=== PATIENT | female | born 1940 | race Hispanic/Latino ===

== ENCOUNTER 2016-11-05 20:42 | Inpatient (IN) | payer MEDICARE ==
[2016-11-05 20:42] VITALS: BMI 32.1
[2016-11-05] MEDS ORDERED: Sodium Chloride 0.9% 1,000 ML IV STA (21:06)
--- NOTE | 2016-11-05 21:14 | ED PDOC ---
Upper Extremity Pain/Injury Time Seen by Provider: 11/05/16 20:51 Chief Complaint (Nursing): Finger,Hand,&Wrist Chief Complaint (Provider): fall-injury History Per: Patient History/Exam Limitations: no limitations Additional Complaint(s): 76yo F in ED for eval of left wrist injury sustained today after a trip and fall down one step going home-pt states she cane in one hand and bag of ice c ream in the other. pt admits to head injury-denies: LOC, dizziness, change in mentation speech, gait, weakness ,numbness vision changes. pt states she injured her left wrist-unable to range wrist due to pain no numbness/tingling to wrist. right hand dominant. pt with hx of DM-admits to eating sweets and soda prior to ED arrival. Past Medical History Reviewed: Historical Data, Nursing Documentation, Vital Signs Vital Signs: Last Vital Signs Temp 99 F 11/05/16 20:46 Pulse 97 H 11/05/16 20:46 Resp 20 11/05/16 20:46 BP 134/69 11/05/16 20:46 Pulse Ox 98 11/05/16 20:46 - Medical History PMH: Anxiety, Arthritis, COPD, Depression, Diabetes (type II), HTN, Hypercholesterolemia, Chronic Kidney Disease Denies: HIV - Surgical History Surgical History: Tonsillectomy - Family History Family History: States: Unknown Family Hx - Home Medications Home Medications: Ambulatory Orders Medication Instructions Recorded Aspirin [Ecotrin] 81 mg PO DAILY #0 tabec 11/15/15 Atorvastatin [Lipitor] 40 mg PO DAILY #0 tab 11/15/15 Cyanocobalamin [Vitamin B12 1000 1 tab PO DAILY #0 tab 11/15/15 mcg Tab] Metoprolol Tartrate [Lopressor] 12.5 mg PO Q12 #0 tab 11/15/15 Multimineral/Multivitamin 1 tab PO DAILY #0 tab 11/15/15 [Therapeutic-M Tab] Multivit-Min/FA/Lycopen/Lutein 1 tab PO DAILY #0 tablet 11/15/15 [Centrum Silver Tablet] Repaglinide [Prandin] 2 mg PO TIDWM #0 tab 11/15/15 Valsartan [Diovan] 80 mg PO DAILY #0 tab 11/15/15 Sevelamer Carbonate [Renvela] 800 mg PO TID 01/04/16 Acetaminophen [Tylenol 325mg tab] 650 mg PO Q6H PRN #0 tab 01/08/16 PARoxetine [Paxil] 20 mg PO DAILY #0 tab 01/08/16 Cyanocobalamin [Vitamin B12 100 100 mcg PO DAILY 08/31/16 mcg Tab] Multivit-Min/Iron/Folic/Lutein 1 tab PO DAILY 08/31/16 [Centrum Silver Women Tablet] Potassium Chloride [K-Dur 20 mEq 20 meq PO DAILY 08/31/16 ER Tab] Sodium Bicarbonate Tab [Sodium 650 mg PO DAILY 08/31/16 Bicarbonate Tab] Ferrous Sulfate [Feosol] 325 mg PO BID #60 tab 09/03/16 GlipiZIDE SR [Glucotrol XL] 10 mg PO ACBD@0730,1630 #60 tab 09/03/16 Insulin Detemir [Levemir] 24 units SC HS #1 vial 09/03/16 Insulin Lispro [Humalog Kwikpen 12 unit SQ AC #1 insuln.pen 09/03/16 U-100] Nitrofurantoin Macrocrystals 100 mg PO BID 7 Days 09/03/16 [Macrobid] Pen Needle, Diabetic [Insulin Pen 1 each MC ACHS #90 dis.needle 09/03/16 Needle] - Allergies Allergies/Adverse Reactions: Allergies Allergy/AdvReac Type Severity Reaction Status Date / Time No Known Allergies Allergy Verified 01/04/16 20:19 Review of Systems ROS Statement: Except As Marked, All Systems Reviewed And Found Negative Constitutional: Negative for: Fever, Chills, Weakness, Malaise Eyes: Negative for: Vision Change Cardiovascular: Negative for: Chest Pain, Palpitations, Orthopnea Respiratory: Negative for: Cough, Shortness of Breath, Hemoptysis Gastrointestinal: Negative for: Nausea, Vomiting Neurological: Negative for: Weakness, Numbness, Incoordination, Change in Speech , Confusion, Seizures, Altered Mental Status, Headache, Dizziness Physical Exam - Reviewed Nursing Documentation Reviewed: Yes Vital Signs Reviewed: Yes - Physical Exam Appears: Positive for: Non-toxic, No Acute Distress, Uncomfortable Head Exam: Positive for: NORMAL INSPECTION, NORMOCEPHALIC. Negative for: ATRAUMATIC (hemtoma noted to occiptal area with abrasion nontender. ) Skin: Positive for: Normal Color, Warm, DRY Eye Exam: Positive for: EOMI, Normal appearance, PERRL Neck: Positive for: Normal, Painless ROM Cardiovascular/Chest: Positive for: Regular Rate, Rhythm Respiratory: Positive for: CNT, Normal Breath Sounds Back: Positive for: Normal Inspection Extremity: Positive for: Other (left UE: wrist-tenderness dec ROM at wirst, and pain with ROM of fingers. 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 Negative for: Motor/Sensory Deficits - Laboratory Results Result Diagrams: 11/05/16 22:09 11/05/16 22:09 - ECG O2 Sat by Pulse Oximetry: 98 - Radiology X-Ray: Interpreted by Me X-Ray Interpretation: Fracture (to radius -code ortho) - Progress ED Course And Treament: EKG, FS, and xray FS>500- however did eat ice cream and soda prior to ED arrival. will given 1 Liter of NS and get CBC/CMP/VBG Pt with distal radial fracture-will contact ESTELITA Ceron MD - however unable to reach. pt will be admitted under family medicine due to uncontrolled blood sugar , pt was given 6 units of insulin FS improved to <400. reduction attempted to wrist however not fully reduced/aligned. pt will be admitted for orthopedic eval due to poor healing potential since she is a diabetics. pt also with abnormal BUN/Creatine and abnormal VBG-no evidence of DKA at this time. Medical Decision Making Medical Decision Making: pt will be admitted to family medicine due to high blood sugar(uncontrolled DM) and distal radial fx. Disposition - Clinical Impression Clinical Impression: Uncontrolled diabetes mellitus, Distal radial fracture - Patient ED Disposition Is Patient to be Admitted: Yes - Disposition Disposition Time: 00:39 Condition: FAIR - Pt Status Changed To: Hospital Disposition Of: Inpatient - Admit Certification Admit to Inpatient:: After my assessment, the patient will require hospitalization for at least two midnights. This is because of the severity of symptoms shown, intensity of services needed, and/or the medical risk in this patient being treated as an outpatient. - POA Present On Arrival: Poor Glycemic Control
[2016-11-05 22:15] LABS: VENOUS BLOOD GAS BASE EXCESS -8.6 mmol/L (0.0-2.0); VENOUS BLOOD GAS PCO2 37 mmHg (40-60); VENOUS BLOOD PH 7.28 (7.32-7.43)
[2016-11-05 22:16] LABS: BASO # 0.1 K/uL (0.0-0.2); BASO % 0.5 % (0.0-2.0); EOS # 0.1 K/uL (0.0-0.7); EOS % 1.3 % (0.0-4.0); HEMATOCRIT 35.2 % (34.0-47.0); LYMPH # 1.5 K/uL (1.0-4.3); LYMPH % 14.2 % (20.0-40.0); MEAN CELL VOLUME 83.2 fl (81.0-99.0); MEAN CORPUSCULAR HEMOGLOBIN 26.5 pg (27.0-31.0); MEAN CORPUSCULAR HGB CONC 31.8 g/dL (33.0-37.0); MEAN PLATELET VOLUME 8.1 fl (7.2-11.7); MONO # 1.2 K/uL (0.0-0.8); MONO % 11.5 % (0.0-10.0); NEUT # 7.7 K/uL (1.8-7.0); NEUT % 72.5 % (50.0-75.0); NRBC % 0.1 % (0.0-0.0); RED CELL DISTRIBUTION WIDTH 14.1 % (11.5-14.5); WHITE BLOOD COUNT 10.6 K/uL (4.8-10.8)
[2016-11-05 22:24] LABS: ALB/GLOB RATIO 0.9 (1.0-2.1); BILIRUBIN,TOTAL 0.3 mg/dl (0.2-1.3); CALCIUM 9.4 mg/dL (8.4-10.2); POTASSIUM 5.2 MMOL/L (3.6-5.0); TOTAL PROTEIN 7.3 G/DL (6.3-8.2)
[2016-11-05] MEDS ORDERED: Insulin Regular 100 units/ml IV STA (22:41)
[2016-11-05] MEDS ORDERED: Insulin Regular 100 units/ml ONE (22:45)
[2016-11-06] MEDS ORDERED: Glucagon Recombinant 1 mg Inj IM PRN (01:37)
[2016-11-06] MEDS ORDERED: Dextrose 50% SYRINGE Inj (50 ml) IV PRN (01:37)
[2016-11-06] MEDS ORDERED: Sodium Chloride 0.9% 1,000 ML IV SCH (01:45)
--- NOTE | 2016-11-06 01:55 | CP.PCM.HP ---
History of Present Illness - History of Present Illness History of Present Illness: 75 yo F with PMHx HLD, COPD, Anxiety/Depression, CKD, HTN, DM II presented to ED after fall onto left wrist after a trip and fall down one step going home. Patient states she had cane in one hand and bag of ice cream in the other. Patient admits to head injury though denies LOC, dizziness, change in mentation speech, gait, weakness, numbness, vision changes. Left wrist with pain limiting motion though no numbness/tingling (patient is right hand dominant). Patient was also found to have hyperglycemia and hyperkalemia. Patient admits to eating sweets and soda prior to ED arrival. Patient has NOT been using insulin at home due to "don't know how to use the insulin". Denies chest pain, abdominal pain, nausea, vomiting, dyspnea. PMD: Dr. Ceron Meds: as per chart Allergies: NKDA Surgeries: none Family hx: non-contributory Social: denies smoking, EtOH, drugs. 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 Alternate using cane or walker to ambulate. ED Course: Vitals stable EKG, FS, and xray ordered FS>500 1 Liter of NS and CBC/CMP/VBG ordered Xray notable for distal radial fracture of left upper extremity. Pt was given 10 units of insulin FS improved to 314. VBG not indicative of DKA. Reduction attempted to wrist however not fully reduced/aligned. Dr. Carrizales was contacted by ED, recommended CT Scan and will evaluate patient tomorrow. Abnormal BUN/Creatinine 35/2.7, worsened than previous readings, asymptomatic Present on Admission - Present on Admission Any Indicators Present on Admission: Yes History of Uncontrolled Diabetes: Yes Review of Systems - Review of Systems All systems: reviewed and no additional remarkable complaints except (as mentioned per HPI) Past Patient History - Infectious Disease Hx of Infectious Diseases: None - Past Medical History & Family History Past Medical History?: Yes - Past Social History Smoking Status: Never Smoked - CARDIAC Hx Cardiac Disorders: Yes - PULMONARY Hx Chronic Obstructive Pulmonary Disease (COPD): Yes - NEUROLOGICAL Hx Neurological Disorder: No - HEENT Hx HEENT Problems: No - RENAL Hx Chronic Kidney Disease: Yes - ENDOCRINE/METABOLIC Hx Endocrine Disorders: Yes - HEMATOLOGICAL/ONCOLOGICAL Hx Human Immunodeficiency Virus (HIV): No - INTEGUMENTARY Hx Dermatological Problems: No - MUSCULOSKELETAL/RHEUMATOLOGICAL Hx Arthritis: Yes - GASTROINTESTINAL Hx Gastrointestinal Disorders: No - GENITOURINARY/GYNECOLOGICAL Hx Genitourinary Disorders: No - PSYCHIATRIC Hx Anxiety: Yes Hx Depression: Yes - SURGICAL HISTORY Hx Tonsillectomy: Yes - ANESTHESIA Hx Anesthesia: No Hx Anesthesia Reactions: No Hx Malignant Hyperthermia: No Meds Allergies/Adverse Reactions: Allergies Allergy/AdvReac Type Severity Reaction Status Date / Time No Known Allergies Allergy Verified 01/04/16 20:19 Physical Exam - Constitutional Appears: Well, Non-toxic, No Acute Distress - Head Exam Head Exam: NORMAL INSPECTION, NORMOCEPHALIC Additional comments: hematoma noted to left occiptal area with abrasion nontender. - Eye Exam Eye Exam: EOMI, Normal appearance, PERRL - ENT Exam ENT Exam: Mucous Membranes Moist - Neck Exam Neck exam: Positive for: Normal Inspection - Respiratory Exam Respiratory Exam: Clear to Auscultation Bilateral, NORMAL BREATHING PATTERN. absent: Decreased Breath Sounds, Rales, Rhonchi, Wheezes - Cardiovascular Exam Cardiovascular Exam: RRR, +S1, +S2 - GI/Abdominal Exam GI & Abdominal Exam: Normal Bowel Sounds, Soft. absent: Tenderness - Extremities Exam Extremities exam: Positive for: normal inspection. Negative for: calf tenderness, pedal edema - Expanded Upper Extremities Exam Left Forearm Wrist exam: absent: full ROM (left forearm splinted, able to move fingers, cap refill normal, sensation intact) - Back Exam Back exam: NORMAL INSPECTION - Neurological Exam Neurological exam: Alert, Oriented x3 - Psychiatric Exam Psychiatric exam: Normal Affect, Normal Mood - Skin Skin Exam: Dry, Intact, Normal Color, Warm Results - Vital Signs Recent Vital Signs: Last Vital Signs Temp 98.1 F 11/06/16 01:16 Pulse 73 11/06/16 01:16 Resp 15 11/06/16 01:16 BP 103/57 L 11/06/16 01:16 Pulse Ox 96 11/06/16 00:45 - Labs Result Diagrams: 11/05/16 22:09 11/05/16 22:09 Assessment & Plan - Assessment and Plan (Free Text) Assessment: 75 yo F with PMHx HLD, COPD, Anxiety/Depression, CKD (Stage 4), HTN, DM II admitted for hyperglycemia and hyperkalemia with left distal radial fracture. Plan: DM II/hyperglycemia -Asymptomatic, non-compliant with insulin therapy, most recent POC 314 -No evidence of DKA -accuchecks/ACHS -SSI -Most recent HgbA1c: 13.6 -NPO until surgeon evaluates and if permissible, diabetic consistent diet -clinical unit educator and endocrinology consult to be considered -Will restart home meds at this time Hyperkalemia - Mild - Insulin to decrease potassium - If continues to be elevated consider other modalities of treatment Left distal radial fracture - Neurovascular intact, failed attempt at reduction at bedside. - Tylenol/Morphine PRN pain - f/u official reads of xrays - Ortho consulted, Dr. Carrizales, appreciate recommendations - PT eval/treat CKD (Stage 4) -Acute on Chronic presentation with increase in BUN/Cr and hyperkalemia on admission -Hydrate via NS HTN -Controlled stable at this time -c/w home meds HLD -c/w statin Anxiety/Depression -Controlled, stable -c/w home meds DVT ppx -SCDs for now until evaluation of surgeon - Date & Time Date: 11/06/16 Time: 02:06
--- NOTE | 2016-11-06 02:12 | CT ---
EXAM: CT Left Upper Extremity Without Intravenous Contrast, Wrist CLINICAL HISTORY: 76 years old, female; Injury or trauma; Fall; Initial encounter; Blunt trauma (contusions or hematomas and fracture, traumatic injury; Closed fracture; Wrist; Left; Bone fracture not specified; Additional info: Wrist fracture TECHNIQUE: Axial computed tomography images of the left wrist without intravenous contrast. This CT exam was performed using one or more of the following dose reduction techniques: automated exposure control, adjustment of the mA and/or kV according to patient size, and/or use of iterative reconstruction technique. Coronal and sagittal reformatted images were created and reviewed. COMPARISON: No relevant prior studies available. FINDINGS: Bones/joints: Comminuted extraarticular fracture distal radial metaphysis. Posterior and lateral displacement of principle fracture fragment. Mild impaction of fracture site. Displaced avulsion fractures of ulnar styloid. Tiny avulsion fracture or calcification along triquetrum. Small ossicle dorsal to scaphoid. Moderate to severe degenerative changes of first carpometacarpal joint. Small cysts within scaphoid. No dislocation. Soft tissues: Soft tissue swelling/stranding about wrist. IMPRESSION: 1. Distal radial and ulnar fractures. 2. Incidental/non-acute findings are described above.
[2016-11-06 06:43] LABS: RBC URINE 203 /hpf (0-3); URINE BACTERIA MOD (<OCC); URINE BILIRUBIN NEGATIVE (NEGATIVE); URINE BLOOD MODERATE (NEGATIVE); URINE GLUCOSE (UA) >=500 mg/dL (Normal); URINE KETONE NEGATIVE (NEGATIVE); URINE LEUKOCYTE ESTERASE MOD Leu/uL (Negative); URINE PROTEIN 100 mg/dL (NEGATIVE); URINE UROBILINOGEN 0.2-1.0 mg/dL (0.2-1.0); WBC CLUMPS MANY /hpf; WBC URINE 13963 /hpf (0-5)
[2016-11-06 06:44] LABS: URINE COLOR YELLOW (YELLOW)
[2016-11-06] MEDS: Insulin Regular 100 units/ml SC SCH ×5 (07:53→21:34)
[2016-11-06 08:20] LABS: BASO # 0.1 K/uL (0.0-0.2); BASO % 0.6 % (0.0-2.0); EOS # 0.2 K/uL (0.0-0.7); EOS % 1.6 % (0.0-4.0); LYMPH # 2.7 K/uL (1.0-4.3); LYMPH % 23.8 % (20.0-40.0); MEAN CELL VOLUME 82.8 fl (81.0-99.0); MEAN CORPUSCULAR HEMOGLOBIN 26.3 pg (27.0-31.0); MEAN CORPUSCULAR HGB CONC 31.8 g/dL (33.0-37.0); MEAN PLATELET VOLUME 8.3 fl (7.2-11.7); MONO # 1.2 K/uL (0.0-0.8); MONO % 10.7 % (0.0-10.0); NEUT # 7.1 K/uL (1.8-7.0); NEUT % 63.3 % (50.0-75.0); RED CELL DISTRIBUTION WIDTH 13.9 % (11.5-14.5); WHITE BLOOD COUNT 11.3 K/uL (4.8-10.8)
[2016-11-06 08:39] LABS: ALB/GLOB RATIO 0.9 (1.0-2.1); BILIRUBIN,TOTAL 0.3 mg/dl (0.2-1.3); CALCIUM 9.4 mg/dL (8.4-10.2); TOTAL PROTEIN 7.3 G/DL (6.3-8.2)
--- NOTE | 2016-11-06 08:40 | RAD ---
PROCEDURE: Right Wrist Radiographs. HISTORY: wrist pain COMPARISON: None. FINDINGS: BONES: Impaction fracture of the distal radius with dorsal angulation. JOINTS: Normal. No dislocation. SOFT TISSUES: Normal. OTHER FINDINGS: None. IMPRESSION: Impaction fracture of the distal radius with dorsal angulation.
--- NOTE | 2016-11-06 09:36 | RAD ---
PROCEDURE: Right Wrist Radiographs. HISTORY: post reduction COMPARISON: None. FINDINGS: BONES: POst casting of dislaced distal radius fractre. JOINTS: Normal. No dislocation. SOFT TISSUES: Normal. OTHER FINDINGS: None. IMPRESSION: POst casting of dislaced distal radius fractre.
--- NOTE | 2016-11-06 09:45 | CP.PCM.CON ---
History of Present Illness - History of Present Illness History of Present Illness: ID: 76 yo female CC: L wrist pain HPI 9 yo female wioth hx of diabetes sustained A FOOSH injury last PM. No LOC, no neurologic concomitants. Pt presents with p[aim amd restircted ROM L wrist. and deformity. Xrays reveal displaced/angulated distal radius fx Pt also with signs of decreasedd sensation 1st 3 fingers L hand. Pt splionted at time of encouinter. Past Patient History - Infectious Disease Hx of Infectious Diseases: None - Past Medical History & Family History Past Medical History?: Yes - Past Social History Smoking Status: Former Smoker - CARDIAC Hx Cardiac Disorders: Yes Hx Hypercholesterolemia: Yes Hx Hypertension: Yes - PULMONARY Hx Respiratory Disorders: Yes Hx Chronic Obstructive Pulmonary Disease (COPD): Yes Hx Pneumonia: Yes - NEUROLOGICAL Hx Neurological Disorder: No - HEENT Hx HEENT Problems: Yes Other/Comment: uses eye glasses - RENAL Hx Chronic Kidney Disease: Yes Other/Comment: Chronic kidney disease - ENDOCRINE/METABOLIC Hx Endocrine Disorders: Yes Hx Diabetes Mellitus Type 2: Yes - HEMATOLOGICAL/ONCOLOGICAL Hx Blood Disorders: No Hx Human Immunodeficiency Virus (HIV): No - INTEGUMENTARY Hx Dermatological Problems: No - MUSCULOSKELETAL/RHEUMATOLOGICAL Hx Musculoskeletal Disorders: Yes Hx Falls: Yes - GASTROINTESTINAL Hx Gastrointestinal Disorders: No - GENITOURINARY/GYNECOLOGICAL Hx Genitourinary Disorders: No - PSYCHIATRIC Hx Psychophysiologic Disorder: No Hx Substance Use: No - SURGICAL HISTORY Hx Surgeries: Yes Hx Tonsillectomy: Yes - ANESTHESIA Hx Anesthesia: No Hx Anesthesia Reactions: No Hx Malignant Hyperthermia: No Meds Allergies/Adverse Reactions: Allergies Allergy/AdvReac Type Severity Reaction Status Date / Time No Known Allergies Allergy Verified 01/04/16 20:19 - Medications Medications: Current Medications Acetaminophen (Tylenol 325mg Tab) 650 mg PO Q6 PRN PRN Reason: Pain, Mild (1-3) Atorvastatin Calcium (Lipitor) 40 mg PO DAILY [place] Last Admin: 11/06/16 08:49 Dose: Not Given Dextrose (Dextrose 50% Inj) 0 ml IV STAT PRN; Protocol PRN Reason: Hyglycemia Protocol Dextrose (Glutose 15) 0 gm PO ONCE PRN; Protocol PRN Reason: Hypoglycemia Protocol Glucagon (Glucagen Diagnostic Kit) 0 mg IM STAT PRN; Protocol PRN Reason: Hypoglycemia Protocol Sodium Chloride (Sodium Chloride 0.9%) 1,000 mls @ 125 mls/hr IV .Q8H [facility] Last Admin: 11/06/16 03:34 Dose: 125 mls/hr Insulin Human Regular (Humulin R) 0 units SC ACHS [place] PRN Reason: Protocol Last Admin: 11/06/16 07:53 Dose: 4 unit Morphine Sulfate (Morphine) 2 mg IVP Q4 PRN PRN Reason: Pain, moderate (4-7) Last Admin: 11/06/16 09:10 Dose: 2 mg Morphine Sulfate (Morphine) 4 mg IVP Q6 PRN PRN Reason: Pain, severe (8-10) Last Admin: 11/06/16 01:03 Dose: 4 mg Paroxetine HCl (Paxil) 20 mg PO DAILY [facility] Last Admin: 11/06/16 08:48 Dose: Not Given Valsartan (Diovan) 80 mg PO DAILY [facility] Last Admin: 11/06/16 09:04 Dose: Not Given Physical Exam - Expanded Skin Exam Expanded Description of Rash: Fluctuant, Purpura - Additional Findings Additional findings: Musculoskeltal Exam stance/gait- deferred encounter accomplished at bedside N/V intact L forearm/wrist splinted in volar splint pot with hypesthesia first threee fingers L habd Imp Coimminuted/dispaced L distal radius fx carpal tunnel syndrome L wrist ( post traumatic) Results - Vital Signs Recent Vital Signs: Last Vital Signs Temp 97.8 F 11/06/16 07:29 Pulse 75 11/06/16 07:29 Resp 18 11/06/16 07:29 BP 123/66 11/06/16 07:29 Pulse Ox 99 11/06/16 07:29 - Labs Result Diagrams: 11/06/16 06:30 11/06/16 06:00 Labs: Laboratory Results - last 24 hr 11/06/16 11/06/16 11/06/16 06:00 06:20 06:30 WBC 11.3 H RBC 4.23 Hgb 11.1 L Hct 35.0 MCV 82.8 MCH 26.3 L MCHC 31.8 L RDW 13.9 Plt Count 355 MPV 8.3 Neut % (Auto) 63.3 Lymph % (Auto) 23.8 [place] % (Auto) 10.7 H Eos % (Auto) 1.6 Baso % (Auto) 0.6 Neut # 7.1 H Lymph # 2.7 [place] # 1.2 H Eos # 0.2 Baso # 0.1 PT INR APTT Sodium 136 Potassium 5.0 Chloride 108 H Carbon Dioxide 17 L Anion Gap 16 BUN 33 H Creatinine 2.6 H Est GFR ( Amer) 22 Est GFR (Non-Af Amer) 18 POC Glucose (mg/dL) Random Glucose 247 H Calcium 9.4 Total Bilirubin 0.3 AST 16 ALT 19 Alkaline Phosphatase 119 Total Protein 7.3 Albumin 3.5 Globulin 3.8 Albumin/Globulin Ratio 0.9 L Urine Color Yellow Urine Clarity Turbid Urine pH 6.0 Ur Specific [place] 1.007 Urine Protein 100 Urine Glucose (UA) >=500 Urine Ketones Negative Urine Blood Moderate Urine Nitrate Negative Urine Bilirubin Negative Urine Urobilinogen 0.2-1.0 Ur Leukocyte Esterase Mod Urine RBC (Auto) 203 H Urine WBC Clumps (Auto) Many H Urine Microscopic WBC 35446 H Urine Bacteria Mod H Urine Yeast (Budding) Many H 11/06/16 11/06/16 06:30 06:38 WBC RBC Hgb Hct MCV MCH MCHC RDW Plt Count MPV Neut % (Auto) Lymph % (Auto) [place] % (Auto) Eos % (Auto) Baso % (Auto) Neut # Lymph # [place] # Eos # Baso # PT 10.0 INR 0.96 APTT 31.0 Sodium Potassium Chloride Carbon Dioxide Anion Gap BUN Creatinine Est GFR ( Amer) Est GFR (Non-Af Amer) POC Glucose (mg/dL) 260 H Random Glucose Calcium Total Bilirubin AST ALT Alkaline Phosphatase Total Protein Albumin Globulin Albumin/Globulin Ratio Urine Color Urine Clarity Urine pH Ur Specific [place] Urine Protein Urine Glucose (UA) Urine Ketones Urine Blood Urine Nitrate Urine Bilirubin Urine Urobilinogen Ur Leukocyte Esterase Urine RBC (Auto) Urine WBC Clumps (Auto) Urine Microscopic WBC Urine Bacteria Urine Yeast (Budding) - Impressions Impression: Imaging: CT scan- reveals displaced/comminutyed distal radius fx Assessment & Plan - Assessment and Plan (Free Text) Assessment: A-0 displaced/comminuted distal radius fx P- to OR for ORIF displaced/comminuted distal radius fx To OR when cleared by DR Woody/Romo pros cons risk and befiots of ORIF displaced distal radius fx discussed at [facility] with pt informed consdent obtained Various treartmentsd discussed advantages of ORIF dsisplaced distal radfius fx and carpal tunnel release discussed at legnth To OR when cleared medically
[2016-11-06] MEDS ORDERED: Docusate-Senna 50 mg-8.6 mg Tab PO PRN (10:17)
--- NOTE | 2016-11-06 10:22 | CARD ---
APPROVED REPORT EKG Measurement Heart [id number] DC 166P-3 [id number] <Conclusion> Normal sinus rhythm Inferior infarct, age undetermined Possible Anterior infarct, age undetermined Abnormal ECG
--- NOTE | 2016-11-06 11:11 | RAD ---
PROCEDURE: CHEST RADIOGRAPH, 1 VIEW HISTORY: clearance for surgery COMPARISON: None available. FINDINGS: LUNGS: Clear. PLEURA: No pneumothorax or pleural fluid seen. CARDIOVASCULAR: Normal. OSSEOUS STRUCTURES: No significant abnormalities. VISUALIZED UPPER ABDOMEN: Normal. OTHER FINDINGS: None. IMPRESSION: No active disease.
--- NOTE | 2016-11-06 11:25 | CP.PCM.PN ---
Subjective - Date & Time of Evaluation Date of Evaluation: 11/06/16 Time of Evaluation: 07:40 - Subjective Subjective: The patient is a 75 y/o woman w/ PMHx of HLD, COPD, Anxiety/Depression, CKD, HTN , DM II presented to ED after fall onto left wrist after a trip and fall down one step going home. The patient was seen this morning. There are no acute events overnight. The patient is not in acute distress. The patient complains only pain of her left hand where the fracture is located. The patient has a small bump on the left side on the back of her head but denies any pain. The patient has no other complaints. The patient denies headaches, dizziness, chest pain, dyspnea, abdominal pain, nausea, vomiting, diarrhea, dysuria, and fever. Objective - Vital Signs/Intake and Output Vital Signs (last 24 hours): Temp Pulse Resp BP Pulse Ox 97.8 F 75 18 123/66 99 11/06/16 07:29 11/06/16 07:29 11/06/16 07:29 11/06/16 07:29 11/06/16 07:29 - Medications Medications: Current Medications Acetaminophen (Tylenol 325mg Tab) 650 mg PO Q6 PRN PRN Reason: Pain, Mild (1-3) Atorvastatin Calcium (Lipitor) 40 mg PO DAILY [facility] Last Admin: 11/06/16 08:49 Dose: Not Given Dextrose (Dextrose 50% Inj) 0 ml IV STAT PRN; Protocol PRN Reason: Hyglycemia Protocol Dextrose (Glutose 15) 0 gm PO ONCE PRN; Protocol PRN Reason: Hypoglycemia Protocol Glucagon (Glucagen Diagnostic Kit) 0 mg IM STAT PRN; Protocol PRN Reason: Hypoglycemia Protocol Sodium Chloride (Sodium Chloride 0.9%) 1,000 mls @ 125 mls/hr IV .Q8H [facility] Last Admin: 11/06/16 03:34 Dose: 125 mls/hr Ceftriaxone Sodium 1 gm/ (Sodium Chloride) 100 mls @ 100 mls/hr IVPB DAILY [facility] Insulin Human Regular (Humulin R) 0 units SC ACHS [facility] PRN Reason: Protocol Last Admin: 11/06/16 07:53 Dose: 4 unit Morphine Sulfate (Morphine) 2 mg IVP Q4 PRN PRN Reason: Pain, moderate (4-7) Last Admin: 11/06/16 09:10 Dose: 2 mg Morphine Sulfate (Morphine) 4 mg IVP Q6 PRN PRN Reason: Pain, severe (8-10) Last Admin: 11/06/16 01:03 Dose: 4 mg Paroxetine HCl (Paxil) 20 mg PO DAILY [facility] Last Admin: 11/06/16 08:48 Dose: Not Given Senna/Docusate Sodium (Senokot S 50 Mg-8.6 Mg) 2 tab PO HS PRN PRN Reason: Constipation Valsartan (Diovan) 80 mg PO DAILY [facility] Last Admin: 11/06/16 09:04 Dose: Not Given - Labs Labs: 11/06/16 06:30 11/06/16 06:00 PT 10.0 SECONDS (9.6-11.2) 11/06/16 06:30 INR 0.96 (0.92-1.08) 11/06/16 06:30 APTT 31.0 SECONDS (23.3-32.5) 11/06/16 06:30 - Constitutional Appears: No Acute Distress - Head Exam Head Exam: NORMOCEPHALIC Additional comments: small bump on left occipital area, no laceration, no contusion - ENT Exam ENT Exam: Mucous Membranes Moist - Respiratory Exam Respiratory Exam: Clear to Ausculation Bilateral. absent: Accessory Muscle Use , Chest Wall Tenderness, Decreased Breath Sounds, Prolonged Expiratory Phase, Rales, Rhonchi, Wheezes, Respiratory Distress, Stridor - Cardiovascular Exam Cardiovascular Exam: REGULAR RHYTHM, RRR. absent: Tachycardia - GI/Abdominal Exam GI & Abdominal Exam: Soft, Normal Bowel Sounds. absent: Distended, Tenderness - Extremities Exam Extremities Exam: absent: Calf Tenderness, Tenderness - Neurological Exam Neurological Exam: Alert, Awake, Oriented x3 - Skin Skin Exam: Dry, Intact, Normal Color, Warm Assessment and Plan - Assessment and Plan (Free Text) Assessment: The patient is a 75 y/o woman w/ PMHx of HLD, COPD, Anxiety/Depression, CKD, HTN , DM II presented to ED after fall onto left wrist after a trip and fall down one step going home Plan: 1. Left distal radial fracture - Neurovascular intact, failed attempt at reduction at bedside. - Tylenol 650 mg PO Q6h prn for pain - Morphine 2 mg IV Q4h and 4 mg IV Q6 prn for pain - Percocet 2 tab PO Q4 prn - Wrist X-ray: displaced distal radius fracture - Ortho consulted, Dr. Carrizales, recommendations appreciated - PT eval/treat ordered - NPO after midnight for OR tomorrow - Cardiology consulted, Dr. Griffiths; recommendations appreciated, cleared for surgery - CXR: no active disease - Medically optimized, cleared by cardiology, receiving antibiotics, lovenox held, CXR, coags, and EKG WNL for surgery tomorrow 2. DM II/hyperglycemia - Asymptomatic, non-compliant with insulin therapy - fingerstick 232 - No evidence of DKA - accuchecks/ACHS - Medium dose SSI - HgbA1c 08/31/2016: 13.6 - heart healthy, moderate consistent carbohydrate diet 3. Hyperkalemia - resolved - Mild - Insulin to decrease potassium - K+: 5.0 4. Asymptomatic Bacturia - UA: neg nitrates, moderate leukocyte esterase, moderate bacteria - denies dysuria - ceftriaxone 1 gm IV daily 5. CKD (Stage 4) - Acute on Chronic - BUN/Cr: 33/2.6 - IVF NS @ 125mL/hr 6. HTN - Controlled, stable - continue with home meds: Valsartan 80 mg PO daily 7. HLD - continue with atorvastatin 40 mg PO daily 8. Anxiety/Depression - controlled, stable - continue with home meds: Paroxetine 20 mg PO daily 9. DVT ppx - SCDs - hold lovenox until after OR
[2016-11-06] MEDS ORDERED: Oxycodone/Acetaminophen 5/325 mg Tab PO PRN (11:41)
--- NOTE | 2016-11-06 12:19 | CP.PCM.CON ---
History of Present Illness - History of Present Illness History of Present Illness: THE PATIENT IS A 76 YEAR OLD FEMALE WHO TRIPPED ON THE STAIRS YESTERDAY AND FRACTURED HER LEFT WRIST. SHE ALSO HAS A HISTORY OF HYPERTENSION, HYPERLIPIDEMIA, DIABETES MELLITUS, CKD, ANEMIA AND COPD. SHE WAS ADMITTED TO [facility] LAST YEAR AND I WAS ASKED TO SEE HER FOR AN EKG THAT WAS READ AN OLD IWMI BUT SHE DENIED ANY CAD HISTORY. A NUCLEAR STRESS TEST AND AN ECHOCARDIOGRAM WERE DONE IN DECEMBER 2015 THAT WERE BOTH NEGATIVE. CARDIOLOGY IS ASKED TO SEE HER FOR PRE-OP CARDIAC CLEARANCE. SHE DENIES CHEST PAIN, PALPITATIONS, SOB OR LOC. Past Patient History - Infectious Disease Hx of Infectious Diseases: None - Past Medical History & Family History Past Medical History?: Yes - Past Social History Smoking Status: Former Smoker - CARDIAC Hx Cardiac Disorders: Yes Hx Hypercholesterolemia: Yes Hx Hypertension: Yes - PULMONARY Hx Respiratory Disorders: Yes Hx Chronic Obstructive Pulmonary Disease (COPD): Yes Hx Pneumonia: Yes - NEUROLOGICAL Hx Neurological Disorder: No - HEENT Hx HEENT Problems: Yes Other/Comment: uses eye glasses - RENAL Hx Chronic Kidney Disease: Yes Other/Comment: Chronic kidney disease - ENDOCRINE/METABOLIC Hx Endocrine Disorders: Yes Hx Diabetes Mellitus Type 2: Yes - HEMATOLOGICAL/ONCOLOGICAL Hx Blood Disorders: No Hx Human Immunodeficiency Virus (HIV): No - INTEGUMENTARY Hx Dermatological Problems: No - MUSCULOSKELETAL/RHEUMATOLOGICAL Hx Musculoskeletal Disorders: Yes Hx Falls: Yes - GASTROINTESTINAL Hx Gastrointestinal Disorders: No - GENITOURINARY/GYNECOLOGICAL Hx Genitourinary Disorders: No - PSYCHIATRIC Hx Psychophysiologic Disorder: No Hx Substance Use: No - SURGICAL HISTORY Hx Surgeries: Yes Hx Tonsillectomy: Yes - ANESTHESIA Hx Anesthesia: No Hx Anesthesia Reactions: No Hx Malignant Hyperthermia: No Meds Allergies/Adverse Reactions: Allergies Allergy/AdvReac Type Severity Reaction Status Date / Time No Known Allergies Allergy Verified 01/04/16 20:19 - Medications Medications: Current Medications Acetaminophen (Tylenol 325mg Tab) 650 mg PO Q6 PRN PRN Reason: Pain, Mild (1-3) Atorvastatin Calcium (Lipitor) 40 mg PO DAILY [facility] Last Admin: 11/06/16 11:55 Dose: 40 mg Dextrose (Dextrose 50% Inj) 0 ml IV STAT PRN; Protocol PRN Reason: Hyglycemia Protocol Dextrose (Glutose 15) 0 gm PO ONCE PRN; Protocol PRN Reason: Hypoglycemia Protocol Glucagon (Glucagen Diagnostic Kit) 0 mg IM STAT PRN; Protocol PRN Reason: Hypoglycemia Protocol Sodium Chloride (Sodium Chloride 0.9%) 1,000 mls @ 125 mls/hr IV .Q8H [facility] Last Admin: 11/06/16 03:34 Dose: 125 mls/hr Ceftriaxone Sodium 1 gm/ (Sodium Chloride) 100 mls @ 100 mls/hr IVPB DAILY [facility] Last Admin: 11/06/16 11:50 Dose: 100 mls/hr Insulin Human Regular (Humulin R) 0 units SC ACHS [facility] PRN Reason: Protocol Last Admin: 11/06/16 07:53 Dose: 4 unit Morphine Sulfate (Morphine) 2 mg IVP Q4 PRN PRN Reason: Pain, severe (8-10) Ondansetron HCl (Zofran Inj) 4 mg IVP Q4 PRN PRN Reason: Nausea/Vomiting Last Admin: 11/06/16 11:49 Dose: 4 mg Oxycodone/Acetaminophen (Percocet 5/325 Mg Tab) 2 tab PO Q4 PRN PRN Reason: Pain, moderate (4-7) Stop: 11/09/16 11:42 Paroxetine HCl (Paxil) 20 mg PO DAILY [facility] Last Admin: 11/06/16 11:55 Dose: 20 mg Senna/Docusate Sodium (Senokot S 50 Mg-8.6 Mg) 2 tab PO HS PRN PRN Reason: Constipation Valsartan (Diovan) 80 mg PO DAILY [facility] Last Admin: 11/06/16 11:54 Dose: 80 mg Physical Exam - Respiratory Exam Respiratory Exam: Clear to Auscultation Bilateral - Cardiovascular Exam Cardiovascular Exam: REGULAR RHYTHM, +S1, +S2 - Additional Findings Additional findings: EKG NSR(NO CHANGE FRON OLD EKGS READ POSSIBLE OLD IWMI BUT WORK-UP WAS NORMAL ) CXR NAD ECHO 12/23 LVEF OF 70% NUCLEAR STRESS TEST 12/23 NORMAL Results - Vital Signs Recent Vital Signs: Last Vital Signs Temp 97.8 F 11/06/16 07:29 Pulse 75 11/06/16 07:29 Resp 18 11/06/16 07:29 BP 123/66 11/06/16 07:29 Pulse Ox 99 11/06/16 07:29 - Labs Result Diagrams: 11/06/16 06:30 11/06/16 06:00 Labs: Laboratory Results - last 24 hr 11/06/16 11/06/16 11/06/16 06:00 06:20 06:30 WBC 11.3 H RBC 4.23 Hgb 11.1 L Hct 35.0 MCV 82.8 MCH 26.3 L MCHC 31.8 L RDW 13.9 Plt Count 355 MPV 8.3 Neut % (Auto) 63.3 Lymph % (Auto) 23.8 [place] % (Auto) 10.7 H Eos % (Auto) 1.6 Baso % (Auto) 0.6 Neut # 7.1 H Lymph # 2.7 [place] # 1.2 H Eos # 0.2 Baso # 0.1 PT INR APTT Sodium 136 Potassium 5.0 Chloride 108 H Carbon Dioxide 17 L Anion Gap 16 BUN 33 H Creatinine 2.6 H Est GFR ( Amer) 22 Est GFR (Non-Af Amer) 18 POC Glucose (mg/dL) Random Glucose 247 H Calcium 9.4 Total Bilirubin 0.3 AST 16 ALT 19 Alkaline Phosphatase 119 Total Protein 7.3 Albumin 3.5 Globulin 3.8 Albumin/Globulin Ratio 0.9 L Urine Color Yellow Urine Clarity Turbid Urine pH 6.0 Ur Specific [place] 1.007 Urine Protein 100 Urine Glucose (UA) >=500 Urine Ketones Negative Urine Blood Moderate Urine Nitrate Negative Urine Bilirubin Negative Urine Urobilinogen 0.2-1.0 Ur Leukocyte Esterase Mod Urine RBC (Auto) 203 H Urine WBC Clumps (Auto) Many H Urine Microscopic WBC 96284 H Urine Bacteria Mod H Urine Yeast (Budding) Many H 11/06/16 11/06/16 11/06/16 06:30 06:38 10:27 WBC RBC Hgb Hct MCV MCH MCHC RDW Plt Count MPV Neut % (Auto) Lymph % (Auto) [place] % (Auto) Eos % (Auto) Baso % (Auto) Neut # Lymph # [place] # Eos # Baso # PT 10.0 INR 0.96 APTT 31.0 Sodium Potassium Chloride Carbon Dioxide Anion Gap BUN Creatinine Est GFR ( Amer) Est GFR (Non-Af Amer) POC Glucose (mg/dL) 260 H 232 H Random Glucose Calcium Total Bilirubin AST ALT Alkaline Phosphatase Total Protein Albumin Globulin Albumin/Globulin Ratio Urine Color Urine Clarity Urine pH Ur Specific [place] Urine Protein Urine Glucose (UA) Urine Ketones Urine Blood Urine Nitrate Urine Bilirubin Urine Urobilinogen Ur Leukocyte Esterase Urine RBC (Auto) Urine WBC Clumps (Auto) Urine Microscopic WBC Urine Bacteria Urine Yeast (Budding) Assessment & Plan - Assessment and Plan (Free Text) Assessment: FALL WITH LEFT WRIST FRACTURE HYPERTENSION HYPERLIPIDEMIA DM CKD STABLE CARDIAC STATUS Plan: CONTINUE DIOVAN AND ATORVASTATIN THE PATIENT IS CLEARED FROM THE CARDIAC STANDPOINT FOR ORTHOPEDIC SURGERY
[2016-11-07] MEDS: Sodium Chloride 0.9% 1,000 ML IV SCH ×3 (00:33→23:25)
[2016-11-07] MEDS: Insulin Regular 100 units/ml SC SCH ×4 (06:42→22:00)
[2016-11-07 07:18] LABS: BASO % 0.4 % (0.0-2.0); EOS % 0.2 % (0.0-4.0); LYMPH # 1.4 K/uL (1.0-4.3); LYMPH % 13.9 % (20.0-40.0); MEAN CELL VOLUME 82.7 fl (81.0-99.0); MEAN CORPUSCULAR HEMOGLOBIN 26.4 pg (27.0-31.0); MEAN CORPUSCULAR HGB CONC 31.9 g/dL (33.0-37.0); MEAN PLATELET VOLUME 8.1 fl (7.2-11.7); MONO % 9.7 % (0.0-10.0); NEUT # 7.8 K/uL (1.8-7.0); NEUT % 75.8 % (50.0-75.0); WHITE BLOOD COUNT 10.3 K/uL (4.8-10.8)
[2016-11-07 08:06] LABS: CALCIUM 8.7 mg/dL (8.4-10.2); POTASSIUM 4.6 MMOL/L (3.6-5.0)
--- NOTE | 2016-11-07 08:52 | CP.PCM.PN ---
Subjective - Date & Time of Evaluation Date of Evaluation: 11/07/16 Time of Evaluation: 08:15 - Subjective Subjective: NO CHEST PAIN OR SOB Objective - Vital Signs/Intake and Output Vital Signs (last 24 hours): Temp Pulse Resp BP Pulse Ox 98.4 F 82 18 147/83 95 11/07/16 07:35 11/07/16 07:35 11/07/16 07:35 11/07/16 07:35 11/07/16 07:35 - Medications Medications: Current Medications Acetaminophen (Tylenol 325mg Tab) 650 mg PO Q6 PRN PRN Reason: Pain, Mild (1-3) Atorvastatin Calcium (Lipitor) 40 mg PO DAILY [facility] Last Admin: 11/06/16 11:55 Dose: 40 mg Dextrose (Dextrose 50% Inj) 0 ml IV STAT PRN; Protocol PRN Reason: Hyglycemia Protocol Dextrose (Glutose 15) 0 gm PO ONCE PRN; Protocol PRN Reason: Hypoglycemia Protocol Glucagon (Glucagen Diagnostic Kit) 0 mg IM STAT PRN; Protocol PRN Reason: Hypoglycemia Protocol Ceftriaxone Sodium 1 gm/ (Sodium Chloride) 100 mls @ 100 mls/hr IVPB DAILY [facility] Last Admin: 11/07/16 08:30 Dose: 100 mls/hr Sodium Chloride (Sodium Chloride 0.9%) 1,000 mls @ 80 mls/hr IV .[id number] [facility] Stop: 11/08/16 14:55 Last Admin: 11/07/16 00:33 Dose: 80 mls/hr Insulin Human Regular (Humulin R) 0 units SC ACHS [facility] PRN Reason: Protocol Last Admin: 11/07/16 06:42 Dose: Not Given Morphine Sulfate (Morphine) 2 mg IVP Q4 PRN PRN Reason: Pain, severe (8-10) Last Admin: 11/07/16 07:21 Dose: 2 mg Ondansetron HCl (Zofran Inj) 4 mg IVP Q4 PRN PRN Reason: Nausea/Vomiting Last Admin: 11/06/16 11:49 Dose: 4 mg Oxycodone/Acetaminophen (Percocet 5/325 Mg Tab) 2 tab PO Q4 PRN PRN Reason: Pain, moderate (4-7) Stop: 11/09/16 11:42 Paroxetine HCl (Paxil) 20 mg PO DAILY [facility] Last Admin: 11/06/16 11:55 Dose: 20 mg Senna/Docusate Sodium (Senokot S 50 Mg-8.6 Mg) 2 tab PO HS PRN PRN Reason: Constipation Valsartan (Diovan) 80 mg PO DAILY [facility] Last Admin: 11/06/16 11:54 Dose: 80 mg - Labs Labs: 11/07/16 05:40 11/07/16 05:40 PT 10.0 SECONDS (9.6-11.2) 11/06/16 06:30 INR 0.96 (0.92-1.08) 11/06/16 06:30 APTT 31.0 SECONDS (23.3-32.5) 11/06/16 06:30 - Respiratory Exam Respiratory Exam: Clear to Ausculation Bilateral - Cardiovascular Exam Cardiovascular Exam: REGULAR RHYTHM, +S1, +S2 Assessment and Plan - Assessment and Plan (Free Text) Assessment: FALL WITH LEFT WRIST FRACTURE HYPERTENSION HYPERLIPIDEMIA Plan: CONTINUE DIOVAN AND ATORVASTATIN FOR SURGERY TODAY
[2016-11-07] MEDS ORDERED: Propofol 10 mg/ml Inj (20 ML) ONE (09:52)
[2016-11-07] MEDS ORDERED: Midazolam 2 MG/2 ML VIAL ONE (09:52)
[2016-11-07] MEDS ORDERED: Rocuronium 10 mg/ml (5 ml) ONE (09:53)
[2016-11-07] MEDS ORDERED: Phenylephrine 10 mg/ml Inj ONE (09:53)
[2016-11-07] MEDS ORDERED: Succinylcholine 200 mg/10 ml Inj IV ONE (09:53)
[2016-11-07] MEDS ORDERED: ePHEDrine 50 mg/ml Inj ONE (09:53)
[2016-11-07] MEDS ORDERED: Vecuronium 10 mg Inj ONE (09:53)
--- NOTE | 2016-11-07 09:57 | CP.PCM.PN ---
<Aquiles Kern - Last Filed: 11/07/16 14:00> Subjective - Date & Time of Evaluation Date of Evaluation: 11/07/16 Time of Evaluation: 07:05 - Subjective Subjective: 76 y/o F seen at bedside this morning. There were no acute events overnight. The patient is not in acute distress. The patient complains only pain of her left hand where the fracture is located. L/arm covered with cast and dressing. The patient has no other complaints. The patient denies headaches, dizziness, chest pain, dyspnea, abdominal pain, nausea, vomiting, diarrhea, dysuria, and fever. She is scheduled for Sx to repair Fx today. Consent for blood transfusion (in case it is needed during Sx) obtained from patient after explaining and discussing it with patient. Objective - Vital Signs/Intake and Output Vital Signs (last 24 hours): Temp Pulse Resp BP Pulse Ox 98.4 F 82 18 147/83 95 11/07/16 07:35 11/07/16 07:35 11/07/16 07:35 11/07/16 07:35 11/07/16 07:35 - Medications Medications: Current Medications Acetaminophen (Tylenol 325mg Tab) 650 mg PO Q6 PRN PRN Reason: Pain, Mild (1-3) Atorvastatin Calcium (Lipitor) 40 mg PO DAILY [facility] Last Admin: 11/06/16 11:55 Dose: 40 mg Dextrose (Dextrose 50% Inj) 0 ml IV STAT PRN; Protocol PRN Reason: Hyglycemia Protocol Dextrose (Glutose 15) 0 gm PO ONCE PRN; Protocol PRN Reason: Hypoglycemia Protocol Glucagon (Glucagen Diagnostic Kit) 0 mg IM STAT PRN; Protocol PRN Reason: Hypoglycemia Protocol Ceftriaxone Sodium 1 gm/ (Sodium Chloride) 100 mls @ 100 mls/hr IVPB DAILY [facility] Last Admin: 11/07/16 08:30 Dose: 100 mls/hr Sodium Chloride (Sodium Chloride 0.9%) 1,000 mls @ 80 mls/hr IV .[id number] [facility] Stop: 11/08/16 14:55 Last Admin: 11/07/16 00:33 Dose: 80 mls/hr Insulin Human Regular (Humulin R) 0 units SC ACHS [facility] PRN Reason: Protocol Last Admin: 11/07/16 06:42 Dose: Not Given Morphine Sulfate (Morphine) 2 mg IVP Q4 PRN PRN Reason: Pain, severe (8-10) Last Admin: 11/07/16 07:21 Dose: 2 mg Ondansetron HCl (Zofran Inj) 4 mg IVP Q4 PRN PRN Reason: Nausea/Vomiting Last Admin: 11/06/16 11:49 Dose: 4 mg Oxycodone/Acetaminophen (Percocet 5/325 Mg Tab) 2 tab PO Q4 PRN PRN Reason: Pain, moderate (4-7) Stop: 11/09/16 11:42 Paroxetine HCl (Paxil) 20 mg PO DAILY [facility] Last Admin: 11/06/16 11:55 Dose: 20 mg Senna/Docusate Sodium (Senokot S 50 Mg-8.6 Mg) 2 tab PO HS PRN PRN Reason: Constipation Valsartan (Diovan) 80 mg PO DAILY [facility] Last Admin: 11/07/16 09:02 Dose: 80 mg - Labs Labs: 11/07/16 05:40 11/07/16 05:40 PT 10.0 SECONDS (9.6-11.2) 11/06/16 06:30 INR 0.96 (0.92-1.08) 11/06/16 06:30 APTT 31.0 SECONDS (23.3-32.5) 11/06/16 06:30 - Constitutional Appears: No Acute Distress - Eye Exam Eye Exam: PERRL - ENT Exam ENT Exam: Mucous Membranes Moist - Neck Exam Neck Exam: Full ROM. absent: Tenderness - Respiratory Exam Respiratory Exam: Clear to Ausculation Bilateral, NORMAL BREATHING PATTERN - Cardiovascular Exam Cardiovascular Exam: REGULAR RHYTHM, +S1, +S2. absent: Gallop - GI/Abdominal Exam GI & Abdominal Exam: Soft, Normal Bowel Sounds. absent: Distended, Tenderness - Extremities Exam Extremities Exam: Normal Capillary Refill, Tenderness (L/hand. Patient able to move fingers. Sensation intact. ). absent: Calf Tenderness - Neurological Exam Neurological Exam: Alert, Awake, Oriented x3. absent: Motor Sensory Deficit - Psychiatric Exam Psychiatric exam: Normal Affect, Normal Mood - Skin Skin Exam: Normal Color Assessment and Plan - Assessment and Plan (Free Text) Assessment: The patient is a 75 y/o woman w/ PMHx of HLD, COPD, Anxiety/Depression, CKD, HTN , DM II presented to ED after fall onto left wrist after a trip and fall down one step going home Plan: 1. Left distal radial fracture - Neurovascular intact, failed attempt at reduction at bedside. - Tylenol 650 mg PO Q6h prn for pain - Morphine 2 mg IV Q4h and 4 mg IV Q6 prn for pain - Percocet 2 tab PO Q4 prn - Wrist X-ray: displaced distal radius fracture - PT eval/treat ordered - NPO after midnight for OR tomorrow - CXR: no active disease - Cleared by Cardiology for Sx - Scheduled for Sx to repair Fx today November 07, 2016 - Medically optimized, cleared by cardiology, receiving antibiotics, lovenox held, CXR, coags, and EKG WNL for surgery today 2. DM II/hyperglycemia - Asymptomatic, non-compliant with insulin therapy - accuchecks/ACHS - Medium dose SSI - HgbA1c 08/31/2016: 13.6 - heart healthy, moderate consistent carbohydrate diet - clinical staff educator consult - Patient will need Home health nursing services for DM teaching management after DC from hosp. 3. Asymptomatic Bacturia - UA: neg nitrates, moderate leukocyte esterase, moderate bacteria - denies dysuria - ceftriaxone 1 gm IV daily 4. CKD (Stage 4) - stable - BUN/Cr: 33/2.6 - IVF NS @ 125mL/hr 5. HTN - Controlled, stable - continue with home meds: Valsartan 80 mg PO daily 6. HLD - continue with atorvastatin 40 mg PO daily 7. Anxiety/Depression - controlled, stable - continue with home meds: Paroxetine 20 mg PO daily 8. DVT ppx - SCDs - hold lovenox until after OR <Jose Juan Boswell - Last Filed: 11/08/16 06:54> Objective - Vital Signs/Intake and Output Vital Signs (last 24 hours): Temp Pulse Resp BP Pulse Ox 98.2 F 78 20 153/77 H 97 11/08/16 06:00 11/08/16 06:00 11/08/16 06:00 11/08/16 06:00 11/08/16 06:00 Intake and Output: 11/07/16 11/08/16 18:59 06:59 Intake Total 1000 Balance 1000 - Medications Medications: Current Medications Acetaminophen (Tylenol 325mg Tab) 650 mg PO Q6 PRN PRN Reason: Pain, Mild (1-3) Atorvastatin Calcium (Lipitor) 40 mg PO DAILY [facility] Last Admin: 11/07/16 17:21 Dose: Not Given Dextrose (Dextrose 50% Inj) 0 ml IV STAT PRN; Protocol PRN Reason: Hyglycemia Protocol Dextrose (Glutose 15) 0 gm PO ONCE PRN; Protocol PRN Reason: Hypoglycemia Protocol Glucagon (Glucagen Diagnostic Kit) 0 mg IM STAT PRN; Protocol PRN Reason: Hypoglycemia Protocol Ceftriaxone Sodium 1 gm/ (Sodium Chloride) 100 mls @ 100 mls/hr IVPB DAILY [facility] Last Admin: 11/07/16 08:30 Dose: 100 mls/hr Sodium Chloride (Sodium Chloride 0.9%) 1,000 mls @ 80 mls/hr IV .[id number] [facility] Stop: 11/08/16 14:55 Last Admin: 11/08/16 01:00 Dose: Not Given Sodium Chloride (Sodium Chloride 0.9%) 1,000 mls @ 100 mls/hr IV .Q10H [facility] Last Admin: 11/07/16 23:25 Dose: Not Given Insulin Human Regular (Humulin R) 0 units SC ACHS [facility] PRN Reason: Protocol Last Admin: 11/08/16 06:51 Dose: 4 unit Morphine Sulfate (Morphine) 2 mg IVP Q4 PRN PRN Reason: Pain, severe (8-10) Last Admin: 11/07/16 07:21 Dose: 2 mg Ondansetron HCl (Zofran Inj) 4 mg IVP Q4 PRN PRN Reason: Nausea/Vomiting Last Admin: 11/06/16 11:49 Dose: 4 mg Oxycodone/Acetaminophen (Percocet 5/325 Mg Tab) 2 tab PO Q4 PRN PRN Reason: Pain, moderate (4-7) Stop: 11/09/16 11:42 Paroxetine HCl (Paxil) 20 mg PO DAILY [facility] Last Admin: 11/07/16 17:22 Dose: Not Given Saccharomyces Boulardii (Florastor) 250 mg PO BID [facility] Last Admin: 11/07/16 17:22 Dose: 250 mg Senna/Docusate Sodium (Senokot S 50 Mg-8.6 Mg) 2 tab PO HS PRN PRN Reason: Constipation Valsartan (Diovan) 80 mg PO DAILY [facility] Last Admin: 11/07/16 09:02 Dose: 80 mg - Labs Labs: 11/07/16 05:40 11/07/16 05:40 PT 10.0 SECONDS (9.6-11.2) 11/06/16 06:30 INR 0.96 (0.92-1.08) 11/06/16 06:30 APTT 31.0 SECONDS (23.3-32.5) 11/06/16 06:30 Attending/Attestation - Attestation I have personally seen and examined this patient.: Yes I have fully participated in the care of the patient.: Yes I have reviewed all pertinent clinical information, including history, physical exam and plan: Yes
[2016-11-07] MEDS ORDERED: Bupivacaine HCl 0.5% PF (30 ml) Inj ONE (10:12)
[2016-11-07] MEDS ORDERED: Bupivacaine HCl 0.25% PF (30 ml) Inj ONE (10:12)
[2016-11-07] MEDS ORDERED: Lactated Ringer's 1,000 ML IV ONE (10:28)
[2016-11-07] MEDS ORDERED: Albuterol HFA 90 mcg/actuation (8 g) ONE (10:45)
[2016-11-07] MEDS ORDERED: Neostigmine Methylsulfate 2 MG/2 ML ML IV ONE (12:13)
[2016-11-07] MEDS ORDERED: Neostigmine Methylsulfate 3mg/3ml Syringe IV ONE (12:13)
[2016-11-07] MEDS ORDERED: Sodium Chloride 0.9% 500 ML IV ONE (13:07)
[2016-11-07] MEDS ORDERED: HYDROmorphone 0.5 mg/0.5 ml ISec IVP PRN (13:14)
[2016-11-07] MEDS ORDERED: Dexamethasone 4 mg/1 ml IVP PRN (13:14)
--- NOTE | 2016-11-07 13:25 | PCM.ANESB1 ---
Interscalene Block - Brachial Plexus Date of Procedure: 11/07/16 Anesthesiologist: Rhys Ndiaye Pre-Procedure Diagnosis: Left Distal Radius Fracture Procedure Performed: Interscalene Block of Brachial Plexus Left - Procedure Interscalene Block of Brachial Plexus: This procedure was explained to the patient that it is for post-operative pain management. Consent was obtained after a thorough discussion with the patient regarding the benefits and possible complications of local anesthetic block of the Brachial Plexus at the Supraclavicular area. The patient was brought to the Operating Room and standard monitors were applied. Time out was held with the circulating nurse to confirm the correct surgery and appropriate block. After applying Oxygen by nasal cannula and administering IV Sedation, the patient's head was gently rotated away from the _left operative shoulder and the anterior scalene groove was carefully palpated. The ultrasound transducer was then applied to the skin in the transverse plane and the brachial plexus was visualized lateral to the subclavian and above the first rib. After identification,the anterior lateral portion of the neck was prepped with Betadine solution three times and Lidocaine 1% was injected subcutaneously for topical analgesia. At this point, a # 22 gauge Stimuplex 2 inches insulated needle was inserted into the interscalene groove and directed in a caudal and midline direction. The needle was inserted lateral to the ultrasound transducer in-plane towards the brachial plexus in a [id number] direction. Needle advancement was performed carefully under direct ultrasound visualization. Nerve stimulator was used and twitched of the affected extremity including the hand brachialis muscles, biceps and the deltoid was obtained at a current of _0.4 MA. After repeated negative aspiration,__10 cc of__0.5,__bupivacaine_were injected and this was followed with _10cc of 0.25% __bupivacaine. Under ultrasound guidance the local anesthetics were observed surrounding the roots of the brachial plexus. The needle was removed intact and sterile dressing was applied. The patient had stable vital signs, was conscious and in no apparent distress. The patient tolerated the supraclavicular block of the bracheal plexus well with stable vital signs and was prepared for subsequent surgery.
[2016-11-07] MEDS ORDERED: Insulin Regular 100 units/ml SC ONE (13:30)
--- NOTE | 2016-11-07 16:43 | RAD ---
PROCEDURE: Left Wrist Radiographs. HISTORY: s/p orif left distal radius COMPARISON: Comparison is made to the previous study dated 11/05/2016 FINDINGS: BONES: Status post internal fixation at the distal left radius. Postsurgical changes are seen. JOINTS: No evidence of dislocation. SOFT TISSUES: Postsurgical changes. OTHER FINDINGS: None. IMPRESSION: Status post internal fixation at the distal left radius.
--- NOTE | 2016-11-07 17:05 | PCM.SURG1 ---
Surgeon's Initial Post Op Note - Surgeon's Notes Surgeon: All Cow Buyer: WANDER Villagomez/ 2nd assist Jonathan Iniguez Type of Anesthesia: General Endo Anesthesia Administered By: DR Rhys Ndiaye Pre-Operative Diagnosis: Displaced/comminuted distal radius fx. carpal tunnel syndrome ( post traumatic) Operative Findings: as above Post-Operative Diagnosis: as above Operation Performed: ORIF L distal radius fx. releasae L trasnverse carpal ligament. partial median neurolysis. partial flexor tenosynovectomy Specimen/Specimens Removed: tenosynovium/epineurium Estimated Blood Loss: EBL {In ML}: 15 Blood Products Given: N/A Drains Used: No Drains Post-Op Condition: Good Date of Surgery/Procedure: 11/07/16 Time of Surgery/Procedure: 13:50 (time in room/anaesthesia induction time- 12:25 )
[2016-11-07] MEDS: Saccharomyces Boulardi 250 mg Cap PO SCH (17:22)
[2016-11-08] MEDS: Sodium Chloride 0.9% 1,000 ML IV SCH (01:00)
[2016-11-08] MEDS: Insulin Regular 100 units/ml SC SCH ×4 (06:51→22:00)
--- NOTE | 2016-11-08 07:15 | CP.PCM.PN ---
Subjective - Date & Time of Evaluation Date of Evaluation: 11/08/16 Time of Evaluation: 07:00 - Subjective Subjective: 76 y/o F seen at bedside on POD #1 s/p ORIF L distal radius fx. No acute events overnight. Patient denies pain at this time. She has been tolerating PO liquid diet since last night. Denies vomiting or nausea. No changes in urination or stools. Denies paresthesias or weakness in L/UE. Denies CP, calf pain, palpitations or SOB. Discussed with patient that she is going to be evaluated by PT services and would wait for recs. Patient states that in case PT is recommended, she prefers a rehab unit instead of home services due to renovations in his appt. She will also be evaluated today by DM educator. Objective - Vital Signs/Intake and Output Vital Signs (last 24 hours): Temp Pulse Resp BP Pulse Ox 98.2 F 78 20 153/77 H 97 11/08/16 06:00 11/08/16 06:00 11/08/16 06:00 11/08/16 06:00 11/08/16 06:00 - Medications Medications: Current Medications Acetaminophen (Tylenol 325mg Tab) 650 mg PO Q6 PRN PRN Reason: Pain, Mild (1-3) Atorvastatin Calcium (Lipitor) 40 mg PO DAILY [facility] Last Admin: 11/07/16 17:21 Dose: Not Given Dextrose (Dextrose 50% Inj) 0 ml IV STAT PRN; Protocol PRN Reason: Hyglycemia Protocol Dextrose (Glutose 15) 0 gm PO ONCE PRN; Protocol PRN Reason: Hypoglycemia Protocol Glucagon (Glucagen Diagnostic Kit) 0 mg IM STAT PRN; Protocol PRN Reason: Hypoglycemia Protocol Ceftriaxone Sodium 1 gm/ (Sodium Chloride) 100 mls @ 100 mls/hr IVPB DAILY [facility] Last Admin: 11/07/16 08:30 Dose: 100 mls/hr Sodium Chloride (Sodium Chloride 0.9%) 1,000 mls @ 80 mls/hr IV .[id number] [facility] Stop: 11/08/16 14:55 Last Admin: 11/08/16 01:00 Dose: Not Given Sodium Chloride (Sodium Chloride 0.9%) 1,000 mls @ 100 mls/hr IV .Q10H [facility] Last Admin: 11/07/16 23:25 Dose: Not Given Insulin Human Regular (Humulin R) 0 units SC ACHS [facility] PRN Reason: Protocol Last Admin: 11/08/16 06:51 Dose: 4 unit Morphine Sulfate (Morphine) 2 mg IVP Q4 PRN PRN Reason: Pain, severe (8-10) Last Admin: 11/07/16 07:21 Dose: 2 mg Ondansetron HCl (Zofran Inj) 4 mg IVP Q4 PRN PRN Reason: Nausea/Vomiting Last Admin: 11/06/16 11:49 Dose: 4 mg Oxycodone/Acetaminophen (Percocet 5/325 Mg Tab) 2 tab PO Q4 PRN PRN Reason: Pain, moderate (4-7) Stop: 11/09/16 11:42 Paroxetine HCl (Paxil) 20 mg PO DAILY [facility] Last Admin: 11/07/16 17:22 Dose: Not Given Saccharomyces Boulardii (Florastor) 250 mg PO BID [facility] Last Admin: 11/07/16 17:22 Dose: 250 mg Senna/Docusate Sodium (Senokot S 50 Mg-8.6 Mg) 2 tab PO HS PRN PRN Reason: Constipation Valsartan (Diovan) 80 mg PO DAILY [facility] Last Admin: 11/07/16 09:02 Dose: 80 mg - Labs Labs: 11/07/16 05:40 11/07/16 05:40 PT 10.0 SECONDS (9.6-11.2) 11/06/16 06:30 INR 0.96 (0.92-1.08) 11/06/16 06:30 APTT 31.0 SECONDS (23.3-32.5) 11/06/16 06:30 - Constitutional Appears: Non-toxic, No Acute Distress - Eye Exam Eye Exam: PERRL - ENT Exam ENT Exam: Mucous Membranes Moist - Neck Exam Neck Exam: Full ROM - Respiratory Exam Respiratory Exam: Clear to Ausculation Bilateral, NORMAL BREATHING PATTERN - Cardiovascular Exam Cardiovascular Exam: REGULAR RHYTHM, +S1, +S2. absent: Gallop - GI/Abdominal Exam GI & Abdominal Exam: Soft, Normal Bowel Sounds. absent: Tenderness - Extremities Exam Extremities Exam: Normal Capillary Refill, Tenderness (L/arm covered with post- op dressing. Patient able to move fingers. No discolorations). absent: Calf Tenderness - Neurological Exam Neurological Exam: Alert, Awake, Oriented x3 - Psychiatric Exam Psychiatric exam: Normal Affect, Normal Mood - Skin Skin Exam: Normal Color Assessment and Plan - Assessment and Plan (Free Text) Assessment: The patient is a 75 y/o woman w/ PMHx of HLD, COPD, Anxiety/Depression, CKD, HTN , DM II presented to ED after fall onto left wrist after a trip and fall down one step going home Plan: 1. Left distal radial fracture - S/P ORIF L/distal radius POD #1 - Morphine 2 mg IV Q4h and 4 mg IV Q6 prn for pain - Percocet 2 tab PO Q4 prn - Wrist X-ray: displaced distal radius fracture - PT eval/treat ordered - Tolerating PO liquids: Advance diet - F/U with Dr Carrizales in 10 days after Sx 2. DM II/hyperglycemia - Asymptomatic, non-compliant with insulin therapy - accuchecks/ACHS - Medium dose SSI - HgbA1c 08/31/2016: 13.6 - heart healthy, moderate consistent carbohydrate diet - visual educator consult - custodial worker consult: Patient will need Home health nursing services for DM teaching management after DC from hosp. 3. Asymptomatic Bacturia - UA: neg nitrates, moderate leukocyte esterase, moderate bacteria - UCx: Gram neg rods - denies dysuria - ceftriaxone 1 gm IV daily 4. CKD (Stage 4) - stable - BUN/Cr: 33/2.6 - IVF NS @ 125mL/hr 5. HTN - Controlled, stable - continue with home meds: Valsartan 80 mg PO daily 6. HLD - continue with atorvastatin 40 mg PO daily 7. Anxiety/Depression - controlled, stable - continue with home meds: Paroxetine 20 mg PO daily 8. DVT ppx - SCDs - Restart Lovenox 40mg daily
[2016-11-08 07:19] LABS: BASO % 0.1 % (0.0-2.0); LYMPH # 1.6 K/uL (1.0-4.3); MEAN CELL VOLUME 82.7 fl (81.0-99.0); MEAN CORPUSCULAR HEMOGLOBIN 26.5 pg (27.0-31.0); MONO # 1.1 K/uL (0.0-0.8); MONO % 11.5 % (0.0-10.0); NEUT # 7.2 K/uL (1.8-7.0); NEUT % 72.4 % (50.0-75.0); RED CELL DISTRIBUTION WIDTH 13.9 % (11.5-14.5)
[2016-11-08 07:59] LABS: POTASSIUM 5.1 MMOL/L (3.6-5.0)
[2016-11-08] MEDS: Saccharomyces Boulardi 250 mg Cap PO SCH ×2 (08:32→16:25)
--- NOTE | 2016-11-08 09:09 | OP ---
PROCEDURE DATE: 11/07/2016 PREOPERATIVE DIAGNOSES: 1. Displaced comminuted distal radius fracture. 2. Preoperative posttraumatic carpal tunnel syndrome. POSTOPERATIVE DIAGNOSES: 1. Displaced comminuted distal radius fracture. 2. Florid tenosynovitis. 3. Compression, median nerve. SURGERY: 1. Open reduction and internal fixation, left distal radius fracture. 2. Release transverse carpal ligament. 3. Partial median neurolysis. 4. Partial flexor tenosynovectomy. SPECIMENS REMOVED: Tenosynovium, epineurium. BLOOD LOSS: 15 mL. BLOOD PRODUCTS: None given. DRAINS: None. POSTOPERATIVE CONDITION: Stable. OPERATIVE INDICATION: The patient is a 76-year-old woman who sustained a FOOSH injury to the outstre tched left wrist. The patient presented to the Emergency Room at [facility]. Closed reduction was attempted and failed. Pros, cons, risks and benefits of surgical approach were discussed with the patient. The alternative procedures were discussed. The possibility of toll mechanic al failure, infection, thromboembolic disease, secondary or tertiary surgery are discussed. OPERATIVE PROCEDURE: After having obtained informed consent in the above fashion, after having ident ified side, site, and procedure, and a critical pause/timeout, after the satisfactory induction of th e anesthetic, the patient correctly identified, left upper extremity is prepped and free draped in th e usual fashion for upper extremity surgery. The tourniquet had been applied, but is not yet inflate d. The operation is performed under 2.5 magnification eyeglass. After exsanguinating the limb using a 4-inch Esmarch bandage, the tourniquet which had been applied is inflated to 250 mmHg. An incisio n as described in the median palmar crease deviating radially at the distal crease, deviating back pr oximally and the distal aspect of forearm. The skin incision is carried down through the skin and prabhakar bcutaneous tissue. The flap is elevated. The underlying palmar aponeurosis was identified and relea sed. The interval between the flexor carpi radialis tendon and the palmaris longus is developed. Th ere is found to be compression of the median nerve with marked tenosynovitis. Release of the transve rse carpal ligament is accomplished. An entire release is accomplished with partial excision of the transverse carpal ligament. A partial flexor tenosynovectomy is accomplished as well as a partial me brandy neurolysis. The epineurium was sent for specimen. There is found to be compression of the medi an nerve and, again, a florid tenosynovitis of the flexor tendons. A careful partial flexor tenosyno vectomy is accomplished. At this point in time, the interval between the flexor carpi radialis and t he palmaris longus is developed using a #15 blade. The fracture site is identified and the wrist cap candice was carefully elevated. At this point in time, the fracture was reduced, the K-wire is placed r adially to hold the fracture reduced, and at this point in time the locking [employer] volar plate is applied. Each sequential drill hole is drilled, sounded with the depth gauge and the appropriate size screws were placed. This having been accomplished, the distal screws are locking and are accom plished with drilling, sounding with the depth gauge, and the appropriate size screws were placed. T he plates were accomplished further proximally. The screws were introduced. Verification of positio n is offered on AP and lateral image intensification views. The position is found to be acceptable. There is no encroachment of the wrist joint. The wound is thoroughly irrigated. Closure is in layer s with interrupted Vicryl, nylon and javi. Chris Martinez compression dressing and volar splint are applied. HOCKEY INSTRUCTOR: Mackenzie Snyder. SECOND COIL CONNECTOR REPAIRER: Jonathan Iniguez. It should be noted that the assistantship of the certified nursing assistant financial accountant is essential to th e completion of the operative goals. OPERATIVE PROCEDURES: 1. Open reduction and internal fixation, left distal radius fracture without intraarticular componen t. 2. Release left transverse carpal ligament. 3. Partial median neurolysis. 4. Partial flexor tenosynovectomy. 5. Application of volar splint. SURGEON: Ryan Carrizales MD Ryan Carrizales MD cc: [id number] TT: 11/08/2016 09:08:38 az
--- NOTE | 2016-11-08 10:26 | CP.PCM.PN ---
Subjective - Date & Time of Evaluation Date of Evaluation: 11/08/16 Time of Evaluation: 09:45 - Subjective Subjective: NO CHEST PAIN OR SOB Objective - Vital Signs/Intake and Output Vital Signs (last 24 hours): Temp Pulse Resp BP Pulse Ox 98.2 F 78 20 160/93 H 98 11/08/16 08:14 11/08/16 08:14 11/08/16 08:14 11/08/16 08:14 11/08/16 08:14 - Medications Medications: Current Medications Acetaminophen (Tylenol 325mg Tab) 650 mg PO Q6 PRN PRN Reason: Pain, Mild (1-3) Atorvastatin Calcium (Lipitor) 40 mg PO DAILY [facility] Last Admin: 11/08/16 08:33 Dose: 40 mg Dextrose (Dextrose 50% Inj) 0 ml IV STAT PRN; Protocol PRN Reason: Hyglycemia Protocol Dextrose (Glutose 15) 0 gm PO ONCE PRN; Protocol PRN Reason: Hypoglycemia Protocol Enoxaparin Sodium (Lovenox) 30 mg SC DAILY [facility] PRN Reason: Protocol Glucagon (Glucagen Diagnostic Kit) 0 mg IM STAT PRN; Protocol PRN Reason: Hypoglycemia Protocol Ceftriaxone Sodium 1 gm/ (Sodium Chloride) 100 mls @ 100 mls/hr IVPB DAILY [facility] Last Admin: 11/08/16 08:33 Dose: 100 mls/hr Insulin Human Regular (Humulin R) 0 units SC ACHS [facility] PRN Reason: Protocol Last Admin: 11/08/16 06:51 Dose: 4 unit Morphine Sulfate (Morphine) 2 mg IVP Q4 PRN PRN Reason: Pain, severe (8-10) Last Admin: 11/07/16 07:21 Dose: 2 mg Ondansetron HCl (Zofran Inj) 4 mg IVP Q4 PRN PRN Reason: Nausea/Vomiting Last Admin: 11/06/16 11:49 Dose: 4 mg Oxycodone/Acetaminophen (Percocet 5/325 Mg Tab) 2 tab PO Q4 PRN PRN Reason: Pain, moderate (4-7) Stop: 11/09/16 11:42 Paroxetine HCl (Paxil) 20 mg PO DAILY [facility] Last Admin: 11/08/16 08:33 Dose: 20 mg Saccharomyces Boulardii (Florastor) 250 mg PO BID [facility] Last Admin: 11/08/16 08:32 Dose: 250 mg Senna/Docusate Sodium (Senokot S 50 Mg-8.6 Mg) 2 tab PO HS PRN PRN Reason: Constipation Valsartan (Diovan) 80 mg PO DAILY [facility] Last Admin: 11/08/16 08:32 Dose: 80 mg - Labs Labs: 11/08/16 05:30 11/08/16 05:30 PT 10.0 SECONDS (9.6-11.2) 11/06/16 06:30 INR 0.96 (0.92-1.08) 11/06/16 06:30 APTT 31.0 SECONDS (23.3-32.5) 11/06/16 06:30 - Respiratory Exam Respiratory Exam: Clear to Ausculation Bilateral - Cardiovascular Exam Cardiovascular Exam: REGULAR RHYTHM, +S1, +S2 Assessment and Plan - Assessment and Plan (Free Text) Assessment: S/P ORIF LEFT DISTAL RADIUS FX HYPERTENSION HYPERLIPIDEMIA Plan: CONTINUE DIOVAN, ATORVASTATIN AND LOVENOX FOR POSSIBLE KATHY
[2016-11-08] MEDS: Enoxaparin 30 mg Syringe SC SCH (11:56)
--- NOTE | 2016-11-08 15:35 | RAD ---
PROCEDURE: Intraoperative Fluoroscopy. HISTORY: WRIST LEFT FINDINGS: Fluoroscopic assistance was provided for ORIF left wrist. Approximately 2.5 seconds fluoroscopy time utilized. Please refer to operative report for additional details.
[2016-11-09 00:26] VITALS: RESP 20
[2016-11-09] MEDS: Insulin Regular 100 units/ml SC SCH ×2 (06:55→12:00)
[2016-11-09 07:41] VITALS: PULSE 74; TEMP 98.3
--- NOTE | 2016-11-09 08:21 | CP.PCM.PN ---
Subjective - Date & Time of Evaluation Date of Evaluation: 11/09/16 Time of Evaluation: 07:15 - Subjective Subjective: NO CHEST PAIN OR SOB Objective - Vital Signs/Intake and Output Vital Signs (last 24 hours): Temp Pulse Resp BP Pulse Ox 98.3 F 74 20 144/84 96 11/09/16 07:40 11/09/16 07:40 11/09/16 07:40 11/09/16 07:40 11/09/16 07:40 - Medications Medications: Current Medications Acetaminophen (Tylenol 325mg Tab) 650 mg PO Q6 PRN PRN Reason: Pain, Mild (1-3) Atorvastatin Calcium (Lipitor) 40 mg PO DAILY [facility] Last Admin: 11/08/16 08:33 Dose: 40 mg Dextrose (Dextrose 50% Inj) 0 ml IV STAT PRN; Protocol PRN Reason: Hyglycemia Protocol Dextrose (Glutose 15) 0 gm PO ONCE PRN; Protocol PRN Reason: Hypoglycemia Protocol Enoxaparin Sodium (Lovenox) 30 mg SC DAILY [facility] PRN Reason: Protocol Last Admin: 11/08/16 11:56 Dose: 30 mg Glucagon (Glucagen Diagnostic Kit) 0 mg IM STAT PRN; Protocol PRN Reason: Hypoglycemia Protocol Ceftriaxone Sodium 1 gm/ (Sodium Chloride) 100 mls @ 100 mls/hr IVPB DAILY [facility] Last Admin: 11/08/16 08:33 Dose: 100 mls/hr Insulin Human Regular (Humulin R) 0 units SC ACHS [facility] PRN Reason: Protocol Last Admin: 11/09/16 06:55 Dose: 3 unit Morphine Sulfate (Morphine) 2 mg IVP Q4 PRN PRN Reason: Pain, severe (8-10) Last Admin: 11/07/16 07:21 Dose: 2 mg Ondansetron HCl (Zofran Inj) 4 mg IVP Q4 PRN PRN Reason: Nausea/Vomiting Last Admin: 11/06/16 11:49 Dose: 4 mg Oxycodone/Acetaminophen (Percocet 5/325 Mg Tab) 2 tab PO Q4 PRN PRN Reason: Pain, moderate (4-7) Stop: 11/09/16 11:42 Paroxetine HCl (Paxil) 20 mg PO DAILY [facility] Last Admin: 11/08/16 08:33 Dose: 20 mg Saccharomyces Boulardii (Florastor) 250 mg PO BID [facility] Last Admin: 11/08/16 16:25 Dose: 250 mg Senna/Docusate Sodium (Senokot S 50 Mg-8.6 Mg) 2 tab PO HS PRN PRN Reason: Constipation Valsartan (Diovan) 80 mg PO DAILY [facility] Last Admin: 11/08/16 08:32 Dose: 80 mg - Labs Labs: 11/08/16 05:30 11/08/16 05:30 PT 10.0 SECONDS (9.6-11.2) 11/06/16 06:30 INR 0.96 (0.92-1.08) 11/06/16 06:30 APTT 31.0 SECONDS (23.3-32.5) 11/06/16 06:30 - Respiratory Exam Respiratory Exam: Clear to Ausculation Bilateral - Cardiovascular Exam Cardiovascular Exam: REGULAR RHYTHM, +S1, +S2 Assessment and Plan - Assessment and Plan (Free Text) Assessment: S/P ORIF LEFT DISTAL RADIUS FRACTURE HYPERTENSION HYPERLIPIDEMIA DM Plan: CONTINUE VALSARTAN, ATORVASTATIN AND LOVENOX FOR POSSIBLE REHAB
[2016-11-09] MEDS: Saccharomyces Boulardi 250 mg Cap PO SCH (08:33)
[2016-11-09] MEDS: Enoxaparin 30 mg Syringe SC SCH (08:34)
[2016-11-09] MEDS ORDERED: Phenol 1.4% Throat Spray MT PRN (08:40)
[2016-11-09 10:53] VITALS: BP 145/80; O2SAT 98
--- NOTE | 2016-11-09 13:28 | CP.PCM.DIS ---
Addendum entered and electronically signed by Aquiles Kern MD 11/10/16 15: 27: Correction made to diagnosis #2 should indicate DMtype2. Patient was treated with Regular insulin as per SS while admitted because patient was NPO until last day of admission due to Sx. Oral Hypoglicemic meds were placed on hold. BS level remained slightly elevated and Endocrinology consult with Dr Rai was called on 11/09/16 before DC. Original Note: <Aquiles Kern - Last Filed: 11/09/16 17:24> Provider - Provider Date of Admission: 11/06/16 00:31 Attending physician: Jose Juan Boswell MD Primary care physician: Dr Boswell Consults: Dr Rai(Endocrinology) Dr Harley(Nephrology) Physical Therapy Time Spent in preparation of Discharge (in minutes): 40 Diagnosis - Discharge Diagnosis (1) Asymptomatic bacteriuria Status: Acute Comment: UCx: Klebsiella sensitive to Ceftriaxone. Cont IV Abx to complete 7 days (2) DKA, type 2 Status: Chronic Comment: Uncontrolled/Noncompliant. On ISS. Will restart home PO meds. F/U Endocrinology consult recs (3) Depression Status: Chronic Comment: Stable. Cont home meds (4) Distal radial fracture Status: Acute Comment: S/P ORIF. To receive PT services at TCU (5) Acute on chronic renal failure Status: Chronic Comment: Stable. F/U Nephro recs. Hospital Course - Lab Results Lab Results: Micro Results 11/06/16 08:00 Urine Urine Culture - Final Klebsiella Pneumoniae Ssp Pneu Most Recent Lab Values WBC 10.0 K/uL (4.8-10.8) 11/08/16 05:30 RBC 4.35 Mil/uL (3.80-5.20) 11/08/16 05:30 Hgb 11.5 g/dL (12.0-16.0) L 11/08/16 05:30 Hct 36.0 % (34.0-47.0) 11/08/16 05:30 MCV 82.7 fl (81.0-99.0) 11/08/16 05:30 MCH 26.5 pg (27.0-31.0) L 11/08/16 05:30 MCHC 32.0 g/dL (33.0-37.0) L 11/08/16 05:30 RDW 13.9 % (11.5-14.5) 11/08/16 05:30 Plt Count 331 K/uL (130-400) 11/08/16 05:30 MPV 8.0 fl (7.2-11.7) 11/08/16 05:30 Neut % (Auto) 72.4 % (50.0-75.0) 11/08/16 05:30 Lymph % (Auto) 16.0 % (20.0-40.0) L 11/08/16 05:30 [place] % (Auto) 11.5 % (0.0-10.0) H 11/08/16 05:30 Eos % (Auto) 0.0 % (0.0-4.0) 11/08/16 05:30 Baso % (Auto) 0.1 % (0.0-2.0) 11/08/16 05:30 Neut # 7.2 K/uL (1.8-7.0) H 11/08/16 05:30 Lymph # 1.6 K/uL (1.0-4.3) 11/08/16 05:30 Rincon # 1.1 K/uL (0.0-0.8) H 11/08/16 05:30 Eos # 0.0 K/uL (0.0-0.7) 11/08/16 05:30 Baso # 0.0 K/uL (0.0-0.2) 11/08/16 05:30 PT 10.0 SECONDS (9.6-11.2) 11/06/16 06:30 INR 0.96 (0.92-1.08) 11/06/16 06:30 APTT 31.0 SECONDS (23.3-32.5) 11/06/16 06:30 pO2 31 mm/Hg (30-55) 11/05/16 22:11 VBG pH 7.28 (7.32-7.43) L 11/05/16 22:11 VBG pCO2 37 mmHg (40-60) L 11/05/16 22:11 VBG HCO3 16.9 mmol/L 11/05/16 22:11 VBG O2 Sat (Calc) 68.4 % (40-65) H 11/05/16 22:11 VBG Base Excess -8.6 mmol/L (0.0-2.0) L 11/05/16 22:11 Sodium 133 mmol/l (132-148) 11/08/16 05:30 Potassium 5.1 MMOL/L (3.6-5.0) H 11/08/16 05:30 Chloride 109 mmol/L (98-107) H 11/08/16 05:30 Carbon Dioxide 15 mmol/L (22-30) L 11/08/16 05:30 Anion Gap 14 (10-20) 11/08/16 05:30 BUN 30 mg/dl (7-17) H 11/08/16 05:30 Creatinine 2.4 mg/dL (0.7-1.2) H 11/08/16 05:30 Est GFR ( Amer) 24 11/08/16 05:30 Est GFR (Non-Af Amer) 20 11/08/16 05:30 POC Glucose (mg/dL) 243 mg/dL (65-110) H 11/09/16 05:59 Random Glucose 234 mg/dL (65-105) H 11/08/16 05:30 Calcium 9.0 mg/dL (8.4-10.2) 11/08/16 05:30 Total Bilirubin 0.3 mg/dl (0.2-1.3) 11/06/16 06:00 AST 16 U/L (14-36) 11/06/16 06:00 ALT 19 U/L (9-52) 11/06/16 06:00 Alkaline Phosphatase 119 U/L (38-126) 11/06/16 06:00 Total Protein 7.3 G/DL (6.3-8.2) 11/06/16 06:00 Albumin 3.5 g/dL (3.5-5.0) 11/06/16 06:00 Globulin 3.8 gm/dL (2.2-3.9) 11/06/16 06:00 Albumin/Globulin Ratio 0.9 (1.0-2.1) L 11/06/16 06:00 Urine Color Yellow (YELLOW) 11/06/16 06:20 Urine Clarity Turbid (Clear) 11/06/16 06:20 Urine pH 6.0 (5.0-8.0) 11/06/16 06:20 Ur Specific [place] 1.007 (1.003-1.030) 11/06/16 06:20 Urine Protein 100 mg/dL (NEGATIVE) 11/06/16 06:20 Urine Glucose (UA) >=500 mg/dL (Normal) 11/06/16 06:20 Urine Ketones Negative mg/dL (NEGATIVE) 11/06/16 06:20 Urine Blood Moderate (NEGATIVE) 11/06/16 06:20 Urine Nitrate Negative (NEGATIVE) 11/06/16 06:20 Urine Bilirubin Negative (NEGATIVE) 11/06/16 06:20 Urine Urobilinogen 0.2-1.0 mg/dL (0.2-1.0) 11/06/16 06:20 Ur Leukocyte Esterase Mod Emilio/uL (Negative) 11/06/16 06:20 Urine RBC (Auto) 203 /hpf (0-3) H 11/06/16 06:20 Urine WBC Clumps (Auto) Many /hpf (NONE) H 11/06/16 06:20 Urine Microscopic WBC 78699 /hpf (0-5) H 11/06/16 06:20 Urine Bacteria Mod (<OCC) H 11/06/16 06:20 Urine Yeast (Budding) Many /hpf (NEGATIVE) H 11/06/16 06:20 Blood Type A POSITIVE 11/06/16 19:56 Blood Type Confirm A POSITIVE 11/06/16 20:05 Antibody Screen Negative 11/06/16 19:56 BBK History Checked No verified bt 11/06/16 19:56 - Hospital Course Hospital Course: 75 yo F with PMHx HLD, COPD, Anxiety/Depression, CKD, HTN, DM II presented to ED after fall onto left wrist after a trip and fall down one step going home. Wrist XRay and UE CT were performed and the diagnosis of L/distal radius Fx was made. Patient successfully underwent ORIF of L/distal radius by Dr Carrizales( Orthopedic Surgeon). BS levels elevated, patient on ISS, previously non compliant with home treatment. GFR 20. Patient has CKD stable and will be evaluated by Nephrology Dr Harley and Endocrinology Dr Rai. Today patient is stable, pain under control with pain meds. She will be discharge from med-sx after cleared by Ortho and will be admitted to TCU to receive PT/OT treatment as suggested by PT evshen. Discharge Exam - Head Exam Head Exam: NORMAL INSPECTION, NORMOCEPHALIC - Eye Exam Eye Exam: PERRL - ENT Exam ENT Exam: Mucous Membranes Moist - Respiratory Exam Respiratory Exam: Clear to PA & Lateral, NORMAL BREATHING PATTERN - Cardiovascular Exam Cardiovascular Exam: REGULAR RHYTHM, +S1, +S2. absent: Gallop - GI/Abdominal Exam GI & Abdominal Exam: Normal Bowel Sounds. absent: Distended, Tenderness - Extremities Exam Extremities exam: normal capillary refill, tenderness (L/arm covered with post op dressing. Patient able to move fingers and sensation is intact.) - Neurological Exam Neurological exam: Alert, Normal Gait, Oriented x3 - Psychiatric Exam Psychiatric exam: Normal Affect, Normal Mood - Skin Skin Exam: Normal Color, Warm Discharge Plan - Follow Up Plan Condition: FAIR Disposition: TRANSF TO SNF Instructions: Wrist Fracture in Adults (DC), ORIF of a Wrist Fracture (DC) <Jose Juan Boswell - Last Filed: 11/11/16 13:22> Provider - Provider Date of Admission: 11/06/16 00:31 Attending physician: Jose Juan Boswell MD Hospital Course - Lab Results Lab Results: Micro Results 11/06/16 08:00 Urine Urine Culture - Final Klebsiella Pneumoniae Ssp Pneu Most Recent Lab Values WBC 10.0 K/uL (4.8-10.8) 11/08/16 05:30 RBC 4.35 Mil/uL (3.80-5.20) 11/08/16 05:30 Hgb 11.5 g/dL (12.0-16.0) L 11/08/16 05:30 Hct 36.0 % (34.0-47.0) 11/08/16 05:30 MCV 82.7 fl (81.0-99.0) 11/08/16 05:30 MCH 26.5 pg (27.0-31.0) L 11/08/16 05:30 MCHC 32.0 g/dL (33.0-37.0) L 11/08/16 05:30 RDW 13.9 % (11.5-14.5) 11/08/16 05:30 Plt Count 331 K/uL (130-400) 11/08/16 05:30 MPV 8.0 fl (7.2-11.7) 11/08/16 05:30 Neut % (Auto) 72.4 % (50.0-75.0) 11/08/16 05:30 Lymph % (Auto) 16.0 % (20.0-40.0) L 11/08/16 05:30 R[place] % (Auto) 11.5 % (0.0-10.0) H 11/08/16 05:30 Eos % (Auto) 0.0 % (0.0-4.0) 11/08/16 05:30 Baso % (Auto) 0.1 % (0.0-2.0) 11/08/16 05:30 Neut # 7.2 K/uL (1.8-7.0) H 11/08/16 05:30 Lymph # 1.6 K/uL (1.0-4.3) 11/08/16 05:30 [place] # 1.1 K/uL (0.0-0.8) H 11/08/16 05:30 Eos # 0.0 K/uL (0.0-0.7) 11/08/16 05:30 Baso # 0.0 K/uL (0.0-0.2) 11/08/16 05:30 PT 10.0 SECONDS (9.6-11.2) 11/06/16 06:30 INR 0.96 (0.92-1.08) 11/06/16 06:30 APTT 31.0 SECONDS (23.3-32.5) 11/06/16 06:30 pO2 31 mm/Hg (30-55) 11/05/16 22:11 VBG pH 7.28 (7.32-7.43) L 11/05/16 22:11 VBG pCO2 37 mmHg (40-60) L 11/05/16 22:11 VBG HCO3 16.9 mmol/L 11/05/16 22:11 VBG O2 Sat (Calc) 68.4 % (40-65) H 11/05/16 22:11 VBG Base Excess -8.6 mmol/L (0.0-2.0) L 11/05/16 22:11 Sodium 133 mmol/l (132-148) 11/08/16 05:30 Potassium 5.1 MMOL/L (3.6-5.0) H 11/08/16 05:30 Chloride 109 mmol/L (98-107) H 11/08/16 05:30 Carbon Dioxide 15 mmol/L (22-30) L 11/08/16 05:30 Anion Gap 14 (10-20) 11/08/16 05:30 BUN 30 mg/dl (7-17) H 11/08/16 05:30 Creatinine 2.4 mg/dL (0.7-1.2) H 11/08/16 05:30 Est GFR ( Amer) 24 11/08/16 05:30 Est GFR (Non-Af Amer) 11/08/16 05:30 POC Glucose (mg/dL) 303 mg/dL (65-110) H 11/09/16 15:21 Random Glucose 234 mg/dL (65-105) H 11/08/16 05:30 Calcium 9.0 mg/dL (8.4-10.2) 11/08/16 05:30 Total Bilirubin 0.3 mg/dl (0.2-1.3) 11/06/16 06:00 AST 16 U/L (14-36) 11/06/16 06:00 ALT 19 U/L (9-52) 11/06/16 06:00 Alkaline Phosphatase 119 U/L (38-126) 11/06/16 06:00 Total Protein 7.3 G/DL (6.3-8.2) 11/06/16 06:00 Albumin 3.5 g/dL (3.5-5.0) 11/06/16 06:00 Globulin 3.8 gm/dL (2.2-3.9) 11/06/16 06:00 Albumin/Globulin Ratio 0.9 (1.0-2.1) L 11/06/16 06:00 Urine Color Yellow (YELLOW) 11/06/16 06:20 Urine Clarity Turbid (Clear) 11/06/16 06:20 Urine pH 6.0 (5.0-8.0) 11/06/16 06:20 Ur Specific [place] 1.007 (1.003-1.030) 11/06/16 06:20 Urine Protein 100 mg/dL (NEGATIVE) 11/06/16 06:20 Urine Glucose (UA) >=500 mg/dL (Normal) 11/06/16 06:20 Urine Ketones Negative mg/dL (NEGATIVE) 11/06/16 06:20 Urine Blood Moderate (NEGATIVE) 11/06/16 06:20 Urine Nitrate Negative (NEGATIVE) 11/06/16 06:20 Urine Bilirubin Negative (NEGATIVE) 11/06/16 06:20 Urine Urobilinogen 0.2-1.0 mg/dL (0.2-1.0) 11/06/16 06:20 Ur Leukocyte Esterase Mod Emilio/uL (Negative) 11/06/16 06:20 Urine RBC (Auto) 203 /hpf (0-3) H 11/06/16 06:20 Urine WBC Clumps (Auto) Many /hpf (NONE) H 11/06/16 06:20 Urine Microscopic WBC 40637 /hpf (0-5) H 11/06/16 06:20 Urine Bacteria Mod (<OCC) H 11/06/16 06:20 Urine Yeast (Budding) Many /hpf (NEGATIVE) H 11/06/16 06:20 Blood Type A POSITIVE 11/06/16 19:56 Blood Type Confirm A POSITIVE 11/06/16 20:05 Antibody Screen Negative 11/06/16 19:56 BBK History Checked No verified bt 11/06/16 19:56 Attending/Attestation - Attestation I have personally seen and examined this patient.: Yes I have fully participated in the care of the patient.: Yes I have reviewed all pertinent clinical information, including history, physical exam and plan: Yes
[2016-11-09] MEDS ORDERED: Insulin Lispro (humaLOG) 100 Units/ml Inj SC SCH (16:30)
--- NOTE | 2016-11-09 20:20 | CON ---
DATE: 11/09/2016 ROOM: 651 This is a 76-year-old female with known history of type 2 insulin-requiring diabetes, presenting here with an accidental fall and sustained a left wrist fracture, and is now being referred for diabetic evaluation and management. PAST MEDICAL HISTORY: History of type 2 insulin-requiring diabetes on a combination of both oral hyp oglycemic therapy and apparent insulin therapy, which she actually did not use at home as noted. She was on Prandin given as 2 mg t.i.d. with meals and glipizide given as 10 mg b.i.d. before meals as o rdered. She was also given Levemir 24 units subQ at bedtime daily as ordered, but apparently did not use the insulin at home due to some technical issues with not being able to self-administer her own insulin. History of hypertensive cardiovascular disease and dyslipidemia, history of diabetic retino sp, polyneuropathy, and nephropathy with progressive renal insufficiency and underlying chronic ki dney disease, history of generalized anxiety and depression on psychotropic medications and antianxie ty medications, history of chronic obstructive lung disease with previous admissions for acute exacer bations of the same, history of generalized osteoarthritis and osteoporosis and uses a cane for ambul ation. FAMILY HISTORY: Positive for hypertension and heart disease. SOCIAL HISTORY: The patient has a supportive family. No known substance use. REVIEW OF SYSTEMS: As mentioned above, admits to generalized body weakness with easy fatigability an d tiredness and suboptimal energy level. Also, admits to episodic bouts of dizziness and lightheaded ness. No recent chest pains or palpitations or PNDs. Also, admits to occasional shortness of breath , especially on exertion. Her oral intake is variable with nausea, dyspepsia, and vague upper abdomi nal pains. Also, admits to habitual constipation with persistent nocturia. Moreover, also admits to lower extremity painful paresthesias as noted. PHYSICAL EXAMINATION: GENERAL: This is an average built female, in no apparent distress. VITAL SIGNS: Blood pressure of 150/90, pulse of 100 beats per minute, regular, temperature 98, respi rations 20. Height is 5 feet 4 inches, weight is 190 pounds. HEENT: Head normocephalic. Eyes anicteric with pink conjunctivae. Fundoscopy not possible at this time. Ears, nose and throat otherwise normal. NECK: Supple. Thyroid gland is normal size. No carotid bruits. No cervical adenopathy. CARDIOPULMONARY: Some adynamic precordium. S1, S2 is rapid and regular. LUNGS: Clear to auscultation. ABDOMEN: Flat, soft with positive bowel sounds. EXTREMITIES: No peripheral edema. Pulses are +2 bilaterally. The initial chemistry showed a BUN of 35, sodium 130, potassium 5.2, chloride 103, CO2 17, glucose is 546 and creatinine is 2.7. ASSESSMENT: This is a 76-year-old female with uncontrolled and decompensated type 2 insulin-requirin g diabetes with marked hyperglycemic accelerations and mild ketosis presenting here with a left wrist fracture and is now being referred for diabetic evaluation and management. She also has diabetic mi crovascular complications of retinopathy, polyneuropathy, and nephropathy with chronic kidney disease and progressive renal insufficiency as noted. She also has diabetic macrovascular complications of coronary artery disease and peripheral arterial disease and vasculopathy. PLAN OF MANAGEMENT: As discussed with the patient and the staff, we will start her right away on a b swapnil insulin with Levemir to be given as 12 units subQ at bedtime daily to start tonight. We will al so modify the coverage scale to obviate hypoglycemia and detailed orders have been given. In order n ot to complicate her insulin regimen and also to promote adherence to the aforementioned, we will sta rt her on basal insulin with Levemir at 12 units at bedtime to start tonight as ordered and if really hyperglycemic levels persist postprandially, then we will have no choice but to start her on a short -acting low-dose Humalog given with each meal as indicated. For now, we will give her a combination of dual oral hypoglycemic therapy to cover her prandial requirements and start her on glipizide given as 10 mg b.i.d. before meals to start at dinnertime today as ordered. We will also add Prandin give n as 2 mg p.o. t.i.d. with meals to start today as ordered. We will titrate incrementally as indicat ed to optimize metabolic control. We will also modify the coverage scale to obviate hypoglycemia and detailed orders have been given. A hemoglobin A1c will be done to confirm her prior glycemic contro l and baseline thyroid function studies will be ordered. We will follow and advise accordingly. Annelise Rai MD cc: [id number] TT: 11/09/2016 20:18:46 Confirmation # [id number] Dictation # [id number] en
[2016-11-09] MEDS ORDERED: Docusate-Senna 50 mg-8.6 mg Tab PO SCH (22:00)
[2016-11-09] MEDS ORDERED: Insulin Detemir 100 Units/ml Inj SC SCH (22:00)
--- NOTE | 2016-11-10 11:17 | PQF DM ---
Dr. Burhnam History and Physical documents "no evidence of DKA." Discharge summary documents "DKA type 2." Was pt admitted and treated for a diagnosis of DKA? This form is a permanent part of the medical record Clarification of your documentation is requested to better reflect the severity of illness and intensity of treatment of your patient. Indicators present: [X] Documented diagnosis of Diabetes [] Documented condition [] A1C results [X] Diabetic medications [X] Elevated blood glucose [] Nutritional consults [] ADA diet [] Other: [] Location in the medical record that reflects the above clinical findings:[] Treatment Provided: PHYSICIAN'S RESPONSE Based on your medical judgment of the clinical indicators outlined above, are you treating this patient for a known or suspected: [] Diabetes Mellitus, Type I [] Controlled [] Uncontrolled [] Diabetes Mellitus, Type II [] Controlled [] Uncontrolled [] Diabetes, Steroid induced [] Controlled [] Uncontrolled [] Diabetic conditions/complications [] Other, please indicate [] [] If Unable to Determine, please check the box, sign and date. Present On Admission (POA) Indicator: [] Present at the time of admission [] Not present at the time of admission [] Clinically Undetermined In responding to this query, please exercise your independent professional judgment. The fact that a question is asked does not imply that any particular answer is desired or expected. Thank you for your clarification on this documentation. If you have any questions please call:[ ] * Thank you, [ ]Fiorella Rivera utility repairer OREN
== END 2016-11-09 16:08 | DRG 501 ==
LOC: H.ER 20:42 → H.ERHOLD 11-06 00:31 → H.MEDSURG1 11-06 02:55
PROVIDERS: ADMIT Family Medicine; ATTEND Family Medicine
PROC: 01N50ZZ Release Median Nerve, Open Approach (ICD-10-PCS; 2016-11-07)
PROC: 3E0T3BZ Introduction of Anesthetic Agent into Peripheral Nerves and Plexi, Percutaneous Approach (ICD-10-PCS; 2016-11-07)
PROC: 0PSJ04Z Reposition Left Radius with Internal Fixation Device, Open Approach (ICD-10-PCS; principal; 2016-11-07 10:45)
PROC: 0LB60ZZ Excision of Left Lower Arm and Wrist Tendon, Open Approach (ICD-10-PCS; 2016-11-07 10:45)
DX: S52.502A Unspecified fracture of the lower end of left radius, initial encounter for closed fracture (principal); N17.9 Acute kidney failure, unspecified; E11.21 Type 2 diabetes mellitus with diabetic nephropathy; N18.4 Chronic kidney disease, stage 4 (severe); E11.42 Type 2 diabetes mellitus with diabetic polyneuropathy; I13.10 Hypertensive heart and chronic kidney disease without heart failure, with stage 1 through stage 4 chronic kidney disease, or unspecified chronic kidney disease; W10.9XXA Fall (on) (from) unspecified stairs and steps, initial encounter; E11.22 Type 2 diabetes mellitus with diabetic chronic kidney disease; Y93.9 Activity, unspecified; Y92.9 Unspecified place or not applicable; Z79.4 Long term (current) use of insulin; Z79.84 Long term (current) use of oral hypoglycemic drugs; E78.00 Pure hypercholesterolemia, unspecified; E78.5 Hyperlipidemia, unspecified; E87.5 Hyperkalemia; F32.9 Major depressive disorder, single episode, unspecified; F41.1 Generalized anxiety disorder; J44.9 Chronic obstructive pulmonary disease, unspecified; M65.9 Synovitis and tenosynovitis, unspecified; E11.319 Type 2 diabetes mellitus with unspecified diabetic retinopathy without macular edema; E11.51 Type 2 diabetes mellitus with diabetic peripheral angiopathy without gangrene; R82.71 Bacteriuria; B96.1 Klebsiella pneumoniae [K. pneumoniae] as the cause of diseases classified elsewhere; G56.02 Carpal tunnel syndrome, left upper limb; Z91.14 Patient's other noncompliance with medication regimen; M15.9 Polyosteoarthritis, unspecified; E11.65 Type 2 diabetes mellitus with hyperglycemia

== ENCOUNTER 2016-11-09 11:05 | Inpatient (IN) | payer OTHER, MEDICARE ==
[2016-11-09 16:07] VITALS: BMI 32.5
[2016-11-09] MEDS ORDERED: Dextrose 50% SYRINGE Inj (50 ml) IV PRN (16:17)
[2016-11-09] MEDS ORDERED: Glucagon Recombinant 1 mg Inj IM PRN (16:17)
[2016-11-09] MEDS ORDERED: Oxycodone/Acetaminophen 5/325 mg Tab PO PRN (16:20)
[2016-11-09] MEDS ORDERED: Phenol 1.4% Throat Spray MT PRN (16:22)
[2016-11-09] MEDS: Saccharomyces Boulardi 250 mg Cap PO SCH (17:26)
[2016-11-09] MEDS: Insulin Regular 100 units/ml SC SCH ×2 (17:28→22:03)
[2016-11-09] MEDS ORDERED: Docusate-Senna 50 mg-8.6 mg Tab PO SCH (22:00)
[2016-11-09 23:35] LABS: RBC URINE 24 /hpf (0-3); URINE BILIRUBIN NEGATIVE (NEGATIVE); URINE BLOOD MODERATE (NEGATIVE); URINE COLOR YELLOW (YELLOW); URINE GLUCOSE (UA) 50 mg/dL (Normal); URINE KETONE NEGATIVE (NEGATIVE); URINE LEUKOCYTE ESTERASE LARGE Leu/uL (Negative); URINE PROTEIN 30 mg/dL (NEGATIVE); URINE UROBILINOGEN 0.2-1.0 mg/dL (0.2-1.0); WBC CLUMPS MANY /hpf; WBC URINE 1339 /hpf (0-5)
[2016-11-10] MEDS: Insulin Regular 100 units/ml SC SCH ×4 (07:37→21:35)
[2016-11-10] MEDS: Saccharomyces Boulardi 250 mg Cap PO SCH ×2 (08:18→17:26)
--- NOTE | 2016-11-10 10:00 | CP.PCM.HP ---
<ErlinAquiles - Last Filed: 11/10/16 15:24> History of Present Illness - History of Present Illness History of Present Illness: 75 yo F with PMHx HLD, COPD, Anxiety/Depression, CKD, HTN, DM II was recently admitted to [facility] after she presented to ED because of a fall. Wrist XRay and UE CT were performed and the diagnosis of L/distal radius Fx was made. Patient successfully underwent ORIF of L/distal radius by Dr Carrizales(Orthopedic Surgeon ) after admitted. Patient had been non compliant with home meds, BS levels were elevated and kidney function was impaired, GFR 20. She had been evaluated by Nephrology in the past. Patient was treated with insulin, pain meds, home meds for HTN, DM, Depression and evaluated by Ortho, Cardiology, Nephrology. She is now in TCU for PT/OT services. Patient seen today at bedside, states she feels better, pain controlled with pain meds, denies CP, SOB, Palpitations, Headache, Abd pain, diarrhea or difficulty urinating. Patient was also found to have asymptomatic bacteriuria while in the hosp sensitive to Ceftriaxone and she is on abx treatment. Present on Admission - Present on Admission Any Indicators Present on Admission: Yes History of Uncontrolled Diabetes: Yes Urinary Catheter: No Decubitus Ulcer Present: No History Surgical Site Infection Following: Orthopedic Procedures (S/P ORIF distal radius) Review of Systems - Constitutional Constitutional: absent: Anorexia, Fatigue, Frequent Falls, Weight Loss, Weakness - EENT Eyes: absent: Change in Vision - Cardiovascular Cardiovascular: Leg Edema. 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 absent: Abdominal Pain - Genitourinary Genitourinary: absent: Difficulty Urinating, Dysuria, Flank Pain, Hematuria - Musculoskeletal Musculoskeletal: Other (L/arm covered with post op dressing. Pain controlled with pain meds. ) - Neurological Neurological: absent: Headaches, Paresthesias - Psychiatric Psychiatric: As Per HPI Past Patient History - Infectious Disease Hx of Infectious Diseases: None - Past Medical History & Family History Past Medical History?: Yes - Past Social History Smoking Status: Never Smoked - CARDIAC Hx Cardiac Disorders: Yes Hx Hypercholesterolemia: Yes Hx Hypertension: Yes - PULMONARY Hx Respiratory Disorders: Yes Hx Chronic Obstructive Pulmonary Disease (COPD): Yes Hx Pneumonia: Yes - NEUROLOGICAL Hx Neurological Disorder: No - HEENT Hx HEENT Problems: Yes Other/Comment: uses eye glasses - RENAL Hx Chronic Kidney Disease: Yes Other/Comment: Chronic kidney disease - ENDOCRINE/METABOLIC Hx Endocrine Disorders: Yes Hx Diabetes Mellitus Type 2: Yes - HEMATOLOGICAL/ONCOLOGICAL Hx Blood Disorders: No Hx Human Immunodeficiency Virus (HIV): No - INTEGUMENTARY Hx Dermatological Problems: No - MUSCULOSKELETAL/RHEUMATOLOGICAL Hx Musculoskeletal Disorders: Yes Hx Falls: Yes - GASTROINTESTINAL Hx Gastrointestinal Disorders: No - GENITOURINARY/GYNECOLOGICAL Hx Genitourinary Disorders: No - PSYCHIATRIC Hx Psychophysiologic Disorder: No Hx Substance Use: No - SURGICAL HISTORY Hx Surgeries: Yes Hx Tonsillectomy: Yes - ANESTHESIA Hx Anesthesia: No Hx Anesthesia Reactions: No Hx Malignant Hyperthermia: No Has any member of the family had a problem w/ anesthesia?: No Meds Allergies/Adverse Reactions: Allergies Allergy/AdvReac Type Severity Reaction Status Date / Time No Known Allergies Allergy Verified 01/04/16 20:19 Physical Exam - Constitutional Appears: Non-toxic, No Acute Distress - Eye Exam Pupil Exam: PERRL - ENT Exam ENT Exam: Mucous Membranes Moist - Respiratory Exam Respiratory Exam: Clear to Auscultation Bilateral, NORMAL BREATHING PATTERN. absent: Rales, Wheezes - Cardiovascular Exam Cardiovascular Exam: REGULAR RHYTHM, +S1, +S2 - GI/Abdominal Exam GI & Abdominal Exam: Normal Bowel Sounds, Soft. absent: Tenderness - Extremities Exam Extremities exam: Positive for: pedal edema (B/L), tenderness (L/arm covered with dressing and cast. no neuro or vasc compromise noticed). Negative for: calf tenderness - Back Exam Back exam: NORMAL INSPECTION. absent: CVA tenderness (L), CVA tenderness (R) - Neurological Exam Neurological exam: Alert, Oriented x3, Reflexes Normal - Psychiatric Exam Psychiatric exam: Normal Affect, Normal Mood - Skin Skin Exam: Normal Color, Warm Results - Vital Signs Recent Vital Signs: Last Vital Signs Temp 97.7 F 11/10/16 08:12 Pulse 81 11/10/16 08:12 Resp 20 11/10/16 08:12 BP 135/80 11/10/16 08:12 Pulse Ox 100 11/10/16 08:12 - Labs Labs: Laboratory Results - last 24 hr 11/09/16 11/09/16 11/09/16 16:40 20:30 23:13 POC Glucose (mg/dL) 229 H 166 H Urine Color Yellow Urine Clarity Cloudy Urine pH 6.0 Ur Specific [place] 1.009 Urine Protein 30 Urine Glucose (UA) 50 Urine Ketones Negative Urine Blood Moderate Urine Nitrate Negative Urine Bilirubin Negative Urine Urobilinogen 0.2-1.0 Ur Leukocyte Esterase Large Urine RBC (Auto) 24 H Urine WBC Clumps (Auto) Many H Urine Microscopic WBC 1339 H Ur Squamous Epith Cells 2 Urine Yeast (Budding) Occ H 11/10/16 05:16 POC Glucose (mg/dL) 228 H Urine Color Urine Clarity Urine pH Ur Specific [place] Urine Protein Urine Glucose (UA) Urine Ketones Urine Blood Urine Nitrate Urine Bilirubin Urine Urobilinogen Ur Leukocyte Esterase Urine RBC (Auto) Urine WBC Clumps (Auto) Urine Microscopic WBC Ur Squamous Epith Cells Urine Yeast (Budding) Assessment & Plan - Assessment and Plan (Free Text) Assessment: The patient is a 75 y/o woman w/ PMHx of HLD, COPD, Anxiety/Depression, CKD, HTN , DM II admitted to TCU for PT/OT treatment s/p L/distal radius ORIF Plan: 1. Left distal radial fracture(stable) - S/P ORIF L/distal radius POD 2 - Morphine 2 mg IV Q4h and 4 mg IV Q6 prn for pain - Percocet 2 tab PO Q4 prn - PT eval/treat 2. DM II uncontrolled - Asymptomatic, non-compliant with insulin therapy - accuchecks/ACHS - Medium dose SSI - Cont Prandin and Glucotrol - HgbA1c 08/31/2016: 13.6 - heart healthy, moderate consistent carbohydrate diet - childbirth educator consult - F/U Endocrinology Dr Fredi hunter - Patient will need Home health nursing services for DM teaching management after DC from hosp. 3. Asymptomatic Bacteriuria - UCx: Klebsiella Pneu sensitive to Ceftriaxone - denies dysuria - ceftriaxone 1 gm IV daily to complete 7 days( Day 4) 4. CKD (Stage 4) - stable - GFR 20 - Nephro consulted: Spoke with Suzanne Rivera on 11/09/16 Recommens: Renagel, Vit D, Valsartan, Renal US for morphology and Bladder US(Postvoid) 5. HTN - Controlled, stable - continue with home meds: Valsartan 80 mg PO daily - Cardiology(Dr Griffiths) evaluated patient. Will continue F/U recs 6. HLD - continue with atorvastatin 40 mg PO daily 7. Anxiety/Depression - stable - continue with home meds: Paroxetine 20 mg PO daily - Monitor 8. DVT ppx - SCDs - Lovenox 40mg daily <Min Woody - Last Filed: 11/11/16 06:42> Results - Vital Signs Recent Vital Signs: Last Vital Signs Temp 97.9 F 11/10/16 20:31 Pulse 82 11/10/16 20:31 Resp 20 11/10/16 20:31 BP 138/72 11/10/16 20:31 Pulse Ox 97 11/10/16 20:31 - Labs Labs: Laboratory Results - last 24 hr 11/10/16 11/10/16 11/10/16 11:04 17:20 20:51 POC Glucose (mg/dL) 216 H 193 H 223 H 11/11/16 05:33 POC Glucose (mg/dL) 135 H Attending/Attestation - Attestation I have personally seen and examined this patient.: Yes I have fully participated in the care of the patient.: Yes I have reviewed all pertinent clinical information: Yes
--- NOTE | 2016-11-10 11:38 | CP.PCM.CON ---
History of Present Illness - History of Present Illness History of Present Illness: THE PATIENT IS A 76 YEAR OLD FEMALE WHO TRIPPED ON THE STAIRS ONE WEEK AGO AND SUSTAINED A LEFT WRIST FRACTURE AND HAD ORIF OF THE LEFT DISTAL RADIUS. SHE IS NOW ADMITTED TO TCU FOR SUBACUTE REHAB. SHE ALSO HAS A HISTORY OF HYPERTENSION , CKD, HYPERLIPIDEMIA AND TYPE 2 DM. SHE DOESN'T HAVE ANY HISTORY OF CAD AND HAD A NEGATIVE STRESS TEST AN AN ECHOCARDIOGRAM WITH A LVEF OF 70% IN DECEMBER OF 2015. DR ARREGUIN ASKED ME TO FOLLOW THE PATIENT IN TCU. SHE DENIES ANY CHEST PAIN OR SOB. Past Patient History - Infectious Disease Hx of Infectious Diseases: None - Past Medical History & Family History Past Medical History?: Yes - Past Social History Smoking Status: Never Smoked - CARDIAC Hx Cardiac Disorders: Yes Hx Hypercholesterolemia: Yes Hx Hypertension: Yes - PULMONARY Hx Respiratory Disorders: Yes Hx Chronic Obstructive Pulmonary Disease (COPD): Yes Hx Pneumonia: Yes - NEUROLOGICAL Hx Neurological Disorder: No - HEENT Hx HEENT Problems: Yes Other/Comment: uses eye glasses - RENAL Hx Chronic Kidney Disease: Yes Other/Comment: Chronic kidney disease - ENDOCRINE/METABOLIC Hx Endocrine Disorders: Yes Hx Diabetes Mellitus Type 2: Yes - HEMATOLOGICAL/ONCOLOGICAL Hx Blood Disorders: No Hx Human Immunodeficiency Virus (HIV): No - INTEGUMENTARY Hx Dermatological Problems: No - MUSCULOSKELETAL/RHEUMATOLOGICAL Hx Musculoskeletal Disorders: Yes Hx Falls: Yes - GASTROINTESTINAL Hx Gastrointestinal Disorders: No - GENITOURINARY/GYNECOLOGICAL Hx Genitourinary Disorders: No - PSYCHIATRIC Hx Psychophysiologic Disorder: No Hx Substance Use: No - SURGICAL HISTORY Hx Surgeries: Yes Hx Tonsillectomy: Yes - ANESTHESIA Hx Anesthesia: No Hx Anesthesia Reactions: No Hx Malignant Hyperthermia: No Has any member of the family had a problem w/ anesthesia?: No Meds Allergies/Adverse Reactions: Allergies Allergy/AdvReac Type Severity Reaction Status Date / Time No Known Allergies Allergy Verified 01/04/16 20:19 - Medications Medications: Current Medications Atorvastatin Calcium (Lipitor) 40 mg PO HS [facility] Cholecalciferol (Vitamin D) 1,000 iu PO DAILY [facility] Last Admin: 11/10/16 08:18 Dose: 1,000 iu Dextrose (Dextrose 50% Inj) 0 ml IV STAT PRN; Protocol PRN Reason: Hyglycemia Protocol Dextrose (Glutose 15) 0 gm PO ONCE PRN; Protocol PRN Reason: Hypoglycemia Protocol Glipizide (Glucotrol) 10 mg PO BIDAC [facility] Last Admin: 11/10/16 08:18 Dose: 10 mg Glucagon (Glucagen Diagnostic Kit) 0 mg IM STAT PRN; Protocol PRN Reason: Hypoglycemia Protocol Heparin Sodium (Porcine) (Heparin) 5,000 units SC Q12 [facility] PRN Reason: Protocol Last Admin: 11/10/16 08:19 Dose: 5,000 units Ceftriaxone Sodium 1 gm/ (Sodium Chloride) 100 mls @ 100 mls/hr IVPB DAILY@ 1700 [facility] Last Admin: 11/10/16 09:30 Dose: Not Given Insulin Human Regular (Humulin R) 0 units SC ACCU-CHECK [facility] PRN Reason: Protocol Last Admin: 11/10/16 07:37 Dose: 3 unit Morphine Sulfate (Morphine) 4 mg IVP Q4 PRN PRN Reason: Pain, severe (8-10) Ondansetron HCl (Zofran Inj) 4 mg IVP Q4 PRN PRN Reason: Nausea/Vomiting Oxycodone/Acetaminophen (Percocet 5/325 Mg Tab) 2 tab PO Q4 PRN PRN Reason: Pain, moderate (4-7) Stop: 11/12/16 16:21 Paroxetine HCl (Paxil) 20 mg PO DAILY [facility] Last Admin: 11/10/16 08:18 Dose: 20 mg Phenol/Menthol (Phenaseptic 1.4% Throat [place]) 1 spry MT Q2 PRN PRN Reason: Sore Throat Repaglinide (Prandin) 2 mg PO TIDWM [facility] Last Admin: 11/10/16 08:18 Dose: 2 mg Saccharomyces Boulardii (Florastor) 250 mg PO BID [facility] Last Admin: 11/10/16 08:18 Dose: 250 mg Senna/Docusate Sodium (Senokot S 50 Mg-8.6 Mg) 2 tab PO HS [facility] Last Admin: 11/09/16 22:02 Dose: 2 tab Sevelamer HCl (Renagel) 800 mg PO TID [facility] Last Admin: 11/10/16 08:18 Dose: 800 mg Valsartan (Diovan) 80 mg PO DAILY [facility] Last Admin: 11/10/16 08:18 Dose: 80 mg Physical Exam - Respiratory Exam Respiratory Exam: Clear to Auscultation Bilateral - Cardiovascular Exam Cardiovascular Exam: REGULAR RHYTHM, +S1, +S2 Results - Vital Signs Recent Vital Signs: Last Vital Signs Temp 97.7 F 11/10/16 08:12 Pulse 81 11/10/16 08:12 Resp 20 11/10/16 08:12 BP 135/80 11/10/16 08:12 Pulse Ox 100 11/10/16 08:12 - Labs Result Diagrams: 11/11/16 06:28 Labs: Laboratory Results - last 24 hr 11/09/16 11/09/16 11/09/16 16:40 20:30 23:13 POC Glucose (mg/dL) 229 H 166 H Urine Color Yellow Urine Clarity Cloudy Urine pH 6.0 Ur Specific [place] 1.009 Urine Protein 30 Urine Glucose (UA) 50 Urine Ketones Negative Urine Blood Moderate Urine Nitrate Negative Urine Bilirubin Negative Urine Urobilinogen 0.2-1.0 Ur Leukocyte Esterase Large Urine RBC (Auto) 24 H Urine WBC Clumps (Auto) Many H Urine Microscopic WBC 1339 H Ur Squamous Epith Cells 2 Urine Yeast (Budding) Occ H 11/10/16 11/10/16 05:16 11:04 POC Glucose (mg/dL) 228 H 216 H Urine Color Urine Clarity Urine pH Ur Specific [place] Urine Protein Urine Glucose (UA) Urine Ketones Urine Blood Urine Nitrate Urine Bilirubin Urine Urobilinogen Ur Leukocyte Esterase Urine RBC (Auto) Urine WBC Clumps (Auto) Urine Microscopic WBC Ur Squamous Epith Cells Urine Yeast (Budding) Assessment & Plan - Assessment and Plan (Free Text) Assessment: S/P ORIF OF FLET DISTAL RADIUS FRACTURE HYPERTENSION HYPERLIPIDEMIA TYPE 2 DM Plan: CONTINUE VALSARTAN, ATORVASTATIN AND GLUCOTROL CONTINUE SUBACUTE REHAB
--- NOTE | 2016-11-10 15:15 | PN ---
DATE: 11/10/2016 ROOM: 3 [facility]. This is a 76-year-old female with recent uncontrolled type 2 insulin-requiring diabetes, presenting h ere with an accidental fall and sustained a fracture in the left wrist area and underwent a left open reduction and internal fixation procedure yesterday as noted thereof. She is being followed closely now for metabolic management because of persistent hyperglycemic accelerations as noted thereof. He r glucose levels today have ranged from 216-228 and 229 mg/dL. Her latest chemistries include a BUN of 30, sodium 133, potassium 5.1, chloride 109, CO2 of 15, glucose 216 and creatinine 2.4. Her hemog lobin A1c is 13.6%, which is quite elevated and indicative of suboptimal metabolic control of her senait betic condition. However, this is not the recent A1c. This was done in August of this year and we are awaiting the repeat levels as ordered. So, at this time, we will modify her current regimen and add basal insulin with Levemir at 12 units s ubQ at bedtime daily to start tonight. We will also continue the dual oral hypoglycemic drug therapy with glipizide given as 10 mg b.i.d. before meals and Prandin given as 2 mg p.o. t.i.d. with meals a s ordered. We will modify the coverage scale to obviate hypoglycemia and detailed orders have been wicho meza. We will follow. Annelise Rai MD cc: [id number] TT: 11/10/2016 15:15:04 Confirmation # [id number] Dictation # [id number] sn
--- NOTE | 2016-11-10 20:02 | CP.PCM.CON ---
History of Present Illness - History of Present Illness History of Present Illness: REASONS FOR CONSULT : CKD STAGE 4 MILD HYPONATREMIA MILD HYPERKALEMIA ANEMIA OF CKD .. H/H ACCEPTABLE ALL EMR REVIEWDED .. CHARTS FROM DR MORRELL REVIEWED .. PT WAS SEEN AT TCU . PT IS WELL KNOWN TO DR MORRELL WHOM I AM COVERING 75 yo F with PMHx HLD, COPD, Anxiety/Depression, CKD, HTN, DM II was recently admitted to [facility] after she presented to ED because of a fall. Wrist XRay and UE CT were performed and the diagnosis of L/distal radius Fx was made. Patient successfully underwent ORIF of L/distal radius by Dr Carrizales(Orthopedic Surgeon ) after admitted. Patient had been non compliant with home meds, BS levels were elevated and kidney function was impaired, GFR 20. She had been evaluated by Nephrology in the past. Patient was treated with insulin, pain meds, home meds for HTN, DM, Depression and evaluated by Ortho, Cardiology, Nephrology. She is now in TCU for PT/OT services. Patient seen today at bedside, states she feels better, pain controlled with pain meds, denies CP, SOB, Palpitations, Headache, Abd pain, diarrhea or difficulty urinating. Patient was also found to have asymptomatic bacteriuria while in the hosp sensitive to Ceftriaxone and she is on abx treatment. Present on Admission Past Patient History - Infectious Disease Hx of Infectious Diseases: None - Past Medical History & Family History Past Medical History?: Yes - Past Social History Smoking Status: Never Smoked - CARDIAC Hx Cardiac Disorders: Yes Hx Hypercholesterolemia: Yes Hx Hypertension: Yes - PULMONARY Hx Respiratory Disorders: Yes Hx Chronic Obstructive Pulmonary Disease (COPD): Yes Hx Pneumonia: Yes - NEUROLOGICAL Hx Neurological Disorder: No - HEENT Hx HEENT Problems: Yes Other/Comment: uses eye glasses - RENAL Hx Chronic Kidney Disease: Yes Other/Comment: Chronic kidney disease - ENDOCRINE/METABOLIC Hx Endocrine Disorders: Yes Hx Diabetes Mellitus Type 2: Yes - HEMATOLOGICAL/ONCOLOGICAL Hx Blood Disorders: No Hx Human Immunodeficiency Virus (HIV): No - INTEGUMENTARY Hx Dermatological Problems: No - MUSCULOSKELETAL/RHEUMATOLOGICAL Hx Musculoskeletal Disorders: Yes Hx Falls: Yes - GASTROINTESTINAL Hx Gastrointestinal Disorders: No - GENITOURINARY/GYNECOLOGICAL Hx Genitourinary Disorders: No - PSYCHIATRIC Hx Psychophysiologic Disorder: No Hx Substance Use: No - SURGICAL HISTORY Hx Surgeries: Yes Hx Tonsillectomy: Yes - ANESTHESIA Hx Anesthesia: No Hx Anesthesia Reactions: No Hx Malignant Hyperthermia: No Has any member of the family had a problem w/ anesthesia?: No Meds Allergies/Adverse Reactions: Allergies Allergy/AdvReac Type Severity Reaction Status Date / Time No Known Allergies Allergy Verified 01/04/16 20:19 - Medications Medications: Current Medications Atorvastatin Calcium (Lipitor) 40 mg PO HS [facility] Cholecalciferol (Vitamin D) 1,000 iu PO DAILY [facility] Last Admin: 11/10/16 08:18 Dose: 1,000 iu Dextrose (Dextrose 50% Inj) 0 ml IV STAT PRN; Protocol PRN Reason: Hyglycemia Protocol Dextrose (Glutose 15) 0 gm PO ONCE PRN; Protocol PRN Reason: Hypoglycemia Protocol Glipizide (Glucotrol) 10 mg PO BIDAC [facility] Last Admin: 11/10/16 17:26 Dose: 10 mg Glucagon (Glucagen Diagnostic Kit) 0 mg IM STAT PRN; Protocol PRN Reason: Hypoglycemia Protocol Heparin Sodium (Porcine) (Heparin) 5,000 units SC Q12 [facility] PRN Reason: Protocol Last Admin: 11/10/16 08:19 Dose: 5,000 units Ceftriaxone Sodium 1 gm/ (Sodium Chloride) 100 mls @ 100 mls/hr IVPB DAILY@ 1700 [facility] Last Admin: 11/10/16 17:25 Dose: 100 mls/hr Insulin Detemir (Levemir) 12 units SC HS [facility] Insulin Human Regular (Humulin R) 0 units SC ACHS [facility] PRN Reason: Protocol Last Admin: 11/10/16 17:27 Dose: Not Given Morphine Sulfate (Morphine) 4 mg IVP Q4 PRN PRN Reason: Pain, severe (8-10) Ondansetron HCl (Zofran Inj) 4 mg IVP Q4 PRN PRN Reason: Nausea/Vomiting Oxycodone/Acetaminophen (Percocet 5/325 Mg Tab) 2 tab PO Q4 PRN PRN Reason: Pain, moderate (4-7) Stop: 11/12/16 16:21 Paroxetine HCl (Paxil) 20 mg PO DAILY [facility] Last Admin: 11/10/16 08:18 Dose: 20 mg Phenol/Menthol (Phenaseptic 1.4% Throat [place]) 1 spry MT Q2 PRN PRN Reason: Sore Throat Repaglinide (Prandin) 2 mg PO TIDWM [facility] Last Admin: 11/10/16 17:26 Dose: 2 mg Saccharomyces Boulardii (Florastor) 250 mg PO BID [facility] Last Admin: 11/10/16 17:26 Dose: 250 mg Sevelamer HCl (Renagel) 800 mg PO TID [facility] Last Admin: 11/10/16 17:26 Dose: 800 mg Valsartan (Diovan) 80 mg PO DAILY [facility] Last Admin: 11/10/16 08:18 Dose: 80 mg Results - Vital Signs Recent Vital Signs: Last Vital Signs Temp 97.7 F 11/10/16 16:40 Pulse 90 11/10/16 16:40 Resp 20 11/10/16 16:40 BP 122/77 11/10/16 16:40 Pulse Ox 97 11/10/16 16:40 - Labs Labs: Laboratory Results - last 24 hr 11/09/16 11/09/16 11/10/16 20:30 23:13 05:16 POC Glucose (mg/dL) 166 H 228 H Urine Color Yellow Urine Clarity Cloudy Urine pH 6.0 Ur Specific [place] 1.009 Urine Protein 30 Urine Glucose (UA) 50 Urine Ketones Negative Urine Blood Moderate Urine Nitrate Negative Urine Bilirubin Negative Urine Urobilinogen 0.2-1.0 Ur Leukocyte Esterase Large Urine RBC (Auto) 24 H Urine WBC Clumps (Auto) Many H Urine Microscopic WBC 1339 H Ur Squamous Epith Cells 2 Urine Yeast (Budding) Occ H 11/10/16 11/10/16 11:04 17:20 POC Glucose (mg/dL) 216 H 193 H Urine Color Urine Clarity Urine pH Ur Specific [place] Urine Protein Urine Glucose (UA) Urine Ketones Urine Blood Urine Nitrate Urine Bilirubin Urine Urobilinogen Ur Leukocyte Esterase Urine RBC (Auto) Urine WBC Clumps (Auto) Urine Microscopic WBC Ur Squamous Epith Cells Urine Yeast (Budding) Assessment & Plan - Assessment and Plan (Free Text) Assessment: CKD STAGE 4 .. STABLE RENAL FUNCTION REVIEING DR MORRELL I FOUND RENAL SONOGRAM FROM 3 YEARS AGO THAT SHOWED ADELAIDA HYDRONEPHROSIS WILL DO RENAL SONO FOR F/U P : C/O CURRENT MEDS RENAL AND DIABETIC DIET WILL F/U - Date & Time Date: 11/10/16 Time: 14:00
[2016-11-10] MEDS: Insulin Detemir 100 Units/ml Inj SC SCH (21:32)
[2016-11-11] MEDS: Insulin Regular 100 units/ml SC SCH ×4 (06:32→21:08)
[2016-11-11 06:55] LABS: ALB/GLOB RATIO 0.8 (1.0-2.1); BILIRUBIN,TOTAL 0.4 mg/dl (0.2-1.3); CALCIUM 9.3 mg/dL (8.4-10.2); POTASSIUM 3.9 MMOL/L (3.6-5.0); TOTAL PROTEIN 6.9 G/DL (6.3-8.2)
--- NOTE | 2016-11-11 06:57 | CP.PCM.PN ---
Subjective - Date & Time of Evaluation Date of Evaluation: 11/11/16 Time of Evaluation: 06:45 - Subjective Subjective: no complaints no adverse events overnight Objective - Vital Signs/Intake and Output Vital Signs (last 24 hours): Temp Pulse Resp BP Pulse Ox 97.9 F 82 20 138/72 97 11/10/16 20:31 11/10/16 20:31 11/10/16 20:31 11/10/16 20:31 11/10/16 20:31 - Medications Medications: Current Medications Atorvastatin Calcium (Lipitor) 40 mg PO [facility] Last Admin: 11/10/16 21:28 Dose: 40 mg Cholecalciferol (Vitamin D) 1,000 iu PO DAILY [facility] Last Admin: 11/10/16 08:18 Dose: 1,000 iu Dextrose (Dextrose 50% Inj) 0 ml IV STAT PRN; Protocol PRN Reason: Hyglycemia Protocol Dextrose (Glutose 15) 0 gm PO ONCE PRN; Protocol PRN Reason: Hypoglycemia Protocol Glipizide (Glucotrol) 10 mg PO BIDAC [facility] Last Admin: 11/10/16 17:26 Dose: 10 mg Glucagon (Glucagen Diagnostic Kit) 0 mg IM STAT PRN; Protocol PRN Reason: Hypoglycemia Protocol Heparin Sodium (Porcine) (Heparin) 5,000 units SC Q12 [facility] PRN Reason: Protocol Last Admin: 11/10/16 21:28 Dose: 5,000 units Ceftriaxone Sodium 1 gm/ (Sodium Chloride) 100 mls @ 100 mls/hr IVPB DAILY@ 1700 [facility] Last Admin: 11/10/16 17:25 Dose: 100 mls/hr Insulin Detemir (Levemir) 12 units SC [facility] Last Admin: 11/10/16 21:32 Dose: 12 units Insulin Human Regular (Humulin R) 0 units SC [facility] PRN Reason: Protocol Last Admin: 11/11/16 06:32 Dose: Not Given Morphine Sulfate (Morphine) 4 mg IVP Q4 PRN PRN Reason: Pain, severe (8-10) Ondansetron HCl (Zofran Inj) 4 mg IVP Q4 PRN PRN Reason: Nausea/Vomiting Oxycodone/Acetaminophen (Percocet 5/325 Mg Tab) 2 tab PO Q4 PRN PRN Reason: Pain, moderate (4-7) Stop: 05/06/17 16:21 Paroxetine HCl (Paxil) 20 mg PO DAILY [facility] Last Admin: 11/10/16 08:18 Dose: 20 mg Phenol/Menthol (Phenaseptic 1.4% Throat [place]) 1 spry MT Q2 PRN PRN Reason: Sore Throat Repaglinide (Prandin) 2 mg PO TIDWM [facility] Last Admin: 11/10/16 17:26 Dose: 2 mg Saccharomyces Boulardii (Florastor) 250 mg PO BID [facility] Last Admin: 11/10/16 17:26 Dose: 250 mg Sevelamer HCl (Renagel) 800 mg PO TID [facility] Last Admin: 11/10/16 17:26 Dose: 800 mg Valsartan (Diovan) 80 mg PO DAILY [facility] Last Admin: 11/10/16 08:18 Dose: 80 mg - Constitutional Appears: No Acute Distress - Head Exam Head Exam: NORMAL INSPECTION - Eye Exam Eye Exam: Normal appearance - ENT Exam ENT Exam: Mucous Membranes Moist - Neck Exam Neck Exam: Full ROM, Normal Inspection. absent: Thyromegaly - Respiratory Exam Respiratory Exam: Decreased Breath Sounds, NORMAL BREATHING PATTERN - Cardiovascular Exam Cardiovascular Exam: REGULAR RHYTHM - GI/Abdominal Exam GI & Abdominal Exam: Soft, Normal Bowel Sounds - Extremities Exam Extremities Exam: absent: Calf Tenderness, Pedal Edema Additional comments: left arm in a cast no edema of the fingers freely moves left fingers - Neurological Exam Neurological Exam: Alert, Awake, Oriented x3 - Psychiatric Exam Psychiatric exam: Normal Affect, Normal Mood - Skin Skin Exam: Intact, Normal Color, Warm Assessment and Plan (1) Chronic kidney disease (CKD), stage IV (severe) Status: Chronic (2) Asymptomatic bacteriuria Status: Acute (3) Distal radial fracture Status: Acute (4) Uncontrolled diabetes mellitus Status: Acute (5) Depression Status: Chronic (6) Hypertension Status: Chronic (7) Hyperlipidemia Status: Chronic (8) Hydronephrosis Status: Chronic - Assessment and Plan (Free Text) Assessment: continue current care plan all notes reviewed await renal ultrasound re-educated patient that she needs to stick to the plan outlined by all of her doctors compliance is paramount fall precautions
[2016-11-11 07:22] LABS: THYROID STIMULATING HORMONE 1.31 mIU/ML (0.46-4.68)
[2016-11-11] MEDS: Saccharomyces Boulardi 250 mg Cap PO SCH ×2 (08:40→17:32)
--- NOTE | 2016-11-11 09:28 | CP.PCM.PN ---
Subjective - Date & Time of Evaluation Date of Evaluation: 11/11/16 Time of Evaluation: 09:30 - Subjective Subjective: NO CHEST PAIN OR SOB Objective - Vital Signs/Intake and Output Vital Signs (last 24 hours): Temp Pulse Resp BP Pulse Ox 99.1 F 86 20 145/78 99 11/11/16 08:21 11/11/16 08:21 11/11/16 08:21 11/11/16 08:21 11/11/16 08:21 - Medications Medications: Current Medications Atorvastatin Calcium (Lipitor) 40 mg PO [facility] Last Admin: 11/10/16 21:28 Dose: 40 mg Cholecalciferol (Vitamin D) 1,000 iu PO DAILY [facility] Last Admin: 11/11/16 08:41 Dose: 1,000 iu Dextrose (Dextrose 50% Inj) 0 ml IV STAT PRN; Protocol PRN Reason: Hyglycemia Protocol Dextrose (Glutose 15) 0 gm PO ONCE PRN; Protocol PRN Reason: Hypoglycemia Protocol Glipizide (Glucotrol) 10 mg PO BIDAC [facility] Last Admin: 11/11/16 06:54 Dose: 10 mg Glucagon (Glucagen Diagnostic Kit) 0 mg IM STAT PRN; Protocol PRN Reason: Hypoglycemia Protocol Heparin Sodium (Porcine) (Heparin) 5,000 units SC Q12 [facility] PRN Reason: Protocol Last Admin: 11/11/16 08:40 Dose: 5,000 units Ceftriaxone Sodium 1 gm/ (Sodium Chloride) 100 mls @ 100 mls/hr IVPB DAILY@ 1700 [facility] Last Admin: 11/10/16 17:25 Dose: 100 mls/hr Insulin Detemir (Levemir) 12 units SC [facility] Last Admin: 11/10/16 21:32 Dose: 12 units Insulin Human Regular (Humulin R) 0 units SC [facility] PRN Reason: Protocol Last Admin: 11/11/16 06:32 Dose: Not Given Morphine Sulfate (Morphine) 4 mg IVP Q4 PRN PRN Reason: Pain, severe (8-10) Ondansetron HCl (Zofran Inj) 4 mg IVP Q4 PRN PRN Reason: Nausea/Vomiting Oxycodone/Acetaminophen (Percocet 5/325 Mg Tab) 2 tab PO Q4 PRN PRN Reason: Pain, moderate (4-7) Stop: 11/12/16 16:21 Paroxetine HCl (Paxil) 20 mg PO DAILY [facility] Last Admin: 11/11/16 08:40 Dose: 20 mg Phenol/Menthol (Phenaseptic 1.4% Throat [place]) 1 spry MT Q2 PRN PRN Reason: Sore Throat Repaglinide (Prandin) 2 mg PO TIDWM [facility] Last Admin: 11/11/16 08:40 Dose: 2 mg Saccharomyces Boulardii (Florastor) 250 mg PO BID [facility] Last Admin: 11/11/16 08:40 Dose: 250 mg Sevelamer HCl (Renagel) 800 mg PO TID [facility] Last Admin: 11/11/16 08:41 Dose: 800 mg Valsartan (Diovan) 80 mg PO DAILY [facility] Last Admin: 11/11/16 08:40 Dose: 80 mg - Labs Labs: 11/11/16 06:28 - Respiratory Exam Respiratory Exam: Clear to Ausculation Bilateral - Cardiovascular Exam Cardiovascular Exam: REGULAR RHYTHM, +S1, +S2 Assessment and Plan - Assessment and Plan (Free Text) Assessment: HYPERTENSION HYPERLIPIDEMIA TYPE 2 DM LEFT RADIUS FRACTURE Plan: CONTINUE VALSARTAN AND ATORVASTATIN CONTINUE SUBACUTE REHAB
[2016-11-11] MEDS: Sodium Chloride 0.9% 500 ML IV SCH ×3 (10:40→20:23)
--- NOTE | 2016-11-11 11:46 | PN ---
DATE: 11/11/2016 ROOM: 713. This is a 76-year-old female with recent uncontrolled type 2 insulin-requiring diabetes, now being fo llowed closely for metabolic management. She also underwent a left open reduction and internal fixat ion of a left wrist fracture. Glycemic levels are fluctuating, but much improved at this time and th e latest glucose levels have ranged from 135-193 and 223 mg/dL. Her latest chemistries include a BUN of 40, sodium 139, potassium 3.9, chloride 110, CO2 17 and glucose 134, creatinine 2.2. So at this time, we will continue the same basal insulin given as Levemir at 12 units subQ at bedtime daily as o rdered. We will continue also the dual oral hypoglycemic therapy as Prandin given as 2 mg t.i.d. wit h meals as given. b.i.d. before meals. We will follow and advise accordingly. Annelise Rai MD cc: [id number] TT: 11/11/2016 11:45:29 Confirmation # [id number] Dictation # [id number] tsering
--- NOTE | 2016-11-11 14:44 | CP.PCM.PCO ---
Physician Communication Note - Physician Communication Note Physician Communication Note: fm resident has cancelled consult. pt was "tired" this am.
[2016-11-11] MEDS: Insulin Detemir 100 Units/ml Inj SC SCH (21:04)
--- NOTE | 2016-11-11 21:47 | CP.PCM.PN ---
Subjective - Date & Time of Evaluation Date of Evaluation: 11/11/16 Time of Evaluation: 15:00 - Subjective Subjective: SEEN ON RENAL F/U C/O DIARRHIA .. C DIFF +VE C/O TIREDNESS TODAY ALSO SEVERE LOWER URINARY SYMPTOMS RENAL FUNCTION STABLE Objective - Vital Signs/Intake and Output Vital Signs (last 24 hours): Temp Pulse Resp BP Pulse Ox 99.0 F 84 20 135/68 97 11/11/16 19:47 11/11/16 19:47 11/11/16 19:47 11/11/16 19:47 11/11/16 19:47 - Medications Medications: Current Medications Atorvastatin Calcium (Lipitor) 40 mg PO HS [facility] Last Admin: 11/11/16 21:04 Dose: 40 mg Cholecalciferol (Vitamin D) 1,000 iu PO DAILY [facility] Last Admin: 11/11/16 08:41 Dose: 1,000 iu Dextrose (Dextrose 50% Inj) 0 ml IV STAT PRN; Protocol PRN Reason: Hyglycemia Protocol Dextrose (Glutose 15) 0 gm PO ONCE PRN; Protocol PRN Reason: Hypoglycemia Protocol Glipizide (Glucotrol) 10 mg PO BIDAC [facility] Last Admin: 11/11/16 17:32 Dose: 10 mg Glucagon (Glucagen Diagnostic Kit) 0 mg IM STAT PRN; Protocol PRN Reason: Hypoglycemia Protocol Heparin Sodium (Porcine) (Heparin) 5,000 units SC Q12 [facility] PRN Reason: Protocol Last Admin: 11/11/16 20:24 Dose: 5,000 units Sodium Chloride (Sodium Chloride 0.9%) 500 mls @ 100 mls/hr IV .Q5H [facility] Last Admin: 11/11/16 20:23 Dose: 100 mls/hr Insulin Detemir (Levemir) 12 units SC HS [facility] Last Admin: 11/11/16 21:04 Dose: 12 units Insulin Human Regular (Humulin R) 0 units SC ACHS [facility] PRN Reason: Protocol Last Admin: 11/11/16 21:08 Dose: Not Given Metronidazole (Flagyl) 500 mg PO Q8 [facility] Last Admin: 11/11/16 17:32 Dose: 500 mg Morphine Sulfate (Morphine) 4 mg IVP Q4 PRN PRN Reason: Pain, severe (8-10) Ondansetron HCl (Zofran Inj) 4 mg IVP Q4 PRN PRN Reason: Nausea/Vomiting Oxycodone/Acetaminophen (Percocet 5/325 Mg Tab) 2 tab PO Q4 PRN PRN Reason: Pain, moderate (4-7) Stop: 11/12/16 16:21 Paroxetine HCl (Paxil) 20 mg PO DAILY [facility] Last Admin: 11/11/16 08:40 Dose: 20 mg Phenol/Menthol (Phenaseptic 1.4% Throat [place]) 1 spry MT Q2 PRN PRN Reason: Sore Throat Repaglinide (Prandin) 2 mg PO TIDWM [facility] Last Admin: 11/11/16 08:40 Dose: 2 mg Saccharomyces Boulardii (Florastor) 250 mg PO BID [facility] Last Admin: 11/11/16 17:32 Dose: 250 mg Sevelamer HCl (Renagel) 800 mg PO TID [facility] Last Admin: 11/11/16 17:32 Dose: 800 mg Valsartan (Diovan) 80 mg PO DAILY [facility] Last Admin: 11/11/16 08:40 Dose: 80 mg - Labs Labs: 11/11/16 06:28 Assessment and Plan - Assessment and Plan (Free Text) Assessment: CKD STAGE 4 STABLE ELECTROLYTES OK HAS CHRONIC HYDRONEPHROSIS .. NEEDS F/U SONO H/O BLADDER PROLAPSE AND BLADDER DIVERTICULUM AROUND 50 CC MET ACIDOSIS .. ADD NA BICARB MULTIPLE CO MORBIDITIES P : RENAL SONO C/O CURRENT CARE ADD NA BICARB 650 PO BID
[2016-11-12] MEDS: Sodium Chloride 0.9% 500 ML IV SCH ×3 (00:45→14:05)
[2016-11-12] MEDS: Insulin Regular 100 units/ml SC SCH ×4 (07:06→21:49)
[2016-11-12 07:57] LABS: BASO # 0.1 K/uL (0.0-0.2); BASO % 0.3 % (0.0-2.0); EOS # 0.4 K/uL (0.0-0.7); EOS % 1.1 % (0.0-4.0); HEMATOCRIT 34.3 % (34.0-47.0); LYMPH # 2.8 K/uL (1.0-4.3); LYMPH % 7.4 % (20.0-40.0); MEAN CELL VOLUME 82.1 fl (81.0-99.0); MEAN CORPUSCULAR HEMOGLOBIN 25.3 pg (27.0-31.0); MEAN CORPUSCULAR HGB CONC 30.8 g/dL (33.0-37.0); MEAN PLATELET VOLUME 7.3 fl (7.2-11.7); MONO # 1.8 K/uL (0.0-0.8); MONO % 4.8 % (0.0-10.0); NEUT # 32.5 K/uL (1.8-7.0); NEUT % 86.4 % (50.0-75.0); PLATELET COUNT 416 K/uL (130-400); RED CELL DISTRIBUTION WIDTH 14.6 % (11.5-14.5)
[2016-11-12 08:01] LABS: ALB/GLOB RATIO 0.8 (1.0-2.1); BILIRUBIN,TOTAL 0.4 mg/dl (0.2-1.3); CALCIUM 8.6 mg/dL (8.4-10.2); POTASSIUM 3.5 MMOL/L (3.6-5.0); TOTAL PROTEIN 6.2 G/DL (6.3-8.2)
--- NOTE | 2016-11-12 08:10 | CP.PCM.PN ---
Subjective - Date & Time of Evaluation Date of Evaluation: 11/12/16 Time of Evaluation: 07:30 - Subjective Subjective: Pt is being follow up for post op check of left distal radius orif and +cdiff. Pt states she feels tired and believes to be due lack of sleep last night. Pt aslo c/o of 4 nonbloody loose bowel yesterday and one this morning. Pt reports mild left side abdominal pain and decrease in appetite. Pt reports left arm pain improved. Otherwise denies fever, nausea, vomiting. Denies sob, palpitation, chest pain. Denies hematuria, flank pain, calf tenderness. Objective - Vital Signs/Intake and Output Vital Signs (last 24 hours): Temp Pulse Resp BP Pulse Ox 99.0 F 84 20 135/68 97 11/11/16 19:47 11/11/16 19:47 11/11/16 19:47 11/11/16 19:47 11/11/16 19:47 - Medications Medications: Current Medications Atorvastatin Calcium (Lipitor) 40 mg PO HS [facility] Last Admin: 11/11/16 21:04 Dose: 40 mg Cholecalciferol (Vitamin D) 1,000 iu PO DAILY [facility] Last Admin: 11/11/16 08:41 Dose: 1,000 iu Dextrose (Dextrose 50% Inj) 0 ml IV STAT PRN; Protocol PRN Reason: Hyglycemia Protocol Dextrose (Glutose 15) 0 gm PO ONCE PRN; Protocol PRN Reason: Hypoglycemia Protocol Glipizide (Glucotrol) 10 mg PO BIDAC [facility] Last Admin: 11/12/16 07:01 Dose: 10 mg Glucagon (Glucagen Diagnostic Kit) 0 mg IM STAT PRN; Protocol PRN Reason: Hypoglycemia Protocol Heparin Sodium (Porcine) (Heparin) 5,000 units SC Q12 [facility] PRN Reason: Protocol Last Admin: 11/11/16 20:24 Dose: 5,000 units Sodium Chloride (Sodium Chloride 0.9%) 500 mls @ 100 mls/hr IV .Q5H [facility] Last Admin: 11/12/16 06:01 Dose: 100 mls/hr Insulin Detemir (Levemir) 12 units SC HS [facility] Last Admin: 11/11/16 21:04 Dose: 12 units Insulin Human Regular (Humulin R) 0 units SC ACHS [facility] PRN Reason: Protocol Last Admin: 11/12/16 07:06 Dose: Not Given Metronidazole (Flagyl) 500 mg PO Q8 [facility] Last Admin: 11/12/16 00:41 Dose: 500 mg Morphine Sulfate (Morphine) 4 mg IVP Q4 PRN PRN Reason: Pain, severe (8-10) Ondansetron HCl (Zofran Inj) 4 mg IVP Q4 PRN PRN Reason: Nausea/Vomiting Oxycodone/Acetaminophen (Percocet 5/325 Mg Tab) 2 tab PO Q4 PRN PRN Reason: Pain, moderate (4-7) Stop: 11/12/16 16:21 Paroxetine HCl (Paxil) 20 mg PO DAILY [facility] Last Admin: 11/11/16 08:40 Dose: 20 mg Phenol/Menthol (Phenaseptic 1.4% Throat [place]) 1 spry MT Q2 PRN PRN Reason: Sore Throat Repaglinide (Prandin) 2 mg PO TIDWM [facility] Last Admin: 11/11/16 08:40 Dose: 2 mg Saccharomyces Boulardii (Florastor) 250 mg PO BID [facility] Last Admin: 11/11/16 17:32 Dose: 250 mg Sevelamer HCl (Renagel) 800 mg PO TID [facility] Last Admin: 11/11/16 17:32 Dose: 800 mg Valsartan (Diovan) 80 mg PO DAILY [facility] Last Admin: 11/11/16 08:40 Dose: 80 mg - Labs Labs: 11/11/16 06:28 - Constitutional Appears: Non-toxic, In Acute Distress - Head Exam Head Exam: ATRAUMATIC - Eye Exam Eye Exam: EOMI, Normal appearance - ENT Exam ENT Exam: Mucous Membranes Moist - Neck Exam Neck Exam: Full ROM - Respiratory Exam Respiratory Exam: Clear to Ausculation Bilateral. absent: Rales, Wheezes - Cardiovascular Exam Cardiovascular Exam: Tachycardia, Diastolic murmur, REGULAR RHYTHM, +S1, +S2. absent: Murmur - GI/Abdominal Exam GI & Abdominal Exam: Soft, Tenderness, Normal Bowel Sounds. absent: Distended, Guarding, Rigid, Rebound Additional comments: mild tenderness of the left abdomen. - Extremities Exam Extremities Exam: Normal Capillary Refill Additional comments: left arm cast: dry, clean , intact. +sensation and movement with capillary refill<20sec of the left fingers. + brachial pulse - Back Exam Back Exam: tenderness - Neurological Exam Neurological Exam: Alert, Awake, CN II-XII Intact (grossly intact cranial nerve) , Oriented x3 - Psychiatric Exam Psychiatric exam: Normal Affect, Normal Mood - Skin Skin Exam: Warm Assessment and Plan - Assessment and Plan (Free Text) Assessment: 75 y/o woman w/ PMHx of HLD, COPD, Anxiety/Depression, CKD, HTN, DM II admitted to TCU for PT/OT treatment s/p L/distal radius ORIF c/o diarrhea and found to have cdiff positive. Plan: Elevate Leukocytosis -ID consult appreciated, Suzanne Singer. -moderate acute increase in wbc 37 today from previous of 10 -lactic acid 0.5 -temperature of 100.1 -most likely from cdiff infection -will start on Vancomycin 500mg q12 and Meropenem q12 IV -f/u cbc, cmp, procalcitonin, blood and urine culture Abdominal pain -most likely from c diff infection -c/w flagyl 11/11 day #2 -f/u ultrasound of abdomen will consider ct abdomen to r/o possible toxic megacolon Left distal radial fracture(stable) - S/P ORIF L/distal radius on 11/07 pod 5 - Morphine 2 mg IV Q4h and 4 mg IV Q6 prn for pain - Percocet 2 tab PO Q4 prn - PT eval/treat DM II uncontrolled - Asymptomatic, non-compliant with insulin therapy - accuchecks/ACHS - Medium dose SSI - Cont Prandin and Glucotrol - HgbA1c 08/31/2016: 13.6 - heart healthy, moderate consistent carbohydrate diet - unit educator consult - F/U Endocrinology Dr Fredi hunter - Patient will need Home health nursing services for DM teaching management after DC from hosp. Asymptomatic Bacteriuria - UCx: Klebsiella Pneu sensitive to Ceftriaxone - denies dysuria - ceftriaxone 1 gm IV daily to complete 7 days( Day 4) CKD (Stage 4) - stable - GFR 20 - Nephro consulted: Spoke with Suzanne Rivera on 11/09/16 Recommens: Renagel, Vit D, Valsartan, Renal US for morphology and Bladder US(Postvoid) HTN - Controlled, stable - continue with home meds: Valsartan 80 mg PO daily - Cardiology(Dr Kyreakakis) evaluated patient. Will continue F/U recs HLD - continue with atorvastatin 40 mg PO daily Anxiety/Depression - stable - continue with home meds: Paroxetine 20 mg PO daily - Monitor DVT ppx - SCDs - heparin 5,000 sc q12
[2016-11-12 08:29] LABS: WHITE BLOOD COUNT 37.6 K/uL (4.8-10.8)
[2016-11-12] MEDS: Saccharomyces Boulardi 250 mg Cap PO SCH ×2 (09:00→17:42)
[2016-11-12] MEDS ORDERED: Potassium Chloride 20 mEq ER Tab PO ONE (09:45)
[2016-11-12 09:54] LABS: EOSINOPHIL 3 % (0-7); NEUTROPHIL 80 % (42-75); TOTAL CELLS COUNTED 100
[2016-11-12 09:56] LABS: LARGE PLATELETS PRESENT
[2016-11-12 11:01] LABS: BASO # 0.2 K/uL (0.0-0.2); BASO % 0.4 % (0.0-2.0); EOS # 0.3 K/uL (0.0-0.7); EOS % 0.9 % (0.0-4.0); LYMPH # 2.4 K/uL (1.0-4.3); LYMPH % 6.5 % (20.0-40.0); MEAN CELL VOLUME 81.6 fl (81.0-99.0); MEAN CORPUSCULAR HEMOGLOBIN 26.2 pg (27.0-31.0); MEAN CORPUSCULAR HGB CONC 32.1 g/dL (33.0-37.0); MEAN PLATELET VOLUME 7.1 fl (7.2-11.7); MONO # 1.9 K/uL (0.0-0.8); MONO % 5.1 % (0.0-10.0); NEUT # 32.6 K/uL (1.8-7.0); NEUT % 87.1 % (50.0-75.0); RED CELL DISTRIBUTION WIDTH 14.4 % (11.5-14.5)
[2016-11-12 11:21] LABS: WHITE BLOOD COUNT 37.4 K/uL (4.8-10.8)
[2016-11-12] MEDS: Sodium Chloride 0.9% 1,000 ML IV SCH ×2 (13:45→17:51)
[2016-11-12 16:53] LABS: RBC URINE 33 /hpf (0-3); URINE BILIRUBIN NEGATIVE (NEGATIVE); URINE BLOOD MODERATE (NEGATIVE); URINE COLOR YELLOW (YELLOW); URINE GLUCOSE (UA) NEG (Normal); URINE KETONE NEGATIVE (NEGATIVE); URINE LEUKOCYTE ESTERASE LARGE Leu/uL (Negative); URINE PROTEIN 30 mg/dL (NEGATIVE); URINE UROBILINOGEN 0.2-1.0 mg/dL (0.2-1.0); WBC CLUMPS MANY /hpf; WBC URINE 1965 /hpf (0-5)
--- NOTE | 2016-11-12 17:42 | CP.PCM.PN ---
Subjective - Date & Time of Evaluation Date of Evaluation: 11/12/16 Time of Evaluation: 17:25 - Subjective Subjective: ID NOTE PATIENT HAS POSITIVE C.DIFF WBC:37C LEFT SHIFT HAS POSITIVE URINE KLEBSIEILLA ON ADMISSION TREATED C CEFTRIAXONE,BUT STILL HAS MALODOROUS URINE ALL CULTURES REPEATED DISCUSSED C FP RESIDENTS FOR PRESIDENT RX C VANCO/MEROPENEM ALONG C PO FLAGYL Objective - Vital Signs/Intake and Output Vital Signs (last 24 hours): Temp Pulse Resp BP Pulse Ox 98.6 F 82 20 159/69 H 100 11/12/16 16:33 11/12/16 16:33 11/12/16 16:33 11/12/16 16:33 11/12/16 16:33 - Medications Medications: Current Medications Atorvastatin Calcium (Lipitor) 40 mg PO HS [facility] Last Admin: 11/11/16 21:04 Dose: 40 mg Cholecalciferol (Vitamin D) 1,000 iu PO DAILY [facility] Last Admin: 11/12/16 09:01 Dose: 1,000 iu Dextrose (Dextrose 50% Inj) 0 ml IV STAT PRN; Protocol PRN Reason: Hyglycemia Protocol Dextrose (Glutose 15) 0 gm PO ONCE PRN; Protocol PRN Reason: Hypoglycemia Protocol Glipizide (Glucotrol) 10 mg PO BIDAC [facility] Last Admin: 11/12/16 07:01 Dose: 10 mg Glucagon (Glucagen Diagnostic Kit) 0 mg IM STAT PRN; Protocol PRN Reason: Hypoglycemia Protocol Heparin Sodium (Porcine) (Heparin) 5,000 units SC Q12 [facility] PRN Reason: Protocol Last Admin: 11/12/16 09:02 Dose: 5,000 units Sodium Chloride (Sodium Chloride 0.9%) 500 mls @ 100 mls/hr IV .Q5H [facility] Last Admin: 11/12/16 14:05 Dose: Not Given Sodium Chloride (Sodium Chloride 0.9%) 1,000 mls @ 250 mls/hr IV .Q4H [facility] Stop: 11/13/16 13:42 Meropenem 500 mg/ Sodium (Chloride) 100 mls @ 100 mls/hr IVPB Q12 [facility] Vancomycin HCl 500 mg/ Sodium (Chloride) 100 mls @ 100 mls/hr IVPB Q12 [facility] Insulin Detemir (Levemir) 12 units SC [facility] Last Admin: 11/11/16 21:04 Dose: 12 units Insulin Human Regular (Humulin R) 0 units SC ACHS [facility] PRN Reason: Protocol Last Admin: 11/12/16 11:40 Dose: Not Given Metronidazole (Flagyl) 500 mg PO Q8 [facility] Last Admin: 11/12/16 09:01 Dose: 500 mg Morphine Sulfate (Morphine) 4 mg IVP Q4 PRN PRN Reason: Pain, severe (8-10) Ondansetron HCl (Zofran Inj) 4 mg IVP Q4 PRN PRN Reason: Nausea/Vomiting Paroxetine HCl (Paxil) 20 mg PO DAILY [facility] Last Admin: 11/12/16 09:01 Dose: 20 mg Phenol/Menthol (Phenaseptic 1.4% Throat [place]) 1 spry MT Q2 PRN PRN Reason: Sore Throat Repaglinide (Prandin) 2 mg PO TIDWM [facility] Last Admin: 11/11/16 08:40 Dose: 2 mg Saccharomyces Boulardii (Florastor) 250 mg PO BID [facility] Last Admin: 11/12/16 09:00 Dose: 250 mg Sevelamer HCl (Renagel) 800 mg PO TID [facility] Last Admin: 11/12/16 14:07 Dose: 800 mg Sodium Bicarbonate (Sodium Bicarbonate Tab) 650 mg PO Q12 [facility] Last Admin: 11/12/16 11:35 Dose: 650 mg Valsartan (Diovan) 80 mg PO DAILY [facility] Last Admin: 11/12/16 09:01 Dose: 80 mg - Labs Labs: 11/12/16 10:45 11/12/16 07:00
[2016-11-12] MEDS: Meropenem 500 MG in Sodium Chloride 0.9% 100 ML IVPB SCH ×2 (20:16→21:03)
--- NOTE | 2016-11-12 20:34 | CP.PCM.PN ---
Subjective - Date & Time of Evaluation Date of Evaluation: 11/12/16 Time of Evaluation: 19:25 - Subjective Subjective: Notified at R.N. because Pt. has a temperature of 102 BP- 157/73 HR-83 RR-20 O2- 93% on RA . Patient seen at bedside. Pt. at this time reports chills but no fever and denies any chest pain, shortness of breath, cough, difficulty breathing, or pain in any limbs. Repeat Temp is 100.8 and RR of 14. 1- Discuss patient progress with with Dr. Arthur and Dr. Bayron Maldonado 2- Tylenol PO 650mg stat 3- Vancomycin and Meropenem (ordered by I.D. Dr. Horowitz) scheduled to be given at 9:00 pm to be given now 4- Consider CXR portable because pt. is post op 5- Repeat U/A & BCx pending Objective - Vital Signs/Intake and Output Vital Signs (last 24 hours): Temp Pulse Resp BP Pulse Ox 102.0 F H 83 20 157/73 H 97 11/12/16 19:30 11/12/16 19:30 11/12/16 19:30 11/12/16 19:30 11/12/16 19:30 - Medications Medications: Current Medications Atorvastatin Calcium (Lipitor) 40 mg PO HS [facility] Last Admin: 11/11/16 21:04 Dose: 40 mg Cholecalciferol (Vitamin D) 1,000 iu PO DAILY [facility] Last Admin: 11/12/16 09:01 Dose: 1,000 iu Dextrose (Dextrose 50% Inj) 0 ml IV STAT PRN; Protocol PRN Reason: Hyglycemia Protocol Dextrose (Glutose 15) 0 gm PO ONCE PRN; Protocol PRN Reason: Hypoglycemia Protocol Glipizide (Glucotrol) 10 mg PO BIDAC [facility] Last Admin: 11/12/16 17:42 Dose: 10 mg Glucagon (Glucagen Diagnostic Kit) 0 mg IM STAT PRN; Protocol PRN Reason: Hypoglycemia Protocol Heparin Sodium (Porcine) (Heparin) 5,000 units SC Q12 [facility] PRN Reason: Protocol Last Admin: 11/12/16 09:02 Dose: 5,000 units Sodium Chloride (Sodium Chloride 0.9%) 500 mls @ 100 mls/hr IV .Q5H [facility] Last Admin: 11/12/16 14:05 Dose: Not Given Meropenem 500 mg/ Sodium (Chloride) 100 mls @ 100 mls/hr IVPB Q12 [facility] Last Admin: 11/12/16 20:16 Dose: 100 mls/hr Vancomycin HCl 500 mg/ Sodium (Chloride) 100 mls @ 100 mls/hr IVPB Q12 [facility] Last Admin: 11/12/16 19:52 Dose: 100 mls/hr Insulin Detemir (Levemir) 12 units SC HS [facility] Last Admin: 11/11/16 21:04 Dose: 12 units Insulin Human Regular (Humulin R) 0 units SC ACHS [facility] PRN Reason: Protocol Last Admin: 11/12/16 16:30 Dose: Not Given Metronidazole (Flagyl) 500 mg PO Q8 [facility] Last Admin: 11/12/16 17:41 Dose: 500 mg Morphine Sulfate (Morphine) 4 mg IVP Q4 PRN PRN Reason: Pain, severe (8-10) Ondansetron HCl (Zofran Inj) 4 mg IVP Q4 PRN PRN Reason: Nausea/Vomiting Paroxetine HCl (Paxil) 20 mg PO DAILY [facility] Last Admin: 11/12/16 09:01 Dose: 20 mg Phenol/Menthol (Phenaseptic 1.4% Throat [place]) 1 spry MT Q2 PRN PRN Reason: Sore Throat Repaglinide (Prandin) 2 mg PO TIDWM [facility] Last Admin: 11/12/16 17:40 Dose: 2 mg Saccharomyces Boulardii (Florastor) 250 mg PO BID [facility] Last Admin: 11/12/16 17:42 Dose: 250 mg Sevelamer HCl (Renagel) 800 mg PO TID [facility] Last Admin: 11/12/16 17:41 Dose: 800 mg Sodium Bicarbonate (Sodium Bicarbonate Tab) 650 mg PO Q12 [facility] Last Admin: 11/12/16 11:35 Dose: 650 mg Valsartan (Diovan) 80 mg PO DAILY [facility] Last Admin: 11/12/16 09:01 Dose: 80 mg - Labs Labs: 11/12/16 10:45 11/12/16 07:00
[2016-11-12] MEDS ORDERED: Meropenem 500 MG in Sodium Chloride 0.9% 100 ML IVPB SCH (21:00)
[2016-11-12] MEDS: Insulin Detemir 100 Units/ml Inj SC SCH (21:51)
[2016-11-12] MEDS ORDERED: Sodium Chloride 0.9% 1,000 ML IV SCH (22:16)
[2016-11-13] MEDS: Sodium Chloride 0.9% 1,000 ML IV SCH ×4 (00:05→21:47)
[2016-11-13] MEDS: Meropenem 500 MG in Sodium Chloride 0.9% 100 ML IVPB SCH ×2 (06:45→17:24)
[2016-11-13] MEDS: Insulin Regular 100 units/ml SC SCH ×3 (06:47→16:27)
--- NOTE | 2016-11-13 07:36 | CP.PCM.PN ---
Subjective - Date & Time of Evaluation Date of Evaluation: 11/12/16 Time of Evaluation: 16:00 - Subjective Subjective: SEEN ON RENAL F/U FEVER AND UTI Objective - Vital Signs/Intake and Output Vital Signs (last 24 hours): Temp Pulse Resp BP Pulse Ox 99.7 F H 79 20 131/65 97 11/12/16 20:45 11/12/16 20:45 11/12/16 20:45 11/12/16 20:45 11/12/16 19:30 - Medications Medications: Current Medications Acetaminophen (Tylenol 325mg Tab) 650 mg PO Q6 PRN PRN Reason: Fever >100.4 F Atorvastatin Calcium (Lipitor) 40 mg PO HS [facility] Last Admin: 11/12/16 21:00 Dose: 40 mg Cholecalciferol (Vitamin D) 1,000 iu PO DAILY [facility] Last Admin: 11/12/16 09:01 Dose: 1,000 iu Dextrose (Dextrose 50% Inj) 0 ml IV STAT PRN; Protocol PRN Reason: Hyglycemia Protocol Dextrose (Glutose 15) 0 gm PO ONCE PRN; Protocol PRN Reason: Hypoglycemia Protocol Glipizide (Glucotrol) 10 mg PO BIDAC [facility] Last Admin: 11/12/16 17:42 Dose: 10 mg Glucagon (Glucagen Diagnostic Kit) 0 mg IM STAT PRN; Protocol PRN Reason: Hypoglycemia Protocol Heparin Sodium (Porcine) (Heparin) 5,000 units SC Q12 [facility] PRN Reason: Protocol Last Admin: 11/12/16 21:09 Dose: 5,000 units Vancomycin HCl 500 mg/ Sodium (Chloride) 100 mls @ 100 mls/hr IVPB Q12 [facility] Last Admin: 11/12/16 21:08 Dose: 100 mls/hr Sodium Chloride (Sodium Chloride 0.9%) 1,000 mls @ 100 mls/hr IV .Q10H [facility] Stop: 11/13/16 22:17 Last Admin: 11/13/16 00:05 Dose: 100 mls/hr Meropenem 500 mg/ Sodium (Chloride) 100 mls @ 100 mls/hr IVPB Q12@0500,1700 [facility] Last Admin: 11/13/16 06:45 Dose: 100 mls/hr Insulin Detemir (Levemir) 12 units SC [facility] Last Admin: 11/12/16 21:51 Dose: Not Given Insulin Human Regular (Humulin R) 0 units SC ACHS [facility] PRN Reason: Protocol Last Admin: 11/13/16 06:47 Dose: Not Given Metronidazole (Flagyl) 500 mg PO Q8 [facility] Last Admin: 11/13/16 00:14 Dose: 500 mg Morphine Sulfate (Morphine) 4 mg IVP Q4 PRN PRN Reason: Pain, severe (8-10) Ondansetron HCl (Zofran Inj) 4 mg IVP Q4 PRN PRN Reason: Nausea/Vomiting Paroxetine HCl (Paxil) 20 mg PO DAILY [facility] Last Admin: 11/12/16 09:01 Dose: 20 mg Phenol/Menthol (Phenaseptic 1.4% Throat [place]) 1 spry MT Q2 PRN PRN Reason: Sore Throat Repaglinide (Prandin) 2 mg PO TIDWM [facility] Last Admin: 11/12/16 17:40 Dose: 2 mg Saccharomyces Boulardii (Florastor) 250 mg PO BID [facility] Last Admin: 11/12/16 17:42 Dose: 250 mg Sevelamer HCl (Renagel) 800 mg PO TID [facility] Last Admin: 11/12/16 17:41 Dose: 800 mg Sodium Bicarbonate (Sodium Bicarbonate Tab) 650 mg PO Q12 [facility] Last Admin: 11/12/16 22:02 Dose: 650 mg Valsartan (Diovan) 80 mg PO DAILY [facility] Last Admin: 11/12/16 09:01 Dose: 80 mg - Labs Labs: 11/12/16 10:45 11/12/16 07:00 Assessment and Plan - Assessment and Plan (Free Text) Assessment: CKD .. STABLE RECURRENT UTI PT HAS H/O ADELAIDA HYDRO ON PREVIOUS SONO AND BLADDER DIVERTICULUM 50 CC I M UNABLE TO ORDER RENAL AND BLADDER SONOGRAM PT IS AT TCU C/O CURRENT MANAGEMENT IVAB PER ID SERVICE
[2016-11-13 07:50] LABS: BASO # 0.1 K/uL (0.0-0.2); BASO % 0.4 % (0.0-2.0); EOS # 0.4 K/uL (0.0-0.7); HEMATOCRIT 34.2 % (34.0-47.0); LYMPH # 1.9 K/uL (1.0-4.3); LYMPH % 5.2 % (20.0-40.0); MEAN CORPUSCULAR HEMOGLOBIN 26.1 pg (27.0-31.0); MEAN CORPUSCULAR HGB CONC 31.9 g/dL (33.0-37.0); MEAN PLATELET VOLUME 7.6 fl (7.2-11.7); MONO # 1.6 K/uL (0.0-0.8); MONO % 4.4 % (0.0-10.0); NEUT # 32.9 K/uL (1.8-7.0); PLATELET COUNT 426 K/uL (130-400); RED CELL DISTRIBUTION WIDTH 14.3 % (11.5-14.5)
[2016-11-13 08:30] LABS: ALB/GLOB RATIO 0.7 (1.0-2.1); BILIRUBIN,TOTAL 0.3 mg/dl (0.2-1.3); CALCIUM 8.6 mg/dL (8.4-10.2); POTASSIUM 3.5 MMOL/L (3.6-5.0); TOTAL PROTEIN 6.2 G/DL (6.3-8.2)
[2016-11-13 09:13] LABS: EOSINOPHIL 1 % (0-7); MYELOCYTE 1 % (0-0); NEUTROPHIL 80 % (42-75); TOTAL CELLS COUNTED 100
[2016-11-13 09:16] LABS: LARGE PLATELETS PRESENT
[2016-11-13] MEDS ORDERED: Potassium Chloride 20 mEq ER Tab PO ONE ×2 (09:40→12:40)
[2016-11-13] MEDS: Saccharomyces Boulardi 250 mg Cap PO SCH ×2 (10:26→17:25)
--- NOTE | 2016-11-13 10:39 | RAD ---
HISTORY: Fever, Post op day #5 COMPARISON: 11/06/2016 FINDINGS: LUNGS: No focal alveolar infiltrate is seen. Mild interstitial change is noted. Minor atelectasis and/or volume loss is seen at the lung bases. PLEURA: No significant pleural effusion identified, no pneumothorax apparent. CARDIOVASCULAR: Normal. OSSEOUS STRUCTURES: No significant abnormalities. VISUALIZED UPPER ABDOMEN: Normal. OTHER FINDINGS: None. IMPRESSION: No focal alveolar infiltrate. Minor volume loss at the lung bases. This may be minimally improved.
--- NOTE | 2016-11-13 11:49 | CP.PCM.PN ---
Subjective - Date & Time of Evaluation Date of Evaluation: 11/13/16 Time of Evaluation: 11:30 - Subjective Subjective: NO CHEST PAIN OR SOB Objective - Vital Signs/Intake and Output Vital Signs (last 24 hours): Temp Pulse Resp BP Pulse Ox 98.1 F 82 20 163/57 H 99 11/13/16 08:41 11/13/16 08:41 11/13/16 08:41 11/13/16 08:41 11/13/16 08:41 - Medications Medications: Current Medications Acetaminophen (Tylenol 325mg Tab) 650 mg PO Q6 PRN PRN Reason: Fever >100.4 F Atorvastatin Calcium (Lipitor) 40 mg PO HS [facility] Last Admin: 11/12/16 21:00 Dose: 40 mg Cholecalciferol (Vitamin D) 1,000 iu PO DAILY [facility] Last Admin: 11/13/16 10:26 Dose: 1,000 iu Dextrose (Dextrose 50% Inj) 0 ml IV STAT PRN; Protocol PRN Reason: Hyglycemia Protocol Dextrose (Glutose 15) 0 gm PO ONCE PRN; Protocol PRN Reason: Hypoglycemia Protocol Glipizide (Glucotrol) 10 mg PO BIDAC [facility] Last Admin: 11/13/16 08:15 Dose: Not Given Glucagon (Glucagen Diagnostic Kit) 0 mg IM STAT PRN; Protocol PRN Reason: Hypoglycemia Protocol Heparin Sodium (Porcine) (Heparin) 5,000 units SC Q12 [facility] PRN Reason: Protocol Last Admin: 11/13/16 10:26 Dose: 5,000 units Vancomycin HCl 500 mg/ Sodium (Chloride) 100 mls @ 100 mls/hr IVPB Q12 [facility] Last Admin: 11/13/16 10:27 Dose: 100 mls/hr Sodium Chloride (Sodium Chloride 0.9%) 1,000 mls @ 100 mls/hr IV .Q10H [facility] Stop: 11/13/16 22:17 Last Admin: 11/13/16 08:32 Dose: 100 mls/hr Meropenem 500 mg/ Sodium (Chloride) 100 mls @ 100 mls/hr IVPB Q12@0500,1700 [facility] Last Admin: 11/13/16 06:45 Dose: 100 mls/hr Insulin Detemir (Levemir) 12 units SC [facility] Last Admin: 11/12/16 21:51 Dose: Not Given Insulin Human Regular (Humulin R) 0 units SC ACHS [facility] PRN Reason: Protocol Last Admin: 11/13/16 11:39 Dose: Not Given Metronidazole (Flagyl) 500 mg PO Q8 [facility] Last Admin: 11/13/16 10:26 Dose: 500 mg Morphine Sulfate (Morphine) 4 mg IVP Q4 PRN PRN Reason: Pain, severe (8-10) Ondansetron HCl (Zofran Inj) 4 mg IVP Q4 PRN PRN Reason: Nausea/Vomiting Paroxetine HCl (Paxil) 20 mg PO DAILY [facility] Last Admin: 11/13/16 10:25 Dose: 20 mg Phenol/Menthol (Phenaseptic 1.4% Throat [place]) 1 spry MT Q2 PRN PRN Reason: Sore Throat Repaglinide (Prandin) 2 mg PO TIDWM [facility] Last Admin: 11/13/16 08:32 Dose: Not Given Saccharomyces Boulardii (Florastor) 250 mg PO BID [facility] Last Admin: 11/13/16 10:26 Dose: 250 mg Sevelamer HCl (Renagel) 800 mg PO TID [facility] Last Admin: 11/13/16 10:25 Dose: 800 mg Sodium Bicarbonate (Sodium Bicarbonate Tab) 650 mg PO Q12 [facility] Last Admin: 11/13/16 10:25 Dose: 650 mg Valsartan (Diovan) 80 mg PO DAILY [facility] Last Admin: 11/13/16 10:26 Dose: 80 mg - Labs Labs: 11/13/16 07:15 11/13/16 07:15 - Respiratory Exam Respiratory Exam: Clear to Ausculation Bilateral - Cardiovascular Exam Cardiovascular Exam: REGULAR RHYTHM, +S1, +S2 - Additional Findings Additional findings: ID NOTE SEEN WITH C DIFFICILE AND UTI WITH KLEBSIELLA Assessment and Plan - Assessment and Plan (Free Text) Assessment: HYPERTENSION HYPERLIPIDEMIA S/P ORIF LEFT RADIUS C DIFFICILE UTI Plan: CONTINUE VALSARTAN, ATORVASTATIN, METRONIDAZOLE AND MEROPENUM
--- NOTE | 2016-11-13 12:21 | PN ---
DATE: 11/13/2016 This is a 76-year-old female with recent uncontrolled type 2 insulin-requiring diabetes, now being fo llowed closely for metabolic management. She underwent a left open reduction and internal fixation p rocedure for a fracture in the left wrist area and is undergoing . Her glycemic levels are f luctuating, but improved, and the latest glucose levels have . Her latest chemistries showed a BUN of 22, sodium 140, potassium 3.5, chloride 115, CO2 was 14, glucose 108, and creatinine is 2.0. So at this time, we will continue the same basal insulin given as Levemir 12 units subQ at bedtime da viviana as ordered. We will also continue the glipizide given as 4 mg b.i.d. before meals as ordered. W e will titrate incrementally as indicated to optimize metabolic control. We will follow and advise a ccordingly. Annelise Rai MD cc: [id number] TT: 11/13/2016 12:21:02 Confirmation # [id number] Dictation # [id number] isha
--- NOTE | 2016-11-13 12:31 | RAD ---
PROCEDURE: Radiographs of the chest and abdomen (obstructive series) HISTORY: abdominal pain r/o dialated intestine COMPARISON: No prior. TECHNIQUE: AP radiograph of the chest, with upright and supine radiographs of the abdomen. FINDINGS: CHEST: Lungs: Clear. Cardiovascular: Normal size heart. No pulmonary vascular congestion. Pleura: No pleural fluid. No pneumothorax. Other findings: None. ABDOMEN AND PELVIS: Bowel: There is a nonspecific bowel gas pattern identified. There may be some minimally irregular bowel loops seen in the right side of the abdomen which may suggest very mild ileus. A few minimal scattered air-fluid levels are noted. Free air: None. Bones: Unremarkable. Other findings: None. IMPRESSION: Nonspecific bowel gas pattern without gross evidence of bowel obstruction. No focal alveolar infiltrate or CHF.
--- NOTE | 2016-11-13 12:32 | CP.PCM.PN ---
Subjective - Date & Time of Evaluation Date of Evaluation: 11/13/16 Time of Evaluation: 08:30 - Subjective Subjective: Pt is being follow up +cdiff with leukocytosis of 37. Currently afebrile. Pt states generalize weakness has improve but continue to have nonbloody loose stool (2 times today). She reports mild left side abdominal pain and remain to have decrease appetite. Pt states have frequenty voiding but denies hematuria and flank pain. Pt reports left arm pain improved. Otherwise denies fever, nausea, vomiting. Denies sob, palpitation, chest pain, and calf tenderness. Objective - Vital Signs/Intake and Output Vital Signs (last 24 hours): Temp Pulse Resp BP Pulse Ox 98.1 F 82 20 163/57 H 99 11/13/16 08:41 11/13/16 08:41 11/13/16 08:41 11/13/16 08:41 11/13/16 08:41 - Medications Medications: Current Medications Acetaminophen (Tylenol 325mg Tab) 650 mg PO Q6 PRN PRN Reason: Fever >100.4 F Atorvastatin Calcium (Lipitor) 40 mg PO HS [facility] Last Admin: 11/12/16 21:00 Dose: 40 mg Cholecalciferol (Vitamin D) 1,000 iu PO DAILY [facility] Last Admin: 11/13/16 10:26 Dose: 1,000 iu Dextrose (Dextrose 50% Inj) 0 ml IV STAT PRN; Protocol PRN Reason: Hyglycemia Protocol Dextrose (Glutose 15) 0 gm PO ONCE PRN; Protocol PRN Reason: Hypoglycemia Protocol Glipizide (Glucotrol) 10 mg PO BIDAC [facility] Last Admin: 11/13/16 08:15 Dose: Not Given Glucagon (Glucagen Diagnostic Kit) 0 mg IM STAT PRN; Protocol PRN Reason: Hypoglycemia Protocol Heparin Sodium (Porcine) (Heparin) 5,000 units SC Q12 [facility] PRN Reason: Protocol Last Admin: 11/13/16 10:26 Dose: 5,000 units Vancomycin HCl 500 mg/ Sodium (Chloride) 100 mls @ 100 mls/hr IVPB Q12 [facility] Last Admin: 11/13/16 10:27 Dose: 100 mls/hr Meropenem 500 mg/ Sodium (Chloride) 100 mls @ 100 mls/hr IVPB Q12@0500,1700 [facility] Last Admin: 11/13/16 06:45 Dose: 100 mls/hr Sodium Chloride (Sodium Chloride 0.9%) 1,000 mls @ 125 mls/hr IV .Q8H [facility] Stop: 11/13/16 22:17 Last Admin: 11/13/16 12:23 Dose: 125 mls/hr Insulin Detemir (Levemir) 12 units SC HS [facility] Last Admin: 11/12/16 21:51 Dose: Not Given Insulin Human Regular (Humulin R) 0 units SC ACHS [facility] PRN Reason: Protocol Last Admin: 11/13/16 11:39 Dose: Not Given Metronidazole (Flagyl) 500 mg PO Q8 [facility] Last Admin: 11/13/16 10:26 Dose: 500 mg Morphine Sulfate (Morphine) 4 mg IVP Q4 PRN PRN Reason: Pain, severe (8-10) Ondansetron HCl (Zofran Inj) 4 mg IVP Q4 PRN PRN Reason: Nausea/Vomiting Paroxetine HCl (Paxil) 20 mg PO DAILY [facility] Last Admin: 11/13/16 10:25 Dose: 20 mg Phenol/Menthol (Phenaseptic 1.4% Throat Warren) 1 spry MT Q2 PRN PRN Reason: Sore Throat Potassium Chloride (K-Dur 20 Meq Er Tab) 40 meq PO ONCE ONE Stop: 11/13/16 12:41 Repaglinide (Prandin) 2 mg PO TIDWM [facility] Last Admin: 11/13/16 12:23 Dose: Not Given Saccharomyces Boulardii (Florastor) 250 mg PO BID [facility] Last Admin: 11/13/16 10:26 Dose: 250 mg Sevelamer HCl (Renagel) 800 mg PO TID [facility] Last Admin: 11/13/16 10:25 Dose: 800 mg Sodium Bicarbonate (Sodium Bicarbonate Tab) 650 mg PO Q12 [facility] Last Admin: 11/13/16 10:25 Dose: 650 mg Valsartan (Diovan) 80 mg PO DAILY [facility] Last Admin: 11/13/16 10:26 Dose: 80 mg - Labs Labs: 11/13/16 07:15 11/13/16 07:15 - Additional Findings Additional findings: - Constitutional Appears: Non-toxic, In Acute Distress, - Head Exam Head Exam: ATRAUMATIC - Eye Exam Eye Exam: EOMI, Normal appearance - ENT Exam ENT Exam: Mucous Membranes Moist - Neck Exam Neck Exam: Full ROM - Respiratory Exam Respiratory Exam: Clear to Ausculation Bilateral. absent: Rales, Wheezes - Cardiovascular Exam Cardiovascular Exam: REGULAR RHYTHM, +S1, +S2. absent: Murmur - GI/Abdominal Exam GI & Abdominal Exam: Soft, mild Tenderness of left abdomen, Normal Bowel Sounds. absent: Distended, Guarding, Rigid, Rebound Additional comments: - Extremities Exam Extremities Exam: Normal Capillary Refill Additional comments: left arm cast: dry, clean , intact. +sensation and movement with capillary refill<20sec of the left fingers. + brachial pulse - Back Exam Back Exam: no cva tenderness - Neurological Exam Neurological Exam: Alert, Awake, CN II-XII Intact (grossly intact cranial nerve) , Oriented x3 - Psychiatric Exam Psychiatric exam: Normal Affect, Normal Mood - Skin Skin Exam: Warm Assessment and Plan - Assessment and Plan (Free Text) Assessment: 75 y/o woman w/ PMHx of HLD, COPD, Anxiety/Depression, CKD, HTN, DM II admitted to TCU for PT/OT treatment s/p L/distal radius ORIF c/o diarrhea and found to have cdiff positive. Plan: Elevate Leukocytosis -ID consult appreciated, Dr. Lugo S. -most likely from cdiff + colitis vs UTI -afeberile, stable leukocytosis: wbc 37 with bandemia of 5 -lactic acid 0.5 -c/w Vancomycin 500mg q12 and Meropenem q12 IV day #1 (11/12) -f/u cbc, cmp, procalcitonin, blood and urine culture Colitis -GI consult appreciated, Dr. Mejía -abdominal pain improve -c diff positive -c/w flagyl 11/11 day #3 -ultrasound of abdomen: gallbladder sludge w/o evidence of acute cholecystiti, severe b/l hydronephrosis -abdomen xray series: non specific gas pattern w/o gross evidence of bowel obstruction, minimal irregular bowel loops seen in the right side suggest mild ilieus - will consider ct abdomen concerning of possible toxic megacolon if leukocytosis or symptoms does not improve UTI Bacteriuria wth hydronephrosis - UCx: Klebsiella Pneu sensitive to Ceftriaxone - ceftriaxone 1 gm IV daily to complete 7 days( Day 4) -repeat u/a: turbid, large leukocyte esterase with [id number] and moderate blood -u/s bladder: severe b/l hydronephrosis, pre void 131.3 post void 95.9. bladder wall appears irregular posteriorly contains evidence of debris. dilated distal right ureter. incidental note gallbladder sludge -f/u repeat urine cx -will consider urologist CKD (Stage 4) - Nephro consult appreciated: Dr Harley, - GFR 20, bun/cr stable -u/s renal: severe b/l hydronephrosis, post void 95.9. bladder wall appears irregular posteriorly contains evidence of debris. dilated distal right ureter. incidental note gallbladder sludge -c/w current management Left distal radial fracture(stable) - S/P ORIF L/distal radius on 11/07 pod 5 - Morphine 2 mg IV Q4h and 4 mg IV Q6 prn for pain - Percocet 2 tab PO Q4 prn - PT eval/treat DM II uncontrolled - Asymptomatic, non-compliant with insulin therapy - accuchecks/ACHS - Medium dose SSI - Cont Prandin and Glucotrol - HgbA1c 08/31/2016: 13.6 - heart healthy, moderate consistent carbohydrate diet - childbirth educator consult - F/U Endocrinology Dr Fredi hunter - Patient will need Home health nursing services for DM teaching management after DC from hosp. HTN -Cardiology consult appreciated, Dr Griffiths - Controlled, stable - continue with home meds: Valsartan 80 mg PO daily HLD - continue with atorvastatin 40 mg PO daily Incidential right adnexa cystic structure -will consider transvaginal u/s for fourther evaluation once wbc improve Anxiety/Depression - stable - continue with home meds: Paroxetine 20 mg PO daily - Monitor DVT ppx - SCDs - heparin 5,000 sc q12
[2016-11-13] MEDS: Insulin Detemir 100 Units/ml Inj SC SCH (21:52)
[2016-11-14] MEDS: Insulin Regular 100 units/ml SC SCH ×5 (03:09→22:01)
[2016-11-14] MEDS: Meropenem 500 MG in Sodium Chloride 0.9% 100 ML IVPB SCH ×2 (05:00→17:12)
[2016-11-14 06:27] LABS: BASO # 0.1 K/uL (0.0-0.2); BASO % 0.2 % (0.0-2.0); EOS % 3.2 % (0.0-4.0); HEMATOCRIT 33.4 % (34.0-47.0); LYMPH # 2.4 K/uL (1.0-4.3); LYMPH % 7.8 % (20.0-40.0); MEAN CELL VOLUME 81.6 fl (81.0-99.0); MEAN CORPUSCULAR HGB CONC 31.9 g/dL (33.0-37.0); MEAN PLATELET VOLUME 7.2 fl (7.2-11.7); MONO # 1.2 K/uL (0.0-0.8); MONO % 3.8 % (0.0-10.0); NEUT # 26.1 K/uL (1.8-7.0); RED CELL DISTRIBUTION WIDTH 14.6 % (11.5-14.5); WHITE BLOOD COUNT 30.7 K/uL (4.8-10.8)
[2016-11-14 06:43] LABS: ALB/GLOB RATIO 0.7 (1.0-2.1); BILIRUBIN,TOTAL 0.2 mg/dl (0.2-1.3); POTASSIUM 3.8 MMOL/L (3.6-5.0); TOTAL PROTEIN 6.2 G/DL (6.3-8.2)
[2016-11-14] MEDS: Saccharomyces Boulardi 250 mg Cap PO SCH ×2 (08:30→17:11)
--- NOTE | 2016-11-14 09:11 | PN ---
DATE: 11/12/2016 Room ____. This is a 76-year-old female with ____ insulin-requiring diabetes, now being followed closely for met abolic management. She developed ____ as noted. ____ leukocytosis ____ . Her latest chemistries in clude a BUN of 26 ____ potassium 3.5, chloride 111, CO2 of 14, and glucose 105 with creatinine ____. Her glucose levels have ranged from 118-170 and ____ mg/dL. So at this time, will continue the same basal insulin given as Levemir 12 units subQ at bedtime daily as ordered. We will continue the glip izide ____ . We will titrate incrementally as indicated to optimize metabolic control. We will foll ow ____. Annelise Rai MD cc: [id number] TT: 11/12/2016 13:04:11 Confirmation # [id number] Dictation # [id number] tsering
--- NOTE | 2016-11-14 10:14 | CP.PCM.PN ---
<Aquiles Kern - Last Filed: 11/14/16 10:16> Subjective - Date & Time of Evaluation Date of Evaluation: 11/14/16 Time of Evaluation: 07:00 - Subjective Subjective: 76 y/o F admitted due to S/P ORIF L/distal radius, C.Diff infection and UCx + for Klebsiella is seen at bedside lying in bed in not acute distress. Patient still having 4-5 diarrhea episodes daily NBNM. Denies vomiting, nausea, CP, palpitations or SOB. Afebrile last 24 hours. She is tolerating PO diet. Continues denying dysuria. She is in good mood and has no complains beside diarrhea. Spoke with Dr Houston(Nephro) who recommended Urology consult after US results. Called Dr Valentine(Urology) and he will come and evaluate patient. Case discussed and evaluated with Dr Woody Objective - Vital Signs/Intake and Output Vital Signs (last 24 hours): Temp Pulse Resp BP Pulse Ox 98.2 F 68 20 141/75 100 11/14/16 08:03 11/14/16 08:03 11/14/16 08:03 11/14/16 08:03 11/14/16 08:03 - Medications Medications: Current Medications Acetaminophen (Tylenol 325mg Tab) 650 mg PO Q6 PRN PRN Reason: Fever >100.4 F Atorvastatin Calcium (Lipitor) 40 mg PO HS [facility] Last Admin: 11/13/16 21:50 Dose: 40 mg Cholecalciferol (Vitamin D) 1,000 iu PO DAILY [facility] Last Admin: 11/14/16 08:30 Dose: 1,000 iu Dextrose (Dextrose 50% Inj) 0 ml IV STAT PRN; Protocol PRN Reason: Hyglycemia Protocol Dextrose (Glutose 15) 0 gm PO ONCE PRN; Protocol PRN Reason: Hypoglycemia Protocol Glipizide (Glucotrol) 10 mg PO BIDAC [facility] Last Admin: 11/14/16 07:34 Dose: 10 mg Glucagon (Glucagen Diagnostic Kit) 0 mg IM STAT PRN; Protocol PRN Reason: Hypoglycemia Protocol Heparin Sodium (Porcine) (Heparin) 5,000 units SC Q12 [place] PRN Reason: Protocol Last Admin: 11/14/16 08:29 Dose: 5,000 units Vancomycin HCl 500 mg/ Sodium (Chloride) 100 mls @ 100 mls/hr IVPB Q12 [facility] Last Admin: 11/14/16 08:31 Dose: 100 mls/hr Meropenem 500 mg/ Sodium (Chloride) 100 mls @ 100 mls/hr IVPB Q12@0500,1700 [facility] Last Admin: 11/14/16 05:00 Dose: 100 mls/hr Insulin Detemir (Levemir) 12 units SC HS [facility] Last Admin: 11/13/16 21:52 Dose: 12 units Insulin Human Regular (Humulin R) 0 units SC ACHS [facility] PRN Reason: Protocol Last Admin: 11/14/16 07:04 Dose: Not Given Metronidazole (Flagyl) 500 mg PO Q8 [facility] Last Admin: 11/14/16 08:30 Dose: 500 mg Morphine Sulfate (Morphine) 4 mg IVP Q4 PRN PRN Reason: Pain, severe (8-10) Ondansetron HCl (Zofran Inj) 4 mg IVP Q4 PRN PRN Reason: Nausea/Vomiting Paroxetine HCl (Paxil) 20 mg PO DAILY [facility] Last Admin: 11/14/16 08:30 Dose: 20 mg Phenol/Menthol (Phenaseptic 1.4% Throat Say[place]) 1 spry MT Q2 PRN PRN Reason: Sore Throat Repaglinide (Prandin) 2 mg PO TIDWM [facility] Last Admin: 11/14/16 08:30 Dose: 2 mg Saccharomyces Boulardii (Florastor) 250 mg PO BID [facility] Last Admin: 11/14/16 08:30 Dose: 250 mg Sevelamer HCl (Renagel) 800 mg PO TID [facility] Last Admin: 11/14/16 08:29 Dose: 800 mg Sodium Bicarbonate (Sodium Bicarbonate Tab) 650 mg PO Q12 [facility] Last Admin: 11/14/16 08:30 Dose: 650 mg Valsartan (Diovan) 80 mg PO DAILY [facility] Last Admin: 11/14/16 08:31 Dose: 80 mg - Labs Labs: 11/14/16 06:00 11/14/16 06:00 - Constitutional Appears: Non-toxic, No Acute Distress - Eye Exam Eye Exam: PERRL - ENT Exam ENT Exam: Mucous Membranes Moist - Neck Exam Neck Exam: Normal Inspection - Respiratory Exam Respiratory Exam: Clear to Ausculation Bilateral. absent: Rales, Wheezes - Cardiovascular Exam Cardiovascular Exam: REGULAR RHYTHM, +S1, +S2. absent: Gallop - GI/Abdominal Exam GI & Abdominal Exam: Soft, Normal Bowel Sounds. absent: Distended, Rebound - Extremities Exam Extremities Exam: Normal Capillary Refill. absent: Calf Tenderness Additional comments: L/arm covered with dressing/cast. No discolorations. No motor impairment present. Normal temperature. - Back Exam Back Exam: absent: CVA tenderness (L), CVA tenderness (R) - Neurological Exam Neurological Exam: Alert, Awake, Oriented x3 - Psychiatric Exam Psychiatric exam: Normal Affect, Normal Mood - Skin Skin Exam: Normal Color, Warm Assessment and Plan - Assessment and Plan (Free Text) Assessment: 75 y/o woman w/ PMHx of HLD, COPD, Anxiety/Depression, CKD, HTN, DM II admitted to TCU for PT/OT treatment s/p L/distal radius ORIF c/o diarrhea and found to have cdiff positive. Plan: Elevate Leukocytosis -ID consult appreciated, Krystin Singer -most likely from cdiff + colitis vs UTI -afebrile last 24h, stable leukocytosis: improved to 30 today -lactic acid 0.5 -c/w Vancomycin 500mg q12 and Meropenem q12 IV day #2 (11/12) -BCx no growth C.Diff Colitis -Cont having diarrhea -GI consult appreciated, Dr. Barriga(as per nurse no new recs given) -abdominal pain improved -c diff positive -c/w flagyl 11/11 day #4 -ultrasound of abdomen: gallbladder sludge w/o evidence of acute cholecystiti, severe b/l hydronephrosis -abdomen xray series: non specific gas pattern w/o gross evidence of bowel obstruction, minimal irregular bowel loops seen in the right side suggest mild ilieus - will consider ct abdomen concerning of possible toxic megacolon if leukocytosis or symptoms does not improve Bacteriuria with B/L hydronephrosis -UCx: Klebsiella Pneu -On Meropenen and Vanco day 2 -repeat u/a: turbid, large leukocyte esterase with [id number] and moderate blood -u/s bladder: severe b/l hydronephrosis, pre void 131.3 post void 95.9. bladder wall appears irregular posteriorly contains evidence of debris. dilated distal right ureter. incidental note gallbladder sludge -f/u repeat urine cx -Urology consult Dr Valentine. Will f/u recs CKD (Stage 4) - Nephro consult appreciated: Dr Houston, - GFR 20, bun/cr stable -u/s renal: severe b/l hydronephrosis, post void 95.9. bladder wall appears irregular posteriorly contains evidence of debris. dilated distal right ureter. -c/w current management Left distal radial fracture(stable) - S/P ORIF L/distal radius on 11/07 pod 5 - Morphine 2 mg IV Q4h and 4 mg IV Q6 prn for pain - Percocet 2 tab PO Q4 prn - PT eval/treat DM II uncontrolled - Asymptomatic, non-compliant with insulin therapy - accuchecks/ACHS - On SSI as per Dr Rai - Cont Prandin and Glucotrol - HgbA1c 08/31/2016: 13.6 - heart healthy, moderate consistent carbohydrate diet - special educator consult - F/U Endocrinology Dr Fredi hunter - Patient will need Home health nursing services for DM teaching management after DC from hosp. HTN -Cardiology consult appreciated, Dr Griffiths - Controlled, stable - continue with home meds: Valsartan 80 mg PO daily HLD - continue with atorvastatin 40 mg PO daily Incidential right adnexa cystic structure -will consider transvaginal u/s for further evaluation once wbc improve Anxiety/Depression - stable - continue with home meds: Paroxetine 20 mg PO daily - Monitor DVT ppx - SCDs - heparin 5,000 sc q12 <Min Woody - Last Filed: 11/15/16 06:35> Objective - Vital Signs/Intake and Output Vital Signs (last 24 hours): Temp Pulse Resp BP Pulse Ox 97.3 F L 65 20 106/54 L 99 11/14/16 20:20 11/14/16 20:20 11/14/16 20:20 11/14/16 20:20 11/14/16 20:20 - Medications Medications: Current Medications Acetaminophen (Tylenol 325mg Tab) 650 mg PO Q6 PRN PRN Reason: Fever >100.4 F Atorvastatin Calcium (Lipitor) 40 mg PO HS [facility] Last Admin: 11/14/16 22:04 Dose: 40 mg Cholecalciferol (Vitamin D) 1,000 iu PO DAILY [facility] Last Admin: 11/14/16 08:30 Dose: 1,000 iu Dextrose (Dextrose 50% Inj) 0 ml IV STAT PRN; Protocol PRN Reason: Hyglycemia Protocol Dextrose (Glutose 15) 0 gm PO ONCE PRN; Protocol PRN Reason: Hypoglycemia Protocol Glipizide (Glucotrol) 10 mg PO BIDAC [facility] Last Admin: 11/14/16 17:11 Dose: 10 mg Glucagon (Glucagen Diagnostic Kit) 0 mg IM STAT PRN; Protocol PRN Reason: Hypoglycemia Protocol Heparin Sodium (Porcine) (Heparin) 5,000 units SC Q12 [facility] PRN Reason: Protocol Last Admin: 11/14/16 22:00 Dose: 5,000 units Meropenem 500 mg/ Sodium (Chloride) 100 mls @ 100 mls/hr IVPB Q12@0500,1700 [facility] Last Admin: 11/15/16 05:00 Dose: 100 mls/hr Fluconazole (Diflucan Iv 100 Mg/50 Ml Ns) 50 mls @ 50 mls/hr IVPB DAILY@1700 [facility] Insulin Detemir (Levemir) 12 units SC HS [facility] Last Admin: 11/14/16 22:01 Dose: 12 units Insulin Human Regular (Humulin R) 0 units SC ACHS [facility] PRN Reason: Protocol Last Admin: 11/15/16 06:33 Dose: Not Given Metronidazole (Flagyl) 500 mg PO Q8 [facility] Last Admin: 11/15/16 01:25 Dose: 500 mg Morphine Sulfate (Morphine) 4 mg IVP Q4 PRN PRN Reason: Pain, severe (8-10) Ondansetron HCl (Zofran Inj) 4 mg IVP Q4 PRN PRN Reason: Nausea/Vomiting Oxycodone/Acetaminophen (Percocet 5/325 Mg Tab) 2 tab PO Q6 PRN PRN Reason: Pain, moderate (4-7) Stop: 11/17/16 14:20 Last Admin: 11/14/16 14:37 Dose: 2 tab Paroxetine HCl (Paxil) 20 mg PO DAILY [facility] Last Admin: 11/14/16 08:30 Dose: 20 mg Phenol/Menthol (Phenaseptic 1.4% Throat Sayre) 1 spry MT Q2 PRN PRN Reason: Sore Throat Repaglinide (Prandin) 2 mg PO TIDWM [facility] Last Admin: 11/14/16 17:11 Dose: 2 mg Saccharomyces Boulardii (Florastor) 250 mg PO BID [facility] Last Admin: 11/14/16 17:11 Dose: 250 mg Sevelamer HCl (Renagel) 800 mg PO TID [facility] Last Admin: 11/14/16 17:11 Dose: 800 mg Sodium Bicarbonate (Sodium Bicarbonate Tab) 650 mg PO Q12 [facility] Last Admin: 11/14/16 22:04 Dose: 650 mg Valsartan (Diovan) 80 mg PO DAILY [facility] Last Admin: 11/14/16 08:31 Dose: 80 mg Vancomycin HCl (Vancocin (Oral/Rectal Use)) 125 mg PO QID [facility] Last Admin: 11/14/16 22:05 Dose: 125 mg - Labs Labs: 11/14/16 06:00 11/14/16 06:00 Assessment and Plan (1) Chronic kidney disease (CKD), stage IV (severe) Status: Chronic (2) Asymptomatic bacteriuria Status: Acute (3) Distal radial fracture Status: Acute (4) Uncontrolled diabetes mellitus Status: Acute (5) Depression Status: Chronic (6) Hypertension Status: Chronic (7) Hyperlipidemia Status: Chronic (8) Hydronephrosis Status: Chronic Attending/Attestation - Attestation I have personally seen and examined this patient.: Yes I have fully participated in the care of the patient.: Yes I have reviewed all pertinent clinical information, including history, physical exam and plan: Yes
--- NOTE | 2016-11-14 12:38 | CP.PCM.PN ---
Subjective - Date & Time of Evaluation Date of Evaluation: 11/14/16 Time of Evaluation: 09:00 - Subjective Subjective: NO CHEST PAIN OR SOB DIARRHEA CONTINUES Objective - Vital Signs/Intake and Output Vital Signs (last 24 hours): Temp Pulse Resp BP Pulse Ox 98.2 F 68 20 141/75 100 11/14/16 08:03 11/14/16 08:03 11/14/16 08:03 11/14/16 08:03 11/14/16 08:03 - Medications Medications: Current Medications Acetaminophen (Tylenol 325mg Tab) 650 mg PO Q6 PRN PRN Reason: Fever >100.4 F Atorvastatin Calcium (Lipitor) 40 mg PO HS [facility] Last Admin: 11/13/16 21:50 Dose: 40 mg Cholecalciferol (Vitamin D) 1,000 iu PO DAILY [facility] Last Admin: 11/14/16 08:30 Dose: 1,000 iu Dextrose (Dextrose 50% Inj) 0 ml IV STAT PRN; Protocol PRN Reason: Hyglycemia Protocol Dextrose (Glutose 15) 0 gm PO ONCE PRN; Protocol PRN Reason: Hypoglycemia Protocol Glipizide (Glucotrol) 10 mg PO BIDAC [facility] Last Admin: 11/14/16 07:34 Dose: 10 mg Glucagon (Glucagen Diagnostic Kit) 0 mg IM STAT PRN; Protocol PRN Reason: Hypoglycemia Protocol Heparin Sodium (Porcine) (Heparin) 5,000 units SC Q12 [facility] PRN Reason: Protocol Last Admin: 11/14/16 08:29 Dose: 5,000 units Vancomycin HCl 500 mg/ Sodium (Chloride) 100 mls @ 100 mls/hr IVPB Q12 [facility] Last Admin: 11/14/16 08:31 Dose: 100 mls/hr Meropenem 500 mg/ Sodium (Chloride) 100 mls @ 100 mls/hr IVPB Q12@0500,1700 [facility] Last Admin: 11/14/16 05:00 Dose: 100 mls/hr Insulin Detemir (Levemir) 12 units SC HS [facility] Last Admin: 11/13/16 21:52 Dose: 12 units Insulin Human Regular (Humulin R) 0 units SC ACHS [facility] PRN Reason: Protocol Last Admin: 11/14/16 11:13 Dose: Not Given Metronidazole (Flagyl) 500 mg PO Q8 [facility] Last Admin: 11/14/16 08:30 Dose: 500 mg Morphine Sulfate (Morphine) 4 mg IVP Q4 PRN PRN Reason: Pain, severe (8-10) Ondansetron HCl (Zofran Inj) 4 mg IVP Q4 PRN PRN Reason: Nausea/Vomiting Paroxetine HCl (Paxil) 20 mg PO DAILY [facility] Last Admin: 11/14/16 08:30 Dose: 20 mg Phenol/Menthol (Phenaseptic 1.4% Throat [place]) 1 spry MT Q2 PRN PRN Reason: Sore Throat Repaglinide (Prandin) 2 mg PO TIDWM [facility] Last Admin: 11/14/16 12:33 Dose: 2 mg Saccharomyces Boulardii (Florastor) 250 mg PO BID [facility] Last Admin: 11/14/16 08:30 Dose: 250 mg Sevelamer HCl (Renagel) 800 mg PO TID [facility] Last Admin: 11/14/16 12:33 Dose: 800 mg Sodium Bicarbonate (Sodium Bicarbonate Tab) 650 mg PO Q12 [facility] Last Admin: 11/14/16 08:30 Dose: 650 mg Valsartan (Diovan) 80 mg PO DAILY [facility] Last Admin: 11/14/16 08:31 Dose: 80 mg - Labs Labs: 11/14/16 06:00 11/14/16 06:00 - Respiratory Exam Respiratory Exam: Clear to Ausculation Bilateral - Cardiovascular Exam Cardiovascular Exam: REGULAR RHYTHM, +S1, +S2 Assessment and Plan - Assessment and Plan (Free Text) Assessment: HYPERTENSION HYPERLIPIDEMIA TYPE 2 DM C DIFFICILE UTI Plan: CONTINUE VALSARTAN, ATORVASTATIN, METRONIDAZOLE, VANCOMYCIN AND MEROPENEM
--- NOTE | 2016-11-14 12:48 | CP.PCM.PN ---
Subjective - Date & Time of Evaluation Date of Evaluation: 11/14/16 Time of Evaluation: 09:00 - Subjective Subjective: NO CHEST PAIN OR SOB STILL WITH DIARRHEA Objective - Vital Signs/Intake and Output Vital Signs (last 24 hours): Temp Pulse Resp BP Pulse Ox 98.2 F 68 20 141/75 100 11/14/16 08:03 11/14/16 08:03 11/14/16 08:03 11/14/16 08:03 11/14/16 08:03 - Medications Medications: Current Medications Acetaminophen (Tylenol 325mg Tab) 650 mg PO Q6 PRN PRN Reason: Fever >100.4 F Atorvastatin Calcium (Lipitor) 40 mg PO HS [facility] Last Admin: 11/13/16 21:50 Dose: 40 mg Cholecalciferol (Vitamin D) 1,000 iu PO DAILY [facility] Last Admin: 11/14/16 08:30 Dose: 1,000 iu Dextrose (Dextrose 50% Inj) 0 ml IV STAT PRN; Protocol PRN Reason: Hyglycemia Protocol Dextrose (Glutose 15) 0 gm PO ONCE PRN; Protocol PRN Reason: Hypoglycemia Protocol Glipizide (Glucotrol) 10 mg PO BIDAC [facility] Last Admin: 11/14/16 07:34 Dose: 10 mg Glucagon (Glucagen Diagnostic Kit) 0 mg IM STAT PRN; Protocol PRN Reason: Hypoglycemia Protocol Heparin Sodium (Porcine) (Heparin) 5,000 units SC Q12 [facility] PRN Reason: Protocol Last Admin: 11/14/16 08:29 Dose: 5,000 units Vancomycin HCl 500 mg/ Sodium (Chloride) 100 mls @ 100 mls/hr IVPB Q12 [facility] Last Admin: 11/14/16 08:31 Dose: 100 mls/hr Meropenem 500 mg/ Sodium (Chloride) 100 mls @ 100 mls/hr IVPB Q12@0500,1700 [facility] Last Admin: 11/14/16 05:00 Dose: 100 mls/hr Insulin Detemir (Levemir) 12 units SC HS [facility] Last Admin: 11/13/16 21:52 Dose: 12 units Insulin Human Regular (Humulin R) 0 units SC ACHS [facility] PRN Reason: Protocol Last Admin: 11/14/16 11:13 Dose: Not Given Metronidazole (Flagyl) 500 mg PO Q8 [facility] Last Admin: 11/14/16 08:30 Dose: 500 mg Morphine Sulfate (Morphine) 4 mg IVP Q4 PRN PRN Reason: Pain, severe (8-10) Ondansetron HCl (Zofran Inj) 4 mg IVP Q4 PRN PRN Reason: Nausea/Vomiting Paroxetine HCl (Paxil) 20 mg PO DAILY [facility] Last Admin: 11/14/16 08:30 Dose: 20 mg Phenol/Menthol (Phenaseptic 1.4% Throat [place]) 1 spry MT Q2 PRN PRN Reason: Sore Throat Repaglinide (Prandin) 2 mg PO TIDWM [facility] Last Admin: 11/14/16 12:33 Dose: 2 mg Saccharomyces Boulardii (Florastor) 250 mg PO BID [facility] Last Admin: 11/14/16 08:30 Dose: 250 mg Sevelamer HCl (Renagel) 800 mg PO TID [facility] Last Admin: 11/14/16 12:33 Dose: 800 mg Sodium Bicarbonate (Sodium Bicarbonate Tab) 650 mg PO Q12 [facility] Last Admin: 11/14/16 08:30 Dose: 650 mg Valsartan (Diovan) 80 mg PO DAILY [facility] Last Admin: 11/14/16 08:31 Dose: 80 mg - Labs Labs: 11/14/16 06:00 11/14/16 06:00 - Respiratory Exam Respiratory Exam: Clear to Ausculation Bilateral - Cardiovascular Exam Cardiovascular Exam: REGULAR RHYTHM, +S1, +S2 Assessment and Plan - Assessment and Plan (Free Text) Assessment: HYPERTENSION HYPERLIPIDEMIA C DIFFICILE UTI Plan: CONTINUE VALSARTAN, ATORVASTATIN, VANCOMYCIN, METRONIDAZOLE AND MEROPENEM
[2016-11-14] MEDS ORDERED: Oxycodone/Acetaminophen 5/325 mg Tab PO PRN (14:19)
[2016-11-14] MEDS ORDERED: Sodium Chloride 0.9% 1,000 ML IV SCH (14:45)
[2016-11-14] MEDS: Vancomycin 500 mg (Oral/Rectal USE) PO SCH ×2 (17:12→22:05)
--- NOTE | 2016-11-14 18:17 | CP.PCM.PN ---
Subjective - Date & Time of Evaluation Date of Evaluation: 11/14/16 Time of Evaluation: 18:11 - Subjective Subjective: ID NOTE STILL SIGNIFICANt DIARRHEA WBC IMPROVED BUT STILL 30 HAVE CHANGED VANCOMYCIN TO PO FOR C.DIFF COVERAGE ALONG C FLAGYL ADD DIFLUCAN IV Objective - Vital Signs/Intake and Output Vital Signs (last 24 hours): Temp Pulse Resp BP Pulse Ox 97.9 F 69 18 126/69 98 11/14/16 15:53 11/14/16 15:53 11/14/16 15:53 11/14/16 15:53 11/14/16 15:53 - Medications Medications: Current Medications Acetaminophen (Tylenol 325mg Tab) 650 mg PO Q6 PRN PRN Reason: Fever >100.4 F Atorvastatin Calcium (Lipitor) 40 mg PO HS [facility] Last Admin: 11/13/16 21:50 Dose: 40 mg Cholecalciferol (Vitamin D) 1,000 iu PO DAILY [facility] Last Admin: 11/14/16 08:30 Dose: 1,000 iu Dextrose (Dextrose 50% Inj) 0 ml IV STAT PRN; Protocol PRN Reason: Hyglycemia Protocol Dextrose (Glutose 15) 0 gm PO ONCE PRN; Protocol PRN Reason: Hypoglycemia Protocol Glipizide (Glucotrol) 10 mg PO BIDAC [facility] Last Admin: 11/14/16 17:11 Dose: 10 mg Glucagon (Glucagen Diagnostic Kit) 0 mg IM STAT PRN; Protocol PRN Reason: Hypoglycemia Protocol Heparin Sodium (Porcine) (Heparin) 5,000 units SC Q12 [facility] PRN Reason: Protocol Last Admin: 11/14/16 08:29 Dose: 5,000 units Meropenem 500 mg/ Sodium (Chloride) 100 mls @ 100 mls/hr IVPB Q12@0500,1700 [facility] Last Admin: 11/14/16 17:12 Dose: 100 mls/hr Sodium Chloride (Sodium Chloride 0.9%) 1,000 mls @ 125 mls/hr IV .Q8H [facility] Stop: 11/14/16 22:44 Last Admin: 11/14/16 15:27 Dose: 125 mls/hr Insulin Detemir (Levemir) 12 units SC HS [facility] Last Admin: 11/13/16 21:52 Dose: 12 units Insulin Human Regular (Humulin R) 0 units SC ACHS [facility] PRN Reason: Protocol Last Admin: 11/14/16 17:09 Dose: Not Given Metronidazole (Flagyl) 500 mg PO Q8 [facility] Last Admin: 11/14/16 17:11 Dose: 500 mg Morphine Sulfate (Morphine) 4 mg IVP Q4 PRN PRN Reason: Pain, severe (8-10) Ondansetron HCl (Zofran Inj) 4 mg IVP Q4 PRN PRN Reason: Nausea/Vomiting Oxycodone/Acetaminophen (Percocet 5/325 Mg Tab) 2 tab PO Q6 PRN PRN Reason: Pain, moderate (4-7) Stop: 11/17/16 14:20 Last Admin: 11/14/16 14:37 Dose: 2 tab Paroxetine HCl (Paxil) 20 mg PO DAILY [facility] Last Admin: 11/14/16 08:30 Dose: 20 mg Phenol/Menthol (Phenaseptic 1.4% Throat [place]) 1 spry MT Q2 PRN PRN Reason: Sore Throat Repaglinide (Prandin) 2 mg PO TIDWM [facility] Last Admin: 11/14/16 17:11 Dose: 2 mg Saccharomyces Boulardii (Florastor) 250 mg PO BID [facility] Last Admin: 11/14/16 17:11 Dose: 250 mg Sevelamer HCl (Renagel) 800 mg PO TID [facility] Last Admin: 11/14/16 17:11 Dose: 800 mg Sodium Bicarbonate (Sodium Bicarbonate Tab) 650 mg PO Q12 [facility] Last Admin: 11/14/16 08:30 Dose: 650 mg Valsartan (Diovan) 80 mg PO DAILY [facility] Last Admin: 11/14/16 08:31 Dose: 80 mg Vancomycin HCl (Vancocin (Oral/Rectal Use)) 125 mg PO QID [facility] Last Admin: 11/14/16 17:12 Dose: 125 mg - Labs Labs: 11/14/16 06:00 11/14/16 06:00
--- NOTE | 2016-11-14 19:31 | CP.PCM.PN ---
Subjective - Date & Time of Evaluation Date of Evaluation: 11/14/16 Time of Evaluation: 14:00 - Subjective Subjective: SEEN ON RENAL F/U DIARRHIA .. SEVERE LOWER URINARY SYMPTOMS RENAL FUNCTION STABLE RENAL SONO .. SEVERE ADELAIDA HYDRONEPHROSIS BLADDER SONO .. LARGE POST VOID RESIDUAT 95 ML .. BLADDER DIVERTICULUM (59 ML ) ON HER LAST SONOGRAM ( [address] GUIDO FOR CONSULT C/O CURRENT CARE Objective - Vital Signs/Intake and Output Vital Signs (last 24 hours): Temp Pulse Resp BP Pulse Ox 97.9 F 69 18 126/69 98 11/14/16 15:53 11/14/16 15:53 11/14/16 15:53 11/14/16 15:53 11/14/16 15:53 - Medications Medications: Current Medications Acetaminophen (Tylenol 325mg Tab) 650 mg PO Q6 PRN PRN Reason: Fever >100.4 F Atorvastatin Calcium (Lipitor) 40 mg PO HS [facility] Last Admin: 11/13/16 21:50 Dose: 40 mg Cholecalciferol (Vitamin D) 1,000 iu PO DAILY [facility] Last Admin: 11/14/16 08:30 Dose: 1,000 iu Dextrose (Dextrose 50% Inj) 0 ml IV STAT PRN; Protocol PRN Reason: Hyglycemia Protocol Dextrose (Glutose 15) 0 gm PO ONCE PRN; Protocol PRN Reason: Hypoglycemia Protocol Glipizide (Glucotrol) 10 mg PO BIDAC [facility] Last Admin: 11/14/16 17:11 Dose: 10 mg Glucagon (Glucagen Diagnostic Kit) 0 mg IM STAT PRN; Protocol PRN Reason: Hypoglycemia Protocol Heparin Sodium (Porcine) (Heparin) 5,000 units SC Q12 [facility] PRN Reason: Protocol Last Admin: 11/14/16 08:29 Dose: 5,000 units Meropenem 500 mg/ Sodium (Chloride) 100 mls @ 100 mls/hr IVPB Q12@0500,1700 [facility] Last Admin: 11/14/16 17:12 Dose: 100 mls/hr Sodium Chloride (Sodium Chloride 0.9%) 1,000 mls @ 125 mls/hr IV .Q8H [facility] Stop: 11/14/16 22:44 Last Admin: 11/14/16 15:27 Dose: 125 mls/hr Fluconazole (Diflucan Iv 100 Mg/50 Ml Ns) 50 mls @ 50 mls/hr IVPB DAILY@1700 [facility] Insulin Detemir (Levemir) 12 units SC HS [facility] Last Admin: 11/13/16 21:52 Dose: 12 units Insulin Human Regular (Humulin R) 0 units SC ACHS [facility] PRN Reason: Protocol Last Admin: 11/14/16 17:09 Dose: Not Given Metronidazole (Flagyl) 500 mg PO Q8 [facility] Last Admin: 11/14/16 17:11 Dose: 500 mg Morphine Sulfate (Morphine) 4 mg IVP Q4 PRN PRN Reason: Pain, severe (8-10) Ondansetron HCl (Zofran Inj) 4 mg IVP Q4 PRN PRN Reason: Nausea/Vomiting Oxycodone/Acetaminophen (Percocet 5/325 Mg Tab) 2 tab PO Q6 PRN PRN Reason: Pain, moderate (4-7) Stop: 11/17/16 14:20 Last Admin: 11/14/16 14:37 Dose: 2 tab Paroxetine HCl (Paxil) 20 mg PO DAILY [facility] Last Admin: 11/14/16 08:30 Dose: 20 mg Phenol/Menthol (Phenaseptic 1.4% Throat [place]) 1 spry MT Q2 PRN PRN Reason: Sore Throat Repaglinide (Prandin) 2 mg PO TIDWM [facility] Last Admin: 11/14/16 17:11 Dose: 2 mg Saccharomyces Boulardii (Florastor) 250 mg PO BID [facility] Last Admin: 11/14/16 17:11 Dose: 250 mg Sevelamer HCl (Renagel) 800 mg PO TID [facility] Last Admin: 11/14/16 17:11 Dose: 800 mg Sodium Bicarbonate (Sodium Bicarbonate Tab) 650 mg PO Q12 [facility] Last Admin: 11/14/16 08:30 Dose: 650 mg Valsartan (Diovan) 80 mg PO DAILY [facility] Last Admin: 11/14/16 08:31 Dose: 80 mg Vancomycin HCl (Vancocin (Oral/Rectal Use)) 125 mg PO QID [facility] Last Admin: 11/14/16 17:12 Dose: 125 mg - Labs Labs: 11/14/16 06:00 11/14/16 06:00 Assessment and Plan - Assessment and Plan (Free Text) 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
[2016-11-14 20:25] VITALS: RESP 20
--- NOTE | 2016-11-14 21:41 | CP.PCM.PN ---
Subjective - Date & Time of Evaluation Date of Evaluation: 11/14/16 Time of Evaluation: 21:25 - Subjective Subjective: urology called to see patient for eval. I asked her if she had any specific urologic complaints. She complained of urinary urgency with urge incontinence. She feels she can ambulate but the urge is overpowering. She denies dysuria, difficulty voiding. She has a long history of renal failure treated by nephrology. I reviewed the clinical info. there are years worth of ct documentation of bilateral hydronephrosis, a recent urine c/s shows yeast colonies. she also has culture positive c diff.She relates a urologic history of bladder suspension surgery many years ago. At this time she has no new urologic findings with the exception of yeast uti. I would recommend diflucan usual regimen. I think this will help her initial problem with urinary urgency. Objective - Vital Signs/Intake and Output Vital Signs (last 24 hours): Temp Pulse Resp BP Pulse Ox 97.3 F L 65 20 106/54 L 99 11/14/16 20:20 11/14/16 20:20 11/14/16 20:20 11/14/16 20:20 11/14/16 20:20 - Medications Medications: Current Medications Acetaminophen (Tylenol 325mg Tab) 650 mg PO Q6 PRN PRN Reason: Fever >100.4 F Atorvastatin Calcium (Lipitor) 40 mg PO HS [facility] Last Admin: 11/13/16 21:50 Dose: 40 mg Cholecalciferol (Vitamin D) 1,000 iu PO DAILY [facility] Last Admin: 11/14/16 08:30 Dose: 1,000 iu Dextrose (Dextrose 50% Inj) 0 ml IV STAT PRN; Protocol PRN Reason: Hyglycemia Protocol Dextrose (Glutose 15) 0 gm PO ONCE PRN; Protocol PRN Reason: Hypoglycemia Protocol Glipizide (Glucotrol) 10 mg PO BIDAC [facility] Last Admin: 11/14/16 17:11 Dose: 10 mg Glucagon (Glucagen Diagnostic Kit) 0 mg IM STAT PRN; Protocol PRN Reason: Hypoglycemia Protocol Heparin Sodium (Porcine) (Heparin) 5,000 units SC Q12 [facility] PRN Reason: Protocol Last Admin: 11/14/16 08:29 Dose: 5,000 units Meropenem 500 mg/ Sodium (Chloride) 100 mls @ 100 mls/hr IVPB Q12@0500,1700 [facility] Last Admin: 11/14/16 17:12 Dose: 100 mls/hr Sodium Chloride (Sodium Chloride 0.9%) 1,000 mls @ 125 mls/hr IV .Q8H [facility] Stop: 11/14/16 22:44 Last Admin: 11/14/16 15:27 Dose: 125 mls/hr Fluconazole (Diflucan Iv 100 Mg/50 Ml Ns) 50 mls @ 50 mls/hr IVPB DAILY@1700 [facility] Insulin Detemir (Levemir) 12 units SC HS [facility] Last Admin: 11/13/16 21:52 Dose: 12 units Insulin Human Regular (Humulin R) 0 units SC ACHS [facility] PRN Reason: Protocol Last Admin: 11/14/16 17:09 Dose: Not Given Metronidazole (Flagyl) 500 mg PO Q8 [facility] Last Admin: 11/14/16 17:11 Dose: 500 mg Morphine Sulfate (Morphine) 4 mg IVP Q4 PRN PRN Reason: Pain, severe (8-10) Ondansetron HCl (Zofran Inj) 4 mg IVP Q4 PRN PRN Reason: Nausea/Vomiting Oxycodone/Acetaminophen (Percocet 5/325 Mg Tab) 2 tab PO Q6 PRN PRN Reason: Pain, moderate (4-7) Stop: 11/17/16 14:20 Last Admin: 11/14/16 14:37 Dose: 2 tab Paroxetine HCl (Paxil) 20 mg PO DAILY [facility] Last Admin: 11/14/16 08:30 Dose: 20 mg Phenol/Menthol (Phenaseptic 1.4% Throat [place]) 1 spry MT Q2 PRN PRN Reason: Sore Throat Repaglinide (Prandin) 2 mg PO TIDWM [facility] Last Admin: 11/14/16 17:11 Dose: 2 mg Saccharomyces Boulardii (Florastor) 250 mg PO BID [facility] Last Admin: 11/14/16 17:11 Dose: 250 mg Sevelamer HCl (Renagel) 800 mg PO TID [facility] Last Admin: 11/14/16 17:11 Dose: 800 mg Sodium Bicarbonate (Sodium Bicarbonate Tab) 650 mg PO Q12 [facility] Last Admin: 11/14/16 08:30 Dose: 650 mg Valsartan (Diovan) 80 mg PO DAILY [facility] Last Admin: 11/14/16 08:31 Dose: 80 mg Vancomycin HCl (Vancocin (Oral/Rectal Use)) 125 mg PO QID [facility] Last Admin: 11/14/16 17:12 Dose: 125 mg - Labs Labs: 11/14/16 06:00 11/14/16 06:00
[2016-11-14] MEDS: Insulin Detemir 100 Units/ml Inj SC SCH (22:01)
[2016-11-15] MEDS: Meropenem 500 MG in Sodium Chloride 0.9% 100 ML IVPB SCH ×2 (05:00→16:42)
[2016-11-15] MEDS: Insulin Regular 100 units/ml SC SCH ×4 (06:33→21:20)
[2016-11-15 06:41] LABS: BASO # 0.1 K/uL (0.0-0.2); BASO % 0.4 % (0.0-2.0); EOS # 0.7 K/uL (0.0-0.7); EOS % 4.1 % (0.0-4.0); LYMPH # 2.4 K/uL (1.0-4.3); LYMPH % 14.1 % (20.0-40.0); MEAN CELL VOLUME 84.7 fl (81.0-99.0); MEAN CORPUSCULAR HEMOGLOBIN 25.6 pg (27.0-31.0); MEAN CORPUSCULAR HGB CONC 30.2 g/dL (33.0-37.0); MEAN PLATELET VOLUME 7.2 fl (7.2-11.7); MONO # 0.9 K/uL (0.0-0.8); MONO % 5.4 % (0.0-10.0); NEUT # 13.2 K/uL (1.8-7.0); RED CELL DISTRIBUTION WIDTH 15.3 % (11.5-14.5); WHITE BLOOD COUNT 17.3 K/uL (4.8-10.8)
[2016-11-15 06:43] LABS: CALCIUM 8.4 mg/dL (8.4-10.2); POTASSIUM 3.9 MMOL/L (3.6-5.0)
--- NOTE | 2016-11-15 06:59 | CP.PCM.PN ---
Subjective - Date & Time of Evaluation Date of Evaluation: 11/15/16 Time of Evaluation: 06:40 - Subjective Subjective: feels better with bowels less pain less frequency of BMs yesterday pt did speak to DR Valentine yesterday Objective - Vital Signs/Intake and Output Vital Signs (last 24 hours): Temp Pulse Resp BP Pulse Ox 97.3 F L 65 20 106/54 L 99 11/14/16 20:20 11/14/16 20:20 11/14/16 20:20 11/14/16 20:20 11/14/16 20:20 - Medications Medications: Current Medications Acetaminophen (Tylenol 325mg Tab) 650 mg PO Q6 PRN PRN Reason: Fever >100.4 F Atorvastatin Calcium (Lipitor) 40 mg PO HS [facility] Last Admin: 11/14/16 22:04 Dose: 40 mg Cholecalciferol (Vitamin D) 1,000 iu PO DAILY [facility] Last Admin: 11/14/16 08:30 Dose: 1,000 iu Dextrose (Dextrose 50% Inj) 0 ml IV STAT PRN; Protocol PRN Reason: Hyglycemia Protocol Dextrose (Glutose 15) 0 gm PO ONCE PRN; Protocol PRN Reason: Hypoglycemia Protocol Glipizide (Glucotrol) 10 mg PO BIDAC [facility] Last Admin: 11/15/16 06:53 Dose: 10 mg Glucagon (Glucagen Diagnostic Kit) 0 mg IM STAT PRN; Protocol PRN Reason: Hypoglycemia Protocol Heparin Sodium (Porcine) (Heparin) 5,000 units SC Q12 [facility] PRN Reason: Protocol Last Admin: 11/14/16 22:00 Dose: 5,000 units Meropenem 500 mg/ Sodium (Chloride) 100 mls @ 100 mls/hr IVPB Q12@0500,1700 [facility] Last Admin: 11/15/16 05:00 Dose: 100 mls/hr Fluconazole (Diflucan Iv 100 Mg/50 Ml Ns) 50 mls @ 50 mls/hr IVPB DAILY@1700 [facility] Insulin Detemir (Levemir) 12 units SC HS [facility] Last Admin: 11/14/16 22:01 Dose: 12 units Insulin Human Regular (Humulin R) 0 units SC ACHS [facility] PRN Reason: Protocol Last Admin: 11/15/16 06:33 Dose: Not Given Metronidazole (Flagyl) 500 mg PO Q8 [facility] Last Admin: 11/15/16 01:25 Dose: 500 mg Morphine Sulfate (Morphine) 4 mg IVP Q4 PRN PRN Reason: Pain, severe (8-10) Ondansetron HCl (Zofran Inj) 4 mg IVP Q4 PRN PRN Reason: Nausea/Vomiting Oxycodone/Acetaminophen (Percocet 5/325 Mg Tab) 2 tab PO Q6 PRN PRN Reason: Pain, moderate (4-7) Stop: 11/17/16 14:20 Last Admin: 11/14/16 14:37 Dose: 2 tab Paroxetine HCl (Paxil) 20 mg PO DAILY [facility] Last Admin: 11/14/16 08:30 Dose: 20 mg Phenol/Menthol (Phenaseptic 1.4% Throat [place]) 1 spry MT Q2 PRN PRN Reason: Sore Throat Repaglinide (Prandin) 2 mg PO TIDWM [facility] Last Admin: 11/14/16 17:11 Dose: 2 mg Saccharomyces Boulardii (Florastor) 250 mg PO BID [facility] Last Admin: 11/14/16 17:11 Dose: 250 mg Sevelamer HCl (Renagel) 800 mg PO TID [facility] Last Admin: 11/14/16 17:11 Dose: 800 mg Sodium Bicarbonate (Sodium Bicarbonate Tab) 650 mg PO Q12 [facility] Last Admin: 11/14/16 22:04 Dose: 650 mg Valsartan (Diovan) 80 mg PO DAILY [facility] Last Admin: 11/14/16 08:31 Dose: 80 mg Vancomycin HCl (Vancocin (Oral/Rectal Use)) 125 mg PO QID [facility] Last Admin: 11/14/16 22:05 Dose: 125 mg - Labs Labs: 11/15/16 06:00 11/15/16 06:00 - Constitutional Appears: No Acute Distress - Head Exam Head Exam: NORMAL INSPECTION - Eye Exam Eye Exam: Normal appearance - ENT Exam ENT Exam: Mucous Membranes Moist - Neck Exam Neck Exam: Normal Inspection - Respiratory Exam Respiratory Exam: Decreased Breath Sounds, NORMAL BREATHING PATTERN - Cardiovascular Exam Cardiovascular Exam: REGULAR RHYTHM - GI/Abdominal Exam GI & Abdominal Exam: Soft, Normal Bowel Sounds. absent: Rigid, Tenderness, Rebound - Extremities Exam Extremities Exam: Normal Capillary Refill, Normal Inspection. absent: Pedal Edema Additional comments: moves fingers freely no issues with left wrist and hand - Neurological Exam Neurological Exam: Alert, Awake, Oriented x3 - Psychiatric Exam Psychiatric exam: Normal Affect, Normal Mood - Skin Skin Exam: Dry, Normal Color, Warm Assessment and Plan (1) Chronic kidney disease (CKD), stage IV (severe) Status: Chronic (2) Asymptomatic bacteriuria Status: Acute (3) Distal radial fracture Status: Acute (4) Uncontrolled diabetes mellitus Status: Acute (5) Depression Status: Chronic (6) Hypertension Status: Chronic (7) Hyperlipidemia Status: Chronic (8) Hydronephrosis Status: Chronic (9) Yeast UTI Status: Acute - Assessment and Plan (Free Text) Assessment: as per urology will consider diflucan therapy will also get a cbc today will discuss case with FP[ resident and makle appropriate order and adjustments in care plan
--- NOTE | 2016-11-15 07:57 | PN ---
DATE: 11/14/2016 ROOM: 713 This is a 76-year-old ____ physical therapy following a ____ and underwent an open reduction and inte rnal fixation procedure as noted. Her glycemic levels are much improved at this time with less glyce don fluctuations as noted. Her glucose levels have ranged from 130-141 mg/dL. The latest chemistry showed a BUN of 20, sodium 144, potassium 3.8, chloride ____ glucose 145 and creatinine 2.0. So at this time, we will continue the same basal insulin given as Levemir at 12 units subQ at bedtime daily as given. We will also continue the glipizide given as 10 mg t.i.d. before meals as ordered. We will titrate incrementally as indicated to optimize metabolic control. We will follow. Annelise Rai MD cc: [id number] TT: 11/14/2016 12:47:24 Confirmation # [id number] Dictation # [id number] en 11/15/2016 06:57:05
[2016-11-15] MEDS: Saccharomyces Boulardi 250 mg Cap PO SCH ×2 (08:49→16:45)
[2016-11-15] MEDS: Vancomycin 500 mg (Oral/Rectal USE) PO SCH ×4 (08:50→21:15)
--- NOTE | 2016-11-15 11:46 | CP.PCM.PN ---
Subjective - Date & Time of Evaluation Date of Evaluation: 11/15/16 Time of Evaluation: 11:45 - Subjective Subjective: doing well Objective - Vital Signs/Intake and Output Vital Signs (last 24 hours): Temp Pulse Resp BP Pulse Ox 97.9 F 61 20 146/79 100 11/15/16 08:34 11/15/16 08:34 11/15/16 08:34 11/15/16 08:34 11/15/16 08:34 - Medications Medications: Current Medications Acetaminophen (Tylenol 325mg Tab) 650 mg PO Q6 PRN PRN Reason: Fever >100.4 F Atorvastatin Calcium (Lipitor) 40 mg PO HS [facility] Last Admin: 11/14/16 22:04 Dose: 40 mg Cholecalciferol (Vitamin D) 1,000 iu PO DAILY [facility] Last Admin: 11/14/16 08:30 Dose: 1,000 iu Dextrose (Dextrose 50% Inj) 0 ml IV STAT PRN; Protocol PRN Reason: Hyglycemia Protocol Dextrose (Glutose 15) 0 gm PO ONCE PRN; Protocol PRN Reason: Hypoglycemia Protocol Glipizide (Glucotrol) 10 mg PO BIDAC [facility] Last Admin: 11/15/16 06:53 Dose: 10 mg Glucagon (Glucagen Diagnostic Kit) 0 mg IM STAT PRN; Protocol PRN Reason: Hypoglycemia Protocol Heparin Sodium (Porcine) (Heparin) 5,000 units SC Q12 [facility] PRN Reason: Protocol Last Admin: 11/15/16 08:53 Dose: 5,000 units Meropenem 500 mg/ Sodium (Chloride) 100 mls @ 100 mls/hr IVPB Q12@0500,1700 [facility] Last Admin: 11/15/16 05:00 Dose: 100 mls/hr Fluconazole (Diflucan Iv 100 Mg/50 Ml Ns) 50 mls @ 50 mls/hr IVPB DAILY@1700 [facility] Insulin Detemir (Levemir) 12 units SC HS [facility] Last Admin: 11/14/16 22:01 Dose: 12 units Insulin Human Regular (Humulin R) 0 units SC ACHS [facility] PRN Reason: Protocol Last Admin: 11/15/16 06:33 Dose: Not Given Metronidazole (Flagyl) 500 mg PO Q8 [facility] Last Admin: 11/15/16 08:49 Dose: 500 mg Morphine Sulfate (Morphine) 4 mg IVP Q4 PRN PRN Reason: Pain, severe (8-10) Ondansetron HCl (Zofran Inj) 4 mg IVP Q4 PRN PRN Reason: Nausea/Vomiting Oxycodone/Acetaminophen (Percocet 5/325 Mg Tab) 2 tab PO Q6 PRN PRN Reason: Pain, moderate (4-7) Stop: 11/17/16 14:20 Last Admin: 11/14/16 14:37 Dose: 2 tab Paroxetine HCl (Paxil) 20 mg PO DAILY [facility] Last Admin: 11/15/16 08:50 Dose: 20 mg Phenol/Menthol (Phenaseptic 1.4% Throat [place]) 1 spry MT Q2 PRN PRN Reason: Sore Throat Repaglinide (Prandin) 2 mg PO TIDWM [facility] Last Admin: 11/15/16 08:49 Dose: 2 mg Saccharomyces Boulardii (Florastor) 250 mg PO BID [facility] Last Admin: 11/15/16 08:49 Dose: 250 mg Sevelamer HCl (Renagel) 800 mg PO TID [facility] Last Admin: 11/15/16 08:50 Dose: 800 mg Sodium Bicarbonate (Sodium Bicarbonate Tab) 650 mg PO Q12 [facility] Last Admin: 11/15/16 08:50 Dose: 650 mg Valsartan (Diovan) 80 mg PO DAILY [facility] Last Admin: 11/15/16 08:52 Dose: 80 mg Vancomycin HCl (Vancocin (Oral/Rectal Use)) 125 mg PO QID [facility] Last Admin: 11/15/16 08:50 Dose: 125 mg - Labs Labs: 11/15/16 06:00 11/15/16 06:00 - GI/Abdominal Exam GI & Abdominal Exam: Soft, Normal Bowel Sounds Assessment and Plan - Assessment and Plan (Free Text) Assessment: 76 yo female with CDAD diarrhea improving dc planning
--- NOTE | 2016-11-15 12:21 | CON ---
DATE: 11/11/2016 REFERRING PHYSICIAN: Dr. Boswell REASON FOR CONSULTATION: Clostridium difficile, diarrhea. This is a 76-year-old female with a history of COPD, anxiety, depression, CKD, hypertension, diabetes , who is admitted for a fall and had ORIF of the left distal radius and developed C. diff, for which she is being treated. The patient's diarrhea is improving. There is no pain in the abdomen, doing w ell on a diet. No nausea, no vomiting, no fever, no chills. Currently lying in bed comfortable, no apparent distress. PAST MEDICAL HISTORY: As above. PAST SURGICAL HISTORY: As above. MEDICATIONS: Have been reviewed. All other systems have been reviewed and negative apart from the HPI. PHYSICAL EXAMINATION: VITAL SIGNS: Here in the hospital, grossly unremarkable. GENERAL: A pleasant, elderly-appearing female, lying in bed, comfortable, in no apparent distress. HEAD: Normocephalic, atraumatic. EYES: Pupils equally reactive to light bilaterally. No conjunctival pallor or icterus. NECK: Supple, normal range of motion. No lymphadenopathy appreciated. LUNGS: Coarse breath sounds bilaterally. HEART: S1, S2, regular rate and rhythm, no murmurs appreciated. ABDOMEN: Soft, nontender, bowel sounds present. No rebound, no guarding. RECTAL: Deferred. EXTREMITIES: Pulses present bilaterally. SKIN: Warm, dry and intact. NEUROLOGIC: Alert and oriented x 3. LABORATORIES: Have been reviewed leukocytosis. C. diff is positive. ASSESSMENT AND PLAN: This is a 76-year-old female with Clostridium difficile. Plan for p.o. vancomy velia for now. ID input appreciated. Thank you for the consult. Ede Barriga MD, PhD cc:Jose Juan Boswell MD [id number] TT: 11/15/2016 12:20:31 Confirmation # [id number] Dictation # [id number] en
--- NOTE | 2016-11-15 15:48 | PN ---
DATE: 11/15/2016 ROOM: 713 This is a 76-year-old female with recent uncontrolled type 2 insulin-requiring diabetes, now being fo llowed closely for metabolic management. Her glycemic levels are fluctuating, but improved, and the latest chemistry showed a BUN of 18, sodiu m 141, potassium 3.9, chloride 118, CO2 is 15 and creatinine is 1.9. Her glucose levels have ranged from 149-226 mg/dL. So at this time, we will continue the same basal insulin given as Levemir at 12 units subQ at bedtime daily as given. We will continue the Prandin given as 2 mg t.i.d. with meals with glipizide given a s 10 mg b.i.d. before meals as ordered. We will titrate incrementally as indicated to optimize metab olic control. We will follow. Annelise Rai MD cc: [id number] TT: 11/15/2016 15:47:44 Confirmation # [id number] Dictation # [id number] en
--- NOTE | 2016-11-15 16:25 | CP.PCM.PN ---
Subjective - Date & Time of Evaluation Date of Evaluation: 11/15/16 Time of Evaluation: 08:30 - Subjective Subjective: NO CHEST PAIN OR SOB LESS DIARRHEA TODAY Objective - Vital Signs/Intake and Output Vital Signs (last 24 hours): Temp Pulse Resp BP Pulse Ox 97.9 F 61 20 146/79 100 11/15/16 08:34 11/15/16 08:34 11/15/16 08:34 11/15/16 08:34 11/15/16 08:34 - Medications Medications: Current Medications Acetaminophen (Tylenol 325mg Tab) 650 mg PO Q6 PRN PRN Reason: Fever >100.4 F Atorvastatin Calcium (Lipitor) 40 mg PO HS [facility] Last Admin: 11/14/16 22:04 Dose: 40 mg Cholecalciferol (Vitamin D) 1,000 iu PO DAILY [facility] Last Admin: 11/15/16 08:40 Dose: 1,000 iu Dextrose (Dextrose 50% Inj) 0 ml IV STAT PRN; Protocol PRN Reason: Hyglycemia Protocol Dextrose (Glutose 15) 0 gm PO ONCE PRN; Protocol PRN Reason: Hypoglycemia Protocol Glipizide (Glucotrol) 10 mg PO BIDAC [facility] Last Admin: 11/15/16 06:53 Dose: 10 mg Glucagon (Glucagen Diagnostic Kit) 0 mg IM STAT PRN; Protocol PRN Reason: Hypoglycemia Protocol Heparin Sodium (Porcine) (Heparin) 5,000 units SC Q12 [facility] PRN Reason: Protocol Last Admin: 11/15/16 08:53 Dose: 5,000 units Meropenem 500 mg/ Sodium (Chloride) 100 mls @ 100 mls/hr IVPB Q12@0500,1700 [facility] Last Admin: 11/15/16 05:00 Dose: 100 mls/hr Fluconazole (Diflucan Iv 100 Mg/50 Ml Ns) 50 mls @ 50 mls/hr IVPB DAILY@1700 [facility] Insulin Detemir (Levemir) 12 units SC HS [facility] Last Admin: 11/14/16 22:01 Dose: 12 units Insulin Human Regular (Humulin R) 0 units SC ACHS [facility] PRN Reason: Protocol Last Admin: 11/15/16 12:20 Dose: Not Given Metronidazole (Flagyl) 500 mg PO Q8 [facility] Last Admin: 11/15/16 08:49 Dose: 500 mg Morphine Sulfate (Morphine) 4 mg IVP Q4 PRN PRN Reason: Pain, severe (8-10) Nystatin (Nystop Topical Powder) 1 applic TOP TID [facility] Ondansetron HCl (Zofran Inj) 4 mg IVP Q4 PRN PRN Reason: Nausea/Vomiting Oxycodone/Acetaminophen (Percocet 5/325 Mg Tab) 2 tab PO Q6 PRN PRN Reason: Pain, moderate (4-7) Stop: 11/17/16 14:20 Last Admin: 11/14/16 14:37 Dose: 2 tab Paroxetine HCl (Paxil) 20 mg PO DAILY [facility] Last Admin: 11/15/16 08:50 Dose: 20 mg Phenol/Menthol (Phenaseptic 1.4% Throat [place]) 1 spry MT Q2 PRN PRN Reason: Sore Throat Repaglinide (Prandin) 2 mg PO TIDWM [facility] Last Admin: 11/15/16 12:37 Dose: 2 mg Saccharomyces Boulardii (Florastor) 250 mg PO BID [facility] Last Admin: 11/15/16 08:49 Dose: 250 mg Sevelamer HCl (Renagel) 800 mg PO TID [facility] Last Admin: 11/15/16 12:36 Dose: 800 mg Sodium Bicarbonate (Sodium Bicarbonate Tab) 650 mg PO Q12 [facility] Last Admin: 11/15/16 08:50 Dose: 650 mg Valsartan (Diovan) 80 mg PO DAILY [facility] Last Admin: 11/15/16 08:52 Dose: 80 mg Vancomycin HCl (Vancocin (Oral/Rectal Use)) 125 mg PO QID [facility] Last Admin: 11/15/16 12:36 Dose: 125 mg - Labs Labs: 11/15/16 06:00 11/15/16 06:00 - Respiratory Exam Respiratory Exam: Clear to Ausculation Bilateral - Cardiovascular Exam Cardiovascular Exam: REGULAR RHYTHM, +S1, +S2 Assessment and Plan - Assessment and Plan (Free Text) Assessment: HYPERTENSION HYPERLIPIDEMIA C DIFFICILE COLITIS UTI Plan: CONTINUE VALSARTAN, ATORVASTATIN, MEROPENEM, VANCOMYCIN AND METRONIDAZOLE
[2016-11-15] MEDS: Fluconazole IV 100mg/50 ml NS 50 ML IVPB SCH (16:42)
--- NOTE | 2016-11-15 17:26 | CP.PCM.PN ---
Subjective - Date & Time of Evaluation Date of Evaluation: 11/15/16 Time of Evaluation: 12:00 - Subjective Subjective: SEEN ON RENAL F/U DIARRHIA ABATED STILL WITH TERRIBLE URINARY FREQUENCY SEEN BY Objective - Vital Signs/Intake and Output Vital Signs (last 24 hours): Temp Pulse Resp BP Pulse Ox 98.6 F 65 20 144/69 99 11/15/16 16:46 11/15/16 16:46 11/15/16 16:46 11/15/16 16:46 11/15/16 16:46 - Medications Medications: Current Medications Acetaminophen (Tylenol 325mg Tab) 650 mg PO Q6 PRN PRN Reason: Fever >100.4 F Atorvastatin Calcium (Lipitor) 40 mg PO HS [facility] Last Admin: 11/14/16 22:04 Dose: 40 mg Cholecalciferol (Vitamin D) 1,000 iu PO DAILY [facility] Last Admin: 11/15/16 08:40 Dose: 1,000 iu Dextrose (Dextrose 50% Inj) 0 ml IV STAT PRN; Protocol PRN Reason: Hyglycemia Protocol Dextrose (Glutose 15) 0 gm PO ONCE PRN; Protocol PRN Reason: Hypoglycemia Protocol Glipizide (Glucotrol) 10 mg PO BIDAC [facility] Last Admin: 11/15/16 16:44 Dose: 10 mg Glucagon (Glucagen Diagnostic Kit) 0 mg IM STAT PRN; Protocol PRN Reason: Hypoglycemia Protocol Heparin Sodium (Porcine) (Heparin) 5,000 units SC Q12 [facility] PRN Reason: Protocol Last Admin: 11/15/16 08:53 Dose: 5,000 units Meropenem 500 mg/ Sodium (Chloride) 100 mls @ 100 mls/hr IVPB Q12@0500,1700 [facility] Last Admin: 11/15/16 16:42 Dose: 100 mls/hr Fluconazole (Diflucan Iv 100 Mg/50 Ml Ns) 50 mls @ 50 mls/hr IVPB DAILY@1700 [facility] Last Admin: 11/15/16 16:42 Dose: 50 mls/hr Insulin Detemir (Levemir) 12 units SC HS [facility] Last Admin: 11/14/16 22:01 Dose: 12 units Insulin Human Regular (Humulin R) 0 units SC ACHS [facility] PRN Reason: Protocol Last Admin: 11/15/16 16:57 Dose: Not Given Metronidazole (Flagyl) 500 mg PO Q8 [facility] Last Admin: 11/15/16 16:44 Dose: 500 mg Morphine Sulfate (Morphine) 4 mg IVP Q4 PRN PRN Reason: Pain, severe (8-10) Nystatin (Nystop Topical Powder) 1 applic TOP TID [facility] Last Admin: 11/15/16 16:59 Dose: 1 applic Ondansetron HCl (Zofran Inj) 4 mg IVP Q4 PRN PRN Reason: Nausea/Vomiting Oxycodone/Acetaminophen (Percocet 5/325 Mg Tab) 2 tab PO Q6 PRN PRN Reason: Pain, moderate (4-7) Stop: 11/17/16 14:20 Last Admin: 11/14/16 14:37 Dose: 2 tab Paroxetine HCl (Paxil) 20 mg PO DAILY [facility] Last Admin: 11/15/16 08:50 Dose: 20 mg Phenol/Menthol (Phenaseptic 1.4% Throat [place]) 1 spry MT Q2 PRN PRN Reason: Sore Throat Repaglinide (Prandin) 2 mg PO TIDWM [facility] Last Admin: 11/15/16 16:44 Dose: 2 mg Saccharomyces Boulardii (Florastor) 250 mg PO BID [facility] Last Admin: 11/15/16 16:45 Dose: 250 mg Sevelamer HCl (Renagel) 800 mg PO TID [facility] Last Admin: 11/15/16 16:44 Dose: 800 mg Sodium Bicarbonate (Sodium Bicarbonate Tab) 650 mg PO Q12 [facility] Last Admin: 11/15/16 08:50 Dose: 650 mg Valsartan (Diovan) 80 mg PO DAILY [facility] Last Admin: 11/15/16 08:52 Dose: 80 mg Vancomycin HCl (Vancocin (Oral/Rectal Use)) 125 mg PO QID [facility] Last Admin: 11/15/16 17:00 Dose: 125 mg - Labs Labs: 11/15/16 06:00 11/15/16 06:00 Assessment and Plan - Assessment and Plan (Free Text) Assessment: CKD .. RENAL FUNCTION STABLE SEVERE ADELAIDA HYDRONEPHROSIS ..CHRONIC BLADDER RESIDUES PER SONOGRAM .. ALSO DIVERTICULUM REPORTED ON SONO FROM 2012 YTI MULTIPLE CO MORBIDITIES C/O CURRENT CARE
--- NOTE | 2016-11-15 19:24 | CP.PCM.PN ---
Subjective - Date & Time of Evaluation Date of Evaluation: 11/15/16 Time of Evaluation: 19:25 - Subjective Subjective: I D NOTE DIARRHEA DECREASING WBC IS DOWN TO 17 CONTINUE SAME RX Objective - Vital Signs/Intake and Output Vital Signs (last 24 hours): Temp Pulse Resp BP Pulse Ox 98.6 F 65 20 144/69 99 11/15/16 16:46 11/15/16 16:46 11/15/16 16:46 11/15/16 16:46 11/15/16 16:46 - Medications Medications: Current Medications Acetaminophen (Tylenol 325mg Tab) 650 mg PO Q6 PRN PRN Reason: Fever >100.4 F Atorvastatin Calcium (Lipitor) 40 mg PO HS [facility] Last Admin: 11/14/16 22:04 Dose: 40 mg Cholecalciferol (Vitamin D) 1,000 iu PO DAILY [facility] Last Admin: 11/15/16 08:40 Dose: 1,000 iu Dextrose (Dextrose 50% Inj) 0 ml IV STAT PRN; Protocol PRN Reason: Hyglycemia Protocol Dextrose (Glutose 15) 0 gm PO ONCE PRN; Protocol PRN Reason: Hypoglycemia Protocol Glipizide (Glucotrol) 10 mg PO BIDAC [facility] Last Admin: 11/15/16 16:44 Dose: 10 mg Glucagon (Glucagen Diagnostic Kit) 0 mg IM STAT PRN; Protocol PRN Reason: Hypoglycemia Protocol Heparin Sodium (Porcine) (Heparin) 5,000 units SC Q12 [facility] PRN Reason: Protocol Last Admin: 11/15/16 08:53 Dose: 5,000 units Meropenem 500 mg/ Sodium (Chloride) 100 mls @ 100 mls/hr IVPB Q12@0500,1700 [facility] Last Admin: 11/15/16 16:42 Dose: 100 mls/hr Fluconazole (Diflucan Iv 100 Mg/50 Ml Ns) 50 mls @ 50 mls/hr IVPB DAILY@1700 [facility] Last Admin: 11/15/16 16:42 Dose: 50 mls/hr Insulin Detemir (Levemir) 12 units SC HS [facility] Last Admin: 11/14/16 22:01 Dose: 12 units Insulin Human Regular (Humulin R) 0 units SC ACHS [facility] PRN Reason: Protocol Last Admin: 11/15/16 16:57 Dose: Not Given Metronidazole (Flagyl) 500 mg PO Q8 [facility] Last Admin: 11/15/16 16:44 Dose: 500 mg Morphine Sulfate (Morphine) 4 mg IVP Q4 PRN PRN Reason: Pain, severe (8-10) Nystatin (Nystop Topical Powder) 1 applic TOP TID [facility] Last Admin: 11/15/16 16:59 Dose: 1 applic Ondansetron HCl (Zofran Inj) 4 mg IVP Q4 PRN PRN Reason: Nausea/Vomiting Oxycodone/Acetaminophen (Percocet 5/325 Mg Tab) 2 tab PO Q6 PRN PRN Reason: Pain, moderate (4-7) Stop: 11/17/16 14:20 Last Admin: 11/14/16 14:37 Dose: 2 tab Paroxetine HCl (Paxil) 20 mg PO DAILY [facility] Last Admin: 11/15/16 08:50 Dose: 20 mg Phenol/Menthol (Phenaseptic 1.4% Throat [place]) 1 spry MT Q2 PRN PRN Reason: Sore Throat Repaglinide (Prandin) 2 mg PO TIDWM [facility] Last Admin: 11/15/16 16:44 Dose: 2 mg Saccharomyces Boulardii (Florastor) 250 mg PO BID [facility] Last Admin: 11/15/16 16:45 Dose: 250 mg Sevelamer HCl (Renagel) 800 mg PO TID [facility] Last Admin: 11/15/16 16:44 Dose: 800 mg Sodium Bicarbonate (Sodium Bicarbonate Tab) 650 mg PO Q12 [facility] Last Admin: 11/15/16 08:50 Dose: 650 mg Valsartan (Diovan) 80 mg PO DAILY [facility] Last Admin: 11/15/16 08:52 Dose: 80 mg Vancomycin HCl (Vancocin (Oral/Rectal Use)) 125 mg PO QID [facility] Last Admin: 11/15/16 17:00 Dose: 125 mg - Labs Labs: 11/15/16 06:00 11/15/16 06:00
[2016-11-15] MEDS: Insulin Detemir 100 Units/ml Inj SC SCH (21:18)
[2016-11-16] MEDS: Meropenem 500 MG in Sodium Chloride 0.9% 100 ML IVPB SCH ×2 (04:28→17:21)
[2016-11-16] MEDS: Insulin Regular 100 units/ml SC SCH ×4 (06:55→21:26)
[2016-11-16 07:20] LABS: BASO # 0.1 K/uL (0.0-0.2); BASO % 0.6 % (0.0-2.0); EOS # 0.6 K/uL (0.0-0.7); EOS % 3.6 % (0.0-4.0); HEMATOCRIT 33.9 % (34.0-47.0); LYMPH # 2.6 K/uL (1.0-4.3); LYMPH % 16.2 % (20.0-40.0); MEAN CELL VOLUME 83.1 fl (81.0-99.0); MEAN CORPUSCULAR HEMOGLOBIN 25.3 pg (27.0-31.0); MEAN CORPUSCULAR HGB CONC 30.5 g/dL (33.0-37.0); MEAN PLATELET VOLUME 7.2 fl (7.2-11.7); MONO # 1.1 K/uL (0.0-0.8); MONO % 6.8 % (0.0-10.0); NEUT # 11.8 K/uL (1.8-7.0); NEUT % 72.8 % (50.0-75.0); RED CELL DISTRIBUTION WIDTH 14.7 % (11.5-14.5); WHITE BLOOD COUNT 16.2 K/uL (4.8-10.8)
[2016-11-16 07:34] LABS: CALCIUM 8.5 mg/dL (8.4-10.2); POTASSIUM 3.8 MMOL/L (3.6-5.0)
[2016-11-16] MEDS: Saccharomyces Boulardi 250 mg Cap PO SCH ×2 (08:27→17:21)
[2016-11-16] MEDS: Vancomycin 500 mg (Oral/Rectal USE) PO SCH ×4 (08:28→21:19)
--- NOTE | 2016-11-16 10:57 | CP.PCM.PN ---
Subjective - Date & Time of Evaluation Date of Evaluation: 11/16/16 Time of Evaluation: 10:40 - Subjective Subjective: 76 y/o F admitted due to S/P ORIF L/distal radius, C.Diff infection and UCx + for Klebsiella is seen at bedside lying in bed in not acute distress. Patient diarrhea resolved at this time. Denies vomiting, nausea, CP, palpitations or SOB. Afebrile. She is tolerating PO diet. Denies dysuria. She is in good mood and has no complains today. Objective - Vital Signs/Intake and Output Vital Signs (last 24 hours): Temp Pulse Resp BP Pulse Ox 98.1 F 71 20 143/75 100 11/16/16 08:21 11/16/16 08:21 11/16/16 08:21 11/16/16 08:21 11/16/16 08:21 - Medications Medications: Current Medications Acetaminophen (Tylenol 325mg Tab) 650 mg PO Q6 PRN PRN Reason: Fever >100.4 F Atorvastatin Calcium (Lipitor) 40 mg PO HS [facility] Last Admin: 11/15/16 21:14 Dose: 40 mg Cholecalciferol (Vitamin D) 1,000 iu PO DAILY [facility] Last Admin: 11/16/16 08:27 Dose: 1,000 iu Dextrose (Dextrose 50% Inj) 0 ml IV STAT PRN; Protocol PRN Reason: Hyglycemia Protocol Dextrose (Glutose 15) 0 gm PO ONCE PRN; Protocol PRN Reason: Hypoglycemia Protocol Glipizide (Glucotrol) 10 mg PO BIDAC [facility] Last Admin: 11/16/16 06:52 Dose: 10 mg Glucagon (Glucagen Diagnostic Kit) 0 mg IM STAT PRN; Protocol PRN Reason: Hypoglycemia Protocol Heparin Sodium (Porcine) (Heparin) 5,000 units SC Q12 [facility] PRN Reason: Protocol Last Admin: 11/16/16 08:26 Dose: 5,000 units Meropenem 500 mg/ Sodium (Chloride) 100 mls @ 100 mls/hr IVPB Q12@0500,1700 [facility] Last Admin: 11/16/16 04:28 Dose: 100 mls/hr Fluconazole (Diflucan Iv 100 Mg/50 Ml Ns) 50 mls @ 50 mls/hr IVPB DAILY@1700 [facility] Last Admin: 11/15/16 16:42 Dose: 50 mls/hr Insulin Detemir (Levemir) 12 units SC [facility] Last Admin: 11/15/16 21:18 Dose: 12 units Insulin Human Regular (Humulin R) 0 units SC [facility] PRN Reason: Protocol Last Admin: 11/16/16 06:55 Dose: Not Given Metronidazole (Flagyl) 500 mg PO Q8 [facility] Last Admin: 11/16/16 08:27 Dose: 500 mg Morphine Sulfate (Morphine) 4 mg IVP Q4 PRN PRN Reason: Pain, severe (8-10) Nystatin (Nystop Topical Powder) 1 applic TOP TID [facility] Last Admin: 11/16/16 08:27 Dose: 1 applic Ondansetron HCl (Zofran Inj) 4 mg IVP Q4 PRN PRN Reason: Nausea/Vomiting Oxycodone/Acetaminophen (Percocet 5/325 Mg Tab) 2 tab PO Q6 PRN PRN Reason: Pain, moderate (4-7) Stop: 11/17/16 14:20 Last Admin: 11/14/16 14:37 Dose: 2 tab Paroxetine HCl (Paxil) 20 mg PO DAILY [facility] Last Admin: 11/16/16 08:27 Dose: 20 mg Phenol/Menthol (Phenaseptic 1.4% Throat [place]) 1 spry MT Q2 PRN PRN Reason: Sore Throat Repaglinide (Prandin) 2 mg PO TIDWM [facility] Last Admin: 11/16/16 08:27 Dose: 2 mg Saccharomyces Boulardii (Florastor) 250 mg PO BID [facility] Last Admin: 11/16/16 08:27 Dose: 250 mg Sevelamer HCl (Renagel) 800 mg PO TID [facility] Last Admin: 11/16/16 08:27 Dose: 800 mg Sodium Bicarbonate (Sodium Bicarbonate Tab) 650 mg PO Q12 [facility] Last Admin: 11/16/16 08:27 Dose: 650 mg Valsartan (Diovan) 80 mg PO DAILY [facility] Last Admin: 11/16/16 08:27 Dose: 80 mg Vancomycin HCl (Vancocin (Oral/Rectal Use)) 125 mg PO QID [facility] Last Admin: 11/16/16 08:28 Dose: 125 mg - Labs Labs: 11/16/16 06:30 11/16/16 06:30 - Constitutional Appears: Non-toxic, No Acute Distress - Eye Exam Pupil Exam: PERRL - ENT Exam ENT Exam: Mucous Membranes Moist - Neck Exam Neck Exam: Normal Inspection - Respiratory Exam Respiratory Exam: Clear to Ausculation Bilateral, NORMAL BREATHING PATTERN - Cardiovascular Exam Cardiovascular Exam: REGULAR RHYTHM, +S1, +S2 - GI/Abdominal Exam GI & Abdominal Exam: Soft, Normal Bowel Sounds. absent: Distended, Rebound - Extremities Exam Extremities Exam: Normal Capillary Refill. absent: Tenderness Additional comments: post-op cast and bandage in place. ROM and sensation of L/hand and fingers intact. - Neurological Exam Neurological Exam: Alert, Awake, Oriented x3 - Psychiatric Exam Psychiatric exam: Normal Affect, Normal Mood - Skin Skin Exam: Normal Color, Warm Assessment and Plan - Assessment and Plan (Free Text) Assessment: 75 y/o woman w/ PMHx of HLD, COPD, Anxiety/Depression, CKD, HTN, DM II admitted to TCU for PT/OT treatment s/p L/distal radius ORIF, cdiff positive. Elevate Leukocytosis -ID consult appreciated, Krystin Singer -most likely from cdiff -Cont trending down -afebrile -lactic acid 0.5 -Meropenem q12 IV day #4 (11/12) -BCx no growth C.Diff Colitis -diarrhea resolved -GI consult appreciated, Dr. Barriga -c diff positive(toxin and antigen) -c/w flagyl and PO Vanco Bacteriuria with B/L hydronephrosis -UCx: Klebsiella Pneu -On Meropenen -repeat u/a: turbid, large leukocyte esterase with [id number] and moderate blood -u/s bladder: severe b/l hydronephrosis, pre void 131.3 post void 95.9. bladder wall appears irregular posteriorly contains evidence of debris. dilated distal right ureter. incidental note gallbladder sludge -Repeat UCx: Yeast infection -Patient on Fluconazole IV -Urology consult Dr Valentine: No interventions at this time due to current infection. CKD (Stage 4) - Nephro consult appreciated: Dr Houston, - GFR 20, bun/cr stable -u/s renal: severe b/l hydronephrosis, post void 95.9. bladder wall appears irregular posteriorly contains evidence of debris. dilated distal right ureter. -c/w current management -Will contact Nephro and Urology about possible future plan for patient since patient has chronic b/l hydronephrosis with ureteral dilation and irregular post wall bladder Left distal radial fracture(stable) - S/P ORIF L/distal radius on 11/07 pod 5 - Morphine 2 mg IV Q4h and 4 mg IV Q6 prn for pain - Percocet 2 tab PO Q4 prn - Patient receiving PT services DM II uncontrolled - Asymptomatic, non-compliant with home insulin therapy - accuchecks/ACHS - On SSI as per Dr Rai - Cont Prandin and Glucotrol - HgbA1c 08/31/2016: 13.6 - heart healthy, moderate consistent carbohydrate diet - F/U Endocrinology Dr Rai recs - Patient will need Home health nursing services for DM teaching management after DC from hosp if DC on insulin therapy HTN - Cardiology consult appreciated, Dr Griffiths - Controlled, stable - continue with home meds: Valsartan 80 mg PO daily HLD - continue with atorvastatin 40 mg PO daily Incidential right adnexa cystic structure -will consider transvaginal u/s for further evaluation as outpatient -Asymptomatic Anxiety/Depression - stable - continue with home meds: Paroxetine 20 mg PO daily - Monitor DVT ppx - SCDs - heparin 5,000 sc q12
--- NOTE | 2016-11-16 11:06 | CP.PCM.PN ---
Subjective - Date & Time of Evaluation Date of Evaluation: 11/16/16 Time of Evaluation: 09:00 - Subjective Subjective: NO NEW COMPLAINTS FEELING BETTER Objective - Vital Signs/Intake and Output Vital Signs (last 24 hours): Temp Pulse Resp BP Pulse Ox 98.1 F 71 20 143/75 100 11/16/16 08:21 11/16/16 08:21 11/16/16 08:21 11/16/16 08:21 11/16/16 08:21 - Medications Medications: Current Medications Acetaminophen (Tylenol 325mg Tab) 650 mg PO Q6 PRN PRN Reason: Fever >100.4 F Atorvastatin Calcium (Lipitor) 40 mg PO HS [facility] Last Admin: 11/15/16 21:14 Dose: 40 mg Cholecalciferol (Vitamin D) 1,000 iu PO DAILY [facility] Last Admin: 11/16/16 08:27 Dose: 1,000 iu Dextrose (Dextrose 50% Inj) 0 ml IV STAT PRN; Protocol PRN Reason: Hyglycemia Protocol Dextrose (Glutose 15) 0 gm PO ONCE PRN; Protocol PRN Reason: Hypoglycemia Protocol Glipizide (Glucotrol) 10 mg PO BIDAC [facility] Last Admin: 11/16/16 06:52 Dose: 10 mg Glucagon (Glucagen Diagnostic Kit) 0 mg IM STAT PRN; Protocol PRN Reason: Hypoglycemia Protocol Heparin Sodium (Porcine) (Heparin) 5,000 units SC Q12 [facility] PRN Reason: Protocol Last Admin: 11/16/16 08:26 Dose: 5,000 units Meropenem 500 mg/ Sodium (Chloride) 100 mls @ 100 mls/hr IVPB Q12@0500,1700 [facility] Last Admin: 11/16/16 04:28 Dose: 100 mls/hr Fluconazole (Diflucan Iv 100 Mg/50 Ml Ns) 50 mls @ 50 mls/hr IVPB DAILY@1700 [facility] Last Admin: 11/15/16 16:42 Dose: 50 mls/hr Insulin Detemir (Levemir) 12 units SC HS [facility] Last Admin: 11/15/16 21:18 Dose: 12 units Insulin Human Regular (Humulin R) 0 units SC ACHS [facility] PRN Reason: Protocol Last Admin: 11/16/16 06:55 Dose: Not Given Metronidazole (Flagyl) 500 mg PO Q8 [facility] Last Admin: 11/16/16 08:27 Dose: 500 mg Morphine Sulfate (Morphine) 4 mg IVP Q4 PRN PRN Reason: Pain, severe (8-10) Nystatin (Nystop Topical Powder) 1 applic TOP TID [facility] Last Admin: 11/16/16 08:27 Dose: 1 applic Ondansetron HCl (Zofran Inj) 4 mg IVP Q4 PRN PRN Reason: Nausea/Vomiting Oxycodone/Acetaminophen (Percocet 5/325 Mg Tab) 2 tab PO Q6 PRN PRN Reason: Pain, moderate (4-7) Stop: 11/17/16 14:20 Last Admin: 11/14/16 14:37 Dose: 2 tab Paroxetine HCl (Paxil) 20 mg PO DAILY [facility] Last Admin: 11/16/16 08:27 Dose: 20 mg Phenol/Menthol (Phenaseptic 1.4% Throat [place]) 1 spry MT Q2 PRN PRN Reason: Sore Throat Repaglinide (Prandin) 2 mg PO TIDWM [facility] Last Admin: 11/16/16 08:27 Dose: 2 mg Saccharomyces Boulardii (Florastor) 250 mg PO BID [facility] Last Admin: 11/16/16 08:27 Dose: 250 mg Sevelamer HCl (Renagel) 800 mg PO TID [facility] Last Admin: 11/16/16 08:27 Dose: 800 mg Sodium Bicarbonate (Sodium Bicarbonate Tab) 650 mg PO Q12 [facility] Last Admin: 11/16/16 08:27 Dose: 650 mg Valsartan (Diovan) 80 mg PO DAILY [facility] Last Admin: 11/16/16 08:27 Dose: 80 mg Vancomycin HCl (Vancocin (Oral/Rectal Use)) 125 mg PO QID [facility] Last Admin: 11/16/16 08:28 Dose: 125 mg - Labs Labs: 11/16/16 06:30 11/16/16 06:30 - Respiratory Exam Respiratory Exam: Clear to Ausculation Bilateral - Cardiovascular Exam Cardiovascular Exam: REGULAR RHYTHM, +S1, +S2 Assessment and Plan - Assessment and Plan (Free Text) Assessment: HYPERTENSION HYPERLIPIDEMIA C DIFFICILE UTI S/P LEFT DISTAL RADIUS FRACTURE Plan: CONTINUE VALSARTAN, ATORVASTATIN, METRONIDAZOLE, VANCOMYCIN AND MEROPENUM
--- NOTE | 2016-11-16 16:54 | PN ---
DATE: 11/16/2016 ROOM: 713 This is a 76-year-old female with recent uncontrolled type 2 insulin-requiring diabetes, now being fo llowed closely for metabolic management. Her glycemic levels are fluctuating, but much improved at t his time and the latest chemistries showed a BUN of 18, sodium 143, potassium 3.8, chloride 116, CO2 remains low at 16, glucose 93 and creatinine 2.0. However, her prandial glucose values have remained elevated at 216-270 mg/dL. She is currently now on a dual oral hypoglycemic drug combination with g lipizide given as 10 mg b.i.d. and Prandin given as 2 mg t.i.d. with meals. She is also on Levemir t aken as 12 units subQ at bedtime daily as given. We will consider the addition of Januvia as the pat ient really cannot give extra insulin during the day because of her recent fracture in the left wrist as noted. We will observe her glycemic profile overnight tomorrow and determine the need for additi on of another oral hypoglycemic drug therapy as indicated. We will follow. Annelise Rai MD cc: [id number] TT: 11/16/2016 16:53:23 Confirmation # [id number] Dictation # [id number]
[2016-11-16] MEDS: Fluconazole IV 100mg/50 ml NS 50 ML IVPB SCH (17:20)
--- NOTE | 2016-11-16 20:13 | CP.PCM.PN ---
Subjective - Date & Time of Evaluation Date of Evaluation: 11/16/16 Time of Evaluation: 15:00 - Subjective Subjective: diarrhea improving Objective - Vital Signs/Intake and Output Vital Signs (last 24 hours): Temp Pulse Resp BP Pulse Ox 98.2 F 64 20 146/81 99 11/16/16 15:59 11/16/16 15:59 11/16/16 15:59 11/16/16 15:59 11/16/16 15:59 - Medications Medications: Current Medications Acetaminophen (Tylenol 325mg Tab) 650 mg PO Q6 PRN PRN Reason: Fever >100.4 F Atorvastatin Calcium (Lipitor) 40 mg PO HS [facility] Last Admin: 11/15/16 21:14 Dose: 40 mg Cholecalciferol (Vitamin D) 1,000 iu PO DAILY [facility] Last Admin: 11/16/16 08:27 Dose: 1,000 iu Dextrose (Dextrose 50% Inj) 0 ml IV STAT PRN; Protocol PRN Reason: Hyglycemia Protocol Dextrose (Glutose 15) 0 gm PO ONCE PRN; Protocol PRN Reason: Hypoglycemia Protocol Glipizide (Glucotrol) 10 mg PO BIDAC [facility] Last Admin: 11/16/16 17:21 Dose: 10 mg Glucagon (Glucagen Diagnostic Kit) 0 mg IM STAT PRN; Protocol PRN Reason: Hypoglycemia Protocol Heparin Sodium (Porcine) (Heparin) 5,000 units SC Q12 [facility] PRN Reason: Protocol Last Admin: 11/16/16 08:26 Dose: 5,000 units Meropenem 500 mg/ Sodium (Chloride) 100 mls @ 100 mls/hr IVPB Q12@0500,1700 [facility] Last Admin: 11/16/16 17:21 Dose: 100 mls/hr Fluconazole (Diflucan Iv 100 Mg/50 Ml Ns) 50 mls @ 50 mls/hr IVPB DAILY@1700 [facility] Last Admin: 11/16/16 17:20 Dose: 50 mls/hr Insulin Detemir (Levemir) 12 units SC HS [facility] Last Admin: 11/15/16 21:18 Dose: 12 units Insulin Human Regular (Humulin R) 0 units SC ACHS [facility] PRN Reason: Protocol Last Admin: 11/16/16 17:06 Dose: Not Given Metronidazole (Flagyl) 500 mg PO Q8 [facility] Last Admin: 11/16/16 17:21 Dose: 500 mg Morphine Sulfate (Morphine) 4 mg IVP Q4 PRN PRN Reason: Pain, severe (8-10) Nystatin (Nystop Topical Powder) 1 applic TOP TID [facility] Last Admin: 11/16/16 17:21 Dose: 1 applic Ondansetron HCl (Zofran Inj) 4 mg IVP Q4 PRN PRN Reason: Nausea/Vomiting Oxycodone/Acetaminophen (Percocet 5/325 Mg Tab) 2 tab PO Q6 PRN PRN Reason: Pain, moderate (4-7) Stop: 11/17/16 14:20 Last Admin: 11/14/16 14:37 Dose: 2 tab Paroxetine HCl (Paxil) 20 mg PO DAILY [facility] Last Admin: 11/16/16 08:27 Dose: 20 mg Phenol/Menthol (Phenaseptic 1.4% Throat [place]) 1 spry MT Q2 PRN PRN Reason: Sore Throat Repaglinide (Prandin) 2 mg PO TIDWM [facility] Last Admin: 11/16/16 17:21 Dose: 2 mg Saccharomyces Boulardii (Florastor) 250 mg PO BID [facility] Last Admin: 11/16/16 17:21 Dose: 250 mg Sevelamer HCl (Renagel) 800 mg PO TID [facility] Last Admin: 11/16/16 17:22 Dose: 800 mg Sodium Bicarbonate (Sodium Bicarbonate Tab) 650 mg PO Q12 [facility] Last Admin: 11/16/16 08:27 Dose: 650 mg Valsartan (Diovan) 80 mg PO DAILY [facility] Last Admin: 11/16/16 08:27 Dose: 80 mg Vancomycin HCl (Vancocin (Oral/Rectal Use)) 125 mg PO QID [facility] Last Admin: 11/16/16 17:21 Dose: 125 mg - Labs Labs: 11/16/16 06:30 11/16/16 06:30 - GI/Abdominal Exam GI & Abdominal Exam: Soft, Normal Bowel Sounds Assessment and Plan - Assessment and Plan (Free Text) Plan: 76 yo female with CDAD wbc improving diarrhea better
[2016-11-16] MEDS: Insulin Detemir 100 Units/ml Inj SC SCH (21:22)
--- NOTE | 2016-11-17 03:43 | CP.PCM.PN ---
Subjective - Date & Time of Evaluation Date of Evaluation: 11/16/16 Time of Evaluation: 13:00 - Subjective Subjective: SEEN ON RENAL F/U POLYURIA AND URGENCY RENAL FUNCTION REMAINS STABLE ALL PREVIOUS EMR RWVIEWED Objective - Vital Signs/Intake and Output Vital Signs (last 24 hours): Temp Pulse Resp BP Pulse Ox 97.9 F 65 20 145/70 98 11/16/16 20:48 11/16/16 20:48 11/16/16 20:48 11/16/16 20:48 11/16/16 20:48 - Medications Medications: Current Medications Acetaminophen (Tylenol 325mg Tab) 650 mg PO Q6 PRN PRN Reason: Fever >100.4 F Atorvastatin Calcium (Lipitor) 40 mg PO HS [facility] Last Admin: 11/16/16 21:19 Dose: 40 mg Cholecalciferol (Vitamin D) 1,000 iu PO DAILY [facility] Last Admin: 11/16/16 08:27 Dose: 1,000 iu Dextrose (Dextrose 50% Inj) 0 ml IV STAT PRN; Protocol PRN Reason: Hyglycemia Protocol Dextrose (Glutose 15) 0 gm PO ONCE PRN; Protocol PRN Reason: Hypoglycemia Protocol Glipizide (Glucotrol) 10 mg PO BIDAC [facility] Last Admin: 11/16/16 17:21 Dose: 10 mg Glucagon (Glucagen Diagnostic Kit) 0 mg IM STAT PRN; Protocol PRN Reason: Hypoglycemia Protocol Heparin Sodium (Porcine) (Heparin) 5,000 units SC Q12 [facility] PRN Reason: Protocol Last Admin: 11/16/16 20:41 Dose: 5,000 units Meropenem 500 mg/ Sodium (Chloride) 100 mls @ 100 mls/hr IVPB Q12@0500,1700 [facility] Last Admin: 11/16/16 17:21 Dose: 100 mls/hr Fluconazole (Diflucan Iv 100 Mg/50 Ml Ns) 50 mls @ 50 mls/hr IVPB DAILY@1700 [facility] Last Admin: 11/16/16 17:20 Dose: 50 mls/hr Insulin Detemir (Levemir) 12 units SC HS [facility] Last Admin: 11/16/16 21:22 Dose: 12 units Insulin Human Regular (Humulin R) 0 units SC ACHS [facility] PRN Reason: Protocol Last Admin: 11/16/16 21:26 Dose: Not Given Metronidazole (Flagyl) 500 mg PO Q8 [facility] Last Admin: 11/17/16 00:12 Dose: 500 mg Morphine Sulfate (Morphine) 4 mg IVP Q4 PRN PRN Reason: Pain, severe (8-10) Nystatin (Nystop Topical Powder) 1 applic TOP TID [facility] Last Admin: 11/16/16 17:21 Dose: 1 applic Ondansetron HCl (Zofran Inj) 4 mg IVP Q4 PRN PRN Reason: Nausea/Vomiting Oxycodone/Acetaminophen (Percocet 5/325 Mg Tab) 2 tab PO Q6 PRN PRN Reason: Pain, moderate (4-7) Stop: 11/17/16 14:20 Last Admin: 11/14/16 14:37 Dose: 2 tab Paroxetine HCl (Paxil) 20 mg PO DAILY [facility] Last Admin: 11/16/16 08:27 Dose: 20 mg Phenol/Menthol (Phenaseptic 1.4% Throat [place]) 1 spry MT Q2 PRN PRN Reason: Sore Throat Repaglinide (Prandin) 2 mg PO TIDWM [facility] Last Admin: 11/16/16 17:21 Dose: 2 mg Saccharomyces Boulardii (Florastor) 250 mg PO BID [facility] Last Admin: 11/16/16 17:21 Dose: 250 mg Sevelamer HCl (Renagel) 800 mg PO TID [facility] Last Admin: 11/16/16 17:22 Dose: 800 mg Sodium Bicarbonate (Sodium Bicarbonate Tab) 650 mg PO Q12 [facility] Last Admin: 11/16/16 20:41 Dose: 650 mg Valsartan (Diovan) 80 mg PO DAILY [facility] Last Admin: 11/16/16 08:27 Dose: 80 mg Vancomycin HCl (Vancocin (Oral/Rectal Use)) 125 mg PO QID [facility] Last Admin: 11/16/16 21:19 Dose: 125 mg - Labs Labs: 11/16/16 06:30 11/16/16 06:30 Assessment and Plan - Assessment and Plan (Free Text) Assessment: CKD STAGE 3-4 STABLE ANEMIA OF CKD .. STABLE FUNGUS UTI .. ON DIFLUCAN ADELAIDA HYRO .. CHRONIC .. SEEN BY DR GUIDO C/O CURRENT CARE
[2016-11-17] MEDS: Meropenem 500 MG in Sodium Chloride 0.9% 100 ML IVPB SCH ×2 (04:24→17:32)
[2016-11-17] MEDS: Insulin Regular 100 units/ml SC SCH ×4 (07:02→21:55)
[2016-11-17 07:16] LABS: BASO # 0.1 K/uL (0.0-0.2); BASO % 0.5 % (0.0-2.0); EOS # 0.3 K/uL (0.0-0.7); EOS % 2.1 % (0.0-4.0); HEMATOCRIT 33.3 % (34.0-47.0); LYMPH % 19.6 % (20.0-40.0); MEAN CORPUSCULAR HEMOGLOBIN 26.1 pg (27.0-31.0); MEAN CORPUSCULAR HGB CONC 32.3 g/dL (33.0-37.0); MEAN PLATELET VOLUME 7.5 fl (7.2-11.7); MONO # 1.2 K/uL (0.0-0.8); MONO % 8.2 % (0.0-10.0); NEUT # 10.5 K/uL (1.8-7.0); NEUT % 69.6 % (50.0-75.0); RED CELL DISTRIBUTION WIDTH 14.4 % (11.5-14.5); WHITE BLOOD COUNT 15.1 K/uL (4.8-10.8)
[2016-11-17 07:30] LABS: CALCIUM 8.9 mg/dL (8.4-10.2); POTASSIUM 4.6 MMOL/L (3.6-5.0)
[2016-11-17] MEDS: Saccharomyces Boulardi 250 mg Cap PO SCH ×2 (09:06→17:31)
[2016-11-17] MEDS: Vancomycin 500 mg (Oral/Rectal USE) PO SCH ×3 (09:10→17:35)
--- NOTE | 2016-11-17 09:41 | CP.PCM.PN ---
Subjective - Date & Time of Evaluation Date of Evaluation: 11/17/16 Time of Evaluation: 09:00 - Subjective Subjective: HAD DIARRHEA YESTERDAY Objective - Vital Signs/Intake and Output Vital Signs (last 24 hours): Temp Pulse Resp BP Pulse Ox 98.4 F 63 20 154/70 H 100 11/17/16 08:19 11/17/16 08:19 11/17/16 08:19 11/17/16 08:19 11/17/16 08:19 - Medications Medications: Current Medications Acetaminophen (Tylenol 325mg Tab) 650 mg PO Q6 PRN PRN Reason: Fever >100.4 F Atorvastatin Calcium (Lipitor) 40 mg PO HS [facility] Last Admin: 11/16/16 21:19 Dose: 40 mg Cholecalciferol (Vitamin D) 1,000 iu PO DAILY [facility] Last Admin: 11/17/16 09:09 Dose: 1,000 iu Dextrose (Dextrose 50% Inj) 0 ml IV STAT PRN; Protocol PRN Reason: Hyglycemia Protocol Dextrose (Glutose 15) 0 gm PO ONCE PRN; Protocol PRN Reason: Hypoglycemia Protocol Glipizide (Glucotrol) 10 mg PO BIDAC [facility] Last Admin: 11/17/16 06:53 Dose: 10 mg Glucagon (Glucagen Diagnostic Kit) 0 mg IM STAT PRN; Protocol PRN Reason: Hypoglycemia Protocol Heparin Sodium (Porcine) (Heparin) 5,000 units SC Q12 [facility] PRN Reason: Protocol Last Admin: 11/17/16 09:11 Dose: 5,000 units Meropenem 500 mg/ Sodium (Chloride) 100 mls @ 100 mls/hr IVPB Q12@0500,1700 [facility] Last Admin: 11/17/16 04:24 Dose: 100 mls/hr Fluconazole (Diflucan Iv 100 Mg/50 Ml Ns) 50 mls @ 50 mls/hr IVPB DAILY@1700 [facility] Last Admin: 11/16/16 17:20 Dose: 50 mls/hr Insulin Detemir (Levemir) 12 units SC HS [facility] Last Admin: 11/16/16 21:22 Dose: 12 units Insulin Human Regular (Humulin R) 0 units SC ACHS [facility] PRN Reason: Protocol Last Admin: 11/17/16 07:02 Dose: Not Given Metronidazole (Flagyl) 500 mg PO Q8 [facility] Last Admin: 11/17/16 09:08 Dose: 500 mg Morphine Sulfate (Morphine) 4 mg IVP Q4 PRN PRN Reason: Pain, severe (8-10) Nystatin (Nystop Topical Powder) 1 applic TOP TID [facility] Last Admin: 11/17/16 09:10 Dose: 1 applic Ondansetron HCl (Zofran Inj) 4 mg IVP Q4 PRN PRN Reason: Nausea/Vomiting Oxycodone/Acetaminophen (Percocet 5/325 Mg Tab) 2 tab PO Q6 PRN PRN Reason: Pain, moderate (4-7) Stop: 11/17/16 14:20 Last Admin: 11/14/16 14:37 Dose: 2 tab Paroxetine HCl (Paxil) 20 mg PO DAILY [facility] Last Admin: 11/17/16 09:07 Dose: 20 mg Phenol/Menthol (Phenaseptic 1.4% Throat [place]) 1 spry MT Q2 PRN PRN Reason: Sore Throat Repaglinide (Prandin) 2 mg PO TIDWM [facility] Last Admin: 11/17/16 09:07 Dose: 2 mg Saccharomyces Boulardii (Florastor) 250 mg PO BID [facility] Last Admin: 11/17/16 09:06 Dose: 250 mg Sevelamer HCl (Renagel) 800 mg PO TID [facility] Last Admin: 11/17/16 09:08 Dose: 800 mg Sodium Bicarbonate (Sodium Bicarbonate Tab) 650 mg PO Q12 [facility] Last Admin: 11/17/16 09:06 Dose: 650 mg Valsartan (Diovan) 80 mg PO DAILY [facility] Last Admin: 11/17/16 09:09 Dose: 80 mg Vancomycin HCl (Vancocin (Oral/Rectal Use)) 125 mg PO QID [facility] Last Admin: 11/17/16 09:10 Dose: 125 mg - Labs Labs: 11/17/16 05:45 11/17/16 05:45 - Respiratory Exam Respiratory Exam: Clear to Ausculation Bilateral - Cardiovascular Exam Cardiovascular Exam: REGULAR RHYTHM, +S1, +S2 Assessment and Plan - Assessment and Plan (Free Text) Assessment: FALL WITH LEFT DISTAL RADIUS FRACTURE HYPERTENSION HYPERLIPIDEMIA C DIFFICILE UTI Plan: CONTINUE VALSARTAN, ATORVASTATIN, ANTIBIOTICS
--- NOTE | 2016-11-17 10:10 | CP.PCM.PN ---
<Aquiles Kern - Last Filed: 11/17/16 10:18> Subjective - Date & Time of Evaluation Date of Evaluation: 11/17/16 Time of Evaluation: 07:30 - Subjective Subjective: 76 y/o F S/P ORIF left distal radius, c.diff diarrhea, and UTI, seen at bedside in not acute distress. Patient continues feeling better. Denies any pain. Patient denies having diarrhea yesterday. C/O polyuria, denies dysuria. Denies CP, palpitations, SOB. Tolerating PO. Patient general status markedly improved. Objective - Vital Signs/Intake and Output Vital Signs (last 24 hours): Temp Pulse Resp BP Pulse Ox 98.4 F 63 20 154/70 H 100 11/17/16 08:19 11/17/16 08:19 11/17/16 08:19 11/17/16 08:19 11/17/16 08:19 - Medications Medications: Current Medications Acetaminophen (Tylenol 325mg Tab) 650 mg PO Q6 PRN PRN Reason: Fever >100.4 F Atorvastatin Calcium (Lipitor) 40 mg PO HS [facility] Last Admin: 11/16/16 21:19 Dose: 40 mg Cholecalciferol (Vitamin D) 1,000 iu PO DAILY [facility] Last Admin: 11/17/16 09:09 Dose: 1,000 iu Dextrose (Dextrose 50% Inj) 0 ml IV STAT PRN; Protocol PRN Reason: Hyglycemia Protocol Dextrose (Glutose 15) 0 gm PO ONCE PRN; Protocol PRN Reason: Hypoglycemia Protocol Glipizide (Glucotrol) 10 mg PO BIDAC [facility] Last Admin: 11/17/16 06:53 Dose: 10 mg Glucagon (Glucagen Diagnostic Kit) 0 mg IM STAT PRN; Protocol PRN Reason: Hypoglycemia Protocol Heparin Sodium (Porcine) (Heparin) 5,000 units SC Q12 [facility] PRN Reason: Protocol Last Admin: 11/17/16 09:11 Dose: 5,000 units Meropenem 500 mg/ Sodium (Chloride) 100 mls @ 100 mls/hr IVPB Q12@0500,1700 [facility] Last Admin: 11/17/16 04:24 Dose: 100 mls/hr Fluconazole (Diflucan Iv 100 Mg/50 Ml Ns) 50 mls @ 50 mls/hr IVPB DAILY@1700 [facility] Last Admin: 11/16/16 17:20 Dose: 50 mls/hr Insulin Detemir (Levemir) 12 units SC HS [facility] Last Admin: 11/16/16 21:22 Dose: 12 units Insulin Human Regular (Humulin R) 0 units SC [facility] PRN Reason: Protocol Last Admin: 11/17/16 07:02 Dose: Not Given Metronidazole (Flagyl) 500 mg PO Q8 [facility] Last Admin: 11/17/16 09:08 Dose: 500 mg Morphine Sulfate (Morphine) 4 mg IVP Q4 PRN PRN Reason: Pain, severe (8-10) Nystatin (Nystop Topical Powder) 1 applic TOP TID [facility] Last Admin: 11/17/16 09:10 Dose: 1 applic Ondansetron HCl (Zofran Inj) 4 mg IVP Q4 PRN PRN Reason: Nausea/Vomiting Oxycodone/Acetaminophen (Percocet 5/325 Mg Tab) 2 tab PO Q6 PRN PRN Reason: Pain, moderate (4-7) Stop: 11/17/16 14:20 Last Admin: 11/14/16 14:37 Dose: 2 tab Paroxetine HCl (Paxil) 20 mg PO DAILY [facility] Last Admin: 11/17/16 09:07 Dose: 20 mg Phenol/Menthol (Phenaseptic 1.4% Throat [place]) 1 spry MT Q2 PRN PRN Reason: Sore Throat Repaglinide (Prandin) 2 mg PO TIDWM [facility] Last Admin: 11/17/16 09:07 Dose: 2 mg Saccharomyces Boulardii (Florastor) 250 mg PO BID [facility] Last Admin: 11/17/16 09:06 Dose: 250 mg Sevelamer HCl (Renagel) 800 mg PO TID [facility] Last Admin: 11/17/16 09:08 Dose: 800 mg Sodium Bicarbonate (Sodium Bicarbonate Tab) 650 mg PO Q12 [facility] Last Admin: 11/17/16 09:06 Dose: 650 mg Valsartan (Diovan) 80 mg PO DAILY [facility] Last Admin: 11/17/16 09:09 Dose: 80 mg Vancomycin HCl (Vancocin (Oral/Rectal Use)) 125 mg PO QID [facility] Last Admin: 11/17/16 09:10 Dose: 125 mg - Labs Labs: 11/17/16 05:45 11/17/16 05:45 - Constitutional Appears: Non-toxic, No Acute Distress - Head Exam Head Exam: NORMAL INSPECTION - Eye Exam Eye Exam: PERRL - ENT Exam ENT Exam: Mucous Membranes Moist - Respiratory Exam Respiratory Exam: Clear to Ausculation Bilateral, NORMAL BREATHING PATTERN. absent: Rales - Cardiovascular Exam Cardiovascular Exam: REGULAR RHYTHM, +S1, +S2. absent: Gallop - GI/Abdominal Exam GI & Abdominal Exam: Soft, Normal Bowel Sounds. absent: Distended, Tenderness - Extremities Exam Extremities Exam: Normal Capillary Refill. absent: Calf Tenderness Additional comments: L/ forearm covered with cast. Patient able to move finger and there are no changes in temp or sensation - Back Exam Back Exam: absent: CVA tenderness (L), CVA tenderness (R) - Neurological Exam Neurological Exam: Alert, Awake, Oriented x3 - Psychiatric Exam Psychiatric exam: Normal Affect, Normal Mood - Skin Skin Exam: Warm Assessment and Plan - Assessment and Plan (Free Text) Assessment: Assessment: 75 y/o woman w/ PMHx of HLD, COPD, Anxiety/Depression, CKD, HTN, DM II admitted to TCU for PT/OT treatment s/p L/distal radius ORIF, cdiff positive. Elevate Leukocytosis -ID consult appreciated, Dr. Lugo SVani -most likely from cdiff -WBC 15.1 cont trending down -afebrile -lactic acid 0.5 -Meropenem q12 IV day #5 (11/12) -BCx no growth C.Diff Colitis -diarrhea resolved -GI consult appreciated, Dr. Barriga -c diff positive(toxin and antigen) -c/w flagyl and PO Vanco Bacteriuria with B/L hydronephrosis -UCx: Klebsiella Pneu -On Meropenen -u/s bladder: severe b/l hydronephrosis, pre void 131.3 post void 95.9. bladder wall appears irregular posteriorly contains evidence of debris. dilated distal right ureter. incidental note gallbladder sludge -Repeat UCx: Yeast infection -Patient on Fluconazole IV -Urology consult Dr Valentine: No interventions at this time due to current infection. Patient is gonna need F/U as outpatient CKD (Stage 4) - Nephro consult appreciated: Dr Houston, - GFR 20, bun/cr stable -u/s renal: severe b/l hydronephrosis, post void 95.9. bladder wall appears irregular posteriorly contains evidence of debris. dilated distal right ureter. -c/w current management -Dr Houston revaluated patient yesterday. Patient will need f/u as outpatient with Nephrology Left distal radial fracture(stable) - S/P ORIF L/distal radius on 11/07 pod 5 - Morphine 2 mg IV Q4h and 4 mg IV Q6 prn for pain - Percocet 2 tab PO Q4 prn - Patient receiving PT services DM II uncontrolled - Asymptomatic, non-compliant with home insulin therapy - accuchecks/ACHS - Managed by data processing systems project planner(Dr Rai) - Cont Prandin and Glucotrol - HgbA1c 08/31/2016: 13.6 - heart healthy, moderate consistent carbohydrate diet - F/U Endocrinology Dr Rai recs - Patient will need Home health nursing services for DM teaching management after DC from hosp if DC on insulin therapy HTN - Cardiology consult appreciated, Dr Griffiths - Controlled, stable - continue with home meds: Valsartan 80 mg PO daily HLD - continue with atorvastatin 40 mg PO daily Incidential right adnexa cystic structure -will consider transvaginal u/s for further evaluation as outpatient -Asymptomatic Anxiety/Depression - stable - continue with home meds: Paroxetine 20 mg PO daily - Monitor DVT ppx - SCDs - heparin 5,000 sc q12 <Min Woody - Last Filed: 11/17/16 15:26> Objective - Vital Signs/Intake and Output Vital Signs (last 24 hours): Temp Pulse Resp BP Pulse Ox 98.4 F 63 20 154/70 H 100 11/17/16 08:19 11/17/16 08:19 11/17/16 08:19 11/17/16 08:19 11/17/16 08:19 - Medications Medications: Current Medications Acetaminophen (Tylenol 325mg Tab) 650 mg PO Q6 PRN PRN Reason: Fever >100.4 F Atorvastatin Calcium (Lipitor) 40 mg PO HS [facility] Last Admin: 11/16/16 21:19 Dose: 40 mg Cholecalciferol (Vitamin D) 1,000 iu PO DAILY [facility] Last Admin: 11/17/16 09:09 Dose: 1,000 iu Dextrose (Dextrose 50% Inj) 0 ml IV STAT PRN; Protocol PRN Reason: Hyglycemia Protocol Dextrose (Glutose 15) 0 gm PO ONCE PRN; Protocol PRN Reason: Hypoglycemia Protocol Glipizide (Glucotrol) 10 mg PO BIDAC [facility] Last Admin: 11/17/16 06:53 Dose: 10 mg Glucagon (Glucagen Diagnostic Kit) 0 mg IM STAT PRN; Protocol PRN Reason: Hypoglycemia Protocol Heparin Sodium (Porcine) (Heparin) 5,000 units SC Q12 [facility] PRN Reason: Protocol Last Admin: 11/17/16 09:11 Dose: 5,000 units Meropenem 500 mg/ Sodium (Chloride) 100 mls @ 100 mls/hr IVPB Q12@0500,1700 [facility] Last Admin: 11/17/16 04:24 Dose: 100 mls/hr Fluconazole (Diflucan Iv 100 Mg/50 Ml Ns) 50 mls @ 50 mls/hr IVPB DAILY@1700 [facility] Last Admin: 11/16/16 17:20 Dose: 50 mls/hr Insulin Detemir (Levemir) 12 units SC HS [facility] Last Admin: 11/16/16 21:22 Dose: 12 units Insulin Human Regular (Humulin R) 0 units SC ACHS [facility] PRN Reason: Protocol Last Admin: 11/17/16 11:30 Dose: Not Given Metronidazole (Flagyl) 500 mg PO Q8 [facility] Last Admin: 11/17/16 09:08 Dose: 500 mg Morphine Sulfate (Morphine) 4 mg IVP Q4 PRN PRN Reason: Pain, severe (8-10) Nystatin (Nystop Topical Powder) 1 applic TOP TID [facility] Last Admin: 11/17/16 13:19 Dose: 1 applic Ondansetron HCl (Zofran Inj) 4 mg IVP Q4 PRN PRN Reason: Nausea/Vomiting Paroxetine HCl (Paxil) 20 mg PO DAILY [facility] Last Admin: 11/17/16 09:07 Dose: 20 mg Phenol/Menthol (Phenaseptic 1.4% Throat [place]) 1 spry MT Q2 PRN PRN Reason: Sore Throat Repaglinide (Prandin) 2 mg PO TIDWM [facility] Last Admin: 11/17/16 12:00 Dose: 2 mg Saccharomyces Boulardii (Florastor) 250 mg PO BID [facility] Last Admin: 11/17/16 09:06 Dose: 250 mg Sevelamer HCl (Renagel) 800 mg PO TID [facility] Last Admin: 11/17/16 13:20 Dose: 800 mg Sodium Bicarbonate (Sodium Bicarbonate Tab) 650 mg PO Q12 [facility] Last Admin: 11/17/16 09:06 Dose: 650 mg Valsartan (Diovan) 80 mg PO DAILY [facility] Last Admin: 11/17/16 09:09 Dose: 80 mg Vancomycin HCl (Vancocin (Oral/Rectal Use)) 125 mg PO QID [facility] Last Admin: 11/17/16 13:20 Dose: 125 mg - Labs Labs: 11/17/16 05:45 11/17/16 05:45 Assessment and Plan (1) Chronic kidney disease (CKD), stage IV (severe) Status: Chronic (2) Asymptomatic bacteriuria Status: Acute (3) Distal radial fracture Status: Acute (4) Uncontrolled diabetes mellitus Status: Acute (5) Depression Status: Chronic (6) Hypertension Status: Chronic (7) Hyperlipidemia Status: Chronic (8) Hydronephrosis Status: Chronic (9) Yeast UTI Status: Acute Attending/Attestation - Attestation I have personally seen and examined this patient.: Yes I have fully participated in the care of the patient.: Yes I have reviewed all pertinent clinical information, including history, physical exam and plan: Yes
--- NOTE | 2016-11-17 16:00 | PN ---
DATE: 11/17/2016 ROOM: [address] [place] [address]. SUBJECTIVE: This is a 76-year-old female with recent uncontrolled type 2 insulin-requiring diabetes and is now being followed closely for metabolic management. LABORATORY DATA: Her glycemic levels are still fluctuating and have ranged from 123 to 247 and 287 m g/dL. Her latest chemistry showed a BUN of 19, sodium 142, potassium 4.6, chloride 113, CO2 of 18, g lucose 106, and creatinine 1.9. PLAN: So, at this time will continue the same basal insulin given as Levemir at 12 units subcutaneou s at bedtime daily as ordered. Will continue the dual oral hypoglycemic drug therapy with Prandin gi chhaya as 2 mg p.o. t.i.d. and glipizide given as 10 mg b.i.d. before meals as ordered. We will titrate incrementally as indicated to optimize metabolic control. Will follow and advise accordingly. Annelise Rai MD cc: [id number] TT: 11/17/2016 15:59:30 Confirmation # [id number] Dictation # [id number]
[2016-11-17] MEDS: Fluconazole IV 100mg/50 ml NS 50 ML IVPB SCH (18:58)
--- NOTE | 2016-11-17 21:35 | CP.PCM.PN ---
Subjective - Date & Time of Evaluation Date of Evaluation: 11/17/16 Time of Evaluation: 11:00 - Subjective Subjective: no new complaints Objective - Vital Signs/Intake and Output Vital Signs (last 24 hours): Temp Pulse Resp BP Pulse Ox 98.4 F 66 20 153/81 H 97 11/17/16 19:51 11/17/16 19:51 11/17/16 19:51 11/17/16 19:51 11/17/16 19:51 - Medications Medications: Current Medications Acetaminophen (Tylenol 325mg Tab) 650 mg PO Q6 PRN PRN Reason: Fever >100.4 F Atorvastatin Calcium (Lipitor) 40 mg PO HS [facility] Last Admin: 11/16/16 21:19 Dose: 40 mg Cholecalciferol (Vitamin D) 1,000 iu PO DAILY [facility] Last Admin: 11/17/16 09:09 Dose: 1,000 iu Dextrose (Dextrose 50% Inj) 0 ml IV STAT PRN; Protocol PRN Reason: Hyglycemia Protocol Dextrose (Glutose 15) 0 gm PO ONCE PRN; Protocol PRN Reason: Hypoglycemia Protocol Glipizide (Glucotrol) 10 mg PO BIDAC [facility] Last Admin: 11/17/16 16:30 Dose: 10 mg Glucagon (Glucagen Diagnostic Kit) 0 mg IM STAT PRN; Protocol PRN Reason: Hypoglycemia Protocol Heparin Sodium (Porcine) (Heparin) 5,000 units SC Q12 [facility] PRN Reason: Protocol Last Admin: 11/17/16 09:11 Dose: 5,000 units Meropenem 500 mg/ Sodium (Chloride) 100 mls @ 100 mls/hr IVPB Q12@0500,1700 [facility] Last Admin: 11/17/16 17:32 Dose: 100 mls/hr Fluconazole (Diflucan Iv 100 Mg/50 Ml Ns) 50 mls @ 50 mls/hr IVPB DAILY@1700 [facility] Last Admin: 11/17/16 18:58 Dose: 50 mls/hr Insulin Detemir (Levemir) 12 units SC HS [facility] Last Admin: 11/16/16 21:22 Dose: 12 units Insulin Human Regular (Humulin R) 0 units SC ACHS [facility] PRN Reason: Protocol Last Admin: 11/17/16 16:45 Dose: 4 units Metronidazole (Flagyl) 500 mg PO Q8 [facility] Last Admin: 11/17/16 17:31 Dose: 500 mg Morphine Sulfate (Morphine) 4 mg IVP Q4 PRN PRN Reason: Pain, severe (8-10) Nystatin (Nystop Topical Powder) 1 applic TOP TID [facility] Last Admin: 11/17/16 17:33 Dose: 1 applic Ondansetron HCl (Zofran Inj) 4 mg IVP Q4 PRN PRN Reason: Nausea/Vomiting Paroxetine HCl (Paxil) 20 mg PO DAILY [facility] Last Admin: 11/17/16 09:07 Dose: 20 mg Phenol/Menthol (Phenaseptic 1.4% Throat [place]) 1 spry MT Q2 PRN PRN Reason: Sore Throat Repaglinide (Prandin) 2 mg PO TIDWM [facility] Last Admin: 11/17/16 17:34 Dose: 2 mg Saccharomyces Boulardii (Florastor) 250 mg PO BID [facility] Last Admin: 11/17/16 17:31 Dose: 250 mg Sevelamer HCl (Renagel) 800 mg PO TID [facility] Last Admin: 11/17/16 17:33 Dose: 800 mg Sodium Bicarbonate (Sodium Bicarbonate Tab) 650 mg PO Q12 [facility] Last Admin: 11/17/16 09:06 Dose: 650 mg Valsartan (Diovan) 80 mg PO DAILY [facility] Last Admin: 11/17/16 09:09 Dose: 80 mg Vancomycin HCl (Vancocin (Oral/Rectal Use)) 125 mg PO QID [facility] Last Admin: 11/17/16 17:35 Dose: 125 mg - Labs Labs: 11/17/16 05:45 11/17/16 05:45 - GI/Abdominal Exam GI & Abdominal Exam: Soft, Normal Bowel Sounds Assessment and Plan - Assessment and Plan (Free Text) Assessment: 76 yo female with CDAD doing well wbc improved dc planning from GI standpoint
[2016-11-17] MEDS: Insulin Detemir 100 Units/ml Inj SC SCH (21:57)
[2016-11-18] MEDS: Vancomycin 500 mg (Oral/Rectal USE) PO SCH ×5 (00:24→21:18)
[2016-11-18] MEDS: Meropenem 500 MG in Sodium Chloride 0.9% 100 ML IVPB SCH (05:30)
[2016-11-18] MEDS: Insulin Regular 100 units/ml SC SCH ×2 (06:48→11:00)
[2016-11-18] MEDS: Saccharomyces Boulardi 250 mg Cap PO SCH ×2 (08:36→17:25)
--- NOTE | 2016-11-18 11:52 | CP.PCM.PN ---
Subjective - Date & Time of Evaluation Date of Evaluation: 11/18/16 Time of Evaluation: 09:30 - Subjective Subjective: NO CHEST PAIN SOFT BM TODAY Objective - Vital Signs/Intake and Output Vital Signs (last 24 hours): Temp Pulse Resp BP Pulse Ox 97.9 F 65 20 162/84 H 98 11/18/16 07:55 11/18/16 07:55 11/18/16 07:55 11/18/16 07:55 11/18/16 07:55 - Medications Medications: Current Medications Acetaminophen (Tylenol 325mg Tab) 650 mg PO Q6 PRN PRN Reason: Fever >100.4 F Atorvastatin Calcium (Lipitor) 40 mg PO HS [facility] Last Admin: 11/17/16 23:12 Dose: 40 mg Cholecalciferol (Vitamin D) 1,000 iu PO DAILY [facility] Last Admin: 11/18/16 08:36 Dose: 1,000 iu Dextrose (Dextrose 50% Inj) 0 ml IV STAT PRN; Protocol PRN Reason: Hyglycemia Protocol Dextrose (Glutose 15) 0 gm PO ONCE PRN; Protocol PRN Reason: Hypoglycemia Protocol Fluconazole (Diflucan) 100 mg PO DAILY [facility] Glipizide (Glucotrol) 10 mg PO BIDAC [facility] Last Admin: 11/18/16 08:35 Dose: 10 mg Glucagon (Glucagen Diagnostic Kit) 0 mg IM STAT PRN; Protocol PRN Reason: Hypoglycemia Protocol Heparin Sodium (Porcine) (Heparin) 5,000 units SC Q12 [facility] PRN Reason: Protocol Last Admin: 11/18/16 08:36 Dose: 5,000 units Insulin Detemir (Levemir) 12 units SC HS [facility] Last Admin: 11/17/16 21:57 Dose: 12 units Insulin Human Regular (Humulin R) 0 units SC ACHS [facility] PRN Reason: Protocol Last Admin: 11/18/16 11:00 Dose: 4 units Metronidazole (Flagyl) 500 mg PO Q8 [facility] Last Admin: 11/18/16 08:36 Dose: 500 mg Morphine Sulfate (Morphine) 4 mg IVP Q4 PRN PRN Reason: Pain, severe (8-10) Nystatin (Nystop Topical Powder) 1 applic TOP TID [facility] Last Admin: 11/18/16 08:35 Dose: 1 applic Ondansetron HCl (Zofran Inj) 4 mg IVP Q4 PRN PRN Reason: Nausea/Vomiting Paroxetine HCl (Paxil) 20 mg PO DAILY [facility] Last Admin: 11/18/16 08:36 Dose: 20 mg Phenol/Menthol (Phenaseptic 1.4% Throat [place]) 1 spry MT Q2 PRN PRN Reason: Sore Throat Repaglinide (Prandin) 2 mg PO TIDWM [facility] Last Admin: 11/18/16 08:36 Dose: 2 mg Saccharomyces Boulardii (Florastor) 250 mg PO BID [facility] Last Admin: 11/18/16 08:36 Dose: 250 mg Sevelamer HCl (Renagel) 800 mg PO TID [facility] Last Admin: 11/18/16 08:35 Dose: 800 mg Sodium Bicarbonate (Sodium Bicarbonate Tab) 650 mg PO Q12 [facility] Last Admin: 11/18/16 08:36 Dose: 650 mg Valsartan (Diovan) 80 mg PO DAILY [facility] Last Admin: 11/18/16 08:35 Dose: 80 mg Vancomycin HCl (Vancocin (Oral/Rectal Use)) 125 mg PO QID [facility] Last Admin: 11/18/16 08:36 Dose: 125 mg - Labs Labs: 11/17/16 05:45 11/17/16 05:45 - Respiratory Exam Respiratory Exam: Clear to Ausculation Bilateral - Cardiovascular Exam Cardiovascular Exam: REGULAR RHYTHM, +S1, +S2 Assessment and Plan - Assessment and Plan (Free Text) Assessment: HYPERTENSION HYPERLIPIDEMIA C. DIFFICILE COLITIS UTI Plan: CONTINUE VALSARTAN, ATORVASTATIN AND ANTIBIOTICS
--- NOTE | 2016-11-18 13:20 | PN ---
DATE: 11/18/2016 ROOM: 3, [facility]. This is a 76-year-old female with recent uncontrolled type 2 insulin-requiring diabetes, now being fo llowed closely for metabolic management. Her glycemic levels have really fluctuated with recent hype rglycemic accelerations as noted thereof. Her glucose levels today have ranged from 222 to 277 and 3 43 mg/dL. It was 287 to 312 last night as noted. The latest chemistries include a BUN of 19, sodium 142, potassium 4.6, chloride 113, CO2 18, glucose 106 and creatinine 1.9. So, at this time, we will continue the Levemir given as 12 units subQ at bedtime daily as ordered wit h a dual oral hypoglycemic therapy with Prandin given as 2 mg p.o. t.i.d. with meals and glipizide gi chhaya as 10 mg b.i.d. before meals as ordered. We will add Humalog given as 4 units subQ t.i.d. before meals as ordered to start today. We will titrate incrementally as indicated to optimize metabolic c ontrol. We will follow. Annelise Rai MD cc: [id number] TT: 11/18/2016 13:19:46 Confirmation # [id number] Dictation # [id number] [email or web address]
--- NOTE | 2016-11-18 14:08 | CP.PCM.PN ---
<Aquiles Kern - Last Filed: 11/18/16 14:14> Subjective - Date & Time of Evaluation Date of Evaluation: 11/18/16 Time of Evaluation: 13:30 - Subjective Subjective: 76 y/o F s/p ORIF L/distal radius, c.diff and UTI evaluated at bedside in not acute distress. Patient states she feels tired today. Denies CP, SOB, palpitations, abd pain. Had a soft BM yesterday. Patient tolerating PO well. Patient is medically cleared to be discharge to subacute rehab. Patient doesn't want to go to subacute rehab and will like to go home after DC from hosp. Spoke with PT and they recommend patient to receive PT in TCU until next Monday because she lives alone and is not functionally ready to go home since she refused to go [facility]. Patient aware and agrees. Objective - Vital Signs/Intake and Output Vital Signs (last 24 hours): Temp Pulse Resp BP Pulse Ox 97.9 F 65 20 162/84 H 98 11/18/16 07:55 11/18/16 07:55 11/18/16 07:55 11/18/16 07:55 11/18/16 07:55 - Medications Medications: Current Medications Acetaminophen (Tylenol 325mg Tab) 650 mg PO Q6 PRN PRN Reason: Fever >100.4 F Atorvastatin Calcium (Lipitor) 40 mg PO HS [facility] Last Admin: 11/17/16 23:12 Dose: 40 mg Cholecalciferol (Vitamin D) 1,000 iu PO DAILY [facility] Last Admin: 11/18/16 08:36 Dose: 1,000 iu Dextrose (Dextrose 50% Inj) 0 ml IV STAT PRN; Protocol PRN Reason: Hyglycemia Protocol Dextrose (Glutose 15) 0 gm PO ONCE PRN; Protocol PRN Reason: Hypoglycemia Protocol Fluconazole (Diflucan) 100 mg PO DAILY [facility] Glipizide (Glucotrol) 10 mg PO BIDAC [facility] Last Admin: 11/18/16 08:35 Dose: 10 mg Glucagon (Glucagen Diagnostic Kit) 0 mg IM STAT PRN; Protocol PRN Reason: Hypoglycemia Protocol Heparin Sodium (Porcine) (Heparin) 5,000 units SC Q12 [place] PRN Reason: Protocol Last Admin: 11/18/16 08:36 Dose: 5,000 units Insulin Detemir (Levemir) 12 units SC HS [facility] Last Admin: 11/17/16 21:57 Dose: 12 units Insulin Human Lispro (Humalog) 4 units SC AC [facility] Insulin Human Lispro (Humalog) 0 units SC ACHS [facility] PRN Reason: Protocol Metronidazole (Flagyl) 500 mg PO Q8 [facility] Last Admin: 11/18/16 08:36 Dose: 500 mg Morphine Sulfate (Morphine) 4 mg IVP Q4 PRN PRN Reason: Pain, severe (8-10) Nystatin (Nystop Topical Powder) 1 applic TOP TID [facility] Last Admin: 11/18/16 12:03 Dose: 1 applic Ondansetron HCl (Zofran Inj) 4 mg IVP Q4 PRN PRN Reason: Nausea/Vomiting Paroxetine HCl (Paxil) 20 mg PO DAILY [facility] Last Admin: 11/18/16 08:36 Dose: 20 mg Phenol/Menthol (Phenaseptic 1.4% Throat [place]) 1 spry MT Q2 PRN PRN Reason: Sore Throat Repaglinide (Prandin) 2 mg PO TIDWM [facility] Last Admin: 11/18/16 12:01 Dose: 2 mg Saccharomyces Boulardii (Florastor) 250 mg PO BID [facility] Last Admin: 11/18/16 08:36 Dose: 250 mg Sevelamer HCl (Renagel) 800 mg PO TID [facility] Last Admin: 11/18/16 12:00 Dose: 800 mg Sodium Bicarbonate (Sodium Bicarbonate Tab) 650 mg PO Q12 [facility] Last Admin: 11/18/16 08:36 Dose: 650 mg Valsartan (Diovan) 80 mg PO DAILY [facility] Last Admin: 11/18/16 08:35 Dose: 80 mg Vancomycin HCl (Vancocin (Oral/Rectal Use)) 125 mg PO QID [facility] Last Admin: 11/18/16 12:01 Dose: 125 mg - Labs Labs: 11/17/16 05:45 11/17/16 05:45 - Constitutional Appears: Non-toxic, No Acute Distress - Eye Exam Eye Exam: PERRL - Respiratory Exam Respiratory Exam: Clear to Ausculation Bilateral, NORMAL BREATHING PATTERN - Cardiovascular Exam Cardiovascular Exam: REGULAR RHYTHM, +S1, +S2. absent: Gallop - GI/Abdominal Exam GI & Abdominal Exam: Soft, Normal Bowel Sounds. absent: Distended, Rebound - Extremities Exam Extremities Exam: Normal Capillary Refill. absent: Calf Tenderness Additional comments: L/Wrist and forearm covered with cast. NO signs of vascular or neurologic compromise. - Back Exam Back Exam: absent: CVA tenderness (L), CVA tenderness (R) - Neurological Exam Neurological Exam: Alert, Awake, Oriented x3 - Psychiatric Exam Psychiatric exam: Normal Affect, Normal Mood - Skin Skin Exam: Normal Color Assessment and Plan - Assessment and Plan (Free Text) Assessment: 75 y/o woman w/ PMHx of HLD, COPD, Anxiety/Depression, CKD, HTN, DM II admitted to TCU for PT/OT treatment s/p L/distal radius ORIF, cdiff positive. Elevate Leukocytosis -ID consult appreciated, Krystin Singer -most likely from cdiff -WBC cont trending down -afebrile -lactic acid 0.5 -Meropenen DC as per ID recs -BCx no growth C.Diff Colitis -diarrhea resolved -GI consult appreciated, Dr. Barriga -c diff positive(toxin and antigen) -c/w flagyl and PO Vanco(to complete 10 days) Bacteriuria with B/L hydronephrosis -Initial UCx: Klebsiella Pneu: Patient completed IV Meropenen course -u/s bladder: severe b/l hydronephrosis, pre void 131.3 post void 95.9. bladder wall appears irregular posteriorly contains evidence of debris. dilated distal right ureter. incidental note gallbladder sludge -Repeat UCx: Yeast infection -Switch to PO Fluconazole 100mg daily(to complete 10 days) -Urology consult Dr Valentine: No interventions at this time due to current infection. Patient is gonna need F/U as outpatient CKD (Stage 4) - Nephro consult appreciated: Dr Houston, - GFR 20, bun/cr stable -u/s renal: severe b/l hydronephrosis, post void 95.9. bladder wall appears irregular posteriorly contains evidence of debris. dilated distal right ureter. -c/w current management Left distal radial fracture(stable) - S/P ORIF L/distal radius on 11/07 pod 5 - Morphine 2 mg IV Q4h and 4 mg IV Q6 prn for pain - Percocet 2 tab PO Q4 prn - Patient receiving PT services until MondayNovember 22 as per PT recommendation - PT recommends [facility] after TCU but patient declines and wants to go home after living hosp DM II uncontrolled - non-compliant with home insulin therapy - accuchecks/ACHS - Managed by rail grinder(Dr Rai) - Cont Prandin and Glucotrol - HgbA1c 08/31/2016: 13.6 - heart healthy, moderate consistent carbohydrate diet - F/U Endocrinology Dr Rai recs - Patient will need Home health nursing services for DM teaching management after DC from hosp if DC on insulin therapy HTN - Cardiology consult appreciated, Dr Griffiths - Controlled, stable - continue with home meds: Valsartan 80 mg PO daily HLD - continue with atorvastatin 40 mg PO daily Anxiety/Depression - stable - continue with home meds: Paroxetine 20 mg PO daily - Monitor DVT ppx - SCDs - heparin 5,000 sc q12 <Min Woody - Last Filed: 11/21/16 06:43> Objective - Vital Signs/Intake and Output Vital Signs (last 24 hours): Temp Pulse Resp BP Pulse Ox 97.9 F 66 20 118/68 96 11/20/16 21:51 11/20/16 21:51 11/20/16 21:51 11/20/16 21:51 11/20/16 21:51 - Medications Medications: Current Medications Acetaminophen (Tylenol 325mg Tab) 650 mg PO Q6 PRN PRN Reason: Fever >100.4 F Atorvastatin Calcium (Lipitor) 40 mg PO HS [facility] Last Admin: 11/20/16 21:17 Dose: 40 mg Cholecalciferol (Vitamin D) 1,000 iu PO DAILY [facility] Last Admin: 11/20/16 09:37 Dose: 1,000 iu Dextrose (Dextrose 50% Inj) 0 ml IV STAT PRN; Protocol PRN Reason: Hyglycemia Protocol Dextrose (Glutose 15) 0 gm PO ONCE PRN; Protocol PRN Reason: Hypoglycemia Protocol Fluconazole (Diflucan) 100 mg PO DAILY [facility] Last Admin: 11/20/16 09:38 Dose: 100 mg Glipizide (Glucotrol) 10 mg PO BIDAC [facility] Last Admin: 11/20/16 16:40 Dose: 10 mg Glucagon (Glucagen Diagnostic Kit) 0 mg IM STAT PRN; Protocol PRN Reason: Hypoglycemia Protocol Heparin Sodium (Porcine) (Heparin) 5,000 units SC Q12 [place] PRN Reason: Protocol Last Admin: 11/20/16 21:17 Dose: 5,000 units Insulin Detemir (Levemir) 20 units SC HS [facility] Last Admin: 11/20/16 21:25 Dose: 20 units Insulin Human Lispro (Humalog) 0 units SC ACHS [facility] PRN Reason: Protocol Last Admin: 11/20/16 21:28 Dose: Not Given Insulin Human Lispro (Humalog) 10 units SC AC [facility] Last Admin: 11/20/16 16:51 Dose: 10 unit Metronidazole (Flagyl) 500 mg PO Q8 [facility] Last Admin: 11/21/16 00:42 Dose: 500 mg Nystatin (Nystop Topical Powder) 1 applic TOP TID [facility] Last Admin: 11/20/16 16:44 Dose: 1 applic Ondansetron HCl (Zofran Inj) 4 mg IVP Q4 PRN PRN Reason: Nausea/Vomiting Paroxetine HCl (Paxil) 20 mg PO DAILY [facility] Last Admin: 11/20/16 09:38 Dose: 20 mg Phenol/Menthol (Phenaseptic 1.4% Throat [place]) 1 spry MT Q2 PRN PRN Reason: Sore Throat Repaglinide (Prandin) 2 mg PO TIDWM [facility] Last Admin: 11/20/16 16:45 Dose: 2 mg Saccharomyces Boulardii (Florastor) 250 mg PO BID [facility] Last Admin: 11/20/16 16:40 Dose: 250 mg Sevelamer HCl (Renagel) 800 mg PO TID [facility] Last Admin: 11/20/16 16:46 Dose: 800 mg Sodium Bicarbonate (Sodium Bicarbonate Tab) 650 mg PO Q12 [facility] Last Admin: 11/20/16 21:17 Dose: 650 mg Valsartan (Diovan) 80 mg PO DAILY [facility] Last Admin: 11/20/16 09:30 Dose: 80 mg Vancomycin HCl (Vancocin (Oral/Rectal Use)) 125 mg PO QID [facility] Last Admin: 11/20/16 21:19 Dose: 125 mg - Labs Labs: 11/20/16 09:00 11/20/16 09:00 Assessment and Plan (1) Chronic kidney disease (CKD), stage IV (severe) Status: Chronic (2) Asymptomatic bacteriuria Status: Acute (3) Distal radial fracture Status: Acute (4) Uncontrolled diabetes mellitus Status: Acute (5) Depression Status: Chronic (6) Hypertension Status: Chronic (7) Hyperlipidemia Status: Chronic (8) Hydronephrosis Status: Chronic (9) Yeast UTI Status: Acute Attending/Attestation - Attestation I have personally seen and examined this patient.: Yes I have fully participated in the care of the patient.: Yes I have reviewed all pertinent clinical information, including history, physical exam and plan: Yes
[2016-11-18] MEDS: Insulin Lispro (humaLOG) 100 Units/ml Inj SC SCH ×3 (17:22→21:26)
[2016-11-18] MEDS: Insulin Detemir 100 Units/ml Inj SC SCH (21:22)
[2016-11-19] MEDS: Insulin Lispro (humaLOG) 100 Units/ml Inj SC SCH ×7 (06:46→21:31)
[2016-11-19 08:20] LABS: BASO # 0.1 K/uL (0.0-0.2); BASO % 0.6 % (0.0-2.0); EOS # 0.5 K/uL (0.0-0.7); HEMATOCRIT 36.3 % (34.0-47.0); LYMPH % 18.6 % (20.0-40.0); MEAN CELL VOLUME 80.5 fl (81.0-99.0); MEAN CORPUSCULAR HEMOGLOBIN 25.8 pg (27.0-31.0); MEAN PLATELET VOLUME 7.5 fl (7.2-11.7); MONO # 1.4 K/uL (0.0-0.8); MONO % 8.7 % (0.0-10.0); NEUT # 11.2 K/uL (1.8-7.0); NEUT % 69.1 % (50.0-75.0); RED CELL DISTRIBUTION WIDTH 14.8 % (11.5-14.5); WHITE BLOOD COUNT 16.2 K/uL (4.8-10.8)
--- NOTE | 2016-11-19 09:41 | CP.PCM.PN ---
Subjective - Date & Time of Evaluation Date of Evaluation: 11/19/16 Time of Evaluation: 09:30 - Subjective Subjective: 76 y/o F seen at bedside in not acute distress, pleasant. Denies CP, SOB, palpitations, calf pain. Patient denies L/wrist pain at this time and is mild when it comes. Patient staying in TCU to complete rehabilitation therapy. Afebrile Objective - Vital Signs/Intake and Output Vital Signs (last 24 hours): Temp Pulse Resp BP Pulse Ox 98.1 F 66 20 134/74 98 11/19/16 08:21 11/19/16 08:21 11/19/16 08:21 11/19/16 08:21 11/19/16 08:21 - Medications Medications: Current Medications Acetaminophen (Tylenol 325mg Tab) 650 mg PO Q6 PRN PRN Reason: Fever >100.4 F Atorvastatin Calcium (Lipitor) 40 mg PO HS [facility] Last Admin: 11/18/16 21:14 Dose: 40 mg Cholecalciferol (Vitamin D) 1,000 iu PO DAILY [facility] Last Admin: 11/18/16 08:36 Dose: 1,000 iu Dextrose (Dextrose 50% Inj) 0 ml IV STAT PRN; Protocol PRN Reason: Hyglycemia Protocol Dextrose (Glutose 15) 0 gm PO ONCE PRN; Protocol PRN Reason: Hypoglycemia Protocol Fluconazole (Diflucan) 100 mg PO DAILY [facility] Last Admin: 11/18/16 17:25 Dose: 100 mg Glipizide (Glucotrol) 10 mg PO BIDAC [facility] Last Admin: 11/18/16 17:25 Dose: 10 mg Glucagon (Glucagen Diagnostic Kit) 0 mg IM STAT PRN; Protocol PRN Reason: Hypoglycemia Protocol Heparin Sodium (Porcine) (Heparin) 5,000 units SC Q12 [facility] PRN Reason: Protocol Last Admin: 11/18/16 21:19 Dose: 5,000 units Insulin Detemir (Levemir) 12 units SC HS [facility] Last Admin: 11/18/16 21:22 Dose: 12 units Insulin Human Lispro (Humalog) 4 units SC AC [facility] Last Admin: 11/18/16 17:24 Dose: 4 unit Insulin Human Lispro (Humalog) 0 units SC ACHS [facility] PRN Reason: Protocol Last Admin: 11/19/16 06:46 Dose: Not Given Metronidazole (Flagyl) 500 mg PO Q8 [facility] Last Admin: 11/19/16 00:31 Dose: 500 mg Nystatin (Nystop Topical Powder) 1 applic TOP TID [facility] Last Admin: 11/18/16 18:51 Dose: 1 applic Ondansetron HCl (Zofran Inj) 4 mg IVP Q4 PRN PRN Reason: Nausea/Vomiting Paroxetine HCl (Paxil) 20 mg PO DAILY [facility] Last Admin: 11/18/16 08:36 Dose: 20 mg Phenol/Menthol (Phenaseptic 1.4% Throat [place]) 1 spry MT Q2 PRN PRN Reason: Sore Throat Repaglinide (Prandin) 2 mg PO TIDWM [facility] Last Admin: 11/18/16 17:25 Dose: 2 mg Saccharomyces Boulardii (Florastor) 250 mg PO BID [facility] Last Admin: 11/18/16 17:25 Dose: 250 mg Sevelamer HCl (Renagel) 800 mg PO TID [facility] Last Admin: 11/18/16 17:25 Dose: 800 mg Sodium Bicarbonate (Sodium Bicarbonate Tab) 650 mg PO Q12 [facility] Last Admin: 11/18/16 21:14 Dose: 650 mg Valsartan (Diovan) 80 mg PO DAILY [facility] Last Admin: 11/18/16 08:35 Dose: 80 mg Vancomycin HCl (Vancocin (Oral/Rectal Use)) 125 mg PO QID [facility] Last Admin: 11/18/16 21:18 Dose: 125 mg - Labs Labs: 11/19/16 06:00 11/17/16 05:45 - Constitutional Appears: Non-toxic, No Acute Distress - Head Exam Head Exam: NORMAL INSPECTION - Eye Exam Eye Exam: PERRL - Respiratory Exam Respiratory Exam: Clear to Ausculation Bilateral, NORMAL BREATHING PATTERN - Cardiovascular Exam Cardiovascular Exam: REGULAR RHYTHM, +S1, +S2. absent: Gallop - GI/Abdominal Exam GI & Abdominal Exam: Soft, Normal Bowel Sounds. absent: Distended, Tenderness, Rebound - Neurological Exam Neurological Exam: Alert, Awake, Oriented x3 - Psychiatric Exam Psychiatric exam: Normal Affect, Normal Mood Assessment and Plan - Assessment and Plan (Free Text) Assessment: 75 y/o woman w/ PMHx of HLD, COPD, Anxiety/Depression, CKD, HTN, DM II admitted to TCU for PT/OT treatment s/p L/distal radius ORIF, cdiff positive. Left distal radial fracture(stable) - S/P ORIF L/distal radius on 11/07 - Percocet 2 tab PO Q4 prn - Patient receiving PT services until MondayNovember 22 as per PT recommendation - PT recommends [facility] after TCU but patient declines and wants to go home after living hosp Elevate Leukocytosis improved -ID consult appreciated, Krystin Singer -most likely from cdiff -afebrile -lactic acid 0.5 -BCx no growth C.Diff Colitis -diarrhea resolved -GI consulted -ID Consulted -c diff positive(toxin and antigen) -c/w flagyl and PO Vanco(to complete 10 days as per ID recs) Bacteriuria with B/L hydronephrosis -Initial UCx: Klebsiella Pneu: Patient completed IV Meropenen course -u/s bladder: severe b/l hydronephrosis, pre void 131.3 post void 95.9. bladder wall appears irregular posteriorly contains evidence of debris. dilated distal right ureter. incidental note gallbladder sludge -Repeat UCx: Yeast infection -Switch to PO Fluconazole 100mg daily(to complete 10 days per ID recs) -Urology consult Dr Valentine: No interventions at this time due to current infection. Patient is gonna need F/U as outpatient CKD (Stage 4) - Nephro consult appreciated: Dr Houston, - GFR 20, bun/cr stable -u/s renal: severe b/l hydronephrosis, post void 95.9. bladder wall appears irregular posteriorly contains evidence of debris. dilated distal right ureter. -c/w current management DM II uncontrolled - non-compliant with home insulin therapy - accuchecks/ACHS - Managed by damage cutter(Dr Rai) - Cont Prandin and Glucotrol - HgbA1c 08/31/2016: 13.6 - heart healthy, moderate consistent carbohydrate diet - Patient will need Home health nursing services for DM teaching management after DC from hosp if DC on insulin therapy HTN - Cardiology consult appreciated, Dr Griffiths - Controlled, stable - continue with home meds: Valsartan 80 mg PO daily HLD - continue with atorvastatin 40 mg PO daily Anxiety/Depression - stable - continue with home meds: Paroxetine 20 mg PO daily - Monitor DVT ppx - SCDs - heparin 5,000 sc q12
[2016-11-19] MEDS: Saccharomyces Boulardi 250 mg Cap PO SCH ×2 (09:52→16:50)
[2016-11-19] MEDS: Vancomycin 500 mg (Oral/Rectal USE) PO SCH ×4 (09:56→21:39)
--- NOTE | 2016-11-19 12:37 | CP.PCM.PN ---
Subjective - Date & Time of Evaluation Date of Evaluation: 11/19/16 Time of Evaluation: 12:00 - Subjective Subjective: NO CHEST PAIN OR SOB Objective - Vital Signs/Intake and Output Vital Signs (last 24 hours): Temp Pulse Resp BP Pulse Ox 98.1 F 66 20 134/74 98 11/19/16 08:21 11/19/16 08:21 11/19/16 08:21 11/19/16 08:21 11/19/16 08:21 - Medications Medications: Current Medications Acetaminophen (Tylenol 325mg Tab) 650 mg PO Q6 PRN PRN Reason: Fever >100.4 F Atorvastatin Calcium (Lipitor) 40 mg PO HS [facility] Last Admin: 11/18/16 21:14 Dose: 40 mg Cholecalciferol (Vitamin D) 1,000 iu PO DAILY [facility] Last Admin: 11/19/16 09:56 Dose: 1,000 iu Dextrose (Dextrose 50% Inj) 0 ml IV STAT PRN; Protocol PRN Reason: Hyglycemia Protocol Dextrose (Glutose 15) 0 gm PO ONCE PRN; Protocol PRN Reason: Hypoglycemia Protocol Fluconazole (Diflucan) 100 mg PO DAILY [facility] Last Admin: 11/19/16 09:52 Dose: 100 mg Glipizide (Glucotrol) 10 mg PO BIDAC [facility] Last Admin: 11/19/16 09:51 Dose: 10 mg Glucagon (Glucagen Diagnostic Kit) 0 mg IM STAT PRN; Protocol PRN Reason: Hypoglycemia Protocol Heparin Sodium (Porcine) (Heparin) 5,000 units SC Q12 [facility] PRN Reason: Protocol Last Admin: 11/19/16 09:54 Dose: 5,000 units Insulin Detemir (Levemir) 12 units SC HS [facility] Last Admin: 11/18/16 21:22 Dose: 12 units Insulin Human Lispro (Humalog) 4 units SC AC [facility] Last Admin: 11/19/16 11:30 Dose: 4 unit Insulin Human Lispro (Humalog) 0 units SC ACHS [facility] PRN Reason: Protocol Last Admin: 11/19/16 12:32 Dose: 3 unit Metronidazole (Flagyl) 500 mg PO Q8 [facility] Last Admin: 11/19/16 09:51 Dose: 500 mg Nystatin (Nystop Topical Powder) 1 applic TOP TID [facility] Last Admin: 11/19/16 12:29 Dose: 1 applic Ondansetron HCl (Zofran Inj) 4 mg IVP Q4 PRN PRN Reason: Nausea/Vomiting Paroxetine HCl (Paxil) 20 mg PO DAILY [facility] Last Admin: 11/19/16 09:51 Dose: 20 mg Phenol/Menthol (Phenaseptic 1.4% Throat [place]) 1 spry MT Q2 PRN PRN Reason: Sore Throat Repaglinide (Prandin) 2 mg PO TIDWM [facility] Last Admin: 11/19/16 12:00 Dose: 2 mg Saccharomyces Boulardii (Florastor) 250 mg PO BID [facility] Last Admin: 11/19/16 09:52 Dose: 250 mg Sevelamer HCl (Renagel) 800 mg PO TID [facility] Last Admin: 11/19/16 12:31 Dose: 800 mg Sodium Bicarbonate (Sodium Bicarbonate Tab) 650 mg PO Q12 [facility] Last Admin: 11/19/16 09:55 Dose: 650 mg Valsartan (Diovan) 80 mg PO DAILY [facility] Last Admin: 11/19/16 09:52 Dose: 80 mg Vancomycin HCl (Vancocin (Oral/Rectal Use)) 125 mg PO QID [facility] Last Admin: 11/19/16 12:33 Dose: 125 mg - Labs Labs: 11/19/16 06:00 11/17/16 05:45 - Respiratory Exam Respiratory Exam: Clear to Ausculation Bilateral - Cardiovascular Exam Cardiovascular Exam: REGULAR RHYTHM, +S1, +S2 Assessment and Plan - Assessment and Plan (Free Text) Assessment: HYPERTENSION HYPERLIPIDEMIA ORIF LEFT RADIUS C DIFFICILE COLITIS UTI Plan: CONTINUE ATORVASTATIN, VALSARTAN, ANTIBIOTICS CONTINUE SUBACUTE REHAB
--- NOTE | 2016-11-19 18:27 | CP.PCM.PN ---
Subjective - Date & Time of Evaluation Date of Evaluation: 11/19/16 Time of Evaluation: 18:25 - Subjective Subjective: creat 1.9 egfr 31 SEEN ON RENAL F/U POLYURIA AND URGENCY RENAL FUNCTION REMAINS STABLE ALL PREVIOUS EMR ReVIEWEd Objective - Vital Signs/Intake and Output Vital Signs (last 24 hours): Temp Pulse Resp BP Pulse Ox 97.7 F 72 20 120/73 98 11/19/16 16:24 11/19/16 16:24 11/19/16 16:24 11/19/16 16:24 11/19/16 16:24 - Medications Medications: Current Medications Acetaminophen (Tylenol 325mg Tab) 650 mg PO Q6 PRN PRN Reason: Fever >100.4 F Atorvastatin Calcium (Lipitor) 40 mg PO HS [facility] Last Admin: 11/18/16 21:14 Dose: 40 mg Cholecalciferol (Vitamin D) 1,000 iu PO DAILY [facility] Last Admin: 11/19/16 09:56 Dose: 1,000 iu Dextrose (Dextrose 50% Inj) 0 ml IV STAT PRN; Protocol PRN Reason: Hyglycemia Protocol Dextrose (Glutose 15) 0 gm PO ONCE PRN; Protocol PRN Reason: Hypoglycemia Protocol Fluconazole (Diflucan) 100 mg PO DAILY [facility] Last Admin: 11/19/16 09:52 Dose: 100 mg Glipizide (Glucotrol) 10 mg PO BIDAC [facility] Last Admin: 11/19/16 16:51 Dose: 10 mg Glucagon (Glucagen Diagnostic Kit) 0 mg IM STAT PRN; Protocol PRN Reason: Hypoglycemia Protocol Heparin Sodium (Porcine) (Heparin) 5,000 units SC Q12 [facility] PRN Reason: Protocol Last Admin: 11/19/16 09:54 Dose: 5,000 units Insulin Detemir (Levemir) 14 units SC HS [facility] Insulin Human Lispro (Humalog) 0 units SC ACHS [facility] PRN Reason: Protocol Last Admin: 11/19/16 16:53 Dose: Not Given Insulin Human Lispro (Humalog) 6 units SC AC [facility] Last Admin: 11/19/16 16:52 Dose: 6 units Metronidazole (Flagyl) 500 mg PO Q8 [facility] Last Admin: 11/19/16 16:50 Dose: 500 mg Nystatin (Nystop Topical Powder) 1 applic TOP TID [facility] Last Admin: 11/19/16 16:51 Dose: 1 applic Ondansetron HCl (Zofran Inj) 4 mg IVP Q4 PRN PRN Reason: Nausea/Vomiting Paroxetine HCl (Paxil) 20 mg PO DAILY [facility] Last Admin: 11/19/16 09:51 Dose: 20 mg Phenol/Menthol (Phenaseptic 1.4% Throat [place]) 1 spry MT Q2 PRN PRN Reason: Sore Throat Repaglinide (Prandin) 2 mg PO TIDWM [facility] Last Admin: 11/19/16 16:50 Dose: 2 mg Saccharomyces Boulardii (Florastor) 250 mg PO BID [facility] Last Admin: 11/19/16 16:50 Dose: 250 mg Sevelamer HCl (Renagel) 800 mg PO TID [facility] Last Admin: 11/19/16 16:51 Dose: 800 mg Sodium Bicarbonate (Sodium Bicarbonate Tab) 650 mg PO Q12 [facility] Last Admin: 11/19/16 09:55 Dose: 650 mg Valsartan (Diovan) 80 mg PO DAILY [facility] Last Admin: 11/19/16 09:52 Dose: 80 mg Vancomycin HCl (Vancocin (Oral/Rectal Use)) 125 mg PO QID [facility] Last Admin: 11/19/16 16:56 Dose: 125 mg - Labs Labs: 11/19/16 06:00 11/17/16 05:45 - Constitutional Appears: Non-toxic - Head Exam Head Exam: NORMAL INSPECTION - Eye Exam Eye Exam: Normal appearance - ENT Exam ENT Exam: Mucous Membranes Moist - Respiratory Exam Respiratory Exam: NORMAL BREATHING PATTERN - Cardiovascular Exam Cardiovascular Exam: REGULAR RHYTHM - Neurological Exam Neurological Exam: Alert, Awake - Psychiatric Exam Psychiatric exam: Normal Affect, Normal Mood - Skin Skin Exam: Dry, Warm
--- NOTE | 2016-11-19 19:11 | PN ---
DATE: 11/19/2016 ROOM: 713, [facility]. This is a 76-year-old female with recent uncontrolled type 2 insulin-requiring diabetes, now being fo llowed closely for metabolic management. Her glycemic fluctuations have persisted with episodic glyc emic values over 300 as noted thereof. The latest glucose values today have ranged from 202-63 and 3 96 mg/dL. It was 146-287 last night as noted. The latest chemistries showed a BUN of 19, sodium 142 , potassium 4.6, chloride 113, CO2 is 18, glucose is 106 and creatinine is 1.9. So at this time, xenia l modify once again her basal and bolus insulin regimen and increase the Levemir to 14 units subQ at bedtime daily to start tonight. Will also increase the Humalog to 6 units subQ t.i.d. before meals t o start at dinnertime today as ordered. Will continue the low-dose correction scale using Humalog in sulin as ordered. Will obtain serial chemistries and supplement accordingly as needed. Will follow. Annelise Rai MD cc: [id number] TT: 11/19/2016 19:11:04 Confirmation # [id number] Dictation # [id number]
[2016-11-19] MEDS ORDERED: Insulin Detemir 100 Units/ml Inj SC SCH (22:00)
[2016-11-20] MEDS: Insulin Lispro (humaLOG) 100 Units/ml Inj SC SCH ×7 (07:02→21:28)
[2016-11-20 09:12] LABS: BASO # 0.1 K/uL (0.0-0.2); BASO % 0.8 % (0.0-2.0); EOS # 0.5 K/uL (0.0-0.7); EOS % 3.7 % (0.0-4.0); HEMATOCRIT 37.9 % (34.0-47.0); LYMPH # 3.1 K/uL (1.0-4.3); LYMPH % 22.7 % (20.0-40.0); MEAN CELL VOLUME 81.7 fl (81.0-99.0); MEAN CORPUSCULAR HEMOGLOBIN 25.7 pg (27.0-31.0); MEAN CORPUSCULAR HGB CONC 31.5 g/dL (33.0-37.0); MEAN PLATELET VOLUME 7.7 fl (7.2-11.7); MONO # 1.2 K/uL (0.0-0.8); MONO % 8.8 % (0.0-10.0); NEUT # 8.8 K/uL (1.8-7.0); WHITE BLOOD COUNT 13.7 K/uL (4.8-10.8)
[2016-11-20 09:21] LABS: ALB/GLOB RATIO 0.9 (1.0-2.1); BILIRUBIN,TOTAL 0.2 mg/dl (0.2-1.3); CALCIUM 9.2 mg/dL (8.4-10.2); POTASSIUM 4.9 MMOL/L (3.6-5.0); TOTAL PROTEIN 7.3 G/DL (6.3-8.2)
[2016-11-20] MEDS: Vancomycin 500 mg (Oral/Rectal USE) PO SCH ×4 (09:41→21:19)
--- NOTE | 2016-11-20 10:05 | CP.PCM.PN ---
Subjective - Date & Time of Evaluation Date of Evaluation: 11/20/16 Time of Evaluation: 10:00 - Subjective Subjective: Follow up for C. diff and physical therapy. Overnight event: afebrile Pt sitting up in bed, NAD, smiling. Pt reports doing well. Tolerating po diet and phyiscial therapy well. Patient reports lef wrist pain at this time is mild and improving. Denies difficulty voiding or bm. Denies CP, SOB, palpitations, calf pain. Objective - Vital Signs/Intake and Output Vital Signs (last 24 hours): Temp Pulse Resp BP Pulse Ox 97.7 F 66 20 121/70 99 11/20/16 08:18 11/20/16 08:18 11/20/16 08:18 11/20/16 08:18 11/20/16 08:18 - Medications Medications: Current Medications Acetaminophen (Tylenol 325mg Tab) 650 mg PO Q6 PRN PRN Reason: Fever >100.4 F Atorvastatin Calcium (Lipitor) 40 mg PO HS [facility] Last Admin: 11/19/16 21:26 Dose: 40 mg Cholecalciferol (Vitamin D) 1,000 iu PO DAILY [facility] Last Admin: 11/20/16 09:37 Dose: 1,000 iu Dextrose (Dextrose 50% Inj) 0 ml IV STAT PRN; Protocol PRN Reason: Hyglycemia Protocol Dextrose (Glutose 15) 0 gm PO ONCE PRN; Protocol PRN Reason: Hypoglycemia Protocol Fluconazole (Diflucan) 100 mg PO DAILY [facility] Last Admin: 11/20/16 09:38 Dose: 100 mg Glipizide (Glucotrol) 10 mg PO BIDAC [facility] Last Admin: 11/20/16 09:38 Dose: 10 mg Glucagon (Glucagen Diagnostic Kit) 0 mg IM STAT PRN; Protocol PRN Reason: Hypoglycemia Protocol Heparin Sodium (Porcine) (Heparin) 5,000 units SC Q12 [facility] PRN Reason: Protocol Last Admin: 11/19/16 21:26 Dose: 5,000 units Insulin Detemir (Levemir) 14 units SC HS [facility] Last Admin: 11/19/16 21:41 Dose: 14 units Insulin Human Lispro (Humalog) 0 units SC ACHS [facility] PRN Reason: Protocol Last Admin: 11/20/16 07:02 Dose: Not Given Insulin Human Lispro (Humalog) 6 units SC AC [facility] Last Admin: 11/20/16 09:46 Dose: 6 units Metronidazole (Flagyl) 500 mg PO Q8 [facility] Last Admin: 11/20/16 00:21 Dose: 500 mg Nystatin (Nystop Topical Powder) 1 applic TOP TID [facility] Last Admin: 11/20/16 09:45 Dose: 1 applic Ondansetron HCl (Zofran Inj) 4 mg IVP Q4 PRN PRN Reason: Nausea/Vomiting Paroxetine HCl (Paxil) 20 mg PO DAILY [facility] Last Admin: 11/20/16 09:38 Dose: 20 mg Phenol/Menthol (Phenaseptic 1.4% Throat [place]) 1 spry MT Q2 PRN PRN Reason: Sore Throat Repaglinide (Prandin) 2 mg PO TIDWM [facility] Last Admin: 11/20/16 08:00 Dose: 2 mg Saccharomyces Boulardii (Florastor) 250 mg PO BID [facility] Last Admin: 11/19/16 16:50 Dose: 250 mg Sevelamer HCl (Renagel) 800 mg PO TID [facility] Last Admin: 11/20/16 09:37 Dose: 800 mg Sodium Bicarbonate (Sodium Bicarbonate Tab) 650 mg PO Q12 [facility] Last Admin: 11/20/16 09:37 Dose: 650 mg Valsartan (Diovan) 80 mg PO DAILY [facility] Last Admin: 11/19/16 09:52 Dose: 80 mg Vancomycin HCl (Vancocin (Oral/Rectal Use)) 125 mg PO QID [facility] Last Admin: 11/20/16 09:41 Dose: 125 mg - Labs Labs: 11/20/16 09:00 11/20/16 09:00 - Additional Findings Additional findings: -Constitutional Appears: Non-toxic, No Acute Distress - Head Exam Head Exam: NORMAL INSPECTION - Eye Exam Eye Exam: PERRL - Respiratory Exam Respiratory Exam: Clear to Ausculation Bilateral, NORMAL BREATHING PATTERN - Cardiovascular Exam Cardiovascular Exam: REGULAR RHYTHM, +S1, +S2. absent: Gallop - GI/Abdominal Exam GI & Abdominal Exam: Soft, Normal Bowel Sounds. absent: Distended, Tenderness, Rebound - Extremity: left arm dressing : dry clean intact. +capillary refill <20sec of left hand, warm to touch, intact movement and sensation. -Neurological Exam Neurological Exam: Alert, Awake, Oriented x3 - Psychiatric Exam Psychiatric exam: Normal Affect, Normal Mood Assessment and Plan - Assessment and Plan (Free Text) Assessment: 75 y/o woman w/ PMHx of HLD, COPD, Anxiety/Depression, CKD, HTN, DM II admitted to TCU for PT/OT treatment s/p L/distal radius ORIF, cdiff positive. Left distal radial fracture(stable) - S/P ORIF L/distal radius on 11/07 - Percocet 2 tab PO Q4 prn - Patient receiving PT services until MondayNovember 22 as per PT recommendation - PT recommends [facility] after TCU but patient declines and wants to go home after living hosp Elevate Leukocytosis improved -ID consult appreciated, Krystin Singer -most likely from cdiff -afebrile -lactic acid 0.5 -BCx no growth C.Diff Colitis -diarrhea resolved -GI consulted -ID Consulted -c diff positive(toxin and antigen) -c/w flagyl and PO Vanco(to complete 10 days as per ID recs) Bacteriuria with B/L hydronephrosis -Initial UCx: Klebsiella Pneu: Patient completed IV Meropenen course -u/s bladder: severe b/l hydronephrosis, pre void 131.3 post void 95.9. bladder wall appears irregular posteriorly contains evidence of debris. dilated distal right ureter. incidental note gallbladder sludge -Repeat UCx: Yeast infection -Switch to PO Fluconazole 100mg daily(to complete 10 days per ID recs) -Urology consult Dr Valentine: No interventions at this time due to current infection. Patient is gonna need F/U as outpatient CKD (Stage 4) - Nephro consult appreciated: Dr Houston, - GFR 20, bun/cr stable -u/s renal: severe b/l hydronephrosis, post void 95.9. bladder wall appears irregular posteriorly contains evidence of debris. dilated distal right ureter. -c/w current management DM II uncontrolled - non-compliant with home insulin therapy - accuchecks/ACHS - Managed by hot dip plater(Dr Rai) - Cont Prandin and Glucotrol - HgbA1c 08/31/2016: 13.6 - heart healthy, moderate consistent carbohydrate diet - Patient will need Home health nursing services for DM teaching management after DC from hosp if DC on insulin therapy HTN - Cardiology consult appreciated, Dr Griffiths - Controlled, stable - continue with home meds: Valsartan 80 mg PO daily HLD - continue with atorvastatin 40 mg PO daily Anxiety/Depression - stable - continue with home meds: Paroxetine 20 mg PO daily - Monitor DVT ppx - SCDs - heparin 5,000 sc q12
[2016-11-20] MEDS: Saccharomyces Boulardi 250 mg Cap PO SCH ×2 (12:09→16:40)
--- NOTE | 2016-11-20 12:48 | PN ---
DATE: 11/20/2016 ROOM: [facility]. This is a 76-year-old female with recent uncontrolled type 2 insulin-requiring diabetes, now being fo llowed closely for metabolic management. She continues to marked hyperglycemic accelerations with glucose levels ranging from 215-371 mg/dL. It was 202-263 last night as noted. The latest chemistries include a BUN of 34, sodium 138, potassiu m 4.9, chloride 106, CO2 is 19, glucose is 316 and creatinine 2.3. So at this time, we will modify once again her basal and bolus insulin regimen to a much higher dose increment with Humalog to be given as 10 units subQ t.i.d. before meals as ordered. We will titrate incrementally as indicated to optimize metabolic control. We will also increase the basal insulin wi th Levemir to be given as 20 units subQ at bedtime daily to start tonight. We will continue the low- dose correction scale using Humalog insulin as given. We will obtain serial chemistries and suppleme nt accordingly as needed. We will follow. Annelise Rai MD cc: [id number] TT: 11/20/2016 12:48:00 Confirmation # [id number] Dictation # [id number] en
[2016-11-20] MEDS: Insulin Detemir 100 Units/ml Inj SC SCH (21:25)
[2016-11-21] MEDS: Insulin Lispro (humaLOG) 100 Units/ml Inj SC SCH ×7 (07:01→21:22)
[2016-11-21] MEDS: Saccharomyces Boulardi 250 mg Cap PO SCH ×2 (09:59→17:08)
[2016-11-21] MEDS: Vancomycin 500 mg (Oral/Rectal USE) PO SCH ×4 (10:08→21:28)
--- NOTE | 2016-11-21 10:33 | CP.PCM.PN ---
<Aquiles Kern - Last Filed: 11/21/16 10:43> Subjective - Date & Time of Evaluation Date of Evaluation: 11/21/16 Time of Evaluation: 07:00 - Subjective Subjective: 76 y/o F admitted for L/wrist Fx S/P ORIF on 11/07/16, seen at bedside in not acute distress. PAtient denies SOB, CP, calf pain or diarrhea. She is not needing pain meds for L/wrist pain and is in good mood today. States polyuria has improved and continue denying dysuria. Patient anticipated DC tomorrow. Spoke today with Dr Carrizales(Orthopedic Surgeon) and he will come to reevaluate patient today. Objective - Vital Signs/Intake and Output Vital Signs (last 24 hours): Temp Pulse Resp BP Pulse Ox 97.7 F 72 20 118/68 98 11/21/16 08:04 11/21/16 08:04 11/21/16 08:04 11/21/16 08:04 11/21/16 08:04 - Medications Medications: Current Medications Acetaminophen (Tylenol 325mg Tab) 650 mg PO Q6 PRN PRN Reason: Fever >100.4 F Atorvastatin Calcium (Lipitor) 40 mg PO HS [facility] Last Admin: 11/20/16 21:17 Dose: 40 mg Cholecalciferol (Vitamin D) 1,000 iu PO DAILY [facility] Last Admin: 11/21/16 10:11 Dose: 1,000 iu Dextrose (Dextrose 50% Inj) 0 ml IV STAT PRN; Protocol PRN Reason: Hyglycemia Protocol Dextrose (Glutose 15) 0 gm PO ONCE PRN; Protocol PRN Reason: Hypoglycemia Protocol Fluconazole (Diflucan) 100 mg PO DAILY [facility] Last Admin: 11/21/16 09:56 Dose: 100 mg Glipizide (Glucotrol) 10 mg PO BIDAC [facility] Last Admin: 11/21/16 07:01 Dose: 10 mg Glucagon (Glucagen Diagnostic Kit) 0 mg IM STAT PRN; Protocol PRN Reason: Hypoglycemia Protocol Heparin Sodium (Porcine) (Heparin) 5,000 units SC Q12 [facility] PRN Reason: Protocol Last Admin: 11/21/16 09:59 Dose: 5,000 units Insulin Detemir (Levemir) 20 units SC HS [facility] Last Admin: 11/20/16 21:25 Dose: 20 units Insulin Human Lispro (Humalog) 0 units SC ACHS [facility] PRN Reason: Protocol Last Admin: 11/21/16 07:01 Dose: Not Given Insulin Human Lispro (Humalog) 10 units SC AC [facility] Last Admin: 11/21/16 08:14 Dose: 10 unit Metronidazole (Flagyl) 500 mg PO Q8 [facility] Last Admin: 11/21/16 09:58 Dose: 500 mg Nystatin (Nystop Topical Powder) 1 applic TOP TID [facility] Last Admin: 11/21/16 10:03 Dose: 1 applic Ondansetron HCl (Zofran Inj) 4 mg IVP Q4 PRN PRN Reason: Nausea/Vomiting Paroxetine HCl (Paxil) 20 mg PO DAILY [facility] Last Admin: 11/21/16 10:03 Dose: 20 mg Phenol/Menthol (Phenaseptic 1.4% Throat [place]) 1 spry MT Q2 PRN PRN Reason: Sore Throat Repaglinide (Prandin) 2 mg PO TIDWM [facility] Last Admin: 11/21/16 10:04 Dose: 2 mg Saccharomyces Boulardii (Florastor) 250 mg PO BID [facility] Last Admin: 11/21/16 09:59 Dose: 250 mg Sevelamer HCl (Renagel) 800 mg PO TID [facility] Last Admin: 11/21/16 10:04 Dose: 800 mg Sodium Bicarbonate (Sodium Bicarbonate Tab) 650 mg PO Q12 [facility] Last Admin: 11/21/16 10:05 Dose: 650 mg Valsartan (Diovan) 80 mg PO DAILY [facility] Last Admin: 11/21/16 09:58 Dose: 80 mg Vancomycin HCl (Vancocin (Oral/Rectal Use)) 125 mg PO QID [facility] Last Admin: 11/21/16 10:08 Dose: 125 mg - Labs Labs: 11/20/16 09:00 11/20/16 09:00 - Head Exam Head Exam: NORMAL INSPECTION - Eye Exam Eye Exam: PERRL - ENT Exam ENT Exam: Mucous Membranes Moist - Cardiovascular Exam Cardiovascular Exam: REGULAR RHYTHM, +S1, +S2 - GI/Abdominal Exam GI & Abdominal Exam: Soft, Normal Bowel Sounds. absent: Distended, Tenderness - Extremities Exam Extremities Exam: absent: Normal Inspection Additional comments: L/wirst covered with cast and dressing. No signs of neurovascular compromise in the L/UE - Neurological Exam Neurological Exam: Alert, Awake, Oriented x3 - Psychiatric Exam Psychiatric exam: Normal Affect, Normal Mood - Skin Skin Exam: Normal Color, Warm Assessment and Plan - Assessment and Plan (Free Text) Assessment: 75 y/o woman w/ PMHx of HLD, COPD, Anxiety/Depression, CKD, HTN, DM II admitted to TCU for PT/OT treatment s/p L/distal radius ORIF, cdiff positive. Left distal radial fracture(stable) - S/P ORIF L/distal radius on 11/07 - Percocet 2 tab PO Q4 prn - Patient receiving PT services until MondayNovember 22 as per PT recommendation - PT recommends [facility] after TCU but patient declines and wants to go home after living hosp - Spoke with Dr Carrizales(Ortho Sx) and he will evaluated patient before DC [facility] Leukocytosis improved -ID consult appreciated, Krystin Singer -most likely from cdiff -afebrile -lactic acid 0.5 -BCx no growth C.Diff Colitis -diarrhea resolved -GI consulted -ID Consulted -c diff positive(toxin and antigen) -c/w flagyl(day 10) and PO Vanco(day 8)(to complete 10 days as per ID recs) Bacteriuria with B/L hydronephrosis -Initial UCx: Klebsiella Pneu: Patient completed IV Meropenen course -u/s bladder: severe b/l hydronephrosis, pre void 131.3 post void 95.9. bladder wall appears irregular posteriorly contains evidence of debris. dilated distal right ureter. incidental note gallbladder sludge -Repeat UCx: Yeast infection -Cont PO Fluconazole 100mg daily(to complete 10 days per ID recs) day 6 -Urology consult Dr Valentine: No interventions at this time due to current infection. Patient is gonna need F/U as outpatient CKD (Stage 4) - Nephro consult appreciated: Dr Houston, - GFR 20, bun/cr stable -u/s renal: severe b/l hydronephrosis, post void 95.9. bladder wall appears irregular posteriorly contains evidence of debris. dilated distal right ureter. -c/w current management DM II uncontrolled - non-compliant with home insulin therapy - accuchecks/ACHS - Managed by desktop publisher(Dr Rai) - Cont Prandin and Glucotrol - HgbA1c 08/31/2016: 13.6 - heart healthy, moderate consistent carbohydrate diet - Patient will need Home health nursing services for DM teaching management after DC from hosp if DC on insulin therapy HTN - Cardiology consult appreciated, Dr Griffiths - Controlled, stable - continue with home meds: Valsartan 80 mg PO daily HLD - continue with atorvastatin 40 mg PO daily Anxiety/Depression - stable - continue with home meds: Paroxetine 20 mg PO daily - Monitor DVT ppx - SCDs - heparin 5,000 sc q12 <Min Woody - Last Filed: 11/22/16 06:44> Objective - Vital Signs/Intake and Output Vital Signs (last 24 hours): Temp Pulse Resp BP Pulse Ox 98.1 F 70 20 115/68 96 11/21/16 20:29 11/21/16 20:29 11/21/16 20:29 11/21/16 20:29 11/21/16 20:29 - Medications Medications: Current Medications Acetaminophen (Tylenol 325mg Tab) 650 mg PO Q6 PRN PRN Reason: Fever >100.4 F Atorvastatin Calcium (Lipitor) 40 mg PO HS [facility] Last Admin: 11/21/16 21:27 Dose: 40 mg Cholecalciferol (Vitamin D) 1,000 iu PO DAILY [facility] Last Admin: 11/21/16 10:11 Dose: 1,000 iu Dextrose (Dextrose 50% Inj) 0 ml IV STAT PRN; Protocol PRN Reason: Hyglycemia Protocol Dextrose (Glutose 15) 0 gm PO ONCE PRN; Protocol PRN Reason: Hypoglycemia Protocol Fluconazole (Diflucan) 100 mg PO DAILY [facility] Last Admin: 11/21/16 09:56 Dose: 100 mg Glipizide (Glucotrol) 10 mg PO BIDAC [facility] Last Admin: 11/21/16 17:08 Dose: 10 mg Glucagon (Glucagen Diagnostic Kit) 0 mg IM STAT PRN; Protocol PRN Reason: Hypoglycemia Protocol Heparin Sodium (Porcine) (Heparin) 5,000 units SC Q12 [facility] PRN Reason: Protocol Last Admin: 11/21/16 21:25 Dose: 5,000 units Insulin Detemir (Levemir) 20 units SC HS [facility] Last Admin: 11/21/16 21:26 Dose: 20 units Insulin Human Lispro (Humalog) 0 units SC ACHS [facility] PRN Reason: Protocol Last Admin: 11/21/16 21:22 Dose: Not Given Insulin Human Lispro (Humalog) 10 units SC AC [facility] Last Admin: 11/21/16 17:11 Dose: 10 unit Metronidazole (Flagyl) 500 mg PO Q8 [facility] Last Admin: 11/22/16 01:34 Dose: 500 mg Nystatin (Nystop Topical Powder) 1 applic TOP TID [facility] Last Admin: 11/21/16 17:13 Dose: 1 applic Ondansetron HCl (Zofran Inj) 4 mg IVP Q4 PRN PRN Reason: Nausea/Vomiting Paroxetine HCl (Paxil) 20 mg PO DAILY [facility] Last Admin: 11/21/16 10:03 Dose: 20 mg Phenol/Menthol (Phenaseptic 1.4% Throat [place]) 1 spry MT Q2 PRN PRN Reason: Sore Throat Repaglinide (Prandin) 2 mg PO TIDWM [facility] Last Admin: 11/21/16 17:13 Dose: 2 mg Saccharomyces Boulardii (Florastor) 250 mg PO BID [facility] Last Admin: 11/21/16 17:08 Dose: 250 mg Sevelamer HCl (Renagel) 800 mg PO TID [facility] Last Admin: 11/21/16 17:13 Dose: 800 mg Sodium Bicarbonate (Sodium Bicarbonate Tab) 650 mg PO Q12 [facility] Last Admin: 11/21/16 21:28 Dose: 650 mg Valsartan (Diovan) 80 mg PO DAILY [facility] Last Admin: 11/21/16 09:58 Dose: 80 mg Vancomycin HCl (Vancocin (Oral/Rectal Use)) 125 mg PO QID [facility] Last Admin: 11/21/16 21:28 Dose: 125 mg - Labs Labs: 11/20/16 09:00 11/20/16 09:00 Assessment and Plan (1) Chronic kidney disease (CKD), stage IV (severe) Status: Chronic (2) Asymptomatic bacteriuria Status: Acute (3) Distal radial fracture Status: Acute (4) Uncontrolled diabetes mellitus Status: Acute (5) Depression Status: Chronic (6) Hypertension Status: Chronic (7) Hyperlipidemia Status: Chronic (8) Hydronephrosis Status: Chronic (9) Yeast UTI Status: Acute Attending/Attestation - Attestation I have personally seen and examined this patient.: Yes I have fully participated in the care of the patient.: Yes I have reviewed all pertinent clinical information, including history, physical exam and plan: Yes
--- NOTE | 2016-11-21 14:45 | CP.PCM.PN ---
Subjective - Date & Time of Evaluation Date of Evaluation: 11/21/16 Time of Evaluation: 11:45 - Subjective Subjective: NO NEW COMPLAINTS Objective - Vital Signs/Intake and Output Vital Signs (last 24 hours): Temp Pulse Resp BP Pulse Ox 97.7 F 72 20 118/68 98 11/21/16 08:04 11/21/16 08:04 11/21/16 08:04 11/21/16 08:04 11/21/16 08:04 - Medications Medications: Current Medications Acetaminophen (Tylenol 325mg Tab) 650 mg PO Q6 PRN PRN Reason: Fever >100.4 F Atorvastatin Calcium (Lipitor) 40 mg PO HS [facility] Last Admin: 11/20/16 21:17 Dose: 40 mg Cholecalciferol (Vitamin D) 1,000 iu PO DAILY [facility] Last Admin: 11/21/16 10:11 Dose: 1,000 iu Dextrose (Dextrose 50% Inj) 0 ml IV STAT PRN; Protocol PRN Reason: Hyglycemia Protocol Dextrose (Glutose 15) 0 gm PO ONCE PRN; Protocol PRN Reason: Hypoglycemia Protocol Fluconazole (Diflucan) 100 mg PO DAILY [facility] Last Admin: 11/21/16 09:56 Dose: 100 mg Glipizide (Glucotrol) 10 mg PO BIDAC [facility] Last Admin: 11/21/16 07:01 Dose: 10 mg Glucagon (Glucagen Diagnostic Kit) 0 mg IM STAT PRN; Protocol PRN Reason: Hypoglycemia Protocol Heparin Sodium (Porcine) (Heparin) 5,000 units SC Q12 [facility] PRN Reason: Protocol Last Admin: 11/21/16 09:59 Dose: 5,000 units Insulin Detemir (Levemir) 20 units SC HS [facility] Last Admin: 11/20/16 21:25 Dose: 20 units Insulin Human Lispro (Humalog) 0 units SC ACHS [facility] PRN Reason: Protocol Last Admin: 11/21/16 11:46 Dose: 2 unit Insulin Human Lispro (Humalog) 10 units SC AC [facility] Last Admin: 11/21/16 11:51 Dose: 10 unit Metronidazole (Flagyl) 500 mg PO Q8 [facility] Last Admin: 11/21/16 09:58 Dose: 500 mg Nystatin (Nystop Topical Powder) 1 applic TOP TID [facility] Last Admin: 11/21/16 12:38 Dose: 1 applic Ondansetron HCl (Zofran Inj) 4 mg IVP Q4 PRN PRN Reason: Nausea/Vomiting Paroxetine HCl (Paxil) 20 mg PO DAILY [facility] Last Admin: 11/21/16 10:03 Dose: 20 mg Phenol/Menthol (Phenaseptic 1.4% Throat [place]) 1 spry MT Q2 PRN PRN Reason: Sore Throat Repaglinide (Prandin) 2 mg PO TIDWM [facility] Last Admin: 11/21/16 12:39 Dose: 2 mg Saccharomyces Boulardii (Florastor) 250 mg PO BID [facility] Last Admin: 11/21/16 09:59 Dose: 250 mg Sevelamer HCl (Renagel) 800 mg PO TID [facility] Last Admin: 11/21/16 12:40 Dose: 800 mg Sodium Bicarbonate (Sodium Bicarbonate Tab) 650 mg PO Q12 [facility] Last Admin: 11/21/16 10:05 Dose: 650 mg Valsartan (Diovan) 80 mg PO DAILY [facility] Last Admin: 11/21/16 09:58 Dose: 80 mg Vancomycin HCl (Vancocin (Oral/Rectal Use)) 125 mg PO QID [facility] Last Admin: 11/21/16 12:44 Dose: 125 mg - Labs Labs: 11/20/16 09:00 11/20/16 09:00 - Respiratory Exam Respiratory Exam: Clear to Ausculation Bilateral - Cardiovascular Exam Cardiovascular Exam: REGULAR RHYTHM, +S1, +S2 Assessment and Plan - Assessment and Plan (Free Text) Assessment: S/P ORIF LEFT DISTAL RADIUS FRACTURE HYPERTENSION HYPERLIPIDEMIA C. DIFFICILE UTI Plan: CONTINUE VALSARTAN, ATORVASTATIN, ANTIBIOTICS FOR PROBABLE DISCHARGE IN AM
--- NOTE | 2016-11-21 15:16 | PN ---
DATE: 11/21/2016 ROOM: [facility]. This is a 76-year-old female with recent uncontrolled type 2 insulin-requiring diabetes, currently un dergoing physical therapy for a recent left wrist fracture and underwent an open reduction and investigator internal affairs al fixation procedure as noted thereof. Her glycemic levels are still fluctuating and have ranged from 106-163 and 300 mg/dL. Her latest anum mistries include a BUN of 34, sodium 138, potassium 4.9, chloride 106, CO2 19, glucose 316 and creati nine 2.3. So at this time, we will modify once again her basal and bolus insulin regimen and increase the Humal og to 10 units subQ t.i.d. before meals to start today as ordered. We will also increase the Levemir to 20 units subQ at bedtime daily to start tonight. We will titrate incrementally as indicated to o ptimize metabolic control. We will follow. Annelise Rai MD cc: [id number] TT: 11/21/2016 15:15:07 Confirmation # [id number] Dictation # [id number] en
[2016-11-21] MEDS: Insulin Detemir 100 Units/ml Inj SC SCH (21:26)
--- NOTE | 2016-11-22 00:23 | CP.PCM.PN ---
Subjective - Date & Time of Evaluation Date of Evaluation: 11/21/16 Time of Evaluation: 15:00 - Subjective Subjective: SEEN ON RENAL F/U FEELS MUCH BETTER FROM LOWER URINARY SYMPTOMS AFTER SHE WAS TREATED WITH ANTY FUNGAL FEELS IMPROVED Objective - Vital Signs/Intake and Output Vital Signs (last 24 hours): Temp Pulse Resp BP Pulse Ox 98.1 F 70 20 115/68 96 11/21/16 20:29 11/21/16 20:29 11/21/16 20:29 11/21/16 20:29 11/21/16 20:29 - Medications Medications: Current Medications Acetaminophen (Tylenol 325mg Tab) 650 mg PO Q6 PRN PRN Reason: Fever >100.4 F Atorvastatin Calcium (Lipitor) 40 mg PO HS [facility] Last Admin: 11/21/16 21:27 Dose: 40 mg Cholecalciferol (Vitamin D) 1,000 iu PO DAILY [facility] Last Admin: 11/21/16 10:11 Dose: 1,000 iu Dextrose (Dextrose 50% Inj) 0 ml IV STAT PRN; Protocol PRN Reason: Hyglycemia Protocol Dextrose (Glutose 15) 0 gm PO ONCE PRN; Protocol PRN Reason: Hypoglycemia Protocol Fluconazole (Diflucan) 100 mg PO DAILY [facility] Last Admin: 11/21/16 09:56 Dose: 100 mg Glipizide (Glucotrol) 10 mg PO BIDAC [facility] Last Admin: 11/21/16 17:08 Dose: 10 mg Glucagon (Glucagen Diagnostic Kit) 0 mg IM STAT PRN; Protocol PRN Reason: Hypoglycemia Protocol Heparin Sodium (Porcine) (Heparin) 5,000 units SC Q12 [facility] PRN Reason: Protocol Last Admin: 11/21/16 21:25 Dose: 5,000 units Insulin Detemir (Levemir) 20 units SC HS [facility] Last Admin: 11/21/16 21:26 Dose: 20 units Insulin Human Lispro (Humalog) 0 units SC ACHS [facility] PRN Reason: Protocol Last Admin: 11/21/16 21:22 Dose: Not Given Insulin Human Lispro (Humalog) 10 units SC AC [facility] Last Admin: 11/21/16 17:11 Dose: 10 unit Metronidazole (Flagyl) 500 mg PO Q8 [facility] Last Admin: 11/21/16 17:08 Dose: 500 mg Nystatin (Nystop Topical Powder) 1 applic TOP TID [facility] Last Admin: 11/21/16 17:13 Dose: 1 applic Ondansetron HCl (Zofran Inj) 4 mg IVP Q4 PRN PRN Reason: Nausea/Vomiting Paroxetine HCl (Paxil) 20 mg PO DAILY [facility] Last Admin: 11/21/16 10:03 Dose: 20 mg Phenol/Menthol (Phenaseptic 1.4% Throat [place]) 1 spry MT Q2 PRN PRN Reason: Sore Throat Repaglinide (Prandin) 2 mg PO TIDWM [facility] Last Admin: 11/21/16 17:13 Dose: 2 mg Saccharomyces Boulardii (Florastor) 250 mg PO BID [facility] Last Admin: 11/21/16 17:08 Dose: 250 mg Sevelamer HCl (Renagel) 800 mg PO TID [facility] Last Admin: 11/21/16 17:13 Dose: 800 mg Sodium Bicarbonate (Sodium Bicarbonate Tab) 650 mg PO Q12 [facility] Last Admin: 11/21/16 21:28 Dose: 650 mg Valsartan (Diovan) 80 mg PO DAILY [facility] Last Admin: 11/21/16 09:58 Dose: 80 mg Vancomycin HCl (Vancocin (Oral/Rectal Use)) 125 mg PO QID [facility] Last Admin: 11/21/16 21:28 Dose: 125 mg - Labs Labs: 11/20/16 09:00 11/20/16 09:00 Assessment and Plan - Assessment and Plan (Free Text) Assessment: CKD .. RENAL FUNCTION STABLE UTI WITH FUNGUS .. ON ANTI FUNGAL .. DIFLUCAN C/O CURRENT CARE
[2016-11-22] MEDS: Insulin Lispro (humaLOG) 100 Units/ml Inj SC SCH ×7 (07:36→21:23)
--- NOTE | 2016-11-22 09:01 | CP.PCM.PN ---
Subjective - Date & Time of Evaluation Date of Evaluation: 11/22/16 Time of Evaluation: 07:35 - Subjective Subjective: 76 y/o F S/P ORIF L/distal radius seen at bedside in not acute distress. Patient states she was informed by PT yesterday that she should stay in the hosp until (patient was scheduled for DC today) and patient agreed. I confirmed with nurse and she is aware and was informed too that patient is staying untill by PT recommendations. She is afebrile, diarrhea resolved, tolerating PO, denies CP, SOB or palpitations. Objective - Vital Signs/Intake and Output Vital Signs (last 24 hours): Temp Pulse Resp BP Pulse Ox 97.9 F 68 20 136/69 97 11/22/16 08:10 11/22/16 08:10 11/22/16 08:10 11/22/16 08:10 11/22/16 08:10 - Medications Medications: Current Medications Acetaminophen (Tylenol 325mg Tab) 650 mg PO Q6 PRN PRN Reason: Fever >100.4 F Atorvastatin Calcium (Lipitor) 40 mg PO HS [facility] Last Admin: 11/21/16 21:27 Dose: 40 mg Cholecalciferol (Vitamin D) 1,000 iu PO DAILY [facility] Last Admin: 11/21/16 10:11 Dose: 1,000 iu Dextrose (Dextrose 50% Inj) 0 ml IV STAT PRN; Protocol PRN Reason: Hyglycemia Protocol Dextrose (Glutose 15) 0 gm PO ONCE PRN; Protocol PRN Reason: Hypoglycemia Protocol Fluconazole (Diflucan) 100 mg PO DAILY [facility] Last Admin: 11/21/16 09:56 Dose: 100 mg Glipizide (Glucotrol) 10 mg PO BIDAC [facility] Last Admin: 11/22/16 07:35 Dose: 10 mg Glucagon (Glucagen Diagnostic Kit) 0 mg IM STAT PRN; Protocol PRN Reason: Hypoglycemia Protocol Heparin Sodium (Porcine) (Heparin) 5,000 units SC Q12 [facility] PRN Reason: Protocol Last Admin: 11/21/16 21:25 Dose: 5,000 units Insulin Detemir (Levemir) 20 units SC HS [facility] Last Admin: 11/21/16 21:26 Dose: 20 units Insulin Human Lispro (Humalog) 0 units SC ACHS [facility] PRN Reason: Protocol Last Admin: 11/22/16 07:36 Dose: Not Given Insulin Human Lispro (Humalog) 10 units SC AC [facility] Last Admin: 11/22/16 07:36 Dose: 10 unit Metronidazole (Flagyl) 500 mg PO Q8 [facility] Last Admin: 11/22/16 01:34 Dose: 500 mg Nystatin (Nystop Topical Powder) 1 applic TOP TID [facility] Last Admin: 11/21/16 17:13 Dose: 1 applic Ondansetron HCl (Zofran Inj) 4 mg IVP Q4 PRN PRN Reason: Nausea/Vomiting Paroxetine HCl (Paxil) 20 mg PO DAILY [facility] Last Admin: 11/21/16 10:03 Dose: 20 mg Phenol/Menthol (Phenaseptic 1.4% Throat [place]) 1 spry MT Q2 PRN PRN Reason: Sore Throat Repaglinide (Prandin) 2 mg PO TIDWM [facility] Last Admin: 11/21/16 17:13 Dose: 2 mg Saccharomyces Boulardii (Florastor) 250 mg PO BID [facility] Last Admin: 11/21/16 17:08 Dose: 250 mg Sevelamer HCl (Renagel) 800 mg PO TID [facility] Last Admin: 11/21/16 17:13 Dose: 800 mg Sodium Bicarbonate (Sodium Bicarbonate Tab) 650 mg PO Q12 [facility] Last Admin: 11/21/16 21:28 Dose: 650 mg Valsartan (Diovan) 80 mg PO DAILY [facility] Last Admin: 11/21/16 09:58 Dose: 80 mg Vancomycin HCl (Vancocin (Oral/Rectal Use)) 125 mg PO QID [facility] Last Admin: 11/21/16 21:28 Dose: 125 mg - Labs Labs: 11/20/16 09:00 11/20/16 09:00 - Constitutional Appears: Non-toxic, No Acute Distress - Head Exam Head Exam: NORMAL INSPECTION - Eye Exam Eye Exam: PERRL - ENT Exam ENT Exam: Mucous Membranes Moist - Respiratory Exam Respiratory Exam: Clear to Ausculation Bilateral, NORMAL BREATHING PATTERN. absent: Rales, Wheezes - Cardiovascular Exam Cardiovascular Exam: REGULAR RHYTHM, RRR, +S1, +S2. absent: Murmur - GI/Abdominal Exam GI & Abdominal Exam: Soft, Normal Bowel Sounds. absent: Tenderness - Extremities Exam Extremities Exam: Normal Capillary Refill. absent: Calf Tenderness Additional comments: R/wrist covered with post-op cast and dressing. No signs of neurovascular compromise - Neurological Exam Neurological Exam: Alert, Awake, Oriented x3 - Psychiatric Exam Psychiatric exam: Normal Affect, Normal Mood - Skin Skin Exam: Normal Color, Warm Assessment and Plan - Assessment and Plan (Free Text) Assessment: 75 y/o woman w/ PMHx of HLD, COPD, Anxiety/Depression, CKD, HTN, DM II admitted to TCU for PT/OT treatment s/p L/distal radius ORIF, cdiff positive. Left distal radial fracture(stable) - S/P ORIF L/distal radius on 11/07 - Percocet 2 tab PO Q4 prn - Patient receiving PT services. New DC date 11/24/16 as per PT - PT recommends [facility] after TCU but patient declines and wants to go home after living hosp - Spoke with Dr Carrizales(Ortho Sx) aware that patient is being DC from hosp Elevate Leukocytosis improved -ID consult appreciated, Krystin Singer -most likely from cdiff -afebrile -lactic acid 0.5 -BCx no growth C.Diff Colitis -diarrhea resolved -GI consulted -ID Consulted -c diff positive(toxin and antigen) -Will stop flagyl today(10 days) -Cont PO Vanco(day 9)(to complete 10 days as per ID recs) Bacteriuria with B/L hydronephrosis -Initial UCx: Klebsiella Pneu: Patient completed IV Meropenen course -Repeat UCx: Yeast infection -Cont PO Fluconazole 100mg daily(to complete 10 days per ID recs) day 7 -Urology consult Dr Valentine: No interventions at this time due to current infection. Patient is gonna need F/U as outpatient CKD (Stage 4) - Nephro consult appreciated: Dr Houston, - GFR 20, bun/cr stable -u/s renal: severe b/l hydronephrosis, post void 95.9. bladder wall appears irregular posteriorly contains evidence of debris. dilated distal right ureter. -c/w current management DM II uncontrolled - non-compliant with home insulin therapy - accuchecks/ACHS - Managed by air director(Dr Rai) - Cont Prandin and Glucotrol - Cont Levemir HS - HgbA1c 08/31/2016: 13.6 - heart healthy, moderate consistent carbohydrate diet - Patient will need Home health nursing services for DM teaching management after DC from hosp if DC on insulin therapy HTN - Cardiology consult appreciated, Dr Griffiths - Controlled, stable - continue with home meds: Valsartan 80 mg PO daily [facility] - continue with atorvastatin 40 mg PO daily Anxiety/Depression - stable - continue with home meds: Paroxetine 20 mg PO daily - Monitor DVT ppx - SCDs - heparin 5,000 sc q12
[2016-11-22] MEDS: Saccharomyces Boulardi 250 mg Cap PO SCH ×2 (09:19→16:58)
[2016-11-22] MEDS: Vancomycin 500 mg (Oral/Rectal USE) PO SCH ×4 (09:23→21:15)
--- NOTE | 2016-11-22 10:04 | CP.PCM.PN ---
Subjective - Date & Time of Evaluation Date of Evaluation: 11/22/16 Time of Evaluation: 08:15 - Subjective Subjective: NO CHEST PAIN OR SOB DIARRHEA HAS STOPPED Objective - Vital Signs/Intake and Output Vital Signs (last 24 hours): Temp Pulse Resp BP Pulse Ox 97.9 F 68 20 136/69 97 11/22/16 08:10 11/22/16 08:10 11/22/16 08:10 11/22/16 08:10 11/22/16 08:10 - Medications Medications: Current Medications Acetaminophen (Tylenol 325mg Tab) 650 mg PO Q6 PRN PRN Reason: Fever >100.4 F Atorvastatin Calcium (Lipitor) 40 mg PO HS [facility] Last Admin: 11/21/16 21:27 Dose: 40 mg Cholecalciferol (Vitamin D) 1,000 iu PO DAILY [facility] Last Admin: 11/22/16 09:19 Dose: 1,000 iu Dextrose (Dextrose 50% Inj) 0 ml IV STAT PRN; Protocol PRN Reason: Hyglycemia Protocol Dextrose (Glutose 15) 0 gm PO ONCE PRN; Protocol PRN Reason: Hypoglycemia Protocol Fluconazole (Diflucan) 100 mg PO DAILY [facility] Last Admin: 11/22/16 09:19 Dose: 100 mg Glipizide (Glucotrol) 10 mg PO BIDAC [facility] Last Admin: 11/22/16 07:35 Dose: 10 mg Glucagon (Glucagen Diagnostic Kit) 0 mg IM STAT PRN; Protocol PRN Reason: Hypoglycemia Protocol Heparin Sodium (Porcine) (Heparin) 5,000 units SC Q12 [facility] PRN Reason: Protocol Last Admin: 11/22/16 09:20 Dose: 5,000 units Insulin Detemir (Levemir) 20 units SC HS [facility] Last Admin: 11/21/16 21:26 Dose: 20 units Insulin Human Lispro (Humalog) 0 units SC ACHS [facility] PRN Reason: Protocol Last Admin: 11/22/16 07:36 Dose: Not Given Insulin Human Lispro (Humalog) 10 units SC AC [facility] Last Admin: 11/22/16 07:36 Dose: 10 unit Nystatin (Nystop Topical Powder) 1 applic TOP TID [facility] Last Admin: 11/22/16 09:21 Dose: 1 applic Ondansetron HCl (Zofran Inj) 4 mg IVP Q4 PRN PRN Reason: Nausea/Vomiting Paroxetine HCl (Paxil) 20 mg PO DAILY [facility] Last Admin: 11/22/16 09:23 Dose: 20 mg Phenol/Menthol (Phenaseptic 1.4% Throat [place]) 1 spry MT Q2 PRN PRN Reason: Sore Throat Repaglinide (Prandin) 2 mg PO TIDWM [facility] Last Admin: 11/22/16 08:00 Dose: 2 mg Saccharomyces Boulardii (Florastor) 250 mg PO BID [facility] Last Admin: 11/22/16 09:19 Dose: 250 mg Sevelamer HCl (Renagel) 800 mg PO TID [facility] Last Admin: 11/22/16 09:19 Dose: 800 mg Sodium Bicarbonate (Sodium Bicarbonate Tab) 650 mg PO Q12 [facility] Last Admin: 11/22/16 09:23 Dose: 650 mg Valsartan (Diovan) 80 mg PO DAILY [facility] Last Admin: 11/22/16 09:20 Dose: 80 mg Vancomycin HCl (Vancocin (Oral/Rectal Use)) 125 mg PO QID [facility] Last Admin: 11/22/16 09:23 Dose: 125 mg - Labs Labs: 11/20/16 09:00 11/20/16 09:00 - Respiratory Exam Respiratory Exam: Clear to Ausculation Bilateral - Cardiovascular Exam Cardiovascular Exam: REGULAR RHYTHM, +S1, +S2 Assessment and Plan - Assessment and Plan (Free Text) Assessment: HYPERTENSION HYPERLIPIDEMIA LEFT RADIUS FRACTURE SURGICAL REPAIR C DIFFICILE COLITIS UTI DM Plan: CONTINUE VALSARTAN, ATORVASTATIN, ANTIBIOTICS, INSULIN, GLIPIZIDE REHAB EXTENDED TWO MOR DAYS UNTIL 11/24/16
--- NOTE | 2016-11-22 15:05 | PN ---
DATE: 11/22/2016 ROOM: 713, [facility]. This is a 76-year-old female with recent uncontrolled type 2 insulin-requiring diabetes, now being fo llowed closely for metabolic management. Her glycemic levels are fluctuating but much improved at this time, and the latest glucose levels hav e ranged from 97-180 and 287 mg/dL. So at this time, will continue the same modified basal and bolus insulin regimen to allow for dose eq uilibration and keep her on the Levemir given as 20 units subQ at bedtime daily as ordered. Will con tinue also the Humalog given as 10 units subQ t.i.d. before meals as given. Will titrate incremental ly as indicated to optimize metabolic control. Will follow. Annelise Rai MD cc: [id number] TT: 11/22/2016 15:05:31 Confirmation # [id number] Dictation # [id number]
[2016-11-22] MEDS: Insulin Detemir 100 Units/ml Inj SC SCH (21:19)
[2016-11-23] MEDS: Insulin Lispro (humaLOG) 100 Units/ml Inj SC SCH ×7 (06:48→21:17)
[2016-11-23 06:51] LABS: HEMATOCRIT 39.1 % (34.0-47.0); MEAN CORPUSCULAR HEMOGLOBIN 25.3 pg (27.0-31.0); MEAN CORPUSCULAR HGB CONC 30.9 g/dL (33.0-37.0); RED CELL DISTRIBUTION WIDTH 15.2 % (11.5-14.5); WHITE BLOOD COUNT 12.9 K/uL (4.8-10.8)
[2016-11-23 06:58] LABS: POTASSIUM 5.5 MMOL/L (3.6-5.0)
[2016-11-23] MEDS: Saccharomyces Boulardi 250 mg Cap PO SCH ×2 (08:28→16:30)
[2016-11-23] MEDS: Vancomycin 500 mg (Oral/Rectal USE) PO SCH ×4 (08:35→21:16)
[2016-11-23] MEDS ORDERED: Sod Polystyrene Sulf 15 gm/60 ml Oral Susp PO ONE (09:09)
[2016-11-23] MEDS ORDERED: Sodium Chloride 0.9% 500 ML IV ONE (09:14)
--- NOTE | 2016-11-23 09:16 | CP.PCM.PN ---
Subjective - Date & Time of Evaluation Date of Evaluation: 11/23/16 Time of Evaluation: 07:00 - Subjective Subjective: 76 y/o F s/p ORIF L/distal radius and C.diff infection seen at bedside in not acute distress. Patient is scheduled for discharge from hosp tomorrow after finishing PT treatment. Patient continues declining home services or subacute rehab after dc. Today she denies CP, SOB, palpitations, abd pain or diarrhea. Tolerating PO. BS levels improved since yesterday. Altered BMP noticed. Objective - Vital Signs/Intake and Output Vital Signs (last 24 hours): Temp Pulse Resp BP Pulse Ox 97.6 F 88 20 130/76 96 11/23/16 08:19 11/23/16 08:19 11/23/16 08:19 11/23/16 08:19 11/23/16 08:19 - Medications Medications: Current Medications Acetaminophen (Tylenol 325mg Tab) 650 mg PO Q6 PRN PRN Reason: Fever >100.4 F Atorvastatin Calcium (Lipitor) 40 mg PO HS [facility] Last Admin: 11/22/16 21:15 Dose: 40 mg Cholecalciferol (Vitamin D) 1,000 iu PO DAILY [facility] Last Admin: 11/23/16 08:35 Dose: 1,000 iu Dextrose (Dextrose 50% Inj) 0 ml IV STAT PRN; Protocol PRN Reason: Hyglycemia Protocol Dextrose (Glutose 15) 0 gm PO ONCE PRN; Protocol PRN Reason: Hypoglycemia Protocol Fluconazole (Diflucan) 100 mg PO DAILY [facility] Last Admin: 11/23/16 08:27 Dose: 100 mg Glipizide (Glucotrol) 10 mg PO BIDAC [facility] Last Admin: 11/23/16 06:50 Dose: 10 mg Glucagon (Glucagen Diagnostic Kit) 0 mg IM STAT PRN; Protocol PRN Reason: Hypoglycemia Protocol Heparin Sodium (Porcine) (Heparin) 5,000 units SC Q12 [facility] PRN Reason: Protocol Last Admin: 11/23/16 08:29 Dose: 5,000 units Insulin Detemir (Levemir) 20 units SC HS [facility] Last Admin: 11/22/16 21:19 Dose: 20 units Insulin Human Lispro (Humalog) 0 units SC ACHS [facility] PRN Reason: Protocol Last Admin: 11/23/16 06:48 Dose: Not Given Insulin Human Lispro (Humalog) 10 units SC AC [facility] Last Admin: 11/23/16 07:42 Dose: 10 unit Nystatin (Nystop Topical Powder) 1 applic TOP TID [facility] Last Admin: 11/22/16 16:59 Dose: 1 applic Paroxetine HCl (Paxil) 20 mg PO DAILY [facility] Last Admin: 11/23/16 08:31 Dose: 20 mg Phenol/Menthol (Phenaseptic 1.4% Throat [place]) 1 spry MT Q2 PRN PRN Reason: Sore Throat Repaglinide (Prandin) 2 mg PO TIDWM [facility] Last Admin: 11/23/16 08:32 Dose: 2 mg Saccharomyces Boulardii (Florastor) 250 mg PO BID [facility] Last Admin: 11/23/16 08:28 Dose: 250 mg Sevelamer HCl (Renagel) 800 mg PO TID [facility] Last Admin: 11/23/16 08:32 Dose: 800 mg Sodium Bicarbonate (Sodium Bicarbonate Tab) 650 mg PO Q12 [facility] Last Admin: 11/23/16 08:32 Dose: 650 mg Valsartan (Diovan) 80 mg PO DAILY [facility] Last Admin: 11/23/16 08:28 Dose: 80 mg Vancomycin HCl (Vancocin (Oral/Rectal Use)) 125 mg PO QID [facility] Last Admin: 11/23/16 08:35 Dose: 125 mg - Labs Labs: 11/23/16 06:33 11/23/16 06:33 - Head Exam Head Exam: NORMAL INSPECTION - Eye Exam Eye Exam: PERRL - ENT Exam ENT Exam: Mucous Membranes Moist - Respiratory Exam Respiratory Exam: Clear to Ausculation Bilateral, NORMAL BREATHING PATTERN - Cardiovascular Exam Cardiovascular Exam: REGULAR RHYTHM, RRR, +S1, +S2 - GI/Abdominal Exam GI & Abdominal Exam: Soft, Normal Bowel Sounds. absent: Distended - Extremities Exam Extremities Exam: Normal Capillary Refill. absent: Calf Tenderness - Neurological Exam Neurological Exam: Alert, Awake, Oriented x3 - Psychiatric Exam Psychiatric exam: Normal Affect, Normal Mood - Skin Skin Exam: Normal Color, Warm Assessment and Plan - Assessment and Plan (Free Text) Assessment: 75 y/o woman w/ PMHx of HLD, COPD, Anxiety/Depression, CKD, HTN, DM II admitted to TCU for PT/OT treatment s/p L/distal radius ORIF, cdiff positive. Left distal radial fracture(stable) - S/P ORIF L/distal radius on 11/07 - Percocet 2 tab PO Q4 prn - Patient receiving PT services. New DC date 11/24/16 as per PT - PT recommends [facility] after TCU but patient declines and wants to go home after living hosp - Spoke with Dr Carrizales(Ortho Sx) aware that patient is being DC from hosp [facility] Leukocytosis improved -ID consult appreciated, Krystin Singer -most likely from cdiff -afebrile -lactic acid 0.5 -BCx no growth C.Diff Colitis -diarrhea resolved -GI consulted -ID Consulted -c diff positive(toxin and antigen) -Cont PO Vanco(day 10)(to complete 10 days as per ID recs) Bacteriuria with B/L hydronephrosis -Initial UCx: Klebsiella Pneu: Patient completed IV Meropenen course -Repeat UCx: Yeast infection -Cont PO Fluconazole 100mg daily(to complete 10 days per ID recs) day 8 -Urology consult Dr Valentine: No interventions at this time due to current infection. Patient is gonna need F/U as outpatient CKD (Stage 4) - Nephro consult appreciated: Dr Houston, - GFR 20, bun/cr stable -u/s renal: severe b/l hydronephrosis, post void 95.9. bladder wall appears irregular posteriorly contains evidence of debris. dilated distal right ureter. -BUM/creat elevated above usual levels: 500ml bolus NS IV -Potassium 5.5 Kayexalate 1 dose stat F/U Repeat BMP DM II uncontrolled - non-compliant with home insulin therapy - accuchecks/ACHS - Managed by engine maintenance mechanic(Dr Rai) - Cont Prandin and Glucotrol - Cont Levemir HS - HgbA1c 08/31/2016: 13.6 - heart healthy, moderate consistent carbohydrate diet - Patient will need Home health nursing services for DM teaching management after DC from hosp if DC on insulin therapy HTN - Cardiology consult appreciated, Dr Griffiths - Controlled, stable - continue with home meds: Valsartan 80 mg PO daily HLD - continue with atorvastatin 40 mg PO daily Anxiety/Depression - stable - continue with home meds: Paroxetine 20 mg PO daily - Monitor DVT ppx - SCDs - heparin 5,000 sc q12
--- NOTE | 2016-11-23 10:18 | CP.PCM.PN ---
Subjective - Date & Time of Evaluation Date of Evaluation: 11/23/16 Time of Evaluation: 09:45 - Subjective Subjective: NO CHEST PAIN OR SOB NO DIARRHEA Objective - Vital Signs/Intake and Output Vital Signs (last 24 hours): Temp Pulse Resp BP Pulse Ox 97.6 F 88 20 130/76 96 11/23/16 08:19 11/23/16 08:19 11/23/16 08:19 11/23/16 08:19 11/23/16 08:19 - Medications Medications: Current Medications Acetaminophen (Tylenol 325mg Tab) 650 mg PO Q6 PRN PRN Reason: Fever >100.4 F Atorvastatin Calcium (Lipitor) 40 mg PO HS [facility] Last Admin: 11/22/16 21:15 Dose: 40 mg Cholecalciferol (Vitamin D) 1,000 iu PO DAILY [facility] Last Admin: 11/23/16 08:35 Dose: 1,000 iu Dextrose (Dextrose 50% Inj) 0 ml IV STAT PRN; Protocol PRN Reason: Hyglycemia Protocol Dextrose (Glutose 15) 0 gm PO ONCE PRN; Protocol PRN Reason: Hypoglycemia Protocol Fluconazole (Diflucan) 100 mg PO DAILY [facility] Last Admin: 11/23/16 08:27 Dose: 100 mg Glipizide (Glucotrol) 10 mg PO BIDAC [facility] Last Admin: 11/23/16 06:50 Dose: 10 mg Glucagon (Glucagen Diagnostic Kit) 0 mg IM STAT PRN; Protocol PRN Reason: Hypoglycemia Protocol Heparin Sodium (Porcine) (Heparin) 5,000 units SC Q12 [facility] PRN Reason: Protocol Last Admin: 11/23/16 08:29 Dose: 5,000 units Insulin Detemir (Levemir) 20 units SC HS [facility] Last Admin: 11/22/16 21:19 Dose: 20 units Insulin Human Lispro (Humalog) 0 units SC ACHS [facility] PRN Reason: Protocol Last Admin: 11/23/16 06:48 Dose: Not Given Insulin Human Lispro (Humalog) 10 units SC AC [facility] Last Admin: 11/23/16 07:42 Dose: 10 unit Nystatin (Nystop Topical Powder) 1 applic TOP TID [facility] Last Admin: 11/22/16 16:59 Dose: 1 applic Paroxetine HCl (Paxil) 20 mg PO DAILY [facility] Last Admin: 11/23/16 08:31 Dose: 20 mg Phenol/Menthol (Phenaseptic 1.4% Throat [place]) 1 spry MT Q2 PRN PRN Reason: Sore Throat Repaglinide (Prandin) 2 mg PO TIDWM [facility] 234 [facility]S [facility] Last Admin: 11/23/16 08:32 Dose: 2 mg Saccharomyces Boulardii (Florastor) 250 mg PO BID [facility] Last Admin: 11/23/16 08:28 Dose: 250 mg Sevelamer HCl (Renagel) 800 mg PO TID [facility] Last Admin: 11/23/16 08:32 Dose: 800 mg Sodium Bicarbonate (Sodium Bicarbonate Tab) 650 mg PO Q12 [facility] Last Admin: 11/23/16 08:32 Dose: 650 mg Valsartan (Diovan) 80 mg PO DAILY [facility] Last Admin: 11/23/16 08:28 Dose: 80 mg Vancomycin HCl (Vancocin (Oral/Rectal Use)) 125 mg PO QID [facility] Last Admin: 11/23/16 08:35 Dose: 125 mg - Labs Labs: 11/23/16 06:33 11/23/16 06:33 - Respiratory Exam Respiratory Exam: Clear to Ausculation Bilateral - Cardiovascular Exam Cardiovascular Exam: REGULAR RHYTHM, +S1, +S2 Assessment and Plan - Assessment and Plan (Free Text) Assessment: FALL WITH LEFT RADIUS FRACTURE AND SURGICAL REPAIR HYPERTENSION HYPERLIPIDEMIA C. DIFFICLE COLITIS UTI Plan: CONDTINUE VALSARTAN, AMLODIPINE AND ANTIBIOTICS FOR DISCHARGE IN AM
--- NOTE | 2016-11-23 16:49 | PN ---
DATE: 11/23/2016 ROOM: 713 This is a 76-year-old female with recent uncontrolled type 2 insulin-requiring diabetes, now being fo llowed closely for metabolic management. She underwent a recent left wrist open reduction and pr intern al fixation procedure and is currently undergoing physical therapy as noted thereof. Her glycemic le vels are still fluctuating as noted and have ranged from 137-358 mg/dL. Her glucose values overnight showed levels ranging from 178- mg/dL. Her latest chemistry showed a BUN of 52, sodium 138, potassium 5.5, chloride 106, CO2 of 22, glucose 137, and creatinine 2.6. So, at this time, we will continue the same basal and bolus insulin regimen to allow for dose equilibration and keep her on the Levemir given as 20 units subQ at bedtime daily as given. We will continue the Humalog given as 10 units subQ t.i.d. before meals as ordered. The b iggest concern at this time is the patient's inability to actually self-administer her own insulin re gimen because of the recent fracture in the left wrist as noted. She may need subacute facility [facility] care for the aforementioned glucose monitoring and intensive insulin therapy as ordered. We will follow. Annelise Rai MD cc: [id number] TT: 11/23/2016 16:48:13 Confirmation # [id number] Dictation # [id number]
[2016-11-23 19:26] LABS: CALCIUM 8.7 mg/dL (8.4-10.2); POTASSIUM 4.3 MMOL/L (3.6-5.0)
[2016-11-23 20:36] VITALS: O2SAT 96
[2016-11-23 20:39] VITALS: BP 127/58; PULSE 85; TEMP 98.2
[2016-11-23] MEDS: Insulin Detemir 100 Units/ml Inj SC SCH (21:10)
--- NOTE | 2016-11-23 23:49 | CP.PCM.PN ---
Subjective - Date & Time of Evaluation Date of Evaluation: 11/23/16 Time of Evaluation: 13:00 - Subjective Subjective: SEEN ON RENAL F/U FEELS IMPROVED ALL PREVIOUS EMR REVIEWED RENAL FUNCTION MORE OR LESS STABLE Objective - Vital Signs/Intake and Output Vital Signs (last 24 hours): Temp Pulse Resp BP Pulse Ox 98.2 F 85 20 127/58 L 96 11/23/16 20:35 11/23/16 20:35 11/23/16 20:35 11/23/16 20:35 11/23/16 20:35 - Medications Medications: Current Medications Acetaminophen (Tylenol 325mg Tab) 650 mg PO Q6 PRN PRN Reason: Fever >100.4 F Atorvastatin Calcium (Lipitor) 40 mg PO HS [facility] Last Admin: 11/23/16 21:06 Dose: 40 mg Cholecalciferol (Vitamin D) 1,000 iu PO DAILY [facility] Last Admin: 11/23/16 08:35 Dose: 1,000 iu Dextrose (Dextrose 50% Inj) 0 ml IV STAT PRN; Protocol PRN Reason: Hyglycemia Protocol Dextrose (Glutose 15) 0 gm PO ONCE PRN; Protocol PRN Reason: Hypoglycemia Protocol Fluconazole (Diflucan) 100 mg PO DAILY [facility] Last Admin: 11/23/16 08:27 Dose: 100 mg Glipizide (Glucotrol) 10 mg PO BIDAC [facility] Last Admin: 11/23/16 16:31 Dose: 10 mg Glucagon (Glucagen Diagnostic Kit) 0 mg IM STAT PRN; Protocol PRN Reason: Hypoglycemia Protocol Heparin Sodium (Porcine) (Heparin) 5,000 units SC Q12 [facility] PRN Reason: Protocol Last Admin: 11/23/16 21:06 Dose: 5,000 units Insulin Detemir (Levemir) 20 units SC HS [facility] Last Admin: 11/23/16 21:10 Dose: 20 units Insulin Human Lispro (Humalog) 0 units SC ACHS [facility] PRN Reason: Protocol Last Admin: 11/23/16 21:17 Dose: Not Given Insulin Human Lispro (Humalog) 10 units SC AC [facility] Last Admin: 11/23/16 16:34 Dose: 10 unit Nystatin (Nystop Topical Powder) 1 applic TOP TID [facility] Last Admin: 11/23/16 16:35 Dose: 1 applic Paroxetine HCl (Paxil) 20 mg PO DAILY [facility] Last Admin: 11/23/16 08:31 Dose: 20 mg Phenol/Menthol (Phenaseptic 1.4% Throat [place]) 1 spry MT Q2 PRN PRN Reason: Sore Throat Repaglinide (Prandin) 2 mg PO TIDWM [facility] Last Admin: 11/23/16 16:36 Dose: 2 mg Saccharomyces Boulardii (Florastor) 250 mg PO BID [facility] Last Admin: 11/23/16 16:30 Dose: 250 mg Sevelamer HCl (Renagel) 800 mg PO TID [facility] Last Admin: 11/23/16 16:36 Dose: 800 mg Sodium Bicarbonate (Sodium Bicarbonate Tab) 650 mg PO Q12 [facility] Last Admin: 11/23/16 21:06 Dose: 650 mg Valsartan (Diovan) 80 mg PO DAILY [facility] Last Admin: 11/23/16 08:28 Dose: 80 mg Vancomycin HCl (Vancocin (Oral/Rectal Use)) 125 mg PO QID [facility] Last Admin: 11/23/16 21:16 Dose: 125 mg - Labs Labs: 11/23/16 06:33 11/23/16 19:00 Assessment and Plan - Assessment and Plan (Free Text) Assessment: CKD .. RENAL FUNCTION STABLE ADELAIDA HYDRO THAT SEVERE AND CHRONIC .. DR GUIDO OPINION APPRECIATED URINARY BLADDER POST VOID RESIDUAL ID LARGE .. DR GUIDO OPINION ALSO APPRECIATED FUNGAL CYSTITIS .. ON DIFLUCAN .. MUCH IMPROVED P : C/O CURRENT CARE REPEATE U/A AND C/S
--- NOTE | 2016-11-24 22:03 | CP.PCM.DIS ---
Provider - Provider Date of Admission: 11/09/16 16:07 Attending physician: Jose Juan Boswell MD Time Spent in preparation of Discharge (in minutes): 40 Diagnosis - Discharge Diagnosis (1) DKA, type 2, not at goal Status: Chronic (2) Distal radial fracture Status: Acute (3) Yeast UTI Status: Acute (4) Chronic kidney disease (CKD), stage IV (severe) Status: Chronic (5) Depression Status: Chronic (6) Hydronephrosis Status: Chronic (7) Clostridium difficile diarrhea Status: Resolved Hospital Course - Lab Results Lab Results: Micro Results 11/12/16 16:00 Blood Blood Culture - Final NO GROWTH AFTER 5 DAYS 11/12/16 16:00 Blood Gram Stain - Final TEST NOT PERFORMED 11/12/16 15:30 Blood Blood Culture - Final NO GROWTH AFTER 5 DAYS 11/12/16 15:30 Blood Gram Stain - Final TEST NOT PERFORMED 11/12/16 16:28 Urine,Catheterized Urine Culture - Final Yeast Species Most Recent Lab Values WBC 12.9 K/uL (4.8-10.8) H 11/23/16 06:33 RBC 4.77 Mil/uL (3.80-5.20) 11/23/16 06:33 Hgb 12.1 g/dL (12.0-16.0) 11/23/16 06:33 Hct 39.1 % (34.0-47.0) 11/23/16 06:33 MCV 82.0 fl (81.0-99.0) 11/23/16 06:33 MCH 25.3 pg (27.0-31.0) L 11/23/16 06:33 MCHC 30.9 g/dL (33.0-37.0) L 11/23/16 06:33 RDW 15.2 % (11.5-14.5) H 11/23/16 06:33 Plt Count 475 K/uL (130-400) H 11/23/16 06:33 MPV 7.7 fl (7.2-11.7) 11/20/16 09:00 Neut % (Auto) 64.0 % (50.0-75.0) 11/20/16 09:00 Lymph % (Auto) 22.7 % (20.0-40.0) 11/20/16 09:00 Keith % (Auto) 8.8 % (0.0-10.0) 11/20/16 09:00 Eos % (Auto) 3.7 % (0.0-4.0) 11/20/16 09:00 Baso % (Auto) 0.8 % (0.0-2.0) 11/20/16 09:00 Neut # 8.8 K/uL (1.8-7.0) H 11/20/16 09:00 Lymph # 3.1 K/uL (1.0-4.3) 11/20/16 09:00 Keith # 1.2 K/uL (0.0-0.8) H 11/20/16 09:00 Eos # 0.5 K/uL (0.0-0.7) 11/20/16 09:00 Baso # 0.1 K/uL (0.0-0.2) 11/20/16 09:00 Neutrophils % (Manual) 80 % (42-75) H 11/13/16 07:15 Band Neutrophils % 5 % (0-2) H 11/13/16 07:15 Lymphocytes % (Manual) 4 % (20-50) L 11/13/16 07:15 Monocytes % (Manual) 9 % (0-10) 11/13/16 07:15 Eosinophils % (Manual) 1 % (0-7) 11/13/16 07:15 Myelocytes % 1 % (0-0) H 11/13/16 07:15 Platelet Estimate Normal (NORMAL) 11/13/16 07:15 Large Platelets Present 11/13/16 07:15 Poikilocytosis (manual Slight 11/13/16 07:15 Anisocytosis (manual) Slight 11/13/16 07:15 Matthews Cells Slight 11/13/16 07:15 Sodium 137 mmol/l (132-148) 11/23/16 19:00 Potassium 4.3 MMOL/L (3.6-5.0) 11/23/16 19:00 Chloride 105 mmol/L (98-107) 11/23/16 19:00 Carbon Dioxide 20 mmol/L (22-30) L 11/23/16 19:00 Anion Gap 16 (10-20) 11/23/16 19:00 BUN 49 mg/dl (7-17) H 11/23/16 19:00 Creatinine 2.4 mg/dL (0.7-1.2) H 11/23/16 19:00 Est GFR ( Amer) 24 11/23/16 19:00 Est GFR (Non-Af Amer) 20 11/23/16 19:00 POC Glucose (mg/dL) 208 mg/dL (65-110) H 11/24/16 20:31 Random Glucose 115 mg/dL (65-105) H 11/23/16 19:00 Hemoglobin A1c 10.8 % (4.2-6.5) H D 11/11/16 06:28 Lactic Acid < 0.5 MMOL/L (0.7-2.1) L 11/14/16 06:00 Calcium 8.7 mg/dL (8.4-10.2) 11/23/16 19:00 Magnesium 1.7 MG/DL (1.6-2.3) 11/12/16 15:30 Total Bilirubin 0.2 mg/dl (0.2-1.3) 11/20/16 09:00 AST 28 U/L (14-36) 11/20/16 09:00 ALT 34 U/L (9-52) 11/20/16 09:00 Alkaline Phosphatase 154 U/L (38-126) H D 11/20/16 09:00 Total Protein 7.3 G/DL (6.3-8.2) 11/20/16 09:00 Albumin 3.4 g/dL (3.5-5.0) L D 11/20/16 09:00 Globulin 3.9 gm/dL (2.2-3.9) 11/20/16 09:00 Albumin/Globulin Ratio 0.9 (1.0-2.1) L 11/20/16 09:00 Procalcitonin 0.60 NG/ML (0.19-0.49) H 11/13/16 07:15 TSH 3rd Generation 1.31 mIU/ML (0.46-4.68) 11/11/16 06:28 Urine Color Yellow (YELLOW) 11/12/16 16:28 Urine Clarity Turbid (Clear) 11/12/16 16:28 Urine pH 6.0 (5.0-8.0) 11/12/16 16:28 Ur Specific [place] 1.008 (1.003-1.030) 11/12/16 16:28 Urine Protein 30 mg/dL (NEGATIVE) 11/12/16 16:28 Urine Glucose (UA) Neg mg/dL (Normal) 11/12/16 16:28 Urine Ketones Negative mg/dL (NEGATIVE) 11/12/16 16:28 Urine Blood Moderate (NEGATIVE) 11/12/16 16:28 Urine Nitrate Negative (NEGATIVE) 11/12/16 16:28 Urine Bilirubin Negative (NEGATIVE) 11/12/16 16:28 Urine Urobilinogen 0.2-1.0 mg/dL (0.2-1.0) 11/12/16 16:28 Ur Leukocyte Esterase Large Emilio/uL (Negative) 11/12/16 16:28 Urine RBC (Auto) 33 /hpf (0-3) H 11/12/16 16:28 Urine WBC Clumps (Auto) Many /hpf (NONE) H 11/12/16 16:28 Urine Microscopic WBC 1965 /hpf (0-5) H 11/12/16 16:28 Ur Squamous Epith Cells 1 /hpf (0-5) 11/12/16 16:28 Urine Yeast (Budding) Occ /hpf (NEGATIVE) H 11/09/16 23:13 Vancomycin Trough 7.2 ug/mL (5.0-10.0) 11/13/16 06:20 Random Vancomycin 12.9 ug/mL 11/16/16 06:30 C. difficile Ag & Toxin Positive antigen (NEGATIVE) 11/16/16 Unknown - Hospital Course Hospital Course: 76 y/ oF with PMHx of uncontrolled DM, HTN, CKD, depression, and Hydronephrosis was admitted to hosp for L/wrist fx and underwent ORIF of L/distal radius by Ortho Sx Dr Carrizales. She was transferred to TCU for PT, while in there she was complicated with severe diarrhea, mild dehydration, C.Diff infection, Leukocytosis, yeast UTI, DM uncontrolled. She was evaluated by Endo(Dr Rai), Nephrology(Dr Houston), Urology(Dr Valentine), ID(Dr Lugo), GI (Dr Barriga). Patient responded well to IV abx, PO abx , antifungals, IV fluids and pain control. During inpatient stay BS remains fluctuating and insulin dose was closely managed by Dr Rai without optimus control. The safest dispo for patient after improvement was to cont PT and DM management at subacute rehab or home services but patient refused. She is aware of possible complications and states she will f/u as outpatient for closer monitoring. Patient completed IV abx course as well as PO vanco and flagyl for C.Diff. Diarrhea resolved. 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 Discharge meds Aspirin [Ecotrin] 81 mg PO DAILY Atorvastatin [Lipitor] 40 mg PO DAILY Glipizide [Glipizide ER] 5 mg PO Insulin Detemir [Levemir] 20 units SC HS Metoprolol Tartrate [Lopressor] 12.5 mg PO Q12 Multimineral/Multivitamin 1 tab PO DAILY PAroxetine [Paxil] 20 mg PO DAILY Repaglinide [Prandin] 2 mg PO TIDWM Sodium Bicarbonate 650 mg PO DAILY Valsartan [Diovan] 80 mg PO DAILY Humalog 10 units before meals REnagel 800mg TID Diflucan 100mg daily for 4 days Discharge Exam - Head Exam Head Exam: NORMAL INSPECTION - Eye Exam Eye Exam: PERRL - ENT Exam ENT Exam: Mucous Membranes Moist - Respiratory Exam Respiratory Exam: Clear to PA & Lateral, NORMAL BREATHING PATTERN, UNREMARKABLE - Cardiovascular Exam Cardiovascular Exam: REGULAR RHYTHM, +S1, +S2. absent: Gallop, Systolic Murmur - GI/Abdominal Exam GI & Abdominal Exam: Normal Bowel Sounds, Unremarkable. absent: Guarding, Tenderness - Extremities Exam Additional comments: L/wrist covered with dressing and cast. No signs of neurovascular compromise - Neurological Exam Neurological exam: Alert, Oriented x3, Reflexes Normal - Psychiatric Exam Psychiatric exam: Normal Affect, Normal Mood - Skin Skin Exam: Normal Color, Warm Discharge Plan - Follow Up Plan Condition: IMPROVED Disposition: HOME/ ROUTINE Additional Instructions: Instructions given in paper due to system downtime the day of DC. Patient declined subacute rehab or home services
--- NOTE | 2016-11-24 23:23 | PN ---
DATE: 11/24/2016 This is a 76-year-old female with recent uncontrolled type 2 insulin-requiring diabetes, now being fo llowed closely for metabolic management. Her glycemic levels are fluctuating, but much improved at t his time and the latest chemistries showed a BUN of 49, sodium 137, potassium 4.3, chloride 105, CO2 20, glucose 115, and creatinine 2.4. Her glucose levels today have ranged from 164 to 208 mg/dL. So at this time, would recommend the same basal and bolus insulin regimen as given with Levemir given a s 24 units subQ at bedtime daily and Humalog given as 12 units subQ t.i.d. before meals as ordered. We will titrate incrementally as indicated to optimize metabolic control. We will also continue the dual oral hypoglycemic drug therapy as given with glipizide given as 10 mg b.i.d. and Prandin given a s 2 mg p.o. t.i.d. with meals as ordered. The patient has refused subacute care and has opted to go home with no physical therapy. The biggest concern at this time is the patient's difficulty with ins ulin self-administration as noted. We will follow and advise accordingly. Annelise Rai MD cc: [id number] TT: 11/24/2016 23:22:37 Confirmation # [id number] Dictation # [id number]
== END 2016-11-24 20:50 | disposition home or self-care (01) | DRG 560 ==
LOC: H.TCU 16:07
PROVIDERS: ADMIT Family Medicine; ATTEND Family Medicine
PROC: F07L0FZ Range of Motion and Joint Mobility Treatment of Musculoskeletal System - Lower Back / Lower Extremity using Assistive, Adaptive, Supportive or Protective Equipment (ICD-10-PCS; principal; 2016-11-09)
PROC: F07K0FZ Range of Motion and Joint Mobility Treatment of Musculoskeletal System - Upper Back / Upper Extremity using Assistive, Adaptive, Supportive or Protective Equipment (ICD-10-PCS; 2016-11-09)
PROC: F07Z9FZ Gait Training/Functional Ambulation Treatment using Assistive, Adaptive, Supportive or Protective Equipment (ICD-10-PCS; 2016-11-09)
PROC: F07L6FZ Therapeutic Exercise Treatment of Musculoskeletal System - Lower Back / Lower Extremity using Assistive, Adaptive, Supportive or Protective Equipment (ICD-10-PCS; 2016-11-09)
PROC: F08Z4FZ Home Management Treatment using Assistive, Adaptive, Supportive or Protective Equipment (ICD-10-PCS; 2016-11-09)
DX: S52.502D Unspecified fracture of the lower end of left radius, subsequent encounter for closed fracture with routine healing (principal); A04.7 Enterocolitis due to Clostridium difficile; N18.4 Chronic kidney disease, stage 4 (severe); E87.2 Acidosis; E11.22 Type 2 diabetes mellitus with diabetic chronic kidney disease; N13.6 Pyonephrosis; E87.1 Hypo-osmolality and hyponatremia; B37.49 Other urogenital candidiasis; W19.XXXD Unspecified fall, subsequent encounter; N30.90 Cystitis, unspecified without hematuria; E11.65 Type 2 diabetes mellitus with hyperglycemia; D63.1 Anemia in chronic kidney disease; I12.9 Hypertensive chronic kidney disease with stage 1 through stage 4 chronic kidney disease, or unspecified chronic kidney disease; E78.5 Hyperlipidemia, unspecified; J44.9 Chronic obstructive pulmonary disease, unspecified; F41.9 Anxiety disorder, unspecified; F32.9 Major depressive disorder, single episode, unspecified; Z91.14 Patient's other noncompliance with medication regimen; E87.5 Hyperkalemia; B96.1 Klebsiella pneumoniae [K. pneumoniae] as the cause of diseases classified elsewhere; N32.3 Diverticulum of bladder; N39.41 Urge incontinence; N83.201 Unspecified ovarian cyst, right side

== ENCOUNTER 2017-01-13 21:10 | Inpatient (IN) | payer MEDICARE ==
[2017-01-13 21:10] VITALS: BMI 32.5
[2017-01-13 22:24] LABS: ALBUMIN 4.1 g/dL (3.5-5.0); ALT/SGPT 21 U/L (9-52); AST/SGOT 23 U/L (14-36); BLOOD UREA NITROGEN 37 mg/dl (7-17); CALCIUM 9.8 mg/dL (8.4-10.2); GFR AFRICAN-AMERICAN 23; GFR NON-AFRICAN AMERICAN 19; MAGNESIUM 2.1 MG/DL (1.6-2.3)
[2017-01-13] MEDS ORDERED: Sodium Chloride 0.9% 1,000 ML IV STA (22:28)
[2017-01-13 22:34] LABS: B-TYPE NATRIURETIC PEPTIDE 515 pg/ml (0-900)
[2017-01-13 22:47] LABS: BASO # 0.1 K/uL (0.0-0.2); BASO % 0.6 % (0.0-2.0); EOS # 0.1 K/uL (0.0-0.7); EOS % 0.6 % (0.0-4.0); HEMOGLOBIN 12.9 g/dL (12.0-16.0); LYMPH # 2.4 K/uL (1.0-4.3); MEAN CORPUSCULAR HEMOGLOBIN 24.8 pg (27.0-31.0); MEAN CORPUSCULAR HGB CONC 31.4 g/dL (33.0-37.0); MEAN PLATELET VOLUME 7.6 fl (7.2-11.7); MONO % 7.1 % (0.0-10.0); NEUT # 11.2 K/uL (1.8-7.0); NEUT % 75.7 % (50.0-75.0); NRBC % 0.1 % (0.0-0.0); RBC 5.21 Mil/uL (3.80-5.20); RED CELL DISTRIBUTION WIDTH 15.7 % (11.5-14.5); WHITE BLOOD COUNT 14.8 K/uL (4.8-10.8)
--- NOTE | 2017-01-13 23:16 | ED PDOC ---
HPI: General Adult Time Seen by Provider: 01/13/17 21:19 Chief Complaint (Nursing): Weakness/Neurological Deficit Chief Complaint (Provider): weakness History Per: Patient, Family Onset/Duration Of Symptoms: Days (3), Sudden Onset, Persistent Additional Complaint(s): Pt reports that she slid off her bed at home 2 nights ago and was not able to get up because she was just too weak. Denies loss of consciousness or head injury Denies focal weakness Family reports that she initially refused to have ambulance called which is why they didn't come earlier. However they also report that they didn't call earlier because they didn't know she was on the ground despite living in the same home. Has not eaten or drunk anything for the last 24 hours either. Past Medical History Reviewed: Historical Data, Nursing Documentation, Vital Signs Vital Signs: Last Vital Signs Temp 98.7 F 01/13/17 21:14 Pulse 98 H 01/13/17 21:14 Resp 18 01/13/17 21:14 BP 140/78 01/13/17 21:14 Pulse Ox 98 01/13/17 23:30 - Medical History PMH: Anxiety, Arthritis, COPD, Depression, Diabetes (type II), HTN, Hypercholesterolemia, Pneumonia, Chronic Kidney Disease Denies: HIV - Surgical History Surgical History: Tonsillectomy - Family History Family History: States: Unknown Family Hx - Social History Current smoker - smoking cessation education provided: No - Home Medications Home Medications: Ambulatory Orders Medication Instructions Recorded Aspirin [Ecotrin] 81 mg PO DAILY #0 tabec 11/15/15 Atorvastatin [Lipitor] 40 mg PO DAILY #0 tab 11/15/15 Cyanocobalamin [Vitamin B12 1000 1 tab PO DAILY #0 tab 11/15/15 mcg Tab] Metoprolol Tartrate [Lopressor] 12.5 mg PO Q12 #0 tab 11/15/15 Multimineral/Multivitamin 1 tab PO DAILY #0 tab 11/15/15 [Therapeutic-M Tab] Multivit-Min/FA/Lycopen/Lutein 1 tab PO DAILY #0 tablet 11/15/15 [Centrum Silver Tablet] Repaglinide [Prandin] 2 mg PO TIDWM #0 tab 11/15/15 Valsartan [Diovan] 80 mg PO DAILY #0 tab 11/15/15 Sevelamer Carbonate [Renvela] 800 mg PO TID 01/04/16 Acetaminophen [Tylenol 325mg tab] 650 mg PO Q6H PRN #0 tab 01/08/16 PARoxetine [Paxil] 20 mg PO DAILY #0 tab 01/08/16 Cyanocobalamin [Vitamin B12 100 100 mcg PO DAILY 08/31/16 mcg Tab] Multivit-Min/Iron/Folic/Lutein 1 tab PO DAILY 08/31/16 [Centrum Silver Women Tablet] Potassium Chloride [K-Dur 20 mEq 20 meq PO DAILY 08/31/16 ER Tab] Sodium Bicarbonate Tab 650 mg PO DAILY 08/31/16 Ferrous Sulfate [Feosol] 325 mg PO BID #60 tab 09/03/16 GlipiZIDE SR [Glucotrol XL] 10 mg PO ACBD@0730,1630 #60 tab 09/03/16 Insulin Detemir [Levemir] 24 units SC HS #1 vial 09/03/16 Insulin Lispro [Humalog Kwikpen 12 unit SQ AC #1 insuln.pen 09/03/16 U-100] Nitrofurantoin Macrocrystals 100 mg PO BID 7 Days 09/03/16 [Macrobid] Pen Needle, Diabetic [Insulin Pen 1 each ACHS #90 dis.needle 09/03/16 Needle] Acetaminophen [Tylenol 325mg tab] 650 mg PO Q6 PRN tab 11/09/16 Dextrose 50% [Dextrose 50% Inj] 0 ml IV STAT PRN syr 11/09/16 Dextrose Oral [Glutose 15] 0 gm PO ONCE PRN 11/09/16 Docusate Sodium/Sennosides A 2 tab PO HS tab 11/09/16 [Senokot S 50 MG-8.6 MG] Glucagon [Glucagen Diagnostic Kit] 0 mg IM STAT PRN vial 11/09/16 Heparin 5,000 units SC Q12 vial 11/09/16 Morphine 2 mg IVP Q4 PRN 11/09/16 Ondansetron [Zofran Inj] 4 mg IVP Q4 PRN vial 11/09/16 PARoxetine [Paxil] 20 mg PO DAILY tab 11/09/16 Phenol 1.4% Topical [Phenaseptic 1 spry MT Q2 PRN bottle 11/09/16 1.4% Throat [place]] Repaglinide [Prandin] 2 mg PO TIDWM tab 11/09/16 Saccharomyces Boulardi [Florastor] 250 mg PO BID cap 11/09/16 - Allergies Allergies/Adverse Reactions: Allergies Allergy/AdvReac Type Severity Reaction Status Date / Time No Known Allergies Allergy Verified 01/04/16 20:19 Review of Systems ROS Statement: Except As Marked, All Systems Reviewed And Found Negative Constitutional: Positive for: Weakness Cardiovascular: Negative for: Chest Pain Skin: Negative for: Rash, Lesions Physical Exam - Reviewed Nursing Documentation Reviewed: Yes Vital Signs Reviewed: Yes - Physical Exam Appears: Positive for: No Acute Distress (unkempt malodorous) Head Exam: Positive for: ATRAUMATIC, NORMOCEPHALIC Skin: Positive for: Warm, Dry, Pallor Eye Exam: Positive for: EOMI, PERRL ENT: Positive for: Other (dry mucus membranes) Neck: Positive for: Painless ROM, Supple Cardiovascular/Chest: Positive for: Regular Rate, Rhythm, Chest Non Tender. Negative for: Murmur Respiratory: Positive for: Normal Breath Sounds. Negative for: Wheezing Gastrointestinal/Abdominal: Positive for: Bowel Sounds, Soft. Negative for: Tenderness Extremity: Positive for: Normal ROM, Pedal Edema, Other (LUE in old cast, LEFT hand contracture? limited ROM of fingers) Lymphatic: Negative for: Adenopathy Neurologic/Psych: Positive for: Alert. Negative for: Motor/Sensory Deficits - Laboratory Results Result Diagrams: 01/13/17 21:37 01/13/17 21:58 - ECG ECG Rhythm: Positive for: Normal QRS, Sinus Rhythm, Nonspecific Changes ( similar to previous ekg in october) O2 Sat by Pulse Oximetry: 98 Pulse Ox Interpretation: Normal - Radiology X-Ray: Interpreted by Me X-Ray Interpretation: No Acute Disease - Progress ED Course And Treament: 76yo s/p fall and prolonged length of time on ground, with worsening renal insufficiency, dehydration, inability to ambulate. Disposition - Clinical Impression Clinical Impression: Dehydration, Acute on chronic renal failure Discussed With : Fernando Orlando Doctor Will See Patient In The: ED Counseled Patient/Family Regarding: Studies Performed, Diagnosis - Disposition Disposition Time: 23:00 Condition: FAIR - Pt Status Changed To: Hospital Disposition Of: Inpatient - Admit Certification Admit to Inpatient:: After my assessment, the patient will require hospitalization for at least two midnights. This is because of the severity of symptoms shown, intensity of services needed, and/or the medical risk in this patient being treated as an outpatient. - POA Present On Arrival: Falls Or Trauma, Poor Glycemic Control
[2017-01-14] MEDS ORDERED: Docusate-Senna 50 mg-8.6 mg Tab PO PRN
--- NOTE | 2017-01-14 00:28 | CP.PCM.HP ---
<Fernando Orlando - Last Filed: 01/14/17 06:29> History of Present Illness - History of Present Illness History of Present Illness: 76 yo F w PMHx of uncontrolled DM, HTN, CKD, depression, Hydronephrosis, and L wrist fx s/p ORIF (Oct) is admitted due to dehydration and inexplicable fall in an elderly patient with CKD. She states being on the floor for the previous 2 days because she slid off of her bed and did not want to work to get back up. She did not eat or drink anything during this time, and she states that all of her voids were absorbed by her adult diaper. Her family denies knowing that she had fallen, despite living in the same home. They stressed that they live on the other side of the house and will sometimes not see the pt for extended periods. She denies any LOC, dizziness, lightheadedness, fevers/ chills, nausea, vomiting, or diarrhea. Her left wrist is wrapped, as the patient states Dr Carrizales saw her in [facility] in October, but that she did not follow up with him afterwards. She has some transportation issues and was not able to follow up in his office, such as a lapsed car inspection for 3 months. Otherwise , she denies any chest pain, SOB, dyspnea, cough, abdominal pain, hematuria, dysuria, hematochezia, melena, or other myalgias. PMD: Dr Boswell PMHx: uncontrolled DM, HTN, CKD Stage 4, depression, Hydronephrosis, and c difficile (Oct) PSHx: L/wrist fx s/p ORIF (Oct) NKDA SHx: lives w family Home Meds: -Aspirin [Ecotrin] 81 mg PO DAILY -Atorvastatin [Lipitor] 40 mg PO DAILY -Glipizide [Glipizide ER] 5 mg PO -Detemir [Levemir] 20 units SC HS -Metoprolol 12.5 mg PO Q12 -Multivitamin 1 tab PO DAILY -Paroxetine [Paxil] 20 mg PO DAILY -Repaglinide [Prandin] 2 mg PO TIDWM -Valsartan [Diovan] 80 mg PO DAILY -Lispro 10u before meals -Renagel 800mg TID Present on Admission - Present on Admission Any Indicators Present on Admission: Yes History of DVT/PE: No History of Uncontrolled Diabetes: Yes Urinary Catheter: No Decubitus Ulcer Present: No Review of Systems - Review of Systems All systems: reviewed and no additional remarkable complaints except (see HPI) Past Patient History - Infectious Disease Hx of Infectious Diseases: None - Past Medical History & Family History Past Medical History?: Yes - Past Social History Smoking Status: Never Smoked - CARDIAC Hx Hypercholesterolemia: Yes Hx Hypertension: Yes - PULMONARY Hx Chronic Obstructive Pulmonary Disease (COPD): Yes Hx Pneumonia: Yes - NEUROLOGICAL Hx Neurological Disorder: No - HEENT Hx HEENT Problems: Yes Other/Comment: uses eye glasses - RENAL Hx Chronic Kidney Disease: Yes - ENDOCRINE/METABOLIC Hx Endocrine Disorders: Yes Hx Diabetes Mellitus Type 2: Yes - HEMATOLOGICAL/ONCOLOGICAL Hx Human Immunodeficiency Virus (HIV): No - INTEGUMENTARY Hx Dermatological Problems: No - MUSCULOSKELETAL/RHEUMATOLOGICAL Hx Arthritis: Yes - GASTROINTESTINAL Hx Gastrointestinal Disorders: No - GENITOURINARY/GYNECOLOGICAL Hx Genitourinary Disorders: No - PSYCHIATRIC Hx Anxiety: Yes Hx Depression: Yes - SURGICAL HISTORY Hx Tonsillectomy: Yes - ANESTHESIA Hx Anesthesia: No Hx Anesthesia Reactions: No Hx Malignant Hyperthermia: No Meds Allergies/Adverse Reactions: Allergies Allergy/AdvReac Type Severity Reaction Status Date / Time No Known Allergies Allergy Verified 01/04/16 20:19 Physical Exam - Constitutional Appears: Non-toxic, No Acute Distress, Unkempt - Head Exam Head Exam: ATRAUMATIC, NORMOCEPHALIC - Eye Exam Eye Exam: EOMI Pupil Exam: PERRL - ENT Exam ENT Exam: Mucous Membranes Dry - Neck Exam Neck exam: Positive for: Full Rom - Respiratory Exam Respiratory Exam: Clear to Auscultation Bilateral, NORMAL BREATHING PATTERN. absent: Wheezes, Stridor - Cardiovascular Exam Cardiovascular Exam: REGULAR RHYTHM, +S1, +S2. absent: Bradycardia - GI/Abdominal Exam GI & Abdominal Exam: Normal Bowel Sounds, Soft. absent: Distended, Tenderness - Extremities Exam Extremities exam: Negative for: calf tenderness, pedal edema - Neurological Exam Neurological exam: Alert, CN II-XII Intact, Oriented x3 - Psychiatric Exam Psychiatric exam: Normal Affect, Normal Mood - Skin Skin Exam: Dry, Intact, Warm Results - Vital Signs Recent Vital Signs: Last Vital Signs Temp 98.7 F 01/13/17 21:14 Pulse 98 H 01/13/17 21:14 Resp 18 01/13/17 21:14 BP 140/78 01/13/17 21:14 Pulse Ox 98 01/13/17 23:31 - Labs Result Diagrams: 01/13/17 21:37 01/13/17 21:58 Assessment & Plan - Assessment and Plan (Free Text) Plan: 76 yo F w PMHx of uncontrolled DM, HTN, CKD, depression, Hydronephrosis, and L wrist fx s/p Oct ORIF is admitted due to dehydration in the setting of an elderly patient with worsened kidney disease 1) Dehydration s/p fall -Within setting of CKD Stage 4 and other comorbidities -FS upon ER presentation: 189 -BP 140s/70s -WBC: 14.8 -Afebrile -BNP: 515 -Renagel 800mg PO TID -Sodium Bicarb 650mg PO Daily -f/u Lactic Acid -f/u CBC in AM -f/u CMP in AM -f/u CXR -f/u CT Head -f/u PT/INR/PTT -f/u CPK -f/u BCx -f/u UCx 2) Previous Left Wrist Fx s/p October ORIF -Still Casted -States she did not follow up w Ortho in office -Occasional 'twinges' of pain -Tylenol 650mg PO PRN mild -Morphine 2mg IVP Q6H PRN moderate -f/u Ortho Consult 3) DM2 -Uncontrolled -ASA 81mg PO Daily -Atorvastatin 40mg PO Daily -Glipizide SR 5mg PO Daily -Prandin 20mg PO TIDWM -Levemir 20mg SC HS -Lispro 10mg SC BID -Lispro Sliding Scale -f/u FS ACHS 4) HTN -Metoprolol 12.5mg PO BID -Valsartan 80mg PO Daily 5) Depression -Paxil 20mg PO Daily 6) DVT Prophylaxis -SCDs for now <Jose Juan Boswell - Last Filed: 01/16/17 06:44> Results - Vital Signs Recent Vital Signs: Last Vital Signs Temp 98.6 F 01/16/17 00:00 Pulse 62 01/16/17 00:00 Resp 18 01/16/17 00:00 BP 105/64 01/16/17 00:00 Pulse Ox 95 01/16/17 00:00 - Labs Result Diagrams: 01/14/17 06:30 01/14/17 06:30 Labs: Laboratory Results - last 24 hr 01/15/17 01/15/17 01/15/17 06:00 06:00 10:54 POC Glucose (mg/dL) 172 H Vitamin B12 > 1000 H 25-OH Vitamin D Total 29.1 L Folate 8.2 01/15/17 01/15/17 16:37 21:53 POC Glucose (mg/dL) 267 H 80 Vitamin B12 25-OH Vitamin D Total Folate Attending/Attestation - Attestation I have personally seen and examined this patient.: Yes I have fully participated in the care of the patient.: Yes I have reviewed all pertinent clinical information: Yes
--- NOTE | 2017-01-14 03:25 | CT ---
EXAM: CT Head Without Intravenous Contrast CLINICAL HISTORY: 76 years old, female; Injury or trauma; Fall; Initial encounter; Concussion / head injury; Without loss of consciousness; Additional info: Inexplicable fall TECHNIQUE: Axial computed tomography images of the head/brain without intravenous contrast. This CT exam was performed using one or more of the following dose reduction techniques: automated exposure control, adjustment of the mA and/or kV according to patient size, and/or use of iterative reconstruction technique. Coronal and sagittal reformatted images were created and reviewed. COMPARISON: No relevant prior studies available. FINDINGS: Brain: [id number] atrophy. No intracranial hemorrhage. No mass. Few scattered foci of decreased attenuation within periventricular/subcortical white matter. No edema. Ventricles: No hydrocephalus. Bones/joints: No acute fracture. Soft tissues: Unremarkable. Vasculature: Mild atherosclerotic disease of intracranial arteries. Sinuses: Mild focal mucosal thickening and/or fluid of LEFT sphenoid sinus. Scattered minimal mucosal thickening of ethmoid sinuses. Mastoid air cells: Partial opacification of RIGHT mastoid. Orbits: Unremarkable as visualized. IMPRESSION: 1. No intracranial hemorrhage. 2. Nonspecific white matter changes. 3. Sinus disease. 4. Mastoid disease. 5. Incidental/non-acute findings are described above.
[2017-01-14 08:18] LABS: HEMOGLOBIN 11.9 g/dL (12.0-16.0); MEAN CELL VOLUME 79.3 fl (81.0-99.0); MEAN CORPUSCULAR HGB CONC 31.5 g/dL (33.0-37.0); RBC 4.78 Mil/uL (3.80-5.20); RED CELL DISTRIBUTION WIDTH 15.6 % (11.5-14.5); WHITE BLOOD COUNT 11.5 K/uL (4.8-10.8)
[2017-01-14 08:23] LABS: ALB/GLOB RATIO 0.9 (1.0-2.1); ALBUMIN 3.6 g/dL (3.5-5.0); CALCIUM 9.3 mg/dL (8.4-10.2)
[2017-01-14 08:31] LABS: TROPONIN I 0.016 ng/mL (0.00-0.120)
[2017-01-14] MEDS: Multivitamin With Minerals Tab PO SCH (09:23)
[2017-01-14] MEDS: GlipiZIDE 5 mg SR Tab PO SCH (09:23)
[2017-01-14] MEDS: Insulin Lispro (humaLOG) 100 Units/ml Inj SC SCH ×6 (09:25→22:00)
--- NOTE | 2017-01-14 09:44 | CARD ---
APPROVED REPORT EKG Measurement Heart [id number] ID [id number] <Conclusion> Normal sinus rhythm Inferior infarct, age undetermined Cannot rule out Anterior infarct, age undetermined Abnormal ECG
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
--- NOTE | 2017-01-14 10:46 | RAD ---
HISTORY: weakness COMPARISON: Comparison chest 11/12/2016 FINDINGS: LUNGS: Poor inspiration with low lung volumes, mild crowded bronchovascular markings and mild bibasilar atelectasis PLEURA: No significant pleural effusion identified, no pneumothorax apparent. CARDIOVASCULAR: Normal. OSSEOUS STRUCTURES: No significant abnormalities. VISUALIZED UPPER ABDOMEN: Normal. OTHER FINDINGS: None. IMPRESSION: Poor inspiration with low lung volumes, mild crowded bronchovascular markings and mild bibasilar atelectasis
[2017-01-14 13:05] LABS: INR 1.1 (0.9-1.2); PARTIAL THROMBOPLASTIN TIME 29.7 Seconds (25.6-37.1)
--- NOTE | 2017-01-14 13:56 | CP.PCM.PCO ---
Assessment/Plan - Assessment and Plan (Free Text) Assessment: I saw and evaluated the patient. I discussed the case with the resident and agree with the findings and plan as documented in the resident's note. Pt says it was the anniversary of her 's . She went to bed for 2 weeks because she was overwhelmed by all the memories. pt never followed up with ortho very disheveled. await PT, ortho and SW evaluation
--- NOTE | 2017-01-14 15:01 | CP.PCM.CON ---
History of Present Illness - History of Present Illness History of Present Illness: id 76 YO FEMALE cc- S/P orif l DISTAL RADIUS FX hpi- 76 YO FEMALE WELL KNOWN TO MY OPRACTICE, PRESENTS AFTER SUCCESSFUL orif DISTAL RADIUS FX Past Patient History - Infectious Disease Hx of Infectious Diseases: None - Past Medical History & Family History Past Medical History?: Yes - Past Social History Smoking Status: Never Smoked - CARDIAC Hx Hypercholesterolemia: Yes Hx Hypertension: Yes - PULMONARY Hx Chronic Obstructive Pulmonary Disease (COPD): Yes Hx Pneumonia: Yes - NEUROLOGICAL Hx Neurological Disorder: No - HEENT Hx HEENT Problems: Yes Other/Comment: uses eye glasses - RENAL Hx Chronic Kidney Disease: Yes - ENDOCRINE/METABOLIC Hx Endocrine Disorders: Yes Hx Diabetes Mellitus Type 2: Yes - HEMATOLOGICAL/ONCOLOGICAL Hx Human Immunodeficiency Virus (HIV): No - INTEGUMENTARY Hx Dermatological Problems: No - MUSCULOSKELETAL/RHEUMATOLOGICAL Hx Arthritis: Yes - GASTROINTESTINAL Hx Gastrointestinal Disorders: No - GENITOURINARY/GYNECOLOGICAL Hx Genitourinary Disorders: No - PSYCHIATRIC Hx Anxiety: Yes Hx Depression: Yes - SURGICAL HISTORY Hx Tonsillectomy: Yes - ANESTHESIA Hx Anesthesia: No Hx Anesthesia Reactions: No Hx Malignant Hyperthermia: No Meds Allergies/Adverse Reactions: Allergies Allergy/AdvReac Type Severity Reaction Status Date / Time No Known Allergies Allergy Verified 01/04/16 20:19 - Medications Medications: Current Medications Acetaminophen (Tylenol 325mg Tab) 650 mg PO Q6 PRN PRN Reason: Pain, Mild (1-3) Aspirin (Ecotrin) 81 mg PO DAILY [facility] Last Admin: 01/14/17 09:25 Dose: 81 mg Atorvastatin Calcium (Lipitor) 40 mg PO DAILY [facility] Last Admin: 01/14/17 09:23 Dose: 40 mg Glipizide (Glucotrol Xl) 5 mg PO DAILY [facility] Last Admin: 01/14/17 09:23 Dose: 5 mg Heparin Sodium (Porcine) (Heparin) 5,000 units SC Q12 [facility] PRN Reason: Protocol Insulin Detemir (Levemir) 20 units SC HS [facility] Insulin Human Lispro (Humalog) 10 units SC BID [facility] Last Admin: 01/14/17 09:26 Dose: 10 units Insulin Human Lispro (Humalog) 0 units SC ACHS [facility] PRN Reason: Protocol Last Admin: 01/14/17 12:52 Dose: 4 units Metoprolol Tartrate (Lopressor) 12.5 mg PO Q12 [facility] Last Admin: 01/14/17 09:23 Dose: 12.5 mg Morphine Sulfate (Morphine) 2 mg IVP Q6 PRN PRN Reason: Pain, moderate (4-7) Multivitamins/Minerals (Therapeutic-M Tab) 1 tab PO DAILY [facility] Last Admin: 01/14/17 09:23 Dose: 1 tab Paroxetine HCl (Paxil) 20 mg PO DAILY [facility] Last Admin: 01/14/17 09:24 Dose: 20 mg Repaglinide (Prandin) 2 mg PO TIDWM [facility] Last Admin: 01/14/17 12:51 Dose: 2 mg Senna/Docusate Sodium (Senokot S 50 Mg-8.6 Mg) 2 tab PO HS PRN PRN Reason: Constipation Sevelamer HCl (Renagel) 800 mg PO TID [facility] Last Admin: 01/14/17 12:51 Dose: 800 mg Sodium Bicarbonate (Sodium Bicarbonate Tab) 650 mg PO DAILY [facility] Last Admin: 01/14/17 09:24 Dose: 650 mg Valsartan (Diovan) 80 mg PO DAILY [facility] Last Admin: 01/14/17 09:25 Dose: 80 mg Physical Exam - Skin Additional comments: oBJECTIVE mUSCULOSKEKLTAL SPLINT REMOVED n/v INTACT PT WITH NO DISCOMOPFRT NWHATSOEVER rom - RSTERICTED EXPECTED ORTHOPEDICALLY STABLE Results - Vital Signs Recent Vital Signs: Last Vital Signs Temp 98.4 F 01/14/17 07:38 Pulse 68 01/14/17 07:38 Resp 20 01/14/17 07:38 BP 101/63 01/14/17 07:38 Pulse Ox 97 01/14/17 07:38 - Labs Result Diagrams: 01/14/17 06:30 01/14/17 06:30 Labs: Laboratory Results - last 24 hr 01/14/17 01/14/17 01/14/17 02:44 05:39 06:00 WBC RBC Hgb Hct MCV MCH MCHC RDW Plt Count Sodium Potassium Chloride Carbon Dioxide Anion Gap BUN Creatinine Est GFR ( Amer) Est GFR (Non-Af Amer) POC Glucose (mg/dL) 181 H 179 H Random Glucose Calcium Total Bilirubin AST ALT Alkaline Phosphatase Total Creatine Kinase 69 Troponin I Total Protein Albumin Globulin Albumin/Globulin Ratio 01/14/17 01/14/17 06:30 06:30 WBC 11.5 H RBC 4.78 Hgb 11.9 L Hct 37.9 MCV 79.3 L MCH 25.0 L MCHC 31.5 L RDW 15.6 H Plt Count 440 H Sodium 137 Potassium 4.6 Chloride 107 Carbon Dioxide 17 L Anion Gap 18 BUN 36 H Creatinine 2.5 H Est GFR ( Amer) 23 Est GFR (Non-Af Amer) 19 POC Glucose (mg/dL) Random Glucose 176 H Calcium 9.3 Total Bilirubin 0.3 AST 17 ALT 21 Alkaline Phosphatase 123 Total Creatine Kinase Troponin I 0.0160 Total Protein 7.5 Albumin 3.6 Globulin 3.8 Albumin/Globulin Ratio 0.9 L - Impressions Impression: xRAY- HEALED DISTAL RADIUS FX WITH HARDWARE IN NACCEPTABLE POSIITON Assessment & Plan - Assessment and Plan (Free Text) Assessment: S/P orif l DISTAL RADIUS FX (HEALED) p- PHYSION
--- NOTE | 2017-01-14 16:49 | RAD ---
PROCEDURE: Left Wrist Radiographs. HISTORY: H/O FRACTURE COMPARISON: Comparison made with prior study 11/07/2016. FINDINGS: BONES: Re- demonstrated are ORIF changes on distal left radius. Fixation plate attached to the palm are/ventral surface of the distal left radius reducing a distal left radial fracture again noted. . Hardware appears intact without evidence of loosening or infection satisfactory alignment. Metallic skin closure javi along the ventral/ palmar surface unchanged. Questionable old unfused fracture deformity of the ulna styloid. Mild diffuse demineralization JOINTS: Multi articular degenerative osteoarthritis again noted. SOFT TISSUES: Normal. OTHER FINDINGS: None. IMPRESSION: Stable ORIF changes distal left radius. Satisfactory alignment. . No evidence of hardware failure. Multi articular DJD. Diffuse demineralization
[2017-01-14 18:48] LABS: SQUAMOUS EPITHIAL 1 /hpf (0-5); URINE BACTERIA RARE (<OCC); URINE BILIRUBIN NEGATIVE (NEGATIVE); URINE BLOOD MODERATE (NEGATIVE); URINE CLARITY CLOUDY (Clear); URINE COLOR YELLOW (YELLOW); URINE GLUCOSE (UA) NEG (Normal); URINE HYALINE CAST 0-2 /hpf (0-2); URINE LEUKOCYTE ESTERASE LARGE Leu/uL (Negative); URINE NITRATE POSITIVE (NEGATIVE); URINE PROTEIN 100 mg/dL (NEGATIVE); URINE UROBILINOGEN 0.2-1.0 mg/dL (0.2-1.0); WBC CLUMPS MANY /hpf
[2017-01-14] MEDS ORDERED: INSULIN DETEMIR 20 UNIT SC SCH (22:00)
[2017-01-14] MEDS: Insulin Detemir 100 Units/ml Inj SC SCH (22:44)
[2017-01-15] MEDS: Multivitamin With Minerals Tab PO SCH (08:55)
[2017-01-15] MEDS: GlipiZIDE 5 mg SR Tab PO SCH (08:55)
[2017-01-15] MEDS: Insulin Lispro (humaLOG) 100 Units/ml Inj SC SCH ×6 (08:56→22:30)
--- NOTE | 2017-01-15 11:24 | CP.PCM.CON ---
History of Present Illness - History of Present Illness History of Present Illness: psychiatry consult ordered by family medicine reason: depression/self neglect? on paxil cc: i don't need a psychiatrist hpi: 76 yo female with history of depression and taking paxil. she is admitted for dehydration after a fall. pt states she couldn't get up and sat on the floor for 2 days prior to having her son call the police. she stated "i'm ok, i wear depends and i have my tv on." pt reports that she also did not f/u with her orthopedic appointment and had cast on since November. she states "i couldn't drive there with an inspection." pt does not seem any problems with this level of self neglect and becomes irritated when attempting to discuss it as a symptom of depression. 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 in aug she was depressed because of anniversary of her mother's . pt states "it's hard when the people in your life are dying and you are left" pt refuses to consider therapy or to see a psychiatry. it is not clear how pt can care for self and if her information about her social interactions are accurate. she states she lives with her son, but he is not feeling well and she thinks he may also need to be in the hospital. pt wants to go home now. past psych: on paxil, reports distant history of treatment. medical as per family med substance use/trauma denies mse: alert, oriented x 3. mood is depressed. affect constricted. pt is evasive and irritable. she is denying any suicidal or homicidal thoughts. she denies any a/v hallucinations. memory is grossly intact. she is unkempt. poor i/j. assessment: mdd, recurrent severe without psychosis recommendation: continue paxil would recommend team contacting son and possibly APS regarding safety of pt in the home she could benefit from inpt hospitalization, but is refusing treatment. however , pt is not caring for self and appears to be medically compromised secondary to self neglect. pt has had similar presentation in the past and the self- neglect seems to be worsening. there for i would contact [facility] for screening i have tried to convince pt to sign into hospital as a voluntary pt, but she is upset and refusing. Past Patient History - Infectious Disease Hx of Infectious Diseases: None - Past Medical History & Family History Past Medical History?: Yes - Past Social History Smoking Status: Never Smoked - CARDIAC Hx Hypercholesterolemia: Yes Hx Hypertension: Yes - PULMONARY Hx Chronic Obstructive Pulmonary Disease (COPD): Yes Hx Pneumonia: Yes - NEUROLOGICAL Hx Neurological Disorder: No - HEENT Hx HEENT Problems: Yes Other/Comment: uses eye glasses - RENAL Hx Chronic Kidney Disease: Yes - ENDOCRINE/METABOLIC Hx Endocrine Disorders: Yes Hx Diabetes Mellitus Type 2: Yes - HEMATOLOGICAL/ONCOLOGICAL Hx Human Immunodeficiency Virus (HIV): No - INTEGUMENTARY Hx Dermatological Problems: No - MUSCULOSKELETAL/RHEUMATOLOGICAL Hx Arthritis: Yes - GASTROINTESTINAL Hx Gastrointestinal Disorders: No - GENITOURINARY/GYNECOLOGICAL Hx Genitourinary Disorders: No - PSYCHIATRIC Hx Anxiety: Yes Hx Depression: Yes - SURGICAL HISTORY Hx Tonsillectomy: Yes - ANESTHESIA Hx Anesthesia: No Hx Anesthesia Reactions: No Hx Malignant Hyperthermia: No Meds Allergies/Adverse Reactions: Allergies Allergy/AdvReac Type Severity Reaction Status Date / Time No Known Allergies Allergy Verified 01/04/16 20:19 - Medications Medications: Current Medications Acetaminophen (Tylenol 325mg Tab) 650 mg PO Q6 PRN PRN Reason: Pain, Mild (1-3) Aspirin (Ecotrin) 81 mg PO DAILY [facility] Last Admin: 01/15/17 08:56 Dose: 81 mg Atorvastatin Calcium (Lipitor) 40 mg PO DAILY [facility] Last Admin: 01/14/17 09:23 Dose: 40 mg Glipizide (Glucotrol Xl) 5 mg PO DAILY [facility] Last Admin: 01/15/17 08:55 Dose: 5 mg Heparin Sodium (Porcine) (Heparin) 5,000 units SC Q12 [facility] PRN Reason: Protocol Insulin Detemir (Levemir) 20 units SC HS [facility] Last Admin: 01/14/17 22:44 Dose: 20 units Insulin Human Lispro (Humalog) 10 units SC BID [facility] Last Admin: 01/15/17 08:56 Dose: 10 units Insulin Human Lispro (Humalog) 0 units SC ACHS [facility] PRN Reason: Protocol Last Admin: 01/15/17 08:57 Dose: 2 units Metoprolol Tartrate (Lopressor) 12.5 mg PO Q12 [facility] Last Admin: 01/15/17 08:54 Dose: 12.5 mg Morphine Sulfate (Morphine) 2 mg IVP Q6 PRN PRN Reason: Pain, moderate (4-7) Multivitamins/Minerals (Therapeutic-M Tab) 1 tab PO DAILY [facility] Last Admin: 01/15/17 08:55 Dose: 1 tab Paroxetine HCl (Paxil) 20 mg PO DAILY [facility] Last Admin: 01/15/17 08:55 Dose: 20 mg Repaglinide (Prandin) 2 mg PO TIDWM [facility] Last Admin: 01/15/17 08:55 Dose: 2 mg Senna/Docusate Sodium (Senokot S 50 Mg-8.6 Mg) 2 tab PO HS PRN PRN Reason: Constipation Sevelamer HCl (Renagel) 800 mg PO TID [facility] Last Admin: 01/15/17 08:55 Dose: 800 mg Sodium Bicarbonate (Sodium Bicarbonate Tab) 650 mg PO DAILY [facility] Last Admin: 01/15/17 08:54 Dose: 650 mg Valsartan (Diovan) 80 mg PO DAILY [facility] Last Admin: 01/15/17 08:56 Dose: 80 mg Results - Vital Signs Recent Vital Signs: Last Vital Signs Temp 98.2 F 01/15/17 07:51 Pulse 61 01/15/17 07:51 Resp 18 01/15/17 07:51 BP 105/60 01/15/17 07:51 Pulse Ox 98 01/15/17 07:51 - Labs Result Diagrams: 01/14/17 06:30 01/14/17 06:30 Labs: Laboratory Results - last 24 hr 01/14/17 01/14/17 01/14/17 10:25 16:06 21:20 POC Glucose (mg/dL) 290 H 133 H 150 H Vitamin B12 01/15/17 01/15/17 01/15/17 05:15 06:00 10:54 POC Glucose (mg/dL) 165 H 172 H Vitamin B12 > 1000 H
--- NOTE | 2017-01-15 12:01 | CP.PCM.PN ---
Subjective - Date & Time of Evaluation Date of Evaluation: 01/15/17 Time of Evaluation: 11:55 - Subjective Subjective: S-pt comfortable no cvomplaints re L wrist Objective - Vital Signs/Intake and Output Vital Signs (last 24 hours): Temp Pulse Resp BP Pulse Ox 98.2 F 61 18 105/60 98 01/15/17 07:51 01/15/17 07:51 01/15/17 07:51 01/15/17 07:51 01/15/17 07:51 - Medications Medications: Current Medications Acetaminophen (Tylenol 325mg Tab) 650 mg PO Q6 PRN PRN Reason: Pain, Mild (1-3) Aspirin (Ecotrin) 81 mg PO DAILY [facility] Last Admin: 01/15/17 08:56 Dose: 81 mg Atorvastatin Calcium (Lipitor) 40 mg PO DAILY [facility] Last Admin: 01/14/17 09:23 Dose: 40 mg Glipizide (Glucotrol Xl) 5 mg PO DAILY [facility] Last Admin: 01/15/17 08:55 Dose: 5 mg Heparin Sodium (Porcine) (Heparin) 5,000 units SC Q12 [facility] PRN Reason: Protocol Insulin Detemir (Levemir) 20 units SC HS [facility] Last Admin: 01/14/17 22:44 Dose: 20 units Insulin Human Lispro (Humalog) 10 units SC BID [facility] Last Admin: 01/15/17 08:56 Dose: 10 units Insulin Human Lispro (Humalog) 0 units SC ACHS [facility] PRN Reason: Protocol Last Admin: 01/15/17 08:57 Dose: 2 units Metoprolol Tartrate (Lopressor) 12.5 mg PO Q12 [facility] Last Admin: 01/15/17 08:54 Dose: 12.5 mg Morphine Sulfate (Morphine) 2 mg IVP Q6 PRN PRN Reason: Pain, moderate (4-7) Multivitamins/Minerals (Therapeutic-M Tab) 1 tab PO DAILY [facility] Last Admin: 01/15/17 08:55 Dose: 1 tab Paroxetine HCl (Paxil) 20 mg PO DAILY [facility] Last Admin: 01/15/17 08:55 Dose: 20 mg Repaglinide (Prandin) 2 mg PO TIDWM [facility] Last Admin: 01/15/17 08:55 Dose: 2 mg Senna/Docusate Sodium (Senokot S 50 Mg-8.6 Mg) 2 tab PO HS PRN PRN Reason: Constipation Sevelamer HCl (Renagel) 800 mg PO TID [facility] Last Admin: 01/15/17 08:55 Dose: 800 mg Sodium Bicarbonate (Sodium Bicarbonate Tab) 650 mg PO DAILY [facility] Last Admin: 01/15/17 08:54 Dose: 650 mg Valsartan (Diovan) 80 mg PO DAILY [facility] Last Admin: 01/15/17 08:56 Dose: 80 mg - Labs Labs: 01/14/17 06:30 01/14/17 06:30 PT 12.0 Seconds (9.8-13.1) 01/13/17 12:00 INR 1.1 (0.9-1.2) 01/13/17 12:00 APTT 29.7 Seconds (25.6-37.1) 01/13/17 12:00 - Skin Skin Exam: Warm - Additional Findings Additional findings: Objective stance/gaiot- defrred L wrist rom restricted, but not painful pt comfiortable N/V intact Xray- healed distal radial fx in acceptable position Assessment and Plan - Assessment and Plan (Free Text) Assessment: A-S/P orif l DISTAL RADIUS FX ORTHOPEDICALLY STABLE P- physio orthopedic ally stable for d/c
--- NOTE | 2017-01-15 14:46 | CP.PCM.PN ---
Subjective - Date & Time of Evaluation Date of Evaluation: 01/15/17 Time of Evaluation: 09:45 - Subjective Subjective: Patient seen and examined at bedside. She is laying upright in bed and appears disheveled, but in no acute distress. Her left wrist cast was removed by ortho yesterday and patient reports mild stiffness of the left wrist. She has not been out of bed but denies depressed mood or auditory/visual hallucinations. She further denies fevers, chills, chest pain, SOB, palpitations, abdominal pain , nausea or vomiting. Objective - Vital Signs/Intake and Output Vital Signs (last 24 hours): Temp Pulse Resp BP Pulse Ox 98.2 F 61 18 105/60 98 01/15/17 07:51 01/15/17 07:51 01/15/17 07:51 01/15/17 07:51 01/15/17 07:51 - Medications Medications: Current Medications Acetaminophen (Tylenol 325mg Tab) 650 mg PO Q6 PRN PRN Reason: Pain, Mild (1-3) Aspirin (Ecotrin) 81 mg PO DAILY [facility] Last Admin: 01/15/17 08:56 Dose: 81 mg Atorvastatin Calcium (Lipitor) 40 mg PO DAILY [facility] Last Admin: 01/15/17 12:31 Dose: 40 mg Glipizide (Glucotrol Xl) 5 mg PO DAILY [facility] Last Admin: 01/15/17 08:55 Dose: 5 mg Heparin Sodium (Porcine) (Heparin) 5,000 units SC Q12 [facility] PRN Reason: Protocol Insulin Detemir (Levemir) 20 units SC HS [facility] Last Admin: 01/14/17 22:44 Dose: 20 units Insulin Human Lispro (Humalog) 10 units SC BID [facility] Last Admin: 01/15/17 08:56 Dose: 10 units Insulin Human Lispro (Humalog) 0 units SC ACHS [facility] PRN Reason: Protocol Last Admin: 01/15/17 12:29 Dose: 2 units Metoprolol Tartrate (Lopressor) 12.5 mg PO Q12 [facility] Last Admin: 01/15/17 08:54 Dose: 12.5 mg Morphine Sulfate (Morphine) 2 mg IVP Q6 PRN PRN Reason: Pain, moderate (4-7) Multivitamins/Minerals (Therapeutic-M Tab) 1 tab PO DAILY [facility] Last Admin: 01/15/17 08:55 Dose: 1 tab Paroxetine HCl (Paxil) 20 mg PO DAILY [facility] Last Admin: 01/15/17 08:55 Dose: 20 mg Repaglinide (Prandin) 2 mg PO TIDWM [facility] Last Admin: 01/15/17 12:30 Dose: 2 mg Senna/Docusate Sodium (Senokot S 50 Mg-8.6 Mg) 2 tab PO HS PRN PRN Reason: Constipation Sevelamer HCl (Renagel) 800 mg PO TID [facility] Last Admin: 01/15/17 12:30 Dose: 800 mg Sodium Bicarbonate (Sodium Bicarbonate Tab) 650 mg PO DAILY [facility] Last Admin: 01/15/17 08:54 Dose: 650 mg Valsartan (Diovan) 80 mg PO DAILY [facility] Last Admin: 01/15/17 08:56 Dose: 80 mg - Labs Labs: 01/14/17 06:30 01/14/17 06:30 PT 12.0 Seconds (9.8-13.1) 01/13/17 12:00 INR 1.1 (0.9-1.2) 01/13/17 12:00 APTT 29.7 Seconds (25.6-37.1) 01/13/17 12:00 - Constitutional Appears: No Acute Distress, Unkempt - Head Exam Head Exam: ATRAUMATIC, NORMAL INSPECTION, NORMOCEPHALIC - Eye Exam Eye Exam: EOMI, PERRL - ENT Exam ENT Exam: Mucous Membranes Moist - Respiratory Exam Respiratory Exam: Clear to Ausculation Bilateral, NORMAL BREATHING PATTERN. absent: Rhonchi, Wheezes, Respiratory Distress - Cardiovascular Exam Cardiovascular Exam: REGULAR RHYTHM, RRR, +S1, +S2 - GI/Abdominal Exam GI & Abdominal Exam: Soft. absent: Tenderness - Extremities Exam Extremities Exam: absent: Calf Tenderness, Pedal Edema - Neurological Exam Neurological Exam: Alert, Awake, CN II-XII Intact, Oriented x3 - Psychiatric Exam Psychiatric exam: Normal Affect, Normal Mood. absent: Homicidal Ideation, Suicidal Ideation - Skin Skin Exam: Dry, Warm Additional comments: Seborrheic keratoses present over chest, abdomen, back, and arms. Assessment and Plan - Assessment and Plan (Free Text) Assessment: 76 y/o F with PMH including IDDM2, HTN, CKD, Depression, Left wrist fracture s/ p ORIF in 10/2016 admitted for dehydration and mechanical fall at home. Patient reported lying on floor at bedside for 2 days before requesting medical attention. During admission, patient has denied depression however psychiatry has been called to evaluate patient due to concern over possible self neglect. Plan: Weakness s/p mechanical fall -Likely partially due to dehydration, which has improved with IV fluids -Psychiatry consultation requested to evaluate for depression -Social service consult appreciated -PT/OT consult requested -Patient remains afebrile, leukocytosis improving ,11.5 today, chronic thrombocytosis improved compared to last admission -CMP wnl, CKD stage 4, CK wnl -EKG: NSR, inferior infarct of undetermined age -CXR: Poor inspiration with low lung volumes, mild crowded bronchovascular markings and mild bibasilar atelectasis -CT Head: No ICH, nonspecific white matter changes (see full report) -f/u Lactic Acid, PT/INR/PTT, BCx, UCx, Vit B12, Folate, Vit D History of Distal Left Radius Fracture s/p ORIF in October 2016 -Patient had failed to f/u after discharge from hospital on last admission -Ortho Consult appreciated by Dr. Carrizales, cast removed yesterday -Tylenol 650mg PO Q6H PRN mild pain, Morphine 2mg IVP Q6H PRN moderate pain Depression/Anxiety -Patient has previous history of depression and has been prescrived Paxil daily , although compliance is unclear -Patient currently denies any depressive mood, suicidal ideation or auditory/ visual hallucinations -Psychiatry consultation by Dr Cruz appreciated. Patient refused voluntary inpatient psychiatric admission -Continue Paxil 20mg PO Daily -Will attempt to contact patient's son and explore for disposition CKD Stage 4 (GFR 15-29) -stable, chronic -patient is at baseline with BUN/Cr 36/2.5 -avoid nephrotoxic drugs -f/u SPEP, UPEP IDDM2, with hyperglycemia -Uncontrolled, HbA1c 10.8 on 11/11/16 -Continue home meds (Glipizide SR 5mg PO Daily, Prandin 20mg PO TIDWM, Levemir 20mg SC HS, Lispro 10mg SC BID, ASA 81mg PO Daily) -Lispro Sliding Scale (medium dose scale -monitor POC glucose ACHS Hypertension -Controlled -Continue home meds (Metoprolol 12.5mg PO BID, Valsartan 80mg PO Daily) -Monitor BP Hyperlipidemia -Stable. Lipid panel 08/31/16: (Triglycerides 213, Cholesterol 108, LDL 36, HDL 25) -continue home med (Atorvastatin 40mg PO Daily) DVT Prophylaxis -Heparin 5,000 units SC Q12 -SCDs for now
[2017-01-15] MEDS: Insulin Detemir 100 Units/ml Inj SC SCH (22:31)
[2017-01-15 22:40] LABS: FOLATE 8.2 ng/mL
[2017-01-16 07:08] LABS: BASO # 0.1 K/uL (0.0-0.2); BASO % 0.5 % (0.0-2.0); EOS # 0.3 K/uL (0.0-0.7); EOS % 2.4 % (0.0-4.0); LYMPH # 3.1 K/uL (1.0-4.3); LYMPH % 25.3 % (20.0-40.0); MEAN CELL VOLUME 79.5 fl (81.0-99.0); MEAN CORPUSCULAR HEMOGLOBIN 25.1 pg (27.0-31.0); MEAN CORPUSCULAR HGB CONC 31.6 g/dL (33.0-37.0); MEAN PLATELET VOLUME 7.6 fl (7.2-11.7); MONO % 8.4 % (0.0-10.0); NEUT # 7.8 K/uL (1.8-7.0); NEUT % 63.4 % (50.0-75.0); RBC 4.38 Mil/uL (3.80-5.20); RED CELL DISTRIBUTION WIDTH 15.5 % (11.5-14.5); WHITE BLOOD COUNT 12.4 K/uL (4.8-10.8)
[2017-01-16 08:03] LABS: CALCIUM 9.2 mg/dL (8.4-10.2)
[2017-01-16] MEDS: Insulin Lispro (humaLOG) 100 Units/ml Inj SC SCH ×6 (08:50→23:23)
[2017-01-16] MEDS: GlipiZIDE 5 mg SR Tab PO SCH (08:58)
[2017-01-16] MEDS: Multivitamin With Minerals Tab PO SCH (08:58)
--- NOTE | 2017-01-16 09:00 | PQF GENQUE ---
Dr. Boswell, In agreement with ER MD dx. of Acute on Chronic CKD? OR: Disagree OR:Other explanation of clinical finding ER slid off her bed at home 2 nights ago and was not able to get up because she was just too weak;not eaten or drunk anything for the last 24 hrs. ;unkept, dry mucus membranes Imp.: Dehydration, Acute on chronic renal failure -Present On Arrival: Falls Or Trauma, Poor Glycemic Control H and P: PMHx of uncontrolled DM, HTN, CKD, depression, Hydronephrosis, and L wrist fx s/p ORIF ( Oct) is admitted due to dehydration and inexplicable fall in an elderly patient with CKD ------- admitted due to dehydration in the setting of an elderly patient with worsened kidney disease 1) Dehydration s/p fall -Within setting of CKD Stage 4 and other comorbidities 2) Previous Left Wrist Fx s/p October ORIF -Still Casted -States she did not follow up w Ortho in office 3) DM2 -Uncontrolled 4) HTN -Metoprolol 12.5mg PO BID -Valsartan 80mg PO Daily 5) Depression -Paxil 20mg PO Daily Psych consult :Assessment : mdd, recurrent severe without psychosis Resident working with attending: progness note; Weakness s/p mechanical fall - Likely partially due to dehydration, which has improved with IV fluids ; thrombocytosis improved CKD stage 4, CK wnl creatinine:11/17/16:1.9-> 11/20/16:2.3-> 11/23/16:2.4 --->01/13/17: 2.5->2.5->2.5 see EMR for other previous lab results IVF 1,000 ccs received in the ER This form is a permanent part of the medical record Clarification of your documentation is requested to better reflect the severity of illness and intensity of treatment of your patient. Indicators present [] Specify: [] [] Specify: [] [] Specify: [] [] Specify: [] Location in the medical record that reflects the above clinical findings: [] Treatment Provided: [] PHYSICIAN'S RESPONSE Based on your medical judgment of the clinical indicators outlined above please clarify the following: [] Practitioner response [] If unable to determine, please check the box, sign and date. Present On Admission (POA) Indicator: [] Present at the time of admission [] Not present at the time of admission [] Clinically Undetermined In responding to this query, please exercise your independent professional judgment. The fact that a question is asked does not imply that any particular answer is desired or expected. Thank you for your clarification on this documentation. If you have any questions please call. * Thank you, Yumiko Sabillon RN BSN ext. #[phone] (ext. [phone] temporarily out of service) [facility]EN
[2017-01-16] MEDS ORDERED: Morphine 4 MG/ML VIAL IVP PRN (11:00)
--- NOTE | 2017-01-16 11:05 | CP.PCM.PN ---
Objective - Vital Signs/Intake and Output Vital Signs (last 24 hours): Temp Pulse Resp BP Pulse Ox 98.1 F 57 L 20 104/60 98 01/16/17 08:55 01/16/17 09:00 01/16/17 08:55 01/16/17 09:00 01/16/17 08:55 - Medications Medications: Current Medications Acetaminophen (Tylenol 325mg Tab) 650 mg PO Q6 PRN PRN Reason: Pain, Mild (1-3) Aspirin (Ecotrin) 81 mg PO DAILY [facility] Last Admin: 01/16/17 08:58 Dose: 81 mg Atorvastatin Calcium (Lipitor) 40 mg PO DAILY [facility] Last Admin: 01/16/17 08:59 Dose: 40 mg Glipizide (Glucotrol Xl) 5 mg PO DAILY [facility] Last Admin: 01/16/17 08:58 Dose: 5 mg Heparin Sodium (Porcine) (Heparin) 5,000 units SC Q12 [facility] PRN Reason: Protocol Last Admin: 01/16/17 09:01 Dose: 5,000 units Insulin Detemir (Levemir) 20 units SC HS [facility] Last Admin: 01/15/17 22:31 Dose: 20 units Insulin Human Lispro (Humalog) 10 units SC BID [facility] Last Admin: 01/16/17 09:03 Dose: 10 units Insulin Human Lispro (Humalog) 0 units SC ACHS [facility] PRN Reason: Protocol Last Admin: 01/16/17 08:50 Dose: 3 units Metoprolol Tartrate (Lopressor) 12.5 mg PO Q12 [facility] Last Admin: 01/16/17 09:00 Dose: Not Given Morphine Sulfate (Morphine) 2 mg IVP Q6 PRN PRN Reason: Pain, moderate (4-7) Multivitamins/Minerals (Therapeutic-M Tab) 1 tab PO DAILY [facility] Last Admin: 01/16/17 08:58 Dose: 1 tab Paroxetine HCl (Paxil) 20 mg PO DAILY [facility] Last Admin: 01/16/17 08:58 Dose: 20 mg Repaglinide (Prandin) 2 mg PO TIDWM [facility] Last Admin: 01/16/17 08:57 Dose: 2 mg Senna/Docusate Sodium (Senokot S 50 Mg-8.6 Mg) 2 tab PO HS PRN PRN Reason: Constipation Sevelamer HCl (Renagel) 800 mg PO TID [facility] Last Admin: 01/16/17 08:58 Dose: 800 mg Sodium Bicarbonate (Sodium Bicarbonate Tab) 650 mg PO DAILY [facility] Last Admin: 01/16/17 08:58 Dose: 650 mg Valsartan (Diovan) 80 mg PO DAILY [facility] Last Admin: 01/16/17 08:57 Dose: 80 mg - Labs Labs: 01/16/17 06:35 01/16/17 06:35 PT 12.0 Seconds (9.8-13.1) 01/13/17 12:00 INR 1.1 (0.9-1.2) 01/13/17 12:00 APTT 29.7 Seconds (25.6-37.1) 01/13/17 12:00
--- NOTE | 2017-01-16 18:30 | CP.PCM.PN ---
<Lissa Lagunas - Last Filed: 01/16/17 18:19> Subjective - Date & Time of Evaluation Date of Evaluation: 01/16/17 Time of Evaluation: 07:15 - Subjective Subjective: Patient seen and examined at bedside, no acute events overnight. Patient voided large amount in bed, shows poor insight into current health and social situation. Denies chest pain, SOB, dizziness. States "I'm going home, I don't want to go anywhere after here". She reports being cooperative with PT. Objective - Vital Signs/Intake and Output Vital Signs (last 24 hours): Temp Pulse Resp BP Pulse Ox 97.5 F L 65 17 110/71 97 01/16/17 16:49 01/16/17 16:49 01/16/17 16:49 01/16/17 16:49 01/16/17 16:49 - Medications Medications: Current Medications Acetaminophen (Tylenol 325mg Tab) 650 mg PO Q6 PRN PRN Reason: Pain, Mild (1-3) Aspirin (Ecotrin) 81 mg PO DAILY [facility] Last Admin: 01/16/17 08:58 Dose: 81 mg Atorvastatin Calcium (Lipitor) 40 mg PO DAILY [facility] Last Admin: 01/16/17 08:59 Dose: 40 mg Glipizide (Glucotrol Xl) 5 mg PO DAILY [facility] Last Admin: 01/16/17 08:58 Dose: 5 mg Heparin Sodium (Porcine) (Heparin) 5,000 units SC Q12 [facility] PRN Reason: Protocol Last Admin: 01/16/17 09:01 Dose: 5,000 units Insulin Detemir (Levemir) 20 units SC HS [facility] Last Admin: 01/15/17 22:31 Dose: 20 units Insulin Human Lispro (Humalog) 10 units SC BID [facility] Last Admin: 01/16/17 17:37 Dose: 10 units Insulin Human Lispro (Humalog) 0 units SC ACHS [facility] PRN Reason: Protocol Last Admin: 01/16/17 17:38 Dose: 4 units Metoprolol Tartrate (Lopressor) 12.5 mg PO Q12 [facility] Last Admin: 01/16/17 09:00 Dose: Not Given Morphine Sulfate (Morphine) 2 mg IVP Q6 PRN PRN Reason: Pain, moderate (4-7) Multivitamins/Minerals (Therapeutic-M Tab) 1 tab PO DAILY [facility] Last Admin: 01/16/17 08:58 Dose: 1 tab Paroxetine HCl (Paxil) 20 mg PO DAILY [facility] Last Admin: 01/16/17 08:58 Dose: 20 mg Repaglinide (Prandin) 2 mg PO TIDWM [facility] Last Admin: 01/16/17 17:36 Dose: 2 mg Senna/Docusate Sodium (Senokot S 50 Mg-8.6 Mg) 2 tab PO HS PRN PRN Reason: Constipation Sevelamer HCl (Renagel) 800 mg PO TID [facility] Last Admin: 01/16/17 17:36 Dose: 800 mg Sodium Bicarbonate (Sodium Bicarbonate Tab) 650 mg PO DAILY [facility] Last Admin: 01/16/17 08:58 Dose: 650 mg Valsartan (Diovan) 80 mg PO DAILY [facility] Last Admin: 01/16/17 08:57 Dose: 80 mg - Labs Labs: 01/16/17 06:35 01/16/17 06:35 PT 12.0 Seconds (9.8-13.1) 01/13/17 12:00 INR 1.1 (0.9-1.2) 01/13/17 12:00 APTT 29.7 Seconds (25.6-37.1) 01/13/17 12:00 - Constitutional Appears: No Acute Distress, Unkempt, Older Than Stated Age - Head Exam Head Exam: ATRAUMATIC, NORMOCEPHALIC - Eye Exam Eye Exam: EOMI, PERRL - ENT Exam ENT Exam: Mucous Membranes Moist - Neck Exam Neck Exam: Full ROM. absent: Lymphadenopathy - Respiratory Exam Respiratory Exam: Clear to Ausculation Bilateral, NORMAL BREATHING PATTERN - Cardiovascular Exam Cardiovascular Exam: REGULAR RHYTHM, +S1, +S2 - GI/Abdominal Exam GI & Abdominal Exam: Soft (obese). absent: Distended, Tenderness - Extremities Exam Extremities Exam: Full ROM (left wrist cast removed by ortho, javi in place/ clean/dry/intact). absent: Calf Tenderness, Pedal Edema - Back Exam Back Exam: absent: CVA tenderness (L), CVA tenderness (R) - Neurological Exam Neurological Exam: Alert, Awake, CN II-XII Intact, Oriented x3 - Psychiatric Exam Psychiatric exam: Normal Affect, Normal Mood - Skin Skin Exam: Dry, Intact, Normal Color, Warm Assessment and Plan - Assessment and Plan (Free Text) Assessment: 76 yr old F admitted for dehydration and mechanical fall at home , found to have acute weakness with PMHx of uncontrolled IDDM, HTN, CKD , depression, Hydronephrosis, and L wrist fx s/p ORIF in October 2016. Patient's weakness persist, otherwise is stable. PT/OT recommend TCU. Psych eval appreciated, recommend [facility] screening and adult protective services (APS) . Social work arranging [facility] screening, APS may be arranged upon discharge. 1) Weakness s/p mechanical fall -afebrile, leukocytosis 12.4, chronic thrombocytosis improved compared to last admission -dehydration resolved, CMP wnl, CKD stage 4, CK wnl -EKG: NSR, inferior infarct of undetermined age -CXR: Poor inspiration with low lung volumes, mild crowded bronchovascular markings and mild bibasilar atelectasis -CT Head: No ICH, nonspecific white matter changes (see full report) -f/u Lactic Acid, PT/INR/PTT, BCx, UCx, -Vit B12 high at >1,000pg/mL , Folate wnl, Vit D low at 29.1 -social service consult appreciated -PT/OT consult appreciated: recommend TCU 2) Previous Left Wrist Fx s/p ORIF in October 2016 -stable, cast removed, patient failed to f/u after discharge from hospital on last admission -Tylenol 650mg PO Q6H PRN mild pain, Morphine 2mg IVP Q6H PRN moderate pain -Ortho Consult appreciated: Dr. Carrizales -left wrist xray: stable ORIF, satifactory alignment, no evidence of hardware failure, multi-articular DJD (see full report) -continue PT/OT 3) CKD Stage 4 (GFR 15-29) -stable, chronic -patient is at baseline with BUN/Cr 47/2.5 w/ GFR 19 -avoid nephrotoxic drugs -f/u SPEP, UPEP 4) IDDM -Uncontrolled, HbA1c 10.8 on 11/11/16 -Continue home meds (Glipizide SR 5mg PO Daily, Prandin 20mg PO TIDWM, Levemir 20mg SC HS, Lispro 10mg SC BID, ASA 81mg PO Daily) -Lispro Sliding Scale (medium dose scale) -monitor POC glucose ACHS 5) HLD -stable -lipid panel 2/22/17: (Triglycerides 213, Cholesterol 108, LDL 36, HDL 25) -continue home med (Atorvastatin 40mg PO Daily) 6) HTN -controlled -continue home meds (Metoprolol 12.5mg PO BID, Valsartan 80mg PO Daily) -monitor BP 7) Depression/Anxiety -chronic -Paxil 20mg PO Daily -psych consult appreciated-Dr. Dove: will follow recommendations: [facility] screening and APS 8) DVT Prophylaxis -Heparin 5,000 units SC Q12 -SCDs for now <Min Woody - Last Filed: 01/19/17 06:45> Objective - Vital Signs/Intake and Output Vital Signs (last 24 hours): Temp Pulse Resp BP Pulse Ox 100 F H 70 20 114/65 96 01/19/17 01:48 01/19/17 00:30 01/19/17 00:30 01/19/17 00:30 01/19/17 00:30 - Medications Medications: Current Medications Acetaminophen (Tylenol 325mg Tab) 650 mg PO Q6 PRN PRN Reason: Pain, Mild (1-3) Acetaminophen (Tylenol 325mg Tab) 650 mg PO Q6 PRN PRN Reason: Fever >100.4 F Last Admin: 01/19/17 00:48 Dose: 650 mg Aspirin (Ecotrin) 81 mg PO DAILY [facility] Last Admin: 01/18/17 09:45 Dose: 81 mg Atorvastatin Calcium (Lipitor) 40 mg PO DAILY [facility] Last Admin: 01/18/17 09:47 Dose: 40 mg Ergocalciferol (Drisdol 50,000 Intl Units Cap) 1 cap PO Q7D [facility] Last Admin: 01/18/17 17:00 Dose: 1 cap Glipizide (Glucotrol Xl) 5 mg PO DAILY [facility] Last Admin: 01/18/17 09:45 Dose: 5 mg Heparin Sodium (Porcine) (Heparin) 5,000 units SC Q12 [facility] PRN Reason: Protocol Last Admin: 01/18/17 22:04 Dose: 5,000 units Ceftriaxone Sodium 1 gm/ (Sodium Chloride) 100 mls @ 100 mls/hr IVPB DAILY [facility] Insulin Detemir (Levemir) 20 units SC HS [facility] Last Admin: 01/18/17 22:11 Dose: 20 units Insulin Human Lispro (Humalog) 0 units SC ACHS [facility] PRN Reason: Protocol Last Admin: 01/18/17 22:05 Dose: Not Given Insulin Human Lispro (Humalog) 12 units SC BID [facility] Metoprolol Tartrate (Lopressor) 12.5 mg PO Q12 [facility] Last Admin: 01/18/17 22:07 Dose: 12.5 mg Morphine Sulfate (Morphine) 2 mg IVP Q6 PRN PRN Reason: Pain, moderate (4-7) Last Admin: 01/17/17 13:47 Dose: 2 mg Multivitamins/Minerals (Therapeutic-M Tab) 1 tab PO DAILY [facility] Last Admin: 01/18/17 09:44 Dose: 1 tab Paroxetine HCl (Paxil) 20 mg PO DAILY [facility] Last Admin: 01/18/17 09:47 Dose: 20 mg Repaglinide (Prandin) 2 mg PO TIDWM [facility] Last Admin: 01/18/17 17:01 Dose: 2 mg Senna/Docusate Sodium (Senokot S 50 Mg-8.6 Mg) 2 tab PO HS PRN PRN Reason: Constipation Sevelamer HCl (Renagel) 800 mg PO TID [facility] Last Admin: 01/18/17 17:00 Dose: 800 mg Sodium Bicarbonate (Sodium Bicarbonate Tab) 650 mg PO DAILY [facility] Last Admin: 01/18/17 09:47 Dose: 650 mg Valsartan (Diovan) 80 mg PO DAILY [facility] Last Admin: 01/18/17 09:45 Dose: 80 mg - Labs Labs: 01/18/17 06:05 01/16/17 06:35 PT 12.0 Seconds (9.8-13.1) 01/13/17 12:00 INR 1.1 (0.9-1.2) 01/13/17 12:00 APTT 29.7 Seconds (25.6-37.1) 01/13/17 12:00 Attending/Attestation - Attestation I have personally seen and examined this patient.: Yes I have fully participated in the care of the patient.: Yes I have reviewed all pertinent clinical information, including history, physical exam and plan: Yes
[2017-01-16] MEDS: Insulin Detemir 100 Units/ml Inj SC SCH (23:24)
--- NOTE | 2017-01-17 06:42 | CP.PCM.PN ---
Addendum entered and electronically signed by Lissa Lagunas MD 01/17/17 14 :53: Patient is medically cleared for discharge to TCU. Original Note: <Lissa Lagunas - Last Filed: 01/17/17 14:02> Subjective - Date & Time of Evaluation Date of Evaluation: 01/17/17 Time of Evaluation: 08:00 - Subjective Subjective: Patient seen and examined at bedside. No acute events overnight. Continues to void large amounts in bed, discussed with patient use of nursing call madrigal to void into bedpan instead. Denies SOB, dizziness, chest pain or dizziness. States " I would like to go home by monday, I have gambling plans". Discussed with patient her safety and the need for better support at home, patient states " I spoke to my son, he is out of the hospital, he will do better". Objective - Vital Signs/Intake and Output Vital Signs (last 24 hours): Temp Pulse Resp BP Pulse Ox 98.2 F 64 20 123/70 98 01/17/17 01:28 01/17/17 01:28 01/17/17 01:28 01/17/17 01:28 01/17/17 01:28 - Medications Medications: Current Medications Acetaminophen (Tylenol 325mg Tab) 650 mg PO Q6 PRN PRN Reason: Pain, Mild (1-3) Aspirin (Ecotrin) 81 mg PO DAILY [facility] Last Admin: 01/16/17 08:58 Dose: 81 mg Atorvastatin Calcium (Lipitor) 40 mg PO DAILY [facility] Last Admin: 01/16/17 08:59 Dose: 40 mg Glipizide (Glucotrol Xl) 5 mg PO DAILY [facility] Last Admin: 01/16/17 08:58 Dose: 5 mg Heparin Sodium (Porcine) (Heparin) 5,000 units SC Q12 [place] PRN Reason: Protocol Last Admin: 01/16/17 21:31 Dose: 5,000 units Insulin Detemir (Levemir) 20 units SC HS [facility] Last Admin: 01/16/17 23:24 Dose: 20 units Insulin Human Lispro (Humalog) 10 units SC BID [facility] Last Admin: 01/16/17 17:37 Dose: 10 units Insulin Human Lispro (Humalog) 0 units SC ACHS [facility] PRN Reason: Protocol Last Admin: 01/16/17 23:23 Dose: Not Given Metoprolol Tartrate (Lopressor) 12.5 mg PO Q12 [facility] Last Admin: 01/16/17 21:27 Dose: Not Given Morphine Sulfate (Morphine) 2 mg IVP Q6 PRN PRN Reason: Pain, moderate (4-7) Multivitamins/Minerals (Therapeutic-M Tab) 1 tab PO DAILY [facility] Last Admin: 01/16/17 08:58 Dose: 1 tab Paroxetine HCl (Paxil) 20 mg PO DAILY [facility] Last Admin: 01/16/17 08:58 Dose: 20 mg Repaglinide (Prandin) 2 mg PO TIDWM [facility] Last Admin: 01/16/17 17:36 Dose: 2 mg Senna/Docusate Sodium (Senokot S 50 Mg-8.6 Mg) 2 tab PO HS PRN PRN Reason: Constipation Sevelamer HCl (Renagel) 800 mg PO TID [facility] Last Admin: 01/16/17 17:36 Dose: 800 mg Sodium Bicarbonate (Sodium Bicarbonate Tab) 650 mg PO DAILY [facility] Last Admin: 01/16/17 08:58 Dose: 650 mg Valsartan (Diovan) 80 mg PO DAILY [facility] Last Admin: 01/16/17 08:57 Dose: 80 mg - Labs Labs: 01/16/17 06:35 01/16/17 06:35 PT 12.0 Seconds (9.8-13.1) 01/13/17 12:00 INR 1.1 (0.9-1.2) 01/13/17 12:00 APTT 29.7 Seconds (25.6-37.1) 01/13/17 12:00 - Constitutional Appears: Non-toxic, No Acute Distress, Unkempt - Head Exam Head Exam: ATRAUMATIC, NORMOCEPHALIC - Eye Exam Eye Exam: EOMI, PERRL - ENT Exam ENT Exam: Mucous Membranes Moist - Neck Exam Neck Exam: Full ROM. absent: Lymphadenopathy - Respiratory Exam Respiratory Exam: Clear to Ausculation Bilateral, NORMAL BREATHING PATTERN - Cardiovascular Exam Cardiovascular Exam: REGULAR RHYTHM, +S1, +S2 - GI/Abdominal Exam GI & Abdominal Exam: Soft (obese). absent: Distended, Tenderness - Extremities Exam Extremities Exam: Full ROM. absent: Calf Tenderness, Pedal Edema - Back Exam Back Exam: absent: CVA tenderness (L), CVA tenderness (R) - Neurological Exam Neurological Exam: Alert, Awake, CN II-XII Intact - Psychiatric Exam Psychiatric exam: Flat Affect, Normal Mood - Skin Skin Exam: Dry, Intact, Warm Assessment and Plan - Assessment and Plan (Free Text) Assessment: 76 yr old F admitted for dehydration and mechanical fall at home , found to have acute weakness with PMHx of uncontrolled IDDM, HTN, CKD , depression, Hydronephrosis, and L wrist fx s/p ORIF in October 2016. Patient's weakness persist, otherwise is stable. PT/OT recommend TCU. Psych eval appreciated, [place] [facility] [place] . APS may be arranged upon discharge. [facility] [place]. Patient is agreeable to TCU , but when approached by social media analyst states she "just want to go home". 1) Asymptomatic bacteuria -chronic, recurrent, pt denies dysuria, is afebrile, chronic leukocytosis improved -f/u repeat urinalysis -f/u urine culture -will consider ID consult pending UCx results -f/u CBC 2) Weakness s/p mechanical fall -afebrile, leukocytosis 12.4, chronic thrombocytosis improved compared to last admission -dehydration resolved, CMP wnl, CKD stage 4, CK wnl -EKG: NSR, inferior infarct of undetermined age -CXR: Poor inspiration with low lung volumes, mild crowded bronchovascular markings and mild bibasilar atelectasis -CT Head: No ICH, nonspecific white matter changes (see full report) -f/u Lactic Acid, PT/INR/PTT, BCx, UCx, -Vit B12 high at >1,000pg/mL , Folate wnl, Vit D low at 29.1 -social service consult appreciated -PT/OT consult appreciated: recommend TCU 3) Previous Left Wrist Fx s/p ORIF in October 2016 -stable, cast removed, patient failed to f/u after discharge from hospital on last admission -Tylenol 650mg PO Q6H PRN mild pain, Morphine 2mg IVP Q6H PRN moderate pain -Ortho Consult appreciated: Dr. Carrizales -left wrist xray: stable ORIF, satifactory alignment, no evidence of hardware failure, multi-articular DJD (see full report) -continue PT/OT 4) CKD Stage 4 (GFR 15-29) -stable, chronic -patient is at baseline with BUN/Cr 47/2.5 w/ GFR 19 -avoid nephrotoxic drugs -UPEP wnl, f/u SPEP 5) IDDM -Uncontrolled, HbA1c 10.8 on 11/11/16 -Continue home meds (Glipizide SR 5mg PO Daily, Prandin 20mg PO TIDWM, Levemir 20mg SC HS, Lispro 10mg SC BID, ASA 81mg PO Daily) -Lispro Sliding Scale (medium dose scale) -monitor POC glucose ACHS 6) HLD -stable -lipid panel 08/31/16: (Triglycerides 213, Cholesterol 108, LDL 36, HDL 25) -continue home med (Atorvastatin 40mg PO Daily) 7) HTN -controlled -continue home meds (Metoprolol 12.5mg PO BID, Valsartan 80mg PO Daily) -monitor BP 8) Depression/Anxiety -chronic -Paxil 20mg PO Daily -psych consult appreciated-Dr. Dove: will follow recommendations[place] [facility] [place] 9) DVT Prophylaxis -Heparin 5,000 units SC Q12 -SCDs for now <Min Woody - Last Filed: 01/19/17 06:46> Objective - Vital Signs/Intake and Output Vital Signs (last 24 hours): Temp Pulse Resp BP Pulse Ox 100 F H 70 20 114/65 96 01/19/17 01:48 01/19/17 00:30 01/19/17 00:30 01/19/17 00:30 01/19/17 00:30 - Medications Medications: Current Medications Acetaminophen (Tylenol 325mg Tab) 650 mg PO Q6 PRN PRN Reason: Pain, Mild (1-3) Acetaminophen (Tylenol 325mg Tab) 650 mg PO Q6 PRN PRN Reason: Fever >100.4 F Last Admin: 01/19/17 00:48 Dose: 650 mg Aspirin (Ecotrin) 81 mg PO DAILY [facility] Last Admin: 01/18/17 09:45 Dose: 81 mg Atorvastatin Calcium (Lipitor) 40 mg PO DAILY [facility] Last Admin: 01/18/17 09:47 Dose: 40 mg Ergocalciferol (Drisdol 50,000 Intl Units Cap) 1 cap PO Q7D [facility] Last Admin: 01/18/17 17:00 Dose: 1 cap Glipizide (Glucotrol Xl) 5 mg PO DAILY [facility] Last Admin: 01/18/17 09:45 Dose: 5 mg Heparin Sodium (Porcine) (Heparin) 5,000 units SC Q12 [facility] PRN Reason: Protocol Last Admin: 01/18/17 22:04 Dose: 5,000 units Ceftriaxone Sodium 1 gm/ (Sodium Chloride) 100 mls @ 100 mls/hr IVPB DAILY [facility] Insulin Detemir (Levemir) 20 units SC HS [facility] Last Admin: 01/18/17 22:11 Dose: 20 units Insulin Human Lispro (Humalog) 0 units SC ACHS [facility] PRN Reason: Protocol Last Admin: 01/18/17 22:05 Dose: Not Given Insulin Human Lispro (Humalog) 12 units SC BID [facility] Metoprolol Tartrate (Lopressor) 12.5 mg PO Q12 [facility] Last Admin: 01/18/17 22:07 Dose: 12.5 mg Morphine Sulfate (Morphine) 2 mg IVP Q6 PRN PRN Reason: Pain, moderate (4-7) Last Admin: 01/17/17 13:47 Dose: 2 mg Multivitamins/Minerals (Therapeutic-M Tab) 1 tab PO DAILY [facility] Last Admin: 01/18/17 09:44 Dose: 1 tab Paroxetine HCl (Paxil) 20 mg PO DAILY [facility] Last Admin: 01/18/17 09:47 Dose: 20 mg Repaglinide (Prandin) 2 mg PO TIDWM [facility] Last Admin: 01/18/17 17:01 Dose: 2 mg Senna/Docusate Sodium (Senokot S 50 Mg-8.6 Mg) 2 tab PO HS PRN PRN Reason: Constipation Sevelamer HCl (Renagel) 800 mg PO TID [facility] Last Admin: 01/18/17 17:00 Dose: 800 mg Sodium Bicarbonate (Sodium Bicarbonate Tab) 650 mg PO DAILY [facility] Last Admin: 01/18/17 09:47 Dose: 650 mg Valsartan (Diovan) 80 mg PO DAILY [facility] Last Admin: 01/18/17 09:45 Dose: 80 mg - Labs Labs: 01/18/17 06:05 01/16/17 06:35 PT 12.0 Seconds (9.8-13.1) 01/13/17 12:00 INR 1.1 (0.9-1.2) 01/13/17 12:00 APTT 29.7 Seconds (25.6-37.1) 01/13/17 12:00 Attending/Attestation - Attestation I have personally seen and examined this patient.: Yes I have fully participated in the care of the patient.: Yes I have reviewed all pertinent clinical information, including history, physical exam and plan: Yes
[2017-01-17] MEDS: Insulin Lispro (humaLOG) 100 Units/ml Inj SC SCH ×6 (08:55→21:57)
[2017-01-17] MEDS: Multivitamin With Minerals Tab PO SCH (11:32)
[2017-01-17] MEDS: GlipiZIDE 5 mg SR Tab PO SCH (11:34)
[2017-01-17 20:28] LABS: ALBUMIN (PEP) 3.1 g/dL (3.8-4.8); ALPHA-1-GLOBULIN (PEP) 0.5 g/dL (0.2-0.3)
[2017-01-17] MEDS: Insulin Detemir 100 Units/ml Inj SC SCH (21:58)
[2017-01-18 08:16] LABS: HEMOGLOBIN 11.4 g/dL (12.0-16.0); MEAN CORPUSCULAR HEMOGLOBIN 25.3 pg (27.0-31.0); MEAN CORPUSCULAR HGB CONC 30.6 g/dL (33.0-37.0); RBC 4.48 Mil/uL (3.80-5.20); RED CELL DISTRIBUTION WIDTH 16.4 % (11.5-14.5); WHITE BLOOD COUNT 13.2 K/uL (4.8-10.8)
[2017-01-18 08:19] LABS: MEAN CELL VOLUME 82.8 fl (81.0-99.0)
[2017-01-18] MEDS: Multivitamin With Minerals Tab PO SCH (09:44)
[2017-01-18] MEDS: GlipiZIDE 5 mg SR Tab PO SCH (09:45)
[2017-01-18] MEDS: Insulin Lispro (humaLOG) 100 Units/ml Inj SC SCH ×6 (09:45→22:05)
[2017-01-18 10:22] LABS: URINE BACTERIA OCC (<OCC); URINE BILIRUBIN NEGATIVE (NEGATIVE); URINE BLOOD MODERATE (NEGATIVE); URINE CLARITY TURBID (Clear); URINE COLOR AMBER (YELLOW); URINE GLUCOSE (UA) NEG (Normal); URINE LEUKOCYTE ESTERASE LARGE Leu/uL (Negative); URINE NITRATE POSITIVE (NEGATIVE); URINE PROTEIN 100 mg/dL (NEGATIVE); URINE UROBILINOGEN 0.2-1.0 mg/dL (0.2-1.0); WBC CLUMPS FEW /hpf
--- NOTE | 2017-01-18 10:45 | CP.PCM.PN ---
Subjective - Date & Time of Evaluation Date of Evaluation: 01/17/17 Time of Evaluation: 13:00 - Subjective Subjective: pt without c/o,minimal pain to left wrist post surgery 11/08/16,pt was unable to follow up post op with Ortho to remove sutures and javi due to social issues, denies paresthesias Objective - Vital Signs/Intake and Output Vital Signs (last 24 hours): Temp Pulse Resp BP Pulse Ox 98.7 F 60 18 115/75 98 01/18/17 09:00 01/18/17 09:44 01/18/17 09:00 01/18/17 09:44 01/18/17 09:00 - Medications Medications: Current Medications Acetaminophen (Tylenol 325mg Tab) 650 mg PO Q6 PRN PRN Reason: Pain, Mild (1-3) Aspirin (Ecotrin) 81 mg PO DAILY [facility] Last Admin: 01/18/17 09:45 Dose: 81 mg Atorvastatin Calcium (Lipitor) 40 mg PO DAILY [facility] Last Admin: 01/18/17 09:47 Dose: 40 mg Glipizide (Glucotrol Xl) 5 mg PO DAILY [facility] Last Admin: 01/18/17 09:45 Dose: 5 mg Heparin Sodium (Porcine) (Heparin) 5,000 units SC Q12 [place] PRN Reason: Protocol Last Admin: 01/18/17 09:45 Dose: 5,000 units Insulin Detemir (Levemir) 20 units SC HS [facility] Last Admin: 01/17/17 21:58 Dose: 20 units Insulin Human Lispro (Humalog) 10 units SC BID [facility] Last Admin: 01/18/17 09:45 Dose: 10 units Insulin Human Lispro (Humalog) 0 units SC ACHS [facility] PRN Reason: Protocol Last Admin: 01/18/17 09:46 Dose: 2 units Metoprolol Tartrate (Lopressor) 12.5 mg PO Q12 [facility] Last Admin: 01/18/17 09:44 Dose: 12.5 mg Morphine Sulfate (Morphine) 2 mg IVP Q6 PRN PRN Reason: Pain, moderate (4-7) Last Admin: 01/17/17 13:47 Dose: 2 mg Multivitamins/Minerals (Therapeutic-M Tab) 1 tab PO DAILY [facility] Last Admin: 01/18/17 09:44 Dose: 1 tab Paroxetine HCl (Paxil) 20 mg PO DAILY [facility] Last Admin: 01/18/17 09:47 Dose: 20 mg Repaglinide (Prandin) 2 mg PO TIDWM [facility] Last Admin: 01/18/17 09:44 Dose: 2 mg Senna/Docusate Sodium (Senokot S 50 Mg-8.6 Mg) 2 tab PO HS PRN PRN Reason: Constipation Sevelamer HCl (Renagel) 800 mg PO TID [facility] Last Admin: 01/18/17 09:44 Dose: 800 mg Sodium Bicarbonate (Sodium Bicarbonate Tab) 650 mg PO DAILY [facility] Last Admin: 01/18/17 09:47 Dose: 650 mg Valsartan (Diovan) 80 mg PO DAILY [facility] Last Admin: 01/18/17 09:45 Dose: 80 mg - Labs Labs: 01/18/17 06:05 01/16/17 06:35 PT 12.0 Seconds (9.8-13.1) 01/13/17 12:00 INR 1.1 (0.9-1.2) 01/13/17 12:00 APTT 29.7 Seconds (25.6-37.1) 01/13/17 12:00 - Constitutional Appears: Well - Head Exam Head Exam: NORMAL INSPECTION - Eye Exam Eye Exam: Normal appearance - ENT Exam ENT Exam: Mucous Membranes Moist - Extremities Exam Additional comments: left volar wound intact,javi and sutures patent,+2 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 refill,+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 Manzanares,repeat imaging per attd,expressed understanding,primary management per admitting team.
--- NOTE | 2017-01-18 13:31 | CP.PCM.CON ---
History of Present Illness - History of Present Illness History of Present Illness: REASONS FOR CONSULT : CKD STAGE 4 WITH eGFR AROUND 23 RENAL BONE DISEASE WITH ELEVATED PHOSPHORUS AND LOW VIT D CHRONIC HUDRONEPHROSIS AND CHRONIC UTI PT IS WELL KNOWN TO OUR RENAL SERVICE .. ALL EMR REVIEWED .. PT WAS SEEN AND EXAMINED 76 yo F w PMHx of uncontrolled DM, HTN, CKD, depression, Hydronephrosis, and L wrist fx s/p ORIF (Oct) is admitted due to dehydration and inexplicable fall in an elderly patient with CKD. She states being on the floor for the previous 2 days because she slid off of her bed and did not want to work to get back up. She did not eat or drink anything during this time, and she states that all of her voids were absorbed by her adult diaper. Her family denies knowing that she had fallen, despite living in the same home. They stressed that they live on the other side of the house and will sometimes not see the pt for extended periods. She denies any LOC, dizziness, lightheadedness, fevers/ chills, nausea, vomiting, or diarrhea. Her left wrist is wrapped, as the patient states Dr Carrizales saw her in [facility] in October, but that she did not follow up with him afterwards. She has some transportation issues and was not able to follow up in his office, such as a lapsed car inspection for 3 months. Otherwise , she denies any chest pain, SOB, dyspnea, cough, abdominal pain, hematuria, dysuria, hematochezia, melena, or other myalgias. PMD: Dr Boswell PMHx: uncontrolled DM, HTN, CKD Stage 4, depression, Hydronephrosis, and c difficile (Oct) PSHx: L/wrist fx s/p ORIF (Oct) NKDA SHx: lives w family Past Patient History - Infectious Disease Hx of Infectious Diseases: None - Past Medical History & Family History Past Medical History?: Yes - Past Social History Smoking Status: Never Smoked - CARDIAC Hx Hypercholesterolemia: Yes Hx Hypertension: Yes - PULMONARY Hx Chronic Obstructive Pulmonary Disease (COPD): Yes Hx Pneumonia: Yes - NEUROLOGICAL Hx Neurological Disorder: No - HEENT Hx HEENT Problems: Yes Other/Comment: uses eye glasses - RENAL Hx Chronic Kidney Disease: Yes - ENDOCRINE/METABOLIC Hx Endocrine Disorders: Yes Hx Diabetes Mellitus Type 2: Yes - HEMATOLOGICAL/ONCOLOGICAL Hx Human Immunodeficiency Virus (HIV): No - INTEGUMENTARY Hx Dermatological Problems: No - MUSCULOSKELETAL/RHEUMATOLOGICAL Hx Arthritis: Yes - GASTROINTESTINAL Hx Gastrointestinal Disorders: No - GENITOURINARY/GYNECOLOGICAL Hx Genitourinary Disorders: No - PSYCHIATRIC Hx Anxiety: Yes Hx Depression: Yes - SURGICAL HISTORY Hx Tonsillectomy: Yes - ANESTHESIA Hx Anesthesia: No Hx Anesthesia Reactions: No Hx Malignant Hyperthermia: No Meds Allergies/Adverse Reactions: Allergies Allergy/AdvReac Type Severity Reaction Status Date / Time No Known Allergies Allergy Verified 01/04/16 20:19 - Medications Medications: Current Medications Acetaminophen (Tylenol 325mg Tab) 650 mg PO Q6 PRN PRN Reason: Pain, Mild (1-3) Aspirin (Ecotrin) 81 mg PO DAILY [facility] Last Admin: 01/18/17 09:45 Dose: 81 mg Atorvastatin Calcium (Lipitor) 40 mg PO DAILY [facility] Last Admin: 01/18/17 09:47 Dose: 40 mg Glipizide (Glucotrol Xl) 5 mg PO DAILY [facility] Last Admin: 01/18/17 09:45 Dose: 5 mg Heparin Sodium (Porcine) (Heparin) 5,000 units SC Q12 [facility] PRN Reason: Protocol Last Admin: 01/18/17 09:45 Dose: 5,000 units Insulin Detemir (Levemir) 20 units SC HS [facility] Last Admin: 01/17/17 21:58 Dose: 20 units Insulin Human Lispro (Humalog) 10 units SC BID [facility] Last Admin: 01/18/17 09:45 Dose: 10 units Insulin Human Lispro (Humalog) 0 units SC ACHS [facility] PRN Reason: Protocol Last Admin: 01/18/17 12:09 Dose: 6 units Metoprolol Tartrate (Lopressor) 12.5 mg PO Q12 [facility] Last Admin: 01/18/17 09:44 Dose: 12.5 mg Morphine Sulfate (Morphine) 2 mg IVP Q6 PRN PRN Reason: Pain, moderate (4-7) Last Admin: 01/17/17 13:47 Dose: 2 mg Multivitamins/Minerals (Therapeutic-M Tab) 1 tab PO DAILY [facility] Last Admin: 01/18/17 09:44 Dose: 1 tab Paroxetine HCl (Paxil) 20 mg PO DAILY [facility] Last Admin: 01/18/17 09:47 Dose: 20 mg Repaglinide (Prandin) 2 mg PO TIDWM [facility] Last Admin: 01/18/17 12:10 Dose: 2 mg Senna/Docusate Sodium (Senokot S 50 Mg-8.6 Mg) 2 tab PO HS PRN PRN Reason: Constipation Sevelamer HCl (Renagel) 800 mg PO TID [facility] Last Admin: 01/18/17 09:44 Dose: 800 mg Sodium Bicarbonate (Sodium Bicarbonate Tab) 650 mg PO DAILY [facility] Last Admin: 01/18/17 09:47 Dose: 650 mg Valsartan (Diovan) 80 mg PO DAILY [facility] Last Admin: 01/18/17 09:45 Dose: 80 mg Results - Vital Signs Recent Vital Signs: Last Vital Signs Temp 98.7 F 01/18/17 09:00 Pulse 60 01/18/17 09:44 Resp 18 01/18/17 09:00 BP 115/75 01/18/17 09:44 Pulse Ox 98 01/18/17 09:00 - Labs Result Diagrams: 01/18/17 06:05 01/16/17 06:35 Labs: Laboratory Results - last 24 hr 01/15/17 01/17/17 01/17/17 06:00 15:32 20:59 WBC RBC Hgb Hct MCV MCH MCHC RDW Plt Count POC Glucose (mg/dL) 240 H 97 Albumin (PEP) 3.1 L Tecfc-1-Tctrhidaa 0.5 H Anczf-4-Pmqbgfbtw 1.0 H Vmgf-1-Emcsdieu 0.4 Kgai-6-Qlscodmu 0.5 Gamma Globulins 1.5 Abnorm Protein Band 1 TEST NOT PERFORMED Abnorm Protein Band 2 TEST NOT PERFORMED Abnorm Protein Band 3 TEST NOT PERFORMED Urine Color Urine Clarity Urine pH Ur Specific [place] Urine Protein Urine Glucose (UA) Urine Ketones Urine Blood Urine Nitrate Urine Bilirubin Urine Urobilinogen Ur Leukocyte Esterase Urine RBC (Auto) Urine WBC Clumps (Auto) Urine Microscopic WBC Urine Bacteria PETAR & SPEP Interp See note 01/18/17 01/18/17 01/18/17 06:05 06:16 10:03 WBC 13.2 H RBC 4.48 Hgb 11.4 L Hct 37.1 MCV 82.8 D MCH 25.3 L MCHC 30.6 L RDW 16.4 H Plt Count 424 H POC Glucose (mg/dL) 191 H Albumin (PEP) Qrqie-2-Neelvxqgr Ukdea-1-Usslyqjrq Yflm-2-Mxnkjhsj Ivio-9-Jgmgizno Gamma Globulins Abnorm Protein Band 1 Abnorm Protein Band 2 Abnorm Protein Band 3 Urine Color Maya Urine Clarity Turbid Urine pH 6.0 Ur Specific [place] 1.010 Urine Protein 100 Urine Glucose (UA) Neg Urine Ketones Negative Urine Blood Moderate Urine Nitrate Positive H Urine Bilirubin Negative Urine Urobilinogen 0.2-1.0 Ur Leukocyte Esterase Large Urine RBC (Auto) 42 H Urine WBC Clumps (Auto) Few H Urine Microscopic WBC 3132 H Urine Bacteria Occ H PETAR & SPEP Interp 01/18/17 10:54 WBC RBC Hgb Hct MCV MCH MCHC RDW Plt Count POC Glucose (mg/dL) 322 H Albumin (PEP) Exgzp-5-Dgykvlftc Tgktn-7-Iowmrqxje Dxvd-3-Tbcsuywp Ljeu-4-Juxmwhlr Gamma Globulins Abnorm Protein Band 1 Abnorm Protein Band 2 Abnorm Protein Band 3 Urine Color Urine Clarity Urine pH Ur Specific [place] Urine Protein Urine Glucose (UA) Urine Ketones Urine Blood Urine Nitrate Urine Bilirubin Urine Urobilinogen Ur Leukocyte Esterase Urine RBC (Auto) Urine WBC Clumps (Auto) Urine Microscopic WBC Urine Bacteria PETAR & SPEP Interp Assessment & Plan - Assessment and Plan (Free Text) Assessment: CKD STAGE 4 .. GFR STABLE HYPERPHOSPHATEMIA .. C/O RENV[place] HYPOVITAMINOSIS D .. SUPPLY VIT D MULTIPLE CO MORBIDITIES P : REPEAT U/A AND C/S ADD VIT D RENAL AND DIABETIC DIET - Date & Time Date: 01/18/17 Time: 13:00
[2017-01-18] MEDS: Ergocalciferol 50,000 Intl Units Cap PO SCH (17:00)
--- NOTE | 2017-01-18 17:22 | CP.PCM.PN ---
<Lissa Lagunas - Last Filed: 01/18/17 17:59> Subjective - Date & Time of Evaluation Date of Evaluation: 01/18/17 Time of Evaluation: 07:30 - Subjective Subjective: Patient seen and examined at bedside with Dr. Boswell. No acute events overnight. Denies chest pain, SOB, weakness or dizziness. Has normal urine output and denies dysuria. Medical team had extensive discussion with patient about her current health situation and her social support at home, patient was informed that for her safety once she is medically stable, she will be evaluated by [facility] for involuntary admission and APS will also be contacted to evaluate her living conditions and support at home. Patient was upset and stated " I just want to go home, I can take care of myself" though she again reports she was on the floor at home for 2 days because her "son tried to help but couldn't and didn't call anyone". Patient is otherwise tolerating PO diet. She refuses to go to rehab as recommended by PT. Objective - Vital Signs/Intake and Output Vital Signs (last 24 hours): Temp Pulse Resp BP Pulse Ox 98.4 F 61 18 115/82 97 01/18/17 15:54 01/18/17 15:54 01/18/17 15:54 01/18/17 15:54 01/18/17 15:54 - Medications Medications: Current Medications Acetaminophen (Tylenol 325mg Tab) 650 mg PO Q6 PRN PRN Reason: Pain, Mild (1-3) Aspirin (Ecotrin) 81 mg PO DAILY [facility] Last Admin: 01/18/17 09:45 Dose: 81 mg Atorvastatin Calcium (Lipitor) 40 mg PO DAILY [facility] Last Admin: 01/18/17 09:47 Dose: 40 mg Ergocalciferol (Drisdol 50,000 Intl Units Cap) 1 cap PO Q7D [facility] Last Admin: 01/18/17 17:00 Dose: 1 cap Glipizide (Glucotrol Xl) 5 mg PO DAILY [facility] Last Admin: 01/18/17 09:45 Dose: 5 mg Heparin Sodium (Porcine) (Heparin) 5,000 units SC Q12 [facility] PRN Reason: Protocol Last Admin: 01/18/17 09:45 Dose: 5,000 units Insulin Detemir (Levemir) 20 units SC HS [facility] Last Admin: 01/17/17 21:58 Dose: 20 units Insulin Human Lispro (Humalog) 10 units SC BID [facility] Last Admin: 01/18/17 16:59 Dose: 10 units Insulin Human Lispro (Humalog) 0 units SC ACHS [facility] PRN Reason: Protocol Last Admin: 01/18/17 17:00 Dose: 13 units Metoprolol Tartrate (Lopressor) 12.5 mg PO Q12 [facility] Last Admin: 01/18/17 09:44 Dose: 12.5 mg Morphine Sulfate (Morphine) 2 mg IVP Q6 PRN PRN Reason: Pain, moderate (4-7) Last Admin: 01/17/17 13:47 Dose: 2 mg Multivitamins/Minerals (Therapeutic-M Tab) 1 tab PO DAILY [facility] Last Admin: 01/18/17 09:44 Dose: 1 tab Paroxetine HCl (Paxil) 20 mg PO DAILY [facility] Last Admin: 01/18/17 09:47 Dose: 20 mg Repaglinide (Prandin) 2 mg PO TIDWM [facility] Last Admin: 01/18/17 17:01 Dose: 2 mg Senna/Docusate Sodium (Senokot S 50 Mg-8.6 Mg) 2 tab PO HS PRN PRN Reason: Constipation Sevelamer HCl (Renagel) 800 mg PO TID [facility] Last Admin: 01/18/17 17:00 Dose: 800 mg Sodium Bicarbonate (Sodium Bicarbonate Tab) 650 mg PO DAILY [facility] Last Admin: 01/18/17 09:47 Dose: 650 mg Valsartan (Diovan) 80 mg PO DAILY [facility] Last Admin: 01/18/17 09:45 Dose: 80 mg - Labs Labs: 01/18/17 06:05 01/16/17 06:35 PT 12.0 Seconds (9.8-13.1) 01/13/17 12:00 INR 1.1 (0.9-1.2) 01/13/17 12:00 APTT 29.7 Seconds (25.6-37.1) 01/13/17 12:00 - Constitutional Appears: Non-toxic, No Acute Distress - Head Exam Head Exam: ATRAUMATIC, NORMOCEPHALIC - Eye Exam Eye Exam: EOMI, PERRL - ENT Exam ENT Exam: Mucous Membranes Moist - Neck Exam Neck Exam: Full ROM. absent: Lymphadenopathy - Respiratory Exam Respiratory Exam: Clear to Ausculation Bilateral, NORMAL BREATHING PATTERN - Cardiovascular Exam Cardiovascular Exam: REGULAR RHYTHM, +S1, +S2 - GI/Abdominal Exam GI & Abdominal Exam: Soft (obese), Normal Bowel Sounds. absent: Distended, Tenderness - Extremities Exam Extremities Exam: Full ROM (per ortho: left volar wound intact, sutures and javi removed, no drainage,erythema or warmth). absent: Calf Tenderness, Pedal Edema - Back Exam Back Exam: absent: CVA tenderness (L), CVA tenderness (R) - Neurological Exam Neurological Exam: Alert, Awake, CN II-XII Intact - Psychiatric Exam Psychiatric exam: Normal Affect - Skin Skin Exam: Dry, Intact, Warm Assessment and Plan - Assessment and Plan (Free Text) Assessment: 76 yr old F admitted for dehydration and mechanical fall at home , found to have acute weakness with PMHx of uncontrolled IDDM, HTN, CKD , depression, Hydronephrosis, and L wrist fx s/p ORIF in October 2016. Patient's weakness persist, otherwise is stable. PT/OT recommend TCU, but pt was not accepted and refuses rehab. Psych recommended [facility] screening and adult protective services ( APS) . APS may be arranged upon discharge. [facility] refuses to screen until UA is negative for infection. Infectious disease is onboard and we will follow recommendations as to whether Asymptomatic bacteuria should be treated. 1) Asymptomatic bacteuria -chronic, recurrent, pt denies dysuria, is afebrile, chronic leukocytosis improved -ID consult appreciated-Dr. Lugo : will follow recommendations -repeat urinalysis: positive for nitrites, large leukocyte esterase, high microscopic bacteria -f/u urine culture 2) Weakness s/p mechanical fall -afebrile, leukocytosis 13.2, chronic thrombocytosis improved compared to last admission -dehydration resolved, CMP wnl, CKD stage 4, CK wnl -EKG: NSR, inferior infarct of undetermined age -CXR: Poor inspiration with low lung volumes, mild crowded bronchovascular markings and mild bibasilar atelectasis -CT Head: No ICH, nonspecific white matter changes (see full report) -Lactic Acid elevated at 2.4, PT/INR/PTT wnl, BCx negative x 4days -Vit B12 high at >1,000pg/mL , Folate wnl, Vit D low at 29.1 -social service consult appreciated -PT/OT consult appreciated: recommend TCU 3) Previous Left Wrist Fx s/p ORIF in October 2016 -stable, cast removed, patient failed to f/u after discharge from hospital on last admission -Tylenol 650mg PO Q6H PRN mild pain, Morphine 2mg IVP Q6H PRN moderate pain -Ortho Consult appreciated: Dr. Carrizales -left wrist xray: stable ORIF, satifactory alignment, no evidence of hardware failure, multi-articular DJD (see full report) -continue PT/OT: recommend TCU, but pt was not accepted and refuses rehab 4) CKD Stage 4 (GFR 15-29) -stable, chronic -patient is at baseline with BUN/Cr 36/2.5 w/ GFR 19 -Nephrology consult appreciated-Dr. Harley: will follow recommendations ( continue Sevelamer, start Vit D, renal and diabetic diet) -UPEP wnl, SPEP consistent with acute inflammatory pattern 5) IDDM -Uncontrolled, HbA1c 10.8 on 11/11/16 -Continue home meds (Glipizide SR 5mg PO Daily, Prandin 20mg PO TIDWM, Levemir 20mg SC HS, adjusted to Lispro 12mg SC BID, ASA 81mg PO Daily) -Lispro Sliding Scale (medium dose scale) -monitor POC glucose ACHS 6) HLD -stable -lipid panel 08/31/16: (Triglycerides 213, Cholesterol 108, LDL 36, HDL 25) -continue home med (Atorvastatin 40mg PO Daily) 7) HTN -controlled -continue home meds (Metoprolol 12.5mg PO BID, Valsartan 80mg PO Daily) -monitor BP 8) Depression/Anxiety -chronic -Paxil 20mg PO Daily -psych consult appreciated-Dr. Dove: will follow recommendations: [facility] screening and APS 9) DVT Prophylaxis -Heparin 5,000 units SC Q12 -SCDs for now <Jose Juan Boswell - Last Filed: 01/20/17 06:50> Objective - Vital Signs/Intake and Output Vital Signs (last 24 hours): Temp Pulse Resp BP Pulse Ox 98.7 F 65 17 113/67 97 01/19/17 15:41 01/19/17 21:48 01/19/17 15:41 01/19/17 21:48 01/19/17 15:41 - Medications Medications: Current Medications Acetaminophen (Tylenol 325mg Tab) 650 mg PO Q6 PRN PRN Reason: Pain, Mild (1-3) Acetaminophen (Tylenol 325mg Tab) 650 mg PO Q6 PRN PRN Reason: Fever >100.4 F Last Admin: 01/19/17 00:48 Dose: 650 mg Aspirin (Ecotrin) 81 mg PO DAILY [facility] Last Admin: 01/19/17 10:21 Dose: 81 mg Atorvastatin Calcium (Lipitor) 40 mg PO DAILY [facility] Last Admin: 01/19/17 10:23 Dose: 40 mg Ergocalciferol (Drisdol 50,000 Intl Units Cap) 1 cap PO Q7D [facility] Last Admin: 01/18/17 17:00 Dose: 1 cap Glipizide (Glucotrol Xl) 5 mg PO DAILY [facility] Last Admin: 01/19/17 10:21 Dose: 5 mg Heparin Sodium (Porcine) (Heparin) 5,000 units SC Q12 [facility] PRN Reason: Protocol Last Admin: 01/19/17 21:44 Dose: 5,000 units Ceftriaxone Sodium 1 gm/ (Sodium Chloride) 100 mls @ 100 mls/hr IVPB DAILY [facility] Last Admin: 01/19/17 10:19 Dose: 100 mls/hr Insulin Detemir (Levemir) 20 units SC HS [facility] Last Admin: 01/19/17 21:47 Dose: 20 units Insulin Human Lispro (Humalog) 0 units SC ACHS [facility] PRN Reason: Protocol Last Admin: 01/19/17 17:52 Dose: 2 units Insulin Human Lispro (Humalog) 12 units SC BID [facility] Last Admin: 01/19/17 17:49 Dose: 12 unit Metoprolol Tartrate (Lopressor) 12.5 mg PO Q12 [facility] Last Admin: 01/19/17 21:48 Dose: 12.5 mg Morphine Sulfate (Morphine) 2 mg IVP Q6 PRN PRN Reason: Pain, moderate (4-7) Last Admin: 01/17/17 13:47 Dose: 2 mg Multivitamins/Minerals (Therapeutic-M Tab) 1 tab PO DAILY [facility] Last Admin: 01/19/17 10:23 Dose: 1 tab Paroxetine HCl (Paxil) 20 mg PO DAILY [facility] Last Admin: 01/19/17 10:20 Dose: 20 mg Repaglinide (Prandin) 2 mg PO TIDWM [facility] Last Admin: 01/19/17 17:48 Dose: 2 mg Saccharomyces Boulardii (Florastor) 250 mg PO BID [facility] Last Admin: 01/19/17 17:48 Dose: 250 mg Senna/Docusate Sodium (Senokot S 50 Mg-8.6 Mg) 2 tab PO HS PRN PRN Reason: Constipation Sevelamer HCl (Renagel) 800 mg PO TID [facility] Last Admin: 01/19/17 17:48 Dose: 800 mg Sodium Bicarbonate (Sodium Bicarbonate Tab) 650 mg PO DAILY [facility] Last Admin: 01/19/17 10:20 Dose: 650 mg Valsartan (Diovan) 80 mg PO DAILY [facility] Last Admin: 01/19/17 10:20 Dose: 80 mg - Labs Labs: 01/18/17 06:05 01/16/17 06:35 PT 12.0 Seconds (9.8-13.1) 01/13/17 12:00 INR 1.1 (0.9-1.2) 01/13/17 12:00 APTT 29.7 Seconds (25.6-37.1) 01/13/17 12:00 Attending/Attestation - Attestation I have personally seen and examined this patient.: Yes I have fully participated in the care of the patient.: Yes I have reviewed all pertinent clinical information, including history, physical exam and plan: Yes
--- NOTE | 2017-01-18 17:50 | CP.PCM.CON ---
History of Present Illness - History of Present Illness History of Present Illness: INITIAL I D NOTE HAVE REVIEWED RECORDS INCLUDING MICROBIOLOGY CONSIDERING PERSISTAQNCE OF KLEBSIELLA,CKD WOULD RX START CEFTRIAXONE 1 GM IVPB Q24H Past Patient History - Infectious Disease Hx of Infectious Diseases: None - Past Medical History & Family History Past Medical History?: Yes - Past Social History Smoking Status: Never Smoked - CARDIAC Hx Hypercholesterolemia: Yes Hx Hypertension: Yes - PULMONARY Hx Chronic Obstructive Pulmonary Disease (COPD): Yes Hx Pneumonia: Yes - NEUROLOGICAL Hx Neurological Disorder: No - HEENT Hx HEENT Problems: Yes Other/Comment: uses eye glasses - RENAL Hx Chronic Kidney Disease: Yes - ENDOCRINE/METABOLIC Hx Endocrine Disorders: Yes Hx Diabetes Mellitus Type 2: Yes - HEMATOLOGICAL/ONCOLOGICAL Hx Human Immunodeficiency Virus (HIV): No - INTEGUMENTARY Hx Dermatological Problems: No - MUSCULOSKELETAL/RHEUMATOLOGICAL Hx Arthritis: Yes - GASTROINTESTINAL Hx Gastrointestinal Disorders: No - GENITOURINARY/GYNECOLOGICAL Hx Genitourinary Disorders: No - PSYCHIATRIC Hx Anxiety: Yes Hx Depression: Yes - SURGICAL HISTORY Hx Tonsillectomy: Yes - ANESTHESIA Hx Anesthesia: No Hx Anesthesia Reactions: No Hx Malignant Hyperthermia: No Meds Allergies/Adverse Reactions: Allergies Allergy/AdvReac Type Severity Reaction Status Date / Time No Known Allergies Allergy Verified 01/04/16 20:19 - Medications Medications: Current Medications Acetaminophen (Tylenol 325mg Tab) 650 mg PO Q6 PRN PRN Reason: Pain, Mild (1-3) Aspirin (Ecotrin) 81 mg PO DAILY [facility] Last Admin: 01/18/17 09:45 Dose: 81 mg Atorvastatin Calcium (Lipitor) 40 mg PO DAILY [facility] Last Admin: 01/18/17 09:47 Dose: 40 mg Ergocalciferol (Drisdol 50,000 Intl Units Cap) 1 cap PO Q7D [facility] Last Admin: 01/18/17 17:00 Dose: 1 cap Glipizide (Glucotrol Xl) 5 mg PO DAILY [facility] Last Admin: 01/18/17 09:45 Dose: 5 mg Heparin Sodium (Porcine) (Heparin) 5,000 units SC Q12 [facility] PRN Reason: Protocol Last Admin: 01/18/17 09:45 Dose: 5,000 units Ceftriaxone Sodium 1 gm/ (Sodium Chloride) 100 mls @ 100 mls/hr IVPB DAILY [facility] Insulin Detemir (Levemir) 20 units SC HS [facility] Last Admin: 01/17/17 21:58 Dose: 20 units Insulin Human Lispro (Humalog) 10 units SC BID [facility] Last Admin: 01/18/17 16:59 Dose: 10 units Insulin Human Lispro (Humalog) 0 units SC ACHS [facility] PRN Reason: Protocol Last Admin: 01/18/17 17:00 Dose: 13 units Metoprolol Tartrate (Lopressor) 12.5 mg PO Q12 [facility] Last Admin: 01/18/17 09:44 Dose: 12.5 mg Morphine Sulfate (Morphine) 2 mg IVP Q6 PRN PRN Reason: Pain, moderate (4-7) Last Admin: 01/17/17 13:47 Dose: 2 mg Multivitamins/Minerals (Therapeutic-M Tab) 1 tab PO DAILY [facility] Last Admin: 01/18/17 09:44 Dose: 1 tab Paroxetine HCl (Paxil) 20 mg PO DAILY [facility] Last Admin: 01/18/17 09:47 Dose: 20 mg Repaglinide (Prandin) 2 mg PO TIDWM [facility] Last Admin: 01/18/17 17:01 Dose: 2 mg Senna/Docusate Sodium (Senokot S 50 Mg-8.6 Mg) 2 tab PO HS PRN PRN Reason: Constipation Sevelamer HCl (Renagel) 800 mg PO TID [facility] Last Admin: 01/18/17 17:00 Dose: 800 mg Sodium Bicarbonate (Sodium Bicarbonate Tab) 650 mg PO DAILY [facility] Last Admin: 01/18/17 09:47 Dose: 650 mg Valsartan (Diovan) 80 mg PO DAILY [facility] Last Admin: 01/18/17 09:45 Dose: 80 mg Results - Vital Signs Recent Vital Signs: Last Vital Signs Temp 98.4 F 01/18/17 15:54 Pulse 61 01/18/17 15:54 Resp 18 01/18/17 15:54 BP 115/82 01/18/17 15:54 Pulse Ox 97 01/18/17 15:54 - Labs Result Diagrams: 01/18/17 06:05 01/16/17 06:35 Labs: Laboratory Results - last 24 hr 01/15/17 01/17/17 01/18/17 06:00 20:59 06:05 WBC 13.2 H RBC 4.48 Hgb 11.4 L Hct 37.1 MCV 82.8 D MCH 25.3 L MCHC 30.6 L RDW 16.4 H Plt Count 424 H POC Glucose (mg/dL) 97 Albumin (PEP) 3.1 L Bdnfw-5-Woxhltivx 0.5 H Aknwz-8-Fvwcpjttt 1.0 H Qkfi-4-Ewtqwuia 0.4 Zzbt-4-Qqknrwxm 0.5 Gamma Globulins 1.5 Abnorm Protein Band 1 TEST NOT PERFORMED Abnorm Protein Band 2 TEST NOT PERFORMED Abnorm Protein Band 3 TEST NOT PERFORMED Urine Color Urine Clarity Urine pH Ur Specific Slaughters Urine Protein Urine Glucose (UA) Urine Ketones Urine Blood Urine Nitrate Urine Bilirubin Urine Urobilinogen Ur Leukocyte Esterase Urine RBC (Auto) Urine WBC Clumps (Auto) Urine Microscopic WBC Urine Bacteria PETAR & SPEP Interp See note 01/18/17 01/18/17 01/18/17 06:16 10:03 10:54 WBC RBC Hgb Hct MCV MCH MCHC RDW Plt Count POC Glucose (mg/dL) 191 H 322 H Albumin (PEP) Sgbrf-1-Vriabjnku Dhnhf-5-Qsfozgblg Piei-9-Yzfecnlj Hldc-3-Lyuisguf Gamma Globulins Abnorm Protein Band 1 Abnorm Protein Band 2 Abnorm Protein Band 3 Urine Color Maya Urine Clarity Turbid Urine pH 6.0 Ur Specific Slaughters 1.010 Urine Protein 100 Urine Glucose (UA) Neg Urine Ketones Negative Urine Blood Moderate Urine Nitrate Positive H Urine Bilirubin Negative Urine Urobilinogen 0.2-1.0 Ur Leukocyte Esterase Large Urine RBC (Auto) 42 H Urine WBC Clumps (Auto) Few H Urine Microscopic WBC 3132 H Urine Bacteria Occ H PETAR & SPEP Interp 01/18/17 15:49 WBC RBC Hgb Hct MCV MCH MCHC RDW Plt Count POC Glucose (mg/dL) 209 H Albumin (PEP) Dtdiw-3-Rntrjceju Fjfww-6-Pcjukuvxj Urhb-9-Ougsswrd Uujq-1-Zajgeulz Gamma Globulins Abnorm Protein Band 1 Abnorm Protein Band 2 Abnorm Protein Band 3 Urine Color Urine Clarity Urine pH Ur Specific Slaughters Urine Protein Urine Glucose (UA) Urine Ketones Urine Blood Urine Nitrate Urine Bilirubin Urine Urobilinogen Ur Leukocyte Esterase Urine RBC (Auto) Urine WBC Clumps (Auto) Urine Microscopic WBC Urine Bacteria PETAR & SPEP Interp
[2017-01-18] MEDS: Insulin Detemir 100 Units/ml Inj SC SCH (22:11)
--- NOTE | 2017-01-19 06:50 | CP.PCM.PN ---
<Lissa Lagunas - Last Filed: 01/19/17 13:22> Subjective - Date & Time of Evaluation Date of Evaluation: 01/19/17 Time of Evaluation: 07:20 - Subjective Subjective: Patient seen and examined at bedside with Dr. Woody. Patient had febrile episode overnight with Tmax 101.7 F at 1am. Denies dysuria, nausea, vomiting or weakness. Patient reports she feels well and would like to go home. Patient was informed that as per ID we will treat her bacteuria with IV antibiotics and it has resolved she will be evaluated by [facility] for involuntary psych. Patient is aware and refuses to go to sub-acute rehab as recommended by PT. Reiterated to patient to use call madrigal to ask for bed tee as she has repeatedly voided in bed , nursing staff offer her bed tee frequently to aid patient in not voiding in bed. Objective - Vital Signs/Intake and Output Vital Signs (last 24 hours): Temp Pulse Resp BP Pulse Ox 100 F H 70 20 114/65 96 01/19/17 01:48 01/19/17 00:30 01/19/17 00:30 01/19/17 00:30 01/19/17 00:30 - Medications Medications: Current Medications Acetaminophen (Tylenol 325mg Tab) 650 mg PO Q6 PRN PRN Reason: Pain, Mild (1-3) Acetaminophen (Tylenol 325mg Tab) 650 mg PO Q6 PRN PRN Reason: Fever >100.4 F Last Admin: 01/19/17 00:48 Dose: 650 mg Aspirin (Ecotrin) 81 mg PO DAILY [facility] Last Admin: 01/18/17 09:45 Dose: 81 mg Atorvastatin Calcium (Lipitor) 40 mg PO DAILY [facility] Last Admin: 01/18/17 09:47 Dose: 40 mg Ergocalciferol (Drisdol 50,000 Intl Units Cap) 1 cap PO Q7D [facility] Last Admin: 01/18/17 17:00 Dose: 1 cap Glipizide (Glucotrol Xl) 5 mg PO DAILY [facility] Last Admin: 01/18/17 09:45 Dose: 5 mg Heparin Sodium (Porcine) (Heparin) 5,000 units SC Q12 [facility] PRN Reason: Protocol Last Admin: 01/18/17 22:04 Dose: 5,000 units Ceftriaxone Sodium 1 gm/ (Sodium Chloride) 100 mls @ 100 mls/hr IVPB DAILY [facility] Insulin Detemir (Levemir) 20 units SC HS [facility] Last Admin: 01/18/17 22:11 Dose: 20 units Insulin Human Lispro (Humalog) 0 units SC ACHS [facility] PRN Reason: Protocol Last Admin: 01/18/17 22:05 Dose: Not Given Insulin Human Lispro (Humalog) 12 units SC BID [facility] Metoprolol Tartrate (Lopressor) 12.5 mg PO Q12 [facility] Last Admin: 01/18/17 22:07 Dose: 12.5 mg Morphine Sulfate (Morphine) 2 mg IVP Q6 PRN PRN Reason: Pain, moderate (4-7) Last Admin: 01/17/17 13:47 Dose: 2 mg Multivitamins/Minerals (Therapeutic-M Tab) 1 tab PO DAILY [facility] Last Admin: 01/18/17 09:44 Dose: 1 tab Paroxetine HCl (Paxil) 20 mg PO DAILY [facility] Last Admin: 01/18/17 09:47 Dose: 20 mg Repaglinide (Prandin) 2 mg PO TIDWM [facility] Last Admin: 01/18/17 17:01 Dose: 2 mg Senna/Docusate Sodium (Senokot S 50 Mg-8.6 Mg) 2 tab PO HS PRN PRN Reason: Constipation Sevelamer HCl (Renagel) 800 mg PO TID [facility] Last Admin: 01/18/17 17:00 Dose: 800 mg Sodium Bicarbonate (Sodium Bicarbonate Tab) 650 mg PO DAILY [facility] Last Admin: 01/18/17 09:47 Dose: 650 mg Valsartan (Diovan) 80 mg PO DAILY [facility] Last Admin: 01/18/17 09:45 Dose: 80 mg - Labs Labs: 01/18/17 06:05 01/16/17 06:35 PT 12.0 Seconds (9.8-13.1) 01/13/17 12:00 INR 1.1 (0.9-1.2) 01/13/17 12:00 APTT 29.7 Seconds (25.6-37.1) 01/13/17 12:00 - Constitutional Appears: Non-toxic, No Acute Distress - Head Exam Head Exam: ATRAUMATIC, NORMOCEPHALIC - Eye Exam Eye Exam: EOMI, PERRL - ENT Exam ENT Exam: Mucous Membranes Moist - Neck Exam Neck Exam: Full ROM. absent: Lymphadenopathy - Respiratory Exam Respiratory Exam: Clear to Ausculation Bilateral, NORMAL BREATHING PATTERN - Cardiovascular Exam Cardiovascular Exam: REGULAR RHYTHM, +S1, +S2 - GI/Abdominal Exam GI & Abdominal Exam: Soft (obese), Normal Bowel Sounds. absent: Distended, Tenderness - Extremities Exam Extremities Exam: Full ROM (left volar wound intact, no drainage,erythema or warmth). absent: Pedal Edema, Tenderness - Back Exam Back Exam: absent: CVA tenderness (L), CVA tenderness (R) - Neurological Exam Neurological Exam: Alert, Awake, CN II-XII Intact, Oriented x3 - Psychiatric Exam Psychiatric exam: Flat Affect, Normal Mood - Skin Skin Exam: Dry, Intact, Normal Color, Warm Assessment and Plan - Assessment and Plan (Free Text) Assessment: 76 yr old F admitted for dehydration and mechanical fall at home , found to have acute weakness with PMHx of uncontrolled IDDM, HTN, CKD , depression, Hydronephrosis, and L wrist fx s/p ORIF in October 2016. Patient's weakness persist, otherwise is stable. PT/OT recommend TCU, but pt was not accepted and refuses sub-acute rehab. Psych recommended [facility] screening and adult protective services (APS) . APS may be arranged upon discharge. [facility] refuses to screen until UA is negative for infection. Patient had fever T max 101.7 F this AM, infectious disease is onboard and appreciated, started on Ceftriaxone 1gm IV Q24H. 1) Asymptomatic bacteuria -chronic, recurrent, pt denies dysuria,chronic leukocytosis improved -ID consult appreciated-Dr. Lugo : will follow recommendations -repeat urinalysis: positive for nitrites, large leukocyte esterase, high microscopic bacteria -fever T max 101.7 F this AM, Day 1 of Ceftriaxone 1gm IV Q24H -f/u urine culture 2) Weakness s/p mechanical fall -afebrile, leukocytosis 13.2 yesterday , chronic thrombocytosis improved compared to last admission -dehydration resolved, CMP wnl, CKD stage 4, CK wnl -EKG: NSR, inferior infarct of undetermined age -CXR: Poor inspiration with low lung volumes, mild crowded bronchovascular markings and mild bibasilar atelectasis -CT Head: No ICH, nonspecific white matter changes (see full report) -Lactic Acid elevated at 2.4, PT/INR/PTT wnl, BCx negative x 4days -Vit B12 high at >1,000pg/mL , Folate wnl, Vit D low at 29.1 -social service consult appreciated -PT/OT consult appreciated: recommend TCU 3) Previous Left Wrist Fx s/p ORIF in October 2016 -stable, cast and javi removed, patient failed to f/u after discharge from hospital on last admission -Tylenol 650mg PO Q6H PRN mild pain, Morphine 2mg IVP Q6H PRN moderate pain -Ortho Consult appreciated: Dr. Carrizales -left wrist xray: stable ORIF, satifactory alignment, no evidence of hardware failure, multi-articular DJD (see full report) -continue PT/OT: recommend TCU, but pt was not accepted and refuses rehab 4) CKD Stage 4 (GFR 15-29) -stable, chronic -patient is at baseline with BUN/Cr 36/2.5 w/ GFR 19 -Nephrology consult appreciated-Dr. Harley: will follow recommendations ( continue Sevelamer, start Vit D, renal and diabetic diet) -UPEP wnl, SPEP consistent with acute inflammatory pattern 5) IDDM -Uncontrolled, HbA1c 10.8 on 11/11/16 -Continue home meds (Glipizide SR 5mg PO Daily, Prandin 20mg PO TIDWM, Levemir 20mg SC HS, adjusted to Lispro 12mg SC BID, ASA 81mg PO Daily) -Lispro Sliding Scale (medium dose scale) -monitor POC glucose ACHS 6) HLD -stable -lipid panel 08/31/16: (Triglycerides 213, Cholesterol 108, LDL 36, HDL 25) -continue home med (Atorvastatin 40mg PO Daily) 7) HTN -controlled -continue home meds (Metoprolol 12.5mg PO BID, Valsartan 80mg PO Daily) -monitor BP 8) Depression/Anxiety -chronic -Paxil 20mg PO Daily -psych consult appreciated-Dr. Dove: will follow recommendations: [facility] screening and APS 9) DVT and GI Prophylaxis -Heparin 5,000 units SC Q12 -SCDs for now -Florastor 250mg PO BID <Min Woody - Last Filed: 01/23/17 06:46> Objective - Vital Signs/Intake and Output Vital Signs (last 24 hours): Temp Pulse Resp BP Pulse Ox 98.3 F 57 L 17 107/69 96 01/23/17 01:00 01/22/17 21:00 01/23/17 01:00 01/22/17 21:00 01/23/17 01:00 - Medications Medications: Current Medications Acetaminophen (Tylenol 325mg Tab) 650 mg PO Q6 PRN PRN Reason: Pain, Mild (1-3) Acetaminophen (Tylenol 325mg Tab) 650 mg PO Q6 PRN PRN Reason: Fever >100.4 F Last Admin: 01/19/17 00:48 Dose: 650 mg Aspirin (Ecotrin) 81 mg PO DAILY [facility] Last Admin: 01/22/17 08:58 Dose: 81 mg Atorvastatin Calcium (Lipitor) 40 mg PO DAILY [facility] Last Admin: 01/22/17 08:59 Dose: 40 mg Ergocalciferol (Drisdol 50,000 Intl Units Cap) 1 cap PO Q7D [facility] Last Admin: 01/18/17 17:00 Dose: 1 cap Glipizide (Glucotrol Xl) 5 mg PO DAILY [facility] Last Admin: 01/22/17 08:58 Dose: 5 mg Heparin Sodium (Porcine) (Heparin) 5,000 units SC Q12 [facility] PRN Reason: Protocol Last Admin: 01/22/17 21:56 Dose: 5,000 units Ceftriaxone Sodium 1 gm/ (Sodium Chloride) 100 mls @ 100 mls/hr IVPB DAILY [facility] Last Admin: 01/22/17 09:13 Dose: 100 mls/hr Insulin Detemir (Levemir) 20 units SC HS [facility] Last Admin: 01/22/17 22:18 Dose: 20 units Insulin Human Lispro (Humalog) 0 units SC ACHS [facility] PRN Reason: Protocol Last Admin: 01/22/17 22:19 Dose: Not Given Insulin Human Lispro (Humalog) 12 units SC BID [facility] Last Admin: 01/22/17 17:20 Dose: 12 unit Metoprolol Tartrate (Lopressor) 12.5 mg PO Q12 [facility] Last Admin: 01/22/17 21:00 Dose: Not Given Morphine Sulfate (Morphine) 2 mg IVP Q6 PRN PRN Reason: Pain, moderate (4-7) Last Admin: 01/17/17 13:47 Dose: 2 mg Multivitamins/Minerals (Therapeutic-M Tab) 1 tab PO DAILY [facility] Last Admin: 01/22/17 09:01 Dose: 1 tab Paroxetine HCl (Paxil) 20 mg PO DAILY [facility] Last Admin: 01/22/17 09:00 Dose: 20 mg Repaglinide (Prandin) 2 mg PO TIDWM [facility] Last Admin: 01/22/17 17:21 Dose: 2 mg Saccharomyces Boulardii (Florastor) 250 mg PO BID [facility] Last Admin: 01/22/17 17:17 Dose: 250 mg Senna/Docusate Sodium (Senokot S 50 Mg-8.6 Mg) 2 tab PO HS PRN PRN Reason: Constipation Sevelamer HCl (Renagel) 800 mg PO TID [facility] Last Admin: 01/22/17 17:21 Dose: 800 mg Sodium Bicarbonate (Sodium Bicarbonate Tab) 650 mg PO DAILY [facility] Last Admin: 01/22/17 09:01 Dose: 650 mg Valsartan (Diovan) 80 mg PO DAILY [facility] Last Admin: 01/22/17 08:58 Dose: 80 mg - Labs Labs: 01/21/17 05:30 01/22/17 16:00 PT 12.0 Seconds (9.8-13.1) 01/13/17 12:00 INR 1.1 (0.9-1.2) 01/13/17 12:00 APTT 29.7 Seconds (25.6-37.1) 01/13/17 12:00 Attending/Attestation - Attestation I have personally seen and examined this patient.: Yes I have fully participated in the care of the patient.: Yes I have reviewed all pertinent clinical information, including history, physical exam and plan: Yes
[2017-01-19] MEDS: Insulin Lispro (humaLOG) 100 Units/ml Inj SC SCH ×6 (08:22→22:00)
[2017-01-19] MEDS: GlipiZIDE 5 mg SR Tab PO SCH (10:21)
[2017-01-19] MEDS: Multivitamin With Minerals Tab PO SCH (10:23)
--- NOTE | 2017-01-19 11:03 | RAD ---
HISTORY: fever COMPARISON: 01/13/2017. FINDINGS: LUNGS: There is mild pulmonary hyperinflation and peribronchial thickening with chronic changes in both lungs. No focal consolidation. PLEURA: No significant pleural effusion identified, no pneumothorax apparent. CARDIOVASCULAR: Normal. OSSEOUS STRUCTURES: No significant abnormalities. VISUALIZED UPPER ABDOMEN: Normal. OTHER FINDINGS: None. IMPRESSION: No active pulmonary disease. COPD.
[2017-01-19] MEDS: Saccharomyces Boulardi 250 mg Cap PO SCH ×2 (12:54→17:48)
--- NOTE | 2017-01-19 20:22 | CP.PCM.PN ---
Subjective - Date & Time of Evaluation Date of Evaluation: 01/19/17 Time of Evaluation: 14:00 - Subjective Subjective: SEEN ON RENAL F/U FEELS IMPROVED ON IVAB .. ROCEPHIN .. FOR UTI Objective - Vital Signs/Intake and Output Vital Signs (last 24 hours): Temp Pulse Resp BP Pulse Ox 98.7 F 58 L 17 119/75 97 01/19/17 15:41 01/19/17 15:41 01/19/17 15:41 01/19/17 15:41 01/19/17 15:41 - Medications Medications: Current Medications Acetaminophen (Tylenol 325mg Tab) 650 mg PO Q6 PRN PRN Reason: Pain, Mild (1-3) Acetaminophen (Tylenol 325mg Tab) 650 mg PO Q6 PRN PRN Reason: Fever >100.4 F Last Admin: 01/19/17 00:48 Dose: 650 mg Aspirin (Ecotrin) 81 mg PO DAILY [facility] Last Admin: 01/19/17 10:21 Dose: 81 mg Atorvastatin Calcium (Lipitor) 40 mg PO DAILY [facility] Last Admin: 01/19/17 10:23 Dose: 40 mg Ergocalciferol (Drisdol 50,000 Intl Units Cap) 1 cap PO Q7D [facility] Last Admin: 01/18/17 17:00 Dose: 1 cap Glipizide (Glucotrol Xl) 5 mg PO DAILY [facility] Last Admin: 01/19/17 10:21 Dose: 5 mg Heparin Sodium (Porcine) (Heparin) 5,000 units SC Q12 [facility] PRN Reason: Protocol Last Admin: 01/19/17 10:21 Dose: 5,000 units Ceftriaxone Sodium 1 gm/ (Sodium Chloride) 100 mls @ 100 mls/hr IVPB DAILY [facility] Last Admin: 01/19/17 10:19 Dose: 100 mls/hr Insulin Detemir (Levemir) 20 units SC HS [facility] Last Admin: 01/18/17 22:11 Dose: 20 units Insulin Human Lispro (Humalog) 0 units SC ACHS [facility] PRN Reason: Protocol Last Admin: 01/19/17 17:52 Dose: 2 units Insulin Human Lispro (Humalog) 12 units SC BID [facility] Last Admin: 01/19/17 17:49 Dose: 12 unit Metoprolol Tartrate (Lopressor) 12.5 mg PO Q12 [facility] Last Admin: 01/19/17 10:19 Dose: 12.5 mg Morphine Sulfate (Morphine) 2 mg IVP Q6 PRN PRN Reason: Pain, moderate (4-7) Last Admin: 01/17/17 13:47 Dose: 2 mg Multivitamins/Minerals (Therapeutic-M Tab) 1 tab PO DAILY [facility] Last Admin: 01/19/17 10:23 Dose: 1 tab Paroxetine HCl (Paxil) 20 mg PO DAILY [facility] Last Admin: 01/19/17 10:20 Dose: 20 mg Repaglinide (Prandin) 2 mg PO TIDWM [facility] Last Admin: 01/19/17 17:48 Dose: 2 mg Saccharomyces Boulardii (Florastor) 250 mg PO BID [facility] Last Admin: 01/19/17 17:48 Dose: 250 mg Senna/Docusate Sodium (Senokot S 50 Mg-8.6 Mg) 2 tab PO HS PRN PRN Reason: Constipation Sevelamer HCl (Renagel) 800 mg PO TID [facility] Last Admin: 01/19/17 17:48 Dose: 800 mg Sodium Bicarbonate (Sodium Bicarbonate Tab) 650 mg PO DAILY [facility] Last Admin: 01/19/17 10:20 Dose: 650 mg Valsartan (Diovan) 80 mg PO DAILY [facility] Last Admin: 01/19/17 10:20 Dose: 80 mg - Labs Labs: 01/18/17 06:05 01/16/17 06:35 PT 12.0 Seconds (9.8-13.1) 01/13/17 12:00 INR 1.1 (0.9-1.2) 01/13/17 12:00 APTT 29.7 Seconds (25.6-37.1) 01/13/17 12:00 Assessment and Plan - Assessment and Plan (Free Text) Assessment: CKD STAGE 4 e EGFR 23 .. STABLE ANEMIA OF CKD .. H/H STABLE UTI ON ROCEPHIN
[2017-01-19] MEDS: Insulin Detemir 100 Units/ml Inj SC SCH (21:47)
--- NOTE | 2017-01-20 06:53 | CP.PCM.PN ---
<Lissa Lagunas - Last Filed: 01/20/17 17:02> Subjective - Date & Time of Evaluation Date of Evaluation: 01/20/17 Time of Evaluation: 07:10 - Subjective Subjective: Patient seen and examined at bedside with Dr. Boswell. No acute events overnight. Has remained afebrile. Is tolerating PO diet, PT/OT and has normal urine and stool output. Patient is aware she is receiving IV antibiotics for UTI treatment and [place] [facility] [place]. Objective - Vital Signs/Intake and Output Vital Signs (last 24 hours): Temp Pulse Resp BP Pulse Ox 98.7 F 65 17 113/67 97 01/19/17 15:41 01/19/17 21:48 01/19/17 15:41 01/19/17 21:48 01/19/17 15:41 - Medications Medications: Current Medications Acetaminophen (Tylenol 325mg Tab) 650 mg PO Q6 PRN PRN Reason: Pain, Mild (1-3) Acetaminophen (Tylenol 325mg Tab) 650 mg PO Q6 PRN PRN Reason: Fever >100.4 F Last Admin: 01/19/17 00:48 Dose: 650 mg Aspirin (Ecotrin) 81 mg PO DAILY [facility] Last Admin: 01/19/17 10:21 Dose: 81 mg Atorvastatin Calcium (Lipitor) 40 mg PO DAILY [facility] Last Admin: 01/19/17 10:23 Dose: 40 mg Ergocalciferol (Drisdol 50,000 Intl Units Cap) 1 cap PO Q7D [facility] Last Admin: 01/18/17 17:00 Dose: 1 cap Glipizide (Glucotrol Xl) 5 mg PO DAILY [facility] Last Admin: 01/19/17 10:21 Dose: 5 mg Heparin Sodium (Porcine) (Heparin) 5,000 units SC Q12 [facility] PRN Reason: Protocol Last Admin: 01/19/17 21:44 Dose: 5,000 units Ceftriaxone Sodium 1 gm/ (Sodium Chloride) 100 mls @ 100 mls/hr IVPB DAILY [facility] Last Admin: 01/19/17 10:19 Dose: 100 mls/hr Insulin Detemir (Levemir) 20 units SC HS [facility] Last Admin: 01/19/17 21:47 Dose: 20 units Insulin Human Lispro (Humalog) 0 units SC ACHS [facility] PRN Reason: Protocol Last Admin: 01/19/17 17:52 Dose: 2 units Insulin Human Lispro (Humalog) 12 units SC BID [facility] Last Admin: 01/19/17 17:49 Dose: 12 unit Metoprolol Tartrate (Lopressor) 12.5 mg PO Q12 [facility] Last Admin: 01/19/17 21:48 Dose: 12.5 mg Morphine Sulfate (Morphine) 2 mg IVP Q6 PRN PRN Reason: Pain, moderate (4-7) Last Admin: 01/17/17 13:47 Dose: 2 mg Multivitamins/Minerals (Therapeutic-M Tab) 1 tab PO DAILY [facility] Last Admin: 01/19/17 10:23 Dose: 1 tab Paroxetine HCl (Paxil) 20 mg PO DAILY [facility] Last Admin: 01/19/17 10:20 Dose: 20 mg Repaglinide (Prandin) 2 mg PO TIDWM [facility] Last Admin: 01/19/17 17:48 Dose: 2 mg Saccharomyces Boulardii (Florastor) 250 mg PO BID [facility] Last Admin: 01/19/17 17:48 Dose: 250 mg Senna/Docusate Sodium (Senokot S 50 Mg-8.6 Mg) 2 tab PO HS PRN PRN Reason: Constipation Sevelamer HCl (Renagel) 800 mg PO TID [facility] Last Admin: 01/19/17 17:48 Dose: 800 mg Sodium Bicarbonate (Sodium Bicarbonate Tab) 650 mg PO DAILY [facility] Last Admin: 01/19/17 10:20 Dose: 650 mg Valsartan (Diovan) 80 mg PO DAILY [facility] Last Admin: 01/19/17 10:20 Dose: 80 mg - Labs Labs: 01/18/17 06:05 01/16/17 06:35 PT 12.0 Seconds (9.8-13.1) 01/13/17 12:00 INR 1.1 (0.9-1.2) 01/13/17 12:00 APTT 29.7 Seconds (25.6-37.1) 01/13/17 12:00 - Constitutional Appears: Non-toxic, No Acute Distress, Unkempt - Head Exam Head Exam: ATRAUMATIC, NORMOCEPHALIC - Eye Exam Eye Exam: EOMI, PERRL - ENT Exam ENT Exam: Mucous Membranes Moist - Neck Exam Neck Exam: Full ROM. absent: Lymphadenopathy - Respiratory Exam Respiratory Exam: Clear to Ausculation Bilateral, NORMAL BREATHING PATTERN - Cardiovascular Exam Cardiovascular Exam: REGULAR RHYTHM, +S1, +S2 - GI/Abdominal Exam GI & Abdominal Exam: Soft (obese), Normal Bowel Sounds. absent: Distended, Tenderness - Extremities Exam Extremities Exam: Full ROM. absent: Calf Tenderness, Pedal Edema - Back Exam Back Exam: absent: CVA tenderness (L), CVA tenderness (R) - Neurological Exam Neurological Exam: Alert, Awake, CN II-XII Intact, Oriented x3 - Psychiatric Exam Psychiatric exam: Normal Affect, Normal Mood - Skin Skin Exam: Dry, Intact, Warm (extensive seborrheic keratosis) Assessment and Plan - Assessment and Plan (Free Text) Assessment: 76 yr old F admitted for dehydration and mechanical fall at home , found to have acute weakness with PMHx of uncontrolled IDDM, HTN, CKD , depression, Hydronephrosis, and L wrist fx s/p ORIF in October 2016. Patient's weakness persist, otherwise is stable. PT/OT recommend TCU, but pt was not accepted and refuses sub-acute rehab. Psych [place] [facility] [place]) . APS may be arranged upon discharge. [facility] [place] UA is negative for infection. Patient has been afebrile > 24hrs, infectious disease is onboard and appreciated, on Ceftriaxone 1gm IV Q24H. UCx positive for Klebsiella pnuemoniae ssp. 1) Asymptomatic bacteuria -chronic, recurrent, pt denies dysuria,chronic leukocytosis improved -ID consult appreciated-Dr. Lugo : will follow recommendations -urinalysis: positive for nitrites, large leukocyte esterase, high microscopic bacteria -Day 2 of Ceftriaxone 1gm IV Q24H -urine culture positive for Klebsiella pnuemoniae ssp. -repeat UA tomorrow 2) Weakness s/p mechanical fall -afebrile, leukocytosis 13.2 01/18/17 , chronic thrombocytosis improved compared to last admission -dehydration resolved, CMP wnl, CKD stage 4, CK wnl -EKG: NSR, inferior infarct of undetermined age -CXR: Poor inspiration with low lung volumes, mild crowded bronchovascular markings and mild bibasilar atelectasis -CT Head: No ICH, nonspecific white matter changes (see full report) -Lactic Acid elevated at 2.4, PT/INR/PTT wnl, BCx negative x 4days -Vit B12 high at >1,000pg/mL , Folate wnl, Vit D low at 29.1 -social service consult appreciated -PT/OT consult appreciated: recommend TCU/[facility] 3) Previous Left Wrist Fx s/p ORIF in October 2016 -stable, cast and javi removed, patient failed to f/u after discharge from hospital on last admission -Tylenol 650mg PO Q6H PRN mild pain, Morphine 2mg IVP Q6H PRN moderate pain -Ortho Consult appreciated: Dr. Carrizales -left wrist xray: stable ORIF, satifactory alignment, no evidence of hardware failure, multi-articular DJD (see full report) -continue PT/OT: recommend TCU, but pt was not accepted and refuses rehab 4) CKD Stage 4 (GFR 15-29) -stable, chronic -patient is at baseline with BUN/Cr 36/2.5 w/ GFR 19 -Nephrology consult appreciated-Dr. Harley: will follow recommendations ( continue Sevelamer, start Vit D, renal and diabetic diet) -UPEP wnl, SPEP consistent with acute inflammatory pattern 5) IDDM -Uncontrolled, HbA1c 10.8 on 11/11/16 -Continue home meds (Glipizide SR 5mg PO Daily, Prandin 2mg PO TIDWM, Levemir 20mg SC HS, adjusted to Lispro 12mg SC BID) -Lispro Sliding Scale (medium dose scale) -monitor POC glucose ACHS -renal diet with moderate consistent carbohydrate 6) HLD -stable -lipid panel 08/31/16: (Triglycerides 213, Cholesterol 108, LDL 36, HDL 25) -continue home med (Atorvastatin 40mg PO Daily) 7) HTN -controlled -continue home meds (Metoprolol 12.5mg PO BID, Valsartan 80mg PO Daily, ASA 81mg PO Daily) -monitor BP 8) Depression/Anxiety -chronic -Paxil 20mg PO Daily -psych consult appreciated-Dr. Dove: will follow recommendations: [facility] [place] 9) DVT and GI Prophylaxis -Heparin 5,000 units SC Q12 -SCDs for now -Florastor 250mg PO BID <Jose Juan Boswell - Last Filed: 01/23/17 06:42> Objective - Vital Signs/Intake and Output Vital Signs (last 24 hours): Temp Pulse Resp BP Pulse Ox 98.3 F 57 L 17 107/69 96 01/23/17 01:00 01/22/17 21:00 01/23/17 01:00 01/22/17 21:00 01/23/17 01:00 - Medications Medications: Current Medications Acetaminophen (Tylenol 325mg Tab) 650 mg PO Q6 PRN PRN Reason: Pain, Mild (1-3) Acetaminophen (Tylenol 325mg Tab) 650 mg PO Q6 PRN PRN Reason: Fever >100.4 F Last Admin: 01/19/17 00:48 Dose: 650 mg Aspirin (Ecotrin) 81 mg PO DAILY [facility] Last Admin: 01/22/17 08:58 Dose: 81 mg Atorvastatin Calcium (Lipitor) 40 mg PO DAILY [facility] Last Admin: 01/22/17 08:59 Dose: 40 mg Ergocalciferol (Drisdol 50,000 Intl Units Cap) 1 cap PO Q7D [facility] Last Admin: 01/18/17 17:00 Dose: 1 cap Glipizide (Glucotrol Xl) 5 mg PO DAILY [facility] Last Admin: 01/22/17 08:58 Dose: 5 mg Heparin Sodium (Porcine) (Heparin) 5,000 units SC Q12 [facility] PRN Reason: Protocol Last Admin: 01/22/17 21:56 Dose: 5,000 units Ceftriaxone Sodium 1 gm/ (Sodium Chloride) 100 mls @ 100 mls/hr IVPB DAILY [facility] Last Admin: 01/22/17 09:13 Dose: 100 mls/hr Insulin Detemir (Levemir) 20 units SC HS [facility] Last Admin: 01/22/17 22:18 Dose: 20 units Insulin Human Lispro (Humalog) 0 units SC ACHS [facility] PRN Reason: Protocol Last Admin: 01/22/17 22:19 Dose: Not Given Insulin Human Lispro (Humalog) 12 units SC BID [facility] Last Admin: 01/22/17 17:20 Dose: 12 unit Metoprolol Tartrate (Lopressor) 12.5 mg PO Q12 [facility] Last Admin: 01/22/17 21:00 Dose: Not Given Morphine Sulfate (Morphine) 2 mg IVP Q6 PRN PRN Reason: Pain, moderate (4-7) Last Admin: 01/17/17 13:47 Dose: 2 mg Multivitamins/Minerals (Therapeutic-M Tab) 1 tab PO DAILY [facility] Last Admin: 01/22/17 09:01 Dose: 1 tab Paroxetine HCl (Paxil) 20 mg PO DAILY [facility] Last Admin: 01/22/17 09:00 Dose: 20 mg Repaglinide (Prandin) 2 mg PO TIDWM [facility] Last Admin: 01/22/17 17:21 Dose: 2 mg Saccharomyces Boulardii (Florastor) 250 mg PO BID [facility] Last Admin: 01/22/17 17:17 Dose: 250 mg Senna/Docusate Sodium (Senokot S 50 Mg-8.6 Mg) 2 tab PO HS PRN PRN Reason: Constipation Sevelamer HCl (Renagel) 800 mg PO TID [facility] Last Admin: 01/22/17 17:21 Dose: 800 mg Sodium Bicarbonate (Sodium Bicarbonate Tab) 650 mg PO DAILY [facility] Last Admin: 01/22/17 09:01 Dose: 650 mg Valsartan (Diovan) 80 mg PO DAILY [facility] Last Admin: 01/22/17 08:58 Dose: 80 mg - Labs Labs: 01/21/17 05:30 01/22/17 16:00 PT 12.0 Seconds (9.8-13.1) 01/13/17 12:00 INR 1.1 (0.9-1.2) 01/13/17 12:00 APTT 29.7 Seconds (25.6-37.1) 01/13/17 12:00 Attending/Attestation - Attestation I have personally seen and examined this patient.: Yes I have fully participated in the care of the patient.: Yes I have reviewed all pertinent clinical information, including history, physical exam and plan: Yes
[2017-01-20] MEDS: Insulin Lispro (humaLOG) 100 Units/ml Inj SC SCH ×6 (07:30→22:27)
--- NOTE | 2017-01-20 08:33 | CP.PCM.PN ---
Subjective - Date & Time of Evaluation Date of Evaluation: 01/20/17 Time of Evaluation: 08:30 - Subjective Subjective: S- no discomfort L wrist whatsoever Objective - Vital Signs/Intake and Output Vital Signs (last 24 hours): Temp Pulse Resp BP Pulse Ox 98.3 F 59 L 18 103/57 L 97 01/20/17 07:44 01/20/17 07:44 01/20/17 07:44 01/20/17 07:44 01/20/17 07:44 - Medications Medications: Current Medications Acetaminophen (Tylenol 325mg Tab) 650 mg PO Q6 PRN PRN Reason: Pain, Mild (1-3) Acetaminophen (Tylenol 325mg Tab) 650 mg PO Q6 PRN PRN Reason: Fever >100.4 F Last Admin: 01/19/17 00:48 Dose: 650 mg Aspirin (Ecotrin) 81 mg PO DAILY [facility] Last Admin: 01/19/17 10:21 Dose: 81 mg Atorvastatin Calcium (Lipitor) 40 mg PO DAILY [facility] Last Admin: 01/19/17 10:23 Dose: 40 mg Ergocalciferol (Drisdol 50,000 Intl Units Cap) 1 cap PO Q7D [facility] Last Admin: 01/18/17 17:00 Dose: 1 cap Glipizide (Glucotrol Xl) 5 mg PO DAILY [facility] Last Admin: 01/19/17 10:21 Dose: 5 mg Heparin Sodium (Porcine) (Heparin) 5,000 units SC Q12 [facility] PRN Reason: Protocol Last Admin: 01/19/17 21:44 Dose: 5,000 units Ceftriaxone Sodium 1 gm/ (Sodium Chloride) 100 mls @ 100 mls/hr IVPB DAILY [facility] Last Admin: 01/19/17 10:19 Dose: 100 mls/hr Insulin Detemir (Levemir) 20 units SC HS [facility] Last Admin: 01/19/17 21:47 Dose: 20 units Insulin Human Lispro (Humalog) 0 units SC ACHS [facility] [place] PRN Reason: Protocol Last Admin: 01/20/17 07:30 Dose: Not Given Insulin Human Lispro (Humalog) 12 units SC BID [facility] Last Admin: 01/19/17 17:49 Dose: 12 unit Metoprolol Tartrate (Lopressor) 12.5 mg PO Q12 [facility] Last Admin: 01/19/17 21:48 Dose: 12.5 mg Morphine Sulfate (Morphine) 2 mg IVP Q6 PRN PRN Reason: Pain, moderate (4-7) Last Admin: 01/17/17 13:47 Dose: 2 mg Multivitamins/Minerals (Therapeutic-M Tab) 1 tab PO DAILY [facility] Last Admin: 01/19/17 10:23 Dose: 1 tab Paroxetine HCl (Paxil) 20 mg PO DAILY [facility] Last Admin: 01/19/17 10:20 Dose: 20 mg Repaglinide (Prandin) 2 mg PO TIDWM [facility] Last Admin: 01/19/17 17:48 Dose: 2 mg Saccharomyces Boulardii (Florastor) 250 mg PO BID [facility] Last Admin: 01/19/17 17:48 Dose: 250 mg Senna/Docusate Sodium (Senokot S 50 Mg-8.6 Mg) 2 tab PO HS PRN PRN Reason: Constipation Sevelamer HCl (Renagel) 800 mg PO TID [facility] Last Admin: 01/19/17 17:48 Dose: 800 mg Sodium Bicarbonate (Sodium Bicarbonate Tab) 650 mg PO DAILY [facility] Last Admin: 01/19/17 10:20 Dose: 650 mg Valsartan (Diovan) 80 mg PO DAILY [facility] Last Admin: 01/19/17 10:20 Dose: 80 mg - Labs Labs: 01/18/17 06:05 01/16/17 06:35 PT 12.0 Seconds (9.8-13.1) 01/13/17 12:00 INR 1.1 (0.9-1.2) 01/13/17 12:00 APTT 29.7 Seconds (25.6-37.1) 01/13/17 12:00 - Skin Additional comments: Objective systemic- as per DR Boswell Musculoskekltal stance/gait- deferred ROM L wrist painless wound benignXray- healed disatl radius fx javi removed Assessment and Plan - Assessment and Plan (Free Text) Assessment: A- [id number] distal radius fx P- orthopedically stable ROM< exercises
[2017-01-20] MEDS: Saccharomyces Boulardi 250 mg Cap PO SCH ×2 (08:54→17:54)
[2017-01-20] MEDS: GlipiZIDE 5 mg SR Tab PO SCH (08:56)
[2017-01-20] MEDS: Multivitamin With Minerals Tab PO SCH (08:56)
--- NOTE | 2017-01-20 19:09 | CP.PCM.PN ---
Subjective - Date & Time of Evaluation Date of Evaluation: 01/20/17 Time of Evaluation: 19:05 - Subjective Subjective: I D NOTECONTINUE ROCEPHEN TILL MONDAY WHICH IS TOTAL OF 5 DAYS CONTINUE C 5 MORE DAYS OF CEFTIN 250MG PO QD URINE CULTURE ORDERED FOR TOMORROWORALS C Objective - Vital Signs/Intake and Output Vital Signs (last 24 hours): Temp Pulse Resp BP Pulse Ox 97.8 F 149 H 18 100/71 79 L 01/20/17 16:24 01/20/17 16:24 01/20/17 16:24 01/20/17 16:24 01/20/17 16:24 - Medications Medications: Current Medications Acetaminophen (Tylenol 325mg Tab) 650 mg PO Q6 PRN PRN Reason: Pain, Mild (1-3) Acetaminophen (Tylenol 325mg Tab) 650 mg PO Q6 PRN PRN Reason: Fever >100.4 F Last Admin: 01/19/17 00:48 Dose: 650 mg Aspirin (Ecotrin) 81 mg PO DAILY [facility] Last Admin: 01/20/17 08:56 Dose: 81 mg Atorvastatin Calcium (Lipitor) 40 mg PO DAILY [facility] Last Admin: 01/20/17 08:55 Dose: 40 mg Ergocalciferol (Drisdol 50,000 Intl Units Cap) 1 cap PO Q7D [facility] Last Admin: 01/18/17 17:00 Dose: 1 cap Glipizide (Glucotrol Xl) 5 mg PO DAILY [facility] Last Admin: 01/20/17 08:56 Dose: 5 mg Heparin Sodium (Porcine) (Heparin) 5,000 units SC Q12 [facility] PRN Reason: Protocol Last Admin: 01/20/17 08:57 Dose: 5,000 units Ceftriaxone Sodium 1 gm/ (Sodium Chloride) 100 mls @ 100 mls/hr IVPB DAILY [facility] Last Admin: 01/20/17 10:13 Dose: 100 mls/hr Insulin Detemir (Levemir) 20 units SC HS [facility] Last Admin: 01/19/17 21:47 Dose: 20 units Insulin Human Lispro (Humalog) 0 units SC ACHS [facility] PRN Reason: Protocol Last Admin: 01/20/17 17:55 Dose: 2 units Insulin Human Lispro (Humalog) 12 units SC BID [facility] Last Admin: 01/20/17 17:55 Dose: 12 unit Metoprolol Tartrate (Lopressor) 12.5 mg PO Q12 [facility] Last Admin: 01/20/17 08:54 Dose: 12.5 mg Morphine Sulfate (Morphine) 2 mg IVP Q6 PRN PRN Reason: Pain, moderate (4-7) Last Admin: 01/17/17 13:47 Dose: 2 mg Multivitamins/Minerals (Therapeutic-M Tab) 1 tab PO DAILY [facility] Last Admin: 01/20/17 08:56 Dose: 1 tab Paroxetine HCl (Paxil) 20 mg PO DAILY [facility] Last Admin: 01/20/17 08:54 Dose: 20 mg Repaglinide (Prandin) 2 mg PO TIDWM [facility] Last Admin: 01/20/17 17:54 Dose: 2 mg Saccharomyces Boulardii (Florastor) 250 mg PO BID [facility] Last Admin: 01/20/17 17:54 Dose: 250 mg Senna/Docusate Sodium (Senokot S 50 Mg-8.6 Mg) 2 tab PO HS PRN PRN Reason: Constipation Sevelamer HCl (Renagel) 800 mg PO TID [facility] Last Admin: 01/20/17 17:54 Dose: 800 mg Sodium Bicarbonate (Sodium Bicarbonate Tab) 650 mg PO DAILY [facility] Last Admin: 01/20/17 08:56 Dose: 650 mg Valsartan (Diovan) 80 mg PO DAILY [facility] Last Admin: 01/20/17 08:56 Dose: 80 mg - Labs Labs: 01/18/17 06:05 01/16/17 06:35 PT 12.0 Seconds (9.8-13.1) 01/13/17 12:00 INR 1.1 (0.9-1.2) 01/13/17 12:00 APTT 29.7 Seconds (25.6-37.1) 01/13/17 12:00
--- NOTE | 2017-01-20 19:19 | CP.PCM.PN ---
Subjective - Date & Time of Evaluation Date of Evaluation: 01/20/17 Time of Evaluation: 14:00 - Subjective Subjective: CKD .. STAGE 4 .. eGFR 23 ML/M ANEMIA OF CKD .. H/H STABLE ELECTROLYTES R OK P : LABS FOR TOMORROW C/O CURRENT CARE Objective - Vital Signs/Intake and Output Vital Signs (last 24 hours): Temp Pulse Resp BP Pulse Ox 97.8 F 149 H 18 100/71 79 L 01/20/17 16:24 01/20/17 16:24 01/20/17 16:24 01/20/17 16:24 01/20/17 16:24 - Medications Medications: Current Medications Acetaminophen (Tylenol 325mg Tab) 650 mg PO Q6 PRN PRN Reason: Pain, Mild (1-3) Acetaminophen (Tylenol 325mg Tab) 650 mg PO Q6 PRN PRN Reason: Fever >100.4 F Last Admin: 01/19/17 00:48 Dose: 650 mg Aspirin (Ecotrin) 81 mg PO DAILY [facility] Last Admin: 01/20/17 08:56 Dose: 81 mg Atorvastatin Calcium (Lipitor) 40 mg PO DAILY [facility] Last Admin: 01/20/17 08:55 Dose: 40 mg Ergocalciferol (Drisdol 50,000 Intl Units Cap) 1 cap PO Q7D [facility] Last Admin: 01/18/17 17:00 Dose: 1 cap Glipizide (Glucotrol Xl) 5 mg PO DAILY [facility] Last Admin: 01/20/17 08:56 Dose: 5 mg Heparin Sodium (Porcine) (Heparin) 5,000 units SC Q12 [facility] PRN Reason: Protocol Last Admin: 01/20/17 08:57 Dose: 5,000 units Ceftriaxone Sodium 1 gm/ (Sodium Chloride) 100 mls @ 100 mls/hr IVPB DAILY [facility] Last Admin: 01/20/17 10:13 Dose: 100 mls/hr Insulin Detemir (Levemir) 20 units SC HS [facility] Last Admin: 01/19/17 21:47 Dose: 20 units Insulin Human Lispro (Humalog) 0 units SC ACHS [facility] PRN Reason: Protocol Last Admin: 01/20/17 17:55 Dose: 2 units Insulin Human Lispro (Humalog) 12 units SC BID [facility] Last Admin: 01/20/17 17:55 Dose: 12 unit Metoprolol Tartrate (Lopressor) 12.5 mg PO Q12 [facility] Last Admin: 01/20/17 08:54 Dose: 12.5 mg Morphine Sulfate (Morphine) 2 mg IVP Q6 PRN PRN Reason: Pain, moderate (4-7) Last Admin: 01/17/17 13:47 Dose: 2 mg Multivitamins/Minerals (Therapeutic-M Tab) 1 tab PO DAILY [facility] Last Admin: 01/20/17 08:56 Dose: 1 tab Paroxetine HCl (Paxil) 20 mg PO DAILY [facility] Last Admin: 01/20/17 08:54 Dose: 20 mg Repaglinide (Prandin) 2 mg PO TIDWM [facility] Last Admin: 01/20/17 17:54 Dose: 2 mg Saccharomyces Boulardii (Florastor) 250 mg PO BID [facility] Last Admin: 01/20/17 17:54 Dose: 250 mg Senna/Docusate Sodium (Senokot S 50 Mg-8.6 Mg) 2 tab PO HS PRN PRN Reason: Constipation Sevelamer HCl (Renagel) 800 mg PO TID [facility] Last Admin: 01/20/17 17:54 Dose: 800 mg Sodium Bicarbonate (Sodium Bicarbonate Tab) 650 mg PO DAILY [facility] Last Admin: 01/20/17 08:56 Dose: 650 mg Valsartan (Diovan) 80 mg PO DAILY [facility] Last Admin: 01/20/17 08:56 Dose: 80 mg - Labs Labs: 01/18/17 06:05 01/16/17 06:35 PT 12.0 Seconds (9.8-13.1) 01/13/17 12:00 INR 1.1 (0.9-1.2) 01/13/17 12:00 APTT 29.7 Seconds (25.6-37.1) 01/13/17 12:00
[2017-01-20] MEDS: Insulin Detemir 100 Units/ml Inj SC SCH (22:24)
[2017-01-21] MEDS: Insulin Lispro (humaLOG) 100 Units/ml Inj SC SCH ×6 (07:30→21:26)
[2017-01-21 07:55] LABS: CALCIUM 9.3 mg/dL (8.4-10.2); MAGNESIUM 2.3 MG/DL (1.6-2.3)
[2017-01-21 07:59] LABS: HEMOGLOBIN 10.7 g/dL (12.0-16.0); MEAN CELL VOLUME 79.8 fl (81.0-99.0); MEAN CORPUSCULAR HEMOGLOBIN 25.4 pg (27.0-31.0); MEAN CORPUSCULAR HGB CONC 31.9 g/dL (33.0-37.0); RBC 4.2 Mil/uL (3.80-5.20); RED CELL DISTRIBUTION WIDTH 16.4 % (11.5-14.5)
[2017-01-21] MEDS: Saccharomyces Boulardi 250 mg Cap PO SCH ×2 (09:09→17:25)
[2017-01-21] MEDS: GlipiZIDE 5 mg SR Tab PO SCH (09:11)
[2017-01-21] MEDS: Multivitamin With Minerals Tab PO SCH (09:18)
[2017-01-21] MEDS ORDERED: Sod Polystyrene Sulf 15 gm/60 ml Oral Susp PO ONE (09:52)
[2017-01-21 10:21] LABS: SQUAMOUS EPITHIAL 2 /hpf (0-5); URINE BILIRUBIN NEGATIVE (NEGATIVE); URINE BLOOD SMALL (NEGATIVE); URINE CLARITY CLOUDY (Clear); URINE COLOR YELLOW (YELLOW); URINE GLUCOSE (UA) NEG (Normal); URINE LEUKOCYTE ESTERASE LARGE Leu/uL (Negative); URINE NITRATE NEGATIVE (NEGATIVE); URINE PROTEIN NEGATIVE (NEGATIVE); URINE UROBILINOGEN 0.2-1.0 mg/dL (0.2-1.0)
--- NOTE | 2017-01-21 12:28 | CP.PCM.PN ---
Subjective - Date & Time of Evaluation Date of Evaluation: 01/21/17 Time of Evaluation: 08:10 - Subjective Subjective: Patient seen and examined at bedside, no acute events overnight. Has remained afebrile, denies dysuria. Tolerating PT, PO diet, with normal urine output. Denies chest pain, weakness, dizziness or headaches. Objective - Vital Signs/Intake and Output Vital Signs (last 24 hours): Temp Pulse Resp BP Pulse Ox 97.6 F 60 20 130/71 98 01/21/17 08:00 01/21/17 09:05 01/21/17 08:00 01/21/17 09:05 01/21/17 08:00 - Medications Medications: Current Medications Acetaminophen (Tylenol 325mg Tab) 650 mg PO Q6 PRN PRN Reason: Pain, Mild (1-3) Acetaminophen (Tylenol 325mg Tab) 650 mg PO Q6 PRN PRN Reason: Fever >100.4 F Last Admin: 01/19/17 00:48 Dose: 650 mg Aspirin (Ecotrin) 81 mg PO DAILY [facility] Last Admin: 01/21/17 09:09 Dose: 81 mg Atorvastatin Calcium (Lipitor) 40 mg PO DAILY [facility] Last Admin: 01/21/17 09:11 Dose: 40 mg Ergocalciferol (Drisdol 50,000 Intl Units Cap) 1 cap PO Q7D [facility] Last Admin: 01/18/17 17:00 Dose: 1 cap Glipizide (Glucotrol Xl) 5 mg PO DAILY [facility] Last Admin: 01/21/17 09:11 Dose: 5 mg Heparin Sodium (Porcine) (Heparin) 5,000 units SC Q12 [facility] PRN Reason: Protocol Last Admin: 01/21/17 09:10 Dose: 5,000 units Ceftriaxone Sodium 1 gm/ (Sodium Chloride) 100 mls @ 100 mls/hr IVPB DAILY [facility] Last Admin: 01/21/17 09:12 Dose: 100 mls/hr Insulin Detemir (Levemir) 20 units SC HS [facility] Last Admin: 01/20/17 22:24 Dose: 20 units Insulin Human Lispro (Humalog) 0 units SC ACHS [facility] PRN Reason: Protocol Last Admin: 01/21/17 07:30 Dose: Not Given Insulin Human Lispro (Humalog) 12 units SC BID [facility] Last Admin: 01/21/17 09:18 Dose: 12 unit Metoprolol Tartrate (Lopressor) 12.5 mg PO Q12 [facility] Last Admin: 01/21/17 09:11 Dose: 12.5 mg Morphine Sulfate (Morphine) 2 mg IVP Q6 PRN PRN Reason: Pain, moderate (4-7) Last Admin: 01/17/17 13:47 Dose: 2 mg Multivitamins/Minerals (Therapeutic-M Tab) 1 tab PO DAILY [facility] Last Admin: 01/21/17 09:18 Dose: 1 tab Paroxetine HCl (Paxil) 20 mg PO DAILY [facility] Last Admin: 01/21/17 09:12 Dose: 20 mg Repaglinide (Prandin) 2 mg PO TIDWM [facility] Last Admin: 01/21/17 09:17 Dose: 2 mg Saccharomyces Boulardii (Florastor) 250 mg PO BID [facility] Last Admin: 01/21/17 09:09 Dose: 250 mg Senna/Docusate Sodium (Senokot S 50 Mg-8.6 Mg) 2 tab PO HS PRN PRN Reason: Constipation Sevelamer HCl (Renagel) 800 mg PO TID [facility] Last Admin: 01/21/17 09:12 Dose: 800 mg Sodium Bicarbonate (Sodium Bicarbonate Tab) 650 mg PO DAILY [facility] Last Admin: 01/21/17 09:18 Dose: 650 mg Valsartan (Diovan) 80 mg PO DAILY [facility] Last Admin: 01/21/17 09:08 Dose: 80 mg - Labs Labs: 01/21/17 05:30 01/21/17 05:30 PT 12.0 Seconds (9.8-13.1) 01/13/17 12:00 INR 1.1 (0.9-1.2) 01/13/17 12:00 APTT 29.7 Seconds (25.6-37.1) 01/13/17 12:00 - Constitutional Appears: Non-toxic, No Acute Distress - Head Exam Head Exam: ATRAUMATIC, NORMOCEPHALIC - Eye Exam Eye Exam: EOMI, PERRL - ENT Exam ENT Exam: Mucous Membranes Moist - Neck Exam Neck Exam: Full ROM. absent: Lymphadenopathy - Respiratory Exam Respiratory Exam: Clear to Ausculation Bilateral, NORMAL BREATHING PATTERN - Cardiovascular Exam Cardiovascular Exam: REGULAR RHYTHM, +S1, +S2 - GI/Abdominal Exam GI & Abdominal Exam: Soft (obese), Normal Bowel Sounds. absent: Distended, Tenderness - Extremities Exam Extremities Exam: Full ROM (left volar wound intact, no drainage,erythema or warmth). absent: Calf Tenderness, Pedal Edema, Tenderness - Back Exam Back Exam: absent: CVA tenderness (L), CVA tenderness (R) - Neurological Exam Neurological Exam: Alert, Awake, CN II-XII Intact, Oriented x3 - Psychiatric Exam Psychiatric exam: Flat Affect, Normal Mood - Skin Skin Exam: Dry, Intact, Warm Assessment and Plan - Assessment and Plan (Free Text) Assessment: 76 yr old F admitted for dehydration and mechanical fall at home , found to have acute weakness with PMHx of uncontrolled IDDM, HTN, CKD , depression, Hydronephrosis, and L wrist fx s/p ORIF in October 2016. Patient is tolerating PT , refuses sub-acute rehab. Psych recommended [facility] [place] [place] screening and adult protective services (APS) . APS may be arranged upon discharge. [facility] [place] refuses to screen until UA is negative for infection. Patient has remained afebrile, infectious disease is onboard and appreciated, will continue Ceftriaxone 1gm IV Q24H until 01/23/17 and then switch to PO antibiotics for 5 more days. Asymptomatic bacteuria -chronic, recurrent, pt denies dysuria,chronic leukocytosis improved -ID consult appreciated-Dr. Lugo : will follow recommendations -repeat urinalysis: Negative for nitrites, positive for large leukocyte esterase , improved but high microscopic bacteria -Day 3 of Ceftriaxone 1gm IV Q24H, will continue until monday (01/23/17) then switch to Ceftin 250mg PO x 5days -f/u urine culture Hyperkalemia -K+ 5.4 this AM -1 dose Kayexalate 30gm once -f/u BMP Weakness s/p mechanical fall -resolved, likely secondary to deconditioning/self neglect -Vit B12 high at >1,000pg/mL , Folate wnl, Vit D low at 29.1 -social service consult appreciated -continue PT/OT consult appreciated: subacute rehab Previous Left Wrist Fx s/p ORIF in October 2016 -stable -continue PT/OT: recommend KATHY CKD Stage 4 (GFR 15-29) -stable, chronic -patient is at baseline with BUN/Cr 49/2.2 w/ GFR 22 -Nephrology consult appreciated-Dr. Harley: will follow recommendations ( continue Sevelamer, Vit D, renal and diabetic diet) -UPEP wnl, SPEP consistent with acute inflammatory pattern IDDM -Uncontrolled, HbA1c 10.8 on 11/11/16 -Continue home meds (Glipizide SR 5mg PO Daily, Prandin 20mg PO TIDWM, Levemir 20mg SC HS, adjusted to Lispro 12mg SC BID, ASA 81mg PO Daily) -Lispro Sliding Scale (medium dose scale) -monitor POC glucose ACHS HLD -stable -lipid panel 08/31/16: (Triglycerides 213, Cholesterol 108, LDL 36, HDL 25) -continue home med (Atorvastatin 40mg PO Daily) HTN -controlled -continue home meds (Metoprolol 12.5mg PO BID, Valsartan 80mg PO Daily) -monitor BP Depression/Anxiety -chronic, Major Depressive Disorder, 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 Dove: will follow recommendations: [facility] [place] screening and APS DVT and GI Prophylaxis -Heparin 5,000 units SC Q12 -SCDs for now -Florastor 250mg PO BID
[2017-01-21] MEDS ORDERED: POLYETHYLENE GLYCOL 3350 17 GM/Dose PACKET PO ONE (14:15)
--- NOTE | 2017-01-21 15:39 | CP.PCM.PN ---
Subjective - Date & Time of Evaluation Date of Evaluation: 01/21/17 Time of Evaluation: 14:00 - Subjective Subjective: SEEN ON RENAL F/U RENAL FUNCTION STABLE K 5.4 FEELS BETTER ALL EMR REVIEWED ON ROCEPHIN FOR UTI Objective - Vital Signs/Intake and Output Vital Signs (last 24 hours): Temp Pulse Resp BP Pulse Ox 97.6 F 60 20 130/71 98 01/21/17 08:00 01/21/17 09:05 01/21/17 08:00 01/21/17 09:05 01/21/17 08:00 - Medications Medications: Current Medications Acetaminophen (Tylenol 325mg Tab) 650 mg PO Q6 PRN PRN Reason: Pain, Mild (1-3) Acetaminophen (Tylenol 325mg Tab) 650 mg PO Q6 PRN PRN Reason: Fever >100.4 F Last Admin: 01/19/17 00:48 Dose: 650 mg Aspirin (Ecotrin) 81 mg PO DAILY [facility] Last Admin: 01/21/17 09:09 Dose: 81 mg Atorvastatin Calcium (Lipitor) 40 mg PO DAILY [facility] Last Admin: 01/21/17 09:11 Dose: 40 mg Ergocalciferol (Drisdol 50,000 Intl Units Cap) 1 cap PO Q7D [facility] Last Admin: 01/18/17 17:00 Dose: 1 cap Glipizide (Glucotrol Xl) 5 mg PO DAILY [facility] Last Admin: 01/21/17 09:11 Dose: 5 mg Heparin Sodium (Porcine) (Heparin) 5,000 units SC Q12 [facility] PRN Reason: Protocol Last Admin: 01/21/17 09:10 Dose: 5,000 units Ceftriaxone Sodium 1 gm/ (Sodium Chloride) 100 mls @ 100 mls/hr IVPB DAILY [facility] Last Admin: 01/21/17 09:12 Dose: 100 mls/hr Insulin Detemir (Levemir) 20 units SC HS [facility] Last Admin: 01/20/17 22:24 Dose: 20 units Insulin Human Lispro (Humalog) 0 units SC ACHS [facility] PRN Reason: Protocol Last Admin: 01/21/17 12:31 Dose: 3 units Insulin Human Lispro (Humalog) 12 units SC BID [facility] Last Admin: 01/21/17 09:18 Dose: 12 unit Metoprolol Tartrate (Lopressor) 12.5 mg PO Q12 [facility] Last Admin: 01/21/17 09:11 Dose: 12.5 mg Morphine Sulfate (Morphine) 2 mg IVP Q6 PRN PRN Reason: Pain, moderate (4-7) Last Admin: 01/17/17 13:47 Dose: 2 mg Multivitamins/Minerals (Therapeutic-M Tab) 1 tab PO DAILY [facility] Last Admin: 01/21/17 09:18 Dose: 1 tab Paroxetine HCl (Paxil) 20 mg PO DAILY [facility] Last Admin: 01/21/17 09:12 Dose: 20 mg Repaglinide (Prandin) 2 mg PO TIDWM [facility] Last Admin: 01/21/17 12:32 Dose: 2 mg Saccharomyces Boulardii (Florastor) 250 mg PO BID [facility] Last Admin: 01/21/17 09:09 Dose: 250 mg Senna/Docusate Sodium (Senokot S 50 Mg-8.6 Mg) 2 tab PO HS PRN PRN Reason: Constipation Sevelamer HCl (Renagel) 800 mg PO TID [facility] Last Admin: 01/21/17 12:32 Dose: 800 mg Sodium Bicarbonate (Sodium Bicarbonate Tab) 650 mg PO DAILY [facility] Last Admin: 01/21/17 09:18 Dose: 650 mg Valsartan (Diovan) 80 mg PO DAILY [facility] Last Admin: 01/21/17 09:08 Dose: 80 mg - Labs Labs: 01/21/17 05:30 01/21/17 05:30 PT 12.0 Seconds (9.8-13.1) 01/13/17 12:00 INR 1.1 (0.9-1.2) 01/13/17 12:00 APTT 29.7 Seconds (25.6-37.1) 01/13/17 12:00 Assessment and Plan - Assessment and Plan (Free Text) Assessment: CKD STAGE 4 .. eGFR 26 ML / M .. STABLE RENAL FUNCTION ANEMIA OF CKD .. H/H STABLE .. NO NEED FOR EPO HYPERKALEMIA .. K 5.4 .. WAS GIVE KAYXALATE .. ADVANCE RENAL DIET INCLUDING 2 GM K UTI .. CHRONIC .. ON ROCEPHINE PER DR MENDOZA H/O CHRONIC ADELAIDA HYDRONEPHROSIS P : C/O CURRENT CARE C/O PRESENT MANAGEMENT
[2017-01-21] MEDS: Insulin Detemir 100 Units/ml Inj SC SCH (21:22)
[2017-01-22] MEDS: Insulin Lispro (humaLOG) 100 Units/ml Inj SC SCH ×6 (06:32→22:19)
[2017-01-22] MEDS: Saccharomyces Boulardi 250 mg Cap PO SCH ×2 (08:58→17:17)
[2017-01-22] MEDS: GlipiZIDE 5 mg SR Tab PO SCH (08:58)
[2017-01-22] MEDS: Multivitamin With Minerals Tab PO SCH (09:01)
--- NOTE | 2017-01-22 15:43 | CP.PCM.PN ---
Subjective - Date & Time of Evaluation Date of Evaluation: 01/22/17 Time of Evaluation: 10:00 - Subjective Subjective: Pt seen and examined at bedside this morning, reports having diarrhea yesterday (6 episodes) after she was given "some medication to help with her K+", no diarrhea today, feels fine, no complaints. Objective - Vital Signs/Intake and Output Vital Signs (last 24 hours): Temp Pulse Resp BP Pulse Ox 97.6 F 62 20 104/62 99 01/22/17 09:00 01/22/17 09:00 01/22/17 09:00 01/22/17 09:00 01/22/17 09:00 - Medications Medications: Current Medications Acetaminophen (Tylenol 325mg Tab) 650 mg PO Q6 PRN PRN Reason: Pain, Mild (1-3) Acetaminophen (Tylenol 325mg Tab) 650 mg PO Q6 PRN PRN Reason: Fever >100.4 F Last Admin: 01/19/17 00:48 Dose: 650 mg Aspirin (Ecotrin) 81 mg PO DAILY [facility] Last Admin: 01/22/17 08:58 Dose: 81 mg Atorvastatin Calcium (Lipitor) 40 mg PO DAILY [facility] Last Admin: 01/22/17 08:59 Dose: 40 mg Ergocalciferol (Drisdol 50,000 Intl Units Cap) 1 cap PO Q7D [facility] Last Admin: 01/18/17 17:00 Dose: 1 cap Glipizide (Glucotrol Xl) 5 mg PO DAILY [facility] Last Admin: 01/22/17 08:58 Dose: 5 mg Heparin Sodium (Porcine) (Heparin) 5,000 units SC Q12 [facility] PRN Reason: Protocol Last Admin: 01/22/17 08:58 Dose: 5,000 units Ceftriaxone Sodium 1 gm/ (Sodium Chloride) 100 mls @ 100 mls/hr IVPB DAILY [facility] Last Admin: 01/22/17 09:13 Dose: 100 mls/hr Insulin Detemir (Levemir) 20 units SC HS [facility] Last Admin: 01/21/17 21:22 Dose: 20 units Insulin Human Lispro (Humalog) 0 units SC ACHS [facility] PRN Reason: Protocol Last Admin: 01/22/17 12:34 Dose: 3 units Insulin Human Lispro (Humalog) 12 units SC BID [facility] Last Admin: 01/22/17 08:59 Dose: 12 unit Metoprolol Tartrate (Lopressor) 12.5 mg PO Q12 [facility] Last Admin: 01/22/17 08:59 Dose: 12.5 mg Morphine Sulfate (Morphine) 2 mg IVP Q6 PRN PRN Reason: Pain, moderate (4-7) Last Admin: 01/17/17 13:47 Dose: 2 mg Multivitamins/Minerals (Therapeutic-M Tab) 1 tab PO DAILY [facility] Last Admin: 01/22/17 09:01 Dose: 1 tab Paroxetine HCl (Paxil) 20 mg PO DAILY [facility] Last Admin: 01/22/17 09:00 Dose: 20 mg Repaglinide (Prandin) 2 mg PO TIDWM [facility] Last Admin: 01/22/17 12:34 Dose: 2 mg Saccharomyces Boulardii (Florastor) 250 mg PO BID [facility] Last Admin: 01/22/17 08:58 Dose: 250 mg Senna/Docusate Sodium (Senokot S 50 Mg-8.6 Mg) 2 tab PO HS PRN PRN Reason: Constipation Sevelamer HCl (Renagel) 800 mg PO TID [facility] Last Admin: 01/22/17 12:35 Dose: 800 mg Sodium Bicarbonate (Sodium Bicarbonate Tab) 650 mg PO DAILY [facility] Last Admin: 01/22/17 09:01 Dose: 650 mg Valsartan (Diovan) 80 mg PO DAILY [facility] Last Admin: 01/22/17 08:58 Dose: 80 mg - Labs Labs: 01/21/17 05:30 01/21/17 05:30 PT 12.0 Seconds (9.8-13.1) 01/13/17 12:00 INR 1.1 (0.9-1.2) 01/13/17 12:00 APTT 29.7 Seconds (25.6-37.1) 01/13/17 12:00 - Constitutional Appears: Non-toxic, No Acute Distress - Head Exam Head Exam: NORMOCEPHALIC - Eye Exam Eye Exam: Normal appearance Pupil Exam: NORMAL ACCOMODATION - ENT Exam ENT Exam: Mucous Membranes Moist - Respiratory Exam Respiratory Exam: Clear to Ausculation Bilateral, NORMAL BREATHING PATTERN. absent: Rhonchi, Wheezes - Cardiovascular Exam Cardiovascular Exam: REGULAR RHYTHM, +S1, +S2 - GI/Abdominal Exam GI & Abdominal Exam: Soft, Normal Bowel Sounds. absent: Tenderness - Extremities Exam Extremities Exam: absent: Calf Tenderness, Pedal Edema - Neurological Exam Neurological Exam: Alert, Awake, Oriented x3 Assessment and Plan - Assessment and Plan (Free Text) Assessment: 76 yr old F admitted for dehydration and mechanical fall at home . Patient is tolerating PT, refuses sub-acute rehab. Psych recommended [facility] screening and adult protective services (APS) . APS may be arranged upon discharge. [facility] refuses to screen until UA is negative for infection. Patient has remained afebrile, infectious disease is onboard and appreciated, will continue Ceftriaxone 1gm IV Q24H until 01/23/17 and then switch to PO antibiotics for 5 more days. Asymptomatic bacteuria -chronic, recurrent, pt denies dysuria,chronic leukocytosis improved -ID consult appreciated-Dr. Lugo : will follow recommendations -repeat urinalysis: Negative for nitrites, positive for large leukocyte esterase , improved but high microscopic bacteria -Day 4 of Ceftriaxone 1gm IV Q24H, will continue until monday (01/23/17) then switch to Ceftin 250mg PO x 5days -f/u urine culture Hyperkalemia -K+ 5.4 on 01/21/17 -1 dose Kayexalate 30gm once -f/u BMP ordered this afternoon, results pending Weakness s/p mechanical fall -resolved, likely secondary to deconditioning/self neglect -Vit B12 high at >1,000pg/mL , Folate wnl, Vit D low at 29.1 -social service consult appreciated -continue PT Previous Left Wrist Fx s/p ORIF in October 2016 -stable -continue PT/OT: recommend KATHY CKD Stage 4 (GFR 15-29) -stable, chronic -patient is at baseline with BUN/Cr 49/2.2 w/ GFR 22 -Nephrology consult appreciated-Dr. Harley: will follow recommendations ( continue Sevelamer, Vit D, renal and diabetic diet) -UPEP wnl, SPEP consistent with acute inflammatory pattern IDDM -Uncontrolled, HbA1c 10.8 on 11/11/16 -Continue home meds (Glipizide SR 5mg PO Daily, Prandin 20mg PO TIDWM, Levemir 20mg SC HS, adjusted to Lispro 12mg SC BID, ASA 81mg PO Daily) -Lispro Sliding Scale (medium dose scale) -monitor POC glucose ACHS HLD -stable -lipid panel 08/31/16: (Triglycerides 213, Cholesterol 108, LDL 36, HDL 25) -continue home med (Atorvastatin 40mg PO Daily) HTN -controlled -continue home meds (Metoprolol 12.5mg PO BID, Valsartan 80mg PO Daily) -monitor BP Depression/Anxiety -chronic, Major Depressive Disorder, 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 Dove: will follow recommendations: [facility] screening and APS -consider [address] program, if [facility] is not possible DVT and GI Prophylaxis -Heparin 5,000 units SC Q12 -SCDs for now -Florastor 250mg PO BID
[2017-01-22 17:04] LABS: CALCIUM 8.7 mg/dL (8.4-10.2)
[2017-01-22] MEDS: Insulin Detemir 100 Units/ml Inj SC SCH (22:18)
[2017-01-23] MEDS: Insulin Lispro (humaLOG) 100 Units/ml Inj SC SCH ×6 (07:01→22:36)
[2017-01-23] MEDS: Saccharomyces Boulardi 250 mg Cap PO SCH ×3 (09:51→17:34)
[2017-01-23] MEDS: GlipiZIDE 5 mg SR Tab PO SCH (09:51)
[2017-01-23] MEDS: Multivitamin With Minerals Tab PO SCH (09:51)
--- NOTE | 2017-01-23 12:53 | CP.PCM.PN ---
<Lissa Lagunas - Last Filed: 01/23/17 19:56> Subjective - Date & Time of Evaluation Date of Evaluation: 01/23/17 Time of Evaluation: 07:15 - Subjective Subjective: Patient seen and examined at bedside, in no acute distress. Denies SOB, weakness , dizziness or chest pain. Cooperative with exam. Informed patient we will be discontinuing IV antibiotics and switching to PO tomorrow. Also awaiting [facility] screen pending UA negative for UTI. Objective - Vital Signs/Intake and Output Vital Signs (last 24 hours): Temp Pulse Resp BP Pulse Ox 97.9 F 62 20 127/73 98 01/23/17 08:48 01/23/17 09:54 01/23/17 08:48 01/23/17 09:54 01/23/17 08:48 - Medications Medications: Current Medications Acetaminophen (Tylenol 325mg Tab) 650 mg PO Q6 PRN PRN Reason: Pain, Mild (1-3) Acetaminophen (Tylenol 325mg Tab) 650 mg PO Q6 PRN PRN Reason: Fever >100.4 F Last Admin: 01/19/17 00:48 Dose: 650 mg Aspirin (Ecotrin) 81 mg PO DAILY [facility] Last Admin: 01/23/17 09:51 Dose: 81 mg Atorvastatin Calcium (Lipitor) 40 mg PO DAILY [facility] Last Admin: 01/23/17 09:54 Dose: 40 mg Ergocalciferol (Drisdol 50,000 Intl Units Cap) 1 cap PO Q7D [facility] Last Admin: 01/18/17 17:00 Dose: 1 cap Glipizide (Glucotrol Xl) 5 mg PO DAILY [facility] Last Admin: 01/23/17 09:51 Dose: 5 mg Heparin Sodium (Porcine) (Heparin) 5,000 units SC Q12 [facility] PRN Reason: Protocol Last Admin: 01/23/17 09:51 Dose: 5,000 units Ceftriaxone Sodium 1 gm/ (Sodium Chloride) 100 mls @ 100 mls/hr IVPB DAILY [facility] Last Admin: 01/23/17 09:55 Dose: 100 mls/hr Insulin Detemir (Levemir) 20 units SC HS [facility] Last Admin: 01/22/17 22:18 Dose: 20 units Insulin Human Lispro (Humalog) 0 units SC ACHS [facility] PRN Reason: Protocol Last Admin: 01/23/17 07:01 Dose: Not Given Insulin Human Lispro (Humalog) 12 units SC BID [facility] Last Admin: 01/23/17 09:54 Dose: 12 unit Metoprolol Tartrate (Lopressor) 12.5 mg PO Q12 [facility] Last Admin: 01/23/17 09:54 Dose: 12.5 mg Morphine Sulfate (Morphine) 2 mg IVP Q6 PRN PRN Reason: Pain, moderate (4-7) Last Admin: 01/17/17 13:47 Dose: 2 mg Multivitamins/Minerals (Therapeutic-M Tab) 1 tab PO DAILY [facility] Last Admin: 01/23/17 09:51 Dose: 1 tab Paroxetine HCl (Paxil) 20 mg PO DAILY [facility] Last Admin: 01/23/17 09:55 Dose: 20 mg Repaglinide (Prandin) 2 mg PO TIDWM [facility] Last Admin: 01/23/17 09:51 Dose: 2 mg Saccharomyces Boulardii (Florastor) 250 mg PO BID [facility] Last Admin: 01/23/17 09:51 Dose: 250 mg Senna/Docusate Sodium (Senokot S 50 Mg-8.6 Mg) 2 tab PO HS PRN PRN Reason: Constipation Sevelamer HCl (Renagel) 800 mg PO TID [facility] Last Admin: 01/23/17 09:50 Dose: 800 mg Sodium Bicarbonate (Sodium Bicarbonate Tab) 650 mg PO DAILY [facility] Last Admin: 01/23/17 09:56 Dose: 650 mg Valsartan (Diovan) 80 mg PO DAILY [facility] Last Admin: 01/23/17 09:50 Dose: 80 mg - Labs Labs: 01/21/17 05:30 01/22/17 16:00 PT 12.0 Seconds (9.8-13.1) 01/13/17 12:00 INR 1.1 (0.9-1.2) 01/13/17 12:00 APTT 29.7 Seconds (25.6-37.1) 01/13/17 12:00 - Constitutional Appears: Non-toxic, No Acute Distress, Unkempt - Head Exam Head Exam: ATRAUMATIC, NORMOCEPHALIC - Eye Exam Eye Exam: EOMI, PERRL - ENT Exam ENT Exam: Mucous Membranes Moist - Neck Exam Neck Exam: Full ROM. absent: Lymphadenopathy - Respiratory Exam Respiratory Exam: Clear to Ausculation Bilateral, NORMAL BREATHING PATTERN - Cardiovascular Exam Cardiovascular Exam: REGULAR RHYTHM, +S1, +S2 - Extremities Exam Extremities Exam: Full ROM. absent: Calf Tenderness, Pedal Edema - Back Exam Back Exam: absent: CVA tenderness (L), CVA tenderness (R) (seborrheic keratosis) - Neurological Exam Neurological Exam: Alert, Awake, CN II-XII Intact, Oriented x3 - Psychiatric Exam Psychiatric exam: Flat Affect, Normal Mood - Skin Skin Exam: Dry, Intact, Warm Assessment and Plan - Assessment and Plan (Free Text) Assessment: 76 yr old F admitted for dehydration and mechanical fall at home . Patient is tolerating PT, refuses sub-acute rehab. Psych recommended [facility] screening and adult protective services (APS) . APS may be arranged upon discharge. [facility] refuses to screen until UA is negative for infection. Patient has remained afebrile, infectious disease is onboard and appreciated, pt received 5 days of Ceftriaxone, tomorrow will switch to PO antibiotics for 5 more days. Asymptomatic bacteuria -chronic, recurrent, pt denies dysuria,chronic leukocytosis improved -ID consult appreciated-Dr. Lugo : will follow recommendations -repeat urinalysis: Negative for nitrites, positive for large leukocyte esterase , microscopic bacteria and budding urine yeast -Day 5 of Ceftriaxone 1gm IV Q24H, tomorrow will switch to Ceftin 250mg PO x 5days -started Fluconazole 200mg PO QD-day 1 -f/u repeat UA and urine culture CKD Stage 4 (GFR 15-29) -stable, chronic -patient is at baseline with BUN/Cr 49/2.2 w/ GFR 22 -Nephrology consult appreciated-Dr. Harley: will follow recommendations ( continue Sevelamer, Vit D, renal and diabetic diet) -UPEP wnl, SPEP consistent with acute inflammatory pattern IDDM -Uncontrolled, HbA1c 10.8 on 11/11/16 -Continue home meds (Glipizide SR 5mg PO Daily, Prandin 20mg PO TIDWM, Levemir 20mg SC HS, adjusted to Lispro 12mg SC BID, ASA 81mg PO Daily) -Lispro Sliding Scale (medium dose scale) -monitor POC glucose ACHS HLD -stable -lipid panel 08/31/16: (Triglycerides 213, Cholesterol 108, LDL 36, HDL 25) -continue home med (Atorvastatin 40mg PO Daily) HTN -controlled -continue home meds (Metoprolol 12.5mg PO BID, Valsartan 80mg PO Daily) -monitor BP Depression/Anxiety -chronic, Major Depressive Disorder, 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 Dove: will follow recommendations: [facility] screening and APS -consider [address] program, if [facility] is not possible Weakness s/p mechanical fall -resolved, likely secondary to deconditioning/self neglect -Vit B12 high at >1,000pg/mL , Folate wnl, Vit D low at 29.1 -social service consult appreciated -continue PT Hyperkalemia -resolved DVT and GI Prophylaxis -Heparin 5,000 units SC Q12 -SCDs for now -Florastor 250mg PO BID <Min Woody - Last Filed: 01/24/17 06:45> Objective - Vital Signs/Intake and Output Vital Signs (last 24 hours): Temp Pulse Resp BP Pulse Ox 97.8 F 60 18 116/63 96 01/24/17 00:33 01/24/17 00:33 01/24/17 00:33 01/24/17 00:33 01/24/17 00:33 - Medications Medications: Current Medications Acetaminophen (Tylenol 325mg Tab) 650 mg PO Q6 PRN PRN Reason: Pain, Mild (1-3) Acetaminophen (Tylenol 325mg Tab) 650 mg PO Q6 PRN PRN Reason: Fever >100.4 F Last Admin: 01/19/17 00:48 Dose: 650 mg Aspirin (Ecotrin) 81 mg PO DAILY [facility] Last Admin: 01/23/17 09:51 Dose: 81 mg Atorvastatin Calcium (Lipitor) 40 mg PO DAILY [facility] Last Admin: 01/23/17 09:54 Dose: 40 mg Cefdinir (Omnicef) 300 mg PO BID [facility] Ergocalciferol (Drisdol 50,000 Intl Units Cap) 1 cap PO Q7D [facility] Last Admin: 01/18/17 17:00 Dose: 1 cap Fluconazole (Diflucan) 200 mg PO DAILY [facility] Glipizide (Glucotrol Xl) 5 mg PO DAILY [facility] Last Admin: 01/23/17 09:51 Dose: 5 mg Heparin Sodium (Porcine) (Heparin) 5,000 units SC Q12 [facility] PRN Reason: Protocol Last Admin: 01/23/17 20:57 Dose: 5,000 units Insulin Detemir (Levemir) 20 units SC HS [facility] Last Admin: 01/23/17 22:37 Dose: 20 units Insulin Human Lispro (Humalog) 0 units SC ACHS [facility] PRN Reason: Protocol Last Admin: 01/23/17 22:36 Dose: Not Given Insulin Human Lispro (Humalog) 12 units SC BID [facility] Last Admin: 01/23/17 17:27 Dose: Not Given Metoprolol Tartrate (Lopressor) 12.5 mg PO Q12 [facility] Last Admin: 01/23/17 21:00 Dose: 12.5 mg Morphine Sulfate (Morphine) 2 mg IVP Q6 PRN PRN Reason: Pain, moderate (4-7) Last Admin: 01/17/17 13:47 Dose: 2 mg Multivitamins/Minerals (Therapeutic-M Tab) 1 tab PO DAILY [facility] Last Admin: 01/23/17 09:51 Dose: 1 tab Paroxetine HCl (Paxil) 20 mg PO DAILY [facility] Last Admin: 01/23/17 09:55 Dose: 20 mg Repaglinide (Prandin) 2 mg PO TIDWM [facility] Last Admin: 01/23/17 17:35 Dose: 2 mg Saccharomyces Boulardii (Florastor) 250 mg PO BID [facility] Last Admin: 01/23/17 17:34 Dose: 250 mg Senna/Docusate Sodium (Senokot S 50 Mg-8.6 Mg) 2 tab PO HS PRN PRN Reason: Constipation Sevelamer HCl (Renagel) 800 mg PO TID [facility] Last Admin: 01/23/17 17:35 Dose: 800 mg Sodium Bicarbonate (Sodium Bicarbonate Tab) 650 mg PO DAILY [facility] Last Admin: 01/23/17 09:56 Dose: 650 mg Valsartan (Diovan) 80 mg PO DAILY [facility] Last Admin: 01/23/17 09:50 Dose: 80 mg - Labs Labs: 01/21/17 05:30 01/22/17 16:00 PT 12.0 Seconds (9.8-13.1) 01/13/17 12:00 INR 1.1 (0.9-1.2) 01/13/17 12:00 APTT 29.7 Seconds (25.6-37.1) 01/13/17 12:00 Attending/Attestation - Attestation I have personally seen and examined this patient.: Yes I have fully participated in the care of the patient.: Yes I have reviewed all pertinent clinical information, including history, physical exam and plan: Yes
[2017-01-23 16:14] LABS: SQUAMOUS EPITHIAL 1 /hpf (0-5); URINE BILIRUBIN NEGATIVE (NEGATIVE); URINE BLOOD MODERATE (NEGATIVE); URINE CLARITY TURBID (Clear); URINE COLOR YELLOW (YELLOW); URINE GLUCOSE (UA) NEG (Normal); URINE LEUKOCYTE ESTERASE LARGE Leu/uL (Negative); URINE NITRATE NEGATIVE (NEGATIVE); URINE PROTEIN NEGATIVE (NEGATIVE); URINE UROBILINOGEN 0.2-1.0 mg/dL (0.2-1.0); WBC CLUMPS MANY /hpf
[2017-01-23] MEDS: Insulin Detemir 100 Units/ml Inj SC SCH (22:37)
--- NOTE | 2017-01-23 23:55 | CP.PCM.PN ---
Subjective - Date & Time of Evaluation Date of Evaluation: 01/23/17 Time of Evaluation: 15:00 - Subjective Subjective: SEEN ON RENAL F/U ALL ABOVE EMR REVIEWED FEELS IMPROVED URIN HAS KLEIBSELLA AND FUNGUS Objective - Vital Signs/Intake and Output Vital Signs (last 24 hours): Temp Pulse Resp BP Pulse Ox 97.3 F L 60 18 118/70 97 01/23/17 16:17 01/23/17 21:00 01/23/17 16:17 01/23/17 21:00 01/23/17 16:17 - Medications Medications: Current Medications Acetaminophen (Tylenol 325mg Tab) 650 mg PO Q6 PRN PRN Reason: Pain, Mild (1-3) Acetaminophen (Tylenol 325mg Tab) 650 mg PO Q6 PRN PRN Reason: Fever >100.4 F Last Admin: 01/19/17 00:48 Dose: 650 mg Aspirin (Ecotrin) 81 mg PO DAILY [facility] Last Admin: 01/23/17 09:51 Dose: 81 mg Atorvastatin Calcium (Lipitor) 40 mg PO DAILY [facility] Last Admin: 01/23/17 09:54 Dose: 40 mg Ergocalciferol (Drisdol 50,000 Intl Units Cap) 1 cap PO Q7D [facility] Last Admin: 01/18/17 17:00 Dose: 1 cap Fluconazole (Diflucan) 200 mg PO DAILY [facility] Glipizide (Glucotrol Xl) 5 mg PO DAILY [facility] Last Admin: 01/23/17 09:51 Dose: 5 mg Heparin Sodium (Porcine) (Heparin) 5,000 units SC Q12 [facility] PRN Reason: Protocol Last Admin: 01/23/17 20:57 Dose: 5,000 units Insulin Detemir (Levemir) 20 units SC HS [facility] Last Admin: 01/23/17 22:37 Dose: 20 units Insulin Human Lispro (Humalog) 0 units SC ACHS [facility] PRN Reason: Protocol Last Admin: 01/23/17 22:36 Dose: Not Given Insulin Human Lispro (Humalog) 12 units SC BID [facility] Last Admin: 01/23/17 17:27 Dose: Not Given Metoprolol Tartrate (Lopressor) 12.5 mg PO Q12 [facility] Last Admin: 01/23/17 21:00 Dose: 12.5 mg Morphine Sulfate (Morphine) 2 mg IVP Q6 PRN PRN Reason: Pain, moderate (4-7) Last Admin: 01/17/17 13:47 Dose: 2 mg Multivitamins/Minerals (Therapeutic-M Tab) 1 tab PO DAILY [facility] Last Admin: 01/23/17 09:51 Dose: 1 tab Paroxetine HCl (Paxil) 20 mg PO DAILY [facility] Last Admin: 01/23/17 09:55 Dose: 20 mg Repaglinide (Prandin) 2 mg PO TIDWM [facility] Last Admin: 01/23/17 17:35 Dose: 2 mg Saccharomyces Boulardii (Florastor) 250 mg PO BID [facility] Last Admin: 01/23/17 17:34 Dose: 250 mg Senna/Docusate Sodium (Senokot S 50 Mg-8.6 Mg) 2 tab PO HS PRN PRN Reason: Constipation Sevelamer HCl (Renagel) 800 mg PO TID [facility] Last Admin: 01/23/17 17:35 Dose: 800 mg Sodium Bicarbonate (Sodium Bicarbonate Tab) 650 mg PO DAILY [facility] Last Admin: 01/23/17 09:56 Dose: 650 mg Valsartan (Diovan) 80 mg PO DAILY [facility] Last Admin: 01/23/17 09:50 Dose: 80 mg - Labs Labs: 01/21/17 05:30 01/22/17 16:00 PT 12.0 Seconds (9.8-13.1) 01/13/17 12:00 INR 1.1 (0.9-1.2) 01/13/17 12:00 APTT 29.7 Seconds (25.6-37.1) 01/13/17 12:00 Assessment and Plan - Assessment and Plan (Free Text) Assessment: CKD 4 .. eGFR [facility]IANS 23 ML / M ANEMIA OF CKD .. HGB 10.1 .. STABLE UTI ON IVAB PER ID SERVICE C/O CURRENT CARE
[2017-01-24] MEDS: Insulin Lispro (humaLOG) 100 Units/ml Inj SC SCH ×6 (06:58→21:32)
[2017-01-24 07:05] LABS: BASO # 0.1 K/uL (0.0-0.2); BASO % 0.9 % (0.0-2.0); EOS # 0.5 K/uL (0.0-0.7); EOS % 4.8 % (0.0-4.0); HEMOGLOBIN 10.3 g/dL (12.0-16.0); LYMPH # 3.2 K/uL (1.0-4.3); LYMPH % 30.4 % (20.0-40.0); MEAN CELL VOLUME 80.3 fl (81.0-99.0); MEAN CORPUSCULAR HEMOGLOBIN 24.7 pg (27.0-31.0); MEAN CORPUSCULAR HGB CONC 30.7 g/dL (33.0-37.0); MEAN PLATELET VOLUME 7.9 fl (7.2-11.7); MONO # 0.7 K/uL (0.0-0.8); MONO % 7.1 % (0.0-10.0); NEUT # 5.9 K/uL (1.8-7.0); NEUT % 56.8 % (50.0-75.0); RBC 4.18 Mil/uL (3.80-5.20); RED CELL DISTRIBUTION WIDTH 16.5 % (11.5-14.5); WHITE BLOOD COUNT 10.5 K/uL (4.8-10.8)
[2017-01-24] MEDS: Cefdinir 300 MG CAP PO SCH ×2 (08:53→17:08)
[2017-01-24] MEDS: Multivitamin With Minerals Tab PO SCH (08:55)
[2017-01-24] MEDS: Saccharomyces Boulardi 250 mg Cap PO SCH ×2 (08:55→17:08)
[2017-01-24] MEDS: GlipiZIDE 5 mg SR Tab PO SCH (08:55)
--- NOTE | 2017-01-24 09:45 | CP.PCM.PN ---
<Lissa Lagunas - Last Filed: 01/24/17 15:44> Subjective - Date & Time of Evaluation Date of Evaluation: 01/24/17 Time of Evaluation: 07:25 - Subjective Subjective: Patient seen and examined at bedside, no acute events overnight. Reports she is tolerating PO diet, PT, has normal urine and stool output. Objective - Vital Signs/Intake and Output Vital Signs (last 24 hours): Temp Pulse Resp BP Pulse Ox 97.6 F 57 L 20 101/53 L 98 01/24/17 07:44 01/24/17 09:09 01/24/17 07:44 01/24/17 09:09 01/24/17 07:44 - Medications Medications: Current Medications Acetaminophen (Tylenol 325mg Tab) 650 mg PO Q6 PRN PRN Reason: Pain, Mild (1-3) Acetaminophen (Tylenol 325mg Tab) 650 mg PO Q6 PRN PRN Reason: Fever >100.4 F Last Admin: 01/19/17 00:48 Dose: 650 mg Aspirin (Ecotrin) 81 mg PO DAILY [facility] Last Admin: 01/24/17 08:55 Dose: 81 mg Atorvastatin Calcium (Lipitor) 40 mg PO DAILY [facility] Last Admin: 01/24/17 08:53 Dose: 40 mg Cefdinir (Omnicef) 300 mg PO BID [facility] Last Admin: 01/24/17 08:53 Dose: 300 mg Ergocalciferol (Drisdol 50,000 Intl Units Cap) 1 cap PO Q7D [facility] Last Admin: 01/18/17 17:00 Dose: 1 cap Fluconazole (Diflucan) 200 mg PO DAILY [facility] Glipizide (Glucotrol Xl) 5 mg PO DAILY [facility] Last Admin: 01/24/17 08:55 Dose: 5 mg Heparin Sodium (Porcine) (Heparin) 5,000 units SC Q12 [facility] PRN Reason: Protocol Last Admin: 01/24/17 08:56 Dose: 5,000 units Insulin Detemir (Levemir) 20 units SC HS [facility] Last Admin: 01/23/17 22:37 Dose: 20 units Insulin Human Lispro (Humalog) 0 units SC ACHS [facility] PRN Reason: Protocol Last Admin: 01/24/17 06:58 Dose: Not Given Insulin Human Lispro (Humalog) 12 units SC BID [facility] Last Admin: 01/24/17 08:59 Dose: Not Given Metoprolol Tartrate (Lopressor) 12.5 mg PO Q12 [facility] Last Admin: 01/24/17 09:09 Dose: Not Given Morphine Sulfate (Morphine) 2 mg IVP Q6 PRN PRN Reason: Pain, moderate (4-7) Last Admin: 01/17/17 13:47 Dose: 2 mg Multivitamins/Minerals (Therapeutic-M Tab) 1 tab PO DAILY [facility] Last Admin: 01/24/17 08:55 Dose: 1 tab Paroxetine HCl (Paxil) 20 mg PO DAILY [facility] Last Admin: 01/24/17 08:55 Dose: 20 mg Repaglinide (Prandin) 2 mg PO TIDWM [facility] Last Admin: 01/24/17 08:42 Dose: 2 mg Saccharomyces Boulardii (Florastor) 250 mg PO BID [facility] Last Admin: 01/24/17 08:55 Dose: 250 mg Senna/Docusate Sodium (Senokot S 50 Mg-8.6 Mg) 2 tab PO HS PRN PRN Reason: Constipation Sevelamer HCl (Renagel) 800 mg PO TID [facility] Last Admin: 01/24/17 08:53 Dose: 800 mg Sodium Bicarbonate (Sodium Bicarbonate Tab) 650 mg PO DAILY [facility] Last Admin: 01/24/17 08:55 Dose: 650 mg Valsartan (Diovan) 80 mg PO DAILY [facility] Last Admin: 01/24/17 08:55 Dose: 80 mg - Labs Labs: 01/24/17 06:05 01/22/17 16:00 PT 12.0 Seconds (9.8-13.1) 01/13/17 12:00 INR 1.1 (0.9-1.2) 01/13/17 12:00 APTT 29.7 Seconds (25.6-37.1) 01/13/17 12:00 - Constitutional Appears: Non-toxic, No Acute Distress - Head Exam Head Exam: ATRAUMATIC, NORMOCEPHALIC - Eye Exam Eye Exam: EOMI, PERRL - ENT Exam ENT Exam: Mucous Membranes Moist - Neck Exam Neck Exam: Full ROM - Respiratory Exam Respiratory Exam: Clear to Ausculation Bilateral, NORMAL BREATHING PATTERN - Cardiovascular Exam Cardiovascular Exam: REGULAR RHYTHM, +S1, +S2 - GI/Abdominal Exam GI & Abdominal Exam: Soft (obese), Normal Bowel Sounds. absent: Tenderness - Extremities Exam Extremities Exam: Full ROM. absent: Calf Tenderness, Pedal Edema - Back Exam Back Exam: absent: CVA tenderness (L), CVA tenderness (R) - Neurological Exam Neurological Exam: Alert, Awake, CN II-XII Intact - Psychiatric Exam Psychiatric exam: Flat Affect, Normal Mood - Skin Skin Exam: Dry, Intact, Normal Color, Warm Assessment and Plan - Assessment and Plan (Free Text) Assessment: 76 yr old F admitted for dehydration and mechanical fall at home . Patient is tolerating PT, refuses sub-acute rehab. Psych recommended [facility] screening and adult protective services (APS) . APS may be arranged upon discharge. [facility] refuses to screen until UA is negative for infection. Patient has remained afebrile, infectious disease is onboard and appreciated, pt received 5 days of Ceftriaxone, today is Day 1/5 Cefdinir 300mg PO BID. Asymptomatic bacteuria -chronic, recurrent, pt denies dysuria,chronic leukocytosis improved -ID consult appreciated-Dr. Lugo : will follow recommendations -repeat urinalysis: Negative for nitrites, positive for large leukocyte esterase , microscopic bacteria and budding urine yeast -Day 5 of Ceftriaxone 1gm IV Q24H, today is Day 1/5 of Cefdinir 300mg PO. -Fluconazole 200mg PO QD-day 2 -f/u repeat UA and urine culture CKD Stage 4 (GFR 15-29) -stable, chronic, patient is at baseline -Nephrology consult appreciated-Dr. Harley: will follow recommendations ( continue Sevelamer, Vit D, renal and diabetic diet) IDDM -Uncontrolled, HbA1c 10.8 on 11/11/16 -Continue home meds (Glipizide SR 5mg PO Daily, Prandin 20mg PO TIDWM, Levemir 20mg SC HS, adjusted to Lispro 12mg SC BID, ASA 81mg PO Daily) -Lispro Coverage Scale (medium dose scale) -monitor POC glucose ACHS HLD -stable, chronic -lipid panel 08/31/16: (Triglycerides 213, Cholesterol 108, LDL 36, HDL 25) -continue home med (Atorvastatin 40mg PO Daily) HTN -controlled -continue home meds (Metoprolol 12.5mg PO BID, Valsartan 80mg PO Daily) -monitor BP Depression/Anxiety -chronic, Major Depressive Disorder, 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 Dove: will follow recommendations: [facility] screening and APS -consider [address] program, if [facility] is not possible DVT and GI Prophylaxis -Heparin 5,000 units SC Q12 -SCDs for now -Florastor 250mg PO BID <Min Woody - Last Filed: 01/26/17 06:47> Objective - Vital Signs/Intake and Output Vital Signs (last 24 hours): Temp Pulse Resp BP Pulse Ox 98.0 F 95 H 17 98/59 L 97 01/25/17 15:44 01/25/17 15:44 01/25/17 15:44 01/25/17 15:44 01/25/17 15:44 - Labs Labs: 01/24/17 06:05 01/22/17 16:00 PT 12.0 Seconds (9.8-13.1) 01/13/17 12:00 INR 1.1 (0.9-1.2) 01/13/17 12:00 APTT 29.7 Seconds (25.6-37.1) 01/13/17 12:00 Attending/Attestation - Attestation I have personally seen and examined this patient.: Yes I have fully participated in the care of the patient.: Yes I have reviewed all pertinent clinical information, including history, physical exam and plan: Yes
[2017-01-24] MEDS: Insulin Detemir 100 Units/ml Inj SC SCH (21:33)
[2017-01-24 22:07] LABS: SQUAMOUS EPITHIAL < 1 /hpf (0-5); URINE BACTERIA OCC (<OCC); URINE BILIRUBIN NEGATIVE (NEGATIVE); URINE BLOOD MODERATE (NEGATIVE); URINE CLARITY CLOUDY (Clear); URINE COLOR YELLOW (YELLOW); URINE GLUCOSE (UA) NEG (Normal); URINE LEUKOCYTE ESTERASE LARGE Leu/uL (Negative); URINE NITRATE NEGATIVE (NEGATIVE); URINE PROTEIN NEGATIVE (NEGATIVE); URINE UROBILINOGEN 0.2-1.0 mg/dL (0.2-1.0); WBC CLUMPS MANY /hpf
[2017-01-25 00:22] VITALS: O2SAT 97
[2017-01-25] MEDS: Insulin Lispro (humaLOG) 100 Units/ml Inj SC SCH ×5 (08:37→16:46)
[2017-01-25] MEDS: Cefdinir 300 MG CAP PO SCH ×2 (09:39→16:44)
[2017-01-25] MEDS: Multivitamin With Minerals Tab PO SCH (09:39)
[2017-01-25] MEDS: GlipiZIDE 5 mg SR Tab PO SCH (09:43)
[2017-01-25] MEDS: Saccharomyces Boulardi 250 mg Cap PO SCH ×2 (09:43→16:44)
--- NOTE | 2017-01-25 14:49 | CP.PCM.DIS ---
<Lissa Lagunas - Last Filed: 01/25/17 22:05> Provider - Provider Date of Admission: 01/13/17 22:59 Attending physician: Jose Juan Boswell MD Primary care physician: Dr. Boswell Consults: Dr. Horowitz-ID; Dr. Houston-nephrology; Dr. Carrizales-orthopedic; -psych Time Spent in preparation of Discharge (in minutes): 30 Diagnosis - Discharge Diagnosis (1) UTI due to Klebsiella species Status: Acute Priority: Medium (2) CKD (chronic kidney disease) stage 3, GFR 30-59 ml/min Status: Chronic Priority: Medium (3) Fracture of left wrist with routine healing Status: Chronic Priority: Low Hospital Course - Lab Results Lab Results: Micro Results 01/19/17 00:30 Blood Blood Culture - Final NO GROWTH AFTER 5 DAYS 01/19/17 00:30 Blood Gram Stain - Final TEST NOT PERFORMED 01/22/17 10:00 Urine,Clean Catch Urine Culture - Final 10-50,000 CFU/ML. MULTIPLE SPECIES. PROBABLE CONTAMINATION. 01/18/17 10:03 Urine Urine Culture - Final Klebsiella Pneumoniae Ssp Pneu Most Recent Lab Values WBC 10.5 K/uL (4.8-10.8) 01/24/17 06:05 RBC 4.18 Mil/uL (3.80-5.20) 01/24/17 06:05 Hgb 10.3 g/dL (12.0-16.0) L 01/24/17 06:05 Hct 33.5 % (34.0-47.0) L 01/24/17 06:05 MCV 80.3 fl (81.0-99.0) L 01/24/17 06:05 MCH 24.7 pg (27.0-31.0) L 01/24/17 06:05 MCHC 30.7 g/dL (33.0-37.0) L 01/24/17 06:05 RDW 16.5 % (11.5-14.5) H 01/24/17 06:05 Plt Count 370 K/uL (130-400) 01/24/17 06:05 MPV 7.9 fl (7.2-11.7) 01/24/17 06:05 Neut % (Auto) 56.8 % (50.0-75.0) 01/24/17 06:05 Lymph % (Auto) 30.4 % (20.0-40.0) 01/24/17 06:05 Wheeler % (Auto) 7.1 % (0.0-10.0) 01/24/17 06:05 Eos % (Auto) 4.8 % (0.0-4.0) H 01/24/17 06:05 Baso % (Auto) 0.9 % (0.0-2.0) 01/24/17 06:05 Neut # 5.9 K/uL (1.8-7.0) 01/24/17 06:05 Lymph # 3.2 K/uL (1.0-4.3) 01/24/17 06:05 Wheeler # 0.7 K/uL (0.0-0.8) 01/24/17 06:05 Eos # 0.5 K/uL (0.0-0.7) 01/24/17 06:05 Baso # 0.1 K/uL (0.0-0.2) 01/24/17 06:05 PT 12.0 Seconds (9.8-13.1) 01/13/17 12:00 INR 1.1 (0.9-1.2) 01/13/17 12:00 APTT 29.7 Seconds (25.6-37.1) 01/13/17 12:00 Sodium 139 mmol/l (132-148) 01/22/17 16:00 Potassium 4.2 MMOL/L (3.6-5.0) 01/22/17 16:00 Chloride 108 mmol/L (98-107) H 01/22/17 16:00 Carbon Dioxide 20 mmol/L (22-30) L 01/22/17 16:00 Anion Gap 15 (10-20) 01/22/17 16:00 BUN 46 mg/dl (7-17) H 01/22/17 16:00 Creatinine 2.1 mg/dL (0.7-1.2) H 01/22/17 16:00 Est GFR ( Amer) 28 01/22/17 16:00 Est GFR (Non-Af Amer) 23 01/22/17 16:00 POC Glucose (mg/dL) 89 mg/dL (65-110) 01/25/17 06:02 Random Glucose 134 mg/dL (65-105) H 01/22/17 16:00 Lactic Acid 2.4 MMOL/L (0.7-2.1) H 01/13/17 12:00 Calcium 8.7 mg/dL (8.4-10.2) 01/22/17 16:00 Phosphorus 4.7 mg/dl (2.5-4.5) H 01/21/17 05:30 Magnesium 2.3 MG/DL (1.6-2.3) 01/21/17 05:30 Total Bilirubin 0.3 mg/dl (0.2-1.3) 01/14/17 06:30 AST 17 U/L (14-36) 01/14/17 06:30 ALT 21 U/L (9-52) 01/14/17 06:30 Alkaline Phosphatase 123 U/L (38-126) 01/14/17 06:30 Total Creatine Kinase 69 U/L (30-135) 01/14/17 06:00 Troponin I 0.0160 ng/mL (0.00-0.120) 01/14/17 06:30 NT-Pro-B Natriuret Pep 223 pg/ml (0-900) 01/21/17 05:30 Total Protein 7.5 G/DL (6.3-8.2) 01/14/17 06:30 Total Protein (PEP) 6.9 g/dL (6.1-8.1) 01/15/17 06:00 Albumin 3.6 g/dL (3.5-5.0) 01/14/17 06:30 Albumin (PEP) 3.1 g/dL (3.8-4.8) L 01/15/17 06:00 Globulin 3.8 gm/dL (2.2-3.9) 01/14/17 06:30 Albumin/Globulin Ratio 0.9 (1.0-2.1) L 01/14/17 06:30 Swbuw-0-Npaftvgwc 0.5 g/dL (0.2-0.3) H 01/15/17 06:00 Jrhbt-5-Kyjmxkkrf 1.0 g/dL (0.5-0.9) H 01/15/17 06:00 Uvfk-2-Bcalzpmg 0.4 g/dL (0.4-0.6) 01/15/17 06:00 Wukk-3-Gvzfwqnv 0.5 g/dL (0.2-0.5) 01/15/17 06:00 Gamma Globulins 1.5 g/dL (0.8-1.7) 01/15/17 06:00 Abnorm Protein Band 1 TEST NOT PERFORMED 01/15/17 06:00 Abnorm Protein Band 2 TEST NOT PERFORMED 01/15/17 06:00 Abnorm Protein Band 3 TEST NOT PERFORMED 01/15/17 06:00 Vitamin B12 > 1000 pg/mL (239-931) H 01/15/17 06:00 25-OH Vitamin D Total 18.0 NG/ML (30.0-100.0) L 01/21/17 05:30 Folate 8.2 ng/mL 01/15/17 06:00 TSH 3rd Generation 2.14 mIU/ML (0.46-4.68) 01/16/17 06:35 PTH Intact Whole Molec 10 pg/mL (14-64) L 01/21/17 05:30 Urine Color Yellow (YELLOW) 01/24/17 21:46 Urine Clarity Cloudy (Clear) 01/24/17 21:46 Urine pH 6.0 (5.0-8.0) 01/24/17 21:46 Ur Specific [place] 1.010 (1.003-1.030) 01/24/17 21:46 Urine Protein Negative mg/dL (NEGATIVE) 01/24/17 21:46 Urine Glucose (UA) Neg mg/dL (Normal) 01/24/17 21:46 Urine Ketones Negative mg/dL (NEGATIVE) 01/24/17 21:46 Urine Blood Moderate (NEGATIVE) 01/24/17 21:46 Urine Nitrate Negative (NEGATIVE) 01/24/17 21:46 Urine Bilirubin Negative (NEGATIVE) 01/24/17 21:46 Urine Urobilinogen 0.2-1.0 mg/dL (0.2-1.0) 01/24/17 21:46 Ur Leukocyte Esterase Large Emilio/uL (Negative) 01/24/17 21:46 Urine RBC (Auto) 76 /hpf (0-3) H 01/24/17 21:46 Urine WBC Clumps (Auto) Many /hpf (NONE) H 01/24/17 21:46 Urine Microscopic WBC 626 /hpf (0-5) H 01/24/17 21:46 Ur Squamous Epith Cells < 1 /hpf (0-5) 01/24/17 21:46 Urine Bacteria Occ (<OCC) H 01/24/17 21:46 Hyaline Casts 0-2 /hpf (0-2) 01/13/17 18:00 Urine Yeast (Budding) Many /hpf (NEGATIVE) H 01/23/17 15:55 PETAR & SPEP Interp See note 01/15/17 06:00 - Hospital Course Hospital Course: 76 yr old F admitted for dehydration and mechanical fall at home . Patient was found to have resistant Klebsiella pneumoniae UTI, ID was on board and treated with IV and PO antibiotics. Patient also had left wrist in a cast due to failed outpatient followup after ORIF in 10/2016, ortho was on board and removed cast and javi. Patient has exhibited severe self neglect, Psych was consulted and recommended [facility] screening and adult protective services (APS) . [facility] screened patient and refused her for involuntary admission. APS has been arranged and will visit patient at home after discharge today. Patient has remained afebrile, tolerating PO diet, tolerating PT. She refuses PT's recommendations for subacute rehab and refuses home services. Extensive discussion today with son (Ede Reza [phone]) reveals that at home patient refuses to take medication or get out of bed for many days to weeks at a time. Son reports he lives with patient but is not there everyday as he works different jobs and also has medical conditions which require him to be hospitalized at times. Son reports his siblings and he attempted to move patient into a fdc facility but she refused as well. He confirms she is pretty independent and drives herself to places but her self neglect is worsening. He is also concerned and attempted to contact APS prior to patients admission to hospital. Patient was discharged stable, with instructions to take Cefdinir 300mg PO BID x 3 days, resume home medications as prescribed, follow up with Dr. Boswell within 1 week, expect visit from Adult Protective Services, follow up with international trade manager. - Date & Time of H&P Date of H&P: 01/14/17 Time of H&P: 01:02 Discharge Exam - Head Exam Head Exam: ATRAUMATIC, NORMOCEPHALIC - Eye Exam Eye Exam: EOMI, PERRL - ENT Exam ENT Exam: Mucous Membranes Moist - Neck Exam Neck exam: Full Rom - Respiratory Exam Respiratory Exam: NORMAL BREATHING PATTERN. absent: Respiratory Distress - Cardiovascular Exam Cardiovascular Exam: REGULAR RHYTHM, +S1, +S2 - GI/Abdominal Exam GI & Abdominal Exam: Normal Bowel Sounds, Soft. absent: Tenderness - Extremities Exam Extremities exam: full ROM - Back Exam Back exam: absent: CVA tenderness (L), CVA tenderness (R) - Neurological Exam Neurological exam: Alert, CN II-XII Intact, Oriented x3 - Psychiatric Exam Psychiatric exam: Normal Affect, Normal Mood - Skin Skin Exam: Dry, Intact, Warm Discharge Plan - Discharge Medications Prescriptions: Cefdinir [Omnicef] 300 mg PO BID #6 cap Saccharomyces Boulardi [Florastor] 250 mg PO BID #30 cap - Follow Up Plan Condition: FAIR Disposition: DISCHARGED TO HOME CARE Instructions: Dehydration (DC), Urinary Tract Infection in Women (DC), Diabetes Mellitus Type 2 in Adults (DC), Fall Prevention (DC) Additional Instructions: [facility] [address] [place] [id number] -Weight bearing as tolerated -Take medications as prescribed -Follow up with your PMD Dr. Boswell within 1 week -Adult Protective Services referral placed, please expect their visit -Follow up with your international trade manager Referrals: Jos eJuan Boswell MD [Family Provider] - <Jose Juan Boswell - Last Filed: 01/30/17 07:07> Provider - Provider Date of Admission: 01/13/17 22:59 Attending physician: Jose Juan Boswell MD Hospital Course - Lab Results Lab Results: Micro Results 01/24/17 21:46 Urine,Catheterized Urine Culture - Final No Growth (<1,000 CFU/ML) 01/19/17 00:30 Blood Blood Culture - Final NO GROWTH AFTER 5 DAYS 01/19/17 00:30 Blood Gram Stain - Final TEST NOT PERFORMED 01/22/17 10:00 Urine,Clean Catch Urine Culture - Final 10-50,000 CFU/ML. MULTIPLE SPECIES. PROBABLE CONTAMINATION. 01/18/17 10:03 Urine Urine Culture - Final Klebsiella Pneumoniae Ssp Pneu Most Recent Lab Values WBC 10.5 K/uL (4.8-10.8) 01/24/17 06:05 RBC 4.18 Mil/uL (3.80-5.20) 01/24/17 06:05 Hgb 10.3 g/dL (12.0-16.0) L 01/24/17 06:05 Hct 33.5 % (34.0-47.0) L 01/24/17 06:05 MCV 80.3 fl (81.0-99.0) L 01/24/17 06:05 MCH 24.7 pg (27.0-31.0) L 01/24/17 06:05 MCHC 30.7 g/dL (33.0-37.0) L 01/24/17 06:05 RDW 16.5 % (11.5-14.5) H 01/24/17 06:05 Plt Count 370 K/uL (130-400) 01/24/17 06:05 MPV 7.9 fl (7.2-11.7) 01/24/17 06:05 Neut % (Auto) 56.8 % (50.0-75.0) 01/24/17 06:05 Lymph % (Auto) 30.4 % (20.0-40.0) 01/24/17 06:05 Wheeler % (Auto) 7.1 % (0.0-10.0) 01/24/17 06:05 Eos % (Auto) 4.8 % (0.0-4.0) H 01/24/17 06:05 Baso % (Auto) 0.9 % (0.0-2.0) 01/24/17 06:05 Neut # 5.9 K/uL (1.8-7.0) 01/24/17 06:05 Lymph # 3.2 K/uL (1.0-4.3) 01/24/17 06:05 Wheeler # 0.7 K/uL (0.0-0.8) 01/24/17 06:05 Eos # 0.5 K/uL (0.0-0.7) 01/24/17 06:05 Baso # 0.1 K/uL (0.0-0.2) 01/24/17 06:05 PT 12.0 Seconds (9.8-13.1) 01/13/17 12:00 INR 1.1 (0.9-1.2) 01/13/17 12:00 APTT 29.7 Seconds (25.6-37.1) 01/13/17 12:00 Sodium 139 mmol/l (132-148) 01/22/17 16:00 Potassium 4.2 MMOL/L (3.6-5.0) 01/22/17 16:00 Chloride 108 mmol/L (98-107) H 01/22/17 16:00 Carbon Dioxide 20 mmol/L (22-30) L 01/22/17 16:00 Anion Gap 15 (10-20) 01/22/17 16:00 BUN 46 mg/dl (7-17) H 01/22/17 16:00 Creatinine 2.1 mg/dL (0.7-1.2) H 01/22/17 16:00 Est GFR ( Amer) 28 01/22/17 16:00 Est GFR (Non-Af Amer) 23 01/22/17 16:00 POC Glucose (mg/dL) 225 mg/dL (65-110) H 01/25/17 15:54 Random Glucose 134 mg/dL (65-105) H 01/22/17 16:00 Lactic Acid 2.4 MMOL/L (0.7-2.1) H 01/13/17 12:00 Calcium 8.7 mg/dL (8.4-10.2) 01/22/17 16:00 Phosphorus 4.7 mg/dl (2.5-4.5) H 01/21/17 05:30 Magnesium 2.3 MG/DL (1.6-2.3) 01/21/17 05:30 Total Bilirubin 0.3 mg/dl (0.2-1.3) 01/14/17 06:30 AST 17 U/L (14-36) 01/14/17 06:30 ALT 21 U/L (9-52) 01/14/17 06:30 Alkaline Phosphatase 123 U/L (38-126) 01/14/17 06:30 Total Creatine Kinase 69 U/L (30-135) 01/14/17 06:00 Troponin I 0.0160 ng/mL (0.00-0.120) 01/14/17 06:30 NT-Pro-B Natriuret Pep 223 pg/ml (0-900) 01/21/17 05:30 Total Protein 7.5 G/DL (6.3-8.2) 01/14/17 06:30 Total Protein (PEP) 6.9 g/dL (6.1-8.1) 01/15/17 06:00 Albumin 3.6 g/dL (3.5-5.0) 01/14/17 06:30 Albumin (PEP) 3.1 g/dL (3.8-4.8) L 01/15/17 06:00 Globulin 3.8 gm/dL (2.2-3.9) 01/14/17 06:30 Albumin/Globulin Ratio 0.9 (1.0-2.1) L 01/14/17 06:30 Vwvsk-4-Adgshqhlz 0.5 g/dL (0.2-0.3) H 01/15/17 06:00 Tnobv-3-Eqpvzywfp 1.0 g/dL (0.5-0.9) H 01/15/17 06:00 Tohk-7-Emjrtbnq 0.4 g/dL (0.4-0.6) 01/15/17 06:00 Dryb-9-Ipeuonfj 0.5 g/dL (0.2-0.5) 01/15/17 06:00 Gamma Globulins 1.5 g/dL (0.8-1.7) 01/15/17 06:00 Abnorm Protein Band 1 TEST NOT PERFORMED 01/15/17 06:00 Abnorm Protein Band 2 TEST NOT PERFORMED 01/15/17 06:00 Abnorm Protein Band 3 TEST NOT PERFORMED 01/15/17 06:00 Vitamin B12 > 1000 pg/mL (239-931) H 01/15/17 06:00 25-OH Vitamin D Total 18.0 NG/ML (30.0-100.0) L 01/21/17 05:30 Folate 8.2 ng/mL 01/15/17 06:00 TSH 3rd Generation 2.14 mIU/ML (0.46-4.68) 01/16/17 06:35 PTH Intact Whole Molec 10 pg/mL (14-64) L 01/21/17 05:30 Urine Color Yellow (YELLOW) 01/24/17 21:46 Urine Clarity Cloudy (Clear) 01/24/17 21:46 Urine pH 6.0 (5.0-8.0) 01/24/17 21:46 Ur Specific [place] 1.010 (1.003-1.030) 01/24/17 21:46 Urine Protein Negative mg/dL (NEGATIVE) 01/24/17 21:46 Urine Glucose (UA) Neg mg/dL (Normal) 01/24/17 21:46 Urine Ketones Negative mg/dL (NEGATIVE) 01/24/17 21:46 Urine Blood Moderate (NEGATIVE) 01/24/17 21:46 Urine Nitrate Negative (NEGATIVE) 01/24/17 21:46 Urine Bilirubin Negative (NEGATIVE) 01/24/17 21:46 Urine Urobilinogen 0.2-1.0 mg/dL (0.2-1.0) 01/24/17 21:46 Ur Leukocyte Esterase Large Emilio/uL (Negative) 01/24/17 21:46 Urine RBC (Auto) 76 /hpf (0-3) H 01/24/17 21:46 Urine WBC Clumps (Auto) Many /hpf (NONE) H 01/24/17 21:46 Urine Microscopic WBC 626 /hpf (0-5) H 01/24/17 21:46 Ur Squamous Epith Cells < 1 /hpf (0-5) 01/24/17 21:46 Urine Bacteria Occ (<OCC) H 01/24/17 21:46 Hyaline Casts 0-2 /hpf (0-2) 01/13/17 18:00 Urine Yeast (Budding) Many /hpf (NEGATIVE) H 01/23/17 15:55 PETAR & SPEP Interp See note 01/15/17 06:00 Attending/Attestation - Attestation I have personally seen and examined this patient.: Yes I have fully participated in the care of the patient.: Yes I have reviewed all pertinent clinical information, including history, physical exam and plan: Yes
[2017-01-25] MEDS: Ergocalciferol 50,000 Intl Units Cap PO SCH (14:58)
[2017-01-25 15:45] VITALS: BP 98/59; PULSE 95; RESP 17; TEMP 98
== END 2017-01-25 20:00 | disposition home health service (06) | DRG 641 ==
LOC: H.ER 21:10 → H.ERHOLD 22:59 → H.MEDSURG1 01-14 02:55
PROVIDERS: ADMIT Family Medicine; ATTEND Family Medicine
DX: E86.0 Dehydration (principal); N17.9 Acute kidney failure, unspecified; F33.2 Major depressive disorder, recurrent severe without psychotic features; E11.22 Type 2 diabetes mellitus with diabetic chronic kidney disease; E11.65 Type 2 diabetes mellitus with hyperglycemia; N13.6 Pyonephrosis; D63.1 Anemia in chronic kidney disease; E83.39 Other disorders of phosphorus metabolism; E87.5 Hyperkalemia; J44.9 Chronic obstructive pulmonary disease, unspecified; N18.3 Chronic kidney disease, stage 3 (moderate); I12.9 Hypertensive chronic kidney disease with stage 1 through stage 4 chronic kidney disease, or unspecified chronic kidney disease; F41.9 Anxiety disorder, unspecified; Z91.14 Patient's other noncompliance with medication regimen; B96.1 Klebsiella pneumoniae [K. pneumoniae] as the cause of diseases classified elsewhere; D47.3 Essential (hemorrhagic) thrombocythemia; Z79.4 Long term (current) use of insulin; E78.00 Pure hypercholesterolemia, unspecified; E55.9 Vitamin D deficiency, unspecified; E78.5 Hyperlipidemia, unspecified; S52.502D Unspecified fracture of the lower end of left radius, subsequent encounter for closed fracture with routine healing; X58.XXXD Exposure to other specified factors, subsequent encounter

== ENCOUNTER 2017-03-25 19:21 | Emergency (ER) | payer MEDICARE ==
[2017-03-25 19:21] VITALS: BMI 32.5
[2017-03-25 19:29] VITALS: TEMP 98.6; O2SAT 96
--- NOTE | 2017-03-25 20:01 | ED PDOC ---
Lower Extremity Pain/Injury Additional History Per: Patient Additional Complaint(s): 76F BIBA p/w c/o of lower extremity weakness that she has had before. She reports she was sitting in her truck for 3hrs enjoying the A/C because her apartment is not air conditioned and when she went to get out of the truck her legs felt weak. She denies falling, instability, dizziness, headache, SOB, chest pain, palpitations, N/V, abdominal pain, diarrhea, polyuria, dysuria. She is incontinent at baseline and uses a cane at baseline. She now reports she feels well. PMH: DM, HTN, HLD PSH: Tonsillectomy Lives with her son <Queta Mims - Last Filed: 03/25/17 22:27> <Brody Hopper - Last Filed: 03/25/17 22:48> Time Seen by Provider: 03/25/17 19:38 Chief Complaint (Nursing): Lower Extremity Problem/Injury Supervising Attending Note - Attestation: I have personally seen and examined this patient.: Yes I have fully participated in the care of the patient.: Yes I have reviewed all pertinent clinical information, including history, physical exam and plan: Yes <Brody Hopper - Last Filed: 03/25/17 22:48> Past Medical History Vital Signs: Last Vital Signs Temp 37.0 C 03/25/17 19:25 Pulse 96 H 03/25/17 19:25 Resp 18 03/25/17 19:25 BP 164/74 H 03/25/17 19:25 Pulse Ox 96 03/25/17 19:25 - Medical History PMH: Anxiety, Arthritis, COPD, Depression, Diabetes (type II), HTN, Hypercholesterolemia, Pneumonia, Chronic Kidney Disease Denies: HIV - Surgical History Surgical History: Tonsillectomy - Family History Family History: States: Unknown Family Hx <Queta Mims - Last Filed: 03/25/17 22:27> Vital Signs: Last Vital Signs Temp 98.6 F 03/25/17 19:25 Pulse 94 H 03/25/17 20:05 Resp 20 03/25/17 20:05 BP 154/88 H 03/25/17 20:05 Pulse Ox 96 03/25/17 22:30 <Brody Hopper - Last Filed: 03/25/17 22:48> - Home Medications Home Medications: Ambulatory Orders Medication Instructions Recorded Aspirin [Ecotrin] 81 mg PO DAILY #0 tabec 11/15/15 Atorvastatin [Lipitor] 40 mg PO DAILY #0 tab 11/15/15 Cyanocobalamin [Vitamin B12 1000 1 tab PO DAILY #0 tab 11/15/15 mcg Tab] Metoprolol Tartrate [Lopressor] 12.5 mg PO Q12 #0 tab 11/15/15 Repaglinide [Prandin] 2 mg PO TIDWM #0 tab 11/15/15 Valsartan [Diovan] 80 mg PO DAILY #0 tab 11/15/15 Acetaminophen [Tylenol 325mg tab] 650 mg PO Q6H PRN #0 tab 01/08/16 PARoxetine [Paxil] 20 mg PO DAILY #0 tab 01/08/16 Multivit-Min/Iron/Folic/Lutein 1 tab PO DAILY 08/31/16 [Centrum Silver Women Tablet] Sodium Bicarbonate Tab 650 mg PO DAILY 08/31/16 Ferrous Sulfate [Feosol] 325 mg PO BID #60 tab 09/03/16 GlipiZIDE SR [Glucotrol XL] 10 mg PO ACBD@0730,1630 #60 tab 09/03/16 Insulin Lispro [Humalog Kwikpen 12 unit SQ AC #1 insuln.pen 09/03/16 U-100] Pen Needle, Diabetic [Insulin Pen 1 each [facility] #90 dis.needle 09/03/16 Needle] Docusate Sodium/Sennosides A 2 tab PO HS tab 11/09/16 [Senokot S 50 MG-8.6 MG] Cefdinir [Omnicef] 300 mg PO BID #6 cap 01/25/17 Ergocalciferol [Drisdol 50,000 1 cap PO Q7D cap 01/25/17 Intl Units Cap] Saccharomyces Boulardi [Florastor] 250 mg PO BID #30 cap 01/25/17 Sevelamer [Renagel] 800 mg PO TID tab 01/25/17 Ciprofloxacin [Cipro] 500 mg PO BID 10 Days 03/25/17 - Allergies Allergies/Adverse Reactions: Allergies Allergy/AdvReac Type Severity Reaction Status Date / Time No Known Allergies Allergy Verified 01/04/16 20:19 Review of Systems ROS Statement: Except As Marked, All Systems Reviewed And Found Negative Neurological: Positive for: Weakness (b/l lower extremity, has happened before) <FelicitaQueta - Last Filed: 03/25/17 22:27> Physical Exam - Reviewed Vital Signs Reviewed: Yes - Physical Exam Appears: Positive for: Non-toxic, No Acute Distress Head Exam: Positive for: ATRAUMATIC, NORMAL INSPECTION Skin: Positive for: Warm Eye Exam: Positive for: EOMI, PERRL Neck: Positive for: Normal, Supple Cardiovascular/Chest: Positive for: Regular Rate, Rhythm, Murmur (diastolic). Negative for: JVD Respiratory: Positive for: Normal Breath Sounds, Wheezing (minimal expiratory b/ l). Negative for: Crackles, Rales, Rhonchi Pulses-Dorsalis Pedis (L): 2+ Pulses-Dorsalis Pedis (R): 2+ Pulses-Radial (L): 2+ Pulses-Radial (R): 2+ Gastrointestinal/Abdominal: Positive for: Bowel Sounds, Soft. Negative for: Tenderness Back: Negative for: L CVA Tenderness, R CVA Tenderness Extremity: Positive for: Capillary Refill (<3s), Other (Strength 5/5 b/l and equal). Negative for: Tenderness, Pedal Edema, Swelling Neurologic/Psych: Positive for: Alert, Oriented, Gait (at baseline with cane). Negative for: Motor/Sensory Deficits, Facial Droop <Queta Mims - Last Filed: 03/25/17 22:27> - Laboratory Results Result Diagrams: 03/25/17 20:20 03/25/17 20:20 - ECG O2 Sat by Pulse Oximetry: 96 <Queta Mims - Last Filed: 03/25/17 22:27> - Laboratory Results Result Diagrams: 03/25/17 20:20 03/25/17 20:20 <Brody Hopper - Last Filed: 03/25/17 22:48> Medical Decision Making Medical Decision MakinF with recurrent lower extremity feeling of weakness w/o neuro deficits. Will evaluate for infection, electrolyte imbalance, cardiac arrhythmia. - Urine Dip, urinalysis - EKG - VBG, CBC, CMP Re-Eval EKG: no acute changes when compared to prior CBC: mild leukocytosis with shift CMP: BUN/Cr within range for patient, mild hyponatremia likely secondary to elevated glucose Urinalysis: Leuks- Lg, Blood-Pos, WBCs- positive VBG: Lactate- 0.9, pH-7.37 Discussed with patient and family. She would like to go home with antibiotics. <Queta Mims - Last Filed: 03/25/17 22:27> Disposition - Patient ED Disposition Is Patient to be Admitted: No Counseled Patient/Family Regarding: Studies Performed, Need For Followup, Rx Given - Disposition Disposition Time: 22:29 <Queta Mims - Last Filed: 03/25/17 22:27> <Brody Hopper - Last Filed: 03/25/17 22:48> - Clinical Impression Clinical Impression: UTI (urinary tract infection), uncomplicated - Disposition Referrals: Jose Juan Boswell MD [Staff Provider] - Condition: IMPROVED Additional Instructions: Return to the emergency room if you develop fever or chills. Prescriptions: Ciprofloxacin [Cipro] 500 mg PO BID 10 Days Forms: [employer] (Turkish)
[2017-03-25 20:05] VITALS: BP 154/88; PULSE 94; RESP 20
[2017-03-25 20:32] LABS: BASO % 0.3 % (0.0-2.0); EOS % 0.2 % (0.0-4.0); HEMATOCRIT 33.1 % (34.0-47.0); LYMPH # 0.8 K/uL (1.0-4.3); LYMPH % 6.6 % (20.0-40.0); MEAN CELL VOLUME 80.7 fl (81.0-99.0); MEAN CORPUSCULAR HEMOGLOBIN 25.7 pg (27.0-31.0); MEAN CORPUSCULAR HGB CONC 31.8 g/dL (33.0-37.0); MEAN PLATELET VOLUME 7.7 fl (7.2-11.7); MONO % 8.4 % (0.0-10.0); NEUT # 10.1 K/uL (1.8-7.0); NEUT % 84.5 % (50.0-75.0); PLATELET COUNT 328 K/uL (130-400); RED CELL DISTRIBUTION WIDTH 15.8 % (11.5-14.5)
[2017-03-25 20:45] LABS: VENOUS BLOOD GAS BASE EXCESS -4.8 mmol/L (0.0-2.0); VENOUS BLOOD GAS PCO2 34 mmHg (40-60); VENOUS BLOOD PH 7.37 (7.32-7.43)
[2017-03-25 20:49] LABS: ALB/GLOB RATIO 1.1 (1.0-2.1); BILIRUBIN,TOTAL 0.7 mg/dl (0.2-1.3); CALCIUM 9.2 mg/dL (8.4-10.2); POTASSIUM 4.8 MMOL/L (3.6-5.0); TOTAL PROTEIN 7.4 G/DL (6.3-8.2)
[2017-03-25 21:07] LABS: EOSINOPHIL 1 % (0-7); NEUTROPHIL 86 % (42-75); TOTAL CELLS COUNTED 100
[2017-03-25 21:36] LABS: RBC URINE 26 /hpf (0-3); URINE BACTERIA RARE (<OCC); URINE BILIRUBIN NEGATIVE (NEGATIVE); URINE BLOOD MODERATE (NEGATIVE); URINE COLOR YELLOW (YELLOW); URINE GLUCOSE (UA) >=500 mg/dL (Normal); URINE KETONE NEGATIVE (NEGATIVE); URINE LEUKOCYTE ESTERASE LARGE Leu/uL (Negative); URINE PROTEIN 100 mg/dL (NEGATIVE); URINE UROBILINOGEN 0.2-1.0 mg/dL (0.2-1.0); WBC CLUMPS MANY /hpf; WBC URINE 2085 /hpf (0-5)
--- NOTE | 2017-03-26 09:25 | CARD ---
APPROVED REPORT EKG Measurement Heart [id number] <Conclusion> Normal sinus rhythm Left axis deviation Inferior infarct, age undetermined Possible Anterior infarct, age undetermined Abnormal ECG
== END 2017-03-25 23:22 | disposition home or self-care (01) ==
LOC: H.ER 19:21
DX: N39.0 Urinary tract infection, site not specified (principal); E11.22 Type 2 diabetes mellitus with diabetic chronic kidney disease; E78.00 Pure hypercholesterolemia, unspecified; F32.9 Major depressive disorder, single episode, unspecified; F41.9 Anxiety disorder, unspecified; I12.9 Hypertensive chronic kidney disease with stage 1 through stage 4 chronic kidney disease, or unspecified chronic kidney disease; Z79.4 Long term (current) use of insulin; Z79.82 Long term (current) use of aspirin

== ENCOUNTER 2017-05-08 21:14 | Inpatient (IN) | payer MEDICARE ==
[2017-05-08 21:14] VITALS: BMI 32.5
[2017-05-08] MEDS ORDERED: Sodium Chloride 0.9% 1,000 ML IV STA (21:42)
[2017-05-08 22:51] LABS: VENOUS BLOOD GAS BASE EXCESS -20.3 mmol/L (0.0-2.0); VENOUS BLOOD GAS PCO2 24 mmHg (40-60); VENOUS BLOOD PH 7.11 (7.32-7.43)
[2017-05-08 23:22] LABS: BASO % 0.2 % (0.0-2.0); HEMATOCRIT 41.3 % (34.0-47.0); LYMPH # 1.5 K/uL (1.0-4.3); LYMPH % 7.9 % (20.0-40.0); MEAN CELL VOLUME 79.5 fl (81.0-99.0); MEAN CORPUSCULAR HEMOGLOBIN 25.6 pg (27.0-31.0); MEAN CORPUSCULAR HGB CONC 32.3 g/dL (33.0-37.0); MEAN PLATELET VOLUME 8.2 fl (7.2-11.7); MONO # 0.7 K/uL (0.0-0.8); MONO % 3.9 % (0.0-10.0); NEUT # 16.5 K/uL (1.8-7.0); PLATELET COUNT 432 K/uL (130-400); RED CELL DISTRIBUTION WIDTH 14.8 % (11.5-14.5); WHITE BLOOD COUNT 18.7 K/uL (4.8-10.8)
[2017-05-08 23:27] LABS: ALKALINE PHOSPHATASE 177 U/L (38-126); AST/SGOT 45 U/L (14-36); BILIRUBIN,TOTAL 0.9 mg/dl (0.2-1.3); CALCIUM 9.7 mg/dL (8.4-10.2); CHLORIDE 96 mmol/L (98-107); GFR AFRICAN-AMERICAN 7; GLUCOSE,RANDOM 310 mg/dL (65-105); SODIUM 122 mmol/l (132-148)
[2017-05-08 23:38] LABS: BLOOD UREA NITROGEN 149 mg/dl (7-17)
[2017-05-08 23:40] LABS: POTASSIUM 7.4 MMOL/L (3.6-5.0)
[2017-05-08 23:41] LABS: CARBON DIOXIDE 6 mmol/L (22-30)
[2017-05-08 23:42] LABS: ALT/SGPT < 6 U/L (9-52)
[2017-05-08 23:44] LABS: PARTIAL THROMBOPLASTIN TIME 32.4 Seconds (25.6-37.1)
[2017-05-08] MEDS ORDERED: Insulin Regular 100 units/ml IV STA (23:47)
[2017-05-08] MEDS ORDERED: Piperacillin/Tazobact 3.375 GM in Sodium Chloride 0.9% 100 ML IVPB STA (23:47)
[2017-05-08] MEDS ORDERED: Insulin Regular 100 units/ml ONE (23:56)
[2017-05-09] MEDS ORDERED: Piperacillin/Tazobact 3.375 gm Inj IVPB ONE (00:01)
--- NOTE | 2017-05-09 00:17 | ED PDOC ---
HPI: Abdomen Time Seen by Provider: 05/08/17 21:49 Chief Complaint (Nursing): Altered Mental Status Chief Complaint (Provider): AMS History Per: Patient History/Exam Limitations: no limitations Additional Complaint(s): 76yo F in ED bought to ER by EMS-her son called EMS-according to son-pt has been bedbound for 2 weeks unwilling to move out of bed stating she is depressed and doesn't' want to eat, mentioned to her son to let her stay in bed and . her son states pt has not been taking any medications for her renal insufficiency, DM, HTN. Pt has defecated/urinated and vomiting. PT states she does not feel well, has body aches and fever/chills. according to EMS-pt had coffee ground emesis x 1 en route to ER Past Medical History Reviewed: Historical Data, Nursing Documentation, Vital Signs Vital Signs: Last Vital Signs Temp 98.1 F 05/09/17 02:26 Pulse 95 H 05/09/17 02:26 Resp 16 05/09/17 02:26 BP 112/66 05/09/17 02:26 Pulse Ox 99 05/09/17 02:26 - Medical History PMH: Anxiety, Arthritis, COPD, Depression, Diabetes (type II), HTN, Hypercholesterolemia, Pneumonia, Chronic Kidney Disease Denies: HIV - Surgical History Surgical History: Tonsillectomy - Family History Family History: States: Unknown Family Hx - Home Medications Home Medications: Ambulatory Orders Medication Instructions Recorded Aspirin [Ecotrin] 81 mg PO DAILY #0 tabec 11/15/15 Atorvastatin [Lipitor] 40 mg PO DAILY #0 tab 11/15/15 Cyanocobalamin [Vitamin B12 1000 1 tab PO DAILY #0 tab 11/15/15 mcg Tab] Metoprolol Tartrate [Lopressor] 12.5 mg PO Q12 #0 tab 11/15/15 Repaglinide [Prandin] 2 mg PO TIDWM #0 tab 11/15/15 Valsartan [Diovan] 80 mg PO DAILY #0 tab 11/15/15 Acetaminophen [Tylenol 325mg tab] 650 mg PO Q6H PRN #0 tab 01/08/16 PARoxetine [Paxil] 20 mg PO DAILY #0 tab 01/08/16 Multivit-Min/Iron/Folic/Lutein 1 tab PO DAILY 08/31/16 [Centrum Silver Women Tablet] Sodium Bicarbonate Tab 650 mg PO DAILY 08/31/16 Ferrous Sulfate [Feosol] 325 mg PO BID #60 tab 09/03/16 GlipiZIDE SR [Glucotrol XL] 10 mg PO ACBD@0730,1630 #60 tab 09/03/16 Insulin Lispro [Humalog Kwikpen 12 unit SQ AC #1 insuln.pen 09/03/16 U-100] Pen Needle, Diabetic [Insulin Pen 1 each ACHS #90 dis.needle 09/03/16 Needle] Docusate Sodium/Sennosides A 2 tab PO HS tab 11/09/16 [Senokot S 50 MG-8.6 MG] Ergocalciferol [Drisdol 50,000 1 cap PO Q7D cap 01/25/17 Intl Units Cap] Saccharomyces Boulardi [Florastor] 250 mg PO BID #30 cap 01/25/17 Sevelamer [Renagel] 800 mg PO TID tab 01/25/17 - Allergies Allergies/Adverse Reactions: Allergies Allergy/AdvReac Type Severity Reaction Status Date / Time No Known Allergies Allergy Verified 05/08/17 21:15 Review of Systems ROS Statement: Except As Marked, All Systems Reviewed And Found Negative Constitutional: Positive for: Weakness, Malaise Gastrointestinal: Positive for: Vomiting Neurological: Positive for: Weakness Physical Exam - Reviewed Nursing Documentation Reviewed: Yes Vital Signs Reviewed: Yes - Physical Exam Appears: Positive for: No Acute Distress, Uncomfortable. Negative for: Non- toxic (looks unwell. soiled/dried adult diapers, pale. ) Skin: Positive for: Normal Color, Warm, DRY Eye Exam: Positive for: EOMI, Normal appearance, PERRL Cardiovascular/Chest: Positive for: Regular Rate, Rhythm Respiratory: Positive for: CNT, Normal Breath Sounds Gastrointestinal/Abdominal: Positive for: Bowel Sounds, Soft, Tenderness ( diffuse tenderenss). Negative for: Distended Back: Positive for: Other (ertyhema noted to buttock area-no evdience at this time of decubitus ulcers) Extremity: Negative for: Pedal Edema, Calf Tenderness Neurologic/Psych: Positive for: Alert, Oriented - Laboratory Results Result Diagrams: 05/08/17 23:16 05/09/17 01:17 - ECG ECG Rhythm: Positive for: Sinus Rhythm, ST/T Changes, Nonspecific Changes O2 Sat by Pulse Oximetry: 97 - Radiology X-Ray: Interpreted by Me X-Ray Interpretation: COPD - Progress ED Course And Treament: r/o sepsis. crisis evaluation Orders Category Date Time Status VENOUS BLOOD GAS SHOCK PANEL Stat BG 05/08/17 21:44 Completed ABD & PELVIS W/O PO OR IV CONT [CT] Stat CT 05/08/17 23:41 Taken ELECTROCARDIOGRAM Stat Cardiology 05/08/17 21:41 Ordered ELECTROCARDIOGRAM Stat Cardiology 05/08/17 21:44 Ordered CMP [COMP METABOLIC PANEL] Stat Chem 05/08/17 23:43 Uncollected COMP METABOLIC PANEL Stat Chem 05/08/17 23:16 Completed TROPONIN I Stat Chem 05/08/17 23:16 Completed Crisis Evaluation As Ordered Cons 05/09/17 00:20 Ordered EKG-ED [EDNURTX] STAT ED Care 05/08/17 21:42 Active EKG-ED [EDNURTX] STAT ED Care 05/08/17 21:44 Active CHEST PORTABLE [RAD] Stat Exams 05/08/17 21:41 Taken CBC (WITH DIFFERENTIAL) Stat OMAR 05/08/17 23:16 Results PARTIAL THROMBOPLASTIN TIME [COAG] Stat OMAR 05/08/17 23:16 Completed PROTHROMBIN TIME [COAG] Stat OMAR 05/08/17 23:16 Completed Famotidine [Pepcid] Med 05/08/17 23:56 Discontinued 40 mg .ROUTE .STK-MED ONE Insulin Human Regular [HumuLIN R] Med 05/08/17 23:56 Discontinued 300 units .ROUTE .STK-MED ONE Insulin Human Regular [HumuLIN R] Med 05/08/17 23:47 Discontinued 8.6183 units IV STAT STA Pantoprazole [Protonix Inj] Med 05/09/17 00:01 Discontinued 40 mg .ROUTE .STK-MED ONE Pantoprazole [Protonix Inj] Med 05/08/17 22:07 Discontinued 40 mg IVP STAT STA Piperacillin/Tazobact [Zosyn] Med 05/09/17 00:01 Discontinued 3.375 gm IVPB .STK-MED ONE Piperacillin/Tazobact [Zosyn] 3.375 gm Med 05/08/17 23:47 Active Sodium Chloride 0.9% 100 ml IVPB STAT Sodium Chloride 0.9% 1,000 ml Med 05/08/17 21:42 Discontinued IV 1,000 mls/hr BLOOD CULTURE Stat Micro 05/08/17 21:44 Ordered BLOOD CULTURE Stat Micro 05/08/17 21:45 Ordered URINE CULTURE Stat Micro 05/08/17 21:41 Uncollected [place] CONT NURSING 05/08/17 21:41 Active IV Insertion (Saline Lock) ONCE NURSING 05/08/17 21:40 Active Vital Signs Q15M Pt Care 05/08/17 21:41 Active OCCULT BLOOD, STOOL Stat URINALYSIS 05/08/17 21:44 Uncollected URINALYSIS Stat URINALYSIS 05/08/17 21:41 Uncollected Medical Decision Making Medical Decision Making: pt labs indicate renal insufficiency, elevated K+, acidosis and markedly low CO2. Pt will require close observation in ICU. pt will get Kayexlate 15mg, Sodium [id number], pt BS improved with insulin IV and NS IV Pt received Zosyn for elevated WBC . pt will get pynelia consult as an inpt for depression. pt pmd is MD Osmany service provided by [facility] and ICU under MD Frank. CT results: MPRESSION: Persistent bilateral hydroureteronephrosis, prominence of renal pelvic and ureteral mucosa raises the possibility of infection; empty bladder with bladder diverticula; hysterectomy; cystic adnexal masses right greater than left, similar finding seen on the prior study ; diverticulosis without CT findings of diverticulitis Additional findings as described above. Thank you for allowing us to participate in the care of your patient. Dictated and Authenticated by: Briseida Lane MD 05/09/2017 1:20 AM Eastern Time ([place] & [place]) Disposition - Clinical Impression Clinical Impression: Acute on chronic renal failure, Hyperkalemia, UTI (urinary tract infection) - Patient ED Disposition Is Patient to be Admitted: Yes - Disposition Disposition Time: 02:45 Condition: FAIR Forms: [facility] (Lithuanian) - Pt Status Changed To: Hospital Disposition Of: Inpatient - Admit Certification Admit to Inpatient:: After my assessment, the patient will require hospitalization for at least two midnights. This is because of the severity of symptoms shown, intensity of services needed, and/or the medical risk in this patient being treated as an outpatient.
[2017-05-09 00:44] LABS: ACANTHOCYTES SLIGHT; NEUTROPHIL 86 % (42-75); TOTAL CELLS COUNTED 100
[2017-05-09 00:45] LABS: STOMATOCYTES SLIGHT
[2017-05-09 00:47] LABS: LARGE PLATELETS PRESENT
--- NOTE | 2017-05-09 01:21 | CT ---
EXAM: CT Abdomen and Pelvis Without Intravenous Contrast EXAM DATE/TIME: 05/08/2017 11:41 PM CLINICAL HISTORY: 76 years old, female; Pain; Abdominal pain; Generalized; Additional info: Abominal pain TECHNIQUE: Axial computed tomography images of the abdomen and pelvis without intravenous contrast. All CT scans at this facility use one or more dose reduction techniques, viz.: automated exposure control; ma/kV adjustment per patient size (including targeted exams where dose is matched to indication; i.e. head); or iterative reconstruction technique. Coronal and sagittal reformatted images were created and reviewed. COMPARISON: CT ABD AND PELVIS 2013-12-05 21:04. Clip no correlation FINDINGS: Artifacts: Motion artifact degrades image quality. Lower thorax: Heart size is normal. There are coronary artery calcifications. There is a hiatal hernia. Gallbladder is distended. Common duct is unremarkable. ABDOMEN: Liver: unremarkable Gallbladder and bile ducts: unremarkable Pancreas: Pancreas is atrophic. Spleen: unremarkable Adrenals: There is bilateral adrenal thickening. Kidneys and ureters: There continues to be bilateral hydroureteronephrosis. There is mild bilateral parenchymal loss. Dilated ureters can be traced to the bladder. There is mild mucosal thickening greatest in the right renal pelvis and right ureter. There is proximal right periureteric stranding. Stomach and bowel: Stomach is partially distended. Rotation is normal. There is no small bowel obstruction. Ileocecal region is unremarkable. Appendix and terminal ileum are unremarkable. Colon is incompletely distended which limits evaluation. Motion and streak limited evaluation of the transverse colon. There is diverticulosis. Appendix: See stomach and bowel PELVIS: Bladder: Bladder is almost empty. There are bladder diverticula. Reproductive: Uterus is absent. There is 5.4 x 3.7 cm right adnexal cyst. There is prominence of the left adnexa with small cyst. ABDOMEN and PELVIS: Intraperitoneal space: There is no free air or free fluid. Bones/joints: Bony structures are osteopenic.There are degenerative changes in the osseus structures. Soft tissues: unremarkable Vasculature: There are vascular calcifications. Lymph nodes: There is no pathologic adenopathy. IMPRESSION: Persistent bilateral hydroureteronephrosis, prominence of renal pelvic and ureteral mucosa raises the possibility of infection; empty bladder with bladder diverticula; hysterectomy; cystic adnexal masses right greater than left, similar finding seen on the prior study; diverticulosis without CT findings of diverticulitis Additional findings as described above.
[2017-05-09 01:44] LABS: ALB/GLOB RATIO 1.1 (1.0-2.1); BILIRUBIN,TOTAL 0.4 mg/dl (0.2-1.3); CALCIUM 9.4 mg/dL (8.4-10.2); TOTAL PROTEIN 7.9 G/DL (6.3-8.2)
[2017-05-09 01:57] LABS: POTASSIUM 5.8 MMOL/L (3.6-5.0)
[2017-05-09] MEDS ORDERED: Sod Polystyrene Sulf 15 gm/60 ml Susp PO ONE (02:11)
[2017-05-09] MEDS ORDERED: Sodium Bicarbonate 7.5% (0.9 MEQ/ML) 50ML INJ IV ONE (02:11)
[2017-05-09] MEDS ORDERED: Sod Polystyrene Sulf 15 gm/60 ml Susp ONE (02:22)
[2017-05-09] MEDS ORDERED: Sodium Chloride 0.9% 1,000 ML IV SCH (02:30)
[2017-05-09] MEDS ORDERED: Insulin Lispro (humaLOG) 100 Units/ml Inj SC SCH ×2 (02:45→07:30)
--- NOTE | 2017-05-09 02:49 | CP.PCM.CON ---
History of Present Illness - History of Present Illness History of Present Illness: CC: n/v, generalized malaise, decreased PO; reason for ICU -- severe acidosis, hyperkalemia HPI: This is a 76 y/o female with DM2, CKD4, persistent hydronephrosis, and depression who comes in after 2 weeks of depressive symptoms, decreased PO, and worsening weakness. She has been bedbound for 2 weeks and has been having n/v and been defecating/urinating in bed. Patient c/o generalized malaise, ( unmeasured) fever/chills. Denies CP/SOB. Patient was noted to have ?coffee ground appearing emesis en route to hospital. Patient states nothing makes her symptoms better. Of note, patient has not been taking her medications for DM2 or CKD for several weeks. ROS: 14 systems reviewed, negative other than HPI MHx: DM2, CKD4, persistent hydronephrosis, depression SHx: wrist surgery, ORIF (2017), hysterectomy in past Allergies: NKDA Medications: currently not taking Family Hx: Reviewed, no relevant findings Social Hx: Lives with son, no EtOH or Tobacco Surrogate: Son, info on chart Past Patient History - Infectious Disease Hx of Infectious Diseases: None - Past Medical History & Family History Past Medical History?: Yes - Past Social History Smoking Status: Never Smoked - CARDIAC Hx Hypercholesterolemia: Yes Hx Hypertension: Yes - PULMONARY Hx Chronic Obstructive Pulmonary Disease (COPD): Yes Hx Pneumonia: Yes - NEUROLOGICAL Hx Neurological Disorder: No - HEENT Hx HEENT Problems: Yes Other/Comment: uses eye glasses - RENAL Hx Chronic Kidney Disease: Yes - ENDOCRINE/METABOLIC Hx Endocrine Disorders: Yes Hx Diabetes Mellitus Type 2: Yes - HEMATOLOGICAL/ONCOLOGICAL Hx Human Immunodeficiency Virus (HIV): No - INTEGUMENTARY Hx Dermatological Problems: No - MUSCULOSKELETAL/RHEUMATOLOGICAL Hx Arthritis: Yes - GASTROINTESTINAL Hx Gastrointestinal Disorders: No - GENITOURINARY/GYNECOLOGICAL Hx Genitourinary Disorders: No - PSYCHIATRIC Hx Anxiety: Yes Hx Depression: Yes - SURGICAL HISTORY Hx Tonsillectomy: Yes - ANESTHESIA Hx Anesthesia: No Hx Anesthesia Reactions: No Hx Malignant Hyperthermia: No Meds Allergies/Adverse Reactions: Allergies Allergy/AdvReac Type Severity Reaction Status Date / Time No Known Allergies Allergy Verified 05/08/17 21:15 - Medications Medications: Current Medications Sodium Bicarbonate 150 meq/ (Dextrose) 1,150 mls @ 50 mls/hr IV .Q23H [facility] Stop: 05/10/17 02:24 Ceftriaxone Sodium 1 gm/ (Sodium Chloride) 100 mls @ 100 mls/hr IVPB DAILY [facility] PRN Reason: Protocol Sodium Chloride (Sodium Chloride 0.9%) 1,000 mls @ 50 mls/hr IV .Q20H [facility] Stop: 05/09/17 22:29 Insulin Human Lispro (Humalog) 0 units SC Q6H [place] PRN Reason: Protocol Metoprolol Tartrate (Lopressor) 12.5 mg PO Q12 [place] Ondansetron HCl (Zofran Inj) 4 mg IVP Q6H PRN PRN Reason: Nausea/Vomiting Pantoprazole Sodium (Protonix Inj) 40 mg IVP DAILY [place] Paroxetine HCl (Paxil) 20 mg PO DAILY [place] Sevelamer HCl (Renagel) 800 mg PO TID [facility] Physical Exam - Constitutional Appears: Unkempt, Chronically Ill - Head Exam Head Exam: ATRAUMATIC, NORMOCEPHALIC - Eye Exam Eye Exam: EOMI, PERRL - ENT Exam ENT Exam: Mucous Membranes Dry - Neck Exam Neck exam: Positive for: Full Rom - Respiratory Exam Respiratory Exam: Clear to Auscultation Bilateral, NORMAL BREATHING PATTERN - Cardiovascular Exam Cardiovascular Exam: REGULAR RHYTHM, +S1, +S2 - GI/Abdominal Exam GI & Abdominal Exam: Normal Bowel Sounds, Soft - Extremities Exam Extremities exam: Positive for: full ROM - Neurological Exam Neurological exam: Alert, CN II-XII Intact, Oriented x3 - Psychiatric Exam Psychiatric exam: Normal Affect, Normal Mood - Skin Skin Exam: Dry, Warm Results - Vital Signs Recent Vital Signs: Last Vital Signs Temp 98.1 F 05/09/17 02:26 Pulse 95 H 05/09/17 02:26 Resp 16 05/09/17 02:26 BP 112/66 05/09/17 02:26 Pulse Ox 97 05/09/17 02:43 - Labs Result Diagrams: 05/08/17 23:16 05/09/17 01:17 Labs: Laboratory Results - last 24 hr 05/08/17 05/08/17 05/08/17 21:44 23:16 23:16 WBC 18.7 H D RBC 5.20 Hgb 13.3 D Hct 41.3 MCV 79.5 L MCH 25.6 L MCHC 32.3 L RDW 14.8 H Plt Count 432 H D MPV 8.2 Neut % (Auto) 88.0 H Lymph % (Auto) 7.9 L [place] % (Auto) 3.9 Eos % (Auto) 0.0 Baso % (Auto) 0.2 Neut # 16.5 H Lymph # 1.5 [place] # 0.7 Eos # 0.0 Baso # 0.0 Neutrophils % (Manual) 86 H Lymphocytes % (Manual) 8 L Monocytes % (Manual) 6 Platelet Estimate Slightly increased H Large Platelets Present Anisocytosis (manual) Slight Ovalocytes Slight Stomatocytes Slight Acanthocytes (Spur) Slight PT INR APTT pO2 35 VBG pH 7.11 L* VBG pCO2 24 L VBG HCO3 8.3 VBG Total CO2 8.3 L VBG O2 Sat (Calc) 72.8 H VBG Base Excess -20.3 L VBG Potassium 7.0 H* Sodium 120.0 L* 122 L Chloride 91.0 L 96 L Glucose 350 H Lactate 1.8 FiO2 21.0 Crit Value Called To Iwona cuellar Crit Value Called By Ashok Crit Value Read Back Y Blood Gas Notified Time 2251 Potassium 7.4 H* D Carbon Dioxide 6 L* D Anion Gap 27 H BUN 149 H* D Creatinine 6.7 H Est GFR ( Amer) 7 Est GFR (Non-Af Amer) 6 Random Glucose 310 H Calcium 9.7 Total Bilirubin 0.9 AST 45 H D ALT < 6 L D Alkaline Phosphatase 177 H Troponin I 0.1030 Total Protein 9.0 H Albumin 4.6 Globulin 4.4 H Albumin/Globulin Ratio 1.0 Venous Blood Potassium 7.0 H* 05/08/17 05/09/17 23:16 01:17 WBC RBC Hgb Hct MCV MCH MCHC RDW Plt Count MPV Neut % (Auto) Lymph % (Auto) [place] % (Auto) Eos % (Auto) Baso % (Auto) Neut # Lymph # [place] # Eos # Baso # Neutrophils % (Manual) Lymphocytes % (Manual) Monocytes % (Manual) Platelet Estimate Large Platelets Anisocytosis (manual) Ovalocytes Stomatocytes Acanthocytes (Spur) PT 11.7 INR 1.0 APTT 32.4 pO2 VBG pH VBG pCO2 VBG HCO3 VBG Total CO2 VBG O2 Sat (Calc) VBG Base Excess VBG Potassium Sodium 127 L Chloride 102 Glucose Lactate FiO2 Crit Value Called To Crit Value Called By Crit Value Read Back Blood Gas Notified Time Potassium 5.8 H Carbon Dioxide 7 L* Anion Gap 24 H BUN 145 H* Creatinine 6.2 H Est GFR ( Amer) 8 Est GFR (Non-Af Amer) 7 Random Glucose 214 H Calcium 9.4 Total Bilirubin 0.4 AST 22 ALT 20 Alkaline Phosphatase 153 H Troponin I Total Protein 7.9 Albumin 4.1 Globulin 3.9 Albumin/Globulin Ratio 1.1 Venous Blood Potassium - EKG Data EKG Interpreted by: Myself EKG shows normal: Sinus rhythm Rate: Normal - EKG Data EKG comments: no peaked T waves noted, nonspec ST changes - Imaging and Cardiology Chest x-ray Status: Image reviewed by me (unremarkable) CT scan - abdomen Status: Image reviewed by me (b/l hydro, diverticulosis, cystic adnexal mass), Report reviewed by me Assessment & Plan (1) Dehydration Assessment and Plan: 76 y/o female with multiple medical conditions comes in with severe acidosis in setting of AoCRI due to n/v/d, UTI, and also with severe depression. 1) AoC Kidney injury, hydro, acidosis, volume depletion -Will put on 50 cc/hr IV bicarb in D5, and 50 cc/hr IV NS to start -Insert Adams -Renal consult in AM 2) UTI -- will start on ceftriaxone IV daily; received a dose of zosyn in ER 3) DM2 -- SSI, accucheck q6h while NPO 4) ?Coffee ground emesis -- cont IV protonix for now, keep NPO till morning and reassess 5) Depression -- Psych consult entered 6) DVT PPx -- SCDs Status: Acute (2) UTI (urinary tract infection) Status: Acute (3) Uncontrolled diabetes mellitus Status: Acute (4) Chronic kidney disease (CKD), stage IV (severe) Status: Chronic (5) Depression Status: Chronic
[2017-05-09] MEDS: Sodium Bicarbonate 8.4% 150 MEQ in Dextrose 5% In Water 1,000 ML IV SCH (03:55)
--- NOTE | 2017-05-09 05:56 | CP.PCM.HP ---
<Lary Denis - Last Filed: 05/09/17 06:06> History of Present Illness - History of Present Illness History of Present Illness: 76yo F with PMHx uncontrolled IDDM, HTN, CKD4, depression admitted admitted for acidosis. Has had multiple admissions in the past. Not compliant with medications. Stopped taking medications 1 week after last hospitalization/ED visit 03/25/17. Last admission 01/14/17 in which pt refused group home or other rehab services. Pt states she last took insulin 3 months ago. Denies any chest pain, SOB, dyspnea, cough, abdominal pain, hematuria, dysuria, hematochezia, melena, myalgias, SI/HI. Pt continent of urine and BM, but states diapers used as pt does not feel like using toilet. Social hx significant for spouse passing away this year and adult protective services being involved in pt case. Accompanied by son today. per EMS, coffee ground emesis PMHx: uncontrolled DM, HTN, CKD Stage 4, depression, Hydronephrosis, resistant Klebsiella pneumoniae UTI, and c diff PSHx: L wrist ORIF Allergies: NKDA SHx: lives w family Home Meds: -Aspirin [Ecotrin] 81 mg PO DAILY -Atorvastatin [Lipitor] 40 mg PO DAILY -Glipizide [Glipizide ER] 5 mg PO -Detemir [Levemir] 20 units SC HS -Metoprolol 12.5 mg PO Q12 -Multivitamin 1 tab PO DAILY -Paroxetine [Paxil] 20 mg PO DAILY -Repaglinide [Prandin] 2 mg PO TIDWM -Valsartan [Diovan] 80 mg PO DAILY -Lispro 10u before meals -Renagel 800mg TID PMD: Dr Boswell ED course: CBC, BMP, ABG, PT/PTT Kayexlate 15mg Sodium Bicarb 1amp reg insulin 8.6u IV NS IV 1L protonix 40 IV Zosyn pt will get pysch consult as an inpt for depression. CT abd/pelvis CXR EKG psych c/s blood/urine cx FOBT UA Present on Admission - Present on Admission Any Indicators Present on Admission: Yes History of Uncontrolled Diabetes: Yes Review of Systems - Review of Systems All systems: reviewed and no additional remarkable complaints except - Constitutional Constitutional: Fatigue Past Patient History - Infectious Disease Hx of Infectious Diseases: None - Past Medical History & Family History Past Medical History?: Yes - Past Social History Smoking Status: Never Smoked - CARDIAC Hx Cardiac Disorders: Yes - PULMONARY Hx Chronic Obstructive Pulmonary Disease (COPD): Yes Hx Pneumonia: Yes - NEUROLOGICAL Hx Neurological Disorder: No - HEENT Hx HEENT Problems: Yes - RENAL Hx Chronic Kidney Disease: Yes - ENDOCRINE/METABOLIC Hx Endocrine Disorders: Yes - HEMATOLOGICAL/ONCOLOGICAL Hx Human Immunodeficiency Virus (HIV): No - INTEGUMENTARY Hx Dermatological Problems: No - MUSCULOSKELETAL/RHEUMATOLOGICAL Hx Arthritis: Yes - GASTROINTESTINAL Hx Gastrointestinal Disorders: No - GENITOURINARY/GYNECOLOGICAL Hx Genitourinary Disorders: No - PSYCHIATRIC Hx Anxiety: Yes Hx Depression: Yes - SURGICAL HISTORY Hx Tonsillectomy: Yes - ANESTHESIA Hx Anesthesia: No Hx Anesthesia Reactions: No Hx Malignant Hyperthermia: No Meds Allergies/Adverse Reactions: Allergies Allergy/AdvReac Type Severity Reaction Status Date / Time No Known Allergies Allergy Verified 05/08/17 21:15 Physical Exam - Constitutional Appears: Non-toxic, No Acute Distress - Head Exam Head Exam: ATRAUMATIC, NORMOCEPHALIC - Eye Exam Eye Exam: Normal appearance - ENT Exam ENT Exam: Mucous Membranes Moist - Neck Exam Neck exam: Positive for: Full Rom, Normal Inspection - Respiratory Exam Respiratory Exam: Clear to Auscultation Bilateral, NORMAL BREATHING PATTERN - Cardiovascular Exam Cardiovascular Exam: REGULAR RHYTHM, Systolic Murmur - GI/Abdominal Exam GI & Abdominal Exam: Normal Bowel Sounds, Soft - Extremities Exam Extremities exam: Positive for: normal inspection. Negative for: calf tenderness - Neurological Exam Neurological exam: Alert, Oriented x3 - Psychiatric Exam Additional comments: denies SI/HI - Skin Skin Exam: Dry, Warm Additional comments: sacrum erythema Results - Vital Signs Recent Vital Signs: Last Vital Signs Temp 98.1 F 05/09/17 02:26 Pulse 95 H 05/09/17 02:26 Resp 16 05/09/17 02:26 BP 112/66 05/09/17 02:26 Pulse Ox 97 05/09/17 02:46 - Labs Result Diagrams: 05/08/17 23:16 05/09/17 01:17 Labs: Laboratory Results - last 24 hr 05/08/17 05/08/17 05/08/17 21:44 23:16 23:16 WBC 18.7 H D RBC 5.20 Hgb 13.3 D Hct 41.3 MCV 79.5 L MCH 25.6 L MCHC 32.3 L RDW 14.8 H Plt Count 432 H D MPV 8.2 Neut % (Auto) 88.0 H Lymph % (Auto) 7.9 L [place] % (Auto) 3.9 Eos % (Auto) 0.0 Baso % (Auto) 0.2 Neut # 16.5 H Lymph # 1.5 [place] # 0.7 Eos # 0.0 Baso # 0.0 Neutrophils % (Manual) 86 H Lymphocytes % (Manual) 8 L Monocytes % (Manual) 6 Platelet Estimate Slightly increased H Large Platelets Present Anisocytosis (manual) Slight Ovalocytes Slight Stomatocytes Slight Acanthocytes (Spur) Slight PT INR APTT pO2 35 VBG pH 7.11 L* VBG pCO2 24 L VBG HCO3 8.3 VBG Total CO2 8.3 L VBG O2 Sat (Calc) 72.8 H VBG Base Excess -20.3 L VBG Potassium 7.0 H* Sodium 120.0 L* 122 L Chloride 91.0 L 96 L Glucose 350 H Lactate 1.8 FiO2 21.0 Crit Value Called To Iwona cuellar Crit Value Called By Ashok Crit Value Read Back Y Blood Gas Notified Time 2251 Potassium 7.4 H* D Carbon Dioxide 6 L* D Anion Gap 27 H BUN 149 H* D Creatinine 6.7 H Est GFR ( Amer) 7 Est GFR (Non-Af Amer) 6 Random Glucose 310 H Calcium 9.7 Total Bilirubin 0.9 AST 45 H D ALT < 6 L D Alkaline Phosphatase 177 H Troponin I 0.1030 Total Protein 9.0 H Albumin 4.6 Globulin 4.4 H Albumin/Globulin Ratio 1.0 Venous Blood Potassium 7.0 H* 05/08/17 05/09/17 23:16 01:17 WBC RBC Hgb Hct MCV MCH MCHC RDW Plt Count MPV Neut % (Auto) Lymph % (Auto) [place] % (Auto) Eos % (Auto) Baso % (Auto) Neut # Lymph # [place] # Eos # Baso # Neutrophils % (Manual) Lymphocytes % (Manual) Monocytes % (Manual) Platelet Estimate Large Platelets Anisocytosis (manual) Ovalocytes Stomatocytes Acanthocytes (Spur) PT 11.7 INR 1.0 APTT 32.4 pO2 VBG pH VBG pCO2 VBG HCO3 VBG Total CO2 VBG O2 Sat (Calc) VBG Base Excess VBG Potassium Sodium 127 L Chloride 102 Glucose Lactate FiO2 Crit Value Called To Crit Value Called By Crit Value Read Back Blood Gas Notified Time Potassium 5.8 H Carbon Dioxide 7 L* Anion Gap 24 H BUN 145 H* Creatinine 6.2 H Est GFR ( Amer) 8 Est GFR (Non-Af Amer) 7 Random Glucose 214 H Calcium 9.4 Total Bilirubin 0.4 AST 22 ALT 20 Alkaline Phosphatase 153 H Troponin I Total Protein 7.9 Albumin 4.1 Globulin 3.9 Albumin/Globulin Ratio 1.1 Venous Blood Potassium Assessment & Plan - Assessment and Plan (Free Text) Assessment: 76yo F with PMHx uncontrolled IDDM, HTN, CKD4, depression admitted admitted for acidosis. acute on CKD -VBG pCO2/pO2/pH 24/35/7.11 -AG 24 -BUN/Cr 145/6.2 -monitor labs -c/w renegal -nephro c/s DM -Uncontrolled -held Glipizide SR 5mg PO Daily -held Prandin 20mg PO TIDWM -held Levemir 20mg SC HS -held Lispro 10mg SC BID -Lispro Sliding Scale q6hr -accucheck q6 UTI -leukocytosis, lactate WNL -CT abd/pelvis: renal pelvic and ureter prominence -Zosyn -FU cx hyperkalemia -improved -insulin, IVF hyponatremia -MIVF -NPO for now given coffe ground emesis, encourage PO intake once on DM diet coffee ground emesis -monitor CBC, FOBT HTN -Metoprolol 12.5mg PO BID -Valsartan 80mg PO Daily Depression -Paxil 20mg PO Daily -psych c/s sacrum erythema -wound care systolic murmur -ECHO 12/21/15 LVEF 70%, trivial AR,MR -consider repeat ECHO DVT Prophylaxis -SCDs for now given coffee ground emesis Decision To Admit - Pt Status Changed To: Hospital Disposition Of: Inpatient - Admit Certification Admit to Inpatient:: After my assessment, the patient will require hospitalization for at least two midnights. This is because of the severity of symptoms shown, intensity of services needed, and/or the medical risk in this patient being treated as an outpatient. - . Bed Request Type: Intensive Care Admitting Physician: Jose Juan Boswell <Jose Juan Boswell - Last Filed: 05/10/17 07:06> Results - Vital Signs Recent Vital Signs: Last Vital Signs Temp 98.9 F 05/10/17 04:20 Pulse 84 05/10/17 05:34 Resp 17 05/10/17 05:34 BP 102/68 05/10/17 04:20 Pulse Ox 97 05/10/17 05:34 - Labs Result Diagrams: 05/10/17 04:45 05/10/17 04:45 Labs: Laboratory Results - last 24 hr 05/08/17 05/09/17 05/09/17 21:57 03:02 04:20 WBC RBC Hgb Hct MCV MCH MCHC RDW Plt Count MPV Neut % (Auto) Lymph % (Auto) [place] % (Auto) Eos % (Auto) Baso % (Auto) Neut # Lymph # [place] # Eos # Baso # Sodium 128 L Potassium 5.6 H Chloride 104 Carbon Dioxide < 5 L* D Anion Gap 25 H BUN 143 H* Creatinine 5.8 H Est GFR ( Amer) 9 Est GFR (Non-Af Amer) 7 POC Glucose (mg/dL) 301 H 205 H Random Glucose 220 H Calcium 9.2 Phosphorus 7.8 H Magnesium 2.8 H Total Bilirubin AST ALT Alkaline Phosphatase Total Protein Albumin Globulin Albumin/Globulin Ratio Blood Type Antibody Screen BBK History Checked 05/09/17 05/09/17 05/09/17 06:00 08:00 09:02 WBC 19.6 H RBC 4.90 Hgb 12.6 Hct 38.6 MCV 78.8 L MCH 25.7 L MCHC 32.6 L RDW 14.9 H Plt Count 384 MPV Neut % (Auto) Lymph % (Auto) [place] % (Auto) Eos % (Auto) Baso % (Auto) Neut # Lymph # [place] # Eos # Baso # Sodium Potassium Chloride Carbon Dioxide Anion Gap BUN Creatinine Est GFR ( Amer) Est GFR (Non-Af Amer) POC Glucose (mg/dL) 280 H Random Glucose Calcium Phosphorus Magnesium Total Bilirubin AST ALT Alkaline Phosphatase Total Protein Albumin Globulin Albumin/Globulin Ratio Blood Type A POSITIVE Antibody Screen Negative BBK History Checked Patient has bt 05/09/17 05/09/17 05/09/17 11:30 16:00 16:00 WBC 16.3 H RBC 4.68 Hgb 12.0 Hct 37.5 MCV 80.1 L MCH 25.6 L MCHC 32.0 L RDW 15.1 H Plt Count 311 MPV 7.5 Neut % (Auto) 79.2 H Lymph % (Auto) 13.0 L [place] % (Auto) 7.3 Eos % (Auto) 0.3 Baso % (Auto) 0.2 Neut # 12.9 H Lymph # 2.1 [place] # 1.2 H Eos # 0.0 Baso # 0.0 Sodium 129 L Potassium 5.0 Chloride 101 Carbon Dioxide 9 L* D Anion Gap 24 H BUN 136 H* Creatinine 5.3 H Est GFR ( Amer) 10 Est GFR (Non-Af Amer) 8 POC Glucose (mg/dL) 285 H Random Glucose 282 H Calcium 8.6 Phosphorus 7.0 H Magnesium 2.6 H Total Bilirubin 0.3 AST 23 ALT 22 Alkaline Phosphatase 130 H Total Protein 6.8 Albumin 3.5 Globulin 3.3 Albumin/Globulin Ratio 1.1 Blood Type Antibody Screen BBK History Checked 05/09/17 05/09/17 05/10/17 16:39 21:18 02:54 WBC RBC Hgb Hct MCV MCH MCHC RDW Plt Count MPV Neut % (Auto) Lymph % (Auto) [place] % (Auto) Eos % (Auto) Baso % (Auto) Neut # Lymph # [place] # Eos # Baso # Sodium Potassium Chloride Carbon Dioxide Anion Gap BUN Creatinine Est GFR ( Amer) Est GFR (Non-Af Amer) POC Glucose (mg/dL) 318 H 309 H 149 H Random Glucose Calcium Phosphorus Magnesium Total Bilirubin AST ALT Alkaline Phosphatase Total Protein Albumin Globulin Albumin/Globulin Ratio Blood Type Antibody Screen BBK History Checked 05/10/17 05/10/17 05/10/17 04:45 04:45 05:44 WBC 13.3 H RBC 4.33 Hgb 11.0 L Hct 33.9 L MCV 78.3 L MCH 25.5 L MCHC 32.5 L RDW 14.8 H Plt Count 303 MPV Neut % (Auto) Lymph % (Auto) [place] % (Auto) Eos % (Auto) Baso % (Auto) Neut # Lymph # [place] # Eos # Baso # Sodium 128 L Potassium 4.5 Chloride 99 Carbon Dioxide 16 L Anion Gap 18 BUN 122 H* Creatinine 4.9 H Est GFR ( Amer) 10 Est GFR (Non-Af Amer) 9 POC Glucose (mg/dL) 218 H Random Glucose 186 H Calcium 8.5 Phosphorus Magnesium Total Bilirubin 0.3 AST 20 ALT 28 Alkaline Phosphatase 126 Total Protein 6.6 Albumin 3.3 L Globulin 3.3 Albumin/Globulin Ratio 1.0 Blood Type Antibody Screen BBK History Checked Attending/Attestation - Attestation I have personally seen and examined this patient.: Yes I have fully participated in the care of the patient.: Yes I have reviewed all pertinent clinical information: Yes
--- NOTE | 2017-05-09 07:01 | RAD ---
HISTORY: Sepsis Patient COMPARISON: 01/19/2017 FINDINGS: LUNGS: No active pulmonary disease. PLEURA: No significant pleural effusion identified, no pneumothorax apparent. CARDIOVASCULAR: Normal. OSSEOUS STRUCTURES: No significant abnormalities. VISUALIZED UPPER ABDOMEN: Normal. OTHER FINDINGS: None. IMPRESSION: No active disease. No significant interval change compared to the prior examination(s). Please note: No preliminary interpretation of this examination rendered by emergency department personnel (Physician and/or PA declined to provide preliminary report of their findings/ observations).
[2017-05-09 07:18] LABS: HEMATOCRIT 38.6 % (34.0-47.0); MEAN CELL VOLUME 78.8 fl (81.0-99.0); MEAN CORPUSCULAR HEMOGLOBIN 25.7 pg (27.0-31.0); MEAN CORPUSCULAR HGB CONC 32.6 g/dL (33.0-37.0); RED CELL DISTRIBUTION WIDTH 14.9 % (11.5-14.5); WHITE BLOOD COUNT 19.6 K/uL (4.8-10.8)
[2017-05-09 07:27] LABS: CALCIUM 9.2 mg/dL (8.4-10.2); CHLORIDE 104 mmol/L (98-107); GFR AFRICAN-AMERICAN 9; GLUCOSE,RANDOM 220 mg/dL (65-105); MAGNESIUM 2.8 MG/DL (1.6-2.3); PHOSPHOROUS 7.8 mg/dl (2.5-4.5); SODIUM 128 mmol/l (132-148)
[2017-05-09 07:37] LABS: BLOOD UREA NITROGEN 143 mg/dl (7-17); CARBON DIOXIDE < 5 mmol/L (22-30); POTASSIUM 5.6 MMOL/L (3.6-5.0)
[2017-05-09] MEDS: cefTRIAXone IV 1 gm in Dextros 50 ML IVPB SCH (08:43)
[2017-05-09] MEDS ORDERED: Influenza Vaccine 18yr & older 0.5 ML/45 MCG SYR IM ONE (09:00)
[2017-05-09] MEDS ORDERED: Pneumococcal 23-Valent Vaccine IM ONE (09:00)
--- NOTE | 2017-05-09 10:18 | CP.PCM.PCO ---
<Osei Fierro - Last Filed: 05/09/17 10:43> Subjective - Physician Review All systems were reviewed & negative as marked: Yes Subjective (Free Text): Pt seen and examined at bedside this morning with attending. Discussed labs and findings with attending. Pt still confused. Assessment: 76yo F with PMHx uncontrolled IDDM, HTN, CKD4, depression, history of medicine noncompliance, admitted admitted for acidosis, acute on chronic kidney injury with UTI. Plan: 1) Acute on Chronic Kidney Injury: -VBG pCO2/pO2/pH: 24/35/7.11 -Anion Gap: 25 -GFR: 7 -BUN/Cr 05/09 am: 143/5.8 -monitor labs -nephrology consult, awaiting recommendations 2) IDDM -Uncontrolled -held Glipizide SR 5mg PO Daily -held Prandin 20mg PO TIDWM -held Levemir 20mg SC HS -held Lispro 10mg SC BID -Lispro Sliding Scale q6hr -accucheck q6 3) UTI -leukocytosis, lactate WNL -CT abd/pelvis: renal pelvic and ureter prominence -Zosyn given in ED -IV Ceftriaxone QD -follow cultures 4) Hydronephrosis: Urology consult requested, will f/u recommendations 5) Hyperkalemia -improving -5.6 this morning down from 7.4 -insulin coverage scale -IVF 6) Hyponatremia -122 on presentation -128 this morning -likley secondary to advanced renal disease -MIVF -repeat labs in the am -Urine lytes ordered 7) Coffee ground emesis -monitor CBC -FOBT ordered 8) HTN -Metoprolol 12.5mg PO BID -Valsartan 80mg PO Daily 9) Depression -Paxil 20mg PO Daily -[place] Psych consult pending 10) Sacral erythema -wound care consult 11) systolic murmur -ECHO 12/21/15 LVEF 70%, trivial AR,MR -consider repeat ECHO 12) DVT Prophylaxis -SCDs for now given coffee ground emesis - Review of Systems Systems not reviewed;Unavailable: Altered Mental Status <Min Woody - Last Filed: 05/11/17 06:39> Attending/Attestation - Attestation I have personally seen and examined this patient.: Yes I have fully participated in the care of the patient.: Yes I have reviewed all pertinent clinical information: Yes
--- NOTE | 2017-05-09 10:51 | CARD ---
APPROVED REPORT EKG Measurement Heart [id number] <Conclusion> Normal sinus rhythm Left anterior fascicular block ST & T wave abnormality, consider lateral ischemia Abnormal ECG
--- NOTE | 2017-05-09 12:30 | CP.PCM.CON ---
History of Present Illness - History of Present Illness History of Present Illness: 76yo F with PMHx uncontrolled IDDM, HTN, CKD4, depression admitted admitted for acidosis. Has had multiple admissions in the past. Not compliant with medications. Stopped taking medications 1 week after last hospitalization/ED visit 03/25/17. Last admission 01/14/17 in which pt refused long term or other rehab services. Pt continent of urine and BM, but states diapers used as pt does not feel like using toilet. hx significant for spouse passing away this year and adult protective services being involved in pt case. PT currently lives with her son son patient does not seem any problems with this level of self neglect and becomes irritated when attempting to discuss it as a symptom of depression. stated she is not interested in any psychiatric help reported she spends her day at the [employer] and volunteer and have many friends " pt refuses to consider therapy or to see a psychiatry. it is not clear how pt can care for self and if her information about her social interactions are accurate. patient denied any changes in sleep or appetite deneid psychotic symptoms denied S/H I patient on evaluation is oriented to person partially to place and to time stating we are in april but the year is 1974 Past Patient History - Infectious Disease Hx of Infectious Diseases: None - Past Medical History & Family History Past Medical History?: Yes - Past Social History Smoking Status: Never Smoked - CARDIAC Hx Cardiac Disorders: Yes - PULMONARY Hx Chronic Obstructive Pulmonary Disease (COPD): Yes Hx Pneumonia: Yes - NEUROLOGICAL Hx Neurological Disorder: No - HEENT Hx HEENT Problems: Yes - RENAL Hx Chronic Kidney Disease: Yes - ENDOCRINE/METABOLIC Hx Endocrine Disorders: Yes - HEMATOLOGICAL/ONCOLOGICAL Hx Human Immunodeficiency Virus (HIV): No - INTEGUMENTARY Hx Dermatological Problems: No - MUSCULOSKELETAL/RHEUMATOLOGICAL Hx Arthritis: Yes - GASTROINTESTINAL Hx Gastrointestinal Disorders: No - GENITOURINARY/GYNECOLOGICAL Hx Genitourinary Disorders: No - PSYCHIATRIC Hx Anxiety: Yes Hx Depression: Yes - SURGICAL HISTORY Hx Tonsillectomy: Yes - ANESTHESIA Hx Anesthesia: No Hx Anesthesia Reactions: No Hx Malignant Hyperthermia: No Meds Allergies/Adverse Reactions: Allergies Allergy/AdvReac Type Severity Reaction Status Date / Time No Known Allergies Allergy Verified 05/08/17 21:15 - Medications Medications: Current Medications Sodium Bicarbonate 150 meq/ (Dextrose) 1,150 mls @ 50 mls/hr IV .Q23H [facility] Stop: 05/10/17 02:24 Last Admin: 05/09/17 03:55 Dose: 50 mls/hr Ceftriaxone Sodium (Rocephin Iv 1 Gm Duplex) 50 mls @ 50 mls/hr IVPB DAILY [facility] PRN Reason: Protocol Last Admin: 05/09/17 08:43 Dose: 50 mls/hr Sodium Chloride (Sodium Chloride 0.9%) 1,000 mls @ 50 mls/hr IV .Q20H [facility] Stop: 05/09/17 22:29 Last Admin: 05/09/17 03:00 Dose: 50 mls/hr Insulin Human Lispro (Humalog) 0 units SC Q6H [facility] PRN Reason: Protocol Last Admin: 05/09/17 09:33 Dose: 4 u Metoprolol Tartrate (Lopressor) 12.5 mg PO Q12 [facility] Last Admin: 05/09/17 08:41 Dose: 12.5 mg Ondansetron HCl (Zofran Inj) 4 mg IVP Q6H [facility] PRN Reason: Nausea/Vomiting Pantoprazole Sodium (Protonix Inj) 40 mg IVP DAILY [facility] Last Admin: 05/09/17 08:43 Dose: 40 mg Paroxetine HCl (Paxil) 20 mg PO DAILY [facility] Last Admin: 05/09/17 08:43 Dose: 20 mg Sevelamer HCl (Renagel) 800 mg PO TID [facility] Last Admin: 05/09/17 08:43 Dose: 800 mg Physical Exam - Psychiatric Exam Additional comments: patient on evaluation in bed partially cooperative stating she does not need any psychiatric help, appears unkempt, speech soft and slow, no abnormal movements, mood reported fine affect constricted and sad when talking about her late , thought form circumstantial denied perceptual disturbances, non elicited denied suicidal or haomicidal ideations, alert awake oriented to person, partially to place knowing she is in hospital did not mention the name oriented to month and time of year but not to day or year Results - Vital Signs Recent Vital Signs: Last Vital Signs Temp 96.8 F L 05/09/17 04:30 Pulse 95 H 05/09/17 09:00 Resp 18 05/09/17 09:00 BP 134/74 05/09/17 09:00 Pulse Ox 99 05/09/17 09:00 - Labs Result Diagrams: 05/09/17 06:00 05/09/17 04:20 Labs: Laboratory Results - last 24 hr 05/08/17 05/08/17 05/08/17 21:44 21:57 23:16 WBC 18.7 H D RBC 5.20 Hgb 13.3 D Hct 41.3 MCV 79.5 L MCH 25.6 L MCHC 32.3 L RDW 14.8 H Plt Count 432 H D MPV 8.2 Neut % (Auto) 88.0 H Lymph % (Auto) 7.9 L [place] % (Auto) 3.9 Eos % (Auto) 0.0 Baso % (Auto) 0.2 Neut # 16.5 H Lymph # 1.5 [place] # 0.7 Eos # 0.0 Baso # 0.0 Neutrophils % (Manual) 86 H Lymphocytes % (Manual) 8 L Monocytes % (Manual) 6 Platelet Estimate Slightly increased H Large Platelets Present Anisocytosis (manual) Slight Ovalocytes Slight Stomatocytes Slight Acanthocytes (Spur) Slight PT INR APTT pO2 35 VBG pH 7.11 L* VBG pCO2 24 L VBG HCO3 8.3 VBG Total CO2 8.3 L VBG O2 Sat (Calc) 72.8 H VBG Base Excess -20.3 L VBG Potassium 7.0 H* Sodium 120.0 L* Chloride 91.0 L Glucose 350 H Lactate 1.8 FiO2 21.0 Crit Value Called To Iwona cuellar Crit Value Called By Ashok Crit Value Read Back Y Blood Gas Notified Time 2251 Potassium Carbon Dioxide Anion Gap BUN Creatinine Est GFR ( Amer) Est GFR (Non-Af Amer) POC Glucose (mg/dL) 301 H Random Glucose Calcium Phosphorus Magnesium Total Bilirubin AST ALT Alkaline Phosphatase Troponin I Total Protein Albumin Globulin Albumin/Globulin Ratio Venous Blood Potassium 7.0 H* Blood Type Antibody Screen BBK History Checked 05/08/17 05/08/17 05/09/17 23:16 23:16 01:17 WBC RBC Hgb Hct MCV MCH MCHC RDW Plt Count MPV Neut % (Auto) Lymph % (Auto) [place] % (Auto) Eos % (Auto) Baso % (Auto) Neut # Lymph # [place] # Eos # Baso # Neutrophils % (Manual) Lymphocytes % (Manual) Monocytes % (Manual) Platelet Estimate Large Platelets Anisocytosis (manual) Ovalocytes Stomatocytes Acanthocytes (Spur) PT 11.7 INR 1.0 APTT 32.4 pO2 VBG pH VBG pCO2 VBG HCO3 VBG Total CO2 VBG O2 Sat (Calc) VBG Base Excess VBG Potassium Sodium 122 L 127 L Chloride 96 L 102 Glucose Lactate FiO2 Crit Value Called To Crit Value Called By Crit Value Read Back Blood Gas Notified Time Potassium 7.4 H* D 5.8 H Carbon Dioxide 6 L* D 7 L* Anion Gap 27 H 24 H BUN 149 H* D 145 H* Creatinine 6.7 H 6.2 H Est GFR ( Amer) 7 8 Est GFR (Non-Af Amer) 6 7 POC Glucose (mg/dL) Random Glucose 310 H 214 H Calcium 9.7 9.4 Phosphorus Magnesium Total Bilirubin 0.9 0.4 AST 45 H D 22 ALT < 6 L D 20 Alkaline Phosphatase 177 H 153 H Troponin I 0.1030 Total Protein 9.0 H 7.9 Albumin 4.6 4.1 Globulin 4.4 H 3.9 Albumin/Globulin Ratio 1.0 1.1 Venous Blood Potassium Blood Type Antibody Screen BBK History Checked 05/09/17 05/09/17 05/09/17 03:02 04:20 06:00 WBC 19.6 H RBC 4.90 Hgb 12.6 Hct 38.6 MCV 78.8 L MCH 25.7 L MCHC 32.6 L RDW 14.9 H Plt Count 384 MPV Neut % (Auto) Lymph % (Auto) [place] % (Auto) Eos % (Auto) Baso % (Auto) Neut # Lymph # [place] # Eos # Baso # Neutrophils % (Manual) Lymphocytes % (Manual) Monocytes % (Manual) Platelet Estimate Large Platelets Anisocytosis (manual) Ovalocytes Stomatocytes Acanthocytes (Spur) PT INR APTT pO2 VBG pH VBG pCO2 VBG HCO3 VBG Total CO2 VBG O2 Sat (Calc) VBG Base Excess VBG Potassium Sodium 128 L Chloride 104 Glucose Lactate FiO2 Crit Value Called To Crit Value Called By Crit Value Read Back Blood Gas Notified Time Potassium 5.6 H Carbon Dioxide < 5 L* D Anion Gap 25 H BUN 143 H* Creatinine 5.8 H Est GFR ( Amer) 9 Est GFR (Non-Af Amer) 7 POC Glucose (mg/dL) 205 H Random Glucose 220 H Calcium 9.2 Phosphorus 7.8 H Magnesium 2.8 H Total Bilirubin AST ALT Alkaline Phosphatase Troponin I Total Protein Albumin Globulin Albumin/Globulin Ratio Venous Blood Potassium Blood Type Antibody Screen BBK History Checked 05/09/17 05/09/17 05/09/17 08:00 09:02 11:30 WBC RBC Hgb Hct MCV MCH MCHC RDW Plt Count MPV Neut % (Auto) Lymph % (Auto) [place] % (Auto) Eos % (Auto) Baso % (Auto) Neut # Lymph # [place] # Eos # Baso # Neutrophils % (Manual) Lymphocytes % (Manual) Monocytes % (Manual) Platelet Estimate Large Platelets Anisocytosis (manual) Ovalocytes Stomatocytes Acanthocytes (Spur) PT INR APTT pO2 VBG pH VBG pCO2 VBG HCO3 VBG Total CO2 VBG O2 Sat (Calc) VBG Base Excess VBG Potassium Sodium Chloride Glucose Lactate FiO2 Crit Value Called To Crit Value Called By Crit Value Read Back Blood Gas Notified Time Potassium Carbon Dioxide Anion Gap BUN Creatinine Est GFR ( Amer) Est GFR (Non-Af Amer) POC Glucose (mg/dL) 280 H 285 H Random Glucose Calcium Phosphorus Magnesium Total Bilirubin AST ALT Alkaline Phosphatase Troponin I Total Protein Albumin Globulin Albumin/Globulin Ratio Venous Blood Potassium Blood Type A POSITIVE Antibody Screen Negative BBK History Checked Patient has bt Assessment & Plan - Assessment and Plan (Free Text) Assessment: depression 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
[2017-05-09 16:04] LABS: BASO % 0.2 % (0.0-2.0); EOS % 0.3 % (0.0-4.0); HEMATOCRIT 37.5 % (34.0-47.0); LYMPH # 2.1 K/uL (1.0-4.3); MEAN CELL VOLUME 80.1 fl (81.0-99.0); MEAN CORPUSCULAR HEMOGLOBIN 25.6 pg (27.0-31.0); MEAN PLATELET VOLUME 7.5 fl (7.2-11.7); MONO # 1.2 K/uL (0.0-0.8); MONO % 7.3 % (0.0-10.0); NEUT # 12.9 K/uL (1.8-7.0); NEUT % 79.2 % (50.0-75.0); RED CELL DISTRIBUTION WIDTH 15.1 % (11.5-14.5); WHITE BLOOD COUNT 16.3 K/uL (4.8-10.8)
[2017-05-09 16:32] LABS: ALB/GLOB RATIO 1.1 (1.0-2.1); BILIRUBIN,TOTAL 0.3 mg/dl (0.2-1.3); CALCIUM 8.6 mg/dL (8.4-10.2); MAGNESIUM 2.6 MG/DL (1.6-2.3); TOTAL PROTEIN 6.8 G/DL (6.3-8.2)
[2017-05-09] MEDS: Insulin Lispro (humaLOG) 100 Units/ml Inj SC SCH ×2 (17:09→21:30)
--- NOTE | 2017-05-09 22:36 | CON ---
DATE: 05/09/2017 HISTORY OF PRESENT ILLNESS: This is a 76-year-old female patient, who I was called to evaluate because of CT findings of bilateral hydroureteronephrosis. The patient currently is suffering of some level of renal failure. She has an elevated BUN and creatinine; the creatinine recently was 5.8, BUN was also elevated. The patient is being seen currently by a classroom aide. At this time, in the evaluation of the CAT scan, it appears that the ureters are dilated up to the point of the area of the ureterovesical junction on both sides, but does not to appear to be any mass effect in the bladder. It could be from J hooking, but that we cannot clearly determine on the x-rays. The patient has no acute pain at this time; however, she does have this condition of the chronic, perhaps, obstruction. PLAN: I discussed with her the possibility to attempt to do a cystoscopy, identify the ureteral orifices and see if there is any visual reason for the obstruction and perhaps the installation of bilateral ureteral stents, to be able to decompress the kidneys and see if that will improve her renal function overall. That being said, then I will try to schedule this patient as soon as possible in the operating room for this procedure. Irlanda Valentine MD
[2017-05-10] MEDS: Sodium Bicarbonate 8.4% 150 MEQ in Dextrose 5% In Water 1,000 ML IV SCH (01:30)
[2017-05-10 05:23] LABS: BILIRUBIN,TOTAL 0.3 mg/dl (0.2-1.3); CALCIUM 8.5 mg/dL (8.4-10.2); POTASSIUM 4.5 MMOL/L (3.6-5.0); TOTAL PROTEIN 6.6 G/DL (6.3-8.2)
[2017-05-10 05:29] LABS: HEMATOCRIT 33.9 % (34.0-47.0); MEAN CELL VOLUME 78.3 fl (81.0-99.0); MEAN CORPUSCULAR HEMOGLOBIN 25.5 pg (27.0-31.0); MEAN CORPUSCULAR HGB CONC 32.5 g/dL (33.0-37.0); RED CELL DISTRIBUTION WIDTH 14.8 % (11.5-14.5); WHITE BLOOD COUNT 13.3 K/uL (4.8-10.8)
[2017-05-10] MEDS: Insulin Lispro (humaLOG) 100 Units/ml Inj SC SCH ×2 (07:27→11:44)
--- NOTE | 2017-05-10 08:23 | PQF GENQUE ---
Dr. Boswell, Please specify location of pressure ulcer: if in agreement with the Nursing Assessment listed below: versus disagree: No pressure ulcer Body site(s) involved Laterality (bilateral, left, right) Other (please specify) Clinically unable to determine Unknown 2. Please specify POA status of each pressure ulcer: Not present on admission Present on admission Other (please specify) Clinically unable to determine Unknown 3. Please specify stage of each pressure ulcer (National Pressure Ulcer Advisory Panel definitions): Stage I: Intact skin with non-blanchable redness of a localized area Stage II: Partial thickness skin loss involving dermis with a shallow open ulcer or an open serum-filled blister Stage III: Full thickness skin loss involving damage or necrosis of subcutaneous tissue Stage IV: Full thickness skin loss with exposed bone, tendon or muscle Unstageable: Full thickness tissue loss in which the base of the of ulcer is covered by slough and/or eschar in the wound bed Deep tissue Injury (DTI):Purple or maroon localized area of intact skin due to damage of underlying soft tissue from pressure and/or shear Other (please specify) Clinically unable to determine Unknown 4. If ulcer is not due to pressure, please specify other cause of ulcer (e.g., diabetes, PVD, varicose veins) ER: Positive for: Other (ertyhema noted to buttock area-no evdience at this time of decubitus ulcers) H and P: sacrum erythema -wound care 05/09@09:00:Nurse Pressure Ulcer Assessment: sacrum ; excoriation: partial thickness loss of dermis presenting as a shallow ulcer 05/09 @12:00; Wound RN:: to hosp with IAD, Incontinence associated dermatitis, to b/l buttocks, sacral and Perineal This form is a permanent part of the medical record Clarification of your documentation is requested to better reflect the severity of illness and intensity of treatment of your patient. Indicators present [] Specify: [] [] Specify: [] [] Specify: [] [] Specify: [] Location in the medical record that reflects the above clinical findings: [] Treatment Provided: [] PHYSICIAN'S RESPONSE Based on your medical judgment of the clinical indicators outlined above please clarify the following: [] Practitioner response [] If unable to determine, please check the box, sign and date. Present On Admission (POA) Indicator: [] Present at the time of admission [] Not present at the time of admission [] Clinically Undetermined In responding to this query, please exercise your independent professional judgment. The fact that a question is asked does not imply that any particular answer is desired or expected. Thank you for your clarification on this documentation. If you have any questions please call. * Thank you, Yumiko Sabillon RN ext. #[phone]: Marilin Combs RN MTDD
[2017-05-10] MEDS ORDERED: Sodium Chloride 0.9% 1,000 ML IV SCH ×2 (08:30→09:30)
[2017-05-10] MEDS: cefTRIAXone IV 1 gm in Dextros 50 ML IVPB SCH (08:34)
--- NOTE | 2017-05-10 08:36 | CP.PCM.PN ---
<Aquiles Kern - Last Filed: 05/10/17 16:06> Subjective - Date & Time of Evaluation Date of Evaluation: 05/10/17 Time of Evaluation: 07:10 - Subjective Subjective: 76 y/o F with PMHx of DM, CKD, Depression, admitted for confusion, acidosis and acute on CKD, seen at bedside. Patient talkative, partially oriented, confused at times. She states that she feels better and wants to "get better". Patient refused Clay, as per nurse she has had good diuresis since yesterday. NO new episodes of upper or lower GI bleeding reported. Patient denies any pain at this time. She states that she stopped taking all her meds at home because "she didnt feel like taking pills", but denies being depressed. Urology evaluated patient and she will undergo Cystoscopy in the afternoon for acute on CKD and chronic B/L hydronephrosis work up. Objective - Vital Signs/Intake and Output Vital Signs (last 24 hours): Temp Pulse Resp BP Pulse Ox 97.9 F 99 H 18 105/61 100 05/10/17 07:41 05/10/17 08:28 05/10/17 07:41 05/10/17 08:28 05/10/17 07:41 Intake and Output: 05/10/17 05/10/17 06:59 18:59 Intake Total 980 120 Balance 980 120 - Medications Medications: Current Medications Ceftriaxone Sodium (Rocephin Iv 1 Gm Duplex) 50 mls @ 50 mls/hr IVPB DAILY [facility] PRN Reason: Protocol Last Admin: 05/10/17 08:34 Dose: 50 mls/hr Sodium Chloride (Sodium Chloride 0.9%) 1,000 mls @ 80 mls/hr IV .[id number] [facility] Stop: 05/11/17 08:30 Last Admin: 05/10/17 08:35 Dose: 80 mls/hr Insulin Human Lispro (Humalog) 0 units SC ACHS [facility] PRN Reason: Protocol Last Admin: 05/10/17 07:27 Dose: 3 unit Metoprolol Tartrate (Lopressor) 12.5 mg PO Q12 [facility] Last Admin: 05/10/17 08:28 Dose: 12.5 mg Ondansetron HCl (Zofran Inj) 4 mg IVP Q6H PRN PRN Reason: Nausea/Vomiting Pantoprazole Sodium (Protonix Inj) 40 mg IVP DAILY [facility] Last Admin: 05/10/17 08:27 Dose: 40 mg Paroxetine HCl (Paxil) 20 mg PO DAILY [facility] Last Admin: 05/10/17 08:28 Dose: 20 mg Sevelamer HCl (Renagel) 800 mg PO TID [facility] Last Admin: 05/10/17 08:34 Dose: 800 mg - Labs Labs: 05/10/17 04:45 05/10/17 04:45 PT 11.7 Seconds (9.8-13.1) 05/08/17 23:16 INR 1.0 (0.9-1.2) 05/08/17 23:16 APTT 32.4 Seconds (25.6-37.1) 05/08/17 23:16 - Constitutional Appears: Non-toxic, Other (weak) - Head Exam Head Exam: NORMAL INSPECTION - Eye Exam Eye Exam: EOMI, PERRL - ENT Exam ENT Exam: Mucous Membranes Dry - Respiratory Exam Respiratory Exam: Clear to Ausculation Bilateral, NORMAL BREATHING PATTERN - Cardiovascular Exam Cardiovascular Exam: REGULAR RHYTHM, +S1, +S2 - GI/Abdominal Exam GI & Abdominal Exam: Soft, Normal Bowel Sounds. absent: Tenderness - Extremities Exam Extremities Exam: absent: Calf Tenderness - Neurological Exam Neurological Exam: Alert, Awake. absent: Oriented x3 (Oriented to place and person.) - Psychiatric Exam Psychiatric exam: Normal Mood - Skin Skin Exam: Dry, Warm Assessment and Plan - Assessment and Plan (Free Text) Assessment: Assessment: 76yo F with PMHx uncontrolled IDDM, HTN, CKD4, depression, history of noncompliance with medications, admitted for acidosis, acute on chronic kidney injury with UTI. Plan: 1) Acute on Chronic Kidney Injury with acidosis -Likely due to DKA vs Prerenal azotemia -VBG pCO2/pO2/pH: 24/35/7.11 on admission -Anion Gap: 25 -GFR: 9, BUN/Cr 122/4.9 Today -F/U CMP 05/11 -Increased fluids to 150cc/hr -C/W Bicarb as per CCU management. Will f/u CCU recs -nephrology consulted: C/w current management 2) IDDM with complications -Uncontrolled -C/W Lispro Sliding Scale q6hr -accucheck q6 3) Hyponatremia, acute -Poss hypovolemic hyponatremia -122 on presentation -128 today morning -C/W IV NS at 150cc/hr -F/U CMP on 05/11 -Urine lytes ordered pending because patient declined clay. Will try to convince patient of the importance of the clay, pending Cystoscopy outcome. 4) Hydronephrosis, chronic -Poss due to chronic obstructive uropathy. -F/U Cystoscopy/Urology recs. 5) Hyperkalemia likely secondary to acute on CKD -4.5: Resolved 6) UTI (questionable) -Patient has hx of multiple UTI/Asymptomatic bacteriuria -CT abd/pelvis: renal pelvic and ureter prominence -lactate WNL -C/W Abx -follow cultures(Uncollected due to patient incontinent and refusing Clay) 7) Coffee ground emesis -Poss Upper GI bleeding -Hgb 11 -FOBT ordered/pending 8) HTN controlled -Stop Metoprolol 12.5mg PO BID for now -Valsartan 80mg PO Daily 9) Depression, chronic -Paxil reduced to 10mg PO Daily -[facility] consult recs: C/W 10mg Paxil and Consider Namenda 5 mg 10) Sacral erythema without pressure ulcer -C/W protective ointment PRN and frequent position changes 11) Prophylaxis -SCDs for now given coffee ground emesis -Florastor <Jose Juan Boswell - Last Filed: 05/12/17 06:56> Objective - Vital Signs/Intake and Output Vital Signs (last 24 hours): Temp Pulse Resp BP Pulse Ox 99.0 F 70 16 110/60 100 05/12/17 05:00 05/12/17 05:00 05/12/17 05:00 05/12/17 05:00 05/12/17 05:00 Intake and Output: 05/11/17 05/12/17 18:59 06:59 Intake Total 2050 2100 Output Total 1200 1675 Balance 850 425 - Medications Medications: Current Medications Acetaminophen (Tylenol 325mg Tab) 650 mg PO Q6 PRN PRN Reason: Other Last Admin: 05/11/17 12:10 Dose: 650 mg Heparin Sodium (Porcine) (Heparin) 5,000 units SC Q12 [facility] PRN Reason: Protocol Last Admin: 05/11/17 21:14 Dose: 5,000 units Ceftriaxone Sodium (Rocephin Iv 1 Gm Duplex) 50 mls @ 50 mls/hr IVPB DAILY [facility] PRN Reason: Protocol Last Admin: 05/11/17 08:30 Dose: 50 mls/hr Sodium Chloride (Sodium Chloride 0.9%) 500 mls @ 175 mls/hr IV .Q2H52M [facility] Last Admin: 05/12/17 04:30 Dose: 175 mls/hr Insulin Human Regular (Humulin R) 0 units SC ACCU-CHECK [facility] PRN Reason: Protocol Last Admin: 05/12/17 06:05 Dose: Not Given Memantine (Namenda) 5 mg PO DAILY [facility] Last Admin: 05/11/17 08:30 Dose: 5 mg Ondansetron HCl (Zofran Inj) 4 mg IVP Q6H PRN PRN Reason: Nausea/Vomiting Pantoprazole Sodium (Protonix Inj) 40 mg IVP DAILY [facility] Last Admin: 05/11/17 08:30 Dose: 40 mg Paroxetine HCl (Paxil) 10 mg PO DAILY [facility] Last Admin: 05/11/17 08:30 Dose: 10 mg Saccharomyces Boulardii (Florastor) 250 mg PO BID [facility] Last Admin: 05/11/17 17:13 Dose: 250 mg Sevelamer HCl (Renagel) 800 mg PO TID [facility] Last Admin: 05/11/17 17:12 Dose: 800 mg - Labs Labs: 05/12/17 04:30 05/12/17 04:30 PT 11.7 Seconds (9.8-13.1) 05/08/17 23:16 INR 1.0 (0.9-1.2) 05/08/17 23:16 APTT 32.4 Seconds (25.6-37.1) 05/08/17 23:16 Attending/Attestation - Attestation I have personally seen and examined this patient.: Yes I have fully participated in the care of the patient.: Yes I have reviewed all pertinent clinical information, including history, physical exam and plan: Yes
--- NOTE | 2017-05-10 13:15 | CP.PCM.CON ---
History of Present Illness - History of Present Illness History of Present Illness: REASONS OF CONSULT : A ON CKD .. WITH WIRSENING OF RENAL FUNCTION CHRONIC ADELAIDA HYDRONEPHROSIS PT IS WELL KNOWN TO OUR RENAL SERVICE .. MULTIPLE MEDICAL PROBLEMS AND FREQEUNT ADMISSIONS ALL PREVIOUS EMR REVIEWED .. PT WAS SEEN AND EXAMINED CASE D/W PROCUREMENT SERVICES MANAGER DR EASTMAN AND THE MED RESIDENTS Past Patient History - Infectious Disease Hx of Infectious Diseases: None - Past Medical History & Family History Past Medical History?: Yes - Past Social History Smoking Status: Never Smoked - CARDIAC Hx Cardiac Disorders: Yes - PULMONARY Hx Chronic Obstructive Pulmonary Disease (COPD): Yes Hx Pneumonia: Yes - NEUROLOGICAL Hx Neurological Disorder: No - HEENT Hx HEENT Problems: Yes - RENAL Hx Chronic Kidney Disease: Yes - ENDOCRINE/METABOLIC Hx Endocrine Disorders: Yes - HEMATOLOGICAL/ONCOLOGICAL Hx Human Immunodeficiency Virus (HIV): No - INTEGUMENTARY Hx Dermatological Problems: No - MUSCULOSKELETAL/RHEUMATOLOGICAL Hx Arthritis: Yes - GASTROINTESTINAL Hx Gastrointestinal Disorders: No - GENITOURINARY/GYNECOLOGICAL Hx Genitourinary Disorders: No - PSYCHIATRIC Hx Anxiety: Yes Hx Depression: Yes - SURGICAL HISTORY Hx Tonsillectomy: Yes - ANESTHESIA Hx Anesthesia: No Hx Anesthesia Reactions: No Hx Malignant Hyperthermia: No Meds Allergies/Adverse Reactions: Allergies Allergy/AdvReac Type Severity Reaction Status Date / Time No Known Allergies Allergy Verified 05/08/17 21:15 - Medications Medications: Current Medications Ceftriaxone Sodium (Rocephin Iv 1 Gm Duplex) 50 mls @ 50 mls/hr IVPB DAILY [facility] PRN Reason: Protocol Last Admin: 05/10/17 08:34 Dose: 50 mls/hr Sodium Chloride (Sodium Chloride 0.9%) 1,000 mls @ 150 mls/hr IV .Q6H40M [facility] Stop: 05/11/17 13:02 Insulin Human Lispro (Humalog) 0 units SC ACHS [facility] PRN Reason: Protocol Last Admin: 05/10/17 11:44 Dose: 3 unit Memantine (Namenda) 5 mg PO DAILY [facility] Last Admin: 05/10/17 11:49 Dose: 5 mg Ondansetron HCl (Zofran Inj) 4 mg IVP Q6H [facility] PRN Reason: Nausea/Vomiting Pantoprazole Sodium (Protonix Inj) 40 mg IVP DAILY [facility] Last Admin: 05/10/17 08:27 Dose: 40 mg Paroxetine HCl (Paxil) 10 mg PO DAILY [facility] Sevelamer HCl (Renagel) 800 mg PO TID [facility] Last Admin: 05/10/17 08:34 Dose: 800 mg Results - Vital Signs Recent Vital Signs: Last Vital Signs Temp 98.4 F 05/10/17 12:00 Pulse 86 05/10/17 12:00 Resp 19 05/10/17 12:00 BP 92/44 L 05/10/17 12:00 Pulse Ox 100 05/10/17 12:00 - Labs Result Diagrams: 05/10/17 04:45 05/10/17 04:45 Labs: Laboratory Results - last 24 hr 05/09/17 05/09/17 05/09/17 16:00 16:00 16:39 WBC 16.3 H RBC 4.68 Hgb 12.0 Hct 37.5 MCV 80.1 L MCH 25.6 L MCHC 32.0 L RDW 15.1 H Plt Count 311 MPV 7.5 Neut % (Auto) 79.2 H Lymph % (Auto) 13.0 L Emmons % (Auto) 7.3 Eos % (Auto) 0.3 Baso % (Auto) 0.2 Neut # 12.9 H Lymph # 2.1 Emmons # 1.2 H Eos # 0.0 Baso # 0.0 Sodium 129 L Potassium 5.0 Chloride 101 Carbon Dioxide 9 L* D Anion Gap 24 H BUN 136 H* Creatinine 5.3 H Est GFR ( Amer) 10 Est GFR (Non-Af Amer) 8 POC Glucose (mg/dL) 318 H Random Glucose 282 H Calcium 8.6 Phosphorus 7.0 H Magnesium 2.6 H Total Bilirubin 0.3 AST 23 ALT 22 Alkaline Phosphatase 130 H Total Protein 6.8 Albumin 3.5 Globulin 3.3 Albumin/Globulin Ratio 1.1 05/09/17 05/10/17 05/10/17 21:18 02:54 04:45 WBC 13.3 H RBC 4.33 Hgb 11.0 L Hct 33.9 L MCV 78.3 L MCH 25.5 L MCHC 32.5 L RDW 14.8 H Plt Count 303 MPV Neut % (Auto) Lymph % (Auto) Emmons % (Auto) Eos % (Auto) Baso % (Auto) Neut # Lymph # Emmons # Eos # Baso # Sodium Potassium Chloride Carbon Dioxide Anion Gap BUN Creatinine Est GFR ( Amer) Est GFR (Non-Af Amer) POC Glucose (mg/dL) 309 H 149 H Random Glucose Calcium Phosphorus Magnesium Total Bilirubin AST ALT Alkaline Phosphatase Total Protein Albumin Globulin Albumin/Globulin Ratio 05/10/17 05/10/17 05/10/17 04:45 05:44 11:04 WBC RBC Hgb Hct MCV MCH MCHC RDW Plt Count MPV Neut % (Auto) Lymph % (Auto) Emmons % (Auto) Eos % (Auto) Baso % (Auto) Neut # Lymph # Emmons # Eos # Baso # Sodium 128 L Potassium 4.5 Chloride 99 Carbon Dioxide 16 L Anion Gap 18 BUN 122 H* Creatinine 4.9 H Est GFR ( Amer) 10 Est GFR (Non-Af Amer) 9 POC Glucose (mg/dL) 218 H 235 H Random Glucose 186 H Calcium 8.5 Phosphorus Magnesium Total Bilirubin 0.3 AST 20 ALT 28 Alkaline Phosphatase 126 Total Protein 6.6 Albumin 3.3 L Globulin 3.3 Albumin/Globulin Ratio 1.0 Assessment & Plan - Assessment and Plan (Free Text) Assessment: A ON CKD .. ON IVF .. RENAL FUNCTION LITTLE BETTER ANEMIA OF CKD .. H/H STABLE P : C/O CURRENT CARE - Date & Time Date: 05/10/17 Time: 13:00
--- NOTE | 2017-05-10 13:29 | CP.CCUPN ---
CCU Subjective - Physician Review Subjective (Free Text): Awake and responsive this AM, no overall distress. No fever spikes. c/o increased thirst. No recurrent vomiting or c/o nausea. Multiple self- urination episodes, brown BM noted. Other vitals and I/O's reviewed. Borderline BP with systolics 95, HR 82, on Metoprolol Q12H. ROS: No other pertinent negs or positives on 10+ system review. PMSFH: All Nursing and physician documentation reviewed to date; no new pertinent info noted relevant to current medical problems. CXR: clear lung diaz bilaterally ( my interp). MAJOR PROBLEMS: 1. Gapped Metabolic Acidosis with normal Lactates on Admission. No Severe sepsis noted an admission: 2 CKD with uremic BUN level, also DKA is a possibility. 2. 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 3. Chronic disease Anemia 4. UGI Bleed 5. Hypovolemic Hyponatremia 6. Psych Disorder with Major Depression PLAN: 1. Supplemental bicarb given with artifactual increase in serum bicarb levels. No need for any further alkalinized fluids. Continue hydration with NSS , and monitor serial lytes. Patient refused any Adams and straight cath for urine specimens, so no UA, Urine C&S, urine osmo studies done on admission. CTAP results reviewed suggesting possible tract infection, but not definite. Empiric abx coverage started with gram neg coverage. 2. Reduce Paxil. 3. Stop Metoprolol. 4. Increase IVFs with NSS or D5NS. Insulin coverage for now. 5. No need for acute [employer]/HD. CCU Objective - Vital Signs / Intake & Output Vital Signs (Last 4 hours): Vital Signs Temp Pulse Resp BP Pulse Ox 05/10/17 12:00 98.4 F 86 19 92/44 L 100 Intake and Output (Last 8hrs): Intake & Output 05/09/17 05/10/17 05/10/17 22:59 06:59 14:59 Intake Total 1050 580 120 Balance 1050 580 120 Intake: IV 800 100 0 Oral 250 480 120 Other: # Bowel Movements 1 - Physical Exam Head: Positive for: Normocephalic Pupils: Positive for: PERRL Extroacular Muscles: Positive for: EOMI Conjunctiva: Positive for: Normal. Negative for: Icteric Mouth: Positive for: Dry Neck: Negative for: Meningeal Signs, JVD Respiratory/Chest: Positive for: Clear to Auscultation. Negative for: Accessory Muscle Use, Wheezes Cardiovascular: Positive for: Regular Rate and Rhythm, Normal S1, S2. Negative for: Murmurs, Rub Abdomen: Positive for: Normal Bowel Sounds. Negative for: Tenderness, Distention, Mass/Organomegaly Lower Extremity: Positive for: NORMAL PULSES. Negative for: Edema, CALF TENDERNESS, Cyanosis Neurological: Positive for: GCS=15, Speech Normal, Motor Func Grossly Intact, Normal Sensory Function, Norm Deep Tendon Reflexes Skin: Positive for: Warm, Dry. Negative for: Rashes Psychiatric: Positive for: Alert, Oriented x 3, Depressed Mood - Medications Active Medications: Active Medications Generic Name Dose Route Start Last Admin Trade Name Freq PRN Reason Stop Dose Admin Ceftriaxone Sodium 50 mls @ 50 mls/hr 05/09/17 09:00 05/10/17 08:34 Rocephin Iv 1 Gm Duplex IVPB 50 mls/hr DAILY [facility] Administration Protocol Sodium Chloride 1,000 mls @ 150 mls/hr 05/10/17 09:30 Sodium Chloride 0.9% IV 05/11/17 13:02 .Q6H40M [facility] Insulin Human Lispro 0 units 05/09/17 16:30 05/10/17 11:44 Humalog SC 3 unit ACHS [facility] Administration Protocol Insulin Human Regular 0 units 05/10/17 17:00 Humulin R SC ACCU-CHECK [facility] Protocol Memantine 5 mg 05/10/17 09:00 05/10/17 11:49 Namenda PO 5 mg DAILY [facility] Administration Ondansetron HCl 4 mg 05/09/17 02:33 Zofran Inj IVP Q6H PRN Nausea/Vomiting Pantoprazole Sodium 40 mg 05/09/17 09:00 05/10/17 08:27 Protonix Inj IVP 40 mg DAILY [facility] Administration Paroxetine HCl 10 mg 05/11/17 09:00 Paxil PO DAILY [facility] Sevelamer HCl 800 mg 05/09/17 09:00 05/10/17 08:34 Renagel PO 800 mg TID [facility] Administration - Patient Studies Lab Studies: Lab Studies 05/10/17 05/10/17 05/10/17 Range/Units 11:04 05:44 04:45 WBC (4.8-10.8) K/uL RBC (3.80-5.20) Mil/uL Hgb (12.0-16.0) g/dL Hct (34.0-47.0) % MCV (81.0-99.0) fl MCH (27.0-31.0) pg MCHC (33.0-37.0) g/dL RDW (11.5-14.5) % Plt Count (130-400) K/uL MPV (7.2-11.7) fl Neut % (Auto) (50.0-75.0) % Lymph % (Auto) (20.0-40.0) % [place] % (Auto) (0.0-10.0) % Eos % (Auto) (0.0-4.0) % Baso % (Auto) (0.0-2.0) % Neut # (1.8-7.0) K/uL Lymph # (1.0-4.3) K/uL [place] # (0.0-0.8) K/uL Eos # (0.0-0.7) K/uL Baso # (0.0-0.2) K/uL Sodium 128 L (132-148) mmol/l Potassium 4.5 (3.6-5.0) MMOL/L Chloride 99 (98-107) mmol/L Carbon Dioxide 16 L (22-30) mmol/L Anion Gap 18 (10-20) BUN 122 H* (7-17) mg/dl Creatinine 4.9 H (0.7-1.2) mg/dL Est GFR ( Amer) 10 Est GFR (Non-Af Amer) 9 POC Glucose (mg/dL) 235 H 218 H (65-110) mg/dL Random Glucose 186 H (65-105) mg/dL Calcium 8.5 (8.4-10.2) mg/dL Phosphorus (2.5-4.5) mg/dl Magnesium (1.6-2.3) MG/DL Total Bilirubin 0.3 (0.2-1.3) mg/dl AST 20 (14-36) U/L ALT 28 (9-52) U/L Alkaline Phosphatase 126 (38-126) U/L Total Protein 6.6 (6.3-8.2) G/DL Albumin 3.3 L (3.5-5.0) g/dL Globulin 3.3 (2.2-3.9) gm/dL Albumin/Globulin Ratio 1.0 (1.0-2.1) 05/10/17 05/10/17 05/09/17 Range/Units 04:45 02:54 21:18 WBC 13.3 H (4.8-10.8) K/uL RBC 4.33 (3.80-5.20) Mil/uL Hgb 11.0 L (12.0-16.0) g/dL Hct 33.9 L (34.0-47.0) % MCV 78.3 L (81.0-99.0) fl MCH 25.5 L (27.0-31.0) pg MCHC 32.5 L (33.0-37.0) g/dL RDW 14.8 H (11.5-14.5) % Plt Count 303 (130-400) K/uL MPV (7.2-11.7) fl Neut % (Auto) (50.0-75.0) % Lymph % (Auto) (20.0-40.0) % [place] % (Auto) (0.0-10.0) % Eos % (Auto) (0.0-4.0) % Baso % (Auto) (0.0-2.0) % Neut # (1.8-7.0) K/uL Lymph # (1.0-4.3) K/uL [place] # (0.0-0.8) K/uL Eos # (0.0-0.7) K/uL Baso # (0.0-0.2) K/uL Sodium (132-148) mmol/l Potassium (3.6-5.0) MMOL/L Chloride (98-107) mmol/L Carbon Dioxide (22-30) mmol/L Anion Gap (10-20) BUN (7-17) mg/dl Creatinine (0.7-1.2) mg/dL Est GFR ( Amer) Est GFR (Non-Af Amer) POC Glucose (mg/dL) 149 H 309 H (65-110) mg/dL Random Glucose (65-105) mg/dL Calcium (8.4-10.2) mg/dL Phosphorus (2.5-4.5) mg/dl Magnesium (1.6-2.3) MG/DL Total Bilirubin (0.2-1.3) mg/dl AST (14-36) U/L ALT (9-52) U/L Alkaline Phosphatase (38-126) U/L Total Protein (6.3-8.2) G/DL Albumin (3.5-5.0) g/dL Globulin (2.2-3.9) gm/dL Albumin/Globulin Ratio (1.0-2.1) 05/09/17 05/09/17 05/09/17 Range/Units 16:39 16:00 16:00 WBC 16.3 H (4.8-10.8) K/uL RBC 4.68 (3.80-5.20) Mil/uL Hgb 12.0 (12.0-16.0) g/dL Hct 37.5 (34.0-47.0) % MCV 80.1 L (81.0-99.0) fl MCH 25.6 L (27.0-31.0) pg MCHC 32.0 L (33.0-37.0) g/dL RDW 15.1 H (11.5-14.5) % Plt Count 311 (130-400) K/uL MPV 7.5 (7.2-11.7) fl Neut % (Auto) 79.2 H (50.0-75.0) % Lymph % (Auto) 13.0 L (20.0-40.0) % [place] % (Auto) 7.3 (0.0-10.0) % Eos % (Auto) 0.3 (0.0-4.0) % Baso % (Auto) 0.2 (0.0-2.0) % Neut # 12.9 H (1.8-7.0) K/uL Lymph # 2.1 (1.0-4.3) K/uL [place] # 1.2 H (0.0-0.8) K/uL Eos # 0.0 (0.0-0.7) K/uL Baso # 0.0 (0.0-0.2) K/uL Sodium 129 L (132-148) mmol/l Potassium 5.0 (3.6-5.0) MMOL/L Chloride 101 (98-107) mmol/L Carbon Dioxide 9 L* D (22-30) mmol/L Anion Gap 24 H (10-20) BUN 136 H* (7-17) mg/dl Creatinine 5.3 H (0.7-1.2) mg/dL Est GFR ( Amer) 10 Est GFR (Non-Af Amer) 8 POC Glucose (mg/dL) 318 H (65-110) mg/dL Random Glucose 282 H (65-105) mg/dL Calcium 8.6 (8.4-10.2) mg/dL Phosphorus 7.0 H (2.5-4.5) mg/dl Magnesium 2.6 H (1.6-2.3) MG/DL Total Bilirubin 0.3 (0.2-1.3) mg/dl AST 23 (14-36) U/L ALT 22 (9-52) U/L Alkaline Phosphatase 130 H (38-126) U/L Total Protein 6.8 (6.3-8.2) G/DL Albumin 3.5 (3.5-5.0) g/dL Globulin 3.3 (2.2-3.9) gm/dL Albumin/Globulin Ratio 1.1 (1.0-2.1) Laboratory Results - last 24 hr 05/09/17 05/09/17 05/09/17 16:00 16:00 16:39 WBC 16.3 H RBC 4.68 Hgb 12.0 Hct 37.5 MCV 80.1 L MCH 25.6 L MCHC 32.0 L RDW 15.1 H Plt Count 311 MPV 7.5 Neut % (Auto) 79.2 H Lymph % (Auto) 13.0 L [place] % (Auto) 7.3 Eos % (Auto) 0.3 Baso % (Auto) 0.2 Neut # 12.9 H Lymph # 2.1 [place] # 1.2 H Eos # 0.0 Baso # 0.0 Sodium 129 L Potassium 5.0 Chloride 101 Carbon Dioxide 9 L* D Anion Gap 24 H BUN 136 H* Creatinine 5.3 H Est GFR ( Amer) 10 Est GFR (Non-Af Amer) 8 POC Glucose (mg/dL) 318 H Random Glucose 282 H Calcium 8.6 Phosphorus 7.0 H Magnesium 2.6 H Total Bilirubin 0.3 AST 23 ALT 22 Alkaline Phosphatase 130 H Total Protein 6.8 Albumin 3.5 Globulin 3.3 Albumin/Globulin Ratio 1.1 05/09/17 05/10/17 05/10/17 21:18 02:54 04:45 WBC 13.3 H RBC 4.33 Hgb 11.0 L Hct 33.9 L MCV 78.3 L MCH 25.5 L MCHC 32.5 L RDW 14.8 H Plt Count 303 MPV Neut % (Auto) Lymph % (Auto) [place] % (Auto) Eos % (Auto) Baso % (Auto) Neut # Lymph # [place] # Eos # Baso # Sodium Potassium Chloride Carbon Dioxide Anion Gap BUN Creatinine Est GFR ( Amer) Est GFR (Non-Af Amer) POC Glucose (mg/dL) 309 H 149 H Random Glucose Calcium Phosphorus Magnesium Total Bilirubin AST ALT Alkaline Phosphatase Total Protein Albumin Globulin Albumin/Globulin Ratio 05/10/17 05/10/17 05/10/17 04:45 05:44 11:04 WBC RBC Hgb Hct MCV MCH MCHC RDW Plt Count MPV Neut % (Auto) Lymph % (Auto) [place] % (Auto) Eos % (Auto) Baso % (Auto) Neut # Lymph # [place] # Eos # Baso # Sodium 128 L Potassium 4.5 Chloride 99 Carbon Dioxide 16 L Anion Gap 18 BUN 122 H* Creatinine 4.9 H Est GFR ( Amer) 10 Est GFR (Non-Af Amer) 9 POC Glucose (mg/dL) 218 H 235 H Random Glucose 186 H Calcium 8.5 Phosphorus Magnesium Total Bilirubin 0.3 AST 20 ALT 28 Alkaline Phosphatase 126 Total Protein 6.6 Albumin 3.3 L Globulin 3.3 Albumin/Globulin Ratio 1.0 Radiology Interpretations (Free Text): CXR: clear lung diaz bilaterally ( my interp). Fingerstick Blood Sugar Results: 235 Critical Care Progress Note - Nutrition Nutrition: Nutrition Category Date Time Status Liquid Diet [DIET] Diets 05/09/17 Breakfast Active
[2017-05-10 14:27] LABS: THYROID STIMULATING HORMONE 1.46 mIU/ML (0.46-4.68)
[2017-05-10] MEDS ORDERED: Etomidate 20 mg/10ml Inj IV ONE (16:33)
[2017-05-10] MEDS ORDERED: cefTRIAXone (Rocephin) 1 gm Inj ONE (16:55)
[2017-05-10] MEDS ORDERED: Iohexol 300 100 ML IJ ONE (16:55)
[2017-05-10] MEDS ORDERED: Insulin Regular 100 units/ml SC SCH (17:00)
[2017-05-10] MEDS: Saccharomyces Boulardi 250 mg Cap PO SCH (17:00)
[2017-05-10] MEDS: Insulin Regular 100 units/ml SC SCH ×2 (17:00→23:55)
[2017-05-10] MEDS ORDERED: Sodium Chloride 0.9% 500 ML IV ONE (17:11)
[2017-05-10] MEDS ORDERED: Lactated Ringer's 1,000 ML IV ONE (17:11)
[2017-05-10] MEDS ORDERED: Propofol 10 mg/ml Inj (20 ML) ONE (17:20)
[2017-05-10] MEDS ORDERED: Phenylephrine 10 mg/ml Inj ONE (17:27)
[2017-05-10] MEDS ORDERED: Vancomycin 1 gm/NS 200 ml 1 GM/200 ML BAG IVPB ONE (18:53)
[2017-05-10 19:47] LABS: RBC URINE 186 /hpf (0-3); URINE BACTERIA MANY (<OCC); URINE BILIRUBIN NEGATIVE (NEGATIVE); URINE BLOOD LARGE (NEGATIVE); URINE COLOR YELLOW (YELLOW); URINE GLUCOSE (UA) 50 mg/dL (Normal); URINE KETONE NEGATIVE (NEGATIVE); URINE LEUKOCYTE ESTERASE MOD Leu/uL (Negative); URINE PROTEIN 100 mg/dL (NEGATIVE); URINE UROBILINOGEN 0.2-1.0 mg/dL (0.2-1.0); WBC CLUMPS MOD /hpf
[2017-05-10 19:48] LABS: WBC URINE 2093 /hpf (0-5)
[2017-05-10 20:32] LABS: CALCIUM 8.2 mg/dL (8.4-10.2); POTASSIUM 4.3 MMOL/L (3.6-5.0)
--- NOTE | 2017-05-10 21:38 | CP.PCM.PN ---
Subjective - Date & Time of Evaluation Date of Evaluation: 05/10/17 Time of Evaluation: 21:36 - Subjective Subjective: UROLOGY Pt taken to OR tonight and i was able to insert bilateral renal JJ Stents.There was noted bilateral hydronephrosis. Hopefully this will help improve renal function Objective - Vital Signs/Intake and Output Vital Signs (last 24 hours): Temp Pulse Resp BP Pulse Ox 96.8 F L 72 13 103/70 100 05/10/17 20:49 05/10/17 20:49 05/10/17 20:49 05/10/17 20:49 05/10/17 20:49 Intake and Output: 05/10/17 05/11/17 18:59 06:59 Intake Total 1270 270 Output Total 200 Balance 1270 70 - Medications Medications: Current Medications Acetaminophen (Tylenol 325mg Tab) 650 mg PO Q6 PRN PRN Reason: Other Ceftriaxone Sodium (Rocephin Iv 1 Gm Duplex) 50 mls @ 50 mls/hr IVPB DAILY [facility] PRN Reason: Protocol Last Admin: 05/10/17 08:34 Dose: 50 mls/hr Dextrose/Sodium Chloride (Dextrose 5%-0.9% Ns 500 Ml) 500 mls @ 150 mls/hr IV .Q3H20M [facility] Stop: 05/11/17 16:08 Last Admin: 05/10/17 20:28 Dose: 150 mls/hr Insulin Human Regular (Humulin R) 0 units SC ACCU-CHECK [facility] PRN Reason: Protocol Last Admin: 05/10/17 17:00 Dose: Not Given Memantine (Namenda) 5 mg PO DAILY [facility] Last Admin: 05/10/17 11:49 Dose: 5 mg Ondansetron HCl (Zofran Inj) 4 mg IVP Q6H PRN PRN Reason: Nausea/Vomiting Pantoprazole Sodium (Protonix Inj) 40 mg IVP DAILY [facility] Last Admin: 05/10/17 08:27 Dose: 40 mg Paroxetine HCl (Paxil) 10 mg PO DAILY [facility] Saccharomyces Boulardii (Florastor) 250 mg PO BID [facility] Last Admin: 05/10/17 17:00 Dose: Not Given Sevelamer HCl (Renagel) 800 mg PO TID [facility] Last Admin: 05/10/17 17:00 Dose: Not Given - Labs Labs: 05/10/17 04:45 11/01/17 20:16 PT 11.7 Seconds (9.8-13.1) 05/08/17 23:16 INR 1.0 (0.9-1.2) 05/08/17 23:16 APTT 32.4 Seconds (25.6-37.1) 05/08/17 23:16
[2017-05-11 00:23] LABS: RBC URINE 1 /hpf (0-3); URINE BILIRUBIN NEGATIVE (NEGATIVE); URINE BLOOD MODERATE (NEGATIVE); URINE GLUCOSE (UA) 50 mg/dL (Normal); URINE KETONE NEGATIVE (NEGATIVE); URINE LEUKOCYTE ESTERASE LARGE Leu/uL (Negative); URINE PROTEIN >=500 mg/dL (NEGATIVE); URINE UROBILINOGEN 0.2-1.0 mg/dL (0.2-1.0); WBC URINE 1 /hpf (0-5)
[2017-05-11 00:31] LABS: URINE COLOR RED (YELLOW)
[2017-05-11] MEDS: Insulin Regular 100 units/ml SC SCH ×4 (06:26→23:30)
[2017-05-11 08:19] LABS: BASO % 0.3 % (0.0-2.0); EOS # 0.1 K/uL (0.0-0.7); EOS % 1.4 % (0.0-4.0); HEMATOCRIT 30.9 % (34.0-47.0); LYMPH % 25.3 % (20.0-40.0); MEAN CELL VOLUME 78.8 fl (81.0-99.0); MEAN CORPUSCULAR HGB CONC 32.9 g/dL (33.0-37.0); MEAN PLATELET VOLUME 6.9 fl (7.2-11.7); MONO # 0.8 K/uL (0.0-0.8); MONO % 9.9 % (0.0-10.0); NEUT % 63.1 % (50.0-75.0); NRBC % 0.1 % (0.0-0.0); RED CELL DISTRIBUTION WIDTH 14.6 % (11.5-14.5); WHITE BLOOD COUNT 7.9 K/uL (4.8-10.8)
[2017-05-11] MEDS: Saccharomyces Boulardi 250 mg Cap PO SCH ×2 (08:29→17:13)
[2017-05-11] MEDS: cefTRIAXone IV 1 gm in Dextros 50 ML IVPB SCH (08:30)
[2017-05-11 08:33] LABS: ALB/GLOB RATIO 0.9 (1.0-2.1); ALKALINE PHOSPHATASE 99 U/L (38-126); ALT/SGPT 20 U/L (9-52); AST/SGOT 21 U/L (14-36); BILIRUBIN,TOTAL < 0.1 mg/dl (0.2-1.3); BLOOD UREA NITROGEN 89 mg/dl (7-17); CALCIUM 7.9 mg/dL (8.4-10.2); CARBON DIOXIDE 18 mmol/L (22-30); CHLORIDE 109 mmol/L (98-107); GFR AFRICAN-AMERICAN 15; GLUCOSE,RANDOM 267 mg/dL (65-105); MAGNESIUM 2.1 MG/DL (1.6-2.3); PHOSPHOROUS 4.2 mg/dl (2.5-4.5); POTASSIUM 4.4 MMOL/L (3.6-5.0); SODIUM 136 mmol/l (132-148); TOTAL PROTEIN 5.9 G/DL (6.3-8.2)
--- NOTE | 2017-05-11 09:44 | CP.PCM.PN ---
Addendum entered and electronically signed by Aquiles Kern MD 05/11/17 17: 31: Patient FOBT neg. no episodes of coffee ground like emesis, melena or hematochezia reported. Since patient kidney function is impaired, we will start her on heparin 5000 units Q12h for DVT prophylaxis Original Note: <Aquiles Kern - Last Filed: 05/11/17 16:24> Subjective - Date & Time of Evaluation Date of Evaluation: 05/11/17 Time of Evaluation: 06:55 - Subjective Subjective: 76 y/o patient admitted for metabolic acidosis and acute on CKA, seen at bedside in not acute distress. Patient successfully underwent Cystoscopy with B/ L JJ stent placement last night. Adams was placed during the procedure. Patient c/o of feeling tired this morning, she seems less confused and states, upon question her, that she "knows it was not a good idea to stop taking her meds at home". Denies vomiting, nausea, fever, CP, SOB or palpitations. Objective - Vital Signs/Intake and Output Vital Signs (last 24 hours): Temp Pulse Resp BP Pulse Ox 98.2 F 70 15 111/67 100 05/11/17 08:00 05/11/17 08:00 05/11/17 08:00 05/11/17 08:00 05/11/17 08:00 Intake and Output: 05/11/17 05/11/17 06:59 18:59 Intake Total 2250 Output Total 1030 Balance 1220 - Medications Medications: Current Medications Acetaminophen (Tylenol 325mg Tab) 650 mg PO Q6 PRN PRN Reason: Other Ceftriaxone Sodium (Rocephin Iv 1 Gm Duplex) 50 mls @ 50 mls/hr IVPB DAILY [facility] PRN Reason: Protocol Last Admin: 05/11/17 08:30 Dose: 50 mls/hr Dextrose/Sodium Chloride (Dextrose 5%-0.9% Ns 500 Ml) 500 mls @ 150 mls/hr IV .Q3H20M [facility] Stop: 05/11/17 16:08 Last Admin: 05/11/17 08:31 Dose: 150 mls/hr Insulin Human Regular (Humulin R) 0 units SC ACCU-CHECK [facility] PRN Reason: Protocol Last Admin: 05/11/17 06:26 Dose: 4 units Memantine (Namenda) 5 mg PO DAILY [facility] Last Admin: 05/11/17 08:30 Dose: 5 mg Ondansetron HCl (Zofran Inj) 4 mg IVP Q6H PRN PRN Reason: Nausea/Vomiting Pantoprazole Sodium (Protonix Inj) 40 mg IVP DAILY [facility] Last Admin: 05/11/17 08:30 Dose: 40 mg Paroxetine HCl (Paxil) 10 mg PO DAILY [facility] Last Admin: 05/11/17 08:30 Dose: 10 mg Saccharomyces Boulardii (Florastor) 250 mg PO BID [facility] Last Admin: 05/11/17 08:29 Dose: 250 mg Sevelamer HCl (Renagel) 800 mg PO TID [facility] Last Admin: 05/11/17 08:29 Dose: 800 mg - Labs Labs: 05/11/17 08:00 05/11/17 08:00 PT 11.7 Seconds (9.8-13.1) 05/08/17 23:16 INR 1.0 (0.9-1.2) 05/08/17 23:16 APTT 32.4 Seconds (25.6-37.1) 05/08/17 23:16 - Constitutional Appears: Non-toxic - Eye Exam Eye Exam: EOMI Pupil Exam: PERRL - Respiratory Exam Respiratory Exam: NORMAL BREATHING PATTERN. absent: Rales, Wheezes - Cardiovascular Exam Cardiovascular Exam: REGULAR RHYTHM, +S1, +S2 - GI/Abdominal Exam GI & Abdominal Exam: Soft, Normal Bowel Sounds. absent: Distended, Mass - Extremities Exam Extremities Exam: Normal Capillary Refill. absent: Calf Tenderness Additional comments: SCDs in place - Back Exam Back Exam: NORMAL INSPECTION - Neurological Exam Neurological Exam: Alert, Awake. absent: Oriented x3 (Oriented to place and person) - Psychiatric Exam Psychiatric exam: Normal Mood. absent: Suicidal Ideation - Skin Skin Exam: Normal Color, Warm Assessment and Plan - Assessment and Plan (Free Text) Assessment: 76yo F with PMHx uncontrolled IDDM, HTN, CKD4, depression, history of noncompliance with medications, admitted for acidosis and acute on chronic kidney injury Plan: 1)Acute on Chronic Kidney Injury with acidosis -Likely due to DKA vs Prerenal azotemia -Improving -CO2 18L -GFR: 12, BUN/Cr 89/3.6 Today -F/U CMP 05/12 -Will keep D5 150cc/hr until CO2=20L then will consider switching to Normal Saline -C/W Bicarb as per CCU management. Will f/u CCU recs -nephrology consulted: C/w current management 2)Bacteremia -BCx positive for gram + cocci: 1 of them Coag neg Staph -Pending final Cx. -C/W Vancomycin IV. Cr Cl 16. -F/U Random Vanco AM will adjust next dose depending of level 3)IDDM with complications -Uncontrolled. Accuchecks worsening today. Discussed with Dr Judge -Switch Lispro Sliding Scale to medium dose -accucheck q6 4)Hydronephrosis, chronic -Poss due to chronic obstructive uropathy. -S/P B/L JJ stent placement Yesterday 5)UTI (questionable) -Poss the source of bacteremia -Patient has hx of multiple UTI/Asymptomatic bacteriuria -CT abd/pelvis: renal pelvic and ureter prominence -lactate WNL -C/W Abx -follow cultures(Uncollected due to patient incontinent and refusing Adams) 6)Coffee ground emesis -Resolved -Hgb stable -FOBT negative 7)HTN controlled -Valsartan 80mg PO Daily 8)Depression, chronic -Paxil reduced to 10mg PO Daily -[place] [facility] consult recs: C/W 10mg Paxil and Consider Namenda 5 mg 9)Sacral erythema without pressure ulcer -C/W protective ointment PRN and frequent position changes 10)Hyponatremia, acute -Resolved -Poss hypovolemic hyponatremia -122 on presentation -136 today 11)Prophylaxis -SCDs for now given coffee ground emesis -Florastor <Min oWody - Last Filed: 05/16/17 06:42> Objective - Vital Signs/Intake and Output Vital Signs (last 24 hours): Temp Pulse Resp BP Pulse Ox 99.5 F 68 21 131/71 100 05/16/17 00:33 05/16/17 00:33 05/16/17 00:33 05/16/17 00:33 05/16/17 00:33 Intake and Output: 05/15/17 05/16/17 18:59 06:59 Intake Total 1550 450 Output Total 2000 450 Balance -450 0 - Medications Medications: Current Medications Acetaminophen (Tylenol 325mg Tab) 650 mg PO Q6 PRN PRN Reason: Other Last Admin: 05/11/17 12:10 Dose: 650 mg Clotrimazole (Lotrimin 1% Cream) 1 applic TOP BID [facility] Last Admin: 05/15/17 16:51 Dose: 1 applic Docusate Sodium (Colace) 100 mg PO BID [facility] Last Admin: 05/15/17 16:49 Dose: 100 mg Heparin Sodium (Porcine) (Heparin) 5,000 units SC Q12 [facility] PRN Reason: Protocol Last Admin: 05/15/17 21:45 Dose: 5,000 units Ceftriaxone Sodium 1 gm/ (Sodium Chloride) 100 mls @ 100 mls/hr IVPB DAILY [facility] PRN Reason: Protocol Last Admin: 05/15/17 08:45 Dose: 100 mls/hr Fluconazole (Diflucan Iv 100 Mg/50 Ml Ns) 50 mls @ 50 mls/hr IVPB Q24H [facility] PRN Reason: Protocol Last Admin: 05/15/17 16:47 Dose: 50 mls/hr Sodium Chloride (Sodium Chloride 0.9%) 1,000 mls @ 75 mls/hr IV .[id number] [facility] Stop: 05/16/17 21:46 Last Admin: 05/15/17 22:21 Dose: 75 mls/hr Insulin Human Regular (Humulin R) 0 units SC ACCU-CHECK [facility] PRN Reason: Protocol Last Admin: 05/15/17 22:22 Dose: Not Given Lactobacillus Acidophilus (Bacid Acidophilus) 1 cap PO BID [facility] Last Admin: 05/15/17 16:47 Dose: 1 cap Memantine (Namenda) 5 mg PO DAILY [facility] Last Admin: 05/15/17 08:45 Dose: 5 mg Ondansetron HCl (Zofran Inj) 4 mg IVP Q6H [facility] PRN Reason: Nausea/Vomiting Pantoprazole Sodium (Protonix Inj) 40 mg IVP DAILY [facility] Last Admin: 05/15/17 08:43 Dose: 40 mg Paroxetine HCl (Paxil) 10 mg PO DAILY [facility] Last Admin: 05/15/17 08:45 Dose: 10 mg Sevelamer HCl (Renagel) 800 mg PO TID [facility] Last Admin: 05/15/17 16:51 Dose: 800 mg - Labs Labs: 05/16/17 04:20 05/14/17 05:30 PT 11.7 Seconds (9.8-13.1) 05/08/17 23:16 INR 1.0 (0.9-1.2) 05/08/17 23:16 APTT 32.4 Seconds (25.6-37.1) 05/08/17 23:16 Attending/Attestation - Attestation I have personally seen and examined this patient.: Yes I have fully participated in the care of the patient.: Yes I have reviewed all pertinent clinical information, including history, physical exam and plan: Yes
--- NOTE | 2017-05-11 10:47 | CP.CCUPN ---
CCU Subjective - Physician Review Subjective (Free Text): Awake and appropriately responsive, no overall distress. No fever spikes. No recurrent vomiting or c/o nausea. s/p Bilat ureteral stent placement yesterday. Other vitals and I/O's reviewed. Improvement in BP levels noted. ROS: No other pertinent negs or positives on 10+ system review. PMSFH: All Nursing and physician documentation reviewed to date; no new pertinent info noted relevant to current medical problems. CXR: clear lung diaz bilaterally ( my interp). MAJOR PROBLEMS: 1. Gapped Metabolic Acidosis with normal Lactates on Admission. No Severe sepsis noted an admission: 2 CKD with uremic BUN level, also DKA is a possibility. 2. 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 3. Chronic disease Anemia 4. UGI Bleed 5. Hypovolemic Hyponatremia 6. Psych Disorder with Major Depression PLAN: 1. Slow improvement in serum bicarb and normalization of anion gap noted. Decrease IVF to maintenance hydration. 2. Vancomycin started yesterday, ID of G+ Cocci noted as coag neg Staph. 3. BUN levels finally under 100, urine output is non-oliguric. 4. Physical Therapy eval. 5. Stable for Tele bed. CCU Objective - Vital Signs / Intake & Output Vital Signs (Last 4 hours): Vital Signs Temp Pulse Resp BP Pulse Ox 05/11/17 08:00 98.2 F 70 15 111/67 100 Intake and Output (Last 8hrs): Intake & Output 05/10/17 05/11/17 05/11/17 22:59 06:59 14:59 Intake Total 1060 1440 300 Output Total 350 680 Balance 710 760 300 Intake: IV 700 1200 300 Oral 360 240 Output: Urine 350 680 Urine, Voided 350 680 - Physical Exam Head: Positive for: Normocephalic Pupils: Positive for: PERRL Extroacular Muscles: Positive for: EOMI Conjunctiva: Positive for: Normal. Negative for: Icteric Mouth: Positive for: Dry Neck: Negative for: Meningeal Signs, JVD Respiratory/Chest: Positive for: Clear to Auscultation. Negative for: Accessory Muscle Use, Wheezes Cardiovascular: Positive for: Regular Rate and Rhythm, Normal S1, S2. Negative for: Murmurs, Rub Abdomen: Positive for: Normal Bowel Sounds. Negative for: Tenderness, Distention, Mass/Organomegaly Lower Extremity: Positive for: NORMAL PULSES. Negative for: Edema, CALF TENDERNESS, Cyanosis Neurological: Positive for: GCS=15, Speech Normal, Motor Func Grossly Intact, Normal Sensory Function, Norm Deep Tendon Reflexes Skin: Positive for: Warm, Dry. Negative for: Rashes Psychiatric: Positive for: Alert, Oriented x 3, Depressed Mood - Medications Active Medications: Active Medications Generic Name Dose Route Start Last Admin Trade Name Freq PRN Reason Stop Dose Admin Acetaminophen 650 mg 05/10/17 21:08 Tylenol 325mg Tab PO Q6 PRN Other Ceftriaxone Sodium 50 mls @ 50 mls/hr 05/09/17 09:00 05/11/17 08:30 Rocephin Iv 1 Gm Duplex IVPB 50 mls/hr DAILY [place] Administration Protocol Dextrose/Sodium Chloride 500 mls @ 150 mls/hr 05/10/17 16:15 05/11/17 08:31 Dextrose 5%-0.9% Ns 500 Ml IV 05/11/17 16:08 150 mls/hr [id number] [place] Administration Insulin Human Regular 0 units 05/10/17 17:00 05/11/17 06:26 Humulin R SC 4 units ACCU-CHECK [place] Administration Protocol Memantine 5 mg 05/10/17 09:00 05/11/17 08:30 Namenda PO 5 mg DAILY [place] Administration Ondansetron HCl 4 mg 05/09/17 02:33 Zofran Inj IVP Q6H PRN Nausea/Vomiting Pantoprazole Sodium 40 mg 05/09/17 09:00 05/11/17 08:30 Protonix Inj IVP 40 mg DAILY [place] Administration Paroxetine HCl 10 mg 05/11/17 09:00 05/11/17 08:30 Paxil PO 10 mg DAILY [place] Administration Saccharomyces Boulardii 250 mg 05/10/17 17:00 05/11/17 08:29 Florastor PO 250 mg BID [place] Administration Sevelamer HCl 800 mg 05/09/17 09:00 05/11/17 08:29 Renagel PO 800 mg TID [place] Administration - Patient Studies Lab Studies: Microbiology Studies 05/08/17 22:40 Blood Culture - Preliminary Blood Gram Pos Cocci In Clusters Gram Stain - Final 05/08/17 23:00 S.aureus & Coag-Neg Staph PNA FISH - Final Blood Blood Culture - Preliminary Gram Pos Cocci In Clusters Gram Stain - Final 05/09/17 03:45 MRSA Culture (Admit) - Final Naris MRSA NOT DETECTED Lab Studies 05/11/17 05/11/17 05/11/17 Range/Units 08:00 08:00 08:00 WBC 7.9 (4.8-10.8) K/uL RBC 3.92 (3.80-5.20) Mil/uL Hgb 10.2 L (12.0-16.0) g/dL Hct 30.9 L (34.0-47.0) % MCV 78.8 L (81.0-99.0) fl MCH 26.0 L (27.0-31.0) pg MCHC 32.9 L (33.0-37.0) g/dL RDW 14.6 H (11.5-14.5) % Plt Count 231 (130-400) K/uL MPV 6.9 L (7.2-11.7) fl Neut % (Auto) 63.1 (50.0-75.0) % Lymph % (Auto) 25.3 (20.0-40.0) % [place] % (Auto) 9.9 (0.0-10.0) % Eos % (Auto) 1.4 (0.0-4.0) % Baso % (Auto) 0.3 (0.0-2.0) % Neut # 5.0 (1.8-7.0) K/uL Lymph # 2.0 (1.0-4.3) K/uL [place] # 0.8 (0.0-0.8) K/uL Eos # 0.1 (0.0-0.7) K/uL Baso # 0.0 (0.0-0.2) K/uL Sodium 136 (132-148) mmol/l Potassium 4.4 (3.6-5.0) MMOL/L Chloride 109 H (98-107) mmol/L Carbon Dioxide 18 L (22-30) mmol/L Anion Gap 13 (10-20) BUN 89 H (7-17) mg/dl Creatinine 3.6 H (0.7-1.2) mg/dL Est GFR ( Amer) 15 Est GFR (Non-Af Amer) 12 POC Glucose (mg/dL) (65-110) mg/dL Random Glucose 267 H (65-105) mg/dL Serum Osmolality 317 H (272-300) mosm/kg Calcium 7.9 L (8.4-10.2) mg/dL Phosphorus 4.2 (2.5-4.5) mg/dl Magnesium 2.1 (1.6-2.3) MG/DL Total Bilirubin < 0.1 L (0.2-1.3) mg/dl AST 21 (14-36) U/L ALT 20 (9-52) U/L Alkaline Phosphatase 99 (38-126) U/L Total Creatine Kinase 23 L (30-135) U/L Total Protein 5.9 L (6.3-8.2) G/DL Albumin 2.8 L (3.5-5.0) g/dL Globulin 3.1 (2.2-3.9) gm/dL Albumin/Globulin Ratio 0.9 L (1.0-2.1) TSH 3rd Generation (0.46-4.68) mIU/ML Urine Color Urine Clarity Urine pH Ur Specific [place] Urine Protein Urine Glucose (UA) Urine Ketones Urine Blood Urine Nitrate Urine Bilirubin Urine Urobilinogen Ur Leukocyte Esterase Urine RBC (Auto) Urine WBC Clumps (Auto) Urine Microscopic WBC Ur Squamous Epith Cells Ur Transition Epith Cell Ur Renal Epithelial Cell Calcium Carbonate Cryst Calcium Phos Yesenia (Auto) Calcium Oxalate Crystal Leucine Crystals Cystine Crystals Uric Acid Crystals Triple Phos Crystals Tyrosine Crystals Other Crystals Amorphous Sediment Urine Bacteria Epithelial Casts (Auto) Fatty Casts Hyaline Casts Granular Casts (Auto) Waxy Casts Broad Casts RBC Casts WBC Casts Other Casts Urine Trichomonas Ur Yeast w Hyphae Urine Yeast (Budding) Urine Sperm (Auto) Ur Oval Fat Bodies Auto Urine Osmolality (300-1000) mosm/kg Ur Random Sodium meq/L Ur Random Potassium mmol/L Stool Occult Blood (NEGATIVE) Urine Opiates Screen (NEGATIVE) Urine Methadone Screen (NEGATIVE) Ur Barbiturates Screen (NEGATIVE) Ur Phencyclidine Scrn (NEGATIVE) Ur Amphetamines Screen (NEGATIVE) U Benzodiazepines Scrn (NEGATIVE) U Oth Cocaine Metabols (NEGATIVE) U Cannabinoids Screen (NEGATIVE) 05/11/17 05/10/17 05/10/17 Range/Units 05:56 23:36 23:36 WBC (4.8-10.8) K/uL RBC (3.80-5.20) Mil/uL Hgb (12.0-16.0) g/dL Hct (34.0-47.0) % MCV (81.0-99.0) fl MCH (27.0-31.0) pg MCHC (33.0-37.0) g/dL RDW (11.5-14.5) % Plt Count (130-400) K/uL MPV (7.2-11.7) fl Neut % (Auto) (50.0-75.0) % Lymph % (Auto) (20.0-40.0) % [place] % (Auto) (0.0-10.0) % Eos % (Auto) (0.0-4.0) % Baso % (Auto) (0.0-2.0) % Neut # (1.8-7.0) K/uL Lymph # (1.0-4.3) K/uL [place] # (0.0-0.8) K/uL Eos # (0.0-0.7) K/uL Baso # (0.0-0.2) K/uL Sodium (132-148) mmol/l Potassium (3.6-5.0) MMOL/L Chloride (98-107) mmol/L Carbon Dioxide (22-30) mmol/L Anion Gap (10-20) BUN (7-17) mg/dl Creatinine (0.7-1.2) mg/dL Est GFR ( Amer) Est GFR (Non-Af Amer) POC Glucose (mg/dL) 343 H (65-110) mg/dL Random Glucose (65-105) mg/dL Serum Osmolality (272-300) mosm/kg Calcium (8.4-10.2) mg/dL Phosphorus (2.5-4.5) mg/dl Magnesium (1.6-2.3) MG/DL Total Bilirubin (0.2-1.3) mg/dl AST (14-36) U/L ALT (9-52) U/L Alkaline Phosphatase (38-126) U/L Total Creatine Kinase (30-135) U/L Total Protein (6.3-8.2) G/DL Albumin (3.5-5.0) g/dL Globulin (2.2-3.9) gm/dL Albumin/Globulin Ratio (1.0-2.1) TSH 3rd Generation (0.46-4.68) mIU/ML Urine Color Red Urine Clarity Cloudy Urine pH 6.0 Ur Specific [place] 1.017 Urine Protein >=500 Urine Glucose (UA) 50 Urine Ketones Negative Urine Blood Moderate Urine Nitrate Negative Urine Bilirubin Negative Urine Urobilinogen 0.2-1.0 Ur Leukocyte Esterase Large Urine RBC (Auto) 1 Urine WBC Clumps (Auto) Urine Microscopic WBC 1 Ur Squamous Epith Cells Ur Transition Epith Cell Ur Renal Epithelial Cell Calcium Carbonate Cryst Calcium Phos Yesenia (Auto) Calcium Oxalate Crystal Leucine Crystals Cystine Crystals Uric Acid Crystals Triple Phos Crystals Tyrosine Crystals Other Crystals Amorphous Sediment Urine Bacteria Epithelial Casts (Auto) Fatty Casts Hyaline Casts Granular Casts (Auto) Waxy Casts Broad Casts RBC Casts WBC Casts Other Casts Urine Trichomonas Ur Yeast w Hyphae Urine Yeast (Budding) Urine Sperm (Auto) Ur Oval Fat Bodies Auto Urine Osmolality (300-1000) mosm/kg Ur Random Sodium 64 meq/L Ur Random Potassium 13.0 mmol/L Stool Occult Blood (NEGATIVE) Urine Opiates Screen Negative (NEGATIVE) Urine Methadone Screen Negative (NEGATIVE) Ur Barbiturates Screen Negative (NEGATIVE) Ur Phencyclidine Scrn Negative (NEGATIVE) Ur Amphetamines Screen Negative (NEGATIVE) U Benzodiazepines Scrn Negative (NEGATIVE) U Oth Cocaine Metabols Negative (NEGATIVE) U Cannabinoids Screen Negative (NEGATIVE) 05/10/17 05/10/17 05/10/17 Range/Units 22:59 20:16 19:23 WBC (4.8-10.8) K/uL RBC (3.80-5.20) Mil/uL Hgb (12.0-16.0) g/dL Hct (34.0-47.0) % MCV (81.0-99.0) fl MCH (27.0-31.0) pg MCHC (33.0-37.0) g/dL RDW (11.5-14.5) % Plt Count (130-400) K/uL MPV (7.2-11.7) fl Neut % (Auto) (50.0-75.0) % Lymph % (Auto) (20.0-40.0) % [place] % (Auto) (0.0-10.0) % Eos % (Auto) (0.0-4.0) % Baso % (Auto) (0.0-2.0) % Neut # (1.8-7.0) K/uL Lymph # (1.0-4.3) K/uL [place] # (0.0-0.8) K/uL Eos # (0.0-0.7) K/uL Baso # (0.0-0.2) K/uL Sodium 132 (132-148) mmol/l Potassium 4.3 (3.6-5.0) MMOL/L Chloride 105 (98-107) mmol/L Carbon Dioxide 17 L (22-30) mmol/L Anion Gap 14 (10-20) BUN 107 H* (7-17) mg/dl Creatinine 4.3 H (0.7-1.2) mg/dL Est GFR ( Amer) 12 Est GFR (Non-Af Amer) 10 POC Glucose (mg/dL) 257 H (65-110) mg/dL Random Glucose 201 H (65-105) mg/dL Serum Osmolality (272-300) mosm/kg Calcium 8.2 L (8.4-10.2) mg/dL Phosphorus (2.5-4.5) mg/dl Magnesium (1.6-2.3) MG/DL Total Bilirubin (0.2-1.3) mg/dl AST (14-36) U/L ALT (9-52) U/L Alkaline Phosphatase (38-126) U/L Total Creatine Kinase (30-135) U/L Total Protein (6.3-8.2) G/DL Albumin (3.5-5.0) g/dL Globulin (2.2-3.9) gm/dL Albumin/Globulin Ratio (1.0-2.1) TSH 3rd Generation (0.46-4.68) mIU/ML Urine Color Yellow Urine Clarity Turbid Urine pH 6.0 Ur Specific [place] 1.012 Urine Protein 100 Urine Glucose (UA) 50 Urine Ketones Negative Urine Blood Large Urine Nitrate Negative Urine Bilirubin Negative Urine Urobilinogen 0.2-1.0 Ur Leukocyte Esterase Mod Urine RBC (Auto) 186 H Urine WBC Clumps (Auto) Mod H Urine Microscopic WBC 2093 H Ur Squamous Epith Cells Ur Transition Epith Cell Ur Renal Epithelial Cell Calcium Carbonate Cryst Calcium Phos Yesenia (Auto) Calcium Oxalate Crystal Leucine Crystals Cystine Crystals Uric Acid Crystals Triple Phos Crystals Tyrosine Crystals Other Crystals Amorphous Sediment Urine Bacteria Many H Epithelial Casts (Auto) Fatty Casts Hyaline Casts Granular Casts (Auto) Waxy Casts Broad Casts RBC Casts WBC Casts Other Casts Urine Trichomonas Ur Yeast w Hyphae Urine Yeast (Budding) Urine Sperm (Auto) Ur Oval Fat Bodies Auto Urine Osmolality (300-1000) mosm/kg Ur Random Sodium meq/L Ur Random Potassium mmol/L Stool Occult Blood (NEGATIVE) Urine Opiates Screen (NEGATIVE) Urine Methadone Screen (NEGATIVE) Ur Barbiturates Screen (NEGATIVE) Ur Phencyclidine Scrn (NEGATIVE) Ur Amphetamines Screen (NEGATIVE) U Benzodiazepines Scrn (NEGATIVE) U Oth Cocaine Metabols (NEGATIVE) U Cannabinoids Screen (NEGATIVE) 05/10/17 05/10/17 05/10/17 Range/Units 18:28 18:20 17:30 WBC (4.8-10.8) K/uL RBC (3.80-5.20) Mil/uL Hgb (12.0-16.0) g/dL Hct (34.0-47.0) % MCV (81.0-99.0) fl MCH (27.0-31.0) pg MCHC (33.0-37.0) g/dL RDW (11.5-14.5) % Plt Count (130-400) K/uL MPV (7.2-11.7) fl Neut % (Auto) (50.0-75.0) % Lymph % (Auto) (20.0-40.0) % [place] % (Auto) (0.0-10.0) % Eos % (Auto) (0.0-4.0) % Baso % (Auto) (0.0-2.0) % Neut # (1.8-7.0) K/uL Lymph # (1.0-4.3) K/uL [place] # (0.0-0.8) K/uL Eos # (0.0-0.7) K/uL Baso # (0.0-0.2) K/uL Sodium (132-148) mmol/l Potassium (3.6-5.0) MMOL/L Chloride (98-107) mmol/L Carbon Dioxide (22-30) mmol/L Anion Gap (10-20) BUN (7-17) mg/dl Creatinine (0.7-1.2) mg/dL Est GFR ( Amer) Est GFR (Non-Af Amer) POC Glucose (mg/dL) 174 H (65-110) mg/dL Random Glucose (65-105) mg/dL Serum Osmolality (272-300) mosm/kg Calcium (8.4-10.2) mg/dL Phosphorus (2.5-4.5) mg/dl Magnesium (1.6-2.3) MG/DL Total Bilirubin (0.2-1.3) mg/dl AST (14-36) U/L ALT (9-52) U/L Alkaline Phosphatase (38-126) U/L Total Creatine Kinase (30-135) U/L Total Protein (6.3-8.2) G/DL Albumin (3.5-5.0) g/dL Globulin (2.2-3.9) gm/dL Albumin/Globulin Ratio (1.0-2.1) TSH 3rd Generation (0.46-4.68) mIU/ML Urine Color Urine Clarity Urine pH Ur Specific [place] Urine Protein Urine Glucose (UA) Urine Ketones Urine Blood Urine Nitrate Urine Bilirubin Urine Urobilinogen Ur Leukocyte Esterase Urine RBC (Auto) Urine WBC Clumps (Auto) Urine Microscopic WBC Ur Squamous Epith Cells Ur Transition Epith Cell Ur Renal Epithelial Cell Calcium Carbonate Cryst Calcium Phos Yesenia (Auto) Calcium Oxalate Crystal Leucine Crystals Cystine Crystals Uric Acid Crystals Triple Phos Crystals Tyrosine Crystals Other Crystals Amorphous Sediment Urine Bacteria Epithelial Casts (Auto) Fatty Casts Hyaline Casts Granular Casts (Auto) Waxy Casts Broad Casts RBC Casts WBC Casts Other Casts Urine Trichomonas Ur Yeast w Hyphae Urine Yeast (Budding) Urine Sperm (Auto) Ur Oval Fat Bodies Auto Urine Osmolality 334 (300-1000) mosm/kg Ur Random Sodium 58 meq/L Ur Random Potassium 16.1 mmol/L Stool Occult Blood Negative (NEGATIVE) Urine Opiates Screen (NEGATIVE) Urine Methadone Screen (NEGATIVE) Ur Barbiturates Screen (NEGATIVE) Ur Phencyclidine Scrn (NEGATIVE) Ur Amphetamines Screen (NEGATIVE) U Benzodiazepines Scrn (NEGATIVE) U Oth Cocaine Metabols (NEGATIVE) U Cannabinoids Screen (NEGATIVE) 05/10/17 05/10/17 05/10/17 Range/Units 16:05 11:04 06:45 WBC (4.8-10.8) K/uL RBC (3.80-5.20) Mil/uL Hgb (12.0-16.0) g/dL Hct (34.0-47.0) % MCV (81.0-99.0) fl MCH (27.0-31.0) pg MCHC (33.0-37.0) g/dL RDW (11.5-14.5) % Plt Count (130-400) K/uL MPV (7.2-11.7) fl Neut % (Auto) (50.0-75.0) % Lymph % (Auto) (20.0-40.0) % [place] % (Auto) (0.0-10.0) % Eos % (Auto) (0.0-4.0) % Baso % (Auto) (0.0-2.0) % Neut # (1.8-7.0) K/uL Lymph # (1.0-4.3) K/uL [place] # (0.0-0.8) K/uL Eos # (0.0-0.7) K/uL Baso # (0.0-0.2) K/uL Sodium (132-148) mmol/l Potassium (3.6-5.0) MMOL/L Chloride (98-107) mmol/L Carbon Dioxide (22-30) mmol/L Anion Gap (10-20) BUN (7-17) mg/dl Creatinine (0.7-1.2) mg/dL Est GFR ( Amer) Est GFR (Non-Af Amer) POC Glucose (mg/dL) 153 H 235 H (65-110) mg/dL Random Glucose (65-105) mg/dL Serum Osmolality (272-300) mosm/kg Calcium (8.4-10.2) mg/dL Phosphorus (2.5-4.5) mg/dl Magnesium (1.6-2.3) MG/DL Total Bilirubin (0.2-1.3) mg/dl AST (14-36) U/L ALT (9-52) U/L Alkaline Phosphatase (38-126) U/L Total Creatine Kinase (30-135) U/L Total Protein (6.3-8.2) G/DL Albumin (3.5-5.0) g/dL Globulin (2.2-3.9) gm/dL Albumin/Globulin Ratio (1.0-2.1) TSH 3rd Generation (0.46-4.68) mIU/ML Urine Color Cancelled Urine Clarity Cancelled Urine pH Cancelled Ur Specific [place] Cancelled Urine Protein Cancelled Urine Glucose (UA) Cancelled Urine Ketones Cancelled Urine Blood Cancelled Urine Nitrate Cancelled Urine Bilirubin Cancelled Urine Urobilinogen Cancelled Ur Leukocyte Esterase Cancelled Urine RBC (Auto) Cancelled Urine WBC Clumps (Auto) Cancelled Urine Microscopic WBC Cancelled Ur Squamous Epith Cells Cancelled Ur Transition Epith Cell Cancelled Ur Renal Epithelial Cell Cancelled Calcium Carbonate Cryst Cancelled Calcium Phos Yesenia (Auto) Cancelled Calcium Oxalate Crystal Cancelled Leucine Crystals Cancelled Cystine Crystals Cancelled Uric Acid Crystals Cancelled Triple Phos Crystals Cancelled Tyrosine Crystals Cancelled Other Crystals Cancelled Amorphous Sediment Cancelled Urine Bacteria Cancelled Epithelial Casts (Auto) Cancelled Fatty Casts Cancelled Hyaline Casts Cancelled Granular Casts (Auto) Cancelled Waxy Casts Cancelled Broad Casts Cancelled RBC Casts Cancelled WBC Casts Cancelled Other Casts Cancelled Urine Trichomonas Cancelled Ur Yeast w Hyphae Cancelled Urine Yeast (Budding) Cancelled Urine Sperm (Auto) Cancelled Ur Oval Fat Bodies Auto Cancelled Urine Osmolality (300-1000) mosm/kg Ur Random Sodium meq/L Ur Random Potassium mmol/L Stool Occult Blood (NEGATIVE) Urine Opiates Screen (NEGATIVE) Urine Methadone Screen (NEGATIVE) Ur Barbiturates Screen (NEGATIVE) Ur Phencyclidine Scrn (NEGATIVE) Ur Amphetamines Screen (NEGATIVE) U Benzodiazepines Scrn (NEGATIVE) U Oth Cocaine Metabols (NEGATIVE) U Cannabinoids Screen (NEGATIVE) 05/10/17 Range/Units 04:45 WBC (4.8-10.8) K/uL RBC (3.80-5.20) Mil/uL Hgb (12.0-16.0) g/dL Hct (34.0-47.0) % MCV (81.0-99.0) fl MCH (27.0-31.0) pg MCHC (33.0-37.0) g/dL RDW (11.5-14.5) % Plt Count (130-400) K/uL MPV (7.2-11.7) fl Neut % (Auto) (50.0-75.0) % Lymph % (Auto) (20.0-40.0) % [place] % (Auto) (0.0-10.0) % Eos % (Auto) (0.0-4.0) % Baso % (Auto) (0.0-2.0) % Neut # (1.8-7.0) K/uL Lymph # (1.0-4.3) K/uL [place] # (0.0-0.8) K/uL Eos # (0.0-0.7) K/uL Baso # (0.0-0.2) K/uL Sodium 128 L (132-148) mmol/l Potassium 4.5 (3.6-5.0) MMOL/L Chloride 99 (98-107) mmol/L Carbon Dioxide 16 L (22-30) mmol/L Anion Gap 18 (10-20) BUN 122 H* (7-17) mg/dl Creatinine 4.9 H (0.7-1.2) mg/dL Est GFR ( Amer) 10 Est GFR (Non-Af Amer) 9 POC Glucose (mg/dL) (65-110) mg/dL Random Glucose 186 H (65-105) mg/dL Serum Osmolality (272-300) mosm/kg Calcium 8.5 (8.4-10.2) mg/dL Phosphorus (2.5-4.5) mg/dl Magnesium (1.6-2.3) MG/DL Total Bilirubin 0.3 (0.2-1.3) mg/dl AST 20 (14-36) U/L ALT 28 (9-52) U/L Alkaline Phosphatase 126 (38-126) U/L Total Creatine Kinase (30-135) U/L Total Protein 6.6 (6.3-8.2) G/DL Albumin 3.3 L (3.5-5.0) g/dL Globulin 3.3 (2.2-3.9) gm/dL Albumin/Globulin Ratio 1.0 (1.0-2.1) TSH 3rd Generation 1.46 (0.46-4.68) mIU/ML Urine Color Urine Clarity Urine pH Ur Specific [place] Urine Protein Urine Glucose (UA) Urine Ketones Urine Blood Urine Nitrate Urine Bilirubin Urine Urobilinogen Ur Leukocyte Esterase Urine RBC (Auto) Urine WBC Clumps (Auto) Urine Microscopic WBC Ur Squamous Epith Cells Ur Transition Epith Cell Ur Renal Epithelial Cell Calcium Carbonate Cryst Calcium Phos Yesenia (Auto) Calcium Oxalate Crystal Leucine Crystals Cystine Crystals Uric Acid Crystals Triple Phos Crystals Tyrosine Crystals Other Crystals Amorphous Sediment Urine Bacteria Epithelial Casts (Auto) Fatty Casts Hyaline Casts Granular Casts (Auto) Waxy Casts Broad Casts RBC Casts WBC Casts Other Casts Urine Trichomonas Ur Yeast w Hyphae Urine Yeast (Budding) Urine Sperm (Auto) Ur Oval Fat Bodies Auto Urine Osmolality (300-1000) mosm/kg Ur Random Sodium meq/L Ur Random Potassium mmol/L Stool Occult Blood (NEGATIVE) Urine Opiates Screen (NEGATIVE) Urine Methadone Screen (NEGATIVE) Ur Barbiturates Screen (NEGATIVE) Ur Phencyclidine Scrn (NEGATIVE) Ur Amphetamines Screen (NEGATIVE) U Benzodiazepines Scrn (NEGATIVE) U Oth Cocaine Metabols (NEGATIVE) U Cannabinoids Screen (NEGATIVE) Laboratory Results - last 24 hr 05/10/17 05/10/17 05/10/17 04:45 06:45 11:04 WBC RBC Hgb Hct MCV MCH MCHC RDW Plt Count MPV Neut % (Auto) Lymph % (Auto) [place] % (Auto) Eos % (Auto) Baso % (Auto) Neut # Lymph # [place] # Eos # Baso # Sodium 128 L Potassium 4.5 Chloride 99 Carbon Dioxide 16 L Anion Gap 18 BUN 122 H* Creatinine 4.9 H Est GFR ( Amer) 10 Est GFR (Non-Af Amer) 9 POC Glucose (mg/dL) 235 H Random Glucose 186 H Serum Osmolality Calcium 8.5 Phosphorus Magnesium Total Bilirubin 0.3 AST 20 ALT 28 Alkaline Phosphatase 126 Total Creatine Kinase Total Protein 6.6 Albumin 3.3 L Globulin 3.3 Albumin/Globulin Ratio 1.0 TSH 3rd Generation 1.46 Urine Color Cancelled Urine Clarity Cancelled Urine pH Cancelled Ur Specific [place] Cancelled Urine Protein Cancelled Urine Glucose (UA) Cancelled Urine Ketones Cancelled Urine Blood Cancelled Urine Nitrate Cancelled Urine Bilirubin Cancelled Urine Urobilinogen Cancelled Ur Leukocyte Esterase Cancelled Urine RBC (Auto) Cancelled Urine WBC Clumps (Auto) Cancelled Urine Microscopic WBC Cancelled Ur Squamous Epith Cells Cancelled Ur Transition Epith Cell Cancelled Ur Renal Epithelial Cell Cancelled Calcium Carbonate Cryst Cancelled Calcium Phos Yesenia (Auto) Cancelled Calcium Oxalate Crystal Cancelled Leucine Crystals Cancelled Cystine Crystals Cancelled Uric Acid Crystals Cancelled Triple Phos Crystals Cancelled Tyrosine Crystals Cancelled Other Crystals Cancelled Amorphous Sediment Cancelled Urine Bacteria Cancelled Epithelial Casts (Auto) Cancelled Fatty Casts Cancelled Hyaline Casts Cancelled Granular Casts (Auto) Cancelled Waxy Casts Cancelled Broad Casts Cancelled RBC Casts Cancelled WBC Casts Cancelled Other Casts Cancelled Urine Trichomonas Cancelled Ur Yeast w Hyphae Cancelled Urine Yeast (Budding) Cancelled Urine Sperm (Auto) Cancelled Ur Oval Fat Bodies Auto Cancelled Urine Osmolality Ur Random Sodium Ur Random Potassium Stool Occult Blood Urine Opiates Screen Urine Methadone Screen Ur Barbiturates Screen Ur Phencyclidine Scrn Ur Amphetamines Screen U Benzodiazepines Scrn U Oth Cocaine Metabols U Cannabinoids Screen 05/10/17 05/10/17 05/10/17 16:05 17:30 18:20 WBC RBC Hgb Hct MCV MCH MCHC RDW Plt Count MPV Neut % (Auto) Lymph % (Auto) [place] % (Auto) Eos % (Auto) Baso % (Auto) Neut # Lymph # [place] # Eos # Baso # Sodium Potassium Chloride Carbon Dioxide Anion Gap BUN Creatinine Est GFR ( Amer) Est GFR (Non-Af Amer) POC Glucose (mg/dL) 153 H Random Glucose Serum Osmolality Calcium Phosphorus Magnesium Total Bilirubin AST ALT Alkaline Phosphatase Total Creatine Kinase Total Protein Albumin Globulin Albumin/Globulin Ratio TSH 3rd Generation Urine Color Urine Clarity Urine pH Ur Specific [place] Urine Protein Urine Glucose (UA) Urine Ketones Urine Blood Urine Nitrate Urine Bilirubin Urine Urobilinogen Ur Leukocyte Esterase Urine RBC (Auto) Urine WBC Clumps (Auto) Urine Microscopic WBC Ur Squamous Epith Cells Ur Transition Epith Cell Ur Renal Epithelial Cell Calcium Carbonate Cryst Calcium Phos Yesenia (Auto) Calcium Oxalate Crystal Leucine Crystals Cystine Crystals Uric Acid Crystals Triple Phos Crystals Tyrosine Crystals Other Crystals Amorphous Sediment Urine Bacteria Epithelial Casts (Auto) Fatty Casts Hyaline Casts Granular Casts (Auto) Waxy Casts Broad Casts RBC Casts WBC Casts Other Casts Urine Trichomonas Ur Yeast w Hyphae Urine Yeast (Budding) Urine Sperm (Auto) Ur Oval Fat Bodies Auto Urine Osmolality 334 Ur Random Sodium 58 Ur Random Potassium 16.1 Stool Occult Blood Negative Urine Opiates Screen Urine Methadone Screen Ur Barbiturates Screen Ur Phencyclidine Scrn Ur Amphetamines Screen U Benzodiazepines Scrn U Oth Cocaine Metabols U Cannabinoids Screen 05/10/17 05/10/17 05/10/17 18:28 19:23 20:16 WBC RBC Hgb Hct MCV MCH MCHC RDW Plt Count MPV Neut % (Auto) Lymph % (Auto) [place] % (Auto) Eos % (Auto) Baso % (Auto) Neut # Lymph # [place] # Eos # Baso # Sodium 132 Potassium 4.3 Chloride 105 Carbon Dioxide 17 L Anion Gap 14 BUN 107 H* Creatinine 4.3 H Est GFR ( Amer) 12 Est GFR (Non-Af Amer) 10 POC Glucose (mg/dL) 174 H Random Glucose 201 H Serum Osmolality Calcium 8.2 L Phosphorus Magnesium Total Bilirubin AST ALT Alkaline Phosphatase Total Creatine Kinase Total Protein Albumin Globulin Albumin/Globulin Ratio TSH 3rd Generation Urine Color Yellow Urine Clarity Turbid Urine pH 6.0 Ur Specific [place] 1.012 Urine Protein 100 Urine Glucose (UA) 50 Urine Ketones Negative Urine Blood Large Urine Nitrate Negative Urine Bilirubin Negative Urine Urobilinogen 0.2-1.0 Ur Leukocyte Esterase Mod Urine RBC (Auto) 186 H Urine WBC Clumps (Auto) Mod H Urine Microscopic WBC 2093 H Ur Squamous Epith Cells Ur Transition Epith Cell Ur Renal Epithelial Cell Calcium Carbonate Cryst Calcium Phos Yesenia (Auto) Calcium Oxalate Crystal Leucine Crystals Cystine Crystals Uric Acid Crystals Triple Phos Crystals Tyrosine Crystals Other Crystals Amorphous Sediment Urine Bacteria Many H Epithelial Casts (Auto) Fatty Casts Hyaline Casts Granular Casts (Auto) Waxy Casts Broad Casts RBC Casts WBC Casts Other Casts Urine Trichomonas Ur Yeast w Hyphae Urine Yeast (Budding) Urine Sperm (Auto) Ur Oval Fat Bodies Auto Urine Osmolality Ur Random Sodium Ur Random Potassium Stool Occult Blood Urine Opiates Screen Urine Methadone Screen Ur Barbiturates Screen Ur Phencyclidine Scrn Ur Amphetamines Screen U Benzodiazepines Scrn U Oth Cocaine Metabols U Cannabinoids Screen 05/10/17 05/10/17 05/10/17 22:59 23:36 23:36 WBC RBC Hgb Hct MCV MCH MCHC RDW Plt Count MPV Neut % (Auto) Lymph % (Auto) [place] % (Auto) Eos % (Auto) Baso % (Auto) Neut # Lymph # [place] # Eos # Baso # Sodium Potassium Chloride Carbon Dioxide Anion Gap BUN Creatinine Est GFR ( Amer) Est GFR (Non-Af Amer) POC Glucose (mg/dL) 257 H Random Glucose Serum Osmolality Calcium Phosphorus Magnesium Total Bilirubin AST ALT Alkaline Phosphatase Total Creatine Kinase Total Protein Albumin Globulin Albumin/Globulin Ratio TSH 3rd Generation Urine Color Red Urine Clarity Cloudy Urine pH 6.0 Ur Specific [place] 1.017 Urine Protein >=500 Urine Glucose (UA) 50 Urine Ketones Negative Urine Blood Moderate Urine Nitrate Negative Urine Bilirubin Negative Urine Urobilinogen 0.2-1.0 Ur Leukocyte Esterase Large Urine RBC (Auto) 1 Urine WBC Clumps (Auto) Urine Microscopic WBC 1 Ur Squamous Epith Cells Ur Transition Epith Cell Ur Renal Epithelial Cell Calcium Carbonate Cryst Calcium Phos Yesenia (Auto) Calcium Oxalate Crystal Leucine Crystals Cystine Crystals Uric Acid Crystals Triple Phos Crystals Tyrosine Crystals Other Crystals Amorphous Sediment Urine Bacteria Epithelial Casts (Auto) Fatty Casts Hyaline Casts Granular Casts (Auto) Waxy Casts Broad Casts RBC Casts WBC Casts Other Casts Urine Trichomonas Ur Yeast w Hyphae Urine Yeast (Budding) Urine Sperm (Auto) Ur Oval Fat Bodies Auto Urine Osmolality Ur Random Sodium 64 Ur Random Potassium 13.0 Stool Occult Blood Urine Opiates Screen Negative Urine Methadone Screen Negative Ur Barbiturates Screen Negative Ur Phencyclidine Scrn Negative Ur Amphetamines Screen Negative U Benzodiazepines Scrn Negative U Oth Cocaine Metabols Negative U Cannabinoids Screen Negative 05/11/17 05/11/17 05/11/17 05:56 08:00 08:00 WBC 7.9 RBC 3.92 Hgb 10.2 L Hct 30.9 L MCV 78.8 L MCH 26.0 L MCHC 32.9 L RDW 14.6 H Plt Count 231 MPV 6.9 L Neut % (Auto) 63.1 Lymph % (Auto) 25.3 [place] % (Auto) 9.9 Eos % (Auto) 1.4 Baso % (Auto) 0.3 Neut # 5.0 Lymph # 2.0 [place] # 0.8 Eos # 0.1 Baso # 0.0 Sodium 136 Potassium 4.4 Chloride 109 H Carbon Dioxide 18 L Anion Gap 13 BUN 89 H Creatinine 3.6 H Est GFR ( Amer) 15 Est GFR (Non-Af Amer) 12 POC Glucose (mg/dL) 343 H Random Glucose 267 H Serum Osmolality Calcium 7.9 L Phosphorus 4.2 Magnesium 2.1 Total Bilirubin < 0.1 L AST 21 ALT 20 Alkaline Phosphatase 99 Total Creatine Kinase 23 L Total Protein 5.9 L Albumin 2.8 L Globulin 3.1 Albumin/Globulin Ratio 0.9 L TSH 3rd Generation Urine Color Urine Clarity Urine pH Ur Specific [place] Urine Protein Urine Glucose (UA) Urine Ketones Urine Blood Urine Nitrate Urine Bilirubin Urine Urobilinogen Ur Leukocyte Esterase Urine RBC (Auto) Urine WBC Clumps (Auto) Urine Microscopic WBC Ur Squamous Epith Cells Ur Transition Epith Cell Ur Renal Epithelial Cell Calcium Carbonate Cryst Calcium Phos Yesenia (Auto) Calcium Oxalate Crystal Leucine Crystals Cystine Crystals Uric Acid Crystals Triple Phos Crystals Tyrosine Crystals Other Crystals Amorphous Sediment Urine Bacteria Epithelial Casts (Auto) Fatty Casts Hyaline Casts Granular Casts (Auto) Waxy Casts Broad Casts RBC Casts WBC Casts Other Casts Urine Trichomonas Ur Yeast w Hyphae Urine Yeast (Budding) Urine Sperm (Auto) Ur Oval Fat Bodies Auto Urine Osmolality Ur Random Sodium Ur Random Potassium Stool Occult Blood Urine Opiates Screen Urine Methadone Screen Ur Barbiturates Screen Ur Phencyclidine Scrn Ur Amphetamines Screen U Benzodiazepines Scrn U Oth Cocaine Metabols U Cannabinoids Screen 05/11/17 08:00 WBC RBC Hgb Hct MCV MCH MCHC RDW Plt Count MPV Neut % (Auto) Lymph % (Auto) [place] % (Auto) Eos % (Auto) Baso % (Auto) Neut # Lymph # [place] # Eos # Baso # Sodium Potassium Chloride Carbon Dioxide Anion Gap BUN Creatinine Est GFR ( Amer) Est GFR (Non-Af Amer) POC Glucose (mg/dL) Random Glucose Serum Osmolality 317 H Calcium Phosphorus Magnesium Total Bilirubin AST ALT Alkaline Phosphatase Total Creatine Kinase Total Protein Albumin Globulin Albumin/Globulin Ratio TSH 3rd Generation Urine Color Urine Clarity Urine pH Ur Specific [place] Urine Protein Urine Glucose (UA) Urine Ketones Urine Blood Urine Nitrate Urine Bilirubin Urine Urobilinogen Ur Leukocyte Esterase Urine RBC (Auto) Urine WBC Clumps (Auto) Urine Microscopic WBC Ur Squamous Epith Cells Ur Transition Epith Cell Ur Renal Epithelial Cell Calcium Carbonate Cryst Calcium Phos [place] (Auto) Calcium Oxalate Crystal Leucine Crystals Cystine Crystals Uric Acid Crystals Triple Phos Crystals Tyrosine Crystals Other Crystals Amorphous Sediment Urine Bacteria Epithelial Casts (Auto) Fatty Casts Hyaline Casts Granular Casts (Auto) Waxy Casts Broad Casts RBC Casts WBC Casts Other Casts Urine Trichomonas Ur Yeast w Hyphae Urine Yeast (Budding) Urine Sperm (Auto) Ur Oval Fat Bodies Auto Urine Osmolality Ur Random Sodium Ur Random Potassium Stool Occult Blood Urine Opiates Screen Urine Methadone Screen Ur Barbiturates Screen Ur Phencyclidine Scrn Ur Amphetamines Screen U Benzodiazepines Scrn U Oth Cocaine Metabols U Cannabinoids Screen Fingerstick Blood Sugar Results: 343 Review of Systems - Review of Systems All systems: reviewed and no additional remarkable complaints except (as above.) Critical Care Progress Note - Nutrition Nutrition: Nutrition Category Date Time Status Renal Diet [DIET] Diets 05/10/17 Dinner Active
[2017-05-11] MEDS ORDERED: Sodium Chloride 0.9% 500 ML IV ONE (16:52)
[2017-05-11] MEDS: Sodium Chloride 0.9% 500 ML IV SCH ×3 (17:15→22:45)
--- NOTE | 2017-05-11 19:09 | CP.PCM.PN ---
Subjective - Date & Time of Evaluation Date of Evaluation: 05/11/17 Time of Evaluation: 13:00 - Subjective Subjective: SEEN ON RENAL F/U IN ICU FULLY A@O .. IN NAD APPETITE COMING BACK GRADUALLY S/P CYSTOSCOPE AND ADELAIDA URETERAL STENTS URINE IN [place]AN CATH TURBID .. RENAL FUNCTION , ACIDOSIS AND LYTES ARE ALL GETTING BETTER ON IVF Objective - Vital Signs/Intake and Output Vital Signs (last 24 hours): Temp Pulse Resp BP Pulse Ox 97.2 F L 74 20 98/57 L 91 L 05/11/17 16:00 05/11/17 18:00 05/11/17 18:00 05/11/17 18:00 05/11/17 18:00 Intake and Output: 05/11/17 05/12/17 18:59 06:59 Intake Total 2050 Output Total 1200 Balance 850 - Medications Medications: Current Medications Acetaminophen (Tylenol 325mg Tab) 650 mg PO Q6 PRN PRN Reason: Other Last Admin: 05/11/17 12:10 Dose: 650 mg Heparin Sodium (Porcine) (Heparin) 5,000 units SC Q12 [facility] PRN Reason: Protocol Ceftriaxone Sodium (Rocephin Iv 1 Gm Duplex) 50 mls @ 50 mls/hr IVPB DAILY [facility] PRN Reason: Protocol Last Admin: 05/11/17 08:30 Dose: 50 mls/hr Sodium Chloride (Sodium Chloride 0.9%) 500 mls @ 175 mls/hr IV .Q2H52M [facility] Last Admin: 05/11/17 17:15 Dose: 175 mls/hr Insulin Human Regular (Humulin R) 0 units SC ACCU-CHECK [facility] PRN Reason: Protocol Memantine (Namenda) 5 mg PO DAILY [facility] Last Admin: 05/11/17 08:30 Dose: 5 mg Ondansetron HCl (Zofran Inj) 4 mg IVP Q6H PRN PRN Reason: Nausea/Vomiting Pantoprazole Sodium (Protonix Inj) 40 mg IVP DAILY [facility] Last Admin: 05/11/17 08:30 Dose: 40 mg Paroxetine HCl (Paxil) 10 mg PO DAILY [facility] Last Admin: 05/11/17 08:30 Dose: 10 mg Saccharomyces Boulardii (Florastor) 250 mg PO BID [facility] Last Admin: 05/11/17 17:13 Dose: 250 mg Sevelamer HCl (Renagel) 800 mg PO TID [facility] Last Admin: 05/11/17 17:12 Dose: 800 mg - Labs Labs: 05/11/17 08:00 05/11/17 08:00 PT 11.7 Seconds (9.8-13.1) 05/08/17 23:16 INR 1.0 (0.9-1.2) 05/08/17 23:16 APTT 32.4 Seconds (25.6-37.1) 05/08/17 23:16 Assessment and Plan - Assessment and Plan (Free Text) Assessment: A ON CKD .. RENAL FUNCTION BETTER ELECROLYTES ABNORMALITIES .. BETTER \ MET ACIDOSIS .. BETTER S/P ADELAIDA STENTS .. AND DUNCAN CATH ANEMIA OF CKD .. AND DILUTIONAL .. WILL WATCH P C/O CURRENT IVF C/O IVAB .. PROBABLY UTI C/O CURRENT CARE NO NEED FOR DIALYTIC INTERVENTION PT USUALLY BOUNCE BACK .. WILL KEEP A CLOSE EYE
[2017-05-12] MEDS: Sodium Chloride 0.9% 500 ML IV SCH ×7 (01:40→19:25)
[2017-05-12 05:17] LABS: HEMATOCRIT 30.2 % (34.0-47.0); MEAN CORPUSCULAR HEMOGLOBIN 25.9 pg (27.0-31.0); MEAN CORPUSCULAR HGB CONC 32.3 g/dL (33.0-37.0); RED CELL DISTRIBUTION WIDTH 14.8 % (11.5-14.5); WHITE BLOOD COUNT 9.7 K/uL (4.8-10.8)
[2017-05-12 05:21] LABS: ALB/GLOB RATIO 0.8 (1.0-2.1); BILIRUBIN,TOTAL 0.3 mg/dl (0.2-1.3); CALCIUM 7.6 mg/dL (8.4-10.2); TOTAL PROTEIN 5.5 G/DL (6.3-8.2)
[2017-05-12] MEDS: Insulin Regular 100 units/ml SC SCH ×4 (06:05→23:34)
--- NOTE | 2017-05-12 07:52 | CP.CCUPN ---
CCU Subjective - Physician Review Subjective (Free Text): Awake, remains appropriately responsive, no overall distress. No fever spikes. No recurrent vomiting nor c/o nausea. Excellent urine output since stent placement. Other vitals and I/O's reviewed. Improvement in BP levels noted. ROS: No other pertinent negs or positives on 10+ system review. PMSFH: All Nursing and physician documentation reviewed to date; no new pertinent info noted relevant to current medical problems. MAJOR PROBLEMS: 1. s/p Gapped Metabolic Acidosis with normal Lactates on Admission; 2 CKD with uremic BUN level, also DKA is a possibility. 2. 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 3. Coag neg Staph Bacteremia 4. UGI Bleed: not active 5. Hypovolemic Hyponatremia- resolved 6. Psych Disorder with Major Depression PLAN: 1. Non-gapped metab acidosis now, 2' RTA? Renal function has dramatically improved post ureteral stents and IVF hydration. 2. Needs PICC line due to extremely poor peripheral IV access. Would then repeat BCs and consider ECHO to r/o any valvular vegetative disease. 3. Re-dose / resume vancomycin and follow serial levels until renal function has stabilized. 4. Stable for Tele bed. CCU Objective - Vital Signs / Intake & Output Vital Signs (Last 4 hours): Vital Signs Temp Pulse Resp BP Pulse Ox 05/12/17 05:00 99.0 F 70 16 110/60 100 Intake and Output (Last 8hrs): Intake & Output 05/11/17 05/12/17 05/12/17 22:59 06:59 14:59 Intake Total 1500 1400 Output Total 950 1425 Balance 550 -25 Intake: IV 1500 1400 Output: Urine 950 1425 Urethral (Adams) 150 1425 Urine, Voided 800 - Physical Exam Head: Positive for: Normocephalic Pupils: Positive for: PERRL Extroacular Muscles: Positive for: EOMI Conjunctiva: Positive for: Normal. Negative for: Icteric Mouth: Positive for: Dry Neck: Negative for: Meningeal Signs, JVD Respiratory/Chest: Positive for: Clear to Auscultation. Negative for: Accessory Muscle Use, Wheezes Cardiovascular: Positive for: Regular Rate and Rhythm, Normal S1, S2. Negative for: Murmurs, Rub Abdomen: Positive for: Normal Bowel Sounds. Negative for: Tenderness, Distention, Mass/Organomegaly Upper Extremity: Positive for: Edema Lower Extremity: Positive for: NORMAL PULSES. Negative for: Edema, CALF TENDERNESS, Cyanosis Neurological: Positive for: GCS=15, Speech Normal, Motor Func Grossly Intact, Normal Sensory Function, Norm Deep Tendon Reflexes Skin: Positive for: Warm, Dry. Negative for: Rashes Psychiatric: Positive for: Alert, Oriented x 3, Depressed Mood - Medications Active Medications: Active Medications Generic Name Dose Route Start Last Admin Trade Name Freq PRN Reason Stop Dose Admin Acetaminophen 650 mg 05/10/17 21:08 05/11/17 12:10 Tylenol 325mg Tab PO 650 mg Q6 PRN Administration Other Heparin Sodium (Porcine) 5,000 units 05/11/17 21:00 05/11/17 21:14 Heparin SC 5,000 units Q12 [facility] Administration Protocol Ceftriaxone Sodium 50 mls @ 50 mls/hr 05/09/17 09:00 05/11/17 08:30 Rocephin Iv 1 Gm Duplex IVPB 50 mls/hr DAILY [facility] Administration Protocol Sodium Chloride 500 mls @ 175 mls/hr 05/11/17 17:00 05/12/17 04:30 Sodium Chloride 0.9% IV 175 mls/hr .Q2H52M [facility] Administration Insulin Human Regular 0 units 05/11/17 17:38 05/12/17 06:05 Humulin R SC Not Given ACCU-CHECK [facility] Protocol Memantine 5 mg 05/10/17 09:00 05/11/17 08:30 Namenda PO 5 mg DAILY [facility] Administration Ondansetron HCl 4 mg 05/09/17 02:33 Zofran Inj IVP Q6H PRN Nausea/Vomiting Pantoprazole Sodium 40 mg 05/09/17 09:00 05/11/17 08:30 Protonix Inj IVP 40 mg DAILY [facility] Administration Paroxetine HCl 10 mg 05/11/17 09:00 05/11/17 08:30 Paxil PO 10 mg DAILY [facility] Administration Saccharomyces Boulardii 250 mg 05/10/17 17:00 05/11/17 17:13 Florastor PO 250 mg BID [facility] Administration Sevelamer HCl 800 mg 05/09/17 09:00 05/11/17 17:12 Renagel PO 800 mg TID [facility] Administration - Patient Studies Lab Studies: Lab Studies 05/12/17 05/12/17 05/12/17 Range/Units 05:35 04:30 04:30 WBC 9.7 (4.8-10.8) K/uL RBC 3.78 L (3.80-5.20) Mil/uL Hgb 9.8 L (12.0-16.0) g/dL Hct 30.2 L (34.0-47.0) % MCV 80.0 L (81.0-99.0) fl MCH 25.9 L (27.0-31.0) pg MCHC 32.3 L (33.0-37.0) g/dL RDW 14.8 H (11.5-14.5) % Plt Count 221 (130-400) K/uL MPV (7.2-11.7) fl Neut % (Auto) (50.0-75.0) % Lymph % (Auto) (20.0-40.0) % [place] % (Auto) (0.0-10.0) % Eos % (Auto) (0.0-4.0) % Baso % (Auto) (0.0-2.0) % Neut # (1.8-7.0) K/uL Lymph # (1.0-4.3) K/uL [place] # (0.0-0.8) K/uL Eos # (0.0-0.7) K/uL Baso # (0.0-0.2) K/uL Sodium 138 (132-148) mmol/l Potassium 4.0 (3.6-5.0) MMOL/L Chloride 114 H (98-107) mmol/L Carbon Dioxide 16 L (22-30) mmol/L Anion Gap 12 (10-20) BUN 61 H (7-17) mg/dl Creatinine 2.9 H (0.7-1.2) mg/dL Est GFR ( Amer) 19 Est GFR (Non-Af Amer) 16 POC Glucose (mg/dL) 145 H (65-110) mg/dL Random Glucose 134 H (65-105) mg/dL Serum Osmolality (272-300) mosm/kg Calcium 7.6 L (8.4-10.2) mg/dL Phosphorus (2.5-4.5) mg/dl Magnesium (1.6-2.3) MG/DL Total Bilirubin 0.3 (0.2-1.3) mg/dl AST 14 D (14-36) U/L ALT 22 (9-52) U/L Alkaline Phosphatase 94 (38-126) U/L Total Creatine Kinase (30-135) U/L Total Protein 5.5 L (6.3-8.2) G/DL Albumin 2.5 L (3.5-5.0) g/dL Globulin 3.0 (2.2-3.9) gm/dL Albumin/Globulin Ratio 0.8 L (1.0-2.1) Random Vancomycin ug/mL 05/12/17 05/11/17 05/11/17 Range/Units 04:30 21:27 17:02 WBC (4.8-10.8) K/uL RBC (3.80-5.20) Mil/uL Hgb (12.0-16.0) g/dL Hct (34.0-47.0) % MCV (81.0-99.0) fl MCH (27.0-31.0) pg MCHC (33.0-37.0) g/dL RDW (11.5-14.5) % Plt Count (130-400) K/uL MPV (7.2-11.7) fl Neut % (Auto) (50.0-75.0) % Lymph % (Auto) (20.0-40.0) % [place] % (Auto) (0.0-10.0) % Eos % (Auto) (0.0-4.0) % Baso % (Auto) (0.0-2.0) % Neut # (1.8-7.0) K/uL Lymph # (1.0-4.3) K/uL [place] # (0.0-0.8) K/uL Eos # (0.0-0.7) K/uL Baso # (0.0-0.2) K/uL Sodium (132-148) mmol/l Potassium (3.6-5.0) MMOL/L Chloride (98-107) mmol/L Carbon Dioxide (22-30) mmol/L Anion Gap (10-20) BUN (7-17) mg/dl Creatinine (0.7-1.2) mg/dL Est GFR ( Amer) Est GFR (Non-Af Amer) POC Glucose (mg/dL) 220 H 335 H (65-110) mg/dL Random Glucose (65-105) mg/dL Serum Osmolality (272-300) mosm/kg Calcium (8.4-10.2) mg/dL Phosphorus (2.5-4.5) mg/dl Magnesium (1.6-2.3) MG/DL Total Bilirubin (0.2-1.3) mg/dl AST (14-36) U/L ALT (9-52) U/L Alkaline Phosphatase (38-126) U/L Total Creatine Kinase (30-135) U/L Total Protein (6.3-8.2) G/DL Albumin (3.5-5.0) g/dL Globulin (2.2-3.9) gm/dL Albumin/Globulin Ratio (1.0-2.1) Random Vancomycin 9.2 ug/mL 05/11/17 05/11/17 05/11/17 Range/Units 11:16 08:00 08:00 WBC (4.8-10.8) K/uL RBC (3.80-5.20) Mil/uL Hgb (12.0-16.0) g/dL Hct (34.0-47.0) % MCV (81.0-99.0) fl MCH (27.0-31.0) pg MCHC (33.0-37.0) g/dL RDW (11.5-14.5) % Plt Count (130-400) K/uL MPV (7.2-11.7) fl Neut % (Auto) (50.0-75.0) % Lymph % (Auto) (20.0-40.0) % [place] % (Auto) (0.0-10.0) % Eos % (Auto) (0.0-4.0) % Baso % (Auto) (0.0-2.0) % Neut # (1.8-7.0) K/uL Lymph # (1.0-4.3) K/uL [place] # (0.0-0.8) K/uL Eos # (0.0-0.7) K/uL Baso # (0.0-0.2) K/uL Sodium 136 (132-148) mmol/l Potassium 4.4 (3.6-5.0) MMOL/L Chloride 109 H (98-107) mmol/L Carbon Dioxide 18 L (22-30) mmol/L Anion Gap 13 (10-20) BUN 89 H (7-17) mg/dl Creatinine 3.6 H (0.7-1.2) mg/dL Est GFR ( Amer) 15 Est GFR (Non-Af Amer) 12 POC Glucose (mg/dL) 360 H (65-110) mg/dL Random Glucose 267 H (65-105) mg/dL Serum Osmolality 317 H (272-300) mosm/kg Calcium 7.9 L (8.4-10.2) mg/dL Phosphorus 4.2 (2.5-4.5) mg/dl Magnesium 2.1 (1.6-2.3) MG/DL Total Bilirubin < 0.1 L (0.2-1.3) mg/dl AST 21 (14-36) U/L ALT 20 (9-52) U/L Alkaline Phosphatase 99 (38-126) U/L Total Creatine Kinase 23 L (30-135) U/L Total Protein 5.9 L (6.3-8.2) G/DL Albumin 2.8 L (3.5-5.0) g/dL Globulin 3.1 (2.2-3.9) gm/dL Albumin/Globulin Ratio 0.9 L (1.0-2.1) Random Vancomycin ug/mL 05/11/17 Range/Units 08:00 WBC 7.9 (4.8-10.8) K/uL RBC 3.92 (3.80-5.20) Mil/uL Hgb 10.2 L (12.0-16.0) g/dL Hct 30.9 L (34.0-47.0) % MCV 78.8 L (81.0-99.0) fl MCH 26.0 L (27.0-31.0) pg MCHC 32.9 L (33.0-37.0) g/dL RDW 14.6 H (11.5-14.5) % Plt Count 231 (130-400) K/uL MPV 6.9 L (7.2-11.7) fl Neut % (Auto) 63.1 (50.0-75.0) % Lymph % (Auto) 25.3 (20.0-40.0) % [place] % (Auto) 9.9 (0.0-10.0) % Eos % (Auto) 1.4 (0.0-4.0) % Baso % (Auto) 0.3 (0.0-2.0) % Neut # 5.0 (1.8-7.0) K/uL Lymph # 2.0 (1.0-4.3) K/uL [place] # 0.8 (0.0-0.8) K/uL Eos # 0.1 (0.0-0.7) K/uL Baso # 0.0 (0.0-0.2) K/uL Sodium (132-148) mmol/l Potassium (3.6-5.0) MMOL/L Chloride (98-107) mmol/L Carbon Dioxide (22-30) mmol/L Anion Gap (10-20) BUN (7-17) mg/dl Creatinine (0.7-1.2) mg/dL Est GFR ( Amer) Est GFR (Non-Af Amer) POC Glucose (mg/dL) (65-110) mg/dL Random Glucose (65-105) mg/dL Serum Osmolality (272-300) mosm/kg Calcium (8.4-10.2) mg/dL Phosphorus (2.5-4.5) mg/dl Magnesium (1.6-2.3) MG/DL Total Bilirubin (0.2-1.3) mg/dl AST (14-36) U/L ALT (9-52) U/L Alkaline Phosphatase (38-126) U/L Total Creatine Kinase (30-135) U/L Total Protein (6.3-8.2) G/DL Albumin (3.5-5.0) g/dL Globulin (2.2-3.9) gm/dL Albumin/Globulin Ratio (1.0-2.1) Random Vancomycin ug/mL Laboratory Results - last 24 hr 05/11/17 05/11/17 05/11/17 08:00 08:00 08:00 WBC 7.9 RBC 3.92 Hgb 10.2 L Hct 30.9 L MCV 78.8 L MCH 26.0 L MCHC 32.9 L RDW 14.6 H Plt Count 231 MPV 6.9 L Neut % (Auto) 63.1 Lymph % (Auto) 25.3 [place] % (Auto) 9.9 Eos % (Auto) 1.4 Baso % (Auto) 0.3 Neut # 5.0 Lymph # 2.0 [place] # 0.8 Eos # 0.1 Baso # 0.0 Sodium 136 Potassium 4.4 Chloride 109 H Carbon Dioxide 18 L Anion Gap 13 BUN 89 H Creatinine 3.6 H Est GFR ( Amer) 15 Est GFR (Non-Af Amer) 12 POC Glucose (mg/dL) Random Glucose 267 H Serum Osmolality 317 H Calcium 7.9 L Phosphorus 4.2 Magnesium 2.1 Total Bilirubin < 0.1 L AST 21 ALT 20 Alkaline Phosphatase 99 Total Creatine Kinase 23 L Total Protein 5.9 L Albumin 2.8 L Globulin 3.1 Albumin/Globulin Ratio 0.9 L Random Vancomycin 05/11/17 05/11/17 05/11/17 11:16 17:02 21:27 WBC RBC Hgb Hct MCV MCH MCHC RDW Plt Count MPV Neut % (Auto) Lymph % (Auto) [place] % (Auto) Eos % (Auto) Baso % (Auto) Neut # Lymph # [place] # Eos # Baso # Sodium Potassium Chloride Carbon Dioxide Anion Gap BUN Creatinine Est GFR ( Amer) Est GFR (Non-Af Amer) POC Glucose (mg/dL) 360 H 335 H 220 H Random Glucose Serum Osmolality Calcium Phosphorus Magnesium Total Bilirubin AST ALT Alkaline Phosphatase Total Creatine Kinase Total Protein Albumin Globulin Albumin/Globulin Ratio Random Vancomycin 05/12/17 05/12/17 05/12/17 04:30 04:30 04:30 WBC 9.7 RBC 3.78 L Hgb 9.8 L Hct 30.2 L MCV 80.0 L MCH 25.9 L MCHC 32.3 L RDW 14.8 H Plt Count 221 MPV Neut % (Auto) Lymph % (Auto) [place] % (Auto) Eos % (Auto) Baso % (Auto) Neut # Lymph # [place] # Eos # Baso # Sodium 138 Potassium 4.0 Chloride 114 H Carbon Dioxide 16 L Anion Gap 12 BUN 61 H Creatinine 2.9 H Est GFR ( Amer) 19 Est GFR (Non-Af Amer) 16 POC Glucose (mg/dL) Random Glucose 134 H Serum Osmolality Calcium 7.6 L Phosphorus Magnesium Total Bilirubin 0.3 AST 14 D ALT 22 Alkaline Phosphatase 94 Total Creatine Kinase Total Protein 5.5 L Albumin 2.5 L Globulin 3.0 Albumin/Globulin Ratio 0.8 L Random Vancomycin 9.2 05/12/17 05:35 WBC RBC Hgb Hct MCV MCH MCHC RDW Plt Count MPV Neut % (Auto) Lymph % (Auto) [place] % (Auto) Eos % (Auto) Baso % (Auto) Neut # Lymph # [place] # Eos # Baso # Sodium Potassium Chloride Carbon Dioxide Anion Gap BUN Creatinine Est GFR ( Amer) Est GFR (Non-Af Amer) POC Glucose (mg/dL) 145 H Random Glucose Serum Osmolality Calcium Phosphorus Magnesium Total Bilirubin AST ALT Alkaline Phosphatase Total Creatine Kinase Total Protein Albumin Globulin Albumin/Globulin Ratio Random Vancomycin Fingerstick Blood Sugar Results: 145 Review of Systems - Review of Systems All systems: reviewed and no additional remarkable complaints except (as above) Critical Care Progress Note - Nutrition Nutrition: Nutrition Category Date Time Status Renal Diet [DIET] Diets 05/10/17 Dinner Active
[2017-05-12] MEDS: Saccharomyces Boulardi 250 mg Cap PO SCH ×2 (08:25→16:48)
[2017-05-12] MEDS: cefTRIAXone IV 1 gm in Dextros 50 ML IVPB SCH (08:27)
--- NOTE | 2017-05-12 09:19 | CP.PCM.PN ---
Addendum entered and electronically signed by Aquiles Kern MD 05/12/17 17: 14: Patient does not meet SIRS criteria anymore(On admission she did). Bacteremia with coag neg Staph and Yeast UTI, likely present prior to admission, unable to confirm since BCx and UCx results were obtained after admission and patient has no urinary symptoms. She does have Hx of multiple UTI and Urinary yeast infections in prior admissions. Original Note: <Aquiles Kern - Last Filed: 05/12/17 10:07> Subjective - Date & Time of Evaluation Date of Evaluation: 05/12/17 Time of Evaluation: 07:05 - Subjective Subjective: 76 y/o F admitted for acute on CKD and acidosis seen at bedside in not acute distress. Mentally, patient is similar to her baseline today. C/O discomfort about the Adams, denies dysuria, fever, CP, palpitations, SOB, dizziness. Dr Boswell had extensive conversation with the patient this morning regarding her safety, hx of noncompliance and self neglecting. Patient with Hx of multiple admissions to hosp due to self neglecting. She understands but c/w stating that she can take care of herself. Denies SI, HI, hallucinations. Objective - Vital Signs/Intake and Output Vital Signs (last 24 hours): Temp Pulse Resp BP Pulse Ox 98.5 F 68 16 110/57 L 100 05/12/17 08:00 05/12/17 08:00 05/12/17 05:00 05/12/17 08:00 05/12/17 08:00 Intake and Output: 05/12/17 05/12/17 06:59 18:59 Intake Total 2100 Output Total 1675 Balance 425 - Medications Medications: Current Medications Acetaminophen (Tylenol 325mg Tab) 650 mg PO Q6 PRN PRN Reason: Other Last Admin: 05/11/17 12:10 Dose: 650 mg Clotrimazole (Lotrimin 1% Cream) 1 applic TOP BID [facility] Heparin Sodium (Porcine) (Heparin) 5,000 units SC Q12 [facility] PRN Reason: Protocol Last Admin: 05/12/17 08:26 Dose: 5,000 units Ceftriaxone Sodium (Rocephin Iv 1 Gm Duplex) 50 mls @ 50 mls/hr IVPB DAILY [facility] PRN Reason: Protocol Last Admin: 05/12/17 08:27 Dose: 50 mls/hr Sodium Chloride (Sodium Chloride 0.9%) 500 mls @ 175 mls/hr IV .Q2H52M [facility] Last Admin: 05/12/17 07:30 Dose: 175 mls/hr Insulin Human Regular (Humulin R) 0 units SC ACCU-CHECK [facility] PRN Reason: Protocol Last Admin: 05/12/17 06:05 Dose: Not Given Memantine (Namenda) 5 mg PO DAILY [facility] Last Admin: 05/12/17 08:25 Dose: 5 mg Ondansetron HCl (Zofran Inj) 4 mg IVP Q6H PRN PRN Reason: Nausea/Vomiting Pantoprazole Sodium (Protonix Inj) 40 mg IVP DAILY [facility] Last Admin: 05/12/17 08:30 Dose: 40 mg Paroxetine HCl (Paxil) 10 mg PO DAILY [facility] Last Admin: 05/12/17 08:25 Dose: 10 mg Saccharomyces Boulardii (Florastor) 250 mg PO BID [facility] Last Admin: 05/12/17 08:25 Dose: 250 mg Sevelamer HCl (Renagel) 800 mg PO TID [facility] Last Admin: 05/12/17 08:25 Dose: 800 mg - Labs Labs: 05/12/17 04:30 05/12/17 04:30 PT 11.7 Seconds (9.8-13.1) 05/08/17 23:16 INR 1.0 (0.9-1.2) 05/08/17 23:16 APTT 32.4 Seconds (25.6-37.1) 05/08/17 23:16 - Constitutional Appears: Non-toxic, No Acute Distress - Eye Exam Eye Exam: EOMI, PERRL - ENT Exam ENT Exam: Mucous Membranes Moist - Respiratory Exam Respiratory Exam: Clear to Ausculation Bilateral, NORMAL BREATHING PATTERN. absent: Rales - Cardiovascular Exam Cardiovascular Exam: REGULAR RHYTHM, +S1, +S2 - GI/Abdominal Exam GI & Abdominal Exam: Soft, Normal Bowel Sounds. absent: Tenderness - Extremities Exam Extremities Exam: Full ROM, Normal Capillary Refill, Normal Inspection. absent : Calf Tenderness - Neurological Exam Neurological Exam: Alert, Awake. absent: Oriented x3 (Oriented x2) - Psychiatric Exam Psychiatric exam: Normal Mood - Skin Skin Exam: Normal Color, Warm Additional comments: Mild erythema B/L buttocks. no pressure ulcers. Assessment and Plan - Assessment and Plan (Free Text) Assessment: 76yo F with PMHx uncontrolled IDDM, HTN, CKD4, depression, history of noncompliance with medications, admitted for acidosis and acute on chronic kidney injury Plan: 1)Acute on Chronic Kidney Injury with acidosis -Likely due to DKA vs Prerenal azotemia -Improving -CO2 16L -GFR: 16, BUN/Cr 61/2.9 Today -C/W IV fluids -nephrology consulted: C/w current management -Patient probably safe to be move out of ICU today 2)Bacteremia -BCx positive for gram + cocci: 1 of them Coag neg Staph -C/W Vancomycin IV. 2nd dose today. Will monitor levels. -Vanco level 9.2 3)IDDM with complications -Uncontrolled. -C/W Lispro Sliding Scale to medium dose -accucheck q6 4)Hydronephrosis, chronic -Poss due to chronic obstructive uropathy. -S/P B/L JJ stent placement Yesterday -Urine output good since stent placement 5)UTI (questionable) -Poss the source of bacteremia -Patient has hx of multiple UTI/Asymptomatic bacteriuria -C/W Abx -follow cultures 6)HTN controlled -Valsartan 80mg PO Daily 7)Depression, chronic -Self neglect -Psych re-consulted -Paxil 10mg PO Daily -C/W Namenda 5mg daily -financial services intern consulted 8)Sacral erythema without pressure ulcer -C/W protective ointment PRN and frequent position changes 9)Prophylaxis -Heparin 5000 units SQ Q12h. Started Yesterday. Benefits outweighs the risks of bleeding since no new episodes of coffee ground emesis reported, normal BM and FOBT negative. -Florastor <Jose Juan Boswell - Last Filed: 05/17/17 06:53> Objective - Vital Signs/Intake and Output Vital Signs (last 24 hours): Temp Pulse Resp BP Pulse Ox 98.2 F 77 20 126/72 99 05/17/17 00:52 05/17/17 00:52 05/17/17 00:52 05/17/17 00:52 05/17/17 00:52 Intake and Output: 05/16/17 05/17/17 18:59 06:59 Intake Total 1980 Output Total 100 Balance 1880 - Medications Medications: Current Medications Acetaminophen (Tylenol 325mg Tab) 650 mg PO Q6 PRN PRN Reason: Other Last Admin: 05/11/17 12:10 Dose: 650 mg Ascorbic Acid (Vitamin C 250 Mg Tab) 250 mg PO BID [facility] Last Admin: 05/16/17 16:33 Dose: 250 mg Clotrimazole (Lotrimin 1% Cream) 1 applic TOP BID [facility] Last Admin: 05/16/17 16:34 Dose: 1 applic Docusate Sodium (Colace) 100 mg PO BID [facility] Last Admin: 05/16/17 16:33 Dose: Not Given Ferrous Gluconate (Fergon) 324 mg PO BID [facility] Last Admin: 05/16/17 16:33 Dose: 324 mg Heparin Sodium (Porcine) (Heparin) 5,000 units SC Q12 [facility] PRN Reason: Protocol Last Admin: 05/16/17 21:36 Dose: 5,000 units Ceftriaxone Sodium 1 gm/ (Sodium Chloride) 100 mls @ 100 mls/hr IVPB DAILY [facility] PRN Reason: Protocol Last Admin: 05/16/17 08:31 Dose: 100 mls/hr Fluconazole (Diflucan Iv 100 Mg/50 Ml Ns) 50 mls @ 50 mls/hr IVPB Q24H [facility] PRN Reason: Protocol Last Admin: 05/16/17 16:48 Dose: 50 mls/hr Iron Sucrose 100 mg/ Sodium (Chloride) 105 mls @ 105 mls/hr IVPB DAILY [facility] Insulin Human Regular (Humulin R) 0 units SC ACCU-CHECK [facility] PRN Reason: Protocol Last Admin: 05/16/17 22:13 Dose: Not Given Lactobacillus Acidophilus (Bacid Acidophilus) 1 cap PO BID [facility] Last Admin: 05/16/17 16:32 Dose: 1 cap Memantine (Namenda) 5 mg PO DAILY [facility] Last Admin: 05/16/17 08:29 Dose: 5 mg Ondansetron HCl (Zofran Inj) 4 mg IVP Q6H [facility] PRN Reason: Nausea/Vomiting Pantoprazole Sodium (Protonix Inj) 40 mg IVP DAILY [facility] Last Admin: 05/16/17 08:30 Dose: 40 mg Paroxetine HCl (Paxil) 10 mg PO DAILY [facility] Last Admin: 05/16/17 08:29 Dose: 10 mg Sevelamer HCl (Renagel) 800 mg PO TID [facility] Last Admin: 05/16/17 16:33 Dose: 800 mg - Labs Labs: 05/17/17 05:40 05/14/17 05:30 PT 11.7 Seconds (9.8-13.1) 05/08/17 23:16 INR 1.0 (0.9-1.2) 05/08/17 23:16 APTT 32.4 Seconds (25.6-37.1) 05/08/17 23:16 Attending/Attestation - Attestation I have personally seen and examined this patient.: Yes I have fully participated in the care of the patient.: Yes I have reviewed all pertinent clinical information, including history, physical exam and plan: Yes
--- NOTE | 2017-05-12 12:18 | RAD ---
PROCEDURE: Intraoperative Fluoroscopy. HISTORY: FLUOROSCOPY FINDINGS: Fluoroscopic assistance was provided for bilateral retrograde and stent placement. Please refer to the operative report from
[2017-05-12] MEDS ORDERED: Lidocaine 1% Inj (20ml) ONE (14:48)
--- NOTE | 2017-05-12 14:59 | PCM.SURG1 ---
Surgeon's Initial Post Op Note - Surgeon's Notes Surgeon: Shaquille Pino MD International Project Engineer: NONE Type of Anesthesia: Local Pre-Operative Diagnosis: Poor venous access Operative Findings: Patent right basilic vein Post-Operative Diagnosis: Poor venous access Operation Performed: May use dual lumen picc right arm, 40 cm. Tip is in the SVC. Specimen/Specimens Removed: none Estimated Blood Loss: EBL {In ML}: 0 Blood Products Given: N/A Drains Used: No Drains Post-Op Condition: Fair Date of Surgery/Procedure: 05/12/17 Time of Surgery/Procedure: 14:55
--- NOTE | 2017-05-12 18:59 | CP.PCM.PN ---
Subjective - Date & Time of Evaluation Date of Evaluation: 05/12/17 Time of Evaluation: 14:00 - Subjective Subjective: SEEN ON RENAL F/U IN ICU SEEN ALONG WITH HER DAUGHTER ON THE BEDSIDE FULLY A@O .. FEELS MUCH IMPROVED RENAL FUNCTION IS MUCH BETTER .. U / O IS AROUND 2000 ML /D CASE D/W PT AND DAUGHTER AT LENGTH Objective - Vital Signs/Intake and Output Vital Signs (last 24 hours): Temp Pulse Resp BP Pulse Ox 97.9 F 77 19 125/67 96 05/12/17 16:38 05/12/17 18:18 05/12/17 18:18 05/12/17 18:18 05/12/17 18:18 Intake and Output: 05/12/17 05/12/17 06:59 18:59 Intake Total 2100 2773 Output Total 1675 1950 Balance 425 823 - Medications Medications: Current Medications Acetaminophen (Tylenol 325mg Tab) 650 mg PO Q6 PRN PRN Reason: Other Last Admin: 05/11/17 12:10 Dose: 650 mg Clotrimazole (Lotrimin 1% Cream) 1 applic TOP BID [facility] Last Admin: 05/12/17 09:31 Dose: 1 applic Heparin Sodium (Porcine) (Heparin) 5,000 units SC Q12 [facility] PRN Reason: Protocol Last Admin: 05/12/17 08:26 Dose: 5,000 units Sodium Chloride (Sodium Chloride 0.9%) 500 mls @ 175 mls/hr IV .Q2H52M [facility] Last Admin: 05/12/17 16:52 Dose: 175 mls/hr Ceftriaxone Sodium 1 gm/ (Sodium Chloride) 100 mls @ 100 mls/hr IVPB DAILY [facility] PRN Reason: Protocol Fluconazole (Diflucan Iv 100 Mg/50 Ml Ns) 50 mls @ 50 mls/hr IVPB Q24H [facility] PRN Reason: Protocol Insulin Human Regular (Humulin R) 0 units SC ACCU-CHECK [facility] PRN Reason: Protocol Last Admin: 05/12/17 16:50 Dose: 4 units Memantine (Namenda) 5 mg PO DAILY [facility] Last Admin: 05/12/17 08:25 Dose: 5 mg Ondansetron HCl (Zofran Inj) 4 mg IVP Q6H [facility] PRN Reason: Nausea/Vomiting Pantoprazole Sodium (Protonix Inj) 40 mg IVP DAILY [facility] Last Admin: 05/12/17 08:30 Dose: 40 mg Paroxetine HCl (Paxil) 10 mg PO DAILY [facility] Last Admin: 05/12/17 08:25 Dose: 10 mg Saccharomyces Boulardii (Florastor) 250 mg PO BID [facility] Last Admin: 05/12/17 16:48 Dose: 250 mg Sevelamer HCl (Renagel) 800 mg PO TID [facility] Last Admin: 05/12/17 16:48 Dose: 800 mg - Labs Labs: 05/12/17 04:30 05/12/17 04:30 PT 11.7 Seconds (9.8-13.1) 05/08/17 23:16 INR 1.0 (0.9-1.2) 05/08/17 23:16 APTT 32.4 Seconds (25.6-37.1) 05/08/17 23:16 Assessment and Plan - Assessment and Plan (Free Text) Assessment: A ON CKD .. RENAL FUNCTION MUCH BETTER ELECTROLYTES ABN .. MUCH BETTER SEVERE MET ACIDOSIS .. MUCH IMPROVED .. HCO3 IS NOW 19 CHRONIC ADLEAIDA HYDRONEPHROSIS UTI ON IVAB P : C/O CURRENT CARE C/O PRESENT MEDS C/O IVF C/O IVAB PER ID
[2017-05-12] MEDS: Fluconazole IV 100mg/50 ml NS 50 ML IVPB SCH (20:51)
--- NOTE | 2017-05-12 22:23 | CP.PCM.PN ---
Subjective - Date & Time of Evaluation Date of Evaluation: 05/12/17 Time of Evaluation: 22:19 - Subjective Subjective: UROLOGY POD2 cysto bilateral JJ stentplacement pt seems to be showing an inproving trend with respecttoBUN/CREAT and renal function. The initial urine was milky white and a culture was sent at the time of surgery.Report pending. At this time urologic tx is expectant Objective - Vital Signs/Intake and Output Vital Signs (last 24 hours): Temp Pulse Resp BP Pulse Ox 98.4 F 81 24 124/65 100 05/12/17 20:00 05/12/17 22:00 05/12/17 22:00 05/12/17 22:00 05/12/17 22:00 Intake and Output: 05/12/17 05/13/17 18:59 06:59 Intake Total 2773 700 Output Total 1950 Balance 823 700 - Medications Medications: Current Medications Acetaminophen (Tylenol 325mg Tab) 650 mg PO Q6 PRN PRN Reason: Other Last Admin: 05/11/17 12:10 Dose: 650 mg Clotrimazole (Lotrimin 1% Cream) 1 applic TOP BID [facility] Last Admin: 05/12/17 09:31 Dose: 1 applic Heparin Sodium (Porcine) (Heparin) 5,000 units SC Q12 [facility] PRN Reason: Protocol Last Admin: 05/12/17 20:51 Dose: 5,000 units Sodium Chloride (Sodium Chloride 0.9%) 500 mls @ 175 mls/hr IV .Q2H52M [facility] Last Admin: 05/12/17 19:25 Dose: 175 mls/hr Ceftriaxone Sodium 1 gm/ (Sodium Chloride) 100 mls @ 100 mls/hr IVPB DAILY [facility] PRN Reason: Protocol Fluconazole (Diflucan Iv 100 Mg/50 Ml Ns) 50 mls @ 50 mls/hr IVPB Q24H [facility] PRN Reason: Protocol Last Admin: 05/12/17 20:51 Dose: 50 mls/hr Insulin Human Regular (Humulin R) 0 units SC ACCU-CHECK [facility] PRN Reason: Protocol Last Admin: 05/12/17 16:50 Dose: 4 units Memantine (Namenda) 5 mg PO DAILY [facility] Last Admin: 05/12/17 08:25 Dose: 5 mg Ondansetron HCl (Zofran Inj) 4 mg IVP Q6H [facility] PRN Reason: Nausea/Vomiting Pantoprazole Sodium (Protonix Inj) 40 mg IVP DAILY [facility] Last Admin: 05/12/17 08:30 Dose: 40 mg Paroxetine HCl (Paxil) 10 mg PO DAILY [facility] Last Admin: 05/12/17 08:25 Dose: 10 mg Saccharomyces Boulardii (Florastor) 250 mg PO BID [facility] Last Admin: 05/12/17 16:48 Dose: 250 mg Sevelamer HCl (Renagel) 800 mg PO TID [facility] Last Admin: 05/12/17 16:48 Dose: 800 mg - Labs Labs: 05/12/17 04:30 05/12/17 04:30 PT 11.7 Seconds (9.8-13.1) 05/08/17 23:16 INR 1.0 (0.9-1.2) 05/08/17 23:16 APTT 32.4 Seconds (25.6-37.1) 05/08/17 23:16
[2017-05-13] MEDS: Sodium Chloride 0.9% 500 ML IV SCH (01:59)
[2017-05-13] MEDS: Insulin Regular 100 units/ml SC SCH ×4 (06:41→22:04)
[2017-05-13 06:50] LABS: BASO % 0.4 % (0.0-2.0); EOS # 0.3 K/uL (0.0-0.7); EOS % 3.5 % (0.0-4.0); HEMATOCRIT 29.2 % (34.0-47.0); LYMPH # 2.3 K/uL (1.0-4.3); LYMPH % 24.1 % (20.0-40.0); MEAN CELL VOLUME 80.2 fl (81.0-99.0); MEAN CORPUSCULAR HGB CONC 32.4 g/dL (33.0-37.0); MEAN PLATELET VOLUME 8.1 fl (7.2-11.7); MONO # 0.7 K/uL (0.0-0.8); MONO % 7.4 % (0.0-10.0); NEUT # 6.1 K/uL (1.8-7.0); NEUT % 64.6 % (50.0-75.0); RED CELL DISTRIBUTION WIDTH 15.3 % (11.5-14.5); WHITE BLOOD COUNT 9.5 K/uL (4.8-10.8)
[2017-05-13 06:58] LABS: CALCIUM 7.7 mg/dL (8.4-10.2)
[2017-05-13] MEDS: Saccharomyces Boulardi 250 mg Cap PO SCH ×2 (08:39→16:26)
[2017-05-13] MEDS ORDERED: Sodium Chloride 0.9% 1,000 ML IV SCH (09:15)
--- NOTE | 2017-05-13 10:29 | CP.PCM.PN ---
Subjective - Date & Time of Evaluation Date of Evaluation: 05/13/17 Time of Evaluation: 10:23 - Subjective Subjective: I D NOTE PATIENT KNOWN TO ME FROM PREVIOUS ADMISSIONS .HAS GRAM POSITIVE BACTEREMIA(COAG NEG STAPH) AND WAS ON ADJUSTED DOSE OF VANCOMYCIN URINE CULTURE IS POSITIVE FOR YEAST AND IS ON 100 MG DIFLUCAN Q 24H. HAD STENT PLACEMENT ON05/10/17 ,THERE HAS BEEN SOME IMPROVEMENT IN RENAL FUNCTION. PATIENT IS ON ROCEPHEN WHICH WILL COVER KLEBSIELLA GROWN ON PREVIOUS ADMISSIONS AND OTHER NON-RESISTANT GRAM NEGATIVE ORGANISMS. HAVE DISCUSSED c RESIDENT,AND AGREED c PRESENT COVERAGE(ROCEPHEN, DIFLUCAN). AFTER BLOOD CULTURES DONE TODAY AND TOMORROW,WOULD RESTART VANCOMYCIN OR OTHER STAPH COVERAGE LIKE ZYVOX 600 MG IVPB Q12H (FOLLOW PLATELETS WHEN ON) UNTIL RESULTS OF CULTURES RETURN SHE HAS POSITIVE CULTURES FROM 05/08/17 s F/U BLOOD CULTURES Objective - Vital Signs/Intake and Output Vital Signs (last 24 hours): Temp Pulse Resp BP Pulse Ox 98.6 F 71 18 110/61 100 05/13/17 08:00 05/13/17 10:00 05/13/17 10:00 05/13/17 10:00 05/13/17 10:00 Intake and Output: 05/13/17 05/13/17 06:59 18:59 Intake Total 1750 624 Balance 1750 624 - Medications Medications: Current Medications Acetaminophen (Tylenol 325mg Tab) 650 mg PO Q6 PRN PRN Reason: Other Last Admin: 05/11/17 12:10 Dose: 650 mg Clotrimazole (Lotrimin 1% Cream) 1 applic TOP BID [facility] Last Admin: 05/13/17 08:40 Dose: 1 applic Heparin Sodium (Porcine) (Heparin) 5,000 units SC Q12 [facility] PRN Reason: Protocol Last Admin: 05/13/17 08:41 Dose: 5,000 units Sodium Chloride (Sodium Chloride 0.9%) 500 mls @ 175 mls/hr IV .Q2H52M [facility] Last Admin: 05/13/17 01:59 Dose: 175 mls/hr Ceftriaxone Sodium 1 gm/ (Sodium Chloride) 100 mls @ 100 mls/hr IVPB DAILY [facility] PRN Reason: Protocol Last Admin: 05/13/17 08:42 Dose: 100 mls/hr Fluconazole (Diflucan Iv 100 Mg/50 Ml Ns) 50 mls @ 50 mls/hr IVPB Q24H [facility] PRN Reason: Protocol Last Admin: 05/12/17 20:51 Dose: 50 mls/hr Sodium Chloride (Sodium Chloride 0.9%) 1,000 mls @ 100 mls/hr IV .Q10H [facility] Stop: 05/14/17 09:10 Insulin Human Regular (Humulin R) 0 units SC ACCU-CHECK [facility] PRN Reason: Protocol Last Admin: 05/12/17 23:34 Dose: Not Given Memantine (Namenda) 5 mg PO DAILY [facility] Last Admin: 05/13/17 08:39 Dose: 5 mg Ondansetron HCl (Zofran Inj) 4 mg IVP Q6H [facility] PRN Reason: Nausea/Vomiting Pantoprazole Sodium (Protonix Inj) 40 mg IVP DAILY [facility] Last Admin: 05/13/17 08:48 Dose: 40 mg Paroxetine HCl (Paxil) 10 mg PO DAILY [facility] Last Admin: 05/13/17 08:40 Dose: 10 mg Saccharomyces Boulardii (Florastor) 250 mg PO BID [facility] Last Admin: 05/13/17 08:39 Dose: 250 mg Sevelamer HCl (Renagel) 800 mg PO TID [facility] Last Admin: 05/13/17 08:40 Dose: 800 mg - Labs Labs: 05/13/17 05:00 05/13/17 05:00 PT 11.7 Seconds (9.8-13.1) 05/08/17 23:16 INR 1.0 (0.9-1.2) 05/08/17 23:16 APTT 32.4 Seconds (25.6-37.1) 05/08/17 23:16
--- NOTE | 2017-05-13 10:32 | CP.PCM.PN ---
Subjective - Date & Time of Evaluation Date of Evaluation: 05/13/17 Time of Evaluation: 10:40 - Subjective Subjective: 76 y/o F seen at bedside in not acute distress. Patient states she feels better. Looking more awake today and active than before. C/O suprapubic discomfort pain and asks for removal of the "tubes". Denies dysuria, vomiting, fever, vaginal itching, fever, SOB, palpitations or CP. Patient urine yellow/ slightly turbid. Goo diuresis. Adams in place. Objective - Vital Signs/Intake and Output Vital Signs (last 24 hours): Temp Pulse Resp BP Pulse Ox 98.6 F 71 18 110/61 100 05/13/17 08:00 05/13/17 10:00 05/13/17 10:00 05/13/17 10:00 05/13/17 10:00 Intake and Output: 05/13/17 05/13/17 06:59 18:59 Intake Total 1750 624 Balance 1750 624 - Medications Medications: Current Medications Acetaminophen (Tylenol 325mg Tab) 650 mg PO Q6 PRN PRN Reason: Other Last Admin: 05/11/17 12:10 Dose: 650 mg Clotrimazole (Lotrimin 1% Cream) 1 applic TOP BID [facility] Last Admin: 05/13/17 08:40 Dose: 1 applic Heparin Sodium (Porcine) (Heparin) 5,000 units SC Q12 [facility] PRN Reason: Protocol Last Admin: 05/13/17 08:41 Dose: 5,000 units Sodium Chloride (Sodium Chloride 0.9%) 500 mls @ 175 mls/hr IV .Q2H52M [facility] Last Admin: 05/13/17 01:59 Dose: 175 mls/hr Ceftriaxone Sodium 1 gm/ (Sodium Chloride) 100 mls @ 100 mls/hr IVPB DAILY [facility] PRN Reason: Protocol Last Admin: 05/13/17 08:42 Dose: 100 mls/hr Fluconazole (Diflucan Iv 100 Mg/50 Ml Ns) 50 mls @ 50 mls/hr IVPB Q24H [facility] PRN Reason: Protocol Last Admin: 05/12/17 20:51 Dose: 50 mls/hr Sodium Chloride (Sodium Chloride 0.9%) 1,000 mls @ 100 mls/hr IV .Q10H [facility] Stop: 05/14/17 09:10 Insulin Human Regular (Humulin R) 0 units SC ACCU-CHECK [facility] PRN Reason: Protocol Last Admin: 05/12/17 23:34 Dose: Not Given Memantine (Namenda) 5 mg PO DAILY [facility] Last Admin: 05/13/17 08:39 Dose: 5 mg Ondansetron HCl (Zofran Inj) 4 mg IVP Q6H [facility] PRN Reason: Nausea/Vomiting Pantoprazole Sodium (Protonix Inj) 40 mg IVP DAILY [facility] Last Admin: 05/13/17 08:48 Dose: 40 mg Paroxetine HCl (Paxil) 10 mg PO DAILY [facility] Last Admin: 05/13/17 08:40 Dose: 10 mg Saccharomyces Boulardii (Florastor) 250 mg PO BID [facility] Last Admin: 05/13/17 08:39 Dose: 250 mg Sevelamer HCl (Renagel) 800 mg PO TID [facility] Last Admin: 05/13/17 08:40 Dose: 800 mg - Labs Labs: 05/13/17 05:00 05/13/17 05:00 PT 11.7 Seconds (9.8-13.1) 05/08/17 23:16 INR 1.0 (0.9-1.2) 05/08/17 23:16 APTT 32.4 Seconds (25.6-37.1) 05/08/17 23:16 - Constitutional Appears: Non-toxic, No Acute Distress - Eye Exam Eye Exam: EOMI - ENT Exam ENT Exam: Mucous Membranes Moist - Respiratory Exam Respiratory Exam: Clear to Ausculation Bilateral, NORMAL BREATHING PATTERN. absent: Decreased Breath Sounds, Rales, Wheezes - Cardiovascular Exam Cardiovascular Exam: REGULAR RHYTHM, +S1, +S2. absent: Murmur - GI/Abdominal Exam GI & Abdominal Exam: Soft, Normal Bowel Sounds. absent: Distended, Guarding, Tenderness - Extremities Exam Extremities Exam: Normal Capillary Refill. absent: Calf Tenderness - Neurological Exam Neurological Exam: Alert, Awake, Oriented x3. absent: Motor Sensory Deficit - Psychiatric Exam Psychiatric exam: Normal Affect, Normal Mood - Skin Skin Exam: Normal Color, Warm Assessment and Plan - Assessment and Plan (Free Text) Assessment: 76yo F with PMHx uncontrolled IDDM, HTN, CKD4, depression, history of noncompliance with medications, admitted for acidosis and acute on chronic kidney injury Plan: 1)Acute on Chronic Kidney Injury -Acidosis resolved -Likely due to DKA vs Prerenal azotemia -Continues improving -GFR: 2, BUN/Cr 41/2.2 Today -C/W IV fluids at 100mls as per ICU management -nephrology consulted: C/w current management 2)Bacteremia without SIRS -Most likely prior to admission -BCx positive for Coag neg Staph -Will c/w monitoring Vanco levels and F/U repeat BCx for further Vanco dosage if necessary. -Patient also on Rocephin IV -ID consulted: Recs appreciated 3)IDDM with complications -Uncontrolled. -C/W Lispro Sliding Scale medium dose -accucheck q6 4)Hydronephrosis, chronic -Poss due to chronic obstructive uropathy. -S/P B/L JJ stent placement -Urine output good since stent placement 5)Yeast UTI -most likely prior to admission -Patient has hx of multiple UTI/Asymptomatic bacteriuria including previous Yeast UTI -Recently instrumented -Diflucan IV 100 mg daily 6)HTN controlled -Valsartan 80mg PO Daily -Monitoring 7)Depression, chronic -Self neglect -Psych re-consulted -Paxil 10mg PO Daily -C/W Namenda 5mg daily -manager environmental services consulted 8)Sacral erythema without pressure ulcer -C/W protective ointment PRN and frequent position changes 9)Prophylaxis -Heparin 5000 units SQ Q12h. Benefits outweighs the risks of bleeding since no new episodes of coffee ground emesis reported, normal BM and FOBT negative. -Florastor
[2017-05-13] MEDS: Fluconazole IV 100mg/50 ml NS 50 ML IVPB SCH (16:52)
[2017-05-14 06:02] LABS: BASO # 0.1 K/uL (0.0-0.2); BASO % 0.6 % (0.0-2.0); EOS # 0.4 K/uL (0.0-0.7); EOS % 3.8 % (0.0-4.0); HEMATOCRIT 27.9 % (34.0-47.0); LYMPH # 2.9 K/uL (1.0-4.3); LYMPH % 31.1 % (20.0-40.0); MEAN CELL VOLUME 80.2 fl (81.0-99.0); MEAN CORPUSCULAR HEMOGLOBIN 25.9 pg (27.0-31.0); MEAN CORPUSCULAR HGB CONC 32.3 g/dL (33.0-37.0); MEAN PLATELET VOLUME 7.3 fl (7.2-11.7); MONO # 0.8 K/uL (0.0-0.8); NEUT # 5.3 K/uL (1.8-7.0); NEUT % 56.5 % (50.0-75.0); RED CELL DISTRIBUTION WIDTH 15.2 % (11.5-14.5); WHITE BLOOD COUNT 9.4 K/uL (4.8-10.8)
[2017-05-14 06:16] LABS: CALCIUM 7.5 mg/dL (8.4-10.2); POTASSIUM 4.2 MMOL/L (3.6-5.0)
[2017-05-14] MEDS: Insulin Regular 100 units/ml SC SCH ×4 (06:40→22:15)
[2017-05-14] MEDS: Saccharomyces Boulardi 250 mg Cap PO SCH (08:16)
--- NOTE | 2017-05-14 08:34 | CP.PCM.PN ---
Subjective - Date & Time of Evaluation Date of Evaluation: 05/13/17 Time of Evaluation: 14:00 - Subjective Subjective: SEEN ON RENAL F/U MUCH BETTER .. CLINICALLY WELL RENALLY FULLY A@O .. FEELS MUCH IMPROVED ALL PREVIOUS EMR REVIEWED Objective - Vital Signs/Intake and Output Vital Signs (last 24 hours): Temp Pulse Resp BP Pulse Ox 99.8 F H 67 19 135/77 98 05/14/17 05:00 05/14/17 05:00 05/14/17 05:00 05/14/17 05:00 05/14/17 05:00 Intake and Output: 05/14/17 05/14/17 06:59 18:59 Intake Total Output Total Balance - Medications Medications: Current Medications Acetaminophen (Tylenol 325mg Tab) 650 mg PO Q6 PRN PRN Reason: Other Last Admin: 05/11/17 12:10 Dose: 650 mg Clotrimazole (Lotrimin 1% Cream) 1 applic TOP BID [facility] Last Admin: 05/14/17 08:17 Dose: 1 applic Heparin Sodium (Porcine) (Heparin) 5,000 units SC Q12 [facility] PRN Reason: Protocol Last Admin: 05/14/17 08:16 Dose: 5,000 units Sodium Chloride (Sodium Chloride 0.9%) 500 mls @ 175 mls/hr IV .Q2H52M [facility] Last Admin: 05/13/17 01:59 Dose: 175 mls/hr Ceftriaxone Sodium 1 gm/ (Sodium Chloride) 100 mls @ 100 mls/hr IVPB DAILY [facility] PRN Reason: Protocol Last Admin: 05/14/17 08:17 Dose: 100 mls/hr Fluconazole (Diflucan Iv 100 Mg/50 Ml Ns) 50 mls @ 50 mls/hr IVPB Q24H [facility] PRN Reason: Protocol Last Admin: 05/13/17 16:52 Dose: 50 mls/hr Sodium Chloride (Sodium Chloride 0.9%) 1,000 mls @ 100 mls/hr IV .Q10H [facility] Stop: 05/14/17 09:10 Last Admin: 05/13/17 16:05 Dose: 100 mls/hr Insulin Human Regular (Humulin R) 0 units SC ACCU-CHECK [facility] PRN Reason: Protocol Last Admin: 05/14/17 06:40 Dose: 2 units Memantine (Namenda) 5 mg PO DAILY [facility] Last Admin: 05/14/17 08:16 Dose: 5 mg Ondansetron HCl (Zofran Inj) 4 mg IVP Q6H PRN PRN Reason: Nausea/Vomiting Pantoprazole Sodium (Protonix Inj) 40 mg IVP DAILY [facility] Last Admin: 05/14/17 08:24 Dose: 40 mg Paroxetine HCl (Paxil) 10 mg PO DAILY [facility] Last Admin: 05/14/17 08:16 Dose: 10 mg Saccharomyces Boulardii (Florastor) 250 mg PO BID [facility] Last Admin: 05/14/17 08:16 Dose: 250 mg Sevelamer HCl (Renagel) 800 mg PO TID [facility] Last Admin: 05/14/17 08:15 Dose: 800 mg - Labs Labs: 05/14/17 05:30 05/14/17 05:30 PT 11.7 Seconds (9.8-13.1) 05/08/17 23:16 INR 1.0 (0.9-1.2) 05/08/17 23:16 APTT 32.4 Seconds (25.6-37.1) 05/08/17 23:16 Assessment and Plan - Assessment and Plan (Free Text) Assessment: A ON CKD .. RENAL FUNCTION BETTER S/P SEVERE MET ACIDOSIS .. MUCH BETTER S/P ELECTROLYTES ABNORMALITIES .. ALL CORRECTED SEPSIS .. UTI .. BACTERIA IN BLOOD .. FUNGUS IN URIN .. ON IVAB PER DR MENDOZA MULTIPLE CO MORBIDITIES P : C/O CURRENT CARE C/O PRESENT MANAGEMENT C/O IVAB TAPER DOWN IVF
--- NOTE | 2017-05-14 13:25 | CP.PCM.PN ---
Subjective - Date & Time of Evaluation Date of Evaluation: 05/14/17 Time of Evaluation: 10:15 - Subjective Subjective: Patient seen and examined at bedside with attending during rounds. She is sitting comfortably in bed and appears in better spirits compared to prior assessments. She reports slightly improved lower abdominal discomfort. Patient denies fevers, chills, chest pain, sob, cough, nausea or vomiting. She has not been out of bed. Adams continues to drain cloudy, whitish urine. Objective - Vital Signs/Intake and Output Vital Signs (last 24 hours): Temp Pulse Resp BP Pulse Ox 99.3 F 78 16 120/66 99 05/14/17 12:00 05/14/17 12:00 05/14/17 12:00 05/14/17 12:00 05/14/17 12:00 Intake and Output: 05/14/17 05/14/17 06:59 18:59 Intake Total 1100 Output Total Balance 1100 - Medications Medications: Current Medications Acetaminophen (Tylenol 325mg Tab) 650 mg PO Q6 PRN PRN Reason: Other Last Admin: 05/11/17 12:10 Dose: 650 mg Clotrimazole (Lotrimin 1% Cream) 1 applic TOP BID [facility] Last Admin: 05/14/17 08:17 Dose: 1 applic Heparin Sodium (Porcine) (Heparin) 5,000 units SC Q12 [facility] PRN Reason: Protocol Last Admin: 05/14/17 08:16 Dose: 5,000 units Sodium Chloride (Sodium Chloride 0.9%) 500 mls @ 175 mls/hr IV .Q2H52M [facility] Last Admin: 05/13/17 01:59 Dose: 175 mls/hr Ceftriaxone Sodium 1 gm/ (Sodium Chloride) 100 mls @ 100 mls/hr IVPB DAILY [facility] PRN Reason: Protocol Last Admin: 05/14/17 08:17 Dose: 100 mls/hr Fluconazole (Diflucan Iv 100 Mg/50 Ml Ns) 50 mls @ 50 mls/hr IVPB Q24H [facility] PRN Reason: Protocol Last Admin: 05/13/17 16:52 Dose: 50 mls/hr Insulin Human Regular (Humulin R) 0 units SC ACCU-CHECK [facility] PRN Reason: Protocol Last Admin: 05/14/17 11:18 Dose: 3 units Memantine (Namenda) 5 mg PO DAILY [facility] Last Admin: 05/14/17 08:16 Dose: 5 mg Ondansetron HCl (Zofran Inj) 4 mg IVP Q6H PRN PRN Reason: Nausea/Vomiting Pantoprazole Sodium (Protonix Inj) 40 mg IVP DAILY [facility] Last Admin: 05/14/17 08:24 Dose: 40 mg Paroxetine HCl (Paxil) 10 mg PO DAILY [facility] Last Admin: 05/14/17 08:16 Dose: 10 mg Saccharomyces Boulardii (Florastor) 250 mg PO BID [facility] Last Admin: 05/14/17 08:16 Dose: 250 mg Sevelamer HCl (Renagel) 800 mg PO TID [facility] Last Admin: 05/14/17 12:07 Dose: 800 mg - Labs Labs: 05/14/17 05:30 05/14/17 05:30 PT 11.7 Seconds (9.8-13.1) 05/08/17 23:16 INR 1.0 (0.9-1.2) 05/08/17 23:16 APTT 32.4 Seconds (25.6-37.1) 05/08/17 23:16 - Constitutional Appears: Non-toxic, No Acute Distress - Head Exam Head Exam: ATRAUMATIC, NORMAL INSPECTION, NORMOCEPHALIC - Eye Exam Eye Exam: EOMI, PERRL - ENT Exam ENT Exam: Mucous Membranes Moist - Respiratory Exam Respiratory Exam: Clear to Ausculation Bilateral, NORMAL BREATHING PATTERN. absent: Rales, Rhonchi, Wheezes, Respiratory Distress - Cardiovascular Exam Cardiovascular Exam: REGULAR RHYTHM, RRR, +S1, +S2 - GI/Abdominal Exam GI & Abdominal Exam: Soft, Tenderness (Mild lower abdominal tenderness), Normal Bowel Sounds. absent: Distended, Guarding, Rebound - Extremities Exam Extremities Exam: Normal Capillary Refill. absent: Calf Tenderness, Pedal Edema - Neurological Exam Neurological Exam: Alert, Awake, Oriented x3 Neuro motor strength exam: Left Upper Extremity: 5, Right Upper Extremity: 5, Left Lower Extremity: 5, Right Lower Extremity: 5 Additional comments: Thought process appears clear, logical - Psychiatric Exam Psychiatric exam: Normal Affect, Normal Mood - Skin Skin Exam: Dry, Warm Assessment and Plan - Assessment and Plan (Free Text) Assessment: 76 y/o F with PMH including uncontrolled IDDM2, HTN, CKD4, Depression and history of medicine non-adherence/self neglect admitted for acidosis and acute on chronic kidney injury. Patient subsequently found to have bacteremia and yeast UTI. Plan: Acute on Chronic Kidney Injury -Etiology likely due to DKA vs Prerenal azotemia -Improving -BUN/Cr 31/2.2 -Normal saline 125ml/hr -Nephrology consultation appreciated Bacteremia without SIRS -Most likely prior to admission -BCx positive for Coag neg Staph -Repeat blood culture from 05/13 x2 reveals no growth after 24 hours -Has been receiving vancomycin 1 gm IV every other day -Will c/w monitoring Vanco levels -Patient also on Rocephin IV -ID consulted: Recs appreciated IDDM2 with complications -Uncontrolled. -C/W Lispro Sliding Scale medium dose -accucheck q6 Hydronephrosis, chronic -Poss due to chronic obstructive uropathy -S/P B/L JJ stent placement -Urine output good since stent placement Yeast UTI -most likely prior to admission -Patient has hx of multiple UTI/Asymptomatic bacteriuria including previous Yeast UTI -Recently instrumented -Continue Diflucan IV 100 mg daily (Started 05/12, Current day 3) HTN controlled -Valsartan 80mg PO Daily -Monitor BP Depression, chronic -Self neglect -Psych re-consulted -Paxil 10mg PO Daily -C/W Namenda 5mg daily -telephone services sales representative consulted -Will consider contacting APS before discharge Prophylaxis -Heparin 5000 units SQ Q12h
[2017-05-14] MEDS: Sodium Chloride 0.9% 1,000 ML IV SCH (15:07)
[2017-05-14] MEDS: Lactobacillus Acidophilus 500 MU Cap PO SCH (16:25)
[2017-05-14] MEDS: Fluconazole IV 100mg/50 ml NS 50 ML IVPB SCH (16:52)
[2017-05-15] MEDS: Insulin Regular 100 units/ml SC SCH ×4 (07:44→22:22)
--- NOTE | 2017-05-15 08:37 | CP.PCM.PN ---
<Aquiles Kern - Last Filed: 05/15/17 13:50> Subjective - Date & Time of Evaluation Date of Evaluation: 05/15/17 Time of Evaluation: 07:00 - Subjective Subjective: 76 y/o F seen at bedside during rounds. Patient is in good spirits. She c/o of suprapubic pain and discomfort because of the "Adams". Patient had 1 BM 2 days ago, normal. Denies dysuria, fever, vomiting, nausea. Objective - Vital Signs/Intake and Output Vital Signs (last 24 hours): Temp Pulse Resp BP Pulse Ox 98.6 F 69 16 137/73 100 05/15/17 07:50 05/15/17 07:50 05/15/17 07:50 05/15/17 07:50 05/15/17 07:50 Intake and Output: 05/15/17 05/15/17 06:59 18:59 Intake Total 1500 250 Output Total 2000 Balance -500 250 - Medications Medications: Current Medications Acetaminophen (Tylenol 325mg Tab) 650 mg PO Q6 PRN PRN Reason: Other Last Admin: 05/11/17 12:10 Dose: 650 mg Clotrimazole (Lotrimin 1% Cream) 1 applic TOP BID [facility] Last Admin: 05/14/17 16:25 Dose: 1 applic Heparin Sodium (Porcine) (Heparin) 5,000 units SC Q12 [facility] PRN Reason: Protocol Last Admin: 05/14/17 22:18 Dose: 5,000 units Sodium Chloride (Sodium Chloride 0.9%) 500 mls @ 175 mls/hr IV .Q2H52M [facility] Last Admin: 05/13/17 01:59 Dose: 175 mls/hr Ceftriaxone Sodium 1 gm/ (Sodium Chloride) 100 mls @ 100 mls/hr IVPB DAILY [facility] PRN Reason: Protocol Last Admin: 05/14/17 08:17 Dose: 100 mls/hr Fluconazole (Diflucan Iv 100 Mg/50 Ml Ns) 50 mls @ 50 mls/hr IVPB Q24H [facility] PRN Reason: Protocol Last Admin: 05/14/17 16:52 Dose: 50 mls/hr Sodium Chloride (Sodium Chloride 0.9%) 1,000 mls @ 125 mls/hr IV .Q8H [facility] Stop: 05/15/17 14:25 Last Admin: 05/14/17 15:07 Dose: 125 mls/hr Insulin Human Regular (Humulin R) 0 units SC ACCU-CHECK [facility] PRN Reason: Protocol Last Admin: 05/15/17 07:44 Dose: 2 units Lactobacillus Acidophilus (Bacid Acidophilus) 1 cap PO BID [facility] Last Admin: 05/14/17 16:25 Dose: 1 cap Memantine (Namenda) 5 mg PO DAILY [facility] Last Admin: 05/14/17 08:16 Dose: 5 mg Ondansetron HCl (Zofran Inj) 4 mg IVP Q6H PRN PRN Reason: Nausea/Vomiting Pantoprazole Sodium (Protonix Inj) 40 mg IVP DAILY [facility] Last Admin: 05/14/17 08:24 Dose: 40 mg Paroxetine HCl (Paxil) 10 mg PO DAILY [facility] Last Admin: 05/14/17 08:16 Dose: 10 mg Sevelamer HCl (Renagel) 800 mg PO TID [facility] Last Admin: 05/14/17 16:25 Dose: 800 mg - Labs Labs: 05/14/17 05:30 05/14/17 05:30 PT 11.7 Seconds (9.8-13.1) 05/08/17 23:16 INR 1.0 (0.9-1.2) 05/08/17 23:16 APTT 32.4 Seconds (25.6-37.1) 05/08/17 23:16 - Constitutional Appears: Non-toxic, No Acute Distress - Eye Exam Eye Exam: EOMI - ENT Exam ENT Exam: Mucous Membranes Moist - Respiratory Exam Respiratory Exam: Clear to Ausculation Bilateral, NORMAL BREATHING PATTERN. absent: Rales, Wheezes - Cardiovascular Exam Cardiovascular Exam: REGULAR RHYTHM, +S1, +S2. absent: Murmur - GI/Abdominal Exam GI & Abdominal Exam: Soft, Tenderness (suprapubic. Mild). absent: Distended, Guarding, Mass - Extremities Exam Extremities Exam: Normal Capillary Refill. absent: Calf Tenderness, Pedal Edema - Neurological Exam Neurological Exam: Alert, Awake, Oriented x3 - Psychiatric Exam Psychiatric exam: Normal Affect, Normal Mood. absent: Homicidal Ideation, Suicidal Ideation - Skin Skin Exam: Normal Color, Warm Assessment and Plan - Assessment and Plan (Free Text) Assessment: 76 y/o F with PMH including uncontrolled IDDM2, HTN, CKD4, Depression and history of medicine non-adherence/self neglect admitted for acidosis and acute on chronic kidney injury. Plan: Acute on Chronic Kidney Injury -Etiology likely due to DKA vs Prerenal azotemia -Improving -BUN/Cr 31/2.2 -Normal saline 75ml/hr(Tapering down) -Nephrology consultation appreciated Bacteremia without SIRS/Sepsis -Resolved. -Repeat BCx no growth in 48 hours -Most likely prior to admission -S/P Vancomycin x2 -Patient also on Rocephin IV -ID consulted: Recs appreciated IDDM2 with complications -Uncontrolled. -C/W Lispro Sliding Scale medium dose -accucheck q6 Hydronephrosis, chronic -Poss due to chronic obstructive uropathy -S/P B/L JJ stent placement -Urine output good since stent placement -Will DC Adams today Yeast UTI -most likely prior to admission -Patient has hx of multiple UTI/Asymptomatic bacteriuria including previous Yeast UTI -Recently instrumented -Continue Diflucan IV 100 mg daily (Started 05/12, Current day 4) HTN controlled -Valsartan 80mg PO Daily -Monitor BP Depression, chronic -Self neglect -Psych re-consulted -Paxil 10mg PO Daily -C/W Namenda 5mg daily -office services associate consulted -Will consider contacting APS before discharge Prophylaxis -Heparin 5000 units SQ Q12h <Jose Juan Boswell - Last Filed: 05/17/17 06:57> Objective - Vital Signs/Intake and Output Vital Signs (last 24 hours): Temp Pulse Resp BP Pulse Ox 98.2 F 77 20 126/72 99 05/17/17 00:52 05/17/17 00:52 05/17/17 00:52 05/17/17 00:52 05/17/17 00:52 Intake and Output: 05/16/17 05/17/17 18:59 06:59 Intake Total 1980 Output Total 100 Balance 1880 - Medications Medications: Current Medications Acetaminophen (Tylenol 325mg Tab) 650 mg PO Q6 PRN PRN Reason: Other Last Admin: 05/11/17 12:10 Dose: 650 mg Ascorbic Acid (Vitamin C 250 Mg Tab) 250 mg PO BID [facility] Last Admin: 05/16/17 16:33 Dose: 250 mg Clotrimazole (Lotrimin 1% Cream) 1 applic TOP BID [facility] Last Admin: 05/16/17 16:34 Dose: 1 applic Docusate Sodium (Colace) 100 mg PO BID [facility] Last Admin: 05/16/17 16:33 Dose: Not Given Ferrous Gluconate (Fergon) 324 mg PO BID [facility] Last Admin: 05/16/17 16:33 Dose: 324 mg Heparin Sodium (Porcine) (Heparin) 5,000 units SC Q12 [facility] PRN Reason: Protocol Last Admin: 05/16/17 21:36 Dose: 5,000 units Ceftriaxone Sodium 1 gm/ (Sodium Chloride) 100 mls @ 100 mls/hr IVPB DAILY [facility] PRN Reason: Protocol Last Admin: 05/16/17 08:31 Dose: 100 mls/hr Fluconazole (Diflucan Iv 100 Mg/50 Ml Ns) 50 mls @ 50 mls/hr IVPB Q24H [facility] PRN Reason: Protocol Last Admin: 05/16/17 16:48 Dose: 50 mls/hr Iron Sucrose 100 mg/ Sodium (Chloride) 105 mls @ 105 mls/hr IVPB DAILY [facility] Insulin Human Regular (Humulin R) 0 units SC ACCU-CHECK [facility] PRN Reason: Protocol Last Admin: 05/16/17 22:13 Dose: Not Given Lactobacillus Acidophilus (Bacid Acidophilus) 1 cap PO BID [facility] Last Admin: 05/16/17 16:32 Dose: 1 cap Memantine (Namenda) 5 mg PO DAILY [facility] Last Admin: 05/16/17 08:29 Dose: 5 mg Ondansetron HCl (Zofran Inj) 4 mg IVP Q6H PRN PRN Reason: Nausea/Vomiting Pantoprazole Sodium (Protonix Inj) 40 mg IVP DAILY [facility] Last Admin: 05/16/17 08:30 Dose: 40 mg Paroxetine HCl (Paxil) 10 mg PO DAILY [facility] Last Admin: 05/16/17 08:29 Dose: 10 mg Sevelamer HCl (Renagel) 800 mg PO TID [facility] Last Admin: 05/16/17 16:33 Dose: 800 mg - Labs Labs: 05/17/17 05:40 05/17/17 05:40 PT 11.7 Seconds (9.8-13.1) 05/08/17 23:16 INR 1.0 (0.9-1.2) 05/08/17 23:16 APTT 32.4 Seconds (25.6-37.1) 05/08/17 23:16 Attending/Attestation - Attestation I have personally seen and examined this patient.: Yes I have fully participated in the care of the patient.: Yes I have reviewed all pertinent clinical information, including history, physical exam and plan: Yes
[2017-05-15] MEDS: Lactobacillus Acidophilus 500 MU Cap PO SCH ×2 (08:43→16:47)
[2017-05-15] MEDS: Sodium Chloride 0.9% 1,000 ML IV SCH (08:50)
--- NOTE | 2017-05-15 08:54 | PQF GENQUE ---
Dr. Romo, Consultants documented the following information with no mention of this diagnosis in your documentation. Please indicate in your next progress note your agreement with weight loss sales consultant or provide clarification that this diagnosis is not a current condition. Diagnosis: Sepsis due to UTI/ Acute Pyelonephritis Documented by: Dr. Snyder Location: an addendum note to Dr. Barragan's consult note of 05/09/2017 Diagnosis: Sepsis Documented by:Renal :Dr. Houston Location:05/14/17 progress note If in agreement with the diagnosis of Sepsis:is Sepsis: POA ? OR: Disagree OR: Other explanation of clinical finding 05/12 Resident note addendum:does not meet SIRS criteria anymore(On admission she did). Bacteremia with coag neg Staph and Yeast UTI, likely present prior to admission, unable to confirm since BCx and UCx results were obtained after admission and patient has no urinary symptoms. She does have Hx of multiple UTI and Urinary yeast infections in prior admissions 05/14 : Resident note dxs. include Bacteremia without SIRS -Most likely prior to admission -BCx positive for Coag neg Staph -Repeat blood culture from 05/13 x2 reveals no growth after 24 hours -Has been receiving vancomycin 1 gm IV every other day -Will c/w monitoring Vanco levels -Patient also on Rocephin IV -ID consulted: Recs appreciated 05/08 blood cultures x 2: coag neg staph and 05/10 urine culture: yeast species 05/08: pulse: 99->95->96->95->95 WBC: 18.7->19.6->16.3 with a left shift This form is a permanent part of the medical record Clarification of your documentation is requested to better reflect the severity of illness and intensity of treatment of your patient. Indicators present [] Specify: [] [] Specify: [] [] Specify: [] [] Specify: [] Location in the medical record that reflects the above clinical findings: [] Treatment Provided: [] PHYSICIAN'S RESPONSE Based on your medical judgment of the clinical indicators outlined above please clarify the following: [] Practitioner response [] If unable to determine, please check the box, sign and date. Present On Admission (POA) Indicator: [] Present at the time of admission [] Not present at the time of admission [] Clinically Undetermined In responding to this query, please exercise your independent professional judgment. The fact that a question is asked does not imply that any particular answer is desired or expected. Thank you for your clarification on this documentation. If you have any questions please call. * Thank you, Yumiko Sabillon RN ext. #[phone] MTDD
[2017-05-15] MEDS ORDERED: Sodium Chloride 0.9% 1,000 ML IV SCH ×2 (09:45→22:00)
[2017-05-15] MEDS: Fluconazole IV 100mg/50 ml NS 50 ML IVPB SCH (16:47)
--- NOTE | 2017-05-15 19:00 | CP.PCM.PN ---
Subjective - Date & Time of Evaluation Date of Evaluation: 05/15/17 Time of Evaluation: 14:00 - Subjective Subjective: CLINICALLY AND RENAL BETTER ALL PREVIOUS EMR REVIEWED FEELS MUCH BETTER Objective - Vital Signs/Intake and Output Vital Signs (last 24 hours): Temp Pulse Resp BP Pulse Ox 98.6 F 70 16 126/67 99 05/15/17 17:00 05/15/17 17:00 05/15/17 17:00 05/15/17 17:00 05/15/17 17:00 Intake and Output: 05/15/17 05/15/17 06:59 18:59 Intake Total 1500 1550 Output Total 2000 1999 Balance -500 -450 - Medications Medications: Current Medications Acetaminophen (Tylenol 325mg Tab) 650 mg PO Q6 PRN PRN Reason: Other Last Admin: 05/11/17 12:10 Dose: 650 mg Clotrimazole (Lotrimin 1% Cream) 1 applic TOP BID [facility] Last Admin: 05/15/17 16:51 Dose: 1 applic Docusate Sodium (Colace) 100 mg PO BID [facility] Last Admin: 05/15/17 16:49 Dose: 100 mg Heparin Sodium (Porcine) (Heparin) 5,000 units SC Q12 [facility] PRN Reason: Protocol Last Admin: 05/15/17 08:46 Dose: 5,000 units Ceftriaxone Sodium 1 gm/ (Sodium Chloride) 100 mls @ 100 mls/hr IVPB DAILY [facility] PRN Reason: Protocol Last Admin: 05/15/17 08:45 Dose: 100 mls/hr Fluconazole (Diflucan Iv 100 Mg/50 Ml Ns) 50 mls @ 50 mls/hr IVPB Q24H [facility] PRN Reason: Protocol Last Admin: 05/15/17 16:47 Dose: 50 mls/hr Insulin Human Regular (Humulin R) 0 units SC ACCU-CHECK [facility] PRN Reason: Protocol Last Admin: 05/15/17 16:50 Dose: 2 units Lactobacillus Acidophilus (Bacid Acidophilus) 1 cap PO BID [facility] Last Admin: 05/15/17 16:47 Dose: 1 cap Memantine (Namenda) 5 mg PO DAILY [facility] Last Admin: 05/15/17 08:45 Dose: 5 mg Ondansetron HCl (Zofran Inj) 4 mg IVP Q6H [facility] PRN Reason: Nausea/Vomiting Pantoprazole Sodium (Protonix Inj) 40 mg IVP DAILY [facility] Last Admin: 05/15/17 08:43 Dose: 40 mg Paroxetine HCl (Paxil) 10 mg PO DAILY [facility] Last Admin: 05/15/17 08:45 Dose: 10 mg Sevelamer HCl (Renagel) 800 mg PO TID [facility] Last Admin: 05/15/17 16:51 Dose: 800 mg - Labs Labs: 05/14/17 05:30 05/14/17 05:30 PT 11.7 Seconds (9.8-13.1) 05/08/17 23:16 INR 1.0 (0.9-1.2) 05/08/17 23:16 APTT 32.4 Seconds (25.6-37.1) 05/08/17 23:16 Assessment and Plan - Assessment and Plan (Free Text) Assessment: A ON CKD .. RENAL FUNCTION MUCH BETTER ELECTROLYTES ABN .. BETTER SEVER MET ACIDOSIS .. MUCH BETTER CHRONIC ADELAIDA HYDRO S/P CYSTO AND ADELAIDA STENTS INSERTION P : C/O CURRENT CARE
[2017-05-16 05:08] LABS: MEAN CELL VOLUME 80.5 fl (81.0-99.0); MEAN CORPUSCULAR HEMOGLOBIN 25.9 pg (27.0-31.0); MEAN CORPUSCULAR HGB CONC 32.2 g/dL (33.0-37.0); RED CELL DISTRIBUTION WIDTH 15.4 % (11.5-14.5); WHITE BLOOD COUNT 8.5 K/uL (4.8-10.8)
[2017-05-16] MEDS: Insulin Regular 100 units/ml SC SCH ×4 (07:13→22:13)
[2017-05-16 07:41] LABS: IRON 12 ug/dL (37-170)
--- NOTE | 2017-05-16 08:02 | CP.PCM.PN ---
<Aquiles Kern - Last Filed: 05/16/17 08:20> Subjective - Date & Time of Evaluation Date of Evaluation: 05/16/17 Time of Evaluation: 07:00 - Subjective Subjective: 76 y/o F seen at bedside in good spirits this morning. "Feels wonderful". Denies CP, palpitations, vomiting, nausea, abd pain. Patient had a BM this morning. Denies dysuria, vaginal itching, frequency, afebrile. Patient refused PT/OT treatment Yesterday. She states that she will take care of herself when she goes home but continues refusing home services or rehab. Objective - Vital Signs/Intake and Output Vital Signs (last 24 hours): Temp Pulse Resp BP Pulse Ox 99.5 F 70 23 147/80 100 05/16/17 00:33 05/16/17 05:00 05/16/17 05:00 05/16/17 05:00 05/16/17 05:00 Intake and Output: 05/16/17 05/16/17 06:59 18:59 Intake Total 900 Output Total 450 Balance 450 - Medications Medications: Current Medications Acetaminophen (Tylenol 325mg Tab) 650 mg PO Q6 PRN PRN Reason: Other Last Admin: 05/11/17 12:10 Dose: 650 mg Clotrimazole (Lotrimin 1% Cream) 1 applic TOP BID [facility] Last Admin: 05/15/17 16:51 Dose: 1 applic Docusate Sodium (Colace) 100 mg PO BID [facility] Last Admin: 05/15/17 16:49 Dose: 100 mg Heparin Sodium (Porcine) (Heparin) 5,000 units SC Q12 [facility] PRN Reason: Protocol Last Admin: 05/15/17 21:45 Dose: 5,000 units Ceftriaxone Sodium 1 gm/ (Sodium Chloride) 100 mls @ 100 mls/hr IVPB DAILY [facility] PRN Reason: Protocol Last Admin: 05/15/17 08:45 Dose: 100 mls/hr Fluconazole (Diflucan Iv 100 Mg/50 Ml Ns) 50 mls @ 50 mls/hr IVPB Q24H [facility] PRN Reason: Protocol Last Admin: 05/15/17 16:47 Dose: 50 mls/hr Sodium Chloride (Sodium Chloride 0.9%) 1,000 mls @ 75 mls/hr IV .[id number] [facility] Stop: 05/16/17 21:46 Last Admin: 05/15/17 22:21 Dose: 75 mls/hr Insulin Human Regular (Humulin R) 0 units SC ACCU-CHECK [facility] PRN Reason: Protocol Last Admin: 05/16/17 07:13 Dose: 2 units Lactobacillus Acidophilus (Bacid Acidophilus) 1 cap PO BID [facility] Last Admin: 05/15/17 16:47 Dose: 1 cap Memantine (Namenda) 5 mg PO DAILY [facility] Last Admin: 05/15/17 08:45 Dose: 5 mg Ondansetron HCl (Zofran Inj) 4 mg IVP Q6H PRN PRN Reason: Nausea/Vomiting Pantoprazole Sodium (Protonix Inj) 40 mg IVP DAILY [facility] Last Admin: 05/15/17 08:43 Dose: 40 mg Paroxetine HCl (Paxil) 10 mg PO DAILY [facility] Last Admin: 05/15/17 08:45 Dose: 10 mg Sevelamer HCl (Renagel) 800 mg PO TID [facility] Last Admin: 05/15/17 16:51 Dose: 800 mg - Labs Labs: 05/16/17 04:20 05/14/17 05:30 PT 11.7 Seconds (9.8-13.1) 05/08/17 23:16 INR 1.0 (0.9-1.2) 05/08/17 23:16 APTT 32.4 Seconds (25.6-37.1) 05/08/17 23:16 - Constitutional Appears: Non-toxic, No Acute Distress - Eye Exam Eye Exam: EOMI, PERRL - ENT Exam ENT Exam: Mucous Membranes Moist - Respiratory Exam Respiratory Exam: Clear to Ausculation Bilateral, NORMAL BREATHING PATTERN. absent: Rales, Respiratory Distress - Cardiovascular Exam Cardiovascular Exam: REGULAR RHYTHM, +S1, +S2 - GI/Abdominal Exam GI & Abdominal Exam: Soft. absent: Tenderness - Extremities Exam Extremities Exam: Normal Capillary Refill. absent: Tenderness - Neurological Exam Neurological Exam: Alert, Awake, Oriented x3 - Psychiatric Exam Additional comments: Insight, judgment fair. - Skin Skin Exam: Normal Color, Warm Assessment and Plan - Assessment and Plan (Free Text) Assessment: 76 y/o F with PMH including uncontrolled IDDM2, HTN, CKD4, Depression and history of medicine non-adherence/self neglect admitted for acidosis and acute on chronic kidney injury. Acute on Chronic Kidney Injury -Etiology likely due to DKA vs Prerenal azotemia -Improving -BUN/Cr 31/2.2 -IV fluids DCed -Nephrology consultation appreciated -Transfer to Med-Sx unit Anemia, chronic -Most likely chronic disease anemia -Iron, TIBC and Ferritin all low -Start Ferrous gluconate BID and Vit C for better absorption. -F/U EPO IDDM2 with complications -Uncontrolled. -C/W Lispro Sliding Scale medium dose -accucheck q6 Hydronephrosis, chronic -Poss due to chronic obstructive uropathy -S/P B/L JJ stent placement -Urine output good since stent placement Yeast UTI -most likely prior to admission -Patient has hx of multiple UTI/Asymptomatic bacteriuria including previous Yeast UTI -Recently instrumented -Continue Diflucan IV 100 mg daily (Started 05/12, Current day 5) HTN controlled -Valsartan 80mg PO Daily -Monitor BP Depression, chronic -Self neglect -Psych re-consulted. Awaiting for recs -Paxil 10mg PO Daily -C/W Namenda 5mg daily -human services program specialist consulted -Will consider contacting APS before discharge -Patient refused PT/OT treatment Yesterday. Prophylaxis -Heparin 5000 units SQ Q12h -Probiotics <Min Woody - Last Filed: 05/18/17 06:39> Objective - Vital Signs/Intake and Output Vital Signs (last 24 hours): Temp Pulse Resp BP Pulse Ox 98.6 F 71 18 121/76 98 05/18/17 00:00 05/18/17 00:00 05/18/17 00:00 05/18/17 00:00 05/18/17 00:00 - Medications Medications: Current Medications Acetaminophen (Tylenol 325mg Tab) 650 mg PO Q6 PRN PRN Reason: Other Last Admin: 05/11/17 12:10 Dose: 650 mg Ascorbic Acid (Vitamin C 250 Mg Tab) 250 mg PO BID [facility] Last Admin: 05/17/17 16:09 Dose: 250 mg Clotrimazole (Lotrimin 1% Cream) 1 applic TOP BID [facility] Last Admin: 05/17/17 16:10 Dose: 1 applic Docusate Sodium (Colace) 100 mg PO BID [facility] Last Admin: 05/17/17 16:09 Dose: 100 mg Ferrous Gluconate (Fergon) 324 mg PO BID [facility] Last Admin: 05/17/17 16:09 Dose: 324 mg Heparin Sodium (Porcine) (Heparin) 5,000 units SC Q12 [facility] PRN Reason: Protocol Last Admin: 05/17/17 21:42 Dose: 5,000 units Ceftriaxone Sodium 1 gm/ (Sodium Chloride) 100 mls @ 100 mls/hr IVPB DAILY [facility] PRN Reason: Protocol Last Admin: 05/17/17 08:51 Dose: 100 mls/hr Fluconazole (Diflucan Iv 100 Mg/50 Ml Ns) 50 mls @ 50 mls/hr IVPB Q24H [facility] PRN Reason: Protocol Last Admin: 05/17/17 17:06 Dose: 50 mls/hr Iron Sucrose 100 mg/ Sodium (Chloride) 105 mls @ 105 mls/hr IVPB DAILY [facility] Last Admin: 05/17/17 10:35 Dose: 105 mls/hr Insulin Human Regular (Humulin R) 0 units SC ACCU-CHECK [facility] PRN Reason: Protocol Last Admin: 05/17/17 23:04 Dose: Not Given Lactobacillus Acidophilus (Bacid Acidophilus) 1 cap PO BID [facility] Last Admin: 05/17/17 16:09 Dose: 1 cap Memantine (Namenda) 5 mg PO DAILY [facility] Last Admin: 05/17/17 08:49 Dose: 5 mg Ondansetron HCl (Zofran Inj) 4 mg IVP Q6H PRN PRN Reason: Nausea/Vomiting Pantoprazole Sodium (Protonix Inj) 40 mg IVP DAILY [facility] Last Admin: 05/17/17 08:50 Dose: 40 mg Paroxetine HCl (Paxil) 10 mg PO DAILY [facility] Last Admin: 05/17/17 08:49 Dose: 10 mg Sevelamer HCl (Renagel) 800 mg PO TID [facility] Last Admin: 05/17/17 16:09 Dose: 800 mg Sodium Bicarbonate (Sodium Bicarbonate Tab) 650 mg PO Q8 [facility] Last Admin: 05/18/17 02:00 Dose: 650 mg Vitamin B Complex/Vit C/Folic Acid (Nephro-Evon) 1 tab PO DAILY [facility] - Labs Labs: 05/17/17 05:40 05/17/17 05:40 PT 11.7 Seconds (9.8-13.1) 05/08/17 23:16 INR 1.0 (0.9-1.2) 05/08/17 23:16 APTT 32.4 Seconds (25.6-37.1) 05/08/17 23:16 Attending/Attestation - Attestation I have personally seen and examined this patient.: Yes I have fully participated in the care of the patient.: Yes I have reviewed all pertinent clinical information, including history, physical exam and plan: Yes
[2017-05-16] MEDS: Lactobacillus Acidophilus 500 MU Cap PO SCH ×2 (08:29→16:32)
[2017-05-16] MEDS: Fluconazole IV 100mg/50 ml NS 50 ML IVPB SCH (16:48)
--- NOTE | 2017-05-16 19:22 | CP.PCM.PN ---
Subjective - Date & Time of Evaluation Date of Evaluation: 05/16/17 Time of Evaluation: 14:00 - Subjective Subjective: SEEN ON RENAL F/U FEELS MUCH IMPROVED CLINICALLY WELL RENAL MUCH BETTER ALL PREVIOUS EMR REVIEWED Objective - Vital Signs/Intake and Output Vital Signs (last 24 hours): Temp Pulse Resp BP Pulse Ox 98.9 F 79 18 118/68 100 05/16/17 18:40 05/16/17 18:40 05/16/17 18:40 05/16/17 18:40 05/16/17 18:40 Intake and Output: 05/16/17 05/17/17 18:59 06:59 Intake Total 1980 Output Total 100 Balance 1880 - Medications Medications: Current Medications Acetaminophen (Tylenol 325mg Tab) 650 mg PO Q6 PRN PRN Reason: Other Last Admin: 05/11/17 12:10 Dose: 650 mg Ascorbic Acid (Vitamin C 250 Mg Tab) 250 mg PO BID [facility] Last Admin: 05/16/17 16:33 Dose: 250 mg Clotrimazole (Lotrimin 1% Cream) 1 applic TOP BID [facility] Last Admin: 05/16/17 16:34 Dose: 1 applic Docusate Sodium (Colace) 100 mg PO BID [facility] Last Admin: 05/16/17 16:33 Dose: Not Given Ferrous Gluconate (Fergon) 324 mg PO BID [facility] Last Admin: 05/16/17 16:33 Dose: 324 mg Heparin Sodium (Porcine) (Heparin) 5,000 units SC Q12 [facility] PRN Reason: Protocol Last Admin: 05/16/17 08:29 Dose: 5,000 units Ceftriaxone Sodium 1 gm/ (Sodium Chloride) 100 mls @ 100 mls/hr IVPB DAILY [facility] PRN Reason: Protocol Last Admin: 05/16/17 08:31 Dose: 100 mls/hr Fluconazole (Diflucan Iv 100 Mg/50 Ml Ns) 50 mls @ 50 mls/hr IVPB Q24H [facility] PRN Reason: Protocol Last Admin: 05/16/17 16:48 Dose: 50 mls/hr Insulin Human Regular (Humulin R) 0 units SC ACCU-CHECK [facility] PRN Reason: Protocol Last Admin: 05/16/17 16:34 Dose: 3 units Lactobacillus Acidophilus (Bacid Acidophilus) 1 cap PO BID [facility] Last Admin: 05/16/17 16:32 Dose: 1 cap Memantine (Namenda) 5 mg PO DAILY [facility] Last Admin: 05/16/17 08:29 Dose: 5 mg Ondansetron HCl (Zofran Inj) 4 mg IVP Q6H PRN PRN Reason: Nausea/Vomiting Pantoprazole Sodium (Protonix Inj) 40 mg IVP DAILY [facility] Last Admin: 05/16/17 08:30 Dose: 40 mg Paroxetine HCl (Paxil) 10 mg PO DAILY [facility] Last Admin: 05/16/17 08:29 Dose: 10 mg Sevelamer HCl (Renagel) 800 mg PO TID [facility] Last Admin: 05/16/17 16:33 Dose: 800 mg - Labs Labs: 05/16/17 04:20 05/14/17 05:30 PT 11.7 Seconds (9.8-13.1) 05/08/17 23:16 INR 1.0 (0.9-1.2) 05/08/17 23:16 APTT 32.4 Seconds (25.6-37.1) 05/08/17 23:16 Assessment and Plan - Assessment and Plan (Free Text) Assessment: A ON CKD .. RENAL FUNCTION BACK TO BASELINE ANEMIA OF CKD WELL IRON DEF .. ADD VENOFER ADELAIDA HYDRONEPHROSIS .. S/P ADELAIDA STENTS S/P SEVERE ELECTOLYTES ABN .. BETTER S/P ET ACIDOSIS .. BETTER SEPSIS .. FUNGUS IN URINE P : C/O CURRENT CARE C/O PRESENT MANAGEMENT ADD VENOFER 100 MG DAILY X 5
[2017-05-17 06:14] LABS: HEMATOCRIT 27.2 % (34.0-47.0); MEAN CELL VOLUME 79.1 fl (81.0-99.0); MEAN CORPUSCULAR HEMOGLOBIN 26.1 pg (27.0-31.0); RED CELL DISTRIBUTION WIDTH 15.2 % (11.5-14.5); WHITE BLOOD COUNT 9.4 K/uL (4.8-10.8)
[2017-05-17 06:43] LABS: CALCIUM 7.9 mg/dL (8.4-10.2); POTASSIUM 4.1 MMOL/L (3.6-5.0)
--- NOTE | 2017-05-17 08:42 | CP.PCM.PN ---
<Aquiles Kern - Last Filed: 05/17/17 08:52> Subjective - Date & Time of Evaluation Date of Evaluation: 05/17/17 Time of Evaluation: 07:40 - Subjective Subjective: 76 y/o F seen at bedside this morning. She was transferred to Med-Sx unit Yesterday. Was able to start PT Yesterday but "she felt very weak soon". Denies CP, SOB, palpitations, diarrhea, vomiting. Tolerating PO. Renal function stable. Evaluated by Nephro and started on Venofer. Objective - Vital Signs/Intake and Output Vital Signs (last 24 hours): Temp Pulse Resp BP Pulse Ox 98.9 F 67 20 132/75 100 05/17/17 08:21 05/17/17 08:21 05/17/17 08:21 05/17/17 08:21 05/17/17 08:21 - Medications Medications: Current Medications Acetaminophen (Tylenol 325mg Tab) 650 mg PO Q6 PRN PRN Reason: Other Last Admin: 05/11/17 12:10 Dose: 650 mg Ascorbic Acid (Vitamin C 250 Mg Tab) 250 mg PO BID [facility] Last Admin: 05/16/17 16:33 Dose: 250 mg Clotrimazole (Lotrimin 1% Cream) 1 applic TOP BID [facility] Last Admin: 05/16/17 16:34 Dose: 1 applic Docusate Sodium (Colace) 100 mg PO BID [facility] Last Admin: 05/16/17 16:33 Dose: Not Given Ferrous Gluconate (Fergon) 324 mg PO BID [facility] Last Admin: 05/16/17 16:33 Dose: 324 mg Heparin Sodium (Porcine) (Heparin) 5,000 units SC Q12 [facility] PRN Reason: Protocol Last Admin: 05/16/17 21:36 Dose: 5,000 units Ceftriaxone Sodium 1 gm/ (Sodium Chloride) 100 mls @ 100 mls/hr IVPB DAILY [facility] PRN Reason: Protocol Last Admin: 05/16/17 08:31 Dose: 100 mls/hr Fluconazole (Diflucan Iv 100 Mg/50 Ml Ns) 50 mls @ 50 mls/hr IVPB Q24H [facility] PRN Reason: Protocol Last Admin: 05/16/17 16:48 Dose: 50 mls/hr Iron Sucrose 100 mg/ Sodium (Chloride) 105 mls @ 105 mls/hr IVPB DAILY [facility] Insulin Human Regular (Humulin R) 0 units SC ACCU-CHECK [facility] PRN Reason: Protocol Last Admin: 05/16/17 22:13 Dose: Not Given Lactobacillus Acidophilus (Bacid Acidophilus) 1 cap PO BID [facility] Last Admin: 05/16/17 16:32 Dose: 1 cap Memantine (Namenda) 5 mg PO DAILY [facility] Last Admin: 05/16/17 08:29 Dose: 5 mg Ondansetron HCl (Zofran Inj) 4 mg IVP Q6H PRN PRN Reason: Nausea/Vomiting Pantoprazole Sodium (Protonix Inj) 40 mg IVP DAILY [facility] Last Admin: 05/16/17 08:30 Dose: 40 mg Paroxetine HCl (Paxil) 10 mg PO DAILY [facility] Last Admin: 05/16/17 08:29 Dose: 10 mg Sevelamer HCl (Renagel) 800 mg PO TID [facility] Last Admin: 05/16/17 16:33 Dose: 800 mg - Labs Labs: 05/17/17 05:40 05/17/17 05:40 PT 11.7 Seconds (9.8-13.1) 05/08/17 23:16 INR 1.0 (0.9-1.2) 05/08/17 23:16 APTT 32.4 Seconds (25.6-37.1) 05/08/17 23:16 - Constitutional Appears: Non-toxic, No Acute Distress - Eye Exam Eye Exam: EOMI - ENT Exam ENT Exam: Mucous Membranes Moist - Respiratory Exam Respiratory Exam: Clear to Ausculation Bilateral, NORMAL BREATHING PATTERN. absent: Rales, Respiratory Distress - Cardiovascular Exam Cardiovascular Exam: REGULAR RHYTHM, +S1, +S2. absent: Murmur - GI/Abdominal Exam GI & Abdominal Exam: Soft, Normal Bowel Sounds. absent: Tenderness - Extremities Exam Extremities Exam: Normal Capillary Refill, Pedal Edema (+1) - Neurological Exam Neurological Exam: Alert, Awake, Oriented x3 - Skin Skin Exam: Normal Color, Warm Assessment and Plan - Assessment and Plan (Free Text) Assessment: 76 y/o F with PMH including uncontrolled IDDM2, HTN, CKD4, Depression and history of medicine non-adherence/self neglect admitted for acidosis and acute on chronic kidney injury. Acute on Chronic Kidney Injury -Etiology likely due to DKA vs Prerenal azotemia -Stable -BUN/Cr 27/2.3 -Nephrology consultation appreciated Anemia, chronic -Stable. Hgb 9 -Most likely chronic disease anemia -Iron, TIBC and Ferritin all low -On Iron PO -Venofer IV started by Nephrology -F/U EPO IDDM2 with complications -Uncontrolled. -C/W Lispro Sliding Scale medium dose -accucheck q6 Hydronephrosis, chronic -Poss due to chronic obstructive uropathy -S/P B/L JJ stent placement -Urine output good since stent placement Yeast UTI -most likely prior to admission -Patient has hx of multiple UTI/Asymptomatic bacteriuria including previous Yeast UTI -Recently instrumented -Continue Diflucan IV 100 mg daily (Started 05/12, Current day 6) -BCx negative HTN controlled -Valsartan 80mg PO Daily -Monitor BP Depression, chronic -Self neglect -Psych re-consulted. Awaiting for recs -Paxil 10mg PO Daily -C/W Namenda 5mg daily -security services specialist consulted -Will consider contacting APS before discharge Deconditioning/Unsteady gait -On PT treatment who recommends TCU after DC. Prophylaxis -Heparin 5000 units SQ Q12h -Probiotics <Jose Juan Boswell - Last Filed: 05/22/17 16:40> Objective - Vital Signs/Intake and Output Vital Signs (last 24 hours): Temp Pulse Resp BP Pulse Ox 98.6 F 77 20 106/58 L 98 05/22/17 08:39 05/22/17 16:14 05/22/17 08:39 05/22/17 08:39 05/22/17 16:14 - Medications Medications: Current Medications Acetaminophen (Tylenol 325mg Tab) 650 mg PO Q6 PRN PRN Reason: Other Last Admin: 05/11/17 12:10 Dose: 650 mg Clotrimazole (Lotrimin 1% Cream) 1 applic TOP BID [facility] Last Admin: 05/22/17 08:32 Dose: 1 applic Ergocalciferol (Drisdol 50,000 Intl Units Cap) 1 cap PO Q7D [facility] Last Admin: 05/22/17 09:59 Dose: 1 cap Heparin Sodium (Porcine) (Heparin) 5,000 units SC Q12 [facility] PRN Reason: Protocol Last Admin: 05/22/17 08:33 Dose: 5,000 units Iron Sucrose 100 mg/ Sodium (Chloride) 105 mls @ 105 mls/hr IVPB DAILY [facility] Last Admin: 05/22/17 09:59 Dose: 105 mls/hr Insulin Human Regular (Humulin R) 0 units SC ACCU-CHECK [facility] PRN Reason: Protocol Last Admin: 05/22/17 12:37 Dose: 4 units Memantine (Namenda) 5 mg PO DAILY [facility] Last Admin: 05/22/17 08:32 Dose: 5 mg Ondansetron HCl (Zofran Inj) 4 mg IVP Q6H PRN PRN Reason: Nausea/Vomiting Paroxetine HCl (Paxil) 10 mg PO DAILY [facility] Last Admin: 05/22/17 08:33 Dose: 10 mg Sevelamer HCl (Renagel) 800 mg PO TID [facility] Last Admin: 05/22/17 12:37 Dose: 800 mg Sodium Bicarbonate (Sodium Bicarbonate Tab) 650 mg PO Q8 [facility] Last Admin: 05/22/17 08:33 Dose: 650 mg Vitamin B Complex/Vit C/Folic Acid (Nephro-Evon) 1 tab PO DAILY [facility] Last Admin: 05/22/17 08:33 Dose: 1 tab - Labs Labs: 05/20/17 05:30 05/20/17 06:30 PT 11.7 Seconds (9.8-13.1) 05/08/17 23:16 INR 1.0 (0.9-1.2) 05/08/17 23:16 APTT 32.4 Seconds (25.6-37.1) 05/08/17 23:16 Attending/Attestation - Attestation I have personally seen and examined this patient.: Yes I have fully participated in the care of the patient.: Yes I have reviewed all pertinent clinical information, including history, physical exam and plan: Yes
[2017-05-17] MEDS: Insulin Regular 100 units/ml SC SCH ×4 (08:49→23:04)
[2017-05-17] MEDS: Lactobacillus Acidophilus 500 MU Cap PO SCH ×2 (08:53→16:09)
--- NOTE | 2017-05-17 12:11 | VASCULAR ---
PROCEDURE: Date of procedure: 05/12/2017 Procedure: 1. Placement of a right arm PICC with ultrasound and fluoroscopic guidance, CPT 09588 2. PICC tip confirmation with spot radiograph and is in the superior vena cava Medications: 1 percent lidocaine Total 4.5 seconds MGy 0.30 EBL: 2 cc HISTORY: Infection requiring long-term IV antibiotics TECHNIQUE: Following informed consent and procedure time-out, the patient was placed supine on the interventional table and the right arm prepped and draped in the usual sterile fashion. Ultrasound showed a patent and compressible right basilic vein. After the skin was anesthetized with lidocaine, the basilic vein was accessed with micro micropuncture technique using ultrasound guidance. A guidewire was then advanced under fluoroscopic guidance into the superior vena cava. An image documenting ultrasound guidance for vascular access was permanently saved. The length of the dual-lumen 5 Setswana PICC was trimmed to 40 centimeters and advanced through a peel-away sheath. The PICC was position with tip of PICC confirm a spot radiograph the superior vena cava. The PICC was secured to the patient's skin. The PICC was flushed. A biopatch and sterile dressing was applied. IMPRESSION: Placement of a dual-lumen 5 Setswana PICC trimmed to 40 centimeters via right basilic vein. The tip of the PICC is confirmed with spot radiograph and is in the superior vena cava.
[2017-05-17] MEDS: Fluconazole IV 100mg/50 ml NS 50 ML IVPB SCH (17:06)
[2017-05-18] MEDS: Insulin Regular 100 units/ml SC SCH ×3 (07:19→16:31)
[2017-05-18 07:57] LABS: MEAN CELL VOLUME 78.7 fl (81.0-99.0); MEAN CORPUSCULAR HEMOGLOBIN 26.2 pg (27.0-31.0); MEAN CORPUSCULAR HGB CONC 33.3 g/dL (33.0-37.0); RED CELL DISTRIBUTION WIDTH 15.5 % (11.5-14.5); WHITE BLOOD COUNT 10.7 K/uL (4.8-10.8)
[2017-05-18 08:08] LABS: ALB/GLOB RATIO 0.7 (1.0-2.1); ALKALINE PHOSPHATASE 105 U/L (38-126); ALT/SGPT 19 U/L (9-52); AST/SGOT 11 U/L (14-36); BILIRUBIN,TOTAL < 0.1 mg/dl (0.2-1.3); BLOOD UREA NITROGEN 27 mg/dl (7-17); CALCIUM 7.9 mg/dL (8.4-10.2); CARBON DIOXIDE 16 mmol/L (22-30); CHLORIDE 113 mmol/L (98-107); GFR AFRICAN-AMERICAN 24; GLUCOSE,RANDOM 135 mg/dL (65-105); POTASSIUM 4.1 MMOL/L (3.6-5.0); SODIUM 136 mmol/l (132-148); TOTAL PROTEIN 5.2 G/DL (6.3-8.2)
[2017-05-18] MEDS: Multivitamin Vitamin B Complex (Nephro-Vite) Tab PO SCH (08:20)
[2017-05-18] MEDS: Lactobacillus Acidophilus 500 MU Cap PO SCH (08:20)
--- NOTE | 2017-05-18 09:50 | CP.PCM.PN ---
<qAuiles Kern - Last Filed: 05/18/17 11:34> Subjective - Date & Time of Evaluation Date of Evaluation: 05/18/17 Time of Evaluation: 11:10 - Subjective Subjective: 76 y/o seen sitting in chair, not acute distress. Denies CP, palpitations, SOB, diarrhea, vomiting. Patient tolerating PO. During encounter patient started crying stating that "she wants to go home soon". Patient making progress during PT sessions. Medically stable. Will discuss with PMD Dr Ceron tomorrow about plan. PT recommending TCU after discharge. Objective - Vital Signs/Intake and Output Vital Signs (last 24 hours): Temp Pulse Resp BP Pulse Ox 97.9 F 63 20 132/83 100 05/18/17 08:08 05/18/17 08:08 05/18/17 08:08 05/18/17 08:08 05/18/17 08:08 - Medications Medications: Current Medications Acetaminophen (Tylenol 325mg Tab) 650 mg PO Q6 PRN PRN Reason: Other Last Admin: 05/11/17 12:10 Dose: 650 mg Ascorbic Acid (Vitamin C 250 Mg Tab) 250 mg PO BID [facility] Last Admin: 05/18/17 08:20 Dose: 250 mg Clotrimazole (Lotrimin 1% Cream) 1 applic TOP BID [facility] Last Admin: 05/18/17 08:20 Dose: 1 applic Docusate Sodium (Colace) 100 mg PO BID [facility] Last Admin: 05/18/17 08:20 Dose: 100 mg Ferrous Gluconate (Fergon) 324 mg PO BID [facility] Last Admin: 05/18/17 08:21 Dose: 324 mg Heparin Sodium (Porcine) (Heparin) 5,000 units SC Q12 [facility] PRN Reason: Protocol Last Admin: 05/18/17 08:21 Dose: 5,000 units Fluconazole (Diflucan Iv 100 Mg/50 Ml Ns) 50 mls @ 50 mls/hr IVPB Q24H [facility] PRN Reason: Protocol Last Admin: 05/17/17 17:06 Dose: 50 mls/hr Iron Sucrose 100 mg/ Sodium (Chloride) 105 mls @ 105 mls/hr IVPB DAILY [facility] Last Admin: 05/17/17 10:35 Dose: 105 mls/hr Insulin Human Regular (Humulin R) 0 units SC ACCU-CHECK [facility] PRN Reason: Protocol Last Admin: 05/18/17 07:19 Dose: Not Given Lactobacillus Acidophilus (Bacid Acidophilus) 1 cap PO BID [facility] Last Admin: 05/18/17 08:20 Dose: 1 cap Memantine (Namenda) 5 mg PO DAILY [facility] Last Admin: 05/18/17 08:21 Dose: 5 mg Ondansetron HCl (Zofran Inj) 4 mg IVP Q6H PRN PRN Reason: Nausea/Vomiting Pantoprazole Sodium (Protonix Inj) 40 mg IVP DAILY [facility] Last Admin: 05/18/17 08:20 Dose: 40 mg Paroxetine HCl (Paxil) 10 mg PO DAILY [facility] Last Admin: 05/18/17 08:21 Dose: 10 mg Sevelamer HCl (Renagel) 800 mg PO TID [facility] Last Admin: 05/18/17 08:20 Dose: 800 mg Sodium Bicarbonate (Sodium Bicarbonate Tab) 650 mg PO Q8 [facility] Last Admin: 05/18/17 08:19 Dose: 650 mg Vitamin B Complex/Vit C/Folic Acid (Nephro-Evon) 1 tab PO DAILY [facility] Last Admin: 05/18/17 08:20 Dose: 1 tab - Labs Labs: 05/18/17 07:46 05/18/17 07:46 PT 11.7 Seconds (9.8-13.1) 05/08/17 23:16 INR 1.0 (0.9-1.2) 05/08/17 23:16 APTT 32.4 Seconds (25.6-37.1) 05/08/17 23:16 - Constitutional Appears: Non-toxic, Other (Sad) - Eye Exam Eye Exam: EOMI, PERRL - ENT Exam ENT Exam: Mucous Membranes Moist - Respiratory Exam Respiratory Exam: NORMAL BREATHING PATTERN. absent: Respiratory Distress - Extremities Exam Extremities Exam: Normal Inspection - Neurological Exam Neurological Exam: Alert, Awake - Psychiatric Exam Psychiatric exam: Depressed. absent: Suicidal Ideation - Skin Skin Exam: Intact (on exposed areas), Normal Color Assessment and Plan - Assessment and Plan (Free Text) Assessment: 76 y/o F with PMH including uncontrolled IDDM2, HTN, CKD4, Depression and history of medicine non-adherence/self neglect admitted for acidosis and acute on chronic kidney injury. Acute on Chronic Kidney Injury -Etiology likely due to DKA vs Prerenal azotemia -BUN/Cr 27/2.4. Improved -Nephrology consultation appreciated -Sodium Bicarb Q8h -Sevelamer TID Anemia, chronic -Stable. Hgb 9 -Most likely chronic disease anemia -C/W Venofer IV -F/U EPO IDDM2 with complications -Uncontrolled. -C/W Lispro Sliding Scale medium dose -accucheck q6 Hydronephrosis, chronic -Poss due to chronic obstructive uropathy -S/P B/L JJ stent placement -Urine output good since stent placement Yeast UTI -most likely prior to admission -Patient has hx of multiple UTI/Asymptomatic bacteriuria including previous Yeast UTI -Recently instrumented -Continue Diflucan IV 100 mg daily (Started 05/12, Current day 7) -BCx negative HTN controlled -Valsartan 80mg PO Daily -Monitor BP Depression, chronic -Uncontrolled -Psych re-consulted again Today. Awaiting for recs -Paxil 10mg PO Daily -C/W Namenda 5mg daily -manager services consulted -Will consider contacting APS before discharge Deconditioning/Unsteady gait -On PT treatment who recommends TCU after DC. Prophylaxis -Heparin 5000 units SQ Q12h -Probiotics <Min Woody - Last Filed: 05/19/17 06:49> Objective - Vital Signs/Intake and Output Vital Signs (last 24 hours): Temp Pulse Resp BP Pulse Ox 98.3 F 70 19 122/74 100 05/19/17 00:02 05/19/17 00:02 05/19/17 00:02 05/19/17 00:02 05/19/17 00:02 - Medications Medications: Current Medications Acetaminophen (Tylenol 325mg Tab) 650 mg PO Q6 PRN PRN Reason: Other Last Admin: 05/11/17 12:10 Dose: 650 mg Ascorbic Acid (Vitamin C 250 Mg Tab) 250 mg PO BID [facility] Last Admin: 05/18/17 08:20 Dose: 250 mg Clotrimazole (Lotrimin 1% Cream) 1 applic TOP BID [facility] Last Admin: 05/18/17 16:31 Dose: 1 applic Docusate Sodium (Colace) 100 mg PO BID [facility] Last Admin: 05/18/17 16:31 Dose: 100 mg Ferrous Gluconate (Fergon) 324 mg PO BID [facility] Last Admin: 05/18/17 08:21 Dose: 324 mg Heparin Sodium (Porcine) (Heparin) 5,000 units SC Q12 [facility] PRN Reason: Protocol Last Admin: 05/18/17 21:19 Dose: 5,000 units Fluconazole (Diflucan Iv 100 Mg/50 Ml Ns) 50 mls @ 50 mls/hr IVPB Q24H [facility] PRN Reason: Protocol Last Admin: 05/18/17 16:44 Dose: 50 mls/hr Iron Sucrose 100 mg/ Sodium (Chloride) 105 mls @ 105 mls/hr IVPB DAILY [facility] Last Admin: 05/18/17 10:50 Dose: 105 mls/hr Insulin Human Regular (Humulin R) 0 units SC ACCU-CHECK [facility] PRN Reason: Protocol Last Admin: 05/19/17 00:44 Dose: Not Given Memantine (Namenda) 5 mg PO DAILY [facility] Last Admin: 05/18/17 08:21 Dose: 5 mg Ondansetron HCl (Zofran Inj) 4 mg IVP Q6H PRN PRN Reason: Nausea/Vomiting Pantoprazole Sodium (Protonix Inj) 40 mg IVP DAILY [facility] Last Admin: 05/18/17 08:20 Dose: 40 mg Paroxetine HCl (Paxil) 10 mg PO DAILY [facility] Last Admin: 05/18/17 08:21 Dose: 10 mg Sevelamer HCl (Renagel) 800 mg PO TID [facility] Last Admin: 05/18/17 16:31 Dose: 800 mg Sodium Bicarbonate (Sodium Bicarbonate Tab) 650 mg PO Q8 [facility] Last Admin: 05/19/17 00:45 Dose: 650 mg Vitamin B Complex/Vit C/Folic Acid (Nephro-Evon) 1 tab PO DAILY [facility] Last Admin: 05/18/17 08:20 Dose: 1 tab - Labs Labs: 05/18/17 07:46 05/18/17 07:46 PT 11.7 Seconds (9.8-13.1) 05/08/17 23:16 INR 1.0 (0.9-1.2) 05/08/17 23:16 APTT 32.4 Seconds (25.6-37.1) 05/08/17 23:16 Attending/Attestation - Attestation I have personally seen and examined this patient.: Yes I have fully participated in the care of the patient.: Yes I have reviewed all pertinent clinical information, including history, physical exam and plan: Yes
--- NOTE | 2017-05-18 15:07 | CP.PCM.CON ---
History of Present Illness - History of Present Illness History of Present Illness: this is a follow up consult pt with previous diagnosis of depression, admitted to medicine as patient was non compliant with her medicine for diabetes ended up in acidosis and transferred by ambulance on initial evaluation pt presented with depression which stemmed from her passing away a year ago and her children not being close to her, pt neglected her health also neglected her personal hygiene , presented with passive suicidal ideations in terms of feeling taking her medications may not be necessary on initial evaluation also pt was oriented only to person and partialy to time pt on evaluation today appeared more kempt however as interview progressed presented with depressed mood tearfull and sad as she does not have relation with her children and they do not attend to her pt presenting with sense of guilt and remorse and feeling of worhtlesness pt presenting with severe depression yet refusing admission to psychiatric unit voluntarily denied suicide or homicide ideations denied psychotic symptoms oriented to person and place Past Patient History - Infectious Disease Hx of Infectious Diseases: None - Past Medical History & Family History Past Medical History?: Yes - Past Social History Smoking Status: Never Smoked - CARDIAC Hx Cardiac Disorders: Yes - PULMONARY Hx Chronic Obstructive Pulmonary Disease (COPD): Yes Hx Pneumonia: Yes - NEUROLOGICAL Hx Neurological Disorder: No - HEENT Hx HEENT Problems: Yes - RENAL Hx Chronic Kidney Disease: Yes - ENDOCRINE/METABOLIC Hx Endocrine Disorders: Yes - HEMATOLOGICAL/ONCOLOGICAL Hx Human Immunodeficiency Virus (HIV): No - INTEGUMENTARY Hx Dermatological Problems: No - MUSCULOSKELETAL/RHEUMATOLOGICAL Hx Arthritis: Yes - GASTROINTESTINAL Hx Gastrointestinal Disorders: No - GENITOURINARY/GYNECOLOGICAL Hx Genitourinary Disorders: No - PSYCHIATRIC Hx Anxiety: Yes Hx Depression: Yes - SURGICAL HISTORY Hx Tonsillectomy: Yes - ANESTHESIA Hx Anesthesia: No Hx Anesthesia Reactions: No Hx Malignant Hyperthermia: No Meds Allergies/Adverse Reactions: Allergies Allergy/AdvReac Type Severity Reaction Status Date / Time No Known Allergies Allergy Verified 05/08/17 21:15 - Medications Medications: Current Medications Acetaminophen (Tylenol 325mg Tab) 650 mg PO Q6 PRN PRN Reason: Other Last Admin: 05/11/17 12:10 Dose: 650 mg Ascorbic Acid (Vitamin C 250 Mg Tab) 250 mg PO BID [facility] Last Admin: 05/18/17 08:20 Dose: 250 mg Clotrimazole (Lotrimin 1% Cream) 1 applic TOP BID [facility] Last Admin: 05/18/17 08:20 Dose: 1 applic Docusate Sodium (Colace) 100 mg PO BID [facility] Last Admin: 05/18/17 08:20 Dose: 100 mg Ferrous Gluconate (Fergon) 324 mg PO BID [facility] Last Admin: 05/18/17 08:21 Dose: 324 mg Heparin Sodium (Porcine) (Heparin) 5,000 units SC Q12 [facility] PRN Reason: Protocol Last Admin: 05/18/17 08:21 Dose: 5,000 units Fluconazole (Diflucan Iv 100 Mg/50 Ml Ns) 50 mls @ 50 mls/hr IVPB Q24H [facility] PRN Reason: Protocol Last Admin: 05/17/17 17:06 Dose: 50 mls/hr Iron Sucrose 100 mg/ Sodium (Chloride) 105 mls @ 105 mls/hr IVPB DAILY [facility] Last Admin: 05/18/17 10:50 Dose: 105 mls/hr Insulin Human Regular (Humulin R) 0 units SC ACCU-CHECK [facility] PRN Reason: Protocol Last Admin: 05/18/17 12:25 Dose: 6 units Memantine (Namenda) 5 mg PO DAILY [facility] Last Admin: 05/18/17 08:21 Dose: 5 mg Ondansetron HCl (Zofran Inj) 4 mg IVP Q6H PRN PRN Reason: Nausea/Vomiting Pantoprazole Sodium (Protonix Inj) 40 mg IVP DAILY [facility] Last Admin: 05/18/17 08:20 Dose: 40 mg Paroxetine HCl (Paxil) 10 mg PO DAILY [facility] Last Admin: 05/18/17 08:21 Dose: 10 mg Sevelamer HCl (Renagel) 800 mg PO TID [facility] Last Admin: 05/18/17 12:26 Dose: 800 mg Sodium Bicarbonate (Sodium Bicarbonate Tab) 650 mg PO Q8 [facility] Last Admin: 05/18/17 08:19 Dose: 650 mg Vitamin B Complex/Vit C/Folic Acid (Nephro-Evon) 1 tab PO DAILY [facility] Last Admin: 05/18/17 08:20 Dose: 1 tab Physical Exam - Psychiatric Exam Psychiatric exam: Depressed Additional comments: pt seen on a chair, partial eye contact , speech soft and slow . tearful mood stating i am guilty affect very depressed, thought form coherent denied any current suicidal or homicidal ideations denied perceptual disturbances, alert awake oriented to person and place partialy to time Results - Vital Signs Recent Vital Signs: Last Vital Signs Temp 97.9 F 05/18/17 08:08 Pulse 63 05/18/17 08:08 Resp 20 05/18/17 08:08 BP 132/83 05/18/17 08:08 Pulse Ox 100 05/18/17 08:08 - Labs Result Diagrams: 05/18/17 07:46 05/18/17 07:46 Labs: Laboratory Results - last 24 hr 05/17/17 05/17/17 05/17/17 05:40 15:59 22:16 WBC RBC Hgb Hct MCV MCH MCHC RDW Plt Count Sodium Potassium Chloride Carbon Dioxide Anion Gap BUN Creatinine Est GFR ( Amer) Est GFR (Non-Af Amer) POC Glucose (mg/dL) 146 H 205 H Random Glucose Calcium Erythropoietin 10.1 Total Bilirubin AST ALT Alkaline Phosphatase Total Protein Albumin Globulin Albumin/Globulin Ratio 05/18/17 05/18/17 05/18/17 07:46 07:46 12:24 WBC 10.7 RBC 3.43 L Hgb 9.0 L Hct 27.0 L MCV 78.7 L MCH 26.2 L MCHC 33.3 RDW 15.5 H Plt Count 182 Sodium 136 Potassium 4.1 Chloride 113 H Carbon Dioxide 16 L Anion Gap 11 BUN 27 H Creatinine 2.4 H Est GFR ( Amer) 24 Est GFR (Non-Af Amer) 20 POC Glucose (mg/dL) 309 H Random Glucose 135 H Calcium 7.9 L Erythropoietin Total Bilirubin < 0.1 L AST 11 L D ALT 19 Alkaline Phosphatase 105 Total Protein 5.2 L Albumin 2.1 L Globulin 3.0 Albumin/Globulin Ratio 0.7 L Assessment & Plan - Assessment and Plan (Free Text) Assessment: major depression severe recurrent dementia early pt at current mental status very depressed also unable to care for self. refused voluntary admission to psychiatry pt to be screened for involuntary admission for inability to care for self continue with paxil - Date & Time Date: 05/18/17 Time: 15:07
[2017-05-18] MEDS: Fluconazole IV 100mg/50 ml NS 50 ML IVPB SCH (16:44)
[2017-05-19] MEDS: Insulin Regular 100 units/ml SC SCH ×5 (00:44→22:21)
[2017-05-19] MEDS: Multivitamin Vitamin B Complex (Nephro-Vite) Tab PO SCH (08:42)
--- NOTE | 2017-05-19 14:17 | CP.PCM.PN ---
Addendum entered and electronically signed by Aquiles Kern MD 05/19/17 15: 52: Aware of UA results(Similar to previous UA). Patient has chronic asymptomatic bacteriuria. Treated with Rocephin and Diflucan on current admission because of instrumentation. Last UCx positive for yeast only on 05/14. Original Note: <Aquiles eKrn - Last Filed: 05/19/17 14:22> Subjective - Date & Time of Evaluation Date of Evaluation: 05/19/17 Time of Evaluation: 11:00 - Subjective Subjective: Medically clear to be discharge pending Involuntary Psychiatry admission evaluation. 76 y/o F seen at bedside in not acute distress. She "feels better". She is smiling and interactive during the encounter. Patient had 3 episodes of diarrhea NBNM overnight but none so far this morning. Afebrile. Tolerating PO, denies vomiting, nausea. dysuria, CP, palpitations, SOB. Screening for involuntary admission requested by Psychiatry. [facility] requesting recent UA and EKG before coming for evaluation and test are ordered Today. Objective - Vital Signs/Intake and Output Vital Signs (last 24 hours): Temp Pulse Resp BP Pulse Ox 97.2 F L 68 20 125/66 100 05/19/17 08:00 05/19/17 08:00 05/19/17 08:00 05/19/17 08:00 05/19/17 08:00 - Medications Medications: Current Medications Acetaminophen (Tylenol 325mg Tab) 650 mg PO Q6 PRN PRN Reason: Other Last Admin: 05/11/17 12:10 Dose: 650 mg Clotrimazole (Lotrimin 1% Cream) 1 applic TOP BID [facility] Last Admin: 05/19/17 08:42 Dose: 1 applic Heparin Sodium (Porcine) (Heparin) 5,000 units SC Q12 [facility] PRN Reason: Protocol Last Admin: 05/19/17 08:43 Dose: 5,000 units Iron Sucrose 100 mg/ Sodium (Chloride) 105 mls @ 105 mls/hr IVPB DAILY [facility] Last Admin: 05/19/17 12:15 Dose: 105 mls/hr Insulin Human Regular (Humulin R) 0 units SC ACCU-CHECK [facility] PRN Reason: Protocol Last Admin: 05/19/17 12:15 Dose: 3 units Memantine (Namenda) 5 mg PO DAILY [facility] Last Admin: 05/19/17 08:43 Dose: 5 mg Ondansetron HCl (Zofran Inj) 4 mg IVP Q6H PRN PRN Reason: Nausea/Vomiting Pantoprazole Sodium (Protonix Inj) 40 mg IVP DAILY [facility] Last Admin: 05/19/17 08:42 Dose: 40 mg Paroxetine HCl (Paxil) 10 mg PO DAILY [facility] Last Admin: 05/19/17 08:43 Dose: 10 mg Sevelamer HCl (Renagel) 800 mg PO TID [facility] Last Admin: 05/19/17 12:15 Dose: 800 mg Sodium Bicarbonate (Sodium Bicarbonate Tab) 650 mg PO Q8 [facility] Last Admin: 05/19/17 08:42 Dose: 650 mg Vitamin B Complex/Vit C/Folic Acid (Nephro-Evon) 1 tab PO DAILY [facility] Last Admin: 05/19/17 08:42 Dose: 1 tab - Labs Labs: 05/18/17 07:46 05/18/17 07:46 PT 11.7 Seconds (9.8-13.1) 05/08/17 23:16 INR 1.0 (0.9-1.2) 05/08/17 23:16 APTT 32.4 Seconds (25.6-37.1) 05/08/17 23:16 - Constitutional Appears: Non-toxic, No Acute Distress - Eye Exam Eye Exam: Normal appearance Pupil Exam: PERRL - Respiratory Exam Respiratory Exam: Clear to Ausculation Bilateral, NORMAL BREATHING PATTERN. absent: Rales, Rhonchi, Wheezes - GI/Abdominal Exam GI & Abdominal Exam: Soft, Normal Bowel Sounds. absent: Tenderness - Extremities Exam Extremities Exam: Normal Capillary Refill. absent: Calf Tenderness - Neurological Exam Neurological Exam: Alert, Awake, Oriented x3 - Psychiatric Exam Psychiatric exam: Depressed - Skin Skin Exam: Normal Color, Warm Assessment and Plan - Assessment and Plan (Free Text) Assessment: 76 y/o F with PMH including uncontrolled IDDM2, HTN, CKD4, Depression and history of medicine non-adherence/self neglect admitted for acidosis and acute on chronic kidney injury. Acute on Chronic Kidney Injury -Etiology likely due to DKA vs Prerenal azotemia -Stable -BUN/Cr 27/2.3 -Nephrology consultation appreciated Anemia, chronic -Stable. Hgb 9 -Most likely chronic disease anemia vs iron def -C/W Venofer IV -EPO WNL IDDM2 with complications -Stable -C/W Lispro Sliding Scale medium dose -accucheck q6 Hydronephrosis, chronic -Poss due to chronic obstructive uropathy -S/P B/L JJ stent placement -Urine output good since stent placement Yeast UTI -most likely prior to admission -Patient has hx of multiple UTI/Asymptomatic bacteriuria including previous Yeast UTI -Recently instrumented -Stopped Diflucan IV 100 mg daily as per ID Dr Brittney hunter(Spoke to him over the phone Today) Patient finished 7 days. -BCx negative HTN controlled -Valsartan 80mg PO Daily -Monitor BP Depression, chronic -Self neglect -Psych re-consulted. Recommended voluntary admission to Psych but patient refused. Involuntary admission screening placed. Waiting for eval and decision. -Paxil 10mg PO Daily -C/W Namenda 5mg daily -special services coordinator consulted Deconditioning/Unsteady gait -PT eval and treatment. Prophylaxis -Heparin 5000 units SQ Q12h <Min Woody - Last Filed: 05/22/17 06:44> Objective - Vital Signs/Intake and Output Vital Signs (last 24 hours): Temp Pulse Resp BP Pulse Ox 98.5 F 74 18 125/79 98 05/22/17 00:35 05/22/17 00:35 05/22/17 00:35 05/22/17 00:35 05/22/17 00:35 - Medications Medications: Current Medications Acetaminophen (Tylenol 325mg Tab) 650 mg PO Q6 PRN PRN Reason: Other Last Admin: 05/11/17 12:10 Dose: 650 mg Clotrimazole (Lotrimin 1% Cream) 1 applic TOP BID [facility] Last Admin: 05/21/17 17:43 Dose: 1 applic Ergocalciferol (Drisdol 50,000 Intl Units Cap) 1 cap PO Q7D [facility] Heparin Sodium (Porcine) (Heparin) 5,000 units SC Q12 [facility] PRN Reason: Protocol Last Admin: 05/21/17 21:18 Dose: 5,000 units Iron Sucrose 100 mg/ Sodium (Chloride) 105 mls @ 105 mls/hr IVPB DAILY [facility] Last Admin: 05/21/17 11:58 Dose: 105 mls/hr Insulin Human Regular (Humulin R) 0 units SC ACCU-CHECK [facility] PRN Reason: Protocol Last Admin: 05/21/17 22:40 Dose: Not Given Memantine (Namenda) 5 mg PO DAILY [facility] Last Admin: 05/21/17 09:17 Dose: 5 mg Ondansetron HCl (Zofran Inj) 4 mg IVP Q6H PRN PRN Reason: Nausea/Vomiting Paroxetine HCl (Paxil) 10 mg PO DAILY [facility] Last Admin: 05/21/17 09:16 Dose: 10 mg Sevelamer HCl (Renagel) 800 mg PO TID [facility] Last Admin: 05/21/17 17:44 Dose: 800 mg Sodium Bicarbonate (Sodium Bicarbonate Tab) 650 mg PO Q8 [facility] Last Admin: 05/22/17 01:03 Dose: 650 mg Vitamin B Complex/Vit C/Folic Acid (Nephro-Evon) 1 tab PO DAILY [facility] Last Admin: 05/21/17 09:16 Dose: 1 tab - Labs Labs: 05/20/17 05:30 05/20/17 06:30 PT 11.7 Seconds (9.8-13.1) 05/08/17 23:16 INR 1.0 (0.9-1.2) 05/08/17 23:16 APTT 32.4 Seconds (25.6-37.1) 05/08/17 23:16 Attending/Attestation - Attestation I have personally seen and examined this patient.: Yes I have fully participated in the care of the patient.: Yes I have reviewed all pertinent clinical information, including history, physical exam and plan: Yes
[2017-05-19 14:51] LABS: RBC URINE 143 /hpf (0-3); URINE BACTERIA MOD (<OCC); URINE BILIRUBIN NEGATIVE (NEGATIVE); URINE BLOOD MODERATE (NEGATIVE); URINE COLOR YELLOW (YELLOW); URINE GLUCOSE (UA) 50 mg/dL (Normal); URINE KETONE NEGATIVE (NEGATIVE); URINE LEUKOCYTE ESTERASE LARGE Leu/uL (Negative); URINE PROTEIN 100 mg/dL (NEGATIVE); URINE UROBILINOGEN 0.2-1.0 mg/dL (0.2-1.0); WBC CLUMPS OCC /hpf; WBC URINE 3371 /hpf (0-5)
--- NOTE | 2017-05-19 18:48 | CP.PCM.PN ---
Subjective - Date & Time of Evaluation Date of Evaluation: 05/19/17 Time of Evaluation: 15:00 - Subjective Subjective: SEEN ON RENAL F/U C/O TO IMPROVE CLINICALLY WELL RENALLY ALL PREVIOUS EMR REVIEWED Objective - Vital Signs/Intake and Output Vital Signs (last 24 hours): Temp Pulse Resp BP Pulse Ox 97.5 F L 72 19 132/85 98 05/19/17 16:16 05/19/17 16:16 05/19/17 16:16 05/19/17 16:16 05/19/17 16:16 - Medications Medications: Current Medications Acetaminophen (Tylenol 325mg Tab) 650 mg PO Q6 PRN PRN Reason: Other Last Admin: 05/11/17 12:10 Dose: 650 mg Clotrimazole (Lotrimin 1% Cream) 1 applic TOP BID [facility] Last Admin: 05/19/17 16:21 Dose: 1 applic Heparin Sodium (Porcine) (Heparin) 5,000 units SC Q12 [facility] PRN Reason: Protocol Last Admin: 05/19/17 08:43 Dose: 5,000 units Iron Sucrose 100 mg/ Sodium (Chloride) 105 mls @ 105 mls/hr IVPB DAILY [facility] Last Admin: 05/19/17 12:15 Dose: 105 mls/hr Insulin Human Regular (Humulin R) 0 units SC ACCU-CHECK [facility] PRN Reason: Protocol Last Admin: 05/19/17 16:21 Dose: 2 units Memantine (Namenda) 5 mg PO DAILY [facility] Last Admin: 05/19/17 08:43 Dose: 5 mg Ondansetron HCl (Zofran Inj) 4 mg IVP Q6H PRN PRN Reason: Nausea/Vomiting Pantoprazole Sodium (Protonix Inj) 40 mg IVP DAILY [facility] Last Admin: 05/19/17 08:42 Dose: 40 mg Paroxetine HCl (Paxil) 10 mg PO DAILY [facility] Last Admin: 05/19/17 08:43 Dose: 10 mg Sevelamer HCl (Renagel) 800 mg PO TID [facility] Last Admin: 05/19/17 16:21 Dose: 800 mg Sodium Bicarbonate (Sodium Bicarbonate Tab) 650 mg PO Q8 [facility] Last Admin: 05/19/17 16:21 Dose: 650 mg Vitamin B Complex/Vit C/Folic Acid (Nephro-Evon) 1 tab PO DAILY [facility] Last Admin: 05/19/17 08:42 Dose: 1 tab - Labs Labs: 05/18/17 07:46 05/18/17 07:46 PT 11.7 Seconds (9.8-13.1) 05/08/17 23:16 INR 1.0 (0.9-1.2) 05/08/17 23:16 APTT 32.4 Seconds (25.6-37.1) 05/08/17 23:16 Assessment and Plan - Assessment and Plan (Free Text) Assessment: A ON CKD .. RENAL FUNCTION MUCH IMPROVED ANEMIA OF CKD .. H/H STABLE SEPSIS .. BACTERIA IN BLOOD UTI .. FUNGUS IN URINE P : C/O CURRENT CARE C/O PRESENT MANAGEMENT
--- NOTE | 2017-05-19 22:44 | CARD ---
APPROVED REPORT EKG Measurement Heart [id number] <Conclusion> Normal sinus rhythm Low voltage QRS Possible Anterolateral infarct, age undetermined Abnormal ECG
[2017-05-20 07:17] LABS: HEMATOCRIT 27.6 % (34.0-47.0); MEAN CELL VOLUME 79.6 fl (81.0-99.0); MEAN CORPUSCULAR HEMOGLOBIN 25.8 pg (27.0-31.0); MEAN CORPUSCULAR HGB CONC 32.4 g/dL (33.0-37.0); RED CELL DISTRIBUTION WIDTH 15.6 % (11.5-14.5); WHITE BLOOD COUNT 10.5 K/uL (4.8-10.8)
[2017-05-20 07:35] LABS: CALCIUM 8.3 mg/dL (8.4-10.2); MAGNESIUM 1.5 MG/DL (1.6-2.3); POTASSIUM 4.3 MMOL/L (3.6-5.0)
[2017-05-20] MEDS: Insulin Regular 100 units/ml SC SCH ×4 (07:54→23:20)
[2017-05-20] MEDS: Multivitamin Vitamin B Complex (Nephro-Vite) Tab PO SCH (10:33)
--- NOTE | 2017-05-20 12:09 | CP.PCM.PN ---
Subjective - Date & Time of Evaluation Date of Evaluation: 05/20/17 Time of Evaluation: 10:30 - Subjective Subjective: 76 y/o F seen at bedside in not acute distress, she is in good spirits today. Diarrhea resolved. Tolerating PO diet. Denies urinary symptoms, cough, CP, palpitations, SOB. Afebrile. Objective - Vital Signs/Intake and Output Vital Signs (last 24 hours): Temp Pulse Resp BP Pulse Ox 98.5 F 72 19 137/75 99 05/20/17 07:46 05/20/17 07:46 05/20/17 07:46 05/20/17 07:46 05/20/17 07:46 - Medications Medications: Current Medications Acetaminophen (Tylenol 325mg Tab) 650 mg PO Q6 PRN PRN Reason: Other Last Admin: 05/11/17 12:10 Dose: 650 mg Clotrimazole (Lotrimin 1% Cream) 1 applic TOP BID [facility] Last Admin: 05/20/17 10:31 Dose: 1 applic Heparin Sodium (Porcine) (Heparin) 5,000 units SC Q12 [facility] PRN Reason: Protocol Last Admin: 05/20/17 10:31 Dose: 5,000 units Iron Sucrose 100 mg/ Sodium (Chloride) 105 mls @ 105 mls/hr IVPB DAILY [facility] Last Admin: 05/19/17 12:15 Dose: 105 mls/hr Insulin Human Regular (Humulin R) 0 units SC ACCU-CHECK [facility] PRN Reason: Protocol Last Admin: 05/20/17 07:54 Dose: 2 units Memantine (Namenda) 5 mg PO DAILY [facility] Last Admin: 05/20/17 10:32 Dose: 5 mg Ondansetron HCl (Zofran Inj) 4 mg IVP Q6H PRN PRN Reason: Nausea/Vomiting Pantoprazole Sodium (Protonix Inj) 40 mg IVP DAILY [facility] Last Admin: 05/20/17 10:33 Dose: 40 mg Paroxetine HCl (Paxil) 10 mg PO DAILY [facility] Last Admin: 05/20/17 10:33 Dose: 10 mg Sevelamer HCl (Renagel) 800 mg PO TID [facility] Last Admin: 05/20/17 10:33 Dose: 800 mg Sodium Bicarbonate (Sodium Bicarbonate Tab) 650 mg PO Q8 [facility] Last Admin: 05/20/17 10:34 Dose: 650 mg Vitamin B Complex/Vit C/Folic Acid (Nephro-Evon) 1 tab PO DAILY [facility] Last Admin: 05/20/17 10:33 Dose: 1 tab - Labs Labs: 05/20/17 05:30 05/20/17 06:30 PT 11.7 Seconds (9.8-13.1) 05/08/17 23:16 INR 1.0 (0.9-1.2) 05/08/17 23:16 APTT 32.4 Seconds (25.6-37.1) 05/08/17 23:16 - Constitutional Appears: Non-toxic, No Acute Distress - Eye Exam Eye Exam: EOMI, PERRL - ENT Exam ENT Exam: Mucous Membranes Moist - Respiratory Exam Respiratory Exam: Clear to Ausculation Bilateral, NORMAL BREATHING PATTERN. absent: Rales, Wheezes, Respiratory Distress - Cardiovascular Exam Cardiovascular Exam: REGULAR RHYTHM, +S1, +S2 - GI/Abdominal Exam GI & Abdominal Exam: Soft. absent: Distended, Guarding, Tenderness - Extremities Exam Extremities Exam: Normal Capillary Refill, Pedal Edema (+1). absent: Calf Tenderness - Neurological Exam Neurological Exam: Alert, Awake, Oriented x3 - Psychiatric Exam Psychiatric exam: Normal Mood - Skin Skin Exam: Normal Color, Warm Assessment and Plan - Assessment and Plan (Free Text) Assessment: 76 y/o F with PMH including uncontrolled DM type 2, HTN, CKD, Depression and history of medicine non-adherence/self neglect admitted for acidosis and acute on chronic kidney injury. Depression, chronic -Self neglect -Psych consult appreciated. Recommended voluntary admission to Psych but patient refused. Involuntary admission screening placed. Waiting for eval and decision. -Paxil 10mg PO Daily -C/W Namenda 5mg daily -implementation services analyst consulted Deconditioning/Unsteady gait -PT eval and treatment. -C/W current plan -Recs TCU after DC from medical floor Chronic Kidney Injury stage 4 -Exacerbation resolved -Stable -Nephrology consultation appreciated -C/W current plan Anemia, chronic -Stable. -Most likely chronic disease anemia vs iron def -C/W Venofer IV IDDM2 with complications -Stable -C/W Lispro Sliding Scale medium dose -accucheck q6 Hydronephrosis, chronic -Poss due to chronic obstructive uropathy -S/P B/L JJ stent placement -C/W current plan Yeast UTI -Asymptomatic -most likely prior to admission -Patient has hx of asymptomatic bacteriuria including previous Yeast UTI -Recently instrumented -S/P Diflucan IV x 7 days HTN controlled -Valsartan 80mg PO Daily -Monitor BP Prophylaxis -Heparin 5000 units SQ Q12h
[2017-05-21] MEDS: Insulin Regular 100 units/ml SC SCH ×5 (06:50→22:40)
[2017-05-21] MEDS: Multivitamin Vitamin B Complex (Nephro-Vite) Tab PO SCH (09:16)
--- NOTE | 2017-05-21 14:05 | CP.PCM.PN ---
Subjective - Date & Time of Evaluation Date of Evaluation: 05/21/17 Time of Evaluation: 09:45 - Subjective Subjective: Patient seen and examined at bedside with attending during morning rounds. She appears laying upright in bed, in no acute distress. Patient is pleasant and cooperative with assessment and denies any overnight events. She has been experiencing intermittent abdominal bloating but otherwise denies fevers, cough , chest pain, sob, abdominal pain, nausea or vomiting. Patient has not been out of bed yesterday and does not with to get out of bed at this time. Objective - Vital Signs/Intake and Output Vital Signs (last 24 hours): Temp Pulse Resp BP Pulse Ox 98.3 F 71 19 143/78 99 05/21/17 07:48 05/21/17 07:48 05/21/17 07:48 05/21/17 07:48 05/21/17 07:48 - Medications Medications: Current Medications Acetaminophen (Tylenol 325mg Tab) 650 mg PO Q6 PRN PRN Reason: Other Last Admin: 05/11/17 12:10 Dose: 650 mg Clotrimazole (Lotrimin 1% Cream) 1 applic TOP BID [facility] Last Admin: 05/21/17 09:16 Dose: 1 applic Ergocalciferol (Drisdol 50,000 Intl Units Cap) 1 cap PO Q7D [facility] Heparin Sodium (Porcine) (Heparin) 5,000 units SC Q12 [facility] PRN Reason: Protocol Last Admin: 05/21/17 09:17 Dose: 5,000 units Iron Sucrose 100 mg/ Sodium (Chloride) 105 mls @ 105 mls/hr IVPB DAILY [facility] Last Admin: 05/21/17 11:58 Dose: 105 mls/hr Insulin Human Regular (Humulin R) 0 units SC ACCU-CHECK [facility] PRN Reason: Protocol Last Admin: 05/21/17 11:56 Dose: 4 units Memantine (Namenda) 5 mg PO DAILY [facility] Last Admin: 05/21/17 09:17 Dose: 5 mg Ondansetron HCl (Zofran Inj) 4 mg IVP Q6H PRN PRN Reason: Nausea/Vomiting Pantoprazole Sodium (Protonix Inj) 40 mg IVP DAILY [facility] Last Admin: 05/21/17 09:17 Dose: 40 mg Paroxetine HCl (Paxil) 10 mg PO DAILY [facility] Last Admin: 05/21/17 09:16 Dose: 10 mg Sevelamer HCl (Renagel) 800 mg PO TID [facility] Last Admin: 05/21/17 11:59 Dose: 800 mg Sodium Bicarbonate (Sodium Bicarbonate Tab) 650 mg PO Q8 [facility] Last Admin: 05/21/17 09:17 Dose: 650 mg Vitamin B Complex/Vit C/Folic Acid (Nephro-Evon) 1 tab PO DAILY [facility] Last Admin: 05/21/17 09:16 Dose: 1 tab - Labs Labs: 05/20/17 05:30 05/20/17 06:30 PT 11.7 Seconds (9.8-13.1) 05/08/17 23:16 INR 1.0 (0.9-1.2) 05/08/17 23:16 APTT 32.4 Seconds (25.6-37.1) 05/08/17 23:16 - Constitutional Appears: Non-toxic, No Acute Distress - Head Exam Head Exam: ATRAUMATIC, NORMAL INSPECTION, NORMOCEPHALIC - Eye Exam Eye Exam: EOMI, PERRL - ENT Exam ENT Exam: Mucous Membranes Moist - Respiratory Exam Respiratory Exam: Clear to Ausculation Bilateral, NORMAL BREATHING PATTERN. absent: Rales, Rhonchi, Wheezes, Respiratory Distress - Cardiovascular Exam Cardiovascular Exam: REGULAR RHYTHM, RRR, +S1, +S2 - GI/Abdominal Exam GI & Abdominal Exam: Soft, Normal Bowel Sounds. absent: Tenderness, Rebound - Extremities Exam Extremities Exam: Normal Capillary Refill, Pedal Edema (Non-pitting lower ext edema). absent: Calf Tenderness - Neurological Exam Neurological Exam: Alert, Awake, Oriented x3 - Psychiatric Exam Psychiatric exam: Normal Affect, Normal Mood - Skin Skin Exam: Dry, Warm Assessment and Plan - Assessment and Plan (Free Text) Assessment: 76 y/o F with PMH including uncontrolled DM2, HTN, CKD Stage 4, Depression and history of self neglect admitted for bacteremia and acute on chronic kidney injury. Since admission, bacteremia has resolved and renal function appears to have returned to baseline. Plan: Deconditioning/Unsteady gait -PT eval and treatment notes reviewed -Recommendation for further rehabilitation at [facility] vs TCU -Possible DC to TCU tomorrow Depression, chronic -Depression with recurrent self neglect -Psych consult appreciated who recommended voluntary admission to Psych, however patient refused. -Involuntary [place] screening [place] [facility] Waiting for eval and decision. -Continue Paxil 10mg PO daily -Continue Namenda 5mg PO daily -procurement services manager consulted Chronic Kidney Injury stage 4 -Acute exacerbation resolved -Patient has returned to prior baseline -Nephrology consultation appreciated -C/W current plan Anemia, chronic -Most likely chronic disease anemia vs iron def -Stable H/H: 8.9/27.6 -Continue Venofer IV daily IDDM2 with complications -Last HgbA1c: 10.8% in 11/11/16 -Fasting blood glucose readings in the 150s range -C/W Lispro Sliding Scale medium dose -Accucheck ACHS HTN controlled -Valsartan 80mg PO Daily -Monitor BP Hydronephrosis, chronic -Poss due to chronic obstructive uropathy -S/P B/L JJ stent placement -Urology recommendations appreciated -C/W current plan Yeast UTI -Asymptomatic -Most likely prior to admission -Patient has hx of asymptomatic bacteriuria including previous Yeast UTI -Recently instrumented with b/l ureteral stent placement -Completed 7 day course of Diflucan IV Prophylaxis -Heparin 5000 units SQ Q12h
[2017-05-22] MEDS: Insulin Regular 100 units/ml SC SCH ×4 (08:32→23:00)
[2017-05-22] MEDS: Multivitamin Vitamin B Complex (Nephro-Vite) Tab PO SCH (08:33)
[2017-05-22] MEDS: Ergocalciferol 50,000 Intl Units Cap PO SCH (09:59)
--- NOTE | 2017-05-22 15:24 | CP.PCM.DIS ---
Provider - Provider Date of Admission: 05/09/17 02:32 Attending physician: Jose Juan Boswell MD Hospital Course - Lab Results Lab Results: Micro Results 05/15/17 13:40 Blood Blood Culture - Final NO GROWTH AFTER 5 DAYS 05/15/17 13:40 Blood Gram Stain - Final TEST NOT PERFORMED 05/14/17 08:35 Blood Blood Culture - Final NO GROWTH AFTER 5 DAYS 05/14/17 08:35 Blood Gram Stain - Final TEST NOT PERFORMED 05/13/17 12:00 Blood Blood Culture - Final NO GROWTH AFTER 5 DAYS 05/13/17 12:00 Blood Gram Stain - Final TEST NOT PERFORMED 05/13/17 12:00 Blood Blood Culture - Final NO GROWTH AFTER 5 DAYS 05/13/17 12:00 Blood Gram Stain - Final TEST NOT PERFORMED 05/13/17 05:00 Blood Blood Culture - Final NO GROWTH AFTER 5 DAYS 05/13/17 05:00 Blood Gram Stain - Final TEST NOT PERFORMED 05/16/17 18:58 Naris MRSA Culture (Admit) - Final MRSA NOT DETECTED 05/14/17 15:33 Urine,Adams Urine Culture - Final Yeast Species 05/13/17 12:00 Urine,Adams Urine Culture - Final Yeast Species 05/10/17 06:45 Urine,Catheterized Urine Culture - Final Yeast Species 05/10/17 08:32 Urine,Adams Urine Culture - Final No Growth (<1,000 CFU/ML) 05/08/17 22:40 Blood Blood Culture - Final Coagulase Neg Staphylococcus 05/08/17 22:40 Blood Gram Stain - Final 05/08/17 23:00 Blood S.aureus & Coag-Neg Staph PNA FISH - Final 05/08/17 23:00 Blood Blood Culture - Final Coagulase Neg Staphylococcus 05/08/17 23:00 Blood Gram Stain - Final 05/09/17 03:45 Naris MRSA Culture (Admit) - Final MRSA NOT DETECTED Most Recent Lab Values WBC 10.5 K/uL (4.8-10.8) 05/20/17 05:30 RBC 3.47 Mil/uL (3.80-5.20) L 05/20/17 05:30 Hgb 8.9 g/dL (12.0-16.0) L 05/20/17 05:30 Hct 27.6 % (34.0-47.0) L 05/20/17 05:30 MCV 79.6 fl (81.0-99.0) L 05/20/17 05:30 MCH 25.8 pg (27.0-31.0) L 05/20/17 05:30 MCHC 32.4 g/dL (33.0-37.0) L 05/20/17 05:30 RDW 15.6 % (11.5-14.5) H 05/20/17 05:30 Plt Count 316 K/uL (130-400) D 05/20/17 05:30 MPV 7.3 fl (7.2-11.7) 05/14/17 05:30 Neut % (Auto) 56.5 % (50.0-75.0) 05/14/17 05:30 Lymph % (Auto) 31.1 % (20.0-40.0) 05/14/17 05:30 [place] % (Auto) 8.0 % (0.0-10.0) 05/14/17 05:30 Eos % (Auto) 3.8 % (0.0-4.0) 05/14/17 05:30 Baso % (Auto) 0.6 % (0.0-2.0) 05/14/17 05:30 Neut # 5.3 K/uL (1.8-7.0) 05/14/17 05:30 Lymph # 2.9 K/uL (1.0-4.3) 05/14/17 05:30 [place] # 0.8 K/uL (0.0-0.8) 05/14/17 05:30 Eos # 0.4 K/uL (0.0-0.7) 05/14/17 05:30 Baso # 0.1 K/uL (0.0-0.2) 05/14/17 05:30 Neutrophils % (Manual) 86 % (42-75) H 05/08/17 23:16 Lymphocytes % (Manual) 8 % (20-50) L 05/08/17 23:16 Monocytes % (Manual) 6 % (0-10) 05/08/17 23:16 Platelet Estimate Slightly increased (NORMAL) H 05/08/17 23:16 Large Platelets Present 05/08/17 23:16 Anisocytosis (manual) Slight 05/08/17 23:16 Ovalocytes Slight 05/08/17 23:16 Stomatocytes Slight 05/08/17 23:16 Acanthocytes (Spur) Slight 05/08/17 23:16 PT 11.7 Seconds (9.8-13.1) 05/08/17 23:16 INR 1.0 (0.9-1.2) 05/08/17 23:16 APTT 32.4 Seconds (25.6-37.1) 05/08/17 23:16 pO2 35 mm/Hg (30-55) 05/08/17 21:44 VBG pH 7.11 (7.32-7.43) L* 05/08/17 21:44 VBG pCO2 24 mmHg (40-60) L 05/08/17 21:44 VBG HCO3 8.3 mmol/L 05/08/17 21:44 VBG Total CO2 8.3 mmol/L (22-28) L 05/08/17 21:44 VBG O2 Sat (Calc) 72.8 % (40-65) H 05/08/17 21:44 VBG Base Excess -20.3 mmol/L (0.0-2.0) L 05/08/17 21:44 VBG Potassium 7.0 mmol/L (3.6-5.2) H* 05/08/17 21:44 Sodium 120.0 mmol/L (132-148) L* 05/08/17 21:44 Chloride 91.0 mmol/L (98-107) L 05/08/17 21:44 Glucose 350 mg/dL (65-105) H 05/08/17 21:44 Lactate 1.8 mmol/L (0.7-2.1) 05/08/17 21:44 FiO2 21.0 % 05/08/17 21:44 Crit Value Called To Iwona cuellar 05/08/17 21:44 Crit Value Called By Ashok 05/08/17 21:44 Crit Value Read Back Y 05/08/17 21:44 Blood Gas Notified Time 45105/08/17 21:44 Sodium 138 mmol/l (132-148) 05/20/17 06:30 Potassium 4.3 MMOL/L (3.6-5.0) 05/20/17 06:30 Chloride 111 mmol/L (98-107) H 05/20/17 06:30 Carbon Dioxide 19 mmol/L (22-30) L 05/20/17 06:30 Anion Gap 12 (10-20) 05/20/17 06:30 BUN 29 mg/dl (7-17) H 05/20/17 06:30 Creatinine 2.3 mg/dL (0.7-1.2) H 05/20/17 06:30 Est GFR ( Amer) 25 05/20/17 06:30 Est GFR (Non-Af Amer) 21 05/20/17 06:30 POC Glucose (mg/dL) 284 mg/dL (65-110) H 05/22/17 11:30 Random Glucose 153 mg/dL (65-105) H 05/20/17 06:30 Serum Osmolality 317 mosm/kg (272-300) H 05/11/17 08:00 Calcium 8.3 mg/dL (8.4-10.2) L 05/20/17 06:30 Phosphorus 4.2 mg/dl (2.5-4.5) 05/11/17 08:00 Magnesium 1.5 MG/DL (1.6-2.3) L 05/20/17 06:30 Iron 12 ug/dL (37-170) L 05/16/17 04:20 TIBC 176 ug/dL (250-450) L 05/16/17 04:20 % Saturation 7 % (20-55) L 05/16/17 04:20 Erythropoietin 10.1 mIU/mL (2.6-18.5) 05/17/17 05:40 Ferritin 146.0 ng/Ml (11.1-264.0) 05/16/17 04:20 Total Bilirubin < 0.1 mg/dl (0.2-1.3) L 05/18/17 07:46 AST 11 U/L (14-36) L D 05/18/17 07:46 ALT 19 U/L (9-52) 05/18/17 07:46 Alkaline Phosphatase 105 U/L (38-126) 05/18/17 07:46 Total Creatine Kinase 23 U/L (30-135) L 05/11/17 08:00 Troponin I 0.1030 ng/mL (0.00-0.120) 05/08/17 23:16 Total Protein 5.2 G/DL (6.3-8.2) L 05/18/17 07:46 Albumin 2.1 g/dL (3.5-5.0) L 05/18/17 07:46 Globulin 3.0 gm/dL (2.2-3.9) 05/18/17 07:46 Albumin/Globulin Ratio 0.7 (1.0-2.1) L 05/18/17 07:46 25-OH Vitamin D Total < 12.8 NG/ML (30.0-100.0) L 05/20/17 05:30 TSH 3rd Generation 1.46 mIU/ML (0.46-4.68) 05/10/17 04:45 Venous Blood Potassium 7.0 mmol/L (3.6-5.2) H* 05/08/17 21:44 Urine Color Yellow (YELLOW) 05/19/17 14:30 Urine Clarity Turbid (Clear) 05/19/17 14:30 Urine pH 6.0 (5.0-8.0) 05/19/17 14:30 Ur Specific [place] 1.006 (1.003-1.030) 05/19/17 14:30 Urine Protein 100 mg/dL (NEGATIVE) 05/19/17 14:30 Urine Glucose (UA) 50 mg/dL (Normal) 05/19/17 14:30 Urine Ketones Negative mg/dL (NEGATIVE) 05/19/17 14:30 Urine Blood Moderate (NEGATIVE) 05/19/17 14:30 Urine Nitrate Negative (NEGATIVE) 05/19/17 14:30 Urine Bilirubin Negative (NEGATIVE) 05/19/17 14:30 Urine Urobilinogen 0.2-1.0 mg/dL (0.2-1.0) 05/19/17 14:30 Ur Leukocyte Esterase Large Emilio/uL (Negative) 05/19/17 14:30 Urine RBC (Auto) 143 /hpf (0-3) H 05/19/17 14:30 Urine WBC Clumps (Auto) Occ /hpf (NONE) H 05/19/17 14:30 Urine Microscopic WBC 3371 /hpf (0-5) H 05/19/17 14:30 Ur Squamous Epith Cells Cancelled 05/10/17 06:45 Ur Transition Epith Cell Cancelled 05/10/17 06:45 Ur Renal Epithelial Cell Cancelled 05/10/17 06:45 Calcium Carbonate Cryst Cancelled 05/10/17 06:45 Calcium Phos Yes[place] (Auto) Cancelled 05/10/17 06:45 Calcium Oxalate Crystal Cancelled 05/10/17 06:45 Leucine Crystals Cancelled 05/10/17 06:45 Cystine Crystals Cancelled 05/10/17 06:45 Uric Acid Crystals Cancelled 05/10/17 06:45 Triple Phos Crystals Cancelled 05/10/17 06:45 Tyrosine Crystals Cancelled 05/10/17 06:45 Other Crystals Cancelled 05/10/17 06:45 Amorphous Sediment Cancelled 05/10/17 06:45 Urine Bacteria Mod (<OCC) H 05/19/17 14:30 Epithelial Casts (Auto) Cancelled 05/10/17 06:45 Fatty Casts Cancelled 05/10/17 06:45 Hyaline Casts Cancelled 05/10/17 06:45 Granular Casts (Auto) Cancelled 05/10/17 06:45 Waxy Casts Cancelled 05/10/17 06:45 Broad Casts Cancelled 05/10/17 06:45 RBC Casts Cancelled 05/10/17 06:45 WBC Casts Cancelled 05/10/17 06:45 Other Casts Cancelled 05/10/17 06:45 Urine Trichomonas Cancelled 05/10/17 06:45 Ur Yeast w Hyphae Cancelled 05/10/17 06:45 Urine Yeast (Budding) Cancelled 05/10/17 06:45 Urine Sperm (Auto) Cancelled 05/10/17 06:45 Ur Oval Fat Bodies Auto Cancelled 05/10/17 06:45 Urine Osmolality 334 mosm/kg (300-1000) 05/10/17 18:20 Ur Random Sodium 64 meq/L 05/10/17 23:36 Ur Random Potassium 13.0 mmol/L 05/10/17 23:36 Stool Occult Blood Negative (NEGATIVE) 05/10/17 17:30 Random Vancomycin 9.2 ug/mL 05/12/17 04:30 Urine Opiates Screen Negative (NEGATIVE) 05/10/17 23:36 Urine Methadone Screen Negative (NEGATIVE) 05/10/17 23:36 Ur Barbiturates Screen Negative (NEGATIVE) 05/10/17 23:36 Ur Phencyclidine Scrn Negative (NEGATIVE) 05/10/17 23:36 Ur Amphetamines Screen Negative (NEGATIVE) 05/10/17 23:36 U Benzodiazepines Scrn Negative (NEGATIVE) 05/10/17 23:36 U Oth Cocaine Metabols Negative (NEGATIVE) 05/10/17 23:36 U Cannabinoids Screen Negative (NEGATIVE) 05/10/17 23:36 Blood Type A POSITIVE 05/09/17 08:00 Antibody Screen Negative 05/09/17 08:00 BBK History Checked Patient has bt 05/09/17 08:00 Discharge Exam - Head Exam Head Exam: ATRAUMATIC, NORMAL INSPECTION, NORMOCEPHALIC Discharge Plan - Discharge Medications Prescriptions: Memantine [Namenda] 5 mg PO DAILY #30 tab - Follow Up Plan Condition: FAIR Disposition: HOME/ ROUTINE Additional Instructions: F/U with Dr Boswell within 1 week F/U with Dr Valentine as outpatient for JJ stent F/U management F/U with Dr Houston for CKD Referrals: Irlanda Valentine MD [Medical Doctor] - Jose Juan Boswell MD [Family Provider] - Lili Houston MD [Staff Provider] -
--- NOTE | 2017-05-22 16:30 | CP.PCM.PN ---
<Aquiles Kern - Last Filed: 05/22/17 16:31> Subjective - Date & Time of Evaluation Date of Evaluation: 05/22/17 Time of Evaluation: 07:00 - Subjective Subjective: 76 y/o seen at bedside this morning in not acute distress. No acute event overnight. Patient denies CP, dysuria, SOB, palpitations, diarrhea, headache, fever. Patient was not accepted for involuntary psych admission at [facility]. She states that she wants to go home. Patient explained that she would benefits from voluntary psych admission to the psych floor for control of her depression. Patient states that she prefers to go home. Objective - Vital Signs/Intake and Output Vital Signs (last 24 hours): Temp Pulse Resp BP Pulse Ox 98.6 F 77 20 106/58 L 98 05/22/17 08:39 05/22/17 16:14 05/22/17 08:39 05/22/17 08:39 05/22/17 16:14 - Medications Medications: Current Medications Acetaminophen (Tylenol 325mg Tab) 650 mg PO Q6 PRN PRN Reason: Other Last Admin: 05/11/17 12:10 Dose: 650 mg Clotrimazole (Lotrimin 1% Cream) 1 applic TOP BID [facility] Last Admin: 05/22/17 08:32 Dose: 1 applic Ergocalciferol (Drisdol 50,000 Intl Units Cap) 1 cap PO Q7D [facility] Last Admin: 05/22/17 09:59 Dose: 1 cap Heparin Sodium (Porcine) (Heparin) 5,000 units SC Q12 [facility] PRN Reason: Protocol Last Admin: 05/22/17 08:33 Dose: 5,000 units Iron Sucrose 100 mg/ Sodium (Chloride) 105 mls @ 105 mls/hr IVPB DAILY [facility] Last Admin: 05/22/17 09:59 Dose: 105 mls/hr Insulin Human Regular (Humulin R) 0 units SC ACCU-CHECK [facility] PRN Reason: Protocol Last Admin: 05/22/17 12:37 Dose: 4 units Memantine (Namenda) 5 mg PO DAILY [facility] Last Admin: 05/22/17 08:32 Dose: 5 mg Ondansetron HCl (Zofran Inj) 4 mg IVP Q6H PRN PRN Reason: Nausea/Vomiting Paroxetine HCl (Paxil) 10 mg PO DAILY [facility] Last Admin: 05/22/17 08:33 Dose: 10 mg Sevelamer HCl (Renagel) 800 mg PO TID [facility] Last Admin: 05/22/17 12:37 Dose: 800 mg Sodium Bicarbonate (Sodium Bicarbonate Tab) 650 mg PO Q8 [facility] Last Admin: 05/22/17 08:33 Dose: 650 mg Vitamin B Complex/Vit C/Folic Acid (Nephro-Evon) 1 tab PO DAILY [facility] Last Admin: 05/22/17 08:33 Dose: 1 tab - Labs Labs: 05/20/17 05:30 05/20/17 06:30 PT 11.7 Seconds (9.8-13.1) 05/08/17 23:16 INR 1.0 (0.9-1.2) 05/08/17 23:16 APTT 32.4 Seconds (25.6-37.1) 05/08/17 23:16 - Constitutional Appears: Non-toxic, No Acute Distress - Head Exam Head Exam: NORMAL INSPECTION - Eye Exam Eye Exam: EOMI - ENT Exam ENT Exam: Mucous Membranes Moist - Respiratory Exam Respiratory Exam: Clear to Ausculation Bilateral, NORMAL BREATHING PATTERN. absent: Rales, Wheezes - Cardiovascular Exam Cardiovascular Exam: REGULAR RHYTHM, +S1, +S2. absent: Murmur - GI/Abdominal Exam GI & Abdominal Exam: Soft, Normal Bowel Sounds. absent: Distended, Tenderness - Extremities Exam Extremities Exam: Normal Capillary Refill, Pedal Edema (+1). absent: Calf Tenderness - Neurological Exam Neurological Exam: Alert, Awake, Oriented x3 - Psychiatric Exam Psychiatric exam: Depressed - Skin Skin Exam: Normal Color, Warm Assessment and Plan - Assessment and Plan (Free Text) Assessment: 76 y/o F with PMH including uncontrolled IDDM2, HTN, CKD4, Depression and history of medicine non-adherence/self neglect admitted for acidosis and acute on chronic kidney injury. Deconditioning/Unsteady gait -PT eval and treatment: Patient noncooperative with PT sessions. REcs for skilled PT services and patient refuses to go to [facility] Depression, chronic -Self neglect/depression -Refuses voluntary admission to [facility] and not accepted for involuntary admission at [facility] -C/W Paxil 10mg PO Daily -C/W Namenda 5mg daily -account services specialist consulted: Patient was medically cleared for DC home today but family unable to receive her home at this time Acute on Chronic Kidney Injury -Etiology likely due to DKA vs Prerenal azotemia -Stable -BUN/Cr 27/2.3 -Nephrology consultation appreciated Anemia, chronic -Stable. Hgb 9 -Most likely chronic disease anemia vs iron def -C/W Venofer IV -EPO WNL IDDM2 with complications -Stable -C/W Lispro Sliding Scale medium dose -accucheck q6 Hydronephrosis, chronic -Poss due to chronic obstructive uropathy -S/P B/L JJ stent placement -Urine output good since stent placement Yeast UTI -Chronic -Recently instrumented HTN controlled -Valsartan 80mg PO Daily -Monitor BP Prophylaxis -Heparin 5000 units SQ Q12h <Jose Juan Boswell - Last Filed: 05/22/17 16:46> Objective - Vital Signs/Intake and Output Vital Signs (last 24 hours): Temp Pulse Resp BP Pulse Ox 98.6 F 77 20 106/58 L 98 05/22/17 08:39 05/22/17 16:14 05/22/17 08:39 05/22/17 08:39 05/22/17 16:14 - Medications Medications: Current Medications Acetaminophen (Tylenol 325mg Tab) 650 mg PO Q6 PRN PRN Reason: Other Last Admin: 05/11/17 12:10 Dose: 650 mg Clotrimazole (Lotrimin 1% Cream) 1 applic TOP BID [facility] Last Admin: 05/22/17 08:32 Dose: 1 applic Ergocalciferol (Drisdol 50,000 Intl Units Cap) 1 cap PO Q7D [facility] Last Admin: 05/22/17 09:59 Dose: 1 cap Heparin Sodium (Porcine) (Heparin) 5,000 units SC Q12 [facility] PRN Reason: Protocol Last Admin: 05/22/17 08:33 Dose: 5,000 units Iron Sucrose 100 mg/ Sodium (Chloride) 105 mls @ 105 mls/hr IVPB DAILY [facility] Last Admin: 05/22/17 09:59 Dose: 105 mls/hr Insulin Human Regular (Humulin R) 0 units SC ACCU-CHECK [facility] PRN Reason: Protocol Last Admin: 05/22/17 12:37 Dose: 4 units Memantine (Namenda) 5 mg PO DAILY [facility] Last Admin: 05/22/17 08:32 Dose: 5 mg Ondansetron HCl (Zofran Inj) 4 mg IVP Q6H PRN PRN Reason: Nausea/Vomiting Paroxetine HCl (Paxil) 10 mg PO DAILY [facility] Last Admin: 05/22/17 08:33 Dose: 10 mg Sevelamer HCl (Renagel) 800 mg PO TID [facility] Last Admin: 05/22/17 12:37 Dose: 800 mg Sodium Bicarbonate (Sodium Bicarbonate Tab) 650 mg PO Q8 [facility] Last Admin: 05/22/17 08:33 Dose: 650 mg Vitamin B Complex/Vit C/Folic Acid (Nephro-Evon) 1 tab PO DAILY [facility] Last Admin: 05/22/17 08:33 Dose: 1 tab - Labs Labs: 05/20/17 05:30 05/20/17 06:30 PT 11.7 Seconds (9.8-13.1) 05/08/17 23:16 INR 1.0 (0.9-1.2) 05/08/17 23:16 APTT 32.4 Seconds (25.6-37.1) 05/08/17 23:16 Attending/Attestation - Attestation I have personally seen and examined this patient.: Yes I have fully participated in the care of the patient.: Yes I have reviewed all pertinent clinical information, including history, physical exam and plan: Yes
--- NOTE | 2017-05-22 19:35 | CP.PCM.PN ---
Subjective - Date & Time of Evaluation Date of Evaluation: 05/22/17 Time of Evaluation: 15:00 - Subjective Subjective: SEEN ON RENAL F/U FEELS MUCH IMPROVED C/O POLYURIA AND FREQEUNCY BUT NO DYSURIA APPEARS IN [employer] ALL PREVIOUS EMR REVIEWED Objective - Vital Signs/Intake and Output Vital Signs (last 24 hours): Temp Pulse Resp BP Pulse Ox 99.3 F 81 20 110/70 98 05/22/17 17:25 05/22/17 17:25 05/22/17 17:25 05/22/17 17:25 05/22/17 17:25 - Medications Medications: Current Medications Acetaminophen (Tylenol 325mg Tab) 650 mg PO Q6 PRN PRN Reason: Other Last Admin: 05/11/17 12:10 Dose: 650 mg Clotrimazole (Lotrimin 1% Cream) 1 applic TOP BID [facility] Last Admin: 05/22/17 17:22 Dose: 1 applic Ergocalciferol (Drisdol 50,000 Intl Units Cap) 1 cap PO Q7D [facility] Last Admin: 05/22/17 09:59 Dose: 1 cap Heparin Sodium (Porcine) (Heparin) 5,000 units SC Q12 [facility] PRN Reason: Protocol Last Admin: 05/22/17 08:33 Dose: 5,000 units Iron Sucrose 100 mg/ Sodium (Chloride) 105 mls @ 105 mls/hr IVPB DAILY [facility] Last Admin: 05/22/17 09:59 Dose: 105 mls/hr Insulin Human Regular (Humulin R) 0 units SC ACCU-CHECK [facility] PRN Reason: Protocol Last Admin: 05/22/17 17:22 Dose: 2 units Magnesium Oxide (Mag-Ox) 400 mg PO DAILY [facility] Memantine (Namenda) 5 mg PO DAILY [facility] Last Admin: 05/22/17 08:32 Dose: 5 mg Ondansetron HCl (Zofran Inj) 4 mg IVP Q6H PRN PRN Reason: Nausea/Vomiting Paroxetine HCl (Paxil) 10 mg PO DAILY [facility] Last Admin: 05/22/17 08:33 Dose: 10 mg Sevelamer HCl (Renagel) 800 mg PO TID [facility] Last Admin: 05/22/17 17:22 Dose: 800 mg Sodium Bicarbonate (Sodium Bicarbonate Tab) 650 mg PO Q8 [facility] Last Admin: 05/22/17 17:23 Dose: 650 mg Vitamin B Complex/Vit C/Folic Acid (Nephro-Evon) 1 tab PO DAILY [facility] Last Admin: 05/22/17 08:33 Dose: 1 tab - Labs Labs: 05/20/17 05:30 05/20/17 06:30 PT 11.7 Seconds (9.8-13.1) 05/08/17 23:16 INR 1.0 (0.9-1.2) 05/08/17 23:16 APTT 32.4 Seconds (25.6-37.1) 05/08/17 23:16 Assessment and Plan - Assessment and Plan (Free Text) Assessment: A ON CKD .. RENAL FUNCTION MUCH IMPROVED .. BACK TO BASELINE S/P SEPEIS .. MUCH BETTER ANEMIA OF CKD .. R/O OTHER CAUSES .. ON IV IRON .. WILL NEED EPO UTI .. FUNGUS MULTIPLE CO MORBIDITIES P : C/O CURRENT CARE C/O PRESENT MEDS CAN BE TRANSFERED TO [facility]
[2017-05-23] MEDS: Insulin Regular 100 units/ml SC SCH ×4 (06:44→22:49)
[2017-05-23] MEDS: Magnesium Oxide 400 mg Tab UD PO SCH (09:17)
[2017-05-23] MEDS: Multivitamin Vitamin B Complex (Nephro-Vite) Tab PO SCH (09:18)
--- NOTE | 2017-05-23 13:13 | CP.PCM.PN ---
<Aquiles Kern - Last Filed: 05/23/17 13:24> Subjective - Date & Time of Evaluation Date of Evaluation: 05/23/17 Time of Evaluation: 07:00 - Subjective Subjective: 76 y/o F seen at bedside in not acute distress. She is medically stable with no events overnight. Denies CP, SOB, dysuria, headaches, diarrhea, cough. Afebrile. Patient pending APS evaluation since family unable to receive her home at this time(please read SW notes) and patient refuses to go to [facility] as recommended by PT. Objective - Vital Signs/Intake and Output Vital Signs (last 24 hours): Temp Pulse Resp BP Pulse Ox 99.2 F 73 20 124/78 99 05/23/17 08:42 05/23/17 08:42 05/23/17 08:42 05/23/17 08:42 05/23/17 08:42 - Medications Medications: Current Medications Acetaminophen (Tylenol 325mg Tab) 650 mg PO Q6 PRN PRN Reason: Other Last Admin: 05/11/17 12:10 Dose: 650 mg Clotrimazole (Lotrimin 1% Cream) 1 applic TOP BID [facility] Last Admin: 05/23/17 09:16 Dose: 1 appl Ergocalciferol (Drisdol 50,000 Intl Units Cap) 1 cap PO Q7D [facility] Last Admin: 05/22/17 09:59 Dose: 1 cap Heparin Sodium (Porcine) (Heparin) 5,000 units SC Q12 [facility] PRN Reason: Protocol Last Admin: 05/23/17 09:22 Dose: 5,000 units Iron Sucrose 100 mg/ Sodium (Chloride) 105 mls @ 105 mls/hr IVPB DAILY [facility] Last Admin: 05/23/17 10:23 Dose: 105 mls/hr Insulin Human Regular (Humulin R) 0 units SC ACCU-CHECK [facility] PRN Reason: Protocol Last Admin: 05/23/17 12:46 Dose: 4 units Magnesium Oxide (Mag-Ox) 400 mg PO DAILY [facility] Last Admin: 05/23/17 09:17 Dose: 400 mg Memantine (Namenda) 5 mg PO DAILY [facility] Last Admin: 05/23/17 09:21 Dose: 5 mg Ondansetron HCl (Zofran Inj) 4 mg IVP Q6H PRN PRN Reason: Nausea/Vomiting Paroxetine HCl (Paxil) 10 mg PO DAILY [facility] Last Admin: 05/23/17 09:36 Dose: 10 mg Sevelamer HCl (Renagel) 800 mg PO TID [facility] Last Admin: 05/23/17 12:46 Dose: 800 mg Sodium Bicarbonate (Sodium Bicarbonate Tab) 650 mg PO Q8 [facility] Last Admin: 05/23/17 09:19 Dose: 650 mg Vitamin B Complex/Vit C/Folic Acid (Nephro-Evon) 1 tab PO DAILY [facility] Last Admin: 05/23/17 09:18 Dose: 1 tab - Labs Labs: 05/20/17 05:30 05/20/17 06:30 PT 11.7 Seconds (9.8-13.1) 05/08/17 23:16 INR 1.0 (0.9-1.2) 05/08/17 23:16 APTT 32.4 Seconds (25.6-37.1) 05/08/17 23:16 - Constitutional Appears: Non-toxic, No Acute Distress - Eye Exam Eye Exam: EOMI - ENT Exam ENT Exam: Mucous Membranes Moist - Respiratory Exam Respiratory Exam: Clear to Ausculation Bilateral, NORMAL BREATHING PATTERN. absent: Rales, Wheezes - Cardiovascular Exam Cardiovascular Exam: REGULAR RHYTHM, +S1, +S2. absent: Murmur - GI/Abdominal Exam GI & Abdominal Exam: Soft. absent: Guarding, Tenderness, Rebound - Extremities Exam Extremities Exam: Normal Capillary Refill. absent: Calf Tenderness - Neurological Exam Neurological Exam: Alert, Awake, Oriented x3 - Psychiatric Exam Psychiatric exam: Depressed - Skin Skin Exam: Normal Color, Warm Assessment and Plan - Assessment and Plan (Free Text) Assessment: 76 y/o F with PMH including uncontrolled IDDM2, HTN, CKD4, Depression and history of medicine non-adherence/self neglect admitted for acidosis and acute on chronic kidney injury that is resolved. Deconditioning/Unsteady gait -PT eval and treatment: Recs for skilled PT services but patient refuses to go to [facility] Depression, chronic -Self neglect/depression -Refuses voluntary admission to psych and not accepted for involuntary admission at [facility] -C/W Paxil 10mg PO Daily -C/W Namenda 5mg daily -director of outpatient services consulted: Patient medically cleared for DC home, but family unable to receive her home at this time CKD -Stable -Nephrology consultation appreciated -C/W current plan Anemia, chronic -Stable. -Most likely chronic disease anemia vs iron def -C/W Venofer IV -EPO WNL IDDM2 with complications -Stable -C/W Lispro Sliding Scale medium dose -accucheck q6 Hydronephrosis, chronic -Poss due to chronic obstructive uropathy -S/P B/L JJ stent placement -Urine output good since stent placement Yeast UTI -Chronic -Recently instrumented HTN controlled -Valsartan 80mg PO Daily -Monitor BP Prophylaxis -Heparin 5000 units SQ Q12h <Min Woody - Last Filed: 05/25/17 06:52> Objective - Vital Signs/Intake and Output Vital Signs (last 24 hours): Temp Pulse Resp BP Pulse Ox 99.1 F 74 18 112/65 98 05/25/17 01:12 05/25/17 01:12 05/25/17 01:12 05/25/17 01:12 05/25/17 01:12 - Medications Medications: Current Medications Acetaminophen (Tylenol 325mg Tab) 650 mg PO Q6 PRN PRN Reason: Other Last Admin: 05/11/17 12:10 Dose: 650 mg Clotrimazole (Lotrimin 1% Cream) 1 applic TOP BID [facility] Last Admin: 05/24/17 17:05 Dose: 1 appl Ergocalciferol (Drisdol 50,000 Intl Units Cap) 1 cap PO Q7D [facility] Last Admin: 05/22/17 09:59 Dose: 1 cap Heparin Sodium (Porcine) (Heparin) 5,000 units SC Q12 [facility] PRN Reason: Protocol Last Admin: 05/24/17 21:54 Dose: 5,000 units Iron Sucrose 100 mg/ Sodium (Chloride) 105 mls @ 105 mls/hr IVPB DAILY [facility] Last Admin: 05/24/17 12:36 Dose: 105 mls/hr Insulin Human Regular (Humulin R) 0 units SC ACCU-CHECK [facility] PRN Reason: Protocol Last Admin: 05/25/17 06:28 Dose: 2 units Magnesium Oxide (Mag-Ox) 400 mg PO DAILY [facility] Last Admin: 05/24/17 08:50 Dose: 400 mg Memantine (Namenda) 5 mg PO DAILY [facility] Last Admin: 05/24/17 08:51 Dose: 5 mg Paroxetine HCl (Paxil) 10 mg PO DAILY [facility] Last Admin: 05/24/17 08:52 Dose: 10 mg Sodium Bicarbonate (Sodium Bicarbonate Tab) 650 mg PO Q8 [facility] Last Admin: 05/25/17 00:32 Dose: 650 mg Vitamin B Complex/Vit C/Folic Acid (Nephro-Evon) 1 tab PO DAILY [facility] Last Admin: 05/24/17 08:51 Dose: 1 tab - Labs Labs: 05/20/17 05:30 05/24/17 10:20 PT 11.7 Seconds (9.8-13.1) 05/08/17 23:16 INR 1.0 (0.9-1.2) 05/08/17 23:16 APTT 32.4 Seconds (25.6-37.1) 05/08/17 23:16 Attending/Attestation - Attestation I have personally seen and examined this patient.: Yes I have fully participated in the care of the patient.: Yes I have reviewed all pertinent clinical information, including history, physical exam and plan: Yes
--- NOTE | 2017-05-23 19:21 | CP.PCM.PN ---
Subjective - Date & Time of Evaluation Date of Evaluation: 05/23/17 Time of Evaluation: 15:00 - Subjective Subjective: SEEN ON RENAL F/U FEELS IMPROVED RENAL FUNCTION IMPROVING Objective - Vital Signs/Intake and Output Vital Signs (last 24 hours): Temp Pulse Resp BP Pulse Ox 99 F 78 20 110/67 98 05/23/17 15:59 05/23/17 15:59 05/23/17 15:59 05/23/17 15:59 05/23/17 15:59 - Medications Medications: Current Medications Acetaminophen (Tylenol 325mg Tab) 650 mg PO Q6 PRN PRN Reason: Other Last Admin: 05/11/17 12:10 Dose: 650 mg Clotrimazole (Lotrimin 1% Cream) 1 applic TOP BID [facility] Last Admin: 05/23/17 17:09 Dose: Not Given Ergocalciferol (Drisdol 50,000 Intl Units Cap) 1 cap PO Q7D [facility] Last Admin: 05/22/17 09:59 Dose: 1 cap Heparin Sodium (Porcine) (Heparin) 5,000 units SC Q12 [facility] PRN Reason: Protocol Last Admin: 05/23/17 09:22 Dose: 5,000 units Iron Sucrose 100 mg/ Sodium (Chloride) 105 mls @ 105 mls/hr IVPB DAILY [facility] Last Admin: 05/23/17 10:23 Dose: 105 mls/hr Insulin Human Regular (Humulin R) 0 units SC ACCU-CHECK [facility] PRN Reason: Protocol Last Admin: 05/23/17 17:13 Dose: 3 units Magnesium Oxide (Mag-Ox) 400 mg PO DAILY [facility] Last Admin: 05/23/17 09:17 Dose: 400 mg Memantine (Namenda) 5 mg PO DAILY [facility] Last Admin: 05/23/17 09:21 Dose: 5 mg Ondansetron HCl (Zofran Inj) 4 mg IVP Q6H PRN PRN Reason: Nausea/Vomiting Paroxetine HCl (Paxil) 10 mg PO DAILY [facility] Last Admin: 05/23/17 09:36 Dose: 10 mg Sevelamer HCl (Renagel) 800 mg PO TID [facility] Last Admin: 05/23/17 17:14 Dose: 800 mg Sodium Bicarbonate (Sodium Bicarbonate Tab) 650 mg PO Q8 [facility] Last Admin: 05/23/17 17:15 Dose: 650 mg Vitamin B Complex/Vit C/Folic Acid (Nephro-Evon) 1 tab PO DAILY [facility] Last Admin: 05/23/17 09:18 Dose: 1 tab - Labs Labs: 05/20/17 05:30 05/20/17 06:30 PT 11.7 Seconds (9.8-13.1) 05/08/17 23:16 INR 1.0 (0.9-1.2) 05/08/17 23:16 APTT 32.4 Seconds (25.6-37.1) 05/08/17 23:16 Assessment and Plan - Assessment and Plan (Free Text) Assessment: A ON CKD .. RENAL FUNCTION BETTER UTI WITH FUNGUS ADELAIDA HYDRO .. S/P ADELAIDA STENTS INSERTION P : C/O CURRENT CARE
[2017-05-24] MEDS: Insulin Regular 100 units/ml SC SCH ×4 (06:37→22:19)
[2017-05-24] MEDS: Magnesium Oxide 400 mg Tab UD PO SCH (08:50)
[2017-05-24] MEDS: Multivitamin Vitamin B Complex (Nephro-Vite) Tab PO SCH (08:51)
--- NOTE | 2017-05-24 09:09 | CP.PCM.PN ---
<Aquiles Kern - Last Filed: 05/24/17 09:09> Subjective - Date & Time of Evaluation Date of Evaluation: 05/24/17 Time of Evaluation: 07:00 - Subjective Subjective: 76 y/o F seen at bedside. No significant events overnight. Denies CP, palpitations, SOB, changes in urination or stools. Patient medically stable anc cleared to be DC home but family unable to receive her home now. She would benefit from [facility] but patient refuses. Patient will be evaluated by APS today as per SW and will f/u recommendations. Objective - Vital Signs/Intake and Output Vital Signs (last 24 hours): Temp Pulse Resp BP Pulse Ox 98.5 F 69 19 116/47 L 98 05/24/17 07:51 05/24/17 07:51 05/24/17 07:51 05/24/17 07:51 05/24/17 07:51 - Medications Medications: Current Medications Acetaminophen (Tylenol 325mg Tab) 650 mg PO Q6 PRN PRN Reason: Other Last Admin: 05/11/17 12:10 Dose: 650 mg Clotrimazole (Lotrimin 1% Cream) 1 applic TOP BID [facility] Last Admin: 05/24/17 09:03 Dose: 1 appl Ergocalciferol (Drisdol 50,000 Intl Units Cap) 1 cap PO Q7D [facility] Last Admin: 05/22/17 09:59 Dose: 1 cap Heparin Sodium (Porcine) (Heparin) 5,000 units SC Q12 [facility] PRN Reason: Protocol Last Admin: 05/24/17 08:48 Dose: 5,000 units Iron Sucrose 100 mg/ Sodium (Chloride) 105 mls @ 105 mls/hr IVPB DAILY [facility] Last Admin: 05/23/17 10:23 Dose: 105 mls/hr Insulin Human Regular (Humulin R) 0 units SC ACCU-CHECK [facility] PRN Reason: Protocol Last Admin: 05/24/17 06:37 Dose: 3 units Magnesium Oxide (Mag-Ox) 400 mg PO DAILY [facility] Last Admin: 05/24/17 08:50 Dose: 400 mg Memantine (Namenda) 5 mg PO DAILY [facility] Last Admin: 05/24/17 08:51 Dose: 5 mg Paroxetine HCl (Paxil) 10 mg PO DAILY [facility] Last Admin: 05/24/17 08:52 Dose: 10 mg Sodium Bicarbonate (Sodium Bicarbonate Tab) 650 mg PO Q8 [facility] Last Admin: 05/24/17 08:52 Dose: 650 mg Vitamin B Complex/Vit C/Folic Acid (Nephro-Evon) 1 tab PO DAILY [facility] Last Admin: 05/24/17 08:51 Dose: 1 tab - Labs Labs: 05/20/17 05:30 05/20/17 06:30 PT 11.7 Seconds (9.8-13.1) 05/08/17 23:16 INR 1.0 (0.9-1.2) 05/08/17 23:16 APTT 32.4 Seconds (25.6-37.1) 05/08/17 23:16 - Constitutional Appears: Non-toxic, No Acute Distress - Eye Exam Eye Exam: EOMI, PERRL - ENT Exam ENT Exam: Mucous Membranes Moist - Respiratory Exam Respiratory Exam: Clear to Ausculation Bilateral, NORMAL BREATHING PATTERN. absent: Rales, Wheezes - Cardiovascular Exam Cardiovascular Exam: REGULAR RHYTHM, +S1, +S2. absent: Gallop - GI/Abdominal Exam GI & Abdominal Exam: Soft, Normal Bowel Sounds. absent: Distended, Guarding, Tenderness, Rebound - Extremities Exam Extremities Exam: Normal Capillary Refill, Pedal Edema (Trace). absent: Calf Tenderness - Neurological Exam Neurological Exam: Alert, Awake, Oriented x3 - Psychiatric Exam Psychiatric exam: Normal Affect, Normal Mood - Skin Skin Exam: Normal Color, Warm Assessment and Plan - Assessment and Plan (Free Text) Assessment: 76 y/o F with PMH including uncontrolled IDDM2, HTN, CKD4, Depression and history of medicine non-adherence/self neglect admitted for acidosis and acute on chronic kidney injury that is resolved. Deconditioning/Unsteady gait -PT eval and treatment: Recs for skilled PT services but patient refuses to go to [facility] Depression, chronic -Self neglect/depression -Refuses voluntary admission to [facility] and not accepted for involuntary [place] [facility] [place]C/W Paxil 10mg PO Daily -C/W Namenda 5mg daily -clinical services assistant consulted: Patient medically cleared for DC home, but family unable to receive her home at this time. -To be evaluated by APS CKD -Stable -Nephrology consultation appreciated -C/W current plan Anemia, chronic -Stable. -Most likely chronic disease anemia vs iron def -C/W Venofer IV -EPO WNL IDDM2 with complications -Stable -C/W Lispro Sliding Scale medium dose -accucheck q6 Hydronephrosis, chronic -Poss due to chronic obstructive uropathy -S/P B/L JJ stent placement -Urine output good since stent placement Yeast UTI -Chronic -Recently instrumented HTN controlled -Valsartan 80mg PO Daily -Monitor BP Prophylaxis -Heparin 5000 units SQ Q12h <Jose Juan Boswell - Last Filed: 05/26/17 07:23> Objective - Vital Signs/Intake and Output Vital Signs (last 24 hours): Temp Pulse Resp BP Pulse Ox 98.8 F 69 18 145/84 96 05/26/17 00:53 05/26/17 00:53 05/26/17 00:53 05/26/17 00:53 05/26/17 00:53 - Medications Medications: Current Medications Acetaminophen (Tylenol 325mg Tab) 650 mg PO Q6 PRN PRN Reason: Other Last Admin: 05/11/17 12:10 Dose: 650 mg Clotrimazole (Lotrimin 1% Cream) 1 applic TOP BID [facility] Last Admin: 05/25/17 17:15 Dose: 1 appl Ergocalciferol (Drisdol 50,000 Intl Units Cap) 1 cap PO Q7D [facility] Last Admin: 05/22/17 09:59 Dose: 1 cap Glipizide (Glucotrol) 2.5 mg PO ACB [facility] Heparin Sodium (Porcine) (Heparin) 5,000 units SC Q12 [facility] PRN Reason: Protocol Last Admin: 05/25/17 21:13 Dose: 5,000 units Iron Sucrose 100 mg/ Sodium (Chloride) 105 mls @ 105 mls/hr IVPB DAILY [facility] Last Admin: 05/25/17 13:05 Dose: 105 mls/hr Insulin Human Regular (Humulin R) 0 units SC ACCU-CHECK [facility] PRN Reason: Protocol Last Admin: 05/26/17 06:27 Dose: 3 units Magnesium Oxide (Mag-Ox) 400 mg PO DAILY [facility] Last Admin: 05/25/17 10:11 Dose: 400 mg Memantine (Namenda) 5 mg PO DAILY [facility] Last Admin: 05/25/17 10:11 Dose: 5 mg Paroxetine HCl (Paxil) 10 mg PO DAILY [facility] Last Admin: 05/25/17 10:12 Dose: 10 mg Repaglinide (Prandin) 0.5 mg PO TIDAC [facility] Last Admin: 05/25/17 17:15 Dose: 0.5 mg Sodium Bicarbonate (Sodium Bicarbonate Tab) 650 mg PO Q8 [facility] Last Admin: 05/26/17 00:22 Dose: 650 mg Vitamin B Complex/Vit C/Folic Acid (Nephro-Evon) 1 tab PO DAILY [facility] Last Admin: 05/25/17 10:10 Dose: 1 tab - Labs Labs: 05/20/17 05:30 05/26/17 06:10 PT 11.7 Seconds (9.8-13.1) 05/08/17 23:16 INR 1.0 (0.9-1.2) 05/08/17 23:16 APTT 32.4 Seconds (25.6-37.1) 05/08/17 23:16 Attending/Attestation - Attestation I have personally seen and examined this patient.: Yes I have fully participated in the care of the patient.: Yes I have reviewed all pertinent clinical information, including history, physical exam and plan: Yes
[2017-05-24 11:41] LABS: CALCIUM 8.4 mg/dL (8.4-10.2); POTASSIUM 4.6 MMOL/L (3.6-5.0)
[2017-05-25] MEDS: Insulin Regular 100 units/ml SC SCH ×4 (06:28→22:52)
--- NOTE | 2017-05-25 09:37 | CP.PCM.PN ---
<Aquiles Kern - Last Filed: 05/25/17 09:38> Subjective - Date & Time of Evaluation Date of Evaluation: 05/25/17 Time of Evaluation: 07:25 - Subjective Subjective: 76 y/o F seen at bedside in not acute distress. Denies CP, palpitations, SOB, dysuria. Afebrile. Patient medically stable. As per patient, she met with APS yesterday and was told that she will stay in the hospital until she is able to go back home. Objective - Vital Signs/Intake and Output Vital Signs (last 24 hours): Temp Pulse Resp BP Pulse Ox 98.1 F 75 20 120/74 98 05/25/17 08:06 05/25/17 08:06 05/25/17 08:06 05/25/17 08:06 05/25/17 08:06 - Medications Medications: Current Medications Acetaminophen (Tylenol 325mg Tab) 650 mg PO Q6 PRN PRN Reason: Other Last Admin: 05/11/17 12:10 Dose: 650 mg Clotrimazole (Lotrimin 1% Cream) 1 applic TOP BID [facility] Last Admin: 05/24/17 17:05 Dose: 1 appl Ergocalciferol (Drisdol 50,000 Intl Units Cap) 1 cap PO Q7D [facility] Last Admin: 05/22/17 09:59 Dose: 1 cap Heparin Sodium (Porcine) (Heparin) 5,000 units SC Q12 [facility] PRN Reason: Protocol Last Admin: 05/24/17 21:54 Dose: 5,000 units Iron Sucrose 100 mg/ Sodium (Chloride) 105 mls @ 105 mls/hr IVPB DAILY [facility] Last Admin: 05/24/17 12:36 Dose: 105 mls/hr Insulin Human Regular (Humulin R) 0 units SC ACCU-CHECK [facility] PRN Reason: Protocol Last Admin: 05/25/17 06:28 Dose: 2 units Magnesium Oxide (Mag-Ox) 400 mg PO DAILY [facility] Last Admin: 05/24/17 08:50 Dose: 400 mg Memantine (Namenda) 5 mg PO DAILY [facility] Last Admin: 05/24/17 08:51 Dose: 5 mg Paroxetine HCl (Paxil) 10 mg PO DAILY [facility] Last Admin: 05/24/17 08:52 Dose: 10 mg Sodium Bicarbonate (Sodium Bicarbonate Tab) 650 mg PO Q8 [facility] Last Admin: 05/25/17 00:32 Dose: 650 mg Vitamin B Complex/Vit C/Folic Acid (Nephro-Evon) 1 tab PO DAILY [facility] Last Admin: 05/24/17 08:51 Dose: 1 tab - Labs Labs: 05/20/17 05:30 05/24/17 10:20 PT 11.7 Seconds (9.8-13.1) 05/08/17 23:16 INR 1.0 (0.9-1.2) 05/08/17 23:16 APTT 32.4 Seconds (25.6-37.1) 05/08/17 23:16 - Constitutional Appears: Non-toxic, No Acute Distress - Eye Exam Eye Exam: EOMI, PERRL - ENT Exam ENT Exam: Mucous Membranes Moist - Respiratory Exam Respiratory Exam: Clear to Ausculation Bilateral, NORMAL BREATHING PATTERN. absent: Rales, Wheezes - Cardiovascular Exam Cardiovascular Exam: REGULAR RHYTHM, +S1, +S2. absent: Gallop - GI/Abdominal Exam GI & Abdominal Exam: Soft, Normal Bowel Sounds. absent: Tenderness - Neurological Exam Neurological Exam: Alert, Awake, Oriented x3 - Psychiatric Exam Psychiatric exam: Depressed - Skin Skin Exam: Normal Color, Warm Assessment and Plan - Assessment and Plan (Free Text) Assessment: 76 y/o F with PMH including uncontrolled IDDM2, HTN, CKD4, Depression and history of medicine non-adherence/self neglect admitted for acidosis and acute on chronic kidney injury that is resolved. Medically cleared. Deconditioning/Unsteady gait -PT eval and treatment: Recs for skilled PT services but patient refuses to go to [facility] Depression, chronic -Self neglect/depression -Refuses voluntary admission to [facility] and not accepted for [place] [facility] [place]C/W Paxil 10mg PO Daily -C/W Namenda 5mg daily -director of convention services consulted: Patient medically cleared for DC home, but family unable to receive her home at this time. CKD -Stable -Nephrology consultation appreciated -C/W current plan Anemia, chronic -Stable. -Most likely chronic disease anemia vs iron def -C/W Venofer IV -EPO WNL IDDM2 with complications -Stable -C/W Lispro Sliding Scale medium dose -accucheck q6 Hydronephrosis, chronic -Poss due to chronic obstructive uropathy -S/P B/L JJ stent placement -Urine output good since stent placement Yeast UTI -Chronic -Recently instrumented -S/P Diflucan IV HTN controlled -Valsartan 80mg PO Daily -Monitor BP Prophylaxis -Heparin 5000 units SQ Q12h <Min Woody - Last Filed: 05/26/17 06:46> Objective - Vital Signs/Intake and Output Vital Signs (last 24 hours): Temp Pulse Resp BP Pulse Ox 98.8 F 69 18 145/84 96 05/26/17 00:53 05/26/17 00:53 05/26/17 00:53 05/26/17 00:53 05/26/17 00:53 - Medications Medications: Current Medications Acetaminophen (Tylenol 325mg Tab) 650 mg PO Q6 PRN PRN Reason: Other Last Admin: 05/11/17 12:10 Dose: 650 mg Clotrimazole (Lotrimin 1% Cream) 1 applic TOP BID [facility] Last Admin: 05/25/17 17:15 Dose: 1 appl Ergocalciferol (Drisdol 50,000 Intl Units Cap) 1 cap PO Q7D [facility] Last Admin: 05/22/17 09:59 Dose: 1 cap Glipizide (Glucotrol) 2.5 mg PO ACB [facility] Heparin Sodium (Porcine) (Heparin) 5,000 units SC Q12 [facility] PRN Reason: Protocol Last Admin: 05/25/17 21:13 Dose: 5,000 units Iron Sucrose 100 mg/ Sodium (Chloride) 105 mls @ 105 mls/hr IVPB DAILY [facility] Last Admin: 05/25/17 13:05 Dose: 105 mls/hr Insulin Human Regular (Humulin R) 0 units SC ACCU-CHECK [facility] PRN Reason: Protocol Last Admin: 05/26/17 06:27 Dose: 3 units Magnesium Oxide (Mag-Ox) 400 mg PO DAILY [facility] Last Admin: 05/25/17 10:11 Dose: 400 mg Memantine (Namenda) 5 mg PO DAILY [facility] Last Admin: 05/25/17 10:11 Dose: 5 mg Paroxetine HCl (Paxil) 10 mg PO DAILY [facility] Last Admin: 05/25/17 10:12 Dose: 10 mg Repaglinide (Prandin) 0.5 mg PO TIDAC [facility] Last Admin: 05/25/17 17:15 Dose: 0.5 mg Sodium Bicarbonate (Sodium Bicarbonate Tab) 650 mg PO Q8 [facility] Last Admin: 05/26/17 00:22 Dose: 650 mg Vitamin B Complex/Vit C/Folic Acid (Nephro-Evon) 1 tab PO DAILY [facility] Last Admin: 05/25/17 10:10 Dose: 1 tab - Labs Labs: 05/20/17 05:30 05/24/17 10:20 PT 11.7 Seconds (9.8-13.1) 05/08/17 23:16 INR 1.0 (0.9-1.2) 05/08/17 23:16 APTT 32.4 Seconds (25.6-37.1) 05/08/17 23:16 Attending/Attestation - Attestation I have personally seen and examined this patient.: Yes I have fully participated in the care of the patient.: Yes I have reviewed all pertinent clinical information, including history, physical exam and plan: Yes
[2017-05-25] MEDS: Multivitamin Vitamin B Complex (Nephro-Vite) Tab PO SCH (10:10)
[2017-05-25] MEDS: Magnesium Oxide 400 mg Tab UD PO SCH (10:11)
--- NOTE | 2017-05-25 19:54 | CP.PCM.PN ---
Subjective - Date & Time of Evaluation Date of Evaluation: 05/25/17 Time of Evaluation: 15:00 - Subjective Subjective: SEEN ONRENAL F/U FEELS MUCH IMPROVED Objective - Vital Signs/Intake and Output Vital Signs (last 24 hours): Temp Pulse Resp BP Pulse Ox 99.3 F 73 20 129/77 99 05/25/17 16:16 05/25/17 16:16 05/25/17 16:16 05/25/17 16:16 05/25/17 16:16 - Medications Medications: Current Medications Acetaminophen (Tylenol 325mg Tab) 650 mg PO Q6 PRN PRN Reason: Other Last Admin: 05/11/17 12:10 Dose: 650 mg Clotrimazole (Lotrimin 1% Cream) 1 applic TOP BID [facility] Last Admin: 05/25/17 17:15 Dose: 1 appl Ergocalciferol (Drisdol 50,000 Intl Units Cap) 1 cap PO Q7D [facility] Last Admin: 05/22/17 09:59 Dose: 1 cap Glipizide (Glucotrol) 2.5 mg PO ACB [facility] Heparin Sodium (Porcine) (Heparin) 5,000 units SC Q12 [facility] PRN Reason: Protocol Last Admin: 05/25/17 10:09 Dose: 5,000 units Iron Sucrose 100 mg/ Sodium (Chloride) 105 mls @ 105 mls/hr IVPB DAILY [facility] Last Admin: 05/25/17 13:05 Dose: 105 mls/hr Insulin Human Regular (Humulin R) 0 units SC ACCU-CHECK [facility] PRN Reason: Protocol Last Admin: 05/25/17 17:13 Dose: 3 units Magnesium Oxide (Mag-Ox) 400 mg PO DAILY [facility] Last Admin: 05/25/17 10:11 Dose: 400 mg Memantine (Namenda) 5 mg PO DAILY [facility] Last Admin: 05/25/17 10:11 Dose: 5 mg Paroxetine HCl (Paxil) 10 mg PO DAILY [facility] Last Admin: 05/25/17 10:12 Dose: 10 mg Repaglinide (Prandin) 0.5 mg PO TIDAC [facility] Last Admin: 05/25/17 17:15 Dose: 0.5 mg Sodium Bicarbonate (Sodium Bicarbonate Tab) 650 mg PO Q8 [facility] Last Admin: 05/25/17 17:15 Dose: 650 mg Vitamin B Complex/Vit C/Folic Acid (Nephro-Evon) 1 tab PO DAILY [facility] Last Admin: 05/25/17 10:10 Dose: 1 tab - Labs Labs: 05/20/17 05:30 05/24/17 10:20 PT 11.7 Seconds (9.8-13.1) 05/08/17 23:16 INR 1.0 (0.9-1.2) 05/08/17 23:16 APTT 32.4 Seconds (25.6-37.1) 05/08/17 23:16 Assessment and Plan - Assessment and Plan (Free Text) Assessment: A ON CKD .. RENAL FUNCTION MUCH IMPROVED ANEMIA OF CKD WELL ITON DEF .. ON VENOFER SEPSIS .. FUNGUS IN URINE P : C/O CURRENT CARE
[2017-05-26] MEDS: Insulin Regular 100 units/ml SC SCH ×4 (06:27→22:30)
[2017-05-26 07:03] LABS: HEMATOCRIT 30.2 % (34.0-47.0); MEAN CELL VOLUME 80.7 fl (81.0-99.0); MEAN CORPUSCULAR HEMOGLOBIN 25.4 pg (27.0-31.0); MEAN CORPUSCULAR HGB CONC 31.5 g/dL (33.0-37.0); RED CELL DISTRIBUTION WIDTH 15.6 % (11.5-14.5); WHITE BLOOD COUNT 10.6 K/uL (4.8-10.8)
[2017-05-26 07:12] LABS: CALCIUM 8.5 mg/dL (8.4-10.2); PHOSPHOROUS 2.9 mg/dl (2.5-4.5); POTASSIUM 4.7 MMOL/L (3.6-5.0); URIC ACID 6.6 mg/Dl (2.2-7.5)
[2017-05-26] MEDS: Multivitamin Vitamin B Complex (Nephro-Vite) Tab PO SCH (09:05)
[2017-05-26] MEDS: Magnesium Oxide 400 mg Tab UD PO SCH (09:07)
--- NOTE | 2017-05-26 09:08 | CP.PCM.PN ---
<Aquiles Kern - Last Filed: 05/26/17 09:34> Subjective - Date & Time of Evaluation Date of Evaluation: 05/26/17 Time of Evaluation: 08:00 - Subjective Subjective: 76 y/o F seen at bedside. NO acute events overnight. Afebrile. VS stable. Denies CP, SOB, palpitations, changes in urination or stools, abd pain, nausea or vomiting. Objective - Vital Signs/Intake and Output Vital Signs (last 24 hours): Temp Pulse Resp BP Pulse Ox 98.4 F 74 20 136/97 H 99 05/26/17 07:41 05/26/17 07:41 05/26/17 07:41 05/26/17 07:41 05/26/17 07:41 - Medications Medications: Current Medications Acetaminophen (Tylenol 325mg Tab) 650 mg PO Q6 PRN PRN Reason: Other Last Admin: 05/11/17 12:10 Dose: 650 mg Clotrimazole (Lotrimin 1% Cream) 1 applic TOP BID [facility] Last Admin: 05/26/17 09:07 Dose: 1 appl Ergocalciferol (Drisdol 50,000 Intl Units Cap) 1 cap PO Q7D [facility] Last Admin: 05/22/17 09:59 Dose: 1 cap Glipizide (Glucotrol) 5 mg PO ACB [facility] Heparin Sodium (Porcine) (Heparin) 5,000 units SC Q12 [facility] PRN Reason: Protocol Last Admin: 05/26/17 09:04 Dose: 5,000 units Iron Sucrose 100 mg/ Sodium (Chloride) 105 mls @ 105 mls/hr IVPB DAILY [facility] Last Admin: 05/25/17 13:05 Dose: 105 mls/hr Insulin Human Regular (Humulin R) 0 units SC ACCU-CHECK [facility] PRN Reason: Protocol Last Admin: 05/26/17 06:27 Dose: 3 units Magnesium Oxide (Mag-Ox) 400 mg PO DAILY [facility] Last Admin: 05/26/17 09:07 Dose: 400 mg Memantine (Namenda) 5 mg PO DAILY [facility] Last Admin: 05/26/17 09:07 Dose: 5 mg Paroxetine HCl (Paxil) 10 mg PO DAILY [facility] Last Admin: 05/26/17 09:08 Dose: 10 mg Repaglinide (Prandin) 1 mg PO TIDAC [facility] Sodium Bicarbonate (Sodium Bicarbonate Tab) 650 mg PO Q8 [facility] Last Admin: 05/26/17 09:05 Dose: 650 mg Vitamin B Complex/Vit C/Folic Acid (Nephro-Evon) 1 tab PO DAILY [facility] Last Admin: 05/26/17 09:05 Dose: 1 tab - Labs Labs: 05/26/17 06:10 05/26/17 06:10 PT 11.7 Seconds (9.8-13.1) 05/08/17 23:16 INR 1.0 (0.9-1.2) 05/08/17 23:16 APTT 32.4 Seconds (25.6-37.1) 05/08/17 23:16 - Constitutional Appears: Non-toxic, No Acute Distress - Eye Exam Eye Exam: EOMI, PERRL - ENT Exam ENT Exam: Mucous Membranes Moist - Respiratory Exam Respiratory Exam: Clear to Ausculation Bilateral, NORMAL BREATHING PATTERN. absent: Rales, Wheezes - Cardiovascular Exam Cardiovascular Exam: REGULAR RHYTHM, +S1, +S2. absent: Gallop - GI/Abdominal Exam GI & Abdominal Exam: Soft, Normal Bowel Sounds. absent: Distended, Guarding, Tenderness - Extremities Exam Extremities Exam: Normal Capillary Refill. absent: Calf Tenderness - Neurological Exam Neurological Exam: Alert, Oriented x3 Neuro motor strength exam: Left Upper Extremity: 4, Right Upper Extremity: 4, Left Lower Extremity: 3, Right Lower Extremity: 3 - Psychiatric Exam Psychiatric exam: Depressed - Skin Skin Exam: Normal Color, Warm Assessment and Plan - Assessment and Plan (Free Text) Assessment: 76 y/o F with PMH including uncontrolled IDDM2, HTN, CKD4, Depression and history of medicine non-adherence/self neglect admitted for acidosis and acute on chronic kidney injury that is resolved. Medically cleared. In hosp due to social issues. Deconditioning/Unsteady gait -PT eval and treatment: Recs for skilled PT services but patient refuses to go to [facility] Depression, chronic -Self neglect/depression -Refuses voluntary admission to psych and [place] [facility] [place]C/W Paxil 10mg PO Daily -C/W Namenda 5mg daily -family services specialist consulted: Patient medically cleared for DC home, but family unable to receive her home at this time. -Discharge plan for 05/31/17 CKD -Stable -Nephrology consultation appreciated -C/W current plan Anemia, chronic -Stable. -Most likely chronic disease anemia vs iron def -C/W Venofer IV -EPO WNL IDDM2 with complications -Stable -C/W Lispro Sliding Scale medium dose -accucheck q6 -Prandin and Glipizide restarted at low dose. Will adjust as needed Yeast UTI -Chronic -Recently instrumented -S/P Diflucan IV HTN controlled -Valsartan 80mg PO Daily -Monitor BP Prophylaxis -Heparin 5000 units SQ Q12h <Min Woody - Last Filed: 05/29/17 06:45> Objective - Vital Signs/Intake and Output Vital Signs (last 24 hours): Temp Pulse Resp BP Pulse Ox 98.5 F 74 19 128/74 98 05/29/17 00:00 05/29/17 00:00 05/29/17 00:00 05/29/17 00:00 05/29/17 00:00 - Medications Medications: Current Medications Acetaminophen (Tylenol 325mg Tab) 650 mg PO Q6 PRN PRN Reason: Other Last Admin: 05/11/17 12:10 Dose: 650 mg Clotrimazole (Lotrimin 1% Cream) 1 applic TOP BID [facility] Last Admin: 05/28/17 16:25 Dose: 1 appl Ergocalciferol (Drisdol 50,000 Intl Units Cap) 1 cap PO Q7D [facility] Last Admin: 05/22/17 09:59 Dose: 1 cap Glipizide (Glucotrol) 5 mg PO ACB [facility] Last Admin: 05/28/17 09:25 Dose: 5 mg Heparin Sodium (Porcine) (Heparin) 5,000 units SC Q12 [facility] PRN Reason: Protocol Last Admin: 05/28/17 21:20 Dose: 5,000 units Insulin Human Regular (Humulin R) 0 units SC ACCU-CHECK [facility] PRN Reason: Protocol Last Admin: 05/28/17 23:00 Dose: Not Given Magnesium Oxide (Mag-Ox) 400 mg PO DAILY [facility] Last Admin: 05/28/17 09:29 Dose: 400 mg Memantine (Namenda) 5 mg PO DAILY [facility] Last Admin: 05/28/17 09:30 Dose: 5 mg Paroxetine HCl (Paxil) 10 mg PO DAILY [facility] Last Admin: 05/28/17 09:30 Dose: 10 mg Repaglinide (Prandin) 2 mg PO TIDAC [facility] Last Admin: 05/28/17 16:26 Dose: 2 mg Sodium Bicarbonate (Sodium Bicarbonate Tab) 650 mg PO Q8 [facility] Last Admin: 05/29/17 01:07 Dose: 650 mg Vitamin B Complex/Vit C/Folic Acid (Nephro-Evon) 1 tab PO DAILY [facility] Last Admin: 05/28/17 09:30 Dose: 1 tab - Labs Labs: 05/29/17 05:50 05/29/17 05:50 PT 11.7 Seconds (9.8-13.1) 05/08/17 23:16 INR 1.0 (0.9-1.2) 05/08/17 23:16 APTT 32.4 Seconds (25.6-37.1) 05/08/17 23:16 Attending/Attestation - Attestation I have personally seen and examined this patient.: Yes I have fully participated in the care of the patient.: Yes I have reviewed all pertinent clinical information, including history, physical exam and plan: Yes
--- NOTE | 2017-05-26 22:32 | CP.PCM.PN ---
Subjective - Date & Time of Evaluation Date of Evaluation: 05/26/17 Time of Evaluation: 14:00 - Subjective Subjective: seen on renal f/u appears in a good spirit offers no c/o all previous emr reviewed Objective - Vital Signs/Intake and Output Vital Signs (last 24 hours): Temp Pulse Resp BP Pulse Ox 99 F 74 20 115/72 95 05/26/17 16:20 05/26/17 16:20 05/26/17 16:20 05/26/17 16:20 05/26/17 16:20 - Medications Medications: Current Medications Acetaminophen (Tylenol 325mg Tab) 650 mg PO Q6 PRN PRN Reason: Other Last Admin: 05/11/17 12:10 Dose: 650 mg Clotrimazole (Lotrimin 1% Cream) 1 applic TOP BID [facility] Last Admin: 05/26/17 16:44 Dose: 1 appl Ergocalciferol (Drisdol 50,000 Intl Units Cap) 1 cap PO Q7D [facility] Last Admin: 05/22/17 09:59 Dose: 1 cap Glipizide (Glucotrol) 5 mg PO ACB [facility] Heparin Sodium (Porcine) (Heparin) 5,000 units SC Q12 [facility] PRN Reason: Protocol Last Admin: 05/26/17 21:08 Dose: 5,000 units Iron Sucrose 100 mg/ Sodium (Chloride) 105 mls @ 105 mls/hr IVPB DAILY [facility] Last Admin: 05/26/17 10:48 Dose: 105 mls/hr Insulin Human Regular (Humulin R) 0 units SC ACCU-CHECK [facility] PRN Reason: Protocol Last Admin: 05/26/17 16:44 Dose: 2 units Magnesium Oxide (Mag-Ox) 400 mg PO DAILY [facility] Last Admin: 05/26/17 09:07 Dose: 400 mg Memantine (Namenda) 5 mg PO DAILY [facility] Last Admin: 05/26/17 09:07 Dose: 5 mg Paroxetine HCl (Paxil) 10 mg PO DAILY [facility] Last Admin: 05/26/17 09:08 Dose: 10 mg Repaglinide (Prandin) 1 mg PO TIDAC [facility] Last Admin: 05/26/17 16:42 Dose: 1 mg Sodium Bicarbonate (Sodium Bicarbonate Tab) 650 mg PO Q8 [facility] Last Admin: 05/26/17 16:43 Dose: 650 mg Vitamin B Complex/Vit C/Folic Acid (Nephro-Evon) 1 tab PO DAILY [facility] Last Admin: 05/26/17 09:05 Dose: 1 tab - Labs Labs: 05/26/17 06:10 05/26/17 06:10 PT 11.7 Seconds (9.8-13.1) 05/08/17 23:16 INR 1.0 (0.9-1.2) 05/08/17 23:16 APTT 32.4 Seconds (25.6-37.1) 05/08/17 23:16 Assessment and Plan - Assessment and Plan (Free Text) Assessment: A on CKD .. renal function stable ,, stage 4 ckd ANEMIA OD CKD .. IMPROVING ON IRON SEPSIS .. BETTER FUNGUS UTI P : C/O CURRENT CARE C/O PRESENT MANAGEMENT
[2017-05-27] MEDS: Insulin Regular 100 units/ml SC SCH ×4 (09:07→22:35)
[2017-05-27] MEDS: Magnesium Oxide 400 mg Tab UD PO SCH (09:08)
[2017-05-27] MEDS: Multivitamin Vitamin B Complex (Nephro-Vite) Tab PO SCH (09:08)
--- NOTE | 2017-05-27 09:15 | CP.PCM.PN ---
Subjective - Date & Time of Evaluation Date of Evaluation: 05/27/17 Time of Evaluation: 09:00 - Subjective Subjective: 76 y/o F seen at bedside in not acute distress. Patient feels "ok". Denies CP, palpitations, SOB, changes in urination of stools. Good appetite. Encouraged to get out of bed. Pending discharge home when social issues resolve. Objective - Vital Signs/Intake and Output Vital Signs (last 24 hours): Temp Pulse Resp BP Pulse Ox 98.5 F 76 18 138/82 98 05/27/17 00:08 05/27/17 00:08 05/27/17 00:08 05/27/17 00:08 05/27/17 00:08 - Medications Medications: Current Medications Acetaminophen (Tylenol 325mg Tab) 650 mg PO Q6 PRN PRN Reason: Other Last Admin: 05/11/17 12:10 Dose: 650 mg Clotrimazole (Lotrimin 1% Cream) 1 applic TOP BID [facility] Last Admin: 05/27/17 09:07 Dose: 1 appl Ergocalciferol (Drisdol 50,000 Intl Units Cap) 1 cap PO Q7D [facility] Last Admin: 05/22/17 09:59 Dose: 1 cap Glipizide (Glucotrol) 5 mg PO ACB [facility] Last Admin: 05/27/17 09:09 Dose: 5 mg Heparin Sodium (Porcine) (Heparin) 5,000 units SC Q12 [facility] PRN Reason: Protocol Last Admin: 05/27/17 09:10 Dose: 5,000 units Iron Sucrose 100 mg/ Sodium (Chloride) 105 mls @ 105 mls/hr IVPB DAILY [facility] Last Admin: 05/26/17 10:48 Dose: 105 mls/hr Insulin Human Regular (Humulin R) 0 units SC ACCU-CHECK [facility] PRN Reason: Protocol Last Admin: 05/27/17 09:07 Dose: 3 units Magnesium Oxide (Mag-Ox) 400 mg PO DAILY [facility] Last Admin: 05/27/17 09:08 Dose: 400 mg Memantine (Namenda) 5 mg PO DAILY [facility] Last Admin: 05/27/17 09:08 Dose: 5 mg Paroxetine HCl (Paxil) 10 mg PO DAILY [facility] Last Admin: 05/27/17 09:09 Dose: 10 mg Repaglinide (Prandin) 2 mg PO TIDAC [facility] Sodium Bicarbonate (Sodium Bicarbonate Tab) 650 mg PO Q8 [facility] Last Admin: 05/27/17 09:07 Dose: 650 mg Vitamin B Complex/Vit C/Folic Acid (Nephro-Evon) 1 tab PO DAILY [facility] Last Admin: 05/27/17 09:08 Dose: 1 tab - Labs Labs: 05/26/17 06:10 05/26/17 06:10 PT 11.7 Seconds (9.8-13.1) 05/08/17 23:16 INR 1.0 (0.9-1.2) 05/08/17 23:16 APTT 32.4 Seconds (25.6-37.1) 05/08/17 23:16 - Constitutional Appears: Non-toxic, No Acute Distress - Eye Exam Eye Exam: EOMI, PERRL - ENT Exam ENT Exam: Mucous Membranes Moist - Respiratory Exam Respiratory Exam: Clear to Ausculation Bilateral, NORMAL BREATHING PATTERN. absent: Rales, Wheezes - Cardiovascular Exam Cardiovascular Exam: REGULAR RHYTHM, +S1, +S2. absent: Gallop - GI/Abdominal Exam GI & Abdominal Exam: Soft, Normal Bowel Sounds. absent: Guarding, Tenderness, Rebound - Extremities Exam Extremities Exam: Normal Capillary Refill. absent: Calf Tenderness, Pedal Edema - Neurological Exam Neurological Exam: Alert, Awake, Oriented x3 - Psychiatric Exam Psychiatric exam: Depressed - Skin Skin Exam: Normal Color, Warm Assessment and Plan - Assessment and Plan (Free Text) Assessment: 76 y/o F with PMH including uncontrolled IDDM2, HTN, CKD4, Depression and history of medicine non-adherence/self neglect admitted for acidosis and acute on chronic kidney injury that is resolved. Medically cleared. In hosp due to social issues. Depression, chronic -Self neglect/depression -Refuses voluntary admission to psych and not accepted for involuntary admission at [facility] [place] -C/W current plan -commissioner of relocation services consulted: Patient medically cleared for DC home, but family unable to receive her home at this time. -Discharge plan for 05/31/17 IDDM2 with complications -Stable -C/W Lispro Sliding Scale medium dose -accucheck q6 -Prandin increased to 2 mg w/meals -C/W Glipizide 5mg daily -Will continue monitoring CKD -Stable -Nephrology consultation appreciated -C/W current plan Anemia, chronic -Improved -Most likely chronic disease anemia vs iron def -C/W Venofer IV Yeast UTI -Chronic -Recently instrumented -S/P Diflucan IV HTN controlled -Valsartan 80mg PO Daily -Monitor BP Deconditioning/Unsteady gait -PT eval and treatment: Recs for skilled PT services but patient refuses to go to [facility] Prophylaxis -Heparin 5000 units SQ Q12h
[2017-05-28] MEDS: Insulin Regular 100 units/ml SC SCH ×4 (09:27→23:00)
[2017-05-28] MEDS: Magnesium Oxide 400 mg Tab UD PO SCH (09:29)
[2017-05-28] MEDS: Multivitamin Vitamin B Complex (Nephro-Vite) Tab PO SCH (09:30)
--- NOTE | 2017-05-28 09:46 | CP.PCM.PN ---
Subjective - Date & Time of Evaluation Date of Evaluation: 05/28/17 Time of Evaluation: 10:00 - Subjective Subjective: Pt. seen at bedside this morning with no complaints. Pt. has just finished using bed tee. Pt. states she is doing well. Overnight events reviewed and uneventful. Objective - Vital Signs/Intake and Output Vital Signs (last 24 hours): Temp Pulse Resp BP Pulse Ox 98.9 F 69 20 117/70 97 05/28/17 07:41 05/28/17 07:41 05/28/17 07:41 05/28/17 07:41 05/28/17 07:41 - Medications Medications: Current Medications Acetaminophen (Tylenol 325mg Tab) 650 mg PO Q6 PRN PRN Reason: Other Last Admin: 05/11/17 12:10 Dose: 650 mg Clotrimazole (Lotrimin 1% Cream) 1 applic TOP BID [facility] Last Admin: 05/28/17 09:29 Dose: 1 appl Ergocalciferol (Drisdol 50,000 Intl Units Cap) 1 cap PO Q7D [facility] Last Admin: 05/22/17 09:59 Dose: 1 cap Glipizide (Glucotrol) 5 mg PO ACB [facility] Last Admin: 05/28/17 09:25 Dose: 5 mg Heparin Sodium (Porcine) (Heparin) 5,000 units SC Q12 [facility] PRN Reason: Protocol Last Admin: 05/28/17 09:26 Dose: 5,000 units Insulin Human Regular (Humulin R) 0 units SC ACCU-CHECK [facility] PRN Reason: Protocol Last Admin: 05/28/17 09:27 Dose: 3 units Magnesium Oxide (Mag-Ox) 400 mg PO DAILY [facility] Last Admin: 05/28/17 09:29 Dose: 400 mg Memantine (Namenda) 5 mg PO DAILY [facility] Last Admin: 05/28/17 09:30 Dose: 5 mg Paroxetine HCl (Paxil) 10 mg PO DAILY [facility] Last Admin: 05/28/17 09:30 Dose: 10 mg Repaglinide (Prandin) 2 mg PO TIDAC [facility] Last Admin: 05/28/17 09:31 Dose: 2 mg Sodium Bicarbonate (Sodium Bicarbonate Tab) 650 mg PO Q8 [facility] Last Admin: 05/28/17 09:31 Dose: 650 mg Vitamin B Complex/Vit C/Folic Acid (Nephro-Evon) 1 tab PO DAILY [facility] Last Admin: 05/28/17 09:30 Dose: 1 tab - Labs Labs: 05/26/17 06:10 05/26/17 06:10 PT 11.7 Seconds (9.8-13.1) 05/08/17 23:16 INR 1.0 (0.9-1.2) 05/08/17 23:16 APTT 32.4 Seconds (25.6-37.1) 05/08/17 23:16 - Constitutional Appears: Non-toxic, No Acute Distress - Eye Exam Eye Exam: Normal appearance - Neck Exam Neck Exam: Full ROM - Respiratory Exam Respiratory Exam: NORMAL BREATHING PATTERN. absent: Accessory Muscle Use - Cardiovascular Exam Cardiovascular Exam: absent: JVD - GI/Abdominal Exam GI & Abdominal Exam: absent: Distended - Extremities Exam Extremities Exam: Normal Inspection - Neurological Exam Neurological Exam: Alert, Awake, Oriented x3 - Psychiatric Exam Psychiatric exam: Normal Affect, Normal Mood Assessment and Plan - Assessment and Plan (Free Text) Assessment: . 76 y.o. female with HTN, DM, CKD Stage IV admitted for acute on chronic kidney injury and underlying metablic acidosis now awaiting discharge pending resolution of social issues. Deconditioning/Unsteady gait -Continue PT/OT treatment -Patient refuses subacute rehab Depression- chronic -Refuses voluntary admission to psych and not accepted for involuntary admission at [facility] [place] -C/W Paxil 10mg PO Daily -C/W Namenda 5mg daily -Discharge plan for 05/31/17 CKD- chronic -C/W current plan Anemia, chronic -Continue to monitor IDDM2 with complications- Chronic -C/W Lispro Sliding Scale medium dose -accucheck q6 -Prandin and Glipizide restarted at low dose. Will adjust as needed Yeast UTI - Treated with I.V. diflucan - Continue to monitor HTN controlled- Chroic - Continue with current treatment Prophylaxis -Heparin 5000 units SQ Q12h
--- NOTE | 2017-05-28 15:27 | CP.PCM.PN ---
Subjective - Date & Time of Evaluation Date of Evaluation: 05/28/17 Time of Evaluation: 15:00 - Subjective Subjective: SEEN ON RENAL F/U HEMODYNAMICALLY STABLE RENAL FUNCTION STABLE .. S/P [facility] RENAL STENTS Objective - Vital Signs/Intake and Output Vital Signs (last 24 hours): Temp Pulse Resp BP Pulse Ox 98.9 F 69 20 117/70 97 05/28/17 10:00 05/28/17 10:00 05/28/17 10:00 05/28/17 10:00 05/28/17 10:00 - Medications Medications: Current Medications Acetaminophen (Tylenol 325mg Tab) 650 mg PO Q6 PRN PRN Reason: Other Last Admin: 05/11/17 12:10 Dose: 650 mg Clotrimazole (Lotrimin 1% Cream) 1 applic TOP BID [facility] Last Admin: 05/28/17 09:29 Dose: 1 appl Ergocalciferol (Drisdol 50,000 Intl Units Cap) 1 cap PO Q7D [facility] Last Admin: 05/22/17 09:59 Dose: 1 cap Glipizide (Glucotrol) 5 mg PO ACB [facility] Last Admin: 05/28/17 09:25 Dose: 5 mg Heparin Sodium (Porcine) (Heparin) 5,000 units SC Q12 [facility] PRN Reason: Protocol Last Admin: 05/28/17 09:26 Dose: 5,000 units Insulin Human Regular (Humulin R) 0 units SC ACCU-CHECK [facility] PRN Reason: Protocol Last Admin: 05/28/17 13:06 Dose: 6 units Magnesium Oxide (Mag-Ox) 400 mg PO DAILY [facility] Last Admin: 05/28/17 09:29 Dose: 400 mg Memantine (Namenda) 5 mg PO DAILY [facility] Last Admin: 05/28/17 09:30 Dose: 5 mg Paroxetine HCl (Paxil) 10 mg PO DAILY [facility] Last Admin: 05/28/17 09:30 Dose: 10 mg Repaglinide (Prandin) 2 mg PO TIDAC [facility] Last Admin: 05/28/17 13:05 Dose: 2 mg Sodium Bicarbonate (Sodium Bicarbonate Tab) 650 mg PO Q8 [facility] Last Admin: 05/28/17 09:31 Dose: 650 mg Vitamin B Complex/Vit C/Folic Acid (Nephro-Evon) 1 tab PO DAILY [facility] Last Admin: 05/28/17 09:30 Dose: 1 tab - Labs Labs: 05/26/17 06:10 05/26/17 06:10 PT 11.7 Seconds (9.8-13.1) 05/08/17 23:16 INR 1.0 (0.9-1.2) 05/08/17 23:16 APTT 32.4 Seconds (25.6-37.1) 05/08/17 23:16
[2017-05-29 06:21] LABS: HEMATOCRIT 31.8 % (34.0-47.0); MEAN CELL VOLUME 81.7 fl (81.0-99.0); MEAN CORPUSCULAR HEMOGLOBIN 25.9 pg (27.0-31.0); MEAN CORPUSCULAR HGB CONC 31.7 g/dL (33.0-37.0); RED CELL DISTRIBUTION WIDTH 15.7 % (11.5-14.5); WHITE BLOOD COUNT 11.6 K/uL (4.8-10.8)
[2017-05-29 06:24] LABS: CALCIUM 8.9 mg/dL (8.4-10.2)
[2017-05-29] MEDS: Insulin Regular 100 units/ml SC SCH ×4 (08:32→23:00)
[2017-05-29] MEDS: Magnesium Oxide 400 mg Tab UD PO SCH (08:37)
[2017-05-29] MEDS: Multivitamin Vitamin B Complex (Nephro-Vite) Tab PO SCH (08:38)
[2017-05-29] MEDS: Ergocalciferol 50,000 Intl Units Cap PO SCH (08:39)
--- NOTE | 2017-05-29 09:47 | CP.PCM.PN ---
<Aquiles Kern - Last Filed: 05/29/17 10:02> Subjective - Date & Time of Evaluation Date of Evaluation: 05/29/17 Time of Evaluation: 07:20 - Subjective Subjective: 76 /yo F seen at bedside, no acute events overnight. Denies CP, palpitations, SOB, abd pain, changes in urination or stools from her baseline. Awaiting for social issues. Objective - Vital Signs/Intake and Output Vital Signs (last 24 hours): Temp Pulse Resp BP Pulse Ox 98.6 F 71 20 100/51 L 97 05/29/17 07:57 05/29/17 07:57 05/29/17 07:57 05/29/17 07:57 05/29/17 07:57 - Medications Medications: Current Medications Acetaminophen (Tylenol 325mg Tab) 650 mg PO Q6 PRN PRN Reason: Other Last Admin: 05/11/17 12:10 Dose: 650 mg Clotrimazole (Lotrimin 1% Cream) 1 applic TOP BID [facility] Last Admin: 05/29/17 08:36 Dose: 1 appl Ergocalciferol (Drisdol 50,000 Intl Units Cap) 1 cap PO Q7D [facility] Last Admin: 05/29/17 08:39 Dose: 1 cap Glipizide (Glucotrol) 5 mg PO ACB [facility] Last Admin: 05/29/17 08:38 Dose: 5 mg Heparin Sodium (Porcine) (Heparin) 5,000 units SC Q12 [facility] PRN Reason: Protocol Last Admin: 05/29/17 08:34 Dose: 5,000 units Insulin Human Regular (Humulin R) 0 units SC ACCU-CHECK [facility] PRN Reason: Protocol Last Admin: 05/29/17 08:32 Dose: 2 units Magnesium Oxide (Mag-Ox) 400 mg PO DAILY [facility] Last Admin: 05/29/17 08:37 Dose: 400 mg Memantine (Namenda) 5 mg PO DAILY [facility] Last Admin: 05/29/17 08:38 Dose: 5 mg Paroxetine HCl (Paxil) 10 mg PO DAILY [facility] Last Admin: 05/29/17 08:37 Dose: 10 mg Repaglinide (Prandin) 2 mg PO TIDAC [facility] Last Admin: 05/29/17 08:38 Dose: 2 mg Sodium Bicarbonate (Sodium Bicarbonate Tab) 650 mg PO Q8 [facility] Last Admin: 05/29/17 08:37 Dose: 650 mg Vitamin B Complex/Vit C/Folic Acid (Nephro-Evon) 1 tab PO DAILY [facility] Last Admin: 05/29/17 08:38 Dose: 1 tab - Labs Labs: 05/29/17 05:50 05/29/17 05:50 PT 11.7 Seconds (9.8-13.1) 05/08/17 23:16 INR 1.0 (0.9-1.2) 05/08/17 23:16 APTT 32.4 Seconds (25.6-37.1) 05/08/17 23:16 - Constitutional Appears: Non-toxic, No Acute Distress - Eye Exam Eye Exam: EOMI, PERRL - ENT Exam ENT Exam: Mucous Membranes Moist - Respiratory Exam Respiratory Exam: Clear to Ausculation Bilateral, NORMAL BREATHING PATTERN. absent: Rales, Wheezes - Cardiovascular Exam Cardiovascular Exam: REGULAR RHYTHM, +S1, +S2. absent: Gallop - GI/Abdominal Exam GI & Abdominal Exam: Soft, Normal Bowel Sounds. absent: Tenderness - Extremities Exam Extremities Exam: Pedal Edema (+). absent: Calf Tenderness - Neurological Exam Neurological Exam: Alert, Awake, Oriented x3 - Psychiatric Exam Psychiatric exam: Depressed - Skin Skin Exam: Normal Color, Warm Assessment and Plan - Assessment and Plan (Free Text) Assessment: 76 y/o F with PMH including uncontrolled IDDM2, HTN, CKD4, Depression and history of medicine non-adherence/self neglect admitted for acidosis and acute on chronic kidney injury that is resolved. Medically cleared. In hosp due to social issues. Depression, chronic -Self neglect/depression -Refuses voluntary admission to psych and not accepted for involuntary admission at [facility] [place] -C/W current plan -insurance and financial services agent consulted: Patient medically cleared for DC home, but family unable to receive her home at this time. -Discharge plan unknown at this time IDDM2 with complications -Stable -C/W Lispro Sliding Scale medium dose -accucheck q6 -C/W Prandin 2 mg w/meals -Increase Glipizide to 10g daily -Will continue monitoring CKD -Stable -Nephrology consultation appreciated -C/W current plan Anemia, chronic -Improved -Most likely chronic disease anemia vs iron def -C/W Venofer IV Yeast UTI -Chronic -Recently instrumented -S/P Diflucan IV HTN controlled -Valsartan 80mg PO Daily -Monitor BP Deconditioning/Unsteady gait -PT eval and treatment: Recs for skilled PT services but patient refuses to go to [facility] Prophylaxis -Heparin 5000 units SQ Q12h <Jose Juan Boswell - Last Filed: 05/30/17 13:13> Objective - Vital Signs/Intake and Output Vital Signs (last 24 hours): Temp Pulse Resp BP Pulse Ox 98.4 F 75 20 123/76 96 05/30/17 08:28 05/30/17 08:28 05/30/17 08:28 05/30/17 08:28 05/30/17 08:28 - Medications Medications: Current Medications Acetaminophen (Tylenol 325mg Tab) 650 mg PO Q6 PRN PRN Reason: Other Last Admin: 05/11/17 12:10 Dose: 650 mg Clotrimazole (Lotrimin 1% Cream) 1 applic TOP BID [facility] Last Admin: 05/30/17 09:02 Dose: 1 appl Ergocalciferol (Drisdol 50,000 Intl Units Cap) 1 cap PO Q7D [facility] Last Admin: 05/29/17 08:39 Dose: 1 cap Glipizide (Glucotrol) 10 mg PO ACB [facility] Last Admin: 05/30/17 09:01 Dose: 10 mg Heparin Sodium (Porcine) (Heparin) 5,000 units SC Q12 [facility] PRN Reason: Protocol Last Admin: 05/30/17 09:01 Dose: 5,000 units Insulin Human Regular (Humulin R) 0 units SC ACCU-CHECK [facility] PRN Reason: Protocol Last Admin: 05/30/17 12:37 Dose: 6 units Magnesium Oxide (Mag-Ox) 400 mg PO DAILY [facility] Last Admin: 05/30/17 09:03 Dose: 400 mg Memantine (Namenda) 5 mg PO DAILY [facility] Last Admin: 05/30/17 09:03 Dose: 5 mg Paroxetine HCl (Paxil) 10 mg PO DAILY [facility] Last Admin: 05/30/17 09:03 Dose: 10 mg Repaglinide (Prandin) 2 mg PO TIDAC [facility] Last Admin: 05/30/17 12:37 Dose: 2 mg Sitagliptin Phosphate (Januvia) 25 mg PO DAILY [facility] Last Admin: 05/30/17 09:03 Dose: 25 mg Sodium Bicarbonate (Sodium Bicarbonate Tab) 650 mg PO Q8 [facility] Last Admin: 05/30/17 09:03 Dose: 650 mg Vitamin B Complex/Vit C/Folic Acid (Nephro-Evon) 1 tab PO DAILY [facility] Last Admin: 05/30/17 09:03 Dose: 1 tab - Labs Labs: 05/29/17 05:50 05/29/17 05:50 PT 11.7 Seconds (9.8-13.1) 05/08/17 23:16 INR 1.0 (0.9-1.2) 05/08/17 23:16 APTT 32.4 Seconds (25.6-37.1) 05/08/17 23:16 Attending/Attestation - Attestation I have personally seen and examined this patient.: Yes I have fully participated in the care of the patient.: Yes I have reviewed all pertinent clinical information, including history, physical exam and plan: Yes
--- NOTE | 2017-05-29 20:02 | CP.PCM.PN ---
Subjective - Date & Time of Evaluation Date of Evaluation: 05/29/17 Time of Evaluation: 15:00 - Subjective Subjective: SEEN ON RENAL F/U FEELS MUCH IMPROVED RENAL FUNCTION STABLE AT eGFR 22ML/M H/H BETTER STATES THAT HER URINATION IS MUCH BETTER .. SHE CAN HOLD HER URINE BETTER C/O CURRENT CARE Objective - Vital Signs/Intake and Output Vital Signs (last 24 hours): Temp Pulse Resp BP Pulse Ox 98.6 F 79 20 110/70 98 05/29/17 16:46 05/29/17 16:46 05/29/17 16:46 05/29/17 16:46 05/29/17 16:46 - Medications Medications: Current Medications Acetaminophen (Tylenol 325mg Tab) 650 mg PO Q6 PRN PRN Reason: Other Last Admin: 05/11/17 12:10 Dose: 650 mg Clotrimazole (Lotrimin 1% Cream) 1 applic TOP BID [facility] Last Admin: 05/29/17 17:29 Dose: 1 appl Ergocalciferol (Drisdol 50,000 Intl Units Cap) 1 cap PO Q7D [facility] Last Admin: 05/29/17 08:39 Dose: 1 cap Glipizide (Glucotrol) 10 mg PO ACB [facility] Heparin Sodium (Porcine) (Heparin) 5,000 units SC Q12 [facility] PRN Reason: Protocol Last Admin: 05/29/17 08:34 Dose: 5,000 units Insulin Human Regular (Humulin R) 0 units SC ACCU-CHECK [facility] PRN Reason: Protocol Last Admin: 05/29/17 17:29 Dose: 2 units Magnesium Oxide (Mag-Ox) 400 mg PO DAILY [facility] Last Admin: 05/29/17 08:37 Dose: 400 mg Memantine (Namenda) 5 mg PO DAILY [facility] Last Admin: 05/29/17 08:38 Dose: 5 mg Paroxetine HCl (Paxil) 10 mg PO DAILY [facility] Last Admin: 05/29/17 08:37 Dose: 10 mg Repaglinide (Prandin) 2 mg PO TIDAC [facility] Last Admin: 05/29/17 17:29 Dose: 2 mg Sodium Bicarbonate (Sodium Bicarbonate Tab) 650 mg PO Q8 [facility] Last Admin: 05/29/17 17:29 Dose: 650 mg Vitamin B Complex/Vit C/Folic Acid (Nephro-Evon) 1 tab PO DAILY [facility] Last Admin: 05/29/17 08:38 Dose: 1 tab - Labs Labs: 05/29/17 05:50 05/29/17 05:50 PT 11.7 Seconds (9.8-13.1) 05/08/17 23:16 INR 1.0 (0.9-1.2) 05/08/17 23:16 APTT 32.4 Seconds (25.6-37.1) 05/08/17 23:16
--- NOTE | 2017-05-30 06:59 | CP.PCM.PN ---
<Aquiles Kern - Last Filed: 05/30/17 08:43> Subjective - Date & Time of Evaluation Date of Evaluation: 05/30/17 Time of Evaluation: 07:15 - Subjective Subjective: 76 y/o F seen at bedside in not acute distress, denies CP, palpitations, SOB, diarrhea, vomiting. TOlerating PO diet. Awaiting for social issues to be resolve for DC home. Objective - Vital Signs/Intake and Output Vital Signs (last 24 hours): Temp Pulse Resp BP Pulse Ox 97.8 F 79 18 143/82 95 05/30/17 00:26 05/30/17 00:26 05/30/17 00:26 05/30/17 00:26 05/30/17 00:26 - Medications Medications: Current Medications Acetaminophen (Tylenol 325mg Tab) 650 mg PO Q6 PRN PRN Reason: Other Last Admin: 05/11/17 12:10 Dose: 650 mg Clotrimazole (Lotrimin 1% Cream) 1 applic TOP BID [facility] Last Admin: 05/29/17 17:29 Dose: 1 appl Ergocalciferol (Drisdol 50,000 Intl Units Cap) 1 cap PO Q7D [facility] Last Admin: 05/29/17 08:39 Dose: 1 cap Glipizide (Glucotrol) 10 mg PO ACB [facility] Heparin Sodium (Porcine) (Heparin) 5,000 units SC Q12 [facility] PRN Reason: Protocol Last Admin: 05/29/17 21:34 Dose: 5,000 units Insulin Human Regular (Humulin R) 0 units SC ACCU-CHECK [facility] PRN Reason: Protocol Last Admin: 05/29/17 23:00 Dose: Not Given Magnesium Oxide (Mag-Ox) 400 mg PO DAILY [facility] Last Admin: 05/29/17 08:37 Dose: 400 mg Memantine (Namenda) 5 mg PO DAILY [facility] Last Admin: 05/29/17 08:38 Dose: 5 mg Paroxetine HCl (Paxil) 10 mg PO DAILY [facility] Last Admin: 05/29/17 08:37 Dose: 10 mg Repaglinide (Prandin) 2 mg PO TIDAC [facility] Last Admin: 05/29/17 17:29 Dose: 2 mg Sodium Bicarbonate (Sodium Bicarbonate Tab) 650 mg PO Q8 [facility] Last Admin: 05/30/17 01:23 Dose: 650 mg Vitamin B Complex/Vit C/Folic Acid (Nephro-Evon) 1 tab PO DAILY [facility] Last Admin: 05/29/17 08:38 Dose: 1 tab - Labs Labs: 05/29/17 05:50 05/29/17 05:50 PT 11.7 Seconds (9.8-13.1) 05/08/17 23:16 INR 1.0 (0.9-1.2) 05/08/17 23:16 APTT 32.4 Seconds (25.6-37.1) 05/08/17 23:16 - Constitutional Appears: Non-toxic, No Acute Distress - Eye Exam Eye Exam: EOMI - ENT Exam ENT Exam: Mucous Membranes Moist - Respiratory Exam Respiratory Exam: Clear to Ausculation Bilateral, NORMAL BREATHING PATTERN. absent: Rales, Wheezes - Cardiovascular Exam Cardiovascular Exam: REGULAR RHYTHM, +S1, +S2. absent: Murmur - GI/Abdominal Exam GI & Abdominal Exam: Soft, Normal Bowel Sounds. absent: Guarding, Tenderness, Rebound - Extremities Exam Extremities Exam: Normal Capillary Refill, Pedal Edema. absent: Calf Tenderness , Tenderness - Neurological Exam Neurological Exam: Alert, Awake, Oriented x3 - Psychiatric Exam Psychiatric exam: Depressed - Skin Skin Exam: Normal Color, Warm Assessment and Plan - Assessment and Plan (Free Text) Assessment: 76 y/o F with PMH including uncontrolled IDDM2, HTN, CKD4, Depression and history of medicine non-adherence/self neglect admitted for acidosis and acute on chronic kidney injury that is resolved. Medically cleared. In hosp due to social issues. Depression, chronic -Self neglect/depression -C/W current plan -visitor services specialist consulted: Patient medically cleared for DC home, but family unable to receive her home at this time. -Discharge plan unknown at this time IDDM2 with complications -Stable -C/W Lispro Sliding Scale medium dose -accucheck q6 -C/W Prandin 2 mg w/meals, Glipizde 10mg daily -Start Januvia 25mg daily CKD -Stable -Nephrology consultation appreciated -C/W current plan Anemia, chronic -Improved -Most likely chronic disease anemia vs iron def -C/W Venofer IV as per Nephro recs HTN controlled -Valsartan 80mg PO Daily -Monitor BP Deconditioning/Unsteady gait -PT eval and treatment: Recs for skilled PT services but patient refuses to go to [facility] Prophylaxis -Heparin 5000 units SQ Q12h <Min Woody - Last Filed: 05/30/17 12:28> Objective - Vital Signs/Intake and Output Vital Signs (last 24 hours): Temp Pulse Resp BP Pulse Ox 98.4 F 75 20 123/76 96 05/30/17 08:28 05/30/17 08:28 05/30/17 08:28 05/30/17 08:28 05/30/17 08:28 - Medications Medications: Current Medications Acetaminophen (Tylenol 325mg Tab) 650 mg PO Q6 PRN PRN Reason: Other Last Admin: 05/11/17 12:10 Dose: 650 mg Clotrimazole (Lotrimin 1% Cream) 1 applic TOP BID [facility] Last Admin: 05/30/17 09:02 Dose: 1 appl Ergocalciferol (Drisdol 50,000 Intl Units Cap) 1 cap PO Q7D [facility] Last Admin: 05/29/17 08:39 Dose: 1 cap Glipizide (Glucotrol) 10 mg PO ACB [facility] Last Admin: 05/30/17 09:01 Dose: 10 mg Heparin Sodium (Porcine) (Heparin) 5,000 units SC Q12 [facility] PRN Reason: Protocol Last Admin: 05/30/17 09:01 Dose: 5,000 units Insulin Human Regular (Humulin R) 0 units SC ACCU-CHECK [facility] PRN Reason: Protocol Last Admin: 05/30/17 09:01 Dose: 3 units Magnesium Oxide (Mag-Ox) 400 mg PO DAILY [facility] Last Admin: 05/30/17 09:03 Dose: 400 mg Memantine (Namenda) 5 mg PO DAILY [facility] Last Admin: 05/30/17 09:03 Dose: 5 mg Paroxetine HCl (Paxil) 10 mg PO DAILY [facility] Last Admin: 05/30/17 09:03 Dose: 10 mg Repaglinide (Prandin) 2 mg PO TIDAC [facility] Last Admin: 05/30/17 09:03 Dose: 2 mg Sitagliptin Phosphate (Januvia) 25 mg PO DAILY [facility] Last Admin: 05/30/17 09:03 Dose: 25 mg Sodium Bicarbonate (Sodium Bicarbonate Tab) 650 mg PO Q8 [facility] Last Admin: 05/30/17 09:03 Dose: 650 mg Vitamin B Complex/Vit C/Folic Acid (Nephro-Evon) 1 tab PO DAILY [facility] Last Admin: 05/30/17 09:03 Dose: 1 tab - Labs Labs: 05/29/17 05:50 05/29/17 05:50 PT 11.7 Seconds (9.8-13.1) 05/08/17 23:16 INR 1.0 (0.9-1.2) 05/08/17 23:16 APTT 32.4 Seconds (25.6-37.1) 05/08/17 23:16 Attending/Attestation - Attestation I have personally seen and examined this patient.: Yes I have fully participated in the care of the patient.: Yes I have reviewed all pertinent clinical information, including history, physical exam and plan: Yes
[2017-05-30] MEDS: Insulin Regular 100 units/ml SC SCH ×4 (09:01→23:16)
[2017-05-30] MEDS: Multivitamin Vitamin B Complex (Nephro-Vite) Tab PO SCH (09:03)
[2017-05-30] MEDS: Magnesium Oxide 400 mg Tab UD PO SCH (09:03)
[2017-05-30 12:24] LABS: RBC URINE 113 /hpf (0-3); URINE BILIRUBIN NEGATIVE (NEGATIVE); URINE BLOOD MODERATE (NEGATIVE); URINE COLOR YELLOW (YELLOW); URINE GLUCOSE (UA) NEG (Normal); URINE KETONE NEGATIVE (NEGATIVE); URINE LEUKOCYTE ESTERASE MOD Leu/uL (Negative); URINE PROTEIN 100 mg/dL (NEGATIVE); URINE UROBILINOGEN 0.2-1.0 mg/dL (0.2-1.0); WBC CLUMPS MANY /hpf; WBC URINE 7961 /hpf (0-5)
--- NOTE | 2017-05-30 20:25 | CP.PCM.PN ---
Subjective - Date & Time of Evaluation Date of Evaluation: 05/30/17 Time of Evaluation: 13:00 - Subjective Subjective: SEEN ON RENAL F/U FEELS MUCH BETTER ALL PREVIOUS EMR REVIEWED RENAL FUNCTION STABLE S/P [facility] ST[facility] Objective - Vital Signs/Intake and Output Vital Signs (last 24 hours): Temp Pulse Resp BP Pulse Ox 99.1 F 93 H 20 101/70 98 05/30/17 16:10 05/30/17 16:10 05/30/17 16:10 05/30/17 16:10 05/30/17 16:10 - Medications Medications: Current Medications Acetaminophen (Tylenol 325mg Tab) 650 mg PO Q6 PRN PRN Reason: Other Last Admin: 05/11/17 12:10 Dose: 650 mg Clotrimazole (Lotrimin 1% Cream) 1 applic TOP BID [facility] Last Admin: 05/30/17 16:37 Dose: 1 appl Ergocalciferol (Drisdol 50,000 Intl Units Cap) 1 cap PO Q7D [facility] Last Admin: 05/29/17 08:39 Dose: 1 cap Glipizide (Glucotrol) 10 mg PO ACB [facility] Last Admin: 05/30/17 09:01 Dose: 10 mg Heparin Sodium (Porcine) (Heparin) 5,000 units SC Q12 [facility] PRN Reason: Protocol Last Admin: 05/30/17 09:01 Dose: 5,000 units Insulin Human Regular (Humulin R) 0 units SC ACCU-CHECK [facility] PRN Reason: Protocol Last Admin: 05/30/17 17:17 Dose: 2 units Magnesium Oxide (Mag-Ox) 400 mg PO DAILY [facility] Last Admin: 05/30/17 09:03 Dose: 400 mg Memantine (Namenda) 5 mg PO DAILY [facility] Last Admin: 05/30/17 09:03 Dose: 5 mg Paroxetine HCl (Paxil) 10 mg PO DAILY [facility] Last Admin: 05/30/17 09:03 Dose: 10 mg Repaglinide (Prandin) 2 mg PO TIDAC [facility] Last Admin: 05/30/17 16:38 Dose: 2 mg Sitagliptin Phosphate (Januvia) 25 mg PO DAILY [facility] Last Admin: 05/30/17 09:03 Dose: 25 mg Sodium Bicarbonate (Sodium Bicarbonate Tab) 650 mg PO Q8 [facility] Last Admin: 05/30/17 16:38 Dose: 650 mg Vitamin B Complex/Vit C/Folic Acid (Nephro-Evon) 1 tab PO DAILY [facility] Last Admin: 05/30/17 09:03 Dose: 1 tab - Labs Labs: 05/29/17 05:50 05/29/17 05:50 PT 11.7 Seconds (9.8-13.1) 05/08/17 23:16 INR 1.0 (0.9-1.2) 05/08/17 23:16 APTT 32.4 Seconds (25.6-37.1) 05/08/17 23:16
--- NOTE | 2017-05-31 07:43 | CP.PCM.PN ---
<ErlinAquiles - Last Filed: 05/31/17 08:28> Subjective - Date & Time of Evaluation Date of Evaluation: 05/31/17 Time of Evaluation: 07:20 - Subjective Subjective: 76 y/o F seen at bedside. SHe has no complains today and states she feels "great ". Denies CP, SOB, palpitations, changes in urination or stools. Patient refuses to go to [facility] and Psych voluntary admission. Her home is being remodeled. Objective - Vital Signs/Intake and Output Vital Signs (last 24 hours): Temp Pulse Resp BP Pulse Ox 98 F 75 19 120/73 97 05/31/17 00:45 05/31/17 00:45 05/31/17 00:45 05/31/17 00:45 05/31/17 00:45 - Medications Medications: Current Medications Acetaminophen (Tylenol 325mg Tab) 650 mg PO Q6 PRN PRN Reason: Other Last Admin: 05/11/17 12:10 Dose: 650 mg Clotrimazole (Lotrimin 1% Cream) 1 applic TOP BID [facility] Last Admin: 05/30/17 16:37 Dose: 1 appl Ergocalciferol (Drisdol 50,000 Intl Units Cap) 1 cap PO Q7D [facility] Last Admin: 05/29/17 08:39 Dose: 1 cap Glipizide (Glucotrol) 10 mg PO ACB [facility] Last Admin: 05/30/17 09:01 Dose: 10 mg Heparin Sodium (Porcine) (Heparin) 5,000 units SC Q12 [facility] PRN Reason: Protocol Last Admin: 05/30/17 20:58 Dose: 5,000 units Insulin Human Regular (Humulin R) 0 units SC ACCU-CHECK [facility] PRN Reason: Protocol Last Admin: 05/30/17 23:16 Dose: Not Given Magnesium Oxide (Mag-Ox) 400 mg PO DAILY [facility] Last Admin: 05/30/17 09:03 Dose: 400 mg Memantine (Namenda) 5 mg PO DAILY [facility] Last Admin: 05/30/17 09:03 Dose: 5 mg Paroxetine HCl (Paxil) 10 mg PO DAILY [facility] Last Admin: 05/30/17 09:03 Dose: 10 mg Repaglinide (Prandin) 2 mg PO TIDAC [facility] Last Admin: 05/30/17 16:38 Dose: 2 mg Sitagliptin Phosphate (Januvia) 25 mg PO DAILY [facility] Last Admin: 05/30/17 09:03 Dose: 25 mg Sodium Bicarbonate (Sodium Bicarbonate Tab) 650 mg PO Q8 [facility] Last Admin: 05/31/17 01:30 Dose: 650 mg Vitamin B Complex/Vit C/Folic Acid (Nephro-Evon) 1 tab PO DAILY [facility] Last Admin: 05/30/17 09:03 Dose: 1 tab - Labs Labs: 05/29/17 05:50 05/29/17 05:50 PT 11.7 Seconds (9.8-13.1) 05/08/17 23:16 INR 1.0 (0.9-1.2) 05/08/17 23:16 APTT 32.4 Seconds (25.6-37.1) 05/08/17 23:16 - Constitutional Appears: Non-toxic, No Acute Distress - Eye Exam Eye Exam: EOMI, PERRL - Respiratory Exam Respiratory Exam: Clear to Ausculation Bilateral, NORMAL BREATHING PATTERN. absent: Rales, Wheezes - Cardiovascular Exam Cardiovascular Exam: REGULAR RHYTHM, +S1, +S2. absent: Gallop - GI/Abdominal Exam GI & Abdominal Exam: Soft, Normal Bowel Sounds - Extremities Exam Extremities Exam: Normal Capillary Refill, Pedal Edema (trace). absent: Calf Tenderness - Neurological Exam Neurological Exam: Alert, Awake, Oriented x3 - Psychiatric Exam Psychiatric exam: Normal Affect, Normal Mood - Skin Skin Exam: Normal Color, Warm Assessment and Plan - Assessment and Plan (Free Text) Assessment: 76 y/o F with PMH including uncontrolled IDDM2, HTN, CKD4, Depression and history of medicine non-adherence/self neglect admitted for acidosis and acute on chronic kidney injury that is resolved. Medically cleared. In hosp due to social issues. Depression, chronic -Self neglect/depression -C/W current plan -community services coordinator consulted: Patient medically cleared for DC home, but family unable to receive her home at this time. -Discharge plan unknown at this time IDDM2 with complications -Improving -C/W Lispro Sliding Scale medium dose -accucheck q6 -C/W Prandin 2 mg w/meals, Glipizde 10mg daily -C/W Januvia 25mg daily CKD -Stable -Nephrology consultation appreciated -C/W current plan. Mg PO added Anemia, chronic -Improved -Most likely chronic disease anemia vs iron def -S/P IV Iron HTN controlled -Valsartan 80mg PO Daily -Monitor BP Deconditioning/Unsteady gait -PT eval and treatment: Recs for skilled PT services but patient refuses to go to [facility] Prophylaxis -Heparin 5000 units SQ Q12h <Jose Juan Boswell - Last Filed: 06/07/17 06:56> Objective - Vital Signs/Intake and Output Vital Signs (last 24 hours): Temp Pulse Resp BP Pulse Ox 98.6 F 71 18 101/67 97 06/02/17 15:55 06/02/17 15:55 06/02/17 15:55 06/02/17 15:55 06/02/17 15:55 - Labs Labs: 06/02/17 12:35 06/02/17 12:35 PT 11.7 Seconds (9.8-13.1) 05/08/17 23:16 INR 1.0 (0.9-1.2) 05/08/17 23:16 APTT 32.4 Seconds (25.6-37.1) 05/08/17 23:16 Attending/Attestation - Attestation I have personally seen and examined this patient.: Yes I have fully participated in the care of the patient.: Yes I have reviewed all pertinent clinical information, including history, physical exam and plan: Yes
[2017-05-31] MEDS: Multivitamin Vitamin B Complex (Nephro-Vite) Tab PO SCH (08:32)
[2017-05-31] MEDS: Insulin Regular 100 units/ml SC SCH ×4 (08:33→22:30)
[2017-05-31] MEDS: Magnesium Oxide 400 mg Tab UD PO SCH (08:34)
[2017-06-01 07:01] LABS: HEMATOCRIT 32.3 % (34.0-47.0); MEAN CELL VOLUME 81.9 fl (81.0-99.0); MEAN CORPUSCULAR HGB CONC 31.7 g/dL (33.0-37.0); RED CELL DISTRIBUTION WIDTH 15.9 % (11.5-14.5); WHITE BLOOD COUNT 12.4 K/uL (4.8-10.8)
[2017-06-01 07:17] LABS: CALCIUM 8.4 mg/dL (8.4-10.2); POTASSIUM 5.2 MMOL/L (3.6-5.0)
--- NOTE | 2017-06-01 08:02 | CP.PCM.PN ---
Subjective - Date & Time of Evaluation Date of Evaluation: 06/01/17 Time of Evaluation: 07:10 - Subjective Subjective: 76 y/o F seen at bedside in not acute distress. SHe feels "ok". Denies vomiting , nausea, diarrhea, CP, SOB, dysuria, palpitations. Afebrile. Awaiting home placement. Objective - Vital Signs/Intake and Output Vital Signs (last 24 hours): Temp Pulse Resp BP Pulse Ox 98.1 F 73 19 129/86 97 06/01/17 00:18 06/01/17 00:18 06/01/17 00:18 06/01/17 00:18 06/01/17 00:18 - Medications Medications: Current Medications Acetaminophen (Tylenol 325mg Tab) 650 mg PO Q6 PRN PRN Reason: Other Last Admin: 05/11/17 12:10 Dose: 650 mg Clotrimazole (Lotrimin 1% Cream) 1 applic TOP BID [facility] Last Admin: 05/31/17 16:34 Dose: 1 appl Ergocalciferol (Drisdol 50,000 Intl Units Cap) 1 cap PO Q7D [facility] Last Admin: 05/29/17 08:39 Dose: 1 cap Glipizide (Glucotrol) 10 mg PO ACB [facility] Last Admin: 05/31/17 08:32 Dose: 10 mg Heparin Sodium (Porcine) (Heparin) 5,000 units SC Q12 [facility] PRN Reason: Protocol Last Admin: 05/31/17 21:00 Dose: 5,000 units Insulin Human Regular (Humulin R) 0 units SC ACCU-CHECK [facility] PRN Reason: Protocol Last Admin: 05/31/17 22:30 Dose: Not Given Magnesium Oxide (Mag-Ox) 400 mg PO DAILY [facility] Last Admin: 05/31/17 08:34 Dose: 400 mg Memantine (Namenda) 5 mg PO DAILY [facility] Last Admin: 05/31/17 08:33 Dose: 5 mg Paroxetine HCl (Paxil) 10 mg PO DAILY [facility] Last Admin: 05/31/17 08:32 Dose: 10 mg Repaglinide (Prandin) 2 mg PO TIDAC [facility] Last Admin: 05/31/17 16:35 Dose: 2 mg Sitagliptin Phosphate (Januvia) 25 mg PO DAILY [facility] Last Admin: 05/31/17 08:32 Dose: 25 mg Sodium Bicarbonate (Sodium Bicarbonate Tab) 650 mg PO Q8 [facility] Last Admin: 06/01/17 00:12 Dose: 650 mg Vitamin B Complex/Vit C/Folic Acid (Nephro-Evon) 1 tab PO DAILY [facility] Last Admin: 05/31/17 08:32 Dose: 1 tab - Labs Labs: 06/01/17 06:20 06/01/17 06:20 PT 11.7 Seconds (9.8-13.1) 05/08/17 23:16 INR 1.0 (0.9-1.2) 05/08/17 23:16 APTT 32.4 Seconds (25.6-37.1) 05/08/17 23:16 - Constitutional Appears: Non-toxic - Eye Exam Eye Exam: EOMI - ENT Exam ENT Exam: Mucous Membranes Moist - Respiratory Exam Respiratory Exam: Clear to Ausculation Bilateral, NORMAL BREATHING PATTERN. absent: Rales, Wheezes - Cardiovascular Exam Cardiovascular Exam: REGULAR RHYTHM, +S1, +S2. absent: Murmur - GI/Abdominal Exam GI & Abdominal Exam: Soft, Normal Bowel Sounds. absent: Tenderness, Rebound - Back Exam Back Exam: absent: CVA tenderness (L), CVA tenderness (R) - Neurological Exam Neurological Exam: Alert, Awake, Oriented x3 - Psychiatric Exam Psychiatric exam: Depressed - Skin Skin Exam: Normal Color, Warm Assessment and Plan - Assessment and Plan (Free Text) Assessment: 76 y/o F with PMH including uncontrolled IDDM2, HTN, CKD4, Depression and history of medicine non-adherence/self neglect admitted for acidosis and acute on chronic kidney injury that is resolved. Medically cleared. In hosp due to social issues. Leukocytosis/Thrombocytosis -Reactive? -WBC 12.4 -Afebrile, UCx 05/29/17 <1000 colonies -Asymptomatic -VS stable -Repeat UCx ordered Today -Stop Vit B(B12 >1000) Depression, chronic -Self neglect/depression -C/W current plan -visitor services coordinator consulted: Patient medically cleared for DC home, but family unable to receive her home at this time. -Anticipated DC tomorrow 05/23/17 as per notes. IDDM2 with complications -Improving -C/W Lispro Sliding Scale medium dose -accucheck q6 -C/W Prandin 2 mg w/meals, Glipizide 10mg daily -C/W Januvia 25mg daily CKD -K=5.2 pOssible due to hypermagnesemia -MG elevated, will hold Mg PO -Stable -Nephrology consultation appreciated Anemia, chronic -Stable -Most likely chronic disease anemia vs iron def -S/P IV Iron HTN controlled -Stable w/o meds at this time Deconditioning/Unsteady gait -PT eval and treatment: Recs for skilled PT services but patient refuses to go to [facility] Prophylaxis -Heparin 5000 units SQ Q12h
[2017-06-01] MEDS: Insulin Regular 100 units/ml SC SCH ×4 (08:30→22:30)
[2017-06-01] MEDS: Multivitamin Vitamin B Complex (Nephro-Vite) Tab PO SCH (08:32)
[2017-06-01 18:48] LABS: RBC URINE 97 /hpf (0-3); URINE BACTERIA MANY (<OCC); WBC CLUMPS MANY /hpf; WBC URINE 1205 /hpf (0-5)
[2017-06-01 18:55] LABS: URINE BILIRUBIN NEGATIVE (NEGATIVE); URINE COLOR YELLOW (YELLOW); URINE GLUCOSE (UA) 100 mg/dL (Normal); URINE KETONE NEGATIVE (NEGATIVE)
[2017-06-01 18:56] LABS: URINE BLOOD MODERATE (NEGATIVE); URINE PROTEIN 100 mg/dL (NEGATIVE); URINE UROBILINOGEN 0.2 mg/dL (0.2-1.0)
[2017-06-01 18:57] LABS: URINE LEUKOCYTE ESTERASE LARGE Leu/uL (Negative)
--- NOTE | 2017-06-01 22:31 | CP.PCM.PN ---
Subjective - Date & Time of Evaluation Date of Evaluation: 06/01/17 Time of Evaluation: 15:00 - Subjective Subjective: CLINICALLY MUCH BETTER RENAL FUNCTION LOW BUT STABLE URINE STILL WITH FUNGUS P: START DIFLUCAN 100 MG PO DAILY Objective - Vital Signs/Intake and Output Vital Signs (last 24 hours): Temp Pulse Resp BP Pulse Ox 98.1 F 89 20 110/73 98 06/01/17 16:14 06/01/17 16:14 06/01/17 16:14 06/01/17 16:14 06/01/17 16:14 - Medications Medications: Current Medications Acetaminophen (Tylenol 325mg Tab) 650 mg PO Q6 PRN PRN Reason: Other Last Admin: 05/11/17 12:10 Dose: 650 mg Clotrimazole (Lotrimin 1% Cream) 1 applic TOP BID [facility] Last Admin: 06/01/17 17:58 Dose: 1 appl Ergocalciferol (Drisdol 50,000 Intl Units Cap) 1 cap PO Q7D [facility] Last Admin: 05/29/17 08:39 Dose: 1 cap Glipizide (Glucotrol) 10 mg PO ACB [facility] Last Admin: 06/01/17 08:29 Dose: 10 mg Heparin Sodium (Porcine) (Heparin) 5,000 units SC Q12 [facility] PRN Reason: Protocol Last Admin: 06/01/17 21:05 Dose: 5,000 units Insulin Human Regular (Humulin R) 0 units SC ACCU-CHECK [facility] PRN Reason: Protocol Last Admin: 06/01/17 17:57 Dose: 4 units Magnesium Oxide (Mag-Ox) 400 mg PO DAILY [facility] Last Admin: 05/31/17 08:34 Dose: 400 mg Memantine (Namenda) 5 mg PO DAILY [facility] Last Admin: 06/01/17 08:32 Dose: 5 mg Paroxetine HCl (Paxil) 10 mg PO DAILY [facility] Last Admin: 06/01/17 13:12 Dose: 10 mg Repaglinide (Prandin) 2 mg PO TIDAC [facility] Last Admin: 06/01/17 17:59 Dose: 2 mg Sitagliptin Phosphate (Januvia) 25 mg PO DAILY [facility] Last Admin: 06/01/17 08:31 Dose: 25 mg Sodium Bicarbonate (Sodium Bicarbonate Tab) 650 mg PO Q8 [facility] Last Admin: 06/01/17 17:59 Dose: 650 mg Vitamin B Complex/Vit C/Folic Acid (Nephro-Evon) 1 tab PO DAILY [facility] Last Admin: 06/01/17 08:32 Dose: 1 tab - Labs Labs: 06/01/17 06:20 06/01/17 06:20 PT 11.7 Seconds (9.8-13.1) 05/08/17 23:16 INR 1.0 (0.9-1.2) 05/08/17 23:16 APTT 32.4 Seconds (25.6-37.1) 05/08/17 23:16
[2017-06-02 01:04] VITALS: O2SAT 97
[2017-06-02 06:34] LABS: HEMATOCRIT 34.1 % (34.0-47.0); MEAN CELL VOLUME 82.9 fl (81.0-99.0); MEAN CORPUSCULAR HEMOGLOBIN 25.6 pg (27.0-31.0); MEAN CORPUSCULAR HGB CONC 30.8 g/dL (33.0-37.0); RED CELL DISTRIBUTION WIDTH 15.7 % (11.5-14.5); WHITE BLOOD COUNT 13.3 K/uL (4.8-10.8)
[2017-06-02 06:41] LABS: CALCIUM 8.9 mg/dL (8.4-10.2); POTASSIUM 5.4 MMOL/L (3.6-5.0)
[2017-06-02] MEDS ORDERED: Sodium Chloride 0.9% 1,000 ML IV SCH (07:00)
[2017-06-02] MEDS ORDERED: Sodium Chloride 0.9% 500 ML IV ONE (07:09)
[2017-06-02 08:24] VITALS: RESP 18
[2017-06-02] MEDS: Insulin Regular 100 units/ml SC SCH ×3 (08:59→17:37)
[2017-06-02] MEDS ORDERED: Sod Polystyrene Sulf 15 gm/60 ml Susp PO ONE (09:17)
[2017-06-02 12:40] LABS: HEMATOCRIT 34.2 % (34.0-47.0); MEAN CELL VOLUME 83.2 fl (81.0-99.0); MEAN CORPUSCULAR HEMOGLOBIN 25.8 pg (27.0-31.0); RED CELL DISTRIBUTION WIDTH 16.6 % (11.5-14.5); WHITE BLOOD COUNT 13.8 K/uL (4.8-10.8)
[2017-06-02 12:56] LABS: CALCIUM 8.8 mg/dL (8.4-10.2); POTASSIUM 4.8 MMOL/L (3.6-5.0)
--- NOTE | 2017-06-02 13:11 | CP.PCM.DIS ---
Provider - Provider Date of Admission: 05/09/17 02:32 Attending physician: Jose Juan Boswell MD Consults: Nephro Dr Houston Urology Dr Serge Lugo Psych Dr Ardon Time Spent in preparation of Discharge (in minutes): 40 Diagnosis - Discharge Diagnosis (1) Acute on chronic renal failure Status: Acute Comment: Stable. Patient followed by Nephro while in the hosp. Creatinine back to baseline. F/U as outpatient (2) Asymptomatic bacteriuria Status: Acute Comment: Chronic. Ucx 05/29/17 neg. Will f/u Ucx from 06/01/17 (3) Uncontrolled diabetes mellitus Status: Chronic Comment: Stable. Treated with Oral hypoglucemics and ss while in the hosp. Patient needs insulin for better BS control, but she has not been using insulin at home as prescribed. Home meds restarted(check med list). Since she is noncompliant with her meds we recommends close f/u as outpatient for her DM with her PMD(Dr Boswell) and restart insulin as needed (4) Yeast UTI Status: Chronic Comment: Chronic. Treated with IV Diflucan x 7 days (5) Depression Status: Chronic Comment: REfused voluntary admission and was not accepted for involuntary admission. C/W home meds and Namenda 5 mg daily was started. (6) Hydronephrosis Status: Chronic Comment: S/P B/L JJ stent placement during admission. F/U as outpatient with Urology Hospital Course - Lab Results Lab Results: Micro Results 05/29/17 14:42 Urine,Clean Catch Urine Culture - Final No Growth (<1,000 CFU/ML) 05/15/17 13:40 Blood Blood Culture - Final NO GROWTH AFTER 5 DAYS 05/15/17 13:40 Blood Gram Stain - Final TEST NOT PERFORMED 05/14/17 08:35 Blood Blood Culture - Final NO GROWTH AFTER 5 DAYS 05/14/17 08:35 Blood Gram Stain - Final TEST NOT PERFORMED 05/13/17 12:00 Blood Blood Culture - Final NO GROWTH AFTER 5 DAYS 05/13/17 12:00 Blood Gram Stain - Final TEST NOT PERFORMED 05/13/17 12:00 Blood Blood Culture - Final NO GROWTH AFTER 5 DAYS 05/13/17 12:00 Blood Gram Stain - Final TEST NOT PERFORMED 05/13/17 05:00 Blood Blood Culture - Final NO GROWTH AFTER 5 DAYS 05/13/17 05:00 Blood Gram Stain - Final TEST NOT PERFORMED 05/16/17 18:58 Naris MRSA Culture (Admit) - Final MRSA NOT DETECTED 05/14/17 15:33 Urine,Adams Urine Culture - Final Yeast Species 05/13/17 12:00 Urine,Adams Urine Culture - Final Yeast Species 05/10/17 06:45 Urine,Catheterized Urine Culture - Final Yeast Species 05/10/17 08:32 Urine,Adams Urine Culture - Final No Growth (<1,000 CFU/ML) 05/08/17 22:40 Blood Blood Culture - Final Coagulase Neg Staphylococcus 05/08/17 22:40 Blood Gram Stain - Final 05/08/17 23:00 Blood S.aureus & Coag-Neg Staph PNA FISH - Final 05/08/17 23:00 Blood Blood Culture - Final Coagulase Neg Staphylococcus 05/08/17 23:00 Blood Gram Stain - Final 05/09/17 03:45 Naris MRSA Culture (Admit) - Final MRSA NOT DETECTED Most Recent Lab Values WBC 13.8 K/uL (4.8-10.8) H 06/02/17 12:35 RBC 4.11 Mil/uL (3.80-5.20) 06/02/17 12:35 Hgb 10.6 g/dL (12.0-16.0) L 06/02/17 12:35 Hct 34.2 % (34.0-47.0) 06/02/17 12:35 MCV 83.2 fl (81.0-99.0) 06/02/17 12:35 MCH 25.8 pg (27.0-31.0) L 06/02/17 12:35 MCHC 31.0 g/dL (33.0-37.0) L 06/02/17 12:35 RDW 16.6 % (11.5-14.5) H 06/02/17 12:35 Plt Count 574 K/uL (130-400) H 06/02/17 12:35 MPV 7.3 fl (7.2-11.7) 05/14/17 05:30 Neut % (Auto) 56.5 % (50.0-75.0) 05/14/17 05:30 Lymph % (Auto) 31.1 % (20.0-40.0) 05/14/17 05:30 [place] % (Auto) 8.0 % (0.0-10.0) 05/14/17 05:30 Eos % (Auto) 3.8 % (0.0-4.0) 05/14/17 05:30 Baso % (Auto) 0.6 % (0.0-2.0) 05/14/17 05:30 Neut # 5.3 K/uL (1.8-7.0) 05/14/17 05:30 Lymph # 2.9 K/uL (1.0-4.3) 05/14/17 05:30 [place] # 0.8 K/uL (0.0-0.8) 05/14/17 05:30 Eos # 0.4 K/uL (0.0-0.7) 05/14/17 05:30 Baso # 0.1 K/uL (0.0-0.2) 05/14/17 05:30 Neutrophils % (Manual) 86 % (42-75) H 05/08/17 23:16 Lymphocytes % (Manual) 8 % (20-50) L 05/08/17 23:16 Monocytes % (Manual) 6 % (0-10) 05/08/17 23:16 Platelet Estimate Slightly increased (NORMAL) H 05/08/17 23:16 Large Platelets Present 05/08/17 23:16 Anisocytosis (manual) Slight 05/08/17 23:16 Ovalocytes Slight 05/08/17 23:16 Stomatocytes Slight 05/08/17 23:16 Acanthocytes (Spur) Slight 05/08/17 23:16 PT 11.7 Seconds (9.8-13.1) 05/08/17 23:16 INR 1.0 (0.9-1.2) 05/08/17 23:16 APTT 32.4 Seconds (25.6-37.1) 05/08/17 23:16 pO2 35 mm/Hg (30-55) 05/08/17 21:44 VBG pH 7.11 (7.32-7.43) L* 05/08/17 21:44 VBG pCO2 24 mmHg (40-60) L 05/08/17 21:44 VBG HCO3 8.3 mmol/L 05/08/17 21:44 VBG Total CO2 8.3 mmol/L (22-28) L 05/08/17 21:44 VBG O2 Sat (Calc) 72.8 % (40-65) H 05/08/17 21:44 VBG Base Excess -20.3 mmol/L (0.0-2.0) L 05/08/17 21:44 VBG Potassium 7.0 mmol/L (3.6-5.2) H* 05/08/17 21:44 Sodium 120.0 mmol/L (132-148) L* 05/08/17 21:44 Chloride 91.0 mmol/L (98-107) L 05/08/17 21:44 Glucose 350 mg/dL (65-105) H 05/08/17 21:44 Lactate 1.8 mmol/L (0.7-2.1) 05/08/17 21:44 FiO2 21.0 % 05/08/17 21:44 Crit Value Called To Iwona cuellar 05/08/17 21:44 Crit Value Called By Ashok 05/08/17 21:44 Crit Value Read Back Y 05/08/17 21:44 Blood Gas Notified Time 67305/08/17 21:44 Sodium 138 mmol/l (132-148) 06/02/17 12:35 Potassium 4.8 MMOL/L (3.6-5.0) 06/02/17 12:35 Chloride 102 mmol/L (98-107) 06/02/17 12:35 Carbon Dioxide 24 mmol/L (22-30) 06/02/17 12:35 Anion Gap 17 (10-20) 06/02/17 12:35 BUN 43 mg/dl (7-17) H 06/02/17 12:35 Creatinine 2.9 mg/dl (0.7-1.2) H 06/02/17 12:35 Est GFR ( Amer) 19 06/02/17 12:35 Est GFR (Non-Af Amer) 16 06/02/17 12:35 POC Glucose (mg/dL) 275 mg/dL (65-110) H 06/02/17 10:44 Random Glucose 186 mg/dL (65-105) H 06/02/17 12:35 Serum Osmolality 317 mosm/kg (272-300) H 05/11/17 08:00 Uric Acid 6.6 mg/Dl (2.2-7.5) 05/26/17 06:10 Calcium 8.8 mg/dL (8.4-10.2) 06/02/17 12:35 Phosphorus 2.9 mg/dl (2.5-4.5) 05/26/17 06:10 Magnesium 2.5 MG/DL (1.6-2.3) H 06/01/17 08:43 Iron 12 ug/dL (37-170) L 05/16/17 04:20 TIBC 176 ug/dL (250-450) L 05/16/17 04:20 % Saturation 7 % (20-55) L 05/16/17 04:20 Erythropoietin 10.1 mIU/mL (2.6-18.5) 05/17/17 05:40 Ferritin 146.0 ng/Ml (11.1-264.0) 05/16/17 04:20 Total Bilirubin < 0.1 mg/dl (0.2-1.3) L 05/18/17 07:46 AST 11 U/L (14-36) L D 05/18/17 07:46 ALT 19 U/L (9-52) 05/18/17 07:46 Alkaline Phosphatase 105 U/L (38-126) 05/18/17 07:46 Total Creatine Kinase 23 U/L (30-135) L 05/11/17 08:00 Troponin I 0.1030 ng/mL (0.00-0.120) 05/08/17 23:16 Total Protein 5.2 G/DL (6.3-8.2) L 05/18/17 07:46 Albumin 2.1 g/dL (3.5-5.0) L 05/18/17 07:46 Globulin 3.0 gm/dL (2.2-3.9) 05/18/17 07:46 Albumin/Globulin Ratio 0.7 (1.0-2.1) L 05/18/17 07:46 Phospholipids 127 mg/dL (151-264) L 05/20/17 05:30 25-OH Vitamin D Total < 12.8 NG/ML (30.0-100.0) L 05/26/17 06:10 TSH 3rd Generation 1.46 mIU/ML (0.46-4.68) 05/10/17 04:45 PTH Intact Whole Molec 24 pg/mL (14-64) 05/26/17 06:10 Venous Blood Potassium 7.0 mmol/L (3.6-5.2) H* 05/08/17 21:44 Urine Color Yellow (YELLOW) 06/01/17 18:10 Urine Clarity Turbid (Clear) 06/01/17 18:10 Urine pH 6.0 (5.0-8.0) 06/01/17 18:10 Ur Specific [place] 1.010 (1.003-1.030) 06/01/17 18:10 Urine Protein 100 mg/dL (NEGATIVE) 06/01/17 18:10 Urine Glucose (UA) 100 mg/dL (Normal) 06/01/17 18:10 Urine Ketones Negative mg/dL (NEGATIVE) 06/01/17 18:10 Urine Blood Moderate (NEGATIVE) 06/01/17 18:10 Urine Nitrate Negative (NEGATIVE) 06/01/17 18:10 Urine Bilirubin Negative (NEGATIVE) 06/01/17 18:10 Urine Urobilinogen 0.2 mg/dL (0.2-1.0) 06/01/17 18:10 Ur Leukocyte Esterase Large Emilio/uL (Negative) 06/01/17 18:10 Urine RBC (Auto) 97 /hpf (0-3) H 06/01/17 18:10 Urine WBC Clumps (Auto) Many /hpf (NONE) H 06/01/17 18:10 Urine Microscopic WBC 1205 /hpf (0-5) H 06/01/17 18:10 Ur Squamous Epith Cells Cancelled 05/10/17 06:45 Ur Transition Epith Cell Cancelled 05/10/17 06:45 Ur Renal Epithelial Cell Cancelled 05/10/17 06:45 Calcium Carbonate Cryst Cancelled 05/10/17 06:45 Calcium Phos [place]enia (Auto) Cancelled 05/10/17 06:45 Calcium Oxalate Crystal Cancelled 05/10/17 06:45 Leucine Crystals Cancelled 05/10/17 06:45 Cystine Crystals Cancelled 05/10/17 06:45 Uric Acid Crystals Cancelled 05/10/17 06:45 Triple Phos Crystals Cancelled 05/10/17 06:45 Tyrosine Crystals Cancelled 05/10/17 06:45 Other Crystals Cancelled 05/10/17 06:45 Amorphous Sediment Cancelled 05/10/17 06:45 Urine Bacteria Many (<OCC) H 06/01/17 18:10 Epithelial Casts (Auto) Cancelled 05/10/17 06:45 Fatty Casts Cancelled 05/10/17 06:45 Hyaline Casts Cancelled 05/10/17 06:45 Granular Casts (Auto) Cancelled 05/10/17 06:45 Waxy Casts Cancelled 05/10/17 06:45 Broad Casts Cancelled 05/10/17 06:45 RBC Casts Cancelled 05/10/17 06:45 WBC Casts Cancelled 05/10/17 06:45 Other Casts Cancelled 05/10/17 06:45 Urine Trichomonas Cancelled 05/10/17 06:45 Ur Yeast w Hyphae Cancelled 05/10/17 06:45 Urine Yeast (Budding) Many /hpf (NEGATIVE) H 06/01/17 18:10 Urine Sperm (Auto) Cancelled 05/10/17 06:45 Ur Oval Fat Bodies Auto Cancelled 05/10/17 06:45 Urine Osmolality 334 mosm/kg (300-1000) 05/10/17 18:20 Ur Random Sodium 64 meq/L 05/10/17 23:36 Ur Random Potassium 13.0 mmol/L 05/10/17 23:36 Stool Occult Blood Negative (NEGATIVE) 05/10/17 17:30 Random Vancomycin 9.2 ug/mL 05/12/17 04:30 Urine Opiates Screen Negative (NEGATIVE) 05/10/17 23:36 Urine Methadone Screen Negative (NEGATIVE) 05/10/17 23:36 Ur Barbiturates Screen Negative (NEGATIVE) 05/10/17 23:36 Ur Phencyclidine Scrn Negative (NEGATIVE) 05/10/17 23:36 Ur Amphetamines Screen Negative (NEGATIVE) 05/10/17 23:36 U Benzodiazepines Scrn Negative (NEGATIVE) 05/10/17 23:36 U Oth Cocaine Metabols Negative (NEGATIVE) 05/10/17 23:36 U Cannabinoids Screen Negative (NEGATIVE) 05/10/17 23:36 Blood Type A POSITIVE 05/09/17 08:00 Antibody Screen Negative 05/09/17 08:00 BBK History Checked Patient has bt 05/09/17 08:00 - Hospital Course Hospital Course: 76 y/o F with PMhx of DM, CKD, Hydronephrosis, UTI, Depression presented to ED with AMS after she admitted She was found to have metabolic acidosis with anion gap and admitted to ICU. Patient improved slowly with hydration, Abx and home meds. SHe was evaluated by Nephro, Urology, ID and Psych. B/L JJ stents were placed, kidney function improved to baseline, blood sugar levels remained stable, as well as VS. Because of concerns about patient's depression, repeated hosp admission because of self neglect, Psych evaluated patient and recommended voluntary admission to psych hosp which patient refused. She was then evaluated for involuntary admission but didn't qualify medically. Physical Therapy recommended KATHY and patient also refused any type of services including home health care. Because patient is capable of making her own decisions and she is medically cleared and stable she is decided to DC home after arrangements were done with patient's son to receive her today. Discharge meds: Aspirin [Ecotrin] 81 mg PO DAILY Atorvastatin [Lipitor] 40 mg PO DAILY Metoprolol Tartrate [Lopressor] 12.5 mg PO Q12 Repaglinide [Prandin] 2 mg PO TIDWM Valsartan [Diovan] 80 mg PO DAILY PARoxetine [Paxil] 20 mg PO DAILY Multivit-Min/Iron/Folic/Lutein 1 tab PO DAILY [Centrum Silver Women Tablet] Sodium Bicarbonate Tab 650 mg PO DAILY Ferrous Sulfate [Feosol] 325 mg PO BID GlipiZIDE SR [Glucotrol XL] 10 mg PO ACBD@0730,1630 Insulin Lispro [Humalog Kwikpen 12 unit SQ AC Ergocalciferol [Drisdol 50,000 1 cap PO Q7D cap Sevelamer [Renagel] 800 mg PO TID tab Namenda 5 mg daily Januvia 25 mg daily Discharge Exam - Head Exam Head Exam: NORMAL INSPECTION - Eye Exam Eye Exam: PERRL - ENT Exam ENT Exam: Mucous Membranes Moist - Respiratory Exam Respiratory Exam: Clear to PA & Lateral, NORMAL BREATHING PATTERN. absent: Decreased Breath Sounds, Rales, Respiratory Distress - Cardiovascular Exam Cardiovascular Exam: REGULAR RHYTHM, +S1, +S2. absent: Gallop - GI/Abdominal Exam GI & Abdominal Exam: Normal Bowel Sounds. absent: Distended, Guarding, Rebound , Tenderness - Extremities Exam Extremities exam: normal capillary refill, pedal edema (+) - Neurological Exam Neurological exam: Alert, Oriented x3 - Psychiatric Exam Psychiatric exam: Depressed - Skin Skin Exam: Normal Color, Warm Discharge Plan - Discharge Medications Prescriptions: Atorvastatin [Lipitor] 40 mg PO DAILY #30 tab GlipiZIDE SR [Glucotrol XL] 10 mg PO ACBD@0730,1630 #60 tab Memantine [Namenda] 5 mg PO DAILY #30 tab PARoxetine [Paxil] 20 mg PO DAILY #30 tab Repaglinide [Prandin] 2 mg PO TIDWM #90 tab SITagliptin [Januvia] 25 mg PO DAILY #30 tab Valsartan [Diovan] 80 mg PO DAILY #30 tab - Follow Up Plan Condition: FAIR Disposition: HOME/ ROUTINE Patient education suggested?: Yes Instructions: Chronic Kidney Disease (DC), Renal Failure Diet (DC), Depression (DC), Diabetes Mellitus Type 2 in Adults (DC), Urethral Stent Placement (DC) Additional Instructions: F/U with Dr Boswell within 1 week F/U with Dr Valentine as outpatient for JJ stent F/U management F/U with Dr Houston for CKD Continue with home meds as instructed. Check medication list. Referrals: Irlanda Valentine MD [Medical Doctor] - Jose Juan Boswell MD [Family Provider] - Lili Houston MD [Staff Provider] -
[2017-06-02 15:56] VITALS: BP 101/67; PULSE 71; TEMP 98.6
--- NOTE | 2017-06-13 10:01 | OP ---
DATE: PREOPERATIVE DIAGNOSES: Bilateral hydronephrosis with renal failure. POSTOPERATIVE DIAGNOSES: Bilateral hydronephrosis with renal failure. PROCEDURE PERFORMED: Cystoscopy with bilateral retrograde pyelograms and insertion of bilateral double-J stents. DESCRIPTION OF PROCEDURE: Patient was placed in the operating room table in dorsal lithotomy position. The area of the groin was draped and prepped in a sterile manner. Using a #21 cystoscope, I entered into the bladder atraumatically. At this time, I cannulated the right ureteral orifice with an open-ended ureteral catheter. I proceeded to perform a retrograde pyelogram. There was noted to be hydroureteronephrosis, but no evidence of any calculus disease was noted. At this time, I inserted a sensor wire from the bladder into the renal pelvis. I went in without significant difficulty. Once this was in, I then inserted over that existing guidewire, a 6-[place]izen [place] multi-length double-J stent on the right side. I did the same procedure on the left, cannulated the orifice, did a retrograde pyelogram, identified the hydronephrosis in the renal pelvis, inserted a sensor wire, and over that wire, inserted again a double-J stent. Under fluoroscopy, both sensor wires placed into good position. Once they were seen in that good position, then all the instrumentation was removed. Then the patient was taken from the operating room in good condition. There was no blood loss during this procedure. Irlanda Valentine MD
== END 2017-06-02 19:52 | disposition home health service (06) | DRG 682 ==
LOC: H.ER 21:14 → H.ERHOLD 05-09 02:32 → H.ICU/CCU 05-09 03:50 → H.MEDSURG1 05-16 18:07
PROVIDERS: ADMIT Family Medicine; ATTEND Family Medicine
PROC: 3E0234Z Introduction of Serum, Toxoid and Vaccine into Muscle, Percutaneous Approach (ICD-10-PCS; 2017-05-10)
PROC: BT14ZZZ Fluoroscopy of Kidneys, Ureters and Bladder (ICD-10-PCS; 2017-05-10)
PROC: 0T788DZ Dilation of Bilateral Ureters with Intraluminal Device, Via Natural or Artificial Opening Endoscopic (ICD-10-PCS; principal; 2017-05-10 16:00)
PROC: 02HV33Z Insertion of Infusion Device into Superior Vena Cava, Percutaneous Approach (ICD-10-PCS; 2017-05-12)
PROC: B518ZZA Fluoroscopy of Superior Vena Cava, Guidance (ICD-10-PCS; 2017-05-12)
PROC: B548ZZA Ultrasonography of Superior Vena Cava, Guidance (ICD-10-PCS; 2017-05-12)
PROC: 3E04329 Introduction of Other Anti-infective into Central Vein, Percutaneous Approach (ICD-10-PCS; 2017-05-12)
DX: N17.9 Acute kidney failure, unspecified (principal); E11.10 Type 2 diabetes mellitus with ketoacidosis without coma; R78.81 Bacteremia; F33.2 Major depressive disorder, recurrent severe without psychotic features; E87.2 Acidosis; E87.1 Hypo-osmolality and hyponatremia; E11.22 Type 2 diabetes mellitus with diabetic chronic kidney disease; B96.1 Klebsiella pneumoniae [K. pneumoniae] as the cause of diseases classified elsewhere; B37.49 Other urogenital candidiasis; N13.39 Other hydronephrosis; E87.5 Hyperkalemia; D63.1 Anemia in chronic kidney disease; E11.65 Type 2 diabetes mellitus with hyperglycemia; I12.9 Hypertensive chronic kidney disease with stage 1 through stage 4 chronic kidney disease, or unspecified chronic kidney disease; N18.4 Chronic kidney disease, stage 4 (severe); F03.90 Unspecified dementia, unspecified severity, without behavioral disturbance, psychotic disturbance, mood disturbance, and anxiety; J44.9 Chronic obstructive pulmonary disease, unspecified; E78.00 Pure hypercholesterolemia, unspecified; L53.8 Other specified erythematous conditions; Z91.19 Patient's noncompliance with other medical treatment and regimen; Z91.14 Patient's other noncompliance with medication regimen; D50.9 Iron deficiency anemia, unspecified; B95.7 Other staphylococcus as the cause of diseases classified elsewhere; E86.0 Dehydration; D72.829 Elevated white blood cell count, unspecified; Z23 Encounter for immunization; Z74.01 Bed confinement status; M19.90 Unspecified osteoarthritis, unspecified site; F41.9 Anxiety disorder, unspecified; Z87.440 Personal history of urinary (tract) infections; Z87.01 Personal history of pneumonia (recurrent); Z79.4 Long term (current) use of insulin; Z79.82 Long term (current) use of aspirin

== ENCOUNTER 2017-09-14 14:57 | Inpatient (IN) | payer MEDICARE ==
[2017-09-14 14:57] VITALS: BMI 32.5
--- NOTE | 2017-09-14 15:56 | ED PDOC ---
HPI: Abdomen Time Seen by Provider: 09/14/17 15:31 Chief Complaint (Nursing): Abdominal Pain Chief Complaint (Provider): Abd pain History Per: Patient History/Exam Limitations: no limitations Onset/Duration Of Symptoms: Days (1 week) Outside of [place] travel?: No Current Symptoms Are (Timing): Still Present Additional Complaint(s): Pt. with weakness all over. Also with nausea, vomit, diarrhea, abd pain. No gross blood in diarrhea or vomit. No chest pain, headaches, dizziness. No dyspnea. No leg pain. Has not taken her meds for several days. Past Medical History Vital Signs: Last Vital Signs Temp 96.0 F L 09/14/17 15:05 Pulse 86 09/14/17 15:05 Resp 24 09/14/17 15:05 BP 86/43 L 09/14/17 15:05 Pulse Ox 99 09/14/17 16:02 - Medical History PMH: Anxiety, Arthritis, COPD, Depression, Diabetes (type II), HTN, Hypercholesterolemia, Pneumonia, Chronic Kidney Disease Denies: HIV - Surgical History Surgical History: Tonsillectomy - Family History Family History: States: Unknown Family Hx - Living Arrangements Living Arrangements: With Family - Social History Current smoker - smoking cessation education provided: No Alcohol: None Drugs: Denies - Home Medications Home Medications: Ambulatory Orders Medication Instructions Recorded Aspirin [Ecotrin] 81 mg PO DAILY 09/14/17 Atorvastatin [Lipitor] 40 mg PO QPM 09/14/17 Ferrous Sulfate [Feosol] 325 mg PO DAILY 09/14/17 Glipizide [Glipizide ER] 10 mg PO BID 09/14/17 Memantine [Namenda] 5 mg PO DAILY 09/14/17 Multivitamin [Daily Evon] 1 tab PO DAILY 09/14/17 Repaglinide [Prandin] 2 mg PO TID 09/14/17 SITagliptin [Januvia] 25 mg PO DAILY 09/14/17 Valsartan [Diovan] 80 mg PO DAILY 09/14/17 - Allergies Allergies/Adverse Reactions: Allergies Allergy/AdvReac Type Severity Reaction Status Date / Time No Known Allergies Allergy Verified 05/08/17 21:15 Review of Systems ROS Statement: Except As Marked, All Systems Reviewed And Found Negative Constitutional: Positive for: Weakness Gastrointestinal: Positive for: Nausea, Vomiting, Abdominal Pain, Diarrhea Neurological: Positive for: Weakness Physical Exam - Reviewed Nursing Documentation Reviewed: Yes Vital Signs Reviewed: Yes - Physical Exam Appears: Positive for: Uncomfortable Head Exam: Positive for: ATRAUMATIC, NORMAL INSPECTION, NORMOCEPHALIC Skin: Positive for: Normal Color, Warm, DRY Eye Exam: Positive for: EOMI, Normal appearance, PERRL ENT: Positive for: Normal ENT Inspection Neck: Positive for: Normal, Painless ROM Cardiovascular/Chest: Positive for: Regular Rate, Rhythm Respiratory: Positive for: CNT, Normal Breath Sounds Gastrointestinal/Abdominal: Positive for: Bowel Sounds, Soft, Tenderness ( diffuse, mild) Back: Positive for: Normal Inspection. Negative for: L CVA Tenderness, R CVA Tenderness Extremity: Positive for: Normal ROM. Negative for: Tenderness, Pedal Edema Neurologic/Psych: Positive for: Alert, Oriented. Negative for: Motor/Sensory Deficits, Aphasia - Laboratory Results Result Diagrams: 09/14/17 17:01 09/14/17 17:01 Interpretation Of Abn Labs: 22 wbc; CO2 less then 5, 8.5 K, BUN/CR sig elevated ; 11.4 phos - ECG ECG: Positive for: Interpreted By Me, Viewed By Me ECG Rhythm: Positive for: ST/T Changes Interpretation Of Abn EKG: repeat EKG similar to first after tx for high K O2 Sat by Pulse Oximetry: 99 Pulse Ox Interpretation: Normal - Radiology X-Ray: Read By Radiologist X-Ray Interpretation: No Acute Disease - Progress ED Course And Treament: 1818: Stable. Alert. Emergent central line put in. Access done in groin due to emergency. Pt. aware and gave verbal consent. After stabilization, pt. signed consent for central line. Will hold Ct, pt. needs further stabilization. 1830: Spoke with [facility] resident. Will admit ICU. Spoke with Dr. Judge. Will admit ICU. Wants Na bicarb 80 units in 1 L of D5 1/2NS. Will give antibiotics for GI symptoms. Nephro paged. - Critical Care Total Time (In Min): 60 Documented Critical Care: Time excludes all time spent performint seperately billable procedures Procedures - Central Line Central Line Lumen: triple Central Line Procedure: betadine prep, sterile drapes applied, sterile dressing applied Central Line Postion: femoral (L) Anesthesia: Lidocaine cc's of anesthesia: 3 Complications: none Central Line Post Position: good blood return Progress: Emergent procedure for further access and hyper K tx. Pt. signed consent after stabilization. Verbal consent obtained initially. Disposition - Clinical Impression Clinical Impression: Acute renal failure, Hyperkalemia, Gastrointestinal infection, Severe sepsis - Patient ED Disposition Is Patient to be Admitted: Yes Counseled Patient/Family Regarding: Studies Performed, Diagnosis - Disposition Disposition Time: 18:36 Condition: SERIOUS - Pt Status Changed To: Hospital Disposition Of: Inpatient - Admit Certification Admit to Inpatient:: After my assessment, the patient will require hospitalization for at least two midnights. This is because of the severity of symptoms shown, intensity of services needed, and/or the medical risk in this patient being treated as an outpatient. - POA Present On Arrival: None
[2017-09-14] MEDS ORDERED: Iohexol 240 (50 ml) PO ONE (15:57)
[2017-09-14 17:13] LABS: BASO % 0.1 % (0.0-2.0); HEMOGLOBIN 13.8 g/dL (12.0-16.0); LYMPH # 0.4 K/uL (1.0-4.3); LYMPH % 1.9 % (20.0-40.0); MEAN CELL VOLUME 87.3 fl (81.0-99.0); MEAN CORPUSCULAR HEMOGLOBIN 27.3 pg (27.0-31.0); MEAN CORPUSCULAR HGB CONC 31.3 g/dL (33.0-37.0); MONO # 0.8 K/uL (0.0-0.8); MONO % 3.6 % (0.0-10.0); NEUT # 20.7 K/uL (1.8-7.0); NEUT % 94.4 % (50.0-75.0); PLATELET COUNT 418 K/uL (130-400); RBC 5.06 Mil/uL (3.80-5.20); RED CELL DISTRIBUTION WIDTH 14.3 % (11.5-14.5)
[2017-09-14] MEDS ORDERED: Iohexol 240 (50 ml) ONE (17:13)
[2017-09-14] MEDS: Sodium Chloride 0.9% 1,000 ML IV SCH ×2 (17:17→18:28)
[2017-09-14 17:23] LABS: URINE AMORPHOUS SEDIMENT RARE /ul (<OCC); URINE BACTERIA RARE (<OCC); URINE BILIRUBIN NEGATIVE (NEGATIVE); URINE BLOOD MODERATE (NEGATIVE); URINE CLARITY TURBID (Clear); URINE COLOR AMBER (YELLOW); URINE GLUCOSE (UA) NEG (Normal); URINE LEUKOCYTE ESTERASE LARGE Leu/uL (Negative); URINE PROTEIN >=500 mg/dL (NEGATIVE); URINE UROBILINOGEN 0.2-1.0 mg/dL (0.2-1.0)
--- NOTE | 2017-09-14 17:25 | RAD ---
HISTORY: Sepsis Patient COMPARISON: 05/08/2017 FINDINGS: LUNGS: No active pulmonary disease. PLEURA: No significant pleural effusion identified, no pneumothorax apparent. CARDIOVASCULAR: No radiographic findings to suggest acute or significant cardiovascular disease. OSSEOUS STRUCTURES: No significant abnormalities. VISUALIZED UPPER ABDOMEN: Normal. OTHER FINDINGS: None. IMPRESSION: No active disease. No significant interval change compared to the prior examination(s).
[2017-09-14] MEDS ORDERED: Albuterol 0.083% Inhal Sol (2.5 mg/3 mL) UD INH STA ×2 (17:30→18:23)
[2017-09-14] MEDS ORDERED: Dextrose 50% SYRINGE Inj (50 ml) IVP ONE (17:30)
[2017-09-14] MEDS ORDERED: Insulin Regular 100 units/ml IV STA (17:31)
[2017-09-14] MEDS ORDERED: Insulin Regular 100 units/ml ONE (17:31)
[2017-09-14] MEDS ORDERED: Sodium Bicarbonate 7.5% (0.9 MEQ/ML) 50ML INJ IV ONE (17:31)
[2017-09-14 17:32] LABS: ALBUMIN 4.1 g/dL (3.5-5.0); ALT/SGPT 23 U/L (9-52); AST/SGOT 33 U/L (14-36); CALCIUM 9.5 mg/dL (8.4-10.2)
[2017-09-14] MEDS ORDERED: Calcium Gluconate 4.65 mEq/10 ml Inj IV ONE ×2 (17:32)
[2017-09-14] MEDS ORDERED: Sod Polystyrene Sulf 15 gm/60 ml Susp ONE (17:32)
[2017-09-14 17:33] LABS: PARTIAL THROMBOPLASTIN TIME 31.5 Seconds (25.6-37.1)
[2017-09-14 17:45] LABS: BLOOD UREA NITROGEN 132 mg/dl (7-17)
[2017-09-14] MEDS ORDERED: Calcium Gluconate 4.6 MEQ in Sodium Chloride 0.9% 100 ML IV ONE (17:45)
[2017-09-14 17:46] LABS: GFR AFRICAN-AMERICAN 4
[2017-09-14 17:47] LABS: GFR NON-AFRICAN AMERICAN 4
[2017-09-14] MEDS ORDERED: Albuterol 0.083% Inhal Sol (2.5 mg/3 mL) UD ONE (18:02)
[2017-09-14] MEDS ORDERED: Sodium Chloride 0.9% 1,000 ML IV STA (18:16)
[2017-09-14] MEDS ORDERED: Ciprofloxacin 400mg/200ml D5W 400 MG/200 ML BAG IV STA (18:25)
[2017-09-14] MEDS ORDERED: metroNIDAZOLE 500mg/100ml NS 100 ML IV STA (18:25)
[2017-09-14] MEDS ORDERED: Sodium Bicarbonate 8.4% 100 MEQ in Dextrose 5%/0.45% NS 1,000 ML IV ONE (18:30)
[2017-09-14 18:49] LABS: ANISOCYTOSIS SLIGHT; BANDS 3 % (0-2); LYMPHOCYTE 5 % (20-50); MONOCYTE 3 % (0-10); NEUTROPHIL 88 % (42-75); PLATELET ESTIMATE NORMAL (NORMAL); REACTIVE LYMPHOCYTES 1 % (0-0); TOTAL CELLS COUNTED 100
[2017-09-14 18:50] LABS: BURR CELLS SLIGHT; TOXIC GRANULATION PRESENT
[2017-09-14 19:04] LABS: VENOUS BLOOD GAS BASE EXCESS -25.6 mmol/L (0.0-2.0); VENOUS BLOOD GAS PCO2 18 mmHg (40-60); VENOUS BLOOD GAS PO2 37 mm/Hg (30-55); VENOUS BLOOD PH 6.99 (7.32-7.43)
--- NOTE | 2017-09-14 19:06 | CP.PCM.HP ---
<Osei Fierro - Last Filed: 09/14/17 22:58> History of Present Illness - History of Present Illness History of Present Illness: "My stomach hurts and derek been puking and having diarrhea for the past 1.5 week " 77 y/o female with PMHx uncontrolled IDDM2, HTN, CKD4, Hydronephrosis s/p b/l stenting, depression admitted for severe sepsis and acidosis, as well as acute on chronic renal injury. Pt states she has been having abdominal pain, which started between her epigastrium and periumbilical region and radiates down for the past week and a half. Prior to episode beginning, she reports being in a state of good health. She reports the pain is 6/10 and constant. It radiates down to her suprapubic area. Associated with generalized weakness, "many" episodes of NBNB emesis and copious diarrhea the past week. Last episode of emesis yesterday, but diarrhea has been unrelenting. Pain is aggravated during defecation. No alleviating factors. Pt reports there was a sudden increase in the mid-abdominal pain today, associated with chills. Her sudden increase in her pain caused her son to dial for EMS to bring her to the hospital for evaluation. Upon further interviewing, she reports not taking her prescribed medications for over the past 2 days as "they fell behind her bed and she couldnt reach them". Denies sick contacts, change in diet, inciting events, CP/ SOB/palpitations, bloody/coffee ground emesis, urinary symptoms, numbness/ tingling, hematuria, urinary sx, melena, hematochezia. PMD: Osmany, pt denies any follow up since prior d/c, Ashely (Uro), Rosemarie ( nephro) PMHx: IDDM2, CKD4, HTN, Depression, Iron def anemia, hydronephrosis s/p b/l renal stenting, Klebsiella UTI Meds (as of prior discharge): Aspirin [Ecotrin]: 81 mg PO DAILY Atorvastatin [Lipitor]: 40 mg PO DAILY Metoprolol Tartrate [Lopressor]: 12.5 mg PO Q12 Repaglinide [Prandin]: 2 mg PO TIDWM Valsartan [Diovan]: 80 mg PO DAILY PARoxetine [Paxil]: 20 mg PO DAILY Multivit-Min/Iron/Folic/Lutein 1 tab PO DAILY [Centrum Silver Women Tablet] Sodium Bicarbonate Tab: 650 mg PO DAILY Ferrous Sulfate [Feosol]: 325 mg PO BID GlipiZIDE SR [Glucotrol XL]: 10 mg PO ACBD@0730,1630 Insulin Lispro [Humalog Kwikpen]: 12 unit SQ AC Ergocalciferol [Drisdol 50,000]: 1 cap PO Q7D cap Sevelamer [Renagel]: 800 mg PO TID tab Namenda: 5 mg daily Januvia: 25 mg daily Psurghx: B/L Renal stenting (05/2017), tonsillectomy, left wrist ORIF ALL: NKDA LMP: >20 years ago SocialHx: denies ETOH/tobacco/drug abuse, lives at home in [place] with son FamilyHx: unknown family hx Next of Kin: son, Ede Reza, [phone] Code Status: Full code ER COURSE: Vitals on presentation: T: 96.0 F, BP: 86/43, HR: 86, RR: 24, POX 99% RA Labs CBC: leukocytosis with left shift CMP: hyperkalemia, acidosis, azotemia Coags: wnl Lipase: 1120 Troponin: 0.1940 VBG: pH 6.99, lactate: 2.1 UA: large LE, protein >500, RBCs, WBCs Ma.1 Phos: 11.6 Serum Alc: wnl Imaging: CXR EKG Meds: 1 L NS, 1 L D5 w Bicarb Cipro 400mg IV Calcium gluconate, duo neb x2, insulin 5 units Bicarb 89.2 meq Present on Admission - Present on Admission Any Indicators Present on Admission: Yes History of DVT/PE: No History of Uncontrolled Diabetes: Yes Urinary Catheter: No Review of Systems - Constitutional Constitutional: Chills, Fatigue, Weakness. absent: As Per HPI, Anorexia, Daytime Sleepiness, Excessive Sweating, Fever, Frequent Falls, Headache, Increased Appetite, Lethargy, Malaise, Night Sweats, Snoring, Sleep Apnea, Weight Gain, Weight Loss, Other - EENT Eyes: absent: As Per HPI, Blind Spots, Blurred Vision, Change in Vision, Decreased Night Vision, Diplopia, Discharge, Dry Eye, Exophthalmos, Floaters, Irritation, Itchy Eyes, Loss of Peripheral Vision, Pain, Photophobia, Requires Corrective Lenses, Sees Flashes, Spots in Vision, Tunnel Vision, Other Visual Disturbances, Loss of Vision, Other Ears: absent: As Per HPI, Decreased Hearing, Ear Discharge, Ear Pain, Tinnitus, Abnormal Hearing, Disequilibrium, Dizziness, Other Nose/Mouth/Throat: absent: As Per HPI, Epistaxis, Nasal Congestion, Nasal Discharge, Nasal Obstruction, Nasal Trauma, Nose Pain, Post Nasal Drip, Sinus Pain, Sinus Pressure, Bleeding Gums, Change in Voice, Dental Pain, Dry Mouth, Dysphagia, Halitosis, Hoarsness, Lip Swelling, Mouth Lesions, Mouth Pain, Odynophagia, Sore Throat, Throat Swelling, Tongue Swelling, Facial Pain, Neck Pain, Neck Mass, Other - Cardiovascular Cardiovascular: absent: As Per HPI, Acrocyanosis, Chest Pain, Chest Pain at Rest , Chest Pain with Activity, Claudication, Diaphoresis, Dyspnea, Dyspnea on Exertion, Edema, Irregular Heart Rhythm, Pain Radiating to Arm/Neck/Jaw, Leg Edema, Leg Ulcers, Lightheadedness, Orthopnea, Palpitations, Paroxysmal Nocturnal Dyspnea, Pedal Edema, Radiating Pain, Rapid Heart Rate, Slow Heart Rate, Syncope, Other - Respiratory Respiratory: absent: As Per HPI, Cough, Dyspnea, Hemoptysis, Dyspnea on Exertion , Wheezing, Snoring, Stridor, Pain on Inspiration, Chest Congestion, Excessive Mucous Production, Change in Mucous Color, Pain with Coughing, Other - Gastrointestinal Gastrointestinal: Abdominal Pain, Diarrhea, Nausea, Vomiting. absent: As Per HPI, Belching, Bloating, Change in Bowel Habits, Change in Stool Character, Coffee Ground Emesis, Constipation, Cramping, Dyspepsia, Dysphagia, Early Satiety, Excessive Flatus, Fecal Incontinence, Heartburn, Hematemesis, Hematochezia, Loose Stools, Melena, Odynophagia, Temesmus, Other - Genitourinary Genitourinary: absent: As Per HPI, Change in Urinary Stream, Difficulty Urinating, Dysuria, Flank Pain, Hematuria, Pyuria, Nocturia, Urinary Incontinence, Urinary Frequency, Urinary Hesitance, Urinary Urgency, Voiding Freq/Small Amts, Freq UTI, Hx Renal/Bladder Calculi, Hx /Renal Surgery, Bladder Distension, Other - Musculoskeletal Musculoskeletal: Muscle Weakness. absent: As Per HPI, Abnormal Gait, Arthralgias, Atrophy, Back Pain, Deformity, Joint Swelling, Limited Range of Motion, Loss of Height, Muscle Cramps, Myalgias, Neck Pain, Numbness, Radiating Pain into Limb, Stiffness, Tingling, Other - Neurological Neurological: Dizziness. absent: As Per HPI, Abnormal Gait, Abnormal Hearing, Abnormal Movements, Abnormal Speech, Behavioral Changes, Burning Sensations, Confusion, Convulsions, Disequilibrium, Numbness, Focal Weakness, Frequent Falls , Headaches, Lack of Coordination, Loss of Vision, Memory Loss, Paresthesias, Radicular Pain, Restless Legs, Sensory Deficit, Syncope, Tingling, Tremor, Vertigo, Weakness, Other Visual Disturbances, Other - Psychiatric Psychiatric: absent: As Per HPI, Abnormal Sleep Pattern, Anhedonia, Anxiety, Auditory Hallucinations, Behavioral Changes, Change in Appetite, Change in Libido, Confusion, Depression, Difficulty Concentrating, Hallucinations, Homicidal Ideation, Hopelessness, Irritability, Memory Loss, Mood Swings, Panic Attacks, Paranoia, Suicidal Ideation, Visual Hallucinations, Tactile Hallucinations, Other Past Patient History - Infectious Disease Hx of Infectious Diseases: None - Past Medical History & Family History Past Medical History?: Yes - Past Social History Smoking Status: Never Smoked Alcohol: None Drugs: Denies Home Situation {Lives}: With Family - CARDIAC Hx Hypercholesterolemia: Yes Hx Hypertension: Yes - PULMONARY Hx Chronic Obstructive Pulmonary Disease (COPD): Yes Hx Pneumonia: Yes - NEUROLOGICAL Hx Neurological Disorder: No - HEENT Hx HEENT Problems: Yes - RENAL Hx Chronic Kidney Disease: Yes - ENDOCRINE/METABOLIC Hx Endocrine Disorders: Yes - HEMATOLOGICAL/ONCOLOGICAL Hx Human Immunodeficiency Virus (HIV): No - INTEGUMENTARY Hx Dermatological Problems: No - MUSCULOSKELETAL/RHEUMATOLOGICAL Hx Arthritis: Yes - GASTROINTESTINAL Hx Gastrointestinal Disorders: No - GENITOURINARY/GYNECOLOGICAL Hx Genitourinary Disorders: No - PSYCHIATRIC Hx Anxiety: Yes Hx Depression: Yes - SURGICAL HISTORY Hx Tonsillectomy: Yes - ANESTHESIA Hx Anesthesia: No Hx Anesthesia Reactions: No Hx Malignant Hyperthermia: No Meds Allergies/Adverse Reactions: Allergies Allergy/AdvReac Type Severity Reaction Status Date / Time No Known Allergies Allergy Verified 05/08/17 21:15 Physical Exam - Constitutional Appears: Non-toxic, No Acute Distress, Unkempt - Head Exam Head Exam: ATRAUMATIC, NORMOCEPHALIC - Eye Exam Eye Exam: EOMI, PERRL. absent: Conjunctival injection, Nystagmus, Scleral icterus Pupil Exam: NORMAL ACCOMODATION, PERRL - ENT Exam ENT Exam: Mucous Membranes Dry. absent: Mucous Membranes Moist, Normal Exam - Neck Exam Neck exam: Positive for: Full Rom, Normal Inspection. Negative for: Lymphadenopathy, Tenderness, Thyromegaly - Respiratory Exam Respiratory Exam: Clear to Auscultation Bilateral, NORMAL BREATHING PATTERN. absent: Rales, Rhonchi, Wheezes - Cardiovascular Exam Cardiovascular Exam: REGULAR RHYTHM, RRR, +S1, +S2, Systolic Murmur. absent: Tachycardia, Diastolic murmur, Gallop, Irregular Rhythm, JVD, Rubs - GI/Abdominal Exam GI & Abdominal Exam: Guarding (voluntary guarding ), Normal Bowel Sounds, Soft, Tenderness. absent: Firm, Organomegaly, Rebound, Rigid - Extremities Exam Extremities exam: Positive for: normal capillary refill, normal inspection, pedal pulses present. Negative for: calf tenderness, pedal edema - Back Exam Back exam: NORMAL INSPECTION. absent: CVA tenderness (L), CVA tenderness (R) - Neurological Exam Neurological exam: Alert, CN II-XII Intact, Oriented x3, Reflexes Normal - Psychiatric Exam Psychiatric exam: Normal Affect, Normal Mood - Skin Skin Exam: Dry, Intact, Normal Color, Warm Additional comments: diffuse seborrheic keratosis Results - Vital Signs Recent Vital Signs: Last Vital Signs Temp 96.0 F L 09/14/17 15:05 Pulse 101 H 09/14/17 18:00 Resp 19 09/14/17 18:00 BP 121/58 L 09/14/17 18:00 Pulse Ox 99 09/14/17 18:37 - Labs Result Diagrams: 09/14/17 17:01 09/14/17 19:05 Labs: Laboratory Results - last 24 hr 09/14/17 09/14/17 09/14/17 17:00 17:01 17:01 WBC 22.0 H D RBC 5.06 Hgb 13.8 D Hct 44.2 MCV 87.3 D MCH 27.3 MCHC 31.3 L RDW 14.3 Plt Count 418 H D MPV 8.0 Neut % (Auto) 94.4 H Lymph % (Auto) 1.9 L [place] % (Auto) 3.6 Eos % (Auto) 0.0 Baso % (Auto) 0.1 Neut # (Auto) 20.7 H Lymph # (Auto) 0.4 L [place] # (Auto) 0.8 Eos # (Auto) 0.0 Baso # (Auto) 0.0 Neutrophils % (Manual) 88 H Band Neutrophils % 3 H Lymphocytes % (Manual) 5 L Reactive Lymphs % 1 H Monocytes % (Manual) 3 Toxic Granulation Present Platelet Estimate Normal Anisocytosis (manual) Slight Colette Cells Slight PT INR APTT pO2 37 VBG pH 6.99 L* VBG pCO2 18 L* VBG HCO3 4.2 VBG Total CO2 4.9 L VBG O2 Sat (Calc) 76.7 H VBG Base Excess -25.6 L VBG Potassium 8.7 H* Sodium 124.0 L 132 Chloride 97.0 L 99 Glucose 269 H Lactate 2.1 FiO2 21.0 Crit Value Called To Dr rosalia masters Crit Value Called By Rt Crit Value Read Back Y Blood Gas Notified Time 1716 Potassium 8.5 H* D Carbon Dioxide < 5 L* D Anion Gap 37 H BUN 132 H* D Creatinine 10.3 H* D Est GFR ( Amer) 4 Est GFR (Non-Af Amer) 4 Random Glucose 250 H Calcium 9.5 Phosphorus 11.4 H Magnesium 3.1 H Total Bilirubin 0.4 AST 33 ALT 23 Alkaline Phosphatase 153 H D Troponin I 0.1940 H* Total Protein 8.0 Albumin 4.1 Globulin 3.9 Albumin/Globulin Ratio 1.0 Venous Blood Potassium 8.7 H* Urine Color Urine Clarity Urine pH Ur Specific [place] Urine Protein Urine Glucose (UA) Urine Ketones Urine Blood Urine Nitrate Urine Bilirubin Urine Urobilinogen Ur Leukocyte Esterase Urine RBC (Auto) Urine Microscopic WBC Amorphous Sediment Urine Bacteria 09/14/17 09/14/17 17:01 17:01 WBC RBC Hgb Hct MCV MCH MCHC RDW Plt Count MPV Neut % (Auto) Lymph % (Auto) [place] % (Auto) Eos % (Auto) Baso % (Auto) Neut # (Auto) Lymph # (Auto) [place] # (Auto) Eos # (Auto) Baso # (Auto) Neutrophils % (Manual) Band Neutrophils % Lymphocytes % (Manual) Reactive Lymphs % Monocytes % (Manual) Toxic Granulation Platelet Estimate Anisocytosis (manual) Colette Cells PT 11.0 INR 1.0 APTT 31.5 pO2 VBG pH VBG pCO2 VBG HCO3 VBG Total CO2 VBG O2 Sat (Calc) VBG Base Excess VBG Potassium Sodium Chloride Glucose Lactate FiO2 Crit Value Called To Crit Value Called By Crit Value Read Back Blood Gas Notified Time Potassium Carbon Dioxide Anion Gap BUN Creatinine Est GFR ( Amer) Est GFR (Non-Af Amer) Random Glucose Calcium Phosphorus Magnesium Total Bilirubin AST ALT Alkaline Phosphatase Troponin I Total Protein Albumin Globulin Albumin/Globulin Ratio Venous Blood Potassium Urine Color Maya Urine Clarity Turbid Urine pH 6.0 Ur Specific [place] 1.013 Urine Protein >=500 Urine Glucose (UA) Neg Urine Ketones Trace Urine Blood Moderate Urine Nitrate Negative Urine Bilirubin Negative Urine Urobilinogen 0.2-1.0 Ur Leukocyte Esterase Large Urine RBC (Auto) 5 H Urine Microscopic WBC 10 H Amorphous Sediment Rare H Urine Bacteria Rare Assessment & Plan - Assessment and Plan (Free Text) Assessment: 77 y/o female with an extensive PMHx and history of poor adherence admitted for combination of severe sepsis, acute pancreatitis, metabolic acidosis, severe electrolyte derangement, and acute on chronic kidney injury. Plan: 1) Severe Sepsis -gastroenteritis? pancreatitis? UTI? -WBC: 22.0 on presentation -hypotensive/hypothermic/tachypneic -IV fluids, NS @ 100mls/hr -procalcitonin pending -empiric abx: IV Cipro 400mg Q12H/Flagyl 500mg Q8H -repeat labs in AM pending -blood/urine/stool cultures: pending -C diff: pending -ID consult pending 2) Metabolic Acidosis -pH: 6.99, repeat @ 21:00 7.09 -CO2: <5, then 6 on repeat -s/p 89.2 meq bicarb in ED -Lacate: 2.1 -c/w IV fluid hydration as ordered -repeat labs in AM pending 3) Acute Pancreatitis -Lipase: 1120 -NPO -IV fluid hydration -FOBT negative -Abd CT pending 4) Acute on Chronic Kidney Injury -BUN/Cr on presentation: 132/10.3 -BUN/Cr upon D/C in 05/2017: 43/2.9 -Urine lytes/urine osmolality: pending -fluid therapy as ordered -hx of b/l renal stenting performed in 05/2017 -abd CT pending, r/o obstructive cause of injury -nephrology consult with Dr. Houston, awaiting recommendations 5) Hyperkalemia -8.5 on presentation -s/p Duo-nebs x 2 -s/p 5 units regular insulin -s/p calcium gluconate 4.6 meq x1 -repeat in ED: 5.9 -Lispro SC Q6H plus correction scale 6) Leukocytosis -22.0 on presentation -w/ left shift -combination of abx therapy and fluids -repeat CBC in AM pending 7) IDDM2 with Hyperglycemia -s/p 5 units Regular insulin in ED -Lispro correction scale, Q6H -accuchecks ACHS -f/u labs in AM -hemoglobin A1C pending 8) Elevated Troponin -likely 2/2 to NINA -0.1940 on presentation -cardiac monitoring -trend Q6Hx3 values -repeat EKG in AM 9) Urinary Tract Infection -large leukocyte esterase on UA, as well as WBCs -abx therapy as ordered -urine culture pending 10) Hypertension -chronic -hypotensive on presentation -home meds held -monitor 11) Diet -NPO 12) Prophylactic Measures -Protonix 40mg IV QD -Heparin 5000 units Q12H 13) Code Status -Full Code <Jose Juan Boswell - Last Filed: 09/15/17 06:59> Results - Vital Signs Recent Vital Signs: Last Vital Signs Temp 98.5 F 09/15/17 04:00 Pulse 93 H 09/15/17 06:00 Resp 15 09/15/17 06:00 BP 115/75 09/15/17 06:00 Pulse Ox 100 09/15/17 06:00 - Labs Result Diagrams: 09/15/17 04:20 09/15/17 04:20 Labs: Laboratory Results - last 24 hr 09/14/17 09/14/17 09/14/17 17:00 17:01 17:01 WBC 22.0 H D RBC 5.06 Hgb 13.8 D Hct 44.2 MCV 87.3 D MCH 27.3 MCHC 31.3 L RDW 14.3 Plt Count 418 H D MPV 8.0 Neut % (Auto) 94.4 H Lymph % (Auto) 1.9 L [place] % (Auto) 3.6 Eos % (Auto) 0.0 Baso % (Auto) 0.1 Neut # (Auto) 20.7 H Lymph # (Auto) 0.4 L [place] # (Auto) 0.8 Eos # (Auto) 0.0 Baso # (Auto) 0.0 Neutrophils % (Manual) 88 H Band Neutrophils % 3 H Lymphocytes % (Manual) 5 L Reactive Lymphs % 1 H Monocytes % (Manual) 3 Toxic Granulation Present Platelet Estimate Normal Anisocytosis (manual) Slight Colette Cells Slight PT INR APTT pO2 37 VBG pH 6.99 L* VBG pCO2 18 L* VBG HCO3 4.2 VBG Total CO2 4.9 L VBG O2 Sat (Calc) 76.7 H VBG Base Excess -25.6 L VBG Potassium 8.7 H* Sodium 124.0 L 132 Chloride 97.0 L 99 Glucose 269 H Lactate 2.1 FiO2 21.0 Crit Value Called To Dr rosalia masters Crit Value Called By Rt Crit Value Read Back Y Blood Gas Notified Time 1716 Potassium 8.5 H* D Carbon Dioxide < 5 L* D Anion Gap 37 H BUN 132 H* D Creatinine 10.3 H* D Est GFR ( Amer) 4 Est GFR (Non-Af Amer) 4 POC Glucose (mg/dL) Random Glucose 250 H Lactic Acid Calcium 9.5 Phosphorus 11.4 H Magnesium 3.1 H Total Bilirubin 0.4 AST 33 ALT 23 Alkaline Phosphatase 153 H D Troponin I 0.1940 H* Total Protein 8.0 Albumin 4.1 Globulin 3.9 Albumin/Globulin Ratio 1.0 Lipase Venous Blood Potassium 8.7 H* Urine Color Urine Clarity Urine pH Ur Specific [place] Urine Protein Urine Glucose (UA) Urine Ketones Urine Blood Urine Nitrate Urine Bilirubin Urine Urobilinogen Ur Leukocyte Esterase Urine RBC (Auto) Urine Microscopic WBC Amorphous Sediment Urine Bacteria Urine Osmolality Ur Random Sodium Ur Random Potassium Alcohol, Quantitative C. difficile Ag & Toxin 09/14/17 09/14/17 09/14/17 17:01 17:01 19:05 WBC RBC Hgb Hct MCV MCH MCHC RDW Plt Count MPV Neut % (Auto) Lymph % (Auto) [place] % (Auto) Eos % (Auto) Baso % (Auto) Neut # (Auto) Lymph # (Auto) [place] # (Auto) Eos # (Auto) Baso # (Auto) Neutrophils % (Manual) Band Neutrophils % Lymphocytes % (Manual) Reactive Lymphs % Monocytes % (Manual) Toxic Granulation Platelet Estimate Anisocytosis (manual) Colette Cells PT 11.0 INR 1.0 APTT 31.5 pO2 VBG pH VBG pCO2 VBG HCO3 VBG Total CO2 VBG O2 Sat (Calc) VBG Base Excess VBG Potassium Sodium 135 Chloride 103 Glucose Lactate FiO2 Crit Value Called To Crit Value Called By Crit Value Read Back Blood Gas Notified Time Potassium 5.9 H Carbon Dioxide 6 L* D Anion Gap 32 H BUN 126 H* Creatinine 8.8 H* Est GFR ( Amer) 5 Est GFR (Non-Af Amer) 4 POC Glucose (mg/dL) Random Glucose 312 H Lactic Acid Calcium 8.5 Phosphorus Magnesium Total Bilirubin 0.4 AST 29 ALT 25 Alkaline Phosphatase 107 Troponin I Total Protein 6.2 L Albumin 3.0 L D Globulin 3.2 Albumin/Globulin Ratio 0.9 L Lipase Venous Blood Potassium Urine Color Maya Urine Clarity Turbid Urine pH 6.0 Ur Specific [place] 1.013 Urine Protein >=500 Urine Glucose (UA) Neg Urine Ketones Trace Urine Blood Moderate Urine Nitrate Negative Urine Bilirubin Negative Urine Urobilinogen 0.2-1.0 Ur Leukocyte Esterase Large Urine RBC (Auto) 5 H Urine Microscopic WBC 10 H Amorphous Sediment Rare H Urine Bacteria Rare Urine Osmolality Ur Random Sodium Ur Random Potassium Alcohol, Quantitative C. difficile Ag & Toxin 09/14/17 09/14/17 09/14/17 19:37 20:09 20:33 WBC RBC Hgb Hct MCV MCH MCHC RDW Plt Count MPV Neut % (Auto) Lymph % (Auto) [place] % (Auto) Eos % (Auto) Baso % (Auto) Neut # (Auto) Lymph # (Auto) [place] # (Auto) Eos # (Auto) Baso # (Auto) Neutrophils % (Manual) Band Neutrophils % Lymphocytes % (Manual) Reactive Lymphs % Monocytes % (Manual) Toxic Granulation Platelet Estimate Anisocytosis (manual) [place] Cells PT INR APTT pO2 VBG pH VBG pCO2 VBG HCO3 VBG Total CO2 VBG O2 Sat (Calc) VBG Base Excess VBG Potassium Sodium Chloride Glucose Lactate FiO2 Crit Value Called To Crit Value Called By Crit Value Read Back Blood Gas Notified Time Potassium Carbon Dioxide Anion Gap BUN Creatinine Est GFR ( Amer) Est GFR (Non-Af Amer) POC Glucose (mg/dL) 290 H Random Glucose Lactic Acid Calcium Phosphorus Magnesium Total Bilirubin AST ALT Alkaline Phosphatase Troponin I Total Protein Albumin Globulin Albumin/Globulin Ratio Lipase 1170 H Venous Blood Potassium Urine Color Urine Clarity Urine pH Ur Specific [place] Urine Protein Urine Glucose (UA) Urine Ketones Urine Blood Urine Nitrate Urine Bilirubin Urine Urobilinogen Ur Leukocyte Esterase Urine RBC (Auto) Urine Microscopic WBC Amorphous Sediment Urine Bacteria Urine Osmolality 424 Ur Random Sodium 167 Ur Random Potassium 14.6 Alcohol, Quantitative < 10 C. difficile Ag & Toxin 09/14/17 09/14/17 09/14/17 21:00 21:40 22:33 WBC RBC Hgb Hct MCV MCH MCHC RDW Plt Count MPV Neut % (Auto) Lymph % (Auto) [place] % (Auto) Eos % (Auto) Baso % (Auto) Neut # (Auto) Lymph # (Auto) [place] # (Auto) Eos # (Auto) Baso # (Auto) Neutrophils % (Manual) Band Neutrophils % Lymphocytes % (Manual) Reactive Lymphs % Monocytes % (Manual) Toxic Granulation Platelet Estimate Anisocytosis (manual) [place] Cells PT INR APTT pO2 39 VBG pH 7.09 L* VBG pCO2 20 L VBG HCO3 6.5 VBG Total CO2 6.7 L VBG O2 Sat (Calc) VBG Base Excess -22.0 L VBG Potassium 7.2 H* Sodium 130.0 L Chloride 100.0 Glucose 358 H Lactate 2.5 H FiO2 21.0 Crit Value Called To Wayne coughlin Crit Value Called By Rt Crit Value Read Back Y Blood Gas Notified Time 2109 Potassium Carbon Dioxide Anion Gap BUN Creatinine Est GFR ( Amer) Est GFR (Non-Af Amer) POC Glucose (mg/dL) 282 H Random Glucose Lactic Acid Calcium Phosphorus Magnesium Total Bilirubin AST ALT Alkaline Phosphatase Troponin I Total Protein Albumin Globulin Albumin/Globulin Ratio Lipase Venous Blood Potassium 7.2 H* Urine Color Urine Clarity Urine pH Ur Specific [place] Urine Protein Urine Glucose (UA) Urine Ketones Urine Blood Urine Nitrate Urine Bilirubin Urine Urobilinogen Ur Leukocyte Esterase Urine RBC (Auto) Urine Microscopic WBC Amorphous Sediment Urine Bacteria Urine Osmolality Ur Random Sodium Ur Random Potassium Alcohol, Quantitative C. difficile Ag & Toxin Positive antigen 09/14/17 09/15/17 09/15/17 23:39 04:20 04:20 WBC 14.6 H RBC 3.93 Hgb 10.6 L D Hct 33.1 L MCV 84.3 D MCH 27.1 MCHC 32.1 L RDW 13.1 Plt Count 334 MPV 7.6 Neut % (Auto) 82.8 H Lymph % (Auto) 9.3 L [place] % (Auto) 7.8 Eos % (Auto) 0.0 Baso % (Auto) 0.1 Neut # (Auto) 12.1 H Lymph # (Auto) 1.3 [place] # (Auto) 1.1 H Eos # (Auto) 0.0 Baso # (Auto) 0.0 Neutrophils % (Manual) Band Neutrophils % Lymphocytes % (Manual) Reactive Lymphs % Monocytes % (Manual) Toxic Granulation Platelet Estimate Anisocytosis (manual) Colette Cells PT INR APTT pO2 VBG pH VBG pCO2 VBG HCO3 VBG Total CO2 VBG O2 Sat (Calc) VBG Base Excess VBG Potassium Sodium 138 Chloride 105 Glucose Lactate FiO2 Crit Value Called To Crit Value Called By Crit Value Read Back Blood Gas Notified Time Potassium 5.1 H Carbon Dioxide 13 L Anion Gap 25 H BUN 118 H* Creatinine 7.5 H* Est GFR ( Amer) 6 Est GFR (Non-Af Amer) 5 POC Glucose (mg/dL) 334 H Random Glucose 265 H Lactic Acid Calcium 8.2 L Phosphorus Magnesium Total Bilirubin 0.3 AST 35 ALT 29 Alkaline Phosphatase 98 Troponin I 0.2070 H* Total Protein 5.8 L Albumin 2.8 L Globulin 3.0 Albumin/Globulin Ratio 0.9 L Lipase Venous Blood Potassium Urine Color Urine Clarity Urine pH Ur Specific [place] Urine Protein Urine Glucose (UA) Urine Ketones Urine Blood Urine Nitrate Urine Bilirubin Urine Urobilinogen Ur Leukocyte Esterase Urine RBC (Auto) Urine Microscopic WBC Amorphous Sediment Urine Bacteria Urine Osmolality Ur Random Sodium Ur Random Potassium Alcohol, Quantitative C. difficile Ag & Toxin 09/15/17 09/15/17 09/15/17 05:30 05:40 06:12 WBC RBC Hgb Hct MCV MCH MCHC RDW Plt Count MPV Neut % (Auto) Lymph % (Auto) [place] % (Auto) Eos % (Auto) Baso % (Auto) Neut # (Auto) Lymph # (Auto) [place] # (Auto) Eos # (Auto) Baso # (Auto) Neutrophils % (Manual) Band Neutrophils % Lymphocytes % (Manual) Reactive Lymphs % Monocytes % (Manual) Toxic Granulation Platelet Estimate Anisocytosis (manual) Colette Cells PT INR APTT pO2 18 L VBG pH 7.24 L VBG pCO2 31 L VBG HCO3 12.8 VBG Total CO2 14.3 L VBG O2 Sat (Calc) 39.0 L VBG Base Excess -12.8 L VBG Potassium 5.5 H Sodium 130.0 L Chloride 107.0 Glucose 265 H Lactate 1.5 FiO2 21.0 Crit Value Called To Crit Value Called By Crit Value Read Back Blood Gas Notified Time Potassium Carbon Dioxide Anion Gap BUN Creatinine Est GFR ( Amer) Est GFR (Non-Af Amer) POC Glucose (mg/dL) 233 H Random Glucose Lactic Acid 0.9 Calcium Phosphorus Magnesium Total Bilirubin AST ALT Alkaline Phosphatase Troponin I Total Protein Albumin Globulin Albumin/Globulin Ratio Lipase Venous Blood Potassium 5.5 H Urine Color Urine Clarity Urine pH Ur Specific [place] Urine Protein Urine Glucose (UA) Urine Ketones Urine Blood Urine Nitrate Urine Bilirubin Urine Urobilinogen Ur Leukocyte Esterase Urine RBC (Auto) Urine Microscopic WBC Amorphous Sediment Urine Bacteria Urine Osmolality Ur Random Sodium Ur Random Potassium Alcohol, Quantitative C. difficile Ag & Toxin Attending/Attestation - Attestation I have personally seen and examined this patient.: Yes I have fully participated in the care of the patient.: Yes I have reviewed all pertinent clinical information: Yes
--- NOTE | 2017-09-14 19:43 | CP.PCM.CON ---
History of Present Illness - History of Present Illness History of Present Illness: Attending: Mone Valle MD PMD: Andreia Manzano MD Reason for Consult: Critical care management Chief Complaint: Vomits/Diarrhea/Abdominal pain The patient was seen and examined in the ED HPI: The hx was obtained from the patient and after review of the medical records. This is a 77 years old female with hx of DM II, CKD and depression who comes with one week hx of nausea, vomits, diarrhea with lower abdominal pain worse on defecating.No SOB, chest Pain, coughing, dysuria nor urinary frequency. She has not taken her medication for several days. In the ED the patient is oriented in person, place and time with BP 86/43mmHg with Temp 96F and respiratory rate of 24. PMH: Anxiety and depression, Arthritis, COPD, Depression, DM(type II), HTN, HLD ; Pneumonia, CKD; C Diff; Bilateral Hydronephrosis; Bilateral Hydroureter; Diverticulosis PSH: Tonsillectomy; Hysterectomy; ORIF of Left distal radius 2017, Bilateral ureteral stents SH: No illegal drug use; No ETOH; no smoking; Live with family FH: States: no Known family hx Allergies: No known Allergies Medication: Reviewed Review of Systems - Constitutional Constitutional: Anorexia, Malaise, Weakness. absent: Chills, Fever, Headache - EENT Eyes: Requires Corrective Lenses. absent: Diplopia, Floaters, Sees Flashes Ears: absent: Decreased Hearing, Ear Discharge, Tinnitus Nose/Mouth/Throat: absent: Epistaxis, Nasal Congestion, Sinus Pain, Sinus Pressure - Cardiovascular Cardiovascular: absent: Chest Pain, Dyspnea, Leg Edema - Respiratory Respiratory: absent: Cough, Dyspnea, Wheezing, Stridor - Gastrointestinal Gastrointestinal: Abdominal Pain, Diarrhea, Nausea, Vomiting - Genitourinary Genitourinary: absent: Dysuria, Flank Pain, Hematuria, Urinary Frequency - Musculoskeletal Musculoskeletal: Muscle Weakness. absent: Arthralgias, Back Pain - Integumentary Integumentary: Dry Skin. absent: Skin Ulcer, Sores, Striae, Swelling - Neurological Neurological: Weakness. absent: Confusion, Dizziness, Focal Weakness, Loss of Vision - Psychiatric Psychiatric: Anxiety, Depression. absent: Panic Attacks - Endocrine Endocrine: Polyuria. absent: Palpitations, Polydipsia, Polyphagia - Hematologic/Lymphatic Hematologic: absent: Easy Bleeding, Easy Bruising Past Patient History - Infectious Disease Hx of Infectious Diseases: None - Past Medical History & Family History Past Medical History?: Yes - Past Social History Smoking Status: Never Smoked Chewing Tobacco Use: No Cigar Use: No Alcohol: None Drugs: Denies Home Situation {Lives}: With Family - CARDIAC Hx Hypercholesterolemia: Yes Hx Hypertension: Yes - PULMONARY Hx Chronic Obstructive Pulmonary Disease (COPD): Yes Hx Pneumonia: Yes - NEUROLOGICAL Hx Neurological Disorder: No - HEENT Hx HEENT Problems: No - RENAL Hx Chronic Kidney Disease: Yes - ENDOCRINE/METABOLIC Hx Endocrine Disorders: Yes Hx Diabetes Mellitus Type 2: Yes - HEMATOLOGICAL/ONCOLOGICAL Hx Blood Disorders: No Hx Human Immunodeficiency Virus (HIV): No - INTEGUMENTARY Hx Dermatological Problems: No - MUSCULOSKELETAL/RHEUMATOLOGICAL Hx Arthritis: Yes - GASTROINTESTINAL Hx Gastrointestinal Disorders: No - GENITOURINARY/GYNECOLOGICAL Hx Genitourinary Disorders: No - PSYCHIATRIC Hx Anxiety: Yes Hx Depression: Yes - SURGICAL HISTORY Hx Hysterectomy: Yes Hx Open Reduction Internal Fixation: Yes (left wrist) Hx Tonsillectomy: Yes - ANESTHESIA Hx Anesthesia: Yes Hx Anesthesia Reactions: No Hx Malignant Hyperthermia: No Meds Allergies/Adverse Reactions: Allergies Allergy/AdvReac Type Severity Reaction Status Date / Time No Known Allergies Allergy Verified 05/08/17 21:15 - Medications Medications: Current Medications Heparin Sodium (Porcine) (Heparin) 5,000 units SC Q12 [place] PRN Reason: Protocol Sodium Bicarbonate 100 meq/ (Dextrose/Sodium Chloride) 1,100 mls @ 100 mls/hr IV .Q11H ONE Stop: 09/15/17 05:29 Last Admin: 09/14/17 19:34 Dose: 100 mls/hr Physical Exam - Constitutional Appears: No Acute Distress - Head Exam Head Exam: ATRAUMATIC, NORMAL INSPECTION, NORMOCEPHALIC - Eye Exam Eye Exam: EOMI, Normal appearance Pupil Exam: NORMAL ACCOMODATION, PERRL - ENT Exam ENT Exam: Mucous Membranes Moist, Normal Exam, Normal External Ear Exam - Neck Exam Neck exam: Positive for: Full Rom, Normal Inspection. Negative for: Lymphadenopathy, Tenderness - Respiratory Exam Respiratory Exam: Clear to Auscultation Bilateral. absent: Rales, Rhonchi, Wheezes - Cardiovascular Exam Cardiovascular Exam: REGULAR RHYTHM, RRR, +S1, +S2. absent: Gallop, JVD - GI/Abdominal Exam Additional comments: Flat, Soft, generalized tenderness, no guarding, moderate rebound tenderness, Decreased bowel sounds. - Rectal Exam Rectal Exam: Deferred - Extremities Exam Extremities exam: Positive for: full ROM, normal inspection. Negative for: calf tenderness, pedal edema - Back Exam Back exam: NORMAL INSPECTION. absent: CVA tenderness (L), CVA tenderness (R) - Neurological Exam Neurological exam: Alert, CN II-XII Intact, Oriented x3, Reflexes Normal - Psychiatric Exam Psychiatric exam: Normal Affect, Normal Mood - Skin Skin Exam: Dry, Intact, Normal Color, Warm Results - Vital Signs Recent Vital Signs: Last Vital Signs Temp 97.0 F L 09/14/17 19:32 Pulse 98 H 09/14/17 19:32 Resp 15 09/14/17 19:32 BP 113/59 L 09/14/17 19:32 Pulse Ox 99 09/14/17 19:32 - Labs Result Diagrams: 09/14/17 17:01 09/14/17 19:05 Labs: Laboratory Results - last 24 hr 09/14/17 09/14/17 09/14/17 17:00 17:01 17:01 WBC 22.0 H D RBC 5.06 Hgb 13.8 D Hct 44.2 MCV 87.3 D MCH 27.3 MCHC 31.3 L RDW 14.3 Plt Count 418 H D MPV 8.0 Neut % (Auto) 94.4 H Lymph % (Auto) 1.9 L [place] % (Auto) 3.6 Eos % (Auto) 0.0 Baso % (Auto) 0.1 Neut # (Auto) 20.7 H Lymph # (Auto) 0.4 L [place] # (Auto) 0.8 Eos # (Auto) 0.0 Baso # (Auto) 0.0 Neutrophils % (Manual) 88 H Band Neutrophils % 3 H Lymphocytes % (Manual) 5 L Reactive Lymphs % 1 H Monocytes % (Manual) 3 Toxic Granulation Present Platelet Estimate Normal Anisocytosis (manual) Slight [place] Cells Slight PT INR APTT pO2 37 VBG pH 6.99 L* VBG pCO2 18 L* VBG HCO3 4.2 VBG Total CO2 4.9 L VBG O2 Sat (Calc) 76.7 H VBG Base Excess -25.6 L VBG Potassium 8.7 H* Sodium 124.0 L 132 Chloride 97.0 L 99 Glucose 269 H Lactate 2.1 FiO2 21.0 Crit Value Called To Dr rosalia masters Crit Value Called By Rt Crit Value Read Back Y Blood Gas Notified Time 1716 Potassium 8.5 H* D Carbon Dioxide < 5 L* D Anion Gap 37 H BUN 132 H* D Creatinine 10.3 H* D Est GFR ( Amer) 4 Est GFR (Non-Af Amer) 4 POC Glucose (mg/dL) Random Glucose 250 H Calcium 9.5 Phosphorus 11.4 H Magnesium 3.1 H Total Bilirubin 0.4 AST 33 ALT 23 Alkaline Phosphatase 153 H D Troponin I 0.1940 H* Total Protein 8.0 Albumin 4.1 Globulin 3.9 Albumin/Globulin Ratio 1.0 Venous Blood Potassium 8.7 H* Urine Color Urine Clarity Urine pH Ur Specific [place] Urine Protein Urine Glucose (UA) Urine Ketones Urine Blood Urine Nitrate Urine Bilirubin Urine Urobilinogen Ur Leukocyte Esterase Urine RBC (Auto) Urine Microscopic WBC Amorphous Sediment Urine Bacteria 09/14/17 09/14/17 09/14/17 17:01 17:01 19:37 WBC RBC Hgb Hct MCV MCH MCHC RDW Plt Count MPV Neut % (Auto) Lymph % (Auto) [place] % (Auto) Eos % (Auto) Baso % (Auto) Neut # (Auto) Lymph # (Auto) [place] # (Auto) Eos # (Auto) Baso # (Auto) Neutrophils % (Manual) Band Neutrophils % Lymphocytes % (Manual) Reactive Lymphs % Monocytes % (Manual) Toxic Granulation Platelet Estimate Anisocytosis (manual) [place] Cells PT 11.0 INR 1.0 APTT 31.5 pO2 VBG pH VBG pCO2 VBG HCO3 VBG Total CO2 VBG O2 Sat (Calc) VBG Base Excess VBG Potassium Sodium Chloride Glucose Lactate FiO2 Crit Value Called To Crit Value Called By Crit Value Read Back Blood Gas Notified Time Potassium Carbon Dioxide Anion Gap BUN Creatinine Est GFR ( Amer) Est GFR (Non-Af Amer) POC Glucose (mg/dL) 290 H Random Glucose Calcium Phosphorus Magnesium Total Bilirubin AST ALT Alkaline Phosphatase Troponin I Total Protein Albumin Globulin Albumin/Globulin Ratio Venous Blood Potassium Urine Color [place] Urine Clarity Turbid Urine pH 6.0 Ur Specific [place] 1.013 Urine Protein >=500 Urine Glucose (UA) Neg Urine Ketones Trace Urine Blood Moderate Urine Nitrate Negative Urine Bilirubin Negative Urine Urobilinogen 0.2-1.0 Ur Leukocyte Esterase Large Urine RBC (Auto) 5 H Urine Microscopic WBC 10 H Amorphous Sediment Rare H Urine Bacteria Rare - Imaging and Cardiology Chest x-ray Status: Image reviewed by me Additional comment: No infiltrate CT scan - abdomen Status: Report reviewed by me Additional comment: EXAM: CT Abdomen and Pelvis Without Intravenous Contrast EXAM DATE/TIME: 09/14/2017 8:44 PM FINDINGS: The liver, spleen, gallbladder and pancreas appear grossly normal on this non- contrast study. Again seen is severe bilateral hydronephrosis and hydroureter. Since the prior study, there has been placement of bilateral ureteral stents with proximal tips in the renal pelves and distal tips in the urinary bladder. There is trace bilateral perinephric stranding unchanged. Again seen is bilateral renal parenchymal loss. The wall of the urinary bladder is thickened and indistinct and there is haziness in the surrounding fat likely representing cystitis. Left-sided urinary bladder diverticuli is noted. Stable bilateral adrenal thickening. Colonic diverticulosis is present. The appendix is identified on axial images 116 through 123. It measures up to 6 mm in diameter and is filled with fluid however is unchanged from prior. Uterus has been surgically removed. Again seen is a large cystic mass in the ri IMPRESSION: Placement of bilateral ureteral stents since prior. Otherwise no significant change. Again seen is bilateral hydronephrosis, hydroureter, renal parenchymal loss. Findings suggestive of cystitis.Recommend correlation with urinalysis. Large right adnexal cystic mass similar to prior. Assessment & Plan - Assessment and Plan (Free Text) Assessment: #. Acute on chronic kidney disease with metabolic acidosis. #. Severe Sepsis with Cystitis #. Gastroenteritis r/o Colitis #. Hyperkalemia #. DM II with Hyperkalemia Plan: 77 years old female with hx of DM II, CKD and depression who comes with one week hx of nausea, vomits, diarrhea with lower abdominal pain worse on defecating.No SOB, chest Pain, coughing, dysuria nor urinary frequency. She has not taken her medication for several days. In the ED the patient is oriented in person, place and time with BP 86/43mmHg with Temp 96F and respiratory rate of 24. #. Acute on chronic kidney disease with metabolic acidosis. CT abdomen/pelvis shows bilateral Hydronephrosis/ hydroureter with bilateral Ureteral stents - Consult Dr Houston Nephrology - Consult Urology Dr Valentine - IV Fluids - Sodium Bicarbonate - BMP - Follow Blood Gas #. Severe Sepsis with Cystitis - consult Dr Thomas ID - Follow blood and Urine culture/ CBC - Cipro #. Gastroenteritis r/o Colitis - Stool for C diff - Stool for Culture - Metronidazole - IV Fluids #. Hyperkalemia - Patient received Calcium Chloride, D50 with IV Insulin, Albuterol nebulizer - Kayexalate - Follow electrolytes #. DM II with Hyperkalemia - Glipizide - Regular Insulin sliding scale according to accucheck - HbA1c #. DVT prophylaxis with Heparin #. Code Status: Full - Date & Time Date: 09/14/17 Time: 19:43
[2017-09-14 20:21] LABS: ALB/GLOB RATIO 0.9 (1.0-2.1); CALCIUM 8.5 mg/dL (8.4-10.2)
[2017-09-14] MEDS ORDERED: Dextrose 50% SYRINGE Inj (50 ml) IV PRN (20:30)
[2017-09-14] MEDS ORDERED: Glucagon Recombinant 1 mg Inj IM PRN (20:30)
[2017-09-14] MEDS ORDERED: Insulin Regular 100 units/ml SC SCH (20:30)
[2017-09-14 20:42] LABS: LIPASE 1170 U/L (23-300)
[2017-09-14] MEDS ORDERED: Sodium Chloride 0.9% 1,000 ML IV SCH (20:45)
[2017-09-14] MEDS ORDERED: Ciprofloxacin 400mg/200ml D5W 400 MG/200 ML BAG IVPB SCH (21:00)
[2017-09-14 21:10] LABS: VENOUS BLOOD GAS PCO2 20 mmHg (40-60); VENOUS BLOOD GAS PO2 39 mm/Hg (30-55); VENOUS BLOOD PH 7.09 (7.32-7.43)
[2017-09-14] MEDS ORDERED: Insulin Lispro (humaLOG) 100 Units/ml Inj SC SCH (22:00)
[2017-09-14] MEDS: Insulin Lispro (humaLOG) 100 Units/ml Inj SC SCH (22:05)
[2017-09-14] MEDS ORDERED: Ciprofloxacin 400mg/200ml D5W 400 MG/200 ML BAG IVPB ONE (22:07)
--- NOTE | 2017-09-14 22:36 | CT ---
EXAM: CT Abdomen and Pelvis Without Intravenous Contrast EXAM DATE/TIME: 09/14/2017 8:44 PM CLINICAL HISTORY: 77 years old, female; Pain and signs and symptoms; Nausea and vomiting and other: Diarrhea; Abdominal pain; Generalized; Additional info: Abdominal pain/diarrhea/mild rebound tenderness. Sent phy. Doc. TECHNIQUE: Axial computed tomography images of the abdomen and pelvis without intravenous contrast. All CT scans at this facility use one or more dose reduction techniques, viz.: automated exposure control; ma/kV adjustment per patient size (including targeted exams where dose is matched to indication; i.e. head); or iterative reconstruction technique. Coronal and sagittal reformatted images were created and reviewed. COMPARISON: CT - ABD PELVIS W/O PO OR IV CONT 2017-05-09 00:10 FINDINGS: The liver, spleen, gallbladder and pancreas appear grossly normal on this non-contrast study. Again seen is severe bilateral hydronephrosis and hydroureter. Since the prior study, there has been placement of bilateral ureteral stents with proximal tips in the renal pelves and distal tips in the urinary bladder. There is trace bilateral perinephric stranding unchanged. Again seen is bilateral renal parenchymal loss. The wall of the urinary bladder is thickened and indistinct and there is haziness in the surrounding fat likely representing cystitis. Left-sided urinary bladder diverticuli is noted. Stable bilateral adrenal thickening. Colonic diverticulosis is present. The appendix is identified on axial images 116 through 123. It measures up to 6 mm in diameter and is filled with fluid however is unchanged from prior. Uterus has been surgically removed. Again seen is a large cystic mass in the right adnexa measuring approximately 4 x 5 cm unchanged. Again seen is a 1.5 cm left adnexal cyst. IMPRESSION: Placement of bilateral ureteral stents since prior. Otherwise no significant change. Again seen is bilateral hydronephrosis, hydroureter, renal parenchymal loss. Findings suggestive of cystitis.Recommend correlation with urinalysis. Large right adnexal cystic mass similar to prior.
[2017-09-15] MEDS: Insulin Lispro (humaLOG) 100 Units/ml Inj SC SCH ×4 (01:17→22:47)
[2017-09-15 05:34] LABS: BASO % 0.1 % (0.0-2.0); HEMOGLOBIN 10.6 g/dL (12.0-16.0); LYMPH # 1.3 K/uL (1.0-4.3); LYMPH % 9.3 % (20.0-40.0); MEAN CELL VOLUME 84.3 fl (81.0-99.0); MEAN CORPUSCULAR HEMOGLOBIN 27.1 pg (27.0-31.0); MEAN CORPUSCULAR HGB CONC 32.1 g/dL (33.0-37.0); MEAN PLATELET VOLUME 7.6 fl (7.2-11.7); MONO # 1.1 K/uL (0.0-0.8); MONO % 7.8 % (0.0-10.0); NEUT # 12.1 K/uL (1.8-7.0); NEUT % 82.8 % (50.0-75.0); RBC 3.93 Mil/uL (3.80-5.20); RED CELL DISTRIBUTION WIDTH 13.1 % (11.5-14.5); WHITE BLOOD COUNT 14.6 K/uL (4.8-10.8)
[2017-09-15 05:46] LABS: VENOUS BLOOD GAS BASE EXCESS -12.8 mmol/L (0.0-2.0); VENOUS BLOOD GAS PCO2 31 mmHg (40-60); VENOUS BLOOD GAS PO2 18 mm/Hg (30-55); VENOUS BLOOD PH 7.24 (7.32-7.43)
[2017-09-15 06:07] LABS: TROPONIN I 0.207 ng/mL (0.00-0.120)
[2017-09-15 06:11] LABS: ALB/GLOB RATIO 0.9 (1.0-2.1); ALBUMIN 2.8 g/dL (3.5-5.0); CALCIUM 8.2 mg/dL (8.4-10.2)
--- NOTE | 2017-09-15 07:59 | CP.PCM.PN ---
Addendum entered and electronically signed by Pastora Hill MD 09/15/17 18:43 : Edit- FOBT pending as well Addendum entered and electronically signed by Pastora Hill MD 09/15/17 18:30 : Pt had clay removed this am; voided with bowel movement. Bladder scan done, 41cc, pt feels like she has been voiding with each BM today. Clinically improving; suspicion for obstruction low at this time. As per salvage laborer- pt transfer to tele. Original Note: <Pastora Hill - Last Filed: 09/15/17 17:17> Subjective - Date & Time of Evaluation Date of Evaluation: 09/15/17 Time of Evaluation: 07:10 - Subjective Subjective: Pt seen and evaluated at bedside this am; pt was in good spirits, stated she was thirsty and wanted to drink water. Continues to have bouts of diarrhea. Objective - Vital Signs/Intake and Output Vital Signs (last 24 hours): Temp Pulse Resp BP Pulse Ox 98.5 F 93 H 15 115/75 100 09/15/17 04:00 09/15/17 06:00 09/15/17 06:00 09/15/17 06:00 09/15/17 06:00 Intake and Output: 09/15/17 09/15/17 06:59 18:59 Intake Total 1600 Output Total 50 Balance 1550 - Medications Medications: Current Medications Dextrose (Dextrose 50% Inj) 0 ml IV STAT PRN; Protocol PRN Reason: Hypoglycemia Protocol Dextrose (Glutose 15) 0 gm PO ONCE PRN; Protocol PRN Reason: Hypoglycemia Protocol Glucagon (Glucagen Diagnostic Kit) 0 mg IM STAT PRN; Protocol PRN Reason: Hypoglycemia Protocol Heparin Sodium (Porcine) (Heparin) 5,000 units SC Q12 [place] PRN Reason: Protocol Ciprofloxacin (Cipro 400mg/200ml Dsw) 400 mg in 200 mls @ 200 mls/hr IVPB Q12 [place] PRN Reason: Protocol Last Admin: 09/14/17 22:25 Dose: 200 mls/hr Sodium Bicarbonate 150 meq/ (Dextrose) 1,150 mls @ 75 mls/hr IV .[id number] [facility] Stop: 09/16/17 07:48 Insulin Human Lispro (Humalog) 0 units SC Q6H [place] PRN Reason: Protocol Last Admin: 09/15/17 01:17 Dose: 2 units Metronidazole (Flagyl 500mg/100ml Ns) 500 mg IVPB Q8 [place] PRN Reason: Protocol Pantoprazole Sodium (Protonix Inj) 40 mg IVP DAILY [place] - Labs Labs: 09/15/17 04:20 09/15/17 04:20 PT 11.0 Seconds (9.8-13.1) 09/14/17 17:01 INR 1.0 (0.9-1.2) 09/14/17 17:01 APTT 31.5 Seconds (25.6-37.1) 09/14/17 17:01 - Constitutional Appears: Chronically Ill - Eye Exam Eye Exam: Normal appearance - ENT Exam ENT Exam: Mucous Membranes Dry - Neck Exam Neck Exam: Full ROM, Normal Inspection - Respiratory Exam Respiratory Exam: Clear to Ausculation Bilateral, NORMAL BREATHING PATTERN. absent: Respiratory Distress - Cardiovascular Exam Cardiovascular Exam: REGULAR RHYTHM, +S1, +S2 - GI/Abdominal Exam GI & Abdominal Exam: Soft, Normal Bowel Sounds - Extremities Exam Extremities Exam: absent: Calf Tenderness - Neurological Exam Neurological Exam: Alert, Awake - Psychiatric Exam Psychiatric exam: Normal Mood - Skin Skin Exam: Dry, Warm Additional comments: seborrheic keratosis Assessment and Plan - Assessment and Plan (Free Text) Assessment: 77 yo F, with PMH CKD, DM2, HTN, with hx of poor followup, admitted for sepsis, metabolic acidosis, eletrolyte derangement, and acute on chronic kidney injury. Plan: # Severe Sepsis - WBC: 14.6 this am, down from 22 on admission - IV hydration - Procalcitonin 0.25 - Abx changed to Levaquin/Flagyl 500mg Q8H - Blood/urine/stool cultures: pending - C diff: antigen positive- oral vancomycin - Fecal leukocyte pending - ID consult - Dr. Thomas # Metabolic Acidosis - Improving - pH: 7.24 this am - CO2: 13 this am, <5 on admission - IV fluids w/ bicarb - consider d/c based on BMP later today - Sodium Bicarb 650 mg PO Q6 - follow up BMP 4 pm today # Acute Pancreatitis - Lipase: 1120 - IV fluid hydration - FOBT negative - Abd CT: pancreas appears grossly normal # Acute on Chronic Kidney Injury - BUN/Cr this am: 118/7.5 - BUN/Cr on presentation: 132/10.3 - BUN/Cr upon D/C in 05/2017: 43/2.9 - Urine sodium 167 wnl, urine potassium 14.6 wnl, urine osmolality 424 - hx of b/l renal stenting performed in 05/2017 - stents visible on abd CT - nephrology consult with Dr. Houston - pt not agreeable to hemodialysis # Hyperkalemia - 5.1 this am; down from 8.5 on presentation - Lispro SC Q6H plus correction scale - monitor BMP 4pm # IDDM2 with Hyperglycemia - s/p 5 units Regular insulin in ED - Lispro correction scale, Q6H - accuchecks ACHS - hemoglobin A1C 12.0 # Elevated Troponin - likely 2/2 to [facility] - cardiac monitoring # Urinary Tract Infection - large leukocyte esterase, WBCs - urine culture pending - receiving antibiotics - Abd CT: thickening of wall of urinary bladder, haziness in surrounding fat likely representing cystitis - clay placed; to be removed this am # Right Adnexal Mass - seen on CT on 2016, again seen on CT on this admission, stable in size # Hypertension -chronic -hypotensive on presentation/normotensive -home meds held -monitor #) Diet - renal diet #) Prophylactic Measures -Protonix 40mg IV QD -Heparin 5000 units Q12H <Jose Juan Boswell - Last Filed: 09/20/17 06:53> Objective - Vital Signs/Intake and Output Vital Signs (last 24 hours): Temp Pulse Resp BP Pulse Ox 98.6 F 71 18 115/69 99 09/20/17 05:00 09/20/17 05:00 09/20/17 05:00 09/20/17 05:00 09/20/17 05:00 Intake and Output: 09/19/17 09/20/17 18:59 06:59 Intake Total 850 Output Total 1 Balance 849 - Medications Medications: Current Medications Albuterol/Ipratropium (Duoneb 3 Mg/0.5 Mg (3 Ml) Ud) 3 ml INH RQ6 PRN PRN Reason: Shortness of Breath Atorvastatin Calcium (Lipitor) 10 mg PO DAILY [facility] Last Admin: 09/19/17 09:48 Dose: 10 mg Dextrose (Dextrose 50% Inj) 0 ml IV STAT PRN; Protocol PRN Reason: Hypoglycemia Protocol Dextrose (Glutose 15) 0 gm PO ONCE PRN; Protocol PRN Reason: Hypoglycemia Protocol Famotidine (Pepcid) 20 mg PO DAILY [facility] Last Admin: 09/19/17 09:48 Dose: 20 mg Glucagon (Glucagen Diagnostic Kit) 0 mg IM STAT PRN; Protocol PRN Reason: Hypoglycemia Protocol Heparin Sodium (Porcine) (Heparin) 5,000 units SC Q12 [place] PRN Reason: Protocol Last Admin: 09/19/17 22:16 Dose: 5,000 units Cefepime HCl 1 gm/ Sodium (Chloride) 100 mls @ 100 mls/hr IVPB DAILY [facility] PRN Reason: Protocol Last Admin: 09/19/17 09:48 Dose: 100 mls/hr Lactated Ringer's (Lactated Ringer's) 1,000 mls @ 75 mls/hr IV .[id number] [facility] Last Admin: 09/20/17 03:52 Dose: 75 mls/hr Insulin Detemir (Levemir) 3 units SC HS [facility] Last Admin: 09/19/17 22:15 Dose: 3 units Insulin Human Lispro (Humalog) 0 units SC ACHS [facility] PRN Reason: Protocol Last Admin: 09/20/17 06:48 Dose: 4 units Ondansetron HCl (Zofran Inj) 4 mg IVP Q6 PRN PRN Reason: Nausea/Vomiting Last Admin: 09/16/17 16:45 Dose: 4 mg Sodium Bicarbonate (Sodium Bicarbonate Tab) 650 mg PO Q6 [facility] Last Admin: 09/20/17 03:51 Dose: 650 mg Vancomycin HCl (Vancocin (Oral/Rectal Use)) 500 mg PO Q6 [facility] PRN Reason: Protocol Stop: 09/29/17 10:01 Last Admin: 09/20/17 03:51 Dose: 500 mg - Labs Labs: 09/20/17 04:20 09/20/17 04:20 PT 11.0 Seconds (9.8-13.1) 09/14/17 17:01 INR 1.0 (0.9-1.2) 09/14/17 17:01 APTT 31.5 Seconds (25.6-37.1) 09/14/17 17:01 Attending/Attestation - Attestation I have personally seen and examined this patient.: Yes I have fully participated in the care of the patient.: Yes I have reviewed all pertinent clinical information, including history, physical exam and plan: Yes
[2017-09-15] MEDS ORDERED: levoFLOXacin 500 MG TAB PO SCH (08:15)
[2017-09-15] MEDS ORDERED: Albuterol-Ipratrop 3 mg / 0.5 (3 ml) UD INH PRN (08:19)
[2017-09-15] MEDS ORDERED: metroNIDAZOLE 500mg/100ml NS IVPB SCH (09:00)
[2017-09-15] MEDS: Vancomycin 500 mg (Oral/Rectal USE) PO SCH ×3 (09:42→22:29)
[2017-09-15] MEDS: Sodium Bicarbonate 8.4% 150 MEQ in Dextrose 5% In Water 1,000 ML IV SCH (09:42)
--- NOTE | 2017-09-15 09:56 | CP.PCM.CON ---
History of Present Illness - History of Present Illness History of Present Illness: Infectious Disease Consultation Note- asked to see this patient at the request of Dr.Simon Lopes for sepsis, UTI, ? colitis. HPI- History obtained from the patietn and the medical chart and the nurse. Patient is a 77 year old female with PMH of HTN, DM II, Chronic Kidney disease , b/l hydronephrosis s/p b/l ureteral stents in 05/2017 who was brought in for c/o lower abdominal pain and nausea and vomiting and diarrhea . Gabbie sattes she has been feeling ill for the past 2 weeks with above symptoms but her symptoms worsened and she was brought in by her son for evaluation and treatment. Pt. also states her ureteral stents were supposed to be removed in june but she never f/u with her urologist. She denies any dyaurea . states she urinates alot. she denies any cough or sob and denies any chest pain. in the ED she was found to be hypotensive and high lactate level and acidotic and + UA . Pt. explain she feels better today compared to yesterday she states she just feels very tired. PMH: Anxiety and depression, Arthritis, COPD, Depression, DM(type II), HTN, HLD ; Pneumonia, CKD; C Diff; Bilateral Hydronephrosis; Bilateral Hydroureter; Diverticulosis PSH: Tonsillectomy; Hysterectomy; ORIF of Left distal radius 2016, Bilateral ureteral stents SH: No illegal drug use; No ETOH; no smoking; Live with family FH: States: no Known family hx Allergies: No known Allergies Review of Systems - Review of Systems Review of Systems: ROS- denies any fever or chills, denies any MOREAU, denies any cough or sob, denies any chest pain, + nausea and vomiting, = lower abdominal pain, + diarrhea. denies any dysurea, + urinary frequency denies any recent travel denies any sick contacts. Past Patient History - Infectious Disease Hx of Infectious Diseases: None - Past Medical History & Family History Past Medical History?: Yes - Past Social History Smoking Status: Never Smoked Chewing Tobacco Use: No Cigar Use: No Alcohol: None Drugs: Denies Home Situation {Lives}: With Family - CARDIAC Hx Hypercholesterolemia: Yes Hx Hypertension: Yes - PULMONARY Hx Chronic Obstructive Pulmonary Disease (COPD): Yes Hx Pneumonia: Yes - NEUROLOGICAL Hx Neurological Disorder: No - HEENT Hx HEENT Problems: No - RENAL Hx Chronic Kidney Disease: Yes - ENDOCRINE/METABOLIC Hx Endocrine Disorders: Yes Hx Diabetes Mellitus Type 2: Yes - HEMATOLOGICAL/ONCOLOGICAL Hx Blood Disorders: No - INTEGUMENTARY Hx Dermatological Problems: No - MUSCULOSKELETAL/RHEUMATOLOGICAL Hx Arthritis: Yes - GASTROINTESTINAL Hx Gastrointestinal Disorders: No - GENITOURINARY/GYNECOLOGICAL Hx Genitourinary Disorders: No - PSYCHIATRIC Hx Anxiety: Yes Hx Depression: Yes - SURGICAL HISTORY Hx Hysterectomy: Yes Hx Open Reduction Internal Fixation: Yes (left wrist) Hx Tonsillectomy: Yes - ANESTHESIA Hx Anesthesia: Yes Hx Anesthesia Reactions: No Hx Malignant Hyperthermia: No Meds Allergies/Adverse Reactions: Allergies Allergy/AdvReac Type Severity Reaction Status Date / Time No Known Allergies Allergy Verified 05/08/17 21:15 - Medications Medications: Current Medications Albuterol/Ipratropium (Duoneb 3 Mg/0.5 Mg (3 Ml) Ud) 3 ml INH RQ6 PRN PRN Reason: Shortness of Breath Dextrose (Dextrose 50% Inj) 0 ml IV STAT PRN; Protocol PRN Reason: Hypoglycemia Protocol Dextrose (Glutose 15) 0 gm PO ONCE PRN; Protocol PRN Reason: Hypoglycemia Protocol Famotidine (Pepcid) 20 mg PO DAILY [facility] Last Admin: 09/15/17 09:02 Dose: 20 mg Glucagon (Glucagen Diagnostic Kit) 0 mg IM STAT PRN; Protocol PRN Reason: Hypoglycemia Protocol Heparin Sodium (Porcine) (Heparin) 5,000 units SC Q12 [place] PRN Reason: Protocol Last Admin: 09/15/17 08:58 Dose: 5,000 units Sodium Bicarbonate 150 meq/ (Dextrose) 1,150 mls @ 75 mls/hr IV .[id number] [facility] Stop: 09/16/17 07:48 Last Admin: 09/15/17 09:42 Dose: 75 mls/hr Insulin Human Lispro (Humalog) 0 units SC Q6H [place] PRN Reason: Protocol Last Admin: 09/15/17 08:59 Dose: 3 units Levofloxacin (Levaquin) 500 mg PO Q48H [place] PRN Reason: Protocol Stop: 09/20/17 08:16 Last Admin: 09/15/17 09:42 Dose: 500 mg Sodium Bicarbonate (Sodium Bicarbonate Tab) 650 mg PO Q6 [facility] Last Admin: 09/15/17 09:43 Dose: 650 mg Vancomycin HCl (Vancocin (Oral/Rectal Use)) 500 mg PO Q6 [place] PRN Reason: Protocol Stop: 09/29/17 10:01 Last Admin: 09/15/17 09:42 Dose: 500 mg Physical Exam - Constitutional Appears: No Acute Distress, Chronically Ill - Head Exam Head Exam: ATRAUMATIC - Eye Exam Eye Exam: EOMI, PERRL - ENT Exam ENT Exam: Normal Oropharynx - Neck Exam Neck exam: Positive for: Full Rom Additional comments: supple - Respiratory Exam Respiratory Exam: Clear to Auscultation Bilateral, NORMAL BREATHING PATTERN - Cardiovascular Exam Cardiovascular Exam: RRR, +S1, +S2 - GI/Abdominal Exam GI & Abdominal Exam: Normal Bowel Sounds, Soft Additional comments: No distention mild tenderness with palpation in lower abd region No guarding, no rebound no CVA tenderness B/L - Extremities Exam Extremities exam: Positive for: pedal edema Additional comments: 2+ edema B/L LE - Neurological Exam Neurological exam: Alert, Oriented x3 Results - Vital Signs Recent Vital Signs: Last Vital Signs Temp 97.6 F 09/15/17 08:00 Pulse 97 H 09/15/17 08:00 Resp 17 09/15/17 08:00 BP 160/96 H 09/15/17 08:00 Pulse Ox 100 09/15/17 08:00 - Labs Result Diagrams: 09/15/17 04:20 09/15/17 04:20 Labs: Laboratory Results - last 24 hr 09/14/17 09/14/17 09/14/17 17:00 17:01 17:01 WBC 22.0 H D RBC 5.06 Hgb 13.8 D Hct 44.2 MCV 87.3 D MCH 27.3 MCHC 31.3 L RDW 14.3 Plt Count 418 H D MPV 8.0 Neut % (Auto) 94.4 H Lymph % (Auto) 1.9 L [place] % (Auto) 3.6 Eos % (Auto) 0.0 Baso % (Auto) 0.1 Neut # (Auto) 20.7 H Lymph # (Auto) 0.4 L [place] # (Auto) 0.8 Eos # (Auto) 0.0 Baso # (Auto) 0.0 Neutrophils % (Manual) 88 H Band Neutrophils % 3 H Lymphocytes % (Manual) 5 L Reactive Lymphs % 1 H Monocytes % (Manual) 3 Toxic Granulation Present Platelet Estimate Normal Anisocytosis (manual) Slight [place] Cells Slight PT INR APTT pO2 37 VBG pH 6.99 L* VBG pCO2 18 L* VBG HCO3 4.2 VBG Total CO2 4.9 L VBG O2 Sat (Calc) 76.7 H VBG Base Excess -25.6 L VBG Potassium 8.7 H* Sodium 124.0 L 132 Chloride 97.0 L 99 Glucose 269 H Lactate 2.1 FiO2 21.0 Crit Value Called To Dr rosalia masters Crit Value Called By Rt Crit Value Read Back Y Blood Gas Notified Time 1716 Potassium 8.5 H* D Carbon Dioxide < 5 L* D Anion Gap 37 H BUN 132 H* D Creatinine 10.3 H* D Est GFR ( Amer) 4 Est GFR (Non-Af Amer) 4 POC Glucose (mg/dL) Random Glucose 250 H Lactic Acid Calcium 9.5 Phosphorus 11.4 H Magnesium 3.1 H Total Bilirubin 0.4 AST 33 ALT 23 Alkaline Phosphatase 153 H D Troponin I 0.1940 H* Total Protein 8.0 Albumin 4.1 Globulin 3.9 Albumin/Globulin Ratio 1.0 Lipase Venous Blood Potassium 8.7 H* Urine Color Urine Clarity Urine pH Ur Specific [place] Urine Protein Urine Glucose (UA) Urine Ketones Urine Blood Urine Nitrate Urine Bilirubin Urine Urobilinogen Ur Leukocyte Esterase Urine RBC (Auto) Urine Microscopic WBC Amorphous Sediment Urine Bacteria Urine Osmolality Ur Random Sodium Ur Random Potassium Alcohol, Quantitative C. difficile Ag & Toxin 09/14/17 09/14/17 09/14/17 17:01 17:01 19:05 WBC RBC Hgb Hct MCV MCH MCHC RDW Plt Count MPV Neut % (Auto) Lymph % (Auto) [place] % (Auto) Eos % (Auto) Baso % (Auto) Neut # (Auto) Lymph # (Auto) [place] # (Auto) Eos # (Auto) Baso # (Auto) Neutrophils % (Manual) Band Neutrophils % Lymphocytes % (Manual) Reactive Lymphs % Monocytes % (Manual) Toxic Granulation Platelet Estimate Anisocytosis (manual) [place] Cells PT 11.0 INR 1.0 APTT 31.5 pO2 VBG pH VBG pCO2 VBG HCO3 VBG Total CO2 VBG O2 Sat (Calc) VBG Base Excess VBG Potassium Sodium 135 Chloride 103 Glucose Lactate FiO2 Crit Value Called To Crit Value Called By Crit Value Read Back Blood Gas Notified Time Potassium 5.9 H Carbon Dioxide 6 L* D Anion Gap 32 H BUN 126 H* Creatinine 8.8 H* Est GFR ( Amer) 5 Est GFR (Non-Af Amer) 4 POC Glucose (mg/dL) Random Glucose 312 H Lactic Acid Calcium 8.5 Phosphorus Magnesium Total Bilirubin 0.4 AST 29 ALT 25 Alkaline Phosphatase 107 Troponin I Total Protein 6.2 L Albumin 3.0 L D Globulin 3.2 Albumin/Globulin Ratio 0.9 L Lipase Venous Blood Potassium Urine Color Maya Urine Clarity Turbid Urine pH 6.0 Ur Specific [place] 1.013 Urine Protein >=500 Urine Glucose (UA) Neg Urine Ketones Trace Urine Blood Moderate Urine Nitrate Negative Urine Bilirubin Negative Urine Urobilinogen 0.2-1.0 Ur Leukocyte Esterase Large Urine RBC (Auto) 5 H Urine Microscopic WBC 10 H Amorphous Sediment Rare H Urine Bacteria Rare Urine Osmolality Ur Random Sodium Ur Random Potassium Alcohol, Quantitative C. difficile Ag & Toxin 09/14/17 09/14/17 09/14/17 19:37 20:09 20:33 WBC RBC Hgb Hct MCV MCH MCHC RDW Plt Count MPV Neut % (Auto) Lymph % (Auto) [place] % (Auto) Eos % (Auto) Baso % (Auto) Neut # (Auto) Lymph # (Auto) [place] # (Auto) Eos # (Auto) Baso # (Auto) Neutrophils % (Manual) Band Neutrophils % Lymphocytes % (Manual) Reactive Lymphs % Monocytes % (Manual) Toxic Granulation Platelet Estimate Anisocytosis (manual) [place] Cells PT INR APTT pO2 VBG pH VBG pCO2 VBG HCO3 VBG Total CO2 VBG O2 Sat (Calc) VBG Base Excess VBG Potassium Sodium Chloride Glucose Lactate FiO2 Crit Value Called To Crit Value Called By Crit Value Read Back Blood Gas Notified Time Potassium Carbon Dioxide Anion Gap BUN Creatinine Est GFR ( Amer) Est GFR (Non-Af Amer) POC Glucose (mg/dL) 290 H Random Glucose Lactic Acid Calcium Phosphorus Magnesium Total Bilirubin AST ALT Alkaline Phosphatase Troponin I Total Protein Albumin Globulin Albumin/Globulin Ratio Lipase 1170 H Venous Blood Potassium Urine Color Urine Clarity Urine pH Ur Specific [place] Urine Protein Urine Glucose (UA) Urine Ketones Urine Blood Urine Nitrate Urine Bilirubin Urine Urobilinogen Ur Leukocyte Esterase Urine RBC (Auto) Urine Microscopic WBC Amorphous Sediment Urine Bacteria Urine Osmolality 424 Ur Random Sodium 167 Ur Random Potassium 14.6 Alcohol, Quantitative < 10 C. difficile Ag & Toxin 09/14/17 09/14/17 09/14/17 21:00 21:40 22:33 WBC RBC Hgb Hct MCV MCH MCHC RDW Plt Count MPV Neut % (Auto) Lymph % (Auto) [place] % (Auto) Eos % (Auto) Baso % (Auto) Neut # (Auto) Lymph # (Auto) [place] # (Auto) Eos # (Auto) Baso # (Auto) Neutrophils % (Manual) Band Neutrophils % Lymphocytes % (Manual) Reactive Lymphs % Monocytes % (Manual) Toxic Granulation Platelet Estimate Anisocytosis (manual) [place] Cells PT INR APTT pO2 39 VBG pH 7.09 L* VBG pCO2 20 L VBG HCO3 6.5 VBG Total CO2 6.7 L VBG O2 Sat (Calc) VBG Base Excess -22.0 L VBG Potassium 7.2 H* Sodium 130.0 L Chloride 100.0 Glucose 358 H Lactate 2.5 H FiO2 21.0 Crit Value Called To Wayne coughlin Crit Value Called By Rt Crit Value Read Back Y Blood Gas Notified Time 2109 Potassium Carbon Dioxide Anion Gap BUN Creatinine Est GFR ( Amer) Est GFR (Non-Af Amer) POC Glucose (mg/dL) 282 H Random Glucose Lactic Acid Calcium Phosphorus Magnesium Total Bilirubin AST ALT Alkaline Phosphatase Troponin I Total Protein Albumin Globulin Albumin/Globulin Ratio Lipase Venous Blood Potassium 7.2 H* Urine Color Urine Clarity Urine pH Ur Specific [place] Urine Protein Urine Glucose (UA) Urine Ketones Urine Blood Urine Nitrate Urine Bilirubin Urine Urobilinogen Ur Leukocyte Esterase Urine RBC (Auto) Urine Microscopic WBC Amorphous Sediment Urine Bacteria Urine Osmolality Ur Random Sodium Ur Random Potassium Alcohol, Quantitative C. difficile Ag & Toxin Positive antigen 09/14/17 09/15/17 09/15/17 23:39 04:20 04:20 WBC 14.6 H RBC 3.93 Hgb 10.6 L D Hct 33.1 L MCV 84.3 D MCH 27.1 MCHC 32.1 L RDW 13.1 Plt Count 334 MPV 7.6 Neut % (Auto) 82.8 H Lymph % (Auto) 9.3 L [place] % (Auto) 7.8 Eos % (Auto) 0.0 Baso % (Auto) 0.1 Neut # (Auto) 12.1 H Lymph # (Auto) 1.3 [place] # (Auto) 1.1 H Eos # (Auto) 0.0 Baso # (Auto) 0.0 Neutrophils % (Manual) Band Neutrophils % Lymphocytes % (Manual) Reactive Lymphs % Monocytes % (Manual) Toxic Granulation Platelet Estimate Anisocytosis (manual) [place] Cells PT INR APTT pO2 VBG pH VBG pCO2 VBG HCO3 VBG Total CO2 VBG O2 Sat (Calc) VBG Base Excess VBG Potassium Sodium 138 Chloride 105 Glucose Lactate FiO2 Crit Value Called To Crit Value Called By Crit Value Read Back Blood Gas Notified Time Potassium 5.1 H Carbon Dioxide 13 L Anion Gap 25 H BUN 118 H* Creatinine 7.5 H* Est GFR ( Amer) 6 Est GFR (Non-Af Amer) 5 POC Glucose (mg/dL) 334 H Random Glucose 265 H Lactic Acid Calcium 8.2 L Phosphorus Magnesium Total Bilirubin 0.3 AST 35 ALT 29 Alkaline Phosphatase 98 Troponin I 0.2070 H* Total Protein 5.8 L Albumin 2.8 L Globulin 3.0 Albumin/Globulin Ratio 0.9 L Lipase Venous Blood Potassium Urine Color Urine Clarity Urine pH Ur Specific [place] Urine Protein Urine Glucose (UA) Urine Ketones Urine Blood Urine Nitrate Urine Bilirubin Urine Urobilinogen Ur Leukocyte Esterase Urine RBC (Auto) Urine Microscopic WBC Amorphous Sediment Urine Bacteria Urine Osmolality Ur Random Sodium Ur Random Potassium Alcohol, Quantitative C. difficile Ag & Toxin 09/15/17 09/15/17 09/15/17 04:20 05:30 05:40 WBC RBC Hgb Hct MCV MCH MCHC RDW Plt Count MPV Neut % (Auto) Lymph % (Auto) [place] % (Auto) Eos % (Auto) Baso % (Auto) Neut # (Auto) Lymph # (Auto) [place] # (Auto) Eos # (Auto) Baso # (Auto) Neutrophils % (Manual) Band Neutrophils % Lymphocytes % (Manual) Reactive Lymphs % Monocytes % (Manual) Toxic Granulation Platelet Estimate Anisocytosis (manual) [place] Cells PT INR APTT pO2 18 L VBG pH 7.24 L VBG pCO2 31 L VBG HCO3 12.8 VBG Total CO2 14.3 L VBG O2 Sat (Calc) 39.0 L VBG Base Excess -12.8 L VBG Potassium 5.5 H Sodium 130.0 L Chloride 107.0 Glucose 265 H Lactate 1.5 FiO2 21.0 Crit Value Called To Crit Value Called By Crit Value Read Back Blood Gas Notified Time Potassium Carbon Dioxide Anion Gap BUN Creatinine Est GFR ( Amer) Est GFR (Non-Af Amer) POC Glucose (mg/dL) Random Glucose Lactic Acid 0.9 Calcium Phosphorus 6.9 H Magnesium Total Bilirubin AST ALT Alkaline Phosphatase Troponin I Total Protein Albumin Globulin Albumin/Globulin Ratio Lipase Venous Blood Potassium 5.5 H Urine Color Urine Clarity Urine pH Ur Specific [place] Urine Protein Urine Glucose (UA) Urine Ketones Urine Blood Urine Nitrate Urine Bilirubin Urine Urobilinogen Ur Leukocyte Esterase Urine RBC (Auto) Urine Microscopic WBC Amorphous Sediment Urine Bacteria Urine Osmolality Ur Random Sodium Ur Random Potassium Alcohol, Quantitative C. difficile Ag & Toxin 09/15/17 06:12 WBC RBC Hgb Hct MCV MCH MCHC RDW Plt Count MPV Neut % (Auto) Lymph % (Auto) [place] % (Auto) Eos % (Auto) Baso % (Auto) Neut # (Auto) Lymph # (Auto) [place] # (Auto) Eos # (Auto) Baso # (Auto) Neutrophils % (Manual) Band Neutrophils % Lymphocytes % (Manual) Reactive Lymphs % Monocytes % (Manual) Toxic Granulation Platelet Estimate Anisocytosis (manual) [place] Cells PT INR APTT pO2 VBG pH VBG pCO2 VBG HCO3 VBG Total CO2 VBG O2 Sat (Calc) VBG Base Excess VBG Potassium Sodium Chloride Glucose Lactate FiO2 Crit Value Called To Crit Value Called By Crit Value Read Back Blood Gas Notified Time Potassium Carbon Dioxide Anion Gap BUN Creatinine Est GFR ( Amer) Est GFR (Non-Af Amer) POC Glucose (mg/dL) 233 H Random Glucose Lactic Acid Calcium Phosphorus Magnesium Total Bilirubin AST ALT Alkaline Phosphatase Troponin I Total Protein Albumin Globulin Albumin/Globulin Ratio Lipase Venous Blood Potassium Urine Color Urine Clarity Urine pH Ur Specific [place] Urine Protein Urine Glucose (UA) Urine Ketones Urine Blood Urine Nitrate Urine Bilirubin Urine Urobilinogen Ur Leukocyte Esterase Urine RBC (Auto) Urine Microscopic WBC Amorphous Sediment Urine Bacteria Urine Osmolality Ur Random Sodium Ur Random Potassium Alcohol, Quantitative C. difficile Ag & Toxin Laboratory Results - last 72 hr 09/14/17 09/14/17 09/14/17 17:00 17:01 17:01 WBC 22.0 H D RBC 5.06 Hgb 13.8 D Hct 44.2 MCV 87.3 D MCH 27.3 MCHC 31.3 L RDW 14.3 Plt Count 418 H D MPV 8.0 Neut % (Auto) 94.4 H Lymph % (Auto) 1.9 L [place] % (Auto) 3.6 Eos % (Auto) 0.0 Baso % (Auto) 0.1 Neut # (Auto) 20.7 H Lymph # (Auto) 0.4 L [place] # (Auto) 0.8 Eos # (Auto) 0.0 Baso # (Auto) 0.0 Neutrophils % (Manual) 88 H Band Neutrophils % 3 H Lymphocytes % (Manual) 5 L Reactive Lymphs % 1 H Monocytes % (Manual) 3 Toxic Granulation Present Platelet Estimate Normal Anisocytosis (manual) Slight [place] Cells Slight PT INR APTT pO2 37 VBG pH 6.99 L* VBG pCO2 18 L* VBG HCO3 4.2 VBG Total CO2 4.9 L VBG O2 Sat (Calc) 76.7 H VBG Base Excess -25.6 L VBG Potassium 8.7 H* Sodium 124.0 L 132 Chloride 97.0 L 99 Glucose 269 H Lactate 2.1 FiO2 21.0 Crit Value Called To Dr rosalia masters Crit Value Called By Rt Crit Value Read Back Y Blood Gas Notified Time 1716 Potassium 8.5 H* D Carbon Dioxide < 5 L* D Anion Gap 37 H BUN 132 H* D Creatinine 10.3 H* D Est GFR ( Amer) 4 Est GFR (Non-Af Amer) 4 POC Glucose (mg/dL) Random Glucose 250 H Hemoglobin A1c Lactic Acid Calcium 9.5 Phosphorus 11.4 H Magnesium 3.1 H Total Bilirubin 0.4 AST 33 ALT 23 Alkaline Phosphatase 153 H D Troponin I 0.1940 H* Total Protein 8.0 Albumin 4.1 Globulin 3.9 Albumin/Globulin Ratio 1.0 Lipase Procalcitonin Venous Blood Potassium 8.7 H* Urine Color Urine Clarity Urine pH Ur Specific [place] Urine Protein Urine Glucose (UA) Urine Ketones Urine Blood Urine Nitrate Urine Bilirubin Urine Urobilinogen Ur Leukocyte Esterase Urine RBC (Auto) Urine Microscopic WBC Amorphous Sediment Urine Bacteria Urine Osmolality Ur Random Sodium Ur Random Potassium Alcohol, Quantitative C. difficile Ag & Toxin 09/14/17 09/14/17 09/14/17 17:01 17:01 19:05 WBC RBC Hgb Hct MCV MCH MCHC RDW Plt Count MPV Neut % (Auto) Lymph % (Auto) [place] % (Auto) Eos % (Auto) Baso % (Auto) Neut # (Auto) Lymph # (Auto) [place] # (Auto) Eos # (Auto) Baso # (Auto) Neutrophils % (Manual) Band Neutrophils % Lymphocytes % (Manual) Reactive Lymphs % Monocytes % (Manual) Toxic Granulation Platelet Estimate Anisocytosis (manual) [place] Cells PT 11.0 INR 1.0 APTT 31.5 pO2 VBG pH VBG pCO2 VBG HCO3 VBG Total CO2 VBG O2 Sat (Calc) VBG Base Excess VBG Potassium Sodium 135 Chloride 103 Glucose Lactate FiO2 Crit Value Called To Crit Value Called By Crit Value Read Back Blood Gas Notified Time Potassium 5.9 H Carbon Dioxide 6 L* D Anion Gap 32 H BUN 126 H* Creatinine 8.8 H* Est GFR ( Amer) 5 Est GFR (Non-Af Amer) 4 POC Glucose (mg/dL) Random Glucose 312 H Hemoglobin A1c Lactic Acid Calcium 8.5 Phosphorus Magnesium Total Bilirubin 0.4 AST 29 ALT 25 Alkaline Phosphatase 107 Troponin I Total Protein 6.2 L Albumin 3.0 L D Globulin 3.2 Albumin/Globulin Ratio 0.9 L Lipase Procalcitonin Venous Blood Potassium Urine Color Maya Urine Clarity Turbid Urine pH 6.0 Ur Specific [place] 1.013 Urine Protein >=500 Urine Glucose (UA) Neg Urine Ketones Trace Urine Blood Moderate Urine Nitrate Negative Urine Bilirubin Negative Urine Urobilinogen 0.2-1.0 Ur Leukocyte Esterase Large Urine RBC (Auto) 5 H Urine Microscopic WBC 10 H Amorphous Sediment Rare H Urine Bacteria Rare Urine Osmolality Ur Random Sodium Ur Random Potassium Alcohol, Quantitative C. difficile Ag & Toxin 09/14/17 09/14/17 09/14/17 19:37 19:43 20:09 WBC RBC Hgb Hct MCV MCH MCHC RDW Plt Count MPV Neut % (Auto) Lymph % (Auto) [place] % (Auto) Eos % (Auto) Baso % (Auto) Neut # (Auto) Lymph # (Auto) [place] # (Auto) Eos # (Auto) Baso # (Auto) Neutrophils % (Manual) Band Neutrophils % Lymphocytes % (Manual) Reactive Lymphs % Monocytes % (Manual) Toxic Granulation Platelet Estimate Anisocytosis (manual) [place] Cells PT INR APTT pO2 VBG pH VBG pCO2 VBG HCO3 VBG Total CO2 VBG O2 Sat (Calc) VBG Base Excess VBG Potassium Sodium Chloride Glucose Lactate FiO2 Crit Value Called To Crit Value Called By Crit Value Read Back Blood Gas Notified Time Potassium Carbon Dioxide Anion Gap BUN Creatinine Est GFR ( Amer) Est GFR (Non-Af Amer) POC Glucose (mg/dL) 290 H Random Glucose Hemoglobin A1c Lactic Acid Calcium Phosphorus Magnesium Total Bilirubin AST ALT Alkaline Phosphatase Troponin I Total Protein Albumin Globulin Albumin/Globulin Ratio Lipase Procalcitonin 0.25 Venous Blood Potassium Urine Color Urine Clarity Urine pH Ur Specific [place] Urine Protein Urine Glucose (UA) Urine Ketones Urine Blood Urine Nitrate Urine Bilirubin Urine Urobilinogen Ur Leukocyte Esterase Urine RBC (Auto) Urine Microscopic WBC Amorphous Sediment Urine Bacteria Urine Osmolality 424 Ur Random Sodium 167 Ur Random Potassium 14.6 Alcohol, Quantitative C. difficile Ag & Toxin 09/14/17 09/14/17 09/14/17 20:33 21:00 21:40 WBC RBC Hgb Hct MCV MCH MCHC RDW Plt Count MPV Neut % (Auto) Lymph % (Auto) [place] % (Auto) Eos % (Auto) Baso % (Auto) Neut # (Auto) Lymph # (Auto) [place] # (Auto) Eos # (Auto) Baso # (Auto) Neutrophils % (Manual) Band Neutrophils % Lymphocytes % (Manual) Reactive Lymphs % Monocytes % (Manual) Toxic Granulation Platelet Estimate Anisocytosis (manual) [place] Cells PT INR APTT pO2 39 VBG pH 7.09 L* VBG pCO2 20 L VBG HCO3 6.5 VBG Total CO2 6.7 L VBG O2 Sat (Calc) VBG Base Excess -22.0 L VBG Potassium 7.2 H* Sodium 130.0 L Chloride 100.0 Glucose 358 H Lactate 2.5 H FiO2 21.0 Crit Value Called To Wayne coughlin Crit Value Called By Rt Crit Value Read Back Y Blood Gas Notified Time 2109 Potassium Carbon Dioxide Anion Gap BUN Creatinine Est GFR ( Amer) Est GFR (Non-Af Amer) POC Glucose (mg/dL) 282 H Random Glucose Hemoglobin A1c Lactic Acid Calcium Phosphorus Magnesium Total Bilirubin AST ALT Alkaline Phosphatase Troponin I Total Protein Albumin Globulin Albumin/Globulin Ratio Lipase 1170 H Procalcitonin Venous Blood Potassium 7.2 H* Urine Color Urine Clarity Urine pH Ur Specific [place] Urine Protein Urine Glucose (UA) Urine Ketones Urine Blood Urine Nitrate Urine Bilirubin Urine Urobilinogen Ur Leukocyte Esterase Urine RBC (Auto) Urine Microscopic WBC Amorphous Sediment Urine Bacteria Urine Osmolality Ur Random Sodium Ur Random Potassium Alcohol, Quantitative < 10 C. difficile Ag & Toxin 09/14/17 09/14/17 09/15/17 22:33 23:39 04:20 WBC 14.6 H RBC 3.93 Hgb 10.6 L D Hct 33.1 L MCV 84.3 D MCH 27.1 MCHC 32.1 L RDW 13.1 Plt Count 334 MPV 7.6 Neut % (Auto) 82.8 H Lymph % (Auto) 9.3 L [place] % (Auto) 7.8 Eos % (Auto) 0.0 Baso % (Auto) 0.1 Neut # (Auto) 12.1 H Lymph # (Auto) 1.3 [place] # (Auto) 1.1 H Eos # (Auto) 0.0 Baso # (Auto) 0.0 Neutrophils % (Manual) Band Neutrophils % Lymphocytes % (Manual) Reactive Lymphs % Monocytes % (Manual) Toxic Granulation Platelet Estimate Anisocytosis (manual) [place] Cells PT INR APTT pO2 VBG pH VBG pCO2 VBG HCO3 VBG Total CO2 VBG O2 Sat (Calc) VBG Base Excess VBG Potassium Sodium Chloride Glucose Lactate FiO2 Crit Value Called To Crit Value Called By Crit Value Read Back Blood Gas Notified Time Potassium Carbon Dioxide Anion Gap BUN Creatinine Est GFR ( Amer) Est GFR (Non-Af Amer) POC Glucose (mg/dL) 334 H Random Glucose Hemoglobin A1c Lactic Acid Calcium Phosphorus Magnesium Total Bilirubin AST ALT Alkaline Phosphatase Troponin I Total Protein Albumin Globulin Albumin/Globulin Ratio Lipase Procalcitonin Venous Blood Potassium Urine Color Urine Clarity Urine pH Ur Specific [place] Urine Protein Urine Glucose (UA) Urine Ketones Urine Blood Urine Nitrate Urine Bilirubin Urine Urobilinogen Ur Leukocyte Esterase Urine RBC (Auto) Urine Microscopic WBC Amorphous Sediment Urine Bacteria Urine Osmolality Ur Random Sodium Ur Random Potassium Alcohol, Quantitative C. difficile Ag & Toxin Positive antigen 09/15/17 09/15/17 09/15/17 04:20 04:20 04:20 WBC RBC Hgb Hct MCV MCH MCHC RDW Plt Count MPV Neut % (Auto) Lymph % (Auto) [place] % (Auto) Eos % (Auto) Baso % (Auto) Neut # (Auto) Lymph # (Auto) [place] # (Auto) Eos # (Auto) Baso # (Auto) Neutrophils % (Manual) Band Neutrophils % Lymphocytes % (Manual) Reactive Lymphs % Monocytes % (Manual) Toxic Granulation Platelet Estimate Anisocytosis (manual) [place] Cells PT INR APTT pO2 VBG pH VBG pCO2 VBG HCO3 VBG Total CO2 VBG O2 Sat (Calc) VBG Base Excess VBG Potassium Sodium 138 Chloride 105 Glucose Lactate FiO2 Crit Value Called To Crit Value Called By Crit Value Read Back Blood Gas Notified Time Potassium 5.1 H Carbon Dioxide 13 L Anion Gap 25 H BUN 118 H* Creatinine 7.5 H* Est GFR ( Amer) 6 Est GFR (Non-Af Amer) 5 POC Glucose (mg/dL) Random Glucose 265 H Hemoglobin A1c 12.0 H Lactic Acid Calcium 8.2 L Phosphorus 6.9 H Magnesium Total Bilirubin 0.3 AST 35 ALT 29 Alkaline Phosphatase 98 Troponin I 0.2070 H* Total Protein 5.8 L Albumin 2.8 L Globulin 3.0 Albumin/Globulin Ratio 0.9 L Lipase Procalcitonin Venous Blood Potassium Urine Color Urine Clarity Urine pH Ur Specific Worth Urine Protein Urine Glucose (UA) Urine Ketones Urine Blood Urine Nitrate Urine Bilirubin Urine Urobilinogen Ur Leukocyte Esterase Urine RBC (Auto) Urine Microscopic WBC Amorphous Sediment Urine Bacteria Urine Osmolality Ur Random Sodium Ur Random Potassium Alcohol, Quantitative C. difficile Ag & Toxin 09/15/17 09/15/17 09/15/17 05:30 05:40 06:12 WBC RBC Hgb Hct MCV MCH MCHC RDW Plt Count MPV Neut % (Auto) Lymph % (Auto) [place] % (Auto) Eos % (Auto) Baso % (Auto) Neut # (Auto) Lymph # (Auto) [place] # (Auto) Eos # (Auto) Baso # (Auto) Neutrophils % (Manual) Band Neutrophils % Lymphocytes % (Manual) Reactive Lymphs % Monocytes % (Manual) Toxic Granulation Platelet Estimate Anisocytosis (manual) Colette Cells PT INR APTT pO2 18 L VBG pH 7.24 L VBG pCO2 31 L VBG HCO3 12.8 VBG Total CO2 14.3 L VBG O2 Sat (Calc) 39.0 L VBG Base Excess -12.8 L VBG Potassium 5.5 H Sodium 130.0 L Chloride 107.0 Glucose 265 H Lactate 1.5 FiO2 21.0 Crit Value Called To Crit Value Called By Crit Value Read Back Blood Gas Notified Time Potassium Carbon Dioxide Anion Gap BUN Creatinine Est GFR ( Amer) Est GFR (Non-Af Amer) POC Glucose (mg/dL) 233 H Random Glucose Hemoglobin A1c Lactic Acid 0.9 Calcium Phosphorus Magnesium Total Bilirubin AST ALT Alkaline Phosphatase Troponin I Total Protein Albumin Globulin Albumin/Globulin Ratio Lipase Procalcitonin Venous Blood Potassium 5.5 H Urine Color Urine Clarity Urine pH Ur Specific Worth Urine Protein Urine Glucose (UA) Urine Ketones Urine Blood Urine Nitrate Urine Bilirubin Urine Urobilinogen Ur Leukocyte Esterase Urine RBC (Auto) Urine Microscopic WBC Amorphous Sediment Urine Bacteria Urine Osmolality Ur Random Sodium Ur Random Potassium Alcohol, Quantitative C. difficile Ag & Toxin 09/15/17 11:23 WBC RBC Hgb Hct MCV MCH MCHC RDW Plt Count MPV Neut % (Auto) Lymph % (Auto) [place] % (Auto) Eos % (Auto) Baso % (Auto) Neut # (Auto) Lymph # (Auto) [place] # (Auto) Eos # (Auto) Baso # (Auto) Neutrophils % (Manual) Band Neutrophils % Lymphocytes % (Manual) Reactive Lymphs % Monocytes % (Manual) Toxic Granulation Platelet Estimate Anisocytosis (manual) [place] Cells PT INR APTT pO2 VBG pH VBG pCO2 VBG HCO3 VBG Total CO2 VBG O2 Sat (Calc) VBG Base Excess VBG Potassium Sodium Chloride Glucose Lactate FiO2 Crit Value Called To Crit Value Called By Crit Value Read Back Blood Gas Notified Time Potassium Carbon Dioxide Anion Gap BUN Creatinine Est GFR ( Amer) Est GFR (Non-Af Amer) POC Glucose (mg/dL) Random Glucose Hemoglobin A1c Lactic Acid Calcium Phosphorus Magnesium Total Bilirubin AST ALT Alkaline Phosphatase Troponin I 0.2090 H* Total Protein Albumin Globulin Albumin/Globulin Ratio Lipase Procalcitonin Venous Blood Potassium Urine Color Urine Clarity Urine pH Ur Specific Worth Urine Protein Urine Glucose (UA) Urine Ketones Urine Blood Urine Nitrate Urine Bilirubin Urine Urobilinogen Ur Leukocyte Esterase Urine RBC (Auto) Urine Microscopic WBC Amorphous Sediment Urine Bacteria Urine Osmolality Ur Random Sodium Ur Random Potassium Alcohol, Quantitative C. difficile Ag & Toxin Microbiology 06/01/17 18:10 Urine,Clean Catch Urine Culture - Final No Growth (<1,000 CFU/ML) 05/29/17 14:42 Urine,Clean Catch Urine Culture - Final No Growth (<1,000 CFU/ML) 05/15/17 13:40 Blood Blood Culture - Final 05/15/17 13:40 Blood Gram Stain - Final NO GROWTH AFTER 5 DAYS TEST NOT PERFORMED 05/14/17 15:33 Urine,Adams Urine Culture - Final Yeast Species 05/14/17 08:35 Blood Blood Culture - Final 05/14/17 08:35 Blood Gram Stain - Final NO GROWTH AFTER 5 DAYS TEST NOT PERFORMED 05/13/17 12:00 Urine,Adams Urine Culture - Final Yeast Species 05/13/17 12:00 Blood Blood Culture - Final 05/13/17 12:00 Blood Gram Stain - Final NO GROWTH AFTER 5 DAYS TEST NOT PERFORMED Accession No. : [id number] Patient Name / ID : SUMMER DHILLON / [id number] Exam Date : 09/14/2017 16:55:21 ( Approved ) Study Comment : Sex / Age : F / 77Y Creator : Quique Xiong MD Dictator : Quique Xiong MD Commercial Front Load Driver : Individualized Education Plan Aide : Quique Xiong MD Approver2 : Report Date : 09/14/2017 17:24:05 My Comment : HISTORY: Sepsis Patient COMPARISON: 05/08/2017 FINDINGS: LUNGS: No active pulmonary disease. PLEURA: No significant pleural effusion identified, no pneumothorax apparent. CARDIOVASCULAR: No radiographic findings to suggest acute or significant cardiovascular disease. OSSEOUS STRUCTURES: No significant abnormalities. VISUALIZED UPPER ABDOMEN: Normal. OTHER FINDINGS: None. IMPRESSION: No active disease. No significant interval change compared to the prior examination(s). Accession No. : [id number] Patient Name / ID : SUMMER DHILLON / [id number] Exam Date : 09/14/2017 21:19:44 ( Approved ) Study Comment : Sex / Age : F / 77Y Creator : Lydia Bland Dictator : Commercial Front Load Driver : Individualized Education Plan Aide : Lydia Bland Approver2 : Report Date : 09/14/2017 22:36:00 My Comment : [facility] Division of Radiology [address] [facility] [address] Tel. no. Patient Name: ALEJO WHEELER Pt. Address: [address] [place] [address] Rec #: [id number] [place] [address]: MD Moses Newell Pt CELL Order Location: [facility]IE : 1940 Female Age: 77 Order #: [id number] Reason for exam: Abdominal pain/diarrhea/mild rebound tenderness CT Scan ABD PELVIS W/O PO OR IV CONT Exam Date: 09/14/17 This imaging exam was performed at [facility] EXAM: CT Abdomen and Pelvis Without Intravenous Contrast EXAM DATE/TIME: 09/14/2017 8:44 PM CLINICAL HISTORY: 77 years old, female; Pain and signs and symptoms; Nausea and vomiting and other: Diarrhea; Abdominal pain; Generalized; Additional info: Abdominal pain/diarrhea/mild rebound tenderness. Sent phy. Doc. TECHNIQUE: Axial computed tomography images of the abdomen and pelvis without intravenous contrast. All CT scans at this facility use one or more dose reduction techniques, viz.: automated exposure control; ma/kV adjustment per patient size (including targeted exams where dose is matched to indication; i.e. head); or iterative reconstruction technique. Coronal and sagittal reformatted images were created and reviewed. COMPARISON: CT - ABD PELVIS W/O PO OR IV CONT 2017-05-09 00:10 FINDINGS: The liver, spleen, gallbladder and pancreas appear grossly normal on this non-contrast study. Again seen is severe bilateral hydronephrosis and hydroureter. Since the prior study, there has been placement of bilateral ureteral stents with proximal tips in the renal pelves and distal tips in the urinary bladder. There is trace bilateral perinephric stranding unchanged. Again seen is bilateral renal parenchymal loss. The wall of the urinary bladder is thickened and indistinct and there is haziness in the surrounding fat likely representing cystitis. Left-sided urinary bladder diverticuli is noted. Stable bilateral adrenal thickening. Colonic diverticulosis is present. The appendix is identified on axial images 116 through 123. It measures up to 6 mm in diameter and is filled with fluid however is unchanged from prior. Uterus has been surgically removed. Again seen is a large cystic mass in the right adnexa measuring approximately 4 x 5 cm unchanged. Again seen is a 1.5 cm left adnexal cyst. IMPRESSION: Placement of bilateral ureteral stents since prior. Otherwise no significant change. Again seen is bilateral hydronephrosis, hydroureter, renal parenchymal loss. Findings suggestive of cystitis.Recommend correlation with urinalysis. Large right adnexal cystic mass similar to prior. Dictated By: Lydia Bland MD Dictated Date/Time: 09/14/172235 Signed By: Lydia Bland MD Date Signed: [id number] Transcribed By: CHRISTIAN Transcribe Date/Time : 09/14/172235 PMLP01/AARON Assessment & Plan (1) Severe sepsis Status: Acute (2) Acute on chronic renal failure Status: Acute (3) UTI (urinary tract infection) Status: Acute (4) Clostridium difficile diarrhea Status: Resolved (5) Hydronephrosis Status: Acute (6) Retained ureteral stent Status: Acute - Assessment and Plan (Free Text) Assessment: A/P- 77 y/o female with HTN, uncontrolled DM II, acute on chronic renal disease, retained b/l uretreal stents for hydronephrosis. afebrile Leukocytosis + UA acute on chronic renal insufficiency high lactate , now has normalized on bicarb drip and antibiotics. source of the infection and sepsis most likely the retained ureteral stents and laso positive c.diff associated diarrhea. 1. sepsis 2.hydronephrosis s/p ureterals tents for past 4 months 3.uncontrolled diabetes 4. acute on chronic renal disease 5.c.diff associated diarrhea PLan- check blood cx x 2. await urine cx. would advsie to have uretearl stent removed or replaced soona s possible. check 2 more stool c.diff ag and Toxin. check stool culture as well. advise to continue with the oral vancomycin for the c.diff associated diarrhea. advise to d/c levaquin. advise to place on broader gram neg coverage for coverage ( renal dose) since pt. has b/tents (foreing body ) in place and needs stronger abx coverage. place on probiotics as well. await and renal evaluations as well. all the labs , imaging and med record notes reviewed. above all d/w patient at length and she verbalizes full understanding of all above. Thank you for allowing me to take part in the care of this patient. ICU time 60 minutes.
--- NOTE | 2017-09-15 12:11 | CP.PCM.PN ---
Subjective - Date & Time of Evaluation Date of Evaluation: 09/15/17 Time of Evaluation: 08:30 - Subjective Subjective: Patient seen and examined at bedside. Patient has no specific complaints. Patient would like to eat food. Objective - Vital Signs/Intake and Output Vital Signs (last 24 hours): Temp Pulse Resp BP Pulse Ox 97.6 F 96 H 21 108/65 100 09/15/17 08:00 09/15/17 09:00 09/15/17 09:00 09/15/17 09:00 09/15/17 09:00 Intake and Output: 09/15/17 09/15/17 06:59 18:59 Intake Total 1600 Output Total 50 Balance 1550 - Medications Medications: Current Medications Albuterol/Ipratropium (Duoneb 3 Mg/0.5 Mg (3 Ml) Ud) 3 ml INH RQ6 PRN PRN Reason: Shortness of Breath Dextrose (Dextrose 50% Inj) 0 ml IV STAT PRN; Protocol PRN Reason: Hypoglycemia Protocol Dextrose (Glutose 15) 0 gm PO ONCE PRN; Protocol PRN Reason: Hypoglycemia Protocol Famotidine (Pepcid) 20 mg PO DAILY [facility] Last Admin: 09/15/17 09:02 Dose: 20 mg Glucagon (Glucagen Diagnostic Kit) 0 mg IM STAT PRN; Protocol PRN Reason: Hypoglycemia Protocol Heparin Sodium (Porcine) (Heparin) 5,000 units SC Q12 [place] PRN Reason: Protocol Last Admin: 09/15/17 08:58 Dose: Not Given Sodium Bicarbonate 150 meq/ (Dextrose) 1,150 mls @ 75 mls/hr IV .[id number] [facility] Stop: 09/16/17 07:48 Last Admin: 09/15/17 09:42 Dose: 75 mls/hr Insulin Human Lispro (Humalog) 0 units SC Q6H [place] PRN Reason: Protocol Last Admin: 09/15/17 08:59 Dose: 3 units Levofloxacin (Levaquin) 500 mg PO Q48H [place] PRN Reason: Protocol Stop: 09/20/17 08:16 Last Admin: 09/15/17 09:42 Dose: 500 mg Sodium Bicarbonate (Sodium Bicarbonate Tab) 650 mg PO Q6 [facility] Last Admin: 09/15/17 09:43 Dose: 650 mg Vancomycin HCl (Vancocin (Oral/Rectal Use)) 500 mg PO Q6 [place] PRN Reason: Protocol Stop: 09/29/17 10:01 Last Admin: 09/15/17 09:42 Dose: 500 mg - Labs Labs: 09/15/17 04:20 09/15/17 04:20 PT 11.0 Seconds (9.8-13.1) 09/14/17 17:01 INR 1.0 (0.9-1.2) 09/14/17 17:01 APTT 31.5 Seconds (25.6-37.1) 09/14/17 17:01 - Constitutional Appears: Non-toxic, No Acute Distress - Head Exam Head Exam: ATRAUMATIC, NORMAL INSPECTION, NORMOCEPHALIC - Eye Exam Eye Exam: Normal appearance Pupil Exam: NORMAL ACCOMODATION - Neck Exam Neck Exam: Normal Inspection - Respiratory Exam Respiratory Exam: Clear to Ausculation Bilateral, NORMAL BREATHING PATTERN - Cardiovascular Exam Cardiovascular Exam: REGULAR RHYTHM, +S1, +S2, +S4, Murmur - GI/Abdominal Exam GI & Abdominal Exam: Normal Bowel Sounds - Extremities Exam Extremities Exam: Normal Capillary Refill, Normal Inspection Assessment and Plan - Assessment and Plan (Free Text) Assessment: PAtient with h/o CKD (refusing HD) presents to Er with nausea/vomitting and diarrhea. Patient has h/o CKD with b/l J-J stent placement last may and failed to follow up for removal -Dehydration: continue IVF with bicarb ggt -CKD with severe metabolic acidosis: avoid nephrotoxic drugs, continue gentle hydration, check phosporus, PTH and check UA, nephrology eval, calcitriol -Sepsis: suspect gastroenteritis: suspect previously being treated for UTI, now with C. diff, (severity high), contact isolation, start oral vanco -Type II myocardial infarction: at risk of cad, will benefit from asa, statin and av kavon jame as tolerated, EKG, cardiology follow up -UA/?UTi/complex UTI: (+)WBC, no nitrate, not dysuria, culture pending, short course of ABX, d/c clay -Anemia: suspect 2nd anemia of chronic disease, check occult blood, iron profile -Patient's BP much improved not requiring Presors, d/c central line -continue DVT/PUD ppx Prognosis poor as patient is refusing HD. Risks, benefits and alternatives explained including worsening acidosis, uremia , and possible . Patient verbalized understanding.
[2017-09-15] MEDS ORDERED: Sod Polystyrene Sulf 15 gm/60 ml Susp PO ONE (12:16)
--- NOTE | 2017-09-15 13:30 | CARD ---
APPROVED REPORT EKG Measurement Heart [id number] <Conclusion> Sinus tachycardia ST & T wave abnormality, consider inferolateral ischemia Abnormal ECG
--- NOTE | 2017-09-15 13:32 | CARD ---
APPROVED REPORT EKG Measurement Heart [id number] 236P [id number] <Conclusion> Sinus rhythm with 1st degree AV bloc Suspect arm leads reversal Please repeat. Abnormal ECG
[2017-09-15 16:30] LABS: CALCIUM 7.9 mg/dL (8.4-10.2)
[2017-09-15] MEDS: Cefepime 1 GM in Sodium Chloride 0.9% 100 ML IVPB SCH (17:03)
[2017-09-16] MEDS: Insulin Lispro (humaLOG) 100 Units/ml Inj SC SCH ×4 (02:59→21:45)
[2017-09-16] MEDS: Vancomycin 500 mg (Oral/Rectal USE) PO SCH ×4 (04:30→21:46)
[2017-09-16] MEDS: Sodium Bicarbonate 8.4% 150 MEQ in Dextrose 5% In Water 1,000 ML IV SCH (05:36)
[2017-09-16 08:05] LABS: BASO % 0.2 % (0.0-2.0); EOS # 0.1 K/uL (0.0-0.7); EOS % 1.2 % (0.0-4.0); LYMPH # 1.9 K/uL (1.0-4.3); LYMPH % 18.5 % (20.0-40.0); MEAN CELL VOLUME 83.3 fl (81.0-99.0); MEAN CORPUSCULAR HEMOGLOBIN 27.5 pg (27.0-31.0); MEAN CORPUSCULAR HGB CONC 33.1 g/dL (33.0-37.0); MEAN PLATELET VOLUME 7.5 fl (7.2-11.7); MONO # 0.7 K/uL (0.0-0.8); MONO % 6.6 % (0.0-10.0); NEUT # 7.5 K/uL (1.8-7.0); NEUT % 73.5 % (50.0-75.0); NRBC % 0.1 % (0.0-0.0); RBC 3.64 Mil/uL (3.80-5.20); RED CELL DISTRIBUTION WIDTH 13.4 % (11.5-14.5); WHITE BLOOD COUNT 10.2 K/uL (4.8-10.8)
[2017-09-16 08:24] LABS: ALB/GLOB RATIO 0.9 (1.0-2.1); ALBUMIN 2.6 g/dL (3.5-5.0); CALCIUM 7.6 mg/dL (8.4-10.2)
[2017-09-16] MEDS: Cefepime 1 GM in Sodium Chloride 0.9% 100 ML IVPB SCH (10:06)
--- NOTE | 2017-09-16 12:20 | CARD ---
APPROVED REPORT EKG Measurement Heart [id number] IN [id number] <Conclusion> Normal sinus rhythm Low voltage QRS ST & T wave abnormality, consider lateral ischemia Abnormal ECG
--- NOTE | 2017-09-16 12:45 | CP.PCM.PN ---
Subjective - Date & Time of Evaluation Date of Evaluation: 09/16/17 Time of Evaluation: 13:49 - Subjective Subjective: ID Note- Pt. seen and examined today in Tele floor. pt. denies any fever or chills. she states she ate her breakfast. she states she still has slight abdominal discomfort pain but less than before, had diarrhea x 1 today. denies any dysurea. Objective - Vital Signs/Intake and Output Vital Signs (last 24 hours): Temp Pulse Resp BP Pulse Ox 97.2 F L 93 H 18 104/69 95 09/16/17 12:27 09/16/17 12:27 09/16/17 12:27 09/16/17 12:27 09/16/17 12:27 Intake and Output: 09/16/17 09/16/17 06:59 18:59 Intake Total 840 Balance 840 - Medications Medications: Current Medications Albuterol/Ipratropium (Duoneb 3 Mg/0.5 Mg (3 Ml) Ud) 3 ml INH RQ6 PRN PRN Reason: Shortness of Breath Atorvastatin Calcium (Lipitor) 10 mg PO DAILY [facility] Last Admin: 09/16/17 10:06 Dose: 10 mg Dextrose (Dextrose 50% Inj) 0 ml IV STAT PRN; Protocol PRN Reason: Hypoglycemia Protocol Dextrose (Glutose 15) 0 gm PO ONCE PRN; Protocol PRN Reason: Hypoglycemia Protocol Famotidine (Pepcid) 20 mg PO DAILY [facility] Last Admin: 09/16/17 10:06 Dose: 20 mg Glucagon (Glucagen Diagnostic Kit) 0 mg IM STAT PRN; Protocol PRN Reason: Hypoglycemia Protocol Heparin Sodium (Porcine) (Heparin) 5,000 units SC Q12 [place] PRN Reason: Protocol Last Admin: 09/16/17 10:04 Dose: 5,000 units Cefepime HCl 1 gm/ Sodium (Chloride) 100 mls @ 100 mls/hr IVPB DAILY [place] PRN Reason: Protocol Last Admin: 09/16/17 10:06 Dose: 100 mls/hr Insulin Human Lispro (Humalog) 0 units SC Q6H [place] PRN Reason: Protocol Last Admin: 09/16/17 10:05 Dose: 2 units Ondansetron HCl (Zofran Inj) 4 mg IVP Q6 PRN PRN Reason: Nausea/Vomiting Last Admin: 09/16/17 06:14 Dose: 4 mg Sodium Bicarbonate (Sodium Bicarbonate Tab) 650 mg PO Q6 [facility] Last Admin: 09/16/17 10:06 Dose: 650 mg Vancomycin HCl (Vancocin (Oral/Rectal Use)) 500 mg PO Q6 [facility] PRN Reason: Protocol Stop: 09/29/17 10:01 Last Admin: 09/16/17 10:07 Dose: 500 mg - Labs Labs: - Additional Findings Additional findings: - Constitutional Appears: No Acute Distress Laboratory Results - last 72 hr 09/14/17 09/14/17 09/14/17 17:00 17:01 17:01 WBC 22.0 H D RBC 5.06 Hgb 13.8 D Hct 44.2 MCV 87.3 D MCH 27.3 MCHC 31.3 L RDW 14.3 Plt Count 418 H D MPV 8.0 Neut % (Auto) 94.4 H Lymph % (Auto) 1.9 L [place] % (Auto) 3.6 Eos % (Auto) 0.0 Baso % (Auto) 0.1 Neut # (Auto) 20.7 H Lymph # (Auto) 0.4 L [place] # (Auto) 0.8 Eos # (Auto) 0.0 Baso # (Auto) 0.0 Neutrophils % (Manual) 88 H Band Neutrophils % 3 H Lymphocytes % (Manual) 5 L Reactive Lymphs % 1 H Monocytes % (Manual) 3 Toxic Granulation Present Platelet Estimate Normal Anisocytosis (manual) Slight [place] Cells Slight PT INR APTT pO2 37 VBG pH 6.99 L* VBG pCO2 18 L* VBG HCO3 4.2 VBG Total CO2 4.9 L VBG O2 Sat (Calc) 76.7 H VBG Base Excess -25.6 L VBG Potassium 8.7 H* Sodium 124.0 L 132 Chloride 97.0 L 99 Glucose 269 H Lactate 2.1 FiO2 21.0 Crit Value Called To Dr rosalia masters Crit Value Called By Rt Crit Value Read Back Y Blood Gas Notified Time 1716 Potassium 8.5 H* D Carbon Dioxide < 5 L* D Anion Gap 37 H BUN 132 H* D Creatinine 10.3 H* D Est GFR ( Amer) 4 Est GFR (Non-Af Amer) 4 POC Glucose (mg/dL) Random Glucose 250 H Hemoglobin A1c Lactic Acid Calcium 9.5 Phosphorus 11.4 H Magnesium 3.1 H Total Bilirubin 0.4 AST 33 ALT 23 Alkaline Phosphatase 153 H D Troponin I 0.1940 H* Total Protein 8.0 Albumin 4.1 Globulin 3.9 Albumin/Globulin Ratio 1.0 Lipase Procalcitonin Venous Blood Potassium 8.7 H* Urine Color Urine Clarity Urine pH Ur Specific [place] Urine Protein Urine Glucose (UA) Urine Ketones Urine Blood Urine Nitrate Urine Bilirubin Urine Urobilinogen Ur Leukocyte Esterase Urine RBC (Auto) Urine Microscopic WBC Amorphous Sediment Urine Bacteria Urine Osmolality Ur Random Sodium Ur Random Potassium Stool Occult Blood Stool Leukocytes, Qual Alcohol, Quantitative C. difficile Ag & Toxin 09/14/17 09/14/17 09/14/17 17:01 17:01 19:05 WBC RBC Hgb Hct MCV MCH MCHC RDW Plt Count MPV Neut % (Auto) Lymph % (Auto) [place] % (Auto) Eos % (Auto) Baso % (Auto) Neut # (Auto) Lymph # (Auto) [place] # (Auto) Eos # (Auto) Baso # (Auto) Neutrophils % (Manual) Band Neutrophils % Lymphocytes % (Manual) Reactive Lymphs % Monocytes % (Manual) Toxic Granulation Platelet Estimate Anisocytosis (manual) [place] Cells PT 11.0 INR 1.0 APTT 31.5 pO2 VBG pH VBG pCO2 VBG HCO3 VBG Total CO2 VBG O2 Sat (Calc) VBG Base Excess VBG Potassium Sodium 135 Chloride 103 Glucose Lactate FiO2 Crit Value Called To Crit Value Called By Crit Value Read Back Blood Gas Notified Time Potassium 5.9 H Carbon Dioxide 6 L* D Anion Gap 32 H BUN 126 H* Creatinine 8.8 H* Est GFR ( Amer) 5 Est GFR (Non-Af Amer) 4 POC Glucose (mg/dL) Random Glucose 312 H Hemoglobin A1c Lactic Acid Calcium 8.5 Phosphorus Magnesium Total Bilirubin 0.4 AST 29 ALT 25 Alkaline Phosphatase 107 Troponin I Total Protein 6.2 L Albumin 3.0 L D Globulin 3.2 Albumin/Globulin Ratio 0.9 L Lipase Procalcitonin Venous Blood Potassium Urine Color [place] Urine Clarity Turbid Urine pH 6.0 Ur Specific [place] 1.013 Urine Protein >=500 Urine Glucose (UA) Neg Urine Ketones Trace Urine Blood Moderate Urine Nitrate Negative Urine Bilirubin Negative Urine Urobilinogen 0.2-1.0 Ur Leukocyte Esterase Large Urine RBC (Auto) 5 H Urine Microscopic WBC 10 H Amorphous Sediment Rare H Urine Bacteria Rare Urine Osmolality Ur Random Sodium Ur Random Potassium Stool Occult Blood Stool Leukocytes, Qual Alcohol, Quantitative C. difficile Ag & Toxin 09/14/17 09/14/17 09/14/17 19:37 19:43 20:09 WBC RBC Hgb Hct MCV MCH MCHC RDW Plt Count MPV Neut % (Auto) Lymph % (Auto) [place] % (Auto) Eos % (Auto) Baso % (Auto) Neut # (Auto) Lymph # (Auto) [place] # (Auto) Eos # (Auto) Baso # (Auto) Neutrophils % (Manual) Band Neutrophils % Lymphocytes % (Manual) Reactive Lymphs % Monocytes % (Manual) Toxic Granulation Platelet Estimate Anisocytosis (manual) [place] Cells PT INR APTT pO2 VBG pH VBG pCO2 VBG HCO3 VBG Total CO2 VBG O2 Sat (Calc) VBG Base Excess VBG Potassium Sodium Chloride Glucose Lactate FiO2 Crit Value Called To Crit Value Called By Crit Value Read Back Blood Gas Notified Time Potassium Carbon Dioxide Anion Gap BUN Creatinine Est GFR ( Amer) Est GFR (Non-Af Amer) POC Glucose (mg/dL) 290 H Random Glucose Hemoglobin A1c Lactic Acid Calcium Phosphorus Magnesium Total Bilirubin AST ALT Alkaline Phosphatase Troponin I Total Protein Albumin Globulin Albumin/Globulin Ratio Lipase Procalcitonin 0.25 Venous Blood Potassium Urine Color Urine Clarity Urine pH Ur Specific [place] Urine Protein Urine Glucose (UA) Urine Ketones Urine Blood Urine Nitrate Urine Bilirubin Urine Urobilinogen Ur Leukocyte Esterase Urine RBC (Auto) Urine Microscopic WBC Amorphous Sediment Urine Bacteria Urine Osmolality 424 Ur Random Sodium 167 Ur Random Potassium 14.6 Stool Occult Blood Stool Leukocytes, Qual Alcohol, Quantitative C. difficile Ag & Toxin 09/14/17 09/14/17 09/14/17 20:33 21:00 21:40 WBC RBC Hgb Hct MCV MCH MCHC RDW Plt Count MPV Neut % (Auto) Lymph % (Auto) [place] % (Auto) Eos % (Auto) Baso % (Auto) Neut # (Auto) Lymph # (Auto) [place] # (Auto) Eos # (Auto) Baso # (Auto) Neutrophils % (Manual) Band Neutrophils % Lymphocytes % (Manual) Reactive Lymphs % Monocytes % (Manual) Toxic Granulation Platelet Estimate Anisocytosis (manual) [place] Cells PT INR APTT pO2 39 VBG pH 7.09 L* VBG pCO2 20 L VBG HCO3 6.5 VBG Total CO2 6.7 L VBG O2 Sat (Calc) VBG Base Excess -22.0 L VBG Potassium 7.2 H* Sodium 130.0 L Chloride 100.0 Glucose 358 H Lactate 2.5 H FiO2 21.0 Crit Value Called To Wayne coughlin Crit Value Called By Rt Crit Value Read Back Y Blood Gas Notified Time 2109 Potassium Carbon Dioxide Anion Gap BUN Creatinine Est GFR ( Amer) Est GFR (Non-Af Amer) POC Glucose (mg/dL) 282 H Random Glucose Hemoglobin A1c Lactic Acid Calcium Phosphorus Magnesium Total Bilirubin AST ALT Alkaline Phosphatase Troponin I Total Protein Albumin Globulin Albumin/Globulin Ratio Lipase 1170 H Procalcitonin Venous Blood Potassium 7.2 H* Urine Color Urine Clarity Urine pH Ur Specific [place] Urine Protein Urine Glucose (UA) Urine Ketones Urine Blood Urine Nitrate Urine Bilirubin Urine Urobilinogen Ur Leukocyte Esterase Urine RBC (Auto) Urine Microscopic WBC Amorphous Sediment Urine Bacteria Urine Osmolality Ur Random Sodium Ur Random Potassium Stool Occult Blood Stool Leukocytes, Qual Alcohol, Quantitative < 10 C. difficile Ag & Toxin 09/14/17 09/14/17 09/15/17 22:33 23:39 04:20 WBC 14.6 H RBC 3.93 Hgb 10.6 L D Hct 33.1 L MCV 84.3 D MCH 27.1 MCHC 32.1 L RDW 13.1 Plt Count 334 MPV 7.6 Neut % (Auto) 82.8 H Lymph % (Auto) 9.3 L [place] % (Auto) 7.8 Eos % (Auto) 0.0 Baso % (Auto) 0.1 Neut # (Auto) 12.1 H Lymph # (Auto) 1.3 [place] # (Auto) 1.1 H Eos # (Auto) 0.0 Baso # (Auto) 0.0 Neutrophils % (Manual) Band Neutrophils % Lymphocytes % (Manual) Reactive Lymphs % Monocytes % (Manual) Toxic Granulation Platelet Estimate Anisocytosis (manual) [place] Cells PT INR APTT pO2 VBG pH VBG pCO2 VBG HCO3 VBG Total CO2 VBG O2 Sat (Calc) VBG Base Excess VBG Potassium Sodium Chloride Glucose Lactate FiO2 Crit Value Called To Crit Value Called By Crit Value Read Back Blood Gas Notified Time Potassium Carbon Dioxide Anion Gap BUN Creatinine Est GFR ( Amer) Est GFR (Non-Af Amer) POC Glucose (mg/dL) 334 H Random Glucose Hemoglobin A1c Lactic Acid Calcium Phosphorus Magnesium Total Bilirubin AST ALT Alkaline Phosphatase Troponin I Total Protein Albumin Globulin Albumin/Globulin Ratio Lipase Procalcitonin Venous Blood Potassium Urine Color Urine Clarity Urine pH Ur Specific [place] Urine Protein Urine Glucose (UA) Urine Ketones Urine Blood Urine Nitrate Urine Bilirubin Urine Urobilinogen Ur Leukocyte Esterase Urine RBC (Auto) Urine Microscopic WBC Amorphous Sediment Urine Bacteria Urine Osmolality Ur Random Sodium Ur Random Potassium Stool Occult Blood Stool Leukocytes, Qual Alcohol, Quantitative C. difficile Ag & Toxin Positive antigen 09/15/17 09/15/17 09/15/17 04:20 04:20 04:20 WBC RBC Hgb Hct MCV MCH MCHC RDW Plt Count MPV Neut % (Auto) Lymph % (Auto) [place] % (Auto) Eos % (Auto) Baso % (Auto) Neut # (Auto) Lymph # (Auto) [place] # (Auto) Eos # (Auto) Baso # (Auto) Neutrophils % (Manual) Band Neutrophils % Lymphocytes % (Manual) Reactive Lymphs % Monocytes % (Manual) Toxic Granulation Platelet Estimate Anisocytosis (manual) [place] Cells PT INR APTT pO2 VBG pH VBG pCO2 VBG HCO3 VBG Total CO2 VBG O2 Sat (Calc) VBG Base Excess VBG Potassium Sodium 138 Chloride 105 Glucose Lactate FiO2 Crit Value Called To Crit Value Called By Crit Value Read Back Blood Gas Notified Time Potassium 5.1 H Carbon Dioxide 13 L Anion Gap 25 H BUN 118 H* Creatinine 7.5 H* Est GFR ( Amer) 6 Est GFR (Non-Af Amer) 5 POC Glucose (mg/dL) Random Glucose 265 H Hemoglobin A1c 12.0 H Lactic Acid Calcium 8.2 L Phosphorus 6.9 H Magnesium Total Bilirubin 0.3 AST 35 ALT 29 Alkaline Phosphatase 98 Troponin I 0.2070 H* Total Protein 5.8 L Albumin 2.8 L Globulin 3.0 Albumin/Globulin Ratio 0.9 L Lipase Procalcitonin Venous Blood Potassium Urine Color Urine Clarity Urine pH Ur Specific [place] Urine Protein Urine Glucose (UA) Urine Ketones Urine Blood Urine Nitrate Urine Bilirubin Urine Urobilinogen Ur Leukocyte Esterase Urine RBC (Auto) Urine Microscopic WBC Amorphous Sediment Urine Bacteria Urine Osmolality Ur Random Sodium Ur Random Potassium Stool Occult Blood Stool Leukocytes, Qual Alcohol, Quantitative C. difficile Ag & Toxin 0309/15/17 09/15/17 05:30 05:40 06:12 WBC RBC Hgb Hct MCV MCH MCHC RDW Plt Count MPV Neut % (Auto) Lymph % (Auto) [place] % (Auto) Eos % (Auto) Baso % (Auto) Neut # (Auto) Lymph # (Auto) [place] # (Auto) Eos # (Auto) Baso # (Auto) Neutrophils % (Manual) Band Neutrophils % Lymphocytes % (Manual) Reactive Lymphs % Monocytes % (Manual) Toxic Granulation Platelet Estimate Anisocytosis (manual) [place] Cells PT INR APTT pO2 18 L VBG pH 7.24 L VBG pCO2 31 L VBG HCO3 12.8 VBG Total CO2 14.3 L VBG O2 Sat (Calc) 39.0 L VBG Base Excess -12.8 L VBG Potassium 5.5 H Sodium 130.0 L Chloride 107.0 Glucose 265 H Lactate 1.5 FiO2 21.0 Crit Value Called To Crit Value Called By Crit Value Read Back Blood Gas Notified Time Potassium Carbon Dioxide Anion Gap BUN Creatinine Est GFR ( Amer) Est GFR (Non-Af Amer) POC Glucose (mg/dL) 233 H Random Glucose Hemoglobin A1c Lactic Acid 0.9 Calcium Phosphorus Magnesium Total Bilirubin AST ALT Alkaline Phosphatase Troponin I Total Protein Albumin Globulin Albumin/Globulin Ratio Lipase Procalcitonin Venous Blood Potassium 5.5 H Urine Color Urine Clarity Urine pH Ur Specific [place] Urine Protein Urine Glucose (UA) Urine Ketones Urine Blood Urine Nitrate Urine Bilirubin Urine Urobilinogen Ur Leukocyte Esterase Urine RBC (Auto) Urine Microscopic WBC Amorphous Sediment Urine Bacteria Urine Osmolality Ur Random Sodium Ur Random Potassium Stool Occult Blood Stool Leukocytes, Qual Alcohol, Quantitative C. difficile Ag & Toxin 09/15/17 09/15/17 09/15/17 09:42 11:23 12:37 WBC RBC Hgb Hct MCV MCH MCHC RDW Plt Count MPV Neut % (Auto) Lymph % (Auto) [place] % (Auto) Eos % (Auto) Baso % (Auto) Neut # (Auto) Lymph # (Auto) [place] # (Auto) Eos # (Auto) Baso # (Auto) Neutrophils % (Manual) Band Neutrophils % Lymphocytes % (Manual) Reactive Lymphs % Monocytes % (Manual) Toxic Granulation Platelet Estimate Anisocytosis (manual) [place] Cells PT INR APTT pO2 VBG pH VBG pCO2 VBG HCO3 VBG Total CO2 VBG O2 Sat (Calc) VBG Base Excess VBG Potassium Sodium Chloride Glucose Lactate FiO2 Crit Value Called To Crit Value Called By Crit Value Read Back Blood Gas Notified Time Potassium Carbon Dioxide Anion Gap BUN Creatinine Est GFR ( Amer) Est GFR (Non-Af Amer) POC Glucose (mg/dL) 294 H Random Glucose Hemoglobin A1c Lactic Acid Calcium Phosphorus Magnesium Total Bilirubin AST ALT Alkaline Phosphatase Troponin I 0.2090 H* Total Protein Albumin Globulin Albumin/Globulin Ratio Lipase Procalcitonin Venous Blood Potassium Urine Color Urine Clarity Urine pH Ur Specific [place] Urine Protein Urine Glucose (UA) Urine Ketones Urine Blood Urine Nitrate Urine Bilirubin Urine Urobilinogen Ur Leukocyte Esterase Urine RBC (Auto) Urine Microscopic WBC Amorphous Sediment Urine Bacteria Urine Osmolality Ur Random Sodium Ur Random Potassium Stool Occult Blood Stool Leukocytes, Qual Negative Alcohol, Quantitative C. difficile Ag & Toxin 09/15/17 09/15/17 09/15/17 14:59 16:01 16:26 WBC RBC Hgb Hct MCV MCH MCHC RDW Plt Count MPV Neut % (Auto) Lymph % (Auto) [place] % (Auto) Eos % (Auto) Baso % (Auto) Neut # (Auto) Lymph # (Auto) [place] # (Auto) Eos # (Auto) Baso # (Auto) Neutrophils % (Manual) Band Neutrophils % Lymphocytes % (Manual) Reactive Lymphs % Monocytes % (Manual) Toxic Granulation Platelet Estimate Anisocytosis (manual) [place] Cells PT INR APTT pO2 VBG pH VBG pCO2 VBG HCO3 VBG Total CO2 VBG O2 Sat (Calc) VBG Base Excess VBG Potassium Sodium 135 Chloride 106 Glucose Lactate FiO2 Crit Value Called To Crit Value Called By Crit Value Read Back Blood Gas Notified Time Potassium 4.4 Carbon Dioxide 16 L Anion Gap 17 BUN 104 H* Creatinine 6.7 H Est GFR ( Amer) 7 Est GFR (Non-Af Amer) 6 POC Glucose (mg/dL) 155 H Random Glucose 168 H Hemoglobin A1c Lactic Acid Calcium 7.9 L Phosphorus Magnesium Total Bilirubin AST ALT Alkaline Phosphatase Troponin I Total Protein Albumin Globulin Albumin/Globulin Ratio Lipase Procalcitonin Venous Blood Potassium Urine Color Urine Clarity Urine pH Ur Specific [place] Urine Protein Urine Glucose (UA) Urine Ketones Urine Blood Urine Nitrate Urine Bilirubin Urine Urobilinogen Ur Leukocyte Esterase Urine RBC (Auto) Urine Microscopic WBC Amorphous Sediment Urine Bacteria Urine Osmolality Ur Random Sodium Ur Random Potassium Stool Occult Blood Positive H Stool Leukocytes, Qual Alcohol, Quantitative C. difficile Ag & Toxin 09/15/17 09/16/17 09/16/17 23:46 06:42 07:24 WBC 10.2 RBC 3.64 L Hgb 10.0 L Hct 30.3 L MCV 83.3 MCH 27.5 MCHC 33.1 RDW 13.4 Plt Count 270 MPV 7.5 Neut % (Auto) 73.5 Lymph % (Auto) 18.5 L [place] % (Auto) 6.6 Eos % (Auto) 1.2 Baso % (Auto) 0.2 Neut # (Auto) 7.5 H Lymph # (Auto) 1.9 [place] # (Auto) 0.7 Eos # (Auto) 0.1 Baso # (Auto) 0.0 Neutrophils % (Manual) Band Neutrophils % Lymphocytes % (Manual) Reactive Lymphs % Monocytes % (Manual) Toxic Granulation Platelet Estimate Anisocytosis (manual) [place] Cells PT INR APTT pO2 VBG pH VBG pCO2 VBG HCO3 VBG Total CO2 VBG O2 Sat (Calc) VBG Base Excess VBG Potassium Sodium Chloride Glucose Lactate FiO2 Crit Value Called To Crit Value Called By Crit Value Read Back Blood Gas Notified Time Potassium Carbon Dioxide Anion Gap BUN Creatinine Est GFR ( Amer) Est GFR (Non-Af Amer) POC Glucose (mg/dL) 177 H 165 H Random Glucose Hemoglobin A1c Lactic Acid Calcium Phosphorus Magnesium Total Bilirubin AST ALT Alkaline Phosphatase Troponin I Total Protein Albumin Globulin Albumin/Globulin Ratio Lipase Procalcitonin Venous Blood Potassium Urine Color Urine Clarity Urine pH Ur Specific [place] Urine Protein Urine Glucose (UA) Urine Ketones Urine Blood Urine Nitrate Urine Bilirubin Urine Urobilinogen Ur Leukocyte Esterase Urine RBC (Auto) Urine Microscopic WBC Amorphous Sediment Urine Bacteria Urine Osmolality Ur Random Sodium Ur Random Potassium Stool Occult Blood Stool Leukocytes, Qual Alcohol, Quantitative C. difficile Ag & Toxin 09/16/17 09/16/17 07:24 11:20 WBC RBC Hgb Hct MCV MCH MCHC RDW Plt Count MPV Neut % (Auto) Lymph % (Auto) [place] % (Auto) Eos % (Auto) Baso % (Auto) Neut # (Auto) Lymph # (Auto) [place] # (Auto) Eos # (Auto) Baso # (Auto) Neutrophils % (Manual) Band Neutrophils % Lymphocytes % (Manual) Reactive Lymphs % Monocytes % (Manual) Toxic Granulation Platelet Estimate Anisocytosis (manual) [place] Cells PT INR APTT pO2 VBG pH VBG pCO2 VBG HCO3 VBG Total CO2 VBG O2 Sat (Calc) VBG Base Excess VBG Potassium Sodium 138 Chloride 104 Glucose Lactate FiO2 Crit Value Called To Crit Value Called By Crit Value Read Back Blood Gas Notified Time Potassium 3.9 Carbon Dioxide 18 L Anion Gap 20 BUN 94 H Creatinine 5.5 H Est GFR ( Amer) 9 Est GFR (Non-Af Amer) 8 POC Glucose (mg/dL) 287 H Random Glucose 175 H Hemoglobin A1c Lactic Acid Calcium 7.6 L Phosphorus Magnesium Total Bilirubin 0.3 AST 27 ALT 26 Alkaline Phosphatase 93 Troponin I Total Protein 5.4 L Albumin 2.6 L Globulin 2.9 Albumin/Globulin Ratio 0.9 L Lipase Procalcitonin Venous Blood Potassium Urine Color Urine Clarity Urine pH Ur Specific [place] Urine Protein Urine Glucose (UA) Urine Ketones Urine Blood Urine Nitrate Urine Bilirubin Urine Urobilinogen Ur Leukocyte Esterase Urine RBC (Auto) Urine Microscopic WBC Amorphous Sediment Urine Bacteria Urine Osmolality Ur Random Sodium Ur Random Potassium Stool Occult Blood Stool Leukocytes, Qual Alcohol, Quantitative C. difficile Ag & Toxin Microbiology 09/15/17 08:27 Naris MRSA Culture (Admit) - Final MRSA NOT DETECTED 09/14/17 17:01 Urine,Clean Catch Urine Culture - Final 50-100,000 CFU/ML. MULTIPLE SPECIES. SUGGEST REPEAT SPECIMEN. 09/14/17 17:13 Blood Blood Culture - Preliminary NO GROWTH AFTER 24 HOURS 09/14/17 17:13 Blood Blood Culture - Preliminary NO GROWTH AFTER 24 HOURS - Head Exam Head Exam: ATRAUMATIC - Eye Exam Eye Exam: EOMI, PERRL - ENT Exam ENT Exam: Normal Oropharynx - Neck Exam Neck exam: Positive for: Full Rom Additional comments: supple - Respiratory Exam Respiratory Exam: Clear to Auscultation Bilateral, NORMAL BREATHING PATTERN - Cardiovascular Exam Cardiovascular Exam: RRR, +S1, +S2 - GI/Abdominal Exam GI & Abdominal Exam: Normal Bowel Sounds, Soft Additional comments: No distention mild tenderness with palpation in lower abd region No guarding, no rebound no CVA tenderness B/L - Extremities Exam Extremities exam: Positive for: pedal edema Additional comments: 2+ edema B/L LE - Neurological Exam Neurological exam: Alert, Oriented x 3 Assessment and Plan (1) Severe sepsis Status: Acute (2) Acute on chronic renal failure Status: Acute (3) UTI (urinary tract infection) Status: Acute (4) Clostridium difficile diarrhea Status: Resolved (5) Hydronephrosis Status: Acute (6) Retained ureteral stent Status: Acute - Assessment and Plan (Free Text) Assessment: A/P- 77 y/o female with HTN, uncontrolled DM II, acute on chronic renal disease, retained b/l uretreal stents for hydronephrosis. clinically improved today. afebrile Leukocytosis has resolved. + UA acute on chronic renal insufficiency, better today blood cx- neg x 2 urine cx- multiple organisms hence most likely contaminant stool c.diff- pos 1. sepsis 2.hydronephrosis s/p ureterals tents for past 4 months 3.uncontrolled diabetes 4. acute on chronic renal disease 5.c.diff associated diarrhea PLan- check clean catch urine cx. would advise to have uretearl stent removed or replaced . check 2 more stool c.diff ag and Toxin. advise to continue with the oral vancomycin for the c.diff associated diarrhea. day #2. advise to continue with IV cefepime ( renal dose) for and UTI coverage, pending repeat urine cx. await and renal evaluations as well. all above d/w patient and she verbalizes full understanding of all above and agrees with above plan of care.
--- NOTE | 2017-09-16 16:15 | CP.PCM.PN ---
Subjective - Date & Time of Evaluation Date of Evaluation: 09/16/17 Time of Evaluation: 09:00 - Subjective Subjective: Pt seen and examined at the bedside this morning. States that her diarrhea as improved. Had 2 episodes of vomiting this morning, medicated with zofran 4mg IVP. Denies fever, chills, abdominal pain. Tolerating diet. Objective - Vital Signs/Intake and Output Vital Signs (last 24 hours): Temp Pulse Resp BP Pulse Ox 98.8 F 85 18 99/62 L 96 09/16/17 16:04 09/16/17 16:04 09/16/17 16:04 09/16/17 16:04 09/16/17 16:04 Intake and Output: 09/16/17 09/16/17 06:59 18:59 Intake Total 840 Balance 840 - Medications Medications: Current Medications Albuterol/Ipratropium (Duoneb 3 Mg/0.5 Mg (3 Ml) Ud) 3 ml INH RQ6 PRN PRN Reason: Shortness of Breath Atorvastatin Calcium (Lipitor) 10 mg PO DAILY [facility] Last Admin: 09/16/17 10:06 Dose: 10 mg Dextrose (Dextrose 50% Inj) 0 ml IV STAT PRN; Protocol PRN Reason: Hypoglycemia Protocol Dextrose (Glutose 15) 0 gm PO ONCE PRN; Protocol PRN Reason: Hypoglycemia Protocol Famotidine (Pepcid) 20 mg PO DAILY [facility] Last Admin: 09/16/17 10:06 Dose: 20 mg Glucagon (Glucagen Diagnostic Kit) 0 mg IM STAT PRN; Protocol PRN Reason: Hypoglycemia Protocol Heparin Sodium (Porcine) (Heparin) 5,000 units SC Q12 [facility] PRN Reason: Protocol Last Admin: 09/16/17 10:04 Dose: 5,000 units Cefepime HCl 1 gm/ Sodium (Chloride) 100 mls @ 100 mls/hr IVPB DAILY [facility] PRN Reason: Protocol Last Admin: 09/16/17 10:06 Dose: 100 mls/hr Insulin Human Lispro (Humalog) 0 units SC Q6H [facility] PRN Reason: Protocol Last Admin: 09/16/17 10:05 Dose: 2 units Ondansetron HCl (Zofran Inj) 4 mg IVP Q6 PRN PRN Reason: Nausea/Vomiting Last Admin: 09/16/17 06:14 Dose: 4 mg Sodium Bicarbonate (Sodium Bicarbonate Tab) 650 mg PO Q6 [facility] Last Admin: 09/16/17 10:06 Dose: 650 mg Vancomycin HCl (Vancocin (Oral/Rectal Use)) 500 mg PO Q6 [facility] PRN Reason: Protocol Stop: 09/29/17 10:01 Last Admin: 09/16/17 10:07 Dose: 500 mg - Labs Labs: 09/16/17 07:24 09/16/17 07:24 PT 11.0 Seconds (9.8-13.1) 09/14/17 17:01 INR 1.0 (0.9-1.2) 09/14/17 17:01 APTT 31.5 Seconds (25.6-37.1) 09/14/17 17:01 - Constitutional Appears: Well, Non-toxic, No Acute Distress - ENT Exam ENT Exam: Mucous Membranes Moist - Respiratory Exam Respiratory Exam: Clear to Ausculation Bilateral. absent: Rales, Wheezes - Cardiovascular Exam Cardiovascular Exam: REGULAR RHYTHM, +S1, +S2. absent: Murmur - GI/Abdominal Exam GI & Abdominal Exam: Soft. absent: Distended, Tenderness - Extremities Exam Extremities Exam: Pedal Edema - Neurological Exam Neurological Exam: Alert, Awake - Skin Skin Exam: Normal Color Assessment and Plan - Assessment and Plan (Free Text) Assessment: 77 yo F, with PMH CKD, DM2, HTN, with hx of poor followup, admitted for sepsis, metabolic acidosis, eletrolyte derangement, and acute on chronic kidney injury. PT no longer septic. Downgraded to Tele. Plan: #UTI -Clinically improved -No fevers, wbc normalized -U/A + on admission -Urine Cx: +50-100k multiple species (likely contaminated)- clean catch sent -Blood Cx : no growth 24 x2 -C/W Levaquine -ID consulted # Diarrhea 2/2 to C Diff - IV hydration - c/w Levaquin/Flagyl 500mg Q8H - C diff: antigen positive- oral vancomycin -F/U Stool Cx - Fecal leukocyte pending - ID consult - Dr. Thomas # Metabolic Acidosis, resolved - No Anion gap - pH: 7.24 on 09/15 - CO2: 18 this am, <5 on admission - IV fluids w/ bicarb - consider d/c based on BMP later today - s/p Sodium Bicarb 650 mg PO Q6 (last admission pt was d/c on sodium bicarb 650 daily)- will refer to nephrology's recommendations -F/u am BMP # Acute Pancreatitis - Lipase: 1120 - IV fluid hydration - FOBT negative - Abd CT: pancreas appears grossly normal # Acute on Chronic Kidney Injury , improving - BUN/Cr this am: 94/5.5 - BUN/Cr on presentation: 132/10.3 - BUN/Cr upon D/C in 05/2017: 43/2.9 - Urine sodium 167 wnl, urine potassium 14.6 wnl, urine osmolality 424 - hx of b/l renal stenting performed in 05/2017 - stents visible on abd CT - Nephrology consult with Dr. Houston # Hyperkalemia, resolved - 3.9 today - Lispro SC Q6H plus correction scale - monitor BMP 4pm # IDDM2 with Hyperglycemia - s/p 5 units Regular insulin in ED - Lispro correction scale, Q6H - accuchecks ACHS - hemoglobin A1C 12.0 # Elevated Troponin - likely 2/2 to NINA - cardiac monitoring # Urinary Tract Infection - large leukocyte esterase, WBCs - Urine culture- contaminated (f/u clean catch) - receiving antibiotics - Abd CT: thickening of wall of urinary bladder, haziness in surrounding fat likely representing cystitis - Adams placed; to be removed this am # Right Adnexal Mass - seen on CT on 2016, again seen on CT on this admission, stable in size # Hypertension -chronic -hypotensive on presentation/normotensive -home meds held -monitor #) Diet - renal diet #) Prophylactic Measures -Protonix 40mg IV QD -Heparin 5000 units Q12H
--- NOTE | 2017-09-16 19:45 | CP.PCM.PN ---
Subjective - Date & Time of Evaluation Date of Evaluation: 09/16/17 Time of Evaluation: 19:43 - Subjective Subjective: creat better k down still refuses hd vss Objective - Vital Signs/Intake and Output Vital Signs (last 24 hours): Temp Pulse Resp BP Pulse Ox 98.8 F 85 18 99/62 L 96 09/16/17 16:04 09/16/17 16:04 09/16/17 16:04 09/16/17 16:04 09/16/17 16:04 Intake and Output: 09/16/17 09/17/17 18:59 07:59 Intake Total 1999 Output Total Balance 1998 - Medications Medications: Current Medications Albuterol/Ipratropium (Duoneb 3 Mg/0.5 Mg (3 Ml) Ud) 3 ml INH RQ6 PRN PRN Reason: Shortness of Breath Atorvastatin Calcium (Lipitor) 10 mg PO DAILY [facility] Last Admin: 09/16/17 10:06 Dose: 10 mg Dextrose (Dextrose 50% Inj) 0 ml IV STAT PRN; Protocol PRN Reason: Hypoglycemia Protocol Dextrose (Glutose 15) 0 gm PO ONCE PRN; Protocol PRN Reason: Hypoglycemia Protocol Famotidine (Pepcid) 20 mg PO DAILY [facility] Last Admin: 09/16/17 10:06 Dose: 20 mg Glucagon (Glucagen Diagnostic Kit) 0 mg IM STAT PRN; Protocol PRN Reason: Hypoglycemia Protocol Heparin Sodium (Porcine) (Heparin) 5,000 units SC Q12 [facility] PRN Reason: Protocol Last Admin: 09/16/17 10:04 Dose: 5,000 units Cefepime HCl 1 gm/ Sodium (Chloride) 100 mls @ 100 mls/hr IVPB DAILY [facility] PRN Reason: Protocol Last Admin: 09/16/17 10:06 Dose: 100 mls/hr Insulin Human Lispro (Humalog) 0 units SC Q6H [facility] PRN Reason: Protocol Last Admin: 09/16/17 14:40 Dose: Not Given Ondansetron HCl (Zofran Inj) 4 mg IVP Q6 PRN PRN Reason: Nausea/Vomiting Last Admin: 09/16/17 16:45 Dose: 4 mg Sodium Bicarbonate (Sodium Bicarbonate Tab) 650 mg PO Q6 [facility] Last Admin: 09/16/17 18:09 Dose: 650 mg Vancomycin HCl (Vancocin (Oral/Rectal Use)) 500 mg PO Q6 [facility] PRN Reason: Protocol Stop: 09/29/17 10:01 Last Admin: 09/16/17 18:09 Dose: 500 mg - Labs Labs: 09/16/17 07:24 09/16/17 07:24 PT 11.0 Seconds (9.8-13.1) 09/14/17 17:01 INR 1.0 (0.9-1.2) 09/14/17 17:01 APTT 31.5 Seconds (25.6-37.1) 09/14/17 17:01 - Constitutional Appears: Non-toxic - Head Exam Head Exam: NORMAL INSPECTION - Eye Exam Eye Exam: Normal appearance - ENT Exam ENT Exam: Mucous Membranes Moist - Respiratory Exam Respiratory Exam: NORMAL BREATHING PATTERN - Cardiovascular Exam Cardiovascular Exam: REGULAR RHYTHM - GI/Abdominal Exam GI & Abdominal Exam: Soft - Extremities Exam Extremities Exam: Normal Inspection - Neurological Exam Neurological Exam: Alert, Awake - Skin Skin Exam: Dry, Warm
[2017-09-17] MEDS ORDERED: Sterile Water 10 ML IV ONE ×2 (05:15→21:43)
[2017-09-17] MEDS: Vancomycin 500 mg (Oral/Rectal USE) PO SCH ×4 (05:17→21:51)
[2017-09-17] MEDS: Insulin Lispro (humaLOG) 100 Units/ml Inj SC SCH ×4 (07:02→22:00)
[2017-09-17 08:19] LABS: BASO % 0.3 % (0.0-2.0); EOS # 0.1 K/uL (0.0-0.7); EOS % 1.8 % (0.0-4.0); HEMOGLOBIN 10.5 g/dL (12.0-16.0); LYMPH # 1.9 K/uL (1.0-4.3); LYMPH % 24.8 % (20.0-40.0); MEAN CELL VOLUME 84.4 fl (81.0-99.0); MEAN CORPUSCULAR HEMOGLOBIN 27.1 pg (27.0-31.0); MEAN CORPUSCULAR HGB CONC 32.2 g/dL (33.0-37.0); MEAN PLATELET VOLUME 7.7 fl (7.2-11.7); MONO # 0.7 K/uL (0.0-0.8); MONO % 9.5 % (0.0-10.0); NEUT # 4.8 K/uL (1.8-7.0); NEUT % 63.6 % (50.0-75.0); RBC 3.88 Mil/uL (3.80-5.20); RED CELL DISTRIBUTION WIDTH 13.7 % (11.5-14.5); WHITE BLOOD COUNT 7.6 K/uL (4.8-10.8)
[2017-09-17 08:30] LABS: CALCIUM 7.6 mg/dL (8.4-10.2)
[2017-09-17] MEDS: Cefepime 1 GM in Sodium Chloride 0.9% 100 ML IVPB SCH (09:01)
--- NOTE | 2017-09-17 10:37 | CP.PCM.PN ---
Subjective - Date & Time of Evaluation Date of Evaluation: 09/17/17 Time of Evaluation: 10:00 - Subjective Subjective: Patient seen and evaluated at bedside; does not report acute events overnight, no new issues and no complaints at this time. States her diarrhea has much improved, 2 episodes overnight. Objective - Vital Signs/Intake and Output Vital Signs (last 24 hours): Temp Pulse Resp BP Pulse Ox 98.2 F 71 20 113/67 99 09/17/17 08:00 09/17/17 08:00 09/17/17 08:00 09/17/17 08:00 09/17/17 08:00 - Medications Medications: Current Medications Albuterol/Ipratropium (Duoneb 3 Mg/0.5 Mg (3 Ml) Ud) 3 ml INH RQ6 PRN PRN Reason: Shortness of Breath Atorvastatin Calcium (Lipitor) 10 mg PO DAILY [facility] Last Admin: 09/17/17 08:59 Dose: 10 mg Dextrose (Dextrose 50% Inj) 0 ml IV STAT PRN; Protocol PRN Reason: Hypoglycemia Protocol Dextrose (Glutose 15) 0 gm PO ONCE PRN; Protocol PRN Reason: Hypoglycemia Protocol Famotidine (Pepcid) 20 mg PO DAILY [facility] Last Admin: 09/17/17 08:59 Dose: 20 mg Glucagon (Glucagen Diagnostic Kit) 0 mg IM STAT PRN; Protocol PRN Reason: Hypoglycemia Protocol Heparin Sodium (Porcine) (Heparin) 5,000 units SC Q12 [place] PRN Reason: Protocol Last Admin: 09/17/17 08:59 Dose: 5,000 units Cefepime HCl 1 gm/ Sodium (Chloride) 100 mls @ 100 mls/hr IVPB DAILY [facility] PRN Reason: Protocol Last Admin: 09/17/17 09:01 Dose: 100 mls/hr Insulin Human Lispro (Humalog) 0 units SC ACHS [facility] PRN Reason: Protocol Last Admin: 09/17/17 07:02 Dose: Not Given Ondansetron HCl (Zofran Inj) 4 mg IVP Q6 PRN PRN Reason: Nausea/Vomiting Last Admin: 09/16/17 16:45 Dose: 4 mg Sodium Bicarbonate (Sodium Bicarbonate Tab) 650 mg PO Q6 [facility] Last Admin: 09/17/17 08:59 Dose: 650 mg Vancomycin HCl (Vancocin (Oral/Rectal Use)) 500 mg PO Q6 [facility] PRN Reason: Protocol Stop: 09/29/17 10:01 Last Admin: 09/17/17 08:59 Dose: 500 mg - Labs Labs: 09/17/17 07:00 09/17/17 07:00 PT 11.0 Seconds (9.8-13.1) 09/14/17 17:01 INR 1.0 (0.9-1.2) 09/14/17 17:01 APTT 31.5 Seconds (25.6-37.1) 09/14/17 17:01 - Constitutional Appears: No Acute Distress - Head Exam Head Exam: ATRAUMATIC - Eye Exam Eye Exam: Normal appearance - ENT Exam ENT Exam: Mucous Membranes Moist - Respiratory Exam Respiratory Exam: Clear to Ausculation Bilateral, NORMAL BREATHING PATTERN - Cardiovascular Exam Cardiovascular Exam: REGULAR RHYTHM, +S1, +S2 - GI/Abdominal Exam GI & Abdominal Exam: Soft, Normal Bowel Sounds. absent: Distended, Tenderness - Extremities Exam Extremities Exam: Pedal Edema - Neurological Exam Neurological Exam: Alert, Awake - Skin Skin Exam: Normal Color Assessment and Plan - Assessment and Plan (Free Text) Assessment: 77 yo F, with PMH CKD, DM2, HTN, with hx of poor followup, admitted for sepsis, metabolic acidosis, eletrolyte derangement, and acute on chronic kidney injury. No longer septic, clinically improving. Plan: # UTI - Clinically improved - Afebrile, leukocytosis resolved - U/A + on admission - Urine Cx likely contaminated; clean catch sent and pending - Blood Cx : no growth 24 x2 - ID consulted, Dr. Thomas - recommends removal of stents, and broader coverage abx; cefepime day 3 - Urology consult- Dr. Valentine- pt on schedule for tomorrow for stent removal # Diarrhea 2/2 to C Diff - IV hydration - Oral vancomycin - As per ID, repeat c diff stool antigen and toxin - C. diff PCR pending - Stool cx: no salmonella, shigella, or campylobacter - Fecal leukocyte pending # Metabolic Acidosis, resolved - No Anion gap, pH: 7.24 on 09/15 - CO2: 22 this am, <5 on admission - Sodium Bicarb 650 mg PO Q6 - f/u am BMP # Acute on Chronic Kidney Injury , improving - BUN/Cr this am: 79/4.5 - BUN/Cr on presentation: 132/10.3 - BUN/Cr upon D/C in 05/2017: 43/2.9 - Urine sodium 167 wnl, urine potassium 14.6 wnl, urine osmolality 424 - hx of b/l renal stenting performed in 05/2017 - stents visible on abd CT; on schedule for tomorrow to be removed - Nephrology consult with Dr. Houston - pt refusing HD, will follow for further recommendations # Hyperkalemia, resolved - 3.9 today - monitor BMP # IDDM2 with Hyperglycemia - s/p 5 units Regular insulin in ED - Lispro correction scale, Q6H - accuchecks ACHS - hemoglobin A1C 12.0 # Elevated Troponin - Likely 2/2 to NINA - Cardiac monitoring # Acute Pancreatitis - Lipase: 1120 - Abd CT: pancreas appears grossly normal - s/p fluid hydration # Right Adnexal Mass - Seen on CT on 2016, again seen on CT on this admission, stable in size # Hypertension - Pt has history, but normotensive at this time without medication -Monitor #) Diet - Renal diet - NPO after midnight for stent removal tomorrow #) Prophylactic Measures - Protonix 40mg IV QD - Heparin 5000 units Q12H
[2017-09-18] MEDS: Vancomycin 500 mg (Oral/Rectal USE) PO SCH ×4 (04:02→22:12)
[2017-09-18 06:32] LABS: ALB/GLOB RATIO 0.9 (1.0-2.1); ALBUMIN 2.8 g/dL (3.5-5.0)
[2017-09-18] MEDS: Insulin Lispro (humaLOG) 100 Units/ml Inj SC SCH ×4 (06:44→22:14)
[2017-09-18 07:24] LABS: BASO % 0.3 % (0.0-2.0); EOS # 0.1 K/uL (0.0-0.7); EOS % 1.3 % (0.0-4.0); HEMOGLOBIN 11.4 g/dL (12.0-16.0); LYMPH # 1.4 K/uL (1.0-4.3); MEAN CELL VOLUME 86.5 fl (81.0-99.0); MEAN CORPUSCULAR HGB CONC 32.3 g/dL (33.0-37.0); MONO # 0.6 K/uL (0.0-0.8); MONO % 7.4 % (0.0-10.0); NEUT # 6.1 K/uL (1.8-7.0); NRBC % 0.1 % (0.0-0.0); RBC 4.07 Mil/uL (3.80-5.20); RED CELL DISTRIBUTION WIDTH 13.9 % (11.5-14.5); WHITE BLOOD COUNT 8.3 K/uL (4.8-10.8)
[2017-09-18] MEDS ORDERED: cefTRIAXone (Rocephin) 1 gm Inj ONE (08:39)
[2017-09-18] MEDS ORDERED: Lidocaine 2% Jelly (Uro-Jet) ONE (08:40)
[2017-09-18] MEDS ORDERED: Iohexol 240 200 ML ONE (08:40)
--- NOTE | 2017-09-18 09:00 | CARD ---
APPROVED REPORT EKG Measurement Heart [id number] <Conclusion> Normal sinus rhythm T wave abnormality, consider lateral ischemia Abnormal ECG
[2017-09-18] MEDS ORDERED: Lactated Ringer's 1,000 ML IV ONE (09:15)
[2017-09-18] MEDS ORDERED: Propofol 10 mg/ml Inj (20 ML) ONE (09:28)
[2017-09-18] MEDS ORDERED: Midazolam 2 MG/2 ML VIAL ONE (09:28)
[2017-09-18] MEDS ORDERED: cefTRIAXone (Rocephin) 1 gm Inj IM ONE (09:30)
[2017-09-18] MEDS ORDERED: ePHEDrine 50 mg/ml Inj ONE (09:53)
--- NOTE | 2017-09-18 10:24 | CP.PCM.PN ---
Subjective - Date & Time of Evaluation Date of Evaluation: 09/18/17 Time of Evaluation: 10:22 - Subjective Subjective: urology bilateral jj stents replacedv . #7 fr stents used. Procedure unremarkable Objective - Vital Signs/Intake and Output Vital Signs (last 24 hours): Temp Pulse Resp BP Pulse Ox 99.5 F 73 18 101/66 95 09/18/17 07:52 09/18/17 07:52 09/18/17 07:52 09/18/17 07:52 09/18/17 07:52 - Medications Medications: Current Medications Albuterol/Ipratropium (Duoneb 3 Mg/0.5 Mg (3 Ml) Ud) 3 ml INH RQ6 PRN PRN Reason: Shortness of Breath Atorvastatin Calcium (Lipitor) 10 mg PO DAILY [facility] Last Admin: 09/17/17 08:59 Dose: 10 mg Dextrose (Dextrose 50% Inj) 0 ml IV STAT PRN; Protocol PRN Reason: Hypoglycemia Protocol Dextrose (Glutose 15) 0 gm PO ONCE PRN; Protocol PRN Reason: Hypoglycemia Protocol Famotidine (Pepcid) 20 mg PO DAILY [facility] Last Admin: 09/17/17 08:59 Dose: 20 mg Glucagon (Glucagen Diagnostic Kit) 0 mg IM STAT PRN; Protocol PRN Reason: Hypoglycemia Protocol Heparin Sodium (Porcine) (Heparin) 5,000 units SC Q12 [place] PRN Reason: Protocol Last Admin: 09/17/17 21:51 Dose: Not Given Cefepime HCl 1 gm/ Sodium (Chloride) 100 mls @ 100 mls/hr IVPB DAILY [facility] PRN Reason: Protocol Last Admin: 09/17/17 09:01 Dose: 100 mls/hr Insulin Human Lispro (Humalog) 0 units SC ACHS [facility] PRN Reason: Protocol Last Admin: 09/18/17 06:44 Dose: Not Given Ondansetron HCl (Zofran Inj) 4 mg IVP Q6 PRN PRN Reason: Nausea/Vomiting Last Admin: 09/16/17 16:45 Dose: 4 mg Sodium Bicarbonate (Sodium Bicarbonate Tab) 650 mg PO Q6 [facility] Last Admin: 09/18/17 04:02 Dose: Not Given Vancomycin HCl (Vancocin (Oral/Rectal Use)) 500 mg PO Q6 [facility] PRN Reason: Protocol Stop: 09/29/17 10:01 Last Admin: 09/18/17 04:02 Dose: Not Given - Labs Labs: 09/18/17 04:20 09/18/17 04:20 PT 11.0 Seconds (9.8-13.1) 09/14/17 17:01 INR 1.0 (0.9-1.2) 09/14/17 17:01 APTT 31.5 Seconds (25.6-37.1) 09/14/17 17:01
--- NOTE | 2017-09-18 10:25 | CP.PCM.PN ---
<Pastora Hill - Last Filed: 09/18/17 12:47> Subjective - Date & Time of Evaluation Date of Evaluation: 09/18/17 Time of Evaluation: 07:25 - Subjective Subjective: Pt seen and evaluated at bedside this am; reports that her diarrhea has improved - only 1 episode overnight. Otherwise no complaints. Objective - Vital Signs/Intake and Output Vital Signs (last 24 hours): Temp Pulse Resp BP Pulse Ox 99.5 F 73 18 101/66 95 09/18/17 07:52 09/18/17 07:52 09/18/17 07:52 09/18/17 07:52 09/18/17 07:52 - Medications Medications: Current Medications Albuterol/Ipratropium (Duoneb 3 Mg/0.5 Mg (3 Ml) Ud) 3 ml INH RQ6 PRN PRN Reason: Shortness of Breath Atorvastatin Calcium (Lipitor) 10 mg PO DAILY [facility] Last Admin: 09/17/17 08:59 Dose: 10 mg Dextrose (Dextrose 50% Inj) 0 ml IV STAT PRN; Protocol PRN Reason: Hypoglycemia Protocol Dextrose (Glutose 15) 0 gm PO ONCE PRN; Protocol PRN Reason: Hypoglycemia Protocol Famotidine (Pepcid) 20 mg PO DAILY [facility] Last Admin: 09/17/17 08:59 Dose: 20 mg Glucagon (Glucagen Diagnostic Kit) 0 mg IM STAT PRN; Protocol PRN Reason: Hypoglycemia Protocol Heparin Sodium (Porcine) (Heparin) 5,000 units SC Q12 [facility] PRN Reason: Protocol Last Admin: 09/17/17 21:51 Dose: Not Given Cefepime HCl 1 gm/ Sodium (Chloride) 100 mls @ 100 mls/hr IVPB DAILY [facility] PRN Reason: Protocol Last Admin: 09/17/17 09:01 Dose: 100 mls/hr Insulin Human Lispro (Humalog) 0 units SC ACHS [facility] PRN Reason: Protocol Last Admin: 09/18/17 06:44 Dose: Not Given Ondansetron HCl (Zofran Inj) 4 mg IVP Q6 PRN PRN Reason: Nausea/Vomiting Last Admin: 09/16/17 16:45 Dose: 4 mg Sodium Bicarbonate (Sodium Bicarbonate Tab) 650 mg PO Q6 [facility] Last Admin: 09/18/17 04:02 Dose: Not Given Vancomycin HCl (Vancocin (Oral/Rectal Use)) 500 mg PO Q6 [facility] PRN Reason: Protocol Stop: 09/29/17 10:01 Last Admin: 09/18/17 04:02 Dose: Not Given - Labs Labs: 09/18/17 04:20 09/18/17 04:20 PT 11.0 Seconds (9.8-13.1) 09/14/17 17:01 INR 1.0 (0.9-1.2) 09/14/17 17:01 APTT 31.5 Seconds (25.6-37.1) 09/14/17 17:01 - Constitutional Appears: No Acute Distress, Chronically Ill - Head Exam Head Exam: NORMAL INSPECTION - Eye Exam Eye Exam: Normal appearance - ENT Exam ENT Exam: Mucous Membranes Moist - Respiratory Exam Respiratory Exam: Clear to Ausculation Bilateral, NORMAL BREATHING PATTERN. absent: Respiratory Distress - Cardiovascular Exam Cardiovascular Exam: REGULAR RHYTHM, +S1, +S2 - GI/Abdominal Exam GI & Abdominal Exam: Soft, Normal Bowel Sounds. absent: Distended, Tenderness - Extremities Exam Extremities Exam: absent: Calf Tenderness - Back Exam Back Exam: NORMAL INSPECTION Additional comments: multiple seborrheic keratoses - Neurological Exam Neurological Exam: Alert, Awake - Skin Skin Exam: Normal Color, Warm Assessment and Plan - Assessment and Plan (Free Text) Assessment: 77 yo F, with PMH CKD, DM2, HTN, with hx of poor followup, admitted for sepsis, metabolic acidosis, eletrolyte derangement, and acute on chronic kidney injury. No longer septic, clinically improving. For ureteral stent replacement today. Plan: # UTI - Clinically improved - Afebrile, leukocytosis resolved - Urinalysis + on admission - Urine Cx likely contaminated; clean catch sent and pending - Blood Cx : no growth 24 x2 - ID consulted, Dr. Thomas - recommends removal of stents, and broader coverage abx; cefepime day 4 - Urology consult- Dr. Valentine- stents replaced today # Diarrhea 2/2 to C Diff - IV hydration - Oral vancomycin Day 4 - As per ID, repeat c diff stool antigen and toxin - pending - C. diff PCR pending - Stool cx: no salmonella, shigella, or campylobacter - Fecal leukocyte pending # Metabolic Acidosis, resolved - No Anion gap, pH: 7.24 on 09/15 - CO2: 19 this am, <5 on admission - Sodium Bicarb 650 mg PO Q6 - f/u am BMP # Acute on Chronic Kidney Injury , improving - BUN/Cr this am: 69/3.6 - BUN/Cr on presentation: 132/10.3 - BUN/Cr upon D/C in 05/2017: 43/2.9 - Urine sodium 167 wnl, urine potassium 14.6 wnl, urine osmolality 424 - hx of b/l renal stenting performed in 05/2017 - stents visible on abd CT; replaced today by urologist Dr. Valentine - Nephrology consult with Dr. Houston - pt refusing HD, will follow for further recommendations # Hyperkalemia, resolved - 4.3 today - monitor BMP # Fecal Occult Blood Positive - Pt would benefit from outpt GI follow-up # IDDM2 with Hyperglycemia - s/p 5 units Regular insulin in ED - Lispro correction scale, Q6H - accuchecks ACHS - hemoglobin A1C 12.0 # Elevated Troponin - Likely 2/2 to NINA - Cardiac monitoring # Acute Pancreatitis - Lipase: 1120 - Abd CT: pancreas appears grossly normal - s/p fluid hydration # Right Adnexal Mass - Seen on CT on 2016, again seen on CT on this admission, stable in size # Hypertension - Pt has history, but normotensive at this time without medication - Monitor #) Diet - Renal diet #) Prophylactic Measures - Protonix 40mg IV QD - Heparin 5000 units Q12H <Jose Juan Boswell - Last Filed: 09/20/17 06:56> Objective - Vital Signs/Intake and Output Vital Signs (last 24 hours): Temp Pulse Resp BP Pulse Ox 98.6 F 71 18 115/69 99 09/20/17 05:00 09/20/17 05:00 09/20/17 05:00 09/20/17 05:00 09/20/17 05:00 Intake and Output: 09/19/17 09/20/17 18:59 06:59 Intake Total 850 Output Total 1 Balance 849 - Medications Medications: Current Medications Albuterol/Ipratropium (Duoneb 3 Mg/0.5 Mg (3 Ml) Ud) 3 ml INH RQ6 PRN PRN Reason: Shortness of Breath Atorvastatin Calcium (Lipitor) 10 mg PO DAILY [facility] Last Admin: 09/19/17 09:48 Dose: 10 mg Dextrose (Dextrose 50% Inj) 0 ml IV STAT PRN; Protocol PRN Reason: Hypoglycemia Protocol Dextrose (Glutose 15) 0 gm PO ONCE PRN; Protocol PRN Reason: Hypoglycemia Protocol Famotidine (Pepcid) 20 mg PO DAILY [facility] Last Admin: 09/19/17 09:48 Dose: 20 mg Glucagon (Glucagen Diagnostic Kit) 0 mg IM STAT PRN; Protocol PRN Reason: Hypoglycemia Protocol Heparin Sodium (Porcine) (Heparin) 5,000 units SC Q12 [facility] PRN Reason: Protocol Last Admin: 09/19/17 22:16 Dose: 5,000 units Cefepime HCl 1 gm/ Sodium (Chloride) 100 mls @ 100 mls/hr IVPB DAILY [facility] PRN Reason: Protocol Last Admin: 09/19/17 09:48 Dose: 100 mls/hr Lactated Ringer's (Lactated Ringer's) 1,000 mls @ 75 mls/hr IV .[id number] [facility] Last Admin: 09/20/17 03:52 Dose: 75 mls/hr Insulin Detemir (Levemir) 3 units SC HS [facility] Last Admin: 09/19/17 22:15 Dose: 3 units Insulin Human Lispro (Humalog) 0 units SC ACHS [facility] PRN Reason: Protocol Last Admin: 09/20/17 06:48 Dose: 4 units Ondansetron HCl (Zofran Inj) 4 mg IVP Q6 PRN PRN Reason: Nausea/Vomiting Last Admin: 09/16/17 16:45 Dose: 4 mg Sodium Bicarbonate (Sodium Bicarbonate Tab) 650 mg PO Q6 [facility] Last Admin: 09/20/17 03:51 Dose: 650 mg Vancomycin HCl (Vancocin (Oral/Rectal Use)) 500 mg PO Q6 [facility] PRN Reason: Protocol Stop: 09/29/17 10:01 Last Admin: 09/20/17 03:51 Dose: 500 mg - Labs Labs: 09/20/17 04:20 09/20/17 04:20 PT 11.0 Seconds (9.8-13.1) 09/14/17 17:01 INR 1.0 (0.9-1.2) 09/14/17 17:01 APTT 31.5 Seconds (25.6-37.1) 09/14/17 17:01 Attending/Attestation - Attestation I have personally seen and examined this patient.: Yes I have fully participated in the care of the patient.: Yes I have reviewed all pertinent clinical information, including history, physical exam and plan: Yes
--- NOTE | 2017-09-18 11:39 | RAD ---
PROCEDURE: Intraoperative Fluoroscopy. HISTORY: CYSTO STENT FINDINGS: Fluoroscopic assistance was provided. 0.8 minutes fluoroscopy time utilized during this procedure Please refer to the operative report for additional details.
[2017-09-18] MEDS: Lactated Ringer's 1,000 ML IV SCH (12:00)
[2017-09-18] MEDS: Cefepime 1 GM in Sodium Chloride 0.9% 100 ML IVPB SCH (12:00)
--- NOTE | 2017-09-18 12:22 | CP.PCM.PN ---
Subjective - Date & Time of Evaluation Date of Evaluation: 09/18/17 Time of Evaluation: 14:00 - Subjective Subjective: ID Note- Pt. seen and examined today. Pt. s/p b/l ureteral stent replacement today by Urologist. pt. denies any fever ro chills. she states she still has slight lower abd discomfort but less than before. diarrhea is less and as per patient no malodorous and not mucoid anymore. Objective - Vital Signs/Intake and Output Vital Signs (last 24 hours): Temp Pulse Resp BP Pulse Ox 98.2 F 74 18 113/64 98 09/18/17 11:20 09/18/17 11:20 09/18/17 11:20 09/18/17 11:20 09/18/17 11:20 Intake and Output: 09/18/17 09/18/17 06:59 18:59 Intake Total 500 Balance 500 - Medications Medications: Current Medications Albuterol/Ipratropium (Duoneb 3 Mg/0.5 Mg (3 Ml) Ud) 3 ml INH RQ6 PRN PRN Reason: Shortness of Breath Atorvastatin Calcium (Lipitor) 10 mg PO DAILY [facility] Last Admin: 09/17/17 08:59 Dose: 10 mg Dextrose (Dextrose 50% Inj) 0 ml IV STAT PRN; Protocol PRN Reason: Hypoglycemia Protocol Dextrose (Glutose 15) 0 gm PO ONCE PRN; Protocol PRN Reason: Hypoglycemia Protocol Famotidine (Pepcid) 20 mg PO DAILY [facility] Last Admin: 09/17/17 08:59 Dose: 20 mg Glucagon (Glucagen Diagnostic Kit) 0 mg IM STAT PRN; Protocol PRN Reason: Hypoglycemia Protocol Heparin Sodium (Porcine) (Heparin) 5,000 units SC Q12 [facility] PRN Reason: Protocol Last Admin: 09/17/17 21:51 Dose: Not Given Cefepime HCl 1 gm/ Sodium (Chloride) 100 mls @ 100 mls/hr IVPB DAILY [facility] PRN Reason: Protocol Last Admin: 09/17/17 09:01 Dose: 100 mls/hr Lactated Ringer's (Lactated Ringer's) 1,000 mls @ 75 mls/hr IV .[id number] [facility] Insulin Human Lispro (Humalog) 0 units SC ACHS [facility] PRN Reason: Protocol Last Admin: 09/18/17 06:44 Dose: Not Given Ondansetron HCl (Zofran Inj) 4 mg IVP Q6 PRN PRN Reason: Nausea/Vomiting Last Admin: 09/16/17 16:45 Dose: 4 mg Sodium Bicarbonate (Sodium Bicarbonate Tab) 650 mg PO Q6 [facility] Last Admin: 09/18/17 04:02 Dose: Not Given Vancomycin HCl (Vancocin (Oral/Rectal Use)) 500 mg PO Q6 [facility] PRN Reason: Protocol Stop: 09/29/17 10:01 Last Admin: 09/18/17 04:02 Dose: Not Given - Labs Labs: - Additional Findings Additional findings: - Head Exam Head Exam: ATRAUMATIC - Eye Exam Eye Exam: EOMI, PERRL - ENT Exam ENT Exam: Normal Oropharynx - Neck Exam Neck exam: Positive for: Full Rom Additional comments: supple - Respiratory Exam Respiratory Exam: Clear to Auscultation Bilateral, NORMAL BREATHING PATTERN - Cardiovascular Exam Cardiovascular Exam: RRR, +S1, +S2 - GI/Abdominal Exam GI & Abdominal Exam: Normal Bowel Sounds, Soft Additional comments: No distention mild tenderness with palpation in lower abd region No guarding, no rebound no CVA tenderness B/L - Extremities Exam Extremities exam: Positive for: pedal edema Additional comments: 1+ edema B/L LE - Neurological Exam Neurological exam: Alert, Oriented x 3 Laboratory Results - last 72 hr 09/15/17 09/15/17 09/15/17 09:42 12:37 14:59 WBC RBC Hgb Hct MCV MCH MCHC RDW Plt Count MPV Neut % (Auto) Lymph % (Auto) Mchenry % (Auto) Eos % (Auto) Baso % (Auto) Neut # (Auto) Lymph # (Auto) Mchenry # (Auto) Eos # (Auto) Baso # (Auto) Sodium Potassium Chloride Carbon Dioxide Anion Gap BUN Creatinine Est GFR ( Amer) Est GFR (Non-Af Amer) POC Glucose (mg/dL) 294 H Random Glucose Calcium Total Bilirubin AST ALT Alkaline Phosphatase Total Protein Albumin Globulin Albumin/Globulin Ratio Stool Occult Blood Positive H Stool Leukocytes, Qual Negative 09/15/17 09/15/17 09/15/17 16:01 16:26 23:46 WBC RBC Hgb Hct MCV MCH MCHC RDW Plt Count MPV Neut % (Auto) Lymph % (Auto) Mchenry % (Auto) Eos % (Auto) Baso % (Auto) Neut # (Auto) Lymph # (Auto) Mchenry # (Auto) Eos # (Auto) Baso # (Auto) Sodium 135 Potassium 4.4 Chloride 106 Carbon Dioxide 16 L Anion Gap 17 BUN 104 H* Creatinine 6.7 H Est GFR ( Amer) 7 Est GFR (Non-Af Amer) 6 POC Glucose (mg/dL) 155 H 177 H Random Glucose 168 H Calcium 7.9 L Total Bilirubin AST ALT Alkaline Phosphatase Total Protein Albumin Globulin Albumin/Globulin Ratio Stool Occult Blood Stool Leukocytes, Qual 09/16/17 09/16/17 09/16/17 06:42 07:24 07:24 WBC 10.2 RBC 3.64 L Hgb 10.0 L Hct 30.3 L MCV 83.3 MCH 27.5 MCHC 33.1 RDW 13.4 Plt Count 270 MPV 7.5 Neut % (Auto) 73.5 Lymph % (Auto) 18.5 L Mchenry % (Auto) 6.6 Eos % (Auto) 1.2 Baso % (Auto) 0.2 Neut # (Auto) 7.5 H Lymph # (Auto) 1.9 Mchenry # (Auto) 0.7 Eos # (Auto) 0.1 Baso # (Auto) 0.0 Sodium 138 Potassium 3.9 Chloride 104 Carbon Dioxide 18 L Anion Gap 20 BUN 94 H Creatinine 5.5 H Est GFR ( Amer) 9 Est GFR (Non-Af Amer) 8 POC Glucose (mg/dL) 165 H Random Glucose 175 H Calcium 7.6 L Total Bilirubin 0.3 AST 27 ALT 26 Alkaline Phosphatase 93 Total Protein 5.4 L Albumin 2.6 L Globulin 2.9 Albumin/Globulin Ratio 0.9 L Stool Occult Blood Stool Leukocytes, Qual 09/16/17 09/16/17 09/16/17 11:20 15:44 21:23 WBC RBC Hgb Hct MCV MCH MCHC RDW Plt Count MPV Neut % (Auto) Lymph % (Auto) Mchenry % (Auto) Eos % (Auto) Baso % (Auto) Neut # (Auto) Lymph # (Auto) Mchenry # (Auto) Eos # (Auto) Baso # (Auto) Sodium Potassium Chloride Carbon Dioxide Anion Gap BUN Creatinine Est GFR ( Amer) Est GFR (Non-Af Amer) POC Glucose (mg/dL) 287 H 266 H 194 H Random Glucose Calcium Total Bilirubin AST ALT Alkaline Phosphatase Total Protein Albumin Globulin Albumin/Globulin Ratio Stool Occult Blood Stool Leukocytes, Qual 09/17/17 09/17/17 09/17/17 03:43 07:00 07:00 WBC 7.6 RBC 3.88 Hgb 10.5 L Hct 32.7 L MCV 84.4 MCH 27.1 MCHC 32.2 L RDW 13.7 Plt Count 253 MPV 7.7 Neut % (Auto) 63.6 Lymph % (Auto) 24.8 Mchenry % (Auto) 9.5 Eos % (Auto) 1.8 Baso % (Auto) 0.3 Neut # (Auto) 4.8 Lymph # (Auto) 1.9 Mchenry # (Auto) 0.7 Eos # (Auto) 0.1 Baso # (Auto) 0.0 Sodium 133 Potassium 3.8 Chloride 96 L Carbon Dioxide 22 Anion Gap 19 BUN 79 H Creatinine 4.5 H Est GFR ( Amer) 12 Est GFR (Non-Af Amer) 10 POC Glucose (mg/dL) 168 H Random Glucose 161 H Calcium 7.6 L Total Bilirubin AST ALT Alkaline Phosphatase Total Protein Albumin Globulin Albumin/Globulin Ratio Stool Occult Blood Stool Leukocytes, Qual 09/17/17 09/17/17 09/17/17 11:37 16:58 21:12 WBC RBC Hgb Hct MCV MCH MCHC RDW Plt Count MPV Neut % (Auto) Lymph % (Auto) Mchenry % (Auto) Eos % (Auto) Baso % (Auto) Neut # (Auto) Lymph # (Auto) Mchenry # (Auto) Eos # (Auto) Baso # (Auto) Sodium Potassium Chloride Carbon Dioxide Anion Gap BUN Creatinine Est GFR ( Amer) Est GFR (Non-Af Amer) POC Glucose (mg/dL) 255 H 209 H 212 H Random Glucose Calcium Total Bilirubin AST ALT Alkaline Phosphatase Total Protein Albumin Globulin Albumin/Globulin Ratio Stool Occult Blood Stool Leukocytes, Qual 09/18/17 09/18/17 09/18/17 04:20 04:20 05:08 WBC 8.3 RBC 4.07 Hgb 11.4 L Hct 35.2 MCV 86.5 D MCH 28.0 MCHC 32.3 L RDW 13.9 Plt Count 229 MPV 8.0 Neut % (Auto) 74.0 Lymph % (Auto) 17.0 L Mchenry % (Auto) 7.4 Eos % (Auto) 1.3 Baso % (Auto) 0.3 Neut # (Auto) 6.1 Lymph # (Auto) 1.4 Mchenry # (Auto) 0.6 Eos # (Auto) 0.1 Baso # (Auto) 0.0 Sodium 133 Potassium 4.3 Chloride 98 Carbon Dioxide 19 L Anion Gap 20 BUN 69 H Creatinine 3.6 H Est GFR ( Amer) 15 Est GFR (Non-Af Amer) 12 POC Glucose (mg/dL) 169 H Random Glucose 173 H Calcium 8.0 L Total Bilirubin 0.4 AST 40 H D ALT 16 Alkaline Phosphatase 99 Total Protein 5.9 L Albumin 2.8 L Globulin 3.1 Albumin/Globulin Ratio 0.9 L Stool Occult Blood Stool Leukocytes, Qual 09/18/17 09/18/17 10:32 12:44 WBC RBC Hgb Hct MCV MCH MCHC RDW Plt Count MPV Neut % (Auto) Lymph % (Auto) Mchenry % (Auto) Eos % (Auto) Baso % (Auto) Neut # (Auto) Lymph # (Auto) Mchenry # (Auto) Eos # (Auto) Baso # (Auto) Sodium Potassium Chloride Carbon Dioxide Anion Gap BUN Creatinine Est GFR ( Amer) Est GFR (Non-Af Amer) POC Glucose (mg/dL) 171 H 217 H Random Glucose Calcium Total Bilirubin AST ALT Alkaline Phosphatase Total Protein Albumin Globulin Albumin/Globulin Ratio Stool Occult Blood Stool Leukocytes, Qual Microbiology 09/15/17 18:18 Blood Blood Culture - Preliminary NO GROWTH AFTER 48 HOURS 09/15/17 18:08 Blood Blood Culture - Preliminary NO GROWTH AFTER 48 HOURS 09/14/17 17:13 Blood Blood Culture - Preliminary NO GROWTH AFTER 3 DAYS 09/14/17 17:13 Blood Blood Culture - Preliminary NO GROWTH AFTER 3 DAYS 09/14/17 22:33 Stool Stool Culture - Final NO SALMONELLA, SHIGELLA OR CAMPYLOBACTER ISOLATED. 09/15/17 08:27 Naris MRSA Culture (Admit) - Final MRSA NOT DETECTED 09/14/17 17:01 Urine,Clean Catch Urine Culture - Final 50-100,000 CFU/ML. MULTIPLE SPECIES. SUGGEST REPEAT SPECIMEN. Assessment and Plan (1) Severe sepsis Status: Acute (2) Acute on chronic renal failure Status: Acute (3) UTI (urinary tract infection) Status: Acute (4) Clostridium difficile diarrhea Status: Resolved (5) Hydronephrosis Status: Acute (6) Retained ureteral stent Status: Acute - Assessment and Plan (Free Text) Assessment: A/P- 77 y/o female with HTN, uncontrolled DM II, acute on chronic renal disease, retained b/l uretreal stents for hydronephrosis. clinically improved. afebrile past 3 days. Leukocytosis has resolved. + UA on admission acute on chronic renal insufficiency, better today blood cx- neg x 2 urine cx- multiple organisms hence most likely contaminant stool c.diff- pos 1. sepsis 2.hydronephrosis s/p ureterals tents for past 4 months 3.uncontrolled diabetes 4. acute on chronic renal disease 5.c.diff associated diarrhea PLan- check clean catch urine cx and urinalysis. check 2 more stool c.diff ag and Toxin. advise to continue with the oral vancomycin for the c.diff associated diarrhea. day #4. advise to continue with IV cefepime ( renal dose) for and UTI coverage, pending repeat urine cx.
--- NOTE | 2017-09-18 13:14 | OP ---
PROCEDURE DATE: 09/18/2017 PREOPERATIVE DIAGNOSIS: Bilateral hydronephrosis. POSTOPERATIVE DIAGNOSIS: Bilateral hydronephrosis. PROCEDURE: Cystoscopy with replacement of bilateral J-stent. SURGEON: Irlanda Valentine MD DESCRIPTION OF PROCEDURE: The patient was placed on the operating room table, dorsal lithotomy position. The area of the groin was prepped and draped in a sterile manner, using a number 21 cystoscope, I entered into the bladder atraumatically. I pulled out a two tales of the existing double J-stent, ran a sensory wire in the right side to the level of renal pelvis. I removed the old J-stent and then inserted a number 7 [place] Multi-Link J on that side. I did the same procedure on the left side. When both fluoroscopically in good position, then the instrumentation was removed and the patient was taken from operating room in good condition. There was no blood loss. Irlanda Valentine MD
--- NOTE | 2017-09-18 20:11 | CP.PCM.PN ---
Subjective - Date & Time of Evaluation Date of Evaluation: 09/18/17 Time of Evaluation: 15:00 - Subjective Subjective: SEEN ON RENAL F/U ON IVF .. RENAL FUNCTION IMPROVING S/P ADELAIDA STENTS REPLACEMENT ALL PREVIOUS EMR REVIEWED Objective - Vital Signs/Intake and Output Vital Signs (last 24 hours): Temp Pulse Resp BP Pulse Ox 98.8 F 82 20 116/76 99 09/18/17 19:58 09/18/17 19:58 09/18/17 19:58 09/18/17 19:58 09/18/17 19:58 Intake and Output: 09/18/17 09/19/17 18:59 06:59 Intake Total 500 Balance 500 - Medications Medications: Current Medications Albuterol/Ipratropium (Duoneb 3 Mg/0.5 Mg (3 Ml) Ud) 3 ml INH RQ6 PRN PRN Reason: Shortness of Breath Atorvastatin Calcium (Lipitor) 10 mg PO DAILY [facility] Last Admin: 09/18/17 12:36 Dose: 10 mg Dextrose (Dextrose 50% Inj) 0 ml IV STAT PRN; Protocol PRN Reason: Hypoglycemia Protocol Dextrose (Glutose 15) 0 gm PO ONCE PRN; Protocol PRN Reason: Hypoglycemia Protocol Famotidine (Pepcid) 20 mg PO DAILY [facility] Last Admin: 09/18/17 12:00 Dose: 20 mg Glucagon (Glucagen Diagnostic Kit) 0 mg IM STAT PRN; Protocol PRN Reason: Hypoglycemia Protocol Heparin Sodium (Porcine) (Heparin) 5,000 units SC Q12 [facility] PRN Reason: Protocol Last Admin: 09/17/17 21:51 Dose: Not Given Cefepime HCl 1 gm/ Sodium (Chloride) 100 mls @ 100 mls/hr IVPB DAILY [facility] PRN Reason: Protocol Last Admin: 09/18/17 12:00 Dose: 100 mls/hr Lactated Ringer's (Lactated Ringer's) 1,000 mls @ 75 mls/hr IV .[id number] [facility] Last Admin: 09/18/17 12:00 Dose: 75 mls/hr Insulin Detemir (Levemir) 3 units SC HS [facility] Insulin Human Lispro (Humalog) 0 units SC ACHS [facility] PRN Reason: Protocol Last Admin: 09/18/17 17:08 Dose: 3 units Ondansetron HCl (Zofran Inj) 4 mg IVP Q6 PRN PRN Reason: Nausea/Vomiting Last Admin: 09/16/17 16:45 Dose: 4 mg Sodium Bicarbonate (Sodium Bicarbonate Tab) 650 mg PO Q6 [facility] Last Admin: 09/18/17 17:08 Dose: 650 mg Vancomycin HCl (Vancocin (Oral/Rectal Use)) 500 mg PO Q6 [facility] PRN Reason: Protocol Stop: 09/29/17 10:01 Last Admin: 09/18/17 17:09 Dose: 500 mg - Labs Labs: 09/18/17 04:20 09/18/17 04:20 PT 11.0 Seconds (9.8-13.1) 09/14/17 17:01 INR 1.0 (0.9-1.2) 09/14/17 17:01 APTT 31.5 Seconds (25.6-37.1) 09/14/17 17:01 Assessment and Plan - Assessment and Plan (Free Text) Assessment: A ON CKD .. RENAL FUNCTION IMPROVING ELECTROLYTES IMBALANCE .. HYPERKALEMIA .. K BETTER ACIDOSIS BETTER UTI .. S/P ADELAIDA STENTS REPLACEMENT .. ON IVAB C.DIFF COLITIS AND DIARHIA .. ON PO VANCO MMP P : C/O IVF C/O IVAB C/O PRESENT CARE
[2017-09-18] MEDS: Insulin Detemir 100 Units/ml Inj SC SCH (22:15)
[2017-09-19] MEDS: Vancomycin 500 mg (Oral/Rectal USE) PO SCH ×4 (05:30→22:16)
[2017-09-19 05:56] LABS: BASO % 0.3 % (0.0-2.0); EOS # 0.2 K/uL (0.0-0.7); EOS % 2.2 % (0.0-4.0); HEMOGLOBIN 10.5 g/dL (12.0-16.0); LYMPH # 2.2 K/uL (1.0-4.3); LYMPH % 26.8 % (20.0-40.0); MEAN CELL VOLUME 84.6 fl (81.0-99.0); MEAN CORPUSCULAR HEMOGLOBIN 27.3 pg (27.0-31.0); MEAN CORPUSCULAR HGB CONC 32.2 g/dL (33.0-37.0); MEAN PLATELET VOLUME 8.2 fl (7.2-11.7); MONO % 11.7 % (0.0-10.0); NEUT # 4.8 K/uL (1.8-7.0); RBC 3.86 Mil/uL (3.80-5.20); RED CELL DISTRIBUTION WIDTH 13.4 % (11.5-14.5); WHITE BLOOD COUNT 8.2 K/uL (4.8-10.8)
[2017-09-19 06:17] LABS: CALCIUM 7.8 mg/dL (8.4-10.2)
[2017-09-19] MEDS: Insulin Lispro (humaLOG) 100 Units/ml Inj SC SCH ×4 (07:36→22:13)
--- NOTE | 2017-09-19 07:40 | CP.PCM.PN ---
<SelwyngunnaryazminBijana - Last Filed: 09/19/17 08:42> Subjective - Date & Time of Evaluation Date of Evaluation: 09/19/17 Time of Evaluation: 07:05 - Subjective Subjective: Pt seen and eval at bedside this am; no acute events overnight. States she had 1 bowel movement, still diarrhea. Objective - Vital Signs/Intake and Output Vital Signs (last 24 hours): Temp Pulse Resp BP Pulse Ox 98.7 F 72 18 109/71 98 09/19/17 05:30 09/19/17 05:30 09/19/17 05:30 09/19/17 05:30 09/19/17 05:30 - Medications Medications: Current Medications Albuterol/Ipratropium (Duoneb 3 Mg/0.5 Mg (3 Ml) Ud) 3 ml INH RQ6 PRN PRN Reason: Shortness of Breath Atorvastatin Calcium (Lipitor) 10 mg PO DAILY [facility] Last Admin: 09/18/17 12:36 Dose: 10 mg Dextrose (Dextrose 50% Inj) 0 ml IV STAT PRN; Protocol PRN Reason: Hypoglycemia Protocol Dextrose (Glutose 15) 0 gm PO ONCE PRN; Protocol PRN Reason: Hypoglycemia Protocol Famotidine (Pepcid) 20 mg PO DAILY [facility] Last Admin: 09/18/17 12:00 Dose: 20 mg Glucagon (Glucagen Diagnostic Kit) 0 mg IM STAT PRN; Protocol PRN Reason: Hypoglycemia Protocol Heparin Sodium (Porcine) (Heparin) 5,000 units SC Q12 [facility] PRN Reason: Protocol Last Admin: 09/18/17 22:11 Dose: 5,000 units Cefepime HCl 1 gm/ Sodium (Chloride) 100 mls @ 100 mls/hr IVPB DAILY [facility] PRN Reason: Protocol Last Admin: 09/18/17 12:00 Dose: 100 mls/hr Lactated Ringer's (Lactated Ringer's) 1,000 mls @ 75 mls/hr IV .[id number] [facility] Last Admin: 09/18/17 12:00 Dose: 75 mls/hr Insulin Detemir (Levemir) 3 units SC HS [facility] Last Admin: 09/18/17 22:15 Dose: 3 units Insulin Human Lispro (Humalog) 0 units SC ACHS [facility] PRN Reason: Protocol Last Admin: 09/19/17 07:36 Dose: 3 units Ondansetron HCl (Zofran Inj) 4 mg IVP Q6 PRN PRN Reason: Nausea/Vomiting Last Admin: 09/16/17 16:45 Dose: 4 mg Sodium Bicarbonate (Sodium Bicarbonate Tab) 650 mg PO Q6 [facility] Last Admin: 09/19/17 05:30 Dose: 650 mg Vancomycin HCl (Vancocin (Oral/Rectal Use)) 500 mg PO Q6 [facility] PRN Reason: Protocol Stop: 09/29/17 10:01 Last Admin: 09/19/17 05:30 Dose: 500 mg - Labs Labs: 09/19/17 04:25 09/19/17 04:25 PT 11.0 Seconds (9.8-13.1) 09/14/17 17:01 INR 1.0 (0.9-1.2) 09/14/17 17:01 APTT 31.5 Seconds (25.6-37.1) 09/14/17 17:01 - Constitutional Appears: No Acute Distress, Chronically Ill - Head Exam Head Exam: NORMAL INSPECTION - Eye Exam Eye Exam: Normal appearance - ENT Exam ENT Exam: Mucous Membranes Moist - Respiratory Exam Respiratory Exam: Clear to Ausculation Bilateral, NORMAL BREATHING PATTERN. absent: Respiratory Distress - Cardiovascular Exam Cardiovascular Exam: REGULAR RHYTHM, +S1, +S2 - GI/Abdominal Exam GI & Abdominal Exam: Soft, Normal Bowel Sounds. absent: Distended, Tenderness - Extremities Exam Extremities Exam: absent: Calf Tenderness - Back Exam Back Exam: NORMAL INSPECTION Additional comments: diffuse seborrheic keratoses - Neurological Exam Neurological Exam: Alert, Awake - Skin Skin Exam: Dry, Warm Assessment and Plan - Assessment and Plan (Free Text) Assessment: 77 yo F, with PMH CKD, DM2, HTN, with hx of poor followup, admitted for sepsis ( UTI 2/2 to retained stents vs C. diff), metabolic acidosis, electrolyte derangement, and acute on chronic kidney injury. C. diff positive; s/p replacement of formerly retained ureteral stents. No longer septic, kidney function improving, trending towards baseline. Plan: # UTI - Clinically improved - Afebrile, leukocytosis resolved - Urinalysis + on admission - Urine Cx - straight cath pending; original sample contaminated - Blood Cx : no growth 24 x2 - ID consulted, Dr. Thomas - cefepime day 5 for /UTI coverage, continue pending repeat urine cx; continue oral vanco day 5 - Urology consult- Dr. Valentine- stents replaced yest 09/18 # Diarrhea 2/2 to C Diff - IV hydration - Oral vancomycin Day 4 - As per ID, repeat c diff stool antigen and toxin - pending - C. diff PCR pending - Stool cx: no salmonella, shigella, or campylobacter - Fecal leukocyte pending # Acute on Chronic Kidney Injury , improving - BUN/Cr this am: 62/3.7 - BUN/Cr on presentation: 132/10.3 - BUN/Cr upon D/C in 05/2017: 43/2.9 - Urine sodium 167 wnl, urine potassium 14.6 wnl, urine osmolality 424 on admission - hx of b/l renal stenting performed in 05/2017 - stents visible on abd CT; replaced today by urologist Dr. Valentine - Nephrology consult with Dr. Houston - pt refusing HD, continue w/ IV fluids, antibiotics; will follow for further recommendations # Metabolic Acidosis, resolved - No anion gap - CO2: 24 this am, <5 on admission - Sodium Bicarb 650 mg PO Q6 - monitor on BMP # Hyperkalemia, resolved - 4.4 today - monitor on BMP # Fecal Occult Blood Positive - Pt would benefit from outpt GI follow-up # IDDM2 with Hyperglycemia - s/p 5 units Regular insulin in ED - Levemir 3U QHS - Lispro correction scale, Q6H - accuchecks ACHS - hemoglobin A1C 12.0 # Elevated Troponin - Likely 2/2 to NINA - Cardiac monitoring # Acute Pancreatitis - Lipase: 1120 - Abd CT: pancreas appears grossly normal - s/p fluid hydration # Right Adnexal Mass - Seen on CT on 2016, again seen on CT on this admission, stable in size # Hypertension - Pt has history, but normotensive at this time without medication - Monitor #) Diet - Renal diet #) Prophylactic Measures - Protonix 40mg IV QD - Heparin 5000 units Q12H <Min Woody - Last Filed: 09/21/17 06:52> Objective - Vital Signs/Intake and Output Vital Signs (last 24 hours): Temp Pulse Resp BP Pulse Ox 99.4 F 78 18 100/67 98 09/20/17 15:49 09/20/17 15:49 09/20/17 15:49 09/20/17 15:49 09/20/17 15:49 Intake and Output: 09/20/17 09/21/17 18:59 06:59 Intake Total 1525 Balance 1525 - Labs Labs: 09/20/17 04:20 09/20/17 04:20 PT 11.0 Seconds (9.8-13.1) 09/14/17 17:01 INR 1.0 (0.9-1.2) 09/14/17 17:01 APTT 31.5 Seconds (25.6-37.1) 09/14/17 17:01 Attending/Attestation - Attestation I have personally seen and examined this patient.: Yes I have fully participated in the care of the patient.: Yes I have reviewed all pertinent clinical information, including history, physical exam and plan: Yes
[2017-09-19] MEDS: Cefepime 1 GM in Sodium Chloride 0.9% 100 ML IVPB SCH (09:48)
[2017-09-19 16:35] VITALS: RESP 18
[2017-09-19] MEDS: Insulin Detemir 100 Units/ml Inj SC SCH (22:15)
--- NOTE | 2017-09-19 22:51 | CP.PCM.PN ---
Subjective - Date & Time of Evaluation Date of Evaluation: 09/19/17 Time of Evaluation: 14:00 - Subjective Subjective: SEEN ON RENAL F/U FULLY A@O REFUSES TO START ON HD MUSCLE TWITCHING NOTED ESPECIALLY ON UPPER EXTREMITIES RENAL FUNCTION GETTING BETTER ON IVF Objective - Vital Signs/Intake and Output Vital Signs (last 24 hours): Temp Pulse Resp BP Pulse Ox 99.4 F 79 18 108/61 96 09/19/17 20:12 09/19/17 20:12 09/19/17 20:12 09/19/17 20:12 09/19/17 20:12 Intake and Output: 09/19/17 09/20/17 18:59 06:59 Intake Total 850 Output Total 1 Balance 849 - Medications Medications: Current Medications Albuterol/Ipratropium (Duoneb 3 Mg/0.5 Mg (3 Ml) Ud) 3 ml INH RQ6 PRN PRN Reason: Shortness of Breath Atorvastatin Calcium (Lipitor) 10 mg PO DAILY [facility] Last Admin: 09/19/17 09:48 Dose: 10 mg Dextrose (Dextrose 50% Inj) 0 ml IV STAT PRN; Protocol PRN Reason: Hypoglycemia Protocol Dextrose (Glutose 15) 0 gm PO ONCE PRN; Protocol PRN Reason: Hypoglycemia Protocol Famotidine (Pepcid) 20 mg PO DAILY [facility] Last Admin: 09/19/17 09:48 Dose: 20 mg Glucagon (Glucagen Diagnostic Kit) 0 mg IM STAT PRN; Protocol PRN Reason: Hypoglycemia Protocol Heparin Sodium (Porcine) (Heparin) 5,000 units SC Q12 [facility] PRN Reason: Protocol Last Admin: 09/19/17 22:16 Dose: 5,000 units Cefepime HCl 1 gm/ Sodium (Chloride) 100 mls @ 100 mls/hr IVPB DAILY [facility] PRN Reason: Protocol Last Admin: 09/19/17 09:48 Dose: 100 mls/hr Lactated Ringer's (Lactated Ringer's) 1,000 mls @ 75 mls/hr IV .[id number] [facility] Last Admin: 09/18/17 12:00 Dose: 75 mls/hr Insulin Detemir (Levemir) 3 units SC HS [facility] Last Admin: 09/19/17 22:15 Dose: 3 units Insulin Human Lispro (Humalog) 0 units SC ACHS [facility] PRN Reason: Protocol Last Admin: 09/19/17 22:13 Dose: Not Given Ondansetron HCl (Zofran Inj) 4 mg IVP Q6 PRN PRN Reason: Nausea/Vomiting Last Admin: 09/16/17 16:45 Dose: 4 mg Sodium Bicarbonate (Sodium Bicarbonate Tab) 650 mg PO Q6 [facility] Last Admin: 09/19/17 22:16 Dose: 650 mg Vancomycin HCl (Vancocin (Oral/Rectal Use)) 500 mg PO Q6 [facility] PRN Reason: Protocol Stop: 09/29/17 10:01 Last Admin: 09/19/17 22:16 Dose: 500 mg - Labs Labs: 09/19/17 04:25 09/19/17 04:25 PT 11.0 Seconds (9.8-13.1) 09/14/17 17:01 INR 1.0 (0.9-1.2) 09/14/17 17:01 APTT 31.5 Seconds (25.6-37.1) 09/14/17 17:01 Assessment and Plan - Assessment and Plan (Free Text) Assessment: A ON CKD .. RENAL FUNCTION MUCH IMPROVED ELECTROLYTES ABN .. SEVERE HYPERKALEMIA .. K IS NOW OK ANEMIA OF CKD .. H/H STABLE UTI .. SEPSIS .. ON IVAB S/P REPLACEMENT OF URINARY STENTS BILATERALLY P : C/O CURRENT IVF C/O IVAB C/O PRESENT MANAGEMENT
[2017-09-20] MEDS: Vancomycin 500 mg (Oral/Rectal USE) PO SCH ×3 (03:51→16:13)
[2017-09-20] MEDS: Lactated Ringer's 1,000 ML IV SCH (03:52)
[2017-09-20 05:24] LABS: HEMOGLOBIN 10.7 g/dL (12.0-16.0); MEAN CELL VOLUME 83.8 fl (81.0-99.0); MEAN CORPUSCULAR HEMOGLOBIN 27.5 pg (27.0-31.0); MEAN CORPUSCULAR HGB CONC 32.8 g/dL (33.0-37.0); RBC 3.88 Mil/uL (3.80-5.20); RED CELL DISTRIBUTION WIDTH 13.1 % (11.5-14.5); WHITE BLOOD COUNT 7.7 K/uL (4.8-10.8)
[2017-09-20] MEDS: Insulin Lispro (humaLOG) 100 Units/ml Inj SC SCH ×3 (06:48→16:17)
[2017-09-20 08:21] VITALS: O2SAT 98
--- NOTE | 2017-09-20 09:14 | CP.PCM.PN ---
Subjective - Date & Time of Evaluation Date of Evaluation: 09/20/17 Time of Evaluation: 07:15 - Subjective Subjective: Pt seen and evalated at bedside. Stated she feels okay,and had no acute events overnight. States she only had one episode of diarrhea. Asked pt about physical therapy and participation, pt states she participated yesterday and has plans to participate today. Encouraged pt to participate in PT and to ambulate to bathroom when she needs to. Objective - Vital Signs/Intake and Output Vital Signs (last 24 hours): Temp Pulse Resp BP Pulse Ox 98.6 F 75 18 112/74 98 09/20/17 08:00 09/20/17 08:00 09/20/17 08:00 09/20/17 08:00 09/20/17 08:00 - Medications Medications: Current Medications Albuterol/Ipratropium (Duoneb 3 Mg/0.5 Mg (3 Ml) Ud) 3 ml INH RQ6 PRN PRN Reason: Shortness of Breath Atorvastatin Calcium (Lipitor) 10 mg PO DAILY [facility] Last Admin: 09/19/17 09:48 Dose: 10 mg Dextrose (Dextrose 50% Inj) 0 ml IV STAT PRN; Protocol PRN Reason: Hypoglycemia Protocol Dextrose (Glutose 15) 0 gm PO ONCE PRN; Protocol PRN Reason: Hypoglycemia Protocol Famotidine (Pepcid) 20 mg PO DAILY [facility] Last Admin: 09/19/17 09:48 Dose: 20 mg Glucagon (Glucagen Diagnostic Kit) 0 mg IM STAT PRN; Protocol PRN Reason: Hypoglycemia Protocol Heparin Sodium (Porcine) (Heparin) 5,000 units SC Q12 [facility] PRN Reason: Protocol Last Admin: 09/19/17 22:16 Dose: 5,000 units Cefepime HCl 1 gm/ Sodium (Chloride) 100 mls @ 100 mls/hr IVPB DAILY [facility] PRN Reason: Protocol Last Admin: 09/19/17 09:48 Dose: 100 mls/hr Lactated Ringer's (Lactated Ringer's) 1,000 mls @ 75 mls/hr IV .[id number] [facility] Last Admin: 09/20/17 03:52 Dose: 75 mls/hr Insulin Detemir (Levemir) 3 units SC HS [facility] Last Admin: 09/19/17 22:15 Dose: 3 units Insulin Human Lispro (Humalog) 0 units SC ACHS [facility] PRN Reason: Protocol Last Admin: 09/20/17 06:48 Dose: 4 units Ondansetron HCl (Zofran Inj) 4 mg IVP Q6 PRN PRN Reason: Nausea/Vomiting Last Admin: 09/16/17 16:45 Dose: 4 mg Sodium Bicarbonate (Sodium Bicarbonate Tab) 650 mg PO Q6 [facility] Last Admin: 09/20/17 03:51 Dose: 650 mg Vancomycin HCl (Vancocin (Oral/Rectal Use)) 500 mg PO Q6 [facility] PRN Reason: Protocol Stop: 09/29/17 10:01 Last Admin: 09/20/17 03:51 Dose: 500 mg - Labs Labs: 09/20/17 04:20 09/20/17 04:20 PT 11.0 Seconds (9.8-13.1) 09/14/17 17:01 INR 1.0 (0.9-1.2) 09/14/17 17:01 APTT 31.5 Seconds (25.6-37.1) 09/14/17 17:01 - Constitutional Appears: No Acute Distress, Chronically Ill - Head Exam Head Exam: NORMAL INSPECTION - Eye Exam Eye Exam: Normal appearance - ENT Exam ENT Exam: Mucous Membranes Moist - Neck Exam Neck Exam: Full ROM - Respiratory Exam Respiratory Exam: Clear to Ausculation Bilateral, NORMAL BREATHING PATTERN. absent: Respiratory Distress - Cardiovascular Exam Cardiovascular Exam: REGULAR RHYTHM, +S1, +S2 - GI/Abdominal Exam GI & Abdominal Exam: Soft, Normal Bowel Sounds. absent: Tenderness - Extremities Exam Extremities Exam: absent: Calf Tenderness - Back Exam Back Exam: NORMAL INSPECTION - Neurological Exam Neurological Exam: Alert, Awake - Skin Skin Exam: Dry, Intact Additional comments: multiple diffuse seborrheic keratoses Assessment and Plan - Assessment and Plan (Free Text) Assessment: 77 yo F, with PMH CKD, DM2, HTN, with hx of poor followup, admitted for sepsis ( UTI 2/2 to retained stents vs C. diff), metabolic acidosis, electrolyte derangement, and acute on chronic kidney injury. C. diff positive; s/p replacement of formerly retained ureteral stents. No longer septic, kidney function improving, trending towards baseline. Plan: # UTI - Clinically improving - Afebrile, leukocytosis resolved - Urinalysis + on admission - Urine Cx - straight cath pending; original sample contaminated - Blood Cx : no growth 24 x2 - ID consulted, Dr. Thomas - cefepime day 6 for /UTI coverage, continue pending repeat urine cx; continue oral vanco day 6 - Urology consult- Dr. Valentine- stents replaced 09/18 # Diarrhea 2/2 to C Diff - IV hydration - Oral vancomycin Day 6 - As per ID, repeat C diff ag/toxin - C. diff PCR - TOX B GENE identified, sample from 09/18 - Repeat c diff antigen/toxin from 09/20 NEG. - Stool cx: no salmonella, shigella, or campylobacter - Fecal leukocyte pending # Acute on Chronic Kidney Injury , improving - BUN/Cr this am: 62/3.7 - BUN/Cr on presentation: 132/10.3 - BUN/Cr upon D/C in 05/2017: 43/2.9 - Urine sodium 167 wnl, urine potassium 14.6 wnl, urine osmolality 424 on admission - hx of b/l renal stenting performed in 05/2017 - stents visible on abd CT; replaced today by urologist Dr. Valentine - Nephrology consult with Dr. Houston - pt refusing HD, continue w/ IV fluids, antibiotics; will follow for further recommendations # Metabolic Acidosis, resolved - No anion gap - CO2: 24 this am, <5 on admission - Sodium Bicarb 650 mg PO Q6 - monitor on BMP # Hyperkalemia, resolved - 4.4 today - monitor on BMP # Fecal Occult Blood Positive - Pt would benefit from outpt GI follow-up # IDDM2 with Hyperglycemia - s/p 5 units Regular insulin in ED - Levemir 3U QHS - Lispro correction scale, Q6H - accuchecks ACHS - hemoglobin A1C 12.0 # Right Adnexal Mass - Seen on CT on 2016, again seen on CT on this admission, stable in size # Hypertension - Pt has history, but normotensive at this time without medication - Monitor #) Diet - Renal diet #) Prophylactic Measures - Protonix 40mg IV QD - Heparin 5000 units Q12H
[2017-09-20] MEDS: Cefepime 1 GM in Sodium Chloride 0.9% 100 ML IVPB SCH (09:49)
--- NOTE | 2017-09-20 13:59 | CP.PCM.DIS ---
<Pastora Hill - Last Filed: 09/20/17 19:55> Provider - Provider Date of Admission: 09/14/17 18:37 Attending physician: Jose Juan Boswell Primary care physician: Dr. Crystal Boswell Consults: Infectious Disease- Dr. Thomas Urology- Dr. Valentine Nephrology- Dr. Houston Time Spent in preparation of Discharge (in minutes): 45 Diagnosis - Discharge Diagnosis (1) Clostridium difficile diarrhea Status: Acute Comment: C diff antigen, B gene positive. ID consulted, Dr. Thomas. Pt on oral vancomycin day 6. Diarrhea due to infection caused acute worsening of her CDK, marked acidosis, and hyperkalemia. Electrolyte derangement resolved with IV fluid hydration containing bicarbonate, and pt still on bicarb PO. Will continue oral vancomycin in TCU. (2) UTI (urinary tract infection) Status: Acute Comment: Urinalysis positive on admission; likely due to retained stents from . ID consulted- pt receiving renal dose of cefepime, day 6. Will be transferred to TCU to continue IV abx. (3) Acute on chronic renal failure Status: Acute Comment: Pt admitted with BUN 132 and Cr 10.3, CKD likely acutely affected by C. diff infection. (4) Uncontrolled diabetes mellitus Status: Chronic Comment: Uncontrolled, HbA1c 12. Receiving TDD of insulin based on renal function, but blood glucose suboptimally controlled. Pt does not take any medication at home. (5) Retained ureteral stent Status: Resolved Comment: Urology consulted- Dr. Valentine replaced pt's bilateral stents on 09/18. Hospital Course - Lab Results Lab Results: Micro Results 09/18/17 20:31 Urine,Clean Catch Urine Culture - Final No Growth (<1,000 CFU/ML) 09/15/17 18:18 Blood Blood Culture - Preliminary NO GROWTH AFTER 4 DAYS 09/15/17 18:08 Blood Blood Culture - Preliminary NO GROWTH AFTER 4 DAYS 09/14/17 17:13 Blood Blood Culture - Final NO GROWTH AFTER 5 DAYS 09/14/17 17:13 Blood Gram Stain - Final TEST NOT PERFORMED 09/14/17 17:13 Blood Blood Culture - Final NO GROWTH AFTER 5 DAYS 09/14/17 17:13 Blood Gram Stain - Final TEST NOT PERFORMED 09/14/17 22:33 Stool Stool Culture - Final NO SALMONELLA, SHIGELLA OR CAMPYLOBACTER ISOLATED. 09/15/17 08:27 Naris MRSA Culture (Admit) - Final MRSA NOT DETECTED 09/14/17 17:01 Urine,Clean Catch Urine Culture - Final 50-100,000 CFU/ML. MULTIPLE SPECIES. SUGGEST REPEAT SPECIMEN. Most Recent Lab Values WBC 7.7 K/uL (4.8-10.8) 09/20/17 04:20 RBC 3.88 Mil/uL (3.80-5.20) 09/20/17 04:20 Hgb 10.7 g/dL (12.0-16.0) L 09/20/17 04:20 Hct 32.5 % (34.0-47.0) L 09/20/17 04:20 MCV 83.8 fl (81.0-99.0) 09/20/17 04:20 MCH 27.5 pg (27.0-31.0) 09/20/17 04:20 MCHC 32.8 g/dL (33.0-37.0) L 09/20/17 04:20 RDW 13.1 % (11.5-14.5) 09/20/17 04:20 Plt Count 244 K/uL (130-400) 09/20/17 04:20 MPV 8.2 fl (7.2-11.7) 09/19/17 04:25 Neut % (Auto) 59.0 % (50.0-75.0) 09/19/17 04:25 Lymph % (Auto) 26.8 % (20.0-40.0) 09/19/17 04:25 [place] % (Auto) 11.7 % (0.0-10.0) H 09/19/17 04:25 Eos % (Auto) 2.2 % (0.0-4.0) 09/19/17 04:25 Baso % (Auto) 0.3 % (0.0-2.0) 09/19/17 04:25 Neut # (Auto) 4.8 K/uL (1.8-7.0) 09/19/17 04:25 Lymph # (Auto) 2.2 K/uL (1.0-4.3) 09/19/17 04:25 [place] # (Auto) 1.0 K/uL (0.0-0.8) H 09/19/17 04:25 Eos # (Auto) 0.2 K/uL (0.0-0.7) 09/19/17 04:25 Baso # (Auto) 0.0 K/uL (0.0-0.2) 09/19/17 04:25 Neutrophils % (Manual) 88 % (42-75) H 09/14/17 17:01 Band Neutrophils % 3 % (0-2) H 09/14/17 17:01 Lymphocytes % (Manual) 5 % (20-50) L 09/14/17 17:01 Reactive Lymphs % 1 % (0-0) H 09/14/17 17:01 Monocytes % (Manual) 3 % (0-10) 09/14/17 17:01 Toxic Granulation Present 09/14/17 17:01 Platelet Estimate Normal (NORMAL) 09/14/17 17:01 Anisocytosis (manual) Slight 09/14/17 17:01 [place] Cells Slight 09/14/17 17:01 PT 11.0 Seconds (9.8-13.1) 09/14/17 17:01 INR 1.0 (0.9-1.2) 09/14/17 17:01 APTT 31.5 Seconds (25.6-37.1) 09/14/17 17:01 pO2 18 mm/Hg (30-55) L 09/15/17 05:40 VBG pH 7.24 (7.32-7.43) L 09/15/17 05:40 VBG pCO2 31 mmHg (40-60) L 09/15/17 05:40 VBG HCO3 12.8 mmol/L 09/15/17 05:40 VBG Total CO2 14.3 mmol/L (22-28) L 09/15/17 05:40 VBG O2 Sat (Calc) 39.0 % (40-65) L 09/15/17 05:40 VBG Base Excess -12.8 mmol/L (0.0-2.0) L 09/15/17 05:40 VBG Potassium 5.5 mmol/L (3.6-5.2) H 09/15/17 05:40 Sodium 130.0 mmol/L (132-148) L 09/15/17 05:40 Chloride 107.0 mmol/L (98-107) 09/15/17 05:40 Glucose 265 mg/dL (65-105) H 09/15/17 05:40 Lactate 1.5 mmol/L (0.7-2.1) 09/15/17 05:40 FiO2 21.0 % 09/15/17 05:40 Crit Value Called To Wayne coughlin 09/14/17 21:00 Crit Value Called By Rt 09/14/17 21:00 Crit Value Read Back Y 09/14/17 21:00 Blood Gas Notified Time 210909/14/17 21:00 Sodium 134 mmol/l (132-148) 09/20/17 04:20 Potassium 4.4 MMOL/L (3.6-5.0) 09/20/17 04:20 Chloride 97 mmol/L (98-107) L 09/20/17 04:20 Carbon Dioxide 23 mmol/L (22-30) 09/20/17 04:20 Anion Gap 18 (10-20) 09/20/17 04:20 BUN 60 mg/dl (7-17) H 09/20/17 04:20 Creatinine 3.6 mg/dl (0.7-1.2) H 09/20/17 04:20 Est GFR ( Amer) 15 09/20/17 04:20 Est GFR (Non-Af Amer) 12 09/20/17 04:20 POC Glucose (mg/dL) 268 mg/dL (65-110) H 09/20/17 10:54 Random Glucose 240 mg/dL (65-105) H 09/20/17 04:20 Hemoglobin A1c 12.0 % (4.2-6.5) H 09/15/17 04:20 Lactic Acid 0.9 MMOL/L (0.7-2.1) 09/15/17 05:30 Calcium 8.0 mg/dL (8.4-10.2) L 09/20/17 04:20 Phosphorus 6.9 mg/dl (2.5-4.5) H 09/15/17 04:20 Magnesium 3.1 MG/DL (1.6-2.3) H 09/14/17 17:01 Total Bilirubin 0.4 mg/dl (0.2-1.3) 09/18/17 04:20 AST 40 U/L (14-36) H D 09/18/17 04:20 ALT 16 U/L (9-52) 09/18/17 04:20 Alkaline Phosphatase 99 U/L (38-126) 09/18/17 04:20 Troponin I 0.2090 ng/mL (0.00-0.120) H* 09/15/17 11:23 Total Protein 5.9 G/DL (6.3-8.2) L 09/18/17 04:20 Albumin 2.8 g/dL (3.5-5.0) L 09/18/17 04:20 Globulin 3.1 gm/dL (2.2-3.9) 09/18/17 04:20 Albumin/Globulin Ratio 0.9 (1.0-2.1) L 09/18/17 04:20 Lipase 1170 U/L (23-300) H 09/14/17 20:33 Procalcitonin 0.25 NG/ML (0.19-0.49) 09/14/17 19:43 Venous Blood Potassium 5.5 mmol/L (3.6-5.2) H 09/15/17 05:40 Urine Color Maya (YELLOW) 09/14/17 17:01 Urine Clarity Turbid (Clear) 09/14/17 17:01 Urine pH 6.0 (5.0-8.0) 09/14/17 17:01 Ur Specific [place] 1.013 (1.003-1.030) 09/14/17 17:01 Urine Protein >=500 mg/dL (NEGATIVE) 09/14/17 17:01 Urine Glucose (UA) Neg mg/dL (Normal) 09/14/17 17:01 Urine Ketones Trace mg/dL (NEGATIVE) 09/14/17 17:01 Urine Blood Moderate (NEGATIVE) 09/14/17 17:01 Urine Nitrate Negative (NEGATIVE) 09/14/17 17:01 Urine Bilirubin Negative (NEGATIVE) 09/14/17 17:01 Urine Urobilinogen 0.2-1.0 mg/dL (0.2-1.0) 09/14/17 17:01 Ur Leukocyte Esterase Large Emilio/uL (Negative) 09/14/17 17:01 Urine RBC (Auto) 5 /hpf (0-3) H 09/14/17 17:01 Urine Microscopic WBC 10 /hpf (0-5) H 09/14/17 17:01 Amorphous Sediment Rare /ul (<OCC) H 09/14/17 17:01 Urine Bacteria Rare (<OCC) 09/14/17 17:01 Urine Osmolality 424 mosm/kg (300-1000) 09/14/17 20:09 Ur Random Sodium 167 meq/L 09/14/17 20:09 Ur Random Potassium 14.6 mmol/L 09/14/17 20:09 Stool Occult Blood Positive (NEGATIVE) H 09/15/17 14:59 Stool Leukocytes, Qual Negative (NEGATIVE) 09/15/17 09:42 Alcohol, Quantitative < 10 mg/dl (0-10) 09/14/17 20:33 C. difficile Tox B Gene Detected (Not Detected) H 09/18/17 16:44 C. difficile Ag & Toxin Negative (NEGATIVE) 09/20/17 08:42 - Hospital Course Hospital Course: Pt was admitted for sepsis, acute on chronic kidney failure, severe electrolyte derangement in the setting of C. diff diarrhea and UTI likely due to retained ureteral stents from 04/2017. She received IV fluids containing bicarbonate to correct her acidosis and electrolyte imbalance, and IV antibiotics (cefepime), as well as oral vancomycin for UTI and C. diff respectively. Pt's kidney function improved throughout her hospital stay. Infectious disease specialist Dr. Longoria was consulted and antibiotic recommendations were appreciated and followed. Closing Machine Operator Dr. Houston was also consulted- advised to continue with IV hydration and noted improved kidney function (pt is not agreeable to dialysis ). Urologist Dr. Valentine was consulted- on 09/18 he replaced pt's stents. Wound care consult was also placed as pt is incontinent some of the time. Pt has been evaluated by physical therapy, and she was accepted to TCU for rehab of her deconditioning status, as she states she has not been very mobile in the weeks leading up to the admission. She was seen and evaluated this morning and reported decreased frequency of diarrhea, had no acute overnight events, and no complaints. Stated she participated in PT the day before. Discharge Exam - Head Exam Head Exam: NORMAL INSPECTION - Eye Exam Eye Exam: Normal appearance - ENT Exam ENT Exam: Mucous Membranes Moist - Respiratory Exam Respiratory Exam: Clear to PA & Lateral, NORMAL BREATHING PATTERN. absent: Respiratory Distress - Cardiovascular Exam Cardiovascular Exam: REGULAR RHYTHM, +S1, +S2 - GI/Abdominal Exam GI & Abdominal Exam: Normal Bowel Sounds, Soft, Unremarkable. absent: Distended , Tenderness - Extremities Exam Extremities exam: normal capillary refill - Neurological Exam Neurological exam: Alert - Skin Skin Exam: Dry, Intact Additional comments: multiple diffuse seborrheic keratoses Discharge Plan - Follow Up Plan Condition: STABLE Disposition: TRANSF TO [facility] Patient education suggested?: Yes Instructions: Urinary Tract Infections in Adults, Clostridium difficile Referrals: Jose Juan Boswell MD [Family Provider] - (Follow up in 1 week after leaving TCU.) <Jose Juan Boswell - Last Filed: 09/22/17 07:02> Provider - Provider Date of Admission: 09/14/17 18:37 Attending physician: Mone Valle MD Hospital Course - Lab Results Lab Results: Micro Results 09/19/17 19:06 Urine,Catheterized Urine Culture - Final No Growth (<1,000 CFU/ML) 09/15/17 18:18 Blood Blood Culture - Final NO GROWTH AFTER 5 DAYS 09/15/17 18:18 Blood Gram Stain - Final TEST NOT PERFORMED 09/15/17 18:08 Blood Blood Culture - Final NO GROWTH AFTER 5 DAYS 09/18/17 20:31 Urine,Clean Catch Urine Culture - Final No Growth (<1,000 CFU/ML) 09/14/17 17:13 Blood Blood Culture - Final NO GROWTH AFTER 5 DAYS 09/14/17 17:13 Blood Gram Stain - Final TEST NOT PERFORMED 09/14/17 17:13 Blood Blood Culture - Final NO GROWTH AFTER 5 DAYS 09/14/17 17:13 Blood Gram Stain - Final TEST NOT PERFORMED 09/14/17 22:33 Stool Stool Culture - Final NO SALMONELLA, SHIGELLA OR CAMPYLOBACTER ISOLATED. 09/15/17 08:27 Naris MRSA Culture (Admit) - Final MRSA NOT DETECTED 09/14/17 17:01 Urine,Clean Catch Urine Culture - Final 50-100,000 CFU/ML. MULTIPLE SPECIES. SUGGEST REPEAT SPECIMEN. Most Recent Lab Values WBC 7.7 K/uL (4.8-10.8) 09/20/17 04:20 RBC 3.88 Mil/uL (3.80-5.20) 09/20/17 04:20 Hgb 10.7 g/dL (12.0-16.0) L 09/20/17 04:20 Hct 32.5 % (34.0-47.0) L 09/20/17 04:20 MCV 83.8 fl (81.0-99.0) 09/20/17 04:20 MCH 27.5 pg (27.0-31.0) 09/20/17 04:20 MCHC 32.8 g/dL (33.0-37.0) L 09/20/17 04:20 RDW 13.1 % (11.5-14.5) 09/20/17 04:20 Plt Count 244 K/uL (130-400) 09/20/17 04:20 MPV 8.2 fl (7.2-11.7) 09/19/17 04:25 Neut % (Auto) 59.0 % (50.0-75.0) 09/19/17 04:25 Lymph % (Auto) 26.8 % (20.0-40.0) 09/19/17 04:25 [place] % (Auto) 11.7 % (0.0-10.0) H 09/19/17 04:25 Eos % (Auto) 2.2 % (0.0-4.0) 09/19/17 04:25 Baso % (Auto) 0.3 % (0.0-2.0) 09/19/17 04:25 Neut # (Auto) 4.8 K/uL (1.8-7.0) 09/19/17 04:25 Lymph # (Auto) 2.2 K/uL (1.0-4.3) 09/19/17 04:25 [place] # (Auto) 1.0 K/uL (0.0-0.8) H 09/19/17 04:25 Eos # (Auto) 0.2 K/uL (0.0-0.7) 09/19/17 04:25 Baso # (Auto) 0.0 K/uL (0.0-0.2) 09/19/17 04:25 Neutrophils % (Manual) 88 % (42-75) H 09/14/17 17:01 Band Neutrophils % 3 % (0-2) H 09/14/17 17:01 Lymphocytes % (Manual) 5 % (20-50) L 09/14/17 17:01 Reactive Lymphs % 1 % (0-0) H 09/14/17 17:01 Monocytes % (Manual) 3 % (0-10) 09/14/17 17:01 Toxic Granulation Present 09/14/17 17:01 Platelet Estimate Normal (NORMAL) 09/14/17 17:01 Anisocytosis (manual) Slight 09/14/17 17:01 [place] Cells Slight 09/14/17 17:01 PT 11.0 Seconds (9.8-13.1) 09/14/17 17:01 INR 1.0 (0.9-1.2) 09/14/17 17:01 APTT 31.5 Seconds (25.6-37.1) 09/14/17 17:01 pO2 18 mm/Hg (30-55) L 09/15/17 05:40 VBG pH 7.24 (7.32-7.43) L 09/15/17 05:40 VBG pCO2 31 mmHg (40-60) L 09/15/17 05:40 VBG HCO3 12.8 mmol/L 09/15/17 05:40 VBG Total CO2 14.3 mmol/L (22-28) L 09/15/17 05:40 VBG O2 Sat (Calc) 39.0 % (40-65) L 09/15/17 05:40 VBG Base Excess -12.8 mmol/L (0.0-2.0) L 09/15/17 05:40 VBG Potassium 5.5 mmol/L (3.6-5.2) H 09/15/17 05:40 Sodium 130.0 mmol/L (132-148) L 09/15/17 05:40 Chloride 107.0 mmol/L (98-107) 09/15/17 05:40 Glucose 265 mg/dL (65-105) H 09/15/17 05:40 Lactate 1.5 mmol/L (0.7-2.1) 09/15/17 05:40 FiO2 21.0 % 09/15/17 05:40 Crit Value Called To Wayne coughlin 09/14/17 21:00 Crit Value Called By Rt 09/14/17 21:00 Crit Value Read Back Y 09/14/17 21:00 Blood Gas Notified Time 210909/14/17 21:00 Sodium 134 mmol/l (132-148) 09/20/17 04:20 Potassium 4.4 MMOL/L (3.6-5.0) 09/20/17 04:20 Chloride 97 mmol/L (98-107) L 09/20/17 04:20 Carbon Dioxide 23 mmol/L (22-30) 09/20/17 04:20 Anion Gap 18 (10-20) 09/20/17 04:20 BUN 60 mg/dl (7-17) H 09/20/17 04:20 Creatinine 3.6 mg/dl (0.7-1.2) H 09/20/17 04:20 Est GFR ( Amer) 15 09/20/17 04:20 Est GFR (Non-Af Amer) 12 09/20/17 04:20 POC Glucose (mg/dL) 268 mg/dL (65-110) H 09/20/17 16:00 Random Glucose 240 mg/dL (65-105) H 09/20/17 04:20 Hemoglobin A1c 12.0 % (4.2-6.5) H 09/15/17 04:20 Lactic Acid 0.9 MMOL/L (0.7-2.1) 09/15/17 05:30 Calcium 8.0 mg/dL (8.4-10.2) L 09/20/17 04:20 Phosphorus 6.9 mg/dl (2.5-4.5) H 09/15/17 04:20 Magnesium 3.1 MG/DL (1.6-2.3) H 09/14/17 17:01 Total Bilirubin 0.4 mg/dl (0.2-1.3) 09/18/17 04:20 AST 40 U/L (14-36) H D 09/18/17 04:20 ALT 16 U/L (9-52) 09/18/17 04:20 Alkaline Phosphatase 99 U/L (38-126) 09/18/17 04:20 Troponin I 0.2090 ng/mL (0.00-0.120) H* 09/15/17 11:23 Total Protein 5.9 G/DL (6.3-8.2) L 09/18/17 04:20 Albumin 2.8 g/dL (3.5-5.0) L 09/18/17 04:20 Globulin 3.1 gm/dL (2.2-3.9) 09/18/17 04:20 Albumin/Globulin Ratio 0.9 (1.0-2.1) L 09/18/17 04:20 Lipase 1170 U/L (23-300) H 09/14/17 20:33 Procalcitonin 0.25 NG/ML (0.19-0.49) 09/14/17 19:43 Venous Blood Potassium 5.5 mmol/L (3.6-5.2) H 09/15/17 05:40 Urine Color Maya (YELLOW) 09/14/17 17:01 Urine Clarity Turbid (Clear) 09/14/17 17:01 Urine pH 6.0 (5.0-8.0) 09/14/17 17:01 Ur Specific [place] 1.013 (1.003-1.030) 09/14/17 17:01 Urine Protein >=500 mg/dL (NEGATIVE) 09/14/17 17:01 Urine Glucose (UA) Neg mg/dL (Normal) 09/14/17 17:01 Urine Ketones Trace mg/dL (NEGATIVE) 09/14/17 17:01 Urine Blood Moderate (NEGATIVE) 09/14/17 17:01 Urine Nitrate Negative (NEGATIVE) 09/14/17 17:01 Urine Bilirubin Negative (NEGATIVE) 09/14/17 17:01 Urine Urobilinogen 0.2-1.0 mg/dL (0.2-1.0) 09/14/17 17:01 Ur Leukocyte Esterase Large Emilio/uL (Negative) 09/14/17 17:01 Urine RBC (Auto) 5 /hpf (0-3) H 09/14/17 17:01 Urine Microscopic WBC 10 /hpf (0-5) H 09/14/17 17:01 Amorphous Sediment Rare /ul (<OCC) H 09/14/17 17:01 Urine Bacteria Rare (<OCC) 09/14/17 17:01 Urine Osmolality 424 mosm/kg (300-1000) 09/14/17 20:09 Ur Random Sodium 167 meq/L 09/14/17 20:09 Ur Random Potassium 14.6 mmol/L 09/14/17 20:09 Stool Sodium 11.50 mEq/L 09/15/17 14:48 Stool Potassium 72 mEq/L 09/15/17 14:48 Stool Chloride 6 mEq/L 09/15/17 14:48 Stool Occult Blood Positive (NEGATIVE) H 09/15/17 14:59 Stool Leukocytes, Qual Negative (NEGATIVE) 09/15/17 09:42 Alcohol, Quantitative < 10 mg/dl (0-10) 09/14/17 20:33 C. difficile Tox B Gene Detected (Not Detected) H 09/18/17 16:44 C. difficile Ag & Toxin Negative (NEGATIVE) 09/20/17 08:42 Attending/Attestation - Attestation I have personally seen and examined this patient.: Yes I have fully participated in the care of the patient.: Yes I have reviewed all pertinent clinical information, including history, physical exam and plan: Yes
--- NOTE | 2017-09-20 15:47 | CP.PCM.PN ---
Subjective - Date & Time of Evaluation Date of Evaluation: 09/20/17 Time of Evaluation: 15:46 - Subjective Subjective: ID Note- Pt. seen and examined today. she denies any fever or chills. states had 2 loose BM today. Objective - Vital Signs/Intake and Output Vital Signs (last 24 hours): Temp Pulse Resp BP Pulse Ox 97.9 F 85 18 120/85 98 09/20/17 11:59 09/20/17 11:59 09/20/17 11:59 09/20/17 11:59 09/20/17 11:59 - Medications Medications: Current Medications Albuterol/Ipratropium (Duoneb 3 Mg/0.5 Mg (3 Ml) Ud) 3 ml INH RQ6 PRN PRN Reason: Shortness of Breath Atorvastatin Calcium (Lipitor) 10 mg PO DAILY [facility] Last Admin: 09/20/17 09:47 Dose: 10 mg Dextrose (Dextrose 50% Inj) 0 ml IV STAT PRN; Protocol PRN Reason: Hypoglycemia Protocol Dextrose (Glutose 15) 0 gm PO ONCE PRN; Protocol PRN Reason: Hypoglycemia Protocol Famotidine (Pepcid) 20 mg PO DAILY [facility] Last Admin: 09/20/17 09:47 Dose: 20 mg Glucagon (Glucagen Diagnostic Kit) 0 mg IM STAT PRN; Protocol PRN Reason: Hypoglycemia Protocol Heparin Sodium (Porcine) (Heparin) 5,000 units SC Q12 [facility] PRN Reason: Protocol Last Admin: 09/20/17 09:47 Dose: 5,000 units Cefepime HCl 1 gm/ Sodium (Chloride) 100 mls @ 100 mls/hr IVPB DAILY [facility] PRN Reason: Protocol Last Admin: 09/20/17 09:49 Dose: 100 mls/hr Lactated Ringer's (Lactated Ringer's) 1,000 mls @ 75 mls/hr IV .[id number] [facility] Last Admin: 09/20/17 03:52 Dose: 75 mls/hr Insulin Detemir (Levemir) 3 units SC HS [facility] Last Admin: 09/19/17 22:15 Dose: 3 units Insulin Human Lispro (Humalog) 0 units SC ACHS [facility] PRN Reason: Protocol Last Admin: 09/20/17 13:50 Dose: 4 units Ondansetron HCl (Zofran Inj) 4 mg IVP Q6 PRN PRN Reason: Nausea/Vomiting Last Admin: 09/16/17 16:45 Dose: 4 mg Sodium Bicarbonate (Sodium Bicarbonate Tab) 650 mg PO Q6 [facility] Last Admin: 09/20/17 09:47 Dose: 650 mg Vancomycin HCl (Vancocin (Oral/Rectal Use)) 500 mg PO Q6 [facility] PRN Reason: Protocol Stop: 09/29/17 10:01 Last Admin: 09/20/17 09:48 Dose: 500 mg - Labs Labs: - Additional Findings Additional findings: - Head Exam Head Exam: ATRAUMATIC - Eye Exam Eye Exam: EOMI, PERRL - ENT Exam ENT Exam: Normal Oropharynx - Neck Exam Neck exam: Positive for: Full Rom Additional comments: supple - Respiratory Exam Respiratory Exam: Clear to Auscultation Bilateral, NORMAL BREATHING PATTERN - Cardiovascular Exam Cardiovascular Exam: RRR, +S1, +S2 - GI/Abdominal Exam GI & Abdominal Exam: Normal Bowel Sounds, Soft Additional comments: No distention mild tenderness with palpation in lower abd region No guarding, no rebound no CVA tenderness B/L - Extremities Exam Extremities exam: Positive for: pedal edema Additional comments: 1+ edema B/L LE - Neurological Exam Neurological exam: Alert, Oriented x 3 Laboratory Results - last 72 hr 09/17/17 09/17/17 09/18/17 16:58 21:12 04:20 WBC RBC Hgb Hct MCV MCH MCHC RDW Plt Count MPV Neut % (Auto) Lymph % (Auto) Cook % (Auto) Eos % (Auto) Baso % (Auto) Neut # (Auto) Lymph # (Auto) Cook # (Auto) Eos # (Auto) Baso # (Auto) Sodium 133 Potassium 4.3 Chloride 98 Carbon Dioxide 19 L Anion Gap 20 BUN 69 H Creatinine 3.6 H Est GFR ( Amer) 15 Est GFR (Non-Af Amer) 12 POC Glucose (mg/dL) 209 H 212 H Random Glucose 173 H Calcium 8.0 L Total Bilirubin 0.4 AST 40 H D ALT 16 Alkaline Phosphatase 99 Total Protein 5.9 L Albumin 2.8 L Globulin 3.1 Albumin/Globulin Ratio 0.9 L C. difficile Tox B Gene C. difficile Ag & Toxin 09/18/17 09/18/17 09/18/17 04:20 05:08 10:32 WBC 8.3 RBC 4.07 Hgb 11.4 L Hct 35.2 MCV 86.5 D MCH 28.0 MCHC 32.3 L RDW 13.9 Plt Count 229 MPV 8.0 Neut % (Auto) 74.0 Lymph % (Auto) 17.0 L Cook % (Auto) 7.4 Eos % (Auto) 1.3 Baso % (Auto) 0.3 Neut # (Auto) 6.1 Lymph # (Auto) 1.4 Cook # (Auto) 0.6 Eos # (Auto) 0.1 Baso # (Auto) 0.0 Sodium Potassium Chloride Carbon Dioxide Anion Gap BUN Creatinine Est GFR ( Amer) Est GFR (Non-Af Amer) POC Glucose (mg/dL) 169 H 171 H Random Glucose Calcium Total Bilirubin AST ALT Alkaline Phosphatase Total Protein Albumin Globulin Albumin/Globulin Ratio C. difficile Tox B Gene C. difficile Ag & Toxin 09/18/17 09/18/17 09/18/17 12:44 15:57 16:44 WBC RBC Hgb Hct MCV MCH MCHC RDW Plt Count MPV Neut % (Auto) Lymph % (Auto) Cook % (Auto) Eos % (Auto) Baso % (Auto) Neut # (Auto) Lymph # (Auto) Cook # (Auto) Eos # (Auto) Baso # (Auto) Sodium Potassium Chloride Carbon Dioxide Anion Gap BUN Creatinine Est GFR ( Amer) Est GFR (Non-Af Amer) POC Glucose (mg/dL) 217 H 222 H Random Glucose Calcium Total Bilirubin AST ALT Alkaline Phosphatase Total Protein Albumin Globulin Albumin/Globulin Ratio C. difficile Tox B Gene Detected H C. difficile Ag & Toxin 09/18/17 09/19/17 09/19/17 21:24 04:25 04:25 WBC 8.2 RBC 3.86 Hgb 10.5 L Hct 32.6 L MCV 84.6 MCH 27.3 MCHC 32.2 L RDW 13.4 Plt Count 226 MPV 8.2 Neut % (Auto) 59.0 Lymph % (Auto) 26.8 Cook % (Auto) 11.7 H Eos % (Auto) 2.2 Baso % (Auto) 0.3 Neut # (Auto) 4.8 Lymph # (Auto) 2.2 Cook # (Auto) 1.0 H Eos # (Auto) 0.2 Baso # (Auto) 0.0 Sodium 132 Potassium 4.4 Chloride 95 L Carbon Dioxide 24 Anion Gap 17 BUN 62 H Creatinine 3.7 H Est GFR ( Amer) 14 Est GFR (Non-Af Amer) 12 POC Glucose (mg/dL) 213 H Random Glucose 211 H Calcium 7.8 L Total Bilirubin AST ALT Alkaline Phosphatase Total Protein Albumin Globulin Albumin/Globulin Ratio C. difficile Tox B Gene C. difficile Ag & Toxin 09/19/17 09/19/17 09/19/17 05:34 05:36 10:31 WBC RBC Hgb Hct MCV MCH MCHC RDW Plt Count MPV Neut % (Auto) Lymph % (Auto) Cook % (Auto) Eos % (Auto) Baso % (Auto) Neut # (Auto) Lymph # (Auto) Cook # (Auto) Eos # (Auto) Baso # (Auto) Sodium Potassium Chloride Carbon Dioxide Anion Gap BUN Creatinine Est GFR ( Amer) Est GFR (Non-Af Amer) POC Glucose (mg/dL) 386 H 200 H 244 H Random Glucose Calcium Total Bilirubin AST ALT Alkaline Phosphatase Total Protein Albumin Globulin Albumin/Globulin Ratio C. difficile Tox B Gene C. difficile Ag & Toxin 09/19/17 09/19/17 09/20/17 16:03 21:35 04:20 WBC 7.7 RBC 3.88 Hgb 10.7 L Hct 32.5 L MCV 83.8 MCH 27.5 MCHC 32.8 L RDW 13.1 Plt Count 244 MPV Neut % (Auto) Lymph % (Auto) Cook % (Auto) Eos % (Auto) Baso % (Auto) Neut # (Auto) Lymph # (Auto) Cook # (Auto) Eos # (Auto) Baso # (Auto) Sodium Potassium Chloride Carbon Dioxide Anion Gap BUN Creatinine Est GFR ( Amer) Est GFR (Non-Af Amer) POC Glucose (mg/dL) 255 H 207 H Random Glucose Calcium Total Bilirubin AST ALT Alkaline Phosphatase Total Protein Albumin Globulin Albumin/Globulin Ratio C. difficile Tox B Gene C. difficile Ag & Toxin 09/20/17 09/20/17 09/20/17 04:20 05:28 08:42 WBC RBC Hgb Hct MCV MCH MCHC RDW Plt Count MPV Neut % (Auto) Lymph % (Auto) Cook % (Auto) Eos % (Auto) Baso % (Auto) Neut # (Auto) Lymph # (Auto) Cook # (Auto) Eos # (Auto) Baso # (Auto) Sodium 134 Potassium 4.4 Chloride 97 L Carbon Dioxide 23 Anion Gap 18 BUN 60 H Creatinine 3.6 H Est GFR ( Amer) 15 Est GFR (Non-Af Amer) 12 POC Glucose (mg/dL) 252 H Random Glucose 240 H Calcium 8.0 L Total Bilirubin AST ALT Alkaline Phosphatase Total Protein Albumin Globulin Albumin/Globulin Ratio C. difficile Tox B Gene C. difficile Ag & Toxin Negative 09/20/17 10:54 WBC RBC Hgb Hct MCV MCH MCHC RDW Plt Count MPV Neut % (Auto) Lymph % (Auto) Cook % (Auto) Eos % (Auto) Baso % (Auto) Neut # (Auto) Lymph # (Auto) Cook # (Auto) Eos # (Auto) Baso # (Auto) Sodium Potassium Chloride Carbon Dioxide Anion Gap BUN Creatinine Est GFR ( Amer) Est GFR (Non-Af Amer) POC Glucose (mg/dL) 268 H Random Glucose Calcium Total Bilirubin AST ALT Alkaline Phosphatase Total Protein Albumin Globulin Albumin/Globulin Ratio C. difficile Tox B Gene C. difficile Ag & Toxin Microbiology 09/18/17 20:31 Urine,Clean Catch Urine Culture - Final No Growth (<1,000 CFU/ML) 09/15/17 18:18 Blood Blood Culture - Preliminary NO GROWTH AFTER 4 DAYS 09/15/17 18:08 Blood Blood Culture - Preliminary NO GROWTH AFTER 4 DAYS 09/14/17 17:13 Blood Blood Culture - Final NO GROWTH AFTER 5 DAYS 09/14/17 17:13 Blood Gram Stain - Final TEST NOT PERFORMED 09/14/17 17:13 Blood Blood Culture - Final NO GROWTH AFTER 5 DAYS 09/14/17 17:13 Blood Gram Stain - Final TEST NOT PERFORMED 09/14/17 22:33 Stool Stool Culture - Final NO SALMONELLA, SHIGELLA OR CAMPYLOBACTER ISOLATED. 09/15/17 08:27 Naris MRSA Culture (Admit) - Final MRSA NOT DETECTED 09/14/17 17:01 Urine,Clean Catch Urine Culture - Final 50-100,000 CFU/ML. MULTIPLE SPECIES. SUGGEST REPEAT SPECIMEN. Assessment and Plan (1) Severe sepsis Status: Acute (2) Acute on chronic renal failure Status: Acute (3) UTI (urinary tract infection) Status: Acute (4) Clostridium difficile diarrhea Status: Acute (5) Hydronephrosis Status: Acute (6) Retained ureteral stent Status: Resolved - Assessment and Plan (Free Text) Assessment: A/P- 77 y/o female with HTN, uncontrolled DM II, acute on chronic renal disease, retained b/l uretreal stents for hydronephrosis. clinically improved. afebrile past 5 days. Leukocytosis has resolved. + UA on admission acute on chronic renal insufficiency, better now blood cx- neg x 2 urine cx- multiple organisms hence most likely contaminant repeat urine cx- negative ( post ureteral stent replacment) stool c.diff- pos x 2 1. sepsis 2.hydronephrosis s/p ureterals tents for past 4 months 3.uncontrolled diabetes 4. acute on chronic renal disease 5.c.diff associated diarrhea PLan- advise to continue with the oral vancomycin for the c.diff associated diarrhea. day #6. advise total of 14 days of oral vanco for c.diff diarrhea. has completed 6 days of IV cefepime for UTI secondary to retained ureteral stents. advise to continue cefepime for 1 more day.
[2017-09-20 15:49] VITALS: BP 100/67; PULSE 78; TEMP 99.4
[2017-09-20] MEDS ORDERED: Sterile Water 10 ML IV ONE (16:17)
--- NOTE | 2017-09-21 15:37 | PQF SEPSIS ---
Dr. Ceron pt was admitted with sepsis. Consult dated 09/[address] Thomas documented "source of the infection and sepsis most likely the retained ureteral stents." Do you agree with consults documentation? If not please clarify source of sepsis below. This form is a permanent part of the medical record Clarification of your documentation is requested to better reflect the severity of illness and intensity of treatment of your patient. Indicators present [] Temp < 96.8 or > 100.4 [] WBC count > 12,000/mm3 or <000/mm3 or 10% immature neutrophils [] Heart Rate > 90 [] Respiratory Rate > 20 [] Fever or hypothermia [] Chills [] Positive blood cultures [] Hypotension [] Metabolic acidosis (Elevated lactate level, anion gap or reduced blood pH) [] Acute confusion /Altered Mental Status [] Shock [] Other: [] Location in the medical record that reflects the above clinical findings: [] Treatment Provided: [] PHYSICIAN'S RESPONSE Based on your medical judgment of the clinical indicators outlined above, are you treating this patient for a known or suspected: [] Sepsis / Septicemia Please specify organism if known [] [] SIRS (Systemic Inflammatory Response Syndrome) [] Severe Sepsis (Sepsis with Associated Organ Dysfunction) [] Fever of Unknown Origin [] Other, please indicate: [] [] If Unable to Determine, please check the box, sign and date. Present On Admission (POA) Indicator: [] Present at the time of admission [] Not present at the time of admission [] Clinically Undetermined In responding to this query, please exercise your independent professional judgment. The fact that a question is asked does not imply that any particular answer is desired or expected. Thank you for your clarification on this documentation. If you have any questions please call:[ ] * Thank you, [ ]Fiorella Rivera runner on [employer]
[2017-09-22 06:18] LABS: STOOL SODIUM 11.5 mEq/L
== END 2017-09-20 18:40 | DRG 698 ==
LOC: H.ER 14:57 → H.ERHOLD 18:37 → H.ICU/CCU 23:00 → H.TEL 09-15 17:55
PROVIDERS: ADMIT Family Medicine; ATTEND Family Medicine Geriatric Medicine
PROC: 06HN33Z Insertion of Infusion Device into Left Femoral Vein, Percutaneous Approach (ICD-10-PCS; 2017-09-14)
PROC: 0TP98DZ Removal of Intraluminal Device from Ureter, Via Natural or Artificial Opening Endoscopic (ICD-10-PCS; 2017-09-18)
PROC: 0T788DZ Dilation of Bilateral Ureters with Intraluminal Device, Via Natural or Artificial Opening Endoscopic (ICD-10-PCS; 2017-09-18)
PROC: 0TP98DZ Removal of Intraluminal Device from Ureter, Via Natural or Artificial Opening Endoscopic (ICD-10-PCS; principal; 2017-09-18 08:45)
DX: T83.592A Infection and inflammatory reaction due to indwelling ureteral stent, initial encounter (principal); K85.90 Acute pancreatitis without necrosis or infection, unspecified; R65.20 Severe sepsis without septic shock; A41.9 Sepsis, unspecified organism; A04.72 Enterocolitis due to Clostridium difficile, not specified as recurrent; N17.9 Acute kidney failure, unspecified; N18.4 Chronic kidney disease, stage 4 (severe); E87.2 Acidosis; N13.30 Unspecified hydronephrosis; E11.22 Type 2 diabetes mellitus with diabetic chronic kidney disease; E11.65 Type 2 diabetes mellitus with hyperglycemia; E87.5 Hyperkalemia; N30.90 Cystitis, unspecified without hematuria; I12.9 Hypertensive chronic kidney disease with stage 1 through stage 4 chronic kidney disease, or unspecified chronic kidney disease; E78.00 Pure hypercholesterolemia, unspecified; E78.5 Hyperlipidemia, unspecified; J44.9 Chronic obstructive pulmonary disease, unspecified; Z79.4 Long term (current) use of insulin; F32.9 Major depressive disorder, single episode, unspecified; Y73.2 Prosthetic and other implants, materials and accessory gastroenterology and urology devices associated with adverse incidents; Y84.6 Urinary catheterization as the cause of abnormal reaction of the patient, or of later complication, without mention of misadventure at the time of the procedure; E86.0 Dehydration; L82.1 Other seborrheic keratosis; D63.1 Anemia in chronic kidney disease; R19.5 Other fecal abnormalities; R25.3 Fasciculation; F41.9 Anxiety disorder, unspecified; M19.90 Unspecified osteoarthritis, unspecified site

== ENCOUNTER 2017-09-20 16:14 | Inpatient (IN) | payer MEDICARE, OTHER ==
[2017-09-20 19:13] VITALS: BMI 28.8
[2017-09-20 19:52] VITALS: RESP 20
[2017-09-20] MEDS ORDERED: Dextrose 50% SYRINGE Inj (50 ml) IV PRN (20:09)
[2017-09-20] MEDS ORDERED: Glucagon Recombinant 1 mg Inj IM PRN (20:09)
[2017-09-20] MEDS: Insulin Detemir 100 Units/ml Inj SC SCH (21:25)
[2017-09-20] MEDS: Insulin Lispro (humaLOG) 100 Units/ml Inj SC SCH (21:25)
[2017-09-20] MEDS: Vancomycin 500 mg (Oral/Rectal USE) PO SCH (21:54)
[2017-09-21] MEDS: Vancomycin 500 mg (Oral/Rectal USE) PO SCH ×4 (03:31→21:20)
--- NOTE | 2017-09-21 06:33 | CP.PCM.HP ---
<Pastora Hill - Last Filed: 09/21/17 17:43> History of Present Illness - History of Present Illness History of Present Illness: 77 y/o female with PMHx uncontrolled IDDM2, HTN, CKD4, hydronephrosis, depression admitted to TCU for IV antibiotics and physical therapy after admission to telemetry for C. diff associated diarrhea resulting in acute on chronic renal failure, acidosis, hyperkalemia, and UTI due to retained ureteral stents from 04/2017. Stents were replaced by urologist Dr. Valentine, and she has been taking oral vancomycin and receiving IV cefepiMe. Pt's diarrhea has improved significantly during her hospital stay. At current admission, she still has 1-2 episodes of diarrhea per day. No other complaints today; states she is looking forward to going home after completing antibiotics and participating in physical therapy. PMD: Dr. Boswell; pt has poor followup. PMHx: IDDM2, CKD, HTN, Depression, Iron def anemia, hydronephrosis s/p b/l renal stenting in 2016 and replacement of stents 09/18/17, Klebsiella UTI Past Surg hx: B/L Renal stenting 05/26 and replacement 09/24, tonsillectomy, left wrist ORIF Allergies: NKDA LMP: >20 years ago Social Hx: denies ETOH/tobacco/drug abuse, lives at home in [place] with son Family Hx: unknown family hx Next of Kin: son, Ede Reza, [phone] Code Status: Full code Present on Admission - Present on Admission Any Indicators Present on Admission: Yes History of Uncontrolled Diabetes: Yes Review of Systems - Review of Systems All systems: reviewed and no additional remarkable complaints except - Gastrointestinal Gastrointestinal: As Per HPI, Diarrhea Past Patient History - Infectious Disease Hx of Infectious Diseases: None - Past Medical History & Family History Past Medical History?: Yes - Past Social History Smoking Status: Never Smoked Alcohol: None Drugs: Denies Home Situation {Lives}: With Family - CARDIAC Hx Cardiac Disorders: Yes Hx Hypercholesterolemia: Yes Hx Hypertension: Yes - PULMONARY Hx Respiratory Disorders: Yes Hx Chronic Obstructive Pulmonary Disease (COPD): Yes Hx Pneumonia: Yes - NEUROLOGICAL Hx Neurological Disorder: No - HEENT Hx HEENT Problems: No - RENAL Hx Chronic Kidney Disease: Yes Hx Renal Failure: Yes - ENDOCRINE/METABOLIC Hx Endocrine Disorders: Yes Hx Diabetes Mellitus Type 2: Yes - HEMATOLOGICAL/ONCOLOGICAL Hx Blood Disorders: No - INTEGUMENTARY Hx Dermatological Problems: No - MUSCULOSKELETAL/RHEUMATOLOGICAL Hx Arthritis: Yes Hx Falls: No - GASTROINTESTINAL Hx Gastrointestinal Disorders: No - GENITOURINARY/GYNECOLOGICAL Hx Genitourinary Disorders: Yes Hx Incontinence: Yes - PSYCHIATRIC Hx Psychophysiologic Disorder: Yes Hx Anxiety: Yes Hx Depression: Yes Hx Substance Use: No - SURGICAL HISTORY Hx Hysterectomy: Yes Hx Open Reduction Internal Fixation: Yes (left wrist) Hx Tonsillectomy: Yes Other/Comment: bilateral ureteral stent placement may 2017, replacement september 2017 - ANESTHESIA Hx Anesthesia: Yes Hx Anesthesia Reactions: No Hx Malignant Hyperthermia: No Meds Allergies/Adverse Reactions: Allergies Allergy/AdvReac Type Severity Reaction Status Date / Time No Known Allergies Allergy Verified 05/08/17 21:15 Physical Exam - Constitutional Appears: Non-toxic, No Acute Distress, Chronically Ill - Head Exam Head Exam: ATRAUMATIC, NORMAL INSPECTION - Eye Exam Eye Exam: Normal appearance - ENT Exam ENT Exam: Mucous Membranes Moist - Respiratory Exam Respiratory Exam: Clear to Auscultation Bilateral, NORMAL BREATHING PATTERN. absent: Wheezes, Respiratory Distress - Cardiovascular Exam Cardiovascular Exam: REGULAR RHYTHM, +S1, +S2 - GI/Abdominal Exam GI & Abdominal Exam: Normal Bowel Sounds, Soft. absent: Distended, Tenderness - Extremities Exam Extremities exam: Positive for: normal capillary refill, normal inspection. Negative for: calf tenderness - Back Exam Back exam: NORMAL INSPECTION - Neurological Exam Neurological exam: Alert - Skin Skin Exam: Dry, Intact, Warm Additional comments: multiple, diffuse seborrheic keratoses Results - Vital Signs Recent Vital Signs: Last Vital Signs Temp 99.0 F 09/20/17 19:51 Pulse 76 09/20/17 19:51 Resp 20 09/20/17 19:51 BP 109/56 L 09/20/17 19:51 Pulse Ox 98 09/20/17 19:51 - Labs Result Diagrams: 09/21/17 07:29 09/21/17 07:29 Labs: Laboratory Results - last 24 hr 09/20/17 09/21/17 20:40 05:36 POC Glucose (mg/dL) 196 H 217 H Assessment & Plan - Assessment and Plan (Free Text) Assessment: 77 yo F, with PMH CKD, DM2, HTN, with hx of poor followup, admitted to TCU for continued IV antibiotics and physical therapy, following admission to telemetry for sepsis (UTI 2/2 to retained stents vs C. diff), metabolic acidosis, electrolyte derangement, and acute on chronic kidney injury. C. diff positive; s /p replacement of formerly retained ureteral stents. No longer septic, kidney function improving, trending towards baseline. Plan: # Diarrhea 2/ to C. Diff - IV hydration - Oral vancomycin Day 12/31 - C. diff PCR B gene identified - Repeat C. diff toxin neg - Stool cx: no salmonella, shigella, or campylobacter Acute on Chronic Kidney Injury , improving - BUN/Cr this am: 53/3.5 - BUN/Cr on presentation: 132/10.3 - BUN/Cr upon D/C in 05/2017: 43/2.9 - Nephrology consult with Dr. Houston - pt refusing HD, continue w/ IV fluids, antibiotics; will follow for further recommendations # UTI - Clinically improved, afebrile, no leukocytosis - Blood cx neg, repeat urine cx neg - ID consulted, Dr. Thomas - cefepime day 6 for /UTI coverage, continue oral vanco day 5 - Urology consult- Dr. Valentine- stents replaced 09/18 # IDDM2 with Hyperglycemia - Levemir 6U QHS - Restart home meds Januvia, Glipizide - Hemoglobin A1C 12.0 - Lispro correction scale, Q6H - Accuchecks ACHS # Hypertension - Pt has history, but normotensive at this time without medication - Monitor # Fecal Occult Blood Positive - Pt would benefit from outpt GI follow-up # Right Adnexal Mass - Seen on CT on 2016, again seen on CT on this admission, stable in size - Monitor as outpt #) Diet - Renal diet #) Prophylactic Measures - Protonix 40mg IV QD - Heparin 5000 units Q12H <Min Woody - Last Filed: 09/25/17 06:44> Results - Vital Signs Recent Vital Signs: Last Vital Signs Temp 99.1 F 09/24/17 20:27 Pulse 78 09/24/17 20:27 Resp 20 09/24/17 20:27 BP 113/69 09/24/17 20:27 Pulse Ox 97 09/24/17 20:27 - Labs Result Diagrams: 09/22/17 08:07 09/22/17 08:07 Labs: Laboratory Results - last 24 hr 09/24/17 09/24/17 09/24/17 07:40 11:34 15:56 POC Glucose (mg/dL) 209 H 204 H Urine Color Maya Urine Clarity Turbid Urine pH 7.0 Ur Specific [place] 1.011 Urine Protein 100 Urine Glucose (UA) 50 Urine Ketones Negative Urine Blood Moderate Urine Nitrate Negative Urine Bilirubin Negative Urine Urobilinogen 0.2-1.0 Ur Leukocyte Esterase Mod Urine RBC (Auto) 124 H Urine WBC Clumps (Auto) Many H Urine Microscopic WBC 4881 H Ur Squamous Epith Cells 5 Urine Bacteria Mod H Urine Yeast (Budding) Occ H 09/24/17 20:47 POC Glucose (mg/dL) 208 H Urine Color Urine Clarity Urine pH Ur Specific [place] Urine Protein Urine Glucose (UA) Urine Ketones Urine Blood Urine Nitrate Urine Bilirubin Urine Urobilinogen Ur Leukocyte Esterase Urine RBC (Auto) Urine WBC Clumps (Auto) Urine Microscopic WBC Ur Squamous Epith Cells Urine Bacteria Urine Yeast (Budding) Attending/Attestation - Attestation I have personally seen and examined this patient.: Yes I have fully participated in the care of the patient.: Yes I have reviewed all pertinent clinical information: Yes
[2017-09-21] MEDS: Insulin Lispro (humaLOG) 100 Units/ml Inj SC SCH ×4 (06:34→21:33)
[2017-09-21 07:40] LABS: BASO % 0.7 % (0.0-2.0); EOS # 0.2 K/uL (0.0-0.7); EOS % 3.6 % (0.0-4.0); HEMOGLOBIN 10.6 g/dL (12.0-16.0); LYMPH # 1.9 K/uL (1.0-4.3); LYMPH % 29.9 % (20.0-40.0); MEAN CELL VOLUME 84.8 fl (81.0-99.0); MEAN CORPUSCULAR HEMOGLOBIN 27.2 pg (27.0-31.0); MEAN CORPUSCULAR HGB CONC 32.1 g/dL (33.0-37.0); MONO # 1.1 K/uL (0.0-0.8); MONO % 17.6 % (0.0-10.0); NEUT % 48.2 % (50.0-75.0); NRBC % 0.1 % (0.0-0.0); RBC 3.88 Mil/uL (3.80-5.20); RED CELL DISTRIBUTION WIDTH 13.1 % (11.5-14.5); WHITE BLOOD COUNT 6.3 K/uL (4.8-10.8)
[2017-09-21 08:06] LABS: CALCIUM 8.5 mg/dL (8.4-10.2)
[2017-09-21] MEDS: Multivitamin With Minerals Tab PO SCH (08:32)
[2017-09-21] MEDS: Insulin Detemir 100 Units/ml Inj SC SCH (21:23)
[2017-09-22] MEDS: Vancomycin 500 mg (Oral/Rectal USE) PO SCH ×4 (04:07→21:41)
[2017-09-22] MEDS: Cefepime 1 GM in Sodium Chloride 0.9% 100 ML IVPB SCH (04:09)
--- NOTE | 2017-09-22 06:50 | CP.PCM.PN ---
Subjective - Date & Time of Evaluation Date of Evaluation: 09/22/17 Time of Evaluation: 07:20 - Subjective Subjective: Pt seen and evaluated at bedside this am; states she wants to go home. Encouraged to participate in PT/OT. States she still has diarrheal bowel movements 1-2 x a day, but significantly improved since admission to hospital last week. Objective - Vital Signs/Intake and Output Vital Signs (last 24 hours): Temp Pulse Resp BP Pulse Ox 98.2 F 72 20 105/58 L 98 09/21/17 21:21 09/21/17 21:32 09/21/17 21:21 09/21/17 21:32 09/21/17 21:21 - Medications Medications: Current Medications Acetaminophen (Tylenol 325mg Tab) 650 mg PO ONCE PRN PRN Reason: Fever >100.4 F Last Admin: 09/21/17 16:36 Dose: 650 mg Aspirin (Ecotrin) 81 mg PO DAILY [facility] Last Admin: 09/21/17 08:32 Dose: 81 mg Atorvastatin Calcium (Lipitor) 40 mg PO QPM [facility] Last Admin: 09/21/17 17:45 Dose: 40 mg Dextrose (Dextrose 50% Inj) 0 ml IV STAT PRN; Protocol PRN Reason: Hypoglycemia Protocol Dextrose (Glutose 15) 0 gm PO ONCE PRN; Protocol PRN Reason: Hypoglycemia Protocol Ferrous Sulfate (Feosol) 325 mg PO DAILY [facility] Last Admin: 09/21/17 08:32 Dose: 325 mg Glucagon (Glucagen Diagnostic Kit) 0 mg IM STAT PRN; Protocol PRN Reason: Hypoglycemia Protocol Heparin Sodium (Porcine) (Heparin) 5,000 units SC Q8 [facility] PRN Reason: Protocol Last Admin: 09/22/17 00:18 Dose: 5,000 units Cefepime HCl 1 gm/ Sodium (Chloride) 100 mls @ 100 mls/hr IVPB DAILY@0500 [facility] PRN Reason: Protocol Last Admin: 09/22/17 04:09 Dose: 100 mls/hr Insulin Detemir (Levemir) 6 units SC HS [facility] Last Admin: 09/21/17 21:23 Dose: 6 units Insulin Human Lispro (Humalog) 0 units SC ACHS [facility] PRN Reason: Protocol Last Admin: 09/21/17 21:33 Dose: Not Given Memantine (Namenda) 5 mg PO DAILY [facility] Last Admin: 09/21/17 08:32 Dose: 5 mg Multivitamins/Minerals (Therapeutic-M Tab) 1 tab PO DAILY [facility] Last Admin: 09/21/17 08:32 Dose: 1 tab Repaglinide (Prandin) 2 mg PO TID [facility] Last Admin: 09/21/17 08:31 Dose: 2 mg Valsartan (Diovan) 80 mg PO DAILY [facility] Last Admin: 09/21/17 08:32 Dose: 80 mg Vancomycin HCl (Vancocin (Oral/Rectal Use)) 500 mg PO Q6 [facility] PRN Reason: Protocol Last Admin: 09/22/17 04:07 Dose: 500 mg - Labs Labs: 09/21/17 07:29 09/21/17 07:29 Assessment and Plan - Assessment and Plan (Free Text) Assessment: 77 yo F, with PMH CKD, DM2, HTN, with hx of poor followup, admitted to TCU for continued IV antibiotics and physical therapy, following admission to telemetry for sepsis (UTI 2/2 to retained stents vs C. diff), metabolic acidosis, electrolyte derangement, and acute on chronic kidney injury. C. diff positive; s /p replacement of formerly retained ureteral stents. No longer septic, kidney function improving, trending towards baseline. Plan: # Diarrhea 2/2 to C. Diff - Oral vancomycin Day 03/02 - C. diff PCR B gene identified - Repeat C. diff toxin neg - Stool cx: no salmonella, shigella, or campylobacter Acute on Chronic Kidney Injury , improving - BUN/Cr this am: 53/3.5 - BUN/Cr on presentation: 132/10.3 - BUN/Cr upon D/C in 05/2017: 43/2.9 - Nephrology consult with Dr. Houston - pt refusing HD, continue w/ IV fluids, antibiotics; will follow for further recommendations # UTI - Clinically improved, afebrile, no leukocytosis - Blood cx neg, repeat urine cx neg - ID consulted, Dr. Thomas - cefepime for /GI - Urology consult- Dr. Valentine- stents replaced 09/18 # IDDM2 with Hyperglycemia - Levemir 6U QHS - Restart home meds Januvia - Hemoglobin A1C 12.0 - Lispro correction scale, Q6H - Accuchecks ACHS # Hypertension - Pt has history, but normotensive at this time without medication - Monitor # Fecal Occult Blood Positive - Pt would benefit from outpt GI follow-up # Right Adnexal Mass - Seen on CT on 2016, again seen on CT on this admission, stable in size - Monitor as outpt #) Diet - Renal diet #) Prophylactic Measures - Protonix 40mg IV QD - Heparin 5000 units Q12H
[2017-09-22] MEDS: Insulin Lispro (humaLOG) 100 Units/ml Inj SC SCH ×4 (06:52→21:41)
[2017-09-22 08:14] LABS: HEMOGLOBIN 10.7 g/dL (12.0-16.0); MEAN CELL VOLUME 84.6 fl (81.0-99.0); MEAN CORPUSCULAR HEMOGLOBIN 27.6 pg (27.0-31.0); MEAN CORPUSCULAR HGB CONC 32.6 g/dL (33.0-37.0); RBC 3.87 Mil/uL (3.80-5.20); WHITE BLOOD COUNT 7.7 K/uL (4.8-10.8)
[2017-09-22 08:22] LABS: CALCIUM 8.7 mg/dL (8.4-10.2)
[2017-09-22] MEDS: Multivitamin With Minerals Tab PO SCH (09:19)
--- NOTE | 2017-09-22 13:15 | CP.PCM.CON ---
History of Present Illness - History of Present Illness History of Present Illness: ID Note- HPI- 77 y/o female with HTN, uncontrolled DM II, acute on chronic renal disease, retained b/l ureteral stents for hydronephrosis who was admitted to med-surg floor with fever, leukocytosis and UTI secondary to retained b/l ureteral stents and also had diarrhea and was found to have c.diff. had b/l stents replaced by urologist last week and has been on IV cefepime empirically for coverage and on oral vancomycin for c.diff treatment. pt. clinically much improved with resolved leukocytosis and also her diarrhe ais almost resolved . she is now transferred to TCU for PT. current;y pt. denies any complaints. states her diarrhea is gone, denies any abd. pain, denies any dysurea. Review of Systems - Review of Systems Review of Systems: ROS_ denies any fever or glaser, denies any cough or sob,d enies any chest pain, denies any nausea or vomiting, denies any abd. pain, diarrhea has resolved, denies any dysurea Past Patient History - Infectious Disease Hx of Infectious Diseases: None - Past Medical History & Family History Past Medical History?: Yes - Past Social History Smoking Status: Never Smoked Alcohol: None Drugs: Denies Home Situation {Lives}: With Family - CARDIAC Hx Cardiac Disorders: Yes Hx Hypercholesterolemia: Yes Hx Hypertension: Yes - PULMONARY Hx Respiratory Disorders: Yes Hx Chronic Obstructive Pulmonary Disease (COPD): Yes Hx Pneumonia: Yes - NEUROLOGICAL Hx Neurological Disorder: No - HEENT Hx HEENT Problems: No - RENAL Hx Chronic Kidney Disease: Yes Hx Renal Failure: Yes - ENDOCRINE/METABOLIC Hx Endocrine Disorders: Yes Hx Diabetes Mellitus Type 2: Yes - HEMATOLOGICAL/ONCOLOGICAL Hx Blood Disorders: No - INTEGUMENTARY Hx Dermatological Problems: No - MUSCULOSKELETAL/RHEUMATOLOGICAL Hx Arthritis: Yes Hx Falls: No - GASTROINTESTINAL Hx Gastrointestinal Disorders: No - GENITOURINARY/GYNECOLOGICAL Hx Genitourinary Disorders: Yes Hx Incontinence: Yes - PSYCHIATRIC Hx Psychophysiologic Disorder: Yes Hx Anxiety: Yes Hx Depression: Yes Hx Substance Use: No - SURGICAL HISTORY Hx Hysterectomy: Yes Hx Open Reduction Internal Fixation: Yes (left wrist) Hx Tonsillectomy: Yes Other/Comment: bilateral ureteral stent placement may 2017, replacement september 2017 - ANESTHESIA Hx Anesthesia: Yes Hx Anesthesia Reactions: No Hx Malignant Hyperthermia: No Meds Allergies/Adverse Reactions: Allergies Allergy/AdvReac Type Severity Reaction Status Date / Time No Known Allergies Allergy Verified 05/08/17 21:15 - Medications Medications: Current Medications Acetaminophen (Tylenol 325mg Tab) 650 mg PO ONCE PRN PRN Reason: Pain, Mild (1-3) Last Admin: 09/22/17 11:07 Dose: 650 mg Aspirin (Ecotrin) 81 mg PO DAILY [facility] Last Admin: 09/22/17 09:19 Dose: 81 mg Atorvastatin Calcium (Lipitor) 40 mg PO QPM [facility] Last Admin: 09/21/17 17:45 Dose: 40 mg Dextrose (Dextrose 50% Inj) 0 ml IV STAT PRN; Protocol PRN Reason: Hypoglycemia Protocol Dextrose (Glutose 15) 0 gm PO ONCE PRN; Protocol PRN Reason: Hypoglycemia Protocol Ferrous Sulfate (Feosol) 325 mg PO DAILY [facility] Last Admin: 09/22/17 09:19 Dose: 325 mg Glucagon (Glucagen Diagnostic Kit) 0 mg IM STAT PRN; Protocol PRN Reason: Hypoglycemia Protocol Heparin Sodium (Porcine) (Heparin) 5,000 units SC Q8 [facility] PRN Reason: Protocol Last Admin: 09/22/17 09:19 Dose: 5,000 units Cefepime HCl 1 gm/ Sodium (Chloride) 100 mls @ 100 mls/hr IVPB DAILY@0500 [facility] PRN Reason: Protocol Last Admin: 09/22/17 04:09 Dose: 100 mls/hr Insulin Detemir (Levemir) 6 units SC HS [facility] Last Admin: 09/21/17 21:23 Dose: 6 units Insulin Human Lispro (Humalog) 0 units SC ACHS [facility] PRN Reason: Protocol Last Admin: 09/22/17 11:53 Dose: 4 units Memantine (Namenda) 5 mg PO DAILY [facility] Last Admin: 09/22/17 09:19 Dose: 5 mg Multivitamins/Minerals (Therapeutic-M Tab) 1 tab PO DAILY [facility] Last Admin: 09/22/17 09:19 Dose: 1 tab Repaglinide (Prandin) 2 mg PO TID [facility] Last Admin: 09/21/17 08:31 Dose: 2 mg Valsartan (Diovan) 80 mg PO DAILY [facility] Last Admin: 09/21/17 08:32 Dose: 80 mg Vancomycin HCl (Vancocin (Oral/Rectal Use)) 500 mg PO Q6 [facility] PRN Reason: Protocol Last Admin: 09/22/17 09:20 Dose: 500 mg Physical Exam - Constitutional Appears: No Acute Distress - Head Exam Head Exam: ATRAUMATIC - ENT Exam ENT Exam: Normal Oropharynx - Neck Exam Neck exam: Positive for: Full Rom - Respiratory Exam Respiratory Exam: Clear to Auscultation Bilateral, NORMAL BREATHING PATTERN - Cardiovascular Exam Cardiovascular Exam: RRR, +S1, +S2 - GI/Abdominal Exam GI & Abdominal Exam: Normal Bowel Sounds, Soft Additional comments: NT, ND - Extremities Exam Additional comments: trace b/l LE edema - Neurological Exam Neurological exam: Alert, Oriented x3 Results - Vital Signs Recent Vital Signs: Last Vital Signs Temp 99.9 F H 09/22/17 09:03 Pulse 81 09/22/17 09:03 Resp 20 09/22/17 09:03 BP 92/51 L 09/22/17 09:03 Pulse Ox 98 09/22/17 09:03 - Labs Result Diagrams: 09/22/17 08:07 09/22/17 08:07 Labs: Laboratory Results - last 24 hr 09/21/17 09/21/17 09/22/17 16:11 20:49 05:54 WBC RBC Hgb Hct MCV MCH MCHC RDW Plt Count Sodium Potassium Chloride Carbon Dioxide Anion Gap BUN Creatinine Est GFR ( Amer) Est GFR (Non-Af Amer) POC Glucose (mg/dL) 166 H 165 H 199 H Random Glucose Calcium 09/22/17 09/22/17 09/22/17 08:07 08:07 10:55 WBC 7.7 RBC 3.87 Hgb 10.7 L Hct 32.8 L MCV 84.6 MCH 27.6 MCHC 32.6 L RDW 13.0 Plt Count 344 Sodium 135 Potassium 4.6 Chloride 97 L Carbon Dioxide 23 Anion Gap 20 BUN 53 H Creatinine 3.6 H Est GFR ( Amer) 15 Est GFR (Non-Af Amer) 12 POC Glucose (mg/dL) 258 H Random Glucose 184 H Calcium 8.7 Microbiology 09/19/17 19:06 Urine,Catheterized Urine Culture - Final No Growth (<1,000 CFU/ML) 09/18/17 20:31 Urine,Clean Catch Urine Culture - Final No Growth (<1,000 CFU/ML) 09/15/17 18:18 Blood Blood Culture - Final 09/15/17 18:18 Blood Gram Stain - Final NO GROWTH AFTER 5 DAYS TEST NOT PERFORMED 09/15/17 18:08 Blood Blood Culture - Final NO GROWTH AFTER 5 DAYS 09/14/17 22:33 Stool Stool Culture - Final NO SALMONELLA, SHIGELLA OR CAMPYLOBACTER ISOLATED. 09/14/17 17:13 Blood Blood Culture - Final 09/14/17 17:13 Blood Gram Stain - Final NO GROWTH AFTER 5 DAYS TEST NOT PERFORMED 09/14/17 17:13 Blood Blood Culture - Final 09/14/17 17:13 Blood Gram Stain - Final NO GROWTH AFTER 5 DAYS TEST NOT PERFORMED Assessment & Plan (1) Clostridium difficile diarrhea Status: Acute (2) Acute on chronic renal failure Status: Acute (3) UTI (urinary tract infection) Status: Acute - Assessment and Plan (Free Text) Assessment: A/P- 77 y/o female with HTN, uncontrolled DM II, acute on chronic renal disease, retained b/l uretreal stents for hydronephrosis. clinically improved. afebrile past 7 days. Leukocytosis has resolved. + UA on admission acute on chronic renal insufficiency, better now blood cx- neg x 2 initial admission urine cx- multiple organisms hence most likely contaminant repeat urine cx- negative ( post ureteral stent replacment) stool c.diff- pos x 2 PLan- advise to continue with the oral vancomycin for the c.diff associated diarrhea. day #8 continue oral vanco for another 6 days , can be given at home. 14 days of oral vanco for c.diff diarrhea. has completed 8 days of IV cefepime for UTI secondary to retained ureteral stents. advise to d/c IV abx. since pt. still has b/l ureteral stent sin place would advise to keep on empiric oral abx at home for 5-7 days, can give oral bactrim or oral nitrofurantoin. check repeat stool c.diff as outpatient by her PCP. all above d/w patient and her nurse at length. thank you for allowing me to take part in the care of this patient.
[2017-09-22] MEDS: Sodium Chloride 0.9% 500 ML IV SCH ×4 (14:30→17:24)
[2017-09-22] MEDS: Insulin Detemir 100 Units/ml Inj SC SCH (21:42)
[2017-09-23] MEDS: Vancomycin 500 mg (Oral/Rectal USE) PO SCH ×4 (04:31→21:14)
[2017-09-23] MEDS: Cefepime 1 GM in Sodium Chloride 0.9% 100 ML IVPB SCH (04:31)
[2017-09-23] MEDS: Insulin Lispro (humaLOG) 100 Units/ml Inj SC SCH ×4 (06:43→21:11)
[2017-09-23] MEDS: Multivitamin With Minerals Tab PO SCH (09:15)
--- NOTE | 2017-09-23 11:46 | RAD ---
HISTORY: fevers COMPARISON: 09/14/2017 FINDINGS: LUNGS: A minimal subtle new area of patchy infiltrate in the right upper lobe is not excluded. Mild interstitial change and/or scarring is noted. PLEURA: No significant pleural effusion identified, no pneumothorax apparent. CARDIOVASCULAR: Heart is stable in size. Aorta is unchanged. OSSEOUS STRUCTURES: No significant abnormalities. VISUALIZED UPPER ABDOMEN: Normal. OTHER FINDINGS: None. IMPRESSION: Possible minimal patchy right upper lobe infiltrate. No CHF.
[2017-09-23] MEDS ORDERED: POLYETHYLENE GLYCOL 3350 17 GM/Dose PACKET PO ONE (11:56)
--- NOTE | 2017-09-23 17:20 | CP.PCM.PN ---
Subjective - Date & Time of Evaluation Date of Evaluation: 09/23/17 Time of Evaluation: 08:00 - Subjective Subjective: Seen and examined this am. Found sitting in in bed comfortable. Has no complaints. Denies cough, cp, sob, abdominal pain, dysuria, fever, chills. Tolerating diet. Objective - Vital Signs/Intake and Output Vital Signs (last 24 hours): Temp Pulse Resp BP Pulse Ox 99.1 F 82 20 113/63 99 09/23/17 15:45 09/23/17 15:45 09/23/17 15:45 09/23/17 15:45 09/23/17 15:45 - Medications Medications: Current Medications Acetaminophen (Tylenol 325mg Tab) 650 mg PO Q4 PRN PRN Reason: Pain, Mild (1-3) Last Admin: 09/23/17 00:15 Dose: 650 mg Aspirin (Ecotrin) 81 mg PO DAILY [facility] Last Admin: 09/23/17 09:15 Dose: 81 mg Atorvastatin Calcium (Lipitor) 40 mg PO QPM [facility] Last Admin: 09/22/17 17:14 Dose: 40 mg Dextrose (Dextrose 50% Inj) 0 ml IV STAT PRN; Protocol PRN Reason: Hypoglycemia Protocol Dextrose (Glutose 15) 0 gm PO ONCE PRN; Protocol PRN Reason: Hypoglycemia Protocol Ferrous Sulfate (Feosol) 325 mg PO DAILY [facility] Last Admin: 09/23/17 09:15 Dose: 325 mg Glucagon (Glucagen Diagnostic Kit) 0 mg IM STAT PRN; Protocol PRN Reason: Hypoglycemia Protocol Heparin Sodium (Porcine) (Heparin) 5,000 units SC Q8 [facility] PRN Reason: Protocol Last Admin: 09/23/17 09:15 Dose: 5,000 units Insulin Detemir (Levemir) 6 units SC HS [facility] Last Admin: 09/22/17 21:42 Dose: 6 units Insulin Human Lispro (Humalog) 0 units SC ACHS [facility] PRN Reason: Protocol Last Admin: 09/23/17 12:16 Dose: 4 units Memantine (Namenda) 5 mg PO DAILY [facility] Last Admin: 09/23/17 09:15 Dose: 5 mg Multivitamins/Minerals (Therapeutic-M Tab) 1 tab PO DAILY [facility] Last Admin: 09/23/17 09:15 Dose: 1 tab Nitrofurantoin Macrocrystals (Macrobid) 100 mg PO Q12 [facility] PRN Reason: Protocol Repaglinide (Prandin) 2 mg PO TID [facility] Last Admin: 09/21/17 08:31 Dose: 2 mg Sitagliptin Phosphate (Januvia) 25 mg PO DAILY [facility] Last Admin: 09/23/17 09:15 Dose: 25 mg Valsartan (Diovan) 80 mg PO DAILY [facility] Last Admin: 09/21/17 08:32 Dose: 80 mg Vancomycin HCl (Vancocin (Oral/Rectal Use)) 500 mg PO Q6 [facility] PRN Reason: Protocol Last Admin: 09/23/17 09:15 Dose: 500 mg - Labs Labs: 09/22/17 08:07 09/22/17 08:07 - Constitutional Appears: Well, Non-toxic, No Acute Distress - Head Exam Head Exam: NORMAL INSPECTION - ENT Exam ENT Exam: Mucous Membranes Moist - Respiratory Exam Respiratory Exam: Clear to Ausculation Bilateral, Rales. absent: Wheezes, Stridor - Cardiovascular Exam Cardiovascular Exam: REGULAR RHYTHM, +S1, +S2, Murmur - GI/Abdominal Exam GI & Abdominal Exam: Soft, Normal Bowel Sounds. absent: Distended, Tenderness - Extremities Exam Extremities Exam: Normal Inspection. absent: Pedal Edema - Neurological Exam Neurological Exam: Alert, Awake, Oriented x3 - Psychiatric Exam Psychiatric exam: Normal Mood - Skin Skin Exam: Normal Color Assessment and Plan - Assessment and Plan (Free Text) Assessment: Assessment: 77 yo F, with PMH CKD, DM2, HTN, with hx of poor followup, admitted to TCU for continued IV antibiotics and physical therapy, following admission to telemetry for sepsis (UTI 2/2 to retained stents vs C. diff), metabolic acidosis, electrolyte derangement, and acute on chronic kidney injury. C. diff positive; s /p replacement of formerly retained ureteral stents. No longer septic, kidney function improving, trending towards baseline. Pt has been having low grade fevers overnight. Cxray and procalcitonin ordered. As per RN, Neprology, Urology, and ID have cleared pt patel D/C ID consult- Given pt stents, will need oral abx empiric for 5-7 days Cepefime d/ c Plan: # Diarrhea 2/2 to C. Diff - Oral vancomycin Day 8 - C. diff PCR B gene identified - Repeat C. diff toxin neg - Stool cx: no salmonella, shigella, or campylobacter Acute on Chronic Kidney Injury , improving - BUN/Cr this am: 53/3.5 - BUN/Cr on presentation: 132/10.3 - BUN/Cr upon D/C in 05/2017: 43/2.9 - Nephrology consult with Dr. Houston - pt refusing HD, continue w/ IV fluids, antibiotics; will follow for further recommendations # UTI - Clinically improved, afebrile, no leukocytosis - Blood cx neg, repeat urine cx neg - ID consulted, Dr. Thomas - cefepime for /GI - Urology consult- Dr. Valentine- stents replaced 09/18 # IDDM2 with Hyperglycemia - Levemir 6U QHS - Restart home meds Januvia - Hemoglobin A1C 12.0 - Lispro correction scale, Q6H - Accuchecks ACHS # Hypertension - Pt has history, but normotensive at this time without medication - Monitor # Fecal Occult Blood Positive - Pt would benefit from outpt GI follow-up # Right Adnexal Mass - Seen on CT on 2016, again seen on CT on this admission, stable in size - Monitor as outpt #) Diet - Renal diet #) Prophylactic Measures - Protonix 40mg IV QD - Heparin 5000 units Q12H
--- NOTE | 2017-09-23 19:15 | CP.PCM.PN ---
Subjective - Date & Time of Evaluation Date of Evaluation: 09/23/17 Time of Evaluation: 16:00 - Subjective Subjective: SEEN ON RENAL F/U FEELING IMPROVED RENAL FUNCTION STILL ADVANCED CKD BUT STABLE PT INSIST ON NOT HAVING DIALYSIS Objective - Vital Signs/Intake and Output Vital Signs (last 24 hours): Temp Pulse Resp BP Pulse Ox 99.1 F 82 20 113/63 99 09/23/17 15:45 09/23/17 15:45 09/23/17 15:45 09/23/17 15:45 09/23/17 15:45 - Medications Medications: Current Medications Acetaminophen (Tylenol 325mg Tab) 650 mg PO Q4 PRN PRN Reason: Pain, Mild (1-3) Last Admin: 09/23/17 00:15 Dose: 650 mg Aspirin (Ecotrin) 81 mg PO DAILY [facility] Last Admin: 09/23/17 09:15 Dose: 81 mg Atorvastatin Calcium (Lipitor) 40 mg PO QPM [facility] Last Admin: 09/23/17 17:37 Dose: 40 mg Dextrose (Dextrose 50% Inj) 0 ml IV STAT PRN; Protocol PRN Reason: Hypoglycemia Protocol Dextrose (Glutose 15) 0 gm PO ONCE PRN; Protocol PRN Reason: Hypoglycemia Protocol Ferrous Sulfate (Feosol) 325 mg PO DAILY [facility] Last Admin: 09/23/17 09:15 Dose: 325 mg Glucagon (Glucagen Diagnostic Kit) 0 mg IM STAT PRN; Protocol PRN Reason: Hypoglycemia Protocol Heparin Sodium (Porcine) (Heparin) 5,000 units SC Q8 [facility] PRN Reason: Protocol Last Admin: 09/23/17 17:38 Dose: 5,000 units Insulin Detemir (Levemir) 6 units SC HS [facility] Last Admin: 09/22/17 21:42 Dose: 6 units Insulin Human Lispro (Humalog) 0 units SC ACHS [facility] PRN Reason: Protocol Last Admin: 09/23/17 17:38 Dose: 2 units Memantine (Namenda) 5 mg PO DAILY [facility] Last Admin: 09/23/17 09:15 Dose: 5 mg Multivitamins/Minerals (Therapeutic-M Tab) 1 tab PO DAILY [facility] Last Admin: 09/23/17 09:15 Dose: 1 tab Repaglinide (Prandin) 2 mg PO TID [facility] Last Admin: 09/21/17 08:31 Dose: 2 mg Sitagliptin Phosphate (Januvia) 25 mg PO DAILY [facility] Last Admin: 09/23/17 09:15 Dose: 25 mg Valsartan (Diovan) 80 mg PO DAILY [facility] Last Admin: 09/21/17 08:32 Dose: 80 mg Vancomycin HCl (Vancocin (Oral/Rectal Use)) 500 mg PO Q6 [facility] PRN Reason: Protocol Last Admin: 09/23/17 17:37 Dose: 500 mg - Labs Labs: 09/22/17 08:07 09/22/17 08:07 Assessment and Plan - Assessment and Plan (Free Text) Assessment: A ON CKD .. RENAL FUNCTION STABLE .. eGFR 15 ML /M ANEMIA OF CKD .. ON PO IRON .. START S/Q EPO UTI ON PO FURANTOIN .. D/C FURANTOIN CONTRAINDICATED IN RENAL FAILURE .. REPEAT U/A @C/S C DIFF COLITIS ON PO VANCO P : D/C NUTROFURANTOIN .. REPEAT U/A AND C/S .. START PROCRIT FOR ANEMIA OF CKD .. C/O PO IRON
[2017-09-23] MEDS ORDERED: Epoetin Alfa 4000 UNIT/ML Inj IV ONE (19:17)
[2017-09-23] MEDS ORDERED: Epoetin Alfa 4000 UNIT/ML Inj SC ONE (20:03)
[2017-09-23] MEDS: Insulin Detemir 100 Units/ml Inj SC SCH (21:11)
[2017-09-24] MEDS: Vancomycin 500 mg (Oral/Rectal USE) PO SCH ×4 (03:08→21:07)
[2017-09-24] MEDS: Insulin Lispro (humaLOG) 100 Units/ml Inj SC SCH ×4 (06:56→21:08)
[2017-09-24 08:13] LABS: URINE BACTERIA MOD (<OCC); URINE BILIRUBIN NEGATIVE (NEGATIVE); URINE BLOOD MODERATE (NEGATIVE); URINE CLARITY TURBID (Clear); URINE COLOR AMBER (YELLOW); URINE GLUCOSE (UA) 50 mg/dL (Normal); URINE LEUKOCYTE ESTERASE MOD Leu/uL (Negative); URINE PROTEIN 100 mg/dL (NEGATIVE); URINE UROBILINOGEN 0.2-1.0 mg/dL (0.2-1.0); WBC CLUMPS MANY /hpf
[2017-09-24 08:19] LABS: SQUAMOUS EPITHIAL 5 /hpf (0-5)
[2017-09-24] MEDS: Multivitamin With Minerals Tab PO SCH (08:37)
--- NOTE | 2017-09-24 09:58 | CP.PCM.PN ---
Subjective - Date & Time of Evaluation Date of Evaluation: 09/24/17 Time of Evaluation: 09:40 - Subjective Subjective: Pt seen/evaluated this am; sitting comfortably in bed. Denies diarrhea, dysuria , chest pain, shortness of breath. Had low grade temp yest and the day before; UA collected yesterday and sent for culture. Objective - Vital Signs/Intake and Output Vital Signs (last 24 hours): Temp Pulse Resp BP Pulse Ox 98.1 F 74 20 97/62 L 99 09/24/17 08:05 09/24/17 08:05 09/24/17 08:05 09/24/17 08:05 09/24/17 08:05 - Medications Medications: Current Medications Acetaminophen (Tylenol 325mg Tab) 650 mg PO Q4 PRN PRN Reason: Pain, Mild (1-3) Last Admin: 09/24/17 00:24 Dose: 650 mg Aspirin (Ecotrin) 81 mg PO DAILY [facility] Last Admin: 09/24/17 08:36 Dose: 81 mg Atorvastatin Calcium (Lipitor) 20 mg PO DAILY [facility] Last Admin: 09/24/17 08:36 Dose: 20 mg Dextrose (Dextrose 50% Inj) 0 ml IV STAT PRN; Protocol PRN Reason: Hypoglycemia Protocol Dextrose (Glutose 15) 0 gm PO ONCE PRN; Protocol PRN Reason: Hypoglycemia Protocol Ferrous Sulfate (Feosol) 325 mg PO DAILY [facility] Last Admin: 09/24/17 08:36 Dose: 325 mg Glucagon (Glucagen Diagnostic Kit) 0 mg IM STAT PRN; Protocol PRN Reason: Hypoglycemia Protocol Heparin Sodium (Porcine) (Heparin) 5,000 units SC Q8 [facility] PRN Reason: Protocol Last Admin: 09/24/17 08:36 Dose: 5,000 units Insulin Detemir (Levemir) 6 units SC HS [facility] Last Admin: 09/23/17 21:11 Dose: 6 units Insulin Human Lispro (Humalog) 0 units SC ACHS [facility] PRN Reason: Protocol Last Admin: 09/24/17 06:56 Dose: 2 units Memantine (Namenda) 5 mg PO DAILY [facility] Last Admin: 09/24/17 08:37 Dose: 5 mg Multivitamins/Minerals (Therapeutic-M Tab) 1 tab PO DAILY [facility] Last Admin: 09/24/17 08:37 Dose: 1 tab Repaglinide (Prandin) 2 mg PO TID [facility] Last Admin: 09/21/17 08:31 Dose: 2 mg Sitagliptin Phosphate (Januvia) 25 mg PO DAILY [facility] Last Admin: 09/24/17 08:36 Dose: 25 mg Valsartan (Diovan) 80 mg PO DAILY [facility] Last Admin: 09/21/17 08:32 Dose: 80 mg Vancomycin HCl (Vancocin (Oral/Rectal Use)) 500 mg PO Q6 [facility] PRN Reason: Protocol Last Admin: 09/24/17 03:08 Dose: 500 mg - Labs Labs: 09/22/17 08:07 09/22/17 08:07 - Constitutional Appears: Chronically Ill - Eye Exam Eye Exam: Normal appearance - ENT Exam ENT Exam: Mucous Membranes Moist - Respiratory Exam Respiratory Exam: Clear to Ausculation Bilateral, NORMAL BREATHING PATTERN. absent: Respiratory Distress - Cardiovascular Exam Cardiovascular Exam: REGULAR RHYTHM, +S1, +S2 - GI/Abdominal Exam GI & Abdominal Exam: Soft, Normal Bowel Sounds - Extremities Exam Extremities Exam: absent: Calf Tenderness - Back Exam Back Exam: NORMAL INSPECTION Additional comments: multiple seborrheic keratoses - Neurological Exam Neurological Exam: Alert, Awake - Skin Skin Exam: Normal Color, Warm Assessment and Plan - Assessment and Plan (Free Text) Assessment: 77 yo F, with PMH CKD, DM2, HTN, with hx of poor followup, admitted to TCU for continued IV antibiotics and physical therapy, following admission to telemetry for sepsis (UTI 2/2 to retained stents vs C. diff), metabolic acidosis, electrolyte derangement, and acute on chronic kidney injury. C. diff positive; s /p replacement of formerly retained ureteral stents. No longer septic, kidney function improving, trending towards baseline. Spiked low grade fever overnight; new UA shows UTI. Plan: # Diarrhea 2/2 to C. Diff - Improving - Oral vancomycin Day 03/23 ; previously was recording need for total of 24 days , but pt needs total of 14 days. - C. diff PCR B gene identified - Repeat C. diff toxin neg - Stool cx: no salmonella, shigella, or campylobacter Acute on Chronic Kidney Injury , improving - Latest BUN/Cr: 53/3.5 - BUN/Cr on presentation: 132/10.3 - Last known BUN/CR 05/2017: 43/2.9 - Nephrology consult with Dr. Hajal - pt refusing HD, continue w/ IV fluids, antibiotics; new urinalysis # UTI On presentation, pt had UTI likely secondary to retained stents. Urology consult - Dr. Valentine- stents replaced 09/18. ID consulted, Dr. Thomas - cefepime for /GI infection; cefepime course completed. Urine culture after initiation of cefepime and stent replacement showed no growth. - Pt has had low grade fevers (100.1); repeat UA was done after completion of cefepime and showed moderate leuk esterase, yeast, and many microscopic wbc - Cipro renal dose started today, 250 mg PO Q 18 hrs; first dose today 5 pm - Urine culture sent, pending # IDDM2 with Hyperglycemia - Levemir 8U QHS - Restart home meds Januvia - Hemoglobin A1C 12.0 - Lispro correction scale, Q6H - Accuchecks ACHS # Hypertension - Pt has history, but normotensive at this time without medication - Monitor # Fecal Occult Blood Positive - Pt would benefit from outpt GI follow-up # Right Adnexal Mass - Seen on CT on 2016, again seen on CT on this admission, stable in size - Monitor as outpt #) Diet - Renal diet #) Prophylactic Measures - Heparin 5000 units Q8
[2017-09-24] MEDS: Insulin Detemir 100 Units/ml Inj SC SCH (21:07)
[2017-09-25] MEDS: Vancomycin 500 mg (Oral/Rectal USE) PO SCH ×4 (04:08→21:26)
[2017-09-25] MEDS: Insulin Lispro (humaLOG) 100 Units/ml Inj SC SCH ×4 (06:30→22:31)
[2017-09-25] MEDS: Multivitamin With Minerals Tab PO SCH (08:35)
--- NOTE | 2017-09-25 18:32 | CP.PCM.PN ---
Subjective - Date & Time of Evaluation Date of Evaluation: 09/25/17 Time of Evaluation: 07:00 - Subjective Subjective: Pt seen and examined at the bedside in the am. States she wants to go home. Tearful. Refuses to cooperate with PT. Lengthy discussion was held with pt regarding the need for her cooperation with physical therapy for a safe discharge to occur. Pt verbalized understanding, although visibly upset. Tolerating diet. No new complaints. Objective - Vital Signs/Intake and Output Vital Signs (last 24 hours): Temp Pulse Resp BP Pulse Ox 98.2 F 86 20 112/67 100 09/25/17 07:49 09/25/17 07:49 09/25/17 07:49 09/25/17 07:49 09/25/17 07:49 - Medications Medications: Current Medications Acetaminophen (Tylenol 325mg Tab) 650 mg PO Q4 PRN PRN Reason: Pain, Mild (1-3) Last Admin: 09/24/17 00:24 Dose: 650 mg Aspirin (Ecotrin) 81 mg PO DAILY [facility] Last Admin: 09/25/17 08:35 Dose: 81 mg Atorvastatin Calcium (Lipitor) 20 mg PO DAILY [facility] Last Admin: 09/25/17 08:35 Dose: 20 mg Dextrose (Dextrose 50% Inj) 0 ml IV STAT PRN; Protocol PRN Reason: Hypoglycemia Protocol Dextrose (Glutose 15) 0 gm PO ONCE PRN; Protocol PRN Reason: Hypoglycemia Protocol Ferrous Sulfate (Feosol) 325 mg PO DAILY [facility] Last Admin: 09/25/17 08:35 Dose: 325 mg Glucagon (Glucagen Diagnostic Kit) 0 mg IM STAT PRN; Protocol PRN Reason: Hypoglycemia Protocol Heparin Sodium (Porcine) (Heparin) 5,000 units SC Q8 [facility] PRN Reason: Protocol Last Admin: 09/25/17 17:02 Dose: 5,000 units Insulin Detemir (Levemir) 8 units SC HS [facility] Last Admin: 09/24/17 21:07 Dose: 8 units Insulin Human Lispro (Humalog) 0 units SC ACHS [facility] PRN Reason: Protocol Last Admin: 09/25/17 17:05 Dose: 2 units Memantine (Namenda) 5 mg PO DAILY [facility] Last Admin: 09/25/17 08:35 Dose: 5 mg Multivitamins/Minerals (Therapeutic-M Tab) 1 tab PO DAILY [facility] Last Admin: 09/25/17 08:35 Dose: 1 tab Repaglinide (Prandin) 2 mg PO TID [facility] Last Admin: 09/21/17 08:31 Dose: 2 mg Sitagliptin Phosphate (Januvia) 25 mg PO DAILY [facility] Last Admin: 09/25/17 08:35 Dose: 25 mg Valsartan (Diovan) 80 mg PO DAILY [facility] Last Admin: 09/21/17 08:32 Dose: 80 mg Vancomycin HCl (Vancocin (Oral/Rectal Use)) 500 mg PO Q6 [facility] PRN Reason: Protocol Last Admin: 09/25/17 17:01 Dose: 500 mg - Labs Labs: 09/22/17 08:07 09/22/17 08:07 - Constitutional Appears: Well, Non-toxic, No Acute Distress (tearful and upset this morning ) - Head Exam Head Exam: NORMAL INSPECTION - ENT Exam ENT Exam: Mucous Membranes Moist - Respiratory Exam Respiratory Exam: Clear to Ausculation Bilateral. absent: Rales, Wheezes - Cardiovascular Exam Cardiovascular Exam: REGULAR RHYTHM, +S1, +S2. absent: Murmur - GI/Abdominal Exam GI & Abdominal Exam: Soft. absent: Distended, Tenderness - Extremities Exam Extremities Exam: absent: Pedal Edema - Neurological Exam Neurological Exam: Alert, Awake, Oriented x3 - Psychiatric Exam Psychiatric exam: Anxious, Depressed - Skin Skin Exam: Normal Color Assessment and Plan - Assessment and Plan (Free Text) Assessment: 77 yo F, with PMH CKD, DM2, HTN, with hx of poor followup, admitted to TCU for continued IV antibiotics and physical therapy, following admission to telemetry for sepsis (UTI 2/2 to retained stents vs C. diff), metabolic acidosis, electrolyte derangement, and acute on chronic kidney injury. C. diff positive; s /p replacement of formerly retained ureteral stents. No longer septic, kidney function improving, trending towards baseline. Spiked low grade fever overnight; new UA + LES. Urine CX no growth 24 hours. Pt refused participation with PT today. Plan: # Diarrhea 2/2 to C. Diff - Improving - Oral vancomycin Day 04/22 ; previously was recording need for total of 24 days , but pt needs total of 14 days. - C. diff PCR B gene identified - Repeat C. diff toxin neg - Stool cx: no salmonella, shigella, or campylobacter #Acute on Chronic Kidney Injury , improving - Latest BUN/Cr: 53/3.5 - BUN/Cr on presentation: 132/10.3 - Last known BUN/CR 05/2017: 43/2.9 - Nephrology consult with Dr. Houston - pt refusing HD, continue w/ IV fluids, antibiotics; new urinalysis # UTI On presentation, pt had UTI likely secondary to retained stents. Urology consult - Dr. Valentine- stents replaced 09/18. ID consulted, Dr. Thomas - cefepime for /GI infection; cefepime course completed. Urine culture after initiation of cefepime and stent replacement showed no growth. - Pt has had low grade fevers (100.1); repeat UA was done after completion of cefepime and showed moderate leuk esterase, yeast, and many microscopic wbc - C/W Cipro renal dose 250 mg PO Q 18 hrs; first dose today 5 pm - Urine culture sent, pending # IDDM2 with Hyperglycemia - Levemir 8U QHS - Restart home meds Januvia - Hemoglobin A1C 12.0 - Lispro correction scale, Q6H - Accuchecks ACHS # Hypertension - Pt has history, but normotensive at this time without medication - Monitor # Fecal Occult Blood Positive - Pt would benefit from outpt GI follow-up # Right Adnexal Mass - Seen on CT on 2016, again seen on CT on this admission, stable in size - Monitor as outpt #) Diet - Renal diet #) Prophylactic Measures - Heparin 5000 units Q8
--- NOTE | 2017-09-25 18:44 | CP.PCM.PN ---
Subjective - Date & Time of Evaluation Date of Evaluation: 09/25/17 Time of Evaluation: 15:00 - Subjective Subjective: SEEN ON RENAL F/U FEELS IMPROVED WANTS TO GO HOME ALL PREVIOUS EMR REVIEWED Objective - Vital Signs/Intake and Output Vital Signs (last 24 hours): Temp Pulse Resp BP Pulse Ox 98.2 F 86 20 112/67 100 09/25/17 07:49 09/25/17 07:49 09/25/17 07:49 09/25/17 07:49 09/25/17 07:49 - Medications Medications: Current Medications Acetaminophen (Tylenol 325mg Tab) 650 mg PO Q4 PRN PRN Reason: Pain, Mild (1-3) Last Admin: 09/24/17 00:24 Dose: 650 mg Aspirin (Ecotrin) 81 mg PO DAILY [facility] Last Admin: 09/25/17 08:35 Dose: 81 mg Atorvastatin Calcium (Lipitor) 20 mg PO DAILY [facility] Last Admin: 09/25/17 08:35 Dose: 20 mg Dextrose (Dextrose 50% Inj) 0 ml IV STAT PRN; Protocol PRN Reason: Hypoglycemia Protocol Dextrose (Glutose 15) 0 gm PO ONCE PRN; Protocol PRN Reason: Hypoglycemia Protocol Ferrous Sulfate (Feosol) 325 mg PO DAILY [facility] Last Admin: 09/25/17 08:35 Dose: 325 mg Glucagon (Glucagen Diagnostic Kit) 0 mg IM STAT PRN; Protocol PRN Reason: Hypoglycemia Protocol Heparin Sodium (Porcine) (Heparin) 5,000 units SC Q8 [facility] PRN Reason: Protocol Last Admin: 09/25/17 17:02 Dose: 5,000 units Insulin Detemir (Levemir) 8 units SC HS [facility] Last Admin: 09/24/17 21:07 Dose: 8 units Insulin Human Lispro (Humalog) 0 units SC ACHS [facility] PRN Reason: Protocol Last Admin: 09/25/17 17:05 Dose: 2 units Memantine (Namenda) 5 mg PO DAILY [facility] Last Admin: 09/25/17 08:35 Dose: 5 mg Multivitamins/Minerals (Therapeutic-M Tab) 1 tab PO DAILY [facility] Last Admin: 09/25/17 08:35 Dose: 1 tab Repaglinide (Prandin) 2 mg PO TID [facility] Last Admin: 09/21/17 08:31 Dose: 2 mg Sitagliptin Phosphate (Januvia) 25 mg PO DAILY [facility] Last Admin: 09/25/17 08:35 Dose: 25 mg Valsartan (Diovan) 80 mg PO DAILY [facility] Last Admin: 09/21/17 08:32 Dose: 80 mg Vancomycin HCl (Vancocin (Oral/Rectal Use)) 500 mg PO Q6 [facility] PRN Reason: Protocol Last Admin: 09/25/17 17:01 Dose: 500 mg - Labs Labs: 09/22/17 08:07 09/22/17 08:07 Assessment and Plan - Assessment and Plan (Free Text) Assessment: A ON CKD .. RENAL FUNCTION BETTER ANEMIA OF CKD .. H/H STABLE ELECTROLUTES ABN ... NOW BETTER UTI .. REPEAT U/A LOADED WITH WBC MMP P : C/O CURRENT CARE C/O PRESENT MEDS ID TO CHOOSE PO ANTI BIOTICS ..
[2017-09-25 20:31] LABS: HEMOGLOBIN 10.3 g/dL (12.0-16.0); MEAN CELL VOLUME 84.6 fl (81.0-99.0); MEAN CORPUSCULAR HGB CONC 31.9 g/dL (33.0-37.0); RBC 3.81 Mil/uL (3.80-5.20); RED CELL DISTRIBUTION WIDTH 13.6 % (11.5-14.5); WHITE BLOOD COUNT 7.8 K/uL (4.8-10.8)
[2017-09-25 20:47] LABS: CALCIUM 9.3 mg/dL (8.4-10.2)
[2017-09-25] MEDS: Insulin Detemir 100 Units/ml Inj SC SCH (21:24)
[2017-09-25] MEDS ORDERED: Albuterol 0.083% Inhal Sol (2.5 mg/3 mL) UD INH ONE (22:57)
[2017-09-25] MEDS ORDERED: Sodium Chloride 0.9% 1,000 ML IV SCH (23:00)
[2017-09-25] MEDS ORDERED: Albuterol 0.083% Inhal Sol (2.5 mg/3 mL) UD ONE (23:41)
[2017-09-26] MEDS: Vancomycin 500 mg (Oral/Rectal USE) PO SCH ×4 (04:58→22:12)
[2017-09-26 06:31] LABS: CALCIUM 9.2 mg/dL (8.4-10.2)
[2017-09-26] MEDS: Insulin Lispro (humaLOG) 100 Units/ml Inj SC SCH ×4 (06:57→22:12)
[2017-09-26] MEDS: Multivitamin With Minerals Tab PO SCH (08:53)
[2017-09-26] MEDS ORDERED: Sod Polystyrene Sulf 15 gm/60 ml Susp PO ONE ×2 (09:47→20:44)
--- NOTE | 2017-09-26 15:28 | CP.PCM.PN ---
<Aminata Lindsey - Last Filed: 09/26/17 15:25> Subjective - Date & Time of Evaluation Date of Evaluation: 09/26/17 Time of Evaluation: 08:00 - Subjective Subjective: PT seen and examined at bedside this am. No complaints. Doing well. States she will comply with physical therapy. Objective - Vital Signs/Intake and Output Vital Signs (last 24 hours): Temp Pulse Resp BP Pulse Ox 98.2 F 86 20 105/60 96 09/26/17 00:10 09/26/17 00:10 09/26/17 00:10 09/26/17 00:10 09/26/17 00:10 - Medications Medications: Current Medications Acetaminophen (Tylenol 325mg Tab) 650 mg PO Q4 PRN PRN Reason: Pain, Mild (1-3) Last Admin: 09/24/17 00:24 Dose: 650 mg Aspirin (Ecotrin) 81 mg PO DAILY [facility] Last Admin: 09/26/17 08:53 Dose: 81 mg Atorvastatin Calcium (Lipitor) 20 mg PO DAILY [facility] Last Admin: 09/26/17 08:53 Dose: 20 mg Dextrose (Dextrose 50% Inj) 0 ml IV STAT PRN; Protocol PRN Reason: Hypoglycemia Protocol Dextrose (Glutose 15) 0 gm PO ONCE PRN; Protocol PRN Reason: Hypoglycemia Protocol Ferrous Sulfate (Feosol) 325 mg PO DAILY [facility] Last Admin: 09/26/17 08:52 Dose: 325 mg Glucagon (Glucagen Diagnostic Kit) 0 mg IM STAT PRN; Protocol PRN Reason: Hypoglycemia Protocol Heparin Sodium (Porcine) (Heparin) 5,000 units SC Q8 [facility] PRN Reason: Protocol Last Admin: 09/26/17 08:52 Dose: 5,000 units Insulin Detemir (Levemir) 8 units SC HS [facility] Last Admin: 09/25/17 21:24 Dose: 8 units Insulin Human Lispro (Humalog) 0 units SC ACHS [facility] PRN Reason: Protocol Last Admin: 09/26/17 11:34 Dose: 2 units Memantine (Namenda) 5 mg PO DAILY [facility] Last Admin: 09/26/17 08:52 Dose: 5 mg Multivitamins/Minerals (Therapeutic-M Tab) 1 tab PO DAILY [facility] Last Admin: 09/26/17 08:53 Dose: 1 tab Repaglinide (Prandin) 2 mg PO TID [facility] Last Admin: 09/21/17 08:31 Dose: 2 mg Sitagliptin Phosphate (Januvia) 25 mg PO DAILY [facility] Last Admin: 09/26/17 08:52 Dose: 25 mg Valsartan (Diovan) 80 mg PO DAILY [facility] Last Admin: 09/21/17 08:32 Dose: 80 mg Vancomycin HCl (Vancocin (Oral/Rectal Use)) 500 mg PO Q6 [facility] PRN Reason: Protocol Last Admin: 09/26/17 09:00 Dose: 500 mg - Labs Labs: 09/25/17 19:43 09/26/17 05:45 - Constitutional Appears: Well, Non-toxic, No Acute Distress - Eye Exam Eye Exam: Normal appearance - ENT Exam ENT Exam: Mucous Membranes Moist - Respiratory Exam Respiratory Exam: Clear to Ausculation Bilateral. absent: Rales, Wheezes - Cardiovascular Exam Cardiovascular Exam: REGULAR RHYTHM, +S1, +S2. absent: Murmur - GI/Abdominal Exam GI & Abdominal Exam: Soft. absent: Distended, Tenderness - Extremities Exam Extremities Exam: Normal Inspection - Neurological Exam Neurological Exam: Alert, Awake, Oriented x3 - Psychiatric Exam Psychiatric exam: Normal Affect Assessment and Plan - Assessment and Plan (Free Text) Assessment: 77 yo F, with PMH CKD, DM2, HTN, with hx of poor followup, admitted to TCU for continued IV antibiotics and physical therapy, following admission to telemetry for sepsis (UTI 2/2 to retained stents vs C. diff), metabolic acidosis, electrolyte derangement, and acute on chronic kidney injury. C. diff positive; s /p replacement of formerly retained ureteral stents. No longer septic, kidney function improving, trending towards baseline. Spiked low grade fever overnight; new UA + LES. Urine CX no growth 24 hours. Anticipating discharge . Plan: # Diarrhea 2/2 to C. Diff - Improving - Oral vancomycin Day 04/22 ; previously was recording need for total of 24 days , but pt needs total of 14 days. - C. diff PCR B gene identified - Repeat C. diff toxin neg - Stool cx: no salmonella, shigella, or campylobacter #Acute on Chronic Kidney Injury , improving - Latest BUN/Cr: 53/3.5 - BUN/Cr on presentation: 132/10.3 - Last known BUN/CR 05/2017: 43/2.9 - Nephrology consult with Dr. Houston - pt refusing HD, continue w/ IV fluids, antibiotics; new urinalysis # UTI On presentation, pt had UTI likely secondary to retained stents. Urology consult - Dr. Valentine- stents replaced 09/18. ID consulted, Dr. Thomas - cefepime for /GI infection; cefepime course completed. Urine culture after initiation of cefepime and stent replacement showed no growth. - Pt has had low grade fevers (100.1); repeat UA was done after completion of cefepime and showed moderate leuk esterase, yeast, and many microscopic wbc - C/W Cipro renal dose 250 mg PO Q 18 hrs; first dose today 5 pm - Urine culture sent, pending # IDDM2 with Hyperglycemia - Levemir 8U QHS - Restart home meds Januvia - Hemoglobin A1C 12.0 - Lispro correction scale, Q6H - Accuchecks ACHS # Hypertension - Pt has history, but normotensive at this time without medication - Monitor # Fecal Occult Blood Positive - Pt would benefit from outpt GI follow-up # Right Adnexal Mass - Seen on CT on 2016, again seen on CT on this admission, stable in size - Monitor as outpt #) Diet - Renal diet #) Prophylactic Measures - Heparin 5000 units Q8 <Min Woody - Last Filed: 09/28/17 06:52> Objective - Vital Signs/Intake and Output Vital Signs (last 24 hours): Temp Pulse Resp BP Pulse Ox 98.1 F 79 20 104/58 L 98 09/27/17 22:00 09/27/17 20:10 09/27/17 20:10 09/27/17 20:10 09/27/17 20:10 - Medications Medications: Current Medications Acetaminophen (Tylenol 325mg Tab) 650 mg PO Q4 PRN PRN Reason: Fever >100.4 F Last Admin: 09/27/17 16:52 Dose: 650 mg Ascorbic Acid (Vitamin C 500 Mg Tab) 500 mg PO DAILY [facility] Last Admin: 09/27/17 08:38 Dose: 500 mg Aspirin (Ecotrin) 81 mg PO DAILY [facility] Last Admin: 09/27/17 08:38 Dose: 81 mg Atorvastatin Calcium (Lipitor) 20 mg PO DAILY [facility] Last Admin: 09/27/17 08:40 Dose: 20 mg Dextrose (Dextrose 50% Inj) 0 ml IV STAT PRN; Protocol PRN Reason: Hypoglycemia Protocol Dextrose (Glutose 15) 0 gm PO ONCE PRN; Protocol PRN Reason: Hypoglycemia Protocol Ergocalciferol (Drisdol 50,000 Intl Units Cap) 1 cap PO Q7D [facility] Last Admin: 09/26/17 22:10 Dose: 1 cap Ferrous Sulfate (Feosol) 325 mg PO DAILY [facility] Last Admin: 09/27/17 08:40 Dose: 325 mg Glucagon (Glucagen Diagnostic Kit) 0 mg IM STAT PRN; Protocol PRN Reason: Hypoglycemia Protocol Heparin Sodium (Porcine) (Heparin) 5,000 units SC Q8 [facility] PRN Reason: Protocol Last Admin: 09/28/17 00:27 Dose: 5,000 units Insulin Detemir (Levemir) 8 units SC HS [facility] Last Admin: 09/27/17 22:00 Dose: 8 units Insulin Human Lispro (Humalog) 0 units SC ACHS [facility] PRN Reason: Protocol Last Admin: 09/27/17 21:57 Dose: Not Given Memantine (Namenda) 5 mg PO DAILY [facility] Last Admin: 09/27/17 08:40 Dose: 5 mg Multivitamins/Minerals (Therapeutic-M Tab) 1 tab PO DAILY [facility] Last Admin: 09/27/17 08:40 Dose: 1 tab Repaglinide (Prandin) 2 mg PO TID@0730,1130,1630 [facility] Last Admin: 09/27/17 16:30 Dose: 2 mg Sitagliptin Phosphate (Januvia) 25 mg PO DAILY [facility] Last Admin: 09/27/17 08:38 Dose: 25 mg Trimethoprim/Sulfamethoxazole (Bactrim Ds Tab) 1 tab PO Q12 [facility] PRN Reason: Protocol Last Admin: 09/27/17 22:03 Dose: 1 tab Valsartan (Diovan) 80 mg PO DAILY [facility] Last Admin: 09/21/17 08:32 Dose: 80 mg Vancomycin HCl (Vancocin (Oral/Rectal Use)) 500 mg PO Q6 [facility] PRN Reason: Protocol Last Admin: 09/28/17 05:08 Dose: 500 mg - Labs Labs: 09/25/17 19:43 09/27/17 05:50 Attending/Attestation - Attestation I have personally seen and examined this patient.: Yes I have fully participated in the care of the patient.: Yes I have reviewed all pertinent clinical information, including history, physical exam and plan: Yes
[2017-09-26] MEDS ORDERED: Ergocalciferol 50,000 Intl Units Cap PO SCH (20:45)
--- NOTE | 2017-09-26 20:49 | CP.PCM.PN ---
Subjective - Date & Time of Evaluation Date of Evaluation: 09/26/17 Time of Evaluation: 14:00 - Subjective Subjective: SEEN ON RENAL F/U STILL WITH HYPERKALEMIA RENAL FUNCTION STABLE .. eGFR 14 ML/M Objective - Vital Signs/Intake and Output Vital Signs (last 24 hours): Temp Pulse Resp BP Pulse Ox 99.5 F 89 20 112/65 99 09/26/17 19:37 09/26/17 19:37 09/26/17 19:37 09/26/17 19:37 09/26/17 19:37 - Medications Medications: Current Medications Acetaminophen (Tylenol 325mg Tab) 650 mg PO Q4 PRN PRN Reason: Pain, Mild (1-3) Last Admin: 09/24/17 00:24 Dose: 650 mg Ascorbic Acid (Vitamin C 500 Mg Tab) 500 mg PO DAILY [facility] Aspirin (Ecotrin) 81 mg PO DAILY [facility] Last Admin: 09/26/17 08:53 Dose: 81 mg Atorvastatin Calcium (Lipitor) 20 mg PO DAILY [facility] Last Admin: 09/26/17 08:53 Dose: 20 mg Dextrose (Dextrose 50% Inj) 0 ml IV STAT PRN; Protocol PRN Reason: Hypoglycemia Protocol Dextrose (Glutose 15) 0 gm PO ONCE PRN; Protocol PRN Reason: Hypoglycemia Protocol Ergocalciferol (Drisdol 50,000 Intl Units Cap) 1 cap PO Q7D [facility] Ferrous Sulfate (Feosol) 325 mg PO DAILY [facility] Last Admin: 09/26/17 08:52 Dose: 325 mg Glucagon (Glucagen Diagnostic Kit) 0 mg IM STAT PRN; Protocol PRN Reason: Hypoglycemia Protocol Heparin Sodium (Porcine) (Heparin) 5,000 units SC Q8 [facility] PRN Reason: Protocol Last Admin: 09/26/17 17:21 Dose: 5,000 units Insulin Detemir (Levemir) 8 units SC HS [facility] Last Admin: 09/25/17 21:24 Dose: 8 units Insulin Human Lispro (Humalog) 0 units SC ACHS [facility] PRN Reason: Protocol Last Admin: 09/26/17 17:21 Dose: 3 units Memantine (Namenda) 5 mg PO DAILY [facility] Last Admin: 09/26/17 08:52 Dose: 5 mg Multivitamins/Minerals (Therapeutic-M Tab) 1 tab PO DAILY [facility] Last Admin: 09/26/17 08:53 Dose: 1 tab Repaglinide (Prandin) 2 mg PO TID [facility] Last Admin: 09/21/17 08:31 Dose: 2 mg Sitagliptin Phosphate (Januvia) 25 mg PO DAILY [facility] Last Admin: 09/26/17 08:52 Dose: 25 mg Valsartan (Diovan) 80 mg PO DAILY [facility] Last Admin: 09/21/17 08:32 Dose: 80 mg Vancomycin HCl (Vancocin (Oral/Rectal Use)) 500 mg PO Q6 [facility] PRN Reason: Protocol Last Admin: 09/26/17 17:22 Dose: 500 mg - Labs Labs: 09/25/17 19:43 09/26/17 05:45 Assessment and Plan - Assessment and Plan (Free Text) Assessment: A ON CKD .. ADVANCED CKD .. REFUSES HD ANEMIA OF CKD .. H/H STABLE HYPERKALEMIA .. GIVE KAYAXALATE C/O CURRENT CARE CHANGE DIET TO 2 GM NA .. 2 GM K .. 50 GM PROTIEN .. 1800 DELIA ADA
[2017-09-26] MEDS: Insulin Detemir 100 Units/ml Inj SC SCH (21:34)
[2017-09-27] MEDS: Vancomycin 500 mg (Oral/Rectal USE) PO SCH ×4 (03:42→22:04)
[2017-09-27] MEDS: Insulin Lispro (humaLOG) 100 Units/ml Inj SC SCH ×4 (06:59→21:57)
[2017-09-27] MEDS: Multivitamin With Minerals Tab PO SCH (08:40)
--- NOTE | 2017-09-27 11:51 | CP.PCM.PN ---
Subjective - Date & Time of Evaluation Date of Evaluation: 09/27/17 Time of Evaluation: 09:00 - Subjective Subjective: As per PT, pt has been partially complaint with PT (did not finish session but walked a few steps). Not safe for discharge from Physical Therapy perspective Pt seen at bedside this am. Was in good mood. Stated she would continue to participate with physical therapy. Mild Dysuria Tolerating diet. No fever, chills. Objective - Vital Signs/Intake and Output Vital Signs (last 24 hours): Temp Pulse Resp BP Pulse Ox 99.5 F 84 20 122/67 99 09/27/17 08:48 09/27/17 11:03 09/27/17 08:48 09/27/17 11:03 09/27/17 11:03 - Medications Medications: Current Medications Acetaminophen (Tylenol 325mg Tab) 650 mg PO Q4 PRN PRN Reason: Pain, Mild (1-3) Last Admin: 09/24/17 00:24 Dose: 650 mg Ascorbic Acid (Vitamin C 500 Mg Tab) 500 mg PO DAILY [facility] Last Admin: 09/27/17 08:38 Dose: 500 mg Aspirin (Ecotrin) 81 mg PO DAILY [facility] Last Admin: 09/27/17 08:38 Dose: 81 mg Atorvastatin Calcium (Lipitor) 20 mg PO DAILY [facility] Last Admin: 09/27/17 08:40 Dose: 20 mg Dextrose (Dextrose 50% Inj) 0 ml IV STAT PRN; Protocol PRN Reason: Hypoglycemia Protocol Dextrose (Glutose 15) 0 gm PO ONCE PRN; Protocol PRN Reason: Hypoglycemia Protocol Ergocalciferol (Drisdol 50,000 Intl Units Cap) 1 cap PO Q7D [facility] Last Admin: 09/26/17 22:10 Dose: 1 cap Ferrous Sulfate (Feosol) 325 mg PO DAILY [facility] Last Admin: 09/27/17 08:40 Dose: 325 mg Glucagon (Glucagen Diagnostic Kit) 0 mg IM STAT PRN; Protocol PRN Reason: Hypoglycemia Protocol Heparin Sodium (Porcine) (Heparin) 5,000 units SC Q8 [facility] PRN Reason: Protocol Last Admin: 09/27/17 08:37 Dose: 5,000 units Insulin Detemir (Levemir) 8 units SC HS [facility] Last Admin: 09/26/17 21:34 Dose: 8 units Insulin Human Lispro (Humalog) 0 units SC ACHS [facility] PRN Reason: Protocol Last Admin: 09/27/17 06:59 Dose: 3 units Memantine (Namenda) 5 mg PO DAILY [facility] Last Admin: 09/27/17 08:40 Dose: 5 mg Multivitamins/Minerals (Therapeutic-M Tab) 1 tab PO DAILY [facility] Last Admin: 09/27/17 08:40 Dose: 1 tab Repaglinide (Prandin) 2 mg PO TID@0730,1130,1630 [facility] Sitagliptin Phosphate (Januvia) 25 mg PO DAILY [facility] Last Admin: 09/27/17 08:38 Dose: 25 mg Trimethoprim/Sulfamethoxazole (Bactrim Ds Tab) 1 tab PO Q12 [facility] PRN Reason: Protocol Valsartan (Diovan) 80 mg PO DAILY [facility] Last Admin: 09/21/17 08:32 Dose: 80 mg Vancomycin HCl (Vancocin (Oral/Rectal Use)) 500 mg PO Q6 [facility] PRN Reason: Protocol Last Admin: 09/27/17 03:42 Dose: 500 mg - Labs Labs: 09/25/17 19:43 09/27/17 05:50 - Constitutional Appears: Well, Non-toxic, No Acute Distress - Head Exam Head Exam: NORMAL INSPECTION - Eye Exam Eye Exam: Normal appearance - ENT Exam ENT Exam: Mucous Membranes Moist - Respiratory Exam Respiratory Exam: Clear to Ausculation Bilateral. absent: Rales, Wheezes - Cardiovascular Exam Cardiovascular Exam: REGULAR RHYTHM, +S1, +S2. absent: Murmur - GI/Abdominal Exam GI & Abdominal Exam: Soft, Normal Bowel Sounds. absent: Distended, Guarding, Rigid, Tenderness - Extremities Exam Extremities Exam: Normal Inspection - Neurological Exam Neurological Exam: Alert, Awake, Oriented x3 - Psychiatric Exam Psychiatric exam: Normal Affect - Skin Skin Exam: Normal Color Assessment and Plan - Assessment and Plan (Free Text) Assessment: Assessment: 77 yo F, with PMH CKD, DM2, HTN, with hx of poor followup, admitted to TCU for continued IV antibiotics and physical therapy, following admission to telemetry for sepsis (UTI 2/2 to retained stents vs C. diff), metabolic acidosis, electrolyte derangement, and acute on chronic kidney injury. C. diff positive; s /p replacement of formerly retained ureteral stents. No longer septic, kidney function improving, trending towards baseline. Spiked low grade fever of 100.4 overnight; U/A + for bacteria but Urine CX no growth 48. On Empiric ABX as per ID. Plan: # Diarrhea 2/2 to C. Diff - Improving - Oral vancomycin Day 05/23 ; previously was recording need for total of 24 days , but pt needs total of 14 days. - C. diff PCR B gene identified - Repeat C. diff toxin neg - Stool cx: no salmonella, shigella, or campylobacter #Acute on Chronic Kidney Injury , improving - Latest BUN/Cr: 53/3.5 - BUN/Cr on presentation: 132/10.3 - Last known BUN/CR 05/2017: 43/2.9 - Nephrology consult with Dr. Houston - pt refusing HD, continue w/ IV fluids, antibiotics; # UTI On presentation, pt had UTI likely secondary to retained stents. Urology consult - Dr. Valentine- stents replaced 09/18. ID consulted, Dr. Thomas - cefepime for /GI infection; cefepime course completed. Urine culture after initiation of cefepime and stent replacement showed no growth. - Pt has had low grade fevers (100.1); repeat UA was done after completion of cefepime and showed moderate leuk esterase, yeast, and many microscopic wbc -Started Bactrim PO Q 12 - Urine culture sent, pending # IDDM2 with Hyperglycemia - Levemir 8U QHS - Restart home meds Januvia - Hemoglobin A1C 12.0 - Lispro correction scale, Q6H - Accuchecks ACHS # Hypertension - Pt has history, but normotensive at this time without medication - Monitor # Fecal Occult Blood Positive - Pt would benefit from outpt GI follow-up # Right Adnexal Mass - Seen on CT on 2016, again seen on CT on this admission, stable in size - Monitor as outpt #) Diet - Renal diet #) Prophylactic Measures - Heparin 5000 units Q8
[2017-09-27] MEDS: Tmp-Smz 800 mg-160 mg DS Tab PO SCH ×2 (12:06→22:03)
--- NOTE | 2017-09-27 16:08 | CP.PCM.PN ---
Subjective - Date & Time of Evaluation Date of Evaluation: 09/27/17 Time of Evaluation: 16:05 - Subjective Subjective: Urology follow up On September 18 I replaced Bilateral JJ stents from the bladder to the kidneys. Her chronic renal failure persists. At this time there is no further urologic intervention that can be done from my prespective to improve her renal status Objective - Vital Signs/Intake and Output Vital Signs (last 24 hours): Temp Pulse Resp BP Pulse Ox 100.8 F H 77 20 109/62 98 09/27/17 15:53 09/27/17 15:53 09/27/17 15:53 09/27/17 15:53 09/27/17 15:53 - Medications Medications: Current Medications Acetaminophen (Tylenol 325mg Tab) 650 mg PO Q4 PRN PRN Reason: Pain, Mild (1-3) Last Admin: 09/24/17 00:24 Dose: 650 mg Ascorbic Acid (Vitamin C 500 Mg Tab) 500 mg PO DAILY [facility] Last Admin: 09/27/17 08:38 Dose: 500 mg Aspirin (Ecotrin) 81 mg PO DAILY [facility] Last Admin: 09/27/17 08:38 Dose: 81 mg Atorvastatin Calcium (Lipitor) 20 mg PO DAILY [facility] Last Admin: 09/27/17 08:40 Dose: 20 mg Dextrose (Dextrose 50% Inj) 0 ml IV STAT PRN; Protocol PRN Reason: Hypoglycemia Protocol Dextrose (Glutose 15) 0 gm PO ONCE PRN; Protocol PRN Reason: Hypoglycemia Protocol Ergocalciferol (Drisdol 50,000 Intl Units Cap) 1 cap PO Q7D [facility] Last Admin: 09/26/17 22:10 Dose: 1 cap Ferrous Sulfate (Feosol) 325 mg PO DAILY [facility] Last Admin: 09/27/17 08:40 Dose: 325 mg Glucagon (Glucagen Diagnostic Kit) 0 mg IM STAT PRN; Protocol PRN Reason: Hypoglycemia Protocol Heparin Sodium (Porcine) (Heparin) 5,000 units SC Q8 [facility] PRN Reason: Protocol Last Admin: 09/27/17 08:37 Dose: 5,000 units Insulin Detemir (Levemir) 8 units SC HS [facility] Last Admin: 09/26/17 21:34 Dose: 8 units Insulin Human Lispro (Humalog) 0 units SC ACHS [facility] PRN Reason: Protocol Last Admin: 09/27/17 12:04 Dose: 3 units Memantine (Namenda) 5 mg PO DAILY [facility] Last Admin: 09/27/17 08:40 Dose: 5 mg Multivitamins/Minerals (Therapeutic-M Tab) 1 tab PO DAILY [facility] Last Admin: 09/27/17 08:40 Dose: 1 tab Repaglinide (Prandin) 2 mg PO TID@0730,1130,1630 [facility] Last Admin: 09/27/17 12:03 Dose: 2 mg Sitagliptin Phosphate (Januvia) 25 mg PO DAILY [facility] Last Admin: 09/27/17 08:38 Dose: 25 mg Trimethoprim/Sulfamethoxazole (Bactrim Ds Tab) 1 tab PO Q12 [facility] PRN Reason: Protocol Last Admin: 09/27/17 12:06 Dose: 1 tab Valsartan (Diovan) 80 mg PO DAILY [facility] Last Admin: 09/21/17 08:32 Dose: 80 mg Vancomycin HCl (Vancocin (Oral/Rectal Use)) 500 mg PO Q6 [facility] PRN Reason: Protocol Last Admin: 09/27/17 09:10 Dose: 500 mg - Labs Labs: 09/25/17 19:43 09/27/17 05:50
--- NOTE | 2017-09-27 17:14 | CP.PCM.PN ---
Subjective - Date & Time of Evaluation Date of Evaluation: 09/27/17 Time of Evaluation: 13:00 - Subjective Subjective: FEELS IMPROVED ALL PREVIOUS EMR REVIEWED PT REFUSES HD Objective - Vital Signs/Intake and Output Vital Signs (last 24 hours): Temp Pulse Resp BP Pulse Ox 100.8 F H 77 20 109/62 98 09/27/17 16:52 09/27/17 15:53 09/27/17 15:53 09/27/17 15:53 09/27/17 15:53 - Medications Medications: Current Medications Acetaminophen (Tylenol 325mg Tab) 650 mg PO Q4 PRN PRN Reason: Fever >100.4 F Last Admin: 09/27/17 16:52 Dose: 650 mg Ascorbic Acid (Vitamin C 500 Mg Tab) 500 mg PO DAILY [facility] Last Admin: 09/27/17 08:38 Dose: 500 mg Aspirin (Ecotrin) 81 mg PO DAILY [facility] Last Admin: 09/27/17 08:38 Dose: 81 mg Atorvastatin Calcium (Lipitor) 20 mg PO DAILY [facility] Last Admin: 09/27/17 08:40 Dose: 20 mg Dextrose (Dextrose 50% Inj) 0 ml IV STAT PRN; Protocol PRN Reason: Hypoglycemia Protocol Dextrose (Glutose 15) 0 gm PO ONCE PRN; Protocol PRN Reason: Hypoglycemia Protocol Ergocalciferol (Drisdol 50,000 Intl Units Cap) 1 cap PO Q7D [facility] Last Admin: 09/26/17 22:10 Dose: 1 cap Ferrous Sulfate (Feosol) 325 mg PO DAILY [facility] Last Admin: 09/27/17 08:40 Dose: 325 mg Glucagon (Glucagen Diagnostic Kit) 0 mg IM STAT PRN; Protocol PRN Reason: Hypoglycemia Protocol Heparin Sodium (Porcine) (Heparin) 5,000 units SC Q8 [facility] PRN Reason: Protocol Last Admin: 09/27/17 16:45 Dose: 5,000 units Insulin Detemir (Levemir) 8 units SC HS [facility] Last Admin: 09/26/17 21:34 Dose: 8 units Insulin Human Lispro (Humalog) 0 units SC ACHS [facility] PRN Reason: Protocol Last Admin: 09/27/17 16:31 Dose: 2 units Memantine (Namenda) 5 mg PO DAILY [facility] Last Admin: 09/27/17 08:40 Dose: 5 mg Multivitamins/Minerals (Therapeutic-M Tab) 1 tab PO DAILY [facility] Last Admin: 09/27/17 08:40 Dose: 1 tab Repaglinide (Prandin) 2 mg PO TID@0730,1130,1630 [facility] Last Admin: 09/27/17 16:30 Dose: 2 mg Sitagliptin Phosphate (Januvia) 25 mg PO DAILY [facility] Last Admin: 09/27/17 08:38 Dose: 25 mg Trimethoprim/Sulfamethoxazole (Bactrim Ds Tab) 1 tab PO Q12 [facility] PRN Reason: Protocol Last Admin: 09/27/17 12:06 Dose: 1 tab Valsartan (Diovan) 80 mg PO DAILY [facility] Last Admin: 09/21/17 08:32 Dose: 80 mg Vancomycin HCl (Vancocin (Oral/Rectal Use)) 500 mg PO Q6 [facility] PRN Reason: Protocol Last Admin: 09/27/17 16:30 Dose: 500 mg - Labs Labs: 09/25/17 19:43 09/27/17 05:50 Assessment and Plan - Assessment and Plan (Free Text) Assessment: A ON CKD .. RENAL FUNCTION IMPROCED ANEMIA OF CKD .. H/H STABLE .. ON PO IRON UTI .. ON BACTRIM MMP P : C/O CURRENT CARE C/O PRESENT MANAGEMENT
[2017-09-27] MEDS: Insulin Detemir 100 Units/ml Inj SC SCH (22:00)
[2017-09-28] MEDS: Vancomycin 500 mg (Oral/Rectal USE) PO SCH ×4 (05:08→21:23)
[2017-09-28] MEDS: Insulin Lispro (humaLOG) 100 Units/ml Inj SC SCH ×4 (07:34→21:23)
[2017-09-28] MEDS: Multivitamin With Minerals Tab PO SCH (09:04)
[2017-09-28] MEDS: Tmp-Smz 800 mg-160 mg DS Tab PO SCH ×2 (09:04→21:18)
--- NOTE | 2017-09-28 14:06 | CP.PCM.PN ---
Subjective - Date & Time of Evaluation Date of Evaluation: 09/28/17 Time of Evaluation: 14:05 Objective - Vital Signs/Intake and Output Vital Signs (last 24 hours): Temp Pulse Resp BP Pulse Ox 98.2 F 79 20 110/64 98 09/28/17 07:51 09/28/17 07:51 09/28/17 07:51 09/28/17 07:51 09/28/17 07:51 - Medications Medications: Current Medications Acetaminophen (Tylenol 325mg Tab) 650 mg PO Q4 PRN PRN Reason: Fever >100.4 F Last Admin: 09/27/17 16:52 Dose: 650 mg Ascorbic Acid (Vitamin C 500 Mg Tab) 500 mg PO DAILY [facility] Last Admin: 09/28/17 09:05 Dose: 500 mg Aspirin (Ecotrin) 81 mg PO DAILY [facility] Last Admin: 09/28/17 09:04 Dose: 81 mg Atorvastatin Calcium (Lipitor) 20 mg PO DAILY [facility] Last Admin: 09/28/17 09:04 Dose: 20 mg Dextrose (Dextrose 50% Inj) 0 ml IV STAT PRN; Protocol PRN Reason: Hypoglycemia Protocol Dextrose (Glutose 15) 0 gm PO ONCE PRN; Protocol PRN Reason: Hypoglycemia Protocol Ergocalciferol (Drisdol 50,000 Intl Units Cap) 1 cap PO Q7D [facility] Last Admin: 09/26/17 22:10 Dose: 1 cap Ferrous Sulfate (Feosol) 325 mg PO DAILY [facility] Last Admin: 09/28/17 09:04 Dose: 325 mg Glucagon (Glucagen Diagnostic Kit) 0 mg IM STAT PRN; Protocol PRN Reason: Hypoglycemia Protocol Heparin Sodium (Porcine) (Heparin) 5,000 units SC Q8 [facility] PRN Reason: Protocol Last Admin: 09/28/17 09:07 Dose: 5,000 units Insulin Detemir (Levemir) 8 units SC HS [facility] Last Admin: 09/27/17 22:00 Dose: 8 units Insulin Human Lispro (Humalog) 0 units SC ACHS [facility] PRN Reason: Protocol Last Admin: 09/28/17 11:58 Dose: 2 units Memantine (Namenda) 5 mg PO DAILY [facility] Last Admin: 09/28/17 09:05 Dose: 5 mg Multivitamins/Minerals (Therapeutic-M Tab) 1 tab PO DAILY [facility] Last Admin: 09/28/17 09:04 Dose: 1 tab Repaglinide (Prandin) 2 mg PO TID@0730,1130,1630 [facility] Last Admin: 09/28/17 11:59 Dose: 2 mg Sitagliptin Phosphate (Januvia) 25 mg PO DAILY [facility] Last Admin: 09/28/17 09:05 Dose: 25 mg Trimethoprim/Sulfamethoxazole (Bactrim Ds Tab) 1 tab PO Q12 [facility] PRN Reason: Protocol Last Admin: 09/28/17 09:04 Dose: 1 tab Valsartan (Diovan) 80 mg PO DAILY [facility] Last Admin: 09/21/17 08:32 Dose: 80 mg Vancomycin HCl (Vancocin (Oral/Rectal Use)) 500 mg PO Q6 [facility] PRN Reason: Protocol Last Admin: 09/28/17 09:05 Dose: 500 mg - Labs Labs: 09/25/17 19:43 09/27/17 05:50 Assessment and Plan (1) Clostridium difficile diarrhea Status: Acute (2) Acute on chronic renal failure Status: Acute (3) UTI (urinary tract infection) Status: Acute
--- NOTE | 2017-09-28 15:43 | CP.PCM.PN ---
<Aminata Lindsey - Last Filed: 09/28/17 15:39> Subjective - Date & Time of Evaluation Date of Evaluation: 09/28/17 Time of Evaluation: 08:00 - Subjective Subjective: Pt seen in the am. States she feels good and is ready to go home. Said she spoke to her son on the phone who told her he would be coming by to pick her up. Objective - Vital Signs/Intake and Output Vital Signs (last 24 hours): Temp Pulse Resp BP Pulse Ox 98.2 F 79 20 110/64 98 09/28/17 07:51 09/28/17 07:51 09/28/17 07:51 09/28/17 07:51 09/28/17 07:51 - Medications Medications: Current Medications Acetaminophen (Tylenol 325mg Tab) 650 mg PO Q4 PRN PRN Reason: Fever >100.4 F Last Admin: 09/27/17 16:52 Dose: 650 mg Ascorbic Acid (Vitamin C 500 Mg Tab) 500 mg PO DAILY [facility] Last Admin: 09/28/17 09:05 Dose: 500 mg Aspirin (Ecotrin) 81 mg PO DAILY [facility] Last Admin: 09/28/17 09:04 Dose: 81 mg Atorvastatin Calcium (Lipitor) 20 mg PO DAILY [facility] Last Admin: 09/28/17 09:04 Dose: 20 mg Dextrose (Dextrose 50% Inj) 0 ml IV STAT PRN; Protocol PRN Reason: Hypoglycemia Protocol Dextrose (Glutose 15) 0 gm PO ONCE PRN; Protocol PRN Reason: Hypoglycemia Protocol Ergocalciferol (Drisdol 50,000 Intl Units Cap) 1 cap PO Q7D [facility] Last Admin: 09/26/17 22:10 Dose: 1 cap Ferrous Sulfate (Feosol) 325 mg PO DAILY [facility] Last Admin: 09/28/17 09:04 Dose: 325 mg Glucagon (Glucagen Diagnostic Kit) 0 mg IM STAT PRN; Protocol PRN Reason: Hypoglycemia Protocol Heparin Sodium (Porcine) (Heparin) 5,000 units SC Q8 [facility] PRN Reason: Protocol Last Admin: 09/28/17 09:07 Dose: 5,000 units Insulin Detemir (Levemir) 8 units SC HS [facility] Last Admin: 09/27/17 22:00 Dose: 8 units Insulin Human Lispro (Humalog) 0 units SC ACHS [facility] PRN Reason: Protocol Last Admin: 09/28/17 11:58 Dose: 2 units Memantine (Namenda) 5 mg PO DAILY [facility] Last Admin: 09/28/17 09:05 Dose: 5 mg Multivitamins/Minerals (Therapeutic-M Tab) 1 tab PO DAILY [facility] Last Admin: 09/28/17 09:04 Dose: 1 tab Repaglinide (Prandin) 2 mg PO TID@0730,1130,1630 [facility] Last Admin: 09/28/17 11:59 Dose: 2 mg Sitagliptin Phosphate (Januvia) 25 mg PO DAILY [facility] Last Admin: 09/28/17 09:05 Dose: 25 mg Trimethoprim/Sulfamethoxazole (Bactrim Ds Tab) 1 tab PO Q12 [facility] PRN Reason: Protocol Last Admin: 09/28/17 09:04 Dose: 1 tab Valsartan (Diovan) 80 mg PO DAILY [facility] Last Admin: 09/21/17 08:32 Dose: 80 mg Vancomycin HCl (Vancocin (Oral/Rectal Use)) 500 mg PO Q6 [facility] PRN Reason: Protocol Last Admin: 09/28/17 09:05 Dose: 500 mg - Labs Labs: 09/25/17 19:43 09/27/17 05:50 - Constitutional Appears: Well, Non-toxic, No Acute Distress, Chronically Ill - Eye Exam Eye Exam: Normal appearance - ENT Exam ENT Exam: Mucous Membranes Moist - Respiratory Exam Respiratory Exam: Clear to Ausculation Bilateral. absent: Rales, Wheezes - Cardiovascular Exam Cardiovascular Exam: REGULAR RHYTHM, +S1, +S2. absent: Murmur - GI/Abdominal Exam GI & Abdominal Exam: Soft, Normal Bowel Sounds. absent: Tenderness - Extremities Exam Extremities Exam: absent: Pedal Edema - Neurological Exam Neurological Exam: Alert, Awake, Oriented x3 - Psychiatric Exam Psychiatric exam: Normal Mood - Skin Skin Exam: Normal Color Assessment and Plan - Assessment and Plan (Free Text) Assessment: 77 yo F, with PMH CKD, DM2, HTN, with hx of poor followup, admitted to TCU for continued IV antibiotics and physical therapy, following admission to telemetry for sepsis (UTI 2/2 to retained stents vs C. diff), metabolic acidosis, electrolyte derangement, and acute on chronic kidney injury. C. diff positive; s /p replacement of formerly retained ureteral stents. No longer septic, kidney function improving, trending towards baseline. We were anticipating a discharge today, however pt's son stated he is unable to receive her (despite pt telling us she spoke to him in the morning and made arrangements). Pt's son may be able to receive her tomorrow. The other factor that prevented her discharge is an inability to attain a transport service that the patient's insurance covers. Pt will remain in hospital until safe for discharge. Plan: # Diarrhea 2/2 to C. Diff - Improving - Oral vancomycin Day 05/23 ; previously was recording need for total of 24 days , but pt needs total of 14 days. - C. diff PCR B gene identified - Repeat C. diff toxin neg - Stool cx: no salmonella, shigella, or campylobacter #Acute on Chronic Kidney Injury , improving - Latest BUN/Cr: 53/3.5 - BUN/Cr on presentation: 132/10.3 - Last known BUN/CR 05/2017: 43/2.9 - Nephrology consult with Dr. Houston - pt refusing HD, continue w/ IV fluids, antibiotics; # UTI On presentation, pt had UTI likely secondary to retained stents. Urology consult - Dr. Valentine- stents replaced 09/18. ID consulted, Dr. Thomas - cefepime for /GI infection; cefepime course completed. Urine culture after initiation of cefepime and stent replacement showed no growth. - Pt has had low grade fevers (100.1); repeat UA was done after completion of cefepime and showed moderate leuk esterase, yeast, and many microscopic wbc -Started Bactrim PO Q 12 - Urine culture sent, pending # IDDM2 with Hyperglycemia - Levemir 8U QHS - Restart home meds Januvia - Hemoglobin A1C 12.0 - Lispro correction scale, Q6H - Accuchecks ACHS # Hypertension - Pt has history, but normotensive at this time without medication - Monitor # Fecal Occult Blood Positive - Pt would benefit from outpt GI follow-up # Right Adnexal Mass - Seen on CT on 2016, again seen on CT on this admission, stable in size - Monitor as outpt #) Diet - Renal diet #) Prophylactic Measures - Heparin 5000 units Q8 <Min Woody - Last Filed: 10/02/17 06:51> Objective - Vital Signs/Intake and Output Vital Signs (last 24 hours): Temp Pulse Resp BP Pulse Ox 98.6 F 82 20 112/65 99 09/29/17 08:07 09/29/17 08:07 09/29/17 08:07 09/29/17 08:07 09/29/17 08:07 - Labs Labs: 09/25/17 19:43 09/27/17 05:50 Attending/Attestation - Attestation I have personally seen and examined this patient.: Yes I have fully participated in the care of the patient.: Yes I have reviewed all pertinent clinical information, including history, physical exam and plan: Yes
--- NOTE | 2017-09-28 19:21 | CP.PCM.PN ---
Subjective - Date & Time of Evaluation Date of Evaluation: 09/28/17 Time of Evaluation: 15:00 - Subjective Subjective: SEEN ON RNEAL F/U FEELS IMPROVED ON BACTRIM FOR UTI ON PO VANCO FOR C DIFF RENAL FUNCTION STABLE Objective - Vital Signs/Intake and Output Vital Signs (last 24 hours): Temp Pulse Resp BP Pulse Ox 99.3 F 79 20 106/66 99 09/28/17 15:55 09/28/17 15:55 09/28/17 15:55 09/28/17 15:55 09/28/17 15:55 - Medications Medications: Current Medications Acetaminophen (Tylenol 325mg Tab) 650 mg PO Q4 PRN PRN Reason: Fever >100.4 F Last Admin: 09/27/17 16:52 Dose: 650 mg Ascorbic Acid (Vitamin C 500 Mg Tab) 500 mg PO DAILY [facility] Last Admin: 09/28/17 09:05 Dose: 500 mg Aspirin (Ecotrin) 81 mg PO DAILY [facility] Last Admin: 09/28/17 09:04 Dose: 81 mg Atorvastatin Calcium (Lipitor) 20 mg PO DAILY [facility] Last Admin: 09/28/17 09:04 Dose: 20 mg Dextrose (Dextrose 50% Inj) 0 ml IV STAT PRN; Protocol PRN Reason: Hypoglycemia Protocol Dextrose (Glutose 15) 0 gm PO ONCE PRN; Protocol PRN Reason: Hypoglycemia Protocol Ergocalciferol (Drisdol 50,000 Intl Units Cap) 1 cap PO Q7D [facility] Last Admin: 09/26/17 22:10 Dose: 1 cap Ferrous Sulfate (Feosol) 325 mg PO DAILY [facility] Last Admin: 09/28/17 09:04 Dose: 325 mg Glucagon (Glucagen Diagnostic Kit) 0 mg IM STAT PRN; Protocol PRN Reason: Hypoglycemia Protocol Heparin Sodium (Porcine) (Heparin) 5,000 units SC Q8 [facility] PRN Reason: Protocol Last Admin: 09/28/17 17:13 Dose: 5,000 units Insulin Detemir (Levemir) 8 units SC HS [facility] Last Admin: 09/27/17 22:00 Dose: 8 units Insulin Human Lispro (Humalog) 0 units SC ACHS [facility] PRN Reason: Protocol Last Admin: 09/28/17 17:13 Dose: 3 units Memantine (Namenda) 5 mg PO DAILY [facility] Last Admin: 03/22/18 09:05 Dose: 5 mg Multivitamins/Minerals (Therapeutic-M Tab) 1 tab PO DAILY [facility] Last Admin: 09/28/17 09:04 Dose: 1 tab Repaglinide (Prandin) 2 mg PO TID@0730,1130,1630 [facility] Last Admin: 09/28/17 17:14 Dose: 2 mg Sitagliptin Phosphate (Januvia) 25 mg PO DAILY [facility] Last Admin: 09/28/17 09:05 Dose: 25 mg Trimethoprim/Sulfamethoxazole (Bactrim Ds Tab) 1 tab PO Q12 [place] PRN Reason: Protocol Last Admin: 09/28/17 09:04 Dose: 1 tab Valsartan (Diovan) 80 mg PO DAILY [facility] Last Admin: 09/21/17 08:32 Dose: 80 mg Vancomycin HCl (Vancocin (Oral/Rectal Use)) 500 mg PO Q6 [place] PRN Reason: Protocol Last Admin: 09/28/17 17:14 Dose: 500 mg - Labs Labs: 09/25/17 19:43 09/27/17 05:50 Assessment and Plan - Assessment and Plan (Free Text) Assessment: A ON CKD .. RENAL FUNCTION MUCH IMPROVED ANEMIA OF CKD .. H/H STABLE UTI ON PO BACTRIM C DIFF ON PO VANCO P : C/O CURRENT CARE
[2017-09-28] MEDS: Insulin Detemir 100 Units/ml Inj SC SCH (21:18)
[2017-09-29] MEDS: Vancomycin 500 mg (Oral/Rectal USE) PO SCH ×2 (05:24→09:01)
[2017-09-29 08:08] VITALS: BP 112/65; PULSE 82; TEMP 98.6; O2SAT 99
[2017-09-29] MEDS: Insulin Lispro (humaLOG) 100 Units/ml Inj SC SCH ×2 (08:52→12:15)
[2017-09-29] MEDS: Tmp-Smz 800 mg-160 mg DS Tab PO SCH (08:53)
[2017-09-29] MEDS: Multivitamin With Minerals Tab PO SCH (08:53)
--- NOTE | 2017-09-29 12:55 | CP.PCM.DIS ---
Provider - Provider Date of Admission: 09/20/17 19:34 Attending physician: Jose Juan Boswell MD Time Spent in preparation of Discharge (in minutes): 55 Diagnosis - Discharge Diagnosis (1) Acute on chronic renal failure Status: Acute (2) UTI (urinary tract infection) Status: Acute (3) Clostridium difficile diarrhea Status: Acute Hospital Course - Lab Results Lab Results: Micro Results 09/24/17 07:40 Urine,Catheterized Urine Culture - Final No Growth (<1,000 CFU/ML) Most Recent Lab Values WBC 7.8 K/uL (4.8-10.8) 09/25/17 19:43 RBC 3.81 Mil/uL (3.80-5.20) 09/25/17 19:43 Hgb 10.3 g/dL (12.0-16.0) L 09/25/17 19:43 Hct 32.3 % (34.0-47.0) L 09/25/17 19:43 MCV 84.6 fl (81.0-99.0) 09/25/17 19:43 MCH 27.0 pg (27.0-31.0) 09/25/17 19:43 MCHC 31.9 g/dL (33.0-37.0) L 09/25/17 19:43 RDW 13.6 % (11.5-14.5) 09/25/17 19:43 Plt Count 439 K/uL (130-400) H 09/25/17 19:43 MPV 8.0 fl (7.2-11.7) 09/21/17 07:29 Neut % (Auto) 48.2 % (50.0-75.0) L 09/21/17 07:29 Lymph % (Auto) 29.9 % (20.0-40.0) 09/21/17 07:29 [place] % (Auto) 17.6 % (0.0-10.0) H 09/21/17 07:29 Eos % (Auto) 3.6 % (0.0-4.0) 09/21/17 07:29 Baso % (Auto) 0.7 % (0.0-2.0) 09/21/17 07:29 Neut # (Auto) 3.0 K/uL (1.8-7.0) 09/21/17 07:29 Lymph # (Auto) 1.9 K/uL (1.0-4.3) 09/21/17 07:29 [place] # (Auto) 1.1 K/uL (0.0-0.8) H 09/21/17 07:29 Eos # (Auto) 0.2 K/uL (0.0-0.7) 09/21/17 07:29 Baso # (Auto) 0.0 K/uL (0.0-0.2) 09/21/17 07:29 Sodium 137 mmol/l (132-148) 09/27/17 05:50 Potassium 5.0 MMOL/L (3.6-5.0) 09/27/17 05:50 Chloride 105 mmol/L (98-107) 09/27/17 05:50 Carbon Dioxide 17 mmol/L (22-30) L 09/27/17 05:50 Anion Gap 20 (10-20) 09/27/17 05:50 BUN 56 mg/dl (7-17) H 09/27/17 05:50 Creatinine 3.6 mg/dl (0.7-1.2) H 09/27/17 05:50 Est GFR ( Amer) 15 09/27/17 05:50 Est GFR (Non-Af Amer) 12 09/27/17 05:50 POC Glucose (mg/dL) 216 mg/dL (65-110) H 09/29/17 10:46 Random Glucose 227 mg/dL (65-105) H 09/27/17 05:50 Calcium 9.0 mg/dL (8.4-10.2) 09/27/17 05:50 Phosphorus 4.5 mg/dl (2.5-4.5) 09/25/17 19:43 Magnesium 1.9 MG/DL (1.6-2.3) 09/25/17 19:43 25-OH Vitamin D Total 12.9 NG/ML (30.0-100.0) L 09/25/17 19:43 Procalcitonin 0.17 NG/ML (0.19-0.49) L 09/23/17 09:24 PTH Intact Whole Molec 24 pg/mL (14-64) 09/25/17 19:43 Urine Color Maya (YELLOW) 09/24/17 07:40 Urine Clarity Turbid (Clear) 09/24/17 07:40 Urine pH 7.0 (5.0-8.0) 09/24/17 07:40 Ur Specific [place] 1.011 (1.003-1.030) 09/24/17 07:40 Urine Protein 100 mg/dL (NEGATIVE) 09/24/17 07:40 Urine Glucose (UA) 50 mg/dL (Normal) 09/24/17 07:40 Urine Ketones Negative mg/dL (NEGATIVE) 09/24/17 07:40 Urine Blood Moderate (NEGATIVE) 09/24/17 07:40 Urine Nitrate Negative (NEGATIVE) 09/24/17 07:40 Urine Bilirubin Negative (NEGATIVE) 09/24/17 07:40 Urine Urobilinogen 0.2-1.0 mg/dL (0.2-1.0) 09/24/17 07:40 Ur Leukocyte Esterase Mod Emilio/uL (Negative) 09/24/17 07:40 Urine RBC (Auto) 124 /hpf (0-3) H 09/24/17 07:40 Urine WBC Clumps (Auto) Many /hpf (NONE) H 09/24/17 07:40 Urine Microscopic WBC 4881 /hpf (0-5) H 09/24/17 07:40 Ur Squamous Epith Cells 5 /hpf (0-5) 09/24/17 07:40 Urine Bacteria Mod (<OCC) H 09/24/17 07:40 Urine Yeast (Budding) Occ /hpf (NEGATIVE) H 09/24/17 07:40 - Hospital Course Hospital Course: Hospital Course: 77 yo F, with PMH CKD, DM2, HTN,admitted to TCU for continued IV antibiotics and physical therapy, following admission to telemetry for sepsis (UTI 2/2 to retained stents vs C. diff), metabolic acidosis, electrolyte derangement, and acute on chronic kidney injury. Pt's c diff was treated to completion. As per ID , she was discharged on oral bactrim for a total of 6 days. Discharge medications: Continue home medications. Continue taking antibiotics as instructed. Discharge Exam - Head Exam Head Exam: NORMAL INSPECTION - Eye Exam Eye Exam: Normal appearance - ENT Exam ENT Exam: Mucous Membranes Moist - Respiratory Exam Respiratory Exam: Clear to PA & Lateral. absent: Rales, Wheezes - Cardiovascular Exam Cardiovascular Exam: REGULAR RHYTHM, +S1, +S2. absent: Systolic Murmur - GI/Abdominal Exam GI & Abdominal Exam: Normal Bowel Sounds. absent: Soft, Tenderness - Neurological Exam Neurological exam: Alert, Oriented x3 - Psychiatric Exam Psychiatric exam: Normal Affect Discharge Plan - Discharge Medications Prescriptions: Sulfamethoxazole/Trimethoprim [Bactrim DS Tab] 1 tab PO Q12 4 Days #8 tab - Follow Up Plan Condition: GOOD Disposition: HOME/ ROUTINE
== END 2017-09-29 15:50 | disposition home or self-care (01) | DRG 690 ==
LOC: H.TCU 19:34
PROVIDERS: ADMIT Family Medicine; ATTEND Family Medicine
PROC: 3E03329 Introduction of Other Anti-infective into Peripheral Vein, Percutaneous Approach (ICD-10-PCS; principal; 2017-09-20)
PROC: F07M6FZ Therapeutic Exercise Treatment of Musculoskeletal System - Whole Body using Assistive, Adaptive, Supportive or Protective Equipment (ICD-10-PCS; 2017-09-20)
PROC: F08Z4FZ Home Management Treatment using Assistive, Adaptive, Supportive or Protective Equipment (ICD-10-PCS; 2017-09-20)
DX: N39.0 Urinary tract infection, site not specified (principal); N17.9 Acute kidney failure, unspecified; A04.72 Enterocolitis due to Clostridium difficile, not specified as recurrent; E87.2 Acidosis; N18.4 Chronic kidney disease, stage 4 (severe); E11.22 Type 2 diabetes mellitus with diabetic chronic kidney disease; E11.65 Type 2 diabetes mellitus with hyperglycemia; D63.1 Anemia in chronic kidney disease; D50.9 Iron deficiency anemia, unspecified; Z79.4 Long term (current) use of insulin; Z87.01 Personal history of pneumonia (recurrent); Z90.710 Acquired absence of both cervix and uterus; F32.9 Major depressive disorder, single episode, unspecified; F41.9 Anxiety disorder, unspecified; M19.90 Unspecified osteoarthritis, unspecified site; R32 Unspecified urinary incontinence; R30.0 Dysuria; E78.00 Pure hypercholesterolemia, unspecified; E87.5 Hyperkalemia; I12.9 Hypertensive chronic kidney disease with stage 1 through stage 4 chronic kidney disease, or unspecified chronic kidney disease; J44.9 Chronic obstructive pulmonary disease, unspecified; N13.30 Unspecified hydronephrosis

== ENCOUNTER 2017-10-20 18:16 | Inpatient (IN) | payer MEDICARE, OTHER ==
[2017-10-20 18:16] VITALS: BMI 32.5
[2017-10-20] MEDS ORDERED: Sodium Chloride 0.9% 1,000 ML IV STA ×3 (18:38→22:04)
[2017-10-20] MEDS ORDERED: Albuterol-Ipratrop 3 mg / 0.5 (3 ml) UD INH STA (18:40)
[2017-10-20] MEDS ORDERED: Albuterol-Ipratrop 3 mg / 0.5 (3 ml) UD IH STA (18:40)
--- NOTE | 2017-10-20 18:40 | ED PDOC ---
HPI: Altered Mental Status Time Seen by Provider: 10/20/17 18:29 Chief Complaint (Nursing): Shortness Of Breath Chief Complaint (Provider): Shortness of breath, altered mental status History Per: Family History/Exam Limitations: Clinical Condition Onset/Duration Of Symptoms: Persistent (days) Current Symptoms Are (Timing): Still Present Additional Complaint(s): 77yo female, with history of hypertension, diabetes, COPD, chronic kidney disease (not on dialysis), brought to ER by EMS for evaluation of altered mental status and shortness of breath today. Patient accompanied by her son who states after patient was discharged form this facility 3 weeks ago, she has not left her bed. He reports she has been non-compliant with her medications for the past 3 weeks. He states her mental status has been persistently deteriorating and is the worst today. A full HPI and ROS is limited due to patient's clinical condition. Pt. was admitted recently for uti, high K, kidney failure and other etiologies. Past Medical History Reviewed: Historical Data, Nursing Documentation, Vital Signs Vital Signs: Last Vital Signs Temp Pulse 124 H 10/20/17 18:19 Resp 24 10/20/17 18:19 BP Pulse Ox 100 10/20/17 18:19 - Medical History PMH: Anxiety, Arthritis, COPD, Depression, Diabetes (type II), HTN, Hypercholesterolemia, Pneumonia, Chronic Kidney Disease Denies: HIV - Surgical History Surgical History: Tonsillectomy - Family History Family History: States: Unknown Family Hx - Living Arrangements Living Arrangements: With Family - Home Medications Home Medications: Ambulatory Orders Medication Instructions Recorded Aspirin [Ecotrin] 81 mg PO DAILY 09/14/17 Atorvastatin [Lipitor] 40 mg PO QPM 09/14/17 Ferrous Sulfate [Feosol] 325 mg PO DAILY 09/14/17 Glipizide [Glipizide ER] 10 mg PO BID 09/14/17 Memantine [Namenda] 5 mg PO DAILY 09/14/17 Multivitamin [Daily Evon] 1 tab PO DAILY 09/14/17 Repaglinide [Prandin] 2 mg PO TID 09/14/17 SITagliptin [Januvia] 25 mg PO DAILY 09/14/17 Valsartan [Diovan] 80 mg PO DAILY 09/14/17 Sulfamethoxazole/Trimethoprim 1 tab PO Q12 4 Days #8 tab 09/28/17 [Bactrim DS Tab] - Allergies Allergies/Adverse Reactions: Allergies Allergy/AdvReac Type Severity Reaction Status Date / Time No Known Allergies Allergy Verified 05/08/17 21:15 Review of Systems Review Of Systems: ROS cannot be obtained secondary to pt's inabilty to answer questions. Respiratory: Positive for: Shortness of Breath Gastrointestinal: Positive for: Vomiting, Abdominal Pain Neurological: Positive for: Altered Mental Status Physical Exam - Reviewed Nursing Documentation Reviewed: Yes Vital Signs Reviewed: Yes - Physical Exam Appears: Positive for: In Acute Distress (mild ) Head Exam: Positive for: ATRAUMATIC Skin: Positive for: Normal Color, Dry Eye Exam: Positive for: PERRL. Negative for: Periorbital swelling, Periorbital tenderness Neck: Positive for: Supple Cardiovascular/Chest: Positive for: Tachycardia Respiratory: Positive for: Decreased Breath Sounds (bilaterally), Other ( tachypneic). Negative for: Wheezing Gastrointestinal/Abdominal: Positive for: Soft. Negative for: Tenderness Back: Positive for: Other (sacral erythema) Extremity: Positive for: Other (patient moving all extremities by herself). Negative for: Tenderness Neurologic/Psych: Positive for: Alert (responding to verbal commands, able to open mouth and eyes upon command), Oriented (x2) - Laboratory Results Result Diagrams: 10/20/17 19:46 10/20/17 19:46 Interpretation Of Abn Labs: 25.7 wbc, lactate 5.7, bun and cr elevated, k elevated - ECG ECG: Positive for: Interpreted By Me, Viewed By Me Interpretation Of Abn EKG: afib O2 Sat by Pulse Oximetry: 100 (RA) Pulse Ox Interpretation: Normal - Radiology X-Ray: Interpreted by Me, Viewed By Me X-Ray Interpretation: No Acute Disease, Other (central line and et tube in place ) - CT Scan/US head Other Rad Studies (CT/US): Read By Radiologist Other Rad Interpretation: ct head no acute - Progress ED Course And Treament: 184: Central line will be placed due to hypotension, possible septic shock, iv access. Consent obtained from son. Pt. with hx of severe hyperkalemia. Will initiate tx considering hx and noncompliance of meds/current status. 1929: Pt. to be intubated as pt. remains altered and tachypneic. 2050: Clay advancing partially but no urine. Unable to advance fully so no urine collection. Staff saw purulent dc from urethra on initial clay attempt. Ultrasound done in ER to see bladder and is not distended. Levofed started as pressures low despite fluid tx. Dr. Chowdary for ICU aware and will admit to ICU. [facility] resident aware and will admt. Antibiotics started based on broad spectrum and possible urine source. ID Dr. Thomas pagesusan several times and cell phone. Pending call back. 2118: Will need CT head and abd/pelvis for further evaluation when pt. stable. Nephrology Dr Rosemarie reyes (he saw pt. on last visit). 2149: Spoke with ID. Cancel gent. Will add vanco, meropenem, and zithromax. 2156: Spoke with Dr. Garcia for nephro. Does not want stat dialysis at this time considering multiple factors and stability currently. Wants 1 more liter of fluids, repeat labs at midnight and a rosa isela put in for possible stat dialysis. Pt. has gotten 3 liters of fluid so far. 2226: Spoke with Dr. Curiel. Will consult to put in rosa isela. Dr. Chowdary to fu ct abd/pelvis. - Critical Care Total Time (In Min): 120 Documented Critical Care: Time excludes all time spent performint seperately billable procedures Medical Decision Making Medical Decision Making: Impression: Altered mental status, vomiting x 2 days Plan: -- ABG -- CT Head w/o contrast -- Labs -- Chest X-Ray -- Blood culture -- Urine culture -- Duoneb 3ml INH x 2 -- Solumedrol 125mg IVP -- IV Fluids Prior records reviewed, patient was admitted to this facility on 09/14/17 for acute renal failure, hyperkalemia, gastrointestinal infection, and severe sepsis Scribe Attestation: Documented by Penny Arzate acting as a scribe for Frank Wadsworth MD Provider Attestation: All medical record entries made by the Scribe were at my direction and personally dictated by me. I have reviewed the chart and agree that the record accurately reflects my personal performance of the history, physical exam, medical decision making, and the department course for this patient. I have also personally directed, reviewed, and agree with the discharge instructions and disposition. Procedures - Central Line Central Line Lumen: triple Central Line Procedure: betadine prep, sterile drapes applied, sterile dressing applied Central Line Postion: internal jugular (R) Anesthesia: Lidocaine cc's of anesthesia: 1 Complications: none Central Line Post Position: sutured, good blood return, position confirmed w/ CXR - Intubation Intubation Method: orotracheal Tube Size (cm): 7.5 Breath Sounds after Intubation: equal Intubation Complications: no complications Post Intubation Xray: Yes Progress/Xray Impression: sats improved to 100%. Disposition - Clinical Impression Clinical Impression: Septic shock, UTI (urinary tract infection), Afib, Hyperkalemia, Acute on chronic renal failure - Patient ED Disposition Is Patient to be Admitted: Yes Counseled Patient/Family Regarding: Studies Performed, Diagnosis - Disposition Disposition Time: 21:08 Condition: CRITICAL - Pt Status Changed To: Hospital Disposition Of: Inpatient - Admit Certification Admit to Inpatient:: After my assessment, the patient will require hospitalization for at least two midnights. This is because of the severity of symptoms shown, intensity of services needed, and/or the medical risk in this patient being treated as an outpatient. - POA Present On Arrival: Pressure Ulcer (sacral erythema)
[2017-10-20] MEDS ORDERED: Piperacillin/Tazobact 4.5 GM in Sodium Chloride 0.9% 100 ML IVPB STA (19:17)
[2017-10-20 19:20] LABS: ABG ALLEN TEST YES; ARTERIAL BLOOD GAS HCO3 0.3 mmol/L (21-28); ARTERIAL BLOOD GAS O2 SAT 100.6 % (95-98); ARTERIAL BLOOD GAS PCO2 13 mm/Hg (35-45); ARTERIAL BLOOD GAS PO2 199 mm/Hg (80-100); ARTERIAL BLOOD GAS TCO2 2.4 mmol/L (22-28)
[2017-10-20] MEDS ORDERED: Povidone Iodine Oint 10% Foilpak UD ONE (19:21)
[2017-10-20] MEDS ORDERED: Sodium Bicarbonate 7.5% (0.9 MEQ/ML) 50ML INJ IV STA (19:39)
[2017-10-20] MEDS ORDERED: Calcium Gluconate 4.65 mEq/10 ml Inj IV ONE (19:40)
[2017-10-20] MEDS ORDERED: Insulin Regular 100 units/ml IV STA (19:41)
[2017-10-20] MEDS ORDERED: Etomidate 20 mg/10ml Inj IV ONE (19:47)
[2017-10-20] MEDS ORDERED: Etomidate 20 mg/10ml Inj IV STA (19:57)
[2017-10-20 19:58] LABS: BASO % 0.1 % (0.0-2.0); EOS % 0.1 % (0.0-4.0); HEMOGLOBIN 11.1 g/dL (12.0-16.0); LYMPH # 1.9 K/uL (1.0-4.3); LYMPH % 7.3 % (20.0-40.0); MEAN CELL VOLUME 90.3 fl (81.0-99.0); MEAN CORPUSCULAR HEMOGLOBIN 26.5 pg (27.0-31.0); MEAN CORPUSCULAR HGB CONC 29.4 g/dL (33.0-37.0); MEAN PLATELET VOLUME 7.8 fl (7.2-11.7); MONO # 0.8 K/uL (0.0-0.8); MONO % 3.1 % (0.0-10.0); NEUT % 89.4 % (50.0-75.0); PLATELET COUNT 673 K/uL (130-400); RBC 4.18 Mil/uL (3.80-5.20); RED CELL DISTRIBUTION WIDTH 16.6 % (11.5-14.5); WHITE BLOOD COUNT 25.7 K/uL (4.8-10.8)
[2017-10-20 20:09] LABS: INR 1.1 (0.9-1.2); PARTIAL THROMBOPLASTIN TIME 21.5 Seconds (25.6-37.1); PROTHROMBIN TIME 12.3 Seconds (9.8-13.1)
[2017-10-20] MEDS ORDERED: Insulin Regular 100 units/ml ONE (20:10)
[2017-10-20 20:33] LABS: B-TYPE NATRIURETIC PEPTIDE 4650 pg/ml (0-900)
[2017-10-20] MEDS ORDERED: Gentamicin 80 mg/2mL Inj. IVPB STA (20:35)
[2017-10-20] MEDS ORDERED: Midazolam 2 MG/2 ML VIAL ONE ×2 (20:48→22:00)
[2017-10-20 20:57] LABS: ALBUMIN 3.4 g/dL (3.5-5.0); ALT/SGPT 21 U/L (9-52); AST/SGOT 23 U/L (14-36); BLOOD UREA NITROGEN 182 mg/dl (7-17); CALCIUM 8.4 mg/dL (8.4-10.2); GFR AFRICAN-AMERICAN 2; GFR NON-AFRICAN AMERICAN 2
[2017-10-20] MEDS ORDERED: Gentamicin 330 MG in Sodium Chloride 0.9% 250 ML IVPB SCH (21:00)
[2017-10-20] MEDS ORDERED: Midazolam 2 MG/2 ML VIAL IV STA ×2 (21:10→23:03)
--- NOTE | 2017-10-20 21:12 | CP.PCM.HP ---
History of Present Illness - History of Present Illness History of Present Illness: History mainly taken from prior medical records, and ER provider, and family due to patient's clinical condition. 77 y/o female with PMHx uncontrolled IDDM2, HTN, CKD4, Hydronephrosis s/p bilateral stenting, chronic kidney disease( no in Dialysis) who was brought to ER by EMS, accompanied by her family for evaluation of altered mental status. As per patient's son. patient has had AMS for the past 2-3 days, constant and worsening, associated with a several day history of moderate to severe abdominal pain associated with NBNB emesis, and diarrheas. In ED, patient found to be tachypneic with AMS and was intubated; also with hyperkalemia and severe metabolic acidosis; clay placement was attempted but resistance was met, some pus was seen by ER nurse during attempted placement. ROS unable to assess because patient's clinical condition. Noted that patient was admitted on 09/14/17 for C. diff associated diarrhea resulting in acute on chronic renal failure, acidosis, hyperkalemia, and UTI due to retained ureteral stents from 04/2017. Stents were replaced by urologist Dr. Valentine during prior admission. Then admitted to TCU on 09/21/17 for IV antibiotics and physical therapy. PMD: Osmany, pt denies any follow up since prior d/jen, Ashely (Uro)Rosemarie ( nephro) Psurghx: B/L Renal stenting (05/2017), tonsillectomy, left wrist ORIF ALL: NKDA LMP: >20 years ago SocialHx: denies ETOH/tobacco/drug abuse, lives at home in [place] with son FamilyHx: unknown family hx Next of Kin: son, Ede Reza, [phone] ER course: Code sepsis called by ER provider VS: hypotensive SBP<90, hypothermia, tachycardia PE:Mottle skin, CTA b/l to auscultation, tachycardia labs: leukocytosis, metabolic acidosis, hyperkalemia, elevated lactate Tx: Intubated on mechanical ventilation, ventilator setting in ER: A/C rate:14, FiO2 100, TV:450, PEEP 5 sod bicar, zosyn IV once, vanco IV once, meropenem, azithromycin, calcium gluconate, Present on Admission - Present on Admission Any Indicators Present on Admission: No History of DVT/PE: No History of Uncontrolled Diabetes: No Urinary Catheter: No Decubitus Ulcer Present: No Review of Systems - Review of Systems All systems: reviewed and no additional remarkable complaints except (ROS unable to assess because patient's clinical condition) Past Patient History - Infectious Disease Hx of Infectious Diseases: None - Past Medical History & Family History Past Medical History?: Yes - Past Social History Smoking Status: Never Smoked - CARDIAC Hx Hypercholesterolemia: Yes Hx Hypertension: Yes - PULMONARY Hx Chronic Obstructive Pulmonary Disease (COPD): Yes Hx Pneumonia: Yes - NEUROLOGICAL Hx Neurological Disorder: No - HEENT Hx HEENT Problems: No - RENAL Hx Chronic Kidney Disease: Yes - ENDOCRINE/METABOLIC Hx Endocrine Disorders: Yes Hx Diabetes Mellitus Type 2: Yes - HEMATOLOGICAL/ONCOLOGICAL Hx Human Immunodeficiency Virus (HIV): No - INTEGUMENTARY Hx Dermatological Problems: No - MUSCULOSKELETAL/RHEUMATOLOGICAL Hx Arthritis: Yes - GASTROINTESTINAL Hx Gastrointestinal Disorders: No - GENITOURINARY/GYNECOLOGICAL Hx Genitourinary Disorders: Yes Hx Incontinence: Yes - PSYCHIATRIC Hx Anxiety: Yes Hx Depression: Yes - SURGICAL HISTORY Hx Tonsillectomy: Yes - ANESTHESIA Hx Anesthesia: Yes Hx Anesthesia Reactions: No Hx Malignant Hyperthermia: No Meds Allergies/Adverse Reactions: Allergies Allergy/AdvReac Type Severity Reaction Status Date / Time No Known Allergies Allergy Verified 05/08/17 21:15 Physical Exam - ENT Exam ENT Exam: Mucous Membranes Dry - Respiratory Exam Respiratory Exam: Clear to Auscultation Bilateral, NORMAL BREATHING PATTERN. absent: Rales, Rhonchi, Wheezes - Cardiovascular Exam Cardiovascular Exam: Tachycardia, REGULAR RHYTHM, +S1, +S2 - GI/Abdominal Exam GI & Abdominal Exam: Normal Bowel Sounds, Soft. absent: Guarding, Rigid - Extremities Exam Extremities exam: Negative for: calf tenderness - Neurological Exam Additional comments: Intubated on mechanical ventilation Results - Vital Signs Recent Vital Signs: Last Vital Signs Temp Pulse 133 H 10/20/17 20:10 Resp 24 10/20/17 18:19 BP Pulse Ox 100 10/20/17 21:12 - Labs Result Diagrams: 10/20/17 19:46 10/20/17 19:46 Labs: Laboratory Results - last 24 hr 10/20/17 10/20/17 10/20/17 18:47 19:01 19:46 WBC RBC Hgb Hct MCV MCH MCHC RDW Plt Count MPV Neut % (Auto) Lymph % (Auto) [place] % (Auto) Eos % (Auto) Baso % (Auto) Neut # (Auto) Lymph # (Auto) [place] # (Auto) Eos # (Auto) Baso # (Auto) PT INR APTT pCO2 13 L* pO2 199 H HCO3 0.3 L* ABG pH 6.80 L* ABG Total CO2 2.4 L ABG O2 Saturation 100.6 H ABG Base Excess -31.5 L Arnoldo Test Yes ABG Potassium 7.2 H* A-a O2 Difference 498.0 Sodium 126.0 L 135 Chloride 93.0 L 98 Glucose 295 H Lactate 5.7 H* FiO2 100.0 Blood Gas Comments 100% mask Crit Value Called To Dr. sonam jeong Crit Value Called By Yumiko Garcia Value Read Back Y Blood Gas Notified Time 1918 Potassium 6.9 H* D Carbon Dioxide < 5 L* D Anion Gap 39 H BUN 182 H* D Creatinine 21.8 H* D Est GFR ( Amer) 2 Est GFR (Non-Af Amer) 2 POC Glucose (mg/dL) 218 H Random Glucose 264 H Calcium 8.4 Phosphorus 15.7 H Magnesium 2.9 H Total Bilirubin 0.5 AST 23 ALT 21 Alkaline Phosphatase 129 H D Troponin I 0.0810 NT-Pro-B Natriuret Pep 4650 H Total Protein 6.9 Albumin 3.4 L D Globulin 3.5 Albumin/Globulin Ratio 1.0 Arterial Blood Potassium 7.2 H* 10/20/17 10/20/17 10/20/17 19:46 19:46 20:12 WBC 25.7 H D RBC 4.18 Hgb 11.1 L Hct 37.8 MCV 90.3 D MCH 26.5 L MCHC 29.4 L RDW 16.6 H Plt Count 673 H D MPV 7.8 Neut % (Auto) 89.4 H Lymph % (Auto) 7.3 L [place] % (Auto) 3.1 Eos % (Auto) 0.1 Baso % (Auto) 0.1 Neut # (Auto) 23.0 H Lymph # (Auto) 1.9 [place] # (Auto) 0.8 Eos # (Auto) 0.0 Baso # (Auto) 0.0 PT 12.3 INR 1.1 APTT 21.5 L pCO2 pO2 HCO3 ABG pH ABG Total CO2 ABG O2 Saturation ABG Base Excess Arnoldo Test ABG Potassium A-a O2 Difference Sodium Chloride Glucose Lactate FiO2 Blood Gas Comments Crit Value Called To Crit Value Called By Crit Value Read Back Blood Gas Notified Time Potassium Carbon Dioxide Anion Gap BUN Creatinine Est GFR ( Amer) Est GFR (Non-Af Amer) POC Glucose (mg/dL) 184 H Random Glucose Calcium Phosphorus Magnesium Total Bilirubin AST ALT Alkaline Phosphatase Troponin I NT-Pro-B Natriuret Pep Total Protein Albumin Globulin Albumin/Globulin Ratio Arterial Blood Potassium 10/20/17 20:32 WBC RBC Hgb Hct MCV MCH MCHC RDW Plt Count MPV Neut % (Auto) Lymph % (Auto) [place] % (Auto) Eos % (Auto) Baso % (Auto) Neut # (Auto) Lymph # (Auto) [place] # (Auto) Eos # (Auto) Baso # (Auto) PT INR APTT pCO2 pO2 HCO3 ABG pH ABG Total CO2 ABG O2 Saturation ABG Base Excess Arnoldo Test ABG Potassium A-a O2 Difference Sodium Chloride Glucose Lactate FiO2 Blood Gas Comments Crit Value Called To Crit Value Called By Crit Value Read Back Blood Gas Notified Time Potassium Carbon Dioxide Anion Gap BUN Creatinine Est GFR ( Amer) Est GFR (Non-Af Amer) POC Glucose (mg/dL) 224 H Random Glucose Calcium Phosphorus Magnesium Total Bilirubin AST ALT Alkaline Phosphatase Troponin I NT-Pro-B Natriuret Pep Total Protein Albumin Globulin Albumin/Globulin Ratio Arterial Blood Potassium Assessment & Plan - Assessment and Plan (Free Text) Assessment: 77 y/o female with PMHx uncontrolled IDDM2, HTN, CKD4, Hydronephrosis s/p bilateral stenting, chronic kidney disease( no in Dialysis) admitted with septic shock. Plan: Septic shock -ICU unit -Hypotension, Hypothermic, tachycardic on admission -ON mechanical ventilation, ventilator setting in ER: A/C rate:14, FiO2 100, TV: 450, PEEP 5 -possible 2/2 UTI -F/U Blood culture -f/u urine culture -f/u ABG in am -f/u CBC, BMP in am -f/u CXR in am -On vasopressor support with Levophed -On Broad spectrum antibiotics: Vancomycin, Meropenem, Azithromycin -was not responding to fluid resuscitation in ER -elevated lactate on admission -leukocytosis 25.7 on admission Acute Kidney Injury -NINA on CKD -potassium 6.9 on admission -BUN/Cr: 182/21.8 -Dialysis cath for HD today -Nephrology on consult Dr. Garcia. Recommendations are appreciated -General surgery on consult for dialysis cath placement -consent to be obtained by surgery Metabolic Acidosis -most likely 2/2 NINA, and sepsis -PH: 6.80, with very low bicarb -On Broad spectrum antibiotics for sepsis -s/p sodium bicarbonate in ER -will receive dialysis today -f/u repeat ABG in am H/O Hydronephrosis s/p bilateral stenting -Urology on Consult. Dr. Valentine -some pus was seen by ER nurse during attempt of clay cath placement. Hypertension -Hold home BP meds for now -Hypotension 2/2 septic shock Diabetes Mellitus type 2 -hold home PO meds -accucheck -insulin coverage by protocol -hypoglycemic protocol DVT prophylaxis -Heparin SC - Date & Time Date: 10/20/17 Time: 21:45
[2017-10-20] MEDS ORDERED: Midazolam HCl 50 MG in Dextrose 5% In Water 90 ML IV ONE (21:28)
[2017-10-20] MEDS ORDERED: Azithromycin 500 MG in Sodium Chloride 0.9% 250 ML IVPB STA (21:52)
[2017-10-20 21:53] LABS: BANDS 5 % (0-2); LYMPHOCYTE 8 % (20-50); MONOCYTE 6 % (0-10); NEUTROPHIL 81 % (42-75); PLATELET ESTIMATE INCREASED (NORMAL); TOTAL CELLS COUNTED 100
[2017-10-20 21:54] LABS: ANISOCYTOSIS SLIGHT; BURR CELLS SLIGHT; HYPOCHROMIC SLIGHT; POIKILOCYTOSIS SLIGHT; TARGET CELLS SLIGHT; TOXIC GRANULATION PRESENT
[2017-10-20 21:55] LABS: LARGE PLATELETS PRESENT
[2017-10-20] MEDS ORDERED: Midazolam 2 MG/2 ML VIAL IV ONE (21:59)
--- NOTE | 2017-10-20 22:12 | CP.PCM.CON ---
History of Present Illness - History of Present Illness History of Present Illness: 77 yo F w/ pmh of htn, dm, CKD IV w/ bilateral chronic hydronephrosis and b/l ureteral stents (last changed last month); brought to ED today after family noted her to have altered mental status; nephrology being consulted for acute renal failure; Patient is s/p admission last month with NINA in the setting of C diff and UTI; was subsequently discharged to TCU before being discharged home; per family, she has been bedbound since discharge; overall PO intake has decreased; patient reportedly had some vomiting episodes and may have been having diarrhea per daughter; over the past day, her speech had become incomprehensible; In ED, patient found to be tachypneic with AMS and was intubated; also with hyperkalemia and severe metabolic acidosis; clay placement was attemtped but resistance was met, some pus was seen during attempted placement; Review of Systems - Review of Systems Systems not reviewed;Unavailable: Intubated Past Patient History - Infectious Disease Hx of Infectious Diseases: None - Past Medical History & Family History Past Medical History?: Yes Pertinent Family History: unable to obtain - Past Social History Smoking Status: Never Smoked - CARDIAC Hx Hypercholesterolemia: Yes Hx Hypertension: Yes - PULMONARY Hx Chronic Obstructive Pulmonary Disease (COPD): Yes Hx Pneumonia: Yes - NEUROLOGICAL Hx Neurological Disorder: No - HEENT Hx HEENT Problems: No - RENAL Hx Chronic Kidney Disease: Yes - ENDOCRINE/METABOLIC Hx Endocrine Disorders: Yes Hx Diabetes Mellitus Type 2: Yes - HEMATOLOGICAL/ONCOLOGICAL Hx Human Immunodeficiency Virus (HIV): No - INTEGUMENTARY Hx Dermatological Problems: No - MUSCULOSKELETAL/RHEUMATOLOGICAL Hx Arthritis: Yes - GASTROINTESTINAL Hx Gastrointestinal Disorders: No - GENITOURINARY/GYNECOLOGICAL Hx Genitourinary Disorders: Yes Hx Incontinence: Yes - PSYCHIATRIC Hx Anxiety: Yes Hx Depression: Yes - SURGICAL HISTORY Hx Tonsillectomy: Yes - ANESTHESIA Hx Anesthesia: Yes Hx Anesthesia Reactions: No Hx Malignant Hyperthermia: No Meds Allergies/Adverse Reactions: Allergies Allergy/AdvReac Type Severity Reaction Status Date / Time No Known Allergies Allergy Verified 05/08/17 21:15 - Medications Medications: Current Medications Norepinephrine Bitartrate 4 mg (/ Dextrose) 254 mls @ 15.24 mls/hr IV .[id number] [place]; 4 MCG/MIN PRN Reason: Protocol Last Admin: 10/20/17 20:50 Dose: 15.24 mls/hr Midazolam HCl 50 mg/ Dextrose 100 mls @ 4 mls/hr IV .Q24H ONE; 2 MG/HR PRN Reason: Protocol Stop: 10/21/17 21:27 Meropenem 1 gm/ Sodium (Chloride) 100 mls @ 100 mls/hr IVPB Q8 [place] PRN Reason: Protocol Vancomycin HCl 1 gm/ Sodium (Chloride) 250 mls @ 250 mls/hr IVPB STAT [place] PRN Reason: Protocol Azithromycin 500 mg/ Sodium (Chloride) 250 mls @ 125 mls/hr IVPB STAT STA Stop: 10/20/17 23:51 Sodium Chloride (Sodium Chloride 0.9%) 1,000 mls @ 1,000 mls/hr IV .Q1H STA Stop: 10/20/17 23:03 Physical Exam - Constitutional Appears: In Acute Distress - Eye Exam Eye Exam: absent: Scleral icterus - Respiratory Exam Respiratory Exam: Clear to Auscultation Bilateral. absent: Rales, Rhonchi, NORMAL BREATHING PATTERN - Cardiovascular Exam Cardiovascular Exam: Tachycardia, Irregular Rhythm. absent: Gallop, Rubs - GI/Abdominal Exam GI & Abdominal Exam: Soft. absent: Distended - Exam Exam: absent: Bladder Distension - Extremities Exam Additional comments: no leg edema; - Neurological Exam Neurological exam: Altered - Skin Skin Exam: Warm Additional comments: no cyanosis Results - Vital Signs Recent Vital Signs: Last Vital Signs Temp Pulse 152 H 10/20/17 21:35 Resp 14 10/20/17 21:35 BP 87/47 L 10/20/17 21:35 Pulse Ox 100 10/20/17 22:10 - Labs Result Diagrams: 10/20/17 19:46 10/20/17 19:46 Labs: Laboratory Results - last 24 hr 10/20/17 10/20/17 10/20/17 18:47 19:01 19:46 WBC RBC Hgb Hct MCV MCH MCHC RDW Plt Count MPV Neut % (Auto) Lymph % (Auto) [place] % (Auto) Eos % (Auto) Baso % (Auto) Neut # (Auto) Lymph # (Auto) [place] # (Auto) Eos # (Auto) Baso # (Auto) Neutrophils % (Manual) Band Neutrophils % Lymphocytes % (Manual) Monocytes % (Manual) Toxic Granulation Platelet Estimate Large Platelets Hypochromasia (manual) Poikilocytosis (manual Anisocytosis (manual) Target Cells [place] Cells PT INR APTT pCO2 13 L* pO2 199 H HCO3 0.3 L* ABG pH 6.80 L* ABG Total CO2 2.4 L ABG O2 Saturation 100.6 H ABG Base Excess -31.5 L Arnoldo Test Yes ABG Potassium 7.2 H* A-a O2 Difference 498.0 Sodium 126.0 L 135 Chloride 93.0 L 98 Glucose 295 H Lactate 5.7 H* FiO2 100.0 Blood Gas Comments 100% mask Crit Value Called To Dr. sonam jeong Crit Value Called By Yumiko Crit Value Read Back Y Blood Gas Notified Time 1918 Potassium 6.9 H* D Carbon Dioxide < 5 L* D Anion Gap 39 H BUN 182 H* D Creatinine 21.8 H* D Est GFR ( Amer) 2 Est GFR (Non-Af Amer) 2 POC Glucose (mg/dL) 218 H Random Glucose 264 H Calcium 8.4 Phosphorus 15.7 H Magnesium 2.9 H Total Bilirubin 0.5 AST 23 ALT 21 Alkaline Phosphatase 129 H D Troponin I 0.0810 NT-Pro-B Natriuret Pep 4650 H Total Protein 6.9 Albumin 3.4 L D Globulin 3.5 Albumin/Globulin Ratio 1.0 Arterial Blood Potassium 7.2 H* 10/20/17 10/20/17 10/20/17 19:46 19:46 20:12 WBC 25.7 H D RBC 4.18 Hgb 11.1 L Hct 37.8 MCV 90.3 D MCH 26.5 L MCHC 29.4 L RDW 16.6 H Plt Count 673 H D MPV 7.8 Neut % (Auto) 89.4 H Lymph % (Auto) 7.3 L [place] % (Auto) 3.1 Eos % (Auto) 0.1 Baso % (Auto) 0.1 Neut # (Auto) 23.0 H Lymph # (Auto) 1.9 [place] # (Auto) 0.8 Eos # (Auto) 0.0 Baso # (Auto) 0.0 Neutrophils % (Manual) 81 H Band Neutrophils % 5 H Lymphocytes % (Manual) 8 L Monocytes % (Manual) 6 Toxic Granulation Present Platelet Estimate Increased H Large Platelets Present Hypochromasia (manual) Slight Poikilocytosis (manual Slight Anisocytosis (manual) Slight Target Cells Slight [place] Cells Slight PT 12.3 INR 1.1 APTT 21.5 L pCO2 pO2 HCO3 ABG pH ABG Total CO2 ABG O2 Saturation ABG Base Excess Arnoldo Test ABG Potassium A-a O2 Difference Sodium Chloride Glucose Lactate FiO2 Blood Gas Comments Crit Value Called To Crit Value Called By Crit Value Read Back Blood Gas Notified Time Potassium Carbon Dioxide Anion Gap BUN Creatinine Est GFR ( Amer) Est GFR (Non-Af Amer) POC Glucose (mg/dL) 184 H Random Glucose Calcium Phosphorus Magnesium Total Bilirubin AST ALT Alkaline Phosphatase Troponin I NT-Pro-B Natriuret Pep Total Protein Albumin Globulin Albumin/Globulin Ratio Arterial Blood Potassium 10/20/17 20:32 WBC RBC Hgb Hct MCV MCH MCHC RDW Plt Count MPV Neut % (Auto) Lymph % (Auto) [place] % (Auto) Eos % (Auto) Baso % (Auto) Neut # (Auto) Lymph # (Auto) [place] # (Auto) Eos # (Auto) Baso # (Auto) Neutrophils % (Manual) Band Neutrophils % Lymphocytes % (Manual) Monocytes % (Manual) Toxic Granulation Platelet Estimate Large Platelets Hypochromasia (manual) Poikilocytosis (manual Anisocytosis (manual) Target Cells [place] Cells PT INR APTT pCO2 pO2 HCO3 ABG pH ABG Total CO2 ABG O2 Saturation ABG Base Excess Arnoldo Test ABG Potassium A-a O2 Difference Sodium Chloride Glucose Lactate FiO2 Blood Gas Comments Crit Value Called To Crit Value Called By Crit Value Read Back Blood Gas Notified Time Potassium Carbon Dioxide Anion Gap BUN Creatinine Est GFR ( Amer) Est GFR (Non-Af Amer) POC Glucose (mg/dL) 224 H Random Glucose Calcium Phosphorus Magnesium Total Bilirubin AST ALT Alkaline Phosphatase Troponin I NT-Pro-B Natriuret Pep Total Protein Albumin Globulin Albumin/Globulin Ratio Arterial Blood Potassium - Imaging and Cardiology Chest x-ray Status: Image reviewed by me Additional comment: lungs clear Assessment & Plan (1) Acute renal failure Assessment and Plan: NINA on CKD IV; anuric renal failure; with hyperkalemia and severe metabolic acidosis; no response to 3L IVF in ED; risk of precipitating seizure if initiated on HD with such severe uremia (dialysis dysequilibrium); however, with severe electrolyte abnormalities that are contributing to hemodynamic instability, we will initiate HD emergently; -2hr HD session tonight on 1K/40HCO3 dialysate; will give mannitol to prevent sudden osmotic changes; -may need additional HD session during the day Status: Acute (2) Metabolic acidosis Assessment and Plan: Severe; secondary to renal failure as well as component of lactic acidosis from sepsis/hypotension; should improve with HD; -starting bicarb drip (D5W w/ 150 meq sodium bicarb at 200 cc/hr) Status: Acute (3) Hyperkalemia Assessment and Plan: Due to renal failure; HD as above; Status: Acute (4) Septic shock Assessment and Plan: Currently on vasopressor support with levophed; started on broad spectrum antibiotics; suspected UTI in the setting of b/l ureteral stents; -re-dose vanco and meropenem after HD; -need urology consult for possible exchange of ureteral stents; Status: Acute - Assessment and Plan (Free Text) Assessment: Critical care time assessing patient and discussing with ED/CCM teams > 35 minutes;
[2017-10-20] MEDS ORDERED: Dextrose 5%/0.45% NS 1,000 ML IV SCH (22:45)
--- NOTE | 2017-10-20 22:47 | CP.PCM.CON ---
History of Present Illness - History of Present Illness History of Present Illness: CC: altered mental status 77 F PMH noncompliant, COPD, uncontrolled IDDM2, HTN, stage 4 CKD, hx hydronephrosis s/p bilateral stenting, presented to the ED by her son for moderate to severe AMS for the past 2-3 days, constant and worsening, associated with a several day history of moderate to severe abdominal pain associated with NBNB emesis. Patient was discharged appx 3 weeks ago from rehab following admission for CDIFF, hydrophrosis s/p stenting, NINA. According to the son, patient was essentially bedbound due to weakness and depression for 3 weeks. She had been refusing meds and eating as well. In ED, BP 52/31, HR 146, 94.4 T, RR 32-34, saturating 82 RA. WBC 25.7, BANDS 5, ABG 6.8/199/13/0.3 BE -31.5, LA 5.8 and 6.0, K 6.9, CO2 <5, BUN/SCr 182/21.8. Pt intubated, +central line, +dialysis catheter, received 3L NS, +Pus from clay cath insertion attempt, CT abd + acute sigmoid colitis/diverticulitis, and hydroureteronephrosis. Per ID -Vanc, Merrem, Azithromycin. ROS: unable to be obtained due to sedation, Versed Past Patient History - Infectious Disease Hx of Infectious Diseases: None - Past Medical History & Family History Past Medical History?: Yes - Past Social History Smoking Status: Never Smoked - CARDIAC Hx Hypercholesterolemia: Yes Hx Hypertension: Yes - PULMONARY Hx Chronic Obstructive Pulmonary Disease (COPD): Yes Hx Pneumonia: Yes - NEUROLOGICAL Hx Neurological Disorder: No - HEENT Hx HEENT Problems: No - RENAL Hx Chronic Kidney Disease: Yes - ENDOCRINE/METABOLIC Hx Endocrine Disorders: Yes Hx Diabetes Mellitus Type 2: Yes - HEMATOLOGICAL/ONCOLOGICAL Hx Human Immunodeficiency Virus (HIV): No - INTEGUMENTARY Hx Dermatological Problems: No - MUSCULOSKELETAL/RHEUMATOLOGICAL Hx Arthritis: Yes - GASTROINTESTINAL Hx Gastrointestinal Disorders: No - GENITOURINARY/GYNECOLOGICAL Hx Genitourinary Disorders: Yes Hx Incontinence: Yes - PSYCHIATRIC Hx Anxiety: Yes Hx Depression: Yes - SURGICAL HISTORY Hx Tonsillectomy: Yes - ANESTHESIA Hx Anesthesia: Yes Hx Anesthesia Reactions: No Hx Malignant Hyperthermia: No Meds Allergies/Adverse Reactions: Allergies Allergy/AdvReac Type Severity Reaction Status Date / Time No Known Allergies Allergy Verified 05/08/17 21:15 - Medications Medications: Current Medications Aspirin (Ecotrin) 81 mg PO DAILY [facility] Atorvastatin Calcium (Lipitor) 40 mg PO QPM [facility] Ferrous Sulfate (Feosol) 325 mg PO DAILY [facility] Glipizide (Glucotrol Xl) 10 mg PO BID [facility] Home Med (Multivitamin [Daily Evon]) 1 tab PO DAILY [facility] Norepinephrine Bitartrate 4 mg (/ Dextrose) 254 mls @ 15.24 mls/hr IV .[id number] [facility]; 4 MCG/MIN PRN Reason: Protocol Last Admin: 10/20/17 20:50 Dose: 15.24 mls/hr Meropenem 1 gm/ Sodium (Chloride) 100 mls @ 100 mls/hr IVPB Q8 [facility] PRN Reason: Protocol Vancomycin HCl 1 gm/ Sodium (Chloride) 250 mls @ 250 mls/hr IVPB STAT [facility] PRN Reason: Protocol Azithromycin 500 mg/ Sodium (Chloride) 250 mls @ 125 mls/hr IVPB STAT [facility] Stop: 10/20/17 23:51 Sodium Chloride (Sodium Chloride 0.9%) 1,000 mls @ 1,000 mls/hr IV .Q1H [facility] Stop: 10/20/17 23:03 Midazolam HCl 50 mg/ Sodium (Chloride) 100 mls @ 4 mls/hr IV .Q24H [facility]; 2 MG/HR PRN Reason: Protocol Stop: 10/21/17 22:14 Sodium Bicarbonate 150 meq/ (Dextrose) 1,150 mls @ 200 mls/hr IV .Q5H45M [facility] Stop: 10/21/17 22:33 Vancomycin HCl 1 gm/ Sodium (Chloride) 250 mls @ 166.667 mls/hr IVPB DAILY [facility] PRN Reason: Protocol Azithromycin 500 mg/ Sodium (Chloride) 250 mls @ 250 mls/hr IVPB DAILY [facility] PRN Reason: Protocol Dextrose/Sodium Chloride (Dextrose 5%/0.45% Ns 1000 Ml) 1,000 mls @ 125 mls/hr IV .Q8H [facility] Stop: 10/21/17 22:44 Insulin Human Lispro (Humalog) 0 units SC ACHS [facility] PRN Reason: Protocol Memantine (Namenda) 5 mg PO DAILY [facility] Repaglinide (Prandin) 2 mg PO TID [facility] Sitagliptin Phosphate (Januvia) 25 mg PO DAILY [facility] Valsartan (Diovan) 80 mg PO DAILY [facility] Physical Exam - Constitutional Appears: Unkempt Additional comments: SEDATED, INTUBATED - Head Exam Head Exam: ATRAUMATIC, NORMOCEPHALIC - Eye Exam Eye Exam: EOMI, Normal appearance - ENT Exam ENT Exam: Mucous Membranes Dry, Normal Oropharynx - Neck Exam Neck exam: Positive for: Normal Inspection. Negative for: Lymphadenopathy - Respiratory Exam Respiratory Exam: Clear to Auscultation Bilateral, NORMAL BREATHING PATTERN - Cardiovascular Exam Cardiovascular Exam: Tachycardia, +S1, +S2 - GI/Abdominal Exam GI & Abdominal Exam: Normal Bowel Sounds, Soft. absent: Mass, Tenderness - Extremities Exam Extremities exam: Positive for: normal capillary refill, pedal pulses present - Back Exam Back exam: NORMAL INSPECTION. absent: rash noted - Neurological Exam Additional comments: SEDATED AND INTUBATED. REFLEXES INTACT - Psychiatric Exam Additional comments: SEDATED VERSED - Skin Skin Exam: Dry, Warm Results - Vital Signs Recent Vital Signs: Last Vital Signs Temp Pulse 152 H 10/20/17 21:35 Resp 14 10/20/17 21:35 BP 87/47 L 10/20/17 21:35 Pulse Ox 100 10/20/17 22:31 - Labs Result Diagrams: 10/20/17 19:46 10/20/17 19:46 Labs: Laboratory Results - last 24 hr 10/20/17 10/20/17 10/20/17 18:47 19:01 19:46 WBC RBC Hgb Hct MCV MCH MCHC RDW Plt Count MPV Neut % (Auto) Lymph % (Auto) [place] % (Auto) Eos % (Auto) Baso % (Auto) Neut # (Auto) Lymph # (Auto) [place] # (Auto) Eos # (Auto) Baso # (Auto) Neutrophils % (Manual) Band Neutrophils % Lymphocytes % (Manual) Monocytes % (Manual) Toxic Granulation Platelet Estimate Large Platelets Hypochromasia (manual) Poikilocytosis (manual Anisocytosis (manual) Target Cells Colette Cells PT INR APTT pCO2 13 L* pO2 199 H HCO3 0.3 L* ABG pH 6.80 L* ABG Total CO2 2.4 L ABG O2 Saturation 100.6 H ABG Base Excess -31.5 L Arnoldo Test Yes ABG Potassium 7.2 H* A-a O2 Difference 498.0 Sodium 126.0 L 135 Chloride 93.0 L 98 Glucose 295 H Lactate 5.7 H* FiO2 100.0 Blood Gas Comments 100% mask Crit Value Called To Dr. sonam jeong Crit Value Called By Yumiko Crit Value Read Back Y Blood Gas Notified Time 1918 Potassium 6.9 H* D Carbon Dioxide < 5 L* D Anion Gap 39 H BUN 182 H* D Creatinine 21.8 H* D Est GFR ( Amer) 2 Est GFR (Non-Af Amer) 2 POC Glucose (mg/dL) 218 H Random Glucose 264 H Calcium 8.4 Phosphorus 15.7 H Magnesium 2.9 H Total Bilirubin 0.5 AST 23 ALT 21 Alkaline Phosphatase 129 H D Troponin I 0.0810 NT-Pro-B Natriuret Pep 4650 H Total Protein 6.9 Albumin 3.4 L D Globulin 3.5 Albumin/Globulin Ratio 1.0 Arterial Blood Potassium 7.2 H* 10/20/17 10/20/17 10/20/17 19:46 19:46 20:12 WBC 25.7 H D RBC 4.18 Hgb 11.1 L Hct 37.8 MCV 90.3 D MCH 26.5 L MCHC 29.4 L RDW 16.6 H Plt Count 673 H D MPV 7.8 Neut % (Auto) 89.4 H Lymph % (Auto) 7.3 L [place] % (Auto) 3.1 Eos % (Auto) 0.1 Baso % (Auto) 0.1 Neut # (Auto) 23.0 H Lymph # (Auto) 1.9 [place] # (Auto) 0.8 Eos # (Auto) 0.0 Baso # (Auto) 0.0 Neutrophils % (Manual) 81 H Band Neutrophils % 5 H Lymphocytes % (Manual) 8 L Monocytes % (Manual) 6 Toxic Granulation Present Platelet Estimate Increased H Large Platelets Present Hypochromasia (manual) Slight Poikilocytosis (manual Slight Anisocytosis (manual) Slight Target Cells Slight [place] Cells Slight PT 12.3 INR 1.1 APTT 21.5 L pCO2 pO2 HCO3 ABG pH ABG Total CO2 ABG O2 Saturation ABG Base Excess Arnoldo Test ABG Potassium A-a O2 Difference Sodium Chloride Glucose Lactate FiO2 Blood Gas Comments Crit Value Called To Crit Value Called By Crit Value Read Back Blood Gas Notified Time Potassium Carbon Dioxide Anion Gap BUN Creatinine Est GFR ( Amer) Est GFR (Non-Af Amer) POC Glucose (mg/dL) 184 H Random Glucose Calcium Phosphorus Magnesium Total Bilirubin AST ALT Alkaline Phosphatase Troponin I NT-Pro-B Natriuret Pep Total Protein Albumin Globulin Albumin/Globulin Ratio Arterial Blood Potassium 10/20/17 20:32 WBC RBC Hgb Hct MCV MCH MCHC RDW Plt Count MPV Neut % (Auto) Lymph % (Auto) [place] % (Auto) Eos % (Auto) Baso % (Auto) Neut # (Auto) Lymph # (Auto) [place] # (Auto) Eos # (Auto) Baso # (Auto) Neutrophils % (Manual) Band Neutrophils % Lymphocytes % (Manual) Monocytes % (Manual) Toxic Granulation Platelet Estimate Large Platelets Hypochromasia (manual) Poikilocytosis (manual Anisocytosis (manual) Target Cells [place]lette Cells PT INR APTT pCO2 pO2 HCO3 ABG pH ABG Total CO2 ABG O2 Saturation ABG Base Excess Arnoldo Test ABG Potassium A-a O2 Difference Sodium Chloride Glucose Lactate FiO2 Blood Gas Comments Crit Value Called To Crit Value Called By Crit Value Read Back Blood Gas Notified Time Potassium Carbon Dioxide Anion Gap BUN Creatinine Est GFR ( Amer) Est GFR (Non-Af Amer) POC Glucose (mg/dL) 224 H Random Glucose Calcium Phosphorus Magnesium Total Bilirubin AST ALT Alkaline Phosphatase Troponin I NT-Pro-B Natriuret Pep Total Protein Albumin Globulin Albumin/Globulin Ratio Arterial Blood Potassium Assessment & Plan - Assessment and Plan (Free Text) Plan: 77 F PMH noncompliant, COPD, uncontrolled IDDM2, HTN, stage 4 CKD, hx hydronephrosis s/p bilateral stenting, presented to the ED by her son for moderate to severe AMS for the past 2-3 days, constant and worsening, associated with a several day history of moderate to severe abdominal pain associated with NBNB emesis. Patient was discharged appx 3 weeks ago from rehab following admission for CDIFF, hydrophrosis s/p stenting, NINA. According to the son, patient was essentially bedbound due to weakness and depression for 3 weeks. She had been refusing meds and eating as well. In ED, BP 52/31, HR 146, 94.4 T, RR 32-34, saturating 82 RA. WBC 25.7, BANDS 5, ABG 6.8/199/13/0.3 BE -31.5, LA 5.8 and 6.0, K 6.9, CO2 <5, BUN/SCr 182/21.8. Pt intubated, +central line, +dialysis catheter, received 3L NS, +Pus from clay cath insertion attempt, CT abd + acute sigmoid colitis/diverticulitis, and hydroureteronephrosis. Per ID -Vanc, Merrem, Azithromycin. SEPTIC SHOCK 2/2 LIKELY UTI AND ACUTE COLITIS/DIVERTICULITIS ACUTE HYPOXIC RESPIRATORY FAILURE, intubated HAGMA/LACTIC ACIDOSIS HYPERKALEMIA OBSTRUCTIVE UROPATHY, HYDROURETERONEPHROSIS w STENTS in place AOCKD - pt intubated, sedated on Versed - on Levophed 20 mcg at present. - STAT HD this evening - on bicarb drip and Mannitol per Nephro - Per ID Vanc/Merrem/Azithromycin - Urology Consult Dr. Valentine for obstructive uropathy and hydroureteronephrosis. unable to place clay after multiple attempts by nurses, surgical residents, ED physician. Although with initial placement, +pus from attempt. - accuchecks and ISS for DM - Heparin 5000 q8 for VTE ppx
--- NOTE | 2017-10-20 23:01 | CT ---
EXAM: CT Head Without Intravenous Contrast CLINICAL HISTORY: 77 years old, female; Pain; Headache; Headache not specified TECHNIQUE: Axial computed tomography images of the head/brain without intravenous contrast. All CT scans at this facility use one or more dose reduction techniques, viz.: automated exposure control; ma/kV adjustment per patient size (including targeted exams where dose is matched to indication; i.e. head); or iterative reconstruction technique. Coronal and sagittal reformatted images were created and reviewed. COMPARISON: No relevant prior studies available. FINDINGS: Brain: There is mild diffuse cerebral atrophy present, consistent with this patient's age. There is mild diffuse heterogeneity of the white matter attenuation, consistent with chronic white matter ischemic changes. No hemorrhage. Ventricles: The ventricular system demonstrates mild diffuse compensatory enlargement. Bones/joints: Unremarkable. No acute fracture. Soft tissues: Unremarkable. Sinuses: Unremarkable as visualized. No acute sinusitis. Mastoid air cells: Unremarkable as visualized. No mastoid effusion. IMPRESSION: Age-related atrophy and chronic white matter ischemic changes, with no evidence of an acute intracranial abnormality.
[2017-10-20] MEDS ORDERED: Propofol 10 mg/ml 0 MG/0 ML VIAL ONE (23:05)
--- NOTE | 2017-10-20 23:27 | CT ---
EXAM: CT Abdomen and Pelvis Without Intravenous Contrast CLINICAL HISTORY: 77 years old, female; Screening exam; Other: R/O stones; Additional info: R/O stone TECHNIQUE: Axial computed tomography images of the abdomen and pelvis without intravenous contrast. All CT scans at this facility use one or more dose reduction techniques, viz.: automated exposure control; ma/kV adjustment per patient size (including targeted exams where dose is matched to indication; i.e. head); or iterative reconstruction technique. Coronal and sagittal reformatted images were created and reviewed. COMPARISON: CT - ABD PELVIS W/O PO OR IV CONT 2017-09-14 21:19 FINDINGS: Artifacts: Motion artifact does moderately limit the sensitivity of this examination. Lung bases: 7 mm nodular density in the left lung base, unchanged. No consolidation. ABDOMEN: Liver: The liver is within normal limits for this noncontrast study. Gallbladder and bile ducts: Unremarkable. No calcified stones. No ductal dilation. Pancreas: Unremarkable. No ductal dilation. Spleen: Unremarkable. No splenomegaly. Adrenals: Unremarkable. No mass. Kidneys and ureters: The kidneys are markedly limited by motion. Bilaterally ureteral stents are present. Persistent hydronephrosis and hydroureter. Stomach and bowel: Moderate diverticulosis is present in the sigmoid and descending colon. The sigmoid colon is thickwalled with adjacent inflammatory stranding suggesting acute colitis/diverticulitis. The cecum is moderately distended with air measuring up to 10.6 cm. Appendix: The appendix is mildly prominent measuring 7 mm without adjacent inflammatory stranding to suggest acute appendicitis. PELVIS: Bladder: Decompressed. Reproductive: Hysterectomy. ABDOMEN and PELVIS: Intraperitoneal space: Unremarkable. No free air. No significant fluid collection. Bones/joints: There is a cystic mass in the right pelvis measuring 4.6 x 4.5 cm, unchanged. No dislocation. Soft tissues: Unremarkable. Vasculature: The aorta demonstrates moderate atherosclerotic calcification. No abdominal aortic aneurysm. Lymph nodes: Unremarkable. No enlarged lymph nodes. IMPRESSION: Diverticulosis. Acute sigmoid colitis/diverticulitis. No perforation or abscess. Bilateral hydroureteronephrosis with ureteral stents in place. Stable right adnexal cyst.
--- NOTE | 2017-10-21 00:04 | PCM.PROC ---
Procedures Attestation:: I certify that I have explained the specified Operation(s) or Procedure(s), risks, benefits and reasonable alternatives to the Patient and/or other person responsible. The opportunity was given to ask questions and all questions answered - Central Line Placement Left Femoral Hemodialysis Access Aseptic technique was employed throughout the procedure: Full sterile barriers ( mask, hair cover, sterile gown, sterile gloves), Full body sterile drape, Chloraprep Antiseptic: 2 minute prep for Femoral CVP Time Out Performed: Yes Pt. Placed on Pulse Ox Monitor: Yes Central Line Prep: Chlorhexidine-Alcohol Combination Local Anesthesia Used: Lidocaine 1% Amount of Anesthesia Used (mls): 3 Ultrasound Used for Placement: Yes Central Line Lumen Inserted: double Central Line Length: 30 cm Post Procedure: Sutured in Place, Good Blood Return, All Ports Aspirated, Flushed, Capped, Sterile Dressing Applied Secured by: Suture Post procedure dressing: Clear vapor permeable, Chlorhexidine disc (Biopatch) Post Procedure X-Ray: No Patient Tolerated Procedure: Well Immediate Complications: None
[2017-10-21] MEDS ORDERED: Glucagon Recombinant 1 mg Inj IM PRN ×2 (00:29→11:45)
[2017-10-21] MEDS ORDERED: Dextrose 50% SYRINGE Inj (50 ml) IV PRN ×2 (00:29→11:45)
[2017-10-21] MEDS ORDERED: Metoprolol 1 mg/ml Inj IVP ONE (00:29)
[2017-10-21] MEDS: Sodium Bicarbonate 8.4% 150 MEQ in Dextrose 5% In Water 1,000 ML IV SCH ×3 (00:30→12:27)
[2017-10-21 00:42] LABS: VENOUS BLOOD GAS PCO2 24 mmHg (40-60); VENOUS BLOOD GAS PO2 256 mm/Hg (30-55); VENOUS BLOOD PH < 6.80 (7.32-7.43)
[2017-10-21] MEDS ORDERED: Mannitol 12.5 gm/50 ml Inj IV SCH ×2 (00:45→15:15)
[2017-10-21 00:48] LABS: ABG ALLEN TEST YES; ARTERIAL BLOOD GAS HCO3 1.3 mmol/L (21-28); ARTERIAL BLOOD GAS O2 SAT 100.2 % (95-98); ARTERIAL BLOOD GAS PCO2 20 mm/Hg (35-45); ARTERIAL BLOOD GAS PO2 646 mm/Hg (80-100); ARTERIAL BLOOD GAS TCO2 3.7 mmol/L (22-28)
[2017-10-21] MEDS: Midazolam 5 MG/ML 50 MG in Sodium Chloride 0.9% 90 ML IV ONE ×3 (01:12→22:42)
[2017-10-21] MEDS ORDERED: Sodium Bicarbonate 7.5% (0.9 MEQ/ML) 50ML INJ IV ONE ×2 (01:14→01:16)
[2017-10-21 05:48] LABS: BASO % 0.1 % (0.0-2.0); EOS # 0.1 K/uL (0.0-0.7); EOS % 0.3 % (0.0-4.0); HEMOGLOBIN 9.9 g/dL (12.0-16.0); LYMPH # 0.3 K/uL (1.0-4.3); LYMPH % 1.3 % (20.0-40.0); MEAN CORPUSCULAR HEMOGLOBIN 26.7 pg (27.0-31.0); MEAN CORPUSCULAR HGB CONC 30.8 g/dL (33.0-37.0); MEAN PLATELET VOLUME 7.9 fl (7.2-11.7); MONO # 0.1 K/uL (0.0-0.8); MONO % 0.6 % (0.0-10.0); NEUT # 22.7 K/uL (1.8-7.0); NEUT % 97.7 % (50.0-75.0); RBC 3.71 Mil/uL (3.80-5.20); WHITE BLOOD COUNT 23.3 K/uL (4.8-10.8)
[2017-10-21 05:57] LABS: TROPONIN I 0.104 ng/mL (0.00-0.120)
[2017-10-21 06:14] LABS: CALCIUM 7.1 mg/dL (8.4-10.2)
[2017-10-21] MEDS: Meropenem 1 GM in Sodium Chloride 0.9% 100 ML IVPB SCH ×2 (06:14→08:49)
[2017-10-21 06:30] LABS: PLATELET COUNT 536 K/uL (130-400)
[2017-10-21 06:31] LABS: MEAN CELL VOLUME 86.5 fl (81.0-99.0)
[2017-10-21] MEDS ORDERED: Insulin Regular 100 units/ml SC ONE (07:14)
[2017-10-21] MEDS ORDERED: Insulin Lispro (humaLOG) 100 Units/ml Inj SC SCH (07:30)
[2017-10-21 07:46] LABS: ANISOCYTOSIS SLIGHT; LYMPHOCYTE 1 % (20-50); NEUTROPHIL 99 % (42-75); POIKILOCYTOSIS SLIGHT; TOTAL CELLS COUNTED 100
[2017-10-21 07:47] LABS: HYPOCHROMIC SLIGHT
[2017-10-21 07:48] LABS: OVALOCYTES SLIGHT; PLATELET CLUMPS PRESENT; PLATELET ESTIMATE INCREASED (NORMAL); TEARDROP CELLS SLIGHT
--- NOTE | 2017-10-21 08:13 | RAD ---
HISTORY: Sepsis Patient COMPARISON: [id number] FINDINGS: LUNGS: No active pulmonary disease. PLEURA: No significant pleural effusion identified, no pneumothorax apparent. CARDIOVASCULAR: Normal. OSSEOUS STRUCTURES: No significant abnormalities. VISUALIZED UPPER ABDOMEN: Normal. OTHER FINDINGS: ETT above the justo. IMPRESSION: New ETT above the justo.
--- NOTE | 2017-10-21 08:26 | RAD ---
HISTORY: endotracheal tube/mechanical ventilation COMPARISON: 10/20/2017 FINDINGS: LUNGS: No active pulmonary disease. PLEURA: No significant pleural effusion identified, no pneumothorax apparent. CARDIOVASCULAR: Normal. OSSEOUS STRUCTURES: No significant abnormalities. VISUALIZED UPPER ABDOMEN: Normal. OTHER FINDINGS: ETT above the justo. NG tube in the stomach. IMPRESSION: ETT above the justo. NG tube in the stomach. Otherwise no change.
--- NOTE | 2017-10-21 08:38 | CARD ---
APPROVED REPORT EKG Measurement Heart [id number] <Conclusion> Atrial flutter with variable AV block Left axis deviation Septal infarct, age undetermined Abnormal ECG
[2017-10-21] MEDS: Azithromycin 500 MG in Sodium Chloride 0.9% 250 ML IVPB SCH (08:50)
[2017-10-21] MEDS ORDERED: Albumin Human 25% (12.5 gm/50 ml) IV ONE (08:59)
[2017-10-21] MEDS ORDERED: Patient's Own Med (Multivitamin [Daily Vite] 1 TAB) PO SCH (09:00)
[2017-10-21] MEDS ORDERED: GlipiZIDE 10 mg SR Tab PO SCH (09:00)
[2017-10-21] MEDS ORDERED: Multivitamin With Minerals Tab PO SCH (09:00)
[2017-10-21 10:21] LABS: ABG ALLEN TEST YES; ARTERIAL BLOOD GAS HCO3 14.3 mmol/L (21-28); ARTERIAL BLOOD GAS HEMOGLOBIN 9.2 g/dL (11.7-17.4); ARTERIAL BLOOD GAS O2 CAPACITY 13.4 mL/dL (16-24); ARTERIAL BLOOD GAS O2 CONTENT 13.3 ML/dL (15-23); ARTERIAL BLOOD GAS O2 SAT 99.5 % (95-98); ARTERIAL BLOOD GAS PCO2 21 mm/Hg (35-45); ARTERIAL BLOOD GAS PH 7.32 (7.35-7.45); ARTERIAL BLOOD GAS PO2 250 mm/Hg (80-100); ARTERIAL BLOOD GAS TCO2 11.4 mmol/L (22-28)
--- NOTE | 2017-10-21 10:21 | CP.PCM.PN ---
Subjective - Date & Time of Evaluation Date of Evaluation: 10/21/17 Time of Evaluation: 10:20 - Subjective Subjective: admitted overnight, emergent HD with toxins filtered and no fluid able to be removed 2/2 cath. Sedation, Intubated, nonverbal. No Adams in. Objective - Vital Signs/Intake and Output Vital Signs (last 24 hours): Temp Pulse Resp BP Pulse Ox 99.6 F 114 H 28 H 88/50 L 100 10/21/17 08:00 10/21/17 09:52 10/21/17 09:00 10/21/17 09:52 10/21/17 09:00 Intake and Output: 10/21/17 10/21/17 06:59 18:59 Intake Total 2340 600 Balance 2340 600 - Medications Medications: Current Medications Aspirin (Ecotrin) 81 mg PO DAILY [facility] Last Admin: 10/21/17 08:49 Dose: 81 mg Atorvastatin Calcium (Lipitor) 40 mg PO QPM [facility] Dextrose (Dextrose 50% Inj) 0 ml IV STAT PRN; Protocol PRN Reason: Hypoglycemia Protocol Dextrose (Glutose 15) 0 gm PO ONCE PRN; Protocol PRN Reason: Hypoglycemia Protocol Glucagon (Glucagen Diagnostic Kit) 0 mg IM STAT PRN; Protocol PRN Reason: Hypoglycemia Protocol Heparin Sodium (Porcine) (Heparin) 5,000 units SC Q8 [facility] PRN Reason: Protocol Last Admin: 10/21/17 08:51 Dose: 5,000 units Norepinephrine Bitartrate 4 mg (/ Dextrose) 254 mls @ 15.24 mls/hr IV .[id number] [facility]; 4 MCG/MIN PRN Reason: Protocol Last Admin: 10/21/17 09:50 Dose: 25 mcg/min, 95.25 mls/hr Vancomycin HCl 1 gm/ Sodium (Chloride) 250 mls @ 250 mls/hr IVPB STAT [facility] PRN Reason: Protocol Midazolam HCl 50 mg/ Sodium (Chloride) 100 mls @ 4 mls/hr IV .Q24H [facility]; 2 MG/HR PRN Reason: Protocol Stop: 10/21/17 22:14 Last Admin: 10/20/17 23:00 Dose: 4 mls/hr Sodium Bicarbonate 150 meq/ (Dextrose) 1,150 mls @ 200 mls/hr IV .Q5H45M [facility] Stop: 10/21/17 22:33 Last Admin: 10/21/17 06:55 Dose: 200 mls/hr Vancomycin HCl 1 gm/ Sodium (Chloride) 250 mls @ 166.667 mls/hr IVPB DAILY [facility] PRN Reason: Protocol Last Admin: 10/21/17 08:50 Dose: 166.667 mls/hr Azithromycin 500 mg/ Sodium (Chloride) 250 mls @ 250 mls/hr IVPB DAILY [facility] PRN Reason: Protocol Last Admin: 10/21/17 08:50 Dose: 250 mls/hr Midazolam HCl 50 mg/ Sodium (Chloride) 100 mls @ 4 mls/hr IV .Q24H [facility]; 2 MG/HR PRN Reason: Protocol Stop: 10/21/17 23:02 Last Admin: 10/21/17 00:00 Dose: Not Given Phenylephrine HCl 10 mg/ (Sodium Chloride) 251 mls @ 30.12 mls/hr IV .Q8H20M [facility]; 20 MCG/MIN PRN Reason: Protocol Stop: 10/22/17 08:42 Last Admin: 10/21/17 09:52 Dose: 20 mcg/min, 30.12 mls/hr Metronidazole (Flagyl 500mg/100ml Ns) 100 mls @ 100 mls/hr IVPB Q8 [facility] PRN Reason: Protocol Meropenem 0.5 gm/ Sodium (Chloride) 100 mls @ 100 mls/hr IVPB Q8 [facility] PRN Reason: Protocol Insulin Human Lispro (Humalog) 0 units SC ACHS [facility] PRN Reason: Protocol Mannitol (Mannitol) 12.5 gm IV Q15MIN [facility] Stop: 10/24/17 00:46 - Labs Labs: 10/21/17 04:18 10/21/17 04:18 PT 12.3 Seconds (9.8-13.1) 10/20/17 19:46 INR 1.1 (0.9-1.2) 10/20/17 19:46 APTT 33.2 Seconds (25.6-37.1) D 10/21/17 04:18 - Constitutional Appears: No Acute Distress, Other (intubated) - Head Exam Head Exam: ATRAUMATIC, NORMAL INSPECTION - Eye Exam Additional comments: no eye opening - ENT Exam ENT Exam: Mucous Membranes Moist - Neck Exam Neck Exam: Normal Inspection - Respiratory Exam Respiratory Exam: Clear to Ausculation Bilateral - Cardiovascular Exam Cardiovascular Exam: REGULAR RHYTHM - GI/Abdominal Exam GI & Abdominal Exam: Soft - Neurological Exam Neurological Exam: absent: Alert, Awake, Oriented x3 - Skin Skin Exam: Dry Assessment and Plan - Assessment and Plan (Free Text) Assessment: Assessment: 77yo F with PMHx uncontrolled IDDM2, HTN, CKD4, Hydronephrosis s/p bilateral stenting, chronic kidney disease( no in Dialysis) admitted with septic shock. Plan: c/w IV abx, pressor, ventilator. Will likely need HD cath repositioned/ changed and HD today. Prognosis guarded. 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 Recommendations are appreciated -On vasopressor support -On Broad spectrum antibiotics: Vancomycin, Meropenem, Azithromycin Acute Kidney Injury on CKD -improving BUN/Cr -Nephrology on consult Dr. Garcia. Recommendations are appreciated -General surgery on consult for dialysis cath placement. will likely need new HD cath HAGMA -sodium bicarbonate -s/p HD H/O Hydronephrosis s/p bilateral stenting -Urology on Consult. Dr. Valentine. Recommendations are appreciated -bladder scan Diverticulitis -started flagyl -General surgery on consult Hypertension -Hold home BP meds for now 2/2 septic shock Diabetes Mellitus type 2 -hold home PO meds -accucheck -insulin coverage by protocol -hypoglycemic protocol DVT prophylaxis -Heparin SC
[2017-10-21] MEDS: metroNIDAZOLE 500mg/100ml NS 100 ML IVPB SCH ×2 (13:03→16:11)
--- NOTE | 2017-10-21 14:36 | CP.PCM.CON ---
History of Present Illness - History of Present Illness History of Present Illness: Infectious disease Consultation Note- asked to see this patietn at the request of family practice team and ER doc. for sepsis. HPI- patient known to me from her last admission 3 weeks ago. currently pt. is intubated and hence admission history obtained from ER doctor and med records. Patient is a 77 year old female with PMH of DM II, HTN , CKD stage 4, hydronephrosis s/p bl ureteral stents who was admitted 4 weeks ago to med-surg floor for fever, leukocytosis and sepsis secondary to retained ureteral stents and UTI and diarrhea. duing that admission pt. ws found to have c.diff and was placed on oral vancomycin treatment and was also on IV cefepime for her UTI and sepsis secondary to the retained ureteral stents. Pt. had the b/l ureteral stents replaced last admission by and improved and was transferred to TCU to complete her antibiotic therpay adn to receive PT. Of note pt. is noncomplaian tand does not f/u with her doctors and was not on HD. She was brought to ER by EMS, accompanied by her family for evaluation of altered mental status last night. As per patient's son. patient has had AMS for the past 2-3 days, constant and worsening, associated with a several day history of moderate to severe abdominal pain associated with NBNB emesis, and diarrheas. In ED, patient found to be tachypneic with AMS and was intubated; also with hyperkalemia and severe metabolic acidosis; clay placement was attempted but resistance was met, some pus was seen by ER nurse during attempted placement. I'm asked to evaluate and help with antibiotic management. currently pt. is in ICU , intubated , on 2 pressors for BP suppport and as per nurse she has had emergent HD through groin line x 1. PMD: [place], pt without any follow up since prior d/c, [place] (Uro)[facility] ( nephro) Psurghx: B/L Renal stenting (05/2017),was replaced in 09/2017 , tonsillectomy, left wrist ORIF ALL: NKDA LMP: >20 years ago SocialHx: denies ETOH/tobacco/drug abuse, lives at home in [place] with son FamilyHx: unknown family hx Review of Systems - Review of Systems Review of Systems: ROS- unable to obtain as pt. is intubated and lethargic Past Patient History - Infectious Disease Hx of Infectious Diseases: None - Past Medical History & Family History Past Medical History?: Yes - Past Social History Smoking Status: Never Smoked - CARDIAC Hx Hypercholesterolemia: Yes Hx Hypertension: Yes - PULMONARY Hx Chronic Obstructive Pulmonary Disease (COPD): Yes Hx Pneumonia: Yes - NEUROLOGICAL Hx Neurological Disorder: No - HEENT Hx HEENT Problems: No - RENAL Hx Chronic Kidney Disease: Yes - ENDOCRINE/METABOLIC Hx Endocrine Disorders: Yes Hx Diabetes Mellitus Type 2: Yes - HEMATOLOGICAL/ONCOLOGICAL Hx Blood Disorders: No - INTEGUMENTARY Hx Dermatological Problems: No - MUSCULOSKELETAL/RHEUMATOLOGICAL Hx Arthritis: Yes - GASTROINTESTINAL Hx Gastrointestinal Disorders: No - GENITOURINARY/GYNECOLOGICAL Hx Genitourinary Disorders: Yes Hx Incontinence: Yes - PSYCHIATRIC Hx Anxiety: Yes Hx Depression: Yes - SURGICAL HISTORY Hx Tonsillectomy: Yes - ANESTHESIA Hx Anesthesia: Yes Hx Anesthesia Reactions: No Hx Malignant Hyperthermia: No Meds Allergies/Adverse Reactions: Allergies Allergy/AdvReac Type Severity Reaction Status Date / Time No Known Allergies Allergy Verified 05/08/17 21:15 - Medications Medications: Current Medications Aspirin (Ecotrin) 81 mg PO DAILY [place] Last Admin: 10/21/17 08:49 Dose: 81 mg Atorvastatin Calcium (Lipitor) 40 mg PO QPM [place] Dextrose (Dextrose 50% Inj) 0 ml IV STAT PRN; Protocol PRN Reason: Hypoglycemia Protocol Dextrose (Glutose 15) 0 gm PO ONCE PRN; Protocol PRN Reason: Hypoglycemia Protocol Dextrose (Dextrose 50% Inj) 0 ml IV STAT PRN; Protocol PRN Reason: Hypoglycemia Protocol Dextrose (Glutose 15) 0 gm PO ONCE PRN; Protocol PRN Reason: Hypoglycemia Protocol Glucagon (Glucagen Diagnostic Kit) 0 mg IM STAT PRN; Protocol PRN Reason: Hypoglycemia Protocol Glucagon (Glucagen Diagnostic Kit) 0 mg IM STAT PRN; Protocol PRN Reason: Hypoglycemia Protocol Heparin Sodium (Porcine) (Heparin) 5,000 units SC Q8 [place] PRN Reason: Protocol Last Admin: 10/21/17 08:51 Dose: 5,000 units Norepinephrine Bitartrate 4 mg (/ Dextrose) 254 mls @ 15.24 mls/hr IV .[id number] [place]; 4 MCG/MIN PRN Reason: Protocol Last Titration: 10/21/17 13:45 Dose: 17.5 mcg/min, 66.67 mls/hr Vancomycin HCl 1 gm/ Sodium (Chloride) 250 mls @ 250 mls/hr IVPB STAT [place] PRN Reason: Protocol Midazolam HCl 50 mg/ Sodium (Chloride) 100 mls @ 4 mls/hr IV .Q24H ONE; 2 MG/HR PRN Reason: Protocol Stop: 10/21/17 22:14 Last Admin: 10/20/17 23:00 Dose: 4 mls/hr Sodium Bicarbonate 150 meq/ (Dextrose) 1,150 mls @ 200 mls/hr IV .Q5H45M [place] Stop: 10/21/17 22:33 Last Admin: 10/21/17 12:27 Dose: 200 mls/hr Vancomycin HCl 1 gm/ Sodium (Chloride) 250 mls @ 166.667 mls/hr IVPB DAILY [place] PRN Reason: Protocol Last Admin: 10/21/17 08:50 Dose: 166.667 mls/hr Azithromycin 500 mg/ Sodium (Chloride) 250 mls @ 250 mls/hr IVPB DAILY [place] PRN Reason: Protocol Last Admin: 10/21/17 08:50 Dose: 250 mls/hr Midazolam HCl 50 mg/ Sodium (Chloride) 100 mls @ 4 mls/hr IV .Q24H ONE; 2 MG/HR PRN Reason: Protocol Stop: 10/21/17 23:02 Last Admin: 10/21/17 00:00 Dose: Not Given Phenylephrine HCl 10 mg/ (Sodium Chloride) 251 mls @ 30.12 mls/hr IV .Q8H20M [place]; 20 MCG/MIN PRN Reason: Protocol Stop: 10/22/17 08:42 Last Admin: 10/21/17 09:52 Dose: 20 mcg/min, 30.12 mls/hr Metronidazole (Flagyl 500mg/100ml Ns) 100 mls @ 100 mls/hr IVPB Q8 [place] PRN Reason: Protocol Last Admin: 10/21/17 13:03 Dose: 100 mls/hr Meropenem 500 mg/ Sodium (Chloride) 100 mls @ 100 mls/hr IVPB Q8 [place] PRN Reason: Protocol Insulin Human Regular 100 (units/ Sodium Chloride) 101 mls @ 2.02 mls/hr IV .Q24H [place]; 2 UNITS/HR PRN Reason: Protocol Last Titration: 10/21/17 13:44 Dose: 8 units/hr, 8.08 mls/hr Mannitol (Mannitol) 12.5 gm IV Q15MIN [place] Stop: 10/24/17 00:46 Physical Exam - Constitutional Appears: Unkempt, Chronically Ill Additional comments: lethargic , Intubated - Head Exam Head Exam: ATRAUMATIC - ENT Exam Additional comments: ET tube in place - Respiratory Exam Additional comments: on the ventilator breath sounds heard - Cardiovascular Exam Cardiovascular Exam: Tachycardia, +S1, +S2 - GI/Abdominal Exam Additional comments: slightly distended, soft, bowel sounds heard No guarding - Extremities Exam Additional comments: 1+ LE edema B/L - Neurological Exam Neurological exam: Altered Results - Vital Signs Recent Vital Signs: Last Vital Signs Temp 99.1 F 10/21/17 12:00 Pulse 101 H 10/21/17 14:00 Resp 22 10/21/17 14:00 BP 105/53 L 10/21/17 14:00 Pulse Ox 100 10/21/17 14:00 - Labs Result Diagrams: 10/21/17 04:18 10/21/17 04:18 Labs: Laboratory Results - last 24 hr 10/20/17 10/20/17 10/20/17 18:47 19:01 19:46 WBC RBC Hgb Hct MCV MCH MCHC RDW Plt Count MPV Neut % (Auto) Lymph % (Auto) [place] % (Auto) Eos % (Auto) Baso % (Auto) Neut # (Auto) Lymph # (Auto) [place] # (Auto) Eos # (Auto) Baso # (Auto) Neutrophils % (Manual) Band Neutrophils % Lymphocytes % (Manual) Monocytes % (Manual) Toxic Granulation Platelet Estimate Plt Clumps, EDTA Large Platelets Hypochromasia (manual) Poikilocytosis (manual Anisocytosis (manual) Target Cells Tear Drop Cells Ovalocytes [place] Cells PT INR APTT pCO2 13 L* pO2 199 H HCO3 0.3 L* ABG pH 6.80 L* ABG Total CO2 2.4 L ABG O2 Saturation 100.6 H ABG O2 Content ABG Base Excess -31.5 L ABG Hemoglobin ABG Carboxyhemoglobin POC ABG HHb (Measured) ABG Methemoglobin ABG O2 Capacity Arnoldo Test Yes ABG Potassium 7.2 H* VBG pH VBG pCO2 VBG O2 Sat (Calc) VBG Potassium A-a O2 Difference 498.0 Hgb O2 Saturation Sodium 126.0 L 135 Chloride 93.0 L 98 Glucose 295 H Lactate 5.7 H* Vent Mode Mechanical Rate FiO2 100.0 Tidal Volume PEEP Blood Gas Comments 100% mask Crit Value Called To Dr. sonam jeong Crit Value Called By Yumiko Crivida Value Read Back Y Blood Gas Notified Time 1918 Potassium 6.9 H* D Carbon Dioxide < 5 L* D Anion Gap 39 H BUN 182 H* D Creatinine 21.8 H* D Est GFR ( Amer) 2 Est GFR (Non-Af Amer) 2 POC Glucose (mg/dL) 218 H Random Glucose 264 H Calcium 8.4 Phosphorus 15.7 H Magnesium 2.9 H Total Bilirubin 0.5 AST 23 ALT 21 Alkaline Phosphatase 129 H D Troponin I 0.0810 NT-Pro-B Natriuret Pep 4650 H Total Protein 6.9 Albumin 3.4 L D Globulin 3.5 Albumin/Globulin Ratio 1.0 Arterial Blood Potassium 7.2 H* Venous Blood Potassium 10/20/17 10/20/17 10/20/17 19:46 19:46 20:12 WBC 25.7 H D RBC 4.18 Hgb 11.1 L Hct 37.8 MCV 90.3 D MCH 26.5 L MCHC 29.4 L RDW 16.6 H Plt Count 673 H D MPV 7.8 Neut % (Auto) 89.4 H Lymph % (Auto) 7.3 L [place] % (Auto) 3.1 Eos % (Auto) 0.1 Baso % (Auto) 0.1 Neut # (Auto) 23.0 H Lymph # (Auto) 1.9 [place] # (Auto) 0.8 Eos # (Auto) 0.0 Baso # (Auto) 0.0 Neutrophils % (Manual) 81 H Band Neutrophils % 5 H Lymphocytes % (Manual) 8 L Monocytes % (Manual) 6 Toxic Granulation Present Platelet Estimate Increased H Plt Clumps, EDTA Large Platelets Present Hypochromasia (manual) Slight Poikilocytosis (manual Slight Anisocytosis (manual) Slight Target Cells Slight Tear Drop Cells Ovalocytes [place] Cells Slight PT 12.3 INR 1.1 APTT 21.5 L pCO2 pO2 HCO3 ABG pH ABG Total CO2 ABG O2 Saturation ABG O2 Content ABG Base Excess ABG Hemoglobin ABG Carboxyhemoglobin POC ABG HHb (Measured) ABG Methemoglobin ABG O2 Capacity Arnoldo Test ABG Potassium VBG pH VBG pCO2 VBG O2 Sat (Calc) VBG Potassium A-a O2 Difference Hgb O2 Saturation Sodium Chloride Glucose Lactate Vent Mode Mechanical Rate FiO2 Tidal Volume PEEP Blood Gas Comments Crit Value Called To Crit Value Called By Crit Value Read Back Blood Gas Notified Time Potassium Carbon Dioxide Anion Gap BUN Creatinine Est GFR ( Amer) Est GFR (Non-Af Amer) POC Glucose (mg/dL) 184 H Random Glucose Calcium Phosphorus Magnesium Total Bilirubin AST ALT Alkaline Phosphatase Troponin I NT-Pro-B Natriuret Pep Total Protein Albumin Globulin Albumin/Globulin Ratio Arterial Blood Potassium Venous Blood Potassium 10/20/17 10/21/17 10/21/17 20:32 00:36 00:41 WBC RBC Hgb Hct MCV MCH MCHC RDW Plt Count MPV Neut % (Auto) Lymph % (Auto) [place] % (Auto) Eos % (Auto) Baso % (Auto) Neut # (Auto) Lymph # (Auto) [place] # (Auto) Eos # (Auto) Baso # (Auto) Neutrophils % (Manual) Band Neutrophils % Lymphocytes % (Manual) Monocytes % (Manual) Toxic Granulation Platelet Estimate Plt Clumps, EDTA Large Platelets Hypochromasia (manual) Poikilocytosis (manual Anisocytosis (manual) Target Cells Tear Drop Cells Ovalocytes [place] Cells PT INR APTT pCO2 20 L pO2 256 H 646 H HCO3 1.3 L* ABG pH 6.80 L* ABG Total CO2 3.7 L ABG O2 Saturation 100.2 H ABG O2 Content ABG Base Excess -30.3 L ABG Hemoglobin ABG Carboxyhemoglobin POC ABG HHb (Measured) ABG Methemoglobin ABG O2 Capacity Arnoldo Test Yes ABG Potassium 6.8 H* VBG pH < 6.80 L* VBG pCO2 24 L VBG O2 Sat (Calc) 100.0 H VBG Potassium 6.8 H* A-a O2 Difference 42.0 Hgb O2 Saturation Sodium 130.0 L 130.0 L Chloride 102.0 102.0 Glucose 399 H 415 H* D Lactate 6.0 H* 6.0 H* Vent Mode A/c Mechanical Rate 14 FiO2 100.0 100.0 Tidal Volume 450 PEEP 5 5 Blood Gas Comments Crit Value Called To Dr wilber gonzalez Crit Value Called By Ashok Pulido Crit Value Read Back Y Y Blood Gas Notified Time 41 48 Potassium Carbon Dioxide Anion Gap BUN Creatinine Est GFR ( Amer) Est GFR (Non-Af Amer) POC Glucose (mg/dL) 224 H Random Glucose Calcium Phosphorus Magnesium Total Bilirubin AST ALT Alkaline Phosphatase Troponin I NT-Pro-B Natriuret Pep Total Protein Albumin Globulin Albumin/Globulin Ratio Arterial Blood Potassium 6.8 H* Venous Blood Potassium 6.8 H* 10/21/1718 18 04:18 04:18 04:18 WBC 23.3 H RBC 3.71 L Hgb 9.9 L Hct 32.1 L MCV 86.5 D MCH 26.7 L MCHC 30.8 L RDW 16.0 H Plt Count 536 H D MPV 7.9 Neut % (Auto) 97.7 H Lymph % (Auto) 1.3 L [place] % (Auto) 0.6 Eos % (Auto) 0.3 Baso % (Auto) 0.1 Neut # (Auto) 22.7 H Lymph # (Auto) 0.3 L [place] # (Auto) 0.1 Eos # (Auto) 0.1 Baso # (Auto) 0.0 Neutrophils % (Manual) 99 H Band Neutrophils % Lymphocytes % (Manual) 1 L Monocytes % (Manual) TEST NOT PERFORMED Toxic Granulation Platelet Estimate Increased H Plt Clumps, EDTA Present Large Platelets Hypochromasia (manual) Slight Poikilocytosis (manual Slight Anisocytosis (manual) Slight Target Cells Tear Drop Cells Slight Ovalocytes Slight [place] Cells PT INR APTT 33.2 D pCO2 pO2 HCO3 ABG pH ABG Total CO2 ABG O2 Saturation ABG O2 Content ABG Base Excess ABG Hemoglobin ABG Carboxyhemoglobin POC ABG HHb (Measured) ABG Methemoglobin ABG O2 Capacity Arnoldo Test ABG Potassium VBG pH VBG pCO2 VBG O2 Sat (Calc) VBG Potassium A-a O2 Difference Hgb O2 Saturation Sodium 137 Chloride 95 L Glucose Lactate Vent Mode Mechanical Rate FiO2 Tidal Volume PEEP Blood Gas Comments Crit Value Called To Crit Value Called By Crit Value Read Back Blood Gas Notified Time Potassium 6.2 H* Carbon Dioxide 6 L* D Anion Gap 42 H BUN 146 H* Creatinine 15.4 H* D Est GFR ( Amer) 3 Est GFR (Non-Af Amer) 2 POC Glucose (mg/dL) Random Glucose 564 H* D Calcium 7.1 L Phosphorus Magnesium Total Bilirubin AST ALT Alkaline Phosphatase Troponin I 0.1040 NT-Pro-B Natriuret Pep Total Protein Albumin Globulin Albumin/Globulin Ratio Arterial Blood Potassium Venous Blood Potassium 10/21/17 10/21/17 10/21/17 06:08 10:10 11:15 WBC RBC Hgb Hct MCV MCH MCHC RDW Plt Count MPV Neut % (Auto) Lymph % (Auto) [place] % (Auto) Eos % (Auto) Baso % (Auto) Neut # (Auto) Lymph # (Auto) [place] # (Auto) Eos # (Auto) Baso # (Auto) Neutrophils % (Manual) Band Neutrophils % Lymphocytes % (Manual) Monocytes % (Manual) Toxic Granulation Platelet Estimate Plt Clumps, EDTA Large Platelets Hypochromasia (manual) Poikilocytosis (manual Anisocytosis (manual) Target Cells Tear Drop Cells Ovalocytes [place] Cells PT INR APTT pCO2 21 L pO2 250 H HCO3 14.3 L ABG pH 7.32 L ABG Total CO2 11.4 L ABG O2 Saturation 99.5 H ABG O2 Content 13.3 L ABG Base Excess -13.7 L ABG Hemoglobin 9.2 L ABG Carboxyhemoglobin 0.6 POC ABG HHb (Measured) 0.5 ABG Methemoglobin 1.0 ABG O2 Capacity 13.4 L Arnoldo Test Yes ABG Potassium VBG pH VBG pCO2 VBG O2 Sat (Calc) VBG Potassium A-a O2 Difference 80.0 Hgb O2 Saturation 97.9 Sodium Chloride Glucose Lactate Vent Mode A/cprc Mechanical Rate 1 FiO2 50.0 Tidal Volume 450 PEEP 5 Blood Gas Comments Crit Value Called To Crit Value Called By Crit Value Read Back Blood Gas Notified Time Potassium Carbon Dioxide Anion Gap BUN Creatinine Est GFR ( Amer) Est GFR (Non-Af Amer) POC Glucose (mg/dL) 454 H* > 500 H* Random Glucose Calcium Phosphorus Magnesium Total Bilirubin AST ALT Alkaline Phosphatase Troponin I NT-Pro-B Natriuret Pep Total Protein Albumin Globulin Albumin/Globulin Ratio Arterial Blood Potassium Venous Blood Potassium 10/21/17 10/21/17 13:36 14:30 WBC RBC Hgb Hct MCV MCH MCHC RDW Plt Count MPV Neut % (Auto) Lymph % (Auto) [place] % (Auto) Eos % (Auto) Baso % (Auto) Neut # (Auto) Lymph # (Auto) [place] # (Auto) Eos # (Auto) Baso # (Auto) Neutrophils % (Manual) Band Neutrophils % Lymphocytes % (Manual) Monocytes % (Manual) Toxic Granulation Platelet Estimate Plt Clumps, EDTA Large Platelets Hypochromasia (manual) Poikilocytosis (manual Anisocytosis (manual) Target Cells Tear Drop Cells Ovalocytes [place] Cells PT INR APTT pCO2 pO2 HCO3 ABG pH ABG Total CO2 ABG O2 Saturation ABG O2 Content ABG Base Excess ABG Hemoglobin ABG Carboxyhemoglobin POC ABG HHb (Measured) ABG Methemoglobin ABG O2 Capacity Arnoldo Test ABG Potassium VBG pH VBG pCO2 VBG O2 Sat (Calc) VBG Potassium A-a O2 Difference Hgb O2 Saturation Sodium Chloride Glucose Lactate Vent Mode Mechanical Rate FiO2 Tidal Volume PEEP Blood Gas Comments Crit Value Called To Crit Value Called By Crit Value Read Back Blood Gas Notified Time Potassium Carbon Dioxide Anion Gap BUN Creatinine Est GFR ( Amer) Est GFR (Non-Af Amer) POC Glucose (mg/dL) 490 H* 478 H* Random Glucose Calcium Phosphorus Magnesium Total Bilirubin AST ALT Alkaline Phosphatase Troponin I NT-Pro-B Natriuret Pep Total Protein Albumin Globulin Albumin/Globulin Ratio Arterial Blood Potassium Venous Blood Potassium Laboratory Results - last 72 hr 10/20/17 10/20/17 10/20/17 18:47 19:01 19:46 WBC RBC Hgb Hct MCV MCH MCHC RDW Plt Count MPV Neut % (Auto) Lymph % (Auto) [place] % (Auto) Eos % (Auto) Baso % (Auto) Neut # (Auto) Lymph # (Auto) [place] # (Auto) Eos # (Auto) Baso # (Auto) Neutrophils % (Manual) Band Neutrophils % Lymphocytes % (Manual) Monocytes % (Manual) Toxic Granulation Platelet Estimate Plt Clumps, EDTA Large Platelets Hypochromasia (manual) Poikilocytosis (manual Anisocytosis (manual) Target Cells Tear Drop Cells Ovalocytes [place] Cells PT INR APTT pCO2 13 L* pO2 199 H HCO3 0.3 L* ABG pH 6.80 L* ABG Total CO2 2.4 L ABG O2 Saturation 100.6 H ABG O2 Content ABG Base Excess -31.5 L ABG Hemoglobin ABG Carboxyhemoglobin POC ABG HHb (Measured) ABG Methemoglobin ABG O2 Capacity Arnoldo Test Yes ABG Potassium 7.2 H* VBG pH VBG pCO2 VBG O2 Sat (Calc) VBG Potassium A-a O2 Difference 498.0 Hgb O2 Saturation Sodium 126.0 L 135 Chloride 93.0 L 98 Glucose 295 H Lactate 5.7 H* Vent Mode Mechanical Rate FiO2 100.0 Tidal Volume PEEP Blood Gas Comments 100% mask Crit Value Called To Dr. sonam jeong Crit Value Called By Yumiko Garcia Value Read Back Y Blood Gas Notified Time 1918 Potassium 6.9 H* D Carbon Dioxide < 5 L* D Anion Gap 39 H BUN 182 H* D Creatinine 21.8 H* D Est GFR ( Amer) 2 Est GFR (Non-Af Amer) 2 POC Glucose (mg/dL) 218 H Random Glucose 264 H Calcium 8.4 Phosphorus 15.7 H Magnesium 2.9 H Total Bilirubin 0.5 AST 23 ALT 21 Alkaline Phosphatase 129 H D Troponin I 0.0810 NT-Pro-B Natriuret Pep 4650 H Total Protein 6.9 Albumin 3.4 L D Globulin 3.5 Albumin/Globulin Ratio 1.0 Arterial Blood Potassium 7.2 H* Venous Blood Potassium 10/20/17 10/20/17 10/20/17 19:46 19:46 20:12 WBC 25.7 H D RBC 4.18 Hgb 11.1 L Hct 37.8 MCV 90.3 D MCH 26.5 L MCHC 29.4 L RDW 16.6 H Plt Count 673 H D MPV 7.8 Neut % (Auto) 89.4 H Lymph % (Auto) 7.3 L [place] % (Auto) 3.1 Eos % (Auto) 0.1 Baso % (Auto) 0.1 Neut # (Auto) 23.0 H Lymph # (Auto) 1.9 [place] # (Auto) 0.8 Eos # (Auto) 0.0 Baso # (Auto) 0.0 Neutrophils % (Manual) 81 H Band Neutrophils % 5 H Lymphocytes % (Manual) 8 L Monocytes % (Manual) 6 Toxic Granulation Present Platelet Estimate Increased H Plt Clumps, EDTA Large Platelets Present Hypochromasia (manual) Slight Poikilocytosis (manual Slight Anisocytosis (manual) Slight Target Cells Slight Tear Drop Cells Ovalocytes [place] Cells Slight PT 12.3 INR 1.1 APTT 21.5 L pCO2 pO2 HCO3 ABG pH ABG Total CO2 ABG O2 Saturation ABG O2 Content ABG Base Excess ABG Hemoglobin ABG Carboxyhemoglobin POC ABG HHb (Measured) ABG Methemoglobin ABG O2 Capacity Arnoldo Test ABG Potassium VBG pH VBG pCO2 VBG O2 Sat (Calc) VBG Potassium A-a O2 Difference Hgb O2 Saturation Sodium Chloride Glucose Lactate Vent Mode Mechanical Rate FiO2 Tidal Volume PEEP Blood Gas Comments Crit Value Called To Crit Value Called By Crit Value Read Back Blood Gas Notified Time Potassium Carbon Dioxide Anion Gap BUN Creatinine Est GFR ( Amer) Est GFR (Non-Af Amer) POC Glucose (mg/dL) 184 H Random Glucose Calcium Phosphorus Magnesium Total Bilirubin AST ALT Alkaline Phosphatase Troponin I NT-Pro-B Natriuret Pep Total Protein Albumin Globulin Albumin/Globulin Ratio Arterial Blood Potassium Venous Blood Potassium 10/20/17 10/21/17 10/21/17 20:32 00:36 00:41 WBC RBC Hgb Hct MCV MCH MCHC RDW Plt Count MPV Neut % (Auto) Lymph % (Auto) [place] % (Auto) Eos % (Auto) Baso % (Auto) Neut # (Auto) Lymph # (Auto) [place] # (Auto) Eos # (Auto) Baso # (Auto) Neutrophils % (Manual) Band Neutrophils % Lymphocytes % (Manual) Monocytes % (Manual) Toxic Granulation Platelet Estimate Plt Clumps, EDTA Large Platelets Hypochromasia (manual) Poikilocytosis (manual Anisocytosis (manual) Target Cells Tear Drop Cells Ovalocytes [place] Cells PT INR APTT pCO2 20 L pO2 256 H 646 H HCO3 1.3 L* ABG pH 6.80 L* ABG Total CO2 3.7 L ABG O2 Saturation 100.2 H ABG O2 Content ABG Base Excess -30.3 L ABG Hemoglobin ABG Carboxyhemoglobin POC ABG HHb (Measured) ABG Methemoglobin ABG O2 Capacity Arnoldo Test Yes ABG Potassium 6.8 H* VBG pH < 6.80 L* VBG pCO2 24 L VBG O2 Sat (Calc) 100.0 H VBG Potassium 6.8 H* A-a O2 Difference 42.0 Hgb O2 Saturation Sodium 130.0 L 130.0 L Chloride 102.0 102.0 Glucose 399 H 415 H* D Lactate 6.0 H* 6.0 H* Vent Mode A/c Mechanical Rate 14 FiO2 100.0 100.0 Tidal Volume 450 PEEP 5 5 Blood Gas Comments Crit Value Called To Dr wilber gonzalez Crit Value Called By Ashok Pulido Crit Value Read Back Y Y Blood Gas Notified Time 41 48 Potassium Carbon Dioxide Anion Gap BUN Creatinine Est GFR ( Amer) Est GFR (Non-Af Amer) POC Glucose (mg/dL) 224 H Random Glucose Calcium Phosphorus Magnesium Total Bilirubin AST ALT Alkaline Phosphatase Troponin I NT-Pro-B Natriuret Pep Total Protein Albumin Globulin Albumin/Globulin Ratio Arterial Blood Potassium 6.8 H* Venous Blood Potassium 6.8 H* 10/21/17 10/21/17 10/21/17 04:18 04:18 04:18 WBC 23.3 H RBC 3.71 L Hgb 9.9 L Hct 32.1 L MCV 86.5 D MCH 26.7 L MCHC 30.8 L RDW 16.0 H Plt Count 536 H D MPV 7.9 Neut % (Auto) 97.7 H Lymph % (Auto) 1.3 L [place] % (Auto) 0.6 Eos % (Auto) 0.3 Baso % (Auto) 0.1 Neut # (Auto) 22.7 H Lymph # (Auto) 0.3 L [place] # (Auto) 0.1 Eos # (Auto) 0.1 Baso # (Auto) 0.0 Neutrophils % (Manual) 99 H Band Neutrophils % Lymphocytes % (Manual) 1 L Monocytes % (Manual) TEST NOT PERFORMED Toxic Granulation Platelet Estimate Increased H Plt Clumps, EDTA Present Large Platelets Hypochromasia (manual) Slight Poikilocytosis (manual Slight Anisocytosis (manual) Slight Target Cells Tear Drop Cells Slight Ovalocytes Slight [place] Cells PT INR APTT 33.2 D pCO2 pO2 HCO3 ABG pH ABG Total CO2 ABG O2 Saturation ABG O2 Content ABG Base Excess ABG Hemoglobin ABG Carboxyhemoglobin POC ABG HHb (Measured) ABG Methemoglobin ABG O2 Capacity Arnoldo Test ABG Potassium VBG pH VBG pCO2 VBG O2 Sat (Calc) VBG Potassium A-a O2 Difference Hgb O2 Saturation Sodium 137 Chloride 95 L Glucose Lactate Vent Mode Mechanical Rate FiO2 Tidal Volume PEEP Blood Gas Comments Crit Value Called To Crit Value Called By Crit Value Read Back Blood Gas Notified Time Potassium 6.2 H* Carbon Dioxide 6 L* D Anion Gap 42 H BUN 146 H* Creatinine 15.4 H* D Est GFR ( Amer) 3 Est GFR (Non-Af Amer) 2 POC Glucose (mg/dL) Random Glucose 564 H* D Calcium 7.1 L Phosphorus Magnesium Total Bilirubin AST ALT Alkaline Phosphatase Troponin I 0.1040 NT-Pro-B Natriuret Pep Total Protein Albumin Globulin Albumin/Globulin Ratio Arterial Blood Potassium Venous Blood Potassium 10/21/17 10/21/17 10/21/17 06:08 10:10 11:15 WBC RBC Hgb Hct MCV MCH MCHC RDW Plt Count MPV Neut % (Auto) Lymph % (Auto) [place] % (Auto) Eos % (Auto) Baso % (Auto) Neut # (Auto) Lymph # (Auto) [place] # (Auto) Eos # (Auto) Baso # (Auto) Neutrophils % (Manual) Band Neutrophils % Lymphocytes % (Manual) Monocytes % (Manual) Toxic Granulation Platelet Estimate Plt Clumps, EDTA Large Platelets Hypochromasia (manual) Poikilocytosis (manual Anisocytosis (manual) Target Cells Tear Drop Cells Ovalocytes [place] Cells PT INR APTT pCO2 21 L pO2 250 H HCO3 14.3 L ABG pH 7.32 L ABG Total CO2 11.4 L ABG O2 Saturation 99.5 H ABG O2 Content 13.3 L ABG Base Excess -13.7 L ABG Hemoglobin 9.2 L ABG Carboxyhemoglobin 0.6 POC ABG HHb (Measured) 0.5 ABG Methemoglobin 1.0 ABG O2 Capacity 13.4 L Arnoldo Test Yes ABG Potassium VBG pH VBG pCO2 VBG O2 Sat (Calc) VBG Potassium A-a O2 Difference 80.0 Hgb O2 Saturation 97.9 Sodium Chloride Glucose Lactate Vent Mode A/cprc Mechanical Rate 1 FiO2 50.0 Tidal Volume 450 PEEP 5 Blood Gas Comments Crit Value Called To Crit Value Called By Crit Value Read Back Blood Gas Notified Time Potassium Carbon Dioxide Anion Gap BUN Creatinine Est GFR ( Amer) Est GFR (Non-Af Amer) POC Glucose (mg/dL) 454 H* > 500 H* Random Glucose Calcium Phosphorus Magnesium Total Bilirubin AST ALT Alkaline Phosphatase Troponin I NT-Pro-B Natriuret Pep Total Protein Albumin Globulin Albumin/Globulin Ratio Arterial Blood Potassium Venous Blood Potassium 10/21/17 10/21/17 13:36 14:30 WBC RBC Hgb Hct MCV MCH MCHC RDW Plt Count MPV Neut % (Auto) Lymph % (Auto) [place] % (Auto) Eos % (Auto) Baso % (Auto) Neut # (Auto) Lymph # (Auto) [place] # (Auto) Eos # (Auto) Baso # (Auto) Neutrophils % (Manual) Band Neutrophils % Lymphocytes % (Manual) Monocytes % (Manual) Toxic Granulation Platelet Estimate Plt Clumps, EDTA Large Platelets Hypochromasia (manual) Poikilocytosis (manual Anisocytosis (manual) Target Cells Tear Drop Cells Ovalocytes [place] Cells PT INR APTT pCO2 pO2 HCO3 ABG pH ABG Total CO2 ABG O2 Saturation ABG O2 Content ABG Base Excess ABG Hemoglobin ABG Carboxyhemoglobin POC ABG HHb (Measured) ABG Methemoglobin ABG O2 Capacity Arnoldo Test ABG Potassium VBG pH VBG pCO2 VBG O2 Sat (Calc) VBG Potassium A-a O2 Difference Hgb O2 Saturation Sodium Chloride Glucose Lactate Vent Mode Mechanical Rate FiO2 Tidal Volume PEEP Blood Gas Comments Crit Value Called To Crit Value Called By Crit Value Read Back Blood Gas Notified Time Potassium Carbon Dioxide Anion Gap BUN Creatinine Est GFR ( Amer) Est GFR (Non-Af Amer) POC Glucose (mg/dL) 490 H* 478 H* Random Glucose Calcium Phosphorus Magnesium Total Bilirubin AST ALT Alkaline Phosphatase Troponin I NT-Pro-B Natriuret Pep Total Protein Albumin Globulin Albumin/Globulin Ratio Arterial Blood Potassium Venous Blood Potassium Microbiology 09/24/17 07:40 Urine,Catheterized Urine Culture - Final No Growth (<1,000 CFU/ML) 09/19/17 19:06 Urine,Catheterized Urine Culture - Final No Growth (<1,000 CFU/ML) 09/18/17 20:31 Urine,Clean Catch Urine Culture - Final No Growth (<1,000 CFU/ML) 09/15/17 18:18 Blood Blood Culture - Final 09/15/17 18:18 Blood Gram Stain - Final NO GROWTH AFTER 5 DAYS TEST NOT PERFORMED 09/15/17 18:08 Blood Blood Culture - Final NO GROWTH AFTER 5 DAYS 09/14/17 22:33 Stool Stool Culture - Final NO SALMONELLA, SHIGELLA OR CAMPYLOBACTER ISOLATED. 09/14/17 17:13 Blood Blood Culture - Final 09/14/17 17:13 Blood Gram Stain - Final NO GROWTH AFTER 5 DAYS TEST NOT PERFORMED 09/14/17 17:13 Blood Blood Culture - Final 09/14/17 17:13 Blood Gram Stain - Final NO GROWTH AFTER 5 DAYS TEST NOT PERFORMED 09/14/17 17:01 Urine,Clean Catch Urine Culture - Final 50-100,000 CFU/ML. MULTIPLE SPECIES. SUGGEST REPEAT SPECIMEN. Accession No. : [id number] Patient Name / ID : SUMMER DHILLON / [id number] Exam Date : 10/21/2017 07:12:41 ( Approved ) Study Comment : Sex / Age : F / 77Y Creator : Chris West MD Dictator : Chris West MD Manager Delivery : Operating Table Assembler : Chris West MD Approver2 : Report Date : 10/21/2017 08:20:12 My Comment : HISTORY: endotracheal tube/mechanical ventilation COMPARISON: 10/20/2017 FINDINGS: LUNGS: No active pulmonary disease. PLEURA: No significant pleural effusion identified, no pneumothorax apparent. CARDIOVASCULAR: Normal. OSSEOUS STRUCTURES: No significant abnormalities. VISUALIZED UPPER ABDOMEN: Normal. OTHER FINDINGS: ETT above the justo. NG tube in the stomach. IMPRESSION: ETT above the justo. NG tube in the stomach. Otherwise no change Accession No. : [id number] Patient Name / ID : SUMMER DHILLON / [id number] Exam Date : 10/20/2017 22:35:23 ( Approved ) Study Comment : Sex / Age : F / 77Y Creator : QUIANA BLANCA Dictator : Manager Delivery : Operating Table Assembler : QUIANA BLANCA Approver2 : Report Date : 10/20/2017 23:26:00 My Comment : [facility] Division of Radiology [address] [facility] [address] Tel. no. Patient Name: ALEJO WHEELER Pt. Address: [address] [place] [address] Rec #: [id number] [place] [address]: Sonam COLLADO, Frank Avendaño Pt CELL Order Location: .ICU/ CCU : 1940 Female Age: 77 Order #: [id number] Reason for exam: R/O stone CT Scan ABD PELVIS W/O PO OR IV CONT Exam Date: 10/20/17 This imaging exam was performed at [facility] EXAM: CT Abdomen and Pelvis Without Intravenous Contrast CLINICAL HISTORY: 77 years old, female; Screening exam; Other: R/O stones; Additional info: R/ O stone TECHNIQUE: Axial computed tomography images of the abdomen and pelvis without intravenous contrast. All CT scans at this facility use one or more dose reduction techniques, viz.: automated exposure control; ma/kV adjustment per patient size (including targeted exams where dose is matched to indication; i.e. head); or iterative reconstruction technique. Coronal and sagittal reformatted images were created and reviewed. COMPARISON: CT - ABD PELVIS W/O PO OR IV CONT 2017-09-14 21:19 FINDINGS: Artifacts: Motion artifact does moderately limit the sensitivity of this examination. Lung bases: 7 mm nodular density in the left lung base, unchanged. No consolidation. ABDOMEN: Liver: The liver is within normal limits for this noncontrast study. Gallbladder and bile ducts: Unremarkable. No calcified stones. No ductal dilation. Pancreas: Unremarkable. No ductal dilation. Spleen: Unremarkable. No splenomegaly. Adrenals: Unremarkable. No mass. Kidneys and ureters: The kidneys are markedly limited by motion. Bilaterally ureteral stents are present. Persistent hydronephrosis and hydroureter. Stomach and bowel: Moderate diverticulosis is present in the sigmoid and descending colon. The sigmoid colon is thickwalled with adjacent inflammatory stranding suggesting acute colitis/diverticulitis. The cecum is moderately distended with air measuring up to 10.6 cm. Appendix: The appendix is mildly prominent measuring 7 mm without adjacent inflammatory stranding to suggest acute appendicitis. PELVIS: Bladder: Decompressed. Reproductive: Hysterectomy. ABDOMEN and PELVIS: Intraperitoneal space: Unremarkable. No free air. No significant fluid collection. Bones/joints: There is a cystic mass in the right pelvis measuring 4.6 x 4.5 cm, unchanged. No dislocation. Soft tissues: Unremarkable. Vasculature: The aorta demonstrates moderate atherosclerotic calcification. No abdominal aortic aneurysm. Lymph nodes: Unremarkable. No enlarged lymph nodes. IMPRESSION: Diverticulosis. Acute sigmoid colitis/diverticulitis. No perforation or abscess. Bilateral hydroureteronephrosis with ureteral stents in place. Stable right adnexal cyst. Dictated By: Quiana Blanca MD Dictated Date/Time: 10/20/172325 Signed By: Quiana Son MD Date Signed: 2325 Transcribed By: CHRISTIAN Transcribe Date/Time : 10/20/172325 LOLLY/AARON Assessment & Plan (1) Acute on chronic renal failure Status: Acute (2) Metabolic acidosis Status: Acute (3) Septic shock Status: Acute (4) UTI (urinary tract infection) Status: Acute (5) Hyperkalemia Status: Acute - Assessment and Plan (Free Text) Assessment: A/P- 77 year old female with multiple medical conditions and noncomplaint including CKD stage 4, DM II, b/l ureteral stents ( repaced 09/2017) admitted with change in MS, hector. fount o be hyperkalemic, metabolic acidosis, acute on chronic renal insufficiency leukocytosis. anuric as per ER doc unable to insert clay and pus was noted . metabolic acidosis hyperkalemia ct abd- colitis leukocytosis acute on chronic renal failure s/p emergent HD plan- await blood and urine cx [id number]. had spoken with ER doctor last night and advised to place on IV meropnem ( renal dose) and IV vanco x 1 dose and IV zithromycin pending furtere results. vanco can be given post HD , keep trough <15. No objection to continuing with the IV flagyl started by the ICU doctor today as ABD ct report colitis adn pt. intubated and can't take oral meds at this time. acidosis and hyperkalemia management as per ICU and renal doctor. consult advised . needs to have the ureteral stent removed most likely. monitor temp and wbc closely. All labs and imaging results and chart notes reviewed. Thank you for allowing me to take part in the care of this patient. ICU time 60 minutes.
[2017-10-21] MEDS: Meropenem 500 MG in Sodium Chloride 0.9% 100 ML IVPB SCH (16:13)
[2017-10-21 17:22] LABS: CALCIUM 6.2 mg/dL (8.4-10.2)
--- NOTE | 2017-10-21 18:32 | CP.PCM.PN ---
Subjective - Date & Time of Evaluation Date of Evaluation: 10/21/17 Time of Evaluation: 14:30 - Subjective Subjective: Second vasopressor (phenylephrine) added today; poor HD cath blood flows overnight (only 100 cc/min); Objective - Vital Signs/Intake and Output Vital Signs (last 24 hours): Temp Pulse Resp BP Pulse Ox 98.9 F 107 H 22 141/70 100 10/21/17 16:00 10/21/17 18:00 10/21/17 18:00 10/21/17 18:00 10/21/17 18:00 Intake and Output: 10/21/17 10/21/17 06:59 18:59 Intake Total 2340 5026 Output Total 0 Balance 2340 5026 - Medications Medications: Current Medications Aspirin (Ecotrin) 81 mg PO DAILY [facility] Last Admin: 10/21/17 08:49 Dose: 81 mg Atorvastatin Calcium (Lipitor) 40 mg PO QPM [facility] Last Admin: 10/21/17 17:21 Dose: Not Given Dextrose (Dextrose 50% Inj) 0 ml IV STAT PRN; Protocol PRN Reason: Hypoglycemia Protocol Dextrose (Glutose 15) 0 gm PO ONCE PRN; Protocol PRN Reason: Hypoglycemia Protocol Dextrose (Dextrose 50% Inj) 0 ml IV STAT PRN; Protocol PRN Reason: Hypoglycemia Protocol Dextrose (Glutose 15) 0 gm PO ONCE PRN; Protocol PRN Reason: Hypoglycemia Protocol Glucagon (Glucagen Diagnostic Kit) 0 mg IM STAT PRN; Protocol PRN Reason: Hypoglycemia Protocol Glucagon (Glucagen Diagnostic Kit) 0 mg IM STAT PRN; Protocol PRN Reason: Hypoglycemia Protocol Heparin Sodium (Porcine) (Heparin) 5,000 units SC Q8 [place] PRN Reason: Protocol Last Admin: 10/21/17 16:12 Dose: 5,000 units Norepinephrine Bitartrate 4 mg (/ Dextrose) 254 mls @ 15.24 mls/hr IV .[id number] [place]; 4 MCG/MIN PRN Reason: Protocol Last Titration: 10/21/17 18:15 Dose: 12.5 mcg/min, 47.62 mls/hr Vancomycin HCl 1 gm/ Sodium (Chloride) 250 mls @ 250 mls/hr IVPB STAT [facility] PRN Reason: Protocol Midazolam HCl 50 mg/ Sodium (Chloride) 100 mls @ 4 mls/hr IV .Q24H ONE; 2 MG/HR PRN Reason: Protocol Stop: 10/21/17 22:14 Last Admin: 10/20/17 23:00 Dose: 4 mls/hr Azithromycin 500 mg/ Sodium (Chloride) 250 mls @ 250 mls/hr IVPB DAILY [place] PRN Reason: Protocol Last Admin: 10/21/17 08:50 Dose: 250 mls/hr Midazolam HCl 50 mg/ Sodium (Chloride) 100 mls @ 4 mls/hr IV .Q24H ONE; 2 MG/HR PRN Reason: Protocol Stop: 10/21/17 23:02 Last Admin: 10/21/17 00:00 Dose: Not Given Phenylephrine HCl 10 mg/ (Sodium Chloride) 251 mls @ 30.12 mls/hr IV .Q8H20M [place]; 20 MCG/MIN PRN Reason: Protocol Stop: 10/22/17 08:42 Last Admin: 10/21/17 09:52 Dose: 20 mcg/min, 30.12 mls/hr Metronidazole (Flagyl 500mg/100ml Ns) 100 mls @ 100 mls/hr IVPB Q8 [place] PRN Reason: Protocol Last Admin: 10/21/17 16:11 Dose: 100 mls/hr Meropenem 500 mg/ Sodium (Chloride) 100 mls @ 100 mls/hr IVPB Q8 [place] PRN Reason: Protocol Last Admin: 10/21/17 16:13 Dose: 100 mls/hr Insulin Human Regular 100 (units/ Sodium Chloride) 101 mls @ 2.02 mls/hr IV .Q24H [place]; 2 UNITS/HR PRN Reason: Protocol Last Titration: 10/21/17 17:42 Dose: 5 units/hr, 5.05 mls/hr Mannitol (Mannitol) 12.5 gm IV Q15MIN [place] Stop: 10/24/17 15:16 - Labs Labs: 10/21/17 04:18 10/21/17 15:30 PT 12.3 Seconds (9.8-13.1) 10/20/17 19:46 INR 1.1 (0.9-1.2) 10/20/17 19:46 APTT 33.2 Seconds (25.6-37.1) D 10/21/17 04:18 - Constitutional Appears: Non-toxic, No Acute Distress - Eye Exam Eye Exam: absent: Scleral icterus - ENT Exam ENT Exam: Mucous Membranes Moist - Respiratory Exam Respiratory Exam: Clear to Ausculation Bilateral. absent: Respiratory Distress - Cardiovascular Exam Cardiovascular Exam: Tachycardia, +S1, +S2 - GI/Abdominal Exam GI & Abdominal Exam: Soft. absent: Distended - Exam Additional comments: clay in place, no bladder distention; - Extremities Exam Additional comments: minimal leg edema; - Neurological Exam Additional comments: sedated - Skin Skin Exam: Warm. absent: Cyanosis Assessment and Plan (1) Acute renal failure Assessment & Plan: NINA on CKD IV; anuric renal failure; clinically ATN from septic shock; poor HD overnight due to catheter malfunction (likely position) but overall electrolyte status improved; seen today on 2nd HD session, blood flows adequate (250 cc/min) ; goal is to continue to correct acidosis and control hyperkalemia; if stable tomorrow, next HD session for Monday; Status: Acute (2) Metabolic acidosis Assessment & Plan: Improved on bicarb drip and HD; stopping bicarb drip; if needed, can restart with 1/2NS w/ 75 meq sodium bicarb (hyperglycemic with D5W); Status: Acute (3) Hyperkalemia Assessment & Plan: Improved with HD, bicarb drip and insulin drip; monitor closely; Status: Acute (4) Septic shock Assessment & Plan: On vanco, meropenem and azithromycin; need to ensure vanco and meropenem re- dosed after HD; Status: Acute - Assessment and Plan (Free Text) Assessment: Critical care time assesing patient, discussing with CCM team and coordinating HD > 60 min;
--- NOTE | 2017-10-21 20:32 | PN ---
CRITICAL CARE PROGRESS NOTE DATE: 10/21/2017 LOCATION: The patient is in ICU, bed 421. TIME SPENT: 50 minutes. SUBJECTIVE: The patient is seen and evaluated at the bedside. Past medical, surgical, social, and family history reviewed. Events since admission noted. A 77-year-old female with history significant for diabetes mellitus type 2, hypertension, hydronephrosis, status post bilateral stents, chronic kidney disease stage IV, recent admission for diarrhea with positive C. diff, status post bilateral renal stents exchange, readmitted through emergency room with several days of abdominal pain, nausea, vomiting, noted to be hypotensive, tachycardic, tachypneic, and intubated on mechanical ventilation. Overnight, status post emergent hemodialysis for acute renal failure, uremia, hyperkalemia and significant metabolic acidosis, seen by renal consult, currently on IV bicarbonate drip plus Levophed to maintain mean arterial pressure more than 65, sedated on Versed drip, intubated on mechanical ventilation on AC/PRvC, rate 14, tidal volume 450,IO2_ 50%, observed rate 28, minute ventilation 12.8 L, saturating 100%, peak airway pressure of 19, mean airway pressure 12, and end-tidal CO2 10. Remains sedated on versed drip , responds to painful stimuli. OBJECTIVE: VITAL SIGNS: Temperature T-max 99.6, heart rate 114 to 162, irregular, telemetry atrial flutter, blood pressure 88/50 with mean arterial pressure 68. HEAD, EYES, EARS, NOSE AND THROAT: Pupils are reactive. Conjunctivae pink. Sclerae white. Endotracheal tube in place. No secretion noted. HEART: Rhythm irregular. No audible murmur. LUNGS: Clear to auscultation. ABDOMEN: Bowel sounds present. Soft. Mild diffuse tenderness. EXTREMITIES: Trace edema. DP palpable. No palpable cord. NEUROLOGIC: Sedated on Diprivan drip at 1 mg per hour. CURRENT MEDICATIONS: Include vancomycin 1 g IV daily, meropenem 500 mg IV every 8 hours, Flagyl 500 mg IV every 8 hours, Zithromax 500 mg IV daily, aspirin 81 mg daily, Lipitor 40 mg daily, Accu-Chek with regular insulin coverage, heparin 5000 units subcutaneously every 8 hours, status post mannitol 12.5 g IV every 15 minutes, midazolam drip, Levophed at 4 mg in 250 at 15 mL/hour, phenylephrine 10 mg in 250 at 30 mL per hour, sodium bicarbonate with dextrose at 200 mL/hour. LABORATORY DATA: WBC 23.3, hemoglobin 9.9, hematocrit 32.1, platelet count 536, neutrophils 97.7, and lymphocytes 1.3. PT 12.3, INR 1.1, and PTT 21.5. ABG; pH 7.32, pCO2 of 21, pO2 of 250, oxygen saturation 99.5 on AC/PRBC of 14, 450, and 50%. SMA-7; sodium 137, potassium 6.2, chloride 95, CO2 of 6, blood urea nitrogen 146, creatinine 15.4, and random glucose of 454. Blood culture, no growth reported. Chest x-ray, endotracheal tube in place. No pleural effusion. No pneumothorax, no acute infiltrate. IMPRESSION AND PLAN: 1. Neurologic: Sedated, on Diprivan drip to possible septic metabolic encephalopathy. Continue Versed to facilitate mechanical ventilation. 2. Pulmonary: Hypoxic respiratory failure. Continue ventilator support with Versed drip to make comfortable. 3. Cardiac: Hypotension related to sepsis and hypovolemia, status post 3 L of IV fluid resuscitation in the emergency room and noted to have significant renal failure with markedly elevated BUN and creatinine. 4. Infectious Disease: Sepsis, source gastrointestinal and/or urinary tract, history of bilateral renal stents for bilateral hydronephrosis noted to have pus on attempt to insert Adams, Adams could not be inserted, awaiting urology evaluation for change of stents and/or to put a new Adams to decompress obstructive uropathy. 5. Renal: Acute renal failure with metabolic acidosis, hyperkalemia, status post emergent hemodialysis for 2 hours to follow dialysis today as per renal note. Continue D5W with sodium bicarbonate at 200 mL/hour. 6. Gastrointestinal: We will hold feeding, monitor blood sugar. 7. Endocrine: History of diabetes mellitus type 2, hold oral antidiabetic agents, start on insulin drip to maintain blood sugar below 180 mg. Continue deep venous thrombosis and gastrointestinal prophylaxis. Follow up infectious disease consult for sepsis related to gastrointestinal and/or urinary tract obstruction with obstructive uropathy and related sepsis. Keep head of bed 30 degrees up. DNR as per family request Anil Mendes MD [facility] # [id number]
[2017-10-22] MEDS: Meropenem 500 MG in Sodium Chloride 0.9% 100 ML IVPB SCH ×3 (00:25→16:48)
[2017-10-22] MEDS: metroNIDAZOLE 500mg/100ml NS 100 ML IVPB SCH ×3 (00:26→16:46)
[2017-10-22 04:12] LABS: ABG ALLEN TEST YES; ARTERIAL BLOOD GAS HCO3 23.8 mmol/L (21-28); ARTERIAL BLOOD GAS HEMOGLOBIN 7.8 g/dL (11.7-17.4); ARTERIAL BLOOD GAS O2 CAPACITY 11.4 mL/dL (16-24); ARTERIAL BLOOD GAS O2 CONTENT 11.5 ML/dL (15-23); ARTERIAL BLOOD GAS O2 SAT 100.7 % (95-98); ARTERIAL BLOOD GAS PCO2 31 mm/Hg (35-45); ARTERIAL BLOOD GAS PH 7.46 (7.35-7.45); ARTERIAL BLOOD GAS PO2 252 mm/Hg (80-100)
[2017-10-22 07:11] LABS: BASO % 0.1 % (0.0-2.0); EOS % 0.1 % (0.0-4.0); LYMPH # 0.8 K/uL (1.0-4.3); LYMPH % 2.6 % (20.0-40.0); MEAN CELL VOLUME 83.1 fl (81.0-99.0); MEAN CORPUSCULAR HEMOGLOBIN 27.1 pg (27.0-31.0); MEAN CORPUSCULAR HGB CONC 32.7 g/dL (33.0-37.0); MEAN PLATELET VOLUME 7.3 fl (7.2-11.7); MONO # 1.4 K/uL (0.0-0.8); MONO % 4.6 % (0.0-10.0); NEUT # 29.1 K/uL (1.8-7.0); NEUT % 92.6 % (50.0-75.0); PLATELET COUNT 315 K/uL (130-400); RED CELL DISTRIBUTION WIDTH 15.1 % (11.5-14.5); WHITE BLOOD COUNT 31.4 K/uL (4.8-10.8)
[2017-10-22 07:15] LABS: HEMOGLOBIN 7.9 g/dL (12.0-16.0)
[2017-10-22 08:03] LABS: ALBUMIN 2.7 g/dL (3.5-5.0); CALCIUM 7.1 mg/dL (8.4-10.2)
[2017-10-22] MEDS: Azithromycin 500 MG in Sodium Chloride 0.9% 250 ML IVPB SCH (08:43)
[2017-10-22 09:14] LABS: ANISOCYTOSIS MODERATE; BANDS 2 % (0-2); HYPOCHROMIC SLIGHT; LARGE PLATELETS PRESENT; LYMPHOCYTE 4 % (20-50); MICROCYTOSIS MODERATE; MONOCYTE 4 % (0-10); NEUTROPHIL 88 % (42-75); OVALOCYTES SLIGHT; PLATELET ESTIMATE NORMAL (NORMAL); POIKILOCYTOSIS SLIGHT; POLYCHROMIC SLIGHT; REACTIVE LYMPHOCYTES 2 % (0-0); TARGET CELLS SLIGHT; TOTAL CELLS COUNTED 100
--- NOTE | 2017-10-22 09:48 | PN ---
DATE: 10/22/2017 CRITICAL CARE PROGRESS NOTE SUBJECTIVE: The patient in ICU, bed 421. Time spent 40 minutes. The patient is seen and evaluated at the bedside. Past medical, surgical, social and family history reviewed. Events since admission noted. A 77-year-old female with diabetes mellitus type 2, hypertension, chronic kidney disease, bilateral hydronephrosis status post bilateral ureteral stents recently exchanged in September during September admission. Positive for C. diff, re-admitted with sepsis, septic shock, and acute renal failure associated with acute tubular necrosis. Overnight status post emergent hemodialysis for acute renal failure, uremia, hyperkalemia, and significant metabolic acidosis, intubated on mechanical ventilation, hypotensive on phenylephrine and Levophed, phenylephrine discontinued early this morning. On AC/PRVC rate of 14, tidal volume of 450, FiO2 50%, observed rate 23, observed tidal volume of 480, minute ventilation 8.3 liters, peak airway pressure of 20, end-tidal CO2 of 60, sedated on Versed drip at 1 mg/hour. Wakeful on discontinuing the sedation. OBJECTIVE: VITAL SIGNS: Temperature of 97.2, heart rate of 107 and regular, blood pressure of 129/69, and mean arterial pressure of 89. INTAKE AND OUTPUT: Intake and output 6052. No urine output, status post hemodialysis yesterday. HEENT: Pupils are reactive. Conjunctivae pale. Sclerae white. Endotracheal tube in place. No secretion noted. CHEST: Bilateral breath sounds. Clear to auscultation anteriorly and laterally. HEART: Rhythm regular. S1 and S2 normal. No audible murmur. ABDOMEN: Bowel sounds present. Soft. Mild tenderness. EXTREMITIES: Trace edema. No palpable cord. DP palpable. Capillary refill less than 2 seconds. SKIN: Without rash. NEUROLOGIC: Sedated on Diprivan. CURRENT MEDICATIONS: Aspirin 81 mg daily, Lipitor 40 mg daily, azithromycin 400 mg IV daily, vancomycin 1 g IV x1 dose, metronidazole 500 mg every 8 hours, meropenem 500 mg IV every 8 hours, Levophed at 7.5 mcg/minute, Protonix 40 IV daily, insulin drip titrating to blood sugar less than 180 , and heparin 5000 Units subcu every 8 hours. LABORATORY DATA: WBC 31.4, hemoglobin 7.9, hematocrit 24.1, and platelet count 315,000. ABG; pH of 7.46, pCO2 of 31, pO2 of 252, and oxygen saturation 100.7 on AC/PRVC rate of 14, 450, 50%, and PEEP of 5. SMA-7; sodium 140, potassium 3.3, chloride 94, CO2 22, blood urea nitrogen 65, calcium 7.1, phosphorus 4.1, magnesium 1.7, AST 43, ALT 30, alkaline phosphatase 95, total protein 5.3, albumin 2.7, and random alcohol level 7. Serology none reported. Blood culture, no growth reported. CHEST X-RAY: Endotracheal tube in place. TLC in place. Mild pulmonary vascular congestion, no pneumothorax. IMPRESSION AND PLAN: 1. Neuro: Septic metabolic encephalopathy, sedated on Versed drip. Plan to wean off the sedation to . 2. Pulmonary: Hypoxic respiratory failure, reduce FiO2 as tolerated. Maintain pO2 of 70 or above. Oxygen saturation 94% and above. 3. Cardiac: Hypotension associated with sepsis, improved. Wean off the pressors as tolerated to maintain mean arterial pressure of 65 and above. 4. Infectious disease: Sepsis, source urinary tract, probably infected. Ureteral stents. Noted diverticulitis, history of Clostridium difficile during admission in September 2017. Continue current antibiotics as recommended by ID. Followup Urology consult for change ureteral stent. 5. Renal - acute renal failure associated with acute tubular necrosis from sepsis, continue hemodialysis as per Renal consult off the bicarb drip now. 6. Endocrine: Diabetes mellitus type 2 controlled, keep blood sugar below 180. Continue insulin drip. 7. Gastrointestinal prophylaxis: We will start feeding with diabetic source at 10 mL per hour. 8. Continue deep vein thrombosis prophylaxis: Keep the head of bed 30 degrees up. Urology followup for insertion of Adams catheter for adequate urine output. 9. Currently DNR as per the patient's family request. Anil Mendes MD
--- NOTE | 2017-10-22 10:17 | CP.PCM.PN ---
Subjective - Date & Time of Evaluation Date of Evaluation: 10/22/17 Time of Evaluation: 09:30 - Subjective Subjective: Pt seen and examined at bedside resting with ventilator support. Currently responsive to painful stimuli when blood glucose was measured. Objective - Vital Signs/Intake and Output Vital Signs (last 24 hours): Temp Pulse Resp BP Pulse Ox 97.2 F L 107 H 20 129/69 100 10/22/17 04:00 10/22/17 06:42 10/22/17 06:42 10/22/17 06:42 10/22/17 06:42 Intake and Output: 10/22/17 10/22/17 06:59 18:59 Intake Total 753 2 Balance 753 2 - Medications Medications: Current Medications Aspirin (Ecotrin) 81 mg PO DAILY [facility] Last Admin: 10/21/17 08:49 Dose: 81 mg Atorvastatin Calcium (Lipitor) 40 mg PO QPM [facility] Last Admin: 10/21/17 17:21 Dose: Not Given Dextrose (Dextrose 50% Inj) 0 ml IV STAT PRN; Protocol PRN Reason: Hypoglycemia Protocol Dextrose (Glutose 15) 0 gm PO ONCE PRN; Protocol PRN Reason: Hypoglycemia Protocol Dextrose (Dextrose 50% Inj) 0 ml IV STAT PRN; Protocol PRN Reason: Hypoglycemia Protocol Dextrose (Glutose 15) 0 gm PO ONCE PRN; Protocol PRN Reason: Hypoglycemia Protocol Glucagon (Glucagen Diagnostic Kit) 0 mg IM STAT PRN; Protocol PRN Reason: Hypoglycemia Protocol Glucagon (Glucagen Diagnostic Kit) 0 mg IM STAT PRN; Protocol PRN Reason: Hypoglycemia Protocol Heparin Sodium (Porcine) (Heparin) 5,000 units SC Q8 [facility] PRN Reason: Protocol Last Admin: 10/22/17 08:21 Dose: 5,000 units Azithromycin 500 mg/ Sodium (Chloride) 250 mls @ 250 mls/hr IVPB DAILY [facility] PRN Reason: Protocol Last Admin: 10/22/17 08:43 Dose: 250 mls/hr Metronidazole (Flagyl 500mg/100ml Ns) 100 mls @ 100 mls/hr IVPB Q8 [facility] PRN Reason: Protocol Last Admin: 10/22/17 08:16 Dose: 100 mls/hr Meropenem 500 mg/ Sodium (Chloride) 100 mls @ 100 mls/hr IVPB Q8 [facility] PRN Reason: Protocol Last Admin: 10/22/17 08:25 Dose: 100 mls/hr Insulin Human Regular 100 (units/ Sodium Chloride) 101 mls @ 2.02 mls/hr IV .Q24H [facility]; 2 UNITS/HR PRN Reason: Protocol Last Titration: 10/22/17 07:30 Dose: 2 units/hr, 2.02 mls/hr Norepinephrine Bitartrate 4 mg (/ Dextrose) 254 mls @ 28.57 mls/hr IV .Q8H54M [facility]; 7.5 MCG/MIN PRN Reason: Protocol Last Admin: 10/22/17 01:32 Dose: 7.5 mcg/min, 28.57 mls/hr Vancomycin HCl 1 gm/ Sodium (Chloride) 250 mls @ 125 mls/hr IVPB DAILY [facility] PRN Reason: Protocol Last Admin: 10/22/17 09:21 Dose: 125 mls/hr Mannitol (Mannitol) 12.5 gm IV Q15MIN [facility] Stop: 10/24/17 15:16 Pantoprazole Sodium (Protonix Inj) 40 mg IVP DAILY [facility] Last Admin: 10/22/17 09:22 Dose: 40 mg - Labs Labs: 10/22/17 06:00 10/22/17 06:00 PT 12.3 Seconds (9.8-13.1) 10/20/17 19:46 INR 1.1 (0.9-1.2) 10/20/17 19:46 APTT 33.2 Seconds (25.6-37.1) D 10/21/17 04:18 - Constitutional Appears: Other (Sedated under ventilator support. ) - Respiratory Exam Respiratory Exam: Clear to Ausculation Bilateral (Ventilator). absent: Wheezes - Cardiovascular Exam Cardiovascular Exam: +S1, +S2, Murmur (systolic) - GI/Abdominal Exam GI & Abdominal Exam: Soft Assessment and Plan - Assessment and Plan (Free Text) Plan: 77yo F with PMHx uncontrolled IDDM2, HTN, CKD4, Hydronephrosis s/p bilateral stenting, chronic kidney disease (Dialysis) admitted with septic shock. Plan: c/w IV abx, ventilator. Prognosis guarded. Currently DNR Septic shock -improved -mechanical ventilation: sedated with Versed drip; plan to wean -Blood culture: no growth after 24 hrs -f/u urine culture: pending -Technical Engineer on consult, Recommendations appreciated: pressors weaned 2/2 improved bp -On Broad spectrum antibiotics: Vancomycin (Random trough: 7.0), Meropenem, Azithromycin, Metronidazole -f/u c.diff Acute Kidney Injury on CKD -improving BUN/Cr -Nephrology on consult Dr. Garcia. Recommendations are appreciated: HD on 2017 -General surgery on consult: recommendations appreciated; pt had HD 10/21/2017 [place]: high anion gap metabolic acidosis -sodium bicarbonate -s/p HD Anemia -H/H: 7.9/24.1 -likely 2/2 s/p 3 L fluid; dilution -T&S -f/u CBC; will consider Iron H/O Hydronephrosis s/p bilateral stenting -Urology on Consult. Dr. Valentine. Recommendations are appreciated -bladder scan Diverticulitis -started flagyl -General surgery on consult Hypertension -Hold home BP meds for now 2/2 septic shock Diabetes Mellitus type 2 -hold home PO meds; may consider SQ -accucheck -insulin coverage by protocol -hypoglycemic protocol DVT prophylaxis -Heparin SC Code Status: DNR: Documentation reviewed: Status was discussed with family via Dr. Garcia and made aware by Dr. Mendes. Discuss with PMD for possible family meeting. Palliative care consulted.
--- NOTE | 2017-10-22 11:56 | RAD ---
HISTORY: intubated COMPARISON: 10/21/2017 FINDINGS: LUNGS: No active pulmonary disease. PLEURA: No significant pleural effusion identified, no pneumothorax apparent. CARDIOVASCULAR: Normal. OSSEOUS STRUCTURES: No significant abnormalities. VISUALIZED UPPER ABDOMEN: Normal. OTHER FINDINGS: ETT above the carinal. NG tube below the stomach. IMPRESSION: Tubes in place as discussed above.
[2017-10-22 12:24] LABS: HEPATITIS B SURFACE AG Negative (NEGATIVE)
[2017-10-22 12:35] LABS: HEPATITIS B CORE AB NEGATIVE (NEGATIVE)
[2017-10-22 12:42] LABS: HEPATITIS C ANTIBODY NEGATIVE (NEGATIVE)
--- NOTE | 2017-10-22 18:52 | CP.PCM.PN ---
Subjective - Date & Time of Evaluation Date of Evaluation: 10/22/17 Time of Evaluation: 19:00 - Subjective Subjective: 77 yo F w/ pmh of htn, dm, CKD IV w/ bilateral hydronephrosis and b/l ureteral stents, admitted with septic shock, acute renal failure; Nursing staff reporting urine output with wet sheets multiple times on day shift (no clay); off phenylephrine and with levophed dose decreased; Objective - Vital Signs/Intake and Output Vital Signs (last 24 hours): Temp Pulse Resp BP Pulse Ox 97.9 F 100 H 20 109/45 L 100 10/22/17 16:58 10/22/17 18:00 10/22/17 18:00 10/22/17 18:00 10/22/17 18:00 Intake and Output: 10/22/17 10/22/17 06:59 18:59 Intake Total 753 1438 Output Total 2 Balance 753 1436 - Medications Medications: Current Medications Aspirin (Ecotrin) 81 mg PO DAILY [facility] Last Admin: 10/21/17 08:49 Dose: 81 mg Atorvastatin Calcium (Lipitor) 40 mg PO QPM [facility] Last Admin: 10/21/17 17:21 Dose: Not Given Dextrose (Dextrose 50% Inj) 0 ml IV STAT PRN; Protocol PRN Reason: Hypoglycemia Protocol Dextrose (Glutose 15) 0 gm PO ONCE PRN; Protocol PRN Reason: Hypoglycemia Protocol Dextrose (Dextrose 50% Inj) 0 ml IV STAT PRN; Protocol PRN Reason: Hypoglycemia Protocol Dextrose (Glutose 15) 0 gm PO ONCE PRN; Protocol PRN Reason: Hypoglycemia Protocol Glucagon (Glucagen Diagnostic Kit) 0 mg IM STAT PRN; Protocol PRN Reason: Hypoglycemia Protocol Glucagon (Glucagen Diagnostic Kit) 0 mg IM STAT PRN; Protocol PRN Reason: Hypoglycemia Protocol Heparin Sodium (Porcine) (Heparin) 5,000 units SC Q8 [facility] PRN Reason: Protocol Last Admin: 10/22/17 16:46 Dose: 5,000 units Azithromycin 500 mg/ Sodium (Chloride) 250 mls @ 250 mls/hr IVPB DAILY [facility] PRN Reason: Protocol Last Admin: 10/22/17 08:43 Dose: 250 mls/hr Metronidazole (Flagyl 500mg/100ml Ns) 100 mls @ 100 mls/hr IVPB Q8 [facility] PRN Reason: Protocol Last Admin: 10/22/17 16:46 Dose: 100 mls/hr Meropenem 500 mg/ Sodium (Chloride) 100 mls @ 100 mls/hr IVPB Q8 [facility] PRN Reason: Protocol Last Admin: 10/22/17 16:48 Dose: 100 mls/hr Insulin Human Regular 100 (units/ Sodium Chloride) 101 mls @ 2.02 mls/hr IV .Q24H [facility]; 2 UNITS/HR PRN Reason: Protocol Last Titration: 10/22/17 18:30 Dose: 0 units/hr, 0 mls/hr Norepinephrine Bitartrate 4 mg (/ Dextrose) 254 mls @ 28.57 mls/hr IV .Q8H54M [facility]; 7.5 MCG/MIN PRN Reason: Protocol Last Admin: 10/22/17 01:32 Dose: 7.5 mcg/min, 28.57 mls/hr Vancomycin HCl 1 gm/ Sodium (Chloride) 250 mls @ 125 mls/hr IVPB DAILY [facility] PRN Reason: Protocol Last Admin: 10/22/17 09:21 Dose: 125 mls/hr Mannitol (Mannitol) 12.5 gm IV Q15MIN [facility] Stop: 10/24/17 15:16 Pantoprazole Sodium (Protonix Inj) 40 mg IVP DAILY [facility] Last Admin: 10/22/17 09:22 Dose: 40 mg - Labs Labs: 10/22/17 06:00 10/22/17 06:00 PT 12.3 Seconds (9.8-13.1) 10/20/17 19:46 INR 1.1 (0.9-1.2) 10/20/17 19:46 APTT 33.2 Seconds (25.6-37.1) D 10/21/17 04:18 - Constitutional Appears: Non-toxic, No Acute Distress - Eye Exam Eye Exam: absent: Scleral icterus - ENT Exam ENT Exam: Mucous Membranes Moist - Respiratory Exam Respiratory Exam: Clear to Ausculation Bilateral. absent: Respiratory Distress - Cardiovascular Exam Cardiovascular Exam: RRR, +S1, +S2. absent: Gallop - GI/Abdominal Exam GI & Abdominal Exam: Soft. absent: Distended - Exam Exam: absent: Bladder Distension - Extremities Exam Additional comments: minimal leg edema; edematous hands b/l; - Neurological Exam Additional comments: moving b/l lower ext; slightly arousable to verbal stimuli; - Psychiatric Exam Psychiatric exam: absent: Agitated - Skin Skin Exam: Warm. absent: Cyanosis Assessment and Plan (1) Acute renal failure Assessment & Plan: ATN in the setting of septic shock; now with urine output but unable to quantify ; mild hypokalemia s/p HD yesterday and with patient on insulin drip; metabolic acidosis much improved overall; stable FIO2 requirement (40% on vent) with CXR clear; no urgent indication for HD today, planning for full HD session tomorrow; -avoid nephrotoxic insults -need clay to quantify urine output -starting gentle IVF w/ NS at 75 cc/hr -replenishing 40 meq KCl today Status: Acute (2) Metabolic acidosis Assessment & Plan: In the setting of NINA and septic shock; see above, will continue correction with HD; Status: Acute (3) Hyperkalemia Assessment & Plan: Now mild hypokalemia, see above; Status: Resolved (4) Septic shock Assessment & Plan: Overall much improved hemodynamic status; on multiple abx, should dose vanco after HD tomorrow; Status: Acute
[2017-10-22] MEDS ORDERED: Sodium Chloride 0.9% 1,000 ML IV SCH (19:15)
[2017-10-22 20:58] LABS: HEMOGLOBIN 7.7 g/dL (12.0-16.0); MEAN CELL VOLUME 84.6 fl (81.0-99.0); MEAN CORPUSCULAR HEMOGLOBIN 27.1 pg (27.0-31.0); RBC 2.83 Mil/uL (3.80-5.20); RED CELL DISTRIBUTION WIDTH 15.7 % (11.5-14.5); WHITE BLOOD COUNT 30.1 K/uL (4.8-10.8)
[2017-10-22] MEDS ORDERED: Midazolam 50 MG in Sodium Chloride 0.9% 90 ML IV ONE (21:24)
[2017-10-22 21:51] LABS: CALCIUM 7.1 mg/dL (8.4-10.2)
[2017-10-23] MEDS: Potassium Chloride 20 mEq 100 ML IVPB SCH ×2 (01:34→03:30)
[2017-10-23] MEDS: metroNIDAZOLE 500mg/100ml NS 100 ML IVPB SCH ×3 (01:34→17:20)
[2017-10-23] MEDS: Meropenem 500 MG in Sodium Chloride 0.9% 100 ML IVPB SCH ×3 (01:42→17:23)
[2017-10-23 05:31] LABS: ABG ALLEN TEST YES; ARTERIAL BLOOD GAS HCO3 17.5 mmol/L (21-28); ARTERIAL BLOOD GAS HEMOGLOBIN 8.6 g/dL (11.7-17.4); ARTERIAL BLOOD GAS O2 CAPACITY 12.3 mL/dL (16-24); ARTERIAL BLOOD GAS O2 CONTENT 12.3 ML/dL (15-23); ARTERIAL BLOOD GAS O2 SAT 99.9 % (95-98); ARTERIAL BLOOD GAS PCO2 27 mm/Hg (35-45); ARTERIAL BLOOD GAS PH 7.35 (7.35-7.45); ARTERIAL BLOOD GAS PO2 196 mm/Hg (80-100); ARTERIAL BLOOD GAS TCO2 15.7 mmol/L (22-28)
[2017-10-23 05:41] LABS: HEMOGLOBIN 8.4 g/dL (12.0-16.0); MEAN CELL VOLUME 84.3 fl (81.0-99.0); MEAN CORPUSCULAR HEMOGLOBIN 26.8 pg (27.0-31.0); MEAN CORPUSCULAR HGB CONC 31.8 g/dL (33.0-37.0); RBC 3.14 Mil/uL (3.80-5.20); WHITE BLOOD COUNT 32.3 K/uL (4.8-10.8)
[2017-10-23 06:16] LABS: ALBUMIN 2.5 g/dL (3.5-5.0); CALCIUM 7.5 mg/dL (8.4-10.2)
[2017-10-23] MEDS ORDERED: Midazolam 5 MG/ML 50 MG in Sodium Chloride 0.9% 90 ML IV ONE ×2 (07:00→16:30)
--- NOTE | 2017-10-23 07:32 | CP.CCUPN ---
CCU Subjective - Physician Review Subjective (Free Text): 10/23/17 16:23 The patient was Seen/interviewed and examined by me at the bedside during ICU round, Medical records reviewed and Management issues were discussed and formulated with the house staff. Events reviewed Critically sick, orally intubated and mechanically ventilated. On versed drip, undergoing sedation vacation PRVC AC12 TV450 FiO2 40% PEEP5. Resp nonlabored, few spontaneous resp noted. Not tolerating CPAP trial, On Vasopressors, with Levophed (Off Hubert) Last 24H I&O 2270/4, Pt incontinent Scheduled for HD today Afebrile, NSR on the monitor Blood cx- neg Adams placed today, urology consult called Critical Care Time Spent (in minutes): 55 CCU Objective - Vital Signs / Intake & Output Vital Signs (Last 4 hours): Vital Signs Temp Pulse Resp BP Pulse Ox 10/23/17 06:00 104 H 25 H 91/54 L 100 10/23/17 05:00 100 H 20 95/54 L 99 10/23/17 04:00 97.6 F 109 H 24 101/59 L 98 Intake and Output (Last 8hrs): Intake & Output 10/22/17 10/23/17 10/23/17 22:59 06:59 14:59 Intake Total 560 412 Output Total 2 Balance 560 410 Intake: IV 257 312 Intake, Piggyback 303 100 Output: Urine/Stool Mix 2 Other: # Voids Urine, Voided 1 - Physical Exam Physical Exam Limitations: Positive for: Altered Mental Status, Clinical Condition Head: Positive for: Atraumatic, Normocephalic. Negative for: Tenderness, Contusion Pupils: Positive for: PERRL. Negative for: Sluggish, Non-Reactive, Pinpoint Extroacular Muscles: Positive for: EOMI. Negative for: Gaze Palsy, Entrapment Conjunctiva: Positive for: Normal. Negative for: Injected, Icteric Ears: Positive for: Normal Mouth: Positive for: Moist Mucous Membranes Pharnyx: Positive for: Normal Nose (Internal): Positive for: Normal Inspection, No Active Bleeding Neck: Positive for: Normal Range of Motion, Trachea Midline. Negative for: Meningeal Signs, MIDLINE TENDERNESS, Paraspinal Tenderness, JVD, Lymphadenopathy , Bruit, Other Respiratory/Chest: Positive for: Decreased Breath Sounds, Rales, Rhonchi. Negative for: Respiratory Distress, Accessory Muscle Use, Wheezes, Tachypneic Cardiovascular: Positive for: Regular Rate and Rhythm, Normal S1, S2, Peripheal Pulses Present. Negative for: Murmurs, Irregular Rhythm, Tachycardic, Bradycardic Abdomen: Positive for: Distention, Normal Bowel Sounds. Negative for: Tenderness Psychiatric: Positive for: Other (Patient sedated and orally intubated) - Medications Active Medications: Active Medications Generic Name Dose Route Start Last Admin Trade Name Freq PRN Reason Stop Dose Admin Aspirin 81 mg 10/21/17 09:00 10/21/17 08:49 Ecotrin PO 81 mg DAILY [place] Administration Atorvastatin Calcium 40 mg 10/21/17 18:00 10/21/17 17:21 Lipitor PO Not Given QPM [place] Dextrose 0 ml 10/21/17 00:29 Dextrose 50% Inj IV STAT PRN Hypoglycemia Protocol Protocol Dextrose 0 gm 10/21/17 00:29 Glutose 15 PO ONCE PRN Hypoglycemia Protocol Protocol Dextrose 0 ml 10/21/17 11:45 Dextrose 50% Inj IV STAT PRN Hypoglycemia Protocol Protocol Dextrose 0 gm 10/21/17 11:45 Glutose 15 PO ONCE PRN Hypoglycemia Protocol Protocol Epoetin Axel 10,000 unit 10/23/17 09:00 Procrit [place] [facility] [place] Glucagon 0 mg 10/21/17 00:29 Glucagen Diagnostic Kit IM STAT PRN Hypoglycemia Protocol Protocol Glucagon 0 mg 10/21/17 11:45 Glucagen Diagnostic Kit IM STAT PRN Hypoglycemia Protocol Protocol Heparin Sodium (Porcine) 5,000 units 10/21/17 09:00 10/23/17 01:41 Heparin SC Not Given Q8 [place] Protocol Azithromycin 500 mg/ Sodium 250 mls @ 250 mls/hr 10/21/17 09:00 10/22/17 08: 43 Chloride IVPB 250 mls/hr DAILY [place] Administration Protocol Metronidazole 100 mls @ 100 mls/hr 10/21/17 09:00 10/23/17 01:34 Flagyl 500mg/100ml Ns IVPB 100 mls/hr Q8 [place] Administration Protocol Meropenem 500 mg/ Sodium 100 mls @ 100 mls/hr 10/21/17 10:19 10/23/17 01:42 Chloride IVPB 100 mls/hr Q8 [place] Administration Protocol Insulin Human Regular 100 101 mls @ 2.02 mls/hr 10/21/17 11:45 10/23/17 04:45 units/ Sodium Chloride IV 2.97 units/hr .Q24H [place] 3 mls/hr Protocol Titration 2 UNITS/HR Vancomycin HCl 1 gm/ Sodium 250 mls @ 125 mls/hr 10/22/17 09:15 10/22/17 09: 21 Chloride IVPB 125 mls/hr DAILY [place] Administration Protocol Sodium Bicarbonate 75 meq/ 1,075 mls @ 75 mls/hr 10/23/17 06:45 Sodium Chloride IV 10/24/17 06:40 .[id number] [place] Norepinephrine Bitartrate 4 mg 254 mls @ 20.95 mls/hr 10/23/17 06:45 / Dextrose IV .[id number] [place] Protocol 5.5 MCG/MIN Midazolam HCl 50 mg/ Sodium 100 mls @ 8 mls/hr 10/23/17 07:00 10/23/17 07:02 Chloride IV 10/23/17 19:29 9 mg/hr .[id number] ONE 18 mls/hr Protocol Administration 4 MG/HR Mannitol 12.5 gm 10/21/17 15:15 Mannitol IV 10/24/17 15:16 Q15MIN [place] Pantoprazole Sodium 40 mg 10/22/17 09:00 10/22/17 09:22 Protonix Inj IVP 40 mg DAILY [place] Administration - Patient Studies Lab Studies: Microbiology Studies 10/20/17 20:00 Blood Culture - Preliminary Blood NO GROWTH AFTER 48 HOURS 10/20/17 19:46 Blood Culture - Preliminary Blood NO GROWTH AFTER 48 HOURS 10/21/17 14:48 Blood Culture - Preliminary Blood-Venous NO GROWTH AFTER 24 HOURS 10/21/17 15:40 Blood Culture - Preliminary Blood-Venous NO GROWTH AFTER 24 HOURS 10/20/17 10:30 MRSA Culture (Admit) - Final Naris MRSA NOT DETECTED Lab Studies 10/23/17 10/23/17 10/23/17 Range/Units 06:27 05:22 04:50 WBC (4.8-10.8) K/uL RBC (3.80-5.20) Mil/uL Hgb (12.0-16.0) g/dL Hct (34.0-47.0) % MCV (81.0-99.0) fl MCH (27.0-31.0) pg MCHC (33.0-37.0) g/dL RDW (11.5-14.5) % Plt Count (130-400) K/uL Neutrophils % (Manual) (42-75) % Band Neutrophils % (0-2) % Lymphocytes % (Manual) (20-50) % Reactive Lymphs % (0-0) % Monocytes % (Manual) (0-10) % Platelet Estimate (NORMAL) Large Platelets Polychromasia Hypochromasia (manual) Poikilocytosis (manual Anisocytosis (manual) Microcytosis (manual) Target Cells Ovalocytes pCO2 27 L (35-45) mm/Hg pO2 196 H (80-100) mm/Hg HCO3 17.5 L (21-28) mmol/L ABG pH 7.35 (7.35-7.45) ABG Total CO2 15.7 L (22-28) mmol/L ABG O2 Saturation 99.9 H (95-98) % ABG O2 Content 12.3 L (15-23) ML/dL ABG Base Excess -9.6 L (-2.0-3.0) mmol/L ABG Hemoglobin 8.6 L (11.7-17.4) g/dL ABG Carboxyhemoglobin 0.9 (0.5-1.5) % POC ABG HHb (Measured) 0.1 (0.0-5.0) % ABG Methemoglobin 1.0 (0.0-3.0) % ABG O2 Capacity 12.3 L (16-24) mL/dL Arnoldo Test Yes A-a O2 Difference 55.0 mm/Hg Hgb O2 Saturation 98.1 H (95.0-98.0) % Vent Mode Prvc/ac Mechanical Rate 12 FiO2 40.0 % Tidal Volume 450 PEEP 5 Sodium (132-148) mmol/l Potassium (3.6-5.0) MMOL/L Chloride (98-107) mmol/L Carbon Dioxide (22-30) mmol/L Anion Gap (10-20) BUN (7-17) mg/dl Creatinine (0.7-1.2) mg/dl Est GFR ( Amer) Est GFR (Non-Af Amer) POC Glucose (mg/dL) 219 H 202 H (65-110) mg/dL Random Glucose (65-105) mg/dL Calcium (8.4-10.2) mg/dL Phosphorus (2.5-4.5) mg/dl Magnesium (1.6-2.3) MG/DL Total Bilirubin (0.2-1.3) mg/dl AST (14-36) U/L ALT (9-52) U/L Alkaline Phosphatase (38-126) U/L Total Protein (6.3-8.2) G/DL Albumin (3.5-5.0) g/dL Globulin (2.2-3.9) gm/dL Albumin/Globulin Ratio (1.0-2.1) Hep Bs Antigen (NEGATIVE) Hep Bs Antibody (NEGATIVE) Hep B Core IgM Ab (NEGATIVE) Hepatitis C Antibody (NEGATIVE) Blood Type Antibody Screen BBK History Checked 10/23/17 10/23/17 10/23/17 Range/Units 04:20 04:20 02:31 WBC 32.3 H (4.8-10.8) K/uL RBC 3.14 L (3.80-5.20) Mil/uL Hgb 8.4 L (12.0-16.0) g/dL Hct 26.5 L (34.0-47.0) % MCV 84.3 (81.0-99.0) fl MCH 26.8 L (27.0-31.0) pg MCHC 31.8 L (33.0-37.0) g/dL RDW 16.0 H (11.5-14.5) % Plt Count 285 (130-400) K/uL Neutrophils % (Manual) (42-75) % Band Neutrophils % (0-2) % Lymphocytes % (Manual) (20-50) % Reactive Lymphs % (0-0) % Monocytes % (Manual) (0-10) % Platelet Estimate (NORMAL) Large Platelets Polychromasia Hypochromasia (manual) Poikilocytosis (manual Anisocytosis (manual) Microcytosis (manual) Target Cells Ovalocytes pCO2 (35-45) mm/Hg pO2 (80-100) mm/Hg HCO3 (21-28) mmol/L ABG pH (7.35-7.45) ABG Total CO2 (22-28) mmol/L ABG O2 Saturation (95-98) % ABG O2 Content (15-23) ML/dL ABG Base Excess (-2.0-3.0) mmol/L ABG Hemoglobin (11.7-17.4) g/dL ABG Carboxyhemoglobin (0.5-1.5) % POC ABG HHb (Measured) (0.0-5.0) % ABG Methemoglobin (0.0-3.0) % ABG O2 Capacity (16-24) mL/dL Arnoldo Test A-a O2 Difference mm/Hg Hgb O2 Saturation (95.0-98.0) % Vent Mode Mechanical Rate FiO2 % Tidal Volume PEEP Sodium 140 (132-148) mmol/l Potassium 3.6 (3.6-5.0) MMOL/L Chloride 100 (98-107) mmol/L Carbon Dioxide 14 L (22-30) mmol/L Anion Gap 30 H (10-20) BUN 62 H (7-17) mg/dl Creatinine 7.6 H* (0.7-1.2) mg/dl Est GFR ( Amer) 6 Est GFR (Non-Af Amer) 5 POC Glucose (mg/dL) 172 H (65-110) mg/dL Random Glucose 205 H (65-105) mg/dL Calcium 7.5 L (8.4-10.2) mg/dL Phosphorus (2.5-4.5) mg/dl Magnesium (1.6-2.3) MG/DL Total Bilirubin 0.4 (0.2-1.3) mg/dl AST 35 (14-36) U/L ALT 34 (9-52) U/L Alkaline Phosphatase 91 (38-126) U/L Total Protein 5.1 L (6.3-8.2) G/DL Albumin 2.5 L (3.5-5.0) g/dL Globulin 2.6 (2.2-3.9) gm/dL Albumin/Globulin Ratio 1.0 (1.0-2.1) Hep Bs Antigen (NEGATIVE) Hep Bs Antibody (NEGATIVE) Hep B Core IgM Ab (NEGATIVE) Hepatitis C Antibody (NEGATIVE) Blood Type Antibody Screen BBK History Checked 10/23/17 10/22/17 10/22/17 Range/Units 00:25 22:33 20:31 WBC (4.8-10.8) K/uL RBC (3.80-5.20) Mil/uL Hgb (12.0-16.0) g/dL Hct (34.0-47.0) % MCV (81.0-99.0) fl MCH (27.0-31.0) pg MCHC (33.0-37.0) g/dL RDW (11.5-14.5) % Plt Count (130-400) K/uL Neutrophils % (Manual) (42-75) % Band Neutrophils % (0-2) % Lymphocytes % (Manual) (20-50) % Reactive Lymphs % (0-0) % Monocytes % (Manual) (0-10) % Platelet Estimate (NORMAL) Large Platelets Polychromasia Hypochromasia (manual) Poikilocytosis (manual Anisocytosis (manual) Microcytosis (manual) Target Cells Ovalocytes pCO2 (35-45) mm/Hg pO2 (80-100) mm/Hg HCO3 (21-28) mmol/L ABG pH (7.35-7.45) ABG Total CO2 (22-28) mmol/L ABG O2 Saturation (95-98) % ABG O2 Content (15-23) ML/dL ABG Base Excess (-2.0-3.0) mmol/L ABG Hemoglobin (11.7-17.4) g/dL ABG Carboxyhemoglobin (0.5-1.5) % POC ABG HHb (Measured) (0.0-5.0) % ABG Methemoglobin (0.0-3.0) % ABG O2 Capacity (16-24) mL/dL Arnoldo Test A-a O2 Difference mm/Hg Hgb O2 Saturation (95.0-98.0) % Vent Mode Mechanical Rate FiO2 % Tidal Volume PEEP Sodium (132-148) mmol/l Potassium (3.6-5.0) MMOL/L Chloride (98-107) mmol/L Carbon Dioxide (22-30) mmol/L Anion Gap (10-20) BUN (7-17) mg/dl Creatinine (0.7-1.2) mg/dl Est GFR ( Amer) Est GFR (Non-Af Amer) POC Glucose (mg/dL) 147 H 171 H 154 H (65-110) mg/dL Random Glucose (65-105) mg/dL Calcium (8.4-10.2) mg/dL Phosphorus (2.5-4.5) mg/dl Magnesium (1.6-2.3) MG/DL Total Bilirubin (0.2-1.3) mg/dl AST (14-36) U/L ALT (9-52) U/L Alkaline Phosphatase (38-126) U/L Total Protein (6.3-8.2) G/DL Albumin (3.5-5.0) g/dL Globulin (2.2-3.9) gm/dL Albumin/Globulin Ratio (1.0-2.1) Hep Bs Antigen (NEGATIVE) Hep Bs Antibody (NEGATIVE) Hep B Core IgM Ab (NEGATIVE) Hepatitis C Antibody (NEGATIVE) Blood Type Antibody Screen BBK History Checked 10/22/17 10/22/17 10/22/17 Range/Units 20:15 20:15 20:15 WBC 30.1 H (4.8-10.8) K/uL RBC 2.83 L (3.80-5.20) Mil/uL Hgb 7.7 L (12.0-16.0) g/dL Hct 23.9 L (34.0-47.0) % MCV 84.6 (81.0-99.0) fl MCH 27.1 (27.0-31.0) pg MCHC 32.0 L (33.0-37.0) g/dL RDW 15.7 H (11.5-14.5) % Plt Count 264 (130-400) K/uL Neutrophils % (Manual) (42-75) % Band Neutrophils % (0-2) % Lymphocytes % (Manual) (20-50) % Reactive Lymphs % (0-0) % Monocytes % (Manual) (0-10) % Platelet Estimate (NORMAL) Large Platelets Polychromasia Hypochromasia (manual) Poikilocytosis (manual Anisocytosis (manual) Microcytosis (manual) Target Cells Ovalocytes pCO2 (35-45) mm/Hg pO2 (80-100) mm/Hg HCO3 (21-28) mmol/L ABG pH (7.35-7.45) ABG Total CO2 (22-28) mmol/L ABG O2 Saturation (95-98) % ABG O2 Content (15-23) ML/dL ABG Base Excess (-2.0-3.0) mmol/L ABG Hemoglobin (11.7-17.4) g/dL ABG Carboxyhemoglobin (0.5-1.5) % POC ABG HHb (Measured) (0.0-5.0) % ABG Methemoglobin (0.0-3.0) % ABG O2 Capacity (16-24) mL/dL Arnoldo Test A-a O2 Difference mm/Hg Hgb O2 Saturation (95.0-98.0) % Vent Mode Mechanical Rate FiO2 % Tidal Volume PEEP Sodium 136 (132-148) mmol/l Potassium 3.2 L (3.6-5.0) MMOL/L Chloride 97 L (98-107) mmol/L Carbon Dioxide 16 L (22-30) mmol/L Anion Gap 26 H (10-20) BUN 65 H (7-17) mg/dl Creatinine 7.6 H* (0.7-1.2) mg/dl Est GFR ( Amer) 6 Est GFR (Non-Af Amer) 5 POC Glucose (mg/dL) (65-110) mg/dL Random Glucose 142 H (65-105) mg/dL Calcium 7.1 L (8.4-10.2) mg/dL Phosphorus (2.5-4.5) mg/dl Magnesium (1.6-2.3) MG/DL Total Bilirubin (0.2-1.3) mg/dl AST (14-36) U/L ALT (9-52) U/L Alkaline Phosphatase (38-126) U/L Total Protein (6.3-8.2) G/DL Albumin (3.5-5.0) g/dL Globulin (2.2-3.9) gm/dL Albumin/Globulin Ratio (1.0-2.1) Hep Bs Antigen (NEGATIVE) Hep Bs Antibody (NEGATIVE) Hep B Core IgM Ab (NEGATIVE) Hepatitis C Antibody (NEGATIVE) Blood Type A POSITIVE Antibody Screen Negative BBK History Checked Patient has bt 10/22/17 10/22/17 10/22/17 Range/Units 18:32 16:42 15:04 WBC (4.8-10.8) K/uL RBC (3.80-5.20) Mil/uL Hgb (12.0-16.0) g/dL Hct (34.0-47.0) % MCV (81.0-99.0) fl MCH (27.0-31.0) pg MCHC (33.0-37.0) g/dL RDW (11.5-14.5) % Plt Count (130-400) K/uL Neutrophils % (Manual) (42-75) % Band Neutrophils % (0-2) % Lymphocytes % (Manual) (20-50) % Reactive Lymphs % (0-0) % Monocytes % (Manual) (0-10) % Platelet Estimate (NORMAL) Large Platelets Polychromasia Hypochromasia (manual) Poikilocytosis (manual Anisocytosis (manual) Microcytosis (manual) Target Cells Ovalocytes pCO2 (35-45) mm/Hg pO2 (80-100) mm/Hg HCO3 (21-28) mmol/L ABG pH (7.35-7.45) ABG Total CO2 (22-28) mmol/L ABG O2 Saturation (95-98) % ABG O2 Content (15-23) ML/dL ABG Base Excess (-2.0-3.0) mmol/L ABG Hemoglobin (11.7-17.4) g/dL ABG Carboxyhemoglobin (0.5-1.5) % POC ABG HHb (Measured) (0.0-5.0) % ABG Methemoglobin (0.0-3.0) % ABG O2 Capacity (16-24) mL/dL Arnoldo Test A-a O2 Difference mm/Hg Hgb O2 Saturation (95.0-98.0) % Vent Mode Mechanical Rate FiO2 % Tidal Volume PEEP Sodium (132-148) mmol/l Potassium (3.6-5.0) MMOL/L Chloride (98-107) mmol/L Carbon Dioxide (22-30) mmol/L Anion Gap (10-20) BUN (7-17) mg/dl Creatinine (0.7-1.2) mg/dl Est GFR ( Amer) Est GFR (Non-Af Amer) POC Glucose (mg/dL) 124 H 170 H 154 H (65-110) mg/dL Random Glucose (65-105) mg/dL Calcium (8.4-10.2) mg/dL Phosphorus (2.5-4.5) mg/dl Magnesium (1.6-2.3) MG/DL Total Bilirubin (0.2-1.3) mg/dl AST (14-36) U/L ALT (9-52) U/L Alkaline Phosphatase (38-126) U/L Total Protein (6.3-8.2) G/DL Albumin (3.5-5.0) g/dL Globulin (2.2-3.9) gm/dL Albumin/Globulin Ratio (1.0-2.1) Hep Bs Antigen (NEGATIVE) Hep Bs Antibody (NEGATIVE) Hep B Core IgM Ab (NEGATIVE) Hepatitis C Antibody (NEGATIVE) Blood Type Antibody Screen BBK History Checked 10/22/17 10/22/17 10/22/17 Range/Units 14:18 11:48 09:37 WBC (4.8-10.8) K/uL RBC (3.80-5.20) Mil/uL Hgb (12.0-16.0) g/dL Hct (34.0-47.0) % MCV (81.0-99.0) fl MCH (27.0-31.0) pg MCHC (33.0-37.0) g/dL RDW (11.5-14.5) % Plt Count (130-400) K/uL Neutrophils % (Manual) (42-75) % Band Neutrophils % (0-2) % Lymphocytes % (Manual) (20-50) % Reactive Lymphs % (0-0) % Monocytes % (Manual) (0-10) % Platelet Estimate (NORMAL) Large Platelets Polychromasia Hypochromasia (manual) Poikilocytosis (manual Anisocytosis (manual) Microcytosis (manual) Target Cells Ovalocytes pCO2 (35-45) mm/Hg pO2 (80-100) mm/Hg HCO3 (21-28) mmol/L ABG pH (7.35-7.45) ABG Total CO2 (22-28) mmol/L ABG O2 Saturation (95-98) % ABG O2 Content (15-23) ML/dL ABG Base Excess (-2.0-3.0) mmol/L ABG Hemoglobin (11.7-17.4) g/dL ABG Carboxyhemoglobin (0.5-1.5) % POC ABG HHb (Measured) (0.0-5.0) % ABG Methemoglobin (0.0-3.0) % ABG O2 Capacity (16-24) mL/dL Arnoldo Test A-a O2 Difference mm/Hg Hgb O2 Saturation (95.0-98.0) % Vent Mode Mechanical Rate FiO2 % Tidal Volume PEEP Sodium (132-148) mmol/l Potassium (3.6-5.0) MMOL/L Chloride (98-107) mmol/L Carbon Dioxide (22-30) mmol/L Anion Gap (10-20) BUN (7-17) mg/dl Creatinine (0.7-1.2) mg/dl Est GFR ( Amer) Est GFR (Non-Af Amer) POC Glucose (mg/dL) 145 H 174 H 166 H (65-110) mg/dL Random Glucose (65-105) mg/dL Calcium (8.4-10.2) mg/dL Phosphorus (2.5-4.5) mg/dl Magnesium (1.6-2.3) MG/DL Total Bilirubin (0.2-1.3) mg/dl AST (14-36) U/L ALT (9-52) U/L Alkaline Phosphatase (38-126) U/L Total Protein (6.3-8.2) G/DL Albumin (3.5-5.0) g/dL Globulin (2.2-3.9) gm/dL Albumin/Globulin Ratio (1.0-2.1) Hep Bs Antigen (NEGATIVE) Hep Bs Antibody (NEGATIVE) Hep B Core IgM Ab (NEGATIVE) Hepatitis C Antibody (NEGATIVE) Blood Type Antibody Screen BBK History Checked 10/22/17 10/22/17 10/22/17 Range/Units 07:48 06:00 06:00 WBC (4.8-10.8) K/uL RBC (3.80-5.20) Mil/uL Hgb (12.0-16.0) g/dL Hct (34.0-47.0) % MCV (81.0-99.0) fl MCH (27.0-31.0) pg MCHC (33.0-37.0) g/dL RDW (11.5-14.5) % Plt Count (130-400) K/uL Neutrophils % (Manual) 88 H (42-75) % Band Neutrophils % 2 (0-2) % Lymphocytes % (Manual) 4 L (20-50) % Reactive Lymphs % 2 H (0-0) % Monocytes % (Manual) 4 (0-10) % Platelet Estimate Normal (NORMAL) Large Platelets Present Polychromasia Slight Hypochromasia (manual) Slight Poikilocytosis (manual Slight Anisocytosis (manual) Moderate Microcytosis (manual) Moderate Target Cells Slight Ovalocytes Slight pCO2 (35-45) mm/Hg pO2 (80-100) mm/Hg HCO3 (21-28) mmol/L ABG pH (7.35-7.45) ABG Total CO2 (22-28) mmol/L ABG O2 Saturation (95-98) % ABG O2 Content (15-23) ML/dL ABG Base Excess (-2.0-3.0) mmol/L ABG Hemoglobin (11.7-17.4) g/dL ABG Carboxyhemoglobin (0.5-1.5) % POC ABG HHb (Measured) (0.0-5.0) % ABG Methemoglobin (0.0-3.0) % ABG O2 Capacity (16-24) mL/dL Arnoldo Test A-a O2 Difference mm/Hg Hgb O2 Saturation (95.0-98.0) % Vent Mode Mechanical Rate FiO2 % Tidal Volume PEEP Sodium 140 (132-148) mmol/l Potassium 3.3 L (3.6-5.0) MMOL/L Chloride 94 L (98-107) mmol/L Carbon Dioxide 22 (22-30) mmol/L Anion Gap 27 H (10-20) BUN 65 H (7-17) mg/dl Creatinine 7.3 H (0.7-1.2) mg/dl Est GFR ( Amer) 7 Est GFR (Non-Af Amer) 5 POC Glucose (mg/dL) 182 H (65-110) mg/dL Random Glucose 175 H (65-105) mg/dL Calcium 7.1 L (8.4-10.2) mg/dL Phosphorus 4.1 (2.5-4.5) mg/dl Magnesium 1.7 (1.6-2.3) MG/DL Total Bilirubin 0.4 (0.2-1.3) mg/dl AST 43 H D (14-36) U/L ALT 30 (9-52) U/L Alkaline Phosphatase 95 (38-126) U/L Total Protein 5.3 L (6.3-8.2) G/DL Albumin 2.7 L D (3.5-5.0) g/dL Globulin 2.6 (2.2-3.9) gm/dL Albumin/Globulin Ratio 1.0 (1.0-2.1) Hep Bs Antigen (NEGATIVE) Hep Bs Antibody (NEGATIVE) Hep B Core IgM Ab (NEGATIVE) Hepatitis C Antibody (NEGATIVE) Blood Type Antibody Screen BBK History Checked 10/21/17 10/21/17 Range/Units 04:18 04:18 WBC (4.8-10.8) K/uL RBC (3.80-5.20) Mil/uL Hgb (12.0-16.0) g/dL Hct (34.0-47.0) % MCV (81.0-99.0) fl MCH (27.0-31.0) pg MCHC (33.0-37.0) g/dL RDW (11.5-14.5) % Plt Count (130-400) K/uL Neutrophils % (Manual) (42-75) % Band Neutrophils % (0-2) % Lymphocytes % (Manual) (20-50) % Reactive Lymphs % (0-0) % Monocytes % (Manual) (0-10) % Platelet Estimate (NORMAL) Large Platelets Polychromasia Hypochromasia (manual) Poikilocytosis (manual Anisocytosis (manual) Microcytosis (manual) Target Cells Ovalocytes pCO2 (35-45) mm/Hg pO2 (80-100) mm/Hg HCO3 (21-28) mmol/L ABG pH (7.35-7.45) ABG Total CO2 (22-28) mmol/L ABG O2 Saturation (95-98) % ABG O2 Content (15-23) ML/dL ABG Base Excess (-2.0-3.0) mmol/L ABG Hemoglobin (11.7-17.4) g/dL ABG Carboxyhemoglobin (0.5-1.5) % POC ABG HHb (Measured) (0.0-5.0) % ABG Methemoglobin (0.0-3.0) % ABG O2 Capacity (16-24) mL/dL Arnoldo Test A-a O2 Difference mm/Hg Hgb O2 Saturation (95.0-98.0) % Vent Mode Mechanical Rate FiO2 % Tidal Volume PEEP Sodium (132-148) mmol/l Potassium (3.6-5.0) MMOL/L Chloride (98-107) mmol/L Carbon Dioxide (22-30) mmol/L Anion Gap (10-20) BUN (7-17) mg/dl Creatinine (0.7-1.2) mg/dl Est GFR ( Amer) Est GFR (Non-Af Amer) POC Glucose (mg/dL) (65-110) mg/dL Random Glucose (65-105) mg/dL Calcium (8.4-10.2) mg/dL Phosphorus (2.5-4.5) mg/dl Magnesium (1.6-2.3) MG/DL Total Bilirubin (0.2-1.3) mg/dl AST (14-36) U/L ALT (9-52) U/L Alkaline Phosphatase (38-126) U/L Total Protein (6.3-8.2) G/DL Albumin (3.5-5.0) g/dL Globulin (2.2-3.9) gm/dL Albumin/Globulin Ratio (1.0-2.1) Hep Bs Antigen Negative (NEGATIVE) Hep Bs Antibody Negative (NEGATIVE) Hep B Core IgM Ab Negative (NEGATIVE) Hepatitis C Antibody Negative (NEGATIVE) Blood Type Antibody Screen BBK History Checked Laboratory Results - last 24 hr 10/21/17 10/21/17 10/22/17 04:18 04:18 06:00 WBC RBC Hgb Hct MCV MCH MCHC RDW Plt Count Neutrophils % (Manual) 88 H Band Neutrophils % 2 Lymphocytes % (Manual) 4 L Reactive Lymphs % 2 H Monocytes % (Manual) 4 Platelet Estimate Normal Large Platelets Present Polychromasia Slight Hypochromasia (manual) Slight Poikilocytosis (manual Slight Anisocytosis (manual) Moderate Microcytosis (manual) Moderate Target Cells Slight Ovalocytes Slight pCO2 pO2 HCO3 ABG pH ABG Total CO2 ABG O2 Saturation ABG O2 Content ABG Base Excess ABG Hemoglobin ABG Carboxyhemoglobin POC ABG HHb (Measured) ABG Methemoglobin ABG O2 Capacity Arnoldo Test A-a O2 Difference Hgb O2 Saturation Vent Mode Mechanical Rate FiO2 Tidal Volume PEEP Sodium Potassium Chloride Carbon Dioxide Anion Gap BUN Creatinine Est GFR ( Amer) Est GFR (Non-Af Amer) POC Glucose (mg/dL) Random Glucose Calcium Phosphorus Magnesium Total Bilirubin AST ALT Alkaline Phosphatase Total Protein Albumin Globulin Albumin/Globulin Ratio Hep Bs Antigen Negative Hep Bs Antibody Negative Hep B Core IgM Ab Negative Hepatitis C Antibody Negative Blood Type Antibody Screen BBK History Checked 10/22/17 10/22/17 10/22/17 06:00 07:48 09:37 WBC RBC Hgb Hct MCV MCH MCHC RDW Plt Count Neutrophils % (Manual) Band Neutrophils % Lymphocytes % (Manual) Reactive Lymphs % Monocytes % (Manual) Platelet Estimate Large Platelets Polychromasia Hypochromasia (manual) Poikilocytosis (manual Anisocytosis (manual) Microcytosis (manual) Target Cells Ovalocytes pCO2 pO2 HCO3 ABG pH ABG Total CO2 ABG O2 Saturation ABG O2 Content ABG Base Excess ABG Hemoglobin ABG Carboxyhemoglobin POC ABG HHb (Measured) ABG Methemoglobin ABG O2 Capacity Arnoldo Test A-a O2 Difference Hgb O2 Saturation Vent Mode Mechanical Rate FiO2 Tidal Volume PEEP Sodium 140 Potassium 3.3 L Chloride 94 L Carbon Dioxide 22 Anion Gap 27 H BUN 65 H Creatinine 7.3 H Est GFR ( Amer) 7 Est GFR (Non-Af Amer) 5 POC Glucose (mg/dL) 182 H 166 H Random Glucose 175 H Calcium 7.1 L Phosphorus 4.1 Magnesium 1.7 Total Bilirubin 0.4 AST 43 H D ALT 30 Alkaline Phosphatase 95 Total Protein 5.3 L Albumin 2.7 L D Globulin 2.6 Albumin/Globulin Ratio 1.0 Hep Bs Antigen Hep Bs Antibody Hep B Core IgM Ab Hepatitis C Antibody Blood Type Antibody Screen BBK History Checked 10/22/17 10/22/17 10/22/17 11:48 14:18 15:04 WBC RBC Hgb Hct MCV MCH MCHC RDW Plt Count Neutrophils % (Manual) Band Neutrophils % Lymphocytes % (Manual) Reactive Lymphs % Monocytes % (Manual) Platelet Estimate Large Platelets Polychromasia Hypochromasia (manual) Poikilocytosis (manual Anisocytosis (manual) Microcytosis (manual) Target Cells Ovalocytes pCO2 pO2 HCO3 ABG pH ABG Total CO2 ABG O2 Saturation ABG O2 Content ABG Base Excess ABG Hemoglobin ABG Carboxyhemoglobin POC ABG HHb (Measured) ABG Methemoglobin ABG O2 Capacity Arnoldo Test A-a O2 Difference Hgb O2 Saturation Vent Mode Mechanical Rate FiO2 Tidal Volume PEEP Sodium Potassium Chloride Carbon Dioxide Anion Gap BUN Creatinine Est GFR ( Amer) Est GFR (Non-Af Amer) POC Glucose (mg/dL) 174 H 145 H 154 H Random Glucose Calcium Phosphorus Magnesium Total Bilirubin AST ALT Alkaline Phosphatase Total Protein Albumin Globulin Albumin/Globulin Ratio Hep Bs Antigen Hep Bs Antibody Hep B Core IgM Ab Hepatitis C Antibody Blood Type Antibody Screen BBK History Checked 10/22/17 10/22/17 10/22/17 16:42 18:32 20:15 WBC RBC Hgb Hct MCV MCH MCHC RDW Plt Count Neutrophils % (Manual) Band Neutrophils % Lymphocytes % (Manual) Reactive Lymphs % Monocytes % (Manual) Platelet Estimate Large Platelets Polychromasia Hypochromasia (manual) Poikilocytosis (manual Anisocytosis (manual) Microcytosis (manual) Target Cells Ovalocytes pCO2 pO2 HCO3 ABG pH ABG Total CO2 ABG O2 Saturation ABG O2 Content ABG Base Excess ABG Hemoglobin ABG Carboxyhemoglobin POC ABG HHb (Measured) ABG Methemoglobin ABG O2 Capacity Arnoldo Test A-a O2 Difference Hgb O2 Saturation Vent Mode Mechanical Rate FiO2 Tidal Volume PEEP Sodium Potassium Chloride Carbon Dioxide Anion Gap BUN Creatinine Est GFR ( Amer) Est GFR (Non-Af Amer) POC Glucose (mg/dL) 170 H 124 H Random Glucose Calcium Phosphorus Magnesium Total Bilirubin AST ALT Alkaline Phosphatase Total Protein Albumin Globulin Albumin/Globulin Ratio Hep Bs Antigen Hep Bs Antibody Hep B Core IgM Ab Hepatitis C Antibody Blood Type A POSITIVE Antibody Screen Negative BBK History Checked Patient has bt 10/22/17 10/22/17 10/22/17 20:15 20:15 20:31 WBC 30.1 H RBC 2.83 L Hgb 7.7 L Hct 23.9 L MCV 84.6 MCH 27.1 MCHC 32.0 L RDW 15.7 H Plt Count 264 Neutrophils % (Manual) Band Neutrophils % Lymphocytes % (Manual) Reactive Lymphs % Monocytes % (Manual) Platelet Estimate Large Platelets Polychromasia Hypochromasia (manual) Poikilocytosis (manual Anisocytosis (manual) Microcytosis (manual) Target Cells Ovalocytes pCO2 pO2 HCO3 ABG pH ABG Total CO2 ABG O2 Saturation ABG O2 Content ABG Base Excess ABG Hemoglobin ABG Carboxyhemoglobin POC ABG HHb (Measured) ABG Methemoglobin ABG O2 Capacity Arnoldo Test A-a O2 Difference Hgb O2 Saturation Vent Mode Mechanical Rate FiO2 Tidal Volume PEEP Sodium 136 Potassium 3.2 L Chloride 97 L Carbon Dioxide 16 L Anion Gap 26 H BUN 65 H Creatinine 7.6 H* Est GFR ( Amer) 6 Est GFR (Non-Af Amer) 5 POC Glucose (mg/dL) 154 H Random Glucose 142 H Calcium 7.1 L Phosphorus Magnesium Total Bilirubin AST ALT Alkaline Phosphatase Total Protein Albumin Globulin Albumin/Globulin Ratio Hep Bs Antigen Hep Bs Antibody Hep B Core IgM Ab Hepatitis C Antibody Blood Type Antibody Screen BBK History Checked 10/22/17 10/23/17 10/23/17 22:33 00:25 02:31 WBC RBC Hgb Hct MCV MCH MCHC RDW Plt Count Neutrophils % (Manual) Band Neutrophils % Lymphocytes % (Manual) Reactive Lymphs % Monocytes % (Manual) Platelet Estimate Large Platelets Polychromasia Hypochromasia (manual) Poikilocytosis (manual Anisocytosis (manual) Microcytosis (manual) Target Cells Ovalocytes pCO2 pO2 HCO3 ABG pH ABG Total CO2 ABG O2 Saturation ABG O2 Content ABG Base Excess ABG Hemoglobin ABG Carboxyhemoglobin POC ABG HHb (Measured) ABG Methemoglobin ABG O2 Capacity Arnoldo Test A-a O2 Difference Hgb O2 Saturation Vent Mode Mechanical Rate FiO2 Tidal Volume PEEP Sodium Potassium Chloride Carbon Dioxide Anion Gap BUN Creatinine Est GFR ( Amer) Est GFR (Non-Af Amer) POC Glucose (mg/dL) 171 H 147 H 172 H Random Glucose Calcium Phosphorus Magnesium Total Bilirubin AST ALT Alkaline Phosphatase Total Protein Albumin Globulin Albumin/Globulin Ratio Hep Bs Antigen Hep Bs Antibody Hep B Core IgM Ab Hepatitis C Antibody Blood Type Antibody Screen BBK History Checked 10/23/17 10/23/17 10/23/17 04:20 04:20 04:50 WBC 32.3 H RBC 3.14 L Hgb 8.4 L Hct 26.5 L MCV 84.3 MCH 26.8 L MCHC 31.8 L RDW 16.0 H Plt Count 285 Neutrophils % (Manual) Band Neutrophils % Lymphocytes % (Manual) Reactive Lymphs % Monocytes % (Manual) Platelet Estimate Large Platelets Polychromasia Hypochromasia (manual) Poikilocytosis (manual Anisocytosis (manual) Microcytosis (manual) Target Cells Ovalocytes pCO2 pO2 HCO3 ABG pH ABG Total CO2 ABG O2 Saturation ABG O2 Content ABG Base Excess ABG Hemoglobin ABG Carboxyhemoglobin POC ABG HHb (Measured) ABG Methemoglobin ABG O2 Capacity Arnoldo Test A-a O2 Difference Hgb O2 Saturation Vent Mode Mechanical Rate FiO2 Tidal Volume PEEP Sodium 140 Potassium 3.6 Chloride 100 Carbon Dioxide 14 L Anion Gap 30 H BUN 62 H Creatinine 7.6 H* Est GFR ( Amer) 6 Est GFR (Non-Af Amer) 5 POC Glucose (mg/dL) 202 H Random Glucose 205 H Calcium 7.5 L Phosphorus Magnesium Total Bilirubin 0.4 AST 35 ALT 34 Alkaline Phosphatase 91 Total Protein 5.1 L Albumin 2.5 L Globulin 2.6 Albumin/Globulin Ratio 1.0 Hep Bs Antigen Hep Bs Antibody Hep B Core IgM Ab Hepatitis C Antibody Blood Type Antibody Screen BBK History Checked 10/23/17 10/23/17 05:22 06:27 WBC RBC Hgb Hct MCV MCH MCHC RDW Plt Count Neutrophils % (Manual) Band Neutrophils % Lymphocytes % (Manual) Reactive Lymphs % Monocytes % (Manual) Platelet Estimate Large Platelets Polychromasia Hypochromasia (manual) Poikilocytosis (manual Anisocytosis (manual) Microcytosis (manual) Target Cells Ovalocytes pCO2 27 L pO2 196 H HCO3 17.5 L ABG pH 7.35 ABG Total CO2 15.7 L ABG O2 Saturation 99.9 H ABG O2 Content 12.3 L ABG Base Excess -9.6 L ABG Hemoglobin 8.6 L ABG Carboxyhemoglobin 0.9 POC ABG HHb (Measured) 0.1 ABG Methemoglobin 1.0 ABG O2 Capacity 12.3 L Arnoldo Test Yes A-a O2 Difference 55.0 Hgb O2 Saturation 98.1 H Vent Mode Prvc/ac Mechanical Rate 12 FiO2 40.0 Tidal Volume 450 PEEP 5 Sodium Potassium Chloride Carbon Dioxide Anion Gap BUN Creatinine Est GFR ( Amer) Est GFR (Non-Af Amer) POC Glucose (mg/dL) 219 H Random Glucose Calcium Phosphorus Magnesium Total Bilirubin AST ALT Alkaline Phosphatase Total Protein Albumin Globulin Albumin/Globulin Ratio Hep Bs Antigen Hep Bs Antibody Hep B Core IgM Ab Hepatitis C Antibody Blood Type Antibody Screen BBK History Checked Fingerstick Blood Sugar Results: 219 Review of Systems - Review of Systems Systems not reviewed;Unavailable: Intubated Critical Care Progress Note - Ventilator Checklist Head of Bed 30 Degrees: Yes Daily Sedation Vacation: Yes Daily Assessment of Readiness to Wean: Yes Daily Spontaneous Breathing Trial: Yes PUD Prophalyxis: Yes DVT Prophylaxis: Yes Oral Care with Chlorhexidine Gluconate {CHG}: Yes - Extremities/Vascular Does the Patient have a Central Venous Catheter?: Yes Does the Patient need a Central Venous Catheter?: Yes Does the Patient have a Adams Catheter?: Yes Does the Patient need a Adams Catheter?: Yes - Prophylaxis GI Prophylaxis GI: PPI - Prophylaxis DVT Prophylaxis DVT: Heparin SQ (On Hold), SCDs - Nutrition Nutrition: Nutrition Category Date Time Status NPO Diet [DIET] Diets 10/20/17 Breakfast Active Assessment/Plan (1) Acute respiratory failure with hypoxia Current Visit: Yes Status: Acute Priority: High Comment: Continue with ICU care for hemodynamic and Respiratory monitoring Wean off Fio2 as tolerated Avoid alkalemia and hyperoxia. Diuresis Strict I&O, negative fluid balance Aggressive pulmonary toilet, chest PT, suctioning Vent weaning in progress Daily CAT/SBT IV antibiotics, Continue IV Vancomycin, meropenem, Azithromycin and Metronidazole (2) Septic shock Current Visit: Yes Status: Acute Priority: High Comment: IV antibiotics, Continue IV Vancomycin, meropenem, Azithromycin and Metronidazole Continue levophed for BP support, wean as tolerated Maintain MAP 65-75 (3) Acute on chronic renal failure Current Visit: Yes Status: Acute Priority: High Comment: Acute kidney injury likely multifactorial due to circulatory failure, Obstructive ueopathy and septic shock Stable Bun/Cr HD as pe renal (4) Metabolic acidosis Current Visit: Yes Status: Acute Priority: High Comment: Improved with HD and bicarb drip (5) Acute on chronic renal failure Current Visit: No Status: Acute (6) UTI (urinary tract infection) with pyuria Current Visit: Yes Status: Acute Priority: High (7) Obstructive uropathy Current Visit: Yes Status: Acute Priority: Medium (8) Retained ureteral stent Current Visit: Yes Status: Resolved Priority: Medium (9) CKD (chronic kidney disease) stage 3, GFR 30-59 ml/min Current Visit: No Status: Chronic Priority: Medium - Assessment and Plan (Free Text) Assessment: # HOB maintained at 30 degrees. Encouraged use of IS # GI/DVT PPX # Stress Ulcer prophylaxis with Protonix 40 mg IVP QD # DVT prophylaxis with SCD (SQ Heparin on hold) # Code Status: DNR Total critical care time 55 minutes
--- NOTE | 2017-10-23 07:37 | RAD ---
HISTORY: intubated COMPARISON: Portable chest 10/22/2017 FINDINGS: Central venous catheter, endotracheal and nasogastric tubes do not appear significantly changed in position. LUNGS: No active pulmonary disease. PLEURA: Trace left pleural effusion appears to bone the left costophrenic sulcus. No right pleural effusion. No pneumothorax bilaterally CARDIOVASCULAR: Cardiac silhouette is stable in appearance. No pulmonary vascular derangement appreciable. OSSEOUS STRUCTURES: No significant abnormalities. VISUALIZED UPPER ABDOMEN: Normal. OTHER FINDINGS: None. IMPRESSION: Stable chest radiography with trace left pleural effusion evident. Tubes and catheters unchanged in position.
--- NOTE | 2017-10-23 07:59 | CP.PCM.PN ---
<Katelyn Pierce - Last Filed: 10/23/17 11:42> Subjective - Date & Time of Evaluation Date of Evaluation: 10/23/17 Time of Evaluation: 07:59 - Subjective Subjective: ICU day 4 Pt seen and examined at bedside this morning. Sedation, Intubated, nonverbal. moving b/l lower ext. Responsive only to painful stimuli. Objective - Vital Signs/Intake and Output Vital Signs (last 24 hours): Temp Pulse Resp BP Pulse Ox 97.6 F 103 H 22 98/56 L 100 10/23/17 04:00 10/23/17 07:00 10/23/17 07:00 10/23/17 07:00 10/23/17 07:00 Intake and Output: 10/23/17 10/23/17 06:59 18:59 Intake Total 578 Output Total 2 Balance 576 - Medications Medications: Current Medications Aspirin (Ecotrin) 81 mg PO DAILY [facility] Last Admin: 10/21/17 08:49 Dose: 81 mg Atorvastatin Calcium (Lipitor) 40 mg PO QPM [facility] Last Admin: 10/21/17 17:21 Dose: Not Given Dextrose (Dextrose 50% Inj) 0 ml IV STAT PRN; Protocol PRN Reason: Hypoglycemia Protocol Dextrose (Glutose 15) 0 gm PO ONCE PRN; Protocol PRN Reason: Hypoglycemia Protocol Dextrose (Dextrose 50% Inj) 0 ml IV STAT PRN; Protocol PRN Reason: Hypoglycemia Protocol Dextrose (Glutose 15) 0 gm PO ONCE PRN; Protocol PRN Reason: Hypoglycemia Protocol Epoetin Axel (Procrit) 10,000 unit SC MWF [facility] Glucagon (Glucagen Diagnostic Kit) 0 mg IM STAT PRN; Protocol PRN Reason: Hypoglycemia Protocol Glucagon (Glucagen Diagnostic Kit) 0 mg IM STAT PRN; Protocol PRN Reason: Hypoglycemia Protocol Heparin Sodium (Porcine) (Heparin) 5,000 units SC Q8 [facility] PRN Reason: Protocol Last Admin: 10/23/17 01:41 Dose: Not Given Azithromycin 500 mg/ Sodium (Chloride) 250 mls @ 250 mls/hr IVPB DAILY [facility] PRN Reason: Protocol Last Admin: 10/22/17 08:43 Dose: 250 mls/hr Metronidazole (Flagyl 500mg/100ml Ns) 100 mls @ 100 mls/hr IVPB Q8 [facility] PRN Reason: Protocol Last Admin: 10/23/17 01:34 Dose: 100 mls/hr Meropenem 500 mg/ Sodium (Chloride) 100 mls @ 100 mls/hr IVPB Q8 [facility] PRN Reason: Protocol Last Admin: 10/23/17 01:42 Dose: 100 mls/hr Insulin Human Regular 100 (units/ Sodium Chloride) 101 mls @ 2.02 mls/hr IV .Q24H [facility]; 2 UNITS/HR PRN Reason: Protocol Last Titration: 10/23/17 04:45 Dose: 2.97 units/hr, 3 mls/hr Vancomycin HCl 1 gm/ Sodium (Chloride) 250 mls @ 125 mls/hr IVPB DAILY [facility] PRN Reason: Protocol Last Admin: 10/22/17 09:21 Dose: 125 mls/hr Sodium Bicarbonate 75 meq/ (Sodium Chloride) 1,075 mls @ 75 mls/hr IV .[id number] [facility] Stop: 10/24/17 06:40 Norepinephrine Bitartrate 4 mg (/ Dextrose) 254 mls @ 20.95 mls/hr IV .Q12H8M [facility]; 5.5 MCG/MIN PRN Reason: Protocol Midazolam HCl 50 mg/ Sodium (Chloride) 100 mls @ 8 mls/hr IV .[id number] ONE; 4 MG /HR PRN Reason: Protocol Stop: 10/23/17 19:29 Last Admin: 10/23/17 07:02 Dose: 9 mg/hr, 18 mls/hr Mannitol (Mannitol) 12.5 gm IV Q15MIN [facility] Stop: 10/24/17 15:16 Pantoprazole Sodium (Protonix Inj) 40 mg IVP DAILY [facility] Last Admin: 10/22/17 09:22 Dose: 40 mg - Labs Labs: 10/23/17 04:20 10/23/17 04:20 PT 12.3 Seconds (9.8-13.1) 10/20/17 19:46 INR 1.1 (0.9-1.2) 10/20/17 19:46 APTT 33.2 Seconds (25.6-37.1) D 10/21/17 04:18 - Constitutional Appears: Other (Resting, breathing on ventilator.) - Head Exam Head Exam: NORMAL INSPECTION - Eye Exam Eye Exam: PERRL - Respiratory Exam Respiratory Exam: Clear to Ausculation Bilateral - Cardiovascular Exam Cardiovascular Exam: Tachycardia, REGULAR RHYTHM - GI/Abdominal Exam GI & Abdominal Exam: Soft, Normal Bowel Sounds - Extremities Exam Additional comments: Edematous hands and legs b/l. Assessment and Plan - Assessment and Plan (Free Text) Assessment: 77yo F with PMHx uncontrolled IDDM2, HTN, CKD4, Hydronephrosis s/p bilateral stenting, chronic kidney disease (Dialysis) admitted with septic shock. Plan: c/w IV abx, ventilator. Prognosis guarded. Currently DNR 1- Septic shock, improved -mechanical ventilation: sedated with Versed drip; plan to wean -Blood culture: no growth in 48 hrs -f/u urine culture: pending -[employer] Consultant on consult, Recs appreciated: pressors weaned 2/2 improved bp -On Broad spectrum antibiotics: Vancomycin (Random trough: 7.0), Meropenem, Azithromycin, Metronidazole -f/u c.diff -f/u vanco trough 10/24 2- Acute Kidney Injury on CKD -BUN/Cr 62/7.6 -Nephro on board Dr. Garcia. Recs are appreciated: - HD on 10/23/2017 - K 3.6 3- HAGMA: high anion gap metabolic acidosis -sodium bicarbonate -s/p HD 4- Anemia -H/H: 8.4/26.5 -likely 2/2 s/p 3 L fluid; dilution -T&S 5- H/O Hydronephrosis s/p bilateral stenting -Urology on board Dr. Valentine. Recommendations appreciated -f/u bladder scan 6- Diverticulitis -c/w flagyl -General surgery on board 7- Hypertension -Hold home BP meds for now 2/2 septic shock 8- Diabetes Mellitus type 2 -hold home PO meds; may consider SQ -accucheck -insulin coverage by protocol -hypoglycemic protocol 9- DVT prophylaxis -Heparin SC 10- Code Status: DNR: Documentation reviewed: Status was discussed with family via Dr. Garcia and made aware by Dr. Mendes. Palliative care consulted. <Min Woody - Last Filed: 10/24/17 06:48> Objective - Vital Signs/Intake and Output Vital Signs (last 24 hours): Temp Pulse Resp BP Pulse Ox 97.9 F 107 H 21 135/69 100 10/24/17 04:00 10/24/17 06:00 10/24/17 06:00 10/24/17 06:00 10/24/17 06:00 Intake and Output: 10/23/17 10/24/17 18:59 06:59 Intake Total 2254 1704 Output Total 500 520 Balance 1754 1184 - Medications Medications: Current Medications Aspirin (Ecotrin) 81 mg PO DAILY [facility] Last Admin: 10/21/17 08:49 Dose: 81 mg Atorvastatin Calcium (Lipitor) 40 mg PO QPM [facility] Last Admin: 10/21/17 17:21 Dose: Not Given Dextrose (Dextrose 50% Inj) 0 ml IV STAT PRN; Protocol PRN Reason: Hypoglycemia Protocol Dextrose (Glutose 15) 0 gm PO ONCE PRN; Protocol PRN Reason: Hypoglycemia Protocol Dextrose (Dextrose 50% Inj) 0 ml IV STAT PRN; Protocol PRN Reason: Hypoglycemia Protocol Dextrose (Glutose 15) 0 gm PO ONCE PRN; Protocol PRN Reason: Hypoglycemia Protocol Epoetin Axel (Procrit) 10,000 unit SC MWF [facility] Last Admin: 10/23/17 18:49 Dose: 10,000 unit Glucagon (Glucagen Diagnostic Kit) 0 mg IM STAT PRN; Protocol PRN Reason: Hypoglycemia Protocol Glucagon (Glucagen Diagnostic Kit) 0 mg IM STAT PRN; Protocol PRN Reason: Hypoglycemia Protocol Heparin Sodium (Porcine) (Heparin) 5,000 units SC Q8 [facility] PRN Reason: Protocol Last Admin: 10/23/17 10:07 Dose: Not Given Azithromycin 500 mg/ Sodium (Chloride) 250 mls @ 250 mls/hr IVPB DAILY [facility] PRN Reason: Protocol Last Admin: 10/23/17 10:13 Dose: 250 mls/hr Metronidazole (Flagyl 500mg/100ml Ns) 100 mls @ 100 mls/hr IVPB Q8 [facility] PRN Reason: Protocol Last Admin: 10/24/17 01:03 Dose: 100 mls/hr Meropenem 500 mg/ Sodium (Chloride) 100 mls @ 100 mls/hr IVPB Q8 [facility] PRN Reason: Protocol Last Admin: 10/24/17 01:05 Dose: 100 mls/hr Vancomycin HCl 1 gm/ Sodium (Chloride) 250 mls @ 125 mls/hr IVPB DAILY [facility] PRN Reason: Protocol Last Admin: 10/23/17 10:14 Dose: 125 mls/hr Norepinephrine Bitartrate 4 mg (/ Dextrose) 254 mls @ 20.95 mls/hr IV .Q12H8M [facility]; 5.5 MCG/MIN PRN Reason: Protocol Last Titration: 10/23/17 21:25 Dose: Infused Midazolam HCl 50 mg/ Dextrose 100 mls @ 8 mls/hr IV .[id number] [facility]; 4 MG/HR PRN Reason: Protocol Stop: 10/24/17 12:31 Last Admin: 10/24/17 02:55 Dose: 4 mg/hr, 8 mls/hr Insulin Human Regular (Humulin R) 0 units SC Q4 [facility] PRN Reason: Protocol Last Admin: 10/24/17 04:05 Dose: 3 unit Nystatin (Nystop Topical Powder) 1 applic TOP TID [facility] Last Admin: 10/23/17 22:42 Dose: 1 applic Pantoprazole Sodium (Protonix Inj) 40 mg IVP DAILY [facility] Last Admin: 10/23/17 10:11 Dose: 40 mg Silver Sulfadiazine (Silvadene 1% 20 Gm) 1 ea TOP DAILY [facility] Last Admin: 10/23/17 20:00 Dose: 1 each - Labs Labs: 10/24/17 04:30 10/24/17 04:30 PT 12.3 Seconds (9.8-13.1) 10/20/17 19:46 INR 1.1 (0.9-1.2) 10/20/17 19:46 APTT 33.2 Seconds (25.6-37.1) D 10/21/17 04:18 Attending/Attestation - Attestation I have personally seen and examined this patient.: Yes I have fully participated in the care of the patient.: Yes I have reviewed all pertinent clinical information, including history, physical exam and plan: Yes
[2017-10-23] MEDS: Azithromycin 500 MG in Sodium Chloride 0.9% 250 ML IVPB SCH (10:13)
[2017-10-23 12:31] LABS: URINE BILIRUBIN NEGATIVE (NEGATIVE); URINE BLOOD LARGE (NEGATIVE); URINE CLARITY TURBID (Clear); URINE COLOR RED (YELLOW); URINE GLUCOSE (UA) 50 mg/dL (Normal); URINE LEUKOCYTE ESTERASE LARGE Leu/uL (Negative); URINE PROTEIN >=500 mg/dL (NEGATIVE); URINE UROBILINOGEN 0.2-1.0 mg/dL (0.2-1.0); WBC CLUMPS MANY /hpf
--- NOTE | 2017-10-23 14:35 | CP.PCM.PN ---
Subjective - Date & Time of Evaluation Date of Evaluation: 10/23/17 Time of Evaluation: 14:35 - Subjective Subjective: ID Note- Pt. seen and examined today in ICU. remains intubated and on pressors. only responds to painful stimuli Objective - Vital Signs/Intake and Output Vital Signs (last 24 hours): Temp Pulse Resp BP Pulse Ox 98.4 F 105 H 19 114/78 100 10/23/17 12:00 10/23/17 12:00 10/23/17 12:00 10/23/17 12:00 10/23/17 12:00 Intake and Output: 10/23/17 10/23/17 06:59 18:59 Intake Total 578 0 Output Total 2 Balance 576 0 - Medications Medications: Current Medications Aspirin (Ecotrin) 81 mg PO DAILY [facility] Last Admin: 10/21/17 08:49 Dose: 81 mg Atorvastatin Calcium (Lipitor) 40 mg PO QPM [facility] Last Admin: 10/21/17 17:21 Dose: Not Given Dextrose (Dextrose 50% Inj) 0 ml IV STAT PRN; Protocol PRN Reason: Hypoglycemia Protocol Dextrose (Glutose 15) 0 gm PO ONCE PRN; Protocol PRN Reason: Hypoglycemia Protocol Dextrose (Dextrose 50% Inj) 0 ml IV STAT PRN; Protocol PRN Reason: Hypoglycemia Protocol Dextrose (Glutose 15) 0 gm PO ONCE PRN; Protocol PRN Reason: Hypoglycemia Protocol Epoetin Axel (Procrit) 10,000 unit SC MWF [facility] Glucagon (Glucagen Diagnostic Kit) 0 mg IM STAT PRN; Protocol PRN Reason: Hypoglycemia Protocol Glucagon (Glucagen Diagnostic Kit) 0 mg IM STAT PRN; Protocol PRN Reason: Hypoglycemia Protocol Heparin Sodium (Porcine) (Heparin) 5,000 units SC Q8 [facility] PRN Reason: Protocol Last Admin: 10/23/17 10:07 Dose: Not Given Azithromycin 500 mg/ Sodium (Chloride) 250 mls @ 250 mls/hr IVPB DAILY [facility] PRN Reason: Protocol Last Admin: 10/23/17 10:13 Dose: 250 mls/hr Metronidazole (Flagyl 500mg/100ml Ns) 100 mls @ 100 mls/hr IVPB Q8 [facility] PRN Reason: Protocol Last Admin: 10/23/17 10:06 Dose: 100 mls/hr Meropenem 500 mg/ Sodium (Chloride) 100 mls @ 100 mls/hr IVPB Q8 [facility] PRN Reason: Protocol Last Admin: 10/23/17 10:09 Dose: 100 mls/hr Vancomycin HCl 1 gm/ Sodium (Chloride) 250 mls @ 125 mls/hr IVPB DAILY [facility] PRN Reason: Protocol Last Admin: 10/23/17 10:14 Dose: 125 mls/hr Sodium Bicarbonate 75 meq/ (Sodium Chloride) 1,075 mls @ 75 mls/hr IV .[id number] [facility] Stop: 10/24/17 06:40 Last Admin: 10/23/17 10:11 Dose: 75 mls/hr Norepinephrine Bitartrate 4 mg (/ Dextrose) 254 mls @ 20.95 mls/hr IV .[id number] [facility]; 5.5 MCG/MIN PRN Reason: Protocol Last Admin: 10/23/17 10:08 Dose: 5.5 mcg/min, 20.95 mls/hr Midazolam HCl 50 mg/ Sodium (Chloride) 100 mls @ 8 mls/hr IV .[id number] [facility]; 4 MG /HR PRN Reason: Protocol Stop: 10/23/17 19:29 Last Admin: 10/23/17 07:02 Dose: 9 mg/hr, 18 mls/hr Insulin Human Regular (Humulin R) 0 units SC Q4 [facility] PRN Reason: Protocol Mannitol (Mannitol) 12.5 gm IV Q15MIN [facility] Stop: 10/24/17 15:16 Pantoprazole Sodium (Protonix Inj) 40 mg IVP DAILY [facility] Last Admin: 10/23/17 10:11 Dose: 40 mg - Labs Labs: - Additional Findings Additional findings: - Constitutional Appears: Unkempt, Chronically Ill Additional comments: Intubated - Head Exam Head Exam: ATRAUMATIC - ENT Exam Additional comments: ET tube in place - Respiratory Exam Additional comments: on the ventilator breath sounds heard - Cardiovascular Exam Cardiovascular Exam: Tachycardia, +S1, +S2 - GI/Abdominal Exam Additional comments: slightly distended, soft, bowel sounds heard No guarding - Extremities Exam Additional comments: 1+ LE edema B/L - Neurological Exam Neurological exam: unresponsive except to painful stimuli Laboratory Results - last 72 hr 10/20/17 10/20/17 10/20/17 18:47 19:01 19:46 WBC RBC Hgb Hct MCV MCH MCHC RDW Plt Count MPV Neut % (Auto) Lymph % (Auto) [place] % (Auto) Eos % (Auto) Baso % (Auto) Neut # (Auto) Lymph # (Auto) [place] # (Auto) Eos # (Auto) Baso # (Auto) Neutrophils % (Manual) Band Neutrophils % Lymphocytes % (Manual) Reactive Lymphs % Monocytes % (Manual) Toxic Granulation Platelet Estimate Plt Clumps, EDTA Large Platelets Polychromasia Hypochromasia (manual) Poikilocytosis (manual Anisocytosis (manual) Microcytosis (manual) Target Cells Tear Drop Cells Ovalocytes [place] Cells PT INR APTT pCO2 13 L* pO2 199 H HCO3 0.3 L* ABG pH 6.80 L* ABG Total CO2 2.4 L ABG O2 Saturation 100.6 H ABG O2 Content ABG Base Excess -31.5 L ABG Hemoglobin ABG Carboxyhemoglobin POC ABG HHb (Measured) ABG Methemoglobin ABG O2 Capacity Arnoldo Test Yes ABG Potassium 7.2 H* VBG pH VBG pCO2 VBG O2 Sat (Calc) VBG Potassium A-a O2 Difference 498.0 Hgb O2 Saturation Sodium 126.0 L 135 Chloride 93.0 L 98 Glucose 295 H Lactate 5.7 H* Vent Mode Mechanical Rate FiO2 100.0 Tidal Volume PEEP Blood Gas Comments 100% mask Crit Value Called To Dr. sonam jeong Crit Value Called By Yumiko Crit Value Read Back Y Blood Gas Notified Time 1918 Potassium 6.9 H* D Carbon Dioxide < 5 L* D Anion Gap 39 H BUN 182 H* D Creatinine 21.8 H* D Est GFR ( Amer) 2 Est GFR (Non-Af Amer) 2 POC Glucose (mg/dL) 218 H Random Glucose 264 H Calcium 8.4 Phosphorus 15.7 H Magnesium 2.9 H Total Bilirubin 0.5 AST 23 ALT 21 Alkaline Phosphatase 129 H D Total Creatine Kinase Troponin I 0.0810 NT-Pro-B Natriuret Pep 4650 H Total Protein 6.9 Albumin 3.4 L D Globulin 3.5 Albumin/Globulin Ratio 1.0 Arterial Blood Potassium 7.2 H* Venous Blood Potassium Urine Color Urine Clarity Urine pH Ur Specific [place] Urine Protein Urine Glucose (UA) Urine Ketones Urine Blood Urine Nitrate Urine Bilirubin Urine Urobilinogen Ur Leukocyte Esterase Urine RBC (Auto) Urine WBC Clumps (Auto) Urine Microscopic WBC Stool Occult Blood Random Vancomycin Hep Bs Antigen Hep Bs Antibody Hep B Core IgM Ab Hepatitis C Antibody Blood Type Antibody Screen BBK History Checked 10/20/17 10/20/17 10/20/17 19:46 19:46 20:12 WBC 25.7 H D RBC 4.18 Hgb 11.1 L Hct 37.8 MCV 90.3 D MCH 26.5 L MCHC 29.4 L RDW 16.6 H Plt Count 673 H D MPV 7.8 Neut % (Auto) 89.4 H Lymph % (Auto) 7.3 L [place] % (Auto) 3.1 Eos % (Auto) 0.1 Baso % (Auto) 0.1 Neut # (Auto) 23.0 H Lymph # (Auto) 1.9 [place] # (Auto) 0.8 Eos # (Auto) 0.0 Baso # (Auto) 0.0 Neutrophils % (Manual) 81 H Band Neutrophils % 5 H Lymphocytes % (Manual) 8 L Reactive Lymphs % Monocytes % (Manual) 6 Toxic Granulation Present Platelet Estimate Increased H Plt Clumps, EDTA Large Platelets Present Polychromasia Hypochromasia (manual) Slight Poikilocytosis (manual Slight Anisocytosis (manual) Slight Microcytosis (manual) Target Cells Slight Tear Drop Cells Ovalocytes [place] Cells Slight PT 12.3 INR 1.1 APTT 21.5 L pCO2 pO2 HCO3 ABG pH ABG Total CO2 ABG O2 Saturation ABG O2 Content ABG Base Excess ABG Hemoglobin ABG Carboxyhemoglobin POC ABG HHb (Measured) ABG Methemoglobin ABG O2 Capacity Arnoldo Test ABG Potassium VBG pH VBG pCO2 VBG O2 Sat (Calc) VBG Potassium A-a O2 Difference Hgb O2 Saturation Sodium Chloride Glucose Lactate Vent Mode Mechanical Rate FiO2 Tidal Volume PEEP Blood Gas Comments Crit Value Called To Crit Value Called By Crit Value Read Back Blood Gas Notified Time Potassium Carbon Dioxide Anion Gap BUN Creatinine Est GFR ( Amer) Est GFR (Non-Af Amer) POC Glucose (mg/dL) 184 H Random Glucose Calcium Phosphorus Magnesium Total Bilirubin AST ALT Alkaline Phosphatase Total Creatine Kinase Troponin I NT-Pro-B Natriuret Pep Total Protein Albumin Globulin Albumin/Globulin Ratio Arterial Blood Potassium Venous Blood Potassium Urine Color Urine Clarity Urine pH Ur Specific [place] Urine Protein Urine Glucose (UA) Urine Ketones Urine Blood Urine Nitrate Urine Bilirubin Urine Urobilinogen Ur Leukocyte Esterase Urine RBC (Auto) Urine WBC Clumps (Auto) Urine Microscopic WBC Stool Occult Blood Random Vancomycin Hep Bs Antigen Hep Bs Antibody Hep B Core IgM Ab Hepatitis C Antibody Blood Type Antibody Screen BBK History Checked 10/20/17 10/21/17 10/21/17 20:32 00:36 00:41 WBC RBC Hgb Hct MCV MCH MCHC RDW Plt Count MPV Neut % (Auto) Lymph % (Auto) [place] % (Auto) Eos % (Auto) Baso % (Auto) Neut # (Auto) Lymph # (Auto) [place] # (Auto) Eos # (Auto) Baso # (Auto) Neutrophils % (Manual) Band Neutrophils % Lymphocytes % (Manual) Reactive Lymphs % Monocytes % (Manual) Toxic Granulation Platelet Estimate Plt Clumps, EDTA Large Platelets Polychromasia Hypochromasia (manual) Poikilocytosis (manual Anisocytosis (manual) Microcytosis (manual) Target Cells Tear Drop Cells Ovalocytes [place] Cells PT INR APTT pCO2 20 L pO2 256 H 646 H HCO3 1.3 L* ABG pH 6.80 L* ABG Total CO2 3.7 L ABG O2 Saturation 100.2 H ABG O2 Content ABG Base Excess -30.3 L ABG Hemoglobin ABG Carboxyhemoglobin POC ABG HHb (Measured) ABG Methemoglobin ABG O2 Capacity Arnoldo Test Yes ABG Potassium 6.8 H* VBG pH < 6.80 L* VBG pCO2 24 L VBG O2 Sat (Calc) 100.0 H VBG Potassium 6.8 H* A-a O2 Difference 42.0 Hgb O2 Saturation Sodium 130.0 L 130.0 L Chloride 102.0 102.0 Glucose 399 H 415 H* D Lactate 6.0 H* 6.0 H* Vent Mode A/c Mechanical Rate 14 FiO2 100.0 100.0 Tidal Volume 450 PEEP 5 5 Blood Gas Comments Crit Value Called To Dr wilber gonzalez Crit Value Called By Ashok Pulido Crit Value Read Back Y Y Blood Gas Notified Time 41 48 Potassium Carbon Dioxide Anion Gap BUN Creatinine Est GFR ( Amer) Est GFR (Non-Af Amer) POC Glucose (mg/dL) 224 H Random Glucose Calcium Phosphorus Magnesium Total Bilirubin AST ALT Alkaline Phosphatase Total Creatine Kinase Troponin I NT-Pro-B Natriuret Pep Total Protein Albumin Globulin Albumin/Globulin Ratio Arterial Blood Potassium 6.8 H* Venous Blood Potassium 6.8 H* Urine Color Urine Clarity Urine pH Ur Specific [place] Urine Protein Urine Glucose (UA) Urine Ketones Urine Blood Urine Nitrate Urine Bilirubin Urine Urobilinogen Ur Leukocyte Esterase Urine RBC (Auto) Urine WBC Clumps (Auto) Urine Microscopic WBC Stool Occult Blood Random Vancomycin Hep Bs Antigen Hep Bs Antibody Hep B Core IgM Ab Hepatitis C Antibody Blood Type Antibody Screen BBK History Checked 10/21/17 10/21/17 10/21/17 04:18 04:18 04:18 WBC 23.3 H RBC 3.71 L Hgb 9.9 L Hct 32.1 L MCV 86.5 D MCH 26.7 L MCHC 30.8 L RDW 16.0 H Plt Count 536 H D MPV 7.9 Neut % (Auto) 97.7 H Lymph % (Auto) 1.3 L [place] % (Auto) 0.6 Eos % (Auto) 0.3 Baso % (Auto) 0.1 Neut # (Auto) 22.7 H Lymph # (Auto) 0.3 L [place] # (Auto) 0.1 Eos # (Auto) 0.1 Baso # (Auto) 0.0 Neutrophils % (Manual) 99 H Band Neutrophils % Lymphocytes % (Manual) 1 L Reactive Lymphs % Monocytes % (Manual) TEST NOT PERFORMED Toxic Granulation Platelet Estimate Increased H Plt Clumps, EDTA Present Large Platelets Polychromasia Hypochromasia (manual) Slight Poikilocytosis (manual Slight Anisocytosis (manual) Slight Microcytosis (manual) Target Cells Tear Drop Cells Slight Ovalocytes Slight [place] Cells PT INR APTT pCO2 pO2 HCO3 ABG pH ABG Total CO2 ABG O2 Saturation ABG O2 Content ABG Base Excess ABG Hemoglobin ABG Carboxyhemoglobin POC ABG HHb (Measured) ABG Methemoglobin ABG O2 Capacity Arnoldo Test ABG Potassium VBG pH VBG pCO2 VBG O2 Sat (Calc) VBG Potassium A-a O2 Difference Hgb O2 Saturation Sodium 137 Chloride 95 L Glucose Lactate Vent Mode Mechanical Rate FiO2 Tidal Volume PEEP Blood Gas Comments Crit Value Called To Crit Value Called By Crit Value Read Back Blood Gas Notified Time Potassium 6.2 H* Carbon Dioxide 6 L* D Anion Gap 42 H BUN 146 H* Creatinine 15.4 H* D Est GFR ( Amer) 3 Est GFR (Non-Af Amer) 2 POC Glucose (mg/dL) Random Glucose 564 H* D Calcium 7.1 L Phosphorus Magnesium Total Bilirubin AST ALT Alkaline Phosphatase Total Creatine Kinase Troponin I 0.1040 NT-Pro-B Natriuret Pep Total Protein Albumin Globulin Albumin/Globulin Ratio Arterial Blood Potassium Venous Blood Potassium Urine Color Urine Clarity Urine pH Ur Specific [place] Urine Protein Urine Glucose (UA) Urine Ketones Urine Blood Urine Nitrate Urine Bilirubin Urine Urobilinogen Ur Leukocyte Esterase Urine RBC (Auto) Urine WBC Clumps (Auto) Urine Microscopic WBC Stool Occult Blood Random Vancomycin Hep Bs Antigen Negative Hep Bs Antibody Hep B Core IgM Ab Negative Hepatitis C Antibody Negative Blood Type Antibody Screen BBK History Checked 10/21/17 10/21/17 10/21/17 04:18 04:18 06:08 WBC RBC Hgb Hct MCV MCH MCHC RDW Plt Count MPV Neut % (Auto) Lymph % (Auto) [place] % (Auto) Eos % (Auto) Baso % (Auto) Neut # (Auto) Lymph # (Auto) [place] # (Auto) Eos # (Auto) Baso # (Auto) Neutrophils % (Manual) Band Neutrophils % Lymphocytes % (Manual) Reactive Lymphs % Monocytes % (Manual) Toxic Granulation Platelet Estimate Plt Clumps, EDTA Large Platelets Polychromasia Hypochromasia (manual) Poikilocytosis (manual Anisocytosis (manual) Microcytosis (manual) Target Cells Tear Drop Cells Ovalocytes [place] Cells PT INR APTT 33.2 D pCO2 pO2 HCO3 ABG pH ABG Total CO2 ABG O2 Saturation ABG O2 Content ABG Base Excess ABG Hemoglobin ABG Carboxyhemoglobin POC ABG HHb (Measured) ABG Methemoglobin ABG O2 Capacity Arnoldo Test ABG Potassium VBG pH VBG pCO2 VBG O2 Sat (Calc) VBG Potassium A-a O2 Difference Hgb O2 Saturation Sodium Chloride Glucose Lactate Vent Mode Mechanical Rate FiO2 Tidal Volume PEEP Blood Gas Comments Crit Value Called To Crit Value Called By Crit Value Read Back Blood Gas Notified Time Potassium Carbon Dioxide Anion Gap BUN Creatinine Est GFR ( Amer) Est GFR (Non-Af Amer) POC Glucose (mg/dL) 454 H* Random Glucose Calcium Phosphorus Magnesium Total Bilirubin AST ALT Alkaline Phosphatase Total Creatine Kinase Troponin I NT-Pro-B Natriuret Pep Total Protein Albumin Globulin Albumin/Globulin Ratio Arterial Blood Potassium Venous Blood Potassium Urine Color Urine Clarity Urine pH Ur Specific [place] Urine Protein Urine Glucose (UA) Urine Ketones Urine Blood Urine Nitrate Urine Bilirubin Urine Urobilinogen Ur Leukocyte Esterase Urine RBC (Auto) Urine WBC Clumps (Auto) Urine Microscopic WBC Stool Occult Blood Random Vancomycin Hep Bs Antigen Hep Bs Antibody Negative Hep B Core IgM Ab Hepatitis C Antibody Blood Type Antibody Screen BBK History Checked 10/21/17 10/21/17 10/21/17 10:10 11:15 13:36 WBC RBC Hgb Hct MCV MCH MCHC RDW Plt Count MPV Neut % (Auto) Lymph % (Auto) [place] % (Auto) Eos % (Auto) Baso % (Auto) Neut # (Auto) Lymph # (Auto) [place] # (Auto) Eos # (Auto) Baso # (Auto) Neutrophils % (Manual) Band Neutrophils % Lymphocytes % (Manual) Reactive Lymphs % Monocytes % (Manual) Toxic Granulation Platelet Estimate Plt Clumps, EDTA Large Platelets Polychromasia Hypochromasia (manual) Poikilocytosis (manual Anisocytosis (manual) Microcytosis (manual) Target Cells Tear Drop Cells Ovalocytes [place] Cells PT INR APTT pCO2 21 L pO2 250 H HCO3 14.3 L ABG pH 7.32 L ABG Total CO2 11.4 L ABG O2 Saturation 99.5 H ABG O2 Content 13.3 L ABG Base Excess -13.7 L ABG Hemoglobin 9.2 L ABG Carboxyhemoglobin 0.6 POC ABG HHb (Measured) 0.5 ABG Methemoglobin 1.0 ABG O2 Capacity 13.4 L Arnoldo Test Yes ABG Potassium VBG pH VBG pCO2 VBG O2 Sat (Calc) VBG Potassium A-a O2 Difference 80.0 Hgb O2 Saturation 97.9 Sodium Chloride Glucose Lactate Vent Mode A/cprc Mechanical Rate 1 FiO2 50.0 Tidal Volume 450 PEEP 5 Blood Gas Comments Crit Value Called To Crit Value Called By Crit Value Read Back Blood Gas Notified Time Potassium Carbon Dioxide Anion Gap BUN Creatinine Est GFR ( Amer) Est GFR (Non-Af Amer) POC Glucose (mg/dL) > 500 H* 490 H* Random Glucose Calcium Phosphorus Magnesium Total Bilirubin AST ALT Alkaline Phosphatase Total Creatine Kinase Troponin I NT-Pro-B Natriuret Pep Total Protein Albumin Globulin Albumin/Globulin Ratio Arterial Blood Potassium Venous Blood Potassium Urine Color Urine Clarity Urine pH Ur Specific [place] Urine Protein Urine Glucose (UA) Urine Ketones Urine Blood Urine Nitrate Urine Bilirubin Urine Urobilinogen Ur Leukocyte Esterase Urine RBC (Auto) Urine WBC Clumps (Auto) Urine Microscopic WBC Stool Occult Blood Random Vancomycin Hep Bs Antigen Hep Bs Antibody Hep B Core IgM Ab Hepatitis C Antibody Blood Type Antibody Screen BBK History Checked 10/21/17 10/21/17 10/21/17 14:30 15:30 15:30 WBC RBC Hgb Hct MCV MCH MCHC RDW Plt Count MPV Neut % (Auto) Lymph % (Auto) [place] % (Auto) Eos % (Auto) Baso % (Auto) Neut # (Auto) Lymph # (Auto) [place] # (Auto) Eos # (Auto) Baso # (Auto) Neutrophils % (Manual) Band Neutrophils % Lymphocytes % (Manual) Reactive Lymphs % Monocytes % (Manual) Toxic Granulation Platelet Estimate Plt Clumps, EDTA Large Platelets Polychromasia Hypochromasia (manual) Poikilocytosis (manual Anisocytosis (manual) Microcytosis (manual) Target Cells Tear Drop Cells Ovalocytes [place] Cells PT INR APTT pCO2 pO2 HCO3 ABG pH ABG Total CO2 ABG O2 Saturation ABG O2 Content ABG Base Excess ABG Hemoglobin ABG Carboxyhemoglobin POC ABG HHb (Measured) ABG Methemoglobin ABG O2 Capacity Arnoldo Test ABG Potassium VBG pH VBG pCO2 VBG O2 Sat (Calc) VBG Potassium A-a O2 Difference Hgb O2 Saturation Sodium 132 Chloride 87 L Glucose Lactate Vent Mode Mechanical Rate FiO2 Tidal Volume PEEP Blood Gas Comments Crit Value Called To Crit Value Called By Crit Value Read Back Blood Gas Notified Time Potassium 3.8 Carbon Dioxide 16 L Anion Gap 33 H BUN 131 H* Creatinine 12.8 H* Est GFR ( Amer) 3 Est GFR (Non-Af Amer) 3 POC Glucose (mg/dL) 478 H* Random Glucose 678 H* D Calcium 6.2 L Phosphorus Magnesium Total Bilirubin AST ALT Alkaline Phosphatase Total Creatine Kinase 81 Troponin I NT-Pro-B Natriuret Pep Total Protein Albumin Globulin Albumin/Globulin Ratio Arterial Blood Potassium Venous Blood Potassium Urine Color Urine Clarity Urine pH Ur Specific [place] Urine Protein Urine Glucose (UA) Urine Ketones Urine Blood Urine Nitrate Urine Bilirubin Urine Urobilinogen Ur Leukocyte Esterase Urine RBC (Auto) Urine WBC Clumps (Auto) Urine Microscopic WBC Stool Occult Blood Random Vancomycin 7.0 Hep Bs Antigen Hep Bs Antibody Hep B Core IgM Ab Hepatitis C Antibody Blood Type Antibody Screen BBK History Checked 10/21/17 10/21/17 10/21/17 15:37 16:29 17:38 WBC RBC Hgb Hct MCV MCH MCHC RDW Plt Count MPV Neut % (Auto) Lymph % (Auto) [place] % (Auto) Eos % (Auto) Baso % (Auto) Neut # (Auto) Lymph # (Auto) [place] # (Auto) Eos # (Auto) Baso # (Auto) Neutrophils % (Manual) Band Neutrophils % Lymphocytes % (Manual) Reactive Lymphs % Monocytes % (Manual) Toxic Granulation Platelet Estimate Plt Clumps, EDTA Large Platelets Polychromasia Hypochromasia (manual) Poikilocytosis (manual Anisocytosis (manual) Microcytosis (manual) Target Cells Tear Drop Cells Ovalocytes [place] Cells PT INR APTT pCO2 pO2 HCO3 ABG pH ABG Total CO2 ABG O2 Saturation ABG O2 Content ABG Base Excess ABG Hemoglobin ABG Carboxyhemoglobin POC ABG HHb (Measured) ABG Methemoglobin ABG O2 Capacity Arnoldo Test ABG Potassium VBG pH VBG pCO2 VBG O2 Sat (Calc) VBG Potassium A-a O2 Difference Hgb O2 Saturation Sodium Chloride Glucose Lactate Vent Mode Mechanical Rate FiO2 Tidal Volume PEEP Blood Gas Comments Crit Value Called To Crit Value Called By Crit Value Read Back Blood Gas Notified Time Potassium Carbon Dioxide Anion Gap BUN Creatinine Est GFR ( Amer) Est GFR (Non-Af Amer) POC Glucose (mg/dL) > 500 H* 470 H* 329 H Random Glucose Calcium Phosphorus Magnesium Total Bilirubin AST ALT Alkaline Phosphatase Total Creatine Kinase Troponin I NT-Pro-B Natriuret Pep Total Protein Albumin Globulin Albumin/Globulin Ratio Arterial Blood Potassium Venous Blood Potassium Urine Color Urine Clarity Urine pH Ur Specific [place] Urine Protein Urine Glucose (UA) Urine Ketones Urine Blood Urine Nitrate Urine Bilirubin Urine Urobilinogen Ur Leukocyte Esterase Urine RBC (Auto) Urine WBC Clumps (Auto) Urine Microscopic WBC Stool Occult Blood Random Vancomycin Hep Bs Antigen Hep Bs Antibody Hep B Core IgM Ab Hepatitis C Antibody Blood Type Antibody Screen BBK History Checked 10/21/17 10/21/17 10/21/17 18:32 19:50 20:36 WBC RBC Hgb Hct MCV MCH MCHC RDW Plt Count MPV Neut % (Auto) Lymph % (Auto) [place] % (Auto) Eos % (Auto) Baso % (Auto) Neut # (Auto) Lymph # (Auto) [place] # (Auto) Eos # (Auto) Baso # (Auto) Neutrophils % (Manual) Band Neutrophils % Lymphocytes % (Manual) Reactive Lymphs % Monocytes % (Manual) Toxic Granulation Platelet Estimate Plt Clumps, EDTA Large Platelets Polychromasia Hypochromasia (manual) Poikilocytosis (manual Anisocytosis (manual) Microcytosis (manual) Target Cells Tear Drop Cells Ovalocytes [place] Cells PT INR APTT pCO2 pO2 HCO3 ABG pH ABG Total CO2 ABG O2 Saturation ABG O2 Content ABG Base Excess ABG Hemoglobin ABG Carboxyhemoglobin POC ABG HHb (Measured) ABG Methemoglobin ABG O2 Capacity Arnoldo Test ABG Potassium VBG pH VBG pCO2 VBG O2 Sat (Calc) VBG Potassium A-a O2 Difference Hgb O2 Saturation Sodium Chloride Glucose Lactate Vent Mode Mechanical Rate FiO2 Tidal Volume PEEP Blood Gas Comments Crit Value Called To Crit Value Called By Crit Value Read Back Blood Gas Notified Time Potassium Carbon Dioxide Anion Gap BUN Creatinine Est GFR ( Amer) Est GFR (Non-Af Amer) POC Glucose (mg/dL) 289 H 251 H 188 H Random Glucose Calcium Phosphorus Magnesium Total Bilirubin AST ALT Alkaline Phosphatase Total Creatine Kinase Troponin I NT-Pro-B Natriuret Pep Total Protein Albumin Globulin Albumin/Globulin Ratio Arterial Blood Potassium Venous Blood Potassium Urine Color Urine Clarity Urine pH Ur Specific [place] Urine Protein Urine Glucose (UA) Urine Ketones Urine Blood Urine Nitrate Urine Bilirubin Urine Urobilinogen Ur Leukocyte Esterase Urine RBC (Auto) Urine WBC Clumps (Auto) Urine Microscopic WBC Stool Occult Blood Random Vancomycin Hep Bs Antigen Hep Bs Antibody Hep B Core IgM Ab Hepatitis C Antibody Blood Type Antibody Screen BBK History Checked 10/21/17 10/21/17 10/21/17 21:26 22:33 23:35 WBC RBC Hgb Hct MCV MCH MCHC RDW Plt Count MPV Neut % (Auto) Lymph % (Auto) [place] % (Auto) Eos % (Auto) Baso % (Auto) Neut # (Auto) Lymph # (Auto) [place] # (Auto) Eos # (Auto) Baso # (Auto) Neutrophils % (Manual) Band Neutrophils % Lymphocytes % (Manual) Reactive Lymphs % Monocytes % (Manual) Toxic Granulation Platelet Estimate Plt Clumps, EDTA Large Platelets Polychromasia Hypochromasia (manual) Poikilocytosis (manual Anisocytosis (manual) Microcytosis (manual) Target Cells Tear Drop Cells Ovalocytes [place] Cells PT INR APTT pCO2 pO2 HCO3 ABG pH ABG Total CO2 ABG O2 Saturation ABG O2 Content ABG Base Excess ABG Hemoglobin ABG Carboxyhemoglobin POC ABG HHb (Measured) ABG Methemoglobin ABG O2 Capacity Arnoldo Test ABG Potassium VBG pH VBG pCO2 VBG O2 Sat (Calc) VBG Potassium A-a O2 Difference Hgb O2 Saturation Sodium Chloride Glucose Lactate Vent Mode Mechanical Rate FiO2 Tidal Volume PEEP Blood Gas Comments Crit Value Called To Crit Value Called By Crit Value Read Back Blood Gas Notified Time Potassium Carbon Dioxide Anion Gap BUN Creatinine Est GFR ( Amer) Est GFR (Non-Af Amer) POC Glucose (mg/dL) 215 H 205 H 193 H Random Glucose Calcium Phosphorus Magnesium Total Bilirubin AST ALT Alkaline Phosphatase Total Creatine Kinase Troponin I NT-Pro-B Natriuret Pep Total Protein Albumin Globulin Albumin/Globulin Ratio Arterial Blood Potassium Venous Blood Potassium Urine Color Urine Clarity Urine pH Ur Specific [place] Urine Protein Urine Glucose (UA) Urine Ketones Urine Blood Urine Nitrate Urine Bilirubin Urine Urobilinogen Ur Leukocyte Esterase Urine RBC (Auto) Urine WBC Clumps (Auto) Urine Microscopic WBC Stool Occult Blood Random Vancomycin Hep Bs Antigen Hep Bs Antibody Hep B Core IgM Ab Hepatitis C Antibody Blood Type Antibody Screen BBK History Checked 10/22/17 10/22/17 10/22/17 00:38 01:34 02:35 WBC RBC Hgb Hct MCV MCH MCHC RDW Plt Count MPV Neut % (Auto) Lymph % (Auto) [place] % (Auto) Eos % (Auto) Baso % (Auto) Neut # (Auto) Lymph # (Auto) [place] # (Auto) Eos # (Auto) Baso # (Auto) Neutrophils % (Manual) Band Neutrophils % Lymphocytes % (Manual) Reactive Lymphs % Monocytes % (Manual) Toxic Granulation Platelet Estimate Plt Clumps, EDTA Large Platelets Polychromasia Hypochromasia (manual) Poikilocytosis (manual Anisocytosis (manual) Microcytosis (manual) Target Cells Tear Drop Cells Ovalocytes [place] Cells PT INR APTT pCO2 pO2 HCO3 ABG pH ABG Total CO2 ABG O2 Saturation ABG O2 Content ABG Base Excess ABG Hemoglobin ABG Carboxyhemoglobin POC ABG HHb (Measured) ABG Methemoglobin ABG O2 Capacity Arnoldo Test ABG Potassium VBG pH VBG pCO2 VBG O2 Sat (Calc) VBG Potassium A-a O2 Difference Hgb O2 Saturation Sodium Chloride Glucose Lactate Vent Mode Mechanical Rate FiO2 Tidal Volume PEEP Blood Gas Comments Crit Value Called To Crit Value Called By Crit Value Read Back Blood Gas Notified Time Potassium Carbon Dioxide Anion Gap BUN Creatinine Est GFR ( Amer) Est GFR (Non-Af Amer) POC Glucose (mg/dL) 164 H 136 H 186 H Random Glucose Calcium Phosphorus Magnesium Total Bilirubin AST ALT Alkaline Phosphatase Total Creatine Kinase Troponin I NT-Pro-B Natriuret Pep Total Protein Albumin Globulin Albumin/Globulin Ratio Arterial Blood Potassium Venous Blood Potassium Urine Color Urine Clarity Urine pH Ur Specific [place] Urine Protein Urine Glucose (UA) Urine Ketones Urine Blood Urine Nitrate Urine Bilirubin Urine Urobilinogen Ur Leukocyte Esterase Urine RBC (Auto) Urine WBC Clumps (Auto) Urine Microscopic WBC Stool Occult Blood Random Vancomycin Hep Bs Antigen Hep Bs Antibody Hep B Core IgM Ab Hepatitis C Antibody Blood Type Antibody Screen BBK History Checked 10/22/17 10/22/17 10/22/17 03:27 04:01 04:30 WBC RBC Hgb Hct MCV MCH MCHC RDW Plt Count MPV Neut % (Auto) Lymph % (Auto) [place] % (Auto) Eos % (Auto) Baso % (Auto) Neut # (Auto) Lymph # (Auto) [place] # (Auto) Eos # (Auto) Baso # (Auto) Neutrophils % (Manual) Band Neutrophils % Lymphocytes % (Manual) Reactive Lymphs % Monocytes % (Manual) Toxic Granulation Platelet Estimate Plt Clumps, EDTA Large Platelets Polychromasia Hypochromasia (manual) Poikilocytosis (manual Anisocytosis (manual) Microcytosis (manual) Target Cells Tear Drop Cells Ovalocytes [place]lette Cells PT INR APTT pCO2 31 L pO2 252 H HCO3 23.8 ABG pH 7.46 H ABG Total CO2 23.0 ABG O2 Saturation 100.7 H ABG O2 Content 11.5 L ABG Base Excess -1.5 ABG Hemoglobin 7.8 L ABG Carboxyhemoglobin 1.2 POC ABG HHb (Measured) -0.7 L ABG Methemoglobin 0.5 ABG O2 Capacity 11.4 L Arnoldo Test Yes ABG Potassium VBG pH VBG pCO2 VBG O2 Sat (Calc) VBG Potassium A-a O2 Difference 66.0 Hgb O2 Saturation 99.0 H Sodium Chloride Glucose Lactate Vent Mode Prvc ac Mechanical Rate 14 FiO2 50.0 Tidal Volume 450 PEEP 5 Blood Gas Comments Crit Value Called To Crit Value Called By Crit Value Read Back Blood Gas Notified Time Potassium Carbon Dioxide Anion Gap BUN Creatinine Est GFR ( Amer) Est GFR (Non-Af Amer) POC Glucose (mg/dL) 176 H 153 H Random Glucose Calcium Phosphorus Magnesium Total Bilirubin AST ALT Alkaline Phosphatase Total Creatine Kinase Troponin I NT-Pro-B Natriuret Pep Total Protein Albumin Globulin Albumin/Globulin Ratio Arterial Blood Potassium Venous Blood Potassium Urine Color Urine Clarity Urine pH Ur Specific [place] Urine Protein Urine Glucose (UA) Urine Ketones Urine Blood Urine Nitrate Urine Bilirubin Urine Urobilinogen Ur Leukocyte Esterase Urine RBC (Auto) Urine WBC Clumps (Auto) Urine Microscopic WBC Stool Occult Blood Random Vancomycin Hep Bs Antigen Hep Bs Antibody Hep B Core IgM Ab Hepatitis C Antibody Blood Type Antibody Screen BBK History Checked 10/22/17 10/22/17 10/22/17 05:34 06:00 06:00 WBC 31.4 H RBC 2.90 L Hgb 7.9 L D Hct 24.1 L MCV 83.1 D MCH 27.1 MCHC 32.7 L RDW 15.1 H Plt Count 315 D MPV 7.3 Neut % (Auto) 92.6 H Lymph % (Auto) 2.6 L [place] % (Auto) 4.6 Eos % (Auto) 0.1 Baso % (Auto) 0.1 Neut # (Auto) 29.1 H Lymph # (Auto) 0.8 L [place] # (Auto) 1.4 H Eos # (Auto) 0.0 Baso # (Auto) 0.0 Neutrophils % (Manual) 88 H Band Neutrophils % 2 Lymphocytes % (Manual) 4 L Reactive Lymphs % 2 H Monocytes % (Manual) 4 Toxic Granulation Platelet Estimate Normal Plt Clumps, EDTA Large Platelets Present Polychromasia Slight Hypochromasia (manual) Slight Poikilocytosis (manual Slight Anisocytosis (manual) Moderate Microcytosis (manual) Moderate Target Cells Slight Tear Drop Cells Ovalocytes Slight Colette Cells PT INR APTT pCO2 pO2 HCO3 ABG pH ABG Total CO2 ABG O2 Saturation ABG O2 Content ABG Base Excess ABG Hemoglobin ABG Carboxyhemoglobin POC ABG HHb (Measured) ABG Methemoglobin ABG O2 Capacity Arnoldo Test ABG Potassium VBG pH VBG pCO2 VBG O2 Sat (Calc) VBG Potassium A-a O2 Difference Hgb O2 Saturation Sodium 140 Chloride 94 L Glucose Lactate Vent Mode Mechanical Rate FiO2 Tidal Volume PEEP Blood Gas Comments Crit Value Called To Crit Value Called By Crit Value Read Back Blood Gas Notified Time Potassium 3.3 L Carbon Dioxide 22 Anion Gap 27 H BUN 65 H Creatinine 7.3 H Est GFR ( Amer) 7 Est GFR (Non-Af Amer) 5 POC Glucose (mg/dL) 192 H Random Glucose 175 H Calcium 7.1 L Phosphorus 4.1 Magnesium 1.7 Total Bilirubin 0.4 AST 43 H D ALT 30 Alkaline Phosphatase 95 Total Creatine Kinase Troponin I NT-Pro-B Natriuret Pep Total Protein 5.3 L Albumin 2.7 L D Globulin 2.6 Albumin/Globulin Ratio 1.0 Arterial Blood Potassium Venous Blood Potassium Urine Color Urine Clarity Urine pH Ur Specific [place] Urine Protein Urine Glucose (UA) Urine Ketones Urine Blood Urine Nitrate Urine Bilirubin Urine Urobilinogen Ur Leukocyte Esterase Urine RBC (Auto) Urine WBC Clumps (Auto) Urine Microscopic WBC Stool Occult Blood Random Vancomycin Hep Bs Antigen Hep Bs Antibody Hep B Core IgM Ab Hepatitis C Antibody Blood Type Antibody Screen BBK History Checked 10/22/17 10/22/17 10/22/17 06:31 07:48 09:37 WBC RBC Hgb Hct MCV MCH MCHC RDW Plt Count MPV Neut % (Auto) Lymph % (Auto) [place] % (Auto) Eos % (Auto) Baso % (Auto) Neut # (Auto) Lymph # (Auto) [place] # (Auto) Eos # (Auto) Baso # (Auto) Neutrophils % (Manual) Band Neutrophils % Lymphocytes % (Manual) Reactive Lymphs % Monocytes % (Manual) Toxic Granulation Platelet Estimate Plt Clumps, EDTA Large Platelets Polychromasia Hypochromasia (manual) Poikilocytosis (manual Anisocytosis (manual) Microcytosis (manual) Target Cells Tear Drop Cells Ovalocytes [place] Cells PT INR APTT pCO2 pO2 HCO3 ABG pH ABG Total CO2 ABG O2 Saturation ABG O2 Content ABG Base Excess ABG Hemoglobin ABG Carboxyhemoglobin POC ABG HHb (Measured) ABG Methemoglobin ABG O2 Capacity Arnoldo Test ABG Potassium VBG pH VBG pCO2 VBG O2 Sat (Calc) VBG Potassium A-a O2 Difference Hgb O2 Saturation Sodium Chloride Glucose Lactate Vent Mode Mechanical Rate FiO2 Tidal Volume PEEP Blood Gas Comments Crit Value Called To Crit Value Called By Crit Value Read Back Blood Gas Notified Time Potassium Carbon Dioxide Anion Gap BUN Creatinine Est GFR ( Amer) Est GFR (Non-Af Amer) POC Glucose (mg/dL) 168 H 182 H 166 H Random Glucose Calcium Phosphorus Magnesium Total Bilirubin AST ALT Alkaline Phosphatase Total Creatine Kinase Troponin I NT-Pro-B Natriuret Pep Total Protein Albumin Globulin Albumin/Globulin Ratio Arterial Blood Potassium Venous Blood Potassium Urine Color Urine Clarity Urine pH Ur Specific [place] Urine Protein Urine Glucose (UA) Urine Ketones Urine Blood Urine Nitrate Urine Bilirubin Urine Urobilinogen Ur Leukocyte Esterase Urine RBC (Auto) Urine WBC Clumps (Auto) Urine Microscopic WBC Stool Occult Blood Random Vancomycin Hep Bs Antigen Hep Bs Antibody Hep B Core IgM Ab Hepatitis C Antibody Blood Type Antibody Screen BBK History Checked 10/22/17 10/22/17 10/22/17 11:48 14:18 15:04 WBC RBC Hgb Hct MCV MCH MCHC RDW Plt Count MPV Neut % (Auto) Lymph % (Auto) [place] % (Auto) Eos % (Auto) Baso % (Auto) Neut # (Auto) Lymph # (Auto) [place] # (Auto) Eos # (Auto) Baso # (Auto) Neutrophils % (Manual) Band Neutrophils % Lymphocytes % (Manual) Reactive Lymphs % Monocytes % (Manual) Toxic Granulation Platelet Estimate Plt Clumps, EDTA Large Platelets Polychromasia Hypochromasia (manual) Poikilocytosis (manual Anisocytosis (manual) Microcytosis (manual) Target Cells Tear Drop Cells Ovalocytes [place] Cells PT INR APTT pCO2 pO2 HCO3 ABG pH ABG Total CO2 ABG O2 Saturation ABG O2 Content ABG Base Excess ABG Hemoglobin ABG Carboxyhemoglobin POC ABG HHb (Measured) ABG Methemoglobin ABG O2 Capacity Arnoldo Test ABG Potassium VBG pH VBG pCO2 VBG O2 Sat (Calc) VBG Potassium A-a O2 Difference Hgb O2 Saturation Sodium Chloride Glucose Lactate Vent Mode Mechanical Rate FiO2 Tidal Volume PEEP Blood Gas Comments Crit Value Called To Crit Value Called By Crit Value Read Back Blood Gas Notified Time Potassium Carbon Dioxide Anion Gap BUN Creatinine Est GFR ( Amer) Est GFR (Non-Af Amer) POC Glucose (mg/dL) 174 H 145 H 154 H Random Glucose Calcium Phosphorus Magnesium Total Bilirubin AST ALT Alkaline Phosphatase Total Creatine Kinase Troponin I NT-Pro-B Natriuret Pep Total Protein Albumin Globulin Albumin/Globulin Ratio Arterial Blood Potassium Venous Blood Potassium Urine Color Urine Clarity Urine pH Ur Specific [place] Urine Protein Urine Glucose (UA) Urine Ketones Urine Blood Urine Nitrate Urine Bilirubin Urine Urobilinogen Ur Leukocyte Esterase Urine RBC (Auto) Urine WBC Clumps (Auto) Urine Microscopic WBC Stool Occult Blood Random Vancomycin Hep Bs Antigen Hep Bs Antibody Hep B Core IgM Ab Hepatitis C Antibody Blood Type Antibody Screen BBK History Checked 10/22/17 10/22/17 10/22/17 16:42 18:32 20:15 WBC RBC Hgb Hct MCV MCH MCHC RDW Plt Count MPV Neut % (Auto) Lymph % (Auto) [place] % (Auto) Eos % (Auto) Baso % (Auto) Neut # (Auto) Lymph # (Auto) [place] # (Auto) Eos # (Auto) Baso # (Auto) Neutrophils % (Manual) Band Neutrophils % Lymphocytes % (Manual) Reactive Lymphs % Monocytes % (Manual) Toxic Granulation Platelet Estimate Plt Clumps, EDTA Large Platelets Polychromasia Hypochromasia (manual) Poikilocytosis (manual Anisocytosis (manual) Microcytosis (manual) Target Cells Tear Drop Cells Ovalocytes [place] Cells PT INR APTT pCO2 pO2 HCO3 ABG pH ABG Total CO2 ABG O2 Saturation ABG O2 Content ABG Base Excess ABG Hemoglobin ABG Carboxyhemoglobin POC ABG HHb (Measured) ABG Methemoglobin ABG O2 Capacity Arnoldo Test ABG Potassium VBG pH VBG pCO2 VBG O2 Sat (Calc) VBG Potassium A-a O2 Difference Hgb O2 Saturation Sodium Chloride Glucose Lactate Vent Mode Mechanical Rate FiO2 Tidal Volume PEEP Blood Gas Comments Crit Value Called To Crit Value Called By Crit Value Read Back Blood Gas Notified Time Potassium Carbon Dioxide Anion Gap BUN Creatinine Est GFR ( Amer) Est GFR (Non-Af Amer) POC Glucose (mg/dL) 170 H 124 H Random Glucose Calcium Phosphorus Magnesium Total Bilirubin AST ALT Alkaline Phosphatase Total Creatine Kinase Troponin I NT-Pro-B Natriuret Pep Total Protein Albumin Globulin Albumin/Globulin Ratio Arterial Blood Potassium Venous Blood Potassium Urine Color Urine Clarity Urine pH Ur Specific [place] Urine Protein Urine Glucose (UA) Urine Ketones Urine Blood Urine Nitrate Urine Bilirubin Urine Urobilinogen Ur Leukocyte Esterase Urine RBC (Auto) Urine WBC Clumps (Auto) Urine Microscopic WBC Stool Occult Blood Random Vancomycin Hep Bs Antigen Hep Bs Antibody Hep B Core IgM Ab Hepatitis C Antibody Blood Type A POSITIVE Antibody Screen Negative BBK History Checked Patient has bt 10/22/17 10/22/17 10/22/17 20:15 20:15 20:15 WBC 30.1 H RBC 2.83 L Hgb 7.7 L Hct 23.9 L MCV 84.6 MCH 27.1 MCHC 32.0 L RDW 15.7 H Plt Count 264 MPV Neut % (Auto) Lymph % (Auto) [place] % (Auto) Eos % (Auto) Baso % (Auto) Neut # (Auto) Lymph # (Auto) [place] # (Auto) Eos # (Auto) Baso # (Auto) Neutrophils % (Manual) Band Neutrophils % Lymphocytes % (Manual) Reactive Lymphs % Monocytes % (Manual) Toxic Granulation Platelet Estimate Plt Clumps, EDTA Large Platelets Polychromasia Hypochromasia (manual) Poikilocytosis (manual Anisocytosis (manual) Microcytosis (manual) Target Cells Tear Drop Cells Ovalocytes [place] Cells PT INR APTT pCO2 pO2 HCO3 ABG pH ABG Total CO2 ABG O2 Saturation ABG O2 Content ABG Base Excess ABG Hemoglobin ABG Carboxyhemoglobin POC ABG HHb (Measured) ABG Methemoglobin ABG O2 Capacity Arnoldo Test ABG Potassium VBG pH VBG pCO2 VBG O2 Sat (Calc) VBG Potassium A-a O2 Difference Hgb O2 Saturation Sodium 136 Chloride 97 L Glucose Lactate Vent Mode Mechanical Rate FiO2 Tidal Volume PEEP Blood Gas Comments Crit Value Called To Crit Value Called By Crit Value Read Back Blood Gas Notified Time Potassium 3.2 L Carbon Dioxide 16 L Anion Gap 26 H BUN 65 H Creatinine 7.6 H* Est GFR ( Amer) 6 Est GFR (Non-Af Amer) 5 POC Glucose (mg/dL) Random Glucose 142 H Calcium 7.1 L Phosphorus Magnesium Total Bilirubin AST ALT Alkaline Phosphatase Total Creatine Kinase Troponin I NT-Pro-B Natriuret Pep Total Protein Albumin Globulin Albumin/Globulin Ratio Arterial Blood Potassium Venous Blood Potassium Urine Color Urine Clarity Urine pH Ur Specific [place] Urine Protein Urine Glucose (UA) Urine Ketones Urine Blood Urine Nitrate Urine Bilirubin Urine Urobilinogen Ur Leukocyte Esterase Urine RBC (Auto) Urine WBC Clumps (Auto) Urine Microscopic WBC Stool Occult Blood Positive H Random Vancomycin Hep Bs Antigen Hep Bs Antibody Hep B Core IgM Ab Hepatitis C Antibody Blood Type Antibody Screen BBK History Checked 10/22/17 10/22/17 10/23/17 20:31 22:33 00:25 WBC RBC Hgb Hct MCV MCH MCHC RDW Plt Count MPV Neut % (Auto) Lymph % (Auto) [place] % (Auto) Eos % (Auto) Baso % (Auto) Neut # (Auto) Lymph # (Auto) [place] # (Auto) Eos # (Auto) Baso # (Auto) Neutrophils % (Manual) Band Neutrophils % Lymphocytes % (Manual) Reactive Lymphs % Monocytes % (Manual) Toxic Granulation Platelet Estimate Plt Clumps, EDTA Large Platelets Polychromasia Hypochromasia (manual) Poikilocytosis (manual Anisocytosis (manual) Microcytosis (manual) Target Cells Tear Drop Cells Ovalocytes [place] Cells PT INR APTT pCO2 pO2 HCO3 ABG pH ABG Total CO2 ABG O2 Saturation ABG O2 Content ABG Base Excess ABG Hemoglobin ABG Carboxyhemoglobin POC ABG HHb (Measured) ABG Methemoglobin ABG O2 Capacity Arnoldo Test ABG Potassium VBG pH VBG pCO2 VBG O2 Sat (Calc) VBG Potassium A-a O2 Difference Hgb O2 Saturation Sodium Chloride Glucose Lactate Vent Mode Mechanical Rate FiO2 Tidal Volume PEEP Blood Gas Comments Crit Value Called To Crit Value Called By Crit Value Read Back Blood Gas Notified Time Potassium Carbon Dioxide Anion Gap BUN Creatinine Est GFR ( Amer) Est GFR (Non-Af Amer) POC Glucose (mg/dL) 154 H 171 H 147 H Random Glucose Calcium Phosphorus Magnesium Total Bilirubin AST ALT Alkaline Phosphatase Total Creatine Kinase Troponin I NT-Pro-B Natriuret Pep Total Protein Albumin Globulin Albumin/Globulin Ratio Arterial Blood Potassium Venous Blood Potassium Urine Color Urine Clarity Urine pH Ur Specific [place] Urine Protein Urine Glucose (UA) Urine Ketones Urine Blood Urine Nitrate Urine Bilirubin Urine Urobilinogen Ur Leukocyte Esterase Urine RBC (Auto) Urine WBC Clumps (Auto) Urine Microscopic WBC Stool Occult Blood Random Vancomycin Hep Bs Antigen Hep Bs Antibody Hep B Core IgM Ab Hepatitis C Antibody Blood Type Antibody Screen BBK History Checked 0410/23/17 10/23/17 02:31 04:20 04:20 WBC 32.3 H RBC 3.14 L Hgb 8.4 L Hct 26.5 L MCV 84.3 MCH 26.8 L MCHC 31.8 L RDW 16.0 H Plt Count 285 MPV Neut % (Auto) Lymph % (Auto) [place] % (Auto) Eos % (Auto) Baso % (Auto) Neut # (Auto) Lymph # (Auto) [place] # (Auto) Eos # (Auto) Baso # (Auto) Neutrophils % (Manual) Band Neutrophils % Lymphocytes % (Manual) Reactive Lymphs % Monocytes % (Manual) Toxic Granulation Platelet Estimate Plt Clumps, EDTA Large Platelets Polychromasia Hypochromasia (manual) Poikilocytosis (manual Anisocytosis (manual) Microcytosis (manual) Target Cells Tear Drop Cells Ovalocytes [place] Cells PT INR APTT pCO2 pO2 HCO3 ABG pH ABG Total CO2 ABG O2 Saturation ABG O2 Content ABG Base Excess ABG Hemoglobin ABG Carboxyhemoglobin POC ABG HHb (Measured) ABG Methemoglobin ABG O2 Capacity Arnoldo Test ABG Potassium VBG pH VBG pCO2 VBG O2 Sat (Calc) VBG Potassium A-a O2 Difference Hgb O2 Saturation Sodium 140 Chloride 100 Glucose Lactate Vent Mode Mechanical Rate FiO2 Tidal Volume PEEP Blood Gas Comments Crit Value Called To Crit Value Called By Crit Value Read Back Blood Gas Notified Time Potassium 3.6 Carbon Dioxide 14 L Anion Gap 30 H BUN 62 H Creatinine 7.6 H* Est GFR ( Amer) 6 Est GFR (Non-Af Amer) 5 POC Glucose (mg/dL) 172 H Random Glucose 205 H Calcium 7.5 L Phosphorus Magnesium Total Bilirubin 0.4 AST 35 ALT 34 Alkaline Phosphatase 91 Total Creatine Kinase Troponin I NT-Pro-B Natriuret Pep Total Protein 5.1 L Albumin 2.5 L Globulin 2.6 Albumin/Globulin Ratio 1.0 Arterial Blood Potassium Venous Blood Potassium Urine Color Urine Clarity Urine pH Ur Specific [place] Urine Protein Urine Glucose (UA) Urine Ketones Urine Blood Urine Nitrate Urine Bilirubin Urine Urobilinogen Ur Leukocyte Esterase Urine RBC (Auto) Urine WBC Clumps (Auto) Urine Microscopic WBC Stool Occult Blood Random Vancomycin Hep Bs Antigen Hep Bs Antibody Hep B Core IgM Ab Hepatitis C Antibody Blood Type Antibody Screen BBK History Checked 0410/23/17 10/23/17 04:50 05:22 06:27 WBC RBC Hgb Hct MCV MCH MCHC RDW Plt Count MPV Neut % (Auto) Lymph % (Auto) [place] % (Auto) Eos % (Auto) Baso % (Auto) Neut # (Auto) Lymph # (Auto) [place] # (Auto) Eos # (Auto) Baso # (Auto) Neutrophils % (Manual) Band Neutrophils % Lymphocytes % (Manual) Reactive Lymphs % Monocytes % (Manual) Toxic Granulation Platelet Estimate Plt Clumps, EDTA Large Platelets Polychromasia Hypochromasia (manual) Poikilocytosis (manual Anisocytosis (manual) Microcytosis (manual) Target Cells Tear Drop Cells Ovalocytes [place] Cells PT INR APTT pCO2 27 L pO2 196 H HCO3 17.5 L ABG pH 7.35 ABG Total CO2 15.7 L ABG O2 Saturation 99.9 H ABG O2 Content 12.3 L ABG Base Excess -9.6 L ABG Hemoglobin 8.6 L ABG Carboxyhemoglobin 0.9 POC ABG HHb (Measured) 0.1 ABG Methemoglobin 1.0 ABG O2 Capacity 12.3 L Arnoldo Test Yes ABG Potassium VBG pH VBG pCO2 VBG O2 Sat (Calc) VBG Potassium A-a O2 Difference 55.0 Hgb O2 Saturation 98.1 H Sodium Chloride Glucose Lactate Vent Mode Prvc/ac Mechanical Rate 12 FiO2 40.0 Tidal Volume 450 PEEP 5 Blood Gas Comments Crit Value Called To Crit Value Called By Crit Value Read Back Blood Gas Notified Time Potassium Carbon Dioxide Anion Gap BUN Creatinine Est GFR ( Amer) Est GFR (Non-Af Amer) POC Glucose (mg/dL) 202 H 219 H Random Glucose Calcium Phosphorus Magnesium Total Bilirubin AST ALT Alkaline Phosphatase Total Creatine Kinase Troponin I NT-Pro-B Natriuret Pep Total Protein Albumin Globulin Albumin/Globulin Ratio Arterial Blood Potassium Venous Blood Potassium Urine Color Urine Clarity Urine pH Ur Specific [place] Urine Protein Urine Glucose (UA) Urine Ketones Urine Blood Urine Nitrate Urine Bilirubin Urine Urobilinogen Ur Leukocyte Esterase Urine RBC (Auto) Urine WBC Clumps (Auto) Urine Microscopic WBC Stool Occult Blood Random Vancomycin Hep Bs Antigen Hep Bs Antibody Hep B Core IgM Ab Hepatitis C Antibody Blood Type Antibody Screen BBK History Checked 10/23/17 10/23/17 10/23/17 08:36 10:31 11:40 WBC RBC Hgb Hct MCV MCH MCHC RDW Plt Count MPV Neut % (Auto) Lymph % (Auto) [place] % (Auto) Eos % (Auto) Baso % (Auto) Neut # (Auto) Lymph # (Auto) [place] # (Auto) Eos # (Auto) Baso # (Auto) Neutrophils % (Manual) Band Neutrophils % Lymphocytes % (Manual) Reactive Lymphs % Monocytes % (Manual) Toxic Granulation Platelet Estimate Plt Clumps, EDTA Large Platelets Polychromasia Hypochromasia (manual) Poikilocytosis (manual Anisocytosis (manual) Microcytosis (manual) Target Cells Tear Drop Cells Ovalocytes [place] Cells PT INR APTT pCO2 pO2 HCO3 ABG pH ABG Total CO2 ABG O2 Saturation ABG O2 Content ABG Base Excess ABG Hemoglobin ABG Carboxyhemoglobin POC ABG HHb (Measured) ABG Methemoglobin ABG O2 Capacity Arnoldo Test ABG Potassium VBG pH VBG pCO2 VBG O2 Sat (Calc) VBG Potassium A-a O2 Difference Hgb O2 Saturation Sodium Chloride Glucose Lactate Vent Mode Mechanical Rate FiO2 Tidal Volume PEEP Blood Gas Comments Crit Value Called To Crit Value Called By Crit Value Read Back Blood Gas Notified Time Potassium Carbon Dioxide Anion Gap BUN Creatinine Est GFR ( Amer) Est GFR (Non-Af Amer) POC Glucose (mg/dL) 220 H 188 H Random Glucose Calcium Phosphorus Magnesium Total Bilirubin AST ALT Alkaline Phosphatase Total Creatine Kinase Troponin I NT-Pro-B Natriuret Pep Total Protein Albumin Globulin Albumin/Globulin Ratio Arterial Blood Potassium Venous Blood Potassium Urine Color Red Urine Clarity Turbid Urine pH 6.0 Ur Specific [place] 1.011 Urine Protein >=500 Urine Glucose (UA) 50 Urine Ketones 20 Urine Blood Large Urine Nitrate Negative Urine Bilirubin Negative Urine Urobilinogen 0.2-1.0 Ur Leukocyte Esterase Large Urine RBC (Auto) 127 H Urine WBC Clumps (Auto) Many H Urine Microscopic WBC 5118 H Stool Occult Blood Random Vancomycin Hep Bs Antigen Hep Bs Antibody Hep B Core IgM Ab Hepatitis C Antibody Blood Type Antibody Screen BBK History Checked 10/23/17 13:01 WBC RBC Hgb Hct MCV MCH MCHC RDW Plt Count MPV Neut % (Auto) Lymph % (Auto) [place] % (Auto) Eos % (Auto) Baso % (Auto) Neut # (Auto) Lymph # (Auto) [place] # (Auto) Eos # (Auto) Baso # (Auto) Neutrophils % (Manual) Band Neutrophils % Lymphocytes % (Manual) Reactive Lymphs % Monocytes % (Manual) Toxic Granulation Platelet Estimate Plt Clumps, EDTA Large Platelets Polychromasia Hypochromasia (manual) Poikilocytosis (manual Anisocytosis (manual) Microcytosis (manual) Target Cells Tear Drop Cells Ovalocytes [place] Cells PT INR APTT pCO2 pO2 HCO3 ABG pH ABG Total CO2 ABG O2 Saturation ABG O2 Content ABG Base Excess ABG Hemoglobin ABG Carboxyhemoglobin POC ABG HHb (Measured) ABG Methemoglobin ABG O2 Capacity Arnoldo Test ABG Potassium VBG pH VBG pCO2 VBG O2 Sat (Calc) VBG Potassium A-a O2 Difference Hgb O2 Saturation Sodium Chloride Glucose Lactate Vent Mode Mechanical Rate FiO2 Tidal Volume PEEP Blood Gas Comments Crit Value Called To Crit Value Called By Crit Value Read Back Blood Gas Notified Time Potassium Carbon Dioxide Anion Gap BUN Creatinine Est GFR ( Amer) Est GFR (Non-Af Amer) POC Glucose (mg/dL) 161 H Random Glucose Calcium Phosphorus Magnesium Total Bilirubin AST ALT Alkaline Phosphatase Total Creatine Kinase Troponin I NT-Pro-B Natriuret Pep Total Protein Albumin Globulin Albumin/Globulin Ratio Arterial Blood Potassium Venous Blood Potassium Urine Color Urine Clarity Urine pH Ur Specific [place] Urine Protein Urine Glucose (UA) Urine Ketones Urine Blood Urine Nitrate Urine Bilirubin Urine Urobilinogen Ur Leukocyte Esterase Urine RBC (Auto) Urine WBC Clumps (Auto) Urine Microscopic WBC Stool Occult Blood Random Vancomycin Hep Bs Antigen Hep Bs Antibody Hep B Core IgM Ab Hepatitis C Antibody Blood Type Antibody Screen BBK History Checked Microbiology 10/20/17 20:00 Blood Blood Culture - Preliminary NO GROWTH AFTER 48 HOURS 10/20/17 19:46 Blood Blood Culture - Preliminary NO GROWTH AFTER 48 HOURS 10/21/17 14:48 Blood-Venous Blood Culture - Preliminary NO GROWTH AFTER 24 HOURS 10/21/17 15:40 Blood-Venous Blood Culture - Preliminary NO GROWTH AFTER 24 HOURS 10/20/17 10:30 Naris MRSA Culture (Admit) - Final MRSA NOT DETECTED Accession No. : [id number] Patient Name / ID : SUMMER DHILLON / [id number] Exam Date : 10/23/2017 04:22:37 ( Approved ) Study Comment : Sex / Age : F / [id number] Creator : Jose Antonio Mackenzie MD Dictator : Jose Antonio Mackenzie MD Test Operator : Blackjack Dealer : Jose Antonio Mackenzie MD Approver2 : Report Date : 10/23/2017 07:30:50 My Comment : HISTORY: intubated COMPARISON: Portable chest 10/22/2017 FINDINGS: Central venous catheter, endotracheal and nasogastric tubes do not appear significantly changed in position. LUNGS: No active pulmonary disease. PLEURA: Trace left pleural effusion appears to bone the left costophrenic sulcus. No right pleural effusion. No pneumothorax bilaterally CARDIOVASCULAR: Cardiac silhouette is stable in appearance. No pulmonary vascular derangement appreciable. OSSEOUS STRUCTURES: No significant abnormalities. VISUALIZED UPPER ABDOMEN: Normal. OTHER FINDINGS: None. IMPRESSION: Stable chest radiography with trace left pleural effusion evident. Tubes and catheters unchanged in position. Assessment and Plan (1) Acute on chronic renal failure Status: Acute (2) Metabolic acidosis Status: Acute (3) Septic shock Status: Acute (4) UTI (urinary tract infection) Status: Acute (5) Hyperkalemia Status: Resolved - Assessment and Plan (Free Text) Assessment: A/P- 77 year old female with multiple medical conditions and noncomplaint including CKD stage 4, DM II, b/l ureteral stents ( repaced 09/2017) admitted with change in hector BASS. fount o be hyperkalemic, metabolic acidosis, acute on chronic renal insufficiency leukocytosis. anuric as per ER doc unable to insert clay and pus was noted . remains intubated On pressors for BP support HD for metabolic acidosis and anurea as per renal doc blood cx- neg x [address] abd- colitis leukocytosis acute on chronic renal failure s/p emergent HD plan- advise to continue with IV meropenm day #3 (renal dose). continue with IV vancomyicn , to be given post HD and post HD days. No objection to continuing with the IV flagyl started by the ICU doctor for the colitis day #3 today. send stool for c.diff.. acidosis and hyperkalemia management as per ICU and renal doctor. needs to have the ureteral stent removed most likely. monitor temp and wbc closely. All labs and imaging results and chart notes reviewed. all above d/w pt's nurse and family practice team at length. ICU time 50 minutes.
[2017-10-23] MEDS ORDERED: Midazolam 5 MG/ML 50 MG in Dextrose 5% In Water 90 ML IV ONE (15:57)
[2017-10-23] MEDS ORDERED: Silver Sulfadiazine 1% CREAM (50 gm) TOP SCH (16:15)
[2017-10-23] MEDS: Insulin Regular 100 units/ml SC SCH ×2 (17:22→20:30)
[2017-10-23] MEDS: EPOETIN ALFA 10,000 UNIT/ML ML SC SCH (18:49)
--- NOTE | 2017-10-23 19:20 | CP.PCM.PN ---
Subjective - Date & Time of Evaluation Date of Evaluation: 10/23/17 Time of Evaluation: 12:45 - Subjective Subjective: Patient remains on 1 vaopressor; nursing staff able to place clay, pus in urine ; Objective - Vital Signs/Intake and Output Vital Signs (last 24 hours): Temp Pulse Resp BP Pulse Ox 97 F L 115 H 21 105/54 L 100 10/23/17 16:00 10/23/17 18:00 10/23/17 18:00 10/23/17 18:00 10/23/17 18:00 Intake and Output: 10/23/17 10/24/17 18:59 06:59 Intake Total 2254 Output Total 500 Balance 1754 - Medications Medications: Current Medications Aspirin (Ecotrin) 81 mg PO DAILY [facility] Last Admin: 10/21/17 08:49 Dose: 81 mg Atorvastatin Calcium (Lipitor) 40 mg PO QPM [facility] Last Admin: 10/21/17 17:21 Dose: Not Given Dextrose (Dextrose 50% Inj) 0 ml IV STAT PRN; Protocol PRN Reason: Hypoglycemia Protocol Dextrose (Glutose 15) 0 gm PO ONCE PRN; Protocol PRN Reason: Hypoglycemia Protocol Dextrose (Dextrose 50% Inj) 0 ml IV STAT PRN; Protocol PRN Reason: Hypoglycemia Protocol Dextrose (Glutose 15) 0 gm PO ONCE PRN; Protocol PRN Reason: Hypoglycemia Protocol Epoetin Axel (Procrit) 10,000 unit SC MWF [facility] Last Admin: 10/23/17 18:49 Dose: 10,000 unit Glucagon (Glucagen Diagnostic Kit) 0 mg IM STAT PRN; Protocol PRN Reason: Hypoglycemia Protocol Glucagon (Glucagen Diagnostic Kit) 0 mg IM STAT PRN; Protocol PRN Reason: Hypoglycemia Protocol Heparin Sodium (Porcine) (Heparin) 5,000 units SC Q8 [facility] PRN Reason: Protocol Last Admin: 10/23/17 10:07 Dose: Not Given Azithromycin 500 mg/ Sodium (Chloride) 250 mls @ 250 mls/hr IVPB DAILY [facility] PRN Reason: Protocol Last Admin: 10/23/17 10:13 Dose: 250 mls/hr Metronidazole (Flagyl 500mg/100ml Ns) 100 mls @ 100 mls/hr IVPB Q8 [facility] PRN Reason: Protocol Last Admin: 10/23/17 17:20 Dose: Not Given Meropenem 500 mg/ Sodium (Chloride) 100 mls @ 100 mls/hr IVPB Q8 [facility] PRN Reason: Protocol Last Admin: 10/23/17 17:23 Dose: Not Given Vancomycin HCl 1 gm/ Sodium (Chloride) 250 mls @ 125 mls/hr IVPB DAILY [facility] PRN Reason: Protocol Last Admin: 10/23/17 10:14 Dose: 125 mls/hr Sodium Bicarbonate 75 meq/ (Sodium Chloride) 1,075 mls @ 75 mls/hr IV .[id number] [facility] Stop: 10/24/17 06:40 Last Admin: 10/23/17 10:11 Dose: 75 mls/hr Norepinephrine Bitartrate 4 mg (/ Dextrose) 254 mls @ 20.95 mls/hr IV .Q12H8M [facility]; 5.5 MCG/MIN PRN Reason: Protocol Last Admin: 10/23/17 15:16 Dose: 10 mcg/min, 38.1 mls/hr Midazolam HCl 50 mg/ Sodium (Chloride) 100 mls @ 8 mls/hr IV .[id number] ONE; 4 MG /HR PRN Reason: Protocol Stop: 10/23/17 19:29 Last Titration: 10/23/17 14:31 Dose: 10 mg/hr, 20 mls/hr Norepinephrine Bitartrate 8 mg (/ Dextrose) 258 mls @ 19.35 mls/hr IV .[id number] [facility]; 10 MCG/MIN PRN Reason: Protocol Stop: 10/24/17 05:16 Midazolam HCl 50 mg/ Sodium (Chloride) 100 mls @ 20 mls/hr IV .Q5H ONE; 10 MG/ HR PRN Reason: Protocol Stop: 10/23/17 21:29 Last Admin: 10/23/17 18:14 Dose: 10 mg/hr, 20 mls/hr Insulin Human Regular (Humulin R) 0 units SC Q4 [facility] PRN Reason: Protocol Last Admin: 10/23/17 17:22 Dose: 1 unit Nystatin (Nystop Topical Powder) 1 applic TOP TID [facility] Pantoprazole Sodium (Protonix Inj) 40 mg IVP DAILY [facility] Last Admin: 10/23/17 10:11 Dose: 40 mg Silver Sulfadiazine (Silvadene 1% 20 Gm) 1 ea TOP DAILY [facility] - Labs Labs: 10/23/17 04:20 10/23/17 04:20 PT 12.3 Seconds (9.8-13.1) 10/20/17 19:46 INR 1.1 (0.9-1.2) 10/20/17 19:46 APTT 33.2 Seconds (25.6-37.1) D 10/21/17 04:18 - Constitutional Appears: No Acute Distress - Eye Exam Eye Exam: absent: Scleral icterus - ENT Exam ENT Exam: Mucous Membranes Moist - Respiratory Exam Respiratory Exam: Clear to Ausculation Bilateral. absent: Respiratory Distress - Cardiovascular Exam Cardiovascular Exam: RRR, +S1, +S2 - GI/Abdominal Exam GI & Abdominal Exam: Soft. absent: Distended, Tenderness - Exam Exam: absent: Bladder Distension - Extremities Exam Additional comments: minimal leg edema; - Neurological Exam Additional comments: sedated; - Psychiatric Exam Psychiatric exam: absent: Agitated - Skin Skin Exam: Warm. absent: Cyanosis Assessment and Plan (1) Acute renal failure Assessment & Plan: NINA on CKD IV; ATN in the setting of septic shock; showing signs of renal recovery with rate in rise of serum creatinine having slowed on morning labs; HD attempted today but had to be curtailed after ~1hr 40 min due to severe tachycardia; -will hold off on further HD for now -started on bicarb drip with 1/2NS w/ 75 meq sodium bicarb at 75 cc/hr -need urology assessment in light of possible infected ureteral stents Status: Acute (2) Metabolic acidosis Assessment & Plan: see above Status: Acute (3) Hyperkalemia Status: Resolved (4) Septic shock Assessment & Plan: On vanco, meropenem, zithromax and flagyl; no need to re-dose vanco again today since patient only got partial HD session; Status: Acute (5) Anemia Assessment & Plan: Patient being started on EPO 10,000 u qMWF, continue; Status: Acute
[2017-10-23] MEDS: Silver Sulfadiazine 1% Cream (20 gm) TOP SCH (20:00)
[2017-10-24] MEDS ORDERED: Midazolam 5 MG/ML 50 MG in Dextrose 5% In Water 90 ML IV ONE ×2 (00:02→14:45)
[2017-10-24] MEDS: metroNIDAZOLE 500mg/100ml NS 100 ML IVPB SCH ×3 (01:03→16:14)
[2017-10-24] MEDS: Meropenem 500 MG in Sodium Chloride 0.9% 100 ML IVPB SCH ×3 (01:05→16:16)
[2017-10-24] MEDS: Insulin Regular 100 units/ml SC SCH ×6 (01:06→20:50)
[2017-10-24 04:45] LABS: ABG ALLEN TEST YES; ARTERIAL BLOOD GAS HCO3 27.1 mmol/L (21-28); ARTERIAL BLOOD GAS O2 SAT 99.1 % (95-98); ARTERIAL BLOOD GAS PCO2 36 mm/Hg (35-45); ARTERIAL BLOOD GAS PH 7.47 (7.35-7.45); ARTERIAL BLOOD GAS PO2 195 mm/Hg (80-100); ARTERIAL BLOOD GAS TCO2 27.3 mmol/L (22-28)
[2017-10-24 05:27] LABS: EOS % 0.1 % (0.0-4.0); HEMOGLOBIN 9.2 g/dL (12.0-16.0); LYMPH # 1.3 K/uL (1.0-4.3); LYMPH % 5.8 % (20.0-40.0); MEAN CELL VOLUME 84.2 fl (81.0-99.0); MEAN CORPUSCULAR HEMOGLOBIN 26.8 pg (27.0-31.0); MEAN CORPUSCULAR HGB CONC 31.8 g/dL (33.0-37.0); MEAN PLATELET VOLUME 7.1 fl (7.2-11.7); MONO # 1.3 K/uL (0.0-0.8); MONO % 5.9 % (0.0-10.0); NEUT # 20.1 K/uL (1.8-7.0); NEUT % 88.2 % (50.0-75.0); RBC 3.43 Mil/uL (3.80-5.20); RED CELL DISTRIBUTION WIDTH 16.3 % (11.5-14.5); WHITE BLOOD COUNT 22.8 K/uL (4.8-10.8)
[2017-10-24 05:36] LABS: ALB/GLOB RATIO 0.9 (1.0-2.1); ALBUMIN 2.4 g/dL (3.5-5.0); CALCIUM 7.6 mg/dL (8.4-10.2)
--- NOTE | 2017-10-24 07:31 | CP.PCM.PN ---
<Katelyn Pirece - Last Filed: 10/24/17 09:52> Subjective - Date & Time of Evaluation Date of Evaluation: 10/24/17 Time of Evaluation: 07:31 - Subjective Subjective: ICU day 5 Pt seen and examined at bedside this morning. Sedation, Intubated, nonverbal. On vasopressors with Levophed, moving b/l lower ext. Responsive only to painful stimuli. Objective - Vital Signs/Intake and Output Vital Signs (last 24 hours): Temp Pulse Resp BP Pulse Ox 97.9 F 101 H 14 120/67 100 10/24/17 04:00 10/24/17 07:00 10/24/17 07:00 10/24/17 07:00 10/24/17 07:00 Intake and Output: 10/24/17 10/24/17 06:59 18:59 Intake Total 1704 Output Total 520 Balance 1184 - Medications Medications: Current Medications Aspirin (Ecotrin) 81 mg PO DAILY [facility] Last Admin: 10/21/17 08:49 Dose: 81 mg Atorvastatin Calcium (Lipitor) 40 mg PO QPM [facility] Last Admin: 10/21/17 17:21 Dose: Not Given Dextrose (Dextrose 50% Inj) 0 ml IV STAT PRN; Protocol PRN Reason: Hypoglycemia Protocol Dextrose (Glutose 15) 0 gm PO ONCE PRN; Protocol PRN Reason: Hypoglycemia Protocol Dextrose (Dextrose 50% Inj) 0 ml IV STAT PRN; Protocol PRN Reason: Hypoglycemia Protocol Dextrose (Glutose 15) 0 gm PO ONCE PRN; Protocol PRN Reason: Hypoglycemia Protocol Epoetin Axel (Procrit) 10,000 unit SC MWF [facility] Last Admin: 10/23/17 18:49 Dose: 10,000 unit Glucagon (Glucagen Diagnostic Kit) 0 mg IM STAT PRN; Protocol PRN Reason: Hypoglycemia Protocol Glucagon (Glucagen Diagnostic Kit) 0 mg IM STAT PRN; Protocol PRN Reason: Hypoglycemia Protocol Heparin Sodium (Porcine) (Heparin) 5,000 units SC Q8 [facility] PRN Reason: Protocol Last Admin: 10/23/17 10:07 Dose: Not Given Azithromycin 500 mg/ Sodium (Chloride) 250 mls @ 250 mls/hr IVPB DAILY [facility] PRN Reason: Protocol Last Admin: 10/23/17 10:13 Dose: 250 mls/hr Metronidazole (Flagyl 500mg/100ml Ns) 100 mls @ 100 mls/hr IVPB Q8 [facility] PRN Reason: Protocol Last Admin: 10/24/17 01:03 Dose: 100 mls/hr Meropenem 500 mg/ Sodium (Chloride) 100 mls @ 100 mls/hr IVPB Q8 [facility] PRN Reason: Protocol Last Admin: 10/24/17 01:05 Dose: 100 mls/hr Vancomycin HCl 1 gm/ Sodium (Chloride) 250 mls @ 125 mls/hr IVPB DAILY [facility] PRN Reason: Protocol Last Admin: 10/23/17 10:14 Dose: 125 mls/hr Norepinephrine Bitartrate 4 mg (/ Dextrose) 254 mls @ 20.95 mls/hr IV .Q12H8M [facility]; 5.5 MCG/MIN PRN Reason: Protocol Last Titration: 10/23/17 21:25 Dose: Infused Midazolam HCl 50 mg/ Dextrose 100 mls @ 8 mls/hr IV .[id number] [facility]; 4 MG/HR PRN Reason: Protocol Stop: 10/24/17 12:31 Last Admin: 10/24/17 02:55 Dose: 4 mg/hr, 8 mls/hr Insulin Human Regular (Humulin R) 0 units SC Q4 [facility] PRN Reason: Protocol Last Admin: 10/24/17 04:05 Dose: 3 unit Nystatin (Nystop Topical Powder) 1 applic TOP TID [facility] Last Admin: 10/23/17 22:42 Dose: 1 applic Pantoprazole Sodium (Protonix Inj) 40 mg IVP DAILY [facility] Last Admin: 10/23/17 10:11 Dose: 40 mg Silver Sulfadiazine (Silvadene 1% 20 Gm) 1 ea TOP DAILY [facility] Last Admin: 10/23/17 20:00 Dose: 1 each - Labs Labs: 10/24/17 04:30 10/24/17 04:30 PT 12.3 Seconds (9.8-13.1) 10/20/17 19:46 INR 1.1 (0.9-1.2) 10/20/17 19:46 APTT 33.2 Seconds (25.6-37.1) D 10/21/17 04:18 - Constitutional Appears: Other (Sedated, breathing on ventilator.) - Eye Exam Eye Exam: PERRL - Respiratory Exam Respiratory Exam: Clear to Ausculation Bilateral - Cardiovascular Exam Cardiovascular Exam: REGULAR RHYTHM, +S1, +S2. absent: Murmur - GI/Abdominal Exam GI & Abdominal Exam: Soft, Normal Bowel Sounds. absent: Distended Assessment and Plan - Assessment and Plan (Free Text) Assessment: 77yo F with PMHx uncontrolled IDDM2, HTN, CKD4, Hydronephrosis s/p bilateral stenting, chronic kidney disease (Dialysis) admitted with septic shock. Plan: c/w IV abx, ventilator. Prognosis guarded. Currently DNR 1- Septic shock, improved - mechanical ventilation: sedated with Versed drip - Blood culture: negative - f/u urine culture: pending - MRSA no detected. - [employer] on consult, Recs appreciated: - On 1 Vasopressor due to improvement on BP -ID on board: broad spectrum antibiotics: Vancomycin (Random trough: 25.4), Meropenem, Azithromycin, Metronidazole - f/u c.diff pending 2- Acute Kidney Injury on CKD, improving -BUN/Cr 44/4.9 -Nephro on board Dr. Garcia. Recs are appreciated: -HD on 10/23/2017 -will hold off on further HD for now -started on bicarb drip with 1/2NS w/ 75 meq sodium bicarb at 75 cc/hr -need urology assessment in light of possible infected ureteral stents - K 3.4 3- HAGMA: high anion gap metabolic acidosis -sodium bicarbonate -s/p HD 4- Anemia -H/H: 9.2/28.9 -T&S 5- H/O Hydronephrosis s/p bilateral stenting -Urology on board Dr. Valentine. Recommendations appreciated -Adams placement, pus noted in urine 6- Diverticulitis -c/w flagyl -General surgery on board 7- Hypertension -Hold home BP meds for now 2/2 septic shock 8- Diabetes Mellitus type 2 -hold home PO meds; may consider SQ -accucheck -insulin coverage by protocol -hypoglycemic protocol 9- DVT prophylaxis -Heparin SC 10- Code Status: DNR: Documentation reviewed: Status was discussed with family via Dr. Garcia and made aware by Dr. Mendes. Palliative care consulted. <Min Woody - Last Filed: 10/26/17 06:55> Objective - Vital Signs/Intake and Output Vital Signs (last 24 hours): Temp Pulse Resp BP Pulse Ox 99.8 F H 95 H 20 118/63 100 10/26/17 04:00 10/26/17 06:54 10/26/17 06:54 10/26/17 06:54 10/26/17 06:54 Intake and Output: 10/25/17 10/26/17 18:59 06:59 Intake Total 1492 1060 Output Total 525 1400 Balance 967 -340 - Medications Medications: Current Medications Aspirin (Ecotrin) 81 mg PO DAILY [facility] Last Admin: 10/21/17 08:49 Dose: 81 mg Atorvastatin Calcium (Lipitor) 40 mg PO QPM [facility] Last Admin: 10/21/17 17:21 Dose: Not Given Dextrose (Dextrose 50% Inj) 0 ml IV STAT PRN; Protocol PRN Reason: Hypoglycemia Protocol Dextrose (Glutose 15) 0 gm PO ONCE PRN; Protocol PRN Reason: Hypoglycemia Protocol Dextrose (Dextrose 50% Inj) 0 ml IV STAT PRN; Protocol PRN Reason: Hypoglycemia Protocol Dextrose (Glutose 15) 0 gm PO ONCE PRN; Protocol PRN Reason: Hypoglycemia Protocol Epoetin Axel (Procrit) 10,000 unit SC MWF [facility] Last Admin: 10/25/17 12:22 Dose: 10,000 unit Glucagon (Glucagen Diagnostic Kit) 0 mg IM STAT PRN; Protocol PRN Reason: Hypoglycemia Protocol Glucagon (Glucagen Diagnostic Kit) 0 mg IM STAT PRN; Protocol PRN Reason: Hypoglycemia Protocol Heparin Sodium (Porcine) (Heparin) 5,000 units SC Q8 [facility] PRN Reason: Protocol Last Admin: 10/26/17 00:14 Dose: 5,000 units Azithromycin 500 mg/ Sodium (Chloride) 250 mls @ 250 mls/hr IVPB DAILY [facility] PRN Reason: Protocol Last Admin: 10/25/17 08:47 Dose: 250 mls/hr Metronidazole (Flagyl 500mg/100ml Ns) 100 mls @ 100 mls/hr IVPB Q8 [facility] PRN Reason: Protocol Last Admin: 10/26/17 00:40 Dose: 100 mls/hr Meropenem 500 mg/ Sodium (Chloride) 100 mls @ 100 mls/hr IVPB Q8 [facility] PRN Reason: Protocol Last Admin: 10/26/17 00:08 Dose: 100 mls/hr Insulin Human Regular (Humulin R) 0 units SC Q4 [facility] PRN Reason: Protocol Last Admin: 10/26/17 05:09 Dose: 2 unit Nystatin (Nystop Topical Powder) 1 applic TOP TID [facility] Last Admin: 10/25/17 16:08 Dose: 1 applic Pantoprazole Sodium (Protonix Inj) 40 mg IVP DAILY [facility] Last Admin: 10/25/17 08:45 Dose: 40 mg Silver Sulfadiazine (Silvadene 1% 20 Gm) 1 ea TOP DAILY [facility] Last Admin: 10/25/17 08:45 Dose: 1 each Vancomycin HCl (Vancocin (Oral/Rectal Use)) 250 mg NG Q8 [facility] PRN Reason: Protocol Last Admin: 10/26/17 00:15 Dose: 250 mg - Labs Labs: 10/26/17 04:30 10/26/17 04:30 PT 12.3 Seconds (9.8-13.1) 10/20/17 19:46 INR 1.1 (0.9-1.2) 10/20/17 19:46 APTT 33.2 Seconds (25.6-37.1) D 10/21/17 04:18 Attending/Attestation - Attestation I have personally seen and examined this patient.: Yes I have fully participated in the care of the patient.: Yes I have reviewed all pertinent clinical information, including history, physical exam and plan: Yes
--- NOTE | 2017-10-24 07:32 | CP.CCUPN ---
CCU Subjective - Physician Review Subjective (Free Text): 10/23/17 16:23 The patient was Seen/interviewed and examined by me at the bedside during ICU round, Medical records reviewed and Management issues were discussed and formulated with the house staff. Events reviewed Critically sick, orally intubated and mechanically ventilated. On versed drip, undergoing sedation vacation PRVC AC12 TV450 FiO2 40% PEEP5. Resp nonlabored, few spontaneous resp noted. Not tolerating CPAP trial, On Vasopressors, with Levophed (Off Hubert) BP 100-120/50-60 Intermittent episodes of SVT Last 24H I&O 2958/1020 , Pt incontinent Scheduled for HD today Afebrile, NSR on the monitor Blood cx- neg Adams placed today, urology consult called CCU Objective - Vital Signs / Intake & Output Vital Signs (Last 4 hours): Vital Signs Temp Pulse Resp BP Pulse Ox 10/24/17 07:00 101 H 14 120/67 100 10/24/17 06:00 107 H 21 135/69 100 10/24/17 05:00 90 21 137/64 100 10/24/17 04:00 97.9 F 105 H 19 110/75 100 Intake and Output (Last 8hrs): Intake & Output 10/23/17 10/24/17 10/24/17 22:59 06:59 14:59 Intake Total 2803 1155 Output Total 620 400 Balance 2183 755 Intake: IV 2243 715 Intake, Piggyback 450 Tube Feeding 110 440 Output: Gastric Amount 20 Stomach 20 Urine 600 400 Urethral (Adams) 600 400 Ultrafiltrate 0 Other: # Bowel Movements 1 1 - Physical Exam Head: Positive for: Atraumatic, Normocephalic. Negative for: Tenderness, Contusion Pupils: Positive for: PERRL. Negative for: Sluggish, Non-Reactive, Pinpoint Extroacular Muscles: Positive for: EOMI. Negative for: Gaze Palsy, Entrapment Conjunctiva: Positive for: Normal. Negative for: Injected, Icteric Ears: Positive for: Normal Mouth: Positive for: Moist Mucous Membranes Pharnyx: Positive for: Normal Nose (Internal): Positive for: Normal Inspection, No Active Bleeding Neck: Positive for: Normal Range of Motion, Trachea Midline. Negative for: Meningeal Signs, MIDLINE TENDERNESS, Paraspinal Tenderness, JVD, Lymphadenopathy , Bruit, Other Respiratory/Chest: Positive for: Decreased Breath Sounds, Rales, Rhonchi. Negative for: Respiratory Distress, Accessory Muscle Use, Wheezes, Tachypneic Cardiovascular: Positive for: Regular Rate and Rhythm, Normal S1, S2, Peripheal Pulses Present. Negative for: Murmurs, Irregular Rhythm, Tachycardic, Bradycardic Abdomen: Positive for: Distention, Normal Bowel Sounds. Negative for: Tenderness Psychiatric: Positive for: Other (Patient sedated and orally intubated) - Medications Active Medications: Active Medications Generic Name Dose Route Start Last Admin Trade Name Freq PRN Reason Stop Dose Admin Aspirin 81 mg 10/21/17 09:00 10/21/17 08:49 Ecotrin PO 81 mg DAILY [place] Administration Atorvastatin Calcium 40 mg 10/21/17 18:00 10/21/17 17:21 Lipitor PO Not Given QPM [place] Dextrose 0 ml 10/21/17 00:29 Dextrose 50% Inj IV STAT PRN Hypoglycemia Protocol Protocol Dextrose 0 gm 10/21/17 00:29 Glutose 15 PO ONCE PRN Hypoglycemia Protocol Protocol Dextrose 0 ml 10/21/17 11:45 Dextrose 50% Inj IV STAT PRN Hypoglycemia Protocol Protocol Dextrose 0 gm 10/21/17 11:45 Glutose 15 PO ONCE PRN Hypoglycemia Protocol Protocol Epoetin Axel 10,000 unit 10/23/17 09:00 10/23/17 18:49 Procrit SC 10,000 unit MWF [place] Administration Glucagon 0 mg 10/21/17 00:29 Glucagen Diagnostic Kit IM STAT PRN Hypoglycemia Protocol Protocol Glucagon 0 mg 10/21/17 11:45 Glucagen Diagnostic Kit IM STAT PRN Hypoglycemia Protocol Protocol Heparin Sodium (Porcine) 5,000 units 10/21/17 09:00 10/23/17 10:07 Heparin SC Not Given Q8 [place] Protocol Azithromycin 500 mg/ Sodium 250 mls @ 250 mls/hr 10/21/17 09:00 10/23/17 10: 13 Chloride IVPB 250 mls/hr DAILY [place] Administration Protocol Metronidazole 100 mls @ 100 mls/hr 10/21/17 09:00 10/24/17 01:03 Flagyl 500mg/100ml Ns IVPB 100 mls/hr Q8 [place] Administration Protocol Meropenem 500 mg/ Sodium 100 mls @ 100 mls/hr 10/21/17 10:19 10/24/17 01:05 Chloride IVPB 100 mls/hr Q8 [place] Administration Protocol Vancomycin HCl 1 gm/ Sodium 250 mls @ 125 mls/hr 10/22/17 09:15 10/23/17 10: 14 Chloride IVPB 125 mls/hr DAILY [place] Administration Protocol Norepinephrine Bitartrate 4 mg 254 mls @ 20.95 mls/hr 10/23/17 06:45 21:25 / Dextrose IV Infused .[id number] [place] Titration Protocol 5.5 MCG/MIN Midazolam HCl 50 mg/ Dextrose 100 mls @ 8 mls/hr 10/24/17 00:02 10/24/17 02: 55 IV 10/24/17 12:31 4 mg/hr .[id number] ONE 8 mls/hr Protocol Administration 4 MG/HR Insulin Human Regular 0 units 10/23/17 17:00 10/24/17 04:05 Humulin R SC 3 unit Q4 [place] Administration Protocol Nystatin 1 applic 10/23/17 17:00 10/23/17 22:42 Nystop Topical Powder TOP 1 applic TID [place] Administration Pantoprazole Sodium 40 mg 10/22/17 09:00 10/23/17 10:11 Protonix Inj IVP 40 mg DAILY [place] Administration Silver Sulfadiazine 1 ea 10/23/17 18:30 10/23/17 20:00 Silvadene 1% 20 Gm TOP 1 each DAILY [place] Administration - Patient Studies Lab Studies: Microbiology Studies 10/20/17 20:00 Blood Culture - Preliminary Blood NO GROWTH AFTER 3 DAYS 10/20/17 19:46 Blood Culture - Preliminary Blood NO GROWTH AFTER 3 DAYS 10/21/17 14:48 Blood Culture - Preliminary Blood-Venous NO GROWTH AFTER 48 HOURS 10/21/17 15:40 Blood Culture - Preliminary Blood-Venous NO GROWTH AFTER 48 HOURS Lab Studies 10/24/17 10/24/17 10/24/17 Range/Units 04:35 04:30 04:30 WBC 22.8 H (4.8-10.8) K/uL RBC 3.43 L (3.80-5.20) Mil/uL Hgb 9.2 L (12.0-16.0) g/dL Hct 28.9 L (34.0-47.0) % MCV 84.2 (81.0-99.0) fl MCH 26.8 L (27.0-31.0) pg MCHC 31.8 L (33.0-37.0) g/dL RDW 16.3 H (11.5-14.5) % Plt Count 249 (130-400) K/uL MPV 7.1 L (7.2-11.7) fl Neut % (Auto) 88.2 H (50.0-75.0) % Lymph % (Auto) 5.8 L (20.0-40.0) % [place] % (Auto) 5.9 (0.0-10.0) % Eos % (Auto) 0.1 (0.0-4.0) % Baso % (Auto) 0.0 (0.0-2.0) % Neut # (Auto) 20.1 H (1.8-7.0) K/uL Lymph # (Auto) 1.3 (1.0-4.3) K/uL [place] # (Auto) 1.3 H (0.0-0.8) K/uL Eos # (Auto) 0.0 (0.0-0.7) K/uL Baso # (Auto) 0.0 (0.0-0.2) K/uL pCO2 36 (35-45) mm/Hg pO2 195 H (80-100) mm/Hg HCO3 27.1 (21-28) mmol/L ABG pH 7.47 H (7.35-7.45) ABG Total CO2 27.3 (22-28) mmol/L ABG O2 Saturation 99.1 H (95-98) % ABG Base Excess 2.7 (-2.0-3.0) mmol/L Arnoldo Test Yes ABG Potassium 3.2 L (3.6-5.2) mmol/L A-a O2 Difference 45.0 mm/Hg Glucose 267 H (65-105) mg/dL Lactate 2.0 (0.7-2.1) mmol/L Vent Mode A/c Mechanical Rate 12 FiO2 40.0 % Tidal Volume 450 PEEP 5 Sodium 134.0 140 (132-148) mmol/l Potassium 3.4 L (3.6-5.0) MMOL/L Chloride 103.0 97 L (98-107) mmol/L Carbon Dioxide 25 (22-30) mmol/L Anion Gap 21 H (10-20) BUN 44 H (7-17) mg/dl Creatinine 4.9 H (0.7-1.2) mg/dl Est GFR ( Amer) 10 Est GFR (Non-Af Amer) 9 POC Glucose (mg/dL) (65-110) mg/dL Random Glucose 234 H (65-105) mg/dL Calcium 7.6 L (8.4-10.2) mg/dL Total Bilirubin 0.3 (0.2-1.3) mg/dl AST 31 (14-36) U/L ALT 36 (9-52) U/L Alkaline Phosphatase 107 (38-126) U/L Total Protein 5.0 L (6.3-8.2) G/DL Albumin 2.4 L (3.5-5.0) g/dL Globulin 2.6 (2.2-3.9) gm/dL Albumin/Globulin Ratio 0.9 L (1.0-2.1) Arterial Blood Potassium 3.2 L (3.6-5.2) mmol/L Urine Color (YELLOW) Urine Clarity (Clear) Urine pH (5.0-8.0) Ur Specific Bowman (1.003-1.030) Urine Protein (NEGATIVE) mg/dL Urine Glucose (UA) (Normal) mg/dL Urine Ketones (NEGATIVE) mg/dL Urine Blood (NEGATIVE) Urine Nitrate (NEGATIVE) Urine Bilirubin (NEGATIVE) Urine Urobilinogen (0.2-1.0) mg/dL Ur Leukocyte Esterase (Negative) Emilio/uL Urine RBC (Auto) (0-3) /hpf Urine WBC Clumps (Auto) (NONE) /hpf Urine Microscopic WBC (0-5) /hpf Stool Occult Blood (NEGATIVE) Vancomycin Trough (5.0-10.0) ug/mL 10/24/17 10/24/17 10/23/17 Range/Units 04:30 03:53 23:58 WBC (4.8-10.8) K/uL RBC (3.80-5.20) Mil/uL Hgb (12.0-16.0) g/dL Hct (34.0-47.0) % MCV (81.0-99.0) fl MCH (27.0-31.0) pg MCHC (33.0-37.0) g/dL RDW (11.5-14.5) % Plt Count (130-400) K/uL MPV (7.2-11.7) fl Neut % (Auto) (50.0-75.0) % Lymph % (Auto) (20.0-40.0) % [place] % (Auto) (0.0-10.0) % Eos % (Auto) (0.0-4.0) % Baso % (Auto) (0.0-2.0) % Neut # (Auto) (1.8-7.0) K/uL Lymph # (Auto) (1.0-4.3) K/uL [place] # (Auto) (0.0-0.8) K/uL Eos # (Auto) (0.0-0.7) K/uL Baso # (Auto) (0.0-0.2) K/uL pCO2 (35-45) mm/Hg pO2 (80-100) mm/Hg HCO3 (21-28) mmol/L ABG pH (7.35-7.45) ABG Total CO2 (22-28) mmol/L ABG O2 Saturation (95-98) % ABG Base Excess (-2.0-3.0) mmol/L Arnoldo Test ABG Potassium (3.6-5.2) mmol/L A-a O2 Difference mm/Hg Glucose (65-105) mg/dL Lactate (0.7-2.1) mmol/L Vent Mode Mechanical Rate FiO2 % Tidal Volume PEEP Sodium (132-148) mmol/l Potassium (3.6-5.0) MMOL/L Chloride (98-107) mmol/L Carbon Dioxide (22-30) mmol/L Anion Gap (10-20) BUN (7-17) mg/dl Creatinine (0.7-1.2) mg/dl Est GFR ( Amer) Est GFR (Non-Af Amer) POC Glucose (mg/dL) 257 H 265 H (65-110) mg/dL Random Glucose (65-105) mg/dL Calcium (8.4-10.2) mg/dL Total Bilirubin (0.2-1.3) mg/dl AST (14-36) U/L ALT (9-52) U/L Alkaline Phosphatase (38-126) U/L Total Protein (6.3-8.2) G/DL Albumin (3.5-5.0) g/dL Globulin (2.2-3.9) gm/dL Albumin/Globulin Ratio (1.0-2.1) Arterial Blood Potassium (3.6-5.2) mmol/L Urine Color (YELLOW) Urine Clarity (Clear) Urine pH (5.0-8.0) Ur Specific Bowman (1.003-1.030) Urine Protein (NEGATIVE) mg/dL Urine Glucose (UA) (Normal) mg/dL Urine Ketones (NEGATIVE) mg/dL Urine Blood (NEGATIVE) Urine Nitrate (NEGATIVE) Urine Bilirubin (NEGATIVE) Urine Urobilinogen (0.2-1.0) mg/dL Ur Leukocyte Esterase (Negative) Emilio/uL Urine RBC (Auto) (0-3) /hpf Urine WBC Clumps (Auto) (NONE) /hpf Urine Microscopic WBC (0-5) /hpf Stool Occult Blood (NEGATIVE) Vancomycin Trough 25.4 H (5.0-10.0) ug/mL 10/23/17 10/23/17 10/23/17 Range/Units 20:41 15:54 13:01 WBC (4.8-10.8) K/uL RBC (3.80-5.20) Mil/uL Hgb (12.0-16.0) g/dL Hct (34.0-47.0) % MCV (81.0-99.0) fl MCH (27.0-31.0) pg MCHC (33.0-37.0) g/dL RDW (11.5-14.5) % Plt Count (130-400) K/uL MPV (7.2-11.7) fl Neut % (Auto) (50.0-75.0) % Lymph % (Auto) (20.0-40.0) % [place] % (Auto) (0.0-10.0) % Eos % (Auto) (0.0-4.0) % Baso % (Auto) (0.0-2.0) % Neut # (Auto) (1.8-7.0) K/uL Lymph # (Auto) (1.0-4.3) K/uL [place] # (Auto) (0.0-0.8) K/uL Eos # (Auto) (0.0-0.7) K/uL Baso # (Auto) (0.0-0.2) K/uL pCO2 (35-45) mm/Hg pO2 (80-100) mm/Hg HCO3 (21-28) mmol/L ABG pH (7.35-7.45) ABG Total CO2 (22-28) mmol/L ABG O2 Saturation (95-98) % ABG Base Excess (-2.0-3.0) mmol/L Arnoldo Test ABG Potassium (3.6-5.2) mmol/L A-a O2 Difference mm/Hg Glucose (65-105) mg/dL Lactate (0.7-2.1) mmol/L Vent Mode Mechanical Rate FiO2 % Tidal Volume PEEP Sodium (132-148) mmol/l Potassium (3.6-5.0) MMOL/L Chloride (98-107) mmol/L Carbon Dioxide (22-30) mmol/L Anion Gap (10-20) BUN (7-17) mg/dl Creatinine (0.7-1.2) mg/dl Est GFR ( Amer) Est GFR (Non-Af Amer) POC Glucose (mg/dL) 190 H 195 H 161 H (65-110) mg/dL Random Glucose (65-105) mg/dL Calcium (8.4-10.2) mg/dL Total Bilirubin (0.2-1.3) mg/dl AST (14-36) U/L ALT (9-52) U/L Alkaline Phosphatase (38-126) U/L Total Protein (6.3-8.2) G/DL Albumin (3.5-5.0) g/dL Globulin (2.2-3.9) gm/dL Albumin/Globulin Ratio (1.0-2.1) Arterial Blood Potassium (3.6-5.2) mmol/L Urine Color (YELLOW) Urine Clarity (Clear) Urine pH (5.0-8.0) Ur Specific Bowman (1.003-1.030) Urine Protein (NEGATIVE) mg/dL Urine Glucose (UA) (Normal) mg/dL Urine Ketones (NEGATIVE) mg/dL Urine Blood (NEGATIVE) Urine Nitrate (NEGATIVE) Urine Bilirubin (NEGATIVE) Urine Urobilinogen (0.2-1.0) mg/dL Ur Leukocyte Esterase (Negative) Emilio/uL Urine RBC (Auto) (0-3) /hpf Urine WBC Clumps (Auto) (NONE) /hpf Urine Microscopic WBC (0-5) /hpf Stool Occult Blood (NEGATIVE) Vancomycin Trough (5.0-10.0) ug/mL 10/23/17 10/23/17 10/23/17 Range/Units 11:40 10:31 08:36 WBC (4.8-10.8) K/uL RBC (3.80-5.20) Mil/uL Hgb (12.0-16.0) g/dL Hct (34.0-47.0) % MCV (81.0-99.0) fl MCH (27.0-31.0) pg MCHC (33.0-37.0) g/dL RDW (11.5-14.5) % Plt Count (130-400) K/uL MPV (7.2-11.7) fl Neut % (Auto) (50.0-75.0) % Lymph % (Auto) (20.0-40.0) % [place] % (Auto) (0.0-10.0) % Eos % (Auto) (0.0-4.0) % Baso % (Auto) (0.0-2.0) % Neut # (Auto) (1.8-7.0) K/uL Lymph # (Auto) (1.0-4.3) K/uL [place] # (Auto) (0.0-0.8) K/uL Eos # (Auto) (0.0-0.7) K/uL Baso # (Auto) (0.0-0.2) K/uL pCO2 (35-45) mm/Hg pO2 (80-100) mm/Hg HCO3 (21-28) mmol/L ABG pH (7.35-7.45) ABG Total CO2 (22-28) mmol/L ABG O2 Saturation (95-98) % ABG Base Excess (-2.0-3.0) mmol/L Arnoldo Test ABG Potassium (3.6-5.2) mmol/L A-a O2 Difference mm/Hg Glucose (65-105) mg/dL Lactate (0.7-2.1) mmol/L Vent Mode Mechanical Rate FiO2 % Tidal Volume PEEP Sodium (132-148) mmol/l Potassium (3.6-5.0) MMOL/L Chloride (98-107) mmol/L Carbon Dioxide (22-30) mmol/L Anion Gap (10-20) BUN (7-17) mg/dl Creatinine (0.7-1.2) mg/dl Est GFR ( Amer) Est GFR (Non-Af Amer) POC Glucose (mg/dL) 188 H 220 H (65-110) mg/dL Random Glucose (65-105) mg/dL Calcium (8.4-10.2) mg/dL Total Bilirubin (0.2-1.3) mg/dl AST (14-36) U/L ALT (9-52) U/L Alkaline Phosphatase (38-126) U/L Total Protein (6.3-8.2) G/DL Albumin (3.5-5.0) g/dL Globulin (2.2-3.9) gm/dL Albumin/Globulin Ratio (1.0-2.1) Arterial Blood Potassium (3.6-5.2) mmol/L Urine Color Red (YELLOW) Urine Clarity Turbid (Clear) Urine pH 6.0 (5.0-8.0) Ur Specific Bowman 1.011 (1.003-1.030) Urine Protein >=500 (NEGATIVE) mg/dL Urine Glucose (UA) 50 (Normal) mg/dL Urine Ketones 20 (NEGATIVE) mg/dL Urine Blood Large (NEGATIVE) Urine Nitrate Negative (NEGATIVE) Urine Bilirubin Negative (NEGATIVE) Urine Urobilinogen 0.2-1.0 (0.2-1.0) mg/dL Ur Leukocyte Esterase Large (Negative) Emilio/uL Urine RBC (Auto) 127 H (0-3) /hpf Urine WBC Clumps (Auto) Many H (NONE) /hpf Urine Microscopic WBC 5118 H (0-5) /hpf Stool Occult Blood (NEGATIVE) Vancomycin Trough (5.0-10.0) ug/mL 10/22/17 Range/Units 20:15 WBC (4.8-10.8) K/uL RBC (3.80-5.20) Mil/uL Hgb (12.0-16.0) g/dL Hct (34.0-47.0) % MCV (81.0-99.0) fl MCH (27.0-31.0) pg MCHC (33.0-37.0) g/dL RDW (11.5-14.5) % Plt Count (130-400) K/uL MPV (7.2-11.7) fl Neut % (Auto) (50.0-75.0) % Lymph % (Auto) (20.0-40.0) % [place] % (Auto) (0.0-10.0) % Eos % (Auto) (0.0-4.0) % Baso % (Auto) (0.0-2.0) % Neut # (Auto) (1.8-7.0) K/uL Lymph # (Auto) (1.0-4.3) K/uL [place] # (Auto) (0.0-0.8) K/uL Eos # (Auto) (0.0-0.7) K/uL Baso # (Auto) (0.0-0.2) K/uL pCO2 (35-45) mm/Hg pO2 (80-100) mm/Hg HCO3 (21-28) mmol/L ABG pH (7.35-7.45) ABG Total CO2 (22-28) mmol/L ABG O2 Saturation (95-98) % ABG Base Excess (-2.0-3.0) mmol/L Arnoldo Test ABG Potassium (3.6-5.2) mmol/L A-a O2 Difference mm/Hg Glucose (65-105) mg/dL Lactate (0.7-2.1) mmol/L Vent Mode Mechanical Rate FiO2 % Tidal Volume PEEP Sodium (132-148) mmol/l Potassium (3.6-5.0) MMOL/L Chloride (98-107) mmol/L Carbon Dioxide (22-30) mmol/L Anion Gap (10-20) BUN (7-17) mg/dl Creatinine (0.7-1.2) mg/dl Est GFR ( Amer) Est GFR (Non-Af Amer) POC Glucose (mg/dL) (65-110) mg/dL Random Glucose (65-105) mg/dL Calcium (8.4-10.2) mg/dL Total Bilirubin (0.2-1.3) mg/dl AST (14-36) U/L ALT (9-52) U/L Alkaline Phosphatase (38-126) U/L Total Protein (6.3-8.2) G/DL Albumin (3.5-5.0) g/dL Globulin (2.2-3.9) gm/dL Albumin/Globulin Ratio (1.0-2.1) Arterial Blood Potassium (3.6-5.2) mmol/L Urine Color (YELLOW) Urine Clarity (Clear) Urine pH (5.0-8.0) Ur Specific Bowman (1.003-1.030) Urine Protein (NEGATIVE) mg/dL Urine Glucose (UA) (Normal) mg/dL Urine Ketones (NEGATIVE) mg/dL Urine Blood (NEGATIVE) Urine Nitrate (NEGATIVE) Urine Bilirubin (NEGATIVE) Urine Urobilinogen (0.2-1.0) mg/dL Ur Leukocyte Esterase (Negative) Emilio/uL Urine RBC (Auto) (0-3) /hpf Urine WBC Clumps (Auto) (NONE) /hpf Urine Microscopic WBC (0-5) /hpf Stool Occult Blood Positive H (NEGATIVE) Vancomycin Trough (5.0-10.0) ug/mL Laboratory Results - last 24 hr 10/22/17 10/23/17 10/23/17 20:15 08:36 10:31 WBC RBC Hgb Hct MCV MCH MCHC RDW Plt Count MPV Neut % (Auto) Lymph % (Auto) [place] % (Auto) Eos % (Auto) Baso % (Auto) Neut # (Auto) Lymph # (Auto) [place] # (Auto) Eos # (Auto) Baso # (Auto) pCO2 pO2 HCO3 ABG pH ABG Total CO2 ABG O2 Saturation ABG Base Excess Arnoldo Test ABG Potassium A-a O2 Difference Glucose Lactate Vent Mode Mechanical Rate FiO2 Tidal Volume PEEP Sodium Potassium Chloride Carbon Dioxide Anion Gap BUN Creatinine Est GFR ( Amer) Est GFR (Non-Af Amer) POC Glucose (mg/dL) 220 H 188 H Random Glucose Calcium Total Bilirubin AST ALT Alkaline Phosphatase Total Protein Albumin Globulin Albumin/Globulin Ratio Arterial Blood Potassium Urine Color Urine Clarity Urine pH Ur Specific Bowman Urine Protein Urine Glucose (UA) Urine Ketones Urine Blood Urine Nitrate Urine Bilirubin Urine Urobilinogen Ur Leukocyte Esterase Urine RBC (Auto) Urine WBC Clumps (Auto) Urine Microscopic WBC Stool Occult Blood Positive H Vancomycin Trough 10/23/17 10/23/17 10/23/17 11:40 13:01 15:54 WBC RBC Hgb Hct MCV MCH MCHC RDW Plt Count MPV Neut % (Auto) Lymph % (Auto) [place] % (Auto) Eos % (Auto) Baso % (Auto) Neut # (Auto) Lymph # (Auto) [place] # (Auto) Eos # (Auto) Baso # (Auto) pCO2 pO2 HCO3 ABG pH ABG Total CO2 ABG O2 Saturation ABG Base Excess Arnoldo Test ABG Potassium A-a O2 Difference Glucose Lactate Vent Mode Mechanical Rate FiO2 Tidal Volume PEEP Sodium Potassium Chloride Carbon Dioxide Anion Gap BUN Creatinine Est GFR ( Amer) Est GFR (Non-Af Amer) POC Glucose (mg/dL) 161 H 195 H Random Glucose Calcium Total Bilirubin AST ALT Alkaline Phosphatase Total Protein Albumin Globulin Albumin/Globulin Ratio Arterial Blood Potassium Urine Color Red Urine Clarity Turbid Urine pH 6.0 Ur Specific Bowman 1.011 Urine Protein >=500 Urine Glucose (UA) 50 Urine Ketones 20 Urine Blood Large Urine Nitrate Negative Urine Bilirubin Negative Urine Urobilinogen 0.2-1.0 Ur Leukocyte Esterase Large Urine RBC (Auto) 127 H Urine WBC Clumps (Auto) Many H Urine Microscopic WBC 5118 H Stool Occult Blood Vancomycin Trough 10/23/17 10/23/17 10/24/17 20:41 23:58 03:53 WBC RBC Hgb Hct MCV MCH MCHC RDW Plt Count MPV Neut % (Auto) Lymph % (Auto) [place] % (Auto) Eos % (Auto) Baso % (Auto) Neut # (Auto) Lymph # (Auto) [place] # (Auto) Eos # (Auto) Baso # (Auto) pCO2 pO2 HCO3 ABG pH ABG Total CO2 ABG O2 Saturation ABG Base Excess Arnoldo Test ABG Potassium A-a O2 Difference Glucose Lactate Vent Mode Mechanical Rate FiO2 Tidal Volume PEEP Sodium Potassium Chloride Carbon Dioxide Anion Gap BUN Creatinine Est GFR ( Amer) Est GFR (Non-Af Amer) POC Glucose (mg/dL) 190 H 265 H 257 H Random Glucose Calcium Total Bilirubin AST ALT Alkaline Phosphatase Total Protein Albumin Globulin Albumin/Globulin Ratio Arterial Blood Potassium Urine Color Urine Clarity Urine pH Ur Specific Bowman Urine Protein Urine Glucose (UA) Urine Ketones Urine Blood Urine Nitrate Urine Bilirubin Urine Urobilinogen Ur Leukocyte Esterase Urine RBC (Auto) Urine WBC Clumps (Auto) Urine Microscopic WBC Stool Occult Blood Vancomycin Trough 10/24/17 10/24/17 10/24/17 04:30 04:30 04:30 WBC 22.8 H RBC 3.43 L Hgb 9.2 L Hct 28.9 L MCV 84.2 MCH 26.8 L MCHC 31.8 L RDW 16.3 H Plt Count 249 MPV 7.1 L Neut % (Auto) 88.2 H Lymph % (Auto) 5.8 L [place] % (Auto) 5.9 Eos % (Auto) 0.1 Baso % (Auto) 0.0 Neut # (Auto) 20.1 H Lymph # (Auto) 1.3 [place] # (Auto) 1.3 H Eos # (Auto) 0.0 Baso # (Auto) 0.0 pCO2 pO2 HCO3 ABG pH ABG Total CO2 ABG O2 Saturation ABG Base Excess Arnoldo Test ABG Potassium A-a O2 Difference Glucose Lactate Vent Mode Mechanical Rate FiO2 Tidal Volume PEEP Sodium 140 Potassium 3.4 L Chloride 97 L Carbon Dioxide 25 Anion Gap 21 H BUN 44 H Creatinine 4.9 H Est GFR ( Amer) 10 Est GFR (Non-Af Amer) 9 POC Glucose (mg/dL) Random Glucose 234 H Calcium 7.6 L Total Bilirubin 0.3 AST 31 ALT 36 Alkaline Phosphatase 107 Total Protein 5.0 L Albumin 2.4 L Globulin 2.6 Albumin/Globulin Ratio 0.9 L Arterial Blood Potassium Urine Color Urine Clarity Urine pH Ur Specific Bowman Urine Protein Urine Glucose (UA) Urine Ketones Urine Blood Urine Nitrate Urine Bilirubin Urine Urobilinogen Ur Leukocyte Esterase Urine RBC (Auto) Urine WBC Clumps (Auto) Urine Microscopic WBC Stool Occult Blood Vancomycin Trough 25.4 H 10/24/17 04:35 WBC RBC Hgb Hct MCV MCH MCHC RDW Plt Count MPV Neut % (Auto) Lymph % (Auto) [place] % (Auto) Eos % (Auto) Baso % (Auto) Neut # (Auto) Lymph # (Auto) [place] # (Auto) Eos # (Auto) Baso # (Auto) pCO2 36 pO2 195 H HCO3 27.1 ABG pH 7.47 H ABG Total CO2 27.3 ABG O2 Saturation 99.1 H ABG Base Excess 2.7 Arnoldo Test Yes ABG Potassium 3.2 L A-a O2 Difference 45.0 Glucose 267 H Lactate 2.0 Vent Mode A/c Mechanical Rate 12 FiO2 40.0 Tidal Volume 450 PEEP 5 Sodium 134.0 Potassium Chloride 103.0 Carbon Dioxide Anion Gap BUN Creatinine Est GFR ( Amer) Est GFR (Non-Af Amer) POC Glucose (mg/dL) Random Glucose Calcium Total Bilirubin AST ALT Alkaline Phosphatase Total Protein Albumin Globulin Albumin/Globulin Ratio Arterial Blood Potassium 3.2 L Urine Color Urine Clarity Urine pH Ur Specific [place] Urine Protein Urine Glucose (UA) Urine Ketones Urine Blood Urine Nitrate Urine Bilirubin Urine Urobilinogen Ur Leukocyte Esterase Urine RBC (Auto) Urine WBC Clumps (Auto) Urine Microscopic WBC Stool Occult Blood Vancomycin Trough EKG/Cardiology Studies: Cardiology / EKG Studies 10/23/17 18:28 EKG [ELECTROCARDIOGRAM] Stat Comment: Mode Of Transportation: PORTABLE Reason For Exam: tachycardia PRE OP:: N Does Patient Have a Pacemaker?: No Isolation: Contact 10/23/17 21:31 EKG [ELECTROCARDIOGRAM] Stat Comment: Mode Of Transportation: Reason For Exam: svt Isolation: Contact Fingerstick Blood Sugar Results: 257 Critical Care Progress Note - Ventilator Checklist Head of Bed 30 Degrees: Yes Daily Sedation Vacation: Yes Daily Assessment of Readiness to Wean: Yes Daily Spontaneous Breathing Trial: Yes PUD Prophalyxis: Yes DVT Prophylaxis: Yes Oral Care with Chlorhexidine Gluconate {CHG}: Yes - Nutrition Nutrition: Nutrition Category Date Time Status NPO Diet [DIET] Diets 10/20/17 Breakfast Active Assessment/Plan (1) Acute respiratory failure with hypoxia Current Visit: Yes Status: Acute Priority: High Comment: Continue with ICU care for hemodynamic and Respiratory monitoring Wean off Fio2 as tolerated Avoid alkalemia and hyperoxia. Diuresis Strict I&O, negative fluid balance Aggressive pulmonary toilet, chest PT, suctioning Vent weaning in progress Daily CAT/SBT IV antibiotics, Continue IV Vancomycin, meropenem, Azithromycin and Metronidazole (2) Septic shock Current Visit: Yes Status: Acute Priority: High Comment: IV antibiotics, Continue IV Vancomycin, meropenem, Azithromycin and Metronidazole Continue levophed for BP support, wean as tolerated Maintain MAP 65-75 (3) Acute on chronic renal failure Current Visit: Yes Status: Acute Priority: High Comment: Acute kidney injury likely multifactorial due to circulatory failure, Obstructive ueopathy and septic shock Stable Bun/Cr HD as pe renal (4) Metabolic acidosis Current Visit: Yes Status: Acute Priority: High Comment: Improved with HD and bicarb drip (5) Acute on chronic renal failure Current Visit: No Status: Acute Comment: HD as per renal (6) UTI (urinary tract infection) with pyuria Current Visit: Yes Status: Acute Priority: High (7) Obstructive uropathy Current Visit: Yes Status: Acute Priority: Medium (8) Retained ureteral stent Current Visit: Yes Status: Resolved Priority: Medium (9) CKD (chronic kidney disease) stage 3, GFR 30-59 ml/min Current Visit: No Status: Chronic Priority: Medium
--- NOTE | 2017-10-24 07:38 | CARD ---
APPROVED REPORT EKG Measurement Heart [id number] <Conclusion> Sinus rhythm with premature atrial complexes Low voltage QRS Borderline ECG
--- NOTE | 2017-10-24 07:41 | CARD ---
APPROVED REPORT EKG Measurement Heart [id number] <Conclusion> Atrial fibrillation with rapid ventricular response Low voltage QRS Possible Anterolateral infarct, age undetermined Abnormal ECG
--- NOTE | 2017-10-24 08:50 | RAD ---
HISTORY: reevaluate ETT COMPARISON: No prior. FINDINGS: LUNGS: No active pulmonary disease. PLEURA: Small left pleural effusion. CARDIOVASCULAR: ET tube tip at tracheal justo and should be withdrawn several cm. NG tube and right IJ central venous multi lumen catheter unchanged. OSSEOUS STRUCTURES: No significant abnormalities. VISUALIZED UPPER ABDOMEN: Normal. OTHER FINDINGS: None. IMPRESSION: ET tube tip at tracheal justo and should be withdrawn several cm.
[2017-10-24] MEDS: Silver Sulfadiazine 1% Cream (20 gm) TOP SCH (08:53)
[2017-10-24] MEDS: Azithromycin 500 MG in Sodium Chloride 0.9% 250 ML IVPB SCH (08:54)
--- NOTE | 2017-10-24 08:56 | PQF GENQUE ---
Dr. Boswell, Etiology of Sepsis? if known after the work up is completed --Please document suspected or confirmed causative organism if known after the work up is completed --Please document suspected or confirmed localized infection -- Please clarify if sepsis is related to a device OR: Unable to determine OR: Other explanation of clinical finding 10/21 ID note; 77 year old female with PMH of DM II, HTN , CKD stage 4, hydronephrosis s/p bl ureteral stents who was admitted 4 weeks ago to [facility] floor for fever, leukocytosis and sepsis secondary to retained ureteral stents and UTI and diarrhea.duing that admission pt. ws found to have c.diff and was placed on oral vancomycin treatment and was also on IV cefepime for her UTI and sepsis secondary to the retained ureteral stents. 10/22 Police Officer Crime Prevention: Infectious disease: Sepsis, source urinary tract, probably infected This form is a permanent part of the medical record Clarification of your documentation is requested to better reflect the severity of illness and intensity of treatment of your patient. Indicators present [] Specify: [] [] Specify: [] [] Specify: [] [] Specify: [] Location in the medical record that reflects the above clinical findings: [] Treatment Provided: [] PHYSICIAN'S RESPONSE Based on your medical judgment of the clinical indicators outlined above please clarify the following: [] Practitioner response [] If unable to determine, please check the box, sign and date. Present On Admission (POA) Indicator: [] Present at the time of admission [] Not present at the time of admission [] Clinically Undetermined In responding to this query, please exercise your independent professional judgment. The fact that a question is asked does not imply that any particular answer is desired or expected. Thank you for your clarification on this documentation. If you have any questions please call. * Thank you, Yumiko Sabillon RN ext. #[phone] MTDD
--- NOTE | 2017-10-24 09:37 | PQF GENQUE ---
Dr. Boswell, 4 questions to follow: 1. Please specify location of pressure ulcer: if in agreement with the Wound labor relations officer Body site(s) involved Laterality (bilateral, left, right) Other (please specify) Clinically unable to determine Unknown 2. Please specify POA status of each pressure ulcer: Not present on admission Present on admission Other (please specify) Clinically unable to determine Unknown 3. Please specify stage of each pressure ulcer (National Pressure Ulcer Advisory Panel definitions): Stage I: Intact skin with non-blanchable redness of a localized area Stage II: Partial thickness skin loss involving dermis with a shallow open ulcer or an open serum-filled blister Stage III: Full thickness skin loss involving damage or necrosis of subcutaneous tissue Stage IV: Full thickness skin loss with exposed bone, tendon or muscle Unstageable: Full thickness tissue loss in which the base of the of ulcer is covered by slough and/or eschar in the wound bed Deep tissue Injury (DTI):Purple or maroon localized area of intact skin due to damage of underlying soft tissue from pressure and/or shear Other (please specify) Clinically unable to determine Unknown 4. If ulcer is not due to pressure, please specify other cause of ulcer (e.g., diabetes, PVD, varicose veins) ER MD: Present On Arrival: Pressure Ulcer (sacral erythema) H and P: POA; Decubitus Ulcer Present: No 3 pressure ulcers as follows: 10/23@12;46: Wound RN:left lateral heel and right plantar great toe:Pressure Ulcer Stage: deep tissue injury and right medial plantar heel:Pressure Ulcer: Stage 2 RN: pressure ulcer assessment: sacrum: non-blanchable redness This form is a permanent part of the medical record Clarification of your documentation is requested to better reflect the severity of illness and intensity of treatment of your patient. Indicators present [] Specify: [] [] Specify: [] [] Specify: [] [] Specify: [] Location in the medical record that reflects the above clinical findings: [] Treatment Provided: [] PHYSICIAN'S RESPONSE Based on your medical judgment of the clinical indicators outlined above please clarify the following: [] Practitioner response [] If unable to determine, please check the box, sign and date. Present On Admission (POA) Indicator: [] Present at the time of admission [] Not present at the time of admission [] Clinically Undetermined In responding to this query, please exercise your independent professional judgment. The fact that a question is asked does not imply that any particular answer is desired or expected. Thank you for your clarification on this documentation. If you have any questions please call. * Thank you, Yumiko Sabillon RN ext. #[phone] MTDD
[2017-10-24] MEDS ORDERED: Midazolam 50 MG in Dextrose 5% In Water 50 ML IV ONE ×2 (14:09→14:30)
--- NOTE | 2017-10-24 15:18 | CP.PCM.PN ---
Subjective - Date & Time of Evaluation Date of Evaluation: 10/24/17 Time of Evaluation: 12:00 - Subjective Subjective: ID note- pt. seen and examined today in ICU. remains intubated and sedated and on pressor for BP support. as per nurse today only on 1 pressor. Objective - Vital Signs/Intake and Output Vital Signs (last 24 hours): Temp Pulse Resp BP Pulse Ox 98.1 F 115 H 21 131/66 100 10/24/17 12:00 10/24/17 13:00 10/24/17 13:00 10/24/17 13:00 10/24/17 13:00 Intake and Output: 10/24/17 10/24/17 06:59 18:59 Intake Total 1704 1086 Output Total 520 Balance 1184 1086 - Medications Medications: Current Medications Aspirin (Ecotrin) 81 mg PO DAILY [facility] Last Admin: 10/21/17 08:49 Dose: 81 mg Atorvastatin Calcium (Lipitor) 40 mg PO QPM [facility] Last Admin: 10/21/17 17:21 Dose: Not Given Dextrose (Dextrose 50% Inj) 0 ml IV STAT PRN; Protocol PRN Reason: Hypoglycemia Protocol Dextrose (Glutose 15) 0 gm PO ONCE PRN; Protocol PRN Reason: Hypoglycemia Protocol Dextrose (Dextrose 50% Inj) 0 ml IV STAT PRN; Protocol PRN Reason: Hypoglycemia Protocol Dextrose (Glutose 15) 0 gm PO ONCE PRN; Protocol PRN Reason: Hypoglycemia Protocol Epoetin Axel (Procrit) 10,000 unit SC MWF [facility] Last Admin: 10/23/17 18:49 Dose: 10,000 unit Glucagon (Glucagen Diagnostic Kit) 0 mg IM STAT PRN; Protocol PRN Reason: Hypoglycemia Protocol Glucagon (Glucagen Diagnostic Kit) 0 mg IM STAT PRN; Protocol PRN Reason: Hypoglycemia Protocol Heparin Sodium (Porcine) (Heparin) 5,000 units SC Q8 [facility] PRN Reason: Protocol Last Admin: 10/24/17 12:06 Dose: 5,000 units Azithromycin 500 mg/ Sodium (Chloride) 250 mls @ 250 mls/hr IVPB DAILY [facility] PRN Reason: Protocol Last Admin: 10/24/17 08:54 Dose: 250 mls/hr Metronidazole (Flagyl 500mg/100ml Ns) 100 mls @ 100 mls/hr IVPB Q8 [facility] PRN Reason: Protocol Last Admin: 10/24/17 08:45 Dose: 100 mls/hr Meropenem 500 mg/ Sodium (Chloride) 100 mls @ 100 mls/hr IVPB Q8 [facility] PRN Reason: Protocol Last Admin: 10/24/17 08:51 Dose: 100 mls/hr Vancomycin HCl 1 gm/ Sodium (Chloride) 250 mls @ 125 mls/hr IVPB DAILY [facility] PRN Reason: Protocol Last Admin: 10/24/17 08:54 Dose: 125 mls/hr Norepinephrine Bitartrate 4 mg (/ Dextrose) 254 mls @ 20.95 mls/hr IV .Q12H8M [facility]; 5.5 MCG/MIN PRN Reason: Protocol Last Titration: 10/23/17 21:25 Dose: Infused Midazolam HCl 50 mg/ Dextrose 100 mls @ 4 mls/hr IV .Q24H ONE; 2 MG/HR PRN Reason: Protocol Stop: 10/25/17 14:44 Insulin Human Regular (Humulin R) 0 units SC Q4 [facility] PRN Reason: Protocol Last Admin: 10/24/17 12:07 Dose: 3 unit Nystatin (Nystop Topical Powder) 1 applic TOP TID [facility] Last Admin: 10/24/17 12:09 Dose: 1 applic Pantoprazole Sodium (Protonix Inj) 40 mg IVP DAILY [facility] Last Admin: 10/24/17 08:52 Dose: 40 mg Silver Sulfadiazine (Silvadene 1% 20 Gm) 1 ea TOP DAILY [facility] Last Admin: 10/24/17 08:53 Dose: 1 each - Labs Labs: - Additional Findings Additional findings: - Constitutional Appears: Chronically Ill Additional comments: Intubated - Head Exam Head Exam: ATRAUMATIC - ENT Exam Additional comments: ET tube in place - Respiratory Exam Additional comments: on the ventilator breath sounds heard - Cardiovascular Exam Cardiovascular Exam: Tachycardia, +S1, +S2 - GI/Abdominal Exam Additional comments: , soft, bowel sounds heard No guarding - Extremities Exam Additional comments: 1+ LE edema B/L - Neurological Exam responds only to painful stimuli Laboratory Results - last 72 hr 10/21/17 10/21/17 10/21/17 04:18 04:18 14:00 WBC RBC Hgb Hct MCV MCH MCHC RDW Plt Count MPV Neut % (Auto) Lymph % (Auto) [place] % (Auto) Eos % (Auto) Baso % (Auto) Neut # (Auto) Lymph # (Auto) [place] # (Auto) Eos # (Auto) Baso # (Auto) Neutrophils % (Manual) Band Neutrophils % Lymphocytes % (Manual) Reactive Lymphs % Monocytes % (Manual) Platelet Estimate Large Platelets Polychromasia Hypochromasia (manual) Poikilocytosis (manual Anisocytosis (manual) Microcytosis (manual) Target Cells Ovalocytes pCO2 pO2 HCO3 ABG pH ABG Total CO2 ABG O2 Saturation ABG O2 Content ABG Base Excess ABG Hemoglobin ABG Carboxyhemoglobin POC ABG HHb (Measured) ABG Methemoglobin ABG O2 Capacity Arnoldo Test ABG Potassium A-a O2 Difference Hgb O2 Saturation Glucose Lactate Vent Mode Mechanical Rate FiO2 Tidal Volume PEEP Sodium Potassium Chloride Carbon Dioxide Anion Gap BUN Creatinine Est GFR ( Amer) Est GFR (Non-Af Amer) POC Glucose (mg/dL) Random Glucose Calcium Phosphorus Magnesium Total Bilirubin AST ALT Alkaline Phosphatase Total Protein Albumin Globulin Albumin/Globulin Ratio Arterial Blood Potassium Urine Color Urine Clarity Urine pH Ur Specific [place] Urine Protein Urine Glucose (UA) Urine Ketones Urine Blood Urine Nitrate Urine Bilirubin Urine Urobilinogen Ur Leukocyte Esterase Urine RBC (Auto) Urine WBC Clumps (Auto) Urine Microscopic WBC Stool Occult Blood Vancomycin Trough C. difficile Tox B Gene Detected H Hep Bs Antigen Negative Hep Bs Antibody Negative Hep B Core IgM Ab Negative Hepatitis C Antibody Negative Blood Type Antibody Screen BBK History Checked 10/21/17 10/21/17 10/21/17 21:26 22:33 23:35 WBC RBC Hgb Hct MCV MCH MCHC RDW Plt Count MPV Neut % (Auto) Lymph % (Auto) [place] % (Auto) Eos % (Auto) Baso % (Auto) Neut # (Auto) Lymph # (Auto) [place] # (Auto) Eos # (Auto) Baso # (Auto) Neutrophils % (Manual) Band Neutrophils % Lymphocytes % (Manual) Reactive Lymphs % Monocytes % (Manual) Platelet Estimate Large Platelets Polychromasia Hypochromasia (manual) Poikilocytosis (manual Anisocytosis (manual) Microcytosis (manual) Target Cells Ovalocytes pCO2 pO2 HCO3 ABG pH ABG Total CO2 ABG O2 Saturation ABG O2 Content ABG Base Excess ABG Hemoglobin ABG Carboxyhemoglobin POC ABG HHb (Measured) ABG Methemoglobin ABG O2 Capacity Arnoldo Test ABG Potassium A-a O2 Difference Hgb O2 Saturation Glucose Lactate Vent Mode Mechanical Rate FiO2 Tidal Volume PEEP Sodium Potassium Chloride Carbon Dioxide Anion Gap BUN Creatinine Est GFR ( Amer) Est GFR (Non-Af Amer) POC Glucose (mg/dL) 215 H 205 H 193 H Random Glucose Calcium Phosphorus Magnesium Total Bilirubin AST ALT Alkaline Phosphatase Total Protein Albumin Globulin Albumin/Globulin Ratio Arterial Blood Potassium Urine Color Urine Clarity Urine pH Ur Specific [place] Urine Protein Urine Glucose (UA) Urine Ketones Urine Blood Urine Nitrate Urine Bilirubin Urine Urobilinogen Ur Leukocyte Esterase Urine RBC (Auto) Urine WBC Clumps (Auto) Urine Microscopic WBC Stool Occult Blood Vancomycin Trough C. difficile Tox B Gene Hep Bs Antigen Hep Bs Antibody Hep B Core IgM Ab Hepatitis C Antibody Blood Type Antibody Screen BBK History Checked 10/22/17 10/22/17 10/22/17 00:38 01:34 02:35 WBC RBC Hgb Hct MCV MCH MCHC RDW Plt Count MPV Neut % (Auto) Lymph % (Auto) [place] % (Auto) Eos % (Auto) Baso % (Auto) Neut # (Auto) Lymph # (Auto) [place] # (Auto) Eos # (Auto) Baso # (Auto) Neutrophils % (Manual) Band Neutrophils % Lymphocytes % (Manual) Reactive Lymphs % Monocytes % (Manual) Platelet Estimate Large Platelets Polychromasia Hypochromasia (manual) Poikilocytosis (manual Anisocytosis (manual) Microcytosis (manual) Target Cells Ovalocytes pCO2 pO2 HCO3 ABG pH ABG Total CO2 ABG O2 Saturation ABG O2 Content ABG Base Excess ABG Hemoglobin ABG Carboxyhemoglobin POC ABG HHb (Measured) ABG Methemoglobin ABG O2 Capacity Arnoldo Test ABG Potassium A-a O2 Difference Hgb O2 Saturation Glucose Lactate Vent Mode Mechanical Rate FiO2 Tidal Volume PEEP Sodium Potassium Chloride Carbon Dioxide Anion Gap BUN Creatinine Est GFR ( Amer) Est GFR (Non-Af Amer) POC Glucose (mg/dL) 164 H 136 H 186 H Random Glucose Calcium Phosphorus Magnesium Total Bilirubin AST ALT Alkaline Phosphatase Total Protein Albumin Globulin Albumin/Globulin Ratio Arterial Blood Potassium Urine Color Urine Clarity Urine pH Ur Specific [place] Urine Protein Urine Glucose (UA) Urine Ketones Urine Blood Urine Nitrate Urine Bilirubin Urine Urobilinogen Ur Leukocyte Esterase Urine RBC (Auto) Urine WBC Clumps (Auto) Urine Microscopic WBC Stool Occult Blood Vancomycin Trough C. difficile Tox B Gene Hep Bs Antigen Hep Bs Antibody Hep B Core IgM Ab Hepatitis C Antibody Blood Type Antibody Screen BBK History Checked 10/22/17 10/22/17 10/22/17 03:27 04:01 04:30 WBC RBC Hgb Hct MCV MCH MCHC RDW Plt Count MPV Neut % (Auto) Lymph % (Auto) [place] % (Auto) Eos % (Auto) Baso % (Auto) Neut # (Auto) Lymph # (Auto) [place] # (Auto) Eos # (Auto) Baso # (Auto) Neutrophils % (Manual) Band Neutrophils % Lymphocytes % (Manual) Reactive Lymphs % Monocytes % (Manual) Platelet Estimate Large Platelets Polychromasia Hypochromasia (manual) Poikilocytosis (manual Anisocytosis (manual) Microcytosis (manual) Target Cells Ovalocytes pCO2 31 L pO2 252 H HCO3 23.8 ABG pH 7.46 H ABG Total CO2 23.0 ABG O2 Saturation 100.7 H ABG O2 Content 11.5 L ABG Base Excess -1.5 ABG Hemoglobin 7.8 L ABG Carboxyhemoglobin 1.2 POC ABG HHb (Measured) -0.7 L ABG Methemoglobin 0.5 ABG O2 Capacity 11.4 L Arnoldo Test Yes ABG Potassium A-a O2 Difference 66.0 Hgb O2 Saturation 99.0 H Glucose Lactate Vent Mode Prvc ac Mechanical Rate 14 FiO2 50.0 Tidal Volume 450 PEEP 5 Sodium Potassium Chloride Carbon Dioxide Anion Gap BUN Creatinine Est GFR ( Amer) Est GFR (Non-Af Amer) POC Glucose (mg/dL) 176 H 153 H Random Glucose Calcium Phosphorus Magnesium Total Bilirubin AST ALT Alkaline Phosphatase Total Protein Albumin Globulin Albumin/Globulin Ratio Arterial Blood Potassium Urine Color Urine Clarity Urine pH Ur Specific [place] Urine Protein Urine Glucose (UA) Urine Ketones Urine Blood Urine Nitrate Urine Bilirubin Urine Urobilinogen Ur Leukocyte Esterase Urine RBC (Auto) Urine WBC Clumps (Auto) Urine Microscopic WBC Stool Occult Blood Vancomycin Trough C. difficile Tox B Gene Hep Bs Antigen Hep Bs Antibody Hep B Core IgM Ab Hepatitis C Antibody Blood Type Antibody Screen BBK History Checked 10/22/17 10/22/17 10/22/17 05:34 06:00 06:00 WBC 31.4 H RBC 2.90 L Hgb 7.9 L D Hct 24.1 L MCV 83.1 D MCH 27.1 MCHC 32.7 L RDW 15.1 H Plt Count 315 D MPV 7.3 Neut % (Auto) 92.6 H Lymph % (Auto) 2.6 L [place] % (Auto) 4.6 Eos % (Auto) 0.1 Baso % (Auto) 0.1 Neut # (Auto) 29.1 H Lymph # (Auto) 0.8 L [place] # (Auto) 1.4 H Eos # (Auto) 0.0 Baso # (Auto) 0.0 Neutrophils % (Manual) 88 H Band Neutrophils % 2 Lymphocytes % (Manual) 4 L Reactive Lymphs % 2 H Monocytes % (Manual) 4 Platelet Estimate Normal Large Platelets Present Polychromasia Slight Hypochromasia (manual) Slight Poikilocytosis (manual Slight Anisocytosis (manual) Moderate Microcytosis (manual) Moderate Target Cells Slight Ovalocytes Slight pCO2 pO2 HCO3 ABG pH ABG Total CO2 ABG O2 Saturation ABG O2 Content ABG Base Excess ABG Hemoglobin ABG Carboxyhemoglobin POC ABG HHb (Measured) ABG Methemoglobin ABG O2 Capacity Arnoldo Test ABG Potassium A-a O2 Difference Hgb O2 Saturation Glucose Lactate Vent Mode Mechanical Rate FiO2 Tidal Volume PEEP Sodium 140 Potassium 3.3 L Chloride 94 L Carbon Dioxide 22 Anion Gap 27 H BUN 65 H Creatinine 7.3 H Est GFR ( Amer) 7 Est GFR (Non-Af Amer) 5 POC Glucose (mg/dL) 192 H Random Glucose 175 H Calcium 7.1 L Phosphorus 4.1 Magnesium 1.7 Total Bilirubin 0.4 AST 43 H D ALT 30 Alkaline Phosphatase 95 Total Protein 5.3 L Albumin 2.7 L D Globulin 2.6 Albumin/Globulin Ratio 1.0 Arterial Blood Potassium Urine Color Urine Clarity Urine pH Ur Specific [place] Urine Protein Urine Glucose (UA) Urine Ketones Urine Blood Urine Nitrate Urine Bilirubin Urine Urobilinogen Ur Leukocyte Esterase Urine RBC (Auto) Urine WBC Clumps (Auto) Urine Microscopic WBC Stool Occult Blood Vancomycin Trough C. difficile Tox B Gene Hep Bs Antigen Hep Bs Antibody Hep B Core IgM Ab Hepatitis C Antibody Blood Type Antibody Screen BBK History Checked 10/22/17 10/22/17 10/22/17 06:31 07:48 09:37 WBC RBC Hgb Hct MCV MCH MCHC RDW Plt Count MPV Neut % (Auto) Lymph % (Auto) [place] % (Auto) Eos % (Auto) Baso % (Auto) Neut # (Auto) Lymph # (Auto) [place] # (Auto) Eos # (Auto) Baso # (Auto) Neutrophils % (Manual) Band Neutrophils % Lymphocytes % (Manual) Reactive Lymphs % Monocytes % (Manual) Platelet Estimate Large Platelets Polychromasia Hypochromasia (manual) Poikilocytosis (manual Anisocytosis (manual) Microcytosis (manual) Target Cells Ovalocytes pCO2 pO2 HCO3 ABG pH ABG Total CO2 ABG O2 Saturation ABG O2 Content ABG Base Excess ABG Hemoglobin ABG Carboxyhemoglobin POC ABG HHb (Measured) ABG Methemoglobin ABG O2 Capacity Arnoldo Test ABG Potassium A-a O2 Difference Hgb O2 Saturation Glucose Lactate Vent Mode Mechanical Rate FiO2 Tidal Volume PEEP Sodium Potassium Chloride Carbon Dioxide Anion Gap BUN Creatinine Est GFR ( Amer) Est GFR (Non-Af Amer) POC Glucose (mg/dL) 168 H 182 H 166 H Random Glucose Calcium Phosphorus Magnesium Total Bilirubin AST ALT Alkaline Phosphatase Total Protein Albumin Globulin Albumin/Globulin Ratio Arterial Blood Potassium Urine Color Urine Clarity Urine pH Ur Specific [place] Urine Protein Urine Glucose (UA) Urine Ketones Urine Blood Urine Nitrate Urine Bilirubin Urine Urobilinogen Ur Leukocyte Esterase Urine RBC (Auto) Urine WBC Clumps (Auto) Urine Microscopic WBC Stool Occult Blood Vancomycin Trough C. difficile Tox B Gene Hep Bs Antigen Hep Bs Antibody Hep B Core IgM Ab Hepatitis C Antibody Blood Type Antibody Screen BBK History Checked 10/22/17 10/22/17 10/22/17 11:48 14:18 15:04 WBC RBC Hgb Hct MCV MCH MCHC RDW Plt Count MPV Neut % (Auto) Lymph % (Auto) [place] % (Auto) Eos % (Auto) Baso % (Auto) Neut # (Auto) Lymph # (Auto) [place] # (Auto) Eos # (Auto) Baso # (Auto) Neutrophils % (Manual) Band Neutrophils % Lymphocytes % (Manual) Reactive Lymphs % Monocytes % (Manual) Platelet Estimate Large Platelets Polychromasia Hypochromasia (manual) Poikilocytosis (manual Anisocytosis (manual) Microcytosis (manual) Target Cells Ovalocytes pCO2 pO2 HCO3 ABG pH ABG Total CO2 ABG O2 Saturation ABG O2 Content ABG Base Excess ABG Hemoglobin ABG Carboxyhemoglobin POC ABG HHb (Measured) ABG Methemoglobin ABG O2 Capacity Arnoldo Test ABG Potassium A-a O2 Difference Hgb O2 Saturation Glucose Lactate Vent Mode Mechanical Rate FiO2 Tidal Volume PEEP Sodium Potassium Chloride Carbon Dioxide Anion Gap BUN Creatinine Est GFR ( Amer) Est GFR (Non-Af Amer) POC Glucose (mg/dL) 174 H 145 H 154 H Random Glucose Calcium Phosphorus Magnesium Total Bilirubin AST ALT Alkaline Phosphatase Total Protein Albumin Globulin Albumin/Globulin Ratio Arterial Blood Potassium Urine Color Urine Clarity Urine pH Ur Specific [place] Urine Protein Urine Glucose (UA) Urine Ketones Urine Blood Urine Nitrate Urine Bilirubin Urine Urobilinogen Ur Leukocyte Esterase Urine RBC (Auto) Urine WBC Clumps (Auto) Urine Microscopic WBC Stool Occult Blood Vancomycin Trough C. difficile Tox B Gene Hep Bs Antigen Hep Bs Antibody Hep B Core IgM Ab Hepatitis C Antibody Blood Type Antibody Screen BBK History Checked 10/22/17 10/22/17 10/22/17 16:42 18:32 20:15 WBC RBC Hgb Hct MCV MCH MCHC RDW Plt Count MPV Neut % (Auto) Lymph % (Auto) [place] % (Auto) Eos % (Auto) Baso % (Auto) Neut # (Auto) Lymph # (Auto) [place] # (Auto) Eos # (Auto) Baso # (Auto) Neutrophils % (Manual) Band Neutrophils % Lymphocytes % (Manual) Reactive Lymphs % Monocytes % (Manual) Platelet Estimate Large Platelets Polychromasia Hypochromasia (manual) Poikilocytosis (manual Anisocytosis (manual) Microcytosis (manual) Target Cells Ovalocytes pCO2 pO2 HCO3 ABG pH ABG Total CO2 ABG O2 Saturation ABG O2 Content ABG Base Excess ABG Hemoglobin ABG Carboxyhemoglobin POC ABG HHb (Measured) ABG Methemoglobin ABG O2 Capacity Arnoldo Test ABG Potassium A-a O2 Difference Hgb O2 Saturation Glucose Lactate Vent Mode Mechanical Rate FiO2 Tidal Volume PEEP Sodium Potassium Chloride Carbon Dioxide Anion Gap BUN Creatinine Est GFR ( Amer) Est GFR (Non-Af Amer) POC Glucose (mg/dL) 170 H 124 H Random Glucose Calcium Phosphorus Magnesium Total Bilirubin AST ALT Alkaline Phosphatase Total Protein Albumin Globulin Albumin/Globulin Ratio Arterial Blood Potassium Urine Color Urine Clarity Urine pH Ur Specific [place] Urine Protein Urine Glucose (UA) Urine Ketones Urine Blood Urine Nitrate Urine Bilirubin Urine Urobilinogen Ur Leukocyte Esterase Urine RBC (Auto) Urine WBC Clumps (Auto) Urine Microscopic WBC Stool Occult Blood Vancomycin Trough C. difficile Tox B Gene Hep Bs Antigen Hep Bs Antibody Hep B Core IgM Ab Hepatitis C Antibody Blood Type A POSITIVE Antibody Screen Negative BBK History Checked Patient has bt 10/22/17 10/22/17 10/22/17 20:15 20:15 20:15 WBC 30.1 H RBC 2.83 L Hgb 7.7 L Hct 23.9 L MCV 84.6 MCH 27.1 MCHC 32.0 L RDW 15.7 H Plt Count 264 MPV Neut % (Auto) Lymph % (Auto) [place] % (Auto) Eos % (Auto) Baso % (Auto) Neut # (Auto) Lymph # (Auto) [place] # (Auto) Eos # (Auto) Baso # (Auto) Neutrophils % (Manual) Band Neutrophils % Lymphocytes % (Manual) Reactive Lymphs % Monocytes % (Manual) Platelet Estimate Large Platelets Polychromasia Hypochromasia (manual) Poikilocytosis (manual Anisocytosis (manual) Microcytosis (manual) Target Cells Ovalocytes pCO2 pO2 HCO3 ABG pH ABG Total CO2 ABG O2 Saturation ABG O2 Content ABG Base Excess ABG Hemoglobin ABG Carboxyhemoglobin POC ABG HHb (Measured) ABG Methemoglobin ABG O2 Capacity Arnoldo Test ABG Potassium A-a O2 Difference Hgb O2 Saturation Glucose Lactate Vent Mode Mechanical Rate FiO2 Tidal Volume PEEP Sodium 136 Potassium 3.2 L Chloride 97 L Carbon Dioxide 16 L Anion Gap 26 H BUN 65 H Creatinine 7.6 H* Est GFR ( Amer) 6 Est GFR (Non-Af Amer) 5 POC Glucose (mg/dL) Random Glucose 142 H Calcium 7.1 L Phosphorus Magnesium Total Bilirubin AST ALT Alkaline Phosphatase Total Protein Albumin Globulin Albumin/Globulin Ratio Arterial Blood Potassium Urine Color Urine Clarity Urine pH Ur Specific [place] Urine Protein Urine Glucose (UA) Urine Ketones Urine Blood Urine Nitrate Urine Bilirubin Urine Urobilinogen Ur Leukocyte Esterase Urine RBC (Auto) Urine WBC Clumps (Auto) Urine Microscopic WBC Stool Occult Blood Positive H Vancomycin Trough C. difficile Tox B Gene Hep Bs Antigen Hep Bs Antibody Hep B Core IgM Ab Hepatitis C Antibody Blood Type Antibody Screen BBK History Checked 10/22/17 10/22/17 10/23/17 20:31 22:33 00:25 WBC RBC Hgb Hct MCV MCH MCHC RDW Plt Count MPV Neut % (Auto) Lymph % (Auto) [place] % (Auto) Eos % (Auto) Baso % (Auto) Neut # (Auto) Lymph # (Auto) [place] # (Auto) Eos # (Auto) Baso # (Auto) Neutrophils % (Manual) Band Neutrophils % Lymphocytes % (Manual) Reactive Lymphs % Monocytes % (Manual) Platelet Estimate Large Platelets Polychromasia Hypochromasia (manual) Poikilocytosis (manual Anisocytosis (manual) Microcytosis (manual) Target Cells Ovalocytes pCO2 pO2 HCO3 ABG pH ABG Total CO2 ABG O2 Saturation ABG O2 Content ABG Base Excess ABG Hemoglobin ABG Carboxyhemoglobin POC ABG HHb (Measured) ABG Methemoglobin ABG O2 Capacity Arnoldo Test ABG Potassium A-a O2 Difference Hgb O2 Saturation Glucose Lactate Vent Mode Mechanical Rate FiO2 Tidal Volume PEEP Sodium Potassium Chloride Carbon Dioxide Anion Gap BUN Creatinine Est GFR ( Amer) Est GFR (Non-Af Amer) POC Glucose (mg/dL) 154 H 171 H 147 H Random Glucose Calcium Phosphorus Magnesium Total Bilirubin AST ALT Alkaline Phosphatase Total Protein Albumin Globulin Albumin/Globulin Ratio Arterial Blood Potassium Urine Color Urine Clarity Urine pH Ur Specific [place] Urine Protein Urine Glucose (UA) Urine Ketones Urine Blood Urine Nitrate Urine Bilirubin Urine Urobilinogen Ur Leukocyte Esterase Urine RBC (Auto) Urine WBC Clumps (Auto) Urine Microscopic WBC Stool Occult Blood Vancomycin Trough C. difficile Tox B Gene Hep Bs Antigen Hep Bs Antibody Hep B Core IgM Ab Hepatitis C Antibody Blood Type Antibody Screen BBK History Checked 10/23/17 10/23/17 10/23/17 02:31 04:20 04:20 WBC 32.3 H RBC 3.14 L Hgb 8.4 L Hct 26.5 L MCV 84.3 MCH 26.8 L MCHC 31.8 L RDW 16.0 H Plt Count 285 MPV Neut % (Auto) Lymph % (Auto) [place] % (Auto) Eos % (Auto) Baso % (Auto) Neut # (Auto) Lymph # (Auto) [place] # (Auto) Eos # (Auto) Baso # (Auto) Neutrophils % (Manual) Band Neutrophils % Lymphocytes % (Manual) Reactive Lymphs % Monocytes % (Manual) Platelet Estimate Large Platelets Polychromasia Hypochromasia (manual) Poikilocytosis (manual Anisocytosis (manual) Microcytosis (manual) Target Cells Ovalocytes pCO2 pO2 HCO3 ABG pH ABG Total CO2 ABG O2 Saturation ABG O2 Content ABG Base Excess ABG Hemoglobin ABG Carboxyhemoglobin POC ABG HHb (Measured) ABG Methemoglobin ABG O2 Capacity Arnoldo Test ABG Potassium A-a O2 Difference Hgb O2 Saturation Glucose Lactate Vent Mode Mechanical Rate FiO2 Tidal Volume PEEP Sodium 140 Potassium 3.6 Chloride 100 Carbon Dioxide 14 L Anion Gap 30 H BUN 62 H Creatinine 7.6 H* Est GFR ( Amer) 6 Est GFR (Non-Af Amer) 5 POC Glucose (mg/dL) 172 H Random Glucose 205 H Calcium 7.5 L Phosphorus Magnesium Total Bilirubin 0.4 AST 35 ALT 34 Alkaline Phosphatase 91 Total Protein 5.1 L Albumin 2.5 L Globulin 2.6 Albumin/Globulin Ratio 1.0 Arterial Blood Potassium Urine Color Urine Clarity Urine pH Ur Specific [place] Urine Protein Urine Glucose (UA) Urine Ketones Urine Blood Urine Nitrate Urine Bilirubin Urine Urobilinogen Ur Leukocyte Esterase Urine RBC (Auto) Urine WBC Clumps (Auto) Urine Microscopic WBC Stool Occult Blood Vancomycin Trough C. difficile Tox B Gene Hep Bs Antigen Hep Bs Antibody Hep B Core IgM Ab Hepatitis C Antibody Blood Type Antibody Screen BBK History Checked 10/23/17 10/23/17 10/23/17 04:50 05:22 06:27 WBC RBC Hgb Hct MCV MCH MCHC RDW Plt Count MPV Neut % (Auto) Lymph % (Auto) [place] % (Auto) Eos % (Auto) Baso % (Auto) Neut # (Auto) Lymph # (Auto) [place] # (Auto) Eos # (Auto) Baso # (Auto) Neutrophils % (Manual) Band Neutrophils % Lymphocytes % (Manual) Reactive Lymphs % Monocytes % (Manual) Platelet Estimate Large Platelets Polychromasia Hypochromasia (manual) Poikilocytosis (manual Anisocytosis (manual) Microcytosis (manual) Target Cells Ovalocytes pCO2 27 L pO2 196 H HCO3 17.5 L ABG pH 7.35 ABG Total CO2 15.7 L ABG O2 Saturation 99.9 H ABG O2 Content 12.3 L ABG Base Excess -9.6 L ABG Hemoglobin 8.6 L ABG Carboxyhemoglobin 0.9 POC ABG HHb (Measured) 0.1 ABG Methemoglobin 1.0 ABG O2 Capacity 12.3 L Arnoldo Test Yes ABG Potassium A-a O2 Difference 55.0 Hgb O2 Saturation 98.1 H Glucose Lactate Vent Mode Prvc/ac Mechanical Rate 12 FiO2 40.0 Tidal Volume 450 PEEP 5 Sodium Potassium Chloride Carbon Dioxide Anion Gap BUN Creatinine Est GFR ( Amer) Est GFR (Non-Af Amer) POC Glucose (mg/dL) 202 H 219 H Random Glucose Calcium Phosphorus Magnesium Total Bilirubin AST ALT Alkaline Phosphatase Total Protein Albumin Globulin Albumin/Globulin Ratio Arterial Blood Potassium Urine Color Urine Clarity Urine pH Ur Specific [place] Urine Protein Urine Glucose (UA) Urine Ketones Urine Blood Urine Nitrate Urine Bilirubin Urine Urobilinogen Ur Leukocyte Esterase Urine RBC (Auto) Urine WBC Clumps (Auto) Urine Microscopic WBC Stool Occult Blood Vancomycin Trough C. difficile Tox B Gene Hep Bs Antigen Hep Bs Antibody Hep B Core IgM Ab Hepatitis C Antibody Blood Type Antibody Screen BBK History Checked 10/23/17 10/23/17 10/23/17 08:36 10:31 11:40 WBC RBC Hgb Hct MCV MCH MCHC RDW Plt Count MPV Neut % (Auto) Lymph % (Auto) [place] % (Auto) Eos % (Auto) Baso % (Auto) Neut # (Auto) Lymph # (Auto) [place] # (Auto) Eos # (Auto) Baso # (Auto) Neutrophils % (Manual) Band Neutrophils % Lymphocytes % (Manual) Reactive Lymphs % Monocytes % (Manual) Platelet Estimate Large Platelets Polychromasia Hypochromasia (manual) Poikilocytosis (manual Anisocytosis (manual) Microcytosis (manual) Target Cells Ovalocytes pCO2 pO2 HCO3 ABG pH ABG Total CO2 ABG O2 Saturation ABG O2 Content ABG Base Excess ABG Hemoglobin ABG Carboxyhemoglobin POC ABG HHb (Measured) ABG Methemoglobin ABG O2 Capacity Arnoldo Test ABG Potassium A-a O2 Difference Hgb O2 Saturation Glucose Lactate Vent Mode Mechanical Rate FiO2 Tidal Volume PEEP Sodium Potassium Chloride Carbon Dioxide Anion Gap BUN Creatinine Est GFR ( Amer) Est GFR (Non-Af Amer) POC Glucose (mg/dL) 220 H 188 H Random Glucose Calcium Phosphorus Magnesium Total Bilirubin AST ALT Alkaline Phosphatase Total Protein Albumin Globulin Albumin/Globulin Ratio Arterial Blood Potassium Urine Color Red Urine Clarity Turbid Urine pH 6.0 Ur Specific [place] 1.011 Urine Protein >=500 Urine Glucose (UA) 50 Urine Ketones 20 Urine Blood Large Urine Nitrate Negative Urine Bilirubin Negative Urine Urobilinogen 0.2-1.0 Ur Leukocyte Esterase Large Urine RBC (Auto) 127 H Urine WBC Clumps (Auto) Many H Urine Microscopic WBC 5118 H Stool Occult Blood Vancomycin Trough C. difficile Tox B Gene Hep Bs Antigen Hep Bs Antibody Hep B Core IgM Ab Hepatitis C Antibody Blood Type Antibody Screen BBK History Checked 10/23/17 10/23/17 10/23/17 13:01 15:54 20:41 WBC RBC Hgb Hct MCV MCH MCHC RDW Plt Count MPV Neut % (Auto) Lymph % (Auto) [place] % (Auto) Eos % (Auto) Baso % (Auto) Neut # (Auto) Lymph # (Auto) [place] # (Auto) Eos # (Auto) Baso # (Auto) Neutrophils % (Manual) Band Neutrophils % Lymphocytes % (Manual) Reactive Lymphs % Monocytes % (Manual) Platelet Estimate Large Platelets Polychromasia Hypochromasia (manual) Poikilocytosis (manual Anisocytosis (manual) Microcytosis (manual) Target Cells Ovalocytes pCO2 pO2 HCO3 ABG pH ABG Total CO2 ABG O2 Saturation ABG O2 Content ABG Base Excess ABG Hemoglobin ABG Carboxyhemoglobin POC ABG HHb (Measured) ABG Methemoglobin ABG O2 Capacity Arnoldo Test ABG Potassium A-a O2 Difference Hgb O2 Saturation Glucose Lactate Vent Mode Mechanical Rate FiO2 Tidal Volume PEEP Sodium Potassium Chloride Carbon Dioxide Anion Gap BUN Creatinine Est GFR ( Amer) Est GFR (Non-Af Amer) POC Glucose (mg/dL) 161 H 195 H 190 H Random Glucose Calcium Phosphorus Magnesium Total Bilirubin AST ALT Alkaline Phosphatase Total Protein Albumin Globulin Albumin/Globulin Ratio Arterial Blood Potassium Urine Color Urine Clarity Urine pH Ur Specific [place] Urine Protein Urine Glucose (UA) Urine Ketones Urine Blood Urine Nitrate Urine Bilirubin Urine Urobilinogen Ur Leukocyte Esterase Urine RBC (Auto) Urine WBC Clumps (Auto) Urine Microscopic WBC Stool Occult Blood Vancomycin Trough C. difficile Tox B Gene Hep Bs Antigen Hep Bs Antibody Hep B Core IgM Ab Hepatitis C Antibody Blood Type Antibody Screen BBK History Checked 10/23/17 10/24/17 10/24/17 23:58 03:53 04:30 WBC RBC Hgb Hct MCV MCH MCHC RDW Plt Count MPV Neut % (Auto) Lymph % (Auto) [place] % (Auto) Eos % (Auto) Baso % (Auto) Neut # (Auto) Lymph # (Auto) [place] # (Auto) Eos # (Auto) Baso # (Auto) Neutrophils % (Manual) Band Neutrophils % Lymphocytes % (Manual) Reactive Lymphs % Monocytes % (Manual) Platelet Estimate Large Platelets Polychromasia Hypochromasia (manual) Poikilocytosis (manual Anisocytosis (manual) Microcytosis (manual) Target Cells Ovalocytes pCO2 pO2 HCO3 ABG pH ABG Total CO2 ABG O2 Saturation ABG O2 Content ABG Base Excess ABG Hemoglobin ABG Carboxyhemoglobin POC ABG HHb (Measured) ABG Methemoglobin ABG O2 Capacity Arnoldo Test ABG Potassium A-a O2 Difference Hgb O2 Saturation Glucose Lactate Vent Mode Mechanical Rate FiO2 Tidal Volume PEEP Sodium Potassium Chloride Carbon Dioxide Anion Gap BUN Creatinine Est GFR ( Amer) Est GFR (Non-Af Amer) POC Glucose (mg/dL) 265 H 257 H Random Glucose Calcium Phosphorus Magnesium Total Bilirubin AST ALT Alkaline Phosphatase Total Protein Albumin Globulin Albumin/Globulin Ratio Arterial Blood Potassium Urine Color Urine Clarity Urine pH Ur Specific [place] Urine Protein Urine Glucose (UA) Urine Ketones Urine Blood Urine Nitrate Urine Bilirubin Urine Urobilinogen Ur Leukocyte Esterase Urine RBC (Auto) Urine WBC Clumps (Auto) Urine Microscopic WBC Stool Occult Blood Vancomycin Trough 25.4 H C. difficile Tox B Gene Hep Bs Antigen Hep Bs Antibody Hep B Core IgM Ab Hepatitis C Antibody Blood Type Antibody Screen BBK History Checked 10/24/17 10/24/17 10/24/17 04:30 04:30 04:35 WBC 22.8 H RBC 3.43 L Hgb 9.2 L Hct 28.9 L MCV 84.2 MCH 26.8 L MCHC 31.8 L RDW 16.3 H Plt Count 249 MPV 7.1 L Neut % (Auto) 88.2 H Lymph % (Auto) 5.8 L [place] % (Auto) 5.9 Eos % (Auto) 0.1 Baso % (Auto) 0.0 Neut # (Auto) 20.1 H Lymph # (Auto) 1.3 [place] # (Auto) 1.3 H Eos # (Auto) 0.0 Baso # (Auto) 0.0 Neutrophils % (Manual) Band Neutrophils % Lymphocytes % (Manual) Reactive Lymphs % Monocytes % (Manual) Platelet Estimate Large Platelets Polychromasia Hypochromasia (manual) Poikilocytosis (manual Anisocytosis (manual) Microcytosis (manual) Target Cells Ovalocytes pCO2 36 pO2 195 H HCO3 27.1 ABG pH 7.47 H ABG Total CO2 27.3 ABG O2 Saturation 99.1 H ABG O2 Content ABG Base Excess 2.7 ABG Hemoglobin ABG Carboxyhemoglobin POC ABG HHb (Measured) ABG Methemoglobin ABG O2 Capacity Arnoldo Test Yes ABG Potassium 3.2 L A-a O2 Difference 45.0 Hgb O2 Saturation Glucose 267 H Lactate 2.0 Vent Mode A/c Mechanical Rate 12 FiO2 40.0 Tidal Volume 450 PEEP 5 Sodium 140 134.0 Potassium 3.4 L Chloride 97 L 103.0 Carbon Dioxide 25 Anion Gap 21 H BUN 44 H Creatinine 4.9 H Est GFR ( Amer) 10 Est GFR (Non-Af Amer) 9 POC Glucose (mg/dL) Random Glucose 234 H Calcium 7.6 L Phosphorus Magnesium 1.6 Total Bilirubin 0.3 AST 31 ALT 36 Alkaline Phosphatase 107 Total Protein 5.0 L Albumin 2.4 L Globulin 2.6 Albumin/Globulin Ratio 0.9 L Arterial Blood Potassium 3.2 L Urine Color Urine Clarity Urine pH Ur Specific [place] Urine Protein Urine Glucose (UA) Urine Ketones Urine Blood Urine Nitrate Urine Bilirubin Urine Urobilinogen Ur Leukocyte Esterase Urine RBC (Auto) Urine WBC Clumps (Auto) Urine Microscopic WBC Stool Occult Blood Vancomycin Trough C. difficile Tox B Gene Hep Bs Antigen Hep Bs Antibody Hep B Core IgM Ab Hepatitis C Antibody Blood Type Antibody Screen BBK History Checked 10/24/17 10/24/17 10/24/17 08:07 11:30 16:34 WBC RBC Hgb Hct MCV MCH MCHC RDW Plt Count MPV Neut % (Auto) Lymph % (Auto) [place] % (Auto) Eos % (Auto) Baso % (Auto) Neut # (Auto) Lymph # (Auto) [place] # (Auto) Eos # (Auto) Baso # (Auto) Neutrophils % (Manual) Band Neutrophils % Lymphocytes % (Manual) Reactive Lymphs % Monocytes % (Manual) Platelet Estimate Large Platelets Polychromasia Hypochromasia (manual) Poikilocytosis (manual Anisocytosis (manual) Microcytosis (manual) Target Cells Ovalocytes pCO2 pO2 HCO3 ABG pH ABG Total CO2 ABG O2 Saturation ABG O2 Content ABG Base Excess ABG Hemoglobin ABG Carboxyhemoglobin POC ABG HHb (Measured) ABG Methemoglobin ABG O2 Capacity Arnoldo Test ABG Potassium A-a O2 Difference Hgb O2 Saturation Glucose Lactate Vent Mode Mechanical Rate FiO2 Tidal Volume PEEP Sodium Potassium Chloride Carbon Dioxide Anion Gap BUN Creatinine Est GFR ( Amer) Est GFR (Non-Af Amer) POC Glucose (mg/dL) 185 H 268 H 253 H Random Glucose Calcium Phosphorus Magnesium Total Bilirubin AST ALT Alkaline Phosphatase Total Protein Albumin Globulin Albumin/Globulin Ratio Arterial Blood Potassium Urine Color Urine Clarity Urine pH Ur Specific [place] Urine Protein Urine Glucose (UA) Urine Ketones Urine Blood Urine Nitrate Urine Bilirubin Urine Urobilinogen Ur Leukocyte Esterase Urine RBC (Auto) Urine WBC Clumps (Auto) Urine Microscopic WBC Stool Occult Blood Vancomycin Trough C. difficile Tox B Gene Hep Bs Antigen Hep Bs Antibody Hep B Core IgM Ab Hepatitis C Antibody Blood Type Antibody Screen BBK History Checked 10/24/17 20:49 WBC RBC Hgb Hct MCV MCH MCHC RDW Plt Count MPV Neut % (Auto) Lymph % (Auto) [place] % (Auto) Eos % (Auto) Baso % (Auto) Neut # (Auto) Lymph # (Auto) [place] # (Auto) Eos # (Auto) Baso # (Auto) Neutrophils % (Manual) Band Neutrophils % Lymphocytes % (Manual) Reactive Lymphs % Monocytes % (Manual) Platelet Estimate Large Platelets Polychromasia Hypochromasia (manual) Poikilocytosis (manual Anisocytosis (manual) Microcytosis (manual) Target Cells Ovalocytes pCO2 pO2 HCO3 ABG pH ABG Total CO2 ABG O2 Saturation ABG O2 Content ABG Base Excess ABG Hemoglobin ABG Carboxyhemoglobin POC ABG HHb (Measured) ABG Methemoglobin ABG O2 Capacity Arnoldo Test ABG Potassium A-a O2 Difference Hgb O2 Saturation Glucose Lactate Vent Mode Mechanical Rate FiO2 Tidal Volume PEEP Sodium Potassium Chloride Carbon Dioxide Anion Gap BUN Creatinine Est GFR ( Amer) Est GFR (Non-Af Amer) POC Glucose (mg/dL) 243 H Random Glucose Calcium Phosphorus Magnesium Total Bilirubin AST ALT Alkaline Phosphatase Total Protein Albumin Globulin Albumin/Globulin Ratio Arterial Blood Potassium Urine Color Urine Clarity Urine pH Ur Specific [place] Urine Protein Urine Glucose (UA) Urine Ketones Urine Blood Urine Nitrate Urine Bilirubin Urine Urobilinogen Ur Leukocyte Esterase Urine RBC (Auto) Urine WBC Clumps (Auto) Urine Microscopic WBC Stool Occult Blood Vancomycin Trough C. difficile Tox B Gene Hep Bs Antigen Hep Bs Antibody Hep B Core IgM Ab Hepatitis C Antibody Blood Type Antibody Screen BBK History Checked Microbiology 10/20/17 20:00 Blood Blood Culture - Preliminary NO GROWTH AFTER 4 DAYS 10/20/17 19:46 Blood Blood Culture - Preliminary NO GROWTH AFTER 4 DAYS 10/21/17 14:48 Blood-Venous Blood Culture - Preliminary NO GROWTH AFTER 3 DAYS 10/21/17 15:40 Blood-Venous Blood Culture - Preliminary NO GROWTH AFTER 3 DAYS 10/20/17 10:30 Naris MRSA Culture (Admit) - Final MRSA NOT DETECTED Assessment and Plan (1) Acute on chronic renal failure Status: Acute (2) Metabolic acidosis Status: Acute (3) Septic shock Status: Acute (4) UTI (urinary tract infection) Status: Acute (5) Hyperkalemia Status: Resolved - Assessment and Plan (Free Text) Assessment: A/P- 77 year old female with multiple medical conditions and noncomplaint including CKD stage 4, DM II, b/l ureteral stents ( repaced 09/2017) admitted with change in MS, lethargy found to be hyperkalemic, metabolic acidosis, acute on chronic renal insufficiency leukocytosis. anuric as per ER doc unable to insert clay and pus was noted . had clay inserted today bu ICU team and as per notes pus came out remains intubated On pressor for BP support HD for metabolic acidosis and anurea as per renal doc blood cx- neg x 4 metabolic acidosis c.diff colitis leukocytosis acute on chronic renal failure s/p emergent HD plan- advise to continue with empiric IV meropenm day #4 (renal dose). send urine cx. d/c IV vancomycin. continue with IV flagyl for c.diff colitis day #4 . would also advise to add vanco via NGT 250 mg q6 hours. acidosis and hyperkalemia management as per ICU and renal doctor. needs to have the ureteral stent removed once medically more stable. monitor temp and wbc closely. All labs and imaging results and chart notes reviewed. ICU time 50 minutes.
[2017-10-25] MEDS: metroNIDAZOLE 500mg/100ml NS 100 ML IVPB SCH ×3 (00:32→16:07)
[2017-10-25] MEDS: Meropenem 500 MG in Sodium Chloride 0.9% 100 ML IVPB SCH ×3 (00:32→16:08)
[2017-10-25] MEDS: Insulin Regular 100 units/ml SC SCH ×6 (00:33→21:00)
[2017-10-25] MEDS: Vancomycin 500 mg (Oral/Rectal USE) NG SCH ×3 (00:35→16:09)
[2017-10-25 05:00] LABS: ABG ALLEN TEST YES; ARTERIAL BLOOD GAS HCO3 29.1 mmol/L (21-28); ARTERIAL BLOOD GAS HEMOGLOBIN 8.7 g/dL (11.7-17.4); ARTERIAL BLOOD GAS O2 CAPACITY 12.4 mL/dL (16-24); ARTERIAL BLOOD GAS O2 CONTENT 12.3 ML/dL (15-23); ARTERIAL BLOOD GAS O2 SAT 99.3 % (95-98); ARTERIAL BLOOD GAS PCO2 38 mm/Hg (35-45); ARTERIAL BLOOD GAS PH 7.49 (7.35-7.45); ARTERIAL BLOOD GAS PO2 181 mm/Hg (80-100); ARTERIAL BLOOD GAS TCO2 30.2 mmol/L (22-28)
[2017-10-25 06:00] LABS: BASO % 0.1 % (0.0-2.0); EOS # 0.1 K/uL (0.0-0.7); EOS % 0.4 % (0.0-4.0); HEMOGLOBIN 8.5 g/dL (12.0-16.0); LYMPH # 2.2 K/uL (1.0-4.3); LYMPH % 14.6 % (20.0-40.0); MEAN CELL VOLUME 84.7 fl (81.0-99.0); MEAN CORPUSCULAR HEMOGLOBIN 26.6 pg (27.0-31.0); MEAN CORPUSCULAR HGB CONC 31.4 g/dL (33.0-37.0); MEAN PLATELET VOLUME 7.5 fl (7.2-11.7); MONO # 1.2 K/uL (0.0-0.8); MONO % 7.9 % (0.0-10.0); NEUT # 11.8 K/uL (1.8-7.0); RBC 3.22 Mil/uL (3.80-5.20); RED CELL DISTRIBUTION WIDTH 15.8 % (11.5-14.5); WHITE BLOOD COUNT 15.4 K/uL (4.8-10.8)
[2017-10-25 06:19] LABS: ALB/GLOB RATIO 0.9 (1.0-2.1); ALBUMIN 2.1 g/dL (3.5-5.0); CALCIUM 7.5 mg/dL (8.4-10.2)
--- NOTE | 2017-10-25 06:31 | CP.PCM.PN ---
Subjective - Date & Time of Evaluation Date of Evaluation: 10/24/17 Time of Evaluation: 12:45 - Subjective Subjective: Patient still sedated, on 1 vasopressor (levophed at 7.5 mcg); nursing noting some skin breakdown at heels; Objective - Vital Signs/Intake and Output Vital Signs (last 24 hours): Temp Pulse Resp BP Pulse Ox 100.1 F H 111 H 17 108/61 100 10/25/17 04:00 10/25/17 06:00 10/25/17 06:00 10/25/17 06:00 10/25/17 06:00 Intake and Output: 10/24/17 10/25/17 18:59 06:59 Intake Total 2658 960 Output Total 600 750 Balance 2058 210 - Medications Medications: Current Medications Aspirin (Ecotrin) 81 mg PO DAILY [facility] Last Admin: 10/21/17 08:49 Dose: 81 mg Atorvastatin Calcium (Lipitor) 40 mg PO QPM [facility] Last Admin: 10/21/17 17:21 Dose: Not Given Dextrose (Dextrose 50% Inj) 0 ml IV STAT PRN; Protocol PRN Reason: Hypoglycemia Protocol Dextrose (Glutose 15) 0 gm PO ONCE PRN; Protocol PRN Reason: Hypoglycemia Protocol Dextrose (Dextrose 50% Inj) 0 ml IV STAT PRN; Protocol PRN Reason: Hypoglycemia Protocol Dextrose (Glutose 15) 0 gm PO ONCE PRN; Protocol PRN Reason: Hypoglycemia Protocol Epoetin Axel (Procrit) 10,000 unit SC MWF [facility] Last Admin: 10/23/17 18:49 Dose: 10,000 unit Glucagon (Glucagen Diagnostic Kit) 0 mg IM STAT PRN; Protocol PRN Reason: Hypoglycemia Protocol Glucagon (Glucagen Diagnostic Kit) 0 mg IM STAT PRN; Protocol PRN Reason: Hypoglycemia Protocol Heparin Sodium (Porcine) (Heparin) 5,000 units SC Q8 [facility] PRN Reason: Protocol Last Admin: 10/25/17 02:00 Dose: 5,000 units Azithromycin 500 mg/ Sodium (Chloride) 250 mls @ 250 mls/hr IVPB DAILY [facility] PRN Reason: Protocol Last Admin: 10/24/17 08:54 Dose: 250 mls/hr Metronidazole (Flagyl 500mg/100ml Ns) 100 mls @ 100 mls/hr IVPB Q8 [facility] PRN Reason: Protocol Last Admin: 10/25/17 00:32 Dose: 100 mls/hr Meropenem 500 mg/ Sodium (Chloride) 100 mls @ 100 mls/hr IVPB Q8 [facility] PRN Reason: Protocol Last Admin: 10/25/17 00:32 Dose: 100 mls/hr Norepinephrine Bitartrate 4 mg (/ Dextrose) 254 mls @ 20.95 mls/hr IV .Q12H8M [facility]; 5.5 MCG/MIN PRN Reason: Protocol Last Titration: 10/23/17 21:25 Dose: Infused Midazolam HCl 50 mg/ Dextrose 100 mls @ 4 mls/hr IV .Q24H ONE; 2 MG/HR PRN Reason: Protocol Stop: 10/25/17 14:44 Last Admin: 10/24/17 16:12 Dose: 2 mg/hr, 4 mls/hr Insulin Human Regular (Humulin R) 0 units SC Q4 [facility] PRN Reason: Protocol Last Admin: 10/25/17 04:18 Dose: Not Given Nystatin (Nystop Topical Powder) 1 applic TOP TID [facility] Last Admin: 10/24/17 16:17 Dose: 1 applic Pantoprazole Sodium (Protonix Inj) 40 mg IVP DAILY [facility] Last Admin: 10/24/17 08:52 Dose: 40 mg Silver Sulfadiazine (Silvadene 1% 20 Gm) 1 ea TOP DAILY [facility] Last Admin: 10/24/17 08:53 Dose: 1 each Vancomycin HCl (Vancocin (Oral/Rectal Use)) 250 mg NG Q8 [facility] PRN Reason: Protocol Last Admin: 10/25/17 00:35 Dose: 250 mg - Labs Labs: 10/25/17 04:20 10/25/17 04:20 PT 12.3 Seconds (9.8-13.1) 10/20/17 19:46 INR 1.1 (0.9-1.2) 10/20/17 19:46 APTT 33.2 Seconds (25.6-37.1) D 10/21/17 04:18 - Constitutional Appears: Non-toxic, No Acute Distress - Eye Exam Eye Exam: absent: Scleral icterus - ENT Exam ENT Exam: Mucous Membranes Moist - Respiratory Exam Respiratory Exam: Clear to Ausculation Bilateral. absent: Respiratory Distress - Cardiovascular Exam Cardiovascular Exam: Tachycardia, +S1, +S2 - GI/Abdominal Exam GI & Abdominal Exam: Soft. absent: Distended, Tenderness - Exam Exam: absent: Bladder Distension - Extremities Exam Additional comments: mild leg edema, edematous UE b/l - Neurological Exam Additional comments: sedated, arousable to verbal stimuli; - Psychiatric Exam Psychiatric exam: absent: Agitated - Skin Skin Exam: Warm. absent: Cyanosis Assessment and Plan (1) Acute renal failure Assessment & Plan: NINA on CKD IV; now non-oliguric renal failure; may be close to renal recovery to baseline; stable electrolyte (mild hypokalemia noted) and volume status/FIO2 requirement; -will hold HD and re-assess over next 1-2 days; Status: Acute (2) Metabolic acidosis Assessment & Plan: Much improved; bicarb drip stopped; Status: Acute (3) Hyperkalemia Assessment & Plan: Now mild hypokalemia; should supplement cautiously given renal failure; Status: Resolved (4) Septic shock Assessment & Plan: On multiple antibiotics; should repeat vanco level before re-dosing; still needs urology input for possible infected ureteral stents; Status: Acute (5) Anemia Status: Acute
--- NOTE | 2017-10-25 07:02 | RAD ---
HISTORY: re-evaluate. COMPARISON: Portable chest 10/24/2017. FINDINGS: Endotracheal tube is again appreciated with tip likely less than 1 cm above the justo. Retraction by a few cm is advised following confirmation radiography. Right central venous line unchanged in position. Nasogastric tube reiterated. LUNGS: Retrocardiac atelectasis is favored over infiltrate obscuring the left hemidiaphragm. No right-sided infiltrate. PLEURA: A minimal left pleural effusion again evident with none on the right. No pneumothorax bilaterally. Lower face obscures right apex somewhat. CARDIOVASCULAR: Normal. OSSEOUS STRUCTURES: No significant abnormalities. VISUALIZED UPPER ABDOMEN: Normal. OTHER FINDINGS: None. IMPRESSION: Stable chest radiography with limited left basilar atelectasis favored over infiltrate noted. Trace of pleural effusion. ET tube remains less than 1 cm above the justo. Retraction of 2 cm is advised follow-up by confirmation radiography.
--- NOTE | 2017-10-25 08:39 | CP.PCM.PN ---
<Katelyn Pierce - Last Filed: 10/25/17 16:50> Subjective - Date & Time of Evaluation Date of Evaluation: 10/25/17 Time of Evaluation: 07:00 - Subjective Subjective: ICU day 6 Pt seen and examined at bedside this morning. Sedated on Versed at 2 mg/hr, Intubated, remains on low dose vasopressor. moving b/l lower ext. Responsive only to painful stimuli. Objective - Vital Signs/Intake and Output Vital Signs (last 24 hours): Temp Pulse Resp BP Pulse Ox 99.4 F 106 H 13 99/54 L 99 10/25/17 08:00 10/25/17 08:00 10/25/17 08:00 10/25/17 08:00 10/25/17 08:00 Intake and Output: 10/25/17 10/25/17 06:59 18:59 Intake Total 960 Output Total 750 Balance 210 - Medications Medications: Current Medications Aspirin (Ecotrin) 81 mg PO DAILY [facility] Last Admin: 10/21/17 08:49 Dose: 81 mg Atorvastatin Calcium (Lipitor) 40 mg PO QPM [facility] Last Admin: 10/21/17 17:21 Dose: Not Given Dextrose (Dextrose 50% Inj) 0 ml IV STAT PRN; Protocol PRN Reason: Hypoglycemia Protocol Dextrose (Glutose 15) 0 gm PO ONCE PRN; Protocol PRN Reason: Hypoglycemia Protocol Dextrose (Dextrose 50% Inj) 0 ml IV STAT PRN; Protocol PRN Reason: Hypoglycemia Protocol Dextrose (Glutose 15) 0 gm PO ONCE PRN; Protocol PRN Reason: Hypoglycemia Protocol Epoetin Axel (Procrit) 10,000 unit SC MWF [facility] Last Admin: 10/23/17 18:49 Dose: 10,000 unit Glucagon (Glucagen Diagnostic Kit) 0 mg IM STAT PRN; Protocol PRN Reason: Hypoglycemia Protocol Glucagon (Glucagen Diagnostic Kit) 0 mg IM STAT PRN; Protocol PRN Reason: Hypoglycemia Protocol Heparin Sodium (Porcine) (Heparin) 5,000 units SC Q8 [facility] PRN Reason: Protocol Last Admin: 10/25/17 02:00 Dose: 5,000 units Azithromycin 500 mg/ Sodium (Chloride) 250 mls @ 250 mls/hr IVPB DAILY [facility] PRN Reason: Protocol Last Admin: 10/24/17 08:54 Dose: 250 mls/hr Metronidazole (Flagyl 500mg/100ml Ns) 100 mls @ 100 mls/hr IVPB Q8 [facility] PRN Reason: Protocol Last Admin: 10/25/17 00:32 Dose: 100 mls/hr Meropenem 500 mg/ Sodium (Chloride) 100 mls @ 100 mls/hr IVPB Q8 [facility] PRN Reason: Protocol Last Admin: 10/25/17 00:32 Dose: 100 mls/hr Norepinephrine Bitartrate 4 mg (/ Dextrose) 254 mls @ 20.95 mls/hr IV .Q12H8M [facility]; 5.5 MCG/MIN PRN Reason: Protocol Last Titration: 10/23/17 21:25 Dose: Infused Midazolam HCl 50 mg/ Dextrose 100 mls @ 4 mls/hr IV .Q24H ONE; 2 MG/HR PRN Reason: Protocol Stop: 10/25/17 14:44 Last Admin: 10/24/17 16:12 Dose: 2 mg/hr, 4 mls/hr Insulin Human Regular (Humulin R) 0 units SC Q4 [facility] PRN Reason: Protocol Last Admin: 10/25/17 04:18 Dose: Not Given Nystatin (Nystop Topical Powder) 1 applic TOP TID [facility] Last Admin: 10/24/17 16:17 Dose: 1 applic Pantoprazole Sodium (Protonix Inj) 40 mg IVP DAILY [facility] Last Admin: 10/24/17 08:52 Dose: 40 mg Silver Sulfadiazine (Silvadene 1% 20 Gm) 1 ea TOP DAILY [facility] Last Admin: 10/24/17 08:53 Dose: 1 each Vancomycin HCl (Vancocin (Oral/Rectal Use)) 250 mg NG Q8 [facility] PRN Reason: Protocol Last Admin: 10/25/17 00:35 Dose: 250 mg - Labs Labs: 10/25/17 04:20 10/25/17 04:20 PT 12.3 Seconds (9.8-13.1) 10/20/17 19:46 INR 1.1 (0.9-1.2) 10/20/17 19:46 APTT 33.2 Seconds (25.6-37.1) D 10/21/17 04:18 - Constitutional Appears: Other (sedated, intubated on mechanical ventilation) - Eye Exam Eye Exam: PERRL - Respiratory Exam Respiratory Exam: Clear to Ausculation Bilateral - Cardiovascular Exam Cardiovascular Exam: Tachycardia, REGULAR RHYTHM, +S1, +S2 - GI/Abdominal Exam GI & Abdominal Exam: Soft, Normal Bowel Sounds. absent: Distended - Skin Additional comments: Sacrum: Purple localized DTI, non blanchable. R foot: localized erythema (DTI) in plantar aspect of great toe. L foot: Stage 2 pressure ulcer noted on medial aspect of heel. Assessment and Plan - Assessment and Plan (Free Text) Assessment: 77yo F with PMHx uncontrolled IDDM2, HTN, CKD4, Hydronephrosis s/p bilateral stenting, chronic kidney disease (Dialysis) admitted with septic shock. Plan: c/w IV abx, ventilator. Wean sedation, on pressors. Prognosis guarded. Currently DNR 1- Septic shock, improved - secondary to urosepsis likely due to infected ureteral stents - mechanical ventilation: sedated with Versed drip, considering weaning - Blood culture: negative - f/u urine culture: growths yeast species - MRSA no detected. - Airplane Navigator on consult, Recs appreciated: - On 1 Vasopressor due to improvement on BP -ID on board: broad spectrum antibiotics: Meropenem, Azithromycin, Metronidazole - d/c IV Vancomycin, start parental Vanco. - Urology Dr Valentine consult placed, recs appreciated. 2- Acute Kidney Injury on CKD, improving -BUN/Cr 52/4.7 -Nephro on board Dr. Garcia. Recs are appreciated: -HD on 10/23/2017 -will hold off on further HD for now due to tachycardia -need urology assessment in light of possible infected ureteral stents - K 3.2 3- HAGMA: high anion gap metabolic acidosis, compensating -s/p bicarbonate drip -s/p HD 4- Anemia -H/H: 8.5/27.2 -FOBT + -T&S 5- H/O Hydronephrosis s/p bilateral stenting - likely infected and possible cause of sepsis - Urology on board Dr. Valentine. waiting recs. - pus noted in urine 6- Diverticulitis, +C diff. -c/w flagyl 7- Hypertension -Hold home BP meds for now 2/2 shock 8- Diabetes Mellitus type 2 -hold home PO meds -accucheck -insulin coverage by protocol -hypoglycemic protocol 9- Wound assessment - Ulcer present on Sacrum: Purple localized DTI, non blanchable, agree with ED doctor ulcer POA. - R foot: localized erythema (DTI) in plantar aspect of great toe. - L foot: Stage 2 pressure ulcer noted on medial aspect of heel. - Wound care on board 10- DVT prophylaxis -Heparin SC 11 - Code Status: DNR: Documentation reviewed: Status was discussed with family via Dr. Garcia and made aware by Dr. Mendes. Palliative care consulted. <Jose Juan Boswell - Last Filed: 10/30/17 06:57> Objective - Vital Signs/Intake and Output Vital Signs (last 24 hours): Temp Pulse Resp BP Pulse Ox 98.9 F 90 15 131/78 100 10/30/17 04:00 10/30/17 06:00 10/30/17 06:00 10/30/17 06:00 10/30/17 06:00 Intake and Output: 10/29/17 10/30/17 18:59 06:59 Intake Total 1990 1000 Output Total 975 1300 Balance 1015 -300 - Medications Medications: Current Medications Aspirin (Ecotrin) 81 mg PO DAILY [facility] Last Admin: 10/21/17 08:49 Dose: 81 mg Atorvastatin Calcium (Lipitor) 40 mg PO QPM [facility] Last Admin: 10/21/17 17:21 Dose: Not Given Dextrose (Dextrose 50% Inj) 0 ml IV STAT PRN; Protocol PRN Reason: Hypoglycemia Protocol Dextrose (Glutose 15) 0 gm PO ONCE PRN; Protocol PRN Reason: Hypoglycemia Protocol Dextrose (Dextrose 50% Inj) 0 ml IV STAT PRN; Protocol PRN Reason: Hypoglycemia Protocol Dextrose (Glutose 15) 0 gm PO ONCE PRN; Protocol PRN Reason: Hypoglycemia Protocol Epoetin Axel (Procrit) 10,000 unit SC MWF [facility] Last Admin: 10/27/17 09:52 Dose: 10,000 unit Ergocalciferol (Drisdol 50,000 Intl Units Cap) 1 cap PO Q7D [facility] Last Admin: 10/28/17 14:06 Dose: 1 cap Glucagon (Glucagen Diagnostic Kit) 0 mg IM STAT PRN; Protocol PRN Reason: Hypoglycemia Protocol Glucagon (Glucagen Diagnostic Kit) 0 mg IM STAT PRN; Protocol PRN Reason: Hypoglycemia Protocol Heparin Sodium (Porcine) (Heparin) 5,000 units SC Q8 [facility] PRN Reason: Protocol Last Admin: 10/30/17 00:07 Dose: 5,000 units Meropenem 500 mg/ Sodium (Chloride) 100 mls @ 100 mls/hr IVPB Q8 [facility] PRN Reason: Protocol Last Admin: 10/30/17 00:06 Dose: 100 mls/hr Fluconazole (Diflucan Iv 100 Mg/50 Ml Ns) 50 mls @ 50 mls/hr IVPB DAILY [facility] PRN Reason: Protocol Last Admin: 10/29/17 09:37 Dose: 50 mls/hr Iron Sucrose 100 mg/ Sodium (Chloride) 105 mls @ 105 mls/hr IVPB DAILY [facility] Stop: 11/06/17 09:59 Last Admin: 10/29/17 10:30 Dose: 105 mls/hr Insulin Human Regular (Humulin R) 0 units SC ACHS [facility] PRN Reason: Protocol Last Admin: 10/30/17 06:30 Dose: 1 u Nystatin (Nystop Topical Powder) 1 applic TOP TID [facility] Last Admin: 10/29/17 16:04 Dose: 1 applic Pantoprazole Sodium (Protonix Inj) 40 mg IVP DAILY [facility] Last Admin: 10/29/17 08:36 Dose: 40 mg Silver Sulfadiazine (Silvadene 1% 50 Gm) 1 applic TOP DAILY [facility] Vancomycin HCl (Vancocin (Oral/Rectal Use)) 250 mg PO Q8 [facility] PRN Reason: Protocol Last Admin: 10/30/17 00:06 Dose: 250 mg - Labs Labs: 10/29/17 14:52 10/30/17 04:50 PT 12.3 Seconds (9.8-13.1) 10/20/17 19:46 INR 1.1 (0.9-1.2) 10/20/17 19:46 APTT 33.2 Seconds (25.6-37.1) D 10/21/17 04:18 Attending/Attestation - Attestation I have personally seen and examined this patient.: Yes I have fully participated in the care of the patient.: Yes I have reviewed all pertinent clinical information, including history, physical exam and plan: Yes
[2017-10-25] MEDS: Silver Sulfadiazine 1% Cream (20 gm) TOP SCH (08:45)
[2017-10-25] MEDS: Azithromycin 500 MG in Sodium Chloride 0.9% 250 ML IVPB SCH (08:47)
[2017-10-25] MEDS ORDERED: Potassium Chloride 20 mEq 100 ML IVPB ONE (10:30)
--- NOTE | 2017-10-25 11:52 | CP.CCUPN ---
CCU Subjective - Physician Review Subjective (Free Text): Sedated on Versed at 2 mg/hr, remains on low dose Levophed at 2.5mcg, breathing 17 on AC 12, 450 ml TV, 40% and PEEP 5, SPO2 100%, Ve= 8.2, PPP 22. She is off alkalinized fluids. Other Vitals and I/Os reviewed. Last 24H I/Os = 3618/1350 ml. Adams output last 12H = 1300ml. T max was 100.1F overnight, highest over the past 5 days. + Black BMs noted. ROS: No other pertinent negs or positives on + system review unobtainable- intubated and sedated. PMSFH: All other Nursing and physician documentation reviewed to date; no new pertinent info noted relevant to current medical problems. EXAM- HEENT: no icterus, no gaze preference, pupils equal and reactive, no icterus NECK: No JVD, supple, carotids equal upstroke bilat/no bruits CHEST: decreased BS bases, no wheezes audible HEART: regular distant, S1S2, no rubs. ABD: soft, mild distention, no tympany, no palp tenderness, BS hypoactive. EXT: trace edema bilat. No peripheral/ digital cyanosis, no calf tenderness or palpable cords, distal pulses intact and symmetrical. NEURO: decreased tone in all extremties SKIN: no rashes, warm and dry. LABS: ABG 7.49/38/181 WBC= 15.4 HGB= 8.5 PLTs= 175K Na= 139 K= 3.2 CL= 102 HCO3= 25 BUN/Cr= 52/4.7 BS= 118 IMPRESSION / MAJOR PROBLEMS NOW: 1. Acute Resp Insuff on MV support due to Severe Sepsis with Shock and metabolic encephalopathy with Uremia. 2. Urosepsis with Septic Shock 3. NINA / ATN on CKD IV 4. Chronic Disease Anemia 5. Uncontrolled DM II with possible DKA on admission PLAN: 1. Stop sedation entirely and re-assess neuromental status. If abnormal or not awakening in an appropriate manner, consider repeat CT Brain. 2. Levophed may be titrated off as Versed is stopped. 3. Serum Bicarb has normalized. Supplement K, not repleted yesterday, check mag and phos levels. 4. Could lower fiO2 further to 35- 30% as tolerated, now day # 6 on MV support. Try SBTs when off vasopressors and K has been repleted. 5. Empiric abx coverage ongoing as per ID: Azithro / enteral Vanco/ Sylvia/ Flagyl IV 6. Adams in place now; ureteral stents remain. No organisms isolated. 7. See orders. CCU Objective - Vital Signs / Intake & Output Vital Signs (Last 4 hours): Vital Signs Temp Pulse Resp BP Pulse Ox 10/25/17 09:00 125 H 20 103/66 100 10/25/17 08:00 99.4 F 106 H 13 99/54 L 99 Intake and Output (Last 8hrs): Intake & Output 10/24/17 10/25/17 10/25/17 22:59 06:59 14:59 Intake Total 1832 700 525 Output Total 800 550 Balance 1032 150 525 Intake: IV 862 60 75 Intake, Piggyback 200 200 450 Tube Feeding 770 440 Output: Urine 800 500 Urethral (Adams) 800 500 Stool 50 Other: # Bowel Movements 1 - Physical Exam Head: Positive for: Atraumatic, Normocephalic. Negative for: Tenderness, Contusion Pupils: Positive for: PERRL. Negative for: Sluggish, Non-Reactive, Pinpoint Extroacular Muscles: Positive for: EOMI. Negative for: Gaze Palsy, Entrapment Conjunctiva: Positive for: Normal. Negative for: Injected, Icteric Ears: Positive for: Normal Mouth: Positive for: Moist Mucous Membranes Pharnyx: Positive for: Normal Nose (Internal): Positive for: Normal Inspection, No Active Bleeding Neck: Positive for: Normal Range of Motion, Trachea Midline. Negative for: Meningeal Signs, MIDLINE TENDERNESS, Paraspinal Tenderness, JVD, Lymphadenopathy , Bruit, Other Respiratory/Chest: Positive for: Decreased Breath Sounds, Rales, Rhonchi. Negative for: Respiratory Distress, Accessory Muscle Use, Wheezes, Tachypneic Cardiovascular: Positive for: Regular Rate and Rhythm, Normal S1, S2, Peripheal Pulses Present. Negative for: Murmurs, Irregular Rhythm, Tachycardic, Bradycardic Abdomen: Positive for: Distention, Normal Bowel Sounds. Negative for: Tenderness Psychiatric: Positive for: Other (Patient sedated and orally intubated) - Medications Active Medications: Active Medications Generic Name Dose Route Start Last Admin Trade Name Freq PRN Reason Stop Dose Admin Aspirin 81 mg 10/21/17 09:00 10/21/17 08:49 Ecotrin PO 81 mg DAILY [facility] Administration Atorvastatin Calcium 40 mg 10/21/17 18:00 10/21/17 17:21 Lipitor PO Not Given QPM [facility] Dextrose 0 ml 10/21/17 00:29 Dextrose 50% Inj IV STAT PRN Hypoglycemia Protocol Protocol Dextrose 0 gm 10/21/17 00:29 Glutose 15 PO ONCE PRN Hypoglycemia Protocol Protocol Dextrose 0 ml 10/21/17 11:45 Dextrose 50% Inj IV STAT PRN Hypoglycemia Protocol Protocol Dextrose 0 gm 10/21/17 11:45 Glutose 15 PO ONCE PRN Hypoglycemia Protocol Protocol Epoetin Axel 10,000 unit 10/23/17 09:00 10/23/17 18:49 Procrit SC 10,000 unit MWF [facility] Administration Glucagon 0 mg 10/21/17 00:29 Glucagen Diagnostic Kit IM STAT PRN Hypoglycemia Protocol Protocol Glucagon 0 mg 10/21/17 11:45 Glucagen Diagnostic Kit IM STAT PRN Hypoglycemia Protocol Protocol Heparin Sodium (Porcine) 5,000 units 10/21/17 09:00 10/25/17 08:41 Heparin SC 5,000 units Q8 [facility] Administration Protocol Azithromycin 500 mg/ Sodium 250 mls @ 250 mls/hr 10/21/17 09:00 10/25/17 08: 47 Chloride IVPB 250 mls/hr DAILY [facility] Administration Protocol Metronidazole 100 mls @ 100 mls/hr 10/21/17 09:00 10/25/17 08:40 Flagyl 500mg/100ml Ns IVPB 100 mls/hr Q8 [facility] Administration Protocol Meropenem 500 mg/ Sodium 100 mls @ 100 mls/hr 10/21/17 10:19 10/25/17 08:42 Chloride IVPB 100 mls/hr Q8 [facility] Administration Protocol Norepinephrine Bitartrate 4 mg 254 mls @ 20.95 mls/hr 10/23/17 06:45 21:25 / Dextrose IV Infused .Q12H8M [facility] Titration Protocol 5.5 MCG/MIN Midazolam HCl 50 mg/ Dextrose 100 mls @ 4 mls/hr 10/24/17 14:45 10/25/17 09: 24 IV 10/25/17 14:44 0 mg/hr .Q24H ONE 0 mls/hr Protocol Titration 2 MG/HR Potassium Chloride 100 mls @ 50 mls/hr 10/25/17 10:30 Potassium Chloride 20 Meq/100 Ml IVPB 10/25/17 12:29 ONCE ONE Insulin Human Regular 0 units 10/23/17 17:00 10/25/17 08:41 Humulin R SC 1 unit Q4 [facility] Administration Protocol Nystatin 1 applic 10/23/17 17:00 10/25/17 08:44 Nystop Topical Powder TOP 1 applic TID [facility] Administration Pantoprazole Sodium 40 mg 10/22/17 09:00 10/25/17 08:45 Protonix Inj IVP 40 mg DAILY [facility] Administration Silver Sulfadiazine 1 ea 10/23/17 18:30 10/25/17 08:45 Silvadene 1% 20 Gm TOP 1 each DAILY [facility] Administration Vancomycin HCl 250 mg 10/25/17 01:00 10/25/17 08:46 Vancocin (Oral/Rectal Use) NG 250 mg Q8 [facility] Administration Protocol - Patient Studies Lab Studies: Microbiology Studies 10/20/17 20:00 Blood Culture - Preliminary Blood NO GROWTH AFTER 4 DAYS 10/20/17 19:46 Blood Culture - Preliminary Blood NO GROWTH AFTER 4 DAYS 10/21/17 14:48 Blood Culture - Preliminary Blood-Venous NO GROWTH AFTER 3 DAYS 10/21/17 15:40 Blood Culture - Preliminary Blood-Venous NO GROWTH AFTER 3 DAYS Lab Studies 10/25/17 10/25/17 10/25/17 Range/Units 11:14 07:57 04:44 WBC (4.8-10.8) K/uL RBC (3.80-5.20) Mil/uL Hgb (12.0-16.0) g/dL Hct (34.0-47.0) % MCV (81.0-99.0) fl MCH (27.0-31.0) pg MCHC (33.0-37.0) g/dL RDW (11.5-14.5) % Plt Count (130-400) K/uL MPV (7.2-11.7) fl Neut % (Auto) (50.0-75.0) % Lymph % (Auto) (20.0-40.0) % Meigs % (Auto) (0.0-10.0) % Eos % (Auto) (0.0-4.0) % Baso % (Auto) (0.0-2.0) % Neut # (Auto) (1.8-7.0) K/uL Lymph # (Auto) (1.0-4.3) K/uL Meigs # (Auto) (0.0-0.8) K/uL Eos # (Auto) (0.0-0.7) K/uL Baso # (Auto) (0.0-0.2) K/uL pCO2 38 (35-45) mm/Hg pO2 181 H (80-100) mm/Hg HCO3 29.1 H (21-28) mmol/L ABG pH 7.49 H (7.35-7.45) ABG Total CO2 30.2 H (22-28) mmol/L ABG O2 Saturation 99.3 H (95-98) % ABG O2 Content 12.3 L (15-23) ML/dL ABG Base Excess 5.3 H (-2.0-3.0) mmol/L ABG Hemoglobin 8.7 L (11.7-17.4) g/dL ABG Carboxyhemoglobin 0.6 (0.5-1.5) % POC ABG HHb (Measured) 0.7 (0.0-5.0) % ABG Methemoglobin 1.4 (0.0-3.0) % ABG O2 Capacity 12.4 L (16-24) mL/dL Arnoldo Test Yes A-a O2 Difference 57.0 mm/Hg Hgb O2 Saturation 97.2 (95.0-98.0) % Vent Mode Ac Mechanical Rate 12 FiO2 40.0 % Tidal Volume 450 PEEP 5 Sodium (132-148) mmol/l Potassium (3.6-5.0) MMOL/L Chloride (98-107) mmol/L Carbon Dioxide (22-30) mmol/L Anion Gap (10-20) BUN (7-17) mg/dl Creatinine (0.7-1.2) mg/dl Est GFR ( Amer) Est GFR (Non-Af Amer) POC Glucose (mg/dL) 190 H 186 H (65-110) mg/dL Random Glucose (65-105) mg/dL Calcium (8.4-10.2) mg/dL Total Bilirubin (0.2-1.3) mg/dl AST (14-36) U/L ALT (9-52) U/L Alkaline Phosphatase (38-126) U/L Total Protein (6.3-8.2) G/DL Albumin (3.5-5.0) g/dL Globulin (2.2-3.9) gm/dL Albumin/Globulin Ratio (1.0-2.1) C. difficile Tox B Gene (Not Detected) 10/25/17 10/25/17 10/25/17 Range/Units 04:20 04:20 04:13 WBC 15.4 H (4.8-10.8) K/uL RBC 3.22 L (3.80-5.20) Mil/uL Hgb 8.5 L (12.0-16.0) g/dL Hct 27.2 L (34.0-47.0) % MCV 84.7 (81.0-99.0) fl MCH 26.6 L (27.0-31.0) pg MCHC 31.4 L (33.0-37.0) g/dL RDW 15.8 H (11.5-14.5) % Plt Count 175 (130-400) K/uL MPV 7.5 (7.2-11.7) fl Neut % (Auto) 77.0 H (50.0-75.0) % Lymph % (Auto) 14.6 L (20.0-40.0) % Meigs % (Auto) 7.9 (0.0-10.0) % Eos % (Auto) 0.4 (0.0-4.0) % Baso % (Auto) 0.1 (0.0-2.0) % Neut # (Auto) 11.8 H (1.8-7.0) K/uL Lymph # (Auto) 2.2 (1.0-4.3) K/uL Meigs # (Auto) 1.2 H (0.0-0.8) K/uL Eos # (Auto) 0.1 (0.0-0.7) K/uL Baso # (Auto) 0.0 (0.0-0.2) K/uL pCO2 (35-45) mm/Hg pO2 (80-100) mm/Hg HCO3 (21-28) mmol/L ABG pH (7.35-7.45) ABG Total CO2 (22-28) mmol/L ABG O2 Saturation (95-98) % ABG O2 Content (15-23) ML/dL ABG Base Excess (-2.0-3.0) mmol/L ABG Hemoglobin (11.7-17.4) g/dL ABG Carboxyhemoglobin (0.5-1.5) % POC ABG HHb (Measured) (0.0-5.0) % ABG Methemoglobin (0.0-3.0) % ABG O2 Capacity (16-24) mL/dL Arnoldo Test A-a O2 Difference mm/Hg Hgb O2 Saturation (95.0-98.0) % Vent Mode Mechanical Rate FiO2 % Tidal Volume PEEP Sodium 139 (132-148) mmol/l Potassium 3.2 L (3.6-5.0) MMOL/L Chloride 102 (98-107) mmol/L Carbon Dioxide 25 (22-30) mmol/L Anion Gap 15 (10-20) BUN 52 H (7-17) mg/dl Creatinine 4.7 H (0.7-1.2) mg/dl Est GFR ( Amer) 11 Est GFR (Non-Af Amer) 9 POC Glucose (mg/dL) 146 H (65-110) mg/dL Random Glucose 118 H (65-105) mg/dL Calcium 7.5 L (8.4-10.2) mg/dL Total Bilirubin 0.3 (0.2-1.3) mg/dl AST 22 (14-36) U/L ALT 34 (9-52) U/L Alkaline Phosphatase 93 (38-126) U/L Total Protein 4.6 L (6.3-8.2) G/DL Albumin 2.1 L (3.5-5.0) g/dL Globulin 2.5 (2.2-3.9) gm/dL Albumin/Globulin Ratio 0.9 L (1.0-2.1) C. difficile Tox B Gene (Not Detected) 10/25/17 10/24/17 10/24/17 Range/Units 00:25 20:49 16:34 WBC (4.8-10.8) K/uL RBC (3.80-5.20) Mil/uL Hgb (12.0-16.0) g/dL Hct (34.0-47.0) % MCV (81.0-99.0) fl MCH (27.0-31.0) pg MCHC (33.0-37.0) g/dL RDW (11.5-14.5) % Plt Count (130-400) K/uL MPV (7.2-11.7) fl Neut % (Auto) (50.0-75.0) % Lymph % (Auto) (20.0-40.0) % Meigs % (Auto) (0.0-10.0) % Eos % (Auto) (0.0-4.0) % Baso % (Auto) (0.0-2.0) % Neut # (Auto) (1.8-7.0) K/uL Lymph # (Auto) (1.0-4.3) K/uL Meigs # (Auto) (0.0-0.8) K/uL Eos # (Auto) (0.0-0.7) K/uL Baso # (Auto) (0.0-0.2) K/uL pCO2 (35-45) mm/Hg pO2 (80-100) mm/Hg HCO3 (21-28) mmol/L ABG pH (7.35-7.45) ABG Total CO2 (22-28) mmol/L ABG O2 Saturation (95-98) % ABG O2 Content (15-23) ML/dL ABG Base Excess (-2.0-3.0) mmol/L ABG Hemoglobin (11.7-17.4) g/dL ABG Carboxyhemoglobin (0.5-1.5) % POC ABG HHb (Measured) (0.0-5.0) % ABG Methemoglobin (0.0-3.0) % ABG O2 Capacity (16-24) mL/dL Arnoldo Test A-a O2 Difference mm/Hg Hgb O2 Saturation (95.0-98.0) % Vent Mode Mechanical Rate FiO2 % Tidal Volume PEEP Sodium (132-148) mmol/l Potassium (3.6-5.0) MMOL/L Chloride (98-107) mmol/L Carbon Dioxide (22-30) mmol/L Anion Gap (10-20) BUN (7-17) mg/dl Creatinine (0.7-1.2) mg/dl Est GFR ( Amer) Est GFR (Non-Af Amer) POC Glucose (mg/dL) 249 H 243 H 253 H (65-110) mg/dL Random Glucose (65-105) mg/dL Calcium (8.4-10.2) mg/dL Total Bilirubin (0.2-1.3) mg/dl AST (14-36) U/L ALT (9-52) U/L Alkaline Phosphatase (38-126) U/L Total Protein (6.3-8.2) G/DL Albumin (3.5-5.0) g/dL Globulin (2.2-3.9) gm/dL Albumin/Globulin Ratio (1.0-2.1) C. difficile Tox B Gene (Not Detected) 10/21/17 Range/Units 14:00 WBC (4.8-10.8) K/uL RBC (3.80-5.20) Mil/uL Hgb (12.0-16.0) g/dL Hct (34.0-47.0) % MCV (81.0-99.0) fl MCH (27.0-31.0) pg MCHC (33.0-37.0) g/dL RDW (11.5-14.5) % Plt Count (130-400) K/uL MPV (7.2-11.7) fl Neut % (Auto) (50.0-75.0) % Lymph % (Auto) (20.0-40.0) % Meigs % (Auto) (0.0-10.0) % Eos % (Auto) (0.0-4.0) % Baso % (Auto) (0.0-2.0) % Neut # (Auto) (1.8-7.0) K/uL Lymph # (Auto) (1.0-4.3) K/uL Meigs # (Auto) (0.0-0.8) K/uL Eos # (Auto) (0.0-0.7) K/uL Baso # (Auto) (0.0-0.2) K/uL pCO2 (35-45) mm/Hg pO2 (80-100) mm/Hg HCO3 (21-28) mmol/L ABG pH (7.35-7.45) ABG Total CO2 (22-28) mmol/L ABG O2 Saturation (95-98) % ABG O2 Content (15-23) ML/dL ABG Base Excess (-2.0-3.0) mmol/L ABG Hemoglobin (11.7-17.4) g/dL ABG Carboxyhemoglobin (0.5-1.5) % POC ABG HHb (Measured) (0.0-5.0) % ABG Methemoglobin (0.0-3.0) % ABG O2 Capacity (16-24) mL/dL Arnoldo Test A-a O2 Difference mm/Hg Hgb O2 Saturation (95.0-98.0) % Vent Mode Mechanical Rate FiO2 % Tidal Volume PEEP Sodium (132-148) mmol/l Potassium (3.6-5.0) MMOL/L Chloride (98-107) mmol/L Carbon Dioxide (22-30) mmol/L Anion Gap (10-20) BUN (7-17) mg/dl Creatinine (0.7-1.2) mg/dl Est GFR ( Amer) Est GFR (Non-Af Amer) POC Glucose (mg/dL) (65-110) mg/dL Random Glucose (65-105) mg/dL Calcium (8.4-10.2) mg/dL Total Bilirubin (0.2-1.3) mg/dl AST (14-36) U/L ALT (9-52) U/L Alkaline Phosphatase (38-126) U/L Total Protein (6.3-8.2) G/DL Albumin (3.5-5.0) g/dL Globulin (2.2-3.9) gm/dL Albumin/Globulin Ratio (1.0-2.1) C. difficile Tox B Gene Detected H (Not Detected) Laboratory Results - last 24 hr 10/21/17 10/24/17 10/24/17 14:00 16:34 20:49 WBC RBC Hgb Hct MCV MCH MCHC RDW Plt Count MPV Neut % (Auto) Lymph % (Auto) Meigs % (Auto) Eos % (Auto) Baso % (Auto) Neut # (Auto) Lymph # (Auto) Meigs # (Auto) Eos # (Auto) Baso # (Auto) pCO2 pO2 HCO3 ABG pH ABG Total CO2 ABG O2 Saturation ABG O2 Content ABG Base Excess ABG Hemoglobin ABG Carboxyhemoglobin POC ABG HHb (Measured) ABG Methemoglobin ABG O2 Capacity Arnoldo Test A-a O2 Difference Hgb O2 Saturation Vent Mode Mechanical Rate FiO2 Tidal Volume PEEP Sodium Potassium Chloride Carbon Dioxide Anion Gap BUN Creatinine Est GFR ( Amer) Est GFR (Non-Af Amer) POC Glucose (mg/dL) 253 H 243 H Random Glucose Calcium Total Bilirubin AST ALT Alkaline Phosphatase Total Protein Albumin Globulin Albumin/Globulin Ratio C. difficile Tox B Gene Detected H 10/25/17 10/25/17 10/25/17 00:25 04:13 04:20 WBC 15.4 H RBC 3.22 L Hgb 8.5 L Hct 27.2 L MCV 84.7 MCH 26.6 L MCHC 31.4 L RDW 15.8 H Plt Count 175 MPV 7.5 Neut % (Auto) 77.0 H Lymph % (Auto) 14.6 L Meigs % (Auto) 7.9 Eos % (Auto) 0.4 Baso % (Auto) 0.1 Neut # (Auto) 11.8 H Lymph # (Auto) 2.2 Meigs # (Auto) 1.2 H Eos # (Auto) 0.1 Baso # (Auto) 0.0 pCO2 pO2 HCO3 ABG pH ABG Total CO2 ABG O2 Saturation ABG O2 Content ABG Base Excess ABG Hemoglobin ABG Carboxyhemoglobin POC ABG HHb (Measured) ABG Methemoglobin ABG O2 Capacity Arnoldo Test A-a O2 Difference Hgb O2 Saturation Vent Mode Mechanical Rate FiO2 Tidal Volume PEEP Sodium Potassium Chloride Carbon Dioxide Anion Gap BUN Creatinine Est GFR ( Amer) Est GFR (Non-Af Amer) POC Glucose (mg/dL) 249 H 146 H Random Glucose Calcium Total Bilirubin AST ALT Alkaline Phosphatase Total Protein Albumin Globulin Albumin/Globulin Ratio C. difficile Tox B Gene 10/25/17 10/25/17 10/25/17 04:20 04:44 07:57 WBC RBC Hgb Hct MCV MCH MCHC RDW Plt Count MPV Neut % (Auto) Lymph % (Auto) Meigs % (Auto) Eos % (Auto) Baso % (Auto) Neut # (Auto) Lymph # (Auto) Meigs # (Auto) Eos # (Auto) Baso # (Auto) pCO2 38 pO2 181 H HCO3 29.1 H ABG pH 7.49 H ABG Total CO2 30.2 H ABG O2 Saturation 99.3 H ABG O2 Content 12.3 L ABG Base Excess 5.3 H ABG Hemoglobin 8.7 L ABG Carboxyhemoglobin 0.6 POC ABG HHb (Measured) 0.7 ABG Methemoglobin 1.4 ABG O2 Capacity 12.4 L Arnolod Test Yes A-a O2 Difference 57.0 Hgb O2 Saturation 97.2 Vent Mode Ac Mechanical Rate 12 FiO2 40.0 Tidal Volume 450 PEEP 5 Sodium 139 Potassium 3.2 L Chloride 102 Carbon Dioxide 25 Anion Gap 15 BUN 52 H Creatinine 4.7 H Est GFR ( Amer) 11 Est GFR (Non-Af Amer) 9 POC Glucose (mg/dL) 186 H Random Glucose 118 H Calcium 7.5 L Total Bilirubin 0.3 AST 22 ALT 34 Alkaline Phosphatase 93 Total Protein 4.6 L Albumin 2.1 L Globulin 2.5 Albumin/Globulin Ratio 0.9 L C. difficile Tox B Gene 10/25/17 11:14 WBC RBC Hgb Hct MCV MCH MCHC RDW Plt Count MPV Neut % (Auto) Lymph % (Auto) Meigs % (Auto) Eos % (Auto) Baso % (Auto) Neut # (Auto) Lymph # (Auto) Meigs # (Auto) Eos # (Auto) Baso # (Auto) pCO2 pO2 HCO3 ABG pH ABG Total CO2 ABG O2 Saturation ABG O2 Content ABG Base Excess ABG Hemoglobin ABG Carboxyhemoglobin POC ABG HHb (Measured) ABG Methemoglobin ABG O2 Capacity Arnoldo Test A-a O2 Difference Hgb O2 Saturation Vent Mode Mechanical Rate FiO2 Tidal Volume PEEP Sodium Potassium Chloride Carbon Dioxide Anion Gap BUN Creatinine Est GFR ( Amer) Est GFR (Non-Af Amer) POC Glucose (mg/dL) 190 H Random Glucose Calcium Total Bilirubin AST ALT Alkaline Phosphatase Total Protein Albumin Globulin Albumin/Globulin Ratio C. difficile Tox B Gene Fingerstick Blood Sugar Results: 186 Critical Care Progress Note - Nutrition Nutrition: Nutrition Category Date Time Status NPO Diet [DIET] Diets 10/20/17 Breakfast Active
[2017-10-25] MEDS: EPOETIN ALFA 10,000 UNIT/ML ML SC SCH (12:22)
[2017-10-25] MEDS ORDERED: Chlorhexidine Gluconate 1 APPL/PKT TP ONE (13:55)
--- NOTE | 2017-10-25 14:38 | CP.PCM.PN ---
Subjective - Date & Time of Evaluation Date of Evaluation: 10/25/17 Time of Evaluation: 14:38 - Subjective Subjective: ID note- pt. seen and examined today in ICU. remains intubated but off pressors as per nurse. Objective - Vital Signs/Intake and Output Vital Signs (last 24 hours): Temp Pulse Resp BP Pulse Ox 99.8 F H 108 H 17 94/50 L 100 10/25/17 12:01 10/25/17 14:01 10/25/17 14:01 10/25/17 14:01 10/25/17 14:01 Intake and Output: 10/25/17 10/25/17 06:59 18:59 Intake Total 960 625 Output Total 750 Balance 210 625 - Medications Medications: Current Medications Aspirin (Ecotrin) 81 mg PO DAILY [facility] Last Admin: 10/21/17 08:49 Dose: 81 mg Atorvastatin Calcium (Lipitor) 40 mg PO QPM [facility] [place] Last Admin: 10/21/17 17:21 Dose: Not Given Dextrose (Dextrose 50% Inj) 0 ml IV STAT PRN; Protocol PRN Reason: Hypoglycemia Protocol Dextrose (Glutose 15) 0 gm PO ONCE PRN; Protocol PRN Reason: Hypoglycemia Protocol Dextrose (Dextrose 50% Inj) 0 ml IV STAT PRN; Protocol PRN Reason: Hypoglycemia Protocol Dextrose (Glutose 15) 0 gm PO ONCE PRN; Protocol PRN Reason: Hypoglycemia Protocol Epoetin Axel (Procrit) 10,000 unit SC MWF [facility] [place] Last Admin: 10/25/17 12:22 Dose: 10,000 unit Glucagon (Glucagen Diagnostic Kit) 0 mg IM STAT PRN; Protocol PRN Reason: Hypoglycemia Protocol Glucagon (Glucagen Diagnostic Kit) 0 mg IM STAT PRN; Protocol PRN Reason: Hypoglycemia Protocol Heparin Sodium (Porcine) (Heparin) 5,000 units SC Q8 [facility] PRN Reason: Protocol Last Admin: 10/25/17 08:41 Dose: 5,000 units Azithromycin 500 mg/ Sodium (Chloride) 250 mls @ 250 mls/hr IVPB DAILY [facility] PRN Reason: Protocol Last Admin: 10/25/17 08:47 Dose: 250 mls/hr Metronidazole (Flagyl 500mg/100ml Ns) 100 mls @ 100 mls/hr IVPB Q8 [facility] PRN Reason: Protocol Last Admin: 10/25/17 08:40 Dose: 100 mls/hr Meropenem 500 mg/ Sodium (Chloride) 100 mls @ 100 mls/hr IVPB Q8 [facility] PRN Reason: Protocol Last Admin: 10/25/17 08:42 Dose: 100 mls/hr Midazolam HCl 50 mg/ Dextrose 100 mls @ 4 mls/hr IV .Q24H ONE; 2 MG/HR PRN Reason: Protocol Stop: 10/25/17 14:44 Last Titration: 10/25/17 09:24 Dose: 0 mg/hr, 0 mls/hr Insulin Human Regular (Humulin R) 0 units SC Q4 [facility] PRN Reason: Protocol Last Admin: 10/25/17 12:05 Dose: 1 unit Nystatin (Nystop Topical Powder) 1 applic TOP TID [facility] [place] Last Admin: 10/25/17 12:06 Dose: 1 applic Pantoprazole Sodium (Protonix Inj) 40 mg IVP DAILY [facility] Last Admin: 10/25/17 08:45 Dose: 40 mg Silver Sulfadiazine (Silvadene 1% 20 Gm) 1 ea TOP DAILY [facility] Last Admin: 10/25/17 08:45 Dose: 1 each Vancomycin HCl (Vancocin (Oral/Rectal Use)) 250 mg NG Q8 [facility] PRN Reason: Protocol Last Admin: 10/25/17 08:46 Dose: 250 mg - Labs Labs: 10/25/17 04:20 10/25/17 04:20 PT 12.3 Seconds (9.8-13.1) 10/20/17 19:46 INR 1.1 (0.9-1.2) 10/20/17 19:46 APTT 33.2 Seconds (25.6-37.1) D 10/21/17 04:18 - Additional Findings Additional findings: - Constitutional Appears: Chronically Ill Additional comments: Intubated - Head Exam Head Exam: ATRAUMATIC - ENT Exam Additional comments: ET tube in place - Respiratory Exam Additional comments: on the ventilator breath sounds heard - Cardiovascular Exam Cardiovascular Exam: Tachycardia, +S1, +S2 - GI/Abdominal Exam Additional comments: , soft, bowel sounds heard No guarding - Extremities Exam Additional comments: 1+ LE edema B/L - Neurological Exam responds only to painful stimuli Microbiology 10/20/17 20:00 Blood Blood Culture - Final NO GROWTH AFTER 5 DAYS 10/20/17 20:00 Blood Gram Stain - Final TEST NOT PERFORMED 10/20/17 19:46 Blood Blood Culture - Final NO GROWTH AFTER 5 DAYS 10/20/17 19:46 Blood Gram Stain - Final TEST NOT PERFORMED 10/21/17 14:48 Blood-Venous Blood Culture - Preliminary NO GROWTH AFTER 4 DAYS 10/21/17 15:40 Blood-Venous Blood Culture - Preliminary NO GROWTH AFTER 4 DAYS 10/23/17 11:40 Urine,Clay Urine Culture - Final Yeast Species 10/20/17 10:30 Naris MRSA Culture (Admit) - Final MRSA NOT DETECTED Accession No. : [id number] Patient Name / ID : SUMMER DHILLON / [id number] Exam Date : 10/25/2017 04:46:41 ( Approved ) Study Comment : Sex / Age : F / 77Y Creator : Jose Antonio Mackenzie MD Dictator : Jose Antonio Mackenzie MD Wood Miller : Drawing In Machine Tender Helper : Jose Antonio Mackenzie MD Approver2 : Report Date : 10/25/2017 06:56:31 My Comment : HISTORY: re-evaluate. COMPARISON: Portable chest 10/24/2017. FINDINGS: Endotracheal tube is again appreciated with tip likely less than 1 cm above the justo. Retraction by a few cm is advised following confirmation radiography. Right central venous line unchanged in position. Nasogastric tube reiterated. LUNGS: Retrocardiac atelectasis is favored over infiltrate obscuring the left hemidiaphragm. No right-sided infiltrate. PLEURA: A minimal left pleural effusion again evident with none on the right. No pneumothorax bilaterally. Lower face obscures right apex somewhat. CARDIOVASCULAR: Normal. OSSEOUS STRUCTURES: No significant abnormalities. VISUALIZED UPPER ABDOMEN: Normal. OTHER FINDINGS: None. IMPRESSION: Stable chest radiography with limited left basilar atelectasis favored over infiltrate noted. Trace of pleural effusion. ET tube remains less than 1 cm above the justo. Retraction of 2 cm is advised follow-up by confirmation radiography. Assessment and Plan (1) Acute on chronic renal failure Status: Acute (2) Metabolic acidosis Status: Resolved (3) Septic shock Status: Acute (4) UTI (urinary tract infection) Status: Acute (5) Hyperkalemia Status: Resolved - Assessment and Plan (Free Text) Assessment: A/P- 77 year old female with multiple medical conditions and noncomplaint including CKD stage 4, DM II, b/l ureteral stents ( repaced 09/2017) admitted with change in MS, lethargy found to be hyperkalemic, metabolic acidosis, acute on chronic renal insufficiency leukocytosis. anuric as per ER doc unable to insert clay and pus was noted . remains intubated off pressors HD for metabolic acidosis and anurea as per renal doc blood cx- neg x 4 urine cx- yeast leukocytosis trending down stool c.diff- pos metabolic acidosis c.diff colitis leukocytosis acute on chronic renal failure s/p emergent HD plan- advise to continue with empiric IV meropenm day #6 (renal dose). continue with IV flagyl for c.diff colitis day #6. continue with vanco via NGT day #2. acidosis and hyperkalemia management as per ICU and renal doctor. advise fluconazole for fungal UTI. needs to have the ureteral stent removed once medically more stable. monitor temp and wbc closely. All labs and imaging results and chart notes reviewed. ICU time 50 minutes.
--- NOTE | 2017-10-25 20:03 | CP.PCM.CON ---
History of Present Illness - History of Present Illness History of Present Illness: urology consult dictated. suggest bladder irrigation once daily at this time Past Patient History - Infectious Disease Hx of Infectious Diseases: None - Past Medical History & Family History Past Medical History?: Yes - Past Social History Smoking Status: Never Smoked - CARDIAC Hx Hypercholesterolemia: Yes Hx Hypertension: Yes - PULMONARY Hx Chronic Obstructive Pulmonary Disease (COPD): Yes Hx Pneumonia: Yes - NEUROLOGICAL Hx Neurological Disorder: No - HEENT Hx HEENT Problems: No - RENAL Hx Chronic Kidney Disease: Yes - ENDOCRINE/METABOLIC Hx Endocrine Disorders: Yes Hx Diabetes Mellitus Type 2: Yes - HEMATOLOGICAL/ONCOLOGICAL Hx Blood Disorders: No - INTEGUMENTARY Hx Dermatological Problems: No - MUSCULOSKELETAL/RHEUMATOLOGICAL Hx Arthritis: Yes - GASTROINTESTINAL Hx Gastrointestinal Disorders: No - GENITOURINARY/GYNECOLOGICAL Hx Genitourinary Disorders: Yes Hx Incontinence: Yes - PSYCHIATRIC Hx Anxiety: Yes Hx Depression: Yes - SURGICAL HISTORY Hx Tonsillectomy: Yes - ANESTHESIA Hx Anesthesia: Yes Hx Anesthesia Reactions: No Hx Malignant Hyperthermia: No Meds Allergies/Adverse Reactions: Allergies Allergy/AdvReac Type Severity Reaction Status Date / Time No Known Allergies Allergy Verified 05/08/17 21:15 - Medications Medications: Current Medications Aspirin (Ecotrin) 81 mg PO DAILY [facility] Last Admin: 10/21/17 08:49 Dose: 81 mg Atorvastatin Calcium (Lipitor) 40 mg PO QPM [facility] Last Admin: 10/21/17 17:21 Dose: Not Given Dextrose (Dextrose 50% Inj) 0 ml IV STAT PRN; Protocol PRN Reason: Hypoglycemia Protocol Dextrose (Glutose 15) 0 gm PO ONCE PRN; Protocol PRN Reason: Hypoglycemia Protocol Dextrose (Dextrose 50% Inj) 0 ml IV STAT PRN; Protocol PRN Reason: Hypoglycemia Protocol Dextrose (Glutose 15) 0 gm PO ONCE PRN; Protocol PRN Reason: Hypoglycemia Protocol Epoetin Axel (Procrit) 10,000 unit SC MWF [facility] Last Admin: 10/25/17 12:22 Dose: 10,000 unit Glucagon (Glucagen Diagnostic Kit) 0 mg IM STAT PRN; Protocol PRN Reason: Hypoglycemia Protocol Glucagon (Glucagen Diagnostic Kit) 0 mg IM STAT PRN; Protocol PRN Reason: Hypoglycemia Protocol Heparin Sodium (Porcine) (Heparin) 5,000 units SC Q8 [facility] PRN Reason: Protocol Last Admin: 10/25/17 16:07 Dose: 5,000 units Azithromycin 500 mg/ Sodium (Chloride) 250 mls @ 250 mls/hr IVPB DAILY [facility] PRN Reason: Protocol Last Admin: 10/25/17 08:47 Dose: 250 mls/hr Metronidazole (Flagyl 500mg/100ml Ns) 100 mls @ 100 mls/hr IVPB Q8 [facility] PRN Reason: Protocol Last Admin: 10/25/17 16:07 Dose: 100 mls/hr Meropenem 500 mg/ Sodium (Chloride) 100 mls @ 100 mls/hr IVPB Q8 [facility] PRN Reason: Protocol Last Admin: 10/25/17 16:08 Dose: 100 mls/hr Insulin Human Regular (Humulin R) 0 units SC Q4 [facility] PRN Reason: Protocol Last Admin: 10/25/17 17:35 Dose: 2 unit Nystatin (Nystop Topical Powder) 1 applic TOP TID [facility] Last Admin: 10/25/17 16:08 Dose: 1 applic Pantoprazole Sodium (Protonix Inj) 40 mg IVP DAILY [facility] Last Admin: 10/25/17 08:45 Dose: 40 mg Silver Sulfadiazine (Silvadene 1% 20 Gm) 1 ea TOP DAILY [facility] Last Admin: 10/25/17 08:45 Dose: 1 each Vancomycin HCl (Vancocin (Oral/Rectal Use)) 250 mg NG Q8 [facility] PRN Reason: Protocol Last Admin: 10/25/17 16:09 Dose: 250 mg Results - Vital Signs Recent Vital Signs: Last Vital Signs Temp 99.7 F H 10/25/17 16:00 Pulse 116 H 10/25/17 19:41 Resp 21 10/25/17 19:41 BP 108/60 10/25/17 19:41 Pulse Ox 100 10/25/17 19:41 - Labs Result Diagrams: 10/25/17 04:20 10/25/17 04:20 Labs: Laboratory Results - last 24 hr 10/24/17 10/25/17 10/25/17 20:49 00:25 04:13 WBC RBC Hgb Hct MCV MCH MCHC RDW Plt Count MPV Neut % (Auto) Lymph % (Auto) [place] % (Auto) Eos % (Auto) Baso % (Auto) Neut # (Auto) Lymph # (Auto) [place] # (Auto) Eos # (Auto) Baso # (Auto) pCO2 pO2 HCO3 ABG pH ABG Total CO2 ABG O2 Saturation ABG O2 Content ABG Base Excess ABG Hemoglobin ABG Carboxyhemoglobin POC ABG HHb (Measured) ABG Methemoglobin ABG O2 Capacity Arnoldo Test A-a O2 Difference Hgb O2 Saturation Vent Mode Mechanical Rate FiO2 Tidal Volume PEEP Sodium Potassium Chloride Carbon Dioxide Anion Gap BUN Creatinine Est GFR ( Amer) Est GFR (Non-Af Amer) POC Glucose (mg/dL) 243 H 249 H 146 H Random Glucose Calcium Total Bilirubin AST ALT Alkaline Phosphatase Total Protein Albumin Globulin Albumin/Globulin Ratio 10/25/17 10/25/17 10/25/17 04:20 04:20 04:44 WBC 15.4 H RBC 3.22 L Hgb 8.5 L Hct 27.2 L MCV 84.7 MCH 26.6 L MCHC 31.4 L RDW 15.8 H Plt Count 175 MPV 7.5 Neut % (Auto) 77.0 H Lymph % (Auto) 14.6 L [place] % (Auto) 7.9 Eos % (Auto) 0.4 Baso % (Auto) 0.1 Neut # (Auto) 11.8 H Lymph # (Auto) 2.2 [place] # (Auto) 1.2 H Eos # (Auto) 0.1 Baso # (Auto) 0.0 pCO2 38 pO2 181 H HCO3 29.1 H ABG pH 7.49 H ABG Total CO2 30.2 H ABG O2 Saturation 99.3 H ABG O2 Content 12.3 L ABG Base Excess 5.3 H ABG Hemoglobin 8.7 L ABG Carboxyhemoglobin 0.6 POC ABG HHb (Measured) 0.7 ABG Methemoglobin 1.4 ABG O2 Capacity 12.4 L Arnoldo Test Yes A-a O2 Difference 57.0 Hgb O2 Saturation 97.2 Vent Mode Ac Mechanical Rate 12 FiO2 40.0 Tidal Volume 450 PEEP 5 Sodium 139 Potassium 3.2 L Chloride 102 Carbon Dioxide 25 Anion Gap 15 BUN 52 H Creatinine 4.7 H Est GFR ( Amer) 11 Est GFR (Non-Af Amer) 9 POC Glucose (mg/dL) Random Glucose 118 H Calcium 7.5 L Total Bilirubin 0.3 AST 22 ALT 34 Alkaline Phosphatase 93 Total Protein 4.6 L Albumin 2.1 L Globulin 2.5 Albumin/Globulin Ratio 0.9 L 10/25/17 10/25/17 10/25/17 07:57 11:14 17:32 WBC RBC Hgb Hct MCV MCH MCHC RDW Plt Count MPV Neut % (Auto) Lymph % (Auto) [place] % (Auto) Eos % (Auto) Baso % (Auto) Neut # (Auto) Lymph # (Auto) [place] # (Auto) Eos # (Auto) Baso # (Auto) pCO2 pO2 HCO3 ABG pH ABG Total CO2 ABG O2 Saturation ABG O2 Content ABG Base Excess ABG Hemoglobin ABG Carboxyhemoglobin POC ABG HHb (Measured) ABG Methemoglobin ABG O2 Capacity Arnoldo Test A-a O2 Difference Hgb O2 Saturation Vent Mode Mechanical Rate FiO2 Tidal Volume PEEP Sodium Potassium Chloride Carbon Dioxide Anion Gap BUN Creatinine Est GFR ( Amer) Est GFR (Non-Af Amer) POC Glucose (mg/dL) 186 H 190 H 248 H Random Glucose Calcium Total Bilirubin AST ALT Alkaline Phosphatase Total Protein Albumin Globulin Albumin/Globulin Ratio
--- NOTE | 2017-10-25 22:31 | CP.PCM.PN ---
Subjective - Date & Time of Evaluation Date of Evaluation: 10/25/17 Time of Evaluation: 13:00 - Subjective Subjective: Patient running low grade fever; off vasopressors; sedation also stopped today; Objective - Vital Signs/Intake and Output Vital Signs (last 24 hours): Temp Pulse Resp BP Pulse Ox 100 F H 121 H 22 123/73 100 10/25/17 20:00 10/25/17 22:00 10/25/17 22:00 10/25/17 22:00 10/25/17 22:00 Intake and Output: 10/25/17 10/26/17 18:59 06:59 Intake Total 1492 165 Output Total 525 Balance 967 165 - Medications Medications: Current Medications Aspirin (Ecotrin) 81 mg PO DAILY [facility] Last Admin: 10/21/17 08:49 Dose: 81 mg Atorvastatin Calcium (Lipitor) 40 mg PO QPM [facility] Last Admin: 10/21/17 17:21 Dose: Not Given Dextrose (Dextrose 50% Inj) 0 ml IV STAT PRN; Protocol PRN Reason: Hypoglycemia Protocol Dextrose (Glutose 15) 0 gm PO ONCE PRN; Protocol PRN Reason: Hypoglycemia Protocol Dextrose (Dextrose 50% Inj) 0 ml IV STAT PRN; Protocol PRN Reason: Hypoglycemia Protocol Dextrose (Glutose 15) 0 gm PO ONCE PRN; Protocol PRN Reason: Hypoglycemia Protocol Epoetin Axel (Procrit) 10,000 unit SC MWF [facility] Last Admin: 10/25/17 12:22 Dose: 10,000 unit Glucagon (Glucagen Diagnostic Kit) 0 mg IM STAT PRN; Protocol PRN Reason: Hypoglycemia Protocol Glucagon (Glucagen Diagnostic Kit) 0 mg IM STAT PRN; Protocol PRN Reason: Hypoglycemia Protocol Heparin Sodium (Porcine) (Heparin) 5,000 units SC Q8 [facility] PRN Reason: Protocol Last Admin: 10/25/17 16:07 Dose: 5,000 units Azithromycin 500 mg/ Sodium (Chloride) 250 mls @ 250 mls/hr IVPB DAILY [facility] PRN Reason: Protocol Last Admin: 10/25/17 08:47 Dose: 250 mls/hr Metronidazole (Flagyl 500mg/100ml Ns) 100 mls @ 100 mls/hr IVPB Q8 [facility] PRN Reason: Protocol Last Admin: 10/25/17 16:07 Dose: 100 mls/hr Meropenem 500 mg/ Sodium (Chloride) 100 mls @ 100 mls/hr IVPB Q8 [facility] PRN Reason: Protocol Last Admin: 10/25/17 16:08 Dose: 100 mls/hr Insulin Human Regular (Humulin R) 0 units SC Q4 [facility] PRN Reason: Protocol Last Admin: 10/25/17 17:35 Dose: 2 unit Nystatin (Nystop Topical Powder) 1 applic TOP TID [facility] Last Admin: 10/25/17 16:08 Dose: 1 applic Pantoprazole Sodium (Protonix Inj) 40 mg IVP DAILY [facility] Last Admin: 10/25/17 08:45 Dose: 40 mg Silver Sulfadiazine (Silvadene 1% 20 Gm) 1 ea TOP DAILY [facility] Last Admin: 10/25/17 08:45 Dose: 1 each Vancomycin HCl (Vancocin (Oral/Rectal Use)) 250 mg NG Q8 [facility] PRN Reason: Protocol Last Admin: 10/25/17 16:09 Dose: 250 mg - Labs Labs: 10/25/17 04:20 10/25/17 04:20 PT 12.3 Seconds (9.8-13.1) 10/20/17 19:46 INR 1.1 (0.9-1.2) 10/20/17 19:46 APTT 33.2 Seconds (25.6-37.1) D 10/21/17 04:18 - Constitutional Appears: Non-toxic, No Acute Distress - Eye Exam Eye Exam: Normal appearance. absent: Scleral icterus - ENT Exam ENT Exam: Mucous Membranes Moist - Respiratory Exam Respiratory Exam: Clear to Ausculation Bilateral. absent: Respiratory Distress - Cardiovascular Exam Cardiovascular Exam: Tachycardia, +S1, +S2 - GI/Abdominal Exam GI & Abdominal Exam: Soft. absent: Distended, Tenderness - Exam Exam: absent: Bladder Distension - Extremities Exam Additional comments: minimal leg edema; edematous UE b/l; - Neurological Exam Additional comments: responsive only to noxious stimuli today; - Skin Skin Exam: Warm. absent: Cyanosis Assessment and Plan (1) Acute renal failure Assessment & Plan: NINA on CKD IV; showing signs of renal recovery with decrease in serum creatinine and much improved urine output; relatively stable electrolyte status (mild hypokalemia noted) and FIO2 requirement; -no more need for HD; should d/c non-tunneled femoral HD catheter (today is 5th day) -can replenish potassium more aggressively given good UO and improved renal function -continue to avoid nephrotoxic agents -f/u urology recs regarding bladder irrigation; Status: Acute (2) Metabolic acidosis Status: Resolved (3) Hyperkalemia Status: Resolved (4) Septic shock Assessment & Plan: Now C diff positive; continue to dose antibiotics for CrCl < 20 ml/min; check vanco level if considering re-dosing; Status: Acute (5) Anemia Assessment & Plan: Started on EPO qMWF, continue; Status: Acute
[2017-10-26] MEDS: Meropenem 500 MG in Sodium Chloride 0.9% 100 ML IVPB SCH ×3 (00:08→16:18)
[2017-10-26] MEDS: Vancomycin 500 mg (Oral/Rectal USE) NG SCH ×3 (00:15→16:19)
[2017-10-26] MEDS: metroNIDAZOLE 500mg/100ml NS 100 ML IVPB SCH ×2 (00:40→09:27)
[2017-10-26] MEDS: Insulin Regular 100 units/ml SC SCH ×6 (00:49→20:20)
--- NOTE | 2017-10-26 01:36 | CON ---
DATE: HISTORY OF PRESENT ILLNESS: This is a 77-year-old female patient who I was called to evaluate because of urosepsis and bilateral hydronephrosis. The patient is known to me for having had bilateral hydronephrosis in the past. I have twice already changed bilateral double-J stents in an attempt to decrease the hydronephrosis. The most recent change was approximately 2 months ago, at which time 7-Swedish bilateral double-J stents were inserted. She was hospitalized on this most recent visit because of sepsis and renal failure. She has significantly elevated BUN and creatinine. She was started on dialysis to control the extent of the renal failure. The patient has a Adams catheter inserted at this time and the outflow is significantly cloudy, milky looking in nature. Culture was done on , which showed presence of yeast in that urine culture. On evaluation today, she has been made DNR. Her blood pressure was significantly unstable and she was being maintained on pressors, which now she is being slowly weaned off all these products. The Adams catheter is in good position, it is cloudy to milky looking in color, and I will probably recommend to be treating the yeast with Diflucan and perhaps bladder washings. If simply saline will help and the urine clears that would be the conservative route, if not some, antifungal medication can be mixed with the irrigant to help control the outbreak of the yeast in the bladder. I spoke with the patient's family and their wishes are to maintain a very basic approach to her care. They are accepting of the patient's desire to not have any resuscitative measures taken and so they expressed to me the same concern. At this time, we will request bladder irrigation and will follow up in the next several days to see how that is performing on the outflow of her urine. Irlanda Valentine MD
[2017-10-26 04:53] LABS: ABG ALLEN TEST YES; ARTERIAL BLOOD GAS HCO3 28.9 mmol/L (21-28); ARTERIAL BLOOD GAS O2 CAPACITY 11.4 mL/dL (16-24); ARTERIAL BLOOD GAS O2 CONTENT 11.4 ML/dL (15-23); ARTERIAL BLOOD GAS O2 SAT 100.4 % (95-98); ARTERIAL BLOOD GAS PCO2 40 mm/Hg (35-45); ARTERIAL BLOOD GAS PH 7.47 (7.35-7.45); ARTERIAL BLOOD GAS PO2 157 mm/Hg (80-100); ARTERIAL BLOOD GAS TCO2 30.3 mmol/L (22-28)
[2017-10-26 05:24] LABS: HEMOGLOBIN 7.9 g/dL (12.0-16.0); MEAN CELL VOLUME 85.5 fl (81.0-99.0); MEAN CORPUSCULAR HEMOGLOBIN 26.8 pg (27.0-31.0); MEAN CORPUSCULAR HGB CONC 31.3 g/dL (33.0-37.0); RBC 2.96 Mil/uL (3.80-5.20); RED CELL DISTRIBUTION WIDTH 16.1 % (11.5-14.5)
[2017-10-26 05:31] LABS: CALCIUM 7.3 mg/dL (8.4-10.2)
--- NOTE | 2017-10-26 08:30 | RAD ---
HISTORY: intubated COMPARISON: Frontal chest radiograph 10/25/2017. FINDINGS: Right central venous line and nasogastric tubes appear unchanged in position. Endotracheal tube appears to terminate impression 1 cm above the justo. LUNGS: Left basilar atelectasis or infiltrate is unchanged with small pleural effusion likely. No right pleural effusion or pneumothorax bilaterally. PLEURA: As above. CARDIOVASCULAR: Normal. OSSEOUS STRUCTURES: No significant abnormalities. VISUALIZED UPPER ABDOMEN: Normal. OTHER FINDINGS: None. IMPRESSION: No interval change in left basilar airspace disease with minimal left pleural effusion evident. No interval infiltrate right chest or pleural effusion.
[2017-10-26] MEDS: Silver Sulfadiazine 1% Cream (20 gm) TOP SCH (09:32)
[2017-10-26] MEDS: Azithromycin 500 MG in Sodium Chloride 0.9% 250 ML IVPB SCH (09:33)
--- NOTE | 2017-10-26 09:41 | CP.PCM.PN ---
Addendum entered and electronically signed by Katelyn Pierce MD 10/26/17 17: 57: HD tunneled catheter removed as per Nephro recs, done w/o complications. Original Note: <Katelyn Pierce - Last Filed: 10/26/17 14:59> Subjective - Date & Time of Evaluation Date of Evaluation: 10/26/17 Time of Evaluation: 07:00 - Subjective Subjective: ICU day 7 Patient seen and examined this morning, no overnight event. Remains intubated but off all pressors and sedation. She responds to name and has intermittent awakening but still under sedation effects. Afebrile. I/O [id number]/[id number] Objective - Vital Signs/Intake and Output Vital Signs (last 24 hours): Temp Pulse Resp BP Pulse Ox 98.4 F 108 H 19 131/65 100 10/26/17 08:00 10/26/17 08:00 10/26/17 08:00 10/26/17 08:00 10/26/17 08:00 Intake and Output: 10/26/17 10/26/17 06:59 18:59 Intake Total 1060 450 Output Total 1400 Balance -340 450 - Medications Medications: Current Medications Aspirin (Ecotrin) 81 mg PO DAILY [facility] Last Admin: 10/21/17 08:49 Dose: 81 mg Atorvastatin Calcium (Lipitor) 40 mg PO QPM [facility] Last Admin: 10/21/17 17:21 Dose: Not Given Dextrose (Dextrose 50% Inj) 0 ml IV STAT PRN; Protocol PRN Reason: Hypoglycemia Protocol Dextrose (Glutose 15) 0 gm PO ONCE PRN; Protocol PRN Reason: Hypoglycemia Protocol Dextrose (Dextrose 50% Inj) 0 ml IV STAT PRN; Protocol PRN Reason: Hypoglycemia Protocol Dextrose (Glutose 15) 0 gm PO ONCE PRN; Protocol PRN Reason: Hypoglycemia Protocol Epoetin Axel (Procrit) 10,000 unit SC MWF [facility] Last Admin: 10/25/17 12:22 Dose: 10,000 unit Glucagon (Glucagen Diagnostic Kit) 0 mg IM STAT PRN; Protocol PRN Reason: Hypoglycemia Protocol Glucagon (Glucagen Diagnostic Kit) 0 mg IM STAT PRN; Protocol PRN Reason: Hypoglycemia Protocol Heparin Sodium (Porcine) (Heparin) 5,000 units SC Q8 [facility] PRN Reason: Protocol Last Admin: 04/19/18 09:29 Dose: 5,000 units Meropenem 500 mg/ Sodium (Chloride) 100 mls @ 100 mls/hr IVPB Q8 [facility] PRN Reason: Protocol Last Admin: 10/26/17 09:30 Dose: 100 mls/hr Insulin Human Regular (Humulin R) 0 units SC Q4 [facility] PRN Reason: Protocol Last Admin: 10/26/17 09:30 Dose: Not Given Nystatin (Nystop Topical Powder) 1 applic TOP TID [facility] Last Admin: 10/26/17 09:31 Dose: 1 applic Pantoprazole Sodium (Protonix Inj) 40 mg IVP DAILY [facility] Last Admin: 10/26/17 09:31 Dose: 40 mg Silver Sulfadiazine (Silvadene 1% 20 Gm) 1 ea TOP DAILY [facility] Last Admin: 10/26/17 09:32 Dose: 1 each Vancomycin HCl (Vancocin (Oral/Rectal Use)) 250 mg NG Q8 [facility] PRN Reason: Protocol Last Admin: 10/26/17 09:32 Dose: 250 mg - Labs Labs: 10/26/17 04:30 10/26/17 04:30 PT 12.3 Seconds (9.8-13.1) 10/20/17 19:46 INR 1.1 (0.9-1.2) 10/20/17 19:46 APTT 33.2 Seconds (25.6-37.1) D 10/21/17 04:18 - Constitutional Appears: Other (Respond to name, remains bit sedated, intubated on MV) - Head Exam Head Exam: NORMAL INSPECTION - Eye Exam Eye Exam: EOMI, PERRL - ENT Exam ENT Exam: Mucous Membranes Moist - Respiratory Exam Respiratory Exam: Clear to Ausculation Bilateral, NORMAL BREATHING PATTERN. absent: Rhonchi, Wheezes - Cardiovascular Exam Cardiovascular Exam: Tachycardia, REGULAR RHYTHM, +S1, +S2 - GI/Abdominal Exam GI & Abdominal Exam: Soft, Normal Bowel Sounds. absent: Distended - Skin Additional comments: Sacrum: Purple localized DTI, non blanchable. R foot: localized erythema (DTI) in plantar aspect of great toe. L foot: Stage 2 pressure ulcer noted on medial aspect of heel. Assessment and Plan - Assessment and Plan (Free Text) Assessment: 77yo F with PMHx uncontrolled IDDM2, HTN, CKD4, Hydronephrosis s/p bilateral stenting, chronic kidney disease (Dialysis) admitted with septic shock. Plan: c/w IV abx, ventilator. Off sedation and pressors. Prognosis guarded. Currently DNR 1- Septic shock, improved - secondary to urosepsis likely due to infected ureteral stents - mechanical ventilation - Space Controller on consult, Recs appreciated: -Off sedation and pressors - ID on board: broad spectrum antibiotics: Meropenem, Azithromycin, Metronidazole, parental vanco - Urology Dr Valentine consult placed, recs appreciated. -suggest bladder irrigation with sterile water once daily at this time. - no plan to remove stents for now. - leukocytosis trending down - afebrile 2- Acute Kidney Injury on CKD, improving -BUN/Cr 58/4.5 -Nephro on board Dr. Garcia. Recs are appreciated: - HD on 10/23/2017 - showing signs of renal recovery with decrease in creatinine and much improved urine output. - no more need for HD - K 3.2 3- HAGMA: high anion gap metabolic acidosis, compensating -s/p bicarbonate drip -s/p HD 4- Anemia -H/H: 8.5/27.2 -FOBT + -T&S 5- H/O Hydronephrosis s/p bilateral stenting - likely infected and possible cause of sepsis - Urology on board Dr. Valentine recs appreciated - pus noted in urine - urine cx w/ yeast species 6- Diverticulitis, +C diff. -c/w flagyl 7- Hypertension -Hold home BP meds for now 2/2 shock 8- Diabetes Mellitus type 2 -hold home PO meds -accucheck -insulin coverage by protocol -hypoglycemic protocol 9- Wound assessment - Ulcer present on Sacrum: Purple localized DTI, non blanchable, stable. - R foot: localized erythema (DTI) in plantar aspect of great toe and right heel resolving. - L foot: Stage 2 pressure ulcer noted on medial aspect of heel, stable. - Wound care on board 10- DVT prophylaxis -Heparin SC 11 - Code Status: DNR: Documentation reviewed: Status was discussed with family via Dr. Garcia and made aware by Dr. Mendes. Palliative care consulted. <Min Woody - Last Filed: 10/27/17 06:51> Objective - Vital Signs/Intake and Output Vital Signs (last 24 hours): Temp Pulse Resp BP Pulse Ox 98.2 F 118 H 25 H 148/75 100 10/27/17 04:00 10/27/17 05:53 10/27/17 05:53 10/27/17 05:53 10/27/17 05:53 Intake and Output: 10/26/17 10/27/17 18:59 06:59 Intake Total 1260 810 Output Total 925 800 Balance 335 10 - Medications Medications: Current Medications Aspirin (Ecotrin) 81 mg PO DAILY [facility] Last Admin: 10/21/17 08:49 Dose: 81 mg Atorvastatin Calcium (Lipitor) 40 mg PO QPM [facility] Last Admin: 10/21/17 17:21 Dose: Not Given Dextrose (Dextrose 50% Inj) 0 ml IV STAT PRN; Protocol PRN Reason: Hypoglycemia Protocol Dextrose (Glutose 15) 0 gm PO ONCE PRN; Protocol PRN Reason: Hypoglycemia Protocol Dextrose (Dextrose 50% Inj) 0 ml IV STAT PRN; Protocol PRN Reason: Hypoglycemia Protocol Dextrose (Glutose 15) 0 gm PO ONCE PRN; Protocol PRN Reason: Hypoglycemia Protocol Epoetin Axel (Procrit) 10,000 unit SC MWF [facility] Last Admin: 10/25/17 12:22 Dose: 10,000 unit Glucagon (Glucagen Diagnostic Kit) 0 mg IM STAT PRN; Protocol PRN Reason: Hypoglycemia Protocol Glucagon (Glucagen Diagnostic Kit) 0 mg IM STAT PRN; Protocol PRN Reason: Hypoglycemia Protocol Heparin Sodium (Porcine) (Heparin) 5,000 units SC Q8 [facility] PRN Reason: Protocol Last Admin: 10/27/17 00:17 Dose: 5,000 units Meropenem 500 mg/ Sodium (Chloride) 100 mls @ 100 mls/hr IVPB Q8 [facility] PRN Reason: Protocol Last Admin: 10/27/17 00:19 Dose: 100 mls/hr Fluconazole (Diflucan Iv 100 Mg/50 Ml Ns) 50 mls @ 50 mls/hr IVPB DAILY [facility] PRN Reason: Protocol Last Admin: 10/26/17 16:16 Dose: 50 mls/hr Insulin Human Regular (Humulin R) 0 units SC Q4 [facility] PRN Reason: Protocol Last Admin: 10/27/17 04:20 Dose: 3 unit Nystatin (Nystop Topical Powder) 1 applic TOP TID [facility] Last Admin: 10/26/17 16:19 Dose: 1 applic Pantoprazole Sodium (Protonix Inj) 40 mg IVP DAILY [facility] Last Admin: 10/26/17 09:31 Dose: 40 mg Silver Sulfadiazine (Silvadene 1% 20 Gm) 1 ea TOP DAILY [facility] Last Admin: 10/26/17 09:32 Dose: 1 each Vancomycin HCl (Vancocin (Oral/Rectal Use)) 250 mg NG Q8 [facility] PRN Reason: Protocol Last Admin: 10/27/17 00:20 Dose: 250 mg - Labs Labs: 10/27/17 04:35 10/27/17 04:35 PT 12.3 Seconds (9.8-13.1) 10/20/17 19:46 INR 1.1 (0.9-1.2) 10/20/17 19:46 APTT 33.2 Seconds (25.6-37.1) D 10/21/17 04:18 Attending/Attestation - Attestation I have personally seen and examined this patient.: Yes I have fully participated in the care of the patient.: Yes I have reviewed all pertinent clinical information, including history, physical exam and plan: Yes
--- NOTE | 2017-10-26 10:55 | CP.CCUPN ---
CCU Subjective - Physician Review Subjective (Free Text): Off all major IV drips including vasopressors and anxiolytics. Intermittent awakening noted, bit not consistently awake. Just had a period of desaturation requiring vigorous suction and sterile saline lavage to clear inspissated mucus before saturations improved back to 100% SPO2 on same 40% FiO2. Other Vitals and I/Os reviewed. Last 24H I/Os = 2552/1925 ml. Adams output last 12H = 1900ml. ROS: No other pertinent negs or positives on 10+ system review unobtainable- intubated and sedated. PMSFH: All other Nursing and physician documentation reviewed to date; no new pertinent info noted relevant to current medical problems. EXAM- HEENT: no icterus, no gaze preference, pupils equal and reactive, no icterus NECK: No JVD, supple, carotids equal upstroke bilat/no bruits CHEST: decreased BS bases, no wheezes audible HEART: regular distant, S1S2, no rubs. ABD: soft, mild distention, no tympany, no palp tenderness, BS hypoactive. EXT: trace edema bilat. No peripheral/ digital cyanosis, no calf tenderness or palpable cords, distal pulses intact and symmetrical. NEURO: decreased tone in all extremties SKIN: no rashes, warm and dry. LABS: ABG 7.47/40/157 WBC= 14.0 HGB= 7.9 PLTs= 133K Na= 142 K= 3.2 CL= 104 HCO3= 26 BUN/Cr= 58/4.5 BS= 241 CXR: Left hemidiphragm not visible. ETT position OK. IMPRESSION / MAJOR PROBLEMS NOW: 1. Acute Resp Insuff on MV support due to Severe Sepsis with Shock and metabolic encephalopathy with Uremia. 2. Urosepsis with Septic Shock 3. NINA / ATN on CKD IV 4. Chronic Disease Anemia 5. Uncontrolled DM II with possible DKA on admission PLAN: 1. Stop sedation entirely yesterday and expect prolonged elimination of Midazolam due to exiting renal failure although renal fx is slowly improving. If abnormal or not awakening in an appropriate manner, consider repeat CT Brain. 2. day # 7 on MV support. Try SBTs when she is more awake. 3. Could lower fiO2 further to 35- 30% as tolerated. 4. Empiric abx coverage ongoing as per ID: enteral Vanco/ Sylvia. + yeast in urine, to undergo bladder irrigation. 5. Urology advice reviewed; ureteral stents remain. No organisms isolated. 6. See orders. CCU Objective - Vital Signs / Intake & Output Vital Signs (Last 4 hours): Vital Signs Temp Pulse Resp BP Pulse Ox 10/26/17 10:00 96 H 16 142/79 100 10/26/17 08:00 98.4 F 108 H 19 131/65 100 10/26/17 06:54 95 H 20 118/63 100 Intake and Output (Last 8hrs): Intake & Output 10/25/17 10/26/17 10/26/17 22:59 06:59 14:59 Intake Total 1032 895 450 Output Total 525 1400 Balance 507 -505 450 Weight 193 lb 193 lb Intake: IV 17 100 Intake, Piggyback 200 300 450 Tube Feeding 815 495 Output: Urine 500 1400 Urethral (Adams) 500 1400 Stool 25 Other: # Bowel Movements 1
[2017-10-26] MEDS ORDERED: Potassium Chloride 20 mEq/15 ml LIQ UD PO ONE (11:00)
--- NOTE | 2017-10-26 15:14 | CP.PCM.PN ---
Subjective - Date & Time of Evaluation Date of Evaluation: 10/26/17 Time of Evaluation: 15:10 - Subjective Subjective: Id note- pt. seen and examined today in ICU. off pressors and off sedation. no more HD as per Nurse and pt. is urinating well via clay catheter. pt. only responds to painful stimuli. Objective - Vital Signs/Intake and Output Vital Signs (last 24 hours): Temp Pulse Resp BP Pulse Ox 98.5 F 97 H 18 129/69 100 10/26/17 12:00 10/26/17 12:00 10/26/17 12:00 10/26/17 12:00 10/26/17 12:00 Intake and Output: 10/26/17 10/26/17 06:59 18:59 Intake Total 1060 450 Output Total 1400 Balance -340 450 - Medications Medications: Current Medications Aspirin (Ecotrin) 81 mg PO DAILY [facility] Last Admin: 10/21/17 08:49 Dose: 81 mg Atorvastatin Calcium (Lipitor) 40 mg PO QPM [facility] Last Admin: 10/21/17 17:21 Dose: Not Given Dextrose (Dextrose 50% Inj) 0 ml IV STAT PRN; Protocol PRN Reason: Hypoglycemia Protocol Dextrose (Glutose 15) 0 gm PO ONCE PRN; Protocol PRN Reason: Hypoglycemia Protocol Dextrose (Dextrose 50% Inj) 0 ml IV STAT PRN; Protocol PRN Reason: Hypoglycemia Protocol Dextrose (Glutose 15) 0 gm PO ONCE PRN; Protocol PRN Reason: Hypoglycemia Protocol Epoetin Axel (Procrit) 10,000 unit SC MWF [facility] Last Admin: 10/25/17 12:22 Dose: 10,000 unit Glucagon (Glucagen Diagnostic Kit) 0 mg IM STAT PRN; Protocol PRN Reason: Hypoglycemia Protocol Glucagon (Glucagen Diagnostic Kit) 0 mg IM STAT PRN; Protocol PRN Reason: Hypoglycemia Protocol Heparin Sodium (Porcine) (Heparin) 5,000 units SC Q8 [facility] PRN Reason: Protocol Last Admin: 10/26/17 09:29 Dose: 5,000 units Meropenem 500 mg/ Sodium (Chloride) 100 mls @ 100 mls/hr IVPB Q8 [facility] PRN Reason: Protocol Last Admin: 10/26/17 09:30 Dose: 100 mls/hr Fluconazole (Diflucan Iv 100 Mg/50 Ml Ns) 50 mls @ 50 mls/hr IVPB DAILY [facility] PRN Reason: Protocol Insulin Human Regular (Humulin R) 0 units SC Q4 [facility] PRN Reason: Protocol Last Admin: 10/26/17 12:13 Dose: 1 unit Nystatin (Nystop Topical Powder) 1 applic TOP TID [facility] Last Admin: 10/26/17 12:14 Dose: 1 applic Pantoprazole Sodium (Protonix Inj) 40 mg IVP DAILY [facility] Last Admin: 10/26/17 09:31 Dose: 40 mg Silver Sulfadiazine (Silvadene 1% 20 Gm) 1 ea TOP DAILY [facility] Last Admin: 10/26/17 09:32 Dose: 1 each Vancomycin HCl (Vancocin (Oral/Rectal Use)) 250 mg NG Q8 [facility] PRN Reason: Protocol Last Admin: 10/26/17 09:32 Dose: 250 mg - Labs Labs: - Additional Findings Additional findings: - Constitutional Appears: Chronically Ill Additional comments: Intubated - Head Exam Head Exam: ATRAUMATIC - ENT Exam Additional comments: ET tube in place - Respiratory Exam Additional comments: on the ventilator breath sounds heard - Cardiovascular Exam Cardiovascular Exam: Tachycardia, +S1, +S2 - GI/Abdominal Exam Additional comments: , soft, bowel sounds heard No guarding - Extremities Exam Additional comments: 1+ LE edema B/L - Neurological Exam responds only to painful stimuli Laboratory Results - last 72 hr 10/21/17 10/23/17 10/23/17 14:00 15:54 20:41 WBC RBC Hgb Hct MCV MCH MCHC RDW Plt Count MPV Neut % (Auto) Lymph % (Auto) [place] % (Auto) Eos % (Auto) Baso % (Auto) Neut # (Auto) Lymph # (Auto) [place] # (Auto) Eos # (Auto) Baso # (Auto) pCO2 pO2 HCO3 ABG pH ABG Total CO2 ABG O2 Saturation ABG O2 Content ABG Base Excess ABG Hemoglobin ABG Carboxyhemoglobin POC ABG HHb (Measured) ABG Methemoglobin ABG O2 Capacity Arnoldo Test ABG Potassium A-a O2 Difference Hgb O2 Saturation Glucose Lactate Vent Mode Mechanical Rate FiO2 Tidal Volume PEEP Sodium Potassium Chloride Carbon Dioxide Anion Gap BUN Creatinine Est GFR ( Amer) Est GFR (Non-Af Amer) POC Glucose (mg/dL) 195 H 190 H Random Glucose Calcium Magnesium Total Bilirubin AST ALT Alkaline Phosphatase Total Protein Albumin Globulin Albumin/Globulin Ratio Arterial Blood Potassium Vancomycin Trough C. difficile Tox B Gene Detected H 10/23/17 10/24/17 10/24/17 23:58 03:53 04:30 WBC RBC Hgb Hct MCV MCH MCHC RDW Plt Count MPV Neut % (Auto) Lymph % (Auto) [place] % (Auto) Eos % (Auto) Baso % (Auto) Neut # (Auto) Lymph # (Auto) [place] # (Auto) Eos # (Auto) Baso # (Auto) pCO2 pO2 HCO3 ABG pH ABG Total CO2 ABG O2 Saturation ABG O2 Content ABG Base Excess ABG Hemoglobin ABG Carboxyhemoglobin POC ABG HHb (Measured) ABG Methemoglobin ABG O2 Capacity Arnoldo Test ABG Potassium A-a O2 Difference Hgb O2 Saturation Glucose Lactate Vent Mode Mechanical Rate FiO2 Tidal Volume PEEP Sodium Potassium Chloride Carbon Dioxide Anion Gap BUN Creatinine Est GFR ( Amer) Est GFR (Non-Af Amer) POC Glucose (mg/dL) 265 H 257 H Random Glucose Calcium Magnesium Total Bilirubin AST ALT Alkaline Phosphatase Total Protein Albumin Globulin Albumin/Globulin Ratio Arterial Blood Potassium Vancomycin Trough 25.4 H C. difficile Tox B Gene 10/24/17 10/24/17 10/24/17 04:30 04:30 04:35 WBC 22.8 H RBC 3.43 L Hgb 9.2 L Hct 28.9 L MCV 84.2 MCH 26.8 L MCHC 31.8 L RDW 16.3 H Plt Count 249 MPV 7.1 L Neut % (Auto) 88.2 H Lymph % (Auto) 5.8 L [place] % (Auto) 5.9 Eos % (Auto) 0.1 Baso % (Auto) 0.0 Neut # (Auto) 20.1 H Lymph # (Auto) 1.3 [place] # (Auto) 1.3 H Eos # (Auto) 0.0 Baso # (Auto) 0.0 pCO2 36 pO2 195 H HCO3 27.1 ABG pH 7.47 H ABG Total CO2 27.3 ABG O2 Saturation 99.1 H ABG O2 Content ABG Base Excess 2.7 ABG Hemoglobin ABG Carboxyhemoglobin POC ABG HHb (Measured) ABG Methemoglobin ABG O2 Capacity Arnoldo Test Yes ABG Potassium 3.2 L A-a O2 Difference 45.0 Hgb O2 Saturation Glucose 267 H Lactate 2.0 Vent Mode A/c Mechanical Rate 12 FiO2 40.0 Tidal Volume 450 PEEP 5 Sodium 140 134.0 Potassium 3.4 L Chloride 97 L 103.0 Carbon Dioxide 25 Anion Gap 21 H BUN 44 H Creatinine 4.9 H Est GFR ( Amer) 10 Est GFR (Non-Af Amer) 9 POC Glucose (mg/dL) Random Glucose 234 H Calcium 7.6 L Magnesium 1.6 Total Bilirubin 0.3 AST 31 ALT 36 Alkaline Phosphatase 107 Total Protein 5.0 L Albumin 2.4 L Globulin 2.6 Albumin/Globulin Ratio 0.9 L Arterial Blood Potassium 3.2 L Vancomycin Trough C. difficile Tox B Gene 10/24/17 10/24/17 10/24/17 08:07 11:30 16:34 WBC RBC Hgb Hct MCV MCH MCHC RDW Plt Count MPV Neut % (Auto) Lymph % (Auto) [place] % (Auto) Eos % (Auto) Baso % (Auto) Neut # (Auto) Lymph # (Auto) [place] # (Auto) Eos # (Auto) Baso # (Auto) pCO2 pO2 HCO3 ABG pH ABG Total CO2 ABG O2 Saturation ABG O2 Content ABG Base Excess ABG Hemoglobin ABG Carboxyhemoglobin POC ABG HHb (Measured) ABG Methemoglobin ABG O2 Capacity Arnoldo Test ABG Potassium A-a O2 Difference Hgb O2 Saturation Glucose Lactate Vent Mode Mechanical Rate FiO2 Tidal Volume PEEP Sodium Potassium Chloride Carbon Dioxide Anion Gap BUN Creatinine Est GFR ( Amer) Est GFR (Non-Af Amer) POC Glucose (mg/dL) 185 H 268 H 253 H Random Glucose Calcium Magnesium Total Bilirubin AST ALT Alkaline Phosphatase Total Protein Albumin Globulin Albumin/Globulin Ratio Arterial Blood Potassium Vancomycin Trough C. difficile Tox B Gene 10/24/17 10/25/17 10/25/17 20:49 00:25 04:13 WBC RBC Hgb Hct MCV MCH MCHC RDW Plt Count MPV Neut % (Auto) Lymph % (Auto) [place] % (Auto) Eos % (Auto) Baso % (Auto) Neut # (Auto) Lymph # (Auto) [place] # (Auto) Eos # (Auto) Baso # (Auto) pCO2 pO2 HCO3 ABG pH ABG Total CO2 ABG O2 Saturation ABG O2 Content ABG Base Excess ABG Hemoglobin ABG Carboxyhemoglobin POC ABG HHb (Measured) ABG Methemoglobin ABG O2 Capacity Arnoldo Test ABG Potassium A-a O2 Difference Hgb O2 Saturation Glucose Lactate Vent Mode Mechanical Rate FiO2 Tidal Volume PEEP Sodium Potassium Chloride Carbon Dioxide Anion Gap BUN Creatinine Est GFR ( Amer) Est GFR (Non-Af Amer) POC Glucose (mg/dL) 243 H 249 H 146 H Random Glucose Calcium Magnesium Total Bilirubin AST ALT Alkaline Phosphatase Total Protein Albumin Globulin Albumin/Globulin Ratio Arterial Blood Potassium Vancomycin Trough C. difficile Tox B Gene 10/25/17 10/25/17 10/25/17 04:20 04:20 04:44 WBC 15.4 H RBC 3.22 L Hgb 8.5 L Hct 27.2 L MCV 84.7 MCH 26.6 L MCHC 31.4 L RDW 15.8 H Plt Count 175 MPV 7.5 Neut % (Auto) 77.0 H Lymph % (Auto) 14.6 L [place] % (Auto) 7.9 Eos % (Auto) 0.4 Baso % (Auto) 0.1 Neut # (Auto) 11.8 H Lymph # (Auto) 2.2 [place] # (Auto) 1.2 H Eos # (Auto) 0.1 Baso # (Auto) 0.0 pCO2 38 pO2 181 H HCO3 29.1 H ABG pH 7.49 H ABG Total CO2 30.2 H ABG O2 Saturation 99.3 H ABG O2 Content 12.3 L ABG Base Excess 5.3 H ABG Hemoglobin 8.7 L ABG Carboxyhemoglobin 0.6 POC ABG HHb (Measured) 0.7 ABG Methemoglobin 1.4 ABG O2 Capacity 12.4 L Arnoldo Test Yes ABG Potassium A-a O2 Difference 57.0 Hgb O2 Saturation 97.2 Glucose Lactate Vent Mode Ac Mechanical Rate 12 FiO2 40.0 Tidal Volume 450 PEEP 5 Sodium 139 Potassium 3.2 L Chloride 102 Carbon Dioxide 25 Anion Gap 15 BUN 52 H Creatinine 4.7 H Est GFR ( Amer) 11 Est GFR (Non-Af Amer) 9 POC Glucose (mg/dL) Random Glucose 118 H Calcium 7.5 L Magnesium Total Bilirubin 0.3 AST 22 ALT 34 Alkaline Phosphatase 93 Total Protein 4.6 L Albumin 2.1 L Globulin 2.5 Albumin/Globulin Ratio 0.9 L Arterial Blood Potassium Vancomycin Trough C. difficile Tox B Gene 10/25/17 10/25/17 10/25/17 07:57 11:14 17:32 WBC RBC Hgb Hct MCV MCH MCHC RDW Plt Count MPV Neut % (Auto) Lymph % (Auto) [place] % (Auto) Eos % (Auto) Baso % (Auto) Neut # (Auto) Lymph # (Auto) [place] # (Auto) Eos # (Auto) Baso # (Auto) pCO2 pO2 HCO3 ABG pH ABG Total CO2 ABG O2 Saturation ABG O2 Content ABG Base Excess ABG Hemoglobin ABG Carboxyhemoglobin POC ABG HHb (Measured) ABG Methemoglobin ABG O2 Capacity Arnoldo Test ABG Potassium A-a O2 Difference Hgb O2 Saturation Glucose Lactate Vent Mode Mechanical Rate FiO2 Tidal Volume PEEP Sodium Potassium Chloride Carbon Dioxide Anion Gap BUN Creatinine Est GFR ( Amer) Est GFR (Non-Af Amer) POC Glucose (mg/dL) 186 H 190 H 248 H Random Glucose Calcium Magnesium Total Bilirubin AST ALT Alkaline Phosphatase Total Protein Albumin Globulin Albumin/Globulin Ratio Arterial Blood Potassium Vancomycin Trough C. difficile Tox B Gene 10/25/17 10/26/17 10/26/17 20:00 00:17 04:25 WBC RBC Hgb Hct MCV MCH MCHC RDW Plt Count MPV Neut % (Auto) Lymph % (Auto) [place] % (Auto) Eos % (Auto) Baso % (Auto) Neut # (Auto) Lymph # (Auto) [place] # (Auto) Eos # (Auto) Baso # (Auto) pCO2 pO2 HCO3 ABG pH ABG Total CO2 ABG O2 Saturation ABG O2 Content ABG Base Excess ABG Hemoglobin ABG Carboxyhemoglobin POC ABG HHb (Measured) ABG Methemoglobin ABG O2 Capacity Arnoldo Test ABG Potassium A-a O2 Difference Hgb O2 Saturation Glucose Lactate Vent Mode Mechanical Rate FiO2 Tidal Volume PEEP Sodium Potassium Chloride Carbon Dioxide Anion Gap BUN Creatinine Est GFR ( Amer) Est GFR (Non-Af Amer) POC Glucose (mg/dL) 192 H 215 H 239 H Random Glucose Calcium Magnesium Total Bilirubin AST ALT Alkaline Phosphatase Total Protein Albumin Globulin Albumin/Globulin Ratio Arterial Blood Potassium Vancomycin Trough C. difficile Tox B Gene 10/26/17 10/26/17 10/26/17 04:30 04:30 04:45 WBC 14.0 H RBC 2.96 L Hgb 7.9 L Hct 25.3 L MCV 85.5 MCH 26.8 L MCHC 31.3 L RDW 16.1 H Plt Count 133 MPV Neut % (Auto) Lymph % (Auto) [place] % (Auto) Eos % (Auto) Baso % (Auto) Neut # (Auto) Lymph # (Auto) [place] # (Auto) Eos # (Auto) Baso # (Auto) pCO2 40 pO2 157 H HCO3 28.9 H ABG pH 7.47 H ABG Total CO2 30.3 H ABG O2 Saturation 100.4 H ABG O2 Content 11.4 L ABG Base Excess 5.0 H ABG Hemoglobin 8.0 L ABG Carboxyhemoglobin 1.4 POC ABG HHb (Measured) -0.4 L ABG Methemoglobin 0.5 ABG O2 Capacity 11.4 L Arnoldo Test Yes ABG Potassium A-a O2 Difference 78.0 Hgb O2 Saturation 98.5 H Glucose Lactate Vent Mode Prvc ac Mechanical Rate 12 FiO2 40.0 Tidal Volume 450 PEEP 5 Sodium 142 Potassium 3.2 L Chloride 104 Carbon Dioxide 26 Anion Gap 15 BUN 58 H Creatinine 4.5 H Est GFR ( Amer) 12 Est GFR (Non-Af Amer) 10 POC Glucose (mg/dL) Random Glucose 241 H Calcium 7.3 L Magnesium Total Bilirubin AST ALT Alkaline Phosphatase Total Protein Albumin Globulin Albumin/Globulin Ratio Arterial Blood Potassium Vancomycin Trough C. difficile Tox B Gene 10/26/17 10/26/17 07:55 11:30 WBC RBC Hgb Hct MCV MCH MCHC RDW Plt Count MPV Neut % (Auto) Lymph % (Auto) [place] % (Auto) Eos % (Auto) Baso % (Auto) Neut # (Auto) Lymph # (Auto) [place] # (Auto) Eos # (Auto) Baso # (Auto) pCO2 pO2 HCO3 ABG pH ABG Total CO2 ABG O2 Saturation ABG O2 Content ABG Base Excess ABG Hemoglobin ABG Carboxyhemoglobin POC ABG HHb (Measured) ABG Methemoglobin ABG O2 Capacity Arnoldo Test ABG Potassium A-a O2 Difference Hgb O2 Saturation Glucose Lactate Vent Mode Mechanical Rate FiO2 Tidal Volume PEEP Sodium Potassium Chloride Carbon Dioxide Anion Gap BUN Creatinine Est GFR ( Amer) Est GFR (Non-Af Amer) POC Glucose (mg/dL) 150 H 186 H Random Glucose Calcium Magnesium Total Bilirubin AST ALT Alkaline Phosphatase Total Protein Albumin Globulin Albumin/Globulin Ratio Arterial Blood Potassium Vancomycin Trough C. difficile Tox B Gene Microbiology 10/20/17 20:00 Blood Blood Culture - Final NO GROWTH AFTER 5 DAYS 10/20/17 20:00 Blood Gram Stain - Final TEST NOT PERFORMED 10/20/17 19:46 Blood Blood Culture - Final NO GROWTH AFTER 5 DAYS 10/20/17 19:46 Blood Gram Stain - Final TEST NOT PERFORMED 10/21/17 14:48 Blood-Venous Blood Culture - Preliminary NO GROWTH AFTER 4 DAYS 10/21/17 15:40 Blood-Venous Blood Culture - Preliminary NO GROWTH AFTER 4 DAYS 10/23/17 11:40 Urine,Clay Urine Culture - Final Yeast Species 10/20/17 10:30 Naris MRSA Culture (Admit) - Final MRSA NOT DETECTED Assessment and Plan (1) Acute on chronic renal failure Status: Acute (2) Metabolic acidosis Status: Resolved (3) Septic shock Status: Acute (4) UTI (urinary tract infection) Status: Acute (5) Hyperkalemia Status: Resolved - Assessment and Plan (Free Text) Assessment: A/P- 77 year old female with multiple medical conditions and noncomplaint including CKD stage 4, DM II, b/l ureteral stents ( repaced 09/2017) admitted with change in MS, lethargy found to be hyperkalemic, metabolic acidosis, acute on chronic renal insufficiency leukocytosis. anuric as per ER doc unable to insert clay and pus was noted . remains intubated off pressors blood cx- neg x 4 urine cx- yeast leukocytosis trending down stool c.diff- pos metabolic acidosis c.diff colitis leukocytosis acute on chronic renal failure s/p emergent HD fungurea plan- advise to continue with empiric IV meropenm day #7 (renal dose). continue with IV flagyl for c.diff colitis day #7. continue with vanco via NGT day #3. start IV fluconazole for fungurea . needs to have the ureteral stent removed once medically more stable. monitor temp and wbc closely. All labs and imaging results and chart notes reviewed. ICU time 50 minutes.
[2017-10-26] MEDS: Fluconazole IV 100mg/50 ml NS 50 ML IVPB SCH (16:16)
--- NOTE | 2017-10-26 22:23 | CP.PCM.PN ---
Subjective - Date & Time of Evaluation Date of Evaluation: 10/26/17 Time of Evaluation: 12:40 - Subjective Subjective: Patient having diarrhea; off sedation and more responsive today; Objective - Vital Signs/Intake and Output Vital Signs (last 24 hours): Temp Pulse Resp BP Pulse Ox 98.8 F 109 H 19 125/67 100 10/26/17 20:00 10/26/17 22:00 10/26/17 22:00 10/26/17 22:00 10/26/17 22:00 Intake and Output: 10/26/17 10/27/17 18:59 06:59 Intake Total 1260 165 Output Total 925 Balance 335 165 - Medications Medications: Current Medications Aspirin (Ecotrin) 81 mg PO DAILY [facility] Last Admin: 10/21/17 08:49 Dose: 81 mg Atorvastatin Calcium (Lipitor) 40 mg PO QPM [facility] Last Admin: 10/21/17 17:21 Dose: Not Given Dextrose (Dextrose 50% Inj) 0 ml IV STAT PRN; Protocol PRN Reason: Hypoglycemia Protocol Dextrose (Glutose 15) 0 gm PO ONCE PRN; Protocol PRN Reason: Hypoglycemia Protocol Dextrose (Dextrose 50% Inj) 0 ml IV STAT PRN; Protocol PRN Reason: Hypoglycemia Protocol Dextrose (Glutose 15) 0 gm PO ONCE PRN; Protocol PRN Reason: Hypoglycemia Protocol Epoetin Axel (Procrit) 10,000 unit SC MWF [facility] Last Admin: 10/25/17 12:22 Dose: 10,000 unit Glucagon (Glucagen Diagnostic Kit) 0 mg IM STAT PRN; Protocol PRN Reason: Hypoglycemia Protocol Glucagon (Glucagen Diagnostic Kit) 0 mg IM STAT PRN; Protocol PRN Reason: Hypoglycemia Protocol Heparin Sodium (Porcine) (Heparin) 5,000 units SC Q8 [facility] PRN Reason: Protocol Last Admin: 10/26/17 16:16 Dose: 5,000 units Meropenem 500 mg/ Sodium (Chloride) 100 mls @ 100 mls/hr IVPB Q8 [facility] PRN Reason: Protocol Last Admin: 10/26/17 16:18 Dose: 100 mls/hr Fluconazole (Diflucan Iv 100 Mg/50 Ml Ns) 50 mls @ 50 mls/hr IVPB DAILY [facility] PRN Reason: Protocol Last Admin: 10/26/17 16:16 Dose: 50 mls/hr Insulin Human Regular (Humulin R) 0 units SC Q4 [facility] PRN Reason: Protocol Last Admin: 10/26/17 20:20 Dose: Not Given Nystatin (Nystop Topical Powder) 1 applic TOP TID [facility] Last Admin: 10/26/17 16:19 Dose: 1 applic Pantoprazole Sodium (Protonix Inj) 40 mg IVP DAILY [facility] Last Admin: 10/26/17 09:31 Dose: 40 mg Silver Sulfadiazine (Silvadene 1% 20 Gm) 1 ea TOP DAILY [facility] Last Admin: 10/26/17 09:32 Dose: 1 each Vancomycin HCl (Vancocin (Oral/Rectal Use)) 250 mg NG Q8 [facility] PRN Reason: Protocol Last Admin: 10/26/17 16:19 Dose: 250 mg - Labs Labs: 10/26/17 04:30 10/26/17 04:30 PT 12.3 Seconds (9.8-13.1) 10/20/17 19:46 INR 1.1 (0.9-1.2) 10/20/17 19:46 APTT 33.2 Seconds (25.6-37.1) D 10/21/17 04:18 - Constitutional Appears: Non-toxic, No Acute Distress - Eye Exam Eye Exam: Normal appearance. absent: Scleral icterus - ENT Exam ENT Exam: Mucous Membranes Moist - Respiratory Exam Respiratory Exam: Clear to Ausculation Bilateral. absent: Rales, Respiratory Distress - Cardiovascular Exam Cardiovascular Exam: Tachycardia, +S1, +S2 - GI/Abdominal Exam GI & Abdominal Exam: Soft. absent: Tenderness - Exam Additional comments: mild bladder distention, clay in place draining urine - Back Exam Additional comments: no edema of lower ext, edematous b/l UE - Neurological Exam Additional comments: arousable to verbal stimuli - Psychiatric Exam Psychiatric exam: absent: Agitated - Skin Skin Exam: Warm. absent: Cyanosis Assessment and Plan (1) Acute renal failure Assessment & Plan: NINA on CKD IV; renal function improving, close to baseline; relatively stable electrolyte (mild hypokalemia noted) and volume status; no need for MANAGER CONTRACTING foreseen in the near future; -d/c femoral non-tunneled HD catheter (especially with patient having diarrhea) -maintain I>O -avoid nephrotoxic agents Status: Acute (2) Metabolic acidosis Status: Resolved (3) Hyperkalemia Status: Resolved (4) Septic shock Assessment & Plan: Much improved hemodynamic status with patient off all pressors; C diff positive ; still on meropenem; continue to dose abx for CrCl < 20 ml//min; Status: Acute (5) Anemia Assessment & Plan: Hgb dropping; continue EPO qMWF; Status: Acute
[2017-10-27] MEDS: Insulin Regular 100 units/ml SC SCH ×6 (00:16→20:19)
[2017-10-27] MEDS: Meropenem 500 MG in Sodium Chloride 0.9% 100 ML IVPB SCH ×3 (00:19→17:10)
[2017-10-27] MEDS: Vancomycin 500 mg (Oral/Rectal USE) NG SCH ×3 (00:20→17:13)
[2017-10-27 04:08] LABS: ABG ALLEN TEST YES; ARTERIAL BLOOD GAS HCO3 29.6 mmol/L (21-28); ARTERIAL BLOOD GAS O2 CAPACITY 12.7 mL/dL (16-24); ARTERIAL BLOOD GAS O2 CONTENT 12.6 ML/dL (15-23); ARTERIAL BLOOD GAS O2 SAT 99.1 % (95-98); ARTERIAL BLOOD GAS PCO2 38 mm/Hg (35-45); ARTERIAL BLOOD GAS PO2 146 mm/Hg (80-100); ARTERIAL BLOOD GAS TCO2 30.8 mmol/L (22-28)
[2017-10-27 05:33] LABS: BASO % 0.1 % (0.0-2.0); EOS # 0.3 K/uL (0.0-0.7); EOS % 2.1 % (0.0-4.0); HEMOGLOBIN 7.8 g/dL (12.0-16.0); LYMPH # 2.1 K/uL (1.0-4.3); LYMPH % 15.5 % (20.0-40.0); MEAN CELL VOLUME 85.4 fl (81.0-99.0); MEAN CORPUSCULAR HEMOGLOBIN 26.8 pg (27.0-31.0); MEAN CORPUSCULAR HGB CONC 31.4 g/dL (33.0-37.0); MEAN PLATELET VOLUME 8.8 fl (7.2-11.7); MONO # 1.2 K/uL (0.0-0.8); MONO % 8.9 % (0.0-10.0); NEUT # 9.9 K/uL (1.8-7.0); NEUT % 73.4 % (50.0-75.0); NRBC % 0.1 % (0.0-0.0); RBC 2.91 Mil/uL (3.80-5.20); RED CELL DISTRIBUTION WIDTH 16.2 % (11.5-14.5); WHITE BLOOD COUNT 13.5 K/uL (4.8-10.8)
[2017-10-27 05:40] LABS: CALCIUM 7.6 mg/dL (8.4-10.2)
[2017-10-27 07:17] LABS: IRON 19 ug/dL (37-170)
--- NOTE | 2017-10-27 07:23 | CP.PCM.PN ---
Addendum entered and electronically signed by Katelyn Pierce MD 10/27/17 13: 52: Patient demonstrated good tolerance to MV weans and SBTs, extubated, now mask ventilation. Original Note: <Katelyn Pierce - Last Filed: 10/27/17 13:51> Subjective - Date & Time of Evaluation Date of Evaluation: 10/27/17 Time of Evaluation: 07:00 - Subjective Subjective: ICU day 8 Patient seen and examined this morning, no overnight event. Remains intubated, less lethargic and arousable to pain. Afebrile. Objective - Vital Signs/Intake and Output Vital Signs (last 24 hours): Temp Pulse Resp BP Pulse Ox 98.2 F 118 H 25 H 148/75 100 10/27/17 04:00 10/27/17 05:53 10/27/17 05:53 10/27/17 05:53 10/27/17 05:53 Intake and Output: 10/27/17 10/27/17 06:59 18:59 Intake Total 810 Output Total 800 Balance 10 - Medications Medications: Current Medications Aspirin (Ecotrin) 81 mg PO DAILY [facility] Last Admin: 10/21/17 08:49 Dose: 81 mg Atorvastatin Calcium (Lipitor) 40 mg PO QPM [facility] Last Admin: 10/21/17 17:21 Dose: Not Given Dextrose (Dextrose 50% Inj) 0 ml IV STAT PRN; Protocol PRN Reason: Hypoglycemia Protocol Dextrose (Glutose 15) 0 gm PO ONCE PRN; Protocol PRN Reason: Hypoglycemia Protocol Dextrose (Dextrose 50% Inj) 0 ml IV STAT PRN; Protocol PRN Reason: Hypoglycemia Protocol Dextrose (Glutose 15) 0 gm PO ONCE PRN; Protocol PRN Reason: Hypoglycemia Protocol Epoetin Axel (Procrit) 10,000 unit SC MWF [facility] Last Admin: 10/25/17 12:22 Dose: 10,000 unit Glucagon (Glucagen Diagnostic Kit) 0 mg IM STAT PRN; Protocol PRN Reason: Hypoglycemia Protocol Glucagon (Glucagen Diagnostic Kit) 0 mg IM STAT PRN; Protocol PRN Reason: Hypoglycemia Protocol Heparin Sodium (Porcine) (Heparin) 5,000 units SC Q8 [facility] PRN Reason: Protocol Last Admin: 10/27/17 00:17 Dose: 5,000 units Meropenem 500 mg/ Sodium (Chloride) 100 mls @ 100 mls/hr IVPB Q8 [facility] PRN Reason: Protocol Last Admin: 10/27/17 00:19 Dose: 100 mls/hr Fluconazole (Diflucan Iv 100 Mg/50 Ml Ns) 50 mls @ 50 mls/hr IVPB DAILY [facility] PRN Reason: Protocol Last Admin: 10/26/17 16:16 Dose: 50 mls/hr Insulin Human Regular (Humulin R) 0 units SC Q4 [facility] PRN Reason: Protocol Last Admin: 10/27/17 04:20 Dose: 3 unit Nystatin (Nystop Topical Powder) 1 applic TOP TID [facility] Last Admin: 10/26/17 16:19 Dose: 1 applic Pantoprazole Sodium (Protonix Inj) 40 mg IVP DAILY [facility] Last Admin: 10/26/17 09:31 Dose: 40 mg Silver Sulfadiazine (Silvadene 1% 20 Gm) 1 ea TOP DAILY [facility] Last Admin: 10/26/17 09:32 Dose: 1 each Vancomycin HCl (Vancocin (Oral/Rectal Use)) 250 mg NG Q8 [facility] PRN Reason: Protocol Last Admin: 10/27/17 00:20 Dose: 250 mg - Labs Labs: 10/27/17 04:35 10/27/17 04:35 PT 12.3 Seconds (9.8-13.1) 10/20/17 19:46 INR 1.1 (0.9-1.2) 10/20/17 19:46 APTT 33.2 Seconds (25.6-37.1) D 10/21/17 04:18 - Constitutional Appears: Other (Awake, mild sedated but easy arousable, intubated on MV.) - Head Exam Head Exam: NORMAL INSPECTION - Eye Exam Eye Exam: EOMI, PERRL - ENT Exam ENT Exam: Mucous Membranes Moist - Respiratory Exam Respiratory Exam: Clear to Ausculation Bilateral - Cardiovascular Exam Cardiovascular Exam: Tachycardia, REGULAR RHYTHM, +S1, +S2 - GI/Abdominal Exam GI & Abdominal Exam: Soft, Normal Bowel Sounds. absent: Distended - Extremities Exam Additional comments: Edematous b/l UE and LE - Skin Additional comments: Sacrum: Purple localized DTI, non blanchable. R foot: localized erythema (DTI) in plantar aspect of great toe. L foot: Stage 2 pressure ulcer noted on medial aspect of heel. Assessment and Plan - Assessment and Plan (Free Text) Assessment: 77yo F with PMHx uncontrolled IDDM2, HTN, CKD4, Hydronephrosis s/p bilateral stenting, chronic kidney disease (Dialysis) admitted with septic shock. Plan: c/w IV abx (day 8). Off sedation and pressors. Prognosis guarded. Currently DNR 1- Septic shock, resolved - likely 2/2 due to infected ureteral stents - [employer] on consult, Recs appreciated - ID on board: broad spectrum antibiotics: Meropenem, Azithromycin, Metronidazole, parental vanco - Urology Dr Valentine consult placed, recs appreciated. - leukocytosis trending down 13.5 today - afebrile 2- Acute Kidney Injury on CKD, improving -BUN/Cr 65/4.2 -Nephro on board Dr. Garcia. Recs are appreciated: - HD on 10/23/2017 - showing signs of renal recovery - K 3.5 3- HAGMA: high anion gap metabolic acidosis, resolved -s/p bicarbonate drip -s/p HD 4- Anemia -H/H: 7.5/27.2 -FOBT + -T&S 5- H/O Hydronephrosis s/p bilateral stenting - likely infected and possible cause of sepsis - Urology on board Dr. Valentine recs appreciated - suggest bladder irrigation with sterile water once daily - no plan to remove stents for now. - pus noted in urine - urine cx w/ yeast species 6- Diverticulitis, +C diff. -c/w flagyl 7- Hypertension -Hold home BP meds for now 2/2 shock 8- Diabetes Mellitus type 2 -hold home PO meds -accucheck -insulin coverage by protocol -hypoglycemic protocol 9- Wound assessment - Ulcer present on Sacrum: Purple localized DTI, non blanchable, stable. - R foot: localized erythema (DTI) in plantar aspect of great toe and right heel resolving. - L foot: Stage 2 pressure ulcer noted on medial aspect of heel, stable. - Wound care on board 10- DVT prophylaxis -Heparin SC 11 - Code Status: DNR: Documentation reviewed: Status was discussed with family via Dr. Garcia and made aware by Dr. Mendes. Palliative care consulted. <Min Woody - Last Filed: 10/30/17 06:55> Objective - Vital Signs/Intake and Output Vital Signs (last 24 hours): Temp Pulse Resp BP Pulse Ox 98.9 F 90 15 131/78 100 10/30/17 04:00 10/30/17 06:00 10/30/17 06:00 10/30/17 06:00 10/30/17 06:00 Intake and Output: 10/29/17 10/30/17 18:59 06:59 Intake Total 1990 1000 Output Total 975 1300 Balance 1015 -300 - Medications Medications: Current Medications Aspirin (Ecotrin) 81 mg PO DAILY [facility] Last Admin: 10/21/17 08:49 Dose: 81 mg Atorvastatin Calcium (Lipitor) 40 mg PO QPM [facility] Last Admin: 10/21/17 17:21 Dose: Not Given Dextrose (Dextrose 50% Inj) 0 ml IV STAT PRN; Protocol PRN Reason: Hypoglycemia Protocol Dextrose (Glutose 15) 0 gm PO ONCE PRN; Protocol PRN Reason: Hypoglycemia Protocol Dextrose (Dextrose 50% Inj) 0 ml IV STAT PRN; Protocol PRN Reason: Hypoglycemia Protocol Dextrose (Glutose 15) 0 gm PO ONCE PRN; Protocol PRN Reason: Hypoglycemia Protocol Epoetin Axel (Procrit) 10,000 unit SC MWF [facility] Last Admin: 10/27/17 09:52 Dose: 10,000 unit Ergocalciferol (Drisdol 50,000 Intl Units Cap) 1 cap PO Q7D [facility] Last Admin: 10/28/17 14:06 Dose: 1 cap Glucagon (Glucagen Diagnostic Kit) 0 mg IM STAT PRN; Protocol PRN Reason: Hypoglycemia Protocol Glucagon (Glucagen Diagnostic Kit) 0 mg IM STAT PRN; Protocol PRN Reason: Hypoglycemia Protocol Heparin Sodium (Porcine) (Heparin) 5,000 units SC Q8 [facility] PRN Reason: Protocol Last Admin: 10/30/17 00:07 Dose: 5,000 units Meropenem 500 mg/ Sodium (Chloride) 100 mls @ 100 mls/hr IVPB Q8 [facility] PRN Reason: Protocol Last Admin: 10/30/17 00:06 Dose: 100 mls/hr Fluconazole (Diflucan Iv 100 Mg/50 Ml Ns) 50 mls @ 50 mls/hr IVPB DAILY [facility] PRN Reason: Protocol Last Admin: 10/29/17 09:37 Dose: 50 mls/hr Iron Sucrose 100 mg/ Sodium (Chloride) 105 mls @ 105 mls/hr IVPB DAILY [facility] Stop: 11/06/17 09:59 Last Admin: 10/29/17 10:30 Dose: 105 mls/hr Insulin Human Regular (Humulin R) 0 units SC ACHS [facility] PRN Reason: Protocol Last Admin: 10/30/17 06:30 Dose: 1 u Nystatin (Nystop Topical Powder) 1 applic TOP TID [facility] Last Admin: 10/29/17 16:04 Dose: 1 applic Pantoprazole Sodium (Protonix Inj) 40 mg IVP DAILY [facility] Last Admin: 10/29/17 08:36 Dose: 40 mg Silver Sulfadiazine (Silvadene 1% 50 Gm) 1 applic TOP DAILY [facility] Vancomycin HCl (Vancocin (Oral/Rectal Use)) 250 mg PO Q8 [facility] PRN Reason: Protocol Last Admin: 10/30/17 00:06 Dose: 250 mg - Labs Labs: 10/29/17 14:52 10/29/17 14:52 PT 12.3 Seconds (9.8-13.1) 10/20/17 19:46 INR 1.1 (0.9-1.2) 10/20/17 19:46 APTT 33.2 Seconds (25.6-37.1) D 10/21/17 04:18 Attending/Attestation - Attestation I have personally seen and examined this patient.: Yes I have fully participated in the care of the patient.: Yes I have reviewed all pertinent clinical information, including history, physical exam and plan: Yes
[2017-10-27 07:33] LABS: % IRON SATURATION 14 % (20-55); TOTAL IRON BINDING CAPACITY 136 ug/dL (250-450)
--- NOTE | 2017-10-27 07:40 | CP.CCUPN ---
CCU Subjective - Physician Review Subjective (Free Text): Remains lethargic, arousable to vigourous stimulation and pain, no sustained wakefulness. Other Vitals and I/Os reviewed. ROS: No other pertinent negs or positives on 10+ system review unobtainable- intubated and sedated. PMSFH: All other Nursing and physician documentation reviewed to date; no new pertinent info noted relevant to current medical problems. EXAM- HEENT: no icterus, no gaze preference, pupils equal and reactive, no icterus NECK: No JVD, supple, carotids equal upstroke bilat/no bruits CHEST: decreased BS bases, no wheezes audible HEART: regular distant, S1S2, no rubs. ABD: soft, mild distention, no tympany, no palp tenderness, BS hypoactive. EXT: trace edema bilat. No peripheral/ digital cyanosis, no calf tenderness or palpable cords, distal pulses intact and symmetrical. NEURO: decreased tone in all extremties SKIN: no rashes, warm and dry. LABS: ABG 7.50/38/146 WBC= 13.5 HGB= 7.8 PLTs= 139K Na= 145 K= 3.5 CL= 106 HCO3= 28 BUN/Cr= 65/4.2 BS= 240 CXR: Left hemidiphragm not visible. ETT position OK; essentially no overall change last 72H ( my interp) IMPRESSION / MAJOR PROBLEMS NOW: 1. Acute Resp Insuff on MV support due to Severe Sepsis with Shock and metabolic encephalopathy with Uremia. 2. Urosepsis with Septic Shock 3. NINA / ATN on CKD IV 4. Chronic Disease Anemia 5. Uncontrolled DM II with possible DKA on admission PLAN: 1. Stopped sedation entirely 48H ago, and expect prolonged elimination of Midazolam due to existing CKD. If abnormal or not awakening in an appropriate manner, consider repeat CT Brain. 2. day # 8 on MV support. SBT trial initiated today, CPAP PS as tolerated. 3. Lowered fiO2 further to 35- 30% as tolerated. 4. Empiric abx coverage ongoing as per ID: enteral Vanco/ Sylvia. + yeast in urine, to undergo bladder irrigation. 5. Urology advice reviewed; ureteral stents remain. No organisms isolated. 6. See orders. CCU Objective - Vital Signs / Intake & Output Vital Signs (Last 4 hours): Vital Signs Temp Pulse Resp BP Pulse Ox 10/27/17 05:53 118 H 25 H 148/75 100 10/27/17 04:00 98.2 F 107 H 16 142/74 100 Intake and Output (Last 8hrs): Intake & Output 10/26/17 10/27/17 10/27/17 22:59 06:59 14:59 Intake Total 975 645 Output Total 925 800 Balance 50 -155 Weight 196 lb Intake: Intake, Piggyback 150 100 Tube Feeding 825 495 Free Water Flush 50 Output: Urine 900 800 Urethral ([place]) 800 Urine, Voided 900 Stool 25 Other: # Bowel Movements 1 1
--- NOTE | 2017-10-27 09:25 | RAD ---
HISTORY: intubated COMPARISON: Chest radiograph dated 10/26/2017. FINDINGS: LUNGS: Pulmonary vascular congestion, bibasilar atelectasis. PLEURA: No significant pleural effusion identified, no pneumothorax apparent. CARDIOVASCULAR: Atherosclerotic aortic calcifications. Cardiomediastinal silhouette unchanged. OSSEOUS STRUCTURES: Unchanged. VISUALIZED UPPER ABDOMEN: Lucency along the inferior cardiac border. OTHER FINDINGS: Endotracheal and enteric tubes, unchanged. Right internal jugular access central venous catheter, unchanged. . IMPRESSION: Lucency along the inferior cardiac border may represent pneumopericardium versus pneumoperitoneum versus skin fold. Findings conveyed to Dr. Judge by Dr. Butts at 9:15 a.m. on 10/27/2017.
[2017-10-27] MEDS: Fluconazole IV 100mg/50 ml NS 50 ML IVPB SCH (09:46)
[2017-10-27] MEDS: Silver Sulfadiazine 1% Cream (20 gm) TOP SCH (09:49)
[2017-10-27] MEDS: EPOETIN ALFA 10,000 UNIT/ML ML SC SCH (09:52)
--- NOTE | 2017-10-27 13:51 | PCM.PROC ---
Procedures Attestation:: I certify that I have explained the specified Operation(s) or Procedure(s), risks, benefits and reasonable alternatives to the Patient and/or other person responsible. The opportunity was given to ask questions and all questions answered - Extubation RSBI Score: 78 Clinical Parameters: Resolution/Stabilization of disease process, Hemodynamically Stable, Intact Cough/Gag Reflex, Spontaneous Respirations, Acceptable Vent Settings (FIO2<50%, PEEP<8, PaO2>75, pH>7.25) Weaning Criteria Met: Yes General Weaning Approaches: Pressure Support Ventilation (PSV) Weaning Patient Condition: Patient has been successfully extubated and assessed Oxygen Therapy: O2 via Venti Mask Patient Tolerated Procedure: Well, No Complications Additional Comments: Stable spontaneous respiratory pattern without immediate stridor after removal of ETT and OGT.
--- NOTE | 2017-10-27 14:23 | RAD ---
HISTORY: f/u r/o free air COMPARISON: Chest radiograph performed approximately 9.5 prior FINDINGS: LUNGS: Pulmonary vascular congestion, bibasilar atelectasis. PLEURA: No significant pleural effusion identified, no pneumothorax apparent. CARDIOVASCULAR: Atherosclerotic aortic calcifications. Cardiomediastinal silhouette unchanged. OSSEOUS STRUCTURES: Unchanged. VISUALIZED UPPER ABDOMEN: Previously described lucency along the inferior cardiac border not appreciated on the current examination. OTHER FINDINGS: Right internal jugular access central venous catheter, unchanged. IMPRESSION: Previously described lucency along the inferior cardiac border not appreciated on the current examination. No other significant interval change.
--- NOTE | 2017-10-27 14:38 | CP.PCM.PN ---
Subjective - Date & Time of Evaluation Date of Evaluation: 10/27/17 Time of Evaluation: 14:38 - Subjective Subjective: ID note- Pt. seen and examined today in ICU. s/p extubation is on ventimask now. more alert and opens her eyes when her name is called. Objective - Vital Signs/Intake and Output Vital Signs (last 24 hours): Temp Pulse Resp BP Pulse Ox 101.5 F H 115 H 15 132/68 100 10/27/17 08:00 10/27/17 08:00 10/27/17 08:00 10/27/17 08:00 10/27/17 08:00 Intake and Output: 10/27/17 10/27/17 06:59 18:59 Intake Total 810 485 Output Total 800 480 Balance 10 5 - Medications Medications: Current Medications Aspirin (Ecotrin) 81 mg PO DAILY [facility] Last Admin: 10/21/17 08:49 Dose: 81 mg Atorvastatin Calcium (Lipitor) 40 mg PO QPM [facility] Last Admin: 10/21/17 17:21 Dose: Not Given Dextrose (Dextrose 50% Inj) 0 ml IV STAT PRN; Protocol PRN Reason: Hypoglycemia Protocol Dextrose (Glutose 15) 0 gm PO ONCE PRN; Protocol PRN Reason: Hypoglycemia Protocol Dextrose (Dextrose 50% Inj) 0 ml IV STAT PRN; Protocol PRN Reason: Hypoglycemia Protocol Dextrose (Glutose 15) 0 gm PO ONCE PRN; Protocol PRN Reason: Hypoglycemia Protocol Epoetin Axel (Procrit) 10,000 unit SC MWF [facility] Last Admin: 10/27/17 09:52 Dose: 10,000 unit Glucagon (Glucagen Diagnostic Kit) 0 mg IM STAT PRN; Protocol PRN Reason: Hypoglycemia Protocol Glucagon (Glucagen Diagnostic Kit) 0 mg IM STAT PRN; Protocol PRN Reason: Hypoglycemia Protocol Heparin Sodium (Porcine) (Heparin) 5,000 units SC Q8 [facility] PRN Reason: Protocol Last Admin: 10/27/17 09:53 Dose: 5,000 units Meropenem 500 mg/ Sodium (Chloride) 100 mls @ 100 mls/hr IVPB Q8 [facility] PRN Reason: Protocol Last Admin: 10/27/17 09:46 Dose: 100 mls/hr Fluconazole (Diflucan Iv 100 Mg/50 Ml Ns) 50 mls @ 50 mls/hr IVPB DAILY [facility] PRN Reason: Protocol Last Admin: 10/27/17 09:46 Dose: 50 mls/hr Insulin Human Regular (Humulin R) 0 units SC Q4 [facility] PRN Reason: Protocol Last Admin: 10/27/17 12:51 Dose: 1 unit Nystatin (Nystop Topical Powder) 1 applic TOP TID [facility] Last Admin: 10/27/17 12:52 Dose: 1 applic Pantoprazole Sodium (Protonix Inj) 40 mg IVP DAILY [facility] Last Admin: 10/27/17 09:49 Dose: 40 mg Silver Sulfadiazine (Silvadene 1% 20 Gm) 1 ea TOP DAILY [facility] Last Admin: 10/27/17 09:49 Dose: 1 each Vancomycin HCl (Vancocin (Oral/Rectal Use)) 250 mg NG Q8 [facility] PRN Reason: Protocol Last Admin: 10/27/17 09:51 Dose: 250 mg - Labs Labs: - Additional Findings Additional findings: - Constitutional Appears: Chronically Ill Additional comments: [email or web address] is on ventimask - Head Exam Head Exam: ATRAUMATIC - Respiratory Exam Additional comments: breath sounds heard b/l decreased at bases - Cardiovascular Exam Cardiovascular Exam: RRR, +S1, +S2 - GI/Abdominal Exam Additional comments: , soft, bowel sounds heard No guarding - Extremities Exam Additional comments: 1+ LE edema B/L - Neurological Exam much more awake today Laboratory Results - last 72 hr 10/21/17 10/24/17 10/24/17 14:00 16:34 20:49 WBC RBC Hgb Hct MCV MCH MCHC RDW Plt Count MPV Neut % (Auto) Lymph % (Auto) [place] % (Auto) Eos % (Auto) Baso % (Auto) Neut # (Auto) Lymph # (Auto) [place] # (Auto) Eos # (Auto) Baso # (Auto) pCO2 pO2 HCO3 ABG pH ABG Total CO2 ABG O2 Saturation ABG O2 Content ABG Base Excess ABG Hemoglobin ABG Carboxyhemoglobin POC ABG HHb (Measured) ABG Methemoglobin ABG O2 Capacity Arnoldo Test A-a O2 Difference Hgb O2 Saturation Vent Mode Mechanical Rate FiO2 Tidal Volume PEEP Sodium Potassium Chloride Carbon Dioxide Anion Gap BUN Creatinine Est GFR ( Amer) Est GFR (Non-Af Amer) POC Glucose (mg/dL) 253 H 243 H Random Glucose Calcium Iron TIBC % Saturation Ferritin Total Bilirubin AST ALT Alkaline Phosphatase Total Protein Albumin Globulin Albumin/Globulin Ratio 25-OH Vitamin D Total C. difficile Tox B Gene Detected H 10/25/17 10/25/17 10/25/17 00:25 04:13 04:20 WBC 15.4 H RBC 3.22 L Hgb 8.5 L Hct 27.2 L MCV 84.7 MCH 26.6 L MCHC 31.4 L RDW 15.8 H Plt Count 175 MPV 7.5 Neut % (Auto) 77.0 H Lymph % (Auto) 14.6 L [place] % (Auto) 7.9 Eos % (Auto) 0.4 Baso % (Auto) 0.1 Neut # (Auto) 11.8 H Lymph # (Auto) 2.2 [place] # (Auto) 1.2 H Eos # (Auto) 0.1 Baso # (Auto) 0.0 pCO2 pO2 HCO3 ABG pH ABG Total CO2 ABG O2 Saturation ABG O2 Content ABG Base Excess ABG Hemoglobin ABG Carboxyhemoglobin POC ABG HHb (Measured) ABG Methemoglobin ABG O2 Capacity Arnoldo Test A-a O2 Difference Hgb O2 Saturation Vent Mode Mechanical Rate FiO2 Tidal Volume PEEP Sodium Potassium Chloride Carbon Dioxide Anion Gap BUN Creatinine Est GFR ( Amer) Est GFR (Non-Af Amer) POC Glucose (mg/dL) 249 H 146 H Random Glucose Calcium Iron TIBC % Saturation Ferritin Total Bilirubin AST ALT Alkaline Phosphatase Total Protein Albumin Globulin Albumin/Globulin Ratio 25-OH Vitamin D Total C. difficile Tox B Gene 10/25/17 10/25/17 10/25/17 04:20 04:44 07:57 WBC RBC Hgb Hct MCV MCH MCHC RDW Plt Count MPV Neut % (Auto) Lymph % (Auto) [place] % (Auto) Eos % (Auto) Baso % (Auto) Neut # (Auto) Lymph # (Auto) [place] # (Auto) Eos # (Auto) Baso # (Auto) pCO2 38 pO2 181 H HCO3 29.1 H ABG pH 7.49 H ABG Total CO2 30.2 H ABG O2 Saturation 99.3 H ABG O2 Content 12.3 L ABG Base Excess 5.3 H ABG Hemoglobin 8.7 L ABG Carboxyhemoglobin 0.6 POC ABG HHb (Measured) 0.7 ABG Methemoglobin 1.4 ABG O2 Capacity 12.4 L Arnoldo Test Yes A-a O2 Difference 57.0 Hgb O2 Saturation 97.2 Vent Mode Ac Mechanical Rate 12 FiO2 40.0 Tidal Volume 450 PEEP 5 Sodium 139 Potassium 3.2 L Chloride 102 Carbon Dioxide 25 Anion Gap 15 BUN 52 H Creatinine 4.7 H Est GFR ( Amer) 11 Est GFR (Non-Af Amer) 9 POC Glucose (mg/dL) 186 H Random Glucose 118 H Calcium 7.5 L Iron TIBC % Saturation Ferritin Total Bilirubin 0.3 AST 22 ALT 34 Alkaline Phosphatase 93 Total Protein 4.6 L Albumin 2.1 L Globulin 2.5 Albumin/Globulin Ratio 0.9 L 25-OH Vitamin D Total C. difficile Tox B Gene 10/25/17 10/25/17 10/25/17 11:14 17:32 20:00 WBC RBC Hgb Hct MCV MCH MCHC RDW Plt Count MPV Neut % (Auto) Lymph % (Auto) [place] % (Auto) Eos % (Auto) Baso % (Auto) Neut # (Auto) Lymph # (Auto) [place] # (Auto) Eos # (Auto) Baso # (Auto) pCO2 pO2 HCO3 ABG pH ABG Total CO2 ABG O2 Saturation ABG O2 Content ABG Base Excess ABG Hemoglobin ABG Carboxyhemoglobin POC ABG HHb (Measured) ABG Methemoglobin ABG O2 Capacity Arnoldo Test A-a O2 Difference Hgb O2 Saturation Vent Mode Mechanical Rate FiO2 Tidal Volume PEEP Sodium Potassium Chloride Carbon Dioxide Anion Gap BUN Creatinine Est GFR ( Amer) Est GFR (Non-Af Amer) POC Glucose (mg/dL) 190 H 248 H 192 H Random Glucose Calcium Iron TIBC % Saturation Ferritin Total Bilirubin AST ALT Alkaline Phosphatase Total Protein Albumin Globulin Albumin/Globulin Ratio 25-OH Vitamin D Total C. difficile Tox B Gene 10/26/17 10/26/17 10/26/17 00:17 04:25 04:30 WBC 14.0 H RBC 2.96 L Hgb 7.9 L Hct 25.3 L MCV 85.5 MCH 26.8 L MCHC 31.3 L RDW 16.1 H Plt Count 133 MPV Neut % (Auto) Lymph % (Auto) [place] % (Auto) Eos % (Auto) Baso % (Auto) Neut # (Auto) Lymph # (Auto) [place] # (Auto) Eos # (Auto) Baso # (Auto) pCO2 pO2 HCO3 ABG pH ABG Total CO2 ABG O2 Saturation ABG O2 Content ABG Base Excess ABG Hemoglobin ABG Carboxyhemoglobin POC ABG HHb (Measured) ABG Methemoglobin ABG O2 Capacity Arnoldo Test A-a O2 Difference Hgb O2 Saturation Vent Mode Mechanical Rate FiO2 Tidal Volume PEEP Sodium Potassium Chloride Carbon Dioxide Anion Gap BUN Creatinine Est GFR ( Amer) Est GFR (Non-Af Amer) POC Glucose (mg/dL) 215 H 239 H Random Glucose Calcium Iron TIBC % Saturation Ferritin Total Bilirubin AST ALT Alkaline Phosphatase Total Protein Albumin Globulin Albumin/Globulin Ratio 25-OH Vitamin D Total C. difficile Tox B Gene 10/26/17 10/26/17 10/26/17 04:30 04:45 07:55 WBC RBC Hgb Hct MCV MCH MCHC RDW Plt Count MPV Neut % (Auto) Lymph % (Auto) [place] % (Auto) Eos % (Auto) Baso % (Auto) Neut # (Auto) Lymph # (Auto) [place] # (Auto) Eos # (Auto) Baso # (Auto) pCO2 40 pO2 157 H HCO3 28.9 H ABG pH 7.47 H ABG Total CO2 30.3 H ABG O2 Saturation 100.4 H ABG O2 Content 11.4 L ABG Base Excess 5.0 H ABG Hemoglobin 8.0 L ABG Carboxyhemoglobin 1.4 POC ABG HHb (Measured) -0.4 L ABG Methemoglobin 0.5 ABG O2 Capacity 11.4 L Arnoldo Test Yes A-a O2 Difference 78.0 Hgb O2 Saturation 98.5 H Vent Mode Prvc ac Mechanical Rate 12 FiO2 40.0 Tidal Volume 450 PEEP 5 Sodium 142 Potassium 3.2 L Chloride 104 Carbon Dioxide 26 Anion Gap 15 BUN 58 H Creatinine 4.5 H Est GFR ( Amer) 12 Est GFR (Non-Af Amer) 10 POC Glucose (mg/dL) 150 H Random Glucose 241 H Calcium 7.3 L Iron TIBC % Saturation Ferritin Total Bilirubin AST ALT Alkaline Phosphatase Total Protein Albumin Globulin Albumin/Globulin Ratio 25-OH Vitamin D Total C. difficile Tox B Gene 10/26/17 10/26/17 10/26/17 11:30 15:59 20:01 WBC RBC Hgb Hct MCV MCH MCHC RDW Plt Count MPV Neut % (Auto) Lymph % (Auto) [place] % (Auto) Eos % (Auto) Baso % (Auto) Neut # (Auto) Lymph # (Auto) [place] # (Auto) Eos # (Auto) Baso # (Auto) pCO2 pO2 HCO3 ABG pH ABG Total CO2 ABG O2 Saturation ABG O2 Content ABG Base Excess ABG Hemoglobin ABG Carboxyhemoglobin POC ABG HHb (Measured) ABG Methemoglobin ABG O2 Capacity Arnoldo Test A-a O2 Difference Hgb O2 Saturation Vent Mode Mechanical Rate FiO2 Tidal Volume PEEP Sodium Potassium Chloride Carbon Dioxide Anion Gap BUN Creatinine Est GFR ( Amer) Est GFR (Non-Af Amer) POC Glucose (mg/dL) 186 H 256 H 190 H Random Glucose Calcium Iron TIBC % Saturation Ferritin Total Bilirubin AST ALT Alkaline Phosphatase Total Protein Albumin Globulin Albumin/Globulin Ratio 25-OH Vitamin D Total C. difficile Tox B Gene 10/27/17 10/27/17 10/27/17 00:13 03:49 04:19 WBC RBC Hgb Hct MCV MCH MCHC RDW Plt Count MPV Neut % (Auto) Lymph % (Auto) [place] % (Auto) Eos % (Auto) Baso % (Auto) Neut # (Auto) Lymph # (Auto) [place] # (Auto) Eos # (Auto) Baso # (Auto) pCO2 38 pO2 146 H HCO3 29.6 H ABG pH 7.50 H ABG Total CO2 30.8 H ABG O2 Saturation 99.1 H ABG O2 Content 12.6 L ABG Base Excess 6.0 H ABG Hemoglobin 9.0 L ABG Carboxyhemoglobin 0.8 POC ABG HHb (Measured) 0.9 ABG Methemoglobin 1.3 ABG O2 Capacity 12.7 L Arnoldo Test Yes A-a O2 Difference 56.0 Hgb O2 Saturation 97.0 Vent Mode A/c Mechanical Rate 12 FiO2 35.0 Tidal Volume 450 PEEP 5 Sodium Potassium Chloride Carbon Dioxide Anion Gap BUN Creatinine Est GFR ( Amer) Est GFR (Non-Af Amer) POC Glucose (mg/dL) 223 H 254 H Random Glucose Calcium Iron TIBC % Saturation Ferritin Total Bilirubin AST ALT Alkaline Phosphatase Total Protein Albumin Globulin Albumin/Globulin Ratio 25-OH Vitamin D Total C. difficile Tox B Gene 10/27/17 10/27/17 10/27/17 04:35 04:35 07:04 WBC 13.5 H RBC 2.91 L Hgb 7.8 L Hct 24.8 L MCV 85.4 MCH 26.8 L MCHC 31.4 L RDW 16.2 H Plt Count 139 MPV 8.8 Neut % (Auto) 73.4 Lymph % (Auto) 15.5 L [place] % (Auto) 8.9 Eos % (Auto) 2.1 Baso % (Auto) 0.1 Neut # (Auto) 9.9 H Lymph # (Auto) 2.1 [place] # (Auto) 1.2 H Eos # (Auto) 0.3 Baso # (Auto) 0.0 pCO2 pO2 HCO3 ABG pH ABG Total CO2 ABG O2 Saturation ABG O2 Content ABG Base Excess ABG Hemoglobin ABG Carboxyhemoglobin POC ABG HHb (Measured) ABG Methemoglobin ABG O2 Capacity Arnoldo Test A-a O2 Difference Hgb O2 Saturation Vent Mode Mechanical Rate FiO2 Tidal Volume PEEP Sodium 145 Potassium 3.5 L Chloride 106 Carbon Dioxide 28 Anion Gap 15 BUN 65 H Creatinine 4.2 H Est GFR ( Amer) 12 Est GFR (Non-Af Amer) 10 POC Glucose (mg/dL) Random Glucose 240 H Calcium 7.6 L Iron TIBC % Saturation Ferritin Total Bilirubin AST ALT Alkaline Phosphatase Total Protein Albumin Globulin Albumin/Globulin Ratio 25-OH Vitamin D Total < 12.8 L C. difficile Tox B Gene 10/27/17 10/27/17 10/27/17 07:04 07:04 08:01 WBC RBC Hgb Hct MCV MCH MCHC RDW Plt Count MPV Neut % (Auto) Lymph % (Auto) [place] % (Auto) Eos % (Auto) Baso % (Auto) Neut # (Auto) Lymph # (Auto) [place] # (Auto) Eos # (Auto) Baso # (Auto) pCO2 pO2 HCO3 ABG pH ABG Total CO2 ABG O2 Saturation ABG O2 Content ABG Base Excess ABG Hemoglobin ABG Carboxyhemoglobin POC ABG HHb (Measured) ABG Methemoglobin ABG O2 Capacity Arnoldo Test A-a O2 Difference Hgb O2 Saturation Vent Mode Mechanical Rate FiO2 Tidal Volume PEEP Sodium Potassium Chloride Carbon Dioxide Anion Gap BUN Creatinine Est GFR ( Amer) Est GFR (Non-Af Amer) POC Glucose (mg/dL) 171 H Random Glucose Calcium Iron 19 L TIBC 136 L % Saturation 14 L Ferritin 629.0 H Total Bilirubin AST ALT Alkaline Phosphatase Total Protein Albumin Globulin Albumin/Globulin Ratio 25-OH Vitamin D Total C. difficile Tox B Gene 10/27/17 12:46 WBC RBC Hgb Hct MCV MCH MCHC RDW Plt Count MPV Neut % (Auto) Lymph % (Auto) [place] % (Auto) Eos % (Auto) Baso % (Auto) Neut # (Auto) Lymph # (Auto) [place] # (Auto) Eos # (Auto) Baso # (Auto) pCO2 pO2 HCO3 ABG pH ABG Total CO2 ABG O2 Saturation ABG O2 Content ABG Base Excess ABG Hemoglobin ABG Carboxyhemoglobin POC ABG HHb (Measured) ABG Methemoglobin ABG O2 Capacity Arnoldo Test A-a O2 Difference Hgb O2 Saturation Vent Mode Mechanical Rate FiO2 Tidal Volume PEEP Sodium Potassium Chloride Carbon Dioxide Anion Gap BUN Creatinine Est GFR ( Amer) Est GFR (Non-Af Amer) POC Glucose (mg/dL) 164 H Random Glucose Calcium Iron TIBC % Saturation Ferritin Total Bilirubin AST ALT Alkaline Phosphatase Total Protein Albumin Globulin Albumin/Globulin Ratio 25-OH Vitamin D Total C. difficile Tox B Gene Microbiology 10/21/17 14:48 Blood-Venous Blood Culture - Final NO GROWTH AFTER 5 DAYS 10/21/17 14:48 Blood-Venous Gram Stain - Final TEST NOT PERFORMED 10/21/17 15:40 Blood-Venous Blood Culture - Final NO GROWTH AFTER 5 DAYS 10/21/17 15:40 Blood-Venous Gram Stain - Final TEST NOT PERFORMED 10/20/17 20:00 Blood Blood Culture - Final NO GROWTH AFTER 5 DAYS 10/20/17 20:00 Blood Gram Stain - Final TEST NOT PERFORMED 10/20/17 19:46 Blood Blood Culture - Final NO GROWTH AFTER 5 DAYS 10/20/17 19:46 Blood Gram Stain - Final TEST NOT PERFORMED 10/23/17 11:40 Urine,[place] Urine Culture - Final Yeast Species 10/20/17 10:30 Naris MRSA Culture (Admit) - Final MRSA NOT DETECTED Accession No. : [id number] Patient Name / ID : SUMMER DHILLON / [id number] Exam Date : 10/27/2017 14:03:05 ( Approved ) Study Comment : Sex / Age : F / 77Y Creator : Jam Jones MD Dictator : Jam Jones MD Bike Mechanic : Fur Buyer : Mak Jonesl K. MD Approver2 : Report Date : 10/27/2017 14:17:04 My Comment : HISTORY: f/u r/o free air COMPARISON: Chest radiograph performed approximately 9.5 prior FINDINGS: LUNGS: Pulmonary vascular congestion, bibasilar atelectasis. PLEURA: No significant pleural effusion identified, no pneumothorax apparent. CARDIOVASCULAR: Atherosclerotic aortic calcifications. Cardiomediastinal silhouette unchanged. OSSEOUS STRUCTURES: Unchanged. VISUALIZED UPPER ABDOMEN: Previously described lucency along the inferior cardiac border not appreciated on the current examination. OTHER FINDINGS: Right internal jugular access central venous catheter, unchanged. IMPRESSION: Previously described lucency along the inferior cardiac border not appreciated on the current examination. No other significant interval change. Assessment and Plan (1) Acute on chronic renal failure Status: Acute (2) Metabolic acidosis Status: Resolved (3) Septic shock Status: Acute (4) UTI (urinary tract infection) Status: Acute (5) Hyperkalemia Status: Resolved - Assessment and Plan (Free Text) Assessment: /P- 77 year old female with multiple medical conditions and noncomplaint including CKD stage 4, DM II, b/l ureteral stents ( repaced 09/2017) admitted with change in MS, lethargy was found to be hyperkalemic, metabolic acidosis, acute on chronic renal insufficiency and leukocytosis. clinically much improved. s/p extubation today. off pressors blood cx- neg x 4 urine cx- yeast leukocytosis trending down stool c.diff- pos metabolic acidosis c.diff colitis leukocytosis - much better acute on chronic renal failure s/p emergent HD fungurea plan- advise to continue with empiric IV meropenm day #8 (renal dose). continue with IV flagyl for c.diff colitis day #8. continue with vanco via NGT day #5.. continue with IV fluconazole for fungurea day #2. needs to have the ureteral stent removed once medically more stable. monitor temp and wbc closely. All labs and imaging results and chart notes reviewed. ICU time 45 minutes.
--- NOTE | 2017-10-27 22:53 | CP.PCM.PN ---
Subjective - Date & Time of Evaluation Date of Evaluation: 10/27/17 Time of Evaluation: 10:15 - Subjective Subjective: Patient seen before extubation; much more alert; still with pus in urine; Objective - Vital Signs/Intake and Output Vital Signs (last 24 hours): Temp Pulse Resp BP Pulse Ox 98.3 F 78 18 120/67 100 10/27/17 19:45 10/27/17 21:57 10/27/17 21:57 10/27/17 21:57 10/27/17 21:57 Intake and Output: 10/27/17 10/28/17 18:59 06:59 Intake Total 935 100 Output Total 1140 Balance -205 100 - Medications Medications: Current Medications Aspirin (Ecotrin) 81 mg PO DAILY [facility] Last Admin: 10/21/17 08:49 Dose: 81 mg Atorvastatin Calcium (Lipitor) 40 mg PO QPM [facility] Last Admin: 10/21/17 17:21 Dose: Not Given Dextrose (Dextrose 50% Inj) 0 ml IV STAT PRN; Protocol PRN Reason: Hypoglycemia Protocol Dextrose (Glutose 15) 0 gm PO ONCE PRN; Protocol PRN Reason: Hypoglycemia Protocol Dextrose (Dextrose 50% Inj) 0 ml IV STAT PRN; Protocol PRN Reason: Hypoglycemia Protocol Dextrose (Glutose 15) 0 gm PO ONCE PRN; Protocol PRN Reason: Hypoglycemia Protocol Epoetin Axel (Procrit) 10,000 unit SC MWF [facility] Last Admin: 10/27/17 09:52 Dose: 10,000 unit Glucagon (Glucagen Diagnostic Kit) 0 mg IM STAT PRN; Protocol PRN Reason: Hypoglycemia Protocol Glucagon (Glucagen Diagnostic Kit) 0 mg IM STAT PRN; Protocol PRN Reason: Hypoglycemia Protocol Heparin Sodium (Porcine) (Heparin) 5,000 units SC Q8 [facility] PRN Reason: Protocol Last Admin: 10/27/17 17:12 Dose: 5,000 units Meropenem 500 mg/ Sodium (Chloride) 100 mls @ 100 mls/hr IVPB Q8 [facility] PRN Reason: Protocol Last Admin: 10/27/17 17:10 Dose: 100 mls/hr Fluconazole (Diflucan Iv 100 Mg/50 Ml Ns) 50 mls @ 50 mls/hr IVPB DAILY [facility] PRN Reason: Protocol Last Admin: 10/27/17 09:46 Dose: 50 mls/hr Insulin Human Regular (Humulin R) 0 units SC Q4 [facility] PRN Reason: Protocol Last Admin: 10/27/17 20:19 Dose: Not Given Nystatin (Nystop Topical Powder) 1 applic TOP TID [facility] Last Admin: 10/27/17 17:11 Dose: 1 applic Pantoprazole Sodium (Protonix Inj) 40 mg IVP DAILY [facility] Last Admin: 10/27/17 09:49 Dose: 40 mg Silver Sulfadiazine (Silvadene 1% 20 Gm) 1 ea TOP DAILY [facility] Last Admin: 10/27/17 09:49 Dose: 1 each Vancomycin HCl (Vancocin (Oral/Rectal Use)) 250 mg NG Q8 [facility] PRN Reason: Protocol Last Admin: 10/27/17 17:13 Dose: 250 mg - Labs Labs: 10/27/17 04:35 10/27/17 04:35 PT 12.3 Seconds (9.8-13.1) 10/20/17 19:46 INR 1.1 (0.9-1.2) 10/20/17 19:46 APTT 33.2 Seconds (25.6-37.1) D 10/21/17 04:18 - Constitutional Appears: Non-toxic, No Acute Distress - Eye Exam Eye Exam: absent: Scleral icterus - ENT Exam ENT Exam: Mucous Membranes Moist - Respiratory Exam Respiratory Exam: Clear to Ausculation Bilateral. absent: Respiratory Distress - Cardiovascular Exam Cardiovascular Exam: Tachycardia, +S1, +S2 - GI/Abdominal Exam GI & Abdominal Exam: Soft. absent: Distended - Exam Exam: absent: Bladder Distension - Extremities Exam Additional comments: edematous b/l UE; - Neurological Exam Additional comments: alert, responding to verbal stimuli; - Psychiatric Exam Psychiatric exam: absent: Agitated - Skin Skin Exam: absent: Cyanosis Assessment and Plan (1) Acute renal failure Assessment & Plan: NINA on CKD IV; renal function improving to baseline; relatively stable volume and electrolyte status; no more indication for HD; -continue to avoid nephrotoxic agents -keep I>O; -continue bladder irrigation per urology Status: Acute (2) Metabolic acidosis Status: Resolved (3) Hyperkalemia Status: Resolved (4) Septic shock Assessment & Plan: Much improved hemodynamic status; urine culture only showing yeast but drawn with patient already on abx; -continue to dose abx for CrCl < 20 ml/min; Status: Acute (5) Anemia Assessment & Plan: Hgb dropping, continue EPO qMWF; Status: Acute
[2017-10-27 23:13] LABS: URINE BILIRUBIN NEGATIVE (NEGATIVE); URINE BLOOD MODERATE (NEGATIVE); URINE CLARITY TURBID (Clear); URINE COLOR YELLOW (YELLOW); URINE GLUCOSE (UA) >=500 mg/dL (Normal); URINE LEUKOCYTE ESTERASE MOD Leu/uL (Negative); URINE PROTEIN 100 mg/dL (NEGATIVE); URINE UROBILINOGEN 0.2-1.0 mg/dL (0.2-1.0); WBC CLUMPS MANY /hpf
[2017-10-28] MEDS: Meropenem 500 MG in Sodium Chloride 0.9% 100 ML IVPB SCH ×3 (00:27→16:20)
[2017-10-28] MEDS: Insulin Regular 100 units/ml SC SCH ×6 (00:29→22:00)
[2017-10-28] MEDS: Vancomycin 500 mg (Oral/Rectal USE) NG SCH ×2 (00:30→08:24)
[2017-10-28 06:18] LABS: HEMOGLOBIN 7.2 g/dL (12.0-16.0); MEAN CELL VOLUME 86.5 fl (81.0-99.0); MEAN CORPUSCULAR HEMOGLOBIN 26.9 pg (27.0-31.0); MEAN CORPUSCULAR HGB CONC 31.2 g/dL (33.0-37.0); RBC 2.66 Mil/uL (3.80-5.20); RED CELL DISTRIBUTION WIDTH 16.5 % (11.5-14.5); WHITE BLOOD COUNT 7.9 K/uL (4.8-10.8)
[2017-10-28 06:28] LABS: CALCIUM 7.5 mg/dL (8.4-10.2)
[2017-10-28] MEDS ORDERED: Potassium Chloride 20 mEq 100 ML IVPB SCH (07:00)
--- NOTE | 2017-10-28 08:13 | CP.PCM.PN ---
Subjective - Date & Time of Evaluation Date of Evaluation: 10/28/17 Time of Evaluation: 08:13 - Subjective Subjective: ICU day 9 Patient seen and examined this morning seated on bed taking breakfast, states feeling better, expressed wants go home. Denies nausea, vomiting, chest or abdominal pain, no sob or difficulty breathing. Afebrile. Objective - Vital Signs/Intake and Output Vital Signs (last 24 hours): Temp Pulse Resp BP Pulse Ox 98.5 F 79 17 131/51 L 100 10/28/17 07:44 10/28/17 07:44 10/28/17 07:44 10/28/17 07:44 10/28/17 07:44 Intake and Output: 10/28/17 10/28/17 06:59 18:59 Intake Total 400 100 Output Total 1600 100 Balance -1200 0 - Medications Medications: Current Medications Aspirin (Ecotrin) 81 mg PO DAILY [facility] Last Admin: 10/21/17 08:49 Dose: 81 mg Atorvastatin Calcium (Lipitor) 40 mg PO QPM [facility] Last Admin: 10/21/17 17:21 Dose: Not Given Dextrose (Dextrose 50% Inj) 0 ml IV STAT PRN; Protocol PRN Reason: Hypoglycemia Protocol Dextrose (Glutose 15) 0 gm PO ONCE PRN; Protocol PRN Reason: Hypoglycemia Protocol Dextrose (Dextrose 50% Inj) 0 ml IV STAT PRN; Protocol PRN Reason: Hypoglycemia Protocol Dextrose (Glutose 15) 0 gm PO ONCE PRN; Protocol PRN Reason: Hypoglycemia Protocol Epoetin Axel (Procrit) 10,000 unit SC MWF [facility] Last Admin: 10/27/17 09:52 Dose: 10,000 unit Glucagon (Glucagen Diagnostic Kit) 0 mg IM STAT PRN; Protocol PRN Reason: Hypoglycemia Protocol Glucagon (Glucagen Diagnostic Kit) 0 mg IM STAT PRN; Protocol PRN Reason: Hypoglycemia Protocol Heparin Sodium (Porcine) (Heparin) 5,000 units SC Q8 [facility] PRN Reason: Protocol Last Admin: 10/28/17 00:28 Dose: 5,000 units Meropenem 500 mg/ Sodium (Chloride) 100 mls @ 100 mls/hr IVPB Q8 [facility] PRN Reason: Protocol Last Admin: 10/28/17 00:27 Dose: 100 mls/hr Fluconazole (Diflucan Iv 100 Mg/50 Ml Ns) 50 mls @ 50 mls/hr IVPB DAILY [facility] PRN Reason: Protocol Last Admin: 10/27/17 09:46 Dose: 50 mls/hr Insulin Human Regular (Humulin R) 0 units SC Q4 [facility] PRN Reason: Protocol Last Admin: 10/28/17 05:23 Dose: 1 unit Nystatin (Nystop Topical Powder) 1 applic TOP TID [facility] Last Admin: 10/27/17 17:11 Dose: 1 applic Pantoprazole Sodium (Protonix Inj) 40 mg IVP DAILY [facility] Last Admin: 10/27/17 09:49 Dose: 40 mg Silver Sulfadiazine (Silvadene 1% 20 Gm) 1 ea TOP DAILY [facility] Last Admin: 10/27/17 09:49 Dose: 1 each Vancomycin HCl (Vancocin (Oral/Rectal Use)) 250 mg NG Q8 [facility] PRN Reason: Protocol Last Admin: 10/28/17 00:30 Dose: 250 mg - Labs Labs: 10/28/17 05:30 10/28/17 05:30 PT 12.3 Seconds (9.8-13.1) 10/20/17 19:46 INR 1.1 (0.9-1.2) 10/20/17 19:46 APTT 33.2 Seconds (25.6-37.1) D 10/21/17 04:18 - Constitutional Appears: No Acute Distress - Head Exam Head Exam: NORMAL INSPECTION - Eye Exam Eye Exam: EOMI, PERRL - ENT Exam ENT Exam: Mucous Membranes Moist - Respiratory Exam Respiratory Exam: Clear to Ausculation Bilateral, NORMAL BREATHING PATTERN - Cardiovascular Exam Cardiovascular Exam: Tachycardia, REGULAR RHYTHM, +S1, +S2 - GI/Abdominal Exam GI & Abdominal Exam: Soft, Normal Bowel Sounds. absent: Distended, Tenderness - Extremities Exam Extremities Exam: absent: Calf Tenderness Additional comments: b/l LE edema UE edema resolving - Neurological Exam Neurological Exam: Awake, Oriented x3 - Psychiatric Exam Psychiatric exam: Normal Mood - Skin Additional comments: Sacrum: Purple localized DTI, non blanchable. R foot: localized erythema (DTI) in plantar aspect of great toe. L foot: Stage 2 pressure ulcer noted on medial aspect of heel and Left lateral plantar foot. Assessment and Plan - Assessment and Plan (Free Text) Assessment: 77yo F with PMHx uncontrolled IDDM2, HTN, CKD4, Hydronephrosis s/p bilateral stenting, chronic kidney disease, admitted with septic shock. Plan: 1- Acute Kidney Injury on CKD, improving - BUN/Cr 63/3.8 - s/p septic shock, likely 2/2 due to infected ureteral stents - Nephro on board Dr. Garcia. Recs are appreciated: - HD on 10/23/2017 - showing signs of renal recovery - K 3.4 - leukocytosis trending down from 13.5 yesterday - 7.9 today 2- H/O Hydronephrosis s/p bilateral stenting - likely infected and possible cause of sepsis - Urology on board Dr. Valentine recs appreciated - suggest bladder irrigation with sterile water once daily - no plan to remove stents for now. - pus noted in urine - urine cx w/ yeast species - ID on board: c/w abx (day 9) 3- Anemia, chronic disease - H/H: 7.2/27.2 - FOBT + - Venofer 100 mg 1 bag daily x 10 days. - f/u CBC in afternoon - f/u repeat FOBT 4- Diverticulitis, +C diff. - c/w flagyl 5- Hypertension, controlled - Hold home BP meds for now 2/2 shock 6- Diabetes Mellitus type 2, controlled - Diabetic diet - hold home PO meds - accucheck - insulin coverage by protocol - hypoglycemic protocol 7- Wound assessment - Ulcer present on Sacrum: Purple localized DTI, non blanchable, stable. - R foot: localized erythema (DTI) in plantar aspect of great toe and right heel resolving. - L foot: Stage 2 pressure ulcer noted on medial aspect of heel, stable. - Wound care on board 8- DVT prophylaxis - Heparin SC 9 - Code Status: DNR: Documentation reviewed: Status was discussed with family via Dr. Gracia and made aware by Dr. Mendes.
[2017-10-28] MEDS: Fluconazole IV 100mg/50 ml NS 50 ML IVPB SCH (08:26)
[2017-10-28] MEDS: Silver Sulfadiazine 1% Cream (20 gm) TOP SCH (08:29)
--- NOTE | 2017-10-28 08:51 | CP.CCUPN ---
CCU Subjective - Physician Review Events Since Last Encounter (Free Text): 10/28/17 08:48 Patient awake, no distress, no fever, on O2 supplement, no chest pain, no vomiting, events reviewed CCU Objective - Vital Signs / Intake & Output Vital Signs (Last 4 hours): Vital Signs Temp Pulse Resp BP Pulse Ox 10/28/17 08:15 79 16 128/58 L 100 10/28/17 07:44 98.5 F 79 17 131/51 L 100 10/28/17 06:00 78 16 131/51 L 100 Intake and Output (Last 8hrs): Intake & Output 10/27/17 10/28/17 10/28/17 22:59 06:59 14:59 Intake Total 550 300 100 Output Total 660 1600 100 Balance -110 -1300 0 Intake: IV 100 100 Intake, Piggyback 100 Oral 450 200 Output: Urine 660 1600 100 Urethral (Adams) 660 1600 100 - Physical Exam Head: Positive for: Atraumatic, Normocephalic. Negative for: Tenderness, Contusion Pupils: Positive for: PERRL. Negative for: Sluggish, Non-Reactive, Pinpoint Extroacular Muscles: Positive for: EOMI. Negative for: Gaze Palsy, Entrapment Conjunctiva: Positive for: Normal. Negative for: Injected, Icteric Ears: Positive for: Normal Mouth: Positive for: Moist Mucous Membranes Pharnyx: Positive for: Normal Nose (Internal): Positive for: Normal Inspection, No Active Bleeding Neck: Positive for: Normal Range of Motion, Trachea Midline. Negative for: Meningeal Signs, MIDLINE TENDERNESS, Paraspinal Tenderness, JVD, Lymphadenopathy , Bruit, Other Respiratory/Chest: Positive for: Decreased Breath Sounds, Rales, Rhonchi. Negative for: Respiratory Distress, Accessory Muscle Use, Wheezes, Tachypneic Cardiovascular: Positive for: Regular Rate and Rhythm, Normal S1, S2, Peripheal Pulses Present. Negative for: Murmurs, Irregular Rhythm, Tachycardic, Bradycardic Abdomen: Positive for: Distention, Normal Bowel Sounds. Negative for: Tenderness Upper Extremity: Positive for: Normal Inspection Lower Extremity: Positive for: Normal Inspection Neurological: Positive for: Speech Normal Psychiatric: Positive for: Alert - Medications Active Medications: Active Medications Generic Name Dose Route Start Last Admin Trade Name Freq PRN Reason Stop Dose Admin Aspirin 81 mg 10/21/17 09:00 04/14/18 08:49 Ecotrin PO 81 mg DAILY [facility] Administration Atorvastatin Calcium 40 mg 10/21/17 18:00 10/21/17 17:21 Lipitor PO Not Given QPM [facility] Dextrose 0 ml 10/21/17 00:29 Dextrose 50% Inj IV STAT PRN Hypoglycemia Protocol Protocol Dextrose 0 gm 10/21/17 00:29 Glutose 15 PO ONCE PRN Hypoglycemia Protocol Protocol Dextrose 0 ml 10/21/17 11:45 Dextrose 50% Inj IV STAT PRN Hypoglycemia Protocol Protocol Dextrose 0 gm 10/21/17 11:45 Glutose 15 PO ONCE PRN Hypoglycemia Protocol Protocol Epoetin Axel 10,000 unit 10/23/17 09:00 10/27/17 09:52 Procrit SC 10,000 unit MWF [facility] Administration Glucagon 0 mg 10/21/17 00:29 Glucagen Diagnostic Kit IM STAT PRN Hypoglycemia Protocol Protocol Glucagon 0 mg 10/21/17 11:45 Glucagen Diagnostic Kit IM STAT PRN Hypoglycemia Protocol Protocol Heparin Sodium (Porcine) 5,000 units 10/21/17 09:00 10/28/17 08:23 Heparin SC 5,000 units Q8 [facility] Administration Protocol Meropenem 500 mg/ Sodium 100 mls @ 100 mls/hr 10/21/17 10:19 10/28/17 08:27 Chloride IVPB 100 mls/hr Q8 [facility] Administration Protocol Fluconazole 50 mls @ 50 mls/hr 10/26/17 13:30 10/28/17 08:26 Diflucan Iv 100 Mg/50 Ml Ns IVPB 50 mls/hr DAILY [facility] Administration Protocol Insulin Human Regular 0 units 10/23/17 17:00 10/28/17 08:38 Humulin R SC 1 unit Q4 [facility] Administration Protocol Nystatin 1 applic 10/23/17 17:00 10/28/17 08:29 Nystop Topical Powder TOP 1 applic TID [facility] Administration Pantoprazole Sodium 40 mg 10/22/17 09:00 10/28/17 08:24 Protonix Inj IVP 40 mg DAILY [facility] Administration Silver Sulfadiazine 1 ea 10/23/17 18:30 10/28/17 08:29 Silvadene 1% 20 Gm TOP 1 each DAILY [facility] Administration Vancomycin HCl 250 mg 10/25/17 01:00 10/28/17 08:24 Vancocin (Oral/Rectal Use) NG 250 mg Q8 [facility] Administration Protocol - Patient Studies Lab Studies: Lab Studies 10/28/17 10/28/17 10/28/17 Range/Units 08:37 05:30 05:30 WBC 7.9 (4.8-10.8) K/uL RBC 2.66 L (3.80-5.20) Mil/uL Hgb 7.2 L (12.0-16.0) g/dL Hct 23.0 L (34.0-47.0) % MCV 86.5 (81.0-99.0) fl MCH 26.9 L (27.0-31.0) pg MCHC 31.2 L (33.0-37.0) g/dL RDW 16.5 H (11.5-14.5) % Plt Count 156 (130-400) K/uL Sodium 145 (132-148) mmol/l Potassium 3.4 L (3.6-5.0) MMOL/L Chloride 106 (98-107) mmol/L Carbon Dioxide 28 (22-30) mmol/L Anion Gap 14 (10-20) BUN 63 H (7-17) mg/dl Creatinine 3.8 H (0.7-1.2) mg/dl Est GFR ( Amer) 14 Est GFR (Non-Af Amer) 12 POC Glucose (mg/dL) 162 H (65-110) mg/dL Random Glucose 173 H (65-105) mg/dL Calcium 7.5 L (8.4-10.2) mg/dL 25-OH Vitamin D Total (30.0-100.0) NG/ML Urine Color (YELLOW) Urine Clarity (Clear) Urine pH (5.0-8.0) Ur Specific Mather (1.003-1.030) Urine Protein (NEGATIVE) mg/dL Urine Glucose (UA) (Normal) mg/dL Urine Ketones (NEGATIVE) mg/dL Urine Blood (NEGATIVE) Urine Nitrate (NEGATIVE) Urine Bilirubin (NEGATIVE) Urine Urobilinogen (0.2-1.0) mg/dL Ur Leukocyte Esterase (Negative) Emilio/uL Urine RBC (Auto) (0-3) /hpf Urine WBC Clumps (Auto) (NONE) /hpf Urine Microscopic WBC (0-5) /hpf 10/28/17 10/27/17 10/27/17 Range/Units 05:18 23:11 23:02 WBC (4.8-10.8) K/uL RBC (3.80-5.20) Mil/uL Hgb (12.0-16.0) g/dL Hct (34.0-47.0) % MCV (81.0-99.0) fl MCH (27.0-31.0) pg MCHC (33.0-37.0) g/dL RDW (11.5-14.5) % Plt Count (130-400) K/uL Sodium (132-148) mmol/l Potassium (3.6-5.0) MMOL/L Chloride (98-107) mmol/L Carbon Dioxide (22-30) mmol/L Anion Gap (10-20) BUN (7-17) mg/dl Creatinine (0.7-1.2) mg/dl Est GFR ( Amer) Est GFR (Non-Af Amer) POC Glucose (mg/dL) 173 H 237 H (65-110) mg/dL Random Glucose (65-105) mg/dL Calcium (8.4-10.2) mg/dL 25-OH Vitamin D Total (30.0-100.0) NG/ML Urine Color Yellow (YELLOW) Urine Clarity Turbid (Clear) Urine pH 7.0 (5.0-8.0) Ur Specific Mather 1.006 (1.003-1.030) Urine Protein 100 (NEGATIVE) mg/dL Urine Glucose (UA) >=500 (Normal) mg/dL Urine Ketones Negative (NEGATIVE) mg/dL Urine Blood Moderate (NEGATIVE) Urine Nitrate Negative (NEGATIVE) Urine Bilirubin Negative (NEGATIVE) Urine Urobilinogen 0.2-1.0 (0.2-1.0) mg/dL Ur Leukocyte Esterase Mod (Negative) Emilio/uL Urine RBC (Auto) 184 H (0-3) /hpf Urine WBC Clumps (Auto) Many H (NONE) /hpf Urine Microscopic WBC 48907 H (0-5) /hpf 10/27/17 10/27/17 10/27/17 Range/Units :18 17:18 12:46 WBC (4.8-10.8) K/uL RBC (3.80-5.20) Mil/uL Hgb (12.0-16.0) g/dL Hct (34.0-47.0) % MCV (81.0-99.0) fl MCH (27.0-31.0) pg MCHC (33.0-37.0) g/dL RDW (11.5-14.5) % Plt Count (130-400) K/uL Sodium (132-148) mmol/l Potassium (3.6-5.0) MMOL/L Chloride (98-107) mmol/L Carbon Dioxide (22-30) mmol/L Anion Gap (10-20) BUN (7-17) mg/dl Creatinine (0.7-1.2) mg/dl Est GFR ( Amer) Est GFR (Non-Af Amer) POC Glucose (mg/dL) 248 H 157 H 164 H (65-110) mg/dL Random Glucose (65-105) mg/dL Calcium (8.4-10.2) mg/dL 25-OH Vitamin D Total (30.0-100.0) NG/ML Urine Color (YELLOW) Urine Clarity (Clear) Urine pH (5.0-8.0) Ur Specific Mather (1.003-1.030) Urine Protein (NEGATIVE) mg/dL Urine Glucose (UA) (Normal) mg/dL Urine Ketones (NEGATIVE) mg/dL Urine Blood (NEGATIVE) Urine Nitrate (NEGATIVE) Urine Bilirubin (NEGATIVE) Urine Urobilinogen (0.2-1.0) mg/dL Ur Leukocyte Esterase (Negative) Emilio/uL Urine RBC (Auto) (0-3) /hpf Urine WBC Clumps (Auto) (NONE) /hpf Urine Microscopic WBC (0-5) /hpf 10/27/17 Range/Units 07:04 WBC (4.8-10.8) K/uL RBC (3.80-5.20) Mil/uL Hgb (12.0-16.0) g/dL Hct (34.0-47.0) % MCV (81.0-99.0) fl MCH (27.0-31.0) pg MCHC (33.0-37.0) g/dL RDW (11.5-14.5) % Plt Count (130-400) K/uL Sodium (132-148) mmol/l Potassium (3.6-5.0) MMOL/L Chloride (98-107) mmol/L Carbon Dioxide (22-30) mmol/L Anion Gap (10-20) BUN (7-17) mg/dl Creatinine (0.7-1.2) mg/dl Est GFR ( Amer) Est GFR (Non-Af Amer) POC Glucose (mg/dL) (65-110) mg/dL Random Glucose (65-105) mg/dL Calcium (8.4-10.2) mg/dL 25-OH Vitamin D Total < 12.8 L (30.0-100.0) NG/ML Urine Color (YELLOW) Urine Clarity (Clear) Urine pH (5.0-8.0) Ur Specific Mather (1.003-1.030) Urine Protein (NEGATIVE) mg/dL Urine Glucose (UA) (Normal) mg/dL Urine Ketones (NEGATIVE) mg/dL Urine Blood (NEGATIVE) Urine Nitrate (NEGATIVE) Urine Bilirubin (NEGATIVE) Urine Urobilinogen (0.2-1.0) mg/dL Ur Leukocyte Esterase (Negative) Emilio/uL Urine RBC (Auto) (0-3) /hpf Urine WBC Clumps (Auto) (NONE) /hpf Urine Microscopic WBC (0-5) /hpf Laboratory Results - last 24 hr 10/27/17 10/27/17 10/27/17 07:04 12:46 17:18 WBC RBC Hgb Hct MCV MCH MCHC RDW Plt Count Sodium Potassium Chloride Carbon Dioxide Anion Gap BUN Creatinine Est GFR ( Amer) Est GFR (Non-Af Amer) POC Glucose (mg/dL) 164 H 157 H Random Glucose Calcium 25-OH Vitamin D Total < 12.8 L Urine Color Urine Clarity Urine pH Ur Specific Mather Urine Protein Urine Glucose (UA) Urine Ketones Urine Blood Urine Nitrate Urine Bilirubin Urine Urobilinogen Ur Leukocyte Esterase Urine RBC (Auto) Urine WBC Clumps (Auto) Urine Microscopic WBC 10/27/17 10/27/17 10/27/17 20:18 23:02 23:11 WBC RBC Hgb Hct MCV MCH MCHC RDW Plt Count Sodium Potassium Chloride Carbon Dioxide Anion Gap BUN Creatinine Est GFR ( Amer) Est GFR (Non-Af Amer) POC Glucose (mg/dL) 248 H 237 H Random Glucose Calcium 25-OH Vitamin D Total Urine Color Yellow Urine Clarity Turbid Urine pH 7.0 Ur Specific Mather 1.006 Urine Protein 100 Urine Glucose (UA) >=500 Urine Ketones Negative Urine Blood Moderate Urine Nitrate Negative Urine Bilirubin Negative Urine Urobilinogen 0.2-1.0 Ur Leukocyte Esterase Mod Urine RBC (Auto) 184 H Urine WBC Clumps (Auto) Many H Urine Microscopic WBC 87666 H 10/28/17 10/28/17 10/28/17 05:18 05:30 05:30 WBC 7.9 RBC 2.66 L Hgb 7.2 L Hct 23.0 L MCV 86.5 MCH 26.9 L MCHC 31.2 L RDW 16.5 H Plt Count 156 Sodium 145 Potassium 3.4 L Chloride 106 Carbon Dioxide 28 Anion Gap 14 BUN 63 H Creatinine 3.8 H Est GFR ( Amer) 14 Est GFR (Non-Af Amer) 12 POC Glucose (mg/dL) 173 H Random Glucose 173 H Calcium 7.5 L 25-OH Vitamin D Total Urine Color Urine Clarity Urine pH Ur Specific Mather Urine Protein Urine Glucose (UA) Urine Ketones Urine Blood Urine Nitrate Urine Bilirubin Urine Urobilinogen Ur Leukocyte Esterase Urine RBC (Auto) Urine WBC Clumps (Auto) Urine Microscopic WBC 10/28/17 08:37 WBC RBC Hgb Hct MCV MCH MCHC RDW Plt Count Sodium Potassium Chloride Carbon Dioxide Anion Gap BUN Creatinine Est GFR ( Amer) Est GFR (Non-Af Amer) POC Glucose (mg/dL) 162 H Random Glucose Calcium 25-OH Vitamin D Total Urine Color Urine Clarity Urine pH Ur Specific Mather Urine Protein Urine Glucose (UA) Urine Ketones Urine Blood Urine Nitrate Urine Bilirubin Urine Urobilinogen Ur Leukocyte Esterase Urine RBC (Auto) Urine WBC Clumps (Auto) Urine Microscopic WBC Fingerstick Blood Sugar Results: 162 Critical Care Progress Note - Nutrition Nutrition: Nutrition Category Date Time Status Liquid Diet [DIET] Diets 10/27/17 Dinner Active Assessment/Plan - Assessment and Plan (Free Text) Assessment: A/P Respiratory insufficiency, sepsis, UTI, NINA/ATN, anemia, DM - O2 supplement - Pulmonary toilets - Continue meds - DVT prophylaxis
--- NOTE | 2017-10-28 11:50 | CP.PCM.PN ---
Subjective - Date & Time of Evaluation Date of Evaluation: 10/28/17 Time of Evaluation: 11:00 - Subjective Subjective: ID note- Pt. seen and examined this morning in ICU. patient awake and alert and answers all questions . She states she feels fine and denies any complaints. Objective - Vital Signs/Intake and Output Vital Signs (last 24 hours): Temp Pulse Resp BP Pulse Ox 98.5 F 89 20 114/62 100 10/28/17 07:44 10/28/17 10:00 10/28/17 10:00 10/28/17 10:00 10/28/17 10:00 Intake and Output: 10/28/17 10/28/17 06:59 18:59 Intake Total 400 750 Output Total 1600 200 Balance -1200 550 - Medications Medications: Current Medications Aspirin (Ecotrin) 81 mg PO DAILY COUNTS INCLUDE 234 BEDS AT THE [facility] Last Admin: 10/21/17 08:49 Dose: 81 mg Atorvastatin Calcium (Lipitor) 40 mg PO QPM COUNTS INCLUDE 234 BEDS AT THE [facility] Last Admin: 10/21/17 17:21 Dose: Not Given Dextrose (Dextrose 50% Inj) 0 ml IV STAT PRN; Protocol PRN Reason: Hypoglycemia Protocol Dextrose (Glutose 15) 0 gm PO ONCE PRN; Protocol PRN Reason: Hypoglycemia Protocol Dextrose (Dextrose 50% Inj) 0 ml IV STAT PRN; Protocol PRN Reason: Hypoglycemia Protocol Dextrose (Glutose 15) 0 gm PO ONCE PRN; Protocol PRN Reason: Hypoglycemia Protocol Epoetin Axel (Procrit) 10,000 unit SC MWF COUNTS INCLUDE 234 BEDS AT THE [facility] Last Admin: 10/27/17 09:52 Dose: 10,000 unit Glucagon (Glucagen Diagnostic Kit) 0 mg IM STAT PRN; Protocol PRN Reason: Hypoglycemia Protocol Glucagon (Glucagen Diagnostic Kit) 0 mg IM STAT PRN; Protocol PRN Reason: Hypoglycemia Protocol Heparin Sodium (Porcine) (Heparin) 5,000 units SC Q8 COUNTS INCLUDE 234 BEDS AT THE [facility] PRN Reason: Protocol Last Admin: 10/28/17 08:23 Dose: 5,000 units Meropenem 500 mg/ Sodium (Chloride) 100 mls @ 100 mls/hr IVPB Q8 COUNTS INCLUDE 234 BEDS AT THE [facility] PRN Reason: Protocol Last Admin: 10/28/17 08:27 Dose: 100 mls/hr Fluconazole (Diflucan Iv 100 Mg/50 Ml Ns) 50 mls @ 50 mls/hr IVPB DAILY COUNTS INCLUDE 234 BEDS AT THE [facility] PRN Reason: Protocol Last Admin: 10/28/17 08:26 Dose: 50 mls/hr Insulin Human Regular (Humulin R) 0 units SC Q4 [place] PRN Reason: Protocol Last Admin: 10/28/17 08:38 Dose: 1 unit Nystatin (Nystop Topical Powder) 1 applic TOP TID COUNTS INCLUDE 234 BEDS AT THE [facility] Last Admin: 10/28/17 08:29 Dose: 1 applic Pantoprazole Sodium (Protonix Inj) 40 mg IVP DAILY COUNTS INCLUDE 234 BEDS AT THE [facility] Last Admin: 10/28/17 08:24 Dose: 40 mg Silver Sulfadiazine (Silvadene 1% 20 Gm) 1 ea TOP DAILY COUNTS INCLUDE 234 BEDS AT THE [facility] Last Admin: 10/28/17 08:29 Dose: 1 each Vancomycin HCl (Vancocin (Oral/Rectal Use)) 250 mg NG Q8 [place] PRN Reason: Protocol Last Admin: 10/28/17 08:24 Dose: 250 mg - Labs Labs: - Additional Findings Additional findings: - Constitutional Appears: awake , alert and in good spirits - Head Exam Head Exam: ATRAUMATIC - Respiratory Exam Additional comments: good breath sounds heard b/l - Cardiovascular Exam Cardiovascular Exam: RRR, +S1, +S2 - GI/Abdominal Exam Additional comments: , soft, NT bowel sounds heard No guarding - Extremities Exam Additional comments: 1+ LE edema B/L - Neurological Exam AAO x 3 today clay cath- cloudy urine rectal tube in place- greenish stool Laboratory Results - last 72 hr 10/25/17 10/25/17 10/26/17 17:32 20:00 00:17 WBC RBC Hgb Hct MCV MCH MCHC RDW Plt Count MPV Neut % (Auto) Lymph % (Auto) Parmer % (Auto) Eos % (Auto) Baso % (Auto) Neut # (Auto) Lymph # (Auto) Parmer # (Auto) Eos # (Auto) Baso # (Auto) pCO2 pO2 HCO3 ABG pH ABG Total CO2 ABG O2 Saturation ABG O2 Content ABG Base Excess ABG Hemoglobin ABG Carboxyhemoglobin POC ABG HHb (Measured) ABG Methemoglobin ABG O2 Capacity Arnoldo Test A-a O2 Difference Hgb O2 Saturation Vent Mode Mechanical Rate FiO2 Tidal Volume PEEP Sodium Potassium Chloride Carbon Dioxide Anion Gap BUN Creatinine Est GFR ( Amer) Est GFR (Non-Af Amer) POC Glucose (mg/dL) 248 H 192 H 215 H Random Glucose Calcium Iron TIBC % Saturation Ferritin 25-OH Vitamin D Total Urine Color Urine Clarity Urine pH Ur Specific [place] Urine Protein Urine Glucose (UA) Urine Ketones Urine Blood Urine Nitrate Urine Bilirubin Urine Urobilinogen Ur Leukocyte Esterase Urine RBC (Auto) Urine WBC Clumps (Auto) Urine Microscopic WBC 10/26/17 10/26/17 10/26/17 04:25 04:30 04:30 WBC 14.0 H RBC 2.96 L Hgb 7.9 L Hct 25.3 L MCV 85.5 MCH 26.8 L MCHC 31.3 L RDW 16.1 H Plt Count 133 MPV Neut % (Auto) Lymph % (Auto) Parmer % (Auto) Eos % (Auto) Baso % (Auto) Neut # (Auto) Lymph # (Auto) Parmer # (Auto) Eos # (Auto) Baso # (Auto) pCO2 pO2 HCO3 ABG pH ABG Total CO2 ABG O2 Saturation ABG O2 Content ABG Base Excess ABG Hemoglobin ABG Carboxyhemoglobin POC ABG HHb (Measured) ABG Methemoglobin ABG O2 Capacity [place] Test A-a O2 Difference Hgb O2 Saturation Vent Mode Mechanical Rate FiO2 Tidal Volume PEEP Sodium 142 Potassium 3.2 L Chloride 104 Carbon Dioxide 26 Anion Gap 15 BUN 58 H Creatinine 4.5 H Est GFR ( Amer) 12 Est GFR (Non-Af Amer) 10 POC Glucose (mg/dL) 239 H Random Glucose 241 H Calcium 7.3 L Iron TIBC % Saturation Ferritin 25-OH Vitamin D Total Urine Color Urine Clarity Urine pH Ur Specific [place] Urine Protein Urine Glucose (UA) Urine Ketones Urine Blood Urine Nitrate Urine Bilirubin Urine Urobilinogen Ur Leukocyte Esterase Urine RBC (Auto) Urine WBC Clumps (Auto) Urine Microscopic WBC 10/26/17 10/26/17 10/26/17 04:45 07:55 11:30 WBC RBC Hgb Hct MCV MCH MCHC RDW Plt Count MPV Neut % (Auto) Lymph % (Auto) Parmer % (Auto) Eos % (Auto) Baso % (Auto) Neut # (Auto) Lymph # (Auto) Parmer # (Auto) Eos # (Auto) Baso # (Auto) pCO2 40 pO2 157 H HCO3 28.9 H ABG pH 7.47 H ABG Total CO2 30.3 H ABG O2 Saturation 100.4 H ABG O2 Content 11.4 L ABG Base Excess 5.0 H ABG Hemoglobin 8.0 L ABG Carboxyhemoglobin 1.4 POC ABG HHb (Measured) -0.4 L ABG Methemoglobin 0.5 ABG O2 Capacity 11.4 L Arnoldo Test Yes A-a O2 Difference 78.0 Hgb O2 Saturation 98.5 H Vent Mode Prvc ac Mechanical Rate 12 FiO2 40.0 Tidal Volume 450 PEEP 5 Sodium Potassium Chloride Carbon Dioxide Anion Gap BUN Creatinine Est GFR ( Amer) Est GFR (Non-Af Amer) POC Glucose (mg/dL) 150 H 186 H Random Glucose Calcium Iron TIBC % Saturation Ferritin 25-OH Vitamin D Total Urine Color Urine Clarity Urine pH Ur Specific [place] Urine Protein Urine Glucose (UA) Urine Ketones Urine Blood Urine Nitrate Urine Bilirubin Urine Urobilinogen Ur Leukocyte Esterase Urine RBC (Auto) Urine WBC Clumps (Auto) Urine Microscopic WBC 10/26/17 10/26/17 10/27/17 15:59 20:01 00:13 WBC RBC Hgb Hct MCV MCH MCHC RDW Plt Count MPV Neut % (Auto) Lymph % (Auto) Parmer % (Auto) Eos % (Auto) Baso % (Auto) Neut # (Auto) Lymph # (Auto) [place] # (Auto) Eos # (Auto) Baso # (Auto) pCO2 pO2 HCO3 ABG pH ABG Total CO2 ABG O2 Saturation ABG O2 Content ABG Base Excess ABG Hemoglobin ABG Carboxyhemoglobin POC ABG HHb (Measured) ABG Methemoglobin ABG O2 Capacity Arnoldo Test A-a O2 Difference Hgb O2 Saturation Vent Mode Mechanical Rate FiO2 Tidal Volume PEEP Sodium Potassium Chloride Carbon Dioxide Anion Gap BUN Creatinine Est GFR ( Amer) Est GFR (Non-Af Amer) POC Glucose (mg/dL) 256 H 190 H 223 H Random Glucose Calcium Iron TIBC % Saturation Ferritin 25-OH Vitamin D Total Urine Color Urine Clarity Urine pH Ur Specific [place] Urine Protein Urine Glucose (UA) Urine Ketones Urine Blood Urine Nitrate Urine Bilirubin Urine Urobilinogen Ur Leukocyte Esterase Urine RBC (Auto) Urine WBC Clumps (Auto) Urine Microscopic WBC 10/27/17 10/27/17 10/27/17 03:49 04:19 04:35 WBC 13.5 H RBC 2.91 L Hgb 7.8 L Hct 24.8 L MCV 85.4 MCH 26.8 L MCHC 31.4 L RDW 16.2 H Plt Count 139 MPV 8.8 Neut % (Auto) 73.4 Lymph % (Auto) 15.5 L Parmer % (Auto) 8.9 Eos % (Auto) 2.1 Baso % (Auto) 0.1 Neut # (Auto) 9.9 H Lymph # (Auto) 2.1 Parmer # (Auto) 1.2 H Eos # (Auto) 0.3 Baso # (Auto) 0.0 pCO2 38 pO2 146 H HCO3 29.6 H ABG pH 7.50 H ABG Total CO2 30.8 H ABG O2 Saturation 99.1 H ABG O2 Content 12.6 L ABG Base Excess 6.0 H ABG Hemoglobin 9.0 L ABG Carboxyhemoglobin 0.8 POC ABG HHb (Measured) 0.9 ABG Methemoglobin 1.3 ABG O2 Capacity 12.7 L Arnoldo Test Yes A-a O2 Difference 56.0 Hgb O2 Saturation 97.0 Vent Mode A/c Mechanical Rate 12 FiO2 35.0 Tidal Volume 450 PEEP 5 Sodium Potassium Chloride Carbon Dioxide Anion Gap BUN Creatinine Est GFR ( Amer) Est GFR (Non-Af Amer) POC Glucose (mg/dL) 254 H Random Glucose Calcium Iron TIBC % Saturation Ferritin 25-OH Vitamin D Total Urine Color Urine Clarity Urine pH Ur Specific [place] Urine Protein Urine Glucose (UA) Urine Ketones Urine Blood Urine Nitrate Urine Bilirubin Urine Urobilinogen Ur Leukocyte Esterase Urine RBC (Auto) Urine WBC Clumps (Auto) Urine Microscopic WBC 10/27/17 10/27/17 10/27/17 04:35 07:04 07:04 WBC RBC Hgb Hct MCV MCH MCHC RDW Plt Count MPV Neut % (Auto) Lymph % (Auto) Parmer % (Auto) Eos % (Auto) Baso % (Auto) Neut # (Auto) Lymph # (Auto) Parmer # (Auto) Eos # (Auto) Baso # (Auto) pCO2 pO2 HCO3 ABG pH ABG Total CO2 ABG O2 Saturation ABG O2 Content ABG Base Excess ABG Hemoglobin ABG Carboxyhemoglobin POC ABG HHb (Measured) ABG Methemoglobin ABG O2 Capacity Arnoldo Test A-a O2 Difference Hgb O2 Saturation Vent Mode Mechanical Rate FiO2 Tidal Volume PEEP Sodium 145 Potassium 3.5 L Chloride 106 Carbon Dioxide 28 Anion Gap 15 BUN 65 H Creatinine 4.2 H Est GFR ( Amer) 12 Est GFR (Non-Af Amer) 10 POC Glucose (mg/dL) Random Glucose 240 H Calcium 7.6 L Iron 19 L TIBC 136 L % Saturation 14 L Ferritin 25-OH Vitamin D Total < 12.8 L Urine Color Urine Clarity Urine pH Ur Specific [place] Urine Protein Urine Glucose (UA) Urine Ketones Urine Blood Urine Nitrate Urine Bilirubin Urine Urobilinogen Ur Leukocyte Esterase Urine RBC (Auto) Urine WBC Clumps (Auto) Urine Microscopic WBC 10/27/17 10/27/17 10/27/17 07:04 08:01 12:46 WBC RBC Hgb Hct MCV MCH MCHC RDW Plt Count MPV Neut % (Auto) Lymph % (Auto) Par[place] % (Auto) Eos % (Auto) Baso % (Auto) Neut # (Auto) Lymph # (Auto) Par[place] # (Auto) Eos # (Auto) Baso # (Auto) pCO2 pO2 HCO3 ABG pH ABG Total CO2 ABG O2 Saturation ABG O2 Content ABG Base Excess ABG Hemoglobin ABG Carboxyhemoglobin POC ABG HHb (Measured) ABG Methemoglobin ABG O2 Capacity Arnoldo Test A-a O2 Difference Hgb O2 Saturation Vent Mode Mechanical Rate FiO2 Tidal Volume PEEP Sodium Potassium Chloride Carbon Dioxide Anion Gap BUN Creatinine Est GFR ( Amer) Est GFR (Non-Af Amer) POC Glucose (mg/dL) 171 H 164 H Random Glucose Calcium Iron TIBC % Saturation Ferritin 629.0 H 25-OH Vitamin D Total Urine Color Urine Clarity Urine pH Ur Specific [place] Urine Protein Urine Glucose (UA) Urine Ketones Urine Blood Urine Nitrate Urine Bilirubin Urine Urobilinogen Ur Leukocyte Esterase Urine RBC (Auto) Urine WBC Clumps (Auto) Urine Microscopic WBC 10/27/17 10/27/17 10/27/17 17:18 20:18 23:02 WBC RBC Hgb Hct MCV MCH MCHC RDW Plt Count MPV Neut % (Auto) Lymph % (Auto) Parmer % (Auto) Eos % (Auto) Baso % (Auto) Neut # (Auto) Lymph # (Auto) Parmer # (Auto) Eos # (Auto) Baso # (Auto) pCO2 pO2 HCO3 ABG pH ABG Total CO2 ABG O2 Saturation ABG O2 Content ABG Base Excess ABG Hemoglobin ABG Carboxyhemoglobin POC ABG HHb (Measured) ABG Methemoglobin ABG O2 Capacity Arnoldo Test A-a O2 Difference Hgb O2 Saturation Vent Mode Mechanical Rate FiO2 Tidal Volume PEEP Sodium Potassium Chloride Carbon Dioxide Anion Gap BUN Creatinine Est GFR ( Amer) Est GFR (Non-Af Amer) POC Glucose (mg/dL) 157 H 248 H Random Glucose Calcium Iron TIBC % Saturation Ferritin 25-OH Vitamin D Total Urine Color Yellow Urine Clarity Turbid Urine pH 7.0 Ur Specific [place] 1.006 Urine Protein 100 Urine Glucose (UA) >=500 Urine Ketones Negative Urine Blood Moderate Urine Nitrate Negative Urine Bilirubin Negative Urine Urobilinogen 0.2-1.0 Ur Leukocyte Esterase Mod Urine RBC (Auto) 184 H Urine WBC Clumps (Auto) Many H Urine Microscopic WBC 62194 H 10/27/17 10/28/17 10/28/17 23:11 05:18 05:30 WBC 7.9 RBC 2.66 L Hgb 7.2 L Hct 23.0 L MCV 86.5 MCH 26.9 L MCHC 31.2 L RDW 16.5 H Plt Count 156 MPV Neut % (Auto) Lymph % (Auto) Parmer % (Auto) Eos % (Auto) Baso % (Auto) Neut # (Auto) Lymph # (Auto) Parmer # (Auto) Eos # (Auto) Baso # (Auto) pCO2 pO2 HCO3 ABG pH ABG Total CO2 ABG O2 Saturation ABG O2 Content ABG Base Excess ABG Hemoglobin ABG Carboxyhemoglobin POC ABG HHb (Measured) ABG Methemoglobin ABG O2 Capacity Arnoldo Test A-a O2 Difference Hgb O2 Saturation Vent Mode Mechanical Rate FiO2 Tidal Volume PEEP Sodium Potassium Chloride Carbon Dioxide Anion Gap BUN Creatinine Est GFR ( Amer) Est GFR (Non-Af Amer) POC Glucose (mg/dL) 237 H 173 H Random Glucose Calcium Iron TIBC % Saturation Ferritin 25-OH Vitamin D Total Urine Color Urine Clarity Urine pH Ur Specific [place] Urine Protein Urine Glucose (UA) Urine Ketones Urine Blood Urine Nitrate Urine Bilirubin Urine Urobilinogen Ur Leukocyte Esterase Urine RBC (Auto) Urine WBC Clumps (Auto) Urine Microscopic WBC 10/28/17 10/28/17 10/28/17 05:30 08:37 12:22 WBC RBC Hgb Hct MCV MCH MCHC RDW Plt Count MPV Neut % (Auto) Lymph % (Auto) Parmer % (Auto) Eos % (Auto) Baso % (Auto) Neut # (Auto) Lymph # (Auto) Parmer # (Auto) Eos # (Auto) Baso # (Auto) pCO2 pO2 HCO3 ABG pH ABG Total CO2 ABG O2 Saturation ABG O2 Content ABG Base Excess ABG Hemoglobin ABG Carboxyhemoglobin POC ABG HHb (Measured) ABG Methemoglobin ABG O2 Capacity Arnoldo Test A-a O2 Difference Hgb O2 Saturation Vent Mode Mechanical Rate FiO2 Tidal Volume PEEP Sodium 145 Potassium 3.4 L Chloride 106 Carbon Dioxide 28 Anion Gap 14 BUN 63 H Creatinine 3.8 H Est GFR ( Amer) 14 Est GFR (Non-Af Amer) 12 POC Glucose (mg/dL) 162 H 271 H Random Glucose 173 H Calcium 7.5 L Iron TIBC % Saturation Ferritin 25-OH Vitamin D Total Urine Color Urine Clarity Urine pH Ur Specific [place] Urine Protein Urine Glucose (UA) Urine Ketones Urine Blood Urine Nitrate Urine Bilirubin Urine Urobilinogen Ur Leukocyte Esterase Urine RBC (Auto) Urine WBC Clumps (Auto) Urine Microscopic WBC Microbiology 10/21/17 14:48 Blood-Venous Blood Culture - Final NO GROWTH AFTER 5 DAYS 10/21/17 14:48 Blood-Venous Gram Stain - Final TEST NOT PERFORMED 10/21/17 15:40 Blood-Venous Blood Culture - Final NO GROWTH AFTER 5 DAYS 10/21/17 15:40 Blood-Venous Gram Stain - Final TEST NOT PERFORMED 10/20/17 20:00 Blood Blood Culture - Final NO GROWTH AFTER 5 DAYS 10/20/17 20:00 Blood Gram Stain - Final TEST NOT PERFORMED 10/20/17 19:46 Blood Blood Culture - Final NO GROWTH AFTER 5 DAYS 10/20/17 19:46 Blood Gram Stain - Final TEST NOT PERFORMED 10/23/17 11:40 Urine,Clay Urine Culture - Final Yeast Species 10/20/17 10:30 Naris MRSA Culture (Admit) - Final MRSA NOT DETECTED Assessment and Plan (1) Acute on chronic renal failure Status: Acute (2) Metabolic acidosis Status: Resolved (3) Septic shock Status: Acute (4) UTI (urinary tract infection) Status: Acute (5) Hyperkalemia Status: Resolved - Assessment and Plan (Free Text) Assessment: /P- 77 year old female with multiple medical conditions and noncomplaint including CKD stage 4, DM II, b/l ureteral stents ( repaced 09/2017) admitted with change in MS, lethargy was found to be hyperkalemic, metabolic acidosis, acute on chronic renal insufficiency and leukocytosis. clinically much improved. s/p extubation yesterday. blood cx- neg x 4 urine cx- yeast leukocytosis has resolved. stool c.diff- pos metabolic acidosis c.diff colitis leukocytosis - resolved acute on chronic renal failure s/p emergent HD - now much improved, urinating well fungurea plan- advise to continue with empiric IV meropenm day #9 (renal dose). continue with vanco via NGT day #6. completed 8 days of IV flagyl foor the c.diff while she was intubated. can d/c it now. check repet stool c.diff. continue with IV fluconazole for fungurea day #3 advise to replace the clay. All labs and imaging results and chart notes reviewed. ICU time 45 minutes.
--- NOTE | 2017-10-28 12:46 | CP.PCM.PN ---
Subjective - Date & Time of Evaluation Date of Evaluation: 10/28/17 Time of Evaluation: 12:54 Objective - Vital Signs/Intake and Output Vital Signs (last 24 hours): Temp Pulse Resp BP Pulse Ox 98.5 F 89 20 114/62 100 10/28/17 07:44 10/28/17 10:00 10/28/17 10:00 10/28/17 10:00 10/28/17 10:00 Intake and Output: 10/28/17 10/28/17 06:59 18:59 Intake Total 400 750 Output Total 1600 200 Balance -1200 550 - Medications Medications: Current Medications Aspirin (Ecotrin) 81 mg PO DAILY [facility] Last Admin: 10/21/17 08:49 Dose: 81 mg Atorvastatin Calcium (Lipitor) 40 mg PO QPM [facility] Last Admin: 10/21/17 17:21 Dose: Not Given Dextrose (Dextrose 50% Inj) 0 ml IV STAT PRN; Protocol PRN Reason: Hypoglycemia Protocol Dextrose (Glutose 15) 0 gm PO ONCE PRN; Protocol PRN Reason: Hypoglycemia Protocol Dextrose (Dextrose 50% Inj) 0 ml IV STAT PRN; Protocol PRN Reason: Hypoglycemia Protocol Dextrose (Glutose 15) 0 gm PO ONCE PRN; Protocol PRN Reason: Hypoglycemia Protocol Epoetin Axel (Procrit) 10,000 unit SC MWF [facility] Last Admin: 10/27/17 09:52 Dose: 10,000 unit Ergocalciferol (Drisdol 50,000 Intl Units Cap) 1 cap PO Q7D [facility] Glucagon (Glucagen Diagnostic Kit) 0 mg IM STAT PRN; Protocol PRN Reason: Hypoglycemia Protocol Glucagon (Glucagen Diagnostic Kit) 0 mg IM STAT PRN; Protocol PRN Reason: Hypoglycemia Protocol Heparin Sodium (Porcine) (Heparin) 5,000 units SC Q8 [place] PRN Reason: Protocol Last Admin: 10/28/17 08:23 Dose: 5,000 units Meropenem 500 mg/ Sodium (Chloride) 100 mls @ 100 mls/hr IVPB Q8 [facility] PRN Reason: Protocol Last Admin: 10/28/17 08:27 Dose: 100 mls/hr Fluconazole (Diflucan Iv 100 Mg/50 Ml Ns) 50 mls @ 50 mls/hr IVPB DAILY [facility] PRN Reason: Protocol Last Admin: 10/28/17 08:26 Dose: 50 mls/hr Iron Sucrose 100 mg/ Sodium (Chloride) 105 mls @ 105 mls/hr IVPB DAILY [facility] Stop: 11/06/17 09:59 Metronidazole (Flagyl 500mg/100ml Ns) 100 mls @ 100 mls/hr IVPB Q8 [place] PRN Reason: Protocol Sodium Chloride (Sodium Chloride 0.9%) 1,000 mls @ 60 mls/hr IV .[id number] [facility] Stop: 10/29/17 12:32 Insulin Human Regular (Humulin R) 0 units SC Q4 [place] PRN Reason: Protocol Last Admin: 10/28/17 12:32 Dose: 3 unit Nystatin (Nystop Topical Powder) 1 applic TOP TID [facility] Last Admin: 10/28/17 12:33 Dose: 1 applic Pantoprazole Sodium (Protonix Inj) 40 mg IVP DAILY [facility] Last Admin: 10/28/17 08:24 Dose: 40 mg Silver Sulfadiazine (Silvadene 1% 20 Gm) 1 ea TOP DAILY [facility] Last Admin: 10/28/17 08:29 Dose: 1 each Vancomycin HCl (Vancocin (Oral/Rectal Use)) 250 mg PO Q8 [place] PRN Reason: Protocol - Labs Labs: 10/28/17 05:30 10/28/17 05:30 PT 12.3 Seconds (9.8-13.1) 10/20/17 19:46 INR 1.1 (0.9-1.2) 10/20/17 19:46 APTT 33.2 Seconds (25.6-37.1) D 10/21/17 04:18 Assessment and Plan (1) Acute renal failure Assessment & Plan: NINA on CKD IV; renal function continues to improve, currently around baseline; off HD since 5 days; UO increasing; will start gentle IVF to prevent volume depletion and keep I>O; -start NS at 60 cc/hr -continue to avoid nephrotoxic agents; Status: Acute (2) Metabolic acidosis Status: Resolved (3) Hyperkalemia Status: Resolved (4) Septic shock Assessment & Plan: Overall stable on abx; discussed with ID; infected stents likely source of infection despite negative urine culture (drawn well after abx started); will likely need to be exchanged; 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; -continue to dose abx for CrCl < 20 ml/min; Status: Acute (5) Anemia Assessment & Plan: Hgb continues to drop; iron sat low so will start IV iron loading despite modestly elevated ferritin; may still need prbc transfusion; started on EPO 1 week ago, continue; Status: Acute (6) Chronic kidney disease (CKD), stage IV (severe) Assessment & Plan: With DM and bilateral hydronephrosis and ureteral stents with recurrent infection; Had extensive discussion with patient regarding advanced CKD and overall progression toward ESRD/dialysis in the coming 6-12 months; discussed need for AVF creation; patient is tearful and states she doesn't want to ; told her to discuss with family; -if agreeable, will ask for vascular surgery consult for AVF creation, preferably before d/c; -awaiting PTH level; -starting ergocalciferol for low 25-OH vit D; Status: Chronic
[2017-10-28] MEDS: Sodium Chloride 0.9% 1,000 ML IV SCH (13:03)
[2017-10-28] MEDS: Ergocalciferol 50,000 Intl Units Cap PO SCH (14:06)
[2017-10-28] MEDS: Vancomycin 500 mg (Oral/Rectal USE) PO SCH (16:26)
[2017-10-28] MEDS ORDERED: metroNIDAZOLE 500mg/100ml NS 100 ML IVPB SCH (17:00)
[2017-10-29] MEDS: Meropenem 500 MG in Sodium Chloride 0.9% 100 ML IVPB SCH ×3 (00:45→16:04)
[2017-10-29] MEDS: Vancomycin 500 mg (Oral/Rectal USE) PO SCH ×3 (00:46→16:00)
[2017-10-29] MEDS: Insulin Regular 100 units/ml SC SCH ×6 (00:56→22:04)
[2017-10-29 07:33] LABS: BASO % 0.3 % (0.0-2.0); EOS # 0.2 K/uL (0.0-0.7); EOS % 3.6 % (0.0-4.0); HEMOGLOBIN 7.4 g/dL (12.0-16.0); LYMPH # 2.2 K/uL (1.0-4.3); LYMPH % 32.7 % (20.0-40.0); MEAN CELL VOLUME 87.2 fl (81.0-99.0); MEAN CORPUSCULAR HEMOGLOBIN 27.3 pg (27.0-31.0); MEAN CORPUSCULAR HGB CONC 31.3 g/dL (33.0-37.0); MONO # 1.1 K/uL (0.0-0.8); MONO % 16.9 % (0.0-10.0); NEUT # 3.1 K/uL (1.8-7.0); NEUT % 46.5 % (50.0-75.0); NRBC % 0.3 % (0.0-0.0); RBC 2.69 Mil/uL (3.80-5.20); RED CELL DISTRIBUTION WIDTH 16.2 % (11.5-14.5); WHITE BLOOD COUNT 6.7 K/uL (4.8-10.8)
[2017-10-29 07:54] LABS: ALB/GLOB RATIO 0.8 (1.0-2.1); ALBUMIN 2.1 g/dL (3.5-5.0); CALCIUM 7.7 mg/dL (8.4-10.2)
--- NOTE | 2017-10-29 08:14 | CP.CCUPN ---
CCU Subjective - Physician Review Events Since Last Encounter (Free Text): Patient awake, no distress, no fever, on O2 supplement, no chest pain, no vomiting, events reviewed CCU Objective - Vital Signs / Intake & Output Vital Signs (Last 4 hours): Vital Signs Temp Pulse Resp BP Pulse Ox 10/29/17 06:00 97.6 F 76 21 118/67 100 Intake and Output (Last 8hrs): Intake & Output 10/28/17 10/29/17 10/29/17 22:59 06:59 14:59 Intake Total 700 530 Output Total 550 1400 Balance 150 -870 Weight 185 lb 3.2 oz Intake: IV 500 480 Oral 200 50 Output: Urine 400 1100 Urethral ([place]) 400 1100 Stool 150 300 - Physical Exam Head: Positive for: Atraumatic, Normocephalic. Negative for: Tenderness, Contusion Pupils: Positive for: PERRL. Negative for: Sluggish, Non-Reactive, Pinpoint Extroacular Muscles: Positive for: EOMI. Negative for: Gaze Palsy, Entrapment Conjunctiva: Positive for: Normal. Negative for: Injected, Icteric Ears: Positive for: Normal Mouth: Positive for: Moist Mucous Membranes Pharnyx: Positive for: Normal Nose (Internal): Positive for: Normal Inspection, No Active Bleeding Neck: Positive for: Normal Range of Motion, Trachea Midline. Negative for: Meningeal Signs, MIDLINE TENDERNESS, Paraspinal Tenderness, JVD, Lymphadenopathy , Bruit, Other Respiratory/Chest: Positive for: Decreased Breath Sounds, Rales, Rhonchi. Negative for: Respiratory Distress, Accessory Muscle Use, Wheezes, Tachypneic Cardiovascular: Positive for: Regular Rate and Rhythm, Normal S1, S2, Peripheal Pulses Present. Negative for: Murmurs, Irregular Rhythm, Tachycardic, Bradycardic Abdomen: Positive for: Distention, Normal Bowel Sounds. Negative for: Tenderness Upper Extremity: Positive for: Normal Inspection Lower Extremity: Positive for: Normal Inspection Neurological: Positive for: Speech Normal Psychiatric: Positive for: Alert - Medications Active Medications: Active Medications Generic Name Dose Route Start Last Admin Trade Name Freq PRN Reason Stop Dose Admin Aspirin 81 mg 10/21/17 09:00 10/21/17 08:49 Ecotrin PO 81 mg DAILY [facility] Administration Atorvastatin Calcium 40 mg 10/21/17 18:00 10/21/17 17:21 Lipitor PO Not Given QPM [facility] Dextrose 0 ml 10/21/17 00:29 Dextrose 50% Inj IV STAT PRN Hypoglycemia Protocol Protocol Dextrose 0 gm 10/21/17 00:29 Glutose 15 PO ONCE PRN Hypoglycemia Protocol Protocol Dextrose 0 ml 10/21/17 11:45 Dextrose 50% Inj IV STAT PRN Hypoglycemia Protocol Protocol Dextrose 0 gm 10/21/17 11:45 Glutose 15 PO ONCE PRN Hypoglycemia Protocol Protocol Epoetin Axel 10,000 unit 10/23/17 09:00 10/27/17 09:52 Procrit SC 10,000 unit MWF [facility] Administration Ergocalciferol 1 cap 10/28/17 12:00 10/28/17 14:06 Drisdol 50,000 Intl Units Cap PO 1 cap Q7D [facility] Administration Glucagon 0 mg 10/21/17 00:29 Glucagen Diagnostic Kit IM STAT PRN Hypoglycemia Protocol Protocol Glucagon 0 mg 10/21/17 11:45 Glucagen Diagnostic Kit IM STAT PRN Hypoglycemia Protocol Protocol Heparin Sodium (Porcine) 5,000 units 10/21/17 09:00 10/29/17 00:45 Heparin SC 5,000 units Q8 [facility] Administration Protocol Meropenem 500 mg/ Sodium 100 mls @ 100 mls/hr 10/21/17 10:19 10/29/17 00:45 Chloride IVPB 100 mls/hr Q8 [facility] Administration Protocol Fluconazole 50 mls @ 50 mls/hr 10/26/17 13:30 10/28/17 08:26 Diflucan Iv 100 Mg/50 Ml Ns IVPB 50 mls/hr DAILY [facility] Administration Protocol Iron Sucrose 100 mg/ Sodium 105 mls @ 105 mls/hr 10/28/17 12:00 10/28/17 14: 05 Chloride IVPB 11/06/17 09:59 105 mls/hr DAILY [facility] Administration Sodium Chloride 1,000 mls @ 60 mls/hr 10/28/17 12:45 10/28/17 13:03 Sodium Chloride 0.9% IV 10/29/17 12:32 60 mls/hr .[id number] [facility] Administration Insulin Human Regular 0 units 10/29/17 06:00 10/29/17 06:29 Humulin R SC 1 u ACHS [facility] Administration Protocol Nystatin 1 applic 10/23/17 17:00 10/28/17 16:32 Nystop Topical Powder TOP 1 applic TID [facility] Administration Pantoprazole Sodium 40 mg 10/22/17 09:00 10/28/17 08:24 Protonix Inj IVP 40 mg DAILY [facility] Administration Silver Sulfadiazine 1 ea 10/23/17 18:30 10/28/17 08:29 Silvadene 1% 20 Gm TOP 1 each DAILY [facility] Administration Vancomycin HCl 250 mg 10/28/17 12:12 10/29/17 00:46 Vancocin (Oral/Rectal Use) PO 250 mg Q8 [facility] Administration Protocol - Patient Studies Lab Studies: Microbiology Studies 10/27/17 09:10 Urine Culture - Final Urine,Catheterized No Growth (<1,000 CFU/ML) 10/27/17 20:07 Blood Culture - Preliminary Blood-Venous NO GROWTH AFTER 24 HOURS 10/27/17 20:07 Blood Culture - Preliminary Blood-Venous NO GROWTH AFTER 24 HOURS Lab Studies 10/29/17 10/29/17 10/29/17 Range/Units 05:20 05:20 04:18 WBC 6.7 (4.8-10.8) K/uL RBC 2.69 L (3.80-5.20) Mil/uL Hgb 7.4 L (12.0-16.0) g/dL Hct 23.5 L (34.0-47.0) % MCV 87.2 (81.0-99.0) fl MCH 27.3 (27.0-31.0) pg MCHC 31.3 L (33.0-37.0) g/dL RDW 16.2 H (11.5-14.5) % Plt Count 196 (130-400) K/uL MPV 9.0 (7.2-11.7) fl Neut % (Auto) 46.5 L (50.0-75.0) % Lymph % (Auto) 32.7 (20.0-40.0) % Loup % (Auto) 16.9 H (0.0-10.0) % Eos % (Auto) 3.6 (0.0-4.0) % Baso % (Auto) 0.3 (0.0-2.0) % Neut # (Auto) 3.1 (1.8-7.0) K/uL Lymph # (Auto) 2.2 (1.0-4.3) K/uL Loup # (Auto) 1.1 H (0.0-0.8) K/uL Eos # (Auto) 0.2 (0.0-0.7) K/uL Baso # (Auto) 0.0 (0.0-0.2) K/uL Sodium 145 (132-148) mmol/l Potassium 3.7 (3.6-5.0) MMOL/L Chloride 108 H (98-107) mmol/L Carbon Dioxide 24 (22-30) mmol/L Anion Gap 17 (10-20) BUN 55 H (7-17) mg/dl Creatinine 3.4 H (0.7-1.2) mg/dl Est GFR ( Amer) 16 Est GFR (Non-Af Amer) 13 POC Glucose (mg/dL) 196 H (65-110) mg/dL Random Glucose 149 H (65-105) mg/dL Calcium 7.7 L (8.4-10.2) mg/dL Total Bilirubin 0.3 (0.2-1.3) mg/dl AST 37 H D (14-36) U/L ALT 30 (9-52) U/L Alkaline Phosphatase 78 (38-126) U/L Total Protein 4.6 L (6.3-8.2) G/DL Albumin 2.1 L (3.5-5.0) g/dL Globulin 2.5 (2.2-3.9) gm/dL Albumin/Globulin Ratio 0.8 L (1.0-2.1) Stool Occult Blood (NEGATIVE) C. difficile Tox B Gene (Not Detected) 10/28/17 10/28/17 10/28/17 Range/Units 22:20 17:12 16:30 WBC (4.8-10.8) K/uL RBC (3.80-5.20) Mil/uL Hgb (12.0-16.0) g/dL Hct (34.0-47.0) % MCV (81.0-99.0) fl MCH (27.0-31.0) pg MCHC (33.0-37.0) g/dL RDW (11.5-14.5) % Plt Count (130-400) K/uL MPV (7.2-11.7) fl Neut % (Auto) (50.0-75.0) % Lymph % (Auto) (20.0-40.0) % Loup % (Auto) (0.0-10.0) % Eos % (Auto) (0.0-4.0) % Baso % (Auto) (0.0-2.0) % Neut # (Auto) (1.8-7.0) K/uL Lymph # (Auto) (1.0-4.3) K/uL Loup # (Auto) (0.0-0.8) K/uL Eos # (Auto) (0.0-0.7) K/uL Baso # (Auto) (0.0-0.2) K/uL Sodium (132-148) mmol/l Potassium (3.6-5.0) MMOL/L Chloride (98-107) mmol/L Carbon Dioxide (22-30) mmol/L Anion Gap (10-20) BUN (7-17) mg/dl Creatinine (0.7-1.2) mg/dl Est GFR ( Amer) Est GFR (Non-Af Amer) POC Glucose (mg/dL) 171 H 205 H (65-110) mg/dL Random Glucose (65-105) mg/dL Calcium (8.4-10.2) mg/dL Total Bilirubin (0.2-1.3) mg/dl AST (14-36) U/L ALT (9-52) U/L Alkaline Phosphatase (38-126) U/L Total Protein (6.3-8.2) G/DL Albumin (3.5-5.0) g/dL Globulin (2.2-3.9) gm/dL Albumin/Globulin Ratio (1.0-2.1) Stool Occult Blood Negative (NEGATIVE) C. difficile Tox B Gene (Not Detected) 10/28/17 10/28/17 10/27/17 Range/Units 12:22 08:37 18:00 WBC (4.8-10.8) K/uL RBC (3.80-5.20) Mil/uL Hgb (12.0-16.0) g/dL Hct (34.0-47.0) % MCV (81.0-99.0) fl MCH (27.0-31.0) pg MCHC (33.0-37.0) g/dL RDW (11.5-14.5) % Plt Count (130-400) K/uL MPV (7.2-11.7) fl Neut % (Auto) (50.0-75.0) % Lymph % (Auto) (20.0-40.0) % Loup % (Auto) (0.0-10.0) % Eos % (Auto) (0.0-4.0) % Baso % (Auto) (0.0-2.0) % Neut # (Auto) (1.8-7.0) K/uL Lymph # (Auto) (1.0-4.3) K/uL Loup # (Auto) (0.0-0.8) K/uL Eos # (Auto) (0.0-0.7) K/uL Baso # (Auto) (0.0-0.2) K/uL Sodium (132-148) mmol/l Potassium (3.6-5.0) MMOL/L Chloride (98-107) mmol/L Carbon Dioxide (22-30) mmol/L Anion Gap (10-20) BUN (7-17) mg/dl Creatinine (0.7-1.2) mg/dl Est GFR ( Amer) Est GFR (Non-Af Amer) POC Glucose (mg/dL) 271 H 162 H (65-110) mg/dL Random Glucose (65-105) mg/dL Calcium (8.4-10.2) mg/dL Total Bilirubin (0.2-1.3) mg/dl AST (14-36) U/L ALT (9-52) U/L Alkaline Phosphatase (38-126) U/L Total Protein (6.3-8.2) G/DL Albumin (3.5-5.0) g/dL Globulin (2.2-3.9) gm/dL Albumin/Globulin Ratio (1.0-2.1) Stool Occult Blood (NEGATIVE) C. difficile Tox B Gene Detected H (Not Detected) Laboratory Results - last 24 hr 10/27/17 10/28/17 10/28/17 18:00 08:37 12:22 WBC RBC Hgb Hct MCV MCH MCHC RDW Plt Count MPV Neut % (Auto) Lymph % (Auto) Loup % (Auto) Eos % (Auto) Baso % (Auto) Neut # (Auto) Lymph # (Auto) Loup # (Auto) Eos # (Auto) Baso # (Auto) Sodium Potassium Chloride Carbon Dioxide Anion Gap BUN Creatinine Est GFR ( Amer) Est GFR (Non-Af Amer) POC Glucose (mg/dL) 162 H 271 H Random Glucose Calcium Total Bilirubin AST ALT Alkaline Phosphatase Total Protein Albumin Globulin Albumin/Globulin Ratio Stool Occult Blood C. difficile Tox B Gene Detected H 10/28/17 10/28/17 10/28/17 16:30 17:12 22:20 WBC RBC Hgb Hct MCV MCH MCHC RDW Plt Count MPV Neut % (Auto) Lymph % (Auto) Loup % (Auto) Eos % (Auto) Baso % (Auto) Neut # (Auto) Lymph # (Auto) Loup # (Auto) Eos # (Auto) Baso # (Auto) Sodium Potassium Chloride Carbon Dioxide Anion Gap BUN Creatinine Est GFR ( Amer) Est GFR (Non-Af Amer) POC Glucose (mg/dL) 205 H 171 H Random Glucose Calcium Total Bilirubin AST ALT Alkaline Phosphatase Total Protein Albumin Globulin Albumin/Globulin Ratio Stool Occult Blood Negative C. difficile Tox B Gene 10/29/17 10/29/17 10/29/17 04:18 05:20 05:20 WBC 6.7 RBC 2.69 L Hgb 7.4 L Hct 23.5 L MCV 87.2 MCH 27.3 MCHC 31.3 L RDW 16.2 H Plt Count 196 MPV 9.0 Neut % (Auto) 46.5 L Lymph % (Auto) 32.7 Loup % (Auto) 16.9 H Eos % (Auto) 3.6 Baso % (Auto) 0.3 Neut # (Auto) 3.1 Lymph # (Auto) 2.2 Loup # (Auto) 1.1 H Eos # (Auto) 0.2 Baso # (Auto) 0.0 Sodium 145 Potassium 3.7 Chloride 108 H Carbon Dioxide 24 Anion Gap 17 BUN 55 H Creatinine 3.4 H Est GFR ( Amer) 16 Est GFR (Non-Af Amer) 13 POC Glucose (mg/dL) 196 H Random Glucose 149 H Calcium 7.7 L Total Bilirubin 0.3 AST 37 H D ALT 30 Alkaline Phosphatase 78 Total Protein 4.6 L Albumin 2.1 L Globulin 2.5 Albumin/Globulin Ratio 0.8 L Stool Occult Blood C. difficile Tox B Gene Fingerstick Blood Sugar Results: 196 Critical Care Progress Note - Nutrition Nutrition: Nutrition Category Date Time Status Dysphagia/Modified Consistency Diet [DIET] Diets 10/28/17 Dinner Active Assessment/Plan - Assessment and Plan (Free Text) Assessment: A/P Respiratory insufficiency, sepsis, UTI, NINA/ATN, anemia, DM - O2 supplement - Pulmonary toilets - Continue meds - DVT prophylaxis
[2017-10-29] MEDS: Fluconazole IV 100mg/50 ml NS 50 ML IVPB SCH (09:37)
--- NOTE | 2017-10-29 10:04 | CP.PCM.PN ---
Subjective - Date & Time of Evaluation Date of Evaluation: 10/29/17 Time of Evaluation: 08:30 - Subjective Subjective: Pt. seen at bedside. Overnight events reviewed. Pt. with no complaints today. Pt. tolerating diet. Pt. with no complaints of chest pain, dyspnea, fever, chills, or abdominal pain. Objective - Vital Signs/Intake and Output Vital Signs (last 24 hours): Temp Pulse Resp BP Pulse Ox 98.8 F 96 H 14 91/77 L 99 10/29/17 08:00 10/29/17 08:00 10/29/17 08:00 10/29/17 08:00 10/29/17 08:00 Intake and Output: 10/29/17 10/29/17 06:59 18:59 Intake Total 760 240 Output Total 1400 Balance -640 240 - Medications Medications: Current Medications Aspirin (Ecotrin) 81 mg PO DAILY [facility] Last Admin: 10/21/17 08:49 Dose: 81 mg Atorvastatin Calcium (Lipitor) 40 mg PO QPM [facility] Last Admin: 10/21/17 17:21 Dose: Not Given Dextrose (Dextrose 50% Inj) 0 ml IV STAT PRN; Protocol PRN Reason: Hypoglycemia Protocol Dextrose (Glutose 15) 0 gm PO ONCE PRN; Protocol PRN Reason: Hypoglycemia Protocol Dextrose (Dextrose 50% Inj) 0 ml IV STAT PRN; Protocol PRN Reason: Hypoglycemia Protocol Dextrose (Glutose 15) 0 gm PO ONCE PRN; Protocol PRN Reason: Hypoglycemia Protocol Epoetin Axel (Procrit) 10,000 unit SC MWF [facility] Last Admin: 10/27/17 09:52 Dose: 10,000 unit Ergocalciferol (Drisdol 50,000 Intl Units Cap) 1 cap PO Q7D [facility] Last Admin: 10/28/17 14:06 Dose: 1 cap Glucagon (Glucagen Diagnostic Kit) 0 mg IM STAT PRN; Protocol PRN Reason: Hypoglycemia Protocol Glucagon (Glucagen Diagnostic Kit) 0 mg IM STAT PRN; Protocol PRN Reason: Hypoglycemia Protocol Heparin Sodium (Porcine) (Heparin) 5,000 units SC Q8 [facility] PRN Reason: Protocol Last Admin: 10/29/17 08:37 Dose: 5,000 units Meropenem 500 mg/ Sodium (Chloride) 100 mls @ 100 mls/hr IVPB Q8 [facility] PRN Reason: Protocol Last Admin: 10/29/17 08:38 Dose: 100 mls/hr Fluconazole (Diflucan Iv 100 Mg/50 Ml Ns) 50 mls @ 50 mls/hr IVPB DAILY [facility] PRN Reason: Protocol Last Admin: 10/29/17 09:37 Dose: 50 mls/hr Iron Sucrose 100 mg/ Sodium (Chloride) 105 mls @ 105 mls/hr IVPB DAILY [facility] Stop: 11/06/17 09:59 Last Admin: 10/28/17 14:05 Dose: 105 mls/hr Sodium Chloride (Sodium Chloride 0.9%) 1,000 mls @ 60 mls/hr IV .[id number] [facility] Stop: 10/29/17 12:32 Last Admin: 10/28/17 13:03 Dose: 60 mls/hr Insulin Human Regular (Humulin R) 0 units SC ACHS [facility] PRN Reason: Protocol Last Admin: 10/29/17 06:29 Dose: 1 u Nystatin (Nystop Topical Powder) 1 applic TOP TID [facility] Last Admin: 10/29/17 09:04 Dose: 1 applic Pantoprazole Sodium (Protonix Inj) 40 mg IVP DAILY [facility] Last Admin: 10/29/17 08:36 Dose: 40 mg Silver Sulfadiazine (Silvadene 1% 20 Gm) 1 ea TOP DAILY [facility] Last Admin: 10/28/17 08:29 Dose: 1 each Vancomycin HCl (Vancocin (Oral/Rectal Use)) 250 mg PO Q8 [facility] PRN Reason: Protocol Last Admin: 10/29/17 09:01 Dose: 250 mg - Labs Labs: 10/29/17 05:20 10/29/17 05:20 PT 12.3 Seconds (9.8-13.1) 10/20/17 19:46 INR 1.1 (0.9-1.2) 10/20/17 19:46 APTT 33.2 Seconds (25.6-37.1) D 10/21/17 04:18 - Constitutional Appears: Non-toxic, No Acute Distress - Eye Exam Eye Exam: Normal appearance. absent: Scleral icterus - ENT Exam ENT Exam: Mucous Membranes Moist - Neck Exam Additional comments: +RT neck central line - Respiratory Exam Respiratory Exam: Clear to Ausculation Bilateral, NORMAL BREATHING PATTERN - Cardiovascular Exam Cardiovascular Exam: REGULAR RHYTHM, +S1, +S2 - GI/Abdominal Exam GI & Abdominal Exam: Soft. absent: Tenderness - Neurological Exam Neurological Exam: Alert, Awake, Oriented x3 Assessment and Plan - Assessment and Plan (Free Text) Assessment: 77 y.o. female admitted for septic shock now resolved and acute kidney injury which is improving and also now extubated Plan: 1- Acute Kidney Injury on CKD, improving - BUN/Cr 55/3.4 - Pt. may need Dialysis [facility] will discuss with patient and Nephrology - Nephro on board Dr. Garcia. Recs are appreciated: - Urology on board Dr. Valentine recs appreciated - suggest bladder irrigation with sterile water once daily - no plan to remove stents for now as per Urology - urine cx w/ yeast species started on Diflucan 100mg will continue - ID on board: c/w abx (day 10) 2- Anemia, chronic disease - H/H: 7.4/23.5 - Repeat FOBT negative - Continue I.V. Venofer 100 mg 1 bag daily for a total of 10 days 3- +C diff colitis- Improving - c/w flagyl 4- Deconditioning with Generalized weakness - PT evaluation 4- Hypertension, controlled- well controlled - Hold home BP meds for now 2/2 shock 4- Diabetes Mellitus type 2, controlled - Continue current management 5- Wound assessment - Ulcer present on Sacrum: Purple localized DTI, non blanchable, stable. - R foot: localized erythema (DTI) in plantar aspect of great toe and right heel resolving. - L foot: Stage 2 pressure ulcer noted on medial aspect of heel, stable. - Wound care on board 6- DVT prophylaxis - Heparin SC 7 - Code Status: DNR: Documentation reviewed: Status was discussed with family via Dr. Garica and made aware by Dr. Mendes.
[2017-10-29] MEDS: Sodium Chloride 0.9% 1,000 ML IV SCH (12:11)
[2017-10-29 15:31] LABS: HEMOGLOBIN 7.6 g/dL (12.0-16.0); MEAN CELL VOLUME 86.4 fl (81.0-99.0); MEAN CORPUSCULAR HEMOGLOBIN 27.5 pg (27.0-31.0); MEAN CORPUSCULAR HGB CONC 31.9 g/dL (33.0-37.0); RBC 2.75 Mil/uL (3.80-5.20); RED CELL DISTRIBUTION WIDTH 16.6 % (11.5-14.5); WHITE BLOOD COUNT 6.7 K/uL (4.8-10.8)
[2017-10-29 15:45] LABS: ALB/GLOB RATIO 0.8 (1.0-2.1); ALBUMIN 2.1 g/dL (3.5-5.0); CALCIUM 7.7 mg/dL (8.4-10.2)
[2017-10-30] MEDS: Meropenem 500 MG in Sodium Chloride 0.9% 100 ML IVPB SCH ×3 (00:06→17:00)
[2017-10-30] MEDS: Vancomycin 500 mg (Oral/Rectal USE) PO SCH ×4 (00:06→23:19)
[2017-10-30 06:01] LABS: HEMOGLOBIN 7.5 g/dL (12.0-16.0); MEAN CORPUSCULAR HEMOGLOBIN 27.4 pg (27.0-31.0); MEAN CORPUSCULAR HGB CONC 31.4 g/dL (33.0-37.0); RBC 2.73 Mil/uL (3.80-5.20); RED CELL DISTRIBUTION WIDTH 16.6 % (11.5-14.5); WHITE BLOOD COUNT 5.5 K/uL (4.8-10.8)
[2017-10-30] MEDS: Insulin Regular 100 units/ml SC SCH ×4 (06:30→22:00)
[2017-10-30 06:56] LABS: ALB/GLOB RATIO 0.8 (1.0-2.1); CALCIUM 7.6 mg/dL (8.4-10.2)
--- NOTE | 2017-10-30 07:33 | CP.PCM.PN ---
<Katelyn Pierce - Last Filed: 10/30/17 13:25> Subjective - Date & Time of Evaluation Date of Evaluation: 10/30/17 Time of Evaluation: 07:32 - Subjective Subjective: Pt. seen at bedside on morning rounding. No overnight events. Pt. with no complaints today. Pt. tolerating diet. Denies chest pain, dyspnea, chills, or abdominal pain. Afebrile. Demanding going home. Objective - Vital Signs/Intake and Output Vital Signs (last 24 hours): Temp Pulse Resp BP Pulse Ox 98.9 F 90 15 131/78 100 10/30/17 04:00 10/30/17 06:00 10/30/17 06:00 10/30/17 06:00 10/30/17 06:00 Intake and Output: 10/30/17 10/30/17 06:59 18:59 Intake Total 1000 Output Total 1300 Balance -300 - Medications Medications: Current Medications Aspirin (Ecotrin) 81 mg PO DAILY [facility] Last Admin: 10/21/17 08:49 Dose: 81 mg Atorvastatin Calcium (Lipitor) 40 mg PO QPM [facility] Last Admin: 10/21/17 17:21 Dose: Not Given Dextrose (Dextrose 50% Inj) 0 ml IV STAT PRN; Protocol PRN Reason: Hypoglycemia Protocol Dextrose (Glutose 15) 0 gm PO ONCE PRN; Protocol PRN Reason: Hypoglycemia Protocol Dextrose (Dextrose 50% Inj) 0 ml IV STAT PRN; Protocol PRN Reason: Hypoglycemia Protocol Dextrose (Glutose 15) 0 gm PO ONCE PRN; Protocol PRN Reason: Hypoglycemia Protocol Epoetin Axel (Procrit) 10,000 unit SC MWF [facility] Last Admin: 10/27/17 09:52 Dose: 10,000 unit Ergocalciferol (Drisdol 50,000 Intl Units Cap) 1 cap PO Q7D [facility] Last Admin: 10/28/17 14:06 Dose: 1 cap Glucagon (Glucagen Diagnostic Kit) 0 mg IM STAT PRN; Protocol PRN Reason: Hypoglycemia Protocol Glucagon (Glucagen Diagnostic Kit) 0 mg IM STAT PRN; Protocol PRN Reason: Hypoglycemia Protocol Heparin Sodium (Porcine) (Heparin) 5,000 units SC Q8 [facility] PRN Reason: Protocol Last Admin: 10/30/17 00:07 Dose: 5,000 units Meropenem 500 mg/ Sodium (Chloride) 100 mls @ 100 mls/hr IVPB Q8 [facility] PRN Reason: Protocol Last Admin: 10/30/17 00:06 Dose: 100 mls/hr Fluconazole (Diflucan Iv 100 Mg/50 Ml Ns) 50 mls @ 50 mls/hr IVPB DAILY [facility] PRN Reason: Protocol Last Admin: 10/29/17 09:37 Dose: 50 mls/hr Iron Sucrose 100 mg/ Sodium (Chloride) 105 mls @ 105 mls/hr IVPB DAILY [facility] Stop: 11/06/17 09:59 Last Admin: 10/29/17 10:30 Dose: 105 mls/hr Insulin Human Regular (Humulin R) 0 units SC ACHS [facility] PRN Reason: Protocol Last Admin: 10/30/17 06:30 Dose: 1 u Nystatin (Nystop Topical Powder) 1 applic TOP TID [facility] Last Admin: 10/29/17 16:04 Dose: 1 applic Pantoprazole Sodium (Protonix Inj) 40 mg IVP DAILY [facility] Last Admin: 10/29/17 08:36 Dose: 40 mg Silver Sulfadiazine (Silvadene 1% 50 Gm) 1 applic TOP DAILY [facility] Vancomycin HCl (Vancocin (Oral/Rectal Use)) 250 mg PO Q8 [facility] PRN Reason: Protocol Last Admin: 10/30/17 00:06 Dose: 250 mg - Labs Labs: 10/30/17 04:50 10/30/17 04:50 PT 12.3 Seconds (9.8-13.1) 10/20/17 19:46 INR 1.1 (0.9-1.2) 10/20/17 19:46 APTT 33.2 Seconds (25.6-37.1) D 10/21/17 04:18 - Constitutional Appears: No Acute Distress - Eye Exam Eye Exam: EOMI, PERRL - ENT Exam ENT Exam: Mucous Membranes Moist - Respiratory Exam Respiratory Exam: Clear to Ausculation Bilateral, NORMAL BREATHING PATTERN. absent: Rales, Wheezes - Cardiovascular Exam Cardiovascular Exam: REGULAR RHYTHM, +S1, +S2. absent: Tachycardia - GI/Abdominal Exam GI & Abdominal Exam: Soft, Normal Bowel Sounds. absent: Distended, Tenderness - Extremities Exam Extremities Exam: absent: Calf Tenderness - Neurological Exam Neurological Exam: Alert, Awake, Oriented x3 - Skin Additional comments: Ulcer present on Sacrum: Purple localized DTI, non blanchable. R foot: localized erythema (DTI) in plantar aspect of great toe and right heel resolving. L foot: Stage 2 pressure ulcer noted on medial aspect of heel. Assessment and Plan - Assessment and Plan (Free Text) Assessment: 77 y.o. female admitted for septic shock now resolved and acute kidney injury which is improving and also now extubated Plan: 1- Acute Kidney Injury on CKD, improving - BUN/Cr 55/3.4 - Pt. may need Dialysis meterman will discuss with patient and Nephrology - Nephro on board Dr. Garcia. Recs are appreciated: - Urology on board Dr. Valentine recs appreciated - urine cx w/ yeast species started on Diflucan 100mg will continue - ID on board: c/w abx (day 11) 2 - Anemia, chronic disease - H/H: 7.4/23.5 - Repeat FOBT negative - Continue I.V. Venofer 100 mg 1 bag daily for a total of 10 days (day 3) 3 - +C diff colitis- Improving - c/w flagyl 4 - Deconditioning with Generalized weakness - PT evaluation 5 - Hypertension, controlled- well controlled - Hold home BP meds for now 2/2 shock 6 - Diabetes Mellitus type 2, controlled - Continue current management 7 - Wound assessment - Ulcer present on Sacrum: Purple localized DTI, non blanchable, stable. - R foot: localized erythema (DTI) in plantar aspect of great toe and right heel resolving. - L foot: Stage 2 pressure ulcer noted on medial aspect of heel, stable. - Wound care on board 8 - DVT prophylaxis - Heparin SC 9 - Code Status: DNR: Documentation reviewed: Status was discussed with family via Dr. Garcia and made aware by Dr. Mendes. <Jose Juan Boswell - Last Filed: 10/31/17 06:49> Objective - Vital Signs/Intake and Output Vital Signs (last 24 hours): Temp Pulse Resp BP Pulse Ox 98.6 F 89 20 128/76 100 10/31/17 01:00 10/31/17 01:00 10/31/17 01:00 10/31/17 01:00 10/31/17 01:00 Intake and Output: 10/30/17 10/31/17 18:59 06:59 Intake Total 614 112 Output Total 1020 Balance -406 112 - Medications Medications: Current Medications Acetaminophen (Tylenol 325mg Tab) 650 mg PO Q4 PRN PRN Reason: Pain, moderate (4-7) Last Admin: 10/30/17 15:18 Dose: 650 mg Aspirin (Ecotrin) 81 mg PO DAILY [facility] Last Admin: 10/21/17 08:49 Dose: 81 mg Atorvastatin Calcium (Lipitor) 40 mg PO QPM [facility] Last Admin: 10/21/17 17:21 Dose: Not Given Dextrose (Dextrose 50% Inj) 0 ml IV STAT PRN; Protocol PRN Reason: Hypoglycemia Protocol Dextrose (Glutose 15) 0 gm PO ONCE PRN; Protocol PRN Reason: Hypoglycemia Protocol Dextrose (Dextrose 50% Inj) 0 ml IV STAT PRN; Protocol PRN Reason: Hypoglycemia Protocol Dextrose (Glutose 15) 0 gm PO ONCE PRN; Protocol PRN Reason: Hypoglycemia Protocol Epoetin Axel (Procrit) 10,000 unit SC MWF [facility] Last Admin: 10/30/17 08:52 Dose: 10,000 unit Ergocalciferol (Drisdol 50,000 Intl Units Cap) 1 cap PO Q7D [facility] Last Admin: 10/28/17 14:06 Dose: 1 cap Glucagon (Glucagen Diagnostic Kit) 0 mg IM STAT PRN; Protocol PRN Reason: Hypoglycemia Protocol Glucagon (Glucagen Diagnostic Kit) 0 mg IM STAT PRN; Protocol PRN Reason: Hypoglycemia Protocol Heparin Sodium (Porcine) (Heparin) 5,000 units SC Q8 [facility] PRN Reason: Protocol Last Admin: 10/31/17 00:12 Dose: 5,000 units Meropenem 500 mg/ Sodium (Chloride) 100 mls @ 100 mls/hr IVPB Q8 [facility] PRN Reason: Protocol Last Admin: 10/31/17 00:12 Dose: 100 mls/hr Fluconazole (Diflucan Iv 100 Mg/50 Ml Ns) 50 mls @ 50 mls/hr IVPB DAILY [facility] PRN Reason: Protocol Last Admin: 10/30/17 08:50 Dose: 50 mls/hr Iron Sucrose 100 mg/ Sodium (Chloride) 105 mls @ 105 mls/hr IVPB DAILY [facility] Stop: 11/06/17 09:59 Last Admin: 10/30/17 12:07 Dose: 105 mls/hr Insulin Human Regular (Humulin R) 0 units SC ACHS [facility] PRN Reason: Protocol Last Admin: 10/30/17 22:00 Dose: Not Given Nystatin (Nystop Topical Powder) 1 applic TOP TID [facility] Last Admin: 10/30/17 17:01 Dose: 1 applic Pantoprazole Sodium (Protonix Inj) 40 mg IVP DAILY [facility] Last Admin: 10/30/17 08:52 Dose: 40 mg Silver Sulfadiazine (Silvadene 1% 50 Gm) 1 applic TOP DAILY [facility] Last Admin: 10/30/17 12:06 Dose: 1 applic Vancomycin HCl (Vancocin (Oral/Rectal Use)) 125 mg PO Q6 [facility] PRN Reason: Protocol Last Admin: 10/31/17 05:00 Dose: 125 mg - Labs Labs: 10/31/17 05:00 10/31/17 05:00 PT 12.3 Seconds (9.8-13.1) 10/20/17 19:46 INR 1.1 (0.9-1.2) 10/20/17 19:46 APTT 33.2 Seconds (25.6-37.1) D 10/21/17 04:18 Attending/Attestation - Attestation I have personally seen and examined this patient.: Yes I have fully participated in the care of the patient.: Yes I have reviewed all pertinent clinical information, including history, physical exam and plan: Yes
[2017-10-30] MEDS: Fluconazole IV 100mg/50 ml NS 50 ML IVPB SCH (08:50)
[2017-10-30] MEDS: EPOETIN ALFA 10,000 UNIT/ML ML SC SCH (08:52)
--- NOTE | 2017-10-30 11:06 | CP.PCM.PN ---
Subjective - Date & Time of Evaluation Date of Evaluation: 10/30/17 Time of Evaluation: 14:15 - Subjective Subjective: Id Note- Pt. seen and examined in ICU today. pt. looks very good and much improved clinically. She states she wants to move about and walk . denies any fever or any sob. states is eating well. Objective - Vital Signs/Intake and Output Vital Signs (last 24 hours): Temp Pulse Resp BP Pulse Ox 98.8 F 92 H 22 134/82 98 10/30/17 08:00 10/30/17 08:00 10/30/17 08:00 10/30/17 08:00 10/30/17 08:00 Intake and Output: 10/30/17 10/30/17 06:59 18:59 Intake Total 1000 390 Output Total 1300 Balance -300 390 - Medications Medications: Current Medications Aspirin (Ecotrin) 81 mg PO DAILY [facility] Last Admin: 10/21/17 08:49 Dose: 81 mg Atorvastatin Calcium (Lipitor) 40 mg PO QPM [facility] Last Admin: 10/21/17 17:21 Dose: Not Given Dextrose (Dextrose 50% Inj) 0 ml IV STAT PRN; Protocol PRN Reason: Hypoglycemia Protocol Dextrose (Glutose 15) 0 gm PO ONCE PRN; Protocol PRN Reason: Hypoglycemia Protocol Dextrose (Dextrose 50% Inj) 0 ml IV STAT PRN; Protocol PRN Reason: Hypoglycemia Protocol Dextrose (Glutose 15) 0 gm PO ONCE PRN; Protocol PRN Reason: Hypoglycemia Protocol Epoetin Axel (Procrit) 10,000 unit SC MWF [facility] Last Admin: 10/30/17 08:52 Dose: 10,000 unit Ergocalciferol (Drisdol 50,000 Intl Units Cap) 1 cap PO Q7D [facility] Last Admin: 10/28/17 14:06 Dose: 1 cap Glucagon (Glucagen Diagnostic Kit) 0 mg IM STAT PRN; Protocol PRN Reason: Hypoglycemia Protocol Glucagon (Glucagen Diagnostic Kit) 0 mg IM STAT PRN; Protocol PRN Reason: Hypoglycemia Protocol Heparin Sodium (Porcine) (Heparin) 5,000 units SC Q8 [facility] PRN Reason: Protocol Last Admin: 10/30/17 08:50 Dose: 5,000 units Meropenem 500 mg/ Sodium (Chloride) 100 mls @ 100 mls/hr IVPB Q8 [facility] PRN Reason: Protocol Last Admin: 10/30/17 08:51 Dose: 100 mls/hr Fluconazole (Diflucan Iv 100 Mg/50 Ml Ns) 50 mls @ 50 mls/hr IVPB DAILY [facility] PRN Reason: Protocol Last Admin: 10/30/17 08:50 Dose: 50 mls/hr Iron Sucrose 100 mg/ Sodium (Chloride) 105 mls @ 105 mls/hr IVPB DAILY [facility] Stop: 11/06/17 09:59 Last Admin: 10/29/17 10:30 Dose: 105 mls/hr Insulin Human Regular (Humulin R) 0 units SC ACHS [facility] PRN Reason: Protocol Last Admin: 10/30/17 06:30 Dose: 1 u Nystatin (Nystop Topical Powder) 1 applic TOP TID [facility] Last Admin: 10/30/17 08:52 Dose: 1 applic Pantoprazole Sodium (Protonix Inj) 40 mg IVP DAILY [facility] Last Admin: 10/30/17 08:52 Dose: 40 mg Silver Sulfadiazine (Silvadene 1% 50 Gm) 1 applic TOP DAILY [facility] Vancomycin HCl (Vancocin (Oral/Rectal Use)) 250 mg PO Q8 [facility] PRN Reason: Protocol Last Admin: 10/30/17 08:53 Dose: 250 mg - Labs Labs: - Additional Findings Additional findings: - Constitutional Appears: awake , alert and in good spirits - Head Exam Head Exam: ATRAUMATIC - Respiratory Exam Additional comments: good breath sounds heard b/l - Cardiovascular Exam Cardiovascular Exam: RRR, +S1, +S2 - GI/Abdominal Exam Additional comments: , soft, NT bowel sounds heard No guarding - Extremities Exam Additional comments: 1+ LE edema B/L - Neurological Exam AAO x 3 today clay cath- cloudy urine rectal tube in place- greenish stool Laboratory Results - last 72 hr 10/27/17 10/27/17 10/27/17 07:04 17:18 18:00 WBC RBC Hgb Hct MCV MCH MCHC RDW Plt Count MPV Neut % (Auto) Lymph % (Auto) [place] % (Auto) Eos % (Auto) Baso % (Auto) Neut # (Auto) Lymph # (Auto) [place] # (Auto) Eos # (Auto) Baso # (Auto) Sodium Potassium Chloride Carbon Dioxide Anion Gap BUN Creatinine Est GFR ( Amer) Est GFR (Non-Af Amer) POC Glucose (mg/dL) 157 H Random Glucose Calcium Total Bilirubin AST ALT Alkaline Phosphatase Total Protein Albumin Globulin Albumin/Globulin Ratio PTH w/Ion &Tot Calcium 45 Urine Color Urine Clarity Urine pH Ur Specific [place] Urine Protein Urine Glucose (UA) Urine Ketones Urine Blood Urine Nitrate Urine Bilirubin Urine Urobilinogen Ur Leukocyte Esterase Urine RBC (Auto) Urine WBC Clumps (Auto) Urine Microscopic WBC Stool Occult Blood C. difficile Tox B Gene Detected H 10/27/17 10/27/17 10/27/17 20:18 23:02 23:11 WBC RBC Hgb Hct MCV MCH MCHC RDW Plt Count MPV Neut % (Auto) Lymph % (Auto) [place] % (Auto) Eos % (Auto) Baso % (Auto) Neut # (Auto) Lymph # (Auto) [place] # (Auto) Eos # (Auto) Baso # (Auto) Sodium Potassium Chloride Carbon Dioxide Anion Gap BUN Creatinine Est GFR ( Amer) Est GFR (Non-Af Amer) POC Glucose (mg/dL) 248 H 237 H Random Glucose Calcium Total Bilirubin AST ALT Alkaline Phosphatase Total Protein Albumin Globulin Albumin/Globulin Ratio PTH w/Ion &Tot Calcium Urine Color Yellow Urine Clarity Turbid Urine pH 7.0 Ur Specific [place] 1.006 Urine Protein 100 Urine Glucose (UA) >=500 Urine Ketones Negative Urine Blood Moderate Urine Nitrate Negative Urine Bilirubin Negative Urine Urobilinogen 0.2-1.0 Ur Leukocyte Esterase Mod Urine RBC (Auto) 184 H Urine WBC Clumps (Auto) Many H Urine Microscopic WBC 62791 H Stool Occult Blood C. difficile Tox B Gene 10/28/17 10/28/17 10/28/17 05:18 05:30 05:30 WBC 7.9 RBC 2.66 L Hgb 7.2 L Hct 23.0 L MCV 86.5 MCH 26.9 L MCHC 31.2 L RDW 16.5 H Plt Count 156 MPV Neut % (Auto) Lymph % (Auto) [place] % (Auto) Eos % (Auto) Baso % (Auto) Neut # (Auto) Lymph # (Auto) [place] # (Auto) Eos # (Auto) Baso # (Auto) Sodium 145 Potassium 3.4 L Chloride 106 Carbon Dioxide 28 Anion Gap 14 BUN 63 H Creatinine 3.8 H Est GFR ( Amer) 14 Est GFR (Non-Af Amer) 12 POC Glucose (mg/dL) 173 H Random Glucose 173 H Calcium 7.5 L Total Bilirubin AST ALT Alkaline Phosphatase Total Protein Albumin Globulin Albumin/Globulin Ratio PTH w/Ion &Tot Calcium Urine Color Urine Clarity Urine pH Ur Specific [place] Urine Protein Urine Glucose (UA) Urine Ketones Urine Blood Urine Nitrate Urine Bilirubin Urine Urobilinogen Ur Leukocyte Esterase Urine RBC (Auto) Urine WBC Clumps (Auto) Urine Microscopic WBC Stool Occult Blood C. difficile Tox B Gene 10/28/17 10/28/17 10/28/17 08:37 12:22 16:30 WBC RBC Hgb Hct MCV MCH MCHC RDW Plt Count MPV Neut % (Auto) Lymph % (Auto) [place] % (Auto) Eos % (Auto) Baso % (Auto) Neut # (Auto) Lymph # (Auto) [place] # (Auto) Eos # (Auto) Baso # (Auto) Sodium Potassium Chloride Carbon Dioxide Anion Gap BUN Creatinine Est GFR ( Amer) Est GFR (Non-Af Amer) POC Glucose (mg/dL) 162 H 271 H 205 H Random Glucose Calcium Total Bilirubin AST ALT Alkaline Phosphatase Total Protein Albumin Globulin Albumin/Globulin Ratio PTH w/Ion &Tot Calcium Urine Color Urine Clarity Urine pH Ur Specific [place] Urine Protein Urine Glucose (UA) Urine Ketones Urine Blood Urine Nitrate Urine Bilirubin Urine Urobilinogen Ur Leukocyte Esterase Urine RBC (Auto) Urine WBC Clumps (Auto) Urine Microscopic WBC Stool Occult Blood C. difficile Tox B Gene 10/28/17 10/28/17 10/29/17 17:12 22:20 04:18 WBC RBC Hgb Hct MCV MCH MCHC RDW Plt Count MPV Neut % (Auto) Lymph % (Auto) [place] % (Auto) Eos % (Auto) Baso % (Auto) Neut # (Auto) Lymph # (Auto) [place] # (Auto) Eos # (Auto) Baso # (Auto) Sodium Potassium Chloride Carbon Dioxide Anion Gap BUN Creatinine Est GFR ( Amer) Est GFR (Non-Af Amer) POC Glucose (mg/dL) 171 H 196 H Random Glucose Calcium Total Bilirubin AST ALT Alkaline Phosphatase Total Protein Albumin Globulin Albumin/Globulin Ratio PTH w/Ion &Tot Calcium Urine Color Urine Clarity Urine pH Ur Specific [place] Urine Protein Urine Glucose (UA) Urine Ketones Urine Blood Urine Nitrate Urine Bilirubin Urine Urobilinogen Ur Leukocyte Esterase Urine RBC (Auto) Urine WBC Clumps (Auto) Urine Microscopic WBC Stool Occult Blood Negative C. difficile Tox B Gene 10/29/17 10/29/17 10/29/17 05:20 05:20 11:26 WBC 6.7 RBC 2.69 L Hgb 7.4 L Hct 23.5 L MCV 87.2 MCH 27.3 MCHC 31.3 L RDW 16.2 H Plt Count 196 MPV 9.0 Neut % (Auto) 46.5 L Lymph % (Auto) 32.7 [place] % (Auto) 16.9 H Eos % (Auto) 3.6 Baso % (Auto) 0.3 Neut # (Auto) 3.1 Lymph # (Auto) 2.2 [place] # (Auto) 1.1 H Eos # (Auto) 0.2 Baso # (Auto) 0.0 Sodium 145 Potassium 3.7 Chloride 108 H Carbon Dioxide 24 Anion Gap 17 BUN 55 H Creatinine 3.4 H Est GFR ( Amer) 16 Est GFR (Non-Af Amer) 13 POC Glucose (mg/dL) 205 H Random Glucose 149 H Calcium 7.7 L Total Bilirubin 0.3 AST 37 H D ALT 30 Alkaline Phosphatase 78 Total Protein 4.6 L Albumin 2.1 L Globulin 2.5 Albumin/Globulin Ratio 0.8 L PTH w/Ion &Tot Calcium Urine Color Urine Clarity Urine pH Ur Specific [place] Urine Protein Urine Glucose (UA) Urine Ketones Urine Blood Urine Nitrate Urine Bilirubin Urine Urobilinogen Ur Leukocyte Esterase Urine RBC (Auto) Urine WBC Clumps (Auto) Urine Microscopic WBC Stool Occult Blood C. difficile Tox B Gene 10/29/17 10/29/17 10/29/17 14:52 14:52 16:08 WBC 6.7 RBC 2.75 L Hgb 7.6 L Hct 23.8 L MCV 86.4 MCH 27.5 MCHC 31.9 L RDW 16.6 H Plt Count 232 MPV Neut % (Auto) Lymph % (Auto) [place] % (Auto) Eos % (Auto) Baso % (Auto) Neut # (Auto) Lymph # (Auto) [place] # (Auto) Eos # (Auto) Baso # (Auto) Sodium 144 Potassium 3.8 Chloride 107 Carbon Dioxide 24 Anion Gap 17 BUN 50 H Creatinine 3.3 H Est GFR ( Amer) 16 Est GFR (Non-Af Amer) 14 POC Glucose (mg/dL) 192 H Random Glucose 188 H Calcium 7.7 L Total Bilirubin 0.3 AST 23 ALT 29 Alkaline Phosphatase 78 Total Protein 4.7 L Albumin 2.1 L Globulin 2.6 Albumin/Globulin Ratio 0.8 L PTH w/Ion &Tot Calcium Urine Color Urine Clarity Urine pH Ur Specific [place] Urine Protein Urine Glucose (UA) Urine Ketones Urine Blood Urine Nitrate Urine Bilirubin Urine Urobilinogen Ur Leukocyte Esterase Urine RBC (Auto) Urine WBC Clumps (Auto) Urine Microscopic WBC Stool Occult Blood C. difficile Tox B Gene 10/29/17 10/30/17 10/30/17 21:44 04:50 04:50 WBC 5.5 RBC 2.73 L Hgb 7.5 L Hct 23.7 L MCV 87.0 MCH 27.4 MCHC 31.4 L RDW 16.6 H Plt Count 232 MPV Neut % (Auto) Lymph % (Auto) [place] % (Auto) Eos % (Auto) Baso % (Auto) Neut # (Auto) Lymph # (Auto) [place] # (Auto) Eos # (Auto) Baso # (Auto) Sodium 142 Potassium 3.8 Chloride 107 Carbon Dioxide 24 Anion Gap 15 BUN 48 H Creatinine 2.9 H Est GFR ( Amer) 19 Est GFR (Non-Af Amer) 16 POC Glucose (mg/dL) 153 H Random Glucose 162 H Calcium 7.6 L Total Bilirubin 0.3 AST 37 H D ALT 29 Alkaline Phosphatase 74 Total Protein 4.6 L Albumin 2.0 L Globulin 2.6 Albumin/Globulin Ratio 0.8 L PTH w/Ion &Tot Calcium Urine Color Urine Clarity Urine pH Ur Specific [place] Urine Protein Urine Glucose (UA) Urine Ketones Urine Blood Urine Nitrate Urine Bilirubin Urine Urobilinogen Ur Leukocyte Esterase Urine RBC (Auto) Urine WBC Clumps (Auto) Urine Microscopic WBC Stool Occult Blood C. difficile Tox B Gene 10/30/17 10/30/17 05:17 11:39 WBC RBC Hgb Hct MCV MCH MCHC RDW Plt Count MPV Neut % (Auto) Lymph % (Auto) [place] % (Auto) Eos % (Auto) Baso % (Auto) Neut # (Auto) Lymph # (Auto) [place] # (Auto) Eos # (Auto) Baso # (Auto) Sodium Potassium Chloride Carbon Dioxide Anion Gap BUN Creatinine Est GFR ( Amer) Est GFR (Non-Af Amer) POC Glucose (mg/dL) 156 H 211 H Random Glucose Calcium Total Bilirubin AST ALT Alkaline Phosphatase Total Protein Albumin Globulin Albumin/Globulin Ratio PTH w/Ion &Tot Calcium Urine Color Urine Clarity Urine pH Ur Specific [place] Urine Protein Urine Glucose (UA) Urine Ketones Urine Blood Urine Nitrate Urine Bilirubin Urine Urobilinogen Ur Leukocyte Esterase Urine RBC (Auto) Urine WBC Clumps (Auto) Urine Microscopic WBC Stool Occult Blood C. difficile Tox B Gene Microbiology 10/27/17 20:07 Blood-Venous Blood Culture - Preliminary NO GROWTH AFTER 48 HOURS 10/27/17 20:07 Blood-Venous Blood Culture - Preliminary NO GROWTH AFTER 48 HOURS 10/27/17 09:10 Urine,Catheterized Urine Culture - Final No Growth (<1,000 CFU/ML) 10/21/17 14:48 Blood-Venous Blood Culture - Final NO GROWTH AFTER 5 DAYS 10/21/17 14:48 Blood-Venous Gram Stain - Final TEST NOT PERFORMED 10/21/17 15:40 Blood-Venous Blood Culture - Final NO GROWTH AFTER 5 DAYS 10/21/17 15:40 Blood-Venous Gram Stain - Final TEST NOT PERFORMED 10/20/17 20:00 Blood Blood Culture - Final NO GROWTH AFTER 5 DAYS 10/20/17 20:00 Blood Gram Stain - Final TEST NOT PERFORMED 10/20/17 19:46 Blood Blood Culture - Final NO GROWTH AFTER 5 DAYS 10/20/17 19:46 Blood Gram Stain - Final TEST NOT PERFORMED 10/23/17 11:40 Urine,Clay Urine Culture - Final Yeast Species 10/20/17 10:30 Naris MRSA Culture (Admit) - Final MRSA NOT DETECTED Assessment and Plan (1) Acute on chronic renal failure Status: Acute (2) Metabolic acidosis Status: Resolved (3) Septic shock Status: Acute (4) UTI (urinary tract infection) Status: Acute (5) Hyperkalemia Status: Resolved - Assessment and Plan (Free Text) Assessment: /P- 77 year old female with multiple medical conditions and noncomplaint including CKD stage 4, DM II, b/l ureteral stents ( repaced 09/2017) admitted with change in MS, lethargy was found to be hyperkalemic, metabolic acidosis, acute on chronic renal insufficiency and leukocytosis. clinically much improved. s/p extubation last week. blood cx- neg x 4 urine cx- yeast leukocytosis has resolved. stool c.diff- pos x 2 metabolic acidosis c.diff colitis leukocytosis - resolved acute on chronic renal failure s/p emergent HD - now much improved, urinating well fungurea plan- advise to continue with empiric IV meropenm day #11 (renal dose). check cxr and if no infiltartae can d/c meropenem. continue with vanco via NGT day #8 change the frequency . completed 8 days of IV flagyl foor the c.diff while she was intubated. continue with IV fluconazole for fungurea day #5 advise to replace the clay. All labs and imaging results and chart notes reviewed. ICU time 45 minutes.
[2017-10-30] MEDS: Silver Sulfadiazine 1% CREAM (50 gm) TOP SCH (12:06)
--- NOTE | 2017-10-30 12:21 | CP.CCUPN ---
CCU Subjective - Physician Review Subjective (Free Text): 10/30/17 12:18 The patient was Seen/interviewed and examined by me at the bedside during ICU round, Medical records reviewed and Management issues were discussed and formulated with the house staff. Events reviewed Clinically improving, hemodynamically improved OFF Vasopressors, Patient successfully Extubated, Patient awake, no distress. Afebrile, NSR on the monitor Awake, comfortable, NAD, on O2 supplement. Denies any chest pain, SOB or Palpitations CCU Objective - Vital Signs / Intake & Output Vital Signs (Last 4 hours): Vital Signs Temp Pulse Resp BP Pulse Ox 10/30/17 12:08 98.2 F 89 22 127/65 100 Intake and Output (Last 8hrs): Intake & Output 10/29/17 10/30/17 10/30/17 22:59 06:59 14:59 Intake Total 1660 700 490 Output Total 975 1300 Balance 685 -600 490 Weight 184 lb 8 oz Intake: IV 840 420 Intake, Piggyback 100 100 250 Oral 720 180 240 Output: Urine 900 1200 Urethral (Adams) 900 1200 Stool 75 100 - Physical Exam Head: Positive for: Atraumatic, Normocephalic. Negative for: Tenderness, Contusion Pupils: Positive for: PERRL. Negative for: Sluggish, Non-Reactive, Pinpoint Extroacular Muscles: Positive for: EOMI. Negative for: Gaze Palsy, Entrapment Conjunctiva: Positive for: Normal. Negative for: Injected, Icteric Ears: Positive for: Normal Mouth: Positive for: Moist Mucous Membranes Pharnyx: Positive for: Normal Nose (Internal): Positive for: Normal Inspection, No Active Bleeding Neck: Positive for: Normal Range of Motion, Trachea Midline. Negative for: Meningeal Signs, MIDLINE TENDERNESS, Paraspinal Tenderness, JVD, Lymphadenopathy , Bruit, Other Respiratory/Chest: Positive for: Decreased Breath Sounds, Rales, Rhonchi. Negative for: Respiratory Distress, Accessory Muscle Use, Wheezes, Tachypneic Cardiovascular: Positive for: Regular Rate and Rhythm, Normal S1, S2, Peripheal Pulses Present. Negative for: Murmurs, Irregular Rhythm, Tachycardic, Bradycardic Abdomen: Positive for: Distention, Normal Bowel Sounds. Negative for: Tenderness Upper Extremity: Positive for: Normal Inspection Lower Extremity: Positive for: Normal Inspection Neurological: Positive for: GCS=15, CN II-XII Intact, Speech Normal, Motor Func Grossly Intact, Normal Sensory Function Psychiatric: Positive for: Alert, Oriented x 3 - Medications Active Medications: Active Medications Generic Name Dose Route Start Last Admin Trade Name Freq PRN Reason Stop Dose Admin Aspirin 81 mg 10/21/17 09:00 10/21/17 08:49 Ecotrin PO 81 mg DAILY [facility] Administration Atorvastatin Calcium 40 mg 10/21/17 18:00 10/21/17 17:21 Lipitor PO Not Given QPM [facility] Dextrose 0 ml 10/21/17 00:29 Dextrose 50% Inj IV STAT PRN Hypoglycemia Protocol Protocol Dextrose 0 gm 10/21/17 00:29 Glutose 15 PO ONCE PRN Hypoglycemia Protocol Protocol Dextrose 0 ml 10/21/17 11:45 Dextrose 50% Inj IV STAT PRN Hypoglycemia Protocol Protocol Dextrose 0 gm 10/21/17 11:45 Glutose 15 PO ONCE PRN Hypoglycemia Protocol Protocol Epoetin Axel 10,000 unit 10/23/17 09:00 10/30/17 08:52 Procrit SC 10,000 unit MWF [facility] Administration Ergocalciferol 1 cap 10/28/17 12:00 10/28/17 14:06 Drisdol 50,000 Intl Units Cap PO 1 cap Q7D [facility] Administration Glucagon 0 mg 10/21/17 00:29 Glucagen Diagnostic Kit IM STAT PRN Hypoglycemia Protocol Protocol Glucagon 0 mg 10/21/17 11:45 Glucagen Diagnostic Kit IM STAT PRN Hypoglycemia Protocol Protocol Heparin Sodium (Porcine) 5,000 units 10/21/17 09:00 10/30/17 08:50 Heparin SC 5,000 units Q8 [facility] Administration Protocol Meropenem 500 mg/ Sodium 100 mls @ 100 mls/hr 10/21/17 10:19 10/30/17 08:51 Chloride IVPB 100 mls/hr Q8 [facility] Administration Protocol Fluconazole 50 mls @ 50 mls/hr 10/26/17 13:30 10/30/17 08:50 Diflucan Iv 100 Mg/50 Ml Ns IVPB 50 mls/hr DAILY [facility] Administration Protocol Iron Sucrose 100 mg/ Sodium 105 mls @ 105 mls/hr 10/28/17 12:00 10/30/17 12: 07 Chloride IVPB 11/06/17 09:59 105 mls/hr DAILY [facility] Administration Insulin Human Regular 0 units 10/29/17 06:00 10/30/17 12:05 Humulin R SC 2 u ACHS [facility] Administration Protocol Nystatin 1 applic 10/23/17 17:00 10/30/17 12:06 Nystop Topical Powder TOP 1 applic TID [facility] Administration Pantoprazole Sodium 40 mg 10/22/17 09:00 10/30/17 08:52 Protonix Inj IVP 40 mg DAILY [facility] Administration Silver Sulfadiazine 1 applic 10/30/17 09:00 10/30/17 12:06 Silvadene 1% 50 Gm TOP 1 applic DAILY [facility] Administration Vancomycin HCl 250 mg 10/28/17 12:12 10/30/17 08:53 Vancocin (Oral/Rectal Use) PO 250 mg Q8 [facility] Administration Protocol - Patient Studies Lab Studies: Microbiology Studies 10/27/17 20:07 Blood Culture - Preliminary Blood-Venous NO GROWTH AFTER 48 HOURS 10/27/17 20:07 Blood Culture - Preliminary Blood-Venous NO GROWTH AFTER 48 HOURS Lab Studies 10/30/17 10/30/17 10/30/17 Range/Units 11:39 05:17 04:50 WBC (4.8-10.8) K/uL RBC (3.80-5.20) Mil/uL Hgb (12.0-16.0) g/dL Hct (34.0-47.0) % MCV (81.0-99.0) fl MCH (27.0-31.0) pg MCHC (33.0-37.0) g/dL RDW (11.5-14.5) % Plt Count (130-400) K/uL Sodium 142 (132-148) mmol/l Potassium 3.8 (3.6-5.0) MMOL/L Chloride 107 (98-107) mmol/L Carbon Dioxide 24 (22-30) mmol/L Anion Gap 15 (10-20) BUN 48 H (7-17) mg/dl Creatinine 2.9 H (0.7-1.2) mg/dl Est GFR ( Amer) 19 Est GFR (Non-Af Amer) 16 POC Glucose (mg/dL) 211 H 156 H (65-110) mg/dL Random Glucose 162 H (65-105) mg/dL Calcium 7.6 L (8.4-10.2) mg/dL Total Bilirubin 0.3 (0.2-1.3) mg/dl AST 37 H D (14-36) U/L ALT 29 (9-52) U/L Alkaline Phosphatase 74 (38-126) U/L Total Protein 4.6 L (6.3-8.2) G/DL Albumin 2.0 L (3.5-5.0) g/dL Globulin 2.6 (2.2-3.9) gm/dL Albumin/Globulin Ratio 0.8 L (1.0-2.1) C. difficile Tox B Gene (Not Detected) 10/30/17 10/29/17 10/29/17 Range/Units 04:50 21:44 16:08 WBC 5.5 (4.8-10.8) K/uL RBC 2.73 L (3.80-5.20) Mil/uL Hgb 7.5 L (12.0-16.0) g/dL Hct 23.7 L (34.0-47.0) % MCV 87.0 (81.0-99.0) fl MCH 27.4 (27.0-31.0) pg MCHC 31.4 L (33.0-37.0) g/dL RDW 16.6 H (11.5-14.5) % Plt Count 232 (130-400) K/uL Sodium (132-148) mmol/l Potassium (3.6-5.0) MMOL/L Chloride (98-107) mmol/L Carbon Dioxide (22-30) mmol/L Anion Gap (10-20) BUN (7-17) mg/dl Creatinine (0.7-1.2) mg/dl Est GFR ( Amer) Est GFR (Non-Af Amer) POC Glucose (mg/dL) 153 H 192 H (65-110) mg/dL Random Glucose (65-105) mg/dL Calcium (8.4-10.2) mg/dL Total Bilirubin (0.2-1.3) mg/dl AST (14-36) U/L ALT (9-52) U/L Alkaline Phosphatase (38-126) U/L Total Protein (6.3-8.2) G/DL Albumin (3.5-5.0) g/dL Globulin (2.2-3.9) gm/dL Albumin/Globulin Ratio (1.0-2.1) C. difficile Tox B Gene (Not Detected) 10/29/17 10/29/17 10/27/17 Range/Units 14:52 14:52 18:00 WBC 6.7 (4.8-10.8) K/uL RBC 2.75 L (3.80-5.20) Mil/uL Hgb 7.6 L (12.0-16.0) g/dL Hct 23.8 L (34.0-47.0) % MCV 86.4 (81.0-99.0) fl MCH 27.5 (27.0-31.0) pg MCHC 31.9 L (33.0-37.0) g/dL RDW 16.6 H (11.5-14.5) % Plt Count 232 (130-400) K/uL Sodium 144 (132-148) mmol/l Potassium 3.8 (3.6-5.0) MMOL/L Chloride 107 (98-107) mmol/L Carbon Dioxide 24 (22-30) mmol/L Anion Gap 17 (10-20) BUN 50 H (7-17) mg/dl Creatinine 3.3 H (0.7-1.2) mg/dl Est GFR ( Amer) 16 Est GFR (Non-Af Amer) 14 POC Glucose (mg/dL) (65-110) mg/dL Random Glucose 188 H (65-105) mg/dL Calcium 7.7 L (8.4-10.2) mg/dL Total Bilirubin 0.3 (0.2-1.3) mg/dl AST 23 (14-36) U/L ALT 29 (9-52) U/L Alkaline Phosphatase 78 (38-126) U/L Total Protein 4.7 L (6.3-8.2) G/DL Albumin 2.1 L (3.5-5.0) g/dL Globulin 2.6 (2.2-3.9) gm/dL Albumin/Globulin Ratio 0.8 L (1.0-2.1) C. difficile Tox B Gene Detected H (Not Detected) Laboratory Results - last 24 hr 10/27/17 10/29/17 10/29/17 18:00 14:52 14:52 WBC 6.7 RBC 2.75 L Hgb 7.6 L Hct 23.8 L MCV 86.4 MCH 27.5 MCHC 31.9 L RDW 16.6 H Plt Count 232 Sodium 144 Potassium 3.8 Chloride 107 Carbon Dioxide 24 Anion Gap 17 BUN 50 H Creatinine 3.3 H Est GFR ( Amer) 16 Est GFR (Non-Af Amer) 14 POC Glucose (mg/dL) Random Glucose 188 H Calcium 7.7 L Total Bilirubin 0.3 AST 23 ALT 29 Alkaline Phosphatase 78 Total Protein 4.7 L Albumin 2.1 L Globulin 2.6 Albumin/Globulin Ratio 0.8 L C. difficile Tox B Gene Detected H 10/29/17 10/29/17 10/30/17 16:08 21:44 04:50 WBC 5.5 RBC 2.73 L Hgb 7.5 L Hct 23.7 L MCV 87.0 MCH 27.4 MCHC 31.4 L RDW 16.6 H Plt Count 232 Sodium Potassium Chloride Carbon Dioxide Anion Gap BUN Creatinine Est GFR ( Amer) Est GFR (Non-Af Amer) POC Glucose (mg/dL) 192 H 153 H Random Glucose Calcium Total Bilirubin AST ALT Alkaline Phosphatase Total Protein Albumin Globulin Albumin/Globulin Ratio C. difficile Tox B Gene 10/30/17 10/30/17 10/30/17 04:50 05:17 11:39 WBC RBC Hgb Hct MCV MCH MCHC RDW Plt Count Sodium 142 Potassium 3.8 Chloride 107 Carbon Dioxide 24 Anion Gap 15 BUN 48 H Creatinine 2.9 H Est GFR ( Amer) 19 Est GFR (Non-Af Amer) 16 POC Glucose (mg/dL) 156 H 211 H Random Glucose 162 H Calcium 7.6 L Total Bilirubin 0.3 AST 37 H D ALT 29 Alkaline Phosphatase 74 Total Protein 4.6 L Albumin 2.0 L Globulin 2.6 Albumin/Globulin Ratio 0.8 L C. difficile Tox B Gene Fingerstick Blood Sugar Results: 211 Review of Systems - Cardiovascular Cardiovascular: absent: As Per HPI, Acrocyanosis, Chest Pain, Chest Pain at Rest , Chest Pain with Activity, Claudication, Diaphoresis, Dyspnea, Dyspnea on Exertion, Edema, Irregular Heart Rhythm, Pain Radiating to Arm/Neck/Jaw, Leg Edema, Leg Ulcers, Lightheadedness, Orthopnea, Palpitations, Paroxysmal Nocturnal Dyspnea, Pedal Edema, Radiating Pain, Rapid Heart Rate, Slow Heart Rate, Syncope, Other, UNREMARKABLE Critical Care Progress Note - Extremities/Vascular Does the Patient have a Central Venous Catheter?: Yes Does the Patient need a Central Venous Catheter?: Yes Does the Patient have a Adams Catheter?: Yes Does the Patient need a Adams Catheter?: Yes - Nutrition Nutrition: Nutrition Category Date Time Status Dysphagia/Modified Consistency Diet [DIET] Diets 10/28/17 Dinner Active Assessment/Plan (1) Acute respiratory failure with hypoxia Current Visit: Yes Status: Acute Priority: High Comment: Clinically improving, hemodynamically improved OFF Vasopressors, Patient successfully Extubated Wean off Fio2 as tolerated Diuresis Strict I&O, negative fluid balance Aggressive pulmonary toilet, chest PT, suctioning IV antibiotics, Continue IV Vancomycin, meropenem and Fluconazole (2) Septic shock Current Visit: Yes Status: Acute Priority: High Comment: Resolved IV antibiotics, Continue IV Vancomycin, meropenem and Fluconazole Off levophed Maintain MAP 65-75 (3) Acute on chronic renal failure Current Visit: Yes Status: Acute Priority: High Comment: Acute kidney injury likely multifactorial due to circulatory failure, Obstructive ueopathy and septic shock Stable Bun/Cr HD as pe renal (4) Metabolic acidosis Current Visit: Yes Status: Resolved Priority: High Comment: Improved with HD and bicarb drip (5) Acute on chronic renal failure Current Visit: No Status: Acute Comment: HD as per renal (6) UTI (urinary tract infection) with pyuria Current Visit: Yes Status: Acute Priority: High (7) Obstructive uropathy Current Visit: Yes Status: Acute Priority: Medium
--- NOTE | 2017-10-30 15:28 | RAD ---
PROCEDURE: CHEST RADIOGRAPH, 1 VIEW HISTORY: recently extubated COMPARISON: 10/27/2017 FINDINGS: LUNGS: Clear. PLEURA: No pneumothorax or pleural fluid seen. CARDIOVASCULAR: No radiographic findings to suggest acute or significant cardiovascular disease. OSSEOUS STRUCTURES: No significant abnormalities. VISUALIZED UPPER ABDOMEN: Normal. OTHER FINDINGS: None. IMPRESSION: No active disease. No acute/significant interval changes.
--- NOTE | 2017-10-30 15:53 | CP.PCM.CON ---
History of Present Illness - History of Present Illness History of Present Illness: pt is 77 y/o female with PMHx uncontrolled IDDM2, HTN, CKD4, Hydronephrosis s/p bilateral stenting, chronic kidney disease( no in Dialysis) who was brought to ER by EMS, accompanied by her family for evaluation of altered mental status. As per patient's son. patient has had AMS for the past 2-3 days, consult requested for evaluation of capacity to make decision ,as pt has been neglecting her medical care and non compliant with her medications which resulted in her current clinical presentation pt on evaluation was very tearful and depressed, pt has previous diagnosis of depression but non compliant with her medications, her depression started four years ago after both her and mother in the same year, pt has three children but she has conflict with the daughter and one of her sons and has not seen them in at least two years pt reported she feels she has no purpose to live with her current social situation, when asked about non compliance with her medications, pt able to verbalize the reasons why she needs to take her medications, able to verbalize the risks and benefits of not taking her medications and also understands that her current health condition is because of purposefuly neglecting the care she needs pt oriented to person place and time and at the current mental status does have the capacity to make decision Past Patient History - Infectious Disease Hx of Infectious Diseases: None - Past Medical History & Family History Past Medical History?: Yes - Past Social History Smoking Status: Never Smoked - CARDIAC Hx Hypercholesterolemia: Yes Hx Hypertension: Yes - PULMONARY Hx Chronic Obstructive Pulmonary Disease (COPD): Yes Hx Pneumonia: Yes - NEUROLOGICAL Hx Neurological Disorder: No - HEENT Hx HEENT Problems: No - RENAL Hx Chronic Kidney Disease: Yes - ENDOCRINE/METABOLIC Hx Endocrine Disorders: Yes Hx Diabetes Mellitus Type 2: Yes - HEMATOLOGICAL/ONCOLOGICAL Hx Blood Disorders: No - INTEGUMENTARY Hx Dermatological Problems: No - MUSCULOSKELETAL/RHEUMATOLOGICAL Hx Arthritis: Yes - GASTROINTESTINAL Hx Gastrointestinal Disorders: No - GENITOURINARY/GYNECOLOGICAL Hx Genitourinary Disorders: Yes Hx Incontinence: Yes - PSYCHIATRIC Hx Anxiety: Yes Hx Depression: Yes - SURGICAL HISTORY Hx Tonsillectomy: Yes - ANESTHESIA Hx Anesthesia: Yes Hx Anesthesia Reactions: No Hx Malignant Hyperthermia: No Meds Allergies/Adverse Reactions: Allergies Allergy/AdvReac Type Severity Reaction Status Date / Time No Known Allergies Allergy Verified 05/08/17 21:15 - Medications Medications: Current Medications Acetaminophen (Tylenol 325mg Tab) 650 mg PO Q4 PRN PRN Reason: Pain, moderate (4-7) Last Admin: 10/30/17 15:18 Dose: 650 mg Aspirin (Ecotrin) 81 mg PO DAILY [facility] Last Admin: 10/21/17 08:49 Dose: 81 mg Atorvastatin Calcium (Lipitor) 40 mg PO QPM [facility] Last Admin: 10/21/17 17:21 Dose: Not Given Dextrose (Dextrose 50% Inj) 0 ml IV STAT PRN; Protocol PRN Reason: Hypoglycemia Protocol Dextrose (Glutose 15) 0 gm PO ONCE PRN; Protocol PRN Reason: Hypoglycemia Protocol Dextrose (Dextrose 50% Inj) 0 ml IV STAT PRN; Protocol PRN Reason: Hypoglycemia Protocol Dextrose (Glutose 15) 0 gm PO ONCE PRN; Protocol PRN Reason: Hypoglycemia Protocol Epoetin Axel (Procrit) 10,000 unit SC MWF [facility] Last Admin: 10/30/17 08:52 Dose: 10,000 unit Ergocalciferol (Drisdol 50,000 Intl Units Cap) 1 cap PO Q7D [facility] Last Admin: 10/28/17 14:06 Dose: 1 cap Glucagon (Glucagen Diagnostic Kit) 0 mg IM STAT PRN; Protocol PRN Reason: Hypoglycemia Protocol Glucagon (Glucagen Diagnostic Kit) 0 mg IM STAT PRN; Protocol PRN Reason: Hypoglycemia Protocol Heparin Sodium (Porcine) (Heparin) 5,000 units SC Q8 [facility] PRN Reason: Protocol Last Admin: 10/30/17 08:50 Dose: 5,000 units Meropenem 500 mg/ Sodium (Chloride) 100 mls @ 100 mls/hr IVPB Q8 [facility] PRN Reason: Protocol Last Admin: 10/30/17 08:51 Dose: 100 mls/hr Fluconazole (Diflucan Iv 100 Mg/50 Ml Ns) 50 mls @ 50 mls/hr IVPB DAILY [facility] PRN Reason: Protocol Last Admin: 10/30/17 08:50 Dose: 50 mls/hr Iron Sucrose 100 mg/ Sodium (Chloride) 105 mls @ 105 mls/hr IVPB DAILY [facility] Stop: 11/06/17 09:59 Last Admin: 10/30/17 12:07 Dose: 105 mls/hr Insulin Human Regular (Humulin R) 0 units SC ACHS [facility] PRN Reason: Protocol Last Admin: 10/30/17 12:05 Dose: 2 u Nystatin (Nystop Topical Powder) 1 applic TOP TID [facility] Last Admin: 10/30/17 12:06 Dose: 1 applic Pantoprazole Sodium (Protonix Inj) 40 mg IVP DAILY [facility] Last Admin: 10/30/17 08:52 Dose: 40 mg Silver Sulfadiazine (Silvadene 1% 50 Gm) 1 applic TOP DAILY [facility] Last Admin: 10/30/17 12:06 Dose: 1 applic Vancomycin HCl (Vancocin (Oral/Rectal Use)) 125 mg PO Q6 [facility] PRN Reason: Protocol Physical Exam - Psychiatric Exam Additional comments: pt seen in bed , partial eye contact, speech soft and slow , mood very sad affect sad depressed and tearful, thought form coherent denied any current suicidal or homicidal ideations, denied perceptual disturbances, alert awake, oriented to person and place, poor insight poor judgment Results - Vital Signs Recent Vital Signs: Last Vital Signs Temp 98.2 F 10/30/17 12:08 Pulse 92 H 10/30/17 13:03 Resp 22 10/30/17 12:08 BP 127/65 10/30/17 12:08 Pulse Ox 100 10/30/17 12:08 - Labs Result Diagrams: 10/30/17 04:50 10/30/17 04:50 Labs: Laboratory Results - last 24 hr 10/27/17 10/27/17 10/29/17 07:04 18:00 14:52 WBC 6.7 RBC 2.75 L Hgb 7.6 L Hct 23.8 L MCV 86.4 MCH 27.5 MCHC 31.9 L RDW 16.6 H Plt Count 232 Sodium Potassium Chloride Carbon Dioxide Anion Gap BUN Creatinine Est GFR ( Amer) Est GFR (Non-Af Amer) POC Glucose (mg/dL) Random Glucose Calcium Total Bilirubin AST ALT Alkaline Phosphatase Total Protein Albumin Globulin Albumin/Globulin Ratio PTH w/Ion &Tot Calcium 45 C. difficile Tox B Gene Detected H 10/29/17 10/29/17 10/29/17 14:52 16:08 21:44 WBC RBC Hgb Hct MCV MCH MCHC RDW Plt Count Sodium 144 Potassium 3.8 Chloride 107 Carbon Dioxide 24 Anion Gap 17 BUN 50 H Creatinine 3.3 H Est GFR ( Amer) 16 Est GFR (Non-Af Amer) 14 POC Glucose (mg/dL) 192 H 153 H Random Glucose 188 H Calcium 7.7 L Total Bilirubin 0.3 AST 23 ALT 29 Alkaline Phosphatase 78 Total Protein 4.7 L Albumin 2.1 L Globulin 2.6 Albumin/Globulin Ratio 0.8 L PTH w/Ion &Tot Calcium C. difficile Tox B Gene 10/30/17 10/30/17 10/30/17 04:50 04:50 05:17 WBC 5.5 RBC 2.73 L Hgb 7.5 L Hct 23.7 L MCV 87.0 MCH 27.4 MCHC 31.4 L RDW 16.6 H Plt Count 232 Sodium 142 Potassium 3.8 Chloride 107 Carbon Dioxide 24 Anion Gap 15 BUN 48 H Creatinine 2.9 H Est GFR ( Amer) 19 Est GFR (Non-Af Amer) 16 POC Glucose (mg/dL) 156 H Random Glucose 162 H Calcium 7.6 L Total Bilirubin 0.3 AST 37 H D ALT 29 Alkaline Phosphatase 74 Total Protein 4.6 L Albumin 2.0 L Globulin 2.6 Albumin/Globulin Ratio 0.8 L PTH w/Ion &Tot Calcium C. difficile Tox B Gene 10/30/17 11:39 WBC RBC Hgb Hct MCV MCH MCHC RDW Plt Count Sodium Potassium Chloride Carbon Dioxide Anion Gap BUN Creatinine Est GFR ( Amer) Est GFR (Non-Af Amer) POC Glucose (mg/dL) 211 H Random Glucose Calcium Total Bilirubin AST ALT Alkaline Phosphatase Total Protein Albumin Globulin Albumin/Globulin Ratio PTH w/Ion &Tot Calcium C. difficile Tox B Gene Assessment & Plan - Assessment and Plan (Free Text) Assessment: major depression recurrent severe Plan: pt at current mental status presenting with severe depression, pt needs psychiatric hospitalization as at current mental status she has limited insight into her psychiatric condition which is affecting her medical condition pt was hesitant when offered admission to psychiatry for stabilization, pt needs to be offered voluntary admission to psychiatry on medical clearence, if refuses, pt needs to be screened for involuntary admission recommend starting lexapro 5mg daily
--- NOTE | 2017-10-30 19:44 | CP.PCM.PN ---
Subjective - Date & Time of Evaluation Date of Evaluation: 10/30/17 Time of Evaluation: 19:00 - Subjective Subjective: Feels well, tolerating diet; no shortness of breath; Objective - Vital Signs/Intake and Output Vital Signs (last 24 hours): Temp Pulse Resp BP Pulse Ox 98.2 F 75 11 L 120/68 100 10/30/17 16:18 10/30/17 16:18 10/30/17 16:18 10/30/17 16:18 10/30/17 15:51 Intake and Output: 10/30/17 10/31/17 18:59 06:59 Intake Total 614 Output Total 1020 Balance -406 - Medications Medications: Current Medications Acetaminophen (Tylenol 325mg Tab) 650 mg PO Q4 PRN PRN Reason: Pain, moderate (4-7) Last Admin: 10/30/17 15:18 Dose: 650 mg Aspirin (Ecotrin) 81 mg PO DAILY [facility] Last Admin: 10/21/17 08:49 Dose: 81 mg Atorvastatin Calcium (Lipitor) 40 mg PO QPM [facility] Last Admin: 10/21/17 17:21 Dose: Not Given Dextrose (Dextrose 50% Inj) 0 ml IV STAT PRN; Protocol PRN Reason: Hypoglycemia Protocol Dextrose (Glutose 15) 0 gm PO ONCE PRN; Protocol PRN Reason: Hypoglycemia Protocol Dextrose (Dextrose 50% Inj) 0 ml IV STAT PRN; Protocol PRN Reason: Hypoglycemia Protocol Dextrose (Glutose 15) 0 gm PO ONCE PRN; Protocol PRN Reason: Hypoglycemia Protocol Epoetin Axel (Procrit) 10,000 unit SC MWF [facility] Last Admin: 10/30/17 08:52 Dose: 10,000 unit Ergocalciferol (Drisdol 50,000 Intl Units Cap) 1 cap PO Q7D [facility] Last Admin: 10/28/17 14:06 Dose: 1 cap Glucagon (Glucagen Diagnostic Kit) 0 mg IM STAT PRN; Protocol PRN Reason: Hypoglycemia Protocol Glucagon (Glucagen Diagnostic Kit) 0 mg IM STAT PRN; Protocol PRN Reason: Hypoglycemia Protocol Heparin Sodium (Porcine) (Heparin) 5,000 units SC Q8 [facility] PRN Reason: Protocol Last Admin: 10/30/17 16:58 Dose: 5,000 units Meropenem 500 mg/ Sodium (Chloride) 100 mls @ 100 mls/hr IVPB Q8 [facility] PRN Reason: Protocol Last Admin: 10/30/17 17:00 Dose: 100 mls/hr Fluconazole (Diflucan Iv 100 Mg/50 Ml Ns) 50 mls @ 50 mls/hr IVPB DAILY [facility] PRN Reason: Protocol Last Admin: 10/30/17 08:50 Dose: 50 mls/hr Iron Sucrose 100 mg/ Sodium (Chloride) 105 mls @ 105 mls/hr IVPB DAILY [facility] Stop: 11/06/17 09:59 Last Admin: 10/30/17 12:07 Dose: 105 mls/hr Insulin Human Regular (Humulin R) 0 units SC ACHS [facility] PRN Reason: Protocol Last Admin: 10/30/17 16:59 Dose: 2 u Nystatin (Nystop Topical Powder) 1 applic TOP TID [facility] Last Admin: 10/30/17 17:01 Dose: 1 applic Pantoprazole Sodium (Protonix Inj) 40 mg IVP DAILY [facility] Last Admin: 10/30/17 08:52 Dose: 40 mg Silver Sulfadiazine (Silvadene 1% 50 Gm) 1 applic TOP DAILY [facility] Last Admin: 10/30/17 12:06 Dose: 1 applic Vancomycin HCl (Vancocin (Oral/Rectal Use)) 125 mg PO Q6 [facility] PRN Reason: Protocol Last Admin: 10/30/17 17:02 Dose: 125 mg - Labs Labs: 10/30/17 04:50 10/30/17 04:50 PT 12.3 Seconds (9.8-13.1) 10/20/17 19:46 INR 1.1 (0.9-1.2) 10/20/17 19:46 APTT 33.2 Seconds (25.6-37.1) D 10/21/17 04:18 - Constitutional Appears: Non-toxic, No Acute Distress - Eye Exam Eye Exam: absent: Scleral icterus - ENT Exam ENT Exam: Mucous Membranes Moist - Respiratory Exam Respiratory Exam: Clear to Ausculation Bilateral. absent: Respiratory Distress - Cardiovascular Exam Cardiovascular Exam: +S1, +S2. absent: Gallop - GI/Abdominal Exam GI & Abdominal Exam: Soft. absent: Distended, Tenderness - Exam Exam: absent: Bladder Distension - Extremities Exam Additional comments: b/l pedal edema; - Neurological Exam Neurological Exam: Alert, Awake - Psychiatric Exam Psychiatric exam: Normal Mood. absent: Agitated - Skin Skin Exam: Warm. absent: Cyanosis Assessment and Plan (1) Acute renal failure Assessment & Plan: NINA on CKD IV; renal function continues to improve; last HD 6 days ago; stable electrolyte and volume status; -will monitor off IVF; -continue to avoid nephrotoxic agents; -if no more significant improvement in serum creat over next couple of days, should have vascular surgery consult for AVF creation to prepare for HD in the near future (~6-12 months); Status: Acute (2) Metabolic acidosis Status: Resolved (3) Hyperkalemia Status: Resolved (4) Septic shock Assessment & Plan: Still question of urosepsis from infected ureteral stents as patient continues to have significant pyuria; needs to be monitored closely off antibiotics before we can say stents are not infected; continue to dose abx for CrCl < 20 ml /min; Status: Acute (5) Anemia Assessment & Plan: Due to renal failure/chronic disease; continue IV iron loading and EPO qMWF; Status: Acute (6) Chronic kidney disease (CKD), stage IV (severe) Assessment & Plan: Proteinuric kidney disease; multifactorial; PTH normal (surprisingly); see above ; Status: Chronic
[2017-10-31] MEDS: Meropenem 500 MG in Sodium Chloride 0.9% 100 ML IVPB SCH ×3 (00:12→17:38)
[2017-10-31] MEDS: Vancomycin 500 mg (Oral/Rectal USE) PO SCH ×4 (05:00→21:47)
[2017-10-31 05:55] LABS: BASO % 0.7 % (0.0-2.0); EOS # 0.2 K/uL (0.0-0.7); EOS % 3.9 % (0.0-4.0); HEMOGLOBIN 7.5 g/dL (12.0-16.0); LYMPH # 2.3 K/uL (1.0-4.3); LYMPH % 39.7 % (20.0-40.0); MEAN CELL VOLUME 87.3 fl (81.0-99.0); MEAN CORPUSCULAR HEMOGLOBIN 27.3 pg (27.0-31.0); MEAN CORPUSCULAR HGB CONC 31.3 g/dL (33.0-37.0); MEAN PLATELET VOLUME 8.3 fl (7.2-11.7); MONO # 0.8 K/uL (0.0-0.8); MONO % 14.4 % (0.0-10.0); NEUT # 2.4 K/uL (1.8-7.0); NEUT % 41.3 % (50.0-75.0); NRBC % 0.3 % (0.0-0.0); RBC 2.75 Mil/uL (3.80-5.20); RED CELL DISTRIBUTION WIDTH 16.6 % (11.5-14.5); WHITE BLOOD COUNT 5.7 K/uL (4.8-10.8)
[2017-10-31 05:58] LABS: CALCIUM 7.6 mg/dL (8.4-10.2)
[2017-10-31] MEDS: Silver Sulfadiazine 1% CREAM (50 gm) TOP SCH (08:27)
--- NOTE | 2017-10-31 08:33 | CP.PCM.PN ---
<Katelyn Pierce - Last Filed: 10/31/17 11:31> Subjective - Date & Time of Evaluation Date of Evaluation: 10/31/17 Time of Evaluation: 07:00 - Subjective Subjective: Pt. seen at bedside on morning rounding. No overnight events. Reports feeling better. Pt. tolerating diet. Denies chest pain, dyspnea, chills, or abdominal pain. Afebrile. Stable for transfer to telemetry. Objective - Vital Signs/Intake and Output Vital Signs (last 24 hours): Temp Pulse Resp BP Pulse Ox 98.2 F 77 16 120/77 100 10/31/17 08:00 10/31/17 08:00 10/31/17 08:00 10/31/17 08:00 10/31/17 08:00 Intake and Output: 10/31/17 10/31/17 06:59 18:59 Intake Total 120 Output Total 1200 Balance -1080 - Medications Medications: Current Medications Acetaminophen (Tylenol 325mg Tab) 650 mg PO Q4 PRN PRN Reason: Pain, moderate (4-7) Last Admin: 10/30/17 15:18 Dose: 650 mg Aspirin (Ecotrin) 81 mg PO DAILY [facility] Last Admin: 10/21/17 08:49 Dose: 81 mg Atorvastatin Calcium (Lipitor) 40 mg PO QPM [facility] Last Admin: 10/21/17 17:21 Dose: Not Given Dextrose (Dextrose 50% Inj) 0 ml IV STAT PRN; Protocol PRN Reason: Hypoglycemia Protocol Dextrose (Glutose 15) 0 gm PO ONCE PRN; Protocol PRN Reason: Hypoglycemia Protocol Dextrose (Dextrose 50% Inj) 0 ml IV STAT PRN; Protocol PRN Reason: Hypoglycemia Protocol Dextrose (Glutose 15) 0 gm PO ONCE PRN; Protocol PRN Reason: Hypoglycemia Protocol Epoetin Axel (Procrit) 10,000 unit SC MWF [facility] Last Admin: 10/30/17 08:52 Dose: 10,000 unit Ergocalciferol (Drisdol 50,000 Intl Units Cap) 1 cap PO Q7D [facility] Last Admin: 10/28/17 14:06 Dose: 1 cap Glucagon (Glucagen Diagnostic Kit) 0 mg IM STAT PRN; Protocol PRN Reason: Hypoglycemia Protocol Glucagon (Glucagen Diagnostic Kit) 0 mg IM STAT PRN; Protocol PRN Reason: Hypoglycemia Protocol Heparin Sodium (Porcine) (Heparin) 5,000 units SC Q8 [facility] PRN Reason: Protocol Last Admin: 10/31/17 08:26 Dose: 5,000 units Meropenem 500 mg/ Sodium (Chloride) 100 mls @ 100 mls/hr IVPB Q8 [facility] PRN Reason: Protocol Last Admin: 10/31/17 00:12 Dose: 100 mls/hr Fluconazole (Diflucan Iv 100 Mg/50 Ml Ns) 50 mls @ 50 mls/hr IVPB DAILY [facility] PRN Reason: Protocol Last Admin: 10/30/17 08:50 Dose: 50 mls/hr Iron Sucrose 100 mg/ Sodium (Chloride) 105 mls @ 105 mls/hr IVPB DAILY [facility] Stop: 11/06/17 09:59 Last Admin: 10/30/17 12:07 Dose: 105 mls/hr Insulin Human Regular (Humulin R) 0 units SC ACHS [facility] PRN Reason: Protocol Last Admin: 10/30/17 22:00 Dose: Not Given Nystatin (Nystop Topical Powder) 1 applic TOP TID [facility] Last Admin: 10/31/17 08:27 Dose: 1 applic Pantoprazole Sodium (Protonix Inj) 40 mg IVP DAILY [facility] Last Admin: 10/31/17 08:27 Dose: 40 mg Silver Sulfadiazine (Silvadene 1% 50 Gm) 1 applic TOP DAILY [facility] Last Admin: 10/31/17 08:27 Dose: 1 applic Vancomycin HCl (Vancocin (Oral/Rectal Use)) 125 mg PO Q6 [facility] PRN Reason: Protocol Last Admin: 10/31/17 05:00 Dose: 125 mg - Labs Labs: 10/31/17 05:00 10/31/17 05:00 PT 12.3 Seconds (9.8-13.1) 10/20/17 19:46 INR 1.1 (0.9-1.2) 10/20/17 19:46 APTT 33.2 Seconds (25.6-37.1) D 10/21/17 04:18 - Constitutional Appears: No Acute Distress - Head Exam Head Exam: NORMAL INSPECTION - Respiratory Exam Respiratory Exam: Clear to Ausculation Bilateral, NORMAL BREATHING PATTERN. absent: Chest Wall Tenderness, Rales, Wheezes, Respiratory Distress - Cardiovascular Exam Cardiovascular Exam: REGULAR RHYTHM, +S1, +S2. absent: Tachycardia, Murmur - GI/Abdominal Exam GI & Abdominal Exam: Soft, Normal Bowel Sounds. absent: Distended, Tenderness - Neurological Exam Neurological Exam: Alert, Awake, Oriented x3 - Psychiatric Exam Psychiatric exam: Anxious - Skin Skin Exam: Dry, Warm Assessment and Plan - Assessment and Plan (Free Text) Assessment: 77 y.o. female admitted for septic shock (resolved) and acute kidney injury which is improving. Patient with Major depression recurrence. No safe for patient to go home at this time, family considering placement for her. Plan: 1- Acute Kidney Injury on CKD, improving - BUN/Cr 40/2.9 - Nephro on board Dr. Garcia. Recs are appreciated: - stable electrolyte and volume status. - Pt. may need Dialysis [employer] in near future. - Urology on board Dr. Valentine recs appreciated - urine cx final negative. - ID on board: c/w abx (day 11) - c/w Diflucam 50mg daily 2 - Anemia, chronic disease - H/H: 7.4/23.5 - Repeat FOBT negative - Continue I.V. Venofer 100 mg 1 bag daily for a total of 10 days (day 4) 3- Major depression, recurrent - Psych consult appreciated: Dr Ardon - start lexapro 5 mg PO daily - pt needs psychiatric hospitalization as at current mental status she has limited insight into her psychiatric condition which is affecting her medical condition - pt was hesitant when offered admission to psychiatry for stabilization. 4 - +C diff colitis- Improving - c/w flagyl 5 - Deconditioning with Generalized weakness - PT evaluation 6 - Hypertension, controlled- well controlled - Hold home BP meds for now 2/2 shock 7 - Diabetes Mellitus type 2, controlled - Continue current management 8 - Wound assessment - Ulcer present on Sacrum: Purple localized DTI, non blanchable, stable. - R foot: localized erythema (DTI) in plantar aspect of great toe and right heel resolving. - L foot: Stage 2 pressure ulcer noted on medial aspect of heel, stable. - Wound care on board 9 - DVT prophylaxis - Heparin SC 10 - Code Status: DNR: Documentation reviewed: Status was discussed with family via Dr. Garcia and made aware by Dr. Mendes. <Jose Juan Boswell - Last Filed: 11/03/17 06:46> Objective - Vital Signs/Intake and Output Vital Signs (last 24 hours): Temp Pulse Resp BP Pulse Ox 98.5 F 83 18 149/83 98 11/03/17 05:06 11/03/17 05:06 11/03/17 05:06 11/03/17 05:06 11/03/17 05:06 Intake and Output: 11/02/17 11/03/17 18:59 06:59 Intake Total 1230 40 Output Total 800 Balance 430 40 - Medications Medications: Current Medications Acetaminophen (Tylenol 325mg Tab) 650 mg PO Q4 PRN PRN Reason: Pain, moderate (4-7) Last Admin: 11/02/17 06:59 Dose: 650 mg Aspirin (Ecotrin) 81 mg PO DAILY [facility] Last Admin: 10/21/17 08:49 Dose: 81 mg Atorvastatin Calcium (Lipitor) 40 mg PO QPM [facility] Last Admin: 10/21/17 17:21 Dose: Not Given Dextrose (Dextrose 50% Inj) 0 ml IV STAT PRN; Protocol PRN Reason: Hypoglycemia Protocol Dextrose (Glutose 15) 0 gm PO ONCE PRN; Protocol PRN Reason: Hypoglycemia Protocol Dextrose (Dextrose 50% Inj) 0 ml IV STAT PRN; Protocol PRN Reason: Hypoglycemia Protocol Dextrose (Glutose 15) 0 gm PO ONCE PRN; Protocol PRN Reason: Hypoglycemia Protocol Epoetin Axel (Procrit) 10,000 unit SC MWF [facility] Last Admin: 11/01/17 09:21 Dose: 10,000 unit Ergocalciferol (Drisdol 50,000 Intl Units Cap) 1 cap PO Q7D [facility] Last Admin: 10/28/17 14:06 Dose: 1 cap Escitalopram Oxalate (Lexapro) 5 mg PO DAILY [facility] Last Admin: 11/02/17 09:05 Dose: 5 mg Fluconazole (Diflucan) 100 mg PO DAILY [facility] PRN Reason: Protocol Glucagon (Glucagen Diagnostic Kit) 0 mg IM STAT PRN; Protocol PRN Reason: Hypoglycemia Protocol Glucagon (Glucagen Diagnostic Kit) 0 mg IM STAT PRN; Protocol PRN Reason: Hypoglycemia Protocol Iron Sucrose 100 mg/ Sodium (Chloride) 105 mls @ 105 mls/hr IVPB DAILY [facility] Stop: 11/06/17 09:59 Last Admin: 11/02/17 09:11 Dose: 105 mls/hr Insulin Human Regular (Humulin R) 0 units SC ACHS [facility] PRN Reason: Protocol Last Admin: 11/02/17 21:46 Dose: Not Given Lidocaine (Lidoderm) 1 ea TD DAILY [facility] Last Admin: 11/02/17 09:08 Dose: 1 ea Nystatin (Nystop Topical Powder) 1 applic TOP TID [facility] Last Admin: 11/02/17 17:43 Dose: 1 applic Pantoprazole Sodium (Protonix Inj) 40 mg IVP DAILY [facility] Last Admin: 11/02/17 09:13 Dose: 40 mg Silver Sulfadiazine (Silvadene 1% 50 Gm) 1 applic TOP DAILY [facility] Last Admin: 11/02/17 09:26 Dose: 1 applic Vancomycin HCl (Vancocin (Oral/Rectal Use)) 125 mg PO Q6 [facility] PRN Reason: Protocol Last Admin: 11/03/17 04:40 Dose: 125 mg - Labs Labs: 11/02/17 07:00 11/02/17 07:00 PT 12.3 Seconds (9.8-13.1) 10/20/17 19:46 INR 1.1 (0.9-1.2) 10/20/17 19:46 APTT 33.2 Seconds (25.6-37.1) D 10/21/17 04:18 Attending/Attestation - Attestation I have personally seen and examined this patient.: Yes I have fully participated in the care of the patient.: Yes I have reviewed all pertinent clinical information, including history, physical exam and plan: Yes
--- NOTE | 2017-10-31 10:51 | CP.CCUPN ---
CCU Subjective - Physician Review Subjective (Free Text): 10/30/17 12:18 The patient was Seen/interviewed and examined by me at the bedside during ICU round, Medical records reviewed and Management issues were discussed and formulated with the house staff. Events reviewed Clinically improving, hemodynamically improved OFF Vasopressors, Patient successfully Extubated, Patient awake, no distress. Afebrile, NSR on the monitor Awake, comfortable, NAD, on O2 supplement. Denies any chest pain, SOB or Palpitations 10/31/17 10:49 Patient continue to clinically improve, Awake and responsive, comfortable, NAD, respirations easy and unlabored. No new complains Stable for transfer to telemetry CCU Objective - Vital Signs / Intake & Output Vital Signs (Last 4 hours): Vital Signs Temp Pulse Resp BP Pulse Ox 10/31/17 08:00 98.2 F 77 16 120/77 100 Intake and Output (Last 8hrs): Intake & Output 10/30/17 10/31/17 10/31/17 22:59 06:59 14:59 Intake Total 132 112 Output Total 1020 1200 Balance -888 -1088 Intake: IV 32 12 Intake, Piggyback 100 100 Output: Urine 1000 1200 Urethral ([place]) 1200 Urine, Voided 1000 Stool 20 Other: # Bowel Movements 1 - Physical Exam Head: Positive for: Atraumatic, Normocephalic. Negative for: Tenderness, Contusion Pupils: Positive for: PERRL. Negative for: Sluggish, Non-Reactive, Pinpoint Extroacular Muscles: Positive for: EOMI. Negative for: Gaze Palsy, Entrapment Conjunctiva: Positive for: Normal. Negative for: Injected, Icteric Ears: Positive for: Normal Mouth: Positive for: Moist Mucous Membranes Pharnyx: Positive for: Normal Nose (Internal): Positive for: Normal Inspection, No Active Bleeding Neck: Positive for: Normal Range of Motion, Trachea Midline. Negative for: Meningeal Signs, MIDLINE TENDERNESS, Paraspinal Tenderness, JVD, Lymphadenopathy , Bruit, Other Respiratory/Chest: Positive for: Decreased Breath Sounds, Rales, Rhonchi. Negative for: Respiratory Distress, Accessory Muscle Use, Wheezes, Tachypneic Cardiovascular: Positive for: Regular Rate and Rhythm, Normal S1, S2, Peripheal Pulses Present. Negative for: Murmurs, Irregular Rhythm, Tachycardic, Bradycardic Abdomen: Positive for: Distention, Normal Bowel Sounds. Negative for: Tenderness Upper Extremity: Positive for: Normal Inspection Lower Extremity: Positive for: Normal Inspection Neurological: Positive for: GCS=15, CN II-XII Intact, Speech Normal, Motor Func Grossly Intact, Normal Sensory Function Psychiatric: Positive for: Alert, Oriented x 3 - Medications Active Medications: Active Medications Generic Name Dose Route Start Last Admin Trade Name Freq PRN Reason Stop Dose Admin Acetaminophen 650 mg 10/30/17 15:12 10/30/17 15:18 Tylenol 325mg Tab PO 650 mg Q4 PRN Administration Pain, moderate (4-7) Aspirin 81 mg 10/21/17 09:00 10/21/17 08:49 Ecotrin PO 81 mg DAILY [place] Administration Atorvastatin Calcium 40 mg 10/21/17 18:00 10/21/17 17:21 Lipitor PO Not Given QPM [place] Dextrose 0 ml 10/21/17 00:29 Dextrose 50% Inj IV STAT PRN Hypoglycemia Protocol Protocol Dextrose 0 gm 10/21/17 00:29 Glutose 15 PO ONCE PRN Hypoglycemia Protocol Protocol Dextrose 0 ml 10/21/17 11:45 Dextrose 50% Inj IV STAT PRN Hypoglycemia Protocol Protocol Dextrose 0 gm 10/21/17 11:45 Glutose 15 PO ONCE PRN Hypoglycemia Protocol Protocol Epoetin Axel 10,000 unit 10/23/17 09:00 10/30/17 08:52 Procrit SC 10,000 unit MWF [place] Administration Ergocalciferol 1 cap 10/28/17 12:00 10/28/17 14:06 Drisdol 50,000 Intl Units Cap PO 1 cap Q7D [place] Administration Glucagon 0 mg 10/21/17 00:29 Glucagen Diagnostic Kit IM STAT PRN Hypoglycemia Protocol Protocol Glucagon 0 mg 10/21/17 11:45 Glucagen Diagnostic Kit IM STAT PRN Hypoglycemia Protocol Protocol Heparin Sodium (Porcine) 5,000 units 10/21/17 09:00 10/31/17 08:26 Heparin SC 5,000 units Q8 [place] Administration Protocol Meropenem 500 mg/ Sodium 100 mls @ 100 mls/hr 10/21/17 10:19 10/31/17 00:12 Chloride IVPB 100 mls/hr Q8 [place] Administration Protocol Fluconazole 50 mls @ 50 mls/hr 10/26/17 13:30 10/30/17 08:50 Diflucan Iv 100 Mg/50 Ml Ns IVPB 50 mls/hr DAILY [place] Administration Protocol Iron Sucrose 100 mg/ Sodium 105 mls @ 105 mls/hr 10/28/17 12:00 10/30/17 12: 07 Chloride IVPB 11/06/17 09:59 105 mls/hr DAILY [place] Administration Insulin Human Regular 0 units 10/29/17 06:00 10/30/17 22:00 Humulin R SC Not Given ACHS [place] Protocol Nystatin 1 applic 10/23/17 17:00 10/31/17 08:27 Nystop Topical Powder TOP 1 applic TID [place] Administration Pantoprazole Sodium 40 mg 10/22/17 09:00 10/31/17 08:27 Protonix Inj IVP 40 mg DAILY [place] Administration Silver Sulfadiazine 1 applic 10/30/17 09:00 10/31/17 08:27 Silvadene 1% 50 Gm TOP 1 applic DAILY [place] Administration Vancomycin HCl 125 mg 10/30/17 16:00 10/31/17 05:00 Vancocin (Oral/Rectal Use) PO 125 mg Q6 [place] Administration Protocol - Patient Studies Lab Studies: Microbiology Studies 10/27/17 20:07 Blood Culture - Preliminary Blood-Venous NO GROWTH AFTER 3 DAYS 10/27/17 20:07 Blood Culture - Preliminary Blood-Venous NO GROWTH AFTER 3 DAYS Lab Studies 10/31/17 10/31/17 10/31/17 Range/Units 05:05 05:00 05:00 WBC 5.7 (4.8-10.8) K/uL RBC 2.75 L (3.80-5.20) Mil/uL Hgb 7.5 L (12.0-16.0) g/dL Hct 24.0 L (34.0-47.0) % MCV 87.3 (81.0-99.0) fl MCH 27.3 (27.0-31.0) pg MCHC 31.3 L (33.0-37.0) g/dL RDW 16.6 H (11.5-14.5) % Plt Count 246 (130-400) K/uL MPV 8.3 (7.2-11.7) fl Neut % (Auto) 41.3 L (50.0-75.0) % Lymph % (Auto) 39.7 (20.0-40.0) % [place] % (Auto) 14.4 H (0.0-10.0) % Eos % (Auto) 3.9 (0.0-4.0) % Baso % (Auto) 0.7 (0.0-2.0) % Neut # (Auto) 2.4 (1.8-7.0) K/uL Lymph # (Auto) 2.3 (1.0-4.3) K/uL [place] # (Auto) 0.8 (0.0-0.8) K/uL Eos # (Auto) 0.2 (0.0-0.7) K/uL Baso # (Auto) 0.0 (0.0-0.2) K/uL Sodium 140 (132-148) mmol/l Potassium 3.9 (3.6-5.0) MMOL/L Chloride 107 (98-107) mmol/L Carbon Dioxide 25 (22-30) mmol/L Anion Gap 12 (10-20) BUN 40 H (7-17) mg/dl Creatinine 2.9 H (0.7-1.2) mg/dl Est GFR ( Amer) 19 Est GFR (Non-Af Amer) 16 POC Glucose (mg/dL) 189 H (65-110) mg/dL Random Glucose 137 H (65-105) mg/dL Calcium 7.6 L (8.4-10.2) mg/dL Calcium (PTH Intact) (8.6-10.4) mg/dL PTH w/Ion &Tot Calcium (14-64) pg/mL 10/30/17 10/30/17 10/30/17 Range/Units 22:02 16:42 11:39 WBC (4.8-10.8) K/uL RBC (3.80-5.20) Mil/uL Hgb (12.0-16.0) g/dL Hct (34.0-47.0) % MCV (81.0-99.0) fl MCH (27.0-31.0) pg MCHC (33.0-37.0) g/dL RDW (11.5-14.5) % Plt Count (130-400) K/uL MPV (7.2-11.7) fl Neut % (Auto) (50.0-75.0) % Lymph % (Auto) (20.0-40.0) % [place] % (Auto) (0.0-10.0) % Eos % (Auto) (0.0-4.0) % Baso % (Auto) (0.0-2.0) % Neut # (Auto) (1.8-7.0) K/uL Lymph # (Auto) (1.0-4.3) K/uL [place] # (Auto) (0.0-0.8) K/uL Eos # (Auto) (0.0-0.7) K/uL Baso # (Auto) (0.0-0.2) K/uL Sodium (132-148) mmol/l Potassium (3.6-5.0) MMOL/L Chloride (98-107) mmol/L Carbon Dioxide (22-30) mmol/L Anion Gap (10-20) BUN (7-17) mg/dl Creatinine (0.7-1.2) mg/dl Est GFR ( Amer) Est GFR (Non-Af Amer) POC Glucose (mg/dL) 180 H 204 H 211 H (65-110) mg/dL Random Glucose (65-105) mg/dL Calcium (8.4-10.2) mg/dL Calcium (PTH Intact) (8.6-10.4) mg/dL PTH w/Ion &Tot Calcium (14-64) pg/mL 10/27/17 Range/Units 07:04 WBC (4.8-10.8) K/uL RBC (3.80-5.20) Mil/uL Hgb (12.0-16.0) g/dL Hct (34.0-47.0) % MCV (81.0-99.0) fl MCH (27.0-31.0) pg MCHC (33.0-37.0) g/dL RDW (11.5-14.5) % Plt Count (130-400) K/uL MPV (7.2-11.7) fl Neut % (Auto) (50.0-75.0) % Lymph % (Auto) (20.0-40.0) % [place] % (Auto) (0.0-10.0) % Eos % (Auto) (0.0-4.0) % Baso % (Auto) (0.0-2.0) % Neut # (Auto) (1.8-7.0) K/uL Lymph # (Auto) (1.0-4.3) K/uL [place] # (Auto) (0.0-0.8) K/uL Eos # (Auto) (0.0-0.7) K/uL Baso # (Auto) (0.0-0.2) K/uL Sodium (132-148) mmol/l Potassium (3.6-5.0) MMOL/L Chloride (98-107) mmol/L Carbon Dioxide (22-30) mmol/L Anion Gap (10-20) BUN (7-17) mg/dl Creatinine (0.7-1.2) mg/dl Est GFR ( Amer) Est GFR (Non-Af Amer) POC Glucose (mg/dL) (65-110) mg/dL Random Glucose (65-105) mg/dL Calcium (8.4-10.2) mg/dL Calcium (PTH Intact) 7.4 L (8.6-10.4) mg/dL PTH w/Ion &Tot Calcium 45 (14-64) pg/mL Laboratory Results - last 24 hr 10/27/17 10/30/17 10/30/17 07:04 11:39 16:42 WBC RBC Hgb Hct MCV MCH MCHC RDW Plt Count MPV Neut % (Auto) Lymph % (Auto) [place] % (Auto) Eos % (Auto) Baso % (Auto) Neut # (Auto) Lymph # (Auto) [place] # (Auto) Eos # (Auto) Baso # (Auto) Sodium Potassium Chloride Carbon Dioxide Anion Gap BUN Creatinine Est GFR ( Amer) Est GFR (Non-Af Amer) POC Glucose (mg/dL) 211 H 204 H Random Glucose Calcium Calcium (PTH Intact) 7.4 L PTH w/Ion &Tot Calcium 45 10/30/17 10/31/17 10/31/17 22:02 05:00 05:00 WBC 5.7 RBC 2.75 L Hgb 7.5 L Hct 24.0 L MCV 87.3 MCH 27.3 MCHC 31.3 L RDW 16.6 H Plt Count 246 MPV 8.3 Neut % (Auto) 41.3 L Lymph % (Auto) 39.7 [place] % (Auto) 14.4 H Eos % (Auto) 3.9 Baso % (Auto) 0.7 Neut # (Auto) 2.4 Lymph # (Auto) 2.3 [place] # (Auto) 0.8 Eos # (Auto) 0.2 Baso # (Auto) 0.0 Sodium 140 Potassium 3.9 Chloride 107 Carbon Dioxide 25 Anion Gap 12 BUN 40 H Creatinine 2.9 H Est GFR ( Amer) 19 Est GFR (Non-Af Amer) 16 POC Glucose (mg/dL) 180 H Random Glucose 137 H Calcium 7.6 L Calcium (PTH Intact) PTH w/Ion &Tot Calcium 10/31/17 05:05 WBC RBC Hgb Hct MCV MCH MCHC RDW Plt Count MPV Neut % (Auto) Lymph % (Auto) [place] % (Auto) Eos % (Auto) Baso % (Auto) Neut # (Auto) Lymph # (Auto) [place] # (Auto) Eos # (Auto) Baso # (Auto) Sodium Potassium Chloride Carbon Dioxide Anion Gap BUN Creatinine Est GFR ( Amer) Est GFR (Non-Af Amer) POC Glucose (mg/dL) 189 H Random Glucose Calcium Calcium (PTH Intact) PTH w/Ion &Tot Calcium Fingerstick Blood Sugar Results: 180 Critical Care Progress Note - Nutrition Nutrition: Nutrition Category Date Time Status Consistent Carbohydrate [DIET] Diets 10/30/17 Dinner Active Assessment/Plan (1) Acute respiratory failure with hypoxia Current Visit: Yes Status: Acute Priority: High Comment: Clinically improving, hemodynamically improved OFF Vasopressors, Patient successfully Extubated Wean off Fio2 as tolerated Diuresis Strict I&O, negative fluid balance Aggressive pulmonary toilet, chest PT, suctioning IV antibiotics, Continue IV Vancomycin, meropenem and Fluconazole (2) Septic shock Current Visit: Yes Status: Acute Priority: High Comment: Resolved IV antibiotics, Continue IV Vancomycin, meropenem and Fluconazole Off levophed Maintain MAP 65-75 (3) Acute on chronic renal failure Current Visit: Yes Status: Acute Priority: High Comment: Acute kidney injury likely multifactorial due to circulatory failure, Obstructive ueopathy and septic shock Stable Bun/Cr HD as pe renal (4) Metabolic acidosis Current Visit: Yes Status: Resolved Priority: High Comment: Improved with HD and bicarb drip (5) Acute on chronic renal failure Current Visit: No Status: Acute Comment: HD as per renal (6) UTI (urinary tract infection) with pyuria Current Visit: Yes Status: Acute Priority: High (7) Obstructive uropathy Current Visit: Yes Status: Acute Priority: Medium
[2017-10-31] MEDS: Fluconazole IV 100mg/50 ml NS 50 ML IVPB SCH (10:59)
[2017-10-31] MEDS: Insulin Regular 100 units/ml SC SCH ×3 (11:42→21:49)
[2017-11-01] MEDS: Meropenem 500 MG in Sodium Chloride 0.9% 100 ML IVPB SCH ×2 (01:08→09:20)
[2017-11-01] MEDS: Vancomycin 500 mg (Oral/Rectal USE) PO SCH ×4 (05:00→22:15)
--- NOTE | 2017-11-01 06:13 | CP.PCM.PN ---
Subjective - Date & Time of Evaluation Date of Evaluation: 10/31/17 Time of Evaluation: 12:45 - Subjective Subjective: Reports feeling well; tolerating diet; no shortness of breath; Objective - Vital Signs/Intake and Output Vital Signs (last 24 hours): Temp Pulse Resp BP Pulse Ox 98.8 F 78 19 129/77 98 11/01/17 05:21 11/01/17 05:21 11/01/17 05:21 11/01/17 05:21 11/01/17 05:21 Intake and Output: 10/31/17 11/01/17 18:59 06:59 Intake Total 950 Output Total 1100 Balance -150 - Medications Medications: Current Medications Acetaminophen (Tylenol 325mg Tab) 650 mg PO Q4 PRN PRN Reason: Pain, moderate (4-7) Last Admin: 10/30/17 15:18 Dose: 650 mg Aspirin (Ecotrin) 81 mg PO DAILY [facility] Last Admin: 10/21/17 08:49 Dose: 81 mg Atorvastatin Calcium (Lipitor) 40 mg PO QPM [facility] Last Admin: 10/21/17 17:21 Dose: Not Given Dextrose (Dextrose 50% Inj) 0 ml IV STAT PRN; Protocol PRN Reason: Hypoglycemia Protocol Dextrose (Glutose 15) 0 gm PO ONCE PRN; Protocol PRN Reason: Hypoglycemia Protocol Dextrose (Dextrose 50% Inj) 0 ml IV STAT PRN; Protocol PRN Reason: Hypoglycemia Protocol Dextrose (Glutose 15) 0 gm PO ONCE PRN; Protocol PRN Reason: Hypoglycemia Protocol Epoetin Axel (Procrit) 10,000 unit SC MWF [facility] Last Admin: 10/30/17 08:52 Dose: 10,000 unit Ergocalciferol (Drisdol 50,000 Intl Units Cap) 1 cap PO Q7D [facility] Last Admin: 10/28/17 14:06 Dose: 1 cap Escitalopram Oxalate (Lexapro) 5 mg PO DAILY [facility] Last Admin: 10/31/17 12:49 Dose: 5 mg Glucagon (Glucagen Diagnostic Kit) 0 mg IM STAT PRN; Protocol PRN Reason: Hypoglycemia Protocol Glucagon (Glucagen Diagnostic Kit) 0 mg IM STAT PRN; Protocol PRN Reason: Hypoglycemia Protocol Heparin Sodium (Porcine) (Heparin) 5,000 units SC Q8 [facility] PRN Reason: Protocol Last Admin: 11/01/17 01:07 Dose: 5,000 units Meropenem 500 mg/ Sodium (Chloride) 100 mls @ 100 mls/hr IVPB Q8 [place] PRN Reason: Protocol Last Admin: 11/01/17 01:08 Dose: 100 mls/hr Fluconazole (Diflucan Iv 100 Mg/50 Ml Ns) 50 mls @ 50 mls/hr IVPB DAILY [place] PRN Reason: Protocol Last Admin: 10/31/17 10:59 Dose: 50 mls/hr Iron Sucrose 100 mg/ Sodium (Chloride) 105 mls @ 105 mls/hr IVPB DAILY [facility] Stop: 11/06/17 09:59 Last Admin: 10/31/17 10:59 Dose: 105 mls/hr Insulin Human Regular (Humulin R) 0 units SC ACHS [place] PRN Reason: Protocol Last Admin: 10/31/17 21:49 Dose: Not Given Nystatin (Nystop Topical Powder) 1 applic TOP TID [facility] Last Admin: 10/31/17 17:40 Dose: 1 applic Pantoprazole Sodium (Protonix Inj) 40 mg IVP DAILY [facility] Last Admin: 10/31/17 08:27 Dose: 40 mg Silver Sulfadiazine (Silvadene 1% 50 Gm) 1 applic TOP DAILY [facility] Last Admin: 10/31/17 08:27 Dose: 1 applic Vancomycin HCl (Vancocin (Oral/Rectal Use)) 125 mg PO Q6 [place] PRN Reason: Protocol Last Admin: 11/01/17 05:00 Dose: 125 mg - Labs Labs: 10/31/17 05:00 10/31/17 05:00 PT 12.3 Seconds (9.8-13.1) 10/20/17 19:46 INR 1.1 (0.9-1.2) 10/20/17 19:46 APTT 33.2 Seconds (25.6-37.1) D 10/21/17 04:18 - Constitutional Appears: Non-toxic, No Acute Distress - Eye Exam Eye Exam: absent: Scleral icterus - ENT Exam ENT Exam: Mucous Membranes Moist - Respiratory Exam Respiratory Exam: Clear to Ausculation Bilateral. absent: Respiratory Distress - Cardiovascular Exam Cardiovascular Exam: +S1, +S2. absent: Gallop - GI/Abdominal Exam GI & Abdominal Exam: Soft. absent: Distended, Tenderness - Exam Exam: absent: Bladder Distension - Extremities Exam Extremities Exam: Pedal Edema - Neurological Exam Neurological Exam: Alert, Awake - Psychiatric Exam Psychiatric exam: Normal Mood. absent: Agitated - Skin Skin Exam: Warm. absent: Cyanosis Assessment and Plan (1) Acute renal failure Assessment & Plan: NINA on CKD IV; renal function now improved to baseline; stable volume and electrolyte status; -continue to avoid nephrotoxic agents; Status: Acute (2) Chronic kidney disease (CKD), stage IV (severe) Assessment & Plan: Advanced CKD in the setting of DM and chronic hydronephrosis; again discussed with patient regarding need to prepare for HD and placement of AVF, hesitant about going forward with this for now; Status: Chronic (3) Metabolic acidosis Status: Resolved (4) Hyperkalemia Status: Resolved (5) Septic shock Assessment & Plan: Hemodynamically stable; still concern for infected ureteral stents; continue to dose abx for CrCl < 20; Status: Acute (6) Anemia Assessment & Plan: Hgb well below goal (10-11 g) but stable; continue IV iron loading and EPO ( will need EPO as outpatient as well); Status: Acute (7) Hypertension Assessment & Plan: BP has been controlled off anti-htn agents, continue to hold for now; may need to restart as patient's PO intake increases; Status: Chronic
[2017-11-01] MEDS: Insulin Regular 100 units/ml SC SCH ×4 (06:45→22:15)
[2017-11-01] MEDS: Fluconazole IV 100mg/50 ml NS 50 ML IVPB SCH (09:18)
[2017-11-01] MEDS: EPOETIN ALFA 10,000 UNIT/ML ML SC SCH (09:21)
[2017-11-01] MEDS: Silver Sulfadiazine 1% CREAM (50 gm) TOP SCH (09:22)
--- NOTE | 2017-11-01 10:00 | CP.PCM.PN ---
<Katelyn Pierce - Last Filed: 11/01/17 16:45> Subjective - Date & Time of Evaluation Date of Evaluation: 11/01/17 Time of Evaluation: 10:00 - Subjective Subjective: Pt. seen at bedside on morning rounding. Patient transferred to telemetry yesterday, No overnight events. She reports a very bad pain in both knee since last night. Denies chest pain, dyspnea, chills, or abdominal pain. Afebrile. Discussion with KATARZYNA Long this morning about patient home environment, Protective services involved in the case also Patient's son Ede, we consider home is not a safe place for patient at this time because patient always stop taking medicines at home and because of that pt has multiple hospitalizations that putted her life in danger. Psych evaluation determine that patient's current mental status presenting with severe depression, pt needs psychiatric hospitalization as at current mental status she has limited insight into her psychiatric condition which is affecting her medical condition, we consider patient's actions as suicidal ideation (always stopping taking medications, several hospitalizations), patient refuses and is demanding going home. Objective - Vital Signs/Intake and Output Vital Signs (last 24 hours): Temp Pulse Resp BP Pulse Ox 98.2 F 80 18 123/75 97 11/01/17 07:46 11/01/17 07:46 11/01/17 07:46 11/01/17 07:46 11/01/17 07:46 - Medications Medications: Current Medications Acetaminophen (Tylenol 325mg Tab) 650 mg PO Q4 PRN PRN Reason: Pain, moderate (4-7) Last Admin: 11/01/17 06:49 Dose: 650 mg Aspirin (Ecotrin) 81 mg PO DAILY [facility] Last Admin: 10/21/17 08:49 Dose: 81 mg Atorvastatin Calcium (Lipitor) 40 mg PO QPM [facility] Last Admin: 10/21/17 17:21 Dose: Not Given Dextrose (Dextrose 50% Inj) 0 ml IV STAT PRN; Protocol PRN Reason: Hypoglycemia Protocol Dextrose (Glutose 15) 0 gm PO ONCE PRN; Protocol PRN Reason: Hypoglycemia Protocol Dextrose (Dextrose 50% Inj) 0 ml IV STAT PRN; Protocol PRN Reason: Hypoglycemia Protocol Dextrose (Glutose 15) 0 gm PO ONCE PRN; Protocol PRN Reason: Hypoglycemia Protocol Epoetin Axel (Procrit) 10,000 unit [facility] Last Admin: 11/01/17 09:21 Dose: 10,000 unit Ergocalciferol (Drisdol 50,000 Intl Units Cap) 1 cap PO Q7D [facility] Last Admin: 10/28/17 14:06 Dose: 1 cap Escitalopram Oxalate (Lexapro) 5 mg PO DAILY [facility] Last Admin: 11/01/17 09:20 Dose: 5 mg Glucagon (Glucagen Diagnostic Kit) 0 mg IM STAT PRN; Protocol PRN Reason: Hypoglycemia Protocol Glucagon (Glucagen Diagnostic Kit) 0 mg IM STAT PRN; Protocol PRN Reason: Hypoglycemia Protocol Heparin Sodium (Porcine) (Heparin) 5,000 units SC Q8 [facility] PRN Reason: Protocol Last Admin: 11/01/17 09:21 Dose: 5,000 units Meropenem 500 mg/ Sodium (Chloride) 100 mls @ 100 mls/hr IVPB Q8 [facility] PRN Reason: Protocol Last Admin: 11/01/17 09:20 Dose: 100 mls/hr Fluconazole (Diflucan Iv 100 Mg/50 Ml Ns) 50 mls @ 50 mls/hr IVPB DAILY [facility] PRN Reason: Protocol Last Admin: 11/01/17 09:18 Dose: 50 mls/hr Iron Sucrose 100 mg/ Sodium (Chloride) 105 mls @ 105 mls/hr IVPB DAILY [facility] Stop: 11/06/17 09:59 Last Admin: 10/31/17 10:59 Dose: 105 mls/hr Insulin Human Regular (Humulin R) 0 units SC ACHS [facility] PRN Reason: Protocol Last Admin: 10/31/17 21:49 Dose: Not Given Lidocaine (Lidoderm) 1 ea TD DAILY [facility] Nystatin (Nystop Topical Powder) 1 applic TOP TID [facility] Last Admin: 11/01/17 09:24 Dose: 1 applic Pantoprazole Sodium (Protonix Inj) 40 mg IVP DAILY [facility] Last Admin: 11/01/17 09:21 Dose: 40 mg Silver Sulfadiazine (Silvadene 1% 50 Gm) 1 applic TOP DAILY [facility] Last Admin: 11/01/17 09:22 Dose: 1 applic Vancomycin HCl (Vancocin (Oral/Rectal Use)) 125 mg PO Q6 [facility] PRN Reason: Protocol Last Admin: 11/01/17 09:22 Dose: 125 mg - Labs Labs: 10/31/17 05:00 10/31/17 05:00 PT 12.3 Seconds (9.8-13.1) 10/20/17 19:46 INR 1.1 (0.9-1.2) 10/20/17 19:46 APTT 33.2 Seconds (25.6-37.1) D 10/21/17 04:18 - Constitutional Appears: Other (Mild distress due to b/l knee pain) - Head Exam Head Exam: NORMAL INSPECTION - Respiratory Exam Respiratory Exam: Clear to Ausculation Bilateral, NORMAL BREATHING PATTERN. absent: Rales, Wheezes - Cardiovascular Exam Cardiovascular Exam: REGULAR RHYTHM, +S1, +S2. absent: Tachycardia - GI/Abdominal Exam GI & Abdominal Exam: Soft, Normal Bowel Sounds. absent: Distended, Tenderness - Extremities Exam Extremities Exam: Joint Swelling (both knee). absent: Calf Tenderness - Neurological Exam Neurological Exam: Awake, Oriented x3 Assessment and Plan - Assessment and Plan (Free Text) Assessment: 77 y.o. female admitted for septic shock (resolved) and acute kidney injury which is improving. Patient with Major depression recurrence. Psych recs for psychiatric hospitalization pt refuses. Plan: 1- Acute Kidney Injury on CKD, improving - BUN/Cr 40/2.9 - Nephro on board Dr. Garcia. Recs are appreciated: - stable electrolyte and volume status. 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 - Urology on board Dr. Valentine recmaya appreciated - urine cx final negative. - ID on board: d/c meropenem, 12 days completed - c/w Diflucam 50mg daily for fungurea (day 7) 2 - Anemia, chronic disease - H/H: 7.5/23.5 - Repeat FOBT negative - Continue I.V. Venofer 100 mg 1 bag daily for a total of 10 days (day 5) 3- Major depression, recurrent - Psych consult appreciated: Dr Ardon - start lexapro 5 mg PO daily - pt needs psychiatric hospitalization as at current mental status she has limited insight into her psychiatric condition which is affecting her medical condition - pt was hesitant when offered admission to psychiatry for stabilization. 4 - +C diff colitis- Improving - c/w vanco PO (day 10) 5 - Deconditioning with Generalized weakness - PT evaluation 6 - Hypertension, controlled- well controlled - Hold home BP meds for now 2/2 shock 7 - Diabetes Mellitus type 2, controlled - Continue current management 8 - Wound assessment - Ulcer present on Sacrum: Purple localized DTI, non blanchable, stable. - R foot: localized erythema (DTI) in plantar aspect of great toe and right heel resolving. - L foot: Stage 2 pressure ulcer noted on medial aspect of heel, stable. - Wound care on board 9 - DVT prophylaxis - Heparin SC 10 - Code Status: DNR: Documentation reviewed: Status was discussed with family via Dr. Garcia and made aware by Dr. Mendes. <Jose Juan Boswell - Last Filed: 11/03/17 06:49> Subjective - Subjective Subjective: Suicidal Gesture Objective - Vital Signs/Intake and Output Vital Signs (last 24 hours): Temp Pulse Resp BP Pulse Ox 98.5 F 83 18 149/83 98 11/03/17 05:06 11/03/17 05:06 11/03/17 05:06 11/03/17 05:06 11/03/17 05:06 Intake and Output: 11/02/17 11/03/17 18:59 06:59 Intake Total 1230 40 Output Total 800 Balance 430 40 - Medications Medications: Current Medications Acetaminophen (Tylenol 325mg Tab) 650 mg PO Q4 PRN PRN Reason: Pain, moderate (4-7) Last Admin: 11/02/17 06:59 Dose: 650 mg Aspirin (Ecotrin) 81 mg PO DAILY [facility] Last Admin: 10/21/17 08:49 Dose: 81 mg Atorvastatin Calcium (Lipitor) 40 mg PO QPM [facility] Last Admin: 10/21/17 17:21 Dose: Not Given Dextrose (Dextrose 50% Inj) 0 ml IV STAT PRN; Protocol PRN Reason: Hypoglycemia Protocol Dextrose (Glutose 15) 0 gm PO ONCE PRN; Protocol PRN Reason: Hypoglycemia Protocol Dextrose (Dextrose 50% Inj) 0 ml IV STAT PRN; Protocol PRN Reason: Hypoglycemia Protocol Dextrose (Glutose 15) 0 gm PO ONCE PRN; Protocol PRN Reason: Hypoglycemia Protocol Epoetin Axel (Procrit) 10,000 unit SC MWF [facility] Last Admin: 11/01/17 09:21 Dose: 10,000 unit Ergocalciferol (Drisdol 50,000 Intl Units Cap) 1 cap PO Q7D [facility] Last Admin: 10/28/17 14:06 Dose: 1 cap Escitalopram Oxalate (Lexapro) 5 mg PO DAILY [facility] Last Admin: 11/02/17 09:05 Dose: 5 mg Fluconazole (Diflucan) 100 mg PO DAILY [facility] PRN Reason: Protocol Glucagon (Glucagen Diagnostic Kit) 0 mg IM STAT PRN; Protocol PRN Reason: Hypoglycemia Protocol Glucagon (Glucagen Diagnostic Kit) 0 mg IM STAT PRN; Protocol PRN Reason: Hypoglycemia Protocol Iron Sucrose 100 mg/ Sodium (Chloride) 105 mls @ 105 mls/hr IVPB DAILY [facility] Stop: 11/06/17 09:59 Last Admin: 11/02/17 09:11 Dose: 105 mls/hr Insulin Human Regular (Humulin R) 0 units SC ACHS [facility] PRN Reason: Protocol Last Admin: 11/02/17 21:46 Dose: Not Given Lidocaine (Lidoderm) 1 ea TD DAILY [facility] Last Admin: 11/02/17 09:08 Dose: 1 ea Nystatin (Nystop Topical Powder) 1 applic TOP TID [facility] Last Admin: 11/02/17 17:43 Dose: 1 applic Pantoprazole Sodium (Protonix Inj) 40 mg IVP DAILY [facility] Last Admin: 11/02/17 09:13 Dose: 40 mg Silver Sulfadiazine (Silvadene 1% 50 Gm) 1 applic TOP DAILY [facility] Last Admin: 11/02/17 09:26 Dose: 1 applic Vancomycin HCl (Vancocin (Oral/Rectal Use)) 125 mg PO Q6 [facility] PRN Reason: Protocol Last Admin: 11/03/17 04:40 Dose: 125 mg - Labs Labs: 11/02/17 07:00 11/02/17 07:00 PT 12.3 Seconds (9.8-13.1) 10/20/17 19:46 INR 1.1 (0.9-1.2) 10/20/17 19:46 APTT 33.2 Seconds (25.6-37.1) D 10/21/17 04:18 Attending/Attestation - Attestation I have personally seen and examined this patient.: Yes I have fully participated in the care of the patient.: Yes I have reviewed all pertinent clinical information, including history, physical exam and plan: Yes
--- NOTE | 2017-11-01 11:56 | CP.PCM.PN ---
Subjective - Date & Time of Evaluation Date of Evaluation: 11/01/17 Time of Evaluation: 14:26 - Subjective Subjective: ID Note- Patient seen and examined today in telemetry floor. patient awake and alert and in good spirits. she states she is eating well and denies any fever or any abd. pain. she only c/o b/l knee pain and states her doctor has ordered pain patches he knee pain and they have helped her. Patient also states she is thinking about whether she wants to have AVF done on her arm for HD. Objective - Vital Signs/Intake and Output Vital Signs (last 24 hours): Temp Pulse Resp BP Pulse Ox 97.9 F 78 18 122/81 98 11/01/17 11:54 11/01/17 11:54 11/01/17 11:54 11/01/17 11:54 11/01/17 11:54 - Medications Medications: Current Medications Acetaminophen (Tylenol 325mg Tab) 650 mg PO Q4 PRN PRN Reason: Pain, moderate (4-7) Last Admin: 11/01/17 06:49 Dose: 650 mg Aspirin (Ecotrin) 81 mg PO DAILY [facility] Last Admin: 10/21/17 08:49 Dose: 81 mg Atorvastatin Calcium (Lipitor) 40 mg PO QPM [facility] Last Admin: 10/21/17 17:21 Dose: Not Given Dextrose (Dextrose 50% Inj) 0 ml IV STAT PRN; Protocol PRN Reason: Hypoglycemia Protocol Dextrose (Glutose 15) 0 gm PO ONCE PRN; Protocol PRN Reason: Hypoglycemia Protocol Dextrose (Dextrose 50% Inj) 0 ml IV STAT PRN; Protocol PRN Reason: Hypoglycemia Protocol Dextrose (Glutose 15) 0 gm PO ONCE PRN; Protocol PRN Reason: Hypoglycemia Protocol Epoetin Axel (Procrit) 10,000 unit SC MWF [facility] Last Admin: 11/01/17 09:21 Dose: 10,000 unit Ergocalciferol (Drisdol 50,000 Intl Units Cap) 1 cap PO Q7D [facility] Last Admin: 10/28/17 14:06 Dose: 1 cap Escitalopram Oxalate (Lexapro) 5 mg PO DAILY [facility] Last Admin: 11/01/17 09:20 Dose: 5 mg Glucagon (Glucagen Diagnostic Kit) 0 mg IM STAT PRN; Protocol PRN Reason: Hypoglycemia Protocol Glucagon (Glucagen Diagnostic Kit) 0 mg IM STAT PRN; Protocol PRN Reason: Hypoglycemia Protocol Heparin Sodium (Porcine) (Heparin) 5,000 units SC Q8 [facility] PRN Reason: Protocol Last Admin: 11/01/17 09:21 Dose: 5,000 units Meropenem 500 mg/ Sodium (Chloride) 100 mls @ 100 mls/hr IVPB Q8 [facility] PRN Reason: Protocol Last Admin: 11/01/17 09:20 Dose: 100 mls/hr Fluconazole (Diflucan Iv 100 Mg/50 Ml Ns) 50 mls @ 50 mls/hr IVPB DAILY [facility] PRN Reason: Protocol Last Admin: 11/01/17 09:18 Dose: 50 mls/hr Iron Sucrose 100 mg/ Sodium (Chloride) 105 mls @ 105 mls/hr IVPB DAILY [facility] Stop: 11/06/17 09:59 Last Admin: 10/31/17 10:59 Dose: 105 mls/hr Insulin Human Regular (Humulin R) 0 units SC ACHS [facility] PRN Reason: Protocol Last Admin: 10/31/17 21:49 Dose: Not Given Lidocaine (Lidoderm) 1 ea TD DAILY [facility] Nystatin (Nystop Topical Powder) 1 applic TOP TID [facility] Last Admin: 11/01/17 09:24 Dose: 1 applic Pantoprazole Sodium (Protonix Inj) 40 mg IVP DAILY [facility] Last Admin: 11/01/17 09:21 Dose: 40 mg Silver Sulfadiazine (Silvadene 1% 50 Gm) 1 applic TOP DAILY [facility] Last Admin: 11/01/17 09:22 Dose: 1 applic Vancomycin HCl (Vancocin (Oral/Rectal Use)) 125 mg PO Q6 [facility] PRN Reason: Protocol Last Admin: 11/01/17 09:22 Dose: 125 mg - Labs Labs: - Additional Findings Additional findings: - Constitutional Appears: awake , alert and in good spirits - Head Exam Head Exam: ATRAUMATIC - Respiratory Exam Additional comments: good breath sounds heard b/l - Cardiovascular Exam Cardiovascular Exam: RRR, +S1, +S2 - GI/Abdominal Exam Additional comments: soft, NT, ND, + BS - Extremities Exam Additional comments: 1+ LE edema B/L - Neurological Exam AAO x 3 today clay cath- less cloudy Laboratory Results - last 72 hr 10/27/17 10/27/17 10/29/17 07:04 18:00 14:52 WBC 6.7 RBC 2.75 L Hgb 7.6 L Hct 23.8 L MCV 86.4 MCH 27.5 MCHC 31.9 L RDW 16.6 H Plt Count 232 MPV Neut % (Auto) Lymph % (Auto) [place] % (Auto) Eos % (Auto) Baso % (Auto) Neut # (Auto) Lymph # (Auto) [place] # (Auto) Eos # (Auto) Baso # (Auto) Sodium Potassium Chloride Carbon Dioxide Anion Gap BUN Creatinine Est GFR ( Amer) Est GFR (Non-Af Amer) POC Glucose (mg/dL) Random Glucose Calcium Total Bilirubin AST ALT Alkaline Phosphatase Total Protein Albumin Globulin Albumin/Globulin Ratio Calcium (PTH Intact) 7.4 L PTH w/Ion &Tot Calcium 45 C. difficile Tox B Gene Detected H 10/29/17 10/29/17 10/29/17 14:52 16:08 21:44 WBC RBC Hgb Hct MCV MCH MCHC RDW Plt Count MPV Neut % (Auto) Lymph % (Auto) [place] % (Auto) Eos % (Auto) Baso % (Auto) Neut # (Auto) Lymph # (Auto) [place] # (Auto) Eos # (Auto) Baso # (Auto) Sodium 144 Potassium 3.8 Chloride 107 Carbon Dioxide 24 Anion Gap 17 BUN 50 H Creatinine 3.3 H Est GFR ( Amer) 16 Est GFR (Non-Af Amer) 14 POC Glucose (mg/dL) 192 H 153 H Random Glucose 188 H Calcium 7.7 L Total Bilirubin 0.3 AST 23 ALT 29 Alkaline Phosphatase 78 Total Protein 4.7 L Albumin 2.1 L Globulin 2.6 Albumin/Globulin Ratio 0.8 L Calcium (PTH Intact) PTH w/Ion &Tot Calcium C. difficile Tox B Gene 10/30/17 10/30/17 10/30/17 04:50 04:50 05:17 WBC 5.5 RBC 2.73 L Hgb 7.5 L Hct 23.7 L MCV 87.0 MCH 27.4 MCHC 31.4 L RDW 16.6 H Plt Count 232 MPV Neut % (Auto) Lymph % (Auto) [place] % (Auto) Eos % (Auto) Baso % (Auto) Neut # (Auto) Lymph # (Auto) [place] # (Auto) Eos # (Auto) Baso # (Auto) Sodium 142 Potassium 3.8 Chloride 107 Carbon Dioxide 24 Anion Gap 15 BUN 48 H Creatinine 2.9 H Est GFR ( Amer) 19 Est GFR (Non-Af Amer) 16 POC Glucose (mg/dL) 156 H Random Glucose 162 H Calcium 7.6 L Total Bilirubin 0.3 AST 37 H D ALT 29 Alkaline Phosphatase 74 Total Protein 4.6 L Albumin 2.0 L Globulin 2.6 Albumin/Globulin Ratio 0.8 L Calcium (PTH Intact) PTH w/Ion &Tot Calcium C. difficile Tox B Gene 10/30/17 10/30/17 10/30/17 11:39 16:42 22:02 WBC RBC Hgb Hct MCV MCH MCHC RDW Plt Count MPV Neut % (Auto) Lymph % (Auto) [place] % (Auto) Eos % (Auto) Baso % (Auto) Neut # (Auto) Lymph # (Auto) [place] # (Auto) Eos # (Auto) Baso # (Auto) Sodium Potassium Chloride Carbon Dioxide Anion Gap BUN Creatinine Est GFR ( Amer) Est GFR (Non-Af Amer) POC Glucose (mg/dL) 211 H 204 H 180 H Random Glucose Calcium Total Bilirubin AST ALT Alkaline Phosphatase Total Protein Albumin Globulin Albumin/Globulin Ratio Calcium (PTH Intact) PTH w/Ion &Tot Calcium C. difficile Tox B Gene 10/31/17 10/31/17 10/31/17 05:00 05:00 05:05 WBC 5.7 RBC 2.75 L Hgb 7.5 L Hct 24.0 L MCV 87.3 MCH 27.3 MCHC 31.3 L RDW 16.6 H Plt Count 246 MPV 8.3 Neut % (Auto) 41.3 L Lymph % (Auto) 39.7 Baca % (Auto) 14.4 H Eos % (Auto) 3.9 Baso % (Auto) 0.7 Neut # (Auto) 2.4 Lymph # (Auto) 2.3 [place] # (Auto) 0.8 Eos # (Auto) 0.2 Baso # (Auto) 0.0 Sodium 140 Potassium 3.9 Chloride 107 Carbon Dioxide 25 Anion Gap 12 BUN 40 H Creatinine 2.9 H Est GFR ( Amer) 19 Est GFR (Non-Af Amer) 16 POC Glucose (mg/dL) 189 H Random Glucose 137 H Calcium 7.6 L Total Bilirubin AST ALT Alkaline Phosphatase Total Protein Albumin Globulin Albumin/Globulin Ratio Calcium (PTH Intact) PTH w/Ion &Tot Calcium C. difficile Tox B Gene 10/31/17 10/31/17 10/31/17 11:30 16:32 21:40 WBC RBC Hgb Hct MCV MCH MCHC RDW Plt Count MPV Neut % (Auto) Lymph % (Auto) [place] % (Auto) Eos % (Auto) Baso % (Auto) Neut # (Auto) Lymph # (Auto) [place] # (Auto) Eos # (Auto) Baso # (Auto) Sodium Potassium Chloride Carbon Dioxide Anion Gap BUN Creatinine Est GFR ( Amer) Est GFR (Non-Af Amer) POC Glucose (mg/dL) 231 H 199 H 154 H Random Glucose Calcium Total Bilirubin AST ALT Alkaline Phosphatase Total Protein Albumin Globulin Albumin/Globulin Ratio Calcium (PTH Intact) PTH w/Ion &Tot Calcium C. difficile Tox B Gene 11/01/17 11/01/17 05:55 10:56 WBC RBC Hgb Hct MCV MCH MCHC RDW Plt Count MPV Neut % (Auto) Lymph % (Auto) [place] % (Auto) Eos % (Auto) Baso % (Auto) Neut # (Auto) Lymph # (Auto) [place] # (Auto) Eos # (Auto) Baso # (Auto) Sodium Potassium Chloride Carbon Dioxide Anion Gap BUN Creatinine Est GFR ( Amer) Est GFR (Non-Af Amer) POC Glucose (mg/dL) 172 H 226 H Random Glucose Calcium Total Bilirubin AST ALT Alkaline Phosphatase Total Protein Albumin Globulin Albumin/Globulin Ratio Calcium (PTH Intact) PTH w/Ion &Tot Calcium C. difficile Tox B Gene Microbiology 10/27/17 20:07 Blood-Venous Blood Culture - Preliminary NO GROWTH AFTER 4 DAYS 10/27/17 20:07 Blood-Venous Blood Culture - Preliminary NO GROWTH AFTER 4 DAYS 10/27/17 09:10 Urine,Catheterized Urine Culture - Final No Growth (<1,000 CFU/ML) 10/21/17 14:48 Blood-Venous Blood Culture - Final NO GROWTH AFTER 5 DAYS 10/21/17 14:48 Blood-Venous Gram Stain - Final TEST NOT PERFORMED 10/21/17 15:40 Blood-Venous Blood Culture - Final NO GROWTH AFTER 5 DAYS 10/21/17 15:40 Blood-Venous Gram Stain - Final TEST NOT PERFORMED 10/20/17 20:00 Blood Blood Culture - Final NO GROWTH AFTER 5 DAYS 10/20/17 20:00 Blood Gram Stain - Final TEST NOT PERFORMED 10/20/17 19:46 Blood Blood Culture - Final NO GROWTH AFTER 5 DAYS 10/20/17 19:46 Blood Gram Stain - Final TEST NOT PERFORMED 10/23/17 11:40 Urine,Clay Urine Culture - Final Yeast Species 10/20/17 10:30 Naris MRSA Culture (Admit) - Final MRSA NOT DETECTED Accession No. : [id number] Patient Name / ID : SUMMER DHILLON / [id number] Exam Date : 10/30/2017 14:42:37 ( Approved ) Study Comment : Sex / Age : F / 77Y Creator : Quique Xiong MD Dictator : Quique Xiong MD Fishing Vessel Deckhand : Satellite Dish Technician : Quique Xiong MD Approver2 : Report Date : 10/30/2017 15:21:31 My Comment : PROCEDURE: CHEST RADIOGRAPH, 1 VIEW HISTORY: recently extubated COMPARISON: 10/27/2017 FINDINGS: LUNGS: Clear. PLEURA: No pneumothorax or pleural fluid seen. CARDIOVASCULAR: No radiographic findings to suggest acute or significant cardiovascular disease. OSSEOUS STRUCTURES: No significant abnormalities. VISUALIZED UPPER ABDOMEN: Normal. OTHER FINDINGS: None. IMPRESSION: No active disease. No acute/significant interval changes. Assessment and Plan (1) Acute on chronic renal failure Status: Acute (2) Metabolic acidosis Status: Resolved (3) Septic shock Status: Acute (4) UTI (urinary tract infection) Status: Acute (5) Hyperkalemia Status: Resolved - Assessment and Plan (Free Text) Assessment: /P- 77 year old female with multiple medical conditions and noncomplaint including CKD stage 4, DM II, b/l ureteral stents ( repaced 09/2017) admitted with change in MS, lethargy was found to be hyperkalemic, metabolic acidosis, acute on chronic renal insufficiency and leukocytosis. clinically much improved. s/p extubation last week. blood cx- neg x 4 urine cx- yeast leukocytosis has resolved. stool c.diff- pos x 2 metabolic acidosis has resolved c.diff colitis improved, less diarrhea leukocytosis - resolved acute on chronic renal failure s/p emergent HD - now much improved, urinating well may need eventual permanent HD as per renal doctor fungurea- being treated plan- has completed 12 days of IV meropenem. can d/c it today. continue with po vanco for c.diff diarrhea treatment , day #10 continue with IV fluconazole for fungurea day #7 advise to replace the clay. also patient will need to have her ureteral stents removed as it can be source for recurrent UTI's if patient needs the ureteral stents then it must be replaced frequently to avoid recurrent UTi's d/c IJ TLC advised.
[2017-11-01] MEDS: Lidocaine 5% Patch TD SCH (12:55)
--- NOTE | 2017-11-01 19:02 | CP.PCM.PN ---
Subjective - Date & Time of Evaluation Date of Evaluation: 11/01/17 Time of Evaluation: 19:00 - Subjective Subjective: Reports feeling well; no shortness of breath, nausea/vomiting; hasn't gotten out of bed; Objective - Vital Signs/Intake and Output Vital Signs (last 24 hours): Temp Pulse Resp BP Pulse Ox 98.9 F 77 16 114/75 99 11/01/17 18:54 11/01/17 18:54 11/01/17 18:54 11/01/17 18:54 11/01/17 18:54 Intake and Output: 11/01/17 11/02/17 18:59 06:59 Intake Total 1150 Output Total 950 Balance 200 - Medications Medications: Current Medications Acetaminophen (Tylenol 325mg Tab) 650 mg PO Q4 PRN PRN Reason: Pain, moderate (4-7) Last Admin: 11/01/17 06:49 Dose: 650 mg Aspirin (Ecotrin) 81 mg PO DAILY [facility] Last Admin: 10/21/17 08:49 Dose: 81 mg Atorvastatin Calcium (Lipitor) 40 mg PO QPM [facility] Last Admin: 10/21/17 17:21 Dose: Not Given Dextrose (Dextrose 50% Inj) 0 ml IV STAT PRN; Protocol PRN Reason: Hypoglycemia Protocol Dextrose (Glutose 15) 0 gm PO ONCE PRN; Protocol PRN Reason: Hypoglycemia Protocol Dextrose (Dextrose 50% Inj) 0 ml IV STAT PRN; Protocol PRN Reason: Hypoglycemia Protocol Dextrose (Glutose 15) 0 gm PO ONCE PRN; Protocol PRN Reason: Hypoglycemia Protocol Epoetin Axel (Procrit) 10,000 unit SC MWF [facility] Last Admin: 11/01/17 09:21 Dose: 10,000 unit Ergocalciferol (Drisdol 50,000 Intl Units Cap) 1 cap PO Q7D [facility] Last Admin: 10/28/17 14:06 Dose: 1 cap Escitalopram Oxalate (Lexapro) 5 mg PO DAILY [facility] Last Admin: 11/01/17 09:20 Dose: 5 mg Glucagon (Glucagen Diagnostic Kit) 0 mg IM STAT PRN; Protocol PRN Reason: Hypoglycemia Protocol Glucagon (Glucagen Diagnostic Kit) 0 mg IM STAT PRN; Protocol PRN Reason: Hypoglycemia Protocol Fluconazole (Diflucan Iv 100 Mg/50 Ml Ns) 50 mls @ 50 mls/hr IVPB DAILY [facility] PRN Reason: Protocol Last Admin: 11/01/17 09:18 Dose: 50 mls/hr Iron Sucrose 100 mg/ Sodium (Chloride) 105 mls @ 105 mls/hr IVPB DAILY [facility] Stop: 11/06/17 09:59 Last Admin: 11/01/17 12:57 Dose: 105 mls/hr Insulin Human Regular (Humulin R) 0 units SC ACHS [facility] PRN Reason: Protocol Last Admin: 11/01/17 17:38 Dose: 2 u Lidocaine (Lidoderm) 1 ea TD DAILY [facility] Last Admin: 11/01/17 12:55 Dose: 1 ea Nystatin (Nystop Topical Powder) 1 applic TOP TID [facility] Last Admin: 11/01/17 17:42 Dose: 1 applic Pantoprazole Sodium (Protonix Inj) 40 mg IVP DAILY [facility] Last Admin: 11/01/17 09:21 Dose: 40 mg Silver Sulfadiazine (Silvadene 1% 50 Gm) 1 applic TOP DAILY [facility] Last Admin: 11/01/17 09:22 Dose: 1 applic Vancomycin HCl (Vancocin (Oral/Rectal Use)) 125 mg PO Q6 [facility] PRN Reason: Protocol Last Admin: 11/01/17 17:41 Dose: 125 mg - Labs Labs: 10/31/17 05:00 10/31/17 05:00 PT 12.3 Seconds (9.8-13.1) 10/20/17 19:46 INR 1.1 (0.9-1.2) 10/20/17 19:46 APTT 33.2 Seconds (25.6-37.1) D 10/21/17 04:18 - Constitutional Appears: Non-toxic, No Acute Distress - Eye Exam Eye Exam: absent: Scleral icterus - ENT Exam ENT Exam: Mucous Membranes Moist - Respiratory Exam Respiratory Exam: Clear to Ausculation Bilateral. absent: Respiratory Distress - Cardiovascular Exam Cardiovascular Exam: RRR, +S1, +S2 - GI/Abdominal Exam GI & Abdominal Exam: Soft. absent: Distended, Tenderness - Exam Exam: absent: Bladder Distension - Extremities Exam Extremities Exam: Pedal Edema Additional comments: R>L; - Neurological Exam Neurological Exam: Alert, Awake - Psychiatric Exam Psychiatric exam: absent: Agitated, Normal Mood - Skin Skin Exam: Warm. absent: Cyanosis Assessment and Plan (1) Acute renal failure Assessment & Plan: NINA on CKD IV; renal function at baseline; stable volume status, lytes ok on labs yesterday; -will check labs tomorrow; Status: Acute (2) Chronic kidney disease (CKD), stage IV (severe) Assessment & Plan: Likely secondary to DM and chronic hydronephrosis; proteinuric kidney disease but too advanced to start TILA blockade (and followup is questionable); undecided regarding AVF creation procedure; -obtaining limited serologic workup to look for other causes, can be followed up as outpatient; Status: Chronic (3) Metabolic acidosis Status: Resolved (4) Hyperkalemia Status: Resolved (5) Septic shock Assessment & Plan: Resolved; meropenem course completed; need to monitor carefully as still question of infected ureteral stents (and urine culture taken after patient on abx for several days); Status: Acute (6) Anemia Assessment & Plan: On IV iron loading and EPO, continue; will need to continue aranesp as outpatient; Status: Acute (7) Hypertension Assessment & Plan: BP controlled off any anti-htn agents, continue to monitor as PO intake increases; continue low Na diet; Status: Chronic
[2017-11-02] MEDS: Vancomycin 500 mg (Oral/Rectal USE) PO SCH ×4 (05:30→21:39)
--- NOTE | 2017-11-02 07:38 | CP.PCM.PN ---
<Katelyn Pierce - Last Filed: 11/02/17 15:50> Subjective - Date & Time of Evaluation Date of Evaluation: 11/02/17 Time of Evaluation: 07:38 - Subjective Subjective: Pt. seen at bedside this morning. No overnight events. still c/o pain in both knee. Denies chest pain, dyspnea, chills, or abdominal pain. Afebrile. Crying when mentioned the possibility to think about NSF. Objective - Vital Signs/Intake and Output Vital Signs (last 24 hours): Temp Pulse Resp BP Pulse Ox 98.1 F 81 18 138/79 99 11/02/17 05:21 11/02/17 05:21 11/02/17 05:21 11/02/17 05:21 11/02/17 05:21 - Medications Medications: Current Medications Acetaminophen (Tylenol 325mg Tab) 650 mg PO Q4 PRN PRN Reason: Pain, moderate (4-7) Last Admin: 11/02/17 06:59 Dose: 650 mg Aspirin (Ecotrin) 81 mg PO DAILY [facility] Last Admin: 10/21/17 08:49 Dose: 81 mg Atorvastatin Calcium (Lipitor) 40 mg PO QPM [facility] Last Admin: 10/21/17 17:21 Dose: Not Given Dextrose (Dextrose 50% Inj) 0 ml IV STAT PRN; Protocol PRN Reason: Hypoglycemia Protocol Dextrose (Glutose 15) 0 gm PO ONCE PRN; Protocol PRN Reason: Hypoglycemia Protocol Dextrose (Dextrose 50% Inj) 0 ml IV STAT PRN; Protocol PRN Reason: Hypoglycemia Protocol Dextrose (Glutose 15) 0 gm PO ONCE PRN; Protocol PRN Reason: Hypoglycemia Protocol Epoetin Axel (Procrit) 10,000 unit SC MWF [facility] Last Admin: 11/01/17 09:21 Dose: 10,000 unit Ergocalciferol (Drisdol 50,000 Intl Units Cap) 1 cap PO Q7D [facility] Last Admin: 10/28/17 14:06 Dose: 1 cap Escitalopram Oxalate (Lexapro) 5 mg PO DAILY [facility] Last Admin: 11/01/17 09:20 Dose: 5 mg Glucagon (Glucagen Diagnostic Kit) 0 mg IM STAT PRN; Protocol PRN Reason: Hypoglycemia Protocol Glucagon (Glucagen Diagnostic Kit) 0 mg IM STAT PRN; Protocol PRN Reason: Hypoglycemia Protocol Fluconazole (Diflucan Iv 100 Mg/50 Ml Ns) 50 mls @ 50 mls/hr IVPB DAILY [facility] PRN Reason: Protocol Last Admin: 11/01/17 09:18 Dose: 50 mls/hr Iron Sucrose 100 mg/ Sodium (Chloride) 105 mls @ 105 mls/hr IVPB DAILY [facility] Stop: 11/06/17 09:59 Last Admin: 11/01/17 12:57 Dose: 105 mls/hr Insulin Human Regular (Humulin R) 0 units SC ACHS [facility] PRN Reason: Protocol Last Admin: 11/01/17 22:15 Dose: Not Given Lidocaine (Lidoderm) 1 ea TD DAILY [facility] Last Admin: 11/01/17 12:55 Dose: 1 ea Nystatin (Nystop Topical Powder) 1 applic TOP TID [facility] Last Admin: 11/01/17 17:42 Dose: 1 applic Pantoprazole Sodium (Protonix Inj) 40 mg IVP DAILY [facility] Last Admin: 11/01/17 09:21 Dose: 40 mg Silver Sulfadiazine (Silvadene 1% 50 Gm) 1 applic TOP DAILY [facility] Last Admin: 11/01/17 09:22 Dose: 1 applic Vancomycin HCl (Vancocin (Oral/Rectal Use)) 125 mg PO Q6 [facility] PRN Reason: Protocol Last Admin: 11/02/17 05:30 Dose: 125 mg - Labs Labs: 10/31/17 05:00 10/31/17 05:00 PT 12.3 Seconds (9.8-13.1) 10/20/17 19:46 INR 1.1 (0.9-1.2) 10/20/17 19:46 APTT 33.2 Seconds (25.6-37.1) D 10/21/17 04:18 - Constitutional Appears: No Acute Distress - Head Exam Head Exam: NORMAL INSPECTION - Eye Exam Eye Exam: Normal appearance - ENT Exam ENT Exam: Mucous Membranes Moist - Respiratory Exam Respiratory Exam: Clear to Ausculation Bilateral, NORMAL BREATHING PATTERN - Cardiovascular Exam Cardiovascular Exam: REGULAR RHYTHM. absent: Tachycardia - GI/Abdominal Exam GI & Abdominal Exam: Soft, Normal Bowel Sounds. absent: Distended, Tenderness - Extremities Exam Extremities Exam: Joint Swelling (mild in both knee). absent: Calf Tenderness - Neurological Exam Neurological Exam: Alert, Awake, Oriented x3 - Additional Findings Additional findings: Ulcer present on Sacrum: Purple localized DTI, non blanchable. R foot: localized erythema (DTI) in plantar aspect of great toe and right heel , stable L foot: Stage 2 pressure ulcer noted on medial aspect of heel. Assessment and Plan - Assessment and Plan (Free Text) Assessment: 77 y.o. female admitted for septic shock (resolved) and acute kidney injury which is improving. Patient with Major depression recurrence. Psych recs for psychiatric hospitalization pt refuses. Plan: 1- Acute Kidney Injury on CKD, improving - BUN/Cr 32/2.6 today - Nephro on board Dr. Garcia. Recs are appreciated: - stable electrolyte and volume status. - Pt. may need Dialysis custodial in near future, pt reluctant to AVF procedure - ID on board - c/w Diflucam 50mg daily for fungurea (day 8) 2 - Anemia, chronic disease - H/H: 7.5/23.5 - Repeat FOBT negative - Continue I.V. Venofer 100 mg 1 bag daily for a total of 10 days (day 6) 3- Major depression, recurrent - Psych consult appreciated: Dr Ardon - start lexapro 5 mg PO daily - pt needs psychiatric hospitalization, current mental status she has limited insight into her psychiatric condition which is affecting her medical condition - pt was hesitant when offered admission to psychiatry for stabilization. - will be referred for screening for possible involuntary admission for further stabilization. 4 - +C diff colitis- Improving - c/w vanco PO (day 11) 5 - Deconditioning with Generalized weakness - PT: KATHY 6 - Hypertension, controlled- well controlled - Hold home BP meds for now 2/2 shock 7 - Diabetes Mellitus type 2, controlled - Continue current management 8 - Wound assessment - Ulcer present on Sacrum: Purple localized DTI, non blanchable, stable. - R foot: localized erythema (DTI) in plantar aspect of great toe and right heel resolving. - L foot: Stage 2 pressure ulcer noted on medial aspect of heel, stable. - Wound care on board 9 - DVT prophylaxis - Heparin SC 10 - Code DNR: Documentation reviewed: Status was discussed with family via Dr. Garcia and made aware by Dr. Mendes. <Min Woody - Last Filed: 11/03/17 06:55> Objective - Vital Signs/Intake and Output Vital Signs (last 24 hours): Temp Pulse Resp BP Pulse Ox 98.5 F 83 18 149/83 98 11/03/17 05:06 11/03/17 05:06 11/03/17 05:06 11/03/17 05:06 11/03/17 05:06 Intake and Output: 11/02/17 11/03/17 18:59 06:59 Intake Total 1230 40 Output Total 800 Balance 430 40 - Medications Medications: Current Medications Acetaminophen (Tylenol 325mg Tab) 650 mg PO Q4 PRN PRN Reason: Pain, moderate (4-7) Last Admin: 11/02/17 06:59 Dose: 650 mg Aspirin (Ecotrin) 81 mg PO DAILY [facility] Last Admin: 10/21/17 08:49 Dose: 81 mg Atorvastatin Calcium (Lipitor) 40 mg PO QPM [facility] Last Admin: 10/21/17 17:21 Dose: Not Given Dextrose (Dextrose 50% Inj) 0 ml IV STAT PRN; Protocol PRN Reason: Hypoglycemia Protocol Dextrose (Glutose 15) 0 gm PO ONCE PRN; Protocol PRN Reason: Hypoglycemia Protocol Dextrose (Dextrose 50% Inj) 0 ml IV STAT PRN; Protocol PRN Reason: Hypoglycemia Protocol Dextrose (Glutose 15) 0 gm PO ONCE PRN; Protocol PRN Reason: Hypoglycemia Protocol Epoetin Axel (Procrit) 10,000 unit SC MWF [facility] Last Admin: 11/01/17 09:21 Dose: 10,000 unit Ergocalciferol (Drisdol 50,000 Intl Units Cap) 1 cap PO Q7D [facility] Last Admin: 10/28/17 14:06 Dose: 1 cap Escitalopram Oxalate (Lexapro) 5 mg PO DAILY [facility] Last Admin: 11/02/17 09:05 Dose: 5 mg Fluconazole (Diflucan) 100 mg PO DAILY [facility] PRN Reason: Protocol Glucagon (Glucagen Diagnostic Kit) 0 mg IM STAT PRN; Protocol PRN Reason: Hypoglycemia Protocol Glucagon (Glucagen Diagnostic Kit) 0 mg IM STAT PRN; Protocol PRN Reason: Hypoglycemia Protocol Iron Sucrose 100 mg/ Sodium (Chloride) 105 mls @ 105 mls/hr IVPB DAILY [facility] Stop: 11/06/17 09:59 Last Admin: 11/02/17 09:11 Dose: 105 mls/hr Insulin Human Regular (Humulin R) 0 units SC ACHS [facility] PRN Reason: Protocol Last Admin: 11/02/17 21:46 Dose: Not Given Lidocaine (Lidoderm) 1 ea TD DAILY [facility] Last Admin: 11/02/17 09:08 Dose: 1 ea Nystatin (Nystop Topical Powder) 1 applic TOP TID [facility] Last Admin: 11/02/17 17:43 Dose: 1 applic Pantoprazole Sodium (Protonix Inj) 40 mg IVP DAILY [facility] Last Admin: 11/02/17 09:13 Dose: 40 mg Silver Sulfadiazine (Silvadene 1% 50 Gm) 1 applic TOP DAILY [facility] Last Admin: 11/02/17 09:26 Dose: 1 applic Vancomycin HCl (Vancocin (Oral/Rectal Use)) 125 mg PO Q6 [facility] PRN Reason: Protocol Last Admin: 11/03/17 04:40 Dose: 125 mg - Labs Labs: 11/02/17 07:00 11/02/17 07:00 PT 12.3 Seconds (9.8-13.1) 10/20/17 19:46 INR 1.1 (0.9-1.2) 10/20/17 19:46 APTT 33.2 Seconds (25.6-37.1) D 10/21/17 04:18 Attending/Attestation - Attestation I have personally seen and examined this patient.: Yes I have fully participated in the care of the patient.: Yes I have reviewed all pertinent clinical information, including history, physical exam and plan: Yes
[2017-11-02 07:44] LABS: BASO # 0.1 K/uL (0.0-0.2); BASO % 1.1 % (0.0-2.0); EOS # 0.2 K/uL (0.0-0.7); EOS % 3.2 % (0.0-4.0); HEMOGLOBIN 7.7 g/dL (12.0-16.0); LYMPH # 2.4 K/uL (1.0-4.3); LYMPH % 40.3 % (20.0-40.0); MEAN CORPUSCULAR HEMOGLOBIN 27.5 pg (27.0-31.0); MEAN CORPUSCULAR HGB CONC 31.2 g/dL (33.0-37.0); MEAN PLATELET VOLUME 8.2 fl (7.2-11.7); MONO # 0.7 K/uL (0.0-0.8); MONO % 11.7 % (0.0-10.0); NEUT # 2.6 K/uL (1.8-7.0); NEUT % 43.7 % (50.0-75.0); RBC 2.81 Mil/uL (3.80-5.20); RED CELL DISTRIBUTION WIDTH 18.5 % (11.5-14.5); WHITE BLOOD COUNT 6.1 K/uL (4.8-10.8)
[2017-11-02 08:05] LABS: ALB/GLOB RATIO 0.8 (1.0-2.1); ALBUMIN 2.3 g/dL (3.5-5.0)
[2017-11-02] MEDS: Fluconazole IV 100mg/50 ml NS 50 ML IVPB SCH (09:05)
[2017-11-02] MEDS: Insulin Regular 100 units/ml SC SCH ×4 (09:07→21:46)
[2017-11-02] MEDS: Lidocaine 5% Patch TD SCH (09:08)
[2017-11-02] MEDS: Silver Sulfadiazine 1% CREAM (50 gm) TOP SCH (09:26)
--- NOTE | 2017-11-02 13:19 | CP.PCM.CON ---
History of Present Illness - History of Present Illness History of Present Illness: follow up consult' pt evaluated continues to present with depressed mood, irritable affect, no insight into illness , pt continues to refuse any psychiatric care continues to be danger to self in terms of neglecting needed medical and psychiatric care Past Patient History - Infectious Disease Hx of Infectious Diseases: None - Past Medical History & Family History Past Medical History?: Yes - Past Social History Smoking Status: Never Smoked - CARDIAC Hx Hypercholesterolemia: Yes Hx Hypertension: Yes - PULMONARY Hx Chronic Obstructive Pulmonary Disease (COPD): Yes Hx Pneumonia: Yes - NEUROLOGICAL Hx Neurological Disorder: No - HEENT Hx HEENT Problems: No - RENAL Hx Chronic Kidney Disease: Yes - ENDOCRINE/METABOLIC Hx Endocrine Disorders: Yes Hx Diabetes Mellitus Type 2: Yes - HEMATOLOGICAL/ONCOLOGICAL Hx Blood Disorders: No - INTEGUMENTARY Hx Dermatological Problems: No - MUSCULOSKELETAL/RHEUMATOLOGICAL Hx Arthritis: Yes - GASTROINTESTINAL Hx Gastrointestinal Disorders: No - GENITOURINARY/GYNECOLOGICAL Hx Genitourinary Disorders: Yes Hx Incontinence: Yes - PSYCHIATRIC Hx Anxiety: Yes Hx Depression: Yes - SURGICAL HISTORY Hx Tonsillectomy: Yes - ANESTHESIA Hx Anesthesia: Yes Hx Anesthesia Reactions: No Hx Malignant Hyperthermia: No Meds Allergies/Adverse Reactions: Allergies Allergy/AdvReac Type Severity Reaction Status Date / Time No Known Allergies Allergy Verified 05/08/17 21:15 - Medications Medications: Current Medications Acetaminophen (Tylenol 325mg Tab) 650 mg PO Q4 PRN PRN Reason: Pain, moderate (4-7) Last Admin: 11/02/17 06:59 Dose: 650 mg Aspirin (Ecotrin) 81 mg PO DAILY [facility] Last Admin: 10/21/17 08:49 Dose: 81 mg Atorvastatin Calcium (Lipitor) 40 mg PO QPM [facility] Last Admin: 10/21/17 17:21 Dose: Not Given Dextrose (Dextrose 50% Inj) 0 ml IV STAT PRN; Protocol PRN Reason: Hypoglycemia Protocol Dextrose (Glutose 15) 0 gm PO ONCE PRN; Protocol PRN Reason: Hypoglycemia Protocol Dextrose (Dextrose 50% Inj) 0 ml IV STAT PRN; Protocol PRN Reason: Hypoglycemia Protocol Dextrose (Glutose 15) 0 gm PO ONCE PRN; Protocol PRN Reason: Hypoglycemia Protocol Epoetin Axel (Procrit) 10,000 unit SC MWF [facility] Last Admin: 11/01/17 09:21 Dose: 10,000 unit Ergocalciferol (Drisdol 50,000 Intl Units Cap) 1 cap PO Q7D [facility] Last Admin: 10/28/17 14:06 Dose: 1 cap Escitalopram Oxalate (Lexapro) 5 mg PO DAILY [facility] Last Admin: 11/02/17 09:05 Dose: 5 mg Glucagon (Glucagen Diagnostic Kit) 0 mg IM STAT PRN; Protocol PRN Reason: Hypoglycemia Protocol Glucagon (Glucagen Diagnostic Kit) 0 mg IM STAT PRN; Protocol PRN Reason: Hypoglycemia Protocol Fluconazole (Diflucan Iv 100 Mg/50 Ml Ns) 50 mls @ 50 mls/hr IVPB DAILY [facility] PRN Reason: Protocol Last Admin: 11/02/17 09:05 Dose: 50 mls/hr Iron Sucrose 100 mg/ Sodium (Chloride) 105 mls @ 105 mls/hr IVPB DAILY [facility] Stop: 11/06/17 09:59 Last Admin: 11/02/17 09:11 Dose: 105 mls/hr Insulin Human Regular (Humulin R) 0 units SC ACHS [facility] PRN Reason: Protocol Last Admin: 11/02/17 12:04 Dose: 2 units Lidocaine (Lidoderm) 1 ea TD DAILY [facility] Last Admin: 11/02/17 09:08 Dose: 1 ea Nystatin (Nystop Topical Powder) 1 applic TOP TID [facility] Last Admin: 11/02/17 09:26 Dose: 1 applic Pantoprazole Sodium (Protonix Inj) 40 mg IVP DAILY [facility] Last Admin: 11/02/17 09:13 Dose: 40 mg Silver Sulfadiazine (Silvadene 1% 50 Gm) 1 applic TOP DAILY [facility] Last Admin: 11/02/17 09:26 Dose: 1 applic Vancomycin HCl (Vancocin (Oral/Rectal Use)) 125 mg PO Q6 [facility] PRN Reason: Protocol Last Admin: 11/02/17 09:10 Dose: 125 mg Results - Vital Signs Recent Vital Signs: Last Vital Signs Temp 98.6 F 11/02/17 12:10 Pulse 78 11/02/17 12:10 Resp 18 11/02/17 12:10 BP 128/74 11/02/17 12:10 Pulse Ox 98 11/02/17 12:10 - Labs Result Diagrams: 11/02/17 07:00 11/02/17 07:00 Labs: Laboratory Results - last 24 hr 11/01/17 11/01/17 11/02/17 16:09 22:09 06:13 WBC RBC Hgb Hct MCV MCH MCHC RDW Plt Count MPV Neut % (Auto) Lymph % (Auto) Dane % (Auto) Eos % (Auto) Baso % (Auto) Neut # (Auto) Lymph # (Auto) Dane # (Auto) Eos # (Auto) Baso # (Auto) Sodium Potassium Chloride Carbon Dioxide Anion Gap BUN Creatinine Est GFR ( Amer) Est GFR (Non-Af Amer) POC Glucose (mg/dL) 202 H 147 H 166 H Random Glucose Calcium Phosphorus Total Bilirubin AST ALT Alkaline Phosphatase Total Protein Albumin Globulin Albumin/Globulin Ratio 11/02/17 11/02/17 07:00 07:00 WBC 6.1 RBC 2.81 L Hgb 7.7 L Hct 24.7 L MCV 88.0 MCH 27.5 MCHC 31.2 L RDW 18.5 H Plt Count 246 MPV 8.2 Neut % (Auto) 43.7 L Lymph % (Auto) 40.3 H Dane % (Auto) 11.7 H Eos % (Auto) 3.2 Baso % (Auto) 1.1 Neut # (Auto) 2.6 Lymph # (Auto) 2.4 Dane # (Auto) 0.7 Eos # (Auto) 0.2 Baso # (Auto) 0.1 Sodium 141 Potassium 4.1 Chloride 110 H Carbon Dioxide 22 Anion Gap 13 BUN 32 H Creatinine 2.6 H Est GFR ( Amer) 22 Est GFR (Non-Af Amer) 18 POC Glucose (mg/dL) Random Glucose 141 H Calcium 8.0 L Phosphorus 3.6 Total Bilirubin 0.3 AST 20 ALT 26 Alkaline Phosphatase 79 Total Protein 4.9 L Albumin 2.3 L Globulin 2.7 Albumin/Globulin Ratio 0.8 L Assessment & Plan - Assessment and Plan (Free Text) Assessment: major depression recurrent psychological condition affecting medical condition Plan: pt will be referred for screening for possible involuntary admission for further stabilization
[2017-11-02 18:58] LABS: COMPLEMENT C4 29.1 mg/dL (14.0-44.0)
--- NOTE | 2017-11-02 19:04 | CP.PCM.PN ---
Subjective - Date & Time of Evaluation Date of Evaluation: 11/02/17 Time of Evaluation: 13:00 - Subjective Subjective: Reportedly not being cooperative with PT; otherwise denies any complaints; tolerating diet; no shortness of breath; clay not yet changed at time of encounter; Objective - Vital Signs/Intake and Output Vital Signs (last 24 hours): Temp Pulse Resp BP Pulse Ox 97.4 F L 77 18 132/84 100 11/02/17 16:25 11/02/17 16:25 11/02/17 16:25 11/02/17 16:25 11/02/17 16:25 Intake and Output: 11/02/17 11/03/17 18:59 06:59 Intake Total 1230 Output Total 800 Balance 430 - Medications Medications: Current Medications Acetaminophen (Tylenol 325mg Tab) 650 mg PO Q4 PRN PRN Reason: Pain, moderate (4-7) Last Admin: 11/02/17 06:59 Dose: 650 mg Aspirin (Ecotrin) 81 mg PO DAILY [facility] Last Admin: 10/21/17 08:49 Dose: 81 mg Atorvastatin Calcium (Lipitor) 40 mg PO QPM [facility] Last Admin: 10/21/17 17:21 Dose: Not Given Dextrose (Dextrose 50% Inj) 0 ml IV STAT PRN; Protocol PRN Reason: Hypoglycemia Protocol Dextrose (Glutose 15) 0 gm PO ONCE PRN; Protocol PRN Reason: Hypoglycemia Protocol Dextrose (Dextrose 50% Inj) 0 ml IV STAT PRN; Protocol PRN Reason: Hypoglycemia Protocol Dextrose (Glutose 15) 0 gm PO ONCE PRN; Protocol PRN Reason: Hypoglycemia Protocol Epoetin Axel (Procrit) 10,000 unit SC MWF [facility] Last Admin: 11/01/17 09:21 Dose: 10,000 unit Ergocalciferol (Drisdol 50,000 Intl Units Cap) 1 cap PO Q7D [facility] Last Admin: 10/28/17 14:06 Dose: 1 cap Escitalopram Oxalate (Lexapro) 5 mg PO DAILY [facility] Last Admin: 11/02/17 09:05 Dose: 5 mg Fluconazole (Diflucan) 100 mg PO DAILY [facility] PRN Reason: Protocol Glucagon (Glucagen Diagnostic Kit) 0 mg IM STAT PRN; Protocol PRN Reason: Hypoglycemia Protocol Glucagon (Glucagen Diagnostic Kit) 0 mg IM STAT PRN; Protocol PRN Reason: Hypoglycemia Protocol Iron Sucrose 100 mg/ Sodium (Chloride) 105 mls @ 105 mls/hr IVPB DAILY [facility] Stop: 11/06/17 09:59 Last Admin: 11/02/17 09:11 Dose: 105 mls/hr Insulin Human Regular (Humulin R) 0 units SC ACHS [facility] PRN Reason: Protocol Last Admin: 11/02/17 17:38 Dose: 1 units Lidocaine (Lidoderm) 1 ea TD DAILY [facility] Last Admin: 11/02/17 09:08 Dose: 1 ea Nystatin (Nystop Topical Powder) 1 applic TOP TID [facility] Last Admin: 11/02/17 17:43 Dose: 1 applic Pantoprazole Sodium (Protonix Inj) 40 mg IVP DAILY [facility] Last Admin: 11/02/17 09:13 Dose: 40 mg Silver Sulfadiazine (Silvadene 1% 50 Gm) 1 applic TOP DAILY [facility] Last Admin: 11/02/17 09:26 Dose: 1 applic Vancomycin HCl (Vancocin (Oral/Rectal Use)) 125 mg PO Q6 [facility] PRN Reason: Protocol Last Admin: 11/02/17 17:39 Dose: 125 mg - Labs Labs: 11/02/17 07:00 11/02/17 07:00 PT 12.3 Seconds (9.8-13.1) 10/20/17 19:46 INR 1.1 (0.9-1.2) 10/20/17 19:46 APTT 33.2 Seconds (25.6-37.1) D 10/21/17 04:18 - Constitutional Appears: Non-toxic, No Acute Distress - Eye Exam Eye Exam: Normal appearance. absent: Scleral icterus - ENT Exam ENT Exam: Mucous Membranes Moist - Respiratory Exam Respiratory Exam: Clear to Ausculation Bilateral. absent: Respiratory Distress - Cardiovascular Exam Cardiovascular Exam: +S1, +S2. absent: Gallop - GI/Abdominal Exam GI & Abdominal Exam: Soft. absent: Distended, Tenderness - Exam Exam: absent: Bladder Distension - Extremities Exam Additional comments: pedal edema; - Neurological Exam Neurological Exam: Alert, Awake - Psychiatric Exam Psychiatric exam: absent: Agitated - Skin Skin Exam: Warm. absent: Cyanosis Assessment and Plan (1) Acute renal failure Assessment & Plan: NINA on CKD IV; renal function continues to improve; still late CKD IV; need to monitor closely as outpatient; Status: Acute (2) Chronic kidney disease (CKD), stage IV (severe) Status: Chronic (3) Metabolic acidosis Status: Resolved (4) Hyperkalemia Status: Resolved (5) Septic shock Assessment & Plan: Off meropenem, recommend to repeat urine culture in 1 week due to high risk for urosepsis with in-dwelling ureteral stents; Status: Acute (6) Anemia Status: Acute (7) Hypertension Status: Chronic
[2017-11-03] MEDS: Vancomycin 500 mg (Oral/Rectal USE) PO SCH ×4 (04:40→21:41)
[2017-11-03 06:58] LABS: ALB/GLOB RATIO 0.8 (1.0-2.1); ALBUMIN 2.2 g/dL (3.5-5.0); CALCIUM 7.7 mg/dL (8.4-10.2)
[2017-11-03] MEDS: Insulin Regular 100 units/ml SC SCH ×4 (08:42→22:00)
[2017-11-03] MEDS: Lidocaine 5% Patch TD SCH (08:43)
[2017-11-03] MEDS: EPOETIN ALFA 10,000 UNIT/ML ML SC SCH (08:46)
[2017-11-03] MEDS: Silver Sulfadiazine 1% CREAM (50 gm) TOP SCH (08:49)
--- NOTE | 2017-11-03 08:53 | CP.PCM.PN ---
<Katelyn Pierce - Last Filed: 11/03/17 14:59> Subjective - Date & Time of Evaluation Date of Evaluation: 11/03/17 Time of Evaluation: 08:53 - Subjective Subjective: Pt. seen at bedside this morning. No overnight events, reports less knee pain. Denies chest pain, dyspnea, chills, or abdominal pain. Afebrile. Objective - Vital Signs/Intake and Output Vital Signs (last 24 hours): Temp Pulse Resp BP Pulse Ox 98.5 F 74 18 130/81 99 11/03/17 07:36 11/03/17 07:36 11/03/17 07:36 11/03/17 07:36 11/03/17 07:36 Intake and Output: 11/03/17 11/03/17 06:59 18:59 Intake Total 40 Balance 40 - Medications Medications: Current Medications Acetaminophen (Tylenol 325mg Tab) 650 mg PO Q4 PRN PRN Reason: Pain, moderate (4-7) Last Admin: 11/02/17 06:59 Dose: 650 mg Aspirin (Ecotrin) 81 mg PO DAILY [facility] Last Admin: 10/21/17 08:49 Dose: 81 mg Atorvastatin Calcium (Lipitor) 40 mg PO QPM [facility] Last Admin: 10/21/17 17:21 Dose: Not Given Dextrose (Dextrose 50% Inj) 0 ml IV STAT PRN; Protocol PRN Reason: Hypoglycemia Protocol Dextrose (Glutose 15) 0 gm PO ONCE PRN; Protocol PRN Reason: Hypoglycemia Protocol Dextrose (Dextrose 50% Inj) 0 ml IV STAT PRN; Protocol PRN Reason: Hypoglycemia Protocol Dextrose (Glutose 15) 0 gm PO ONCE PRN; Protocol PRN Reason: Hypoglycemia Protocol Epoetin Axel (Procrit) 10,000 unit SC MWF [facility] Last Admin: 11/03/17 08:46 Dose: 10,000 unit Ergocalciferol (Drisdol 50,000 Intl Units Cap) 1 cap PO Q7D [facility] Last Admin: 10/28/17 14:06 Dose: 1 cap Escitalopram Oxalate (Lexapro) 5 mg PO DAILY [facility] Last Admin: 11/03/17 08:42 Dose: 5 mg Fluconazole (Diflucan) 100 mg PO DAILY [facility] PRN Reason: Protocol Last Admin: 11/03/17 08:42 Dose: 100 mg Glucagon (Glucagen Diagnostic Kit) 0 mg IM STAT PRN; Protocol PRN Reason: Hypoglycemia Protocol Glucagon (Glucagen Diagnostic Kit) 0 mg IM STAT PRN; Protocol PRN Reason: Hypoglycemia Protocol Iron Sucrose 100 mg/ Sodium (Chloride) 105 mls @ 105 mls/hr IVPB DAILY [facility] Stop: 11/06/17 09:59 Last Admin: 11/02/17 09:11 Dose: 105 mls/hr Insulin Human Regular (Humulin R) 0 units SC ACHS [facility] PRN Reason: Protocol Last Admin: 11/03/17 08:42 Dose: Not Given Lidocaine (Lidoderm) 1 ea TD DAILY [facility] Last Admin: 11/03/17 08:43 Dose: 1 ea Nystatin (Nystop Topical Powder) 1 applic TOP TID [facility] Last Admin: 11/03/17 08:44 Dose: 1 applic Pantoprazole Sodium (Protonix Inj) 40 mg IVP DAILY [facility] Last Admin: 11/03/17 08:44 Dose: 40 mg Silver Sulfadiazine (Silvadene 1% 50 Gm) 1 applic TOP DAILY [facility] Last Admin: 11/03/17 08:49 Dose: 1 applic Vancomycin HCl (Vancocin (Oral/Rectal Use)) 125 mg PO Q6 [facility] PRN Reason: Protocol Last Admin: 11/03/17 04:40 Dose: 125 mg - Labs Labs: 11/02/17 07:00 11/03/17 06:00 PT 12.3 Seconds (9.8-13.1) 10/20/17 19:46 INR 1.1 (0.9-1.2) 10/20/17 19:46 APTT 33.2 Seconds (25.6-37.1) D 10/21/17 04:18 - Constitutional Appears: No Acute Distress - Eye Exam Eye Exam: Normal appearance - Respiratory Exam Respiratory Exam: Clear to Ausculation Bilateral, NORMAL BREATHING PATTERN - Cardiovascular Exam Cardiovascular Exam: REGULAR RHYTHM. absent: Tachycardia - GI/Abdominal Exam GI & Abdominal Exam: Soft, Normal Bowel Sounds. absent: Tenderness - Extremities Exam Extremities Exam: absent: Calf Tenderness, Pedal Edema - Neurological Exam Neurological Exam: Alert, Awake, Oriented x3 - Skin Additional comments: Ulcer present on Sacrum: Purple localized DTI, non blanchable. R foot: localized erythema (DTI) in plantar aspect of great toe and right heel , stable L foot: Stage 2 pressure ulcer noted on medial aspect of heel. Assessment and Plan - Assessment and Plan (Free Text) Assessment: 77 y.o. female admitted for septic shock (resolved) and acute kidney injury which is improving. Patient with Major depression recurrence. Psych recs for psychiatric hospitalization pt refuses. 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 Plan: 1- Acute Kidney Injury on CKD, improving - BUN/Cr 33/2.7 - Nephro on board Dr. Garcia. - ID on board - c/w Diflucam 50mg daily for fungurea (day 9) 2 - Anemia, chronic disease - H/H: 7.5/23.5 - Repeat FOBT negative - Continue I.V. Venofer 100 mg 1 bag daily for a total of 10 days (day 7) 3- Major depression, recurrent - Psych consult appreciated: Dr Ardon - start lexapro 5 mg PO daily - pt needs psychiatric hospitalization, current mental status she has limited insight into her psychiatric condition which is affecting her medical condition - pt was hesitant when offered admission to psychiatry for stabilization. - will be referred for screening for possible involuntary admission for further stabilization. 4 - +C diff colitis- Improving - c/w vanco PO (day 12) 5 - Deconditioning with Generalized weakness - PT: KATHY 6 - Hypertension, controlled- well controlled - Held home BP meds 7 - Diabetes Mellitus type 2, controlled - Continue current management 8 - Wound assessment - Ulcer present on Sacrum: Purple localized DTI, non blanchable, stable. - R foot: localized erythema (DTI) in plantar aspect of great toe and right heel resolving. - L foot: Stage 2 pressure ulcer noted on medial aspect of heel, stable. - Wound care on board 9 - DVT prophylaxis - Heparin SC BID 10 - Code DNR: Documentation reviewed: Status was discussed with family via Dr. Garcia and made aware by Dr. Mendes. <Min Woody - Last Filed: 11/06/17 06:52> Objective - Vital Signs/Intake and Output Vital Signs (last 24 hours): Temp Pulse Resp BP Pulse Ox 98.6 F 76 19 123/71 100 11/06/17 00:00 11/06/17 00:00 11/06/17 00:00 11/06/17 00:00 11/06/17 00:00 - Medications Medications: Current Medications Acetaminophen (Tylenol 325mg Tab) 650 mg PO Q4 PRN PRN Reason: Pain, moderate (4-7) Last Admin: 11/04/17 08:19 Dose: 650 mg Aspirin (Ecotrin) 81 mg PO DAILY [facility] Last Admin: 10/21/17 08:49 Dose: 81 mg Atorvastatin Calcium (Lipitor) 40 mg PO QPM [facility] Last Admin: 10/21/17 17:21 Dose: Not Given Dextrose (Glutose 15) 0 gm PO ONCE PRN; Protocol PRN Reason: Hypoglycemia Protocol Dextrose (Dextrose 50% Inj) 0 ml IV STAT PRN; Protocol PRN Reason: Hypoglycemia Protocol Epoetin Axel (Procrit) 10,000 unit SC MWF [facility] Last Admin: 11/03/17 08:46 Dose: 10,000 unit Ergocalciferol (Drisdol 50,000 Intl Units Cap) 1 cap PO Q7D [facility] Last Admin: 11/04/17 12:41 Dose: 1 cap Escitalopram Oxalate (Lexapro) 5 mg PO DAILY [facility] Last Admin: 11/05/17 09:19 Dose: 5 mg Fluconazole (Diflucan) 100 mg PO DAILY [facility] PRN Reason: Protocol Last Admin: 11/05/17 09:19 Dose: 100 mg Glucagon (Glucagen Diagnostic Kit) 0 mg IM STAT PRN; Protocol PRN Reason: Hypoglycemia Protocol Heparin Sodium (Porcine) (Heparin) 5,000 units SC Q12 [facility] PRN Reason: Protocol Last Admin: 11/05/17 21:34 Dose: 5,000 units Iron Sucrose 100 mg/ Sodium (Chloride) 105 mls @ 105 mls/hr IVPB DAILY [facility] Stop: 11/06/17 09:59 Last Admin: 11/05/17 12:53 Dose: 105 mls/hr Insulin Human Regular (Humulin R) 0 units SC ACHS [facility] PRN Reason: Protocol Last Admin: 11/05/17 21:38 Dose: Not Given Lidocaine (Lidoderm) 1 ea TD DAILY [facility] Last Admin: 11/05/17 09:18 Dose: 1 ea Nystatin (Nystop Topical Powder) 1 applic TOP TID [facility] Last Admin: 11/05/17 17:41 Dose: 1 applic Silver Sulfadiazine (Silvadene 1% 50 Gm) 1 applic TOP DAILY [facility] Last Admin: 11/05/17 09:19 Dose: 1 applic - Labs Labs: 11/05/17 06:40 11/05/17 06:40 PT 12.3 Seconds (9.8-13.1) 10/20/17 19:46 INR 1.1 (0.9-1.2) 10/20/17 19:46 APTT 33.2 Seconds (25.6-37.1) D 10/21/17 04:18 Attending/Attestation - Attestation I have personally seen and examined this patient.: Yes I have fully participated in the care of the patient.: Yes I have reviewed all pertinent clinical information, including history, physical exam and plan: Yes
--- NOTE | 2017-11-03 15:55 | CP.PCM.PN ---
Subjective - Date & Time of Evaluation Date of Evaluation: 11/03/17 Time of Evaluation: 15:53 - Subjective Subjective: ID Note- pt. seen and examined today. no new events overnight. Objective - Vital Signs/Intake and Output Vital Signs (last 24 hours): Temp Pulse Resp BP Pulse Ox 98.8 F 69 18 131/76 98 11/03/17 12:19 11/03/17 12:19 11/03/17 12:19 11/03/17 12:19 11/03/17 12:19 Intake and Output: 11/03/17 11/03/17 06:59 18:59 Intake Total 40 Balance 40 - Medications Medications: Current Medications Acetaminophen (Tylenol 325mg Tab) 650 mg PO Q4 PRN PRN Reason: Pain, moderate (4-7) Last Admin: 11/03/17 12:48 Dose: 650 mg Aspirin (Ecotrin) 81 mg PO DAILY [facility] Last Admin: 10/21/17 08:49 Dose: 81 mg Atorvastatin Calcium (Lipitor) 40 mg PO QPM [facility] Last Admin: 10/21/17 17:21 Dose: Not Given Dextrose (Dextrose 50% Inj) 0 ml IV STAT PRN; Protocol PRN Reason: Hypoglycemia Protocol Dextrose (Glutose 15) 0 gm PO ONCE PRN; Protocol PRN Reason: Hypoglycemia Protocol Dextrose (Dextrose 50% Inj) 0 ml IV STAT PRN; Protocol PRN Reason: Hypoglycemia Protocol Dextrose (Glutose 15) 0 gm PO ONCE PRN; Protocol PRN Reason: Hypoglycemia Protocol Epoetin Axel (Procrit) 10,000 unit SC MWF [facility] Last Admin: 11/03/17 08:46 Dose: 10,000 unit Ergocalciferol (Drisdol 50,000 Intl Units Cap) 1 cap PO Q7D [facility] Last Admin: 10/28/17 14:06 Dose: 1 cap Escitalopram Oxalate (Lexapro) 5 mg PO DAILY [facility] Last Admin: 11/03/17 08:42 Dose: 5 mg Fluconazole (Diflucan) 100 mg PO DAILY [facility] PRN Reason: Protocol Last Admin: 11/03/17 08:42 Dose: 100 mg Glucagon (Glucagen Diagnostic Kit) 0 mg IM STAT PRN; Protocol PRN Reason: Hypoglycemia Protocol Glucagon (Glucagen Diagnostic Kit) 0 mg IM STAT PRN; Protocol PRN Reason: Hypoglycemia Protocol Iron Sucrose 100 mg/ Sodium (Chloride) 105 mls @ 105 mls/hr IVPB DAILY [facility] Stop: 11/06/17 09:59 Last Admin: 11/03/17 12:44 Dose: 105 mls/hr Insulin Human Regular (Humulin R) 0 units SC ACHS [facility] PRN Reason: Protocol Last Admin: 11/03/17 12:46 Dose: 3 units Lidocaine (Lidoderm) 1 ea TD DAILY [facility] Last Admin: 11/03/17 08:43 Dose: 1 ea Nystatin (Nystop Topical Powder) 1 applic TOP TID [facility] Last Admin: 11/03/17 12:45 Dose: 1 applic Pantoprazole Sodium (Protonix Inj) 40 mg IVP DAILY [facility] Last Admin: 11/03/17 08:44 Dose: 40 mg Silver Sulfadiazine (Silvadene 1% 50 Gm) 1 applic TOP DAILY [facility] Last Admin: 11/03/17 08:49 Dose: 1 applic Vancomycin HCl (Vancocin (Oral/Rectal Use)) 125 mg PO Q6 [facility] PRN Reason: Protocol Last Admin: 11/03/17 08:59 Dose: 125 mg - Labs Labs: - Additional Findings Additional findings: - Constitutional Appears: awake , alert and in good spirits - Head Exam Head Exam: ATRAUMATIC - Respiratory Exam Additional comments: good breath sounds heard b/l - Cardiovascular Exam Cardiovascular Exam: RRR, +S1, +S2 - GI/Abdominal Exam Additional comments: soft, NT, ND, + BS - Extremities Exam Additional comments: 1+ LE edema B/L - Neurological Exam AAO x 3 today clay cath- less cloudy Laboratory Results - last 72 hr 10/31/17 10/31/17 11/01/17 16:32 21:40 05:55 WBC RBC Hgb Hct MCV MCH MCHC RDW Plt Count MPV Neut % (Auto) Lymph % (Auto) [place] % (Auto) Eos % (Auto) Baso % (Auto) Neut # (Auto) Lymph # (Auto) [place] # (Auto) Eos # (Auto) Baso # (Auto) Sodium Potassium Chloride Carbon Dioxide Anion Gap BUN Creatinine Est GFR ( Amer) Est GFR (Non-Af Amer) POC Glucose (mg/dL) 199 H 154 H 172 H Random Glucose Calcium Phosphorus Total Bilirubin AST ALT Alkaline Phosphatase Total Protein Albumin Globulin Albumin/Globulin Ratio Urine Creatinine Urine Microalbumin Microalb/Creat Ratio Complement C3 Complement C4 C. difficile Ag & Toxin 11/01/17 11/01/17 11/01/17 10:56 16:09 22:09 WBC RBC Hgb Hct MCV MCH MCHC RDW Plt Count MPV Neut % (Auto) Lymph % (Auto) [place] % (Auto) Eos % (Auto) Baso % (Auto) Neut # (Auto) Lymph # (Auto) [place] # (Auto) Eos # (Auto) Baso # (Auto) Sodium Potassium Chloride Carbon Dioxide Anion Gap BUN Creatinine Est GFR ( Amer) Est GFR (Non-Af Amer) POC Glucose (mg/dL) 226 H 202 H 147 H Random Glucose Calcium Phosphorus Total Bilirubin AST ALT Alkaline Phosphatase Total Protein Albumin Globulin Albumin/Globulin Ratio Urine Creatinine Urine Microalbumin Microalb/Creat Ratio Complement C3 Complement C4 C. difficile Ag & Toxin 11/02/17 11/02/17 11/02/17 06:13 07:00 07:00 WBC 6.1 RBC 2.81 L Hgb 7.7 L Hct 24.7 L MCV 88.0 MCH 27.5 MCHC 31.2 L RDW 18.5 H Plt Count 246 MPV 8.2 Neut % (Auto) 43.7 L Lymph % (Auto) 40.3 H [place] % (Auto) 11.7 H Eos % (Auto) 3.2 Baso % (Auto) 1.1 Neut # (Auto) 2.6 Lymph # (Auto) 2.4 [place] # (Auto) 0.7 Eos # (Auto) 0.2 Baso # (Auto) 0.1 Sodium 141 Potassium 4.1 Chloride 110 H Carbon Dioxide 22 Anion Gap 13 BUN 32 H Creatinine 2.6 H Est GFR ( Amer) 22 Est GFR (Non-Af Amer) 18 POC Glucose (mg/dL) 166 H Random Glucose 141 H Calcium 8.0 L Phosphorus 3.6 Total Bilirubin 0.3 AST 20 ALT 26 Alkaline Phosphatase 79 Total Protein 4.9 L Albumin 2.3 L Globulin 2.7 Albumin/Globulin Ratio 0.8 L Urine Creatinine Urine Microalbumin Microalb/Creat Ratio Complement C3 Complement C4 C. difficile Ag & Toxin 11/02/17 11/02/17 11/02/17 07:00 07:00 08:11 WBC RBC Hgb Hct MCV MCH MCHC RDW Plt Count MPV Neut % (Auto) Lymph % (Auto) [place] % (Auto) Eos % (Auto) Baso % (Auto) Neut # (Auto) Lymph # (Auto) [place] # (Auto) Eos # (Auto) Baso # (Auto) Sodium Potassium Chloride Carbon Dioxide Anion Gap BUN Creatinine Est GFR ( Amer) Est GFR (Non-Af Amer) POC Glucose (mg/dL) Random Glucose Calcium Phosphorus Total Bilirubin AST ALT Alkaline Phosphatase Total Protein Albumin Globulin Albumin/Globulin Ratio Urine Creatinine TNP Urine Microalbumin TNP Microalb/Creat Ratio Complement C3 87.0 L Complement C4 29.1 C. difficile Ag & Toxin N 11/02/17 11/02/17 11/02/17 11:13 16:13 21:28 WBC RBC Hgb Hct MCV MCH MCHC RDW Plt Count MPV Neut % (Auto) Lymph % (Auto) [place] % (Auto) Eos % (Auto) Baso % (Auto) Neut # (Auto) Lymph # (Auto) [place] # (Auto) Eos # (Auto) Baso # (Auto) Sodium Potassium Chloride Carbon Dioxide Anion Gap BUN Creatinine Est GFR ( Amer) Est GFR (Non-Af Amer) POC Glucose (mg/dL) 202 H 166 H 150 H Random Glucose Calcium Phosphorus Total Bilirubin AST ALT Alkaline Phosphatase Total Protein Albumin Globulin Albumin/Globulin Ratio Urine Creatinine Urine Microalbumin Microalb/Creat Ratio Complement C3 Complement C4 C. difficile Ag & Toxin 11/03/17 11/03/17 11/03/17 04:45 06:00 10:45 WBC RBC Hgb Hct MCV MCH MCHC RDW Plt Count MPV Neut % (Auto) Lymph % (Auto) [place] % (Auto) Eos % (Auto) Baso % (Auto) Neut # (Auto) Lymph # (Auto) [place] # (Auto) Eos # (Auto) Baso # (Auto) Sodium 142 Potassium 4.6 Chloride 108 H Carbon Dioxide 22 Anion Gap 17 BUN 33 H Creatinine 2.7 H Est GFR ( Amer) 21 Est GFR (Non-Af Amer) 17 POC Glucose (mg/dL) 140 H 269 H Random Glucose 133 H Calcium 7.7 L Phosphorus Total Bilirubin 0.4 AST 34 ALT 26 Alkaline Phosphatase 67 Total Protein 4.9 L Albumin 2.2 L Globulin 2.8 Albumin/Globulin Ratio 0.8 L Urine Creatinine Urine Microalbumin Microalb/Creat Ratio Complement C3 Complement C4 C. difficile Ag & Toxin Microbiology 10/27/17 20:07 Blood-Venous Blood Culture - Final NO GROWTH AFTER 5 DAYS 10/27/17 20:07 Blood-Venous Gram Stain - Final TEST NOT PERFORMED 10/27/17 20:07 Blood-Venous Blood Culture - Final NO GROWTH AFTER 5 DAYS 10/31/17 15:37 Nose MRSA Culture (Admit) - Final MRSA NOT DETECTED 10/27/17 09:10 Urine,Catheterized Urine Culture - Final No Growth (<1,000 CFU/ML) 10/21/17 14:48 Blood-Venous Blood Culture - Final NO GROWTH AFTER 5 DAYS 10/21/17 14:48 Blood-Venous Gram Stain - Final TEST NOT PERFORMED 10/21/17 15:40 Blood-Venous Blood Culture - Final NO GROWTH AFTER 5 DAYS 10/21/17 15:40 Blood-Venous Gram Stain - Final TEST NOT PERFORMED 10/20/17 20:00 Blood Blood Culture - Final NO GROWTH AFTER 5 DAYS 10/20/17 20:00 Blood Gram Stain - Final TEST NOT PERFORMED 10/20/17 19:46 Blood Blood Culture - Final NO GROWTH AFTER 5 DAYS 10/20/17 19:46 Blood Gram Stain - Final TEST NOT PERFORMED 10/23/17 11:40 Urine,Clay Urine Culture - Final Yeast Species 10/20/17 10:30 Naris MRSA Culture (Admit) - Final MRSA NOT DETECTED Assessment and Plan (1) Acute on chronic renal failure Status: Acute (2) Metabolic acidosis Status: Resolved (3) Septic shock Status: Acute (4) UTI (urinary tract infection) Status: Acute (5) Hyperkalemia Status: Resolved - Assessment and Plan (Free Text) Assessment: /P- 77 year old female with multiple medical conditions and noncomplaint including CKD stage 4, DM II, b/l ureteral stents ( repaced 09/2017) admitted with change in MS, lethargy was found to be hyperkalemic, metabolic acidosis, acute on chronic renal insufficiency and leukocytosis. clinically much improved. s/p extubation last week. blood cx- neg x 4 urine cx- yeast leukocytosis has resolved. stool c.diff- pos x 2 third c.diff- neg metabolic acidosis has resolved c.diff colitis improved, leukocytosis - resolved acute on chronic renal failure s/p emergent HD - now much improved, urinating well may need eventual permanent HD as per renal doctor fungurea- being treated plan- completed 12 days of IV meropenem. continue with po vanco for c.diff diarrhea treatment , day #12 advise 2 more days. continue with IV fluconazole for fungurea day #9. can be swithced to oral fluconazole ,for 5 more days. advise to replace the clay. also patient will need to have her ureteral stents removed as it can be source for recurrent UTI's if patient needs the ureteral stents then it must be replaced frequently to avoid recurrent UTi's d/c IJ TLC advised. all above discussed with family practice team who are covering for .
--- NOTE | 2017-11-03 18:25 | CP.PCM.PN ---
Subjective - Date & Time of Evaluation Date of Evaluation: 11/03/17 Time of Evaluation: 22:00 - Subjective Subjective: Denies any complaints; no sob/nausea/vomiting; Objective - Vital Signs/Intake and Output Vital Signs (last 24 hours): Temp Pulse Resp BP Pulse Ox 98.6 F 71 18 115/70 99 11/03/17 16:14 11/03/17 16:14 11/03/17 16:14 11/03/17 16:14 11/03/17 16:14 Intake and Output: 11/03/17 11/03/17 06:59 18:59 Intake Total 40 1180 Output Total 1200 Balance 40 -20 - Medications Medications: Current Medications Acetaminophen (Tylenol 325mg Tab) 650 mg PO Q4 PRN PRN Reason: Pain, moderate (4-7) Last Admin: 11/03/17 12:48 Dose: 650 mg Aspirin (Ecotrin) 81 mg PO DAILY [facility] Last Admin: 10/21/17 08:49 Dose: 81 mg Atorvastatin Calcium (Lipitor) 40 mg PO QPM [facility] Last Admin: 10/21/17 17:21 Dose: Not Given Dextrose (Glutose 15) 0 gm PO ONCE PRN; Protocol PRN Reason: Hypoglycemia Protocol Dextrose (Dextrose 50% Inj) 0 ml IV STAT PRN; Protocol PRN Reason: Hypoglycemia Protocol Epoetin Axel (Procrit) 10,000 unit SC MWF [facility] Last Admin: 11/03/17 08:46 Dose: 10,000 unit Ergocalciferol (Drisdol 50,000 Intl Units Cap) 1 cap PO Q7D [facility] Last Admin: 10/28/17 14:06 Dose: 1 cap Escitalopram Oxalate (Lexapro) 5 mg PO DAILY [facility] Last Admin: 11/03/17 08:42 Dose: 5 mg Fluconazole (Diflucan) 100 mg PO DAILY [facility] PRN Reason: Protocol Last Admin: 11/03/17 08:42 Dose: 100 mg Glucagon (Glucagen Diagnostic Kit) 0 mg IM STAT PRN; Protocol PRN Reason: Hypoglycemia Protocol Iron Sucrose 100 mg/ Sodium (Chloride) 105 mls @ 105 mls/hr IVPB DAILY [facility] Stop: 11/06/17 09:59 Last Admin: 11/03/17 12:44 Dose: 105 mls/hr Insulin Human Regular (Humulin R) 0 units SC ACHS [facility] PRN Reason: Protocol Last Admin: 11/03/17 17:04 Dose: 1 units Lidocaine (Lidoderm) 1 ea TD DAILY [facility] Last Admin: 11/03/17 08:43 Dose: 1 ea Nystatin (Nystop Topical Powder) 1 applic TOP TID [facility] Last Admin: 11/03/17 17:02 Dose: 1 applic Pantoprazole Sodium (Protonix Inj) 40 mg IVP DAILY [facility] Last Admin: 11/03/17 08:44 Dose: 40 mg Silver Sulfadiazine (Silvadene 1% 50 Gm) 1 applic TOP DAILY [facility] Last Admin: 11/03/17 08:49 Dose: 1 applic Vancomycin HCl (Vancocin (Oral/Rectal Use)) 125 mg PO Q6 [facility] PRN Reason: Protocol Last Admin: 11/03/17 17:03 Dose: 125 mg - Labs Labs: 11/02/17 07:00 11/03/17 06:00 PT 12.3 Seconds (9.8-13.1) 10/20/17 19:46 INR 1.1 (0.9-1.2) 10/20/17 19:46 APTT 33.2 Seconds (25.6-37.1) D 10/21/17 04:18 - Constitutional Appears: Non-toxic, No Acute Distress - Eye Exam Eye Exam: absent: Scleral icterus - ENT Exam ENT Exam: Mucous Membranes Moist - Respiratory Exam Respiratory Exam: Clear to Ausculation Bilateral. absent: Respiratory Distress - Cardiovascular Exam Cardiovascular Exam: RRR, +S1, +S2 - GI/Abdominal Exam GI & Abdominal Exam: Soft. absent: Distended, Tenderness - Exam Exam: absent: Bladder Distension - Extremities Exam Additional comments: pedal edema R > L; - Neurological Exam Neurological Exam: Alert, Awake - Psychiatric Exam Psychiatric exam: Normal Mood. absent: Agitated - Skin Skin Exam: Warm. absent: Cyanosis Assessment and Plan (1) Acute renal failure Assessment & Plan: NINA on CKD IV, resolved; high risk for repeated bouts of NINA due to urosepsis, monitor regularly; Status: Acute (2) Chronic kidney disease (CKD), stage IV (severe) Status: Chronic (3) Metabolic acidosis Status: Resolved (4) Hyperkalemia Status: Resolved (5) Septic shock Status: Acute (6) Anemia Assessment & Plan: On IV iron and EPO, continue; Status: Acute (7) Hypertension Assessment & Plan: BP controlled off anti-htn agents, continue to hold and monitor; Status: Chronic
[2017-11-04] MEDS: Vancomycin 500 mg (Oral/Rectal USE) PO SCH ×4 (05:59→22:32)
[2017-11-04] MEDS: Insulin Regular 100 units/ml SC SCH ×4 (06:37→22:33)
[2017-11-04] MEDS: Lidocaine 5% Patch TD SCH (08:15)
[2017-11-04] MEDS: Silver Sulfadiazine 1% CREAM (50 gm) TOP SCH (09:07)
--- NOTE | 2017-11-04 11:35 | CP.PCM.PN ---
Subjective - Date & Time of Evaluation Date of Evaluation: 11/04/17 Time of Evaluation: 09:00 - Subjective Subjective: Pt. seen at bedside this morning during rounding. No overnight events,no complaints at this time, demanding going home. Denies chest pain, dyspnea, chills, or abdominal pain. Afebrile. Objective - Vital Signs/Intake and Output Vital Signs (last 24 hours): Temp Pulse Resp BP Pulse Ox 98.5 F 74 20 127/73 97 11/04/17 08:03 11/04/17 08:03 11/04/17 08:03 11/04/17 08:03 11/04/17 08:03 - Medications Medications: Current Medications Acetaminophen (Tylenol 325mg Tab) 650 mg PO Q4 PRN PRN Reason: Pain, moderate (4-7) Last Admin: 11/04/17 08:19 Dose: 650 mg Aspirin (Ecotrin) 81 mg PO DAILY [facility] Last Admin: 10/21/17 08:49 Dose: 81 mg Atorvastatin Calcium (Lipitor) 40 mg PO QPM [facility] Last Admin: 10/21/17 17:21 Dose: Not Given Dextrose (Glutose 15) 0 gm PO ONCE PRN; Protocol PRN Reason: Hypoglycemia Protocol Dextrose (Dextrose 50% Inj) 0 ml IV STAT PRN; Protocol PRN Reason: Hypoglycemia Protocol Epoetin Axel (Procrit) 10,000 unit SC MWF [facility] Last Admin: 11/03/17 08:46 Dose: 10,000 unit Ergocalciferol (Drisdol 50,000 Intl Units Cap) 1 cap PO Q7D [facility] Last Admin: 10/28/17 14:06 Dose: 1 cap Escitalopram Oxalate (Lexapro) 5 mg PO DAILY [facility] Last Admin: 11/04/17 08:16 Dose: 5 mg Fluconazole (Diflucan) 100 mg PO DAILY [facility] PRN Reason: Protocol Last Admin: 11/04/17 08:16 Dose: 100 mg Glucagon (Glucagen Diagnostic Kit) 0 mg IM STAT PRN; Protocol PRN Reason: Hypoglycemia Protocol Iron Sucrose 100 mg/ Sodium (Chloride) 105 mls @ 105 mls/hr IVPB DAILY [facility] Stop: 11/06/17 09:59 Last Admin: 11/04/17 09:07 Dose: 105 mls/hr Insulin Human Regular (Humulin R) 0 units SC ACHS [facility] PRN Reason: Protocol Last Admin: 11/04/17 06:37 Dose: Not Given Lidocaine (Lidoderm) 1 ea TD DAILY [facility] Last Admin: 11/04/17 08:15 Dose: 1 ea Nystatin (Nystop Topical Powder) 1 applic TOP TID [facility] Last Admin: 11/04/17 08:17 Dose: 1 applic Pantoprazole Sodium (Protonix Inj) 40 mg IVP DAILY [facility] Last Admin: 11/04/17 08:17 Dose: 40 mg Silver Sulfadiazine (Silvadene 1% 50 Gm) 1 applic TOP DAILY [facility] Last Admin: 11/04/17 09:07 Dose: 1 applic Vancomycin HCl (Vancocin (Oral/Rectal Use)) 125 mg PO Q6 [facility] PRN Reason: Protocol Last Admin: 11/04/17 05:59 Dose: 125 mg - Labs Labs: 11/02/17 07:00 11/03/17 06:00 PT 12.3 Seconds (9.8-13.1) 10/20/17 19:46 INR 1.1 (0.9-1.2) 10/20/17 19:46 APTT 33.2 Seconds (25.6-37.1) D 10/21/17 04:18 - Constitutional Appears: No Acute Distress - Head Exam Head Exam: NORMAL INSPECTION - Respiratory Exam Respiratory Exam: Clear to Ausculation Bilateral, NORMAL BREATHING PATTERN. absent: Rales, Wheezes - Cardiovascular Exam Cardiovascular Exam: REGULAR RHYTHM, +S1, +S2. absent: Tachycardia - GI/Abdominal Exam GI & Abdominal Exam: Soft, Normal Bowel Sounds. absent: Distended, Tenderness - Extremities Exam Extremities Exam: absent: Calf Tenderness - Neurological Exam Neurological Exam: Alert, Awake, Oriented x3 - Skin Additional comments: DTI on sacrum, purple non blanchable. R foot: localized erythema (DTI) in plantar aspect of great toe and right heel , stable L foot: Stage 2 pressure ulcer noted on medial aspect of heel. Assessment and Plan - Assessment and Plan (Free Text) Assessment: 77 y.o. female admitted for septic shock (resolved) and acute kidney injury which is improving. Patient with Major depression recurrence. Psych recs for psychiatric hospitalization pt refuses. Pt. may need Dialysis [facility] in near future, pt reluctant to AVF procedure. SW and protective services on board. Plan: 1- Acute Kidney Injury on CKD, improving - BUN/Cr 33/2.7 - Nephro on board Dr. Garcia. - ID on board - c/w Diflucam 50mg daily for fungurea to complete 15 days (day 10) 2 - Anemia, chronic disease - H/H: 7.5/23.5 - Repeat FOBT negative - Continue I.V. Venofer 100 mg 1 bag daily for a total of 10 days (day 8) 3- Major depression, recurrent - Psych consult appreciated: Dr Ardon - c/w lexapro 5 mg PO daily - pt needs psychiatric hospitalization, current mental status she has limited insight into her psychiatric condition which is affecting her medical condition - pt was hesitant when offered admission to psychiatry for stabilization. - will be referred for screening for possible involuntary admission for further stabilization. 4 - +C diff colitis- Improving - c/w vanco PO to complete 14 days (day 13) 5 - Deconditioning with Generalized weakness - PT: KATHY 6 - Hypertension, controlled- well controlled - Held home BP meds 7 - Diabetes Mellitus type 2, controlled - Continue current management 8 - Wound assessment - DTI present on Sacrum, stable - R foot: localized erythema (DTI) in plantar aspect of great toe and right heel resolving. - L foot: Stage 2 pressure ulcer noted on medial aspect of heel, stable. - Wound care on board 9 - DVT prophylaxis - Heparin SC BID 10 - Code DNR: Status was discussed with family via Dr. Garcia and made aware by Dr. Mendes. will confirm with patient tomorrow.
[2017-11-04] MEDS: Ergocalciferol 50,000 Intl Units Cap PO SCH (12:41)
[2017-11-04 15:24] LABS: URINE BACTERIA OCC (<OCC); URINE BILIRUBIN NEGATIVE (NEGATIVE); URINE BLOOD SMALL (NEGATIVE); URINE CLARITY TURBID (Clear); URINE COLOR YELLOW (YELLOW); URINE GLUCOSE (UA) 150 mg/dL (Normal); URINE LEUKOCYTE ESTERASE LARGE Leu/uL (Negative); URINE PROTEIN 100 mg/dL (NEGATIVE); URINE UROBILINOGEN 0.2-1.0 mg/dL (0.2-1.0); WBC CLUMPS MANY /hpf
[2017-11-04 15:45] LABS: BARBITURATES, UR NEGATIVE (NEGATIVE); BENZODIAZEPINES, UR NEGATIVE (NEGATIVE); OPIATES, UR NEGATIVE (NEGATIVE); PHENCYCLIDINE, UR NEGATIVE (NEGATIVE)
--- NOTE | 2017-11-04 17:56 | CP.PCM.PN ---
Subjective - Date & Time of Evaluation Date of Evaluation: 11/04/17 Time of Evaluation: 13:00 - Subjective Subjective: Patient denies complaints; no sob/nausea/vomiting; Objective - Vital Signs/Intake and Output Vital Signs (last 24 hours): Temp Pulse Resp BP Pulse Ox 97.8 F 114 H 20 121/75 100 11/04/17 16:15 11/04/17 16:15 11/04/17 16:15 11/04/17 16:15 11/04/17 16:15 Intake and Output: 11/04/17 11/04/17 06:59 18:59 Intake Total 580 Output Total 500 Balance 80 - Medications Medications: Current Medications Acetaminophen (Tylenol 325mg Tab) 650 mg PO Q4 PRN PRN Reason: Pain, moderate (4-7) Last Admin: 11/04/17 08:19 Dose: 650 mg Aspirin (Ecotrin) 81 mg PO DAILY [facility] Last Admin: 10/21/17 08:49 Dose: 81 mg Atorvastatin Calcium (Lipitor) 40 mg PO QPM [facility] Last Admin: 10/21/17 17:21 Dose: Not Given Dextrose (Glutose 15) 0 gm PO ONCE PRN; Protocol PRN Reason: Hypoglycemia Protocol Dextrose (Dextrose 50% Inj) 0 ml IV STAT PRN; Protocol PRN Reason: Hypoglycemia Protocol Epoetin Axel (Procrit) 10,000 unit SC MWF [facility] Last Admin: 11/03/17 08:46 Dose: 10,000 unit Ergocalciferol (Drisdol 50,000 Intl Units Cap) 1 cap PO Q7D [facility] Last Admin: 11/04/17 12:41 Dose: 1 cap Escitalopram Oxalate (Lexapro) 5 mg PO DAILY [facility] Last Admin: 11/04/17 08:16 Dose: 5 mg Fluconazole (Diflucan) 100 mg PO DAILY [facility] PRN Reason: Protocol Last Admin: 11/04/17 08:16 Dose: 100 mg Glucagon (Glucagen Diagnostic Kit) 0 mg IM STAT PRN; Protocol PRN Reason: Hypoglycemia Protocol Iron Sucrose 100 mg/ Sodium (Chloride) 105 mls @ 105 mls/hr IVPB DAILY [facility] Stop: 11/06/17 09:59 Last Admin: 11/04/17 09:07 Dose: 105 mls/hr Insulin Human Regular (Humulin R) 0 units SC ACHS [facility] PRN Reason: Protocol Last Admin: 11/04/17 17:33 Dose: 1 units Lidocaine (Lidoderm) 1 ea TD DAILY [facility] Last Admin: 11/04/17 08:15 Dose: 1 ea Nystatin (Nystop Topical Powder) 1 applic TOP TID [facility] Last Admin: 11/04/17 17:34 Dose: 1 applic Pantoprazole Sodium (Protonix Inj) 40 mg IVP DAILY [facility] Last Admin: 11/04/17 08:17 Dose: 40 mg Silver Sulfadiazine (Silvadene 1% 50 Gm) 1 applic TOP DAILY [facility] Last Admin: 11/04/17 09:07 Dose: 1 applic Vancomycin HCl (Vancocin (Oral/Rectal Use)) 125 mg PO Q6 [facility] PRN Reason: Protocol Last Admin: 11/04/17 17:34 Dose: 125 mg - Labs Labs: 11/02/17 07:00 11/03/17 06:00 PT 12.3 Seconds (9.8-13.1) 10/20/17 19:46 INR 1.1 (0.9-1.2) 10/20/17 19:46 APTT 33.2 Seconds (25.6-37.1) D 10/21/17 04:18 - Constitutional Appears: Non-toxic, No Acute Distress - Eye Exam Eye Exam: absent: Scleral icterus - ENT Exam ENT Exam: Mucous Membranes Moist - Respiratory Exam Respiratory Exam: Clear to Ausculation Bilateral. absent: Respiratory Distress - Cardiovascular Exam Cardiovascular Exam: RRR, +S1, +S2 - GI/Abdominal Exam GI & Abdominal Exam: Soft. absent: Distended, Tenderness - Exam Exam: absent: Bladder Distension - Extremities Exam Additional comments: mild pedal edema R > L; - Neurological Exam Neurological Exam: Alert, Awake - Psychiatric Exam Psychiatric exam: absent: Agitated - Skin Skin Exam: Warm. absent: Cyanosis Assessment and Plan (1) Acute renal failure Assessment & Plan: NINA on CKD IV, resolved; need to monitor regularly due to high risk for urosepsis; Status: Acute (2) Chronic kidney disease (CKD), stage IV (severe) Assessment & Plan: Proteinuric kidney disease; again discussed need for AVF placement with son at bedside, patient still hesitant; Status: Chronic (3) Metabolic acidosis Status: Resolved (4) Hyperkalemia Status: Resolved (5) Septic shock Assessment & Plan: On diflucan and PO vanco, no renal dose adjustment needed; should repeat urine culture in a few days; Status: Acute (6) Anemia Assessment & Plan: On IV iron and EPO, hgb slowly improving, continue; Status: Acute (7) Hypertension Assessment & Plan: Not needing any anti-htn meds for now; GFR borderline for TILA blockade so should avoid; monitor; Status: Chronic
[2017-11-05] MEDS: Vancomycin 500 mg (Oral/Rectal USE) PO SCH ×2 (04:33→09:20)
[2017-11-05 07:36] LABS: BASO # 0.1 K/uL (0.0-0.2); BASO % 2.3 % (0.0-2.0); EOS # 0.2 K/uL (0.0-0.7); EOS % 3.8 % (0.0-4.0); HEMOGLOBIN 8.2 g/dL (12.0-16.0); LYMPH % 38.5 % (20.0-40.0); MEAN CELL VOLUME 89.5 fl (81.0-99.0); MEAN CORPUSCULAR HEMOGLOBIN 27.9 pg (27.0-31.0); MEAN CORPUSCULAR HGB CONC 31.2 g/dL (33.0-37.0); MEAN PLATELET VOLUME 7.6 fl (7.2-11.7); MONO # 0.6 K/uL (0.0-0.8); MONO % 10.6 % (0.0-10.0); NEUT # 2.3 K/uL (1.8-7.0); NEUT % 44.8 % (50.0-75.0); NRBC % 0.1 % (0.0-0.0); RBC 2.94 Mil/uL (3.80-5.20); WHITE BLOOD COUNT 5.2 K/uL (4.8-10.8)
[2017-11-05 07:55] LABS: ALB/GLOB RATIO 0.8 (1.0-2.1); ALBUMIN 2.3 g/dL (3.5-5.0)
[2017-11-05] MEDS: Lidocaine 5% Patch TD SCH (09:18)
[2017-11-05] MEDS: Insulin Regular 100 units/ml SC SCH ×4 (09:19→21:38)
[2017-11-05] MEDS: Silver Sulfadiazine 1% CREAM (50 gm) TOP SCH (09:19)
--- NOTE | 2017-11-05 12:45 | CP.PCM.PN ---
Subjective - Date & Time of Evaluation Date of Evaluation: 11/05/17 Time of Evaluation: 12:44 - Subjective Subjective: ID Note- Patient seen and examined today. pt. resting comfortably. denies any complaints. no new events. Objective - Vital Signs/Intake and Output Vital Signs (last 24 hours): Temp Pulse Resp BP Pulse Ox 97.5 F L 85 18 132/76 99 11/05/17 09:00 11/05/17 09:00 11/05/17 09:00 11/05/17 09:00 11/05/17 09:00 - Medications Medications: Current Medications Acetaminophen (Tylenol 325mg Tab) 650 mg PO Q4 PRN PRN Reason: Pain, moderate (4-7) Last Admin: 11/04/17 08:19 Dose: 650 mg Aspirin (Ecotrin) 81 mg PO DAILY [facility] Last Admin: 10/21/17 08:49 Dose: 81 mg Atorvastatin Calcium (Lipitor) 40 mg PO QPM [facility] Last Admin: 10/21/17 17:21 Dose: Not Given Dextrose (Glutose 15) 0 gm PO ONCE PRN; Protocol PRN Reason: Hypoglycemia Protocol Dextrose (Dextrose 50% Inj) 0 ml IV STAT PRN; Protocol PRN Reason: Hypoglycemia Protocol Epoetin Axel (Procrit) 10,000 unit SC MWF [facility] Last Admin: 11/03/17 08:46 Dose: 10,000 unit Ergocalciferol (Drisdol 50,000 Intl Units Cap) 1 cap PO Q7D [facility] Last Admin: 11/04/17 12:41 Dose: 1 cap Escitalopram Oxalate (Lexapro) 5 mg PO DAILY [facility] Last Admin: 11/05/17 09:19 Dose: 5 mg Fluconazole (Diflucan) 100 mg PO DAILY [facility] PRN Reason: Protocol Last Admin: 11/05/17 09:19 Dose: 100 mg Glucagon (Glucagen Diagnostic Kit) 0 mg IM STAT PRN; Protocol PRN Reason: Hypoglycemia Protocol Iron Sucrose 100 mg/ Sodium (Chloride) 105 mls @ 105 mls/hr IVPB DAILY [facility] Stop: 11/06/17 09:59 Last Admin: 11/04/17 09:07 Dose: 105 mls/hr Insulin Human Regular (Humulin R) 0 units SC ACHS [facility] PRN Reason: Protocol Last Admin: 11/05/17 12:30 Dose: 2 units Lidocaine (Lidoderm) 1 ea TD DAILY [facility] Last Admin: 11/05/17 09:18 Dose: 1 ea Nystatin (Nystop Topical Powder) 1 applic TOP TID [facility] Last Admin: 11/05/17 12:29 Dose: 1 applic Silver Sulfadiazine (Silvadene 1% 50 Gm) 1 applic TOP DAILY [facility] Last Admin: 11/05/17 09:19 Dose: 1 applic Vancomycin HCl (Vancocin (Oral/Rectal Use)) 125 mg PO Q6 [facility] PRN Reason: Protocol Last Admin: 11/05/17 09:20 Dose: 125 mg - Labs Labs: - Additional Findings Additional findings: - Constitutional Appears: awake , alert and in good spirits - Head Exam Head Exam: ATRAUMATIC - Respiratory Exam Additional comments: good breath sounds heard b/l - Cardiovascular Exam Cardiovascular Exam: RRR, +S1, +S2 - GI/Abdominal Exam Additional comments: soft, NT, ND, + BS - Extremities Exam Additional comments: 1+ LE edema B/L - Neurological Exam AAO x 3 today clay cath- less cloudy Laboratory Results - last 72 hr 11/02/17 11/02/17 11/02/17 07:00 07:00 08:11 WBC RBC Hgb Hct MCV MCH MCHC RDW Plt Count MPV Neut % (Auto) Lymph % (Auto) [place] % (Auto) Eos % (Auto) Baso % (Auto) Neut # (Auto) Lymph # (Auto) [place] # (Auto) Eos # (Auto) Baso # (Auto) Sodium Potassium Chloride Carbon Dioxide Anion Gap BUN Creatinine Est GFR ( Amer) Est GFR (Non-Af Amer) POC Glucose (mg/dL) Random Glucose Calcium Total Bilirubin AST ALT Alkaline Phosphatase Total Protein Albumin Globulin Albumin/Globulin Ratio Urine Color Urine Clarity Urine pH Ur Specific [place] Urine Protein Urine Glucose (UA) Urine Ketones Urine Blood Urine Nitrate Urine Bilirubin Urine Urobilinogen Ur Leukocyte Esterase Urine RBC (Auto) Urine WBC Clumps (Auto) Urine Microscopic WBC Urine Bacteria Urine Creatinine TNP Urine Microalbumin TNP Microalb/Creat Ratio Urine Opiates Screen Urine Methadone Screen Ur Barbiturates Screen Ur Phencyclidine Scrn Ur Amphetamines Screen U Benzodiazepines Scrn U Oth Cocaine Metabols U Cannabinoids Screen Complement C3 87.0 L Complement C4 29.1 C. difficile Ag & Toxin N 04/11/02/17 11/02/17 11:13 16:13 21:28 WBC RBC Hgb Hct MCV MCH MCHC RDW Plt Count MPV Neut % (Auto) Lymph % (Auto) [place] % (Auto) Eos % (Auto) Baso % (Auto) Neut # (Auto) Lymph # (Auto) [place] # (Auto) Eos # (Auto) Baso # (Auto) Sodium Potassium Chloride Carbon Dioxide Anion Gap BUN Creatinine Est GFR ( Amer) Est GFR (Non-Af Amer) POC Glucose (mg/dL) 202 H 166 H 150 H Random Glucose Calcium Total Bilirubin AST ALT Alkaline Phosphatase Total Protein Albumin Globulin Albumin/Globulin Ratio Urine Color Urine Clarity Urine pH Ur Specific [place] Urine Protein Urine Glucose (UA) Urine Ketones Urine Blood Urine Nitrate Urine Bilirubin Urine Urobilinogen Ur Leukocyte Esterase Urine RBC (Auto) Urine WBC Clumps (Auto) Urine Microscopic WBC Urine Bacteria Urine Creatinine Urine Microalbumin Microalb/Creat Ratio Urine Opiates Screen Urine Methadone Screen Ur Barbiturates Screen Ur Phencyclidine Scrn Ur Amphetamines Screen U Benzodiazepines Scrn U Oth Cocaine Metabols U Cannabinoids Screen Complement C3 Complement C4 C. difficile Ag & Toxin 11/03/17 11/03/17 11/03/17 04:45 06:00 10:45 WBC RBC Hgb Hct MCV MCH MCHC RDW Plt Count MPV Neut % (Auto) Lymph % (Auto) [place] % (Auto) Eos % (Auto) Baso % (Auto) Neut # (Auto) Lymph # (Auto) [place] # (Auto) Eos # (Auto) Baso # (Auto) Sodium 142 Potassium 4.6 Chloride 108 H Carbon Dioxide 22 Anion Gap 17 BUN 33 H Creatinine 2.7 H Est GFR ( Amer) 21 Est GFR (Non-Af Amer) 17 POC Glucose (mg/dL) 140 H 269 H Random Glucose 133 H Calcium 7.7 L Total Bilirubin 0.4 AST 34 ALT 26 Alkaline Phosphatase 67 Total Protein 4.9 L Albumin 2.2 L Globulin 2.8 Albumin/Globulin Ratio 0.8 L Urine Color Urine Clarity Urine pH Ur Specific [place] Urine Protein Urine Glucose (UA) Urine Ketones Urine Blood Urine Nitrate Urine Bilirubin Urine Urobilinogen Ur Leukocyte Esterase Urine RBC (Auto) Urine WBC Clumps (Auto) Urine Microscopic WBC Urine Bacteria Urine Creatinine Urine Microalbumin Microalb/Creat Ratio Urine Opiates Screen Urine Methadone Screen Ur Barbiturates Screen Ur Phencyclidine Scrn Ur Amphetamines Screen U Benzodiazepines Scrn U Oth Cocaine Metabols U Cannabinoids Screen Complement C3 Complement C4 C. difficile Ag & Toxin 11/03/17 11/03/17 11/04/17 16:07 21:22 05:08 WBC RBC Hgb Hct MCV MCH MCHC RDW Plt Count MPV Neut % (Auto) Lymph % (Auto) [place] % (Auto) Eos % (Auto) Baso % (Auto) Neut # (Auto) Lymph # (Auto) [place] # (Auto) Eos # (Auto) Baso # (Auto) Sodium Potassium Chloride Carbon Dioxide Anion Gap BUN Creatinine Est GFR ( Amer) Est GFR (Non-Af Amer) POC Glucose (mg/dL) 198 H 189 H 149 H Random Glucose Calcium Total Bilirubin AST ALT Alkaline Phosphatase Total Protein Albumin Globulin Albumin/Globulin Ratio Urine Color Urine Clarity Urine pH Ur Specific [place] Urine Protein Urine Glucose (UA) Urine Ketones Urine Blood Urine Nitrate Urine Bilirubin Urine Urobilinogen Ur Leukocyte Esterase Urine RBC (Auto) Urine WBC Clumps (Auto) Urine Microscopic WBC Urine Bacteria Urine Creatinine Urine Microalbumin Microalb/Creat Ratio Urine Opiates Screen Urine Methadone Screen Ur Barbiturates Screen Ur Phencyclidine Scrn Ur Amphetamines Screen U Benzodiazepines Scrn U Oth Cocaine Metabols U Cannabinoids Screen Complement C3 Complement C4 C. difficile Ag & Toxin 11/04/17 11/04/17 11/04/17 10:45 12:20 14:45 WBC RBC Hgb Hct MCV MCH MCHC RDW Plt Count MPV Neut % (Auto) Lymph % (Auto) [place] % (Auto) Eos % (Auto) Baso % (Auto) Neut # (Auto) Lymph # (Auto) [place] # (Auto) Eos # (Auto) Baso # (Auto) Sodium Potassium Chloride Carbon Dioxide Anion Gap BUN Creatinine Est GFR ( Amer) Est GFR (Non-Af Amer) POC Glucose (mg/dL) 178 H Random Glucose Calcium Total Bilirubin AST ALT Alkaline Phosphatase Total Protein Albumin Globulin Albumin/Globulin Ratio Urine Color Yellow Urine Clarity Turbid Urine pH 7.0 Ur Specific [place] 1.010 Urine Protein 100 Urine Glucose (UA) 150 Urine Ketones Negative Urine Blood Small Urine Nitrate Negative Urine Bilirubin Negative Urine Urobilinogen 0.2-1.0 Ur Leukocyte Esterase Large Urine RBC (Auto) 26 H Urine WBC Clumps (Auto) Many H Urine Microscopic WBC 1024 H Urine Bacteria Occ H Urine Creatinine Urine Microalbumin Microalb/Creat Ratio Urine Opiates Screen Negative Urine Methadone Screen Negative Ur Barbiturates Screen Negative Ur Phencyclidine Scrn Negative Ur Amphetamines Screen Negative U Benzodiazepines Scrn Negative U Oth Cocaine Metabols Negative U Cannabinoids Screen Negative Complement C3 Complement C4 C. difficile Ag & Toxin 11/04/17 11/04/17 11/05/17 16:36 21:46 05:29 WBC RBC Hgb Hct MCV MCH MCHC RDW Plt Count MPV Neut % (Auto) Lymph % (Auto) [place] % (Auto) Eos % (Auto) Baso % (Auto) Neut # (Auto) Lymph # (Auto) [place] # (Auto) Eos # (Auto) Baso # (Auto) Sodium Potassium Chloride Carbon Dioxide Anion Gap BUN Creatinine Est GFR ( Amer) Est GFR (Non-Af Amer) POC Glucose (mg/dL) 182 H 180 H 136 H Random Glucose Calcium Total Bilirubin AST ALT Alkaline Phosphatase Total Protein Albumin Globulin Albumin/Globulin Ratio Urine Color Urine Clarity Urine pH Ur Specific [place] Urine Protein Urine Glucose (UA) Urine Ketones Urine Blood Urine Nitrate Urine Bilirubin Urine Urobilinogen Ur Leukocyte Esterase Urine RBC (Auto) Urine WBC Clumps (Auto) Urine Microscopic WBC Urine Bacteria Urine Creatinine Urine Microalbumin Microalb/Creat Ratio Urine Opiates Screen Urine Methadone Screen Ur Barbiturates Screen Ur Phencyclidine Scrn Ur Amphetamines Screen U Benzodiazepines Scrn U Oth Cocaine Metabols U Cannabinoids Screen Complement C3 Complement C4 C. difficile Ag & Toxin 11/05/17 11/05/17 11/05/17 06:40 06:40 10:52 WBC 5.2 RBC 2.94 L Hgb 8.2 L Hct 26.3 L MCV 89.5 MCH 27.9 MCHC 31.2 L RDW 21.0 H Plt Count 270 MPV 7.6 Neut % (Auto) 44.8 L Lymph % (Auto) 38.5 [place] % (Auto) 10.6 H Eos % (Auto) 3.8 Baso % (Auto) 2.3 H Neut # (Auto) 2.3 Lymph # (Auto) 2.0 [place] # (Auto) 0.6 Eos # (Auto) 0.2 Baso # (Auto) 0.1 Sodium 146 Potassium 4.7 Chloride 110 H Carbon Dioxide 23 Anion Gap 18 BUN 30 H Creatinine 2.9 H Est GFR ( Amer) 19 Est GFR (Non-Af Amer) 16 POC Glucose (mg/dL) 210 H Random Glucose 139 H Calcium 8.0 L Total Bilirubin 0.4 AST 32 ALT 25 Alkaline Phosphatase 78 Total Protein 5.1 L Albumin 2.3 L Globulin 2.8 Albumin/Globulin Ratio 0.8 L Urine Color Urine Clarity Urine pH Ur Specific [place] Urine Protein Urine Glucose (UA) Urine Ketones Urine Blood Urine Nitrate Urine Bilirubin Urine Urobilinogen Ur Leukocyte Esterase Urine RBC (Auto) Urine WBC Clumps (Auto) Urine Microscopic WBC Urine Bacteria Urine Creatinine Urine Microalbumin Microalb/Creat Ratio Urine Opiates Screen Urine Methadone Screen Ur Barbiturates Screen Ur Phencyclidine Scrn Ur Amphetamines Screen U Benzodiazepines Scrn U Oth Cocaine Metabols U Cannabinoids Screen Complement C3 Complement C4 C. difficile Ag & Toxin Microbiology 10/27/17 20:07 Blood-Venous Blood Culture - Final NO GROWTH AFTER 5 DAYS 10/27/17 20:07 Blood-Venous Gram Stain - Final TEST NOT PERFORMED 10/27/17 20:07 Blood-Venous Blood Culture - Final NO GROWTH AFTER 5 DAYS 10/31/17 15:37 Nose MRSA Culture (Admit) - Final MRSA NOT DETECTED 10/27/17 09:10 Urine,Catheterized Urine Culture - Final No Growth (<1,000 CFU/ML) 10/21/17 14:48 Blood-Venous Blood Culture - Final NO GROWTH AFTER 5 DAYS 10/21/17 14:48 Blood-Venous Gram Stain - Final TEST NOT PERFORMED 10/21/17 15:40 Blood-Venous Blood Culture - Final NO GROWTH AFTER 5 DAYS 10/21/17 15:40 Blood-Venous Gram Stain - Final TEST NOT PERFORMED 10/20/17 20:00 Blood Blood Culture - Final NO GROWTH AFTER 5 DAYS 10/20/17 20:00 Blood Gram Stain - Final TEST NOT PERFORMED 10/20/17 19:46 Blood Blood Culture - Final NO GROWTH AFTER 5 DAYS 10/20/17 19:46 Blood Gram Stain - Final TEST NOT PERFORMED 10/23/17 11:40 Urine,Clay Urine Culture - Final Yeast Species 10/20/17 10:30 Naris MRSA Culture (Admit) - Final MRSA NOT DETECTED Assessment and Plan (1) Acute on chronic renal failure Status: Acute (2) Metabolic acidosis Status: Resolved (3) Septic shock Status: Acute (4) UTI (urinary tract infection) Status: Acute (5) Hyperkalemia Status: Resolved - Assessment and Plan (Free Text) Assessment: /P- 77 year old female with multiple medical conditions and noncomplaint including CKD stage 4, DM II, b/l ureteral stents ( repaced 09/2017) admitted with change in MS, lethargy was found to be hyperkalemic, metabolic acidosis, acute on chronic renal insufficiency and leukocytosis. clinically much improved. blood cx- neg x 4 urine cx- yeast leukocytosis has resolved. stool c.diff- pos x 2 third c.diff- neg metabolic acidosis has resolved c.diff colitis resolved. leukocytosis - resolved acute on chronic renal failure s/p emergent HD - now much improved, urinating well may need eventual permanent HD as per renal doctor fungurea- being treated plan- completed 12 days of IV meropenem. today day #14 of po vanco treatment for c.diff. d/c po vanco today. continue with fluconazole for fungurea day #11 continue fluconazole for 3 more days. advise to replace the clay. every 10 days if she needs to have clay in place. also patient will need to have her ureteral stents removed as it can be source for recurrent UTI's if patient needs the ureteral stents then it must be replaced frequently to avoid recurrent UTi's d/c IJ TLC today. no need to keep checking UA and urine cx please as pt. is asymptomatic and has indwelling ureteral stents and can be colonized. if patietn becomes febrile or has any signs of infection check UA and urine cx at that time . all above discussed with family practice resident who is covering for at length.
--- NOTE | 2017-11-05 12:56 | CP.PCM.PN ---
Subjective - Date & Time of Evaluation Date of Evaluation: 11/05/17 Time of Evaluation: 09:00 - Subjective Subjective: Pt. seen at bedside this morning alert and in no distress watching television. Overnight events reviewed. Pt. with no complaints. Pt. reports would like to go home and states " I need by sink fixed," and "I have my son to help me at home. " Objective - Vital Signs/Intake and Output Vital Signs (last 24 hours): Temp Pulse Resp BP Pulse Ox 97.5 F L 85 18 132/76 99 11/05/17 09:00 11/05/17 09:00 11/05/17 09:00 11/05/17 09:00 11/05/17 09:00 - Medications Medications: Current Medications Acetaminophen (Tylenol 325mg Tab) 650 mg PO Q4 PRN PRN Reason: Pain, moderate (4-7) Last Admin: 11/04/17 08:19 Dose: 650 mg Aspirin (Ecotrin) 81 mg PO DAILY [facility] Last Admin: 10/21/17 08:49 Dose: 81 mg Atorvastatin Calcium (Lipitor) 40 mg PO QPM [facility] Last Admin: 10/21/17 17:21 Dose: Not Given Dextrose (Glutose 15) 0 gm PO ONCE PRN; Protocol PRN Reason: Hypoglycemia Protocol Dextrose (Dextrose 50% Inj) 0 ml IV STAT PRN; Protocol PRN Reason: Hypoglycemia Protocol Epoetin Axel (Procrit) 10,000 unit SC MWF [facility] Last Admin: 11/03/17 08:46 Dose: 10,000 unit Ergocalciferol (Drisdol 50,000 Intl Units Cap) 1 cap PO Q7D [facility] Last Admin: 11/04/17 12:41 Dose: 1 cap Escitalopram Oxalate (Lexapro) 5 mg PO DAILY [facility] Last Admin: 11/05/17 09:19 Dose: 5 mg Fluconazole (Diflucan) 100 mg PO DAILY [facility] PRN Reason: Protocol Last Admin: 11/05/17 09:19 Dose: 100 mg Glucagon (Glucagen Diagnostic Kit) 0 mg IM STAT PRN; Protocol PRN Reason: Hypoglycemia Protocol Iron Sucrose 100 mg/ Sodium (Chloride) 105 mls @ 105 mls/hr IVPB DAILY [facility] Stop: 11/06/17 09:59 Last Admin: 11/05/17 12:53 Dose: 105 mls/hr Insulin Human Regular (Humulin R) 0 units SC ACHS [facility] PRN Reason: Protocol Last Admin: 11/05/17 12:30 Dose: 2 units Lidocaine (Lidoderm) 1 ea TD DAILY [facility] Last Admin: 11/05/17 09:18 Dose: 1 ea Nystatin (Nystop Topical Powder) 1 applic TOP TID [facility] Last Admin: 11/05/17 12:29 Dose: 1 applic Silver Sulfadiazine (Silvadene 1% 50 Gm) 1 applic TOP DAILY [facility] Last Admin: 11/05/17 09:19 Dose: 1 applic - Labs Labs: 11/05/17 06:40 11/05/17 06:40 PT 12.3 Seconds (9.8-13.1) 10/20/17 19:46 INR 1.1 (0.9-1.2) 10/20/17 19:46 APTT 33.2 Seconds (25.6-37.1) D 10/21/17 04:18 - Constitutional Appears: Non-toxic, No Acute Distress - Eye Exam Eye Exam: Normal appearance. absent: Scleral icterus - ENT Exam ENT Exam: Mucous Membranes Moist - Respiratory Exam Respiratory Exam: Clear to Ausculation Bilateral, NORMAL BREATHING PATTERN - Cardiovascular Exam Cardiovascular Exam: REGULAR RHYTHM, +S1, +S2 - GI/Abdominal Exam GI & Abdominal Exam: Soft. absent: Tenderness - Neurological Exam Neurological Exam: Alert, Oriented x3 - Psychiatric Exam Psychiatric exam: Anxious Assessment and Plan - Assessment and Plan (Free Text) Assessment: 77 y.o. female with hx of Depression, CKD not on HD, chronic ureteral stents, Type II DM, with recurrent admission to [facility] with recurrent sepsis admitted for septic shock now resolved awaiting safe discharge to home, long-term care facility, or involuntary admission to Psychiatry inpatient unit at [facility]. Need for safe discharge 1- Will attempt to have family meeting with social work present to determine safe discharge plan appropriate for patient Major Dperession 1- Will continue with lexapro 5mg po daily 2- Psych recommendations appreciated Multiple ulcers- Continue current management wound care on board 1- DTI present on Sacrum, stable 2- R foot: localized erythema (DTI) in plantar aspect of great toe and right heel resolving. 3- L foot: Stage 2 pressure ulcer noted on medial aspect of heel, stable. 4- Will replace Clay every 10 days to prevent UTI- Need for chronic clay because of chronic sacral ulcers and patient being chronically bed bound. CKD Stage V with ureteral stent- Chronic 1- Not on HD - Pt. offered Fistula placement and Dialysis but declines at this time 2- Continue to monitor 3- Nephrology and Urology recommendation appreciated Anemia of chronic disease 1- Will finish I.V. venofer 10 day course day 9 today C-diff colitis- Resolved 1- Repeat C.diff Toxin A&B negative 2- Will complete Vancomycin PO day 14 today Weakness/Deconditioing 1- Continue physical therapy which patient has been refusing to participate in will continue to encourage to participate Hypertension- Chronic 1- Well controlled Type II DM- Chronic 1- Continue current management DVT prophlaxis 1- Heparin 5000 units SC BID Code status 1- DNR
[2017-11-06] MEDS: Insulin Regular 100 units/ml SC SCH ×4 (06:56→22:08)
[2017-11-06] MEDS: Lidocaine 5% Patch TD SCH (08:49)
[2017-11-06] MEDS: Silver Sulfadiazine 1% CREAM (50 gm) TOP SCH (08:50)
[2017-11-06] MEDS: EPOETIN ALFA 10,000 UNIT/ML ML SC SCH (08:50)
--- NOTE | 2017-11-06 09:04 | CARD ---
APPROVED REPORT EKG Measurement Heart [id number] <Conclusion> Sinus rhythm with premature atrial complexes Nonspecific T wave abnormality Abnormal ECG
--- NOTE | 2017-11-06 14:15 | CP.PCM.PN ---
Subjective - Date & Time of Evaluation Date of Evaluation: 11/06/17 Time of Evaluation: 07:10 - Subjective Subjective: Patient seen and examined this morning during rounds, patient states feeling fine, no complaints at this time, afebrile, no nausea, vomiting, chest or abdominal pain. Objective - Vital Signs/Intake and Output Vital Signs (last 24 hours): Temp Pulse Resp BP Pulse Ox 98.4 F 74 18 131/78 98 11/06/17 09:00 11/06/17 09:00 11/06/17 09:00 11/06/17 09:00 11/06/17 09:00 - Medications Medications: Current Medications Acetaminophen (Tylenol 325mg Tab) 650 mg PO Q4 PRN PRN Reason: Pain, moderate (4-7) Last Admin: 11/04/17 08:19 Dose: 650 mg Aspirin (Ecotrin) 81 mg PO DAILY [facility] Last Admin: 10/21/17 08:49 Dose: 81 mg Atorvastatin Calcium (Lipitor) 40 mg PO QPM [facility] Last Admin: 10/21/17 17:21 Dose: Not Given Dextrose (Glutose 15) 0 gm PO ONCE PRN; Protocol PRN Reason: Hypoglycemia Protocol Dextrose (Dextrose 50% Inj) 0 ml IV STAT PRN; Protocol PRN Reason: Hypoglycemia Protocol Epoetin Axel (Procrit) 10,000 unit SC MWF [facility] Last Admin: 11/06/17 08:50 Dose: 10,000 unit Ergocalciferol (Drisdol 50,000 Intl Units Cap) 1 cap PO Q7D [facility] Last Admin: 11/04/17 12:41 Dose: 1 cap Escitalopram Oxalate (Lexapro) 5 mg PO DAILY [facility] Last Admin: 11/06/17 08:49 Dose: 5 mg Fluconazole (Diflucan) 100 mg PO DAILY [facility] PRN Reason: Protocol Last Admin: 11/06/17 08:49 Dose: 100 mg Glucagon (Glucagen Diagnostic Kit) 0 mg IM STAT PRN; Protocol PRN Reason: Hypoglycemia Protocol Heparin Sodium (Porcine) (Heparin) 5,000 units SC Q12 [facility] PRN Reason: Protocol Last Admin: 11/06/17 08:50 Dose: 5,000 units Insulin Human Regular (Humulin R) 0 units SC ACHS [facility] PRN Reason: Protocol Last Admin: 11/06/17 12:35 Dose: 1 units Lidocaine (Lidoderm) 1 ea TD DAILY [facility] Last Admin: 11/06/17 08:49 Dose: 1 ea Nystatin (Nystop Topical Powder) 1 applic TOP TID [facility] Last Admin: 11/06/17 12:34 Dose: 1 applic Silver Sulfadiazine (Silvadene 1% 50 Gm) 1 applic TOP DAILY [facility] Last Admin: 11/06/17 08:50 Dose: 1 applic - Labs Labs: 11/05/17 06:40 11/05/17 06:40 PT 12.3 Seconds (9.8-13.1) 10/20/17 19:46 INR 1.1 (0.9-1.2) 10/20/17 19:46 APTT 33.2 Seconds (25.6-37.1) D 10/21/17 04:18 - Constitutional Appears: No Acute Distress - Head Exam Head Exam: NORMAL INSPECTION - Respiratory Exam Respiratory Exam: Clear to Ausculation Bilateral, NORMAL BREATHING PATTERN - Cardiovascular Exam Cardiovascular Exam: REGULAR RHYTHM, +S1, +S2 - GI/Abdominal Exam GI & Abdominal Exam: Soft, Normal Bowel Sounds. absent: Distended, Tenderness - Extremities Exam Extremities Exam: absent: Calf Tenderness - Neurological Exam Neurological Exam: Alert, Awake, Oriented x3 Assessment and Plan - Assessment and Plan (Free Text) Assessment: 77 y.o. female with hx of Depression, CKD not on HD, chronic ureteral stents, Type II DM, with multiples admissions to [facility] with recurrent sepsis admitted for septic shock now resolved awaiting safe discharge to home. Plan: Need for safe discharge 1- Will attempt to have family meeting with social work present to determine safe discharge plan appropriate for patient Major Depression 1- c/w lexapro 5mg po daily 2- Psych recommendations appreciated Multiple ulcers- Continue current management wound care on board 1- DTI present on Sacrum, stable 2- R foot: localized erythema (DTI) in plantar aspect of great toe and right heel resolving. 3- L foot: Stage 2 pressure ulcer noted on medial aspect of heel, stable. 4- Need for chronic clay because of chronic sacral ulcers and patient being chronically bed bound. CKD Stage V with ureteral stent- Chronic 1- Not on HD - Pt. offered Fistula placement and Dialysis but declines at this time 2- Continue to monitor 3- Nephrology and Urology recommendation appreciated Anemia of chronic disease 1- I.V. venofer 10 day course completed C-diff colitis- Resolved 1- Repeat C.diff Toxin A&B negative 2- Vancomycin PO 14 today course completed Weakness/Deconditioing 1- Continue physical therapy which patient has been refusing to participate in will continue to encourage to participate Hypertension- Chronic 1- Well controlled Type II DM- Chronic 1- Continue current management DVT prophlaxis 1- Heparin 5000 units SC BID Code status 1- DNR
--- NOTE | 2017-11-06 19:40 | CP.PCM.PN ---
Objective - Vital Signs/Intake and Output Vital Signs (last 24 hours): Temp Pulse Resp BP Pulse Ox 97.8 F 77 20 129/80 98 11/06/17 17:00 11/06/17 17:16 11/06/17 17:00 11/06/17 17:00 11/06/17 17:16 - Medications Medications: Current Medications Acetaminophen (Tylenol 325mg Tab) 650 mg PO Q4 PRN PRN Reason: Pain, moderate (4-7) Last Admin: 11/04/17 08:19 Dose: 650 mg Aspirin (Ecotrin) 81 mg PO DAILY [facility] Last Admin: 10/21/17 08:49 Dose: 81 mg Atorvastatin Calcium (Lipitor) 40 mg PO QPM [facility] Last Admin: 10/21/17 17:21 Dose: Not Given Dextrose (Glutose 15) 0 gm PO ONCE PRN; Protocol PRN Reason: Hypoglycemia Protocol Dextrose (Dextrose 50% Inj) 0 ml IV STAT PRN; Protocol PRN Reason: Hypoglycemia Protocol Epoetin Axel (Procrit) 10,000 unit SC MWF [facility] Last Admin: 11/06/17 08:50 Dose: 10,000 unit Ergocalciferol (Drisdol 50,000 Intl Units Cap) 1 cap PO Q7D [facility] Last Admin: 11/04/17 12:41 Dose: 1 cap Escitalopram Oxalate (Lexapro) 5 mg PO DAILY [facility] Last Admin: 11/06/17 08:49 Dose: 5 mg Fluconazole (Diflucan) 100 mg PO DAILY [facility] PRN Reason: Protocol Last Admin: 11/06/17 08:49 Dose: 100 mg Glucagon (Glucagen Diagnostic Kit) 0 mg IM STAT PRN; Protocol PRN Reason: Hypoglycemia Protocol Heparin Sodium (Porcine) (Heparin) 5,000 units SC Q12 [facility] PRN Reason: Protocol Last Admin: 11/06/17 08:50 Dose: 5,000 units Insulin Human Regular (Humulin R) 0 units SC ACHS [facility] PRN Reason: Protocol Last Admin: 11/06/17 17:01 Dose: 2 units Lidocaine (Lidoderm) 1 ea TD DAILY [facility] Last Admin: 11/06/17 08:49 Dose: 1 ea Nystatin (Nystop Topical Powder) 1 applic TOP TID [facility] Last Admin: 11/06/17 17:02 Dose: 1 applic Silver Sulfadiazine (Silvadene 1% 50 Gm) 1 applic TOP DAILY [facility] Last Admin: 11/06/17 08:50 Dose: 1 applic - Labs Labs: 11/05/17 06:40 11/05/17 06:40 PT 12.3 Seconds (9.8-13.1) 10/20/17 19:46 INR 1.1 (0.9-1.2) 10/20/17 19:46 APTT 33.2 Seconds (25.6-37.1) D 10/21/17 04:18 Assessment and Plan (1) Acute renal failure Status: Acute (2) Chronic kidney disease (CKD), stage IV (severe) Status: Chronic (3) Metabolic acidosis Status: Resolved (4) Hyperkalemia Status: Resolved (5) Septic shock Status: Acute (6) Anemia Status: Acute (7) Hypertension Status: Chronic
--- NOTE | 2017-11-07 08:22 | CP.PCM.PN ---
Subjective - Date & Time of Evaluation Date of Evaluation: 11/07/17 Time of Evaluation: 07:30 - Subjective Subjective: Patient seen and examined at bedside during rounds this morning. Pt reports she is feeling fine and denies any acute complaints. Denies any chest pain, dyspnea , abdominal pain, headache, dizziness, fever or chills. Objective - Vital Signs/Intake and Output Vital Signs (last 24 hours): Temp Pulse Resp BP Pulse Ox 98.6 F 82 20 138/82 97 11/07/17 07:55 11/07/17 07:55 11/07/17 07:55 11/07/17 07:55 11/07/17 07:55 - Medications Medications: Current Medications Acetaminophen (Tylenol 325mg Tab) 650 mg PO Q4 PRN PRN Reason: Pain, moderate (4-7) Last Admin: 11/04/17 08:19 Dose: 650 mg Aspirin (Ecotrin) 81 mg PO DAILY [facility] Last Admin: 10/21/17 08:49 Dose: 81 mg Atorvastatin Calcium (Lipitor) 40 mg PO QPM [facility] Last Admin: 10/21/17 17:21 Dose: Not Given Dextrose (Glutose 15) 0 gm PO ONCE PRN; Protocol PRN Reason: Hypoglycemia Protocol Dextrose (Dextrose 50% Inj) 0 ml IV STAT PRN; Protocol PRN Reason: Hypoglycemia Protocol Epoetin Axel (Procrit) 10,000 unit SC MWF [facility] Last Admin: 11/06/17 08:50 Dose: 10,000 unit Ergocalciferol (Drisdol 50,000 Intl Units Cap) 1 cap PO Q7D [facility] Last Admin: 11/04/17 12:41 Dose: 1 cap Escitalopram Oxalate (Lexapro) 5 mg PO DAILY [facility] Last Admin: 11/06/17 08:49 Dose: 5 mg Fluconazole (Diflucan) 100 mg PO DAILY [facility] PRN Reason: Protocol Last Admin: 11/06/17 08:49 Dose: 100 mg Glucagon (Glucagen Diagnostic Kit) 0 mg IM STAT PRN; Protocol PRN Reason: Hypoglycemia Protocol Heparin Sodium (Porcine) (Heparin) 5,000 units SC Q12 [facility] PRN Reason: Protocol Last Admin: 11/06/17 21:59 Dose: 5,000 units Insulin Human Regular (Humulin R) 0 units SC ACHS [facility] PRN Reason: Protocol Last Admin: 11/06/17 22:08 Dose: Not Given Lidocaine (Lidoderm) 1 ea TD DAILY [facility] Last Admin: 11/06/17 08:49 Dose: 1 ea Nystatin (Nystop Topical Powder) 1 applic TOP TID [facility] Last Admin: 11/06/17 17:02 Dose: 1 applic Silver Sulfadiazine (Silvadene 1% 50 Gm) 1 applic TOP DAILY [facility] Last Admin: 11/06/17 08:50 Dose: 1 applic - Labs Labs: 11/05/17 06:40 11/05/17 06:40 PT 12.3 Seconds (9.8-13.1) 10/20/17 19:46 INR 1.1 (0.9-1.2) 10/20/17 19:46 APTT 33.2 Seconds (25.6-37.1) D 10/21/17 04:18 - Constitutional Appears: Non-toxic, No Acute Distress - Eye Exam Eye Exam: Normal appearance. absent: Scleral icterus - ENT Exam ENT Exam: Mucous Membranes Moist - Respiratory Exam Respiratory Exam: Clear to Ausculation Bilateral, NORMAL BREATHING PATTERN. absent: Rales, Rhonchi, Wheezes - Cardiovascular Exam Cardiovascular Exam: REGULAR RHYTHM, RRR, +S1, +S2 - GI/Abdominal Exam GI & Abdominal Exam: Soft, Normal Bowel Sounds. absent: Tenderness - Extremities Exam Extremities Exam: absent: Calf Tenderness - Neurological Exam Neurological Exam: Alert, Awake, Oriented x3 - Psychiatric Exam Psychiatric exam: Anxious Assessment and Plan - Assessment and Plan (Free Text) Assessment: Assessment: 77 yo female with hx of Depression, CKD not on HD, chronic ureteral stents, Type II DM, with recurrent admission to [facility] with recurrent sepsis admitted for septic shock now resolved awaiting safe discharge to home or long-term care facility. All the recurrent admissions to [facility] are due to pt's manifestation of depression and possible suicidal gestures. Plan: Need for safe discharge 1- Dr. Boswell spoke with pt's son and daughter, and they won't be able to take appropriate care of her mother. 2- SW consulted for senior living care facility placement. Major Depression 1- Continue with lexapro 5mg po daily 2- Psych recommendations appreciated 3- Pt has not been accepted to [facility] for involuntary commitment. Multiple ulcers- Continue current management wound care on board 1- DTI present on Sacrum, stable 2- R foot: localized erythema (DTI) in plantar aspect of great toe and right heel resolving. 3- L foot: Stage 2 pressure ulcer noted on medial aspect of heel, stable. 4- Will replace Clay every 10 days to prevent UTI- Need for chronic clay because of chronic sacral ulcers and patient being chronically bed bound. CKD Stage V with ureteral stent- Chronic 1- Not on HD - Pt. offered Fistula placement and Dialysis but declines at this time 2- Continue to monitor 3- Nephrology and Urology recommendation appreciated Anemia of chronic disease 1- Will finish I.V. venofer 10 day course day 10 today C-diff colitis- Resolved 1- Repeat C.diff Toxin A&B negative 2- Will complete Vancomycin PO day 14 today Weakness/Deconditioing 1- Continue physical therapy which patient has been refusing to participate in will continue to encourage to participate Hypertension- Chronic 1- Well controlled Type II DM- Chronic 1- Continue current management DVT prophlaxis 1- Heparin 5000 units SC BID Code status 1- DNR
[2017-11-07] MEDS: Lidocaine 5% Patch TD SCH (08:48)
[2017-11-07] MEDS: Insulin Regular 100 units/ml SC SCH ×4 (08:48→21:38)
[2017-11-07] MEDS: Silver Sulfadiazine 1% CREAM (50 gm) TOP SCH (08:50)
[2017-11-07 09:52] LABS: BASO # 0.1 K/uL (0.0-0.2); BASO % 2.3 % (0.0-2.0); EOS # 0.2 K/uL (0.0-0.7); EOS % 4.4 % (0.0-4.0); HEMOGLOBIN 8.8 g/dL (12.0-16.0); LYMPH # 1.7 K/uL (1.0-4.3); MEAN CELL VOLUME 90.5 fl (81.0-99.0); MEAN CORPUSCULAR HEMOGLOBIN 28.4 pg (27.0-31.0); MEAN CORPUSCULAR HGB CONC 31.4 g/dL (33.0-37.0); MEAN PLATELET VOLUME 8.1 fl (7.2-11.7); MONO # 0.5 K/uL (0.0-0.8); MONO % 9.9 % (0.0-10.0); NEUT # 2.1 K/uL (1.8-7.0); NEUT % 46.4 % (50.0-75.0); NRBC % 0.1 % (0.0-0.0); RBC 3.1 Mil/uL (3.80-5.20); RED CELL DISTRIBUTION WIDTH 20.8 % (11.5-14.5); WHITE BLOOD COUNT 4.6 K/uL (4.8-10.8)
[2017-11-07 10:03] LABS: CALCIUM 8.2 mg/dL (8.4-10.2)
--- NOTE | 2017-11-07 19:19 | CP.PCM.PN ---
Subjective - Date & Time of Evaluation Date of Evaluation: 11/07/17 Time of Evaluation: 13:00 - Subjective Subjective: Reports feeling well; ambulated from bed to chair with PT yesterday; tolerating diet; Objective - Vital Signs/Intake and Output Vital Signs (last 24 hours): Temp Pulse Resp BP Pulse Ox 98.6 F 81 20 118/79 99 11/07/17 15:51 11/07/17 15:51 11/07/17 15:51 11/07/17 15:51 11/07/17 15:51 Intake and Output: 11/07/17 11/08/17 18:59 06:59 Output Total 850 Balance -850 - Medications Medications: Current Medications Acetaminophen (Tylenol 325mg Tab) 650 mg PO Q4 PRN PRN Reason: Pain, moderate (4-7) Last Admin: 11/07/17 08:47 Dose: 650 mg Aspirin (Ecotrin) 81 mg PO DAILY [facility] Last Admin: 10/21/17 08:49 Dose: 81 mg Atorvastatin Calcium (Lipitor) 40 mg PO QPM [facility] Last Admin: 10/21/17 17:21 Dose: Not Given Dextrose (Glutose 15) 0 gm PO ONCE PRN; Protocol PRN Reason: Hypoglycemia Protocol Dextrose (Dextrose 50% Inj) 0 ml IV STAT PRN; Protocol PRN Reason: Hypoglycemia Protocol Epoetin Axel (Procrit) 10,000 unit SC MWF [facility] Last Admin: 11/06/17 08:50 Dose: 10,000 unit Ergocalciferol (Drisdol 50,000 Intl Units Cap) 1 cap PO Q7D [facility] Last Admin: 11/04/17 12:41 Dose: 1 cap Escitalopram Oxalate (Lexapro) 5 mg PO DAILY [facility] Last Admin: 11/07/17 08:50 Dose: 5 mg Fluconazole (Diflucan) 100 mg PO DAILY [facility] PRN Reason: Protocol Last Admin: 11/07/17 08:48 Dose: 100 mg Glucagon (Glucagen Diagnostic Kit) 0 mg IM STAT PRN; Protocol PRN Reason: Hypoglycemia Protocol Heparin Sodium (Porcine) (Heparin) 5,000 units SC Q12 [facility] PRN Reason: Protocol Last Admin: 11/07/17 08:49 Dose: 5,000 units Insulin Human Regular (Humulin R) 0 units SC ACHS [facility] PRN Reason: Protocol Last Admin: 11/07/17 16:07 Dose: 1 units Lidocaine (Lidoderm) 1 ea TD DAILY [facility] Last Admin: 11/07/17 08:48 Dose: 1 ea Nystatin (Nystop Topical Powder) 1 applic TOP TID [facility] Last Admin: 11/07/17 16:07 Dose: 1 applic Silver Sulfadiazine (Silvadene 1% 50 Gm) 1 applic TOP DAILY [facility] Last Admin: 11/07/17 08:50 Dose: 1 applic - Labs Labs: 11/07/17 09:45 11/07/17 09:45 PT 12.3 Seconds (9.8-13.1) 10/20/17 19:46 INR 1.1 (0.9-1.2) 10/20/17 19:46 APTT 33.2 Seconds (25.6-37.1) D 10/21/17 04:18 - Constitutional Appears: Non-toxic, No Acute Distress - Eye Exam Eye Exam: absent: Scleral icterus - ENT Exam ENT Exam: Mucous Membranes Moist - Respiratory Exam Respiratory Exam: Clear to Ausculation Bilateral. absent: Respiratory Distress - Cardiovascular Exam Cardiovascular Exam: RRR, +S1, +S2 - GI/Abdominal Exam GI & Abdominal Exam: Soft. absent: Distended, Tenderness - Exam Exam: absent: Bladder Distension - Extremities Exam Extremities Exam: Pedal Edema - Neurological Exam Neurological Exam: Alert, Awake - Psychiatric Exam Psychiatric exam: absent: Agitated - Skin Skin Exam: Warm. absent: Cyanosis Assessment and Plan (1) Acute renal failure Assessment & Plan: NINA on CKD IV, resolved; Status: Acute (2) Chronic kidney disease (CKD), stage IV (severe) Assessment & Plan: Relatively stable renal function; potassium at higher end of normal; stable volume status; still hesitant about AVF placement; -continue to avoid nephrotoxic agents; -low K diet, changing supplement to nepro Status: Chronic (3) Metabolic acidosis Status: Resolved (4) Hyperkalemia Status: Resolved (5) Septic shock Assessment & Plan: On fluconazole, no renal dose adjustment needed; Status: Resolved (6) Anemia Assessment & Plan: Hgb continues to improved but still well below goal (10-11g); s/p IV iron loading; continue EPO; Status: Acute (7) Hypertension Assessment & Plan: BP controlled off meds, continue to monitor; Status: Chronic
[2017-11-08 06:47] LABS: CALCIUM 8.2 mg/dL (8.4-10.2)
--- NOTE | 2017-11-08 07:47 | CP.PCM.PN ---
Subjective - Date & Time of Evaluation Date of Evaluation: 11/08/17 Time of Evaluation: 07:20 Objective - Vital Signs/Intake and Output Vital Signs (last 24 hours): Temp Pulse Resp BP Pulse Ox 98.3 F 70 18 127/76 98 11/07/17 23:48 11/07/17 23:48 11/07/17 23:48 11/07/17 23:48 11/07/17 23:48 Intake and Output: 11/08/17 11/08/17 06:59 18:59 Output Total 1150 Balance -1150 - Medications Medications: Current Medications Acetaminophen (Tylenol 325mg Tab) 650 mg PO Q4 PRN PRN Reason: Pain, moderate (4-7) Last Admin: 11/08/17 03:05 Dose: 650 mg Aspirin (Ecotrin) 81 mg PO DAILY [facility] Last Admin: 10/21/17 08:49 Dose: 81 mg Atorvastatin Calcium (Lipitor) 40 mg PO QPM [facility] Last Admin: 10/21/17 17:21 Dose: Not Given Dextrose (Glutose 15) 0 gm PO ONCE PRN; Protocol PRN Reason: Hypoglycemia Protocol Dextrose (Dextrose 50% Inj) 0 ml IV STAT PRN; Protocol PRN Reason: Hypoglycemia Protocol Epoetin Axel (Procrit) 10,000 unit SC MWF [facility] Last Admin: 11/06/17 08:50 Dose: 10,000 unit Ergocalciferol (Drisdol 50,000 Intl Units Cap) 1 cap PO Q7D [facility] Last Admin: 11/04/17 12:41 Dose: 1 cap Escitalopram Oxalate (Lexapro) 10 mg PO DAILY [facility] Fluconazole (Diflucan) 100 mg PO DAILY [facility] PRN Reason: Protocol Last Admin: 11/07/17 08:48 Dose: 100 mg Glucagon (Glucagen Diagnostic Kit) 0 mg IM STAT PRN; Protocol PRN Reason: Hypoglycemia Protocol Heparin Sodium (Porcine) (Heparin) 5,000 units SC Q12 [facility] PRN Reason: Protocol Last Admin: 11/07/17 21:28 Dose: 5,000 units Insulin Human Regular (Humulin R) 0 units SC ACHS [facility] PRN Reason: Protocol Last Admin: 11/07/17 21:38 Dose: Not Given Lidocaine (Lidoderm) 1 ea TD DAILY [facility] Last Admin: 11/07/17 08:48 Dose: 1 ea Nystatin (Nystop Topical Powder) 1 applic TOP TID [facility] Last Admin: 11/07/17 16:07 Dose: 1 applic Silver Sulfadiazine (Silvadene 1% 50 Gm) 1 applic TOP DAILY [facility] Last Admin: 11/07/17 08:50 Dose: 1 applic - Labs Labs: 11/07/17 09:45 11/08/17 05:50 PT 12.3 Seconds (9.8-13.1) 10/20/17 19:46 INR 1.1 (0.9-1.2) 10/20/17 19:46 APTT 33.2 Seconds (25.6-37.1) D 10/21/17 04:18
[2017-11-08 07:58] VITALS: BP 125/76; PULSE 72; RESP 20; TEMP 98.1; O2SAT 96
[2017-11-08] MEDS: Lidocaine 5% Patch TD SCH (08:54)
[2017-11-08] MEDS: Silver Sulfadiazine 1% CREAM (50 gm) TOP SCH (08:55)
[2017-11-08] MEDS: EPOETIN ALFA 10,000 UNIT/ML ML SC SCH (08:57)
[2017-11-08] MEDS: Insulin Regular 100 units/ml SC SCH ×2 (09:00→12:46)
--- NOTE | 2017-11-08 09:44 | CP.PCM.DIS ---
Provider - Provider Date of Admission: 10/20/17 20:49 Attending physician: Jose Juan Boswell MD Time Spent in preparation of Discharge (in minutes): 45 Diagnosis - Discharge Diagnosis (1) Acute respiratory failure with hypoxia Status: Resolved (2) Clostridium difficile diarrhea Status: Resolved (3) Hydronephrosis Status: Chronic (4) Hyperkalemia Status: Resolved (5) Acute on chronic renal failure Status: Resolved (6) Depression Status: Chronic (7) Yeast UTI Status: Resolved (8) Metabolic acidosis Status: Resolved Hospital Course - Lab Results Lab Results: Micro Results 10/27/17 20:07 Blood-Venous Blood Culture - Final NO GROWTH AFTER 5 DAYS 10/27/17 20:07 Blood-Venous Gram Stain - Final TEST NOT PERFORMED 10/27/17 20:07 Blood-Venous Blood Culture - Final NO GROWTH AFTER 5 DAYS 10/31/17 15:37 Nose MRSA Culture (Admit) - Final MRSA NOT DETECTED 10/27/17 09:10 Urine,Catheterized Urine Culture - Final No Growth (<1,000 CFU/ML) 10/21/17 14:48 Blood-Venous Blood Culture - Final NO GROWTH AFTER 5 DAYS 10/21/17 14:48 Blood-Venous Gram Stain - Final TEST NOT PERFORMED 10/21/17 15:40 Blood-Venous Blood Culture - Final NO GROWTH AFTER 5 DAYS 10/21/17 15:40 Blood-Venous Gram Stain - Final TEST NOT PERFORMED 10/20/17 20:00 Blood Blood Culture - Final NO GROWTH AFTER 5 DAYS 10/20/17 20:00 Blood Gram Stain - Final TEST NOT PERFORMED 10/20/17 19:46 Blood Blood Culture - Final NO GROWTH AFTER 5 DAYS 10/20/17 19:46 Blood Gram Stain - Final TEST NOT PERFORMED 10/23/17 11:40 Urine,Clay Urine Culture - Final Yeast Species 10/20/17 10:30 Naris MRSA Culture (Admit) - Final MRSA NOT DETECTED Most Recent Lab Values WBC 4.6 K/uL (4.8-10.8) L 11/07/17 09:45 RBC 3.10 Mil/uL (3.80-5.20) L 11/07/17 09:45 Hgb 8.8 g/dL (12.0-16.0) L 11/07/17 09:45 Hct 28.0 % (34.0-47.0) L 11/07/17 09:45 MCV 90.5 fl (81.0-99.0) 11/07/17 09:45 MCH 28.4 pg (27.0-31.0) 11/07/17 09:45 MCHC 31.4 g/dL (33.0-37.0) L 11/07/17 09:45 RDW 20.8 % (11.5-14.5) H 11/07/17 09:45 Plt Count 317 K/uL (130-400) 11/07/17 09:45 MPV 8.1 fl (7.2-11.7) 11/07/17 09:45 Neut % (Auto) 46.4 % (50.0-75.0) L 11/07/17 09:45 Lymph % (Auto) 37.0 % (20.0-40.0) 11/07/17 09:45 [place] % (Auto) 9.9 % (0.0-10.0) 11/07/17 09:45 Eos % (Auto) 4.4 % (0.0-4.0) H 11/07/17 09:45 Baso % (Auto) 2.3 % (0.0-2.0) H 11/07/17 09:45 Neut # (Auto) 2.1 K/uL (1.8-7.0) 11/07/17 09:45 Lymph # (Auto) 1.7 K/uL (1.0-4.3) 11/07/17 09:45 [place] # (Auto) 0.5 K/uL (0.0-0.8) 11/07/17 09:45 Eos # (Auto) 0.2 K/uL (0.0-0.7) 11/07/17 09:45 Baso # (Auto) 0.1 K/uL (0.0-0.2) 11/07/17 09:45 Neutrophils % (Manual) 88 % (42-75) H 10/22/17 06:00 Band Neutrophils % 2 % (0-2) 10/22/17 06:00 Lymphocytes % (Manual) 4 % (20-50) L 10/22/17 06:00 Reactive Lymphs % 2 % (0-0) H 10/22/17 06:00 Monocytes % (Manual) 4 % (0-10) 10/22/17 06:00 Toxic Granulation Present 10/20/17 19:46 Platelet Estimate Normal (NORMAL) 10/22/17 06:00 Plt Clumps, EDTA Present 10/21/17 04:18 Large Platelets Present 10/22/17 06:00 Polychromasia Slight 10/22/17 06:00 Hypochromasia (manual) Slight 10/22/17 06:00 Poikilocytosis (manual Slight 10/22/17 06:00 Anisocytosis (manual) Moderate 10/22/17 06:00 Microcytosis (manual) Moderate 10/22/17 06:00 Target Cells Slight 10/22/17 06:00 Tear Drop Cells Slight 10/21/17 04:18 Ovalocytes Slight 10/22/17 06:00 [place] Cells Slight 10/20/17 19:46 PT 12.3 Seconds (9.8-13.1) 10/20/17 19:46 INR 1.1 (0.9-1.2) 10/20/17 19:46 APTT 33.2 Seconds (25.6-37.1) D 10/21/17 04:18 pCO2 38 mm/Hg (35-45) 10/27/17 03:49 pO2 146 mm/Hg (80-100) H 10/27/17 03:49 HCO3 29.6 mmol/L (21-28) H 10/27/17 03:49 ABG pH 7.50 (7.35-7.45) H 10/27/17 03:49 ABG Total CO2 30.8 mmol/L (22-28) H 10/27/17 03:49 ABG O2 Saturation 99.1 % (95-98) H 10/27/17 03:49 ABG O2 Content 12.6 ML/dL (15-23) L 10/27/17 03:49 ABG Base Excess 6.0 mmol/L (-2.0-3.0) H 10/27/17 03:49 ABG Hemoglobin 9.0 g/dL (11.7-17.4) L 10/27/17 03:49 ABG Carboxyhemoglobin 0.8 % (0.5-1.5) 10/27/17 03:49 POC ABG HHb (Measured) 0.9 % (0.0-5.0) 10/27/17 03:49 ABG Methemoglobin 1.3 % (0.0-3.0) 10/27/17 03:49 ABG O2 Capacity 12.7 mL/dL (16-24) L 10/27/17 03:49 [place] Test Yes 10/27/17 03:49 ABG Potassium 3.2 mmol/L (3.6-5.2) L 10/24/17 04:35 VBG pH < 6.80 (7.32-7.43) L* 10/21/17 00:36 VBG pCO2 24 mmHg (40-60) L 10/21/17 00:36 VBG O2 Sat (Calc) 100.0 % (40-65) H 10/21/17 00:36 VBG Potassium 6.8 mmol/L (3.6-5.2) H* 10/21/17 00:36 A-a O2 Difference 56.0 mm/Hg 10/27/17 03:49 Hgb O2 Saturation 97.0 % (95.0-98.0) 10/27/17 03:49 Sodium 134.0 mmol/L (132-148) 10/24/17 04:35 Chloride 103.0 mmol/L (98-107) 10/24/17 04:35 Glucose 267 mg/dL (65-105) H 10/24/17 04:35 Lactate 2.0 mmol/L (0.7-2.1) 10/24/17 04:35 Vent Mode A/c 10/27/17 03:49 Mechanical Rate 12 10/27/17 03:49 FiO2 35.0 % 10/27/17 03:49 Tidal Volume 450 10/27/17 03:49 PEEP 5 10/27/17 03:49 Blood Gas Comments 100% mask 10/20/17 19:01 Crit Value Called To Dr wilber gonzalez 10/21/17 00:41 Crit Value Called By Ashok 10/21/17 00:41 Crit Value Read Back Y 10/21/17 00:41 Blood Gas Notified Time 48 10/21/17 00:41 Sodium 142 mmol/l (132-148) 11/08/17 05:50 Potassium 4.7 MMOL/L (3.6-5.0) 11/08/17 05:50 Chloride 109 mmol/L (98-107) H 11/08/17 05:50 Carbon Dioxide 19 mmol/L (22-30) L 11/08/17 05:50 Anion Gap 19 (10-20) 11/08/17 05:50 BUN 35 mg/dl (7-17) H 11/08/17 05:50 Creatinine 2.9 mg/dl (0.7-1.2) H 11/08/17 05:50 Est GFR ( Amer) 19 11/08/17 05:50 Est GFR (Non-Af Amer) 16 11/08/17 05:50 POC Glucose (mg/dL) 166 mg/dL (65-110) H 11/08/17 05:16 Random Glucose 111 mg/dL (65-105) H 11/08/17 05:50 Calcium 8.2 mg/dL (8.4-10.2) L 11/08/17 05:50 Phosphorus 3.6 mg/dl (2.5-4.5) 11/02/17 07:00 Magnesium 1.6 MG/DL (1.6-2.3) 10/24/17 04:30 Iron 19 ug/dL (37-170) L 10/27/17 07:04 TIBC 136 ug/dL (250-450) L 10/27/17 07:04 % Saturation 14 % (20-55) L 10/27/17 07:04 Ferritin 629.0 ng/Ml (11.1-264.0) H 10/27/17 07:04 Total Bilirubin 0.4 mg/dl (0.2-1.3) 11/05/17 06:40 AST 32 U/L (14-36) 11/05/17 06:40 ALT 25 U/L (9-52) 11/05/17 06:40 Alkaline Phosphatase 78 U/L (38-126) 11/05/17 06:40 Total Creatine Kinase 81 U/L (30-135) 10/21/17 15:30 Troponin I 0.1040 ng/mL (0.00-0.120) 10/21/17 04:18 NT-Pro-B Natriuret Pep 4650 pg/ml (0-900) H 10/20/17 19:46 Total Protein 5.1 G/DL (6.3-8.2) L 11/05/17 06:40 Albumin 2.3 g/dL (3.5-5.0) L 11/05/17 06:40 Globulin 2.8 gm/dL (2.2-3.9) 11/05/17 06:40 Albumin/Globulin Ratio 0.8 (1.0-2.1) L 11/05/17 06:40 25-OH Vitamin D Total < 12.8 NG/ML (30.0-100.0) L 10/27/17 07:04 Calcium (PTH Intact) 7.4 mg/dL (8.6-10.4) L 10/27/17 07:04 PTH w/Ion &Tot Calcium 45 pg/mL (14-64) 10/27/17 07:04 Arterial Blood Potassium 3.2 mmol/L (3.6-5.2) L 10/24/17 04:35 Venous Blood Potassium 6.8 mmol/L (3.6-5.2) H* 10/21/17 00:36 Urine Color Yellow (YELLOW) 11/04/17 12:20 Urine Clarity Turbid (Clear) 11/04/17 12:20 Urine pH 7.0 (5.0-8.0) 11/04/17 12:20 Ur Specific [place] 1.010 (1.003-1.030) 11/04/17 12:20 Urine Protein 100 mg/dL (NEGATIVE) 11/04/17 12:20 Urine Glucose (UA) 150 mg/dL (Normal) 11/04/17 12:20 Urine Ketones Negative mg/dL (NEGATIVE) 11/04/17 12:20 Urine Blood Small (NEGATIVE) 11/04/17 12:20 Urine Nitrate Negative (NEGATIVE) 11/04/17 12:20 Urine Bilirubin Negative (NEGATIVE) 11/04/17 12:20 Urine Urobilinogen 0.2-1.0 mg/dL (0.2-1.0) 11/04/17 12:20 Ur Leukocyte Esterase Large Emilio/uL (Negative) 11/04/17 12:20 Urine RBC (Auto) 26 /hpf (0-3) H 11/04/17 12:20 Urine WBC Clumps (Auto) Many /hpf (NONE) H 11/04/17 12:20 Urine Microscopic WBC 1024 /hpf (0-5) H 11/04/17 12:20 Urine Bacteria Occ (<OCC) H 11/04/17 12:20 Urine Creatinine TNP 11/02/17 07:00 Urine Microalbumin TNP 11/02/17 07:00 Microalb/Creat Ratio (<30) 11/02/17 07:00 Stool Occult Blood Negative (NEGATIVE) 10/28/17 17:12 Vancomycin Trough 25.4 ug/mL (5.0-10.0) H 10/24/17 04:30 Random Vancomycin 7.0 ug/mL 10/21/17 15:30 Urine Opiates Screen Negative (NEGATIVE) 11/04/17 14:45 Urine Methadone Screen Negative (NEGATIVE) 11/04/17 14:45 Ur Barbiturates Screen Negative (NEGATIVE) 11/04/17 14:45 Ur Phencyclidine Scrn Negative (NEGATIVE) 11/04/17 14:45 Ur Amphetamines Screen Negative (NEGATIVE) 11/04/17 14:45 U Benzodiazepines Scrn Negative (NEGATIVE) 11/04/17 14:45 U Oth Cocaine Metabols Negative (NEGATIVE) 11/04/17 14:45 U Cannabinoids Screen Negative (NEGATIVE) 11/04/17 14:45 Complement C3 87.0 mg/dL (88.0-165.0) L 11/02/17 07:00 Complement C4 29.1 mg/dL (14.0-44.0) 11/02/17 07:00 [place] Ii/Lambda Light Chain (()) 11/02/17 07:00 Free [place] Ii Light Chains 71.6 mg/L (3.3-19.4) H 11/02/17 07:00 Free [place] Light Chain 52.3 mg/L (5.7-26.3) H 11/02/17 07:00 Free [place] Ii/Lambda Ratio 1.37 (0.26-1.65) 11/02/17 07:00 C. difficile Tox B Gene Detected (Not Detected) H 10/27/17 18:00 C. difficile Ag & Toxin N (NEGATIVE) 11/02/17 08:11 Hep Bs Antigen Negative (NEGATIVE) 10/21/17 04:18 Hep Bs Antibody Negative (NEGATIVE) 10/21/17 04:18 Hep B Core IgM Ab Negative (NEGATIVE) 10/21/17 04:18 Hepatitis C Antibody Negative (NEGATIVE) 10/21/17 04:18 Blood Type A POSITIVE 10/22/17 20:15 Antibody Screen Negative 10/22/17 20:15 BBK History Checked Patient has bt 10/22/17 20:15 - Hospital Course Hospital Course: 77 y/o female with PMHx uncontrolled IDDM2, HTN, CKD4, Hydronephrosis s/p bilateral stenting, chronic kidney disease( no in Dialysis) who was brought to ER by EMS on 10/20/17, accompanied by her family for evaluation of altered mental status. As per patient's son. patient has had AMS for the past 2-3 days, constant and worsening, associated with a several day history of moderate to severe abdominal pain associated with NBNB emesis, and diarrheas. In ED, patient found to be tachypneic with AMS and was intubated; also with hyperkalemia and severe metabolic acidosis; Pt was intubated ED, +central line , +dialysis catheter, received 3L NS, +Pus from clay cath insertion attempt, CT abd + acute sigmoid colitis/diverticulitis, and hydroureteronephrosis. Per ID -Vanc, Merrem, Azithromycin. Pt was admitted to ICU until 10/31/17. Pt was successfully extubated on 10/31/17. Hospitalist, rock mason, ID, psychiatry and Urology were on board during tx. Pt received emergency HD for renal failure. Pt received 14 days of meropenem and vancomycin. Pt completed 14 days of fluconaozole for fungurea. Per psychiatry, pt was recommended to have voluntary psychiatry admission due to her depression and neglect of medical care. Pt refused. [facility] [place] but pt did not meet the criteria for involuntary admission. Patient seen and examined at bedside during rounds this morning. Pt reports she is feeling fine and denies any acute complaints. Denies any chest pain, dyspnea , abdominal pain, headache, dizziness, fever or chills. Pt is to be transferred to TCU for additional rehab services. Pt will continue her current medications in TCU. Discharge Exam - Head Exam Head Exam: NORMAL INSPECTION - Eye Exam Eye Exam: Normal appearance. absent: Scleral icterus - ENT Exam ENT Exam: Mucous Membranes Moist - Neck Exam Neck exam: Normal Inspection - Respiratory Exam Respiratory Exam: Clear to PA & Lateral, NORMAL BREATHING PATTERN. absent: Rales, Rhonchi - Cardiovascular Exam Cardiovascular Exam: REGULAR RHYTHM, +S1, +S2 - GI/Abdominal Exam GI & Abdominal Exam: Normal Bowel Sounds, Soft. absent: Tenderness - Neurological Exam Neurological exam: Alert, Oriented x3 - Psychiatric Exam Psychiatric exam: Depressed Discharge Plan - Follow Up Plan Condition: GUARDED Disposition: REHAB FACILITY/REHAB UNIT Instructions: Sepsis, Adult (DC), Urinary Tract Infection in Women (DC), Renal Failure Diet (DC), Depression (DC) Referrals: Jose Juan Boswell MD [Family Provider] -
== END 2017-11-08 14:21 | DRG 698 ==
LOC: H.ER 18:16 → H.ERHOLD 20:49 → H.ICU/CCU 22:14 → H.TEL 10-31 12:11 → H.MEDSURG1 11-04 15:17
PROVIDERS: ADMIT Family Medicine; ATTEND Family Medicine
PROC: 0BH17EZ Insertion of Endotracheal Airway into Trachea, Via Natural or Artificial Opening (ICD-10-PCS; principal; 2017-10-20)
PROC: 5A1955Z Respiratory Ventilation, Greater than 96 Consecutive Hours (ICD-10-PCS; 2017-10-20)
PROC: 05HM33Z Insertion of Infusion Device into Right Internal Jugular Vein, Percutaneous Approach (ICD-10-PCS; 2017-10-20)
PROC: 06HN33Z Insertion of Infusion Device into Left Femoral Vein, Percutaneous Approach (ICD-10-PCS; 2017-10-31)
DX: T83.592A Infection and inflammatory reaction due to indwelling ureteral stent, initial encounter (principal); A41.9 Sepsis, unspecified organism; R65.21 Severe sepsis with septic shock; J96.01 Acute respiratory failure with hypoxia; N17.0 Acute kidney failure with tubular necrosis; G93.41 Metabolic encephalopathy; E87.2 Acidosis; N13.6 Pyonephrosis; F33.2 Major depressive disorder, recurrent severe without psychotic features; K57.92 Diverticulitis of intestine, part unspecified, without perforation or abscess without bleeding; A04.72 Enterocolitis due to Clostridium difficile, not specified as recurrent; I47.1 Supraventricular tachycardia; B37.49 Other urogenital candidiasis; N18.5 Chronic kidney disease, stage 5; I12.0 Hypertensive chronic kidney disease with stage 5 chronic kidney disease or end stage renal disease; R45.851 Suicidal ideations; E87.5 Hyperkalemia; E11.22 Type 2 diabetes mellitus with diabetic chronic kidney disease; Z74.01 Bed confinement status; Z91.14 Patient's other noncompliance with medication regimen; F41.9 Anxiety disorder, unspecified; M19.90 Unspecified osteoarthritis, unspecified site; Z79.4 Long term (current) use of insulin; E11.65 Type 2 diabetes mellitus with hyperglycemia; J44.9 Chronic obstructive pulmonary disease, unspecified; Z66 Do not resuscitate; L89.622 Pressure ulcer of left heel, stage 2; E78.00 Pure hypercholesterolemia, unspecified; I48.91 Unspecified atrial fibrillation; Y73.2 Prosthetic and other implants, materials and accessory gastroenterology and urology devices associated with adverse incidents; Y84.6 Urinary catheterization as the cause of abnormal reaction of the patient, or of later complication, without mention of misadventure at the time of the procedure; E86.1 Hypovolemia; E87.6 Hypokalemia; D63.8 Anemia in other chronic diseases classified elsewhere

== ENCOUNTER 2017-11-08 14:37 | Inpatient (IN) | payer OTHER ==
[2017-11-08 14:58] VITALS: BMI 24.0
[2017-11-08] MEDS: Ergocalciferol 50,000 Intl Units Cap PO SCH (17:46)
[2017-11-08] MEDS: Insulin Regular 100 units/ml SC SCH (21:31)
[2017-11-09] MEDS: Insulin Regular 100 units/ml SC SCH ×4 (06:33→21:37)
--- NOTE | 2017-11-09 07:08 | CP.PCM.HP ---
<Sultan Jerry - Last Filed: 11/09/17 12:26> History of Present Illness - History of Present Illness History of Present Illness: 77 y/o female with PMHx uncontrolled IDDM2, HTN, CKD4, hydronephrosis s/p stent placement, depression admitted to TCU for physical therapy after admission to ICU on 10/20/17 for AMA, sepsis,acute on chronic renal failure requiring emergent HD, acidosis, and hyperkalemia. Pt was admitted to ICU until 10/31/17. Pt was successfully extubated on 10/31/17. Hospitalist, batcher operator, ID, psychiatry and Urology were on board during tx. Pt received emergency HD for renal failure. Pt received 14 days of meropenem and vancomycin. Pt completed 14 days of fluconaozole for fungurea. Today in TCU, Pt denies any new complaints. Denies any chest pain, dypsnea, GI or complaints.Denies any fever or chills. Pt is eating and drinking normally. Reports normal BM. pt is participating in physical therapy. PMD: Osmany, pt denies any follow up since prior d/c, [place] (Uro), Rosemarie ( nephro) Psurghx: B/L Renal stenting (05/2017), tonsillectomy, left wrist ORIF ALL: NKDA LMP: >20 years ago SocialHx: denies ETOH/tobacco/drug abuse, lives at home in [place] with son FamilyHx: unknown family hx Next of Kin: son, Ede Reza, [phone] Code Status: DNI/DNR Present on Admission - Present on Admission Any Indicators Present on Admission: Yes Review of Systems - Constitutional Constitutional: absent: Chills, Fever - EENT Eyes: absent: Blurred Vision, Change in Vision - Cardiovascular Cardiovascular: absent: Chest Pain, Dyspnea - Respiratory Respiratory: absent: Cough, Dyspnea - Gastrointestinal Gastrointestinal: absent: Abdominal Pain, Constipation, Diarrhea, Nausea, Vomiting - Genitourinary Genitourinary: absent: Dysuria, Hematuria - Musculoskeletal Musculoskeletal: Muscle Weakness (s/p intubation and extubation recently) - Integumentary Integumentary: absent: Rash - Neurological Neurological: absent: Dizziness, Headaches - Psychiatric Psychiatric: Depression Past Patient History - Infectious Disease Hx of Infectious Diseases: None - Past Medical History & Family History Past Medical History?: Yes - Past Social History Smoking Status: Never Smoked - CARDIAC Hx Hypercholesterolemia: Yes Hx Hypertension: Yes - PULMONARY Hx Chronic Obstructive Pulmonary Disease (COPD): Yes Hx Pneumonia: Yes - NEUROLOGICAL Hx Neurological Disorder: No - HEENT Hx HEENT Problems: No - RENAL Hx Chronic Kidney Disease: Yes - ENDOCRINE/METABOLIC Hx Endocrine Disorders: Yes Hx Diabetes Mellitus Type 2: Yes - HEMATOLOGICAL/ONCOLOGICAL Hx Blood Disorders: No - INTEGUMENTARY Hx Dermatological Problems: No - MUSCULOSKELETAL/RHEUMATOLOGICAL Hx Arthritis: Yes Hx Falls: Yes - GASTROINTESTINAL Hx Gastrointestinal Disorders: No - GENITOURINARY/GYNECOLOGICAL Hx Genitourinary Disorders: Yes Hx Incontinence: Yes - PSYCHIATRIC Hx Anxiety: Yes Hx Depression: Yes - SURGICAL HISTORY Hx Tonsillectomy: Yes - ANESTHESIA Hx Anesthesia: Yes Hx Anesthesia Reactions: No Hx Malignant Hyperthermia: No Meds Allergies/Adverse Reactions: Allergies Allergy/AdvReac Type Severity Reaction Status Date / Time No Known Allergies Allergy Verified 05/08/17 21:15 Physical Exam - Constitutional Appears: No Acute Distress - Head Exam Head Exam: NORMAL INSPECTION - Eye Exam Eye Exam: Normal appearance. absent: Scleral icterus - ENT Exam ENT Exam: Mucous Membranes Moist - Neck Exam Neck exam: Positive for: Normal Inspection - Respiratory Exam Respiratory Exam: Clear to Auscultation Bilateral, NORMAL BREATHING PATTERN. absent: Rales, Rhonchi, Wheezes - Cardiovascular Exam Cardiovascular Exam: REGULAR RHYTHM, RRR, +S1, +S2 - GI/Abdominal Exam GI & Abdominal Exam: Normal Bowel Sounds, Soft. absent: Tenderness - Extremities Exam Extremities exam: Negative for: calf tenderness Additional comments: B/L tremor on hands - Neurological Exam Neurological exam: Alert, Oriented x3 - Psychiatric Exam Psychiatric exam: Anxious, Depressed Results - Vital Signs Recent Vital Signs: Last Vital Signs Temp 99.0 F 11/08/17 21:25 Pulse 74 11/08/17 21:25 Resp 20 11/08/17 21:25 BP 125/70 11/08/17 21:25 Pulse Ox 96 11/08/17 21:25 - Labs Labs: Laboratory Results - last 24 hr 11/08/17 11/08/17 17:06 21:14 POC Glucose (mg/dL) 113 H 229 H Assessment & Plan - Assessment and Plan (Free Text) Assessment: Assessment: 77 yo female with hx of depression, CKD not on HD, chronic ureteral stents, Type II DM, with recurrent admission to [facility] with recurrent sepsis admitted on 10/20/17 for septic shock now resolved and discharged to TCU for PT yesterday while awaiting for safe discharge to home. All the recurrent admissions to [facility] are due to pt's manifestation of depression and possible suicidal gestures. Plan: Weakness/Deconditioing 1- Continue physical therapy in TCU Need for safe discharge 1- Dr. Boswell spoke with pt's son and daughter, and they won't be able to take appropriate care of her mother. 2- SW consult requested for safe discharge. Major Depression 1- Continue with lexapro 10 mg po daily 2- Psych recommendations appreciated 3- [place] has not [place] [facility] [place]. Multiple ulcers- Continue current management wound care on board 1- DTI present on Sacrum, stable 2- R foot: localized erythema (DTI) in plantar aspect of great toe and right heel resolving. 3- L foot: Stage 2 pressure ulcer noted on medial aspect of heel, stable. 4- Will replace Clay every 10 days to prevent UTI- Need for chronic clay because of chronic sacral ulcers and patient being chronically bed bound. CKD Stage V with ureteral stent- Chronic 1- Not on HD - Pt. offered Fistula placement and Dialysis but declines at this time 2- Continue to monitor 3- Nephrology and Urology recommendation appreciated Anemia of chronic disease 1- Completed I.V. venofer 10 day course. 2- Monitor CBC C-diff colitis- Resolved 1- Repeat C.diff Toxin A&B negative 2- Will complete Vancomycin PO day 14 on 11/08/17. Hypertension- Chronic 1- Well controlled Type II DM- Chronic 1- Continue current management DVT prophlaxis 1- Heparin 5000 units SC BID Code status 1- DNR/DNI <Jose Juan Boswell - Last Filed: 11/10/17 07:02> Results - Vital Signs Recent Vital Signs: Last Vital Signs Temp 99.5 F 11/09/17 19:42 Pulse 80 11/09/17 19:42 Resp 20 11/09/17 19:42 BP 132/71 11/09/17 19:42 Pulse Ox 99 11/09/17 19:42 - Labs Labs: Laboratory Results - last 24 hr 11/09/17 11/09/17 11/09/17 05:22 11:00 15:57 POC Glucose (mg/dL) 145 H 228 H 233 H 11/09/17 11/10/17 20:52 05:56 POC Glucose (mg/dL) 134 H 157 H Attending/Attestation - Attestation I have personally seen and examined this patient.: Yes I have fully participated in the care of the patient.: Yes I have reviewed all pertinent clinical information: Yes
[2017-11-09] MEDS: Lidocaine 5% Patch TD SCH (09:01)
[2017-11-09] MEDS: Silver Sulfadiazine 1% Cream (20 gm) TOP SCH (09:02)
--- NOTE | 2017-11-09 12:02 | CP.PCM.CON ---
History of Present Illness - History of Present Illness History of Present Illness: ID Note- patient is a 77 year old female with multiple medical conditions and noncomplaint including CKD stage 4, DM II, b/l ureteral stents ( replaced 09/2017 ) admitted with change in MS, lethargy was found to be hyperkalemic, metabolic acidosis, acute on chronic renal insufficiency received emergent HD and leukocytosis was in ICU was intubated , on pressors then extubated and sepsis resolved . completed 12 days of IV meropenem and 14 days of oral vanco for c.diff diarrhea ( resolved) and completed 2 weeks of fluconazole for fungurea who is now transfererd to TCU for PT and rehab. pt. is clinically much improved. denies any complaints. Review of Systems - Review of Systems Review of Systems: ROS- denies any fever or chills, denies any chest pain,denies any sob, denies any cough, denies any abd. pain. Past Patient History - Infectious Disease Hx of Infectious Diseases: None - Past Medical History & Family History Past Medical History?: Yes - Past Social History Smoking Status: Never Smoked - CARDIAC Hx Hypercholesterolemia: Yes Hx Hypertension: Yes - PULMONARY Hx Chronic Obstructive Pulmonary Disease (COPD): Yes Hx Pneumonia: Yes - NEUROLOGICAL Hx Neurological Disorder: No - HEENT Hx HEENT Problems: No - RENAL Hx Chronic Kidney Disease: Yes - ENDOCRINE/METABOLIC Hx Endocrine Disorders: Yes Hx Diabetes Mellitus Type 2: Yes - HEMATOLOGICAL/ONCOLOGICAL Hx Blood Disorders: No - INTEGUMENTARY Hx Dermatological Problems: No - MUSCULOSKELETAL/RHEUMATOLOGICAL Hx Arthritis: Yes Hx Falls: Yes - GASTROINTESTINAL Hx Gastrointestinal Disorders: No - GENITOURINARY/GYNECOLOGICAL Hx Genitourinary Disorders: Yes Hx Incontinence: Yes - PSYCHIATRIC Hx Anxiety: Yes Hx Depression: Yes - SURGICAL HISTORY Hx Tonsillectomy: Yes - ANESTHESIA Hx Anesthesia: Yes Hx Anesthesia Reactions: No Hx Malignant Hyperthermia: No Meds Allergies/Adverse Reactions: Allergies Allergy/AdvReac Type Severity Reaction Status Date / Time No Known Allergies Allergy Verified 05/08/17 21:15 - Medications Medications: Current Medications Acetaminophen (Tylenol 325mg Tab) 650 mg PO Q4 PRN PRN Reason: Pain, Mild (1-3) Last Admin: 11/08/17 17:53 Dose: 650 mg Aspirin (Ecotrin) 81 mg PO DAILY [facility] Last Admin: 11/09/17 08:59 Dose: 81 mg Atorvastatin Calcium (Lipitor) 40 mg PO DAILY [facility] Last Admin: 11/09/17 09:00 Dose: 40 mg Epoetin Axel (Procrit) 10,000 unit SC MWF [facility] Ergocalciferol (Drisdol 50,000 Intl Units Cap) 1 cap PO Q7D [facility] Last Admin: 11/08/17 17:46 Dose: 1 cap Escitalopram Oxalate (Lexapro) 10 mg PO DAILY [facility] Last Admin: 11/09/17 09:00 Dose: 10 mg Heparin Sodium (Porcine) (Heparin) 5,000 units SC Q12 [facility] PRN Reason: Protocol Last Admin: 11/09/17 08:59 Dose: 5,000 units Insulin Human Regular (Humulin R) 0 units SC ACHS [facility] PRN Reason: Protocol Last Admin: 11/09/17 06:33 Dose: Not Given Lidocaine (Lidoderm) 1 ea TD DAILY [facility] Last Admin: 11/09/17 09:01 Dose: 1 ea Nystatin (Mycostatin Cream) 1 applic TOP TID [facility] Last Admin: 11/09/17 09:01 Dose: 1 applic Silver Sulfadiazine (Silvadene 1% 20 Gm) 1 ea TOP DAILY [facility] Last Admin: 11/09/17 09:02 Dose: 1 each Physical Exam - Additional Findings Additional findings: - Constitutional Appears: awake , alert and in good spirits - Head Exam Head Exam: ATRAUMATIC - Respiratory Exam Additional comments: good breath sounds heard b/l - Cardiovascular Exam Cardiovascular Exam: RRR, +S1, +S2 - GI/Abdominal Exam Additional comments: soft, NT, ND, + BS - Extremities Exam Additional comments: 1+ LE edema B/L - Neurological Exam AAO x 3 today clay cath- less cloudy Laboratory Results - last 72 hr 11/08/17 11/08/17 11/09/17 17:06 21:14 05:22 POC Glucose (mg/dL) 113 H 229 H 145 H Urine Color Urine Clarity Urine pH Ur Specific [place] Urine Protein Urine Glucose (UA) Urine Ketones Urine Blood Urine Nitrate Urine Bilirubin Urine Urobilinogen Ur Leukocyte Esterase Urine RBC (Auto) Urine WBC Clumps (Auto) Urine Microscopic WBC Ur Renal Epithelial Cell Urine Bacteria 11/09/17 11/09/17 11/09/17 11:00 15:57 20:52 POC Glucose (mg/dL) 228 H 233 H 134 H Urine Color Urine Clarity Urine pH Ur Specific [place] Urine Protein Urine Glucose (UA) Urine Ketones Urine Blood Urine Nitrate Urine Bilirubin Urine Urobilinogen Ur Leukocyte Esterase Urine RBC (Auto) Urine WBC Clumps (Auto) Urine Microscopic WBC Ur Renal Epithelial Cell Urine Bacteria 11/10/17 11/10/17 11/10/17 05:56 11:27 14:28 POC Glucose (mg/dL) 157 H 289 H Urine Color Yellow Urine Clarity Turbid Urine pH 7.0 Ur Specific [place] 1.012 Urine Protein 100 Urine Glucose (UA) 150 Urine Ketones Negative Urine Blood Moderate Urine Nitrate Negative Urine Bilirubin Negative Urine Urobilinogen 0.2-1.0 Ur Leukocyte Esterase Large Urine RBC (Auto) 90 H Urine WBC Clumps (Auto) Many H Urine Microscopic WBC 1058 H Ur Renal Epithelial Cell 2 Urine Bacteria Rare Microbiology 10/31/17 15:37 Nose MRSA Culture (Admit) - Final MRSA NOT DETECTED 10/27/17 20:07 Blood-Venous Blood Culture - Final NO GROWTH AFTER 5 DAYS 10/27/17 20:07 Blood-Venous Blood Culture - Final 10/27/17 20:07 Blood-Venous Gram Stain - Final NO GROWTH AFTER 5 DAYS TEST NOT PERFORMED 10/27/17 09:10 Urine,Catheterized Urine Culture - Final No Growth (<1,000 CFU/ML) 10/23/17 11:40 Urine,Clay Urine Culture - Final Yeast Species 10/21/17 15:40 Blood-Venous Blood Culture - Final 10/21/17 15:40 Blood-Venous Gram Stain - Final NO GROWTH AFTER 5 DAYS TEST NOT PERFORMED 10/21/17 14:48 Blood-Venous Blood Culture - Final 10/21/17 14:48 Blood-Venous Gram Stain - Final NO GROWTH AFTER 5 DAYS TEST NOT PERFORMED 10/20/17 20:00 Blood Blood Culture - Final 10/20/17 20:00 Blood Gram Stain - Final NO GROWTH AFTER 5 DAYS TEST NOT PERFORMED 10/20/17 19:46 Blood Blood Culture - Final 10/20/17 19:46 Blood Gram Stain - Final NO GROWTH AFTER 5 DAYS TEST NOT PERFORMED Results - Vital Signs Recent Vital Signs: Last Vital Signs Temp 99.0 F 11/08/17 21:25 Pulse 74 11/08/17 21:25 Resp 20 11/08/17 21:25 BP 125/70 11/08/17 21:25 Pulse Ox 96 11/08/17 21:25 - Labs Labs: Laboratory Results - last 24 hr 11/08/17 11/08/17 11/09/17 17:06 21:14 05:22 POC Glucose (mg/dL) 113 H 229 H 145 H 11/09/17 11:00 POC Glucose (mg/dL) 228 H Assessment & Plan (1) Acute on chronic renal failure Status: Acute - Assessment and Plan (Free Text) Assessment: /P- 77 year old female with multiple medical conditions and noncomplaint including CKD stage 4, DM II, b/l ureteral stents ( repaced 09/2017) admitted with change in MS, lethargy was found to be hyperkalemic, metabolic acidosis, acute on chronic renal insufficiency and leukocytosis. clinically much improved. blood cx- neg x 4 urine cx- yeast leukocytosis has resolved. stool c.diff- pos x 2 third c.diff- neg plan- completed 12 days of IV meropenem. completed 14 days of po vanco treatment for c.diff. completed 14 days of po fluconazole for fungurea. advise to change clay every 10 days if she needs to have clay in place. also patient will need to have her ureteral stents removed as it can be source for recurrent UTI's if patient needs the ureteral stents then it must be replaced frequently to avoid recurrent UTi's all above d/w family practice team covering for . Thank you for allowing me to take part in the care of this patient.
--- NOTE | 2017-11-09 21:59 | CON ---
NEPHROLOGY CONSULTATION DATE: HISTORY OF PRESENT ILLNESS: The patient is a 77-year-old female with past medical history of hypertension, diabetes, CKD stage IV with bilateral chronic hydronephrosis and bilateral ureteral stents (last changed in 09/2017) just discharged from [facility] after presenting with septic shock and acute renal failure; the patient required initiation of hemodialysis emergently, but was able to recover renal function back to her baseline and hence hemodialysis was discontinued after just three treatments; the patient discharged to TCU for rehab; Nephrology now being consulted for advanced CKD care. The patient currently feels well, still with Adams in place. Denies any nausea, vomiting, or diarrhea; had C. diff positive during last admission, completed course of p.o. vancomycin with repeat C. diff tox negative. The patient also was treated for septic shock with meropenem. Urine cultures were negative; however, cultures were drawn well after antibiotics were initiated due to inability to place the Adams. The only organism that grew was yeast for which the patient was placed on Diflucan, which she also completed. The patient has a history of depression and lack of medical followup. She was offered to have AV fistula placed in order to prepare for impending need for chronic hemodialysis; however, has been hesitant in this regards. PAST MEDICAL HISTORY: As above. Does not follow with any outpatient physicians or outpatient nephrology. FAMILY HISTORY: Unknown. SOCIAL HISTORY: Denies tobacco use. REVIEW OF SYSTEMS: CONSTITUTIONAL: No fevers or chills. HEENT: No difficulty swallowing. No sore throat. RESPIRATORY: No cough or difficulty breathing. CARDIOVASCULAR: No chest pain or palpitation. GASTROINTESTINAL: No nausea, vomiting, or diarrhea. GENITOURINARY: As per HPI. MUSCULOSKELETAL: No aches or pains reported. EXTREMITIES: Reports improvement of pedal edema. NEUROLOGIC: Reports some weakness in legs upon standing. PSYCHIATRIC: History of depression. SKIN: No pruritus reported. Has sacral unstageable ulcer per nursing staff. PHYSICAL EXAMINATION: VITAL SIGNS: Today; blood pressure of 110/66, heart rate of 76, respirations of 20, temperature of 97.9, and O2 saturation of 97% on room air. GENERAL: No distress. Conversing coherently in full sentences. HEENT: Moist mucous membranes and nonicteric. No cervical lymphadenopathy. RESPIRATORY: Lungs are clear to auscultation bilaterally. No rales or rhonchi. No wheezes. CARDIOVASCULAR: Heart sounds S1 and S2 normal. No murmurs. No gallops. No rubs. GASTROINTESTINAL: Abdomen is soft, nontender, and nondistended. GENITOURINARY: No bladder distention. Adams in place. EXTREMITIES: Mild pedal edema. SKIN: Warm. No cyanosis. NEUROLOGIC: Has tremor that is worsen by movement of hands. PSYCHIATRIC: Normal mood, not agitated. LABORATORY DATA: From yesterday CBC; WBC of 4.6, hemoglobin of 8.8, hematocrit of 28, and platelets of 317. Chemistry panel: Sodium of 142, potassium of 4.7, chloride of 109, bicarbonate of 19, BUN of 35, and creatinine of 2.9. Glucose of 111, calcium of 8.2, and albumin 2.3 from 11/05/2017. UA drawn on 11/04/2017 showed many WBC clumps and occasional bacteria. ASSESSMENT AND PLAN: 1. Acute kidney injury on chronic kidney disease IV. Acute renal failure due to acute tubular necrosis in the setting of septic shock has resolved; however, the patient is at risk for recurrent urinary tract infection sepsis and hence impending possibility of recurrent acute kidney injury exists; should monitor for signs of urinary tract infection and sepsis. Recommend to monitor renal function weekly. 2. Chronic kidney disease stage IV. The patient with proteinuric kidney disease that is multifactorial likely a component of diabetic nephropathy as well as chronic bilateral hydronephrosis, relatively stable renal function; stable volume status; does have mild metabolic acidosis. No indication for initiation of hemodialysis currently. No uremic signs or symptoms. Should continue to discuss placement of arteriovenous fistula for fdc planning of hemodialysis. Continue to avoid nephrotoxic agents or agents that will decrease GFR (phosphate enema, NSAIDs, certain antibiotics). 3. Anemia of chronic kidney disease, the patient is status post IV iron loading, has been on Epogen 10,000 units every Monday, Monday, and Monday since past 2 plus weeks; hemoglobin has improved, but still below target of 10 to 11 g. Continue current dose of Epogen. 4. Vitamin D deficiency, 25-hydroxy vitamin D level low has been on ergocalciferol since past 2 weeks; recommend to continue the same; should check PTH level later this month (was surprisingly not high). 5. Proteinuria. The patient with pronounced hypoalbuminemia; do not have quantitative proteinuria measurement; no other signs of nephrotic syndrome. We will obtain 24-hour urine collection for proteinuria quantification; mainly for prognostic purposes; otherwise, the patient at this late stage of chronic kidney disease is not a candidate for ). 6. Hypertension. The patient has been off antihypertensive agents and has had blood pressure well controlled. We will continue to monitor for now. Thank you for this referral. We will be following closely. Carl Garcia MD
[2017-11-10] MEDS: Insulin Regular 100 units/ml SC SCH ×4 (06:37→22:08)
--- NOTE | 2017-11-10 08:36 | CP.PCM.PN ---
<Sultan Jerry - Last Filed: 11/10/17 13:46> Subjective - Date & Time of Evaluation Date of Evaluation: 11/10/17 Time of Evaluation: 07:25 - Subjective Subjective: Patient seen and examined at bedside during rounds this morning. Pt reports no acute complaints and states she is "fine". Pt is eating and drinking normally. Has clay in place. Denies any chest pain, dyspnea, abdominal pain, headache, dizziness, fever or chills. Confirmed with patient, pt wants DNR/DNI. Objective - Vital Signs/Intake and Output Vital Signs (last 24 hours): Temp Pulse Resp BP Pulse Ox 99.5 F 80 20 132/71 99 11/09/17 19:42 11/09/17 19:42 11/09/17 19:42 11/09/17 19:42 11/09/17 19:42 Intake and Output: 11/10/17 11/10/17 06:59 18:59 Intake Total 400 Output Total 1400 Balance -1000 - Medications Medications: Current Medications Acetaminophen (Tylenol 325mg Tab) 650 mg PO Q4 PRN PRN Reason: Pain, Mild (1-3) Last Admin: 11/08/17 17:53 Dose: 650 mg Aspirin (Ecotrin) 81 mg PO DAILY [facility] Last Admin: 11/09/17 08:59 Dose: 81 mg Atorvastatin Calcium (Lipitor) 40 mg PO DAILY [facility] Last Admin: 11/09/17 09:00 Dose: 40 mg Dimethicone (Proshield Plus Skin Protectant) 1 applic TOP Q8 [facility] Epoetin Axel (Procrit) 10,000 unit SC MWF [facility] Ergocalciferol (Drisdol 50,000 Intl Units Cap) 1 cap PO Q7D [facility] Last Admin: 11/08/17 17:46 Dose: 1 cap Escitalopram Oxalate (Lexapro) 10 mg PO DAILY [facility] Last Admin: 11/09/17 09:00 Dose: 10 mg Heparin Sodium (Porcine) (Heparin) 5,000 units SC Q12 [facility] PRN Reason: Protocol Last Admin: 11/09/17 21:33 Dose: 5,000 units Insulin Human Regular (Humulin R) 0 units SC ACHS [facility] PRN Reason: Protocol Last Admin: 11/10/17 06:37 Dose: 1 unit Lidocaine (Lidoderm) 1 ea TD DAILY [facility] Last Admin: 11/09/17 09:01 Dose: 1 ea Nystatin (Mycostatin Cream) 1 applic TOP 0900,1700,2100 [facility] Last Admin: 11/09/17 21:37 Dose: 1 applic Silver Sulfadiazine (Silvadene 1% 20 Gm) 1 ea TOP DAILY [facility] Last Admin: 11/09/17 09:02 Dose: 1 each Sodium Bicarbonate (Sodium Bicarbonate Tab) 650 mg PO BID [facility] Last Admin: 11/09/17 16:58 Dose: 650 mg - Constitutional Appears: No Acute Distress - ENT Exam ENT Exam: Mucous Membranes Moist - Neck Exam Neck Exam: Normal Inspection - Respiratory Exam Respiratory Exam: Clear to Ausculation Bilateral, NORMAL BREATHING PATTERN. absent: Rales, Rhonchi, Wheezes - Cardiovascular Exam Cardiovascular Exam: REGULAR RHYTHM, RRR, +S1, +S2 - GI/Abdominal Exam GI & Abdominal Exam: Soft, Normal Bowel Sounds. absent: Tenderness - Extremities Exam Additional comments: 1.5 cm x1.5 cm right heel ulcer. No surrounding erythema or discharge seen. Has resting tremor on B/L hands. - Neurological Exam Neurological Exam: Alert, Awake, Oriented x3 - Psychiatric Exam Psychiatric exam: Anxious, Depressed Assessment and Plan - Assessment and Plan (Free Text) Assessment: Assessment: 77 yo female with hx of depression, CKD not on HD, chronic ureteral stents, Type II DM, with recurrent admission to [facility] with recurrent sepsis admitted on 10/20/17 for septic shock now resolved and discharged to TCU for PT while awaiting for safe discharge. All the recurrent admissions to [facility] are due to pt's manifestation of depression and possible suicidal gestures. Pt is medically cleared to be transferred for psychiatric care. Plan: Major Depression 1- Continue with lexapro 10 mg po daily 2- Psych recommendations appreciated 3- Pt has not been accepted to [facility] [place]. Pt is referred for re-screening for involuntary admission. Need for safe discharge 1- Dr. Boswell spoke with pt's son and daughter, and they won't be able to take appropriate care of her mother. 2- SW consult requested for safe discharge. Weakness/Deconditioing 1- Continue physical therapy in TCU Multiple ulcers- Continue current management wound care on board 1- DTI present on Sacrum, stable 2- R foot: localized erythema (DTI) in plantar aspect of great toe and right heel resolving. 3- L foot: Stage 2 pressure ulcer noted on medial aspect of heel, stable. 4- Will replace Clay every 10 days to prevent UTI- Need for chronic clay because of chronic sacral ulcers and patient being chronically bed bound 5-Podiatry consult appreciated. CKD Stage V with ureteral stent- Chronic 1- Not on HD - Pt. offered Fistula placement and Dialysis but declines at this time 2- Continue to monitor 3- Nephrology and Urology recommendation appreciated Anemia of chronic disease 1- Completed I.V. venofer 10 day course. 2- Monitor CBC C-diff colitis- Resolved 1- Repeat C.diff Toxin A&B negative 2- Will complete Vancomycin PO day 14 on 11/08/17. Hypertension- Chronic 1- Well controlled Type II DM- Chronic 1- Continue current management DVT prophlaxis 1- Heparin 5000 units SC BID Code status 1- DNR/DNI <Jose Juan Boswell - Last Filed: 11/13/17 06:56> Objective - Vital Signs/Intake and Output Vital Signs (last 24 hours): Temp Pulse Resp BP Pulse Ox 98.2 F 64 20 139/70 100 11/12/17 19:51 11/12/17 19:51 11/12/17 19:51 11/12/17 19:51 11/12/17 19:51 Intake and Output: 11/12/17 11/13/17 18:59 06:59 Intake Total 400 Output Total 950 1200 Balance -950 -800 - Medications Medications: Current Medications Acetaminophen (Tylenol 325mg Tab) 650 mg PO Q4 PRN PRN Reason: Pain, Mild (1-3) Last Admin: 11/12/17 12:13 Dose: 650 mg Aspirin (Ecotrin) 81 mg PO DAILY [facility] Last Admin: 11/12/17 08:20 Dose: 81 mg Atorvastatin Calcium (Lipitor) 40 mg PO DAILY@2100 [facility] Last Admin: 11/12/17 21:17 Dose: 40 mg Dimethicone (Proshield Plus Skin Protectant) 1 applic TOP Q8 [facility] Last Admin: 11/13/17 03:00 Dose: 1 applic Ergocalciferol (Drisdol 50,000 Intl Units Cap) 1 cap PO Q7D [facility] Last Admin: 11/08/17 17:46 Dose: 1 cap Escitalopram Oxalate (Lexapro) 10 mg PO DAILY [facility] Last Admin: 11/12/17 08:20 Dose: 10 mg Heparin Sodium (Porcine) (Heparin) 5,000 units SC Q12 [facility] PRN Reason: Protocol Last Admin: 11/12/17 21:16 Dose: 5,000 units Insulin Human Regular (Humulin R) 0 units SC ACHS [facility] PRN Reason: Protocol Last Admin: 11/13/17 06:52 Dose: 1 unit Lidocaine (Lidoderm) 1 ea TD DAILY [facility] Last Admin: 11/12/17 08:20 Dose: 1 ea Nystatin (Mycostatin Cream) 1 applic TOP 0900,1700,2100 [facility] Last Admin: 11/12/17 21:16 Dose: 1 applic Silver Sulfadiazine (Silvadene 1% 20 Gm) 1 ea TOP DAILY [facility] Last Admin: 11/12/17 08:22 Dose: 1 each Sodium Bicarbonate (Sodium Bicarbonate Tab) 650 mg PO BID [facility] Last Admin: 11/12/17 16:33 Dose: 650 mg - Labs Labs: 11/12/17 07:20 11/12/17 06:15 Attending/Attestation - Attestation I have personally seen and examined this patient.: Yes I have fully participated in the care of the patient.: Yes I have reviewed all pertinent clinical information, including history, physical exam and plan: Yes
[2017-11-10] MEDS ORDERED: EPOETIN ALFA 10,000 UNIT/ML ML SC SCH (09:00)
[2017-11-10] MEDS: Lidocaine 5% Patch TD SCH (09:11)
--- NOTE | 2017-11-10 09:15 | CP.PCM.CON ---
History of Present Illness - History of Present Illness History of Present Illness: follow up consult pt is 77 y/o female with PMHx uncontrolled IDDM2, HTN, CKD4, Hydronephrosis s/p bilateral stenting, chronic kidney disease( no in Dialysis) who was brought to ER by EMS, accompanied by her family for evaluation of altered mental status. As per patient's son. patient has had AMS for the past 2-3 days, consult requested for evaluation of capacity to make decision ,as pt has been neglecting her medical care and non compliant with her medications which resulted in her current clinical presentation pt also has history of depression, non compliant with psychotropic medications or follow up, pt on evaluation initially on admission noted to be tearfull and depressed, , neglecting her medical care due to her depression, reported having two daughters and two sons , refusing tristian give any contact information for collateral and on further questioning reported poor social support due to conflicts with her children , this adds to her depression which started four years ago after both her and mother pt on initial evaluation was guarded and evasive with poor eye contact tearful refusing admission to psychiatric unit for further stabilization recommended screening for involuntary admission but pt was declined by [facility] [place] staff requested re evaluation of pt as she is observed to be depressed and tearful, on evaluation in presence of physical therapist, pt was sad irritable requesting to go home needs a lot of encouragement to participate in physical therapy, pt continues to refuse admission to psychiatry, refusing tpo allow me to talk to children stating they are too busy when asked about non compliance with her medications, pt able to verbalize the reasons why she needs to take her medications, able to verbalize the risks and benefits of not taking her medications and also understands that her current health condition is because of purposefully neglecting the care she needs pt oriented to person place and time and at the current mental status does have the capacity to make decision Past Patient History - Infectious Disease Hx of Infectious Diseases: None - Past Medical History & Family History Past Medical History?: Yes - Past Social History Smoking Status: Never Smoked - CARDIAC Hx Hypercholesterolemia: Yes Hx Hypertension: Yes - PULMONARY Hx Chronic Obstructive Pulmonary Disease (COPD): Yes Hx Pneumonia: Yes - NEUROLOGICAL Hx Neurological Disorder: No - HEENT Hx HEENT Problems: No - RENAL Hx Chronic Kidney Disease: Yes - ENDOCRINE/METABOLIC Hx Endocrine Disorders: Yes Hx Diabetes Mellitus Type 2: Yes - HEMATOLOGICAL/ONCOLOGICAL Hx Blood Disorders: No - INTEGUMENTARY Hx Dermatological Problems: No - MUSCULOSKELETAL/RHEUMATOLOGICAL Hx Arthritis: Yes Hx Falls: Yes - GASTROINTESTINAL Hx Gastrointestinal Disorders: No - GENITOURINARY/GYNECOLOGICAL Hx Genitourinary Disorders: Yes Hx Incontinence: Yes - PSYCHIATRIC Hx Anxiety: Yes Hx Depression: Yes - SURGICAL HISTORY Hx Tonsillectomy: Yes - ANESTHESIA Hx Anesthesia: Yes Hx Anesthesia Reactions: No Hx Malignant Hyperthermia: No Meds Allergies/Adverse Reactions: Allergies Allergy/AdvReac Type Severity Reaction Status Date / Time No Known Allergies Allergy Verified 05/08/17 21:15 - Medications Medications: Current Medications Acetaminophen (Tylenol 325mg Tab) 650 mg PO Q4 PRN PRN Reason: Pain, Mild (1-3) Last Admin: 11/08/17 17:53 Dose: 650 mg Aspirin (Ecotrin) 81 mg PO DAILY [facility] Last Admin: 11/09/17 08:59 Dose: 81 mg Atorvastatin Calcium (Lipitor) 40 mg PO DAILY [facility] Last Admin: 11/09/17 09:00 Dose: 40 mg Epoetin Axel (Procrit) 10,000 unit SC MWF [facility] Ergocalciferol (Drisdol 50,000 Intl Units Cap) 1 cap PO Q7D [facility] Last Admin: 11/08/17 17:46 Dose: 1 cap Escitalopram Oxalate (Lexapro) 10 mg PO DAILY [facility] Last Admin: 11/09/17 09:00 Dose: 10 mg Heparin Sodium (Porcine) (Heparin) 5,000 units SC Q12 [facility] PRN Reason: Protocol Last Admin: 11/09/17 08:59 Dose: 5,000 units Insulin Human Regular (Humulin R) 0 units SC ACHS [facility] PRN Reason: Protocol Last Admin: 11/09/17 06:33 Dose: Not Given Lidocaine (Lidoderm) 1 ea TD DAILY [facility] Last Admin: 11/09/17 09:01 Dose: 1 ea Nystatin (Mycostatin Cream) 1 applic TOP TID [facility] Last Admin: 11/09/17 09:01 Dose: 1 applic Silver Sulfadiazine (Silvadene 1% 20 Gm) 1 ea TOP DAILY [facility] Last Admin: 11/09/17 09:02 Dose: 1 each Physical Exam - Psychiatric Exam Additional comments: pt seen in bed , depressed mood and affect tearful, poor eye contact , guarded and evasive , speech underproductive, thought form coherent , denied any current suicidal or homicidal ideations, denied perceptual disturbances, alert awake ox3 Results - Vital Signs Recent Vital Signs: Last Vital Signs Temp 99.0 F 11/08/17 21:25 Pulse 74 11/08/17 21:25 Resp 20 11/08/17 21:25 BP 125/70 11/08/17 21:25 Pulse Ox 96 11/08/17 21:25 - Labs Labs: Laboratory Results - last 24 hr 11/08/17 11/08/17 11/09/17 17:06 21:14 05:22 POC Glucose (mg/dL) 113 H 229 H 145 H 11/09/17 11:00 POC Glucose (mg/dL) 228 H Assessment & Plan - Assessment and Plan (Free Text) Assessment: major depression psychological condition affecting medical condition Plan: I will refer pt for screening again for involuntary admission to psychiatry as the patient is refusing voluntary admission it is my opinion that pt at current mental status is danger to self , this is her third admission due to medical decompensation for neglecting purposefully due to her depression her medical care
--- NOTE | 2017-11-10 10:27 | CP.PCM.CON ---
History of Present Illness - History of Present Illness History of Present Illness: Podiatry Consult note: Dr. Conley 77 year old female patient with PMHx of uncontrolled IDDM2, HTN, CKD4, hydronephrosis s/p stent placement, depression, Iron def anemia was seen and evaluated in TCU for left heel pressure ulcer on the right heel and deep tissue injury on the left heel. Patient reports that she was admitted to the hospital about 3 weeks ago for many reasons which began with her not being compliant with medications. Patient reports that she was in ICU prior to coming to TCU. Reports that she did not have a wound on her heel prior to coming to the hospital three weeks ago. Denies of having any pain in her feet today. Denies of having any recent F/N/V/C/SOB/CP/headache/diarrhea/SOB. No new pedal complains at this time. PMHx: uncontrolled IDDM2, HTN, CKD4, hydronephrosis s/p stent placement, depression, Iron def anemia PSHx: B/L Renal stenting (05/2017), tonsillectomy, left wrist ORIF Allergies: N.K.D.A SHx: Denies smoking, EtOH or illicit drug usage Review of Systems - Constitutional Constitutional: As Per HPI Past Patient History - Infectious Disease Hx of Infectious Diseases: None - Past Medical History & Family History Past Medical History?: Yes - Past Social History Smoking Status: Never Smoked - CARDIAC Hx Hypercholesterolemia: Yes Hx Hypertension: Yes - PULMONARY Hx Chronic Obstructive Pulmonary Disease (COPD): Yes Hx Pneumonia: Yes - NEUROLOGICAL Hx Neurological Disorder: No - HEENT Hx HEENT Problems: No - RENAL Hx Chronic Kidney Disease: Yes - ENDOCRINE/METABOLIC Hx Endocrine Disorders: Yes Hx Diabetes Mellitus Type 2: Yes - HEMATOLOGICAL/ONCOLOGICAL Hx Blood Disorders: No - INTEGUMENTARY Hx Dermatological Problems: No - MUSCULOSKELETAL/RHEUMATOLOGICAL Hx Arthritis: Yes Hx Falls: Yes - GASTROINTESTINAL Hx Gastrointestinal Disorders: No - GENITOURINARY/GYNECOLOGICAL Hx Genitourinary Disorders: Yes Hx Incontinence: Yes - PSYCHIATRIC Hx Anxiety: Yes Hx Depression: Yes - SURGICAL HISTORY Hx Tonsillectomy: Yes - ANESTHESIA Hx Anesthesia: Yes Hx Anesthesia Reactions: No Hx Malignant Hyperthermia: No Meds Allergies/Adverse Reactions: Allergies Allergy/AdvReac Type Severity Reaction Status Date / Time No Known Allergies Allergy Verified 10/30/17 21:15 - Medications Medications: Current Medications Acetaminophen (Tylenol 325mg Tab) 650 mg PO Q4 PRN PRN Reason: Pain, Mild (1-3) Last Admin: 11/08/17 17:53 Dose: 650 mg Aspirin (Ecotrin) 81 mg PO DAILY [facility] Last Admin: 11/10/17 09:11 Dose: 81 mg Atorvastatin Calcium (Lipitor) 40 mg PO DAILY@2100 [facility] Dimethicone (Proshield Plus Skin Protectant) 1 applic TOP Q8 [facility] Epoetin Axel (Procrit) 10,000 unit SC MWF [facility] Ergocalciferol (Drisdol 50,000 Intl Units Cap) 1 cap PO Q7D [facility] Last Admin: 11/08/17 17:46 Dose: 1 cap Escitalopram Oxalate (Lexapro) 10 mg PO DAILY [facility] Last Admin: 11/10/17 09:11 Dose: 10 mg Heparin Sodium (Porcine) (Heparin) 5,000 units SC Q12 [facility] PRN Reason: Protocol Last Admin: 11/10/17 09:10 Dose: 5,000 units Insulin Human Regular (Humulin R) 0 units SC ACHS [facility] PRN Reason: Protocol Last Admin: 11/10/17 06:37 Dose: 1 unit Lidocaine (Lidoderm) 1 ea TD DAILY [facility] Last Admin: 11/10/17 09:11 Dose: 1 ea Nystatin (Mycostatin Cream) 1 applic TOP 0900,1700,2100 [facility] Last Admin: 11/10/17 09:12 Dose: 1 applic Silver Sulfadiazine (Silvadene 1% 20 Gm) 1 ea TOP DAILY [facility] Last Admin: 11/09/17 09:02 Dose: 1 each Sodium Bicarbonate (Sodium Bicarbonate Tab) 650 mg PO BID [facility] Last Admin: 11/10/17 09:11 Dose: 650 mg Physical Exam - Constitutional Appears: Well, Non-toxic, No Acute Distress - Extremities Exam Additional comments: Bilateral LE focused exam: VASC: DP/PT pulses are palpable 1/4 B/L. Cap refill time: < 3 seconds to all digits. Skin temperature warm to cool from proximal to distal. no pitting or non -pitting edema noted to b/l LE DERM: wound measuring approx. 4.0 cm x 3.5 cm x <0.1 cm at posterior aspect of the right heel with sloughing superficial epidermal layer extending laterally, mild serous drainage noted with wound base fully grannular, mild jatin-wound maceration noted, no tunneling, no probe to bone, no malodor, no jatin-wound erythema, no clinical suspicion of infection; Deep tissue injury noted on the medial aspect of the 1st MTPJ on the right with hyperpigmented skin layer; deep tissue injury noted on the left posterior lateral heel as well as head of the 5th metatarsal, no clinical suspicion of active infection at any site NEURO: Epicritic and protective sensation mildly diminished ORTHO: no pain on palpation of the wound site - Neurological Exam Neurological exam: Alert, Oriented x3 - Psychiatric Exam Psychiatric exam: Normal Affect, Normal Mood Results - Vital Signs Recent Vital Signs: Last Vital Signs Temp 98.2 F 11/10/17 09:00 Pulse 79 11/10/17 09:00 Resp 20 11/10/17 09:00 BP 137/67 11/10/17 09:00 Pulse Ox 100 11/10/17 09:00 - Labs Labs: Laboratory Results - last 24 hr 11/09/17 11/09/17 11/09/17 05:22 11:00 15:57 POC Glucose (mg/dL) 145 H 228 H 233 H 11/09/17 11/10/17 20:52 05:56 POC Glucose (mg/dL) 134 H 157 H Assessment & Plan - Assessment and Plan (Free Text) Assessment: 77 year old female with PMHx of uncontrolled IDDM2, HTN, CKD4, hydronephrosis s/ p stent placement, depression, iron deficiency anemia was evaluated for 1). Right heel ulcer 2). multiple deep tissue injury all secondary to pressure/bed bound status Plan: Patient seen and evaluated at bedside Discussed plan with attending Dr. Conley Labs, vitals and charts reviewed - afebrile, WBC @ 4.6 as of 11/07 Right heel pressure ulcer appears non-infected at this time IV abx as per ID Ulcer cleaned with saline and dressing applied using Silvadene, ABD, 4x4, Kerlix Left heel DTI dressing using optifoam dressing Multipodus boots to be worn at all times while in bed Heel off loading shoes ordered - WBAT in the shoe during therapy Medical management as per primary team Thank you for the podiatry consult and allowing to take part in patient care Podiatry to follow patient while in-house - Date & Time Date: 11/10/17 Time: 10:41
[2017-11-10] MEDS: Proshield Plus GEL TOP SCH ×2 (10:39→16:43)
[2017-11-10] MEDS: Silver Sulfadiazine 1% Cream (20 gm) TOP SCH (10:40)
--- NOTE | 2017-11-10 12:59 | RAD ---
PROCEDURE: CHEST RADIOGRAPH, 1 VIEW HISTORY: SOB COMPARISON: Chest radiograph dated 10/30/2017. FINDINGS: LUNGS: Stable chronic prominence of the bilateral interstitial markings with superimposed pulmonary vascular congestion. Bibasilar atelectasis. PLEURA: Small left and trace right pleural effusions. No appreciable pneumothorax. CARDIOVASCULAR: Atherosclerotic aortic calcifications. Cardiomediastinal silhouette stably enlarged. OSSEOUS STRUCTURES: Unchanged. VISUALIZED UPPER ABDOMEN: Normal. OTHER FINDINGS: Right internal jugular access central venous catheter no longer present. IMPRESSION: Pulmonary vascular congestion with small left and trace right pleural effusions.
[2017-11-10 14:52] LABS: RENAL EPITHELIAL 2 /hpf (0-3); URINE BACTERIA RARE (<OCC); URINE BILIRUBIN NEGATIVE (NEGATIVE); URINE BLOOD MODERATE (NEGATIVE); URINE CLARITY TURBID (Clear); URINE COLOR YELLOW (YELLOW); URINE GLUCOSE (UA) 150 mg/dL (Normal); URINE LEUKOCYTE ESTERASE LARGE Leu/uL (Negative); URINE PROTEIN 100 mg/dL (NEGATIVE); URINE UROBILINOGEN 0.2-1.0 mg/dL (0.2-1.0); WBC CLUMPS MANY /hpf
[2017-11-11] MEDS: Proshield Plus GEL TOP SCH ×3 (01:30→17:22)
[2017-11-11] MEDS: Insulin Regular 100 units/ml SC SCH ×4 (07:30→21:18)
[2017-11-11] MEDS: Lidocaine 5% Patch TD SCH (08:31)
[2017-11-11] MEDS: Silver Sulfadiazine 1% Cream (20 gm) TOP SCH (08:34)
[2017-11-11 09:26] LABS: CREATININE, 24 HOUR URINE 0.99 g/24 h (0.63-2.50)
--- NOTE | 2017-11-11 14:52 | CP.PCM.PN ---
Subjective - Date & Time of Evaluation Date of Evaluation: 11/11/17 Time of Evaluation: 14:49 - Subjective Subjective: Podiatry Consult note: Dr. Conley 77 year old female patient was seen and evaluated in TCU for left heel pressure ulcer on the right heel and deep tissue injury on the left heel. Patient is AAOx3 and is in NAD. Denies of having any acute overnight events. Denies of any pain to her LE today. Denies of any recent F/N/V/C/SOB/CP/headache. No new pedal complains today. Objective - Vital Signs/Intake and Output Vital Signs (last 24 hours): Temp Pulse Resp BP Pulse Ox 97.7 F 70 20 137/79 99 11/11/17 08:12 11/11/17 08:12 11/11/17 08:12 11/11/17 08:12 11/11/17 08:12 Intake and Output: 11/11/17 11/11/17 06:59 18:59 Intake Total 300 Output Total 900 Balance -600 - Medications Medications: Current Medications Acetaminophen (Tylenol 325mg Tab) 650 mg PO Q4 PRN PRN Reason: Pain, Mild (1-3) Last Admin: 11/11/17 14:19 Dose: 650 mg Aspirin (Ecotrin) 81 mg PO DAILY [facility] Last Admin: 11/11/17 08:31 Dose: 81 mg Atorvastatin Calcium (Lipitor) 40 mg PO DAILY@2100 [facility] Last Admin: 11/10/17 21:45 Dose: 40 mg Dimethicone (Proshield Plus Skin Protectant) 1 applic TOP Q8 [facility] Last Admin: 11/11/17 08:32 Dose: 1 applic Epoetin Axel (Procrit) 10,000 unit SC MWF [facility] Last Admin: 11/10/17 10:38 Dose: 10,000 unit Ergocalciferol (Drisdol 50,000 Intl Units Cap) 1 cap PO Q7D [facility] Last Admin: 11/08/17 17:46 Dose: 1 cap Escitalopram Oxalate (Lexapro) 10 mg PO DAILY [facility] Last Admin: 11/11/17 08:31 Dose: 10 mg Heparin Sodium (Porcine) (Heparin) 5,000 units SC Q12 [facility] PRN Reason: Protocol Last Admin: 11/11/17 08:31 Dose: 5,000 units Insulin Human Regular (Humulin R) 0 units SC ACHS [facility] PRN Reason: Protocol Last Admin: 11/11/17 11:30 Dose: 3 unit Lidocaine (Lidoderm) 1 ea TD DAILY [facility] Last Admin: 11/11/17 08:31 Dose: 1 ea Nystatin (Mycostatin Cream) 1 applic TOP 0900,1700,2100 [facility] Last Admin: 11/11/17 08:33 Dose: 1 applic Silver Sulfadiazine (Silvadene 1% 20 Gm) 1 ea TOP DAILY [facility] Last Admin: 11/11/17 08:34 Dose: 1 each Sodium Bicarbonate (Sodium Bicarbonate Tab) 650 mg PO BID [facility] Last Admin: 11/11/17 08:31 Dose: 650 mg - Constitutional Appears: Well, Non-toxic, No Acute Distress - Extremities Exam Additional comments: Bilateral LE focused exam: VASC: DP/PT pulses are palpable 1/4 B/L. Cap refill time: < 3 seconds to all digits. Skin temperature warm to cool from proximal to distal. no pitting or non -pitting edema noted to b/l LE DERM: wound measuring approx. 4.0 cm x 3.5 cm x <0.1 cm at posterior aspect of the right heel with sloughing superficial epidermal layer extending laterally - the sloughing epidermal layer appears hyperpigmented due to DTI, mild serous drainage noted with wound base fully grannular, mild jatin-wound maceration noted , no tunneling, no probe to bone, no malodor, no jatin-wound erythema, no fluctuance, no clinical suspicion of infection; Deep tissue injury noted on the medial aspect of the 1st MTPJ on the right with hyperpigmented skin layer; deep tissue injury noted on the left posterior lateral heel as well as head of the 5th metatarsal, no clinical suspicion of active infection at any site NEURO: Epicritic and protective sensation mildly diminished ORTHO: no pain on palpation of the wound site - Neurological Exam Neurological Exam: Alert, Awake, Oriented x3 - Psychiatric Exam Psychiatric exam: Normal Affect, Normal Mood Assessment and Plan - Assessment and Plan (Free Text) Assessment: 77 year old female with PMHx of uncontrolled IDDM2, HTN, CKD4, hydronephrosis s/ p stent placement, depression, iron deficiency anemia was evaluated for 1). Right heel ulcer 2). multiple deep tissue injury all secondary to pressure/bed bound status Plan: Patient seen and evaluated at bedside Discussed plan with attending Dr. Conley Labs, vitals and charts reviewed - afebrile, WBC @ 4.6 as of 11/07 Right heel pressure ulcer appears non-infected at this time IV abx as per ID Ulcer cleaned with saline and dressing applied using Silvadene, ABD, 4x4, Kerlix Left heel DTI dressing using optifoam dressing Multipodus boots to be worn at all times while in bed Heel off loading shoes ordered - WBAT in the shoe during therapy Medical management as per primary team Podiatry to follow patient while in-house
[2017-11-12] MEDS: Proshield Plus GEL TOP SCH ×3 (01:30→16:34)
[2017-11-12] MEDS: Insulin Regular 100 units/ml SC SCH ×4 (06:52→21:12)
[2017-11-12 07:17] LABS: MEAN CORPUSCULAR HEMOGLOBIN 28.2 pg (27.0-31.0); MEAN CORPUSCULAR HGB CONC 30.4 g/dL (33.0-37.0); RBC 3.86 Mil/uL (3.80-5.20); RED CELL DISTRIBUTION WIDTH 19.8 % (11.5-14.5); WHITE BLOOD COUNT 6.1 K/uL (4.8-10.8)
[2017-11-12 07:24] LABS: HEMOGLOBIN 10.9 g/dL (12.0-16.0); MEAN CELL VOLUME 92.6 fl (81.0-99.0)
[2017-11-12 07:59] LABS: CALCIUM 8.5 mg/dL (8.4-10.2)
[2017-11-12] MEDS: Lidocaine 5% Patch TD SCH (08:20)
[2017-11-12] MEDS: Silver Sulfadiazine 1% Cream (20 gm) TOP SCH (08:22)
--- NOTE | 2017-11-12 15:41 | CP.PCM.PN ---
Subjective - Date & Time of Evaluation Date of Evaluation: 11/12/17 Time of Evaluation: 15:38 - Subjective Subjective: Podiatry Consult note: Dr. Conley 77 year old female patient was seen and evaluated in TCU for left heel pressure ulcer on the right heel and deep tissue injury on the left heel. Patient is AAOx3 and is in NAD. Denies of having any acute overnight events. Denies of any pain to her LE today. Reports that the nurse changed her dressing this morning. Denies of any recent F/N/V/C/SOB/CP/headache. No new pedal complains today. Objective - Vital Signs/Intake and Output Vital Signs (last 24 hours): Temp Pulse Resp BP Pulse Ox 98.2 F 65 20 128/76 98 11/12/17 15:37 11/12/17 15:37 11/12/17 15:37 11/12/17 15:37 11/12/17 15:37 Intake and Output: 11/12/17 11/12/17 06:59 18:59 Output Total 650 Balance -650 - Medications Medications: Current Medications Acetaminophen (Tylenol 325mg Tab) 650 mg PO Q4 PRN PRN Reason: Pain, Mild (1-3) Last Admin: 11/12/17 12:13 Dose: 650 mg Aspirin (Ecotrin) 81 mg PO DAILY [facility] Last Admin: 11/12/17 08:20 Dose: 81 mg Atorvastatin Calcium (Lipitor) 40 mg PO DAILY@2100 [facility] Last Admin: 11/11/17 21:19 Dose: 40 mg Dimethicone (Proshield Plus Skin Protectant) 1 applic TOP Q8 [facility] Last Admin: 11/12/17 08:21 Dose: 1 applic Ergocalciferol (Drisdol 50,000 Intl Units Cap) 1 cap PO Q7D [facility] Last Admin: 11/08/17 17:46 Dose: 1 cap Escitalopram Oxalate (Lexapro) 10 mg PO DAILY [facility] Last Admin: 11/12/17 08:20 Dose: 10 mg Heparin Sodium (Porcine) (Heparin) 5,000 units SC Q12 [facility] PRN Reason: Protocol Last Admin: 11/12/17 08:21 Dose: 5,000 units Insulin Human Regular (Humulin R) 0 units SC ACHS [facility] PRN Reason: Protocol Last Admin: 11/12/17 11:39 Dose: 3 unit Lidocaine (Lidoderm) 1 ea TD DAILY [facility] Last Admin: 11/12/17 08:20 Dose: 1 ea Nystatin (Mycostatin Cream) 1 applic TOP 0900,1700,2100 [facility] Last Admin: 11/12/17 08:22 Dose: 1 applic Silver Sulfadiazine (Silvadene 1% 20 Gm) 1 ea TOP DAILY [facility] Last Admin: 11/12/17 08:22 Dose: 1 each Sodium Bicarbonate (Sodium Bicarbonate Tab) 650 mg PO BID [facility] Last Admin: 11/12/17 08:20 Dose: 650 mg - Labs Labs: 11/12/17 07:20 11/12/17 06:15 - Constitutional Appears: Well, Non-toxic, No Acute Distress - Extremities Exam Additional comments: Dressing is clean, dry and intact with no strike through. Multipodus boots are intact - Neurological Exam Neurological Exam: Alert, Awake, Oriented x3 - Psychiatric Exam Psychiatric exam: Normal Affect, Normal Mood Assessment and Plan - Assessment and Plan (Free Text) Assessment: 77 year old female with PMHx of uncontrolled IDDM2, HTN, CKD4, hydronephrosis s/ p stent placement, depression, iron deficiency anemia was evaluated for 1). Right heel ulcer 2). multiple deep tissue injury all secondary to pressure/bed bound status Plan: Patient seen and evaluated at bedside Discussed plan with attending Dr. Conley Labs, vitals and charts reviewed - afebrile, WBC @ 6.1 Right heel pressure ulcer appears non-infected at this time IV abx as per ID Dressing on b/l LE remain c/d/i Multipodus boots to be worn at all times while in bed Heel off loading shoes ordered - WBAT in the shoe during therapy Medical management as per primary team Podiatry to follow patient while in-house
[2017-11-13] MEDS: Proshield Plus GEL TOP SCH ×3 (03:00→17:18)
[2017-11-13] MEDS: Insulin Regular 100 units/ml SC SCH ×4 (06:52→21:08)
[2017-11-13] MEDS: Lidocaine 5% Patch TD SCH (08:10)
[2017-11-13] MEDS: Silver Sulfadiazine 1% Cream (20 gm) TOP SCH (08:11)
--- NOTE | 2017-11-13 08:32 | CP.PCM.PN ---
<Sultan Jerry - Last Filed: 11/13/17 10:07> Subjective - Date & Time of Evaluation Date of Evaluation: 11/13/17 Time of Evaluation: 07:40 - Subjective Subjective: Patient seen and examined at bedside during rounds this morning. Pt reports no acute complaints and states she is "fine". Pt is eating and drinking normally. Reports she is doing better with PT. Denies any cough, chest pain, dyspnea, abdominal pain, headache, dizziness, fever or chills. Pt was re-evaluated by [facility] for involuntary admission over the weekend and she did not meet the criteria for involuntary admission. Objective - Vital Signs/Intake and Output Vital Signs (last 24 hours): Temp Pulse Resp BP Pulse Ox 97.7 F 62 20 143/73 98 11/13/17 07:50 11/13/17 07:50 11/13/17 07:50 11/13/17 07:50 11/13/17 07:50 Intake and Output: 11/13/17 11/13/17 06:59 18:59 Intake Total 400 Output Total 1200 Balance -800 - Medications Medications: Current Medications Acetaminophen (Tylenol 325mg Tab) 650 mg PO Q4 PRN PRN Reason: Pain, Mild (1-3) Last Admin: 11/12/17 12:13 Dose: 650 mg Aspirin (Ecotrin) 81 mg PO DAILY [facility] Last Admin: 11/13/17 08:09 Dose: 81 mg Atorvastatin Calcium (Lipitor) 40 mg PO DAILY@2100 [facility] Last Admin: 11/12/17 21:17 Dose: 40 mg Dimethicone (Proshield Plus Skin Protectant) 1 applic TOP Q8 [facility] Last Admin: 11/13/17 08:11 Dose: 1 applic Ergocalciferol (Drisdol 50,000 Intl Units Cap) 1 cap PO Q7D [facility] Last Admin: 11/08/17 17:46 Dose: 1 cap Escitalopram Oxalate (Lexapro) 10 mg PO DAILY [facility] Last Admin: 11/13/17 08:09 Dose: 10 mg Heparin Sodium (Porcine) (Heparin) 5,000 units SC Q12 [facility] PRN Reason: Protocol Last Admin: 11/13/17 08:09 Dose: 5,000 units Insulin Human Regular (Humulin R) 0 units SC ACHS [facility] PRN Reason: Protocol Last Admin: 11/13/17 06:52 Dose: 1 unit Lidocaine (Lidoderm) 1 ea TD DAILY [facility] Last Admin: 11/13/17 08:10 Dose: 1 ea Nystatin (Mycostatin Cream) 1 applic TOP 0900,1700,2100 [facility] Last Admin: 11/13/17 08:11 Dose: 1 applic Silver Sulfadiazine (Silvadene 1% 20 Gm) 1 ea TOP DAILY [facility] Last Admin: 11/13/17 08:11 Dose: 1 each Sodium Bicarbonate (Sodium Bicarbonate Tab) 650 mg PO BID [facility] Last Admin: 11/13/17 08:09 Dose: 650 mg Sodium Polystyrene Sulfonate (Kayexalate Susp) 15 gm PO ONCE ONE Stop: 11/13/17 08:29 - Labs Labs: 11/12/17 07:20 11/12/17 06:15 - Additional Findings Additional findings: - Constitutional Appears: No Acute Distress - ENT Exam ENT Exam: Mucous Membranes Moist - Neck Exam Neck Exam: Normal Inspection - Respiratory Exam Respiratory Exam: Clear to Ausculation Bilateral, NORMAL BREATHING PATTERN. absent: Rales, Rhonchi, Wheezes - Cardiovascular Exam Cardiovascular Exam: REGULAR RHYTHM, RRR, +S1, +S2 - GI/Abdominal Exam GI & Abdominal Exam: Soft, Normal Bowel Sounds. absent: Tenderness - Extremities Exam Additional comments: 1.5 cm x1.5 cm right heel ulcer. No surrounding erythema or discharge seen. Has resting tremor on B/L hands. - Neurological Exam Neurological Exam: Alert, Awake, Oriented x3 - Psychiatric Exam Psychiatric exam: Anxious, Depressed Assessment and Plan - Assessment and Plan (Free Text) Assessment: Assessment: 77 yo female with hx of depression, CKD not on HD, chronic ureteral stents, Type II DM, with recurrent admission to [facility] with recurrent sepsis admitted on 10/20/17 for septic shock now resolved and discharged to TCU for PT while awaiting for safe discharge. All the recurrent admissions to [facility] are due to pt's manifestation of depression and possible suicidal gestures. Pt is medically cleared to be transferred for psychiatric care. Plan: Major Depression 1- Continue with lexapro 10 mg po daily 2- Psych recommendations appreciated 3- Pt was re-screened over the weekend for involuntary admission but has not been accepted. Need for safe discharge 1- Dr. Boswell spoke with pt's son and daughter, and they won't be able to take appropriate care of her mother. 2- SW consult requested for safe discharge. Weakness/Deconditioing 1- Continue physical therapy in TCU Hyperkalemia: -K:5.1 on 11/12/17 -Asymptomatic -Keyexalate 15 mg po once -f/u BMP -Nephrology Dr. Garcia on board Multiple ulcers- Continue current management wound care on board 1- DTI present on Sacrum, stable 2- R foot: localized erythema (DTI) in plantar aspect of great toe and right heel resolving. 3- L foot: Stage 2 pressure ulcer noted on medial aspect of heel, stable. 4- Will replace Clay every 10 days to prevent UTI- Need for chronic clay because of chronic sacral ulcers and patient being chronically bed bound 5-Podiatry consult appreciated. CKD Stage V with ureteral stent- Chronic 1- Not on HD - Pt. offered Fistula placement and Dialysis but declines at this time 2- Continue to monitor 3- Nephrology and Urology recommendation appreciated Anemia of chronic disease 1- Completed I.V. venofer 10 day course. 2- Monitor CBC C-diff colitis- Resolved 1- Repeat C.diff Toxin A&B negative 2-Completed Vancomycin PO day 14 on 11/08/17. Hypertension- Chronic 1- Well controlled Type II DM- Chronic 1- Continue current management DVT prophlaxis 1- Heparin 5000 units SC BID Code status 1- DNR/DNI <Jose Juan Boswell A - Last Filed: 11/15/17 06:52> Objective - Vital Signs/Intake and Output Vital Signs (last 24 hours): Temp Pulse Resp BP Pulse Ox 98.1 F 74 20 128/77 99 11/14/17 21:10 11/14/17 21:10 11/14/17 21:10 11/14/17 21:10 11/14/17 21:10 - Medications Medications: Current Medications Acetaminophen (Tylenol 325mg Tab) 650 mg PO Q4 PRN PRN Reason: Pain, Mild (1-3) Last Admin: 11/14/17 16:28 Dose: 650 mg Aspirin (Ecotrin) 81 mg PO DAILY [facility] Last Admin: 11/14/17 08:14 Dose: 81 mg Atorvastatin Calcium (Lipitor) 40 mg PO DAILY@2100 [facility] Last Admin: 11/14/17 21:21 Dose: 40 mg Dimethicone (Proshield Plus Skin Protectant) 1 applic TOP Q8 [facility] Last Admin: 11/15/17 00:07 Dose: Not Given Ergocalciferol (Drisdol 50,000 Intl Units Cap) 1 cap PO Q7D [facility] Last Admin: 11/08/17 17:46 Dose: 1 cap Escitalopram Oxalate (Lexapro) 10 mg PO DAILY [facility] Last Admin: 11/14/17 08:13 Dose: 10 mg Heparin Sodium (Porcine) (Heparin) 5,000 units SC Q12 [facility] PRN Reason: Protocol Last Admin: 11/14/17 21:21 Dose: 5,000 units Insulin Human Regular (Humulin R) 0 units SC ACHS [facility] PRN Reason: Protocol Last Admin: 11/15/17 06:33 Dose: 2 units Lidocaine (Lidoderm) 1 ea TD DAILY [facility] Last Admin: 11/14/17 08:14 Dose: 1 ea Nystatin (Mycostatin Cream) 1 applic TOP 0900,1700,2100 [facility] Last Admin: 11/14/17 21:22 Dose: 1 applic Silver Sulfadiazine (Silvadene 1% 20 Gm) 1 ea TOP DAILY [facility] Last Admin: 11/14/17 08:22 Dose: 1 each Sodium Bicarbonate (Sodium Bicarbonate Tab) 650 mg PO BID [facility] Last Admin: 11/14/17 16:29 Dose: 650 mg - Labs Labs: 11/14/17 06:20 11/14/17 06:20 Attending/Attestation - Attestation I have personally seen and examined this patient.: Yes I have fully participated in the care of the patient.: Yes I have reviewed all pertinent clinical information, including history, physical exam and plan: Yes
[2017-11-13] MEDS ORDERED: Sod Polystyrene Sulf 15 gm/60 ml Susp PO ONE (08:45)
--- NOTE | 2017-11-13 09:50 | CP.PCM.PN ---
Subjective - Date & Time of Evaluation Date of Evaluation: 11/13/17 Time of Evaluation: 09:48 - Subjective Subjective: Podiatry Consult note: Dr. Conley 77 year old female patient was seen and evaluated in TCU for left heel pressure ulcer on the right heel and deep tissue injury on the left heel. Patient is AAOx3 and is in NAD. Denies any acute overnight events. Denies of any pain to her LE today. Reports that the nurse changed her dressing this morning. Denies any recent F/N/V/C/SOB/CP/headache. No new pedal complains today. Objective - Vital Signs/Intake and Output Vital Signs (last 24 hours): Temp Pulse Resp BP Pulse Ox 97.7 F 62 20 143/73 98 11/13/17 09:00 11/13/17 09:00 11/13/17 09:00 11/13/17 09:00 11/13/17 09:00 Intake and Output: 11/13/17 11/13/17 06:59 18:59 Intake Total 400 Output Total 1200 Balance -800 - Medications Medications: Current Medications Acetaminophen (Tylenol 325mg Tab) 650 mg PO Q4 PRN PRN Reason: Pain, Mild (1-3) Last Admin: 11/12/17 12:13 Dose: 650 mg Aspirin (Ecotrin) 81 mg PO DAILY [facility] Last Admin: 11/13/17 08:09 Dose: 81 mg Atorvastatin Calcium (Lipitor) 40 mg PO DAILY@2100 [facility] Last Admin: 11/12/17 21:17 Dose: 40 mg Dimethicone (Proshield Plus Skin Protectant) 1 applic TOP Q8 [facility] Last Admin: 11/13/17 08:11 Dose: 1 applic Ergocalciferol (Drisdol 50,000 Intl Units Cap) 1 cap PO Q7D [facility] Last Admin: 11/08/17 17:46 Dose: 1 cap Escitalopram Oxalate (Lexapro) 10 mg PO DAILY [facility] Last Admin: 11/13/17 08:09 Dose: 10 mg Heparin Sodium (Porcine) (Heparin) 5,000 units SC Q12 [facility] PRN Reason: Protocol Last Admin: 11/13/17 08:09 Dose: 5,000 units Insulin Human Regular (Humulin R) 0 units SC ACHS [facility] PRN Reason: Protocol Last Admin: 11/13/17 06:52 Dose: 1 unit Lidocaine (Lidoderm) 1 ea TD DAILY [facility] Last Admin: 11/13/17 08:10 Dose: 1 ea Nystatin (Mycostatin Cream) 1 applic TOP 0900,1700,2100 [facility] Last Admin: 11/13/17 08:11 Dose: 1 applic Silver Sulfadiazine (Silvadene 1% 20 Gm) 1 ea TOP DAILY [facility] Last Admin: 11/13/17 08:11 Dose: 1 each Sodium Bicarbonate (Sodium Bicarbonate Tab) 650 mg PO BID [facility] Last Admin: 11/13/17 08:09 Dose: 650 mg - Labs Labs: 11/12/17 07:20 11/12/17 06:15 - Constitutional Appears: Well, Non-toxic, No Acute Distress - Extremities Exam Additional comments: Bilateral LE focused exam: VASC: DP/PT pulses are palpable 1/4 B/L. Cap refill time: < 3 seconds to all digits. Skin temperature warm to cool from proximal to distal. no pitting or non -pitting edema noted to b/l LE DERM: wound measuring approx. 4.0 cm x 3.5 cm x <0.1 cm at posterior aspect of the right heel with sloughing superficial epidermal layer extending laterally - the sloughing epidermal layer appears hyperpigmented due to DTI, mild serous drainage noted with wound base fully granular, mild jatin-wound maceration noted , no tunneling, no probe to bone, no malodor, no jatin-wound erythema, no fluctuance, no clinical suspicion of infection; Deep tissue injury noted on the medial aspect of the 1st MTPJ on the right with hyperpigmented skin layer; deep tissue injury noted on the left posterior lateral heel as well as head of the 5th metatarsal, no clinical suspicion of active infection at any site NEURO: Epicritic and protective sensation mildly diminished ORTHO: no pain on palpation of the wound site - Neurological Exam Neurological Exam: Alert, Awake, Oriented x3 - Psychiatric Exam Psychiatric exam: Normal Affect, Normal Mood Assessment and Plan - Assessment and Plan (Free Text) Assessment: 77 year old female evaluated for 1). Right heel ulcer 2). multiple deep tissue injury all secondary to pressure/bed bound status Plan: Patient seen and evaluated at bedside Discussed plan with attending Dr. Conley Labs, vitals and charts reviewed - afebrile, WBC @ 6.1 as of 11/12 Right heel pressure ulcer appears non-infected at this time Superficial debridement of the epidermal layer using sterile suture removal kit , patient tolerated the procedure well Ulcer dressed using Silvadene, ABD, 4x4, Kerlix Left heel DTI dressing using optifoam dressing Multipodus boots to be worn at all times while in bed Heel off loading shoes ordered - WBAT in the shoe during therapy IV abx as per ID Medical management as per primary team Podiatry to follow patient while in-house
--- NOTE | 2017-11-13 12:17 | CP.PCM.CON ---
History of Present Illness - History of Present Illness History of Present Illness: follow up consult patient has been evaluated before for history of depression which has resulted in her non compliance with needed medications for her medical condition including diabetes, patient refused twice admission to psychiatry unit for further stabilization of her depression, refused to have the undersigned contact her children insisting she needs to be discharged home Due to the impression that the patient t current mental status could be risk to self in terms of neglecting her medical care and follow up which resulted in her hospitalization at least three times in the past six months, pt was twice referred to be screened for possible involuntary admission to psychiatry for further stabilization, pt was declined twice by [facility] , continues to request to be discharged patient at current mental status is alert awake oriented to person and place , able to verbalize the reason of her current admission, able to verbalize risk versus benefits of continuation of care and medication compliance understands the risks of non compliance with medications at home Patient at current mental status has the capacity to make decision in reference to her medical care, continues to refuse psychiatric help It is my recommendation that patient at current mental status could be discharged against medical advise Past Patient History - Infectious Disease Hx of Infectious Diseases: None - Past Medical History & Family History Past Medical History?: Yes - Past Social History Smoking Status: Never Smoked - CARDIAC Hx Hypercholesterolemia: Yes Hx Hypertension: Yes - PULMONARY Hx Chronic Obstructive Pulmonary Disease (COPD): Yes Hx Pneumonia: Yes - NEUROLOGICAL Hx Neurological Disorder: No - HEENT Hx HEENT Problems: No - RENAL Hx Chronic Kidney Disease: Yes - ENDOCRINE/METABOLIC Hx Endocrine Disorders: Yes Hx Diabetes Mellitus Type 2: Yes - HEMATOLOGICAL/ONCOLOGICAL Hx Blood Disorders: No - INTEGUMENTARY Hx Dermatological Problems: No - MUSCULOSKELETAL/RHEUMATOLOGICAL Hx Arthritis: Yes Hx Falls: Yes - GASTROINTESTINAL Hx Gastrointestinal Disorders: No - GENITOURINARY/GYNECOLOGICAL Hx Genitourinary Disorders: Yes Hx Incontinence: Yes - PSYCHIATRIC Hx Anxiety: Yes Hx Depression: Yes - SURGICAL HISTORY Hx Tonsillectomy: Yes - ANESTHESIA Hx Anesthesia: Yes Hx Anesthesia Reactions: No Hx Malignant Hyperthermia: No Meds Allergies/Adverse Reactions: Allergies Allergy/AdvReac Type Severity Reaction Status Date / Time No Known Allergies Allergy Verified 05/08/17 21:15 - Medications Medications: Current Medications Acetaminophen (Tylenol 325mg Tab) 650 mg PO Q4 PRN PRN Reason: Pain, Mild (1-3) Last Admin: 11/12/17 12:13 Dose: 650 mg Aspirin (Ecotrin) 81 mg PO DAILY [facility] Last Admin: 11/13/17 08:09 Dose: 81 mg Atorvastatin Calcium (Lipitor) 40 mg PO DAILY@2100 [facility] Last Admin: 11/12/17 21:17 Dose: 40 mg Dimethicone (Proshield Plus Skin Protectant) 1 applic TOP Q8 [facility] Last Admin: 11/13/17 08:11 Dose: 1 applic Ergocalciferol (Drisdol 50,000 Intl Units Cap) 1 cap PO Q7D [facility] Last Admin: 11/08/17 17:46 Dose: 1 cap Escitalopram Oxalate (Lexapro) 10 mg PO DAILY [facility] Last Admin: 11/13/17 08:09 Dose: 10 mg Heparin Sodium (Porcine) (Heparin) 5,000 units SC Q12 [facility] PRN Reason: Protocol Last Admin: 11/13/17 08:09 Dose: 5,000 units Insulin Human Regular (Humulin R) 0 units SC ACHS [facility] PRN Reason: Protocol Last Admin: 11/13/17 06:52 Dose: 1 unit Lidocaine (Lidoderm) 1 ea TD DAILY [facility] Last Admin: 11/13/17 08:10 Dose: 1 ea Nystatin (Mycostatin Cream) 1 applic TOP 0900,1700,2100 [facility] Last Admin: 11/13/17 08:11 Dose: 1 applic Silver Sulfadiazine (Silvadene 1% 20 Gm) 1 ea TOP DAILY [facility] Last Admin: 11/13/17 08:11 Dose: 1 each Sodium Bicarbonate (Sodium Bicarbonate Tab) 650 mg PO BID [facility] Last Admin: 11/13/17 08:09 Dose: 650 mg Physical Exam - Psychiatric Exam Additional comments: pt seen in bed, partial eye contact mood reported fine affect constricted, thought form coherent, speech underproductive, denied any current suicidal or homicidal ideation , denied perceptual disturbances, alert awake oriented to person and place partially to time , partial insight , poor judgment Results - Vital Signs Recent Vital Signs: Last Vital Signs Temp 97.7 F 11/13/17 09:00 Pulse 62 11/13/17 09:00 Resp 20 11/13/17 09:00 BP 143/73 11/13/17 09:00 Pulse Ox 98 11/13/17 09:00 - Labs Result Diagrams: 11/12/17 07:20 11/12/17 06:15 Labs: Laboratory Results - last 24 hr 11/12/17 11/12/17 11/13/17 16:22 21:09 05:20 POC Glucose (mg/dL) 187 H 223 H 166 H Assessment & Plan - Assessment and Plan (Free Text) Assessment: 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
--- NOTE | 2017-11-13 23:25 | CP.PCM.PN ---
Subjective - Date & Time of Evaluation Date of Evaluation: 11/13/17 Time of Evaluation: 13:00 - Subjective Subjective: Reports minimal ambulation with PT; otherwise feeling well; no sob; Objective - Vital Signs/Intake and Output Vital Signs (last 24 hours): Temp Pulse Resp BP Pulse Ox 99.2 F 69 20 122/70 96 11/13/17 20:09 11/13/17 20:09 11/13/17 20:09 11/13/17 20:09 11/13/17 20:09 - Medications Medications: Current Medications Acetaminophen (Tylenol 325mg Tab) 650 mg PO Q4 PRN PRN Reason: Pain, Mild (1-3) Last Admin: 11/12/17 12:13 Dose: 650 mg Aspirin (Ecotrin) 81 mg PO DAILY [facility] Last Admin: 11/13/17 08:09 Dose: 81 mg Atorvastatin Calcium (Lipitor) 40 mg PO DAILY@2100 [facility] Last Admin: 11/13/17 20:51 Dose: 40 mg Dimethicone (Proshield Plus Skin Protectant) 1 applic TOP Q8 [facility] Last Admin: 11/13/17 17:18 Dose: 1 applic Ergocalciferol (Drisdol 50,000 Intl Units Cap) 1 cap PO Q7D [facility] Last Admin: 11/08/17 17:46 Dose: 1 cap Escitalopram Oxalate (Lexapro) 10 mg PO DAILY [facility] Last Admin: 11/13/17 08:09 Dose: 10 mg Heparin Sodium (Porcine) (Heparin) 5,000 units SC Q12 [facility] PRN Reason: Protocol Last Admin: 11/13/17 20:51 Dose: 5,000 units Insulin Human Regular (Humulin R) 0 units SC ACHS [facility] PRN Reason: Protocol Last Admin: 11/13/17 21:08 Dose: Not Given Lidocaine (Lidoderm) 1 ea TD DAILY [facility] Last Admin: 11/13/17 08:10 Dose: 1 ea Nystatin (Mycostatin Cream) 1 applic TOP 0900,1700,2100 [facility] Last Admin: 11/13/17 20:52 Dose: 1 applic Silver Sulfadiazine (Silvadene 1% 20 Gm) 1 ea TOP DAILY [facility] Last Admin: 11/13/17 08:11 Dose: 1 each Sodium Bicarbonate (Sodium Bicarbonate Tab) 650 mg PO BID [facility] Last Admin: 11/13/17 17:18 Dose: 650 mg - Labs Labs: 05/06/18 07:20 11/12/17 06:15 - Constitutional Appears: Non-toxic, No Acute Distress - Eye Exam Eye Exam: absent: Scleral icterus - ENT Exam ENT Exam: Mucous Membranes Moist - Respiratory Exam Respiratory Exam: Clear to Ausculation Bilateral. absent: Respiratory Distress - Cardiovascular Exam Cardiovascular Exam: RRR, +S1, +S2 - GI/Abdominal Exam GI & Abdominal Exam: Soft. absent: Distended, Tenderness - Extremities Exam Additional comments: minimal lower leg edema; - Neurological Exam Neurological Exam: Alert, Awake - Psychiatric Exam Psychiatric exam: absent: Agitated - Skin Skin Exam: Warm. absent: Cyanosis Assessment and Plan (1) Chronic kidney disease (CKD), stage IV (severe) Assessment & Plan: Mild increase of serum creatinine from 2.6 -> 3.0; stable volume status; mild hyperkalemia noted; patient still hesitant about AVF placement; -continue to monitor labs weekly due to high risk for recurrent urosepsis; -continue low K diet; -no definite need for kayexalate until K in mid to upper 5's (not a completely benign med with rare adverse reaction of intestinal necrosis and also gives high sodium load); consider small dose of basal insulin since sugars are elevated; Status: Chronic (2) Anemia Assessment & Plan: Hgb currently at goal of 10-11 g; EPO held; will restart once hgb starts to drop a little; Status: Acute (3) UTI (urinary tract infection) Assessment & Plan: High risk for urosepsis; urine culture from 3 days ago negative; continue to monitor closely; Status: Acute (4) Hypertension Status: Chronic (5) Hyperkalemia Status: Acute (6) Metabolic acidosis Assessment & Plan: On PO bicarb, at goal of 22-24; continue same; Status: Resolved
[2017-11-14] MEDS: Proshield Plus GEL TOP SCH ×3 (00:39→16:30)
[2017-11-14 06:41] LABS: BASO # 0.2 K/uL (0.0-0.2); BASO % 2.1 % (0.0-2.0); EOS # 0.4 K/uL (0.0-0.7); EOS % 4.9 % (0.0-4.0); LYMPH # 2.3 K/uL (1.0-4.3); LYMPH % 28.9 % (20.0-40.0); MEAN CELL VOLUME 91.9 fl (81.0-99.0); MEAN CORPUSCULAR HGB CONC 31.6 g/dL (33.0-37.0); MEAN PLATELET VOLUME 7.6 fl (7.2-11.7); MONO # 0.7 K/uL (0.0-0.8); MONO % 9.4 % (0.0-10.0); NEUT # 4.3 K/uL (1.8-7.0); NEUT % 54.7 % (50.0-75.0); NRBC % 0.1 % (0.0-0.0); RBC 3.8 Mil/uL (3.80-5.20); RED CELL DISTRIBUTION WIDTH 19.2 % (11.5-14.5); WHITE BLOOD COUNT 7.9 K/uL (4.8-10.8)
[2017-11-14 06:55] LABS: CALCIUM 8.6 mg/dL (8.4-10.2)
--- NOTE | 2017-11-14 07:05 | CP.PCM.PN ---
<Sultan Jerry - Last Filed: 11/14/17 09:00> Subjective - Date & Time of Evaluation Date of Evaluation: 11/14/17 Time of Evaluation: 07:25 - Subjective Subjective: Patient seen and examined at bedside this morning. Pt is doing well and denies any acute complaints. Pt is eating and drinking normally. Reports she is doing better with PT. Has Clay in place. Denies any cough, chest pain, dyspnea, abdominal pain, headache, dizziness, fever or chills. Objective - Vital Signs/Intake and Output Vital Signs (last 24 hours): Temp Pulse Resp BP Pulse Ox 99.2 F 69 20 122/70 96 11/13/17 20:09 11/13/17 20:09 11/13/17 20:09 11/13/17 20:09 11/13/17 20:09 Intake and Output: 11/14/17 11/14/17 06:59 18:59 Intake Total 450 Output Total 1200 Balance -750 - Medications Medications: Current Medications Acetaminophen (Tylenol 325mg Tab) 650 mg PO Q4 PRN PRN Reason: Pain, Mild (1-3) Last Admin: 11/12/17 12:13 Dose: 650 mg Aspirin (Ecotrin) 81 mg PO DAILY [facility] Last Admin: 11/13/17 08:09 Dose: 81 mg Atorvastatin Calcium (Lipitor) 40 mg PO DAILY@2100 [facility] Last Admin: 11/13/17 20:51 Dose: 40 mg Dimethicone (Proshield Plus Skin Protectant) 1 applic TOP Q8 [facility] Last Admin: 11/14/17 00:39 Dose: 1 applic Ergocalciferol (Drisdol 50,000 Intl Units Cap) 1 cap PO Q7D [facility] Last Admin: 11/08/17 17:46 Dose: 1 cap Escitalopram Oxalate (Lexapro) 10 mg PO DAILY [facility] Last Admin: 11/13/17 08:09 Dose: 10 mg Heparin Sodium (Porcine) (Heparin) 5,000 units SC Q12 [facility] PRN Reason: Protocol Last Admin: 11/13/17 20:51 Dose: 5,000 units Insulin Human Regular (Humulin R) 0 units SC ACHS [facility] PRN Reason: Protocol Last Admin: 11/13/17 21:08 Dose: Not Given Lidocaine (Lidoderm) 1 ea TD DAILY [facility] Last Admin: 11/13/17 08:10 Dose: 1 ea Nystatin (Mycostatin Cream) 1 applic TOP 0900,1700,2100 [facility] Last Admin: 11/13/17 20:52 Dose: 1 applic Silver Sulfadiazine (Silvadene 1% 20 Gm) 1 ea TOP DAILY [facility] Last Admin: 11/13/17 08:11 Dose: 1 each Sodium Bicarbonate (Sodium Bicarbonate Tab) 650 mg PO BID [facility] Last Admin: 11/13/17 17:18 Dose: 650 mg - Labs Labs: 11/14/17 06:20 11/14/17 06:20 - Additional Findings Additional findings: - Constitutional Appears: No Acute Distress - ENT Exam ENT Exam: Mucous Membranes Moist - Neck Exam Neck Exam: Normal Inspection - Respiratory Exam Respiratory Exam: Clear to Ausculation Bilateral, NORMAL BREATHING PATTERN. absent: Rales, Rhonchi, Wheezes - Cardiovascular Exam Cardiovascular Exam: REGULAR RHYTHM, RRR, +S1, +S2 - GI/Abdominal Exam GI & Abdominal Exam: Soft, Normal Bowel Sounds. absent: Tenderness - Extremities Exam Additional comments: 1.5 cm x1.5 cm right heel ulcer. No surrounding erythema or discharge seen. Has resting tremor on B/L hands. - Neurological Exam Neurological Exam: Alert, Awake, Oriented x3 - Psychiatric Exam Psychiatric exam: Anxious, Depressed Assessment and Plan - Assessment and Plan (Free Text) Assessment: 77 yo female with hx of depression, CKD not on HD, chronic ureteral stents, Type II DM, with recurrent admission to [facility] with recurrent sepsis admitted on 10/20/17 for septic shock now resolved and discharged to TCU for PT while awaiting for safe discharge. All the recurrent admissions to [facility] are due to pt's manifestation of depression and possible suicidal gestures. Pt was screened by [facility] twice for involuntary admission but she is not a candidate. Plan: Major Depression 1- Continue with lexapro 10 mg po daily 2- Psych recommendations appreciated 3- Pt was re-screened over the weekend for involuntary admission but has not been accepted. Need for safe discharge 1- Dr. Boswell spoke with pt's son and daughter, and they won't be able to take appropriate care of her mother. 2- SW consult requested for safe discharge. Weakness/Deconditioing 1- Continue physical therapy in TCU Hyperkalemia resolved -K:4.8 this morning s/p Keyexalate 15 mg po yesterday -Nephrology Dr. Garcia on board Multiple ulcers- Continue current management wound care on board 1- DTI present on Sacrum, stable 2- R foot: localized erythema (DTI) in plantar aspect of great toe and right heel resolving. 3- L foot: Stage 2 pressure ulcer noted on medial aspect of heel, stable. 4- Will replace Clay every 10 days to prevent UTI- Need for chronic clay because of chronic sacral ulcers and patient being chronically bed bound 5-Podiatry consult appreciated. CKD Stage IV with ureteral stent- Chronic 1- Not on HD - Pt offered Fistula placement and Dialysis but declines at this time 2- Continue to monitor labs weekly 3- Low K+ diet 4- Nephrology and Urology recommendation appreciated Anemia of chronic disease 1- Completed I.V. venofer for 10 days recently 2- Hb is 11.0 today 3- Monitor CBC C-diff colitis- Resolved 1- Repeat C.diff Toxin A&B negative 2-Completed Vancomycin PO day 14 on 11/08/17. Hypertension- Chronic 1- Well controlled Type II DM- Chronic 1- Continue current management DVT prophlaxis 1- Heparin 5000 units SC BID Code status 1- DNR/DNI <Jsoe Juan Boswell - Last Filed: 11/15/17 06:56> Objective - Vital Signs/Intake and Output Vital Signs (last 24 hours): Temp Pulse Resp BP Pulse Ox 98.1 F 74 20 128/77 99 11/14/17 21:10 11/14/17 21:10 11/14/17 21:10 11/14/17 21:10 11/14/17 21:10 - Medications Medications: Current Medications Acetaminophen (Tylenol 325mg Tab) 650 mg PO Q4 PRN PRN Reason: Pain, Mild (1-3) Last Admin: 11/14/17 16:28 Dose: 650 mg Aspirin (Ecotrin) 81 mg PO DAILY [facility] Last Admin: 11/14/17 08:14 Dose: 81 mg Atorvastatin Calcium (Lipitor) 40 mg PO DAILY@2100 [facility] Last Admin: 11/14/17 21:21 Dose: 40 mg Dimethicone (Proshield Plus Skin Protectant) 1 applic TOP Q8 [facility] Last Admin: 11/15/17 00:07 Dose: Not Given Ergocalciferol (Drisdol 50,000 Intl Units Cap) 1 cap PO Q7D [facility] Last Admin: 11/08/17 17:46 Dose: 1 cap Escitalopram Oxalate (Lexapro) 10 mg PO DAILY [facility] Last Admin: 11/14/17 08:13 Dose: 10 mg Heparin Sodium (Porcine) (Heparin) 5,000 units SC Q12 [facility] PRN Reason: Protocol Last Admin: 11/14/17 21:21 Dose: 5,000 units Insulin Human Regular (Humulin R) 0 units SC ACHS [facility] PRN Reason: Protocol Last Admin: 11/15/17 06:33 Dose: 2 units Lidocaine (Lidoderm) 1 ea TD DAILY [facility] Last Admin: 11/14/17 08:14 Dose: 1 ea Nystatin (Mycostatin Cream) 1 applic TOP 0900,1700,2100 [facility] Last Admin: 11/14/17 21:22 Dose: 1 applic Silver Sulfadiazine (Silvadene 1% 20 Gm) 1 ea TOP DAILY [facility] Last Admin: 11/14/17 08:22 Dose: 1 each Sodium Bicarbonate (Sodium Bicarbonate Tab) 650 mg PO BID [facility] Last Admin: 11/14/17 16:29 Dose: 650 mg - Labs Labs: 11/14/17 06:20 11/14/17 06:20 Attending/Attestation - Attestation I have personally seen and examined this patient.: Yes I have fully participated in the care of the patient.: Yes I have reviewed all pertinent clinical information, including history, physical exam and plan: Yes
[2017-11-14] MEDS: Insulin Regular 100 units/ml SC SCH ×4 (08:13→21:22)
[2017-11-14] MEDS: Lidocaine 5% Patch TD SCH (08:14)
[2017-11-14] MEDS: Silver Sulfadiazine 1% Cream (20 gm) TOP SCH (08:22)
--- NOTE | 2017-11-14 10:41 | CP.PCM.PN ---
Subjective - Date & Time of Evaluation Date of Evaluation: 11/14/17 Time of Evaluation: 10:37 - Subjective Subjective: Podiatry Consult note: Dr. Conley 77 year old female patient was seen and evaluated in TCU for left heel pressure ulcer on the right heel and deep tissue injury on the left heel. Patient is AAOx3 and is in NAD. Denies any acute overnight events. Denies of any pain to her LE today.Denies any recent F/N/V/C/SOB/CP/headache. No new pedal complains today. Objective - Vital Signs/Intake and Output Vital Signs (last 24 hours): Temp Pulse Resp BP Pulse Ox 97.9 F 68 18 139/75 99 11/14/17 08:00 11/14/17 08:00 11/14/17 08:00 11/14/17 08:00 11/14/17 08:00 Intake and Output: 11/14/17 11/14/17 06:59 18:59 Intake Total 450 Output Total 1200 Balance -750 - Medications Medications: Current Medications Acetaminophen (Tylenol 325mg Tab) 650 mg PO Q4 PRN PRN Reason: Pain, Mild (1-3) Last Admin: 11/12/17 12:13 Dose: 650 mg Aspirin (Ecotrin) 81 mg PO DAILY [facility] Last Admin: 11/14/17 08:14 Dose: 81 mg Atorvastatin Calcium (Lipitor) 40 mg PO DAILY@2100 [facility] Last Admin: 11/13/17 20:51 Dose: 40 mg Dimethicone (Proshield Plus Skin Protectant) 1 applic TOP Q8 [facility] Last Admin: 11/14/17 08:22 Dose: 1 applic Ergocalciferol (Drisdol 50,000 Intl Units Cap) 1 cap PO Q7D [facility] Last Admin: 11/08/17 17:46 Dose: 1 cap Escitalopram Oxalate (Lexapro) 10 mg PO DAILY [facility] Last Admin: 11/14/17 08:13 Dose: 10 mg Heparin Sodium (Porcine) (Heparin) 5,000 units SC Q12 [facility] PRN Reason: Protocol Last Admin: 11/14/17 08:15 Dose: 5,000 units Insulin Human Regular (Humulin R) 0 units SC ACHS [facility] PRN Reason: Protocol Last Admin: 11/14/17 08:13 Dose: 1 unit Lidocaine (Lidoderm) 1 ea TD DAILY [facility] Last Admin: 11/14/17 08:14 Dose: 1 ea Nystatin (Mycostatin Cream) 1 applic TOP 0900,1700,2100 [facility] Last Admin: 11/14/17 08:21 Dose: 1 applic Silver Sulfadiazine (Silvadene 1% 20 Gm) 1 ea TOP DAILY [facility] Last Admin: 11/14/17 08:22 Dose: 1 each Sodium Bicarbonate (Sodium Bicarbonate Tab) 650 mg PO BID [facility] Last Admin: 11/14/17 08:14 Dose: 650 mg - Labs Labs: 11/14/17 06:20 11/14/17 06:20 - Constitutional Appears: Well, Non-toxic, No Acute Distress - Extremities Exam Additional comments: Bilateral LE focused exam: VASC: DP/PT pulses are palpable 1/4 B/L. Cap refill time: < 3 seconds to all digits. Skin temperature warm to cool from proximal to distal. no pitting or non -pitting edema noted to b/l LE DERM: wound measuring approx. 4.0 cm x 3.5 cm x <0.1 cm at posterior-plantar aspect of the right heel with sloughing superficial epidermal layer extending laterally - the sloughing epidermal layer appears macerated and hyperpigmented due to underlying DTI, mild serous drainage noted with wound base fully granular, mild jatin-wound maceration noted, no tunneling, no probe to bone, no malodor, no jatin-wound erythema, no fluctuance, no clinical suspicion of infection; Deep tissue injury noted on the medial aspect of the 1st MTPJ on the right with hyperpigmented skin layer; deep tissue injury noted on the left posterior lateral heel as well as head of the 5th metatarsal, no clinical suspicion of active infection at any site NEURO: Epicritic and protective sensation mildly diminished ORTHO: no pain on palpation of the wound site - Neurological Exam Neurological Exam: Alert, Awake, Oriented x3 - Psychiatric Exam Psychiatric exam: Normal Affect, Normal Mood Assessment and Plan - Assessment and Plan (Free Text) Assessment: 77 year old female evaluated for 1). Right heel ulcer 2). multiple deep tissue injury all secondary to pressure/bed bound status Plan: Patient seen and evaluated at bedside Discussed plan with attending Dr. Conley Labs, vitals and charts reviewed - afebrile, WBC @ 7.9 Aseptic debridement of nails using sterile clippers Right heel pressure ulcer appears non-infected at this time Ulcer dressed using Silvadene, ABD, 4x4, Kerlix Left heel DTI dressing using optifoam dressing Multipodus boots to be worn at all times while in bed Heel off loading shoes ordered - WBAT in the shoe during therapy IV abx as per ID Medical management as per primary team Podiatry to follow patient while in-house
[2017-11-15] MEDS: Proshield Plus GEL TOP SCH ×3 (00:07→16:35)
[2017-11-15] MEDS: Insulin Regular 100 units/ml SC SCH ×4 (06:33→22:39)
--- NOTE | 2017-11-15 06:52 | CP.PCM.PN ---
<MarcellaSultan henry - Last Filed: 11/15/17 11:13> Subjective - Date & Time of Evaluation Date of Evaluation: 11/15/17 Time of Evaluation: 07:20 - Subjective Subjective: Patient seen and examined at bedside this morning. Pt states is doing "fine" and denies any acute complaints. Pt is eating and drinking normally. Reports she is doing better with PT. Has Clay in place. Denies any cough, chest pain, dyspnea, abdominal pain, headache, dizziness, fever or chills. Objective - Vital Signs/Intake and Output Vital Signs (last 24 hours): Temp Pulse Resp BP Pulse Ox 98.1 F 74 20 128/77 99 11/14/17 21:10 11/14/17 21:10 11/14/17 21:10 11/14/17 21:10 11/14/17 21:10 - Medications Medications: Current Medications Acetaminophen (Tylenol 325mg Tab) 650 mg PO Q4 PRN PRN Reason: Pain, Mild (1-3) Last Admin: 11/14/17 16:28 Dose: 650 mg Aspirin (Ecotrin) 81 mg PO DAILY [facility] Last Admin: 11/14/17 08:14 Dose: 81 mg Atorvastatin Calcium (Lipitor) 40 mg PO DAILY@2100 [facility] Last Admin: 11/14/17 21:21 Dose: 40 mg Dimethicone (Proshield Plus Skin Protectant) 1 applic TOP Q8 [facility] Last Admin: 11/15/17 00:07 Dose: Not Given Ergocalciferol (Drisdol 50,000 Intl Units Cap) 1 cap PO Q7D [facility] Last Admin: 11/08/17 17:46 Dose: 1 cap Escitalopram Oxalate (Lexapro) 10 mg PO DAILY [facility] Last Admin: 11/14/17 08:13 Dose: 10 mg Heparin Sodium (Porcine) (Heparin) 5,000 units SC Q12 [facility] PRN Reason: Protocol Last Admin: 11/14/17 21:21 Dose: 5,000 units Insulin Human Regular (Humulin R) 0 units SC ACHS [facility] PRN Reason: Protocol Last Admin: 11/15/17 06:33 Dose: 2 units Lidocaine (Lidoderm) 1 ea TD DAILY [facility] Last Admin: 11/14/17 08:14 Dose: 1 ea Nystatin (Mycostatin Cream) 1 applic TOP 0900,1700,2100 [facility] Last Admin: 11/14/17 21:22 Dose: 1 applic Silver Sulfadiazine (Silvadene 1% 20 Gm) 1 ea TOP DAILY [facility] Last Admin: 11/14/17 08:22 Dose: 1 each Sodium Bicarbonate (Sodium Bicarbonate Tab) 650 mg PO BID [facility] Last Admin: 11/14/17 16:29 Dose: 650 mg - Labs Labs: 11/14/17 06:20 11/14/17 06:20 - Additional Findings Additional findings: - Constitutional Appears: No Acute Distress - ENT Exam ENT Exam: Mucous Membranes Moist - Neck Exam Neck Exam: Normal Inspection - Respiratory Exam Respiratory Exam: Clear to Ausculation Bilateral, NORMAL BREATHING PATTERN. absent: Rales, Rhonchi, Wheezes - Cardiovascular Exam Cardiovascular Exam: REGULAR RHYTHM, RRR, +S1, +S2 - GI/Abdominal Exam GI & Abdominal Exam: Soft, Normal Bowel Sounds. absent: Tenderness - Extremities Exam Additional comments: Has resting tremor on B/L hands. - Neurological Exam Neurological Exam: Alert, Awake, Oriented x3 - Psychiatric Exam Psychiatric exam: Anxious, Depressed Assessment and Plan - Assessment and Plan (Free Text) Assessment: 77 yo female with hx of depression, CKD not on HD, chronic ureteral stents, Type II DM, with recurrent admission to [facility] with recurrent sepsis admitted on 10/20/17 for septic shock now resolved and discharged to TCU for PT while awaiting for safe discharge. All the recurrent admissions to [facility] are due to pt's manifestation of depression and possible suicidal gestures. Pt was screened by [facility] twice for involuntary admission but she is not a candidate. Plan: Major Depression 1- Continue with lexapro 10 mg po daily 2- Psych recommendations appreciated 3- Pt was re-screened over the weekend for involuntary admission but has not been accepted. Need for safe discharge 1- Dr. Boswell spoke with pt's son and daughter, and they won't be able to take appropriate care of her mother. 2- SW consult requested for safe discharge. Weakness/Deconditioing 1- Continue physical therapy in TCU Multiple ulcers- Continue current management wound care and podiatry on board 1- DTI present on Sacrum, stable 2- R foot: localized erythema (DTI) in plantar aspect of great toe and right heel resolving. 3- L foot: Stage 2 pressure ulcer noted on medial aspect of heel, stable. 4- Will replace Clay every 10 days to prevent UTI- Need for chronic clay because of chronic sacral ulcers and patient being chronically bed bound 5-Podiatry consult appreciated. CKD Stage IV with ureteral stent- Chronic 1- Not on HD - Pt offered Fistula placement and Dialysis but declines at this time 2- Continue to monitor labs weekly 3- Low K+ diet 4- Nephrology and Urology recommendation appreciated Anemia of chronic disease 1- Completed I.V. venofer for 10 days recently 2- Hb is 11.0 today 3- Monitor CBC Hypertension- Chronic 1- Well controlled Type II DM- Chronic 1- Continue current management DVT prophlaxis 1- Heparin 5000 units SC BID Code status 1- DNR/DNI <Jose Juan Boswell - Last Filed: 11/22/17 07:03> Objective - Vital Signs/Intake and Output Vital Signs (last 24 hours): Temp Pulse Resp BP Pulse Ox 98.6 F 83 20 122/67 99 11/21/17 15:59 11/21/17 15:59 11/21/17 15:59 11/21/17 15:59 11/21/17 15:59 - Labs Labs: 11/21/17 06:40 11/21/17 06:40 Attending/Attestation - Attestation I have personally seen and examined this patient.: Yes I have fully participated in the care of the patient.: Yes I have reviewed all pertinent clinical information, including history, physical exam and plan: Yes
--- NOTE | 2017-11-15 07:44 | CP.PCM.PN ---
Subjective - Date & Time of Evaluation Date of Evaluation: 11/15/17 Time of Evaluation: 07:46 - Subjective Subjective: Podiatry Progress note: Dr. Conley 77 year old female patient was seen and evaluated in TCU for left heel pressure ulcer on the right heel and deep tissue injury on the left heel. Patient is AAOx3 and is in NAD. Denies any acute overnight events. Denies of any pain to her LE today. Reports that she did not have her boots on all day yesterday and this morning. Denies any recent F/N/V/C/SOB/CP/headache. No new pedal complains today. Objective - Vital Signs/Intake and Output Vital Signs (last 24 hours): Temp Pulse Resp BP Pulse Ox 98.1 F 74 20 128/77 99 11/14/17 21:10 11/14/17 21:10 11/14/17 21:10 11/14/17 21:10 11/14/17 21:10 - Medications Medications: Current Medications Acetaminophen (Tylenol 325mg Tab) 650 mg PO Q4 PRN PRN Reason: Pain, Mild (1-3) Last Admin: 11/14/17 16:28 Dose: 650 mg Aspirin (Ecotrin) 81 mg PO DAILY [facility] Last Admin: 11/14/17 08:14 Dose: 81 mg Atorvastatin Calcium (Lipitor) 40 mg PO DAILY@2100 [facility] Last Admin: 11/14/17 21:21 Dose: 40 mg Dimethicone (Proshield Plus Skin Protectant) 1 applic TOP Q8 [facility] Last Admin: 11/15/17 00:07 Dose: Not Given Ergocalciferol (Drisdol 50,000 Intl Units Cap) 1 cap PO Q7D [facility] Last Admin: 11/08/17 17:46 Dose: 1 cap Escitalopram Oxalate (Lexapro) 10 mg PO DAILY [facility] Last Admin: 11/14/17 08:13 Dose: 10 mg Heparin Sodium (Porcine) (Heparin) 5,000 units SC Q12 [facility] PRN Reason: Protocol Last Admin: 11/14/17 21:21 Dose: 5,000 units Insulin Human Regular (Humulin R) 0 units SC ACHS [facility] PRN Reason: Protocol Last Admin: 11/15/17 06:33 Dose: 2 units Lidocaine (Lidoderm) 1 ea TD DAILY [facility] Last Admin: 11/14/17 08:14 Dose: 1 ea Nystatin (Mycostatin Cream) 1 applic TOP 0900,1700,2100 [facility] Last Admin: 11/14/17 21:22 Dose: 1 applic Silver Sulfadiazine (Silvadene 1% 20 Gm) 1 ea TOP DAILY [facility] Last Admin: 11/14/17 08:22 Dose: 1 each Sodium Bicarbonate (Sodium Bicarbonate Tab) 650 mg PO BID [facility] Last Admin: 11/14/17 16:29 Dose: 650 mg - Labs Labs: 11/14/17 06:20 11/14/17 06:20 - Constitutional Appears: Well, Non-toxic, No Acute Distress - Extremities Exam Additional comments: Bilateral LE focused exam: VASC: DP/PT pulses are palpable 1/4 B/L. Cap refill time: < 3 seconds to all digits. Skin temperature warm to cool from proximal to distal. no pitting or non -pitting edema noted to b/l LE DERM: wound measuring approx. 4.0 cm x 3.5 cm x <0.1 cm at posterior-plantar aspect of the right heel with sloughing superficial epidermal layer extending laterally - the sloughing epidermal layer appears macerated and hyperpigmented due to underlying DTI, mild serous drainage noted with wound base fully granular, mild jatin-wound maceration noted, no tunneling, no probe to bone, no malodor, no jatin-wound erythema, no fluctuance, no clinical suspicion of infection; Deep tissue injury noted on the medial aspect of the 1st MTPJ on the right with hyperpigmented skin layer; deep tissue injury noted on the left posterior lateral heel as well as head of the 5th metatarsal, no clinical suspicion of active infection at any site NEURO: Epicritic and protective sensation mildly diminished ORTHO: no pain on palpation of the wound site - Neurological Exam Neurological Exam: Alert, Awake, Oriented x3 - Psychiatric Exam Psychiatric exam: Normal Affect, Normal Mood Assessment and Plan - Assessment and Plan (Free Text) Assessment: 77 year old female evaluated for 1). Right heel ulcer 2). multiple deep tissue injury all secondary to pressure/bed bound status Plan: Patient seen and evaluated at bedside Discussed plan with attending Dr. Conley Labs, vitals and charts reviewed - afebrile, WBC @ 7.9 as of yesterday Right heel pressure ulcer appears non-infected at this time Ulcer dressed using Silvadene, ABD, 4x4, Kerlix Left heel DTI dressing using optifoam dressing Multipodus boots to be worn at all times while in bed Heel off loading shoes ordered - WBAT in the shoe during therapy IV abx as per ID Medical management as per primary team Podiatry to follow patient while in-house
[2017-11-15] MEDS: Lidocaine 5% Patch TD SCH (08:19)
[2017-11-15] MEDS: Silver Sulfadiazine 1% Cream (20 gm) TOP SCH (09:45)
[2017-11-15 10:20] LABS: ALBUMIN 35.2 Relative %
[2017-11-15] MEDS: Ergocalciferol 50,000 Intl Units Cap PO SCH (16:33)
[2017-11-16] MEDS: Proshield Plus GEL TOP SCH ×3 (00:42→16:32)
[2017-11-16 06:22] LABS: HEMOGLOBIN 11.3 g/dL (12.0-16.0); MEAN CORPUSCULAR HEMOGLOBIN 28.5 pg (27.0-31.0); MEAN CORPUSCULAR HGB CONC 30.7 g/dL (33.0-37.0); RBC 3.97 Mil/uL (3.80-5.20); RED CELL DISTRIBUTION WIDTH 19.2 % (11.5-14.5); WHITE BLOOD COUNT 8.2 K/uL (4.8-10.8)
[2017-11-16 06:43] LABS: CALCIUM 8.7 mg/dL (8.4-10.2)
[2017-11-16] MEDS: Insulin Regular 100 units/ml SC SCH ×4 (06:49→21:35)
--- NOTE | 2017-11-16 08:01 | CP.PCM.PN ---
<Sultan Jerry - Last Filed: 11/16/17 17:53> Subjective - Date & Time of Evaluation Date of Evaluation: 11/16/17 Time of Evaluation: 07:30 - Subjective Subjective: Patient seen and examined this morning. Pt reports she is doing well. No overnight events. Pt is eating and drinking normally. Reports she is doing better with PT. Has Clay in place. Denies any cough, chest pain, dyspnea, abdominal pain, headache, dizziness, fever or chills. Objective - Vital Signs/Intake and Output Vital Signs (last 24 hours): Temp Pulse Resp BP Pulse Ox 99.7 F H 69 20 124/68 98 11/15/17 19:42 11/15/17 19:42 11/15/17 19:42 11/15/17 19:42 11/15/17 19:42 - Medications Medications: Current Medications Acetaminophen (Tylenol 325mg Tab) 650 mg PO Q4 PRN PRN Reason: Pain, Mild (1-3) Last Admin: 11/15/17 11:18 Dose: 650 mg Aspirin (Ecotrin) 81 mg PO DAILY [facility] Last Admin: 11/15/17 08:18 Dose: 81 mg Atorvastatin Calcium (Lipitor) 40 mg PO DAILY@2100 [facility] Last Admin: 11/15/17 20:19 Dose: 40 mg Dimethicone (Proshield Plus Skin Protectant) 1 applic TOP Q8 [facility] Last Admin: 11/16/17 00:42 Dose: 1 applic Ergocalciferol (Drisdol 50,000 Intl Units Cap) 1 cap PO Q7D [facility] Last Admin: 11/15/17 16:33 Dose: 1 cap Escitalopram Oxalate (Lexapro) 10 mg PO DAILY [facility] Last Admin: 11/15/17 08:18 Dose: 10 mg Heparin Sodium (Porcine) (Heparin) 5,000 units SC Q12 [facility] PRN Reason: Protocol Last Admin: 11/15/17 20:21 Dose: 5,000 units Insulin Human Regular (Humulin R) 0 units SC ACHS [facility] PRN Reason: Protocol Last Admin: 11/16/17 06:49 Dose: 2 units Lidocaine (Lidoderm) 1 ea TD DAILY [facility] Last Admin: 11/15/17 08:19 Dose: 1 ea Nystatin (Mycostatin Cream) 1 applic TOP 0900,1700,2100 [facility] Last Admin: 11/15/17 20:25 Dose: 1 applic Silver Sulfadiazine (Silvadene 1% 20 Gm) 1 ea TOP DAILY [facility] Last Admin: 11/15/17 09:45 Dose: 1 each Sodium Bicarbonate (Sodium Bicarbonate Tab) 650 mg PO BID [facility] Last Admin: 11/15/17 16:34 Dose: 650 mg - Labs Labs: 11/16/17 05:30 11/16/17 05:30 - Additional Findings Additional findings: - Constitutional Appears: No Acute Distress - ENT Exam ENT Exam: Mucous Membranes Moist - Neck Exam Neck Exam: Normal Inspection - Respiratory Exam Respiratory Exam: Clear to Ausculation Bilateral, NORMAL BREATHING PATTERN. absent: Rales, Rhonchi, Wheezes - Cardiovascular Exam Cardiovascular Exam: REGULAR RHYTHM, RRR, +S1, +S2 - GI/Abdominal Exam GI & Abdominal Exam: Soft, Normal Bowel Sounds. absent: Tenderness - Extremities Exam Additional comments: Has resting tremor on B/L hands. - Neurological Exam Neurological Exam: Alert, Awake, Oriented x3 - Psychiatric Exam Psychiatric exam: Anxious, Depressed Assessment and Plan - Assessment and Plan (Free Text) Assessment: Assessment: 77 yo female with hx of depression, CKD not on HD, chronic ureteral stents, Type II DM, with recurrent admission to [facility] with recurrent sepsis admitted on 10/20/17 for septic shock now resolved and discharged to TCU for PT while awaiting for safe discharge. All the recurrent admissions to [facility] are due to pt's manifestation of depression and possible suicidal gestures. Pt was screened by [facility] twice for involuntary admission but she is not a candidate. Plan: Major Depression 1- Continue with lexapro 10 mg po daily 2- Psych recommendations appreciated 3- Pt was re-screened over the weekend for involuntary admission but has not been accepted. 4- Psychiatry evaluation states pt's has the medical decision making capacity and patient continues to refuse psychiatry admission. Weakness/Deconditioing 1- Continue physical therapy in TCU Multiple ulcers- Continue current management wound care and podiatry on board 1- DTI present on Sacrum, stable 2- R foot: localized erythema (DTI) in plantar aspect of great toe and right heel resolving. 3- L foot: Stage 2 pressure ulcer noted on medial aspect of heel, stable. 4- Will replace Clay every 10 days to prevent UTI- Need for chronic clay because of chronic sacral ulcers and patient being chronically bed bound 5-Podiatry consult appreciated. CKD Stage IV with ureteral stent- Chronic 1- Not on HD - Pt offered Fistula placement and Dialysis but declines at this time 2- Continue to monitor labs weekly 3- Low K+ diet 4- Nephrology and Urology recommendation appreciated Anemia of chronic disease 1- Completed I.V. venofer for 10 days recently 2- Hb is 11.0 3- Monitor CBC Hypertension- Chronic 1- Well controlled Type II DM- Chronic 1- Continue current management DVT prophlaxis 1- Heparin 5000 units SC BID Code status 1- DNR/DNI <Min Woody - Last Filed: 11/17/17 06:42> Objective - Vital Signs/Intake and Output Vital Signs (last 24 hours): Temp Pulse Resp BP Pulse Ox 98.6 F 77 20 121/70 98 11/16/17 21:25 11/16/17 21:25 11/16/17 21:25 11/16/17 21:25 11/16/17 21:25 - Medications Medications: Current Medications Acetaminophen (Tylenol 325mg Tab) 650 mg PO Q4 PRN PRN Reason: Pain, Mild (1-3) Last Admin: 11/15/17 11:18 Dose: 650 mg Aspirin (Ecotrin) 81 mg PO DAILY [facility] Last Admin: 11/16/17 08:03 Dose: 81 mg Atorvastatin Calcium (Lipitor) 40 mg PO DAILY@2100 [facility] Last Admin: 11/16/17 21:36 Dose: 40 mg Dimethicone (Proshield Plus Skin Protectant) 1 applic TOP Q8 [facility] Last Admin: 11/17/17 00:16 Dose: 1 applic Ergocalciferol (Drisdol 50,000 Intl Units Cap) 1 cap PO Q7D [facility] Last Admin: 11/15/17 16:33 Dose: 1 cap Escitalopram Oxalate (Lexapro) 10 mg PO DAILY [facility] Last Admin: 11/16/17 08:03 Dose: 10 mg Heparin Sodium (Porcine) (Heparin) 5,000 units SC Q12 [facility] PRN Reason: Protocol Last Admin: 11/16/17 21:35 Dose: 5,000 units Insulin Human Regular (Humulin R) 0 units SC ACHS [facility] PRN Reason: Protocol Last Admin: 11/16/17 21:35 Dose: Not Given Lidocaine (Lidoderm) 1 ea TD DAILY [facility] Last Admin: 11/16/17 08:02 Dose: 1 ea Nystatin (Mycostatin Cream) 1 applic TOP 0900,1700,2100 [facility] Last Admin: 11/16/17 21:36 Dose: 1 applic Silver Sulfadiazine (Silvadene 1% 20 Gm) 1 ea TOP DAILY [facility] Last Admin: 11/16/17 12:16 Dose: 1 each Sodium Bicarbonate (Sodium Bicarbonate Tab) 650 mg PO BID [facility] Last Admin: 11/16/17 16:30 Dose: 650 mg - Labs Labs: 11/16/17 05:30 11/16/17 05:30 Attending/Attestation - Attestation I have personally seen and examined this patient.: Yes I have fully participated in the care of the patient.: Yes I have reviewed all pertinent clinical information, including history, physical exam and plan: Yes
[2017-11-16] MEDS: Lidocaine 5% Patch TD SCH (08:02)
--- NOTE | 2017-11-16 08:09 | CP.PCM.PN ---
Subjective - Date & Time of Evaluation Date of Evaluation: 11/16/17 Time of Evaluation: 08:09 - Subjective Subjective: Podiatry Progress note: Dr. Conley 77 year old female patient was seen and evaluated in TCU for left heel pressure ulcer on the right heel and deep tissue injury on the left heel. Patient is AAOx3 and is in NAD. Denies any acute overnight events. Denies of any pain to her LE today. Denies any recent F/N/V/C/SOB/CP/headache. No new pedal complains today. Objective - Vital Signs/Intake and Output Vital Signs (last 24 hours): Temp Pulse Resp BP Pulse Ox 99.7 F H 69 20 124/68 98 11/15/17 19:42 11/15/17 19:42 11/15/17 19:42 11/15/17 19:42 11/15/17 19:42 Intake and Output: 11/16/17 11/16/17 06:59 18:59 Intake Total 500 Output Total 2000 Balance -1500 - Medications Medications: Current Medications Acetaminophen (Tylenol 325mg Tab) 650 mg PO Q4 PRN PRN Reason: Pain, Mild (1-3) Last Admin: 11/15/17 11:18 Dose: 650 mg Aspirin (Ecotrin) 81 mg PO DAILY [facility] Last Admin: 11/16/17 08:03 Dose: 81 mg Atorvastatin Calcium (Lipitor) 40 mg PO DAILY@2100 [facility] Last Admin: 11/15/17 20:19 Dose: 40 mg Dimethicone (Proshield Plus Skin Protectant) 1 applic TOP Q8 [facility] Last Admin: 11/16/17 00:42 Dose: 1 applic Ergocalciferol (Drisdol 50,000 Intl Units Cap) 1 cap PO Q7D [facility] Last Admin: 11/15/17 16:33 Dose: 1 cap Escitalopram Oxalate (Lexapro) 10 mg PO DAILY [facility] Last Admin: 11/16/17 08:03 Dose: 10 mg Heparin Sodium (Porcine) (Heparin) 5,000 units SC Q12 [facility] PRN Reason: Protocol Last Admin: 11/16/17 08:03 Dose: 5,000 units Insulin Human Regular (Humulin R) 0 units SC ACHS [facility] PRN Reason: Protocol Last Admin: 11/16/17 06:49 Dose: 2 units Lidocaine (Lidoderm) 1 ea TD DAILY [facility] Last Admin: 11/16/17 08:02 Dose: 1 ea Nystatin (Mycostatin Cream) 1 applic TOP 0900,1700,2100 [facility] Last Admin: 11/15/17 20:25 Dose: 1 applic Silver Sulfadiazine (Silvadene 1% 20 Gm) 1 ea TOP DAILY [facility] Last Admin: 11/15/17 09:45 Dose: 1 each Sodium Bicarbonate (Sodium Bicarbonate Tab) 650 mg PO BID [facility] Last Admin: 11/16/17 08:03 Dose: 650 mg - Labs Labs: 11/16/17 05:30 11/16/17 05:30 - Constitutional Appears: Well, Non-toxic, No Acute Distress - Extremities Exam Additional comments: Bilateral LE focused exam: VASC: DP/PT pulses are palpable 1/4 B/L. Cap refill time: < 3 seconds to all digits. Skin temperature warm to cool from proximal to distal. no pitting or non -pitting edema noted to b/l LE DERM: wound measuring approx. 4.0 cm x 3.5 cm x <0.1 cm at posterior-plantar aspect of the right heel with sloughing superficial epidermal layer extending laterally - the sloughing epidermal layer appears macerated and hyperpigmented due to underlying DTI, mild serous drainage noted with wound base fully granular, mild jatin-wound maceration noted, no tunneling, no probe to bone, no malodor, no jatin-wound erythema, no fluctuance, no clinical suspicion of infection; Deep tissue injury noted on the medial aspect of the 1st MTPJ on the right with hyperpigmented skin layer; deep tissue injury noted on the left posterior lateral heel as well as head of the 5th metatarsal, no clinical suspicion of active infection at any site NEURO: Epicritic and protective sensation mildly diminished ORTHO: no pain on palpation of the wound site - Neurological Exam Neurological Exam: Alert, Awake, Oriented x3 - Psychiatric Exam Psychiatric exam: Normal Affect, Normal Mood Assessment and Plan - Assessment and Plan (Free Text) Assessment: 77 year old female evaluated for 1). Right heel ulcer 2). multiple deep tissue injury all secondary to pressure/bed bound status Plan: Patient seen and evaluated at bedside Discussed plan with attending Dr. Conley Labs, vitals and charts reviewed - afebrile, WBC @ 8.2 Right heel pressure ulcer appears non-infected at this time Ulcer dressed using Silvadene, ABD, 4x4, Kerlix Left heel DTI dressing using optifoam dressing Multipodus boots to be worn at all times while in bed Heel off loading shoes ordered - WBAT in the shoe during therapy IV abx as per ID Medical management as per primary team Podiatry to follow patient while in-house
[2017-11-16] MEDS: Silver Sulfadiazine 1% Cream (20 gm) TOP SCH (12:16)
--- NOTE | 2017-11-16 22:37 | CP.PCM.PN ---
Subjective - Date & Time of Evaluation Date of Evaluation: 11/16/17 Time of Evaluation: 12:00 - Subjective Subjective: Patient reports feeling well; no nausea/vomiting or sob; ambulating slightly; Objective - Vital Signs/Intake and Output Vital Signs (last 24 hours): Temp Pulse Resp BP Pulse Ox 98.6 F 77 20 121/70 98 11/16/17 21:25 11/16/17 21:25 11/16/17 21:25 11/16/17 21:25 11/16/17 21:25 - Medications Medications: Current Medications Acetaminophen (Tylenol 325mg Tab) 650 mg PO Q4 PRN PRN Reason: Pain, Mild (1-3) Last Admin: 11/15/17 11:18 Dose: 650 mg Aspirin (Ecotrin) 81 mg PO DAILY [facility] Last Admin: 11/16/17 08:03 Dose: 81 mg Atorvastatin Calcium (Lipitor) 40 mg PO DAILY@2100 [facility] Last Admin: 11/16/17 21:36 Dose: 40 mg Dimethicone (Proshield Plus Skin Protectant) 1 applic TOP Q8 [facility] Last Admin: 11/16/17 16:32 Dose: 1 applic Ergocalciferol (Drisdol 50,000 Intl Units Cap) 1 cap PO Q7D [facility] Last Admin: 11/15/17 16:33 Dose: 1 cap Escitalopram Oxalate (Lexapro) 10 mg PO DAILY [facility] Last Admin: 11/16/17 08:03 Dose: 10 mg Heparin Sodium (Porcine) (Heparin) 5,000 units SC Q12 [facility] PRN Reason: Protocol Last Admin: 11/16/17 21:35 Dose: 5,000 units Insulin Human Regular (Humulin R) 0 units SC ACHS [facility] PRN Reason: Protocol Last Admin: 11/16/17 21:35 Dose: Not Given Lidocaine (Lidoderm) 1 ea TD DAILY [facility] Last Admin: 11/16/17 08:02 Dose: 1 ea Nystatin (Mycostatin Cream) 1 applic TOP 0900,1700,2100 [facility] Last Admin: 11/16/17 21:36 Dose: 1 applic Silver Sulfadiazine (Silvadene 1% 20 Gm) 1 ea TOP DAILY [facility] Last Admin: 11/16/17 12:16 Dose: 1 each Sodium Bicarbonate (Sodium Bicarbonate Tab) 650 mg PO BID [facility] Last Admin: 11/16/17 16:30 Dose: 650 mg - Labs Labs: 11/16/17 05:30 11/16/17 05:30 - Constitutional Appears: Non-toxic, No Acute Distress - Eye Exam Eye Exam: absent: Scleral icterus - ENT Exam ENT Exam: Mucous Membranes Moist - Respiratory Exam Respiratory Exam: Clear to Ausculation Bilateral. absent: Respiratory Distress - Cardiovascular Exam Cardiovascular Exam: RRR, +S1, +S2 - GI/Abdominal Exam GI & Abdominal Exam: Soft. absent: Distended, Tenderness - Exam Exam: absent: Bladder Distension - Extremities Exam Additional comments: minimal leg edema; - Neurological Exam Neurological Exam: Alert, Awake - Psychiatric Exam Psychiatric exam: absent: Agitated - Skin Skin Exam: Warm. absent: Cyanosis Assessment and Plan (1) Chronic kidney disease (CKD), stage IV (severe) Assessment & Plan: Relatively stable renal function; euvolemic on exam; mild metabolic acidosis and increased azotemia noted; serum albumin low but has increased significantly ; agree with cutting back dietary supplements to just once a day to avoid protein calorie excess that is likely contributing to the azotemia and acidosis; -continue with sodium bicarb 650 mg bid; should monitor as outpatient with goal serum bicarb of 22-24 meq; -continue to scholarship counselor regarding need for AVF creation; Status: Chronic (2) Anemia Assessment & Plan: Hgb above goal, EPO stopped; need to monitor as outpatient and restart EPO at lower dose once hgb drops to close to 10 g; Status: Acute (3) UTI (urinary tract infection) Status: Resolved (4) Hypertension Assessment & Plan: Not on BP meds, continue to hold as patient is normotensive; Status: Chronic (5) Hyperkalemia Assessment & Plan: Resolved; Continue to keep on low K diet; Status: Resolved (6) Metabolic acidosis Status: Acute
[2017-11-17] MEDS: Proshield Plus GEL TOP SCH ×3 (00:16→17:19)
[2017-11-17] MEDS: Insulin Regular 100 units/ml SC SCH ×4 (06:53→21:47)
--- NOTE | 2017-11-17 07:53 | CP.PCM.PN ---
Subjective - Date & Time of Evaluation Date of Evaluation: 11/17/17 Time of Evaluation: 07:53 - Subjective Subjective: Podiatry Progress note: Dr. Conley 77 year old female patient was seen and evaluated in TCU for left heel pressure ulcer on the right heel and deep tissue injury on the left heel. Patient is AAOx3 and is in NAD. Denies of any pain to her LE today. Denies any acute overnight events. Denies any recent F/N/V/C/SOB/CP/headache. No new pedal complains today. Objective - Vital Signs/Intake and Output Vital Signs (last 24 hours): Temp Pulse Resp BP Pulse Ox 98.6 F 77 20 121/70 98 11/16/17 21:25 11/16/17 21:25 11/16/17 21:25 11/16/17 21:25 11/16/17 21:25 Intake and Output: 11/17/17 11/17/17 06:59 18:59 Output Total 1100 Balance -1100 - Medications Medications: Current Medications Acetaminophen (Tylenol 325mg Tab) 650 mg PO Q4 PRN PRN Reason: Pain, Mild (1-3) Last Admin: 11/15/17 11:18 Dose: 650 mg Aspirin (Ecotrin) 81 mg PO DAILY [facility] Last Admin: 11/16/17 08:03 Dose: 81 mg Atorvastatin Calcium (Lipitor) 40 mg PO DAILY@2100 [facility] Last Admin: 11/16/17 21:36 Dose: 40 mg Dimethicone (Proshield Plus Skin Protectant) 1 applic TOP Q8 [facility] Last Admin: 11/17/17 00:16 Dose: 1 applic Ergocalciferol (Drisdol 50,000 Intl Units Cap) 1 cap PO Q7D [facility] Last Admin: 11/15/17 16:33 Dose: 1 cap Escitalopram Oxalate (Lexapro) 10 mg PO DAILY [facility] Last Admin: 11/16/17 08:03 Dose: 10 mg Heparin Sodium (Porcine) (Heparin) 5,000 units SC Q12 [facility] PRN Reason: Protocol Last Admin: 11/16/17 21:35 Dose: 5,000 units Insulin Human Regular (Humulin R) 0 units SC ACHS [facility] PRN Reason: Protocol Last Admin: 11/17/17 06:53 Dose: 2 units Lidocaine (Lidoderm) 1 ea TD DAILY [facility] Last Admin: 11/16/17 08:02 Dose: 1 ea Nystatin (Mycostatin Cream) 1 applic TOP 0900,1700,2100 [facility] Last Admin: 11/16/17 21:36 Dose: 1 applic Silver Sulfadiazine (Silvadene 1% 20 Gm) 1 ea TOP DAILY [facility] Last Admin: 11/16/17 12:16 Dose: 1 each Sodium Bicarbonate (Sodium Bicarbonate Tab) 650 mg PO BID [facility] Last Admin: 11/16/17 16:30 Dose: 650 mg - Labs Labs: 11/16/17 05:30 11/16/17 05:30 - Constitutional Appears: Well, Non-toxic, No Acute Distress - Extremities Exam Additional comments: Bilateral LE focused exam: VASC: DP/PT pulses are palpable 1/4 B/L. Cap refill time: < 3 seconds to all digits. Skin temperature warm to cool from proximal to distal. no pitting or non -pitting edema noted to b/l LE DERM: wound measuring approx. 4.0 cm x 3.5 cm x <0.1 cm at posterior-plantar aspect of the right heel with sloughing superficial epidermal layer extending laterally - the sloughing epidermal layer appears macerated and hyperpigmented due to underlying DTI, mild serous drainage noted with wound base fully granular, mild jatin-wound maceration noted, no tunneling, no probe to bone, no malodor, no jatin-wound erythema, no fluctuance, no clinical suspicion of infection; Deep tissue injury noted on the medial aspect of the 1st MTPJ on the right with hyperpigmented skin layer; deep tissue injury noted on the left posterior lateral heel as well as head of the 5th metatarsal, no clinical suspicion of active infection at any site NEURO: Epicritic and protective sensation mildly diminished ORTHO: no pain on palpation of the wound site - Neurological Exam Neurological Exam: Alert, Awake, Oriented x3 - Psychiatric Exam Psychiatric exam: Normal Affect, Normal Mood Assessment and Plan - Assessment and Plan (Free Text) Assessment: 77 year old female evaluated for 1). Right heel ulcer 2). multiple deep tissue injury all secondary to pressure/bed bound status Plan: Patient seen and evaluated at bedside Discussed plan with attending Dr. Conley Labs, vitals and charts reviewed - afebrile, WBC @ 8.2 as of yesterday Right heel pressure ulcer appears non-infected at this time Ulcer dressed using Silvadene, ABD, 4x4, Kerlix Left heel DTI dressing using optifoam dressing Multipodus boots to be worn at all times while in bed Heel off loading shoes ordered - WBAT in the shoe during therapy IV abx as per ID Medical management as per primary team Podiatry to follow patient while in-house
[2017-11-17] MEDS: Lidocaine 5% Patch TD SCH (08:35)
[2017-11-17] MEDS: Silver Sulfadiazine 1% Cream (20 gm) TOP SCH (08:41)
--- NOTE | 2017-11-17 11:11 | CP.PCM.PN ---
<Sultan Jerry - Last Filed: 11/17/17 11:08> Subjective - Date & Time of Evaluation Date of Evaluation: 11/17/17 Time of Evaluation: 07:30 - Subjective Subjective: Patient seen and examined at bedside in the morning. No acute overnight events. Pt is eating and drinking normally. States she is doing fine. Reports she is doing better with PT. Has Lcay in place. Denies any cough, chest pain, dyspnea , abdominal pain, headache, dizziness, fever or chills. Objective - Vital Signs/Intake and Output Vital Signs (last 24 hours): Temp Pulse Resp BP Pulse Ox 98.6 F 77 20 121/70 98 11/16/17 21:25 11/16/17 21:25 11/16/17 21:25 11/16/17 21:25 11/16/17 21:25 Intake and Output: 11/17/17 11/17/17 06:59 18:59 Output Total 1100 Balance -1100 - Medications Medications: Current Medications Acetaminophen (Tylenol 325mg Tab) 650 mg PO Q4 PRN PRN Reason: Pain, Mild (1-3) Last Admin: 11/15/17 11:18 Dose: 650 mg Aspirin (Ecotrin) 81 mg PO DAILY [facility] Last Admin: 11/17/17 08:34 Dose: 81 mg Atorvastatin Calcium (Lipitor) 40 mg PO DAILY@2100 [facility] Last Admin: 11/16/17 21:36 Dose: 40 mg Dimethicone (Proshield Plus Skin Protectant) 1 applic TOP Q8 [facility] Last Admin: 11/17/17 08:41 Dose: 1 applic Ergocalciferol (Drisdol 50,000 Intl Units Cap) 1 cap PO Q7D [facility] Last Admin: 11/15/17 16:33 Dose: 1 cap Escitalopram Oxalate (Lexapro) 10 mg PO DAILY [facility] Last Admin: 11/17/17 08:34 Dose: 10 mg Heparin Sodium (Porcine) (Heparin) 5,000 units SC Q12 [facility] PRN Reason: Protocol Last Admin: 11/17/17 08:34 Dose: 5,000 units Insulin Human Regular (Humulin R) 0 units SC ACHS [facility] PRN Reason: Protocol Last Admin: 11/17/17 06:53 Dose: 2 units Lidocaine (Lidoderm) 1 ea TD DAILY [facility] Last Admin: 11/17/17 08:35 Dose: 1 ea Nystatin (Mycostatin Cream) 1 applic TOP 0900,1700,2100 [facility] Last Admin: 11/17/17 08:42 Dose: 1 applic Silver Sulfadiazine (Silvadene 1% 20 Gm) 1 ea TOP DAILY [facility] Last Admin: 11/17/17 08:41 Dose: 1 each Sodium Bicarbonate (Sodium Bicarbonate Tab) 650 mg PO BID [facility] Last Admin: 11/17/17 08:34 Dose: 650 mg - Labs Labs: 11/16/17 05:30 11/16/17 05:30 - Additional Findings Additional findings: - Constitutional Appears: No Acute Distress - ENT Exam ENT Exam: Mucous Membranes Moist - Neck Exam Neck Exam: Normal Inspection - Respiratory Exam Respiratory Exam: Clear to Ausculation Bilateral, NORMAL BREATHING PATTERN. absent: Rales, Rhonchi, Wheezes - Cardiovascular Exam Cardiovascular Exam: REGULAR RHYTHM, RRR, +S1, +S2 - GI/Abdominal Exam GI & Abdominal Exam: Soft, Normal Bowel Sounds. absent: Tenderness - Extremities Exam Additional comments: Has resting tremor on B/L hands. - Neurological Exam Neurological Exam: Alert, Awake, Oriented x3 - Psychiatric Exam Psychiatric exam: Anxious, Depressed Assessment and Plan - Assessment and Plan (Free Text) Assessment: 77 yo female with hx of depression, CKD not on HD, chronic ureteral stents, Type II DM, with recurrent admission to [facility] with recurrent sepsis admitted on 10/20/17 for septic shock now resolved and discharged to TCU for PT while awaiting for safe discharge. All the recurrent admissions to [facility] are due to pt's manifestation of depression and possible suicidal gestures. Pt was screened by [facility] twice for involuntary admission but she is not a candidate. Per psychiatry evaluation, pt has medical decision making capacity. Plan: Major Depression 1- Continue with lexapro 10 mg po daily 2- Psych recommendations appreciated 3- Pt was re-screened over the weekend for involuntary admission but has not been accepted. 4- Psychiatry evaluation states pt's has the medical decision making capacity and patient continues to refuse psychiatry admission. Weakness/Deconditioing 1- Continue physical therapy in TCU Multiple ulcers- Continue current management wound care and podiatry on board 1- DTI present on Sacrum, stable 2- R foot: localized erythema (DTI) in plantar aspect of great toe and right heel resolving. 3- L foot: Stage 2 pressure ulcer noted on medial aspect of heel, stable. 4- Will replace Clay every 10 days to prevent UTI- Need for chronic clay because of chronic sacral ulcers and patient being chronically bed bound 5-Podiatry consult appreciated. CKD Stage IV with ureteral stent- Chronic 1- Not on HD - Pt offered Fistula placement and Dialysis but declines at this time 2- Continue to monitor labs weekly 3- Low K+ diet 4- Nephrology and Urology recommendation appreciated Anemia of chronic disease 1- Completed I.V. venofer for 10 days recently 2- Hb is 11.0 3- Monitor CBC Hypertension- Chronic 1- Well controlled Type II DM- Chronic 1- Continue current management DVT prophlaxis 1- Heparin 5000 units SC BID Code status 1- DNR/DNI <Min Woody - Last Filed: 11/20/17 07:04> Objective - Vital Signs/Intake and Output Vital Signs (last 24 hours): Temp Pulse Resp BP Pulse Ox 98.2 F 70 20 124/66 99 11/19/17 19:44 11/19/17 19:44 11/19/17 19:44 11/19/17 19:44 11/19/17 19:44 Intake and Output: 11/20/17 11/20/17 06:59 18:59 Output Total 1350 Balance -1350 - Medications Medications: Current Medications Acetaminophen (Tylenol 325mg Tab) 650 mg PO Q4 PRN PRN Reason: Pain, Mild (1-3) Last Admin: 11/15/17 11:18 Dose: 650 mg Aspirin (Ecotrin) 81 mg PO DAILY [facility] Last Admin: 11/19/17 09:15 Dose: 81 mg Atorvastatin Calcium (Lipitor) 40 mg PO DAILY@2100 [facility] Last Admin: 11/19/17 21:14 Dose: 40 mg Dimethicone (Proshield Plus Skin Protectant) 1 applic TOP Q8 [facility] Last Admin: 11/20/17 00:02 Dose: 1 applic Ergocalciferol (Drisdol 50,000 Intl Units Cap) 1 cap PO Q7D [facility] Last Admin: 11/15/17 16:33 Dose: 1 cap Escitalopram Oxalate (Lexapro) 10 mg PO DAILY [facility] Last Admin: 11/19/17 09:15 Dose: 10 mg Heparin Sodium (Porcine) (Heparin) 5,000 units SC Q12 [facility] PRN Reason: Protocol Last Admin: 11/19/17 21:15 Dose: 5,000 units Insulin Human Regular (Humulin R) 0 units SC ACHS [facility] PRN Reason: Protocol Last Admin: 11/20/17 06:42 Dose: 3 units Lidocaine (Lidoderm) 1 ea TD DAILY [facility] Last Admin: 11/19/17 09:14 Dose: 1 ea Nystatin (Mycostatin Cream) 1 applic TOP 0900,1700,2100 [facility] Last Admin: 11/19/17 21:18 Dose: 1 applic Silver Sulfadiazine (Silvadene 1% 20 Gm) 1 ea TOP DAILY [facility] Last Admin: 11/19/17 09:16 Dose: 1 each Sodium Bicarbonate (Sodium Bicarbonate Tab) 650 mg PO BID [facility] Last Admin: 11/19/17 16:54 Dose: 650 mg - Labs Labs: 11/16/17 05:30 11/16/17 05:30 Attending/Attestation - Attestation I have personally seen and examined this patient.: Yes I have fully participated in the care of the patient.: Yes I have reviewed all pertinent clinical information, including history, physical exam and plan: Yes
[2017-11-18] MEDS: Proshield Plus GEL TOP SCH ×3 (02:00→16:28)
[2017-11-18] MEDS: Insulin Regular 100 units/ml SC SCH ×4 (07:10→21:03)
[2017-11-18 08:15] VITALS: RESP 20
[2017-11-18] MEDS: Lidocaine 5% Patch TD SCH (08:35)
[2017-11-18] MEDS: Silver Sulfadiazine 1% Cream (20 gm) TOP SCH (12:00)
--- NOTE | 2017-11-18 16:41 | CP.PCM.PN ---
<Merry Manning - Last Filed: 11/18/17 16:39> Subjective - Date & Time of Evaluation Date of Evaluation: 11/18/17 Time of Evaluation: 09:00 - Subjective Subjective: Podiatry Progress note: Dr. Conley 77 year old female patient was seen and evaluated in TCU for left heel pressure ulcer on the right heel and deep tissue injury on the left heel. Patient resting in bed comfortably, hemodynamically stable and NAD. No acute events overnight. Reports minimal pain to right heel wound; offers no complaints to left heel. Dressings to bilateral feet remain clean/dry/intact with multipodus boots present bilaterally. Denies N/V/F/D/C/SOB/[place]. Offers no other complaints. Objective - Vital Signs/Intake and Output Vital Signs (last 24 hours): Temp Pulse Resp BP Pulse Ox 98.2 F 75 20 122/73 100 11/18/17 15:49 11/18/17 15:49 11/18/17 15:49 11/18/17 15:49 11/18/17 15:49 Intake and Output: 11/18/17 11/18/17 06:59 18:59 Intake Total 400 Output Total 1200 Balance -800 - Medications Medications: Current Medications Acetaminophen (Tylenol 325mg Tab) 650 mg PO Q4 PRN PRN Reason: Pain, Mild (1-3) Last Admin: 11/15/17 11:18 Dose: 650 mg Aspirin (Ecotrin) 81 mg PO DAILY [facility] Last Admin: 11/18/17 08:36 Dose: 81 mg Atorvastatin Calcium (Lipitor) 40 mg PO DAILY@2100 [facility] Last Admin: 11/17/17 21:48 Dose: 40 mg Dimethicone (Proshield Plus Skin Protectant) 1 applic TOP Q8 [facility] Last Admin: 11/18/17 16:28 Dose: 1 applic Ergocalciferol (Drisdol 50,000 Intl Units Cap) 1 cap PO Q7D [facility] Last Admin: 11/15/17 16:33 Dose: 1 cap Escitalopram Oxalate (Lexapro) 10 mg PO DAILY [facility] Last Admin: 11/18/17 08:36 Dose: 10 mg Heparin Sodium (Porcine) (Heparin) 5,000 units SC Q12 [facility] PRN Reason: Protocol Last Admin: 11/18/17 08:36 Dose: 5,000 units Insulin Human Regular (Humulin R) 0 units SC ACHS [facility] PRN Reason: Protocol Last Admin: 11/18/17 16:26 Dose: 2 units Lidocaine (Lidoderm) 1 ea TD DAILY [facility] Last Admin: 11/18/17 08:35 Dose: 1 ea Nystatin (Mycostatin Cream) 1 applic TOP 0900,1700,2100 [facility] Last Admin: 11/18/17 16:28 Dose: 1 applic Silver Sulfadiazine (Silvadene 1% 20 Gm) 1 ea TOP DAILY [facility] Last Admin: 11/18/17 12:00 Dose: 1 each Sodium Bicarbonate (Sodium Bicarbonate Tab) 650 mg PO BID [facility] Last Admin: 11/18/17 16:26 Dose: 650 mg - Labs Labs: 11/16/17 05:30 11/16/17 05:30 - Constitutional Appears: Well, Non-toxic, No Acute Distress - Extremities Exam Additional comments: Bilateral LE focused exam: VASC: DP/PT pulses are palpable 1/4 B/L. Cap refill time: < 3 seconds to all digits. Skin temperature warm to cool from proximal to distal. no pitting or non -pitting edema noted to b/l LE DERM: wound measuring approx. 4.0 cm x 3.5 cm x <0.1 cm at posterior-plantar aspect of the right heel with sloughing superficial epidermal layer extending laterally - the sloughing epidermal layer appears macerated and hyperpigmented due to underlying DTI, mild serous drainage noted with wound base fully granular, mild jatin-wound maceration noted, no tunneling, no probe to bone, no malodor, no jatin-wound erythema, no fluctuance, no clinical suspicion of infection; Deep tissue injury noted on the medial aspect of the 1st MTPJ on the right with hyperpigmented skin layer; deep tissue injury noted on the left posterior lateral heel as well as head of the 5th metatarsal, no clinical suspicion of active infection at any site NEURO: Epicritic and protective sensation mildly diminished ORTHO: Minimal pain on palpation of the wound site - Neurological Exam Neurological Exam: Alert, Awake, Oriented x3 - Psychiatric Exam Psychiatric exam: Normal Affect, Normal Mood Assessment and Plan - Assessment and Plan (Free Text) Assessment: 77 year old female evaluated for 1) Right heel ulcer 2) multiple deep tissue injury all secondary to pressure/bed bound status Plan: Patient seen and evaluated at bedside with attending Dr. Conley Afebrile To clinical signs of infection noted to right heel ulcer Continue local wound care: R foot = Silvadene, DSD/L foot = Allevyn pad Multipodus boots to be worn at all times while in bed Heel off loading shoes ordered - WBAT in the shoe during therapy IV abx as per ID Medical management as per primary team Podiatry will conitnue to follow <Geronimo Conley - Last Filed: 11/19/17 13:04> Objective - Vital Signs/Intake and Output Vital Signs (last 24 hours): Temp Pulse Resp BP Pulse Ox 98.1 F 78 20 125/73 98 11/19/17 08:00 11/19/17 08:00 11/19/17 08:00 11/19/17 08:00 11/19/17 08:00 - Medications Medications: Current Medications Acetaminophen (Tylenol 325mg Tab) 650 mg PO Q4 PRN PRN Reason: Pain, Mild (1-3) Last Admin: 11/15/17 11:18 Dose: 650 mg Aspirin (Ecotrin) 81 mg PO DAILY [facility] Last Admin: 11/19/17 09:15 Dose: 81 mg Atorvastatin Calcium (Lipitor) 40 mg PO DAILY@2100 [facility] Last Admin: 11/18/17 20:48 Dose: 40 mg Dimethicone (Proshield Plus Skin Protectant) 1 applic TOP Q8 [facility] Last Admin: 11/19/17 09:17 Dose: 1 applic Ergocalciferol (Drisdol 50,000 Intl Units Cap) 1 cap PO Q7D [facility] Last Admin: 11/15/17 16:33 Dose: 1 cap Escitalopram Oxalate (Lexapro) 10 mg PO DAILY [facility] Last Admin: 11/19/17 09:15 Dose: 10 mg Heparin Sodium (Porcine) (Heparin) 5,000 units SC Q12 [facility] PRN Reason: Protocol Last Admin: 11/19/17 09:14 Dose: 5,000 units Insulin Human Regular (Humulin R) 0 units SC ACHS [facility] PRN Reason: Protocol Last Admin: 11/19/17 12:11 Dose: 3 units Lidocaine (Lidoderm) 1 ea TD DAILY [facility] Last Admin: 11/19/17 09:14 Dose: 1 ea Nystatin (Mycostatin Cream) 1 applic TOP 0900,1700,2100 [facility] Last Admin: 11/19/17 09:16 Dose: 1 applic Silver Sulfadiazine (Silvadene 1% 20 Gm) 1 ea TOP DAILY [facility] Last Admin: 11/19/17 09:16 Dose: 1 each Sodium Bicarbonate (Sodium Bicarbonate Tab) 650 mg PO BID [facility] Last Admin: 11/19/17 09:15 Dose: 650 mg - Labs Labs: 11/16/17 05:30 11/16/17 05:30 Assessment and Plan - Assessment and Plan (Free Text) Plan: pt was seen at bedside with resident .agree with above note .Chart and labs reviewed . continue current local wound care /Dr Ismael Conley 11/18/!8
[2017-11-19] MEDS: Proshield Plus GEL TOP SCH ×3 (00:13→16:54)
[2017-11-19] MEDS: Insulin Regular 100 units/ml SC SCH ×4 (07:31→21:17)
[2017-11-19] MEDS: Lidocaine 5% Patch TD SCH (09:14)
[2017-11-19] MEDS: Silver Sulfadiazine 1% Cream (20 gm) TOP SCH (09:16)
--- NOTE | 2017-11-19 11:05 | CP.PCM.PN ---
Subjective - Date & Time of Evaluation Date of Evaluation: 11/19/17 Time of Evaluation: 11:05 - Subjective Subjective: Podiatry Progress note: Dr. Conley 77 year old female patient was seen and evaluated in TCU for left heel pressure ulcer on the right heel and deep tissue injury on the left heel. Patient resting in bed comfortably, hemodynamically stable and NAD. No acute events overnight. Family member present at bedside. Endorses mild pain to right heel today; offers no complaints to left heel. Dressings remain clean/dry/intact with multipodus boots present. Denies N/V/F/D/C/SOB/[place]. Offers no other complaints. Objective - Vital Signs/Intake and Output Vital Signs (last 24 hours): Temp Pulse Resp BP Pulse Ox 98.1 F 78 20 125/73 98 11/19/17 08:00 11/19/17 08:00 11/19/17 08:00 11/19/17 08:00 11/19/17 08:00 - Medications Medications: Current Medications Acetaminophen (Tylenol 325mg Tab) 650 mg PO Q4 PRN PRN Reason: Pain, Mild (1-3) Last Admin: 11/15/17 11:18 Dose: 650 mg Aspirin (Ecotrin) 81 mg PO DAILY [facility] Last Admin: 11/19/17 09:15 Dose: 81 mg Atorvastatin Calcium (Lipitor) 40 mg PO DAILY@2100 [facility] Last Admin: 11/18/17 20:48 Dose: 40 mg Dimethicone (Proshield Plus Skin Protectant) 1 applic TOP Q8 [facility] Last Admin: 11/19/17 09:17 Dose: 1 applic Ergocalciferol (Drisdol 50,000 Intl Units Cap) 1 cap PO Q7D [facility] Last Admin: 11/15/17 16:33 Dose: 1 cap Escitalopram Oxalate (Lexapro) 10 mg PO DAILY [facility] Last Admin: 11/19/17 09:15 Dose: 10 mg Heparin Sodium (Porcine) (Heparin) 5,000 units SC Q12 [facility] PRN Reason: Protocol Last Admin: 11/19/17 09:14 Dose: 5,000 units Insulin Human Regular (Humulin R) 0 units SC ACHS [facility] PRN Reason: Protocol Last Admin: 11/19/17 07:31 Dose: 3 units Lidocaine (Lidoderm) 1 ea TD DAILY [facility] Last Admin: 11/19/17 09:14 Dose: 1 ea Nystatin (Mycostatin Cream) 1 applic TOP 0900,1700,2100 [facility] Last Admin: 11/19/17 09:16 Dose: 1 applic Silver Sulfadiazine (Silvadene 1% 20 Gm) 1 ea TOP DAILY [facility] Last Admin: 11/19/17 09:16 Dose: 1 each Sodium Bicarbonate (Sodium Bicarbonate Tab) 650 mg PO BID [facility] Last Admin: 11/19/17 09:15 Dose: 650 mg - Labs Labs: 11/16/17 05:30 11/16/17 05:30 - Constitutional Appears: Well, Non-toxic, No Acute Distress - Extremities Exam Additional comments: Bilateral LE focused exam: VASC: DP/PT pulses are palpable 1/4 B/L. Cap refill time: < 3 seconds to all digits. Skin temperature warm to cool from proximal to distal. no pitting or non -pitting edema noted to b/l LE DERM: wound measuring approx. 4.0 cm x 3.5 cm x <0.1 cm at posterior-plantar aspect of the right heel with sloughing superficial epidermal layer extending laterally - the sloughing epidermal layer appears macerated and hyperpigmented due to underlying DTI, mild serous drainage noted with wound base fully granular, mild jatin-wound maceration noted, no tunneling, no probe to bone, no malodor, no jatin-wound erythema, no fluctuance, no clinical suspicion of infection; Deep tissue injury noted on the medial aspect of the 1st MTPJ on the right with hyperpigmented skin layer; deep tissue injury noted on the left posterior lateral heel as well as head of the 5th metatarsal, no clinical suspicion of active infection at any site NEURO: Epicritic and protective sensation mildly diminished ORTHO: Minimal pain on palpation of the wound site - Neurological Exam Neurological Exam: Alert, Awake, Oriented x3 - Psychiatric Exam Psychiatric exam: Normal Affect, Normal Mood Assessment and Plan - Assessment and Plan (Free Text) Assessment: 77 year old female evaluated for 1) Right heel ulcer 2) multiple deep tissue injury all secondary to pressure/bed bound status Plan: Patient seen and evaluated at bedside Discussed with attending Dr. Conley Afangel No clinical signs of infection noted to right heel ulcer Continue local wound care: R foot = Silvadene, DSD/L foot = Allevyn pad Multipodus boots to be worn at all times while in bed Heel off loading shoes ordered - WBAT in the shoe during therapy IV abx as per ID Medical management as per primary team Patient to follow up with Dr. Conley in the wound care center upon discharge Podiatry will conitnue to follow
[2017-11-20] MEDS: Proshield Plus GEL TOP SCH ×3 (00:02→16:55)
[2017-11-20] MEDS: Insulin Regular 100 units/ml SC SCH ×4 (06:42→21:19)
[2017-11-20] MEDS: Lidocaine 5% Patch TD SCH (08:21)
[2017-11-20] MEDS: Silver Sulfadiazine 1% Cream (20 gm) TOP SCH (08:22)
--- NOTE | 2017-11-20 09:23 | CP.PCM.PN ---
Subjective - Date & Time of Evaluation Date of Evaluation: 11/20/17 Time of Evaluation: 09:21 - Subjective Subjective: Podiatry Progress note: Dr. Conley 77 year old female patient was seen and evaluated in TCU for left heel pressure ulcer on the right heel and deep tissue injury on the left heel. Patient resting in bed comfortably, hemodynamically stable and NAD. No acute events overnight. Dressings remain clean/dry/intact with multipodus boots present. Denies N/V/F/D/C/SOB/[place]AU. Offers no other complaints. Objective - Vital Signs/Intake and Output Vital Signs (last 24 hours): Temp Pulse Resp BP Pulse Ox 97.9 F 67 20 126/67 96 11/20/17 08:03 11/20/17 08:03 11/20/17 08:03 11/20/17 08:03 11/20/17 08:03 Intake and Output: 11/20/17 11/20/17 06:59 18:59 Output Total 1350 Balance -1350 - Medications Medications: Current Medications Acetaminophen (Tylenol 325mg Tab) 650 mg PO Q4 PRN PRN Reason: Pain, Mild (1-3) Last Admin: 11/15/17 11:18 Dose: 650 mg Aspirin (Ecotrin) 81 mg PO DAILY [facility] Last Admin: 11/20/17 08:20 Dose: 81 mg Atorvastatin Calcium (Lipitor) 40 mg PO DAILY@2100 [facility] Last Admin: 11/19/17 21:14 Dose: 40 mg Dimethicone (Proshield Plus Skin Protectant) 1 applic TOP Q8 [facility] Last Admin: 11/20/17 08:23 Dose: 1 applic Ergocalciferol (Drisdol 50,000 Intl Units Cap) 1 cap PO Q7D [facility] Last Admin: 11/15/17 16:33 Dose: 1 cap Escitalopram Oxalate (Lexapro) 10 mg PO DAILY [facility] Last Admin: 11/20/17 08:21 Dose: 10 mg Heparin Sodium (Porcine) (Heparin) 5,000 units SC Q12 [facility] PRN Reason: Protocol Last Admin: 11/20/17 08:20 Dose: 5,000 units Insulin Human Regular (Humulin R) 0 units SC ACHS [facility] PRN Reason: Protocol Last Admin: 11/20/17 06:42 Dose: 3 units Lidocaine (Lidoderm) 1 ea TD DAILY [facility] Last Admin: 11/20/17 08:21 Dose: 1 ea Nystatin (Mycostatin Cream) 1 applic TOP 0900,1700,2100 [facility] Last Admin: 11/20/17 08:23 Dose: 1 applic Silver Sulfadiazine (Silvadene 1% 20 Gm) 1 ea TOP DAILY [facility] Last Admin: 11/20/17 08:22 Dose: 1 each Sodium Bicarbonate (Sodium Bicarbonate Tab) 650 mg PO BID [facility] Last Admin: 11/20/17 08:20 Dose: 650 mg - Labs Labs: 11/16/17 05:30 11/16/17 05:30 - Constitutional Appears: Well, Non-toxic, No Acute Distress - Extremities Exam Additional comments: Bilateral LE focused exam: VASC: DP/PT pulses are palpable 1/4 B/L. Cap refill time: < 3 seconds to all digits. Skin temperature warm to cool from proximal to distal. no pitting or non -pitting edema noted to b/l LE DERM: wound measuring approx. 4.0 cm x 3.5 cm x <0.1 cm at posterior-plantar aspect of the right heel with sloughing superficial epidermal layer extending laterally - the sloughing epidermal layer appears macerated and hyperpigmented due to underlying DTI, mild serous drainage noted with wound base fully granular, mild jatin-wound maceration noted, no tunneling, no probe to bone, no malodor, no jatin-wound erythema, no fluctuance, no clinical suspicion of infection; Deep tissue injury noted on the medial aspect of the 1st MTPJ on the right with hyperpigmented skin layer; deep tissue injury noted on the left posterior lateral heel as well as head of the 5th metatarsal, no clinical suspicion of active infection at any site NEURO: Epicritic and protective sensation mildly diminished ORTHO: Minimal pain on palpation of the wound site - Neurological Exam Neurological Exam: Alert, Awake, Oriented x3 - Psychiatric Exam Psychiatric exam: Normal Affect, Normal Mood Assessment and Plan - Assessment and Plan (Free Text) Assessment: 77 year old female evaluated for 1) Right heel ulcer 2) multiple deep tissue injury all secondary to pressure/bed bound status Plan: Patient seen and evaluated Discussed with attending Dr. Yael Beaulieu No clinical signs of infection noted to right heel ulcer Continue local wound care: R foot = Silvadene, DSD/L foot = Allevyn pad Multipodus boots to be worn at all times while in bed Heel off loading shoes ordered - WBAT in the shoe during therapy IV abx as per ID Medical management as per primary team Patient is stable from podiatry standpoint - follow up with Dr. Conley in the wound care center upon discharge Podiatry will conitnue to follow
--- NOTE | 2017-11-20 10:56 | CP.PCM.PN ---
<NaplesSultan - Last Filed: 11/20/17 15:59> Subjective - Date & Time of Evaluation Date of Evaluation: 11/20/17 Time of Evaluation: 07:10 - Subjective Subjective: Patient seen and examined at bedside in the morning. No acute overnight events. Pt is eating and drinking normally. States she is doing fine. Reports she is doing better with PT. Has Clay in place. Denies any cough, chest pain, dyspnea , abdominal pain, headache, dizziness, fever or chills. Pt agrees to go to [facility] today when she spoke with [employer] representative Ms Yin Clemons. Objective - Vital Signs/Intake and Output Vital Signs (last 24 hours): Temp Pulse Resp BP Pulse Ox 97.9 F 67 20 126/67 96 11/20/17 08:03 11/20/17 08:03 11/20/17 08:03 11/20/17 08:03 11/20/17 08:03 Intake and Output: 11/20/17 11/20/17 06:59 18:59 Output Total 1350 Balance -1350 - Medications Medications: Current Medications Acetaminophen (Tylenol 325mg Tab) 650 mg PO Q4 PRN PRN Reason: Pain, Mild (1-3) Last Admin: 11/15/17 11:18 Dose: 650 mg Aspirin (Ecotrin) 81 mg PO DAILY [facility] Last Admin: 11/20/17 08:20 Dose: 81 mg Atorvastatin Calcium (Lipitor) 40 mg PO DAILY@2100 [facility] Last Admin: 11/19/17 21:14 Dose: 40 mg Dimethicone (Proshield Plus Skin Protectant) 1 applic TOP Q8 [facility] Last Admin: 11/20/17 08:23 Dose: 1 applic Ergocalciferol (Drisdol 50,000 Intl Units Cap) 1 cap PO Q7D [facility] Last Admin: 11/15/17 16:33 Dose: 1 cap Escitalopram Oxalate (Lexapro) 10 mg PO DAILY [facility] Last Admin: 11/20/17 08:21 Dose: 10 mg Heparin Sodium (Porcine) (Heparin) 5,000 units SC Q12 [facility] PRN Reason: Protocol Last Admin: 11/20/17 08:20 Dose: 5,000 units Insulin Human Regular (Humulin R) 0 units SC ACHS [facility] PRN Reason: Protocol Last Admin: 11/20/17 06:42 Dose: 3 units Lidocaine (Lidoderm) 1 ea TD DAILY [facility] Last Admin: 11/20/17 08:21 Dose: 1 ea Nystatin (Mycostatin Cream) 1 applic TOP 0900,1700,2100 [facility] Last Admin: 11/20/17 08:23 Dose: 1 applic Silver Sulfadiazine (Silvadene 1% 20 Gm) 1 ea TOP DAILY [facility] Last Admin: 11/20/17 08:22 Dose: 1 each Sodium Bicarbonate (Sodium Bicarbonate Tab) 650 mg PO BID [facility] Last Admin: 11/20/17 08:20 Dose: 650 mg - Labs Labs: 11/16/17 05:30 11/16/17 05:30 - Additional Findings Additional findings: - Constitutional Appears: No Acute Distress - ENT Exam ENT Exam: Mucous Membranes Moist - Neck Exam Neck Exam: Normal Inspection - Respiratory Exam Respiratory Exam: Clear to Auscultation Bilateral, NORMAL BREATHING PATTERN. absent: Rales, Rhonchi, Wheezes - Cardiovascular Exam Cardiovascular Exam: REGULAR RHYTHM, RRR, +S1, +S2 - GI/Abdominal Exam GI & Abdominal Exam: Soft, Normal Bowel Sounds. absent: Tenderness - Extremities Exam Additional comments: Has resting tremor on B/L hands. - Neurological Exam Neurological Exam: Alert, Awake, Oriented x3 - Psychiatric Exam Psychiatric exam: Anxious, Depressed Assessment and Plan - Assessment and Plan (Free Text) Assessment: 77 yo female with hx of depression, CKD not on HD, chronic ureteral stents, Type II DM, with recurrent admission to [facility] with recurrent sepsis admitted on 10/20/17 for septic shock now resolved and discharged to TCU for PT while awaiting for safe discharge. All the recurrent admissions to [facility] are due to pt's manifestation of depression and possible suicidal gestures. Pt was screened by [facility] twice for involuntary admission but she is not a candidate. Per psychiatry evaluation, pt has medical decision making capacity. Today, Pt agrees to go to [facility]. Plan: Major Depression 1- Continue with lexapro 10 mg po daily 2- Psych recommendations appreciated 3- Pt was re-screened over the weekend for involuntary admission but has not been accepted. 4- Psychiatry evaluation states pt's has the medical decision making capacity and patient continues to refuse psychiatry admission. Weakness/Deconditioing 1- Continue physical therapy in TCU Multiple ulcers- Continue current management wound care and podiatry on board 1- DTI present on Sacrum, stable 2- R foot: localized erythema (DTI) in plantar aspect of great toe and right heel resolving. 3- L foot: Stage 2 pressure ulcer noted on medial aspect of heel, stable. 4- Will replace Clay every 10 days to prevent UTI- Need for chronic clay because of chronic sacral ulcers and patient being chronically bed bound 5-Podiatry consult appreciated. CKD Stage IV with ureteral stent- Chronic 1- Not on HD - Pt offered Fistula placement and Dialysis but declines at this time 2- Continue to monitor labs weekly 3- Low K+ diet 4- Nephrology and Urology recommendation appreciated Anemia of chronic disease 1- Completed I.V. venofer for 10 days recently 2- Hb is 11.0 3- Monitor CBC Hypertension- Chronic 1- Well controlled Type II DM- Chronic - Start levemir 8 units pm - Continue current management DVT prophlaxis 1- Heparin 5000 units SC BID Code status 1- DNR/DNI <Jose Juan Boswell - Last Filed: 11/22/17 07:03> Objective - Vital Signs/Intake and Output Vital Signs (last 24 hours): Temp Pulse Resp BP Pulse Ox 98.6 F 83 20 122/67 99 11/21/17 15:59 11/21/17 15:59 11/21/17 15:59 11/21/17 15:59 11/21/17 15:59 - Labs Labs: 11/21/17 06:40 11/21/17 06:40 Attending/Attestation - Attestation I have personally seen and examined this patient.: Yes I have fully participated in the care of the patient.: Yes I have reviewed all pertinent clinical information, including history, physical exam and plan: Yes
[2017-11-20] MEDS ORDERED: Insulin Detemir 100 Units/ml Inj SC SCH (22:00)
[2017-11-21] MEDS: Proshield Plus GEL TOP SCH ×2 (05:26→09:38)
[2017-11-21] MEDS: Insulin Regular 100 units/ml SC SCH ×3 (06:54→16:06)
[2017-11-21 07:46] LABS: CALCIUM 9.1 mg/dL (8.4-10.2); HEMOGLOBIN 12.7 g/dL (12.0-16.0); MEAN CELL VOLUME 91.6 fl (81.0-99.0); MEAN CORPUSCULAR HEMOGLOBIN 28.4 pg (27.0-31.0); RBC 4.45 Mil/uL (3.80-5.20); RED CELL DISTRIBUTION WIDTH 16.8 % (11.5-14.5); WHITE BLOOD COUNT 8.9 K/uL (4.8-10.8)
--- NOTE | 2017-11-21 08:00 | CP.PCM.PN ---
Subjective - Date & Time of Evaluation Date of Evaluation: 11/21/17 Time of Evaluation: 07:59 - Subjective Subjective: Podiatry Progress note: Dr. Conley 77 year old female patient was seen and evaluated in TCU for left heel pressure ulcer on the right heel and deep tissue injury on the left heel. Patient resting in bed comfortably, and in NAD. No acute events overnight. Dressings remain clean/dry/intact with multipodus boots present. Denies N/V/F/D/C/SOB/ [place]. Offers no other complaints. Objective - Vital Signs/Intake and Output Vital Signs (last 24 hours): Temp Pulse Resp BP Pulse Ox 98.1 F 69 20 114/61 97 11/20/17 20:43 11/20/17 20:43 11/20/17 20:43 11/20/17 20:43 11/20/17 20:43 Intake and Output: 11/21/17 11/21/17 06:59 18:59 Output Total 1250 Balance -1250 - Medications Medications: Current Medications Acetaminophen (Tylenol 325mg Tab) 650 mg PO Q4 PRN PRN Reason: Pain, Mild (1-3) Last Admin: 11/15/17 11:18 Dose: 650 mg Aspirin (Ecotrin) 81 mg PO DAILY [facility] Last Admin: 11/20/17 08:20 Dose: 81 mg Atorvastatin Calcium (Lipitor) 40 mg PO DAILY@2100 [facility] Last Admin: 11/20/17 21:17 Dose: 40 mg Dimethicone (Proshield Plus Skin Protectant) 1 applic TOP Q8 [facility] Last Admin: 11/21/17 05:26 Dose: 1 applic Ergocalciferol (Drisdol 50,000 Intl Units Cap) 1 cap PO Q7D [facility] Last Admin: 11/15/17 16:33 Dose: 1 cap Escitalopram Oxalate (Lexapro) 10 mg PO DAILY [facility] Last Admin: 11/20/17 08:21 Dose: 10 mg Heparin Sodium (Porcine) (Heparin) 5,000 units SC Q12 [facility] PRN Reason: Protocol Last Admin: 11/20/17 21:17 Dose: 5,000 units Insulin Detemir (Levemir) 8 units SC HS [facility] Last Admin: 11/20/17 21:19 Dose: 8 units Insulin Human Regular (Humulin R) 0 units SC ACHS [facility] PRN Reason: Protocol Last Admin: 11/21/17 06:54 Dose: Not Given Lidocaine (Lidoderm) 1 ea TD DAILY [facility] Last Admin: 11/20/17 08:21 Dose: 1 ea Nystatin (Mycostatin Cream) 1 applic TOP 0900,1700,2100 [facility] Last Admin: 11/20/17 21:23 Dose: 1 applic Silver Sulfadiazine (Silvadene 1% 20 Gm) 1 ea TOP DAILY [facility] Last Admin: 11/20/17 08:22 Dose: 1 each Sodium Bicarbonate (Sodium Bicarbonate Tab) 650 mg PO BID [facility] Last Admin: 11/20/17 16:56 Dose: 650 mg - Labs Labs: 11/21/17 06:40 11/21/17 06:40 - Constitutional Appears: Well, Non-toxic, No Acute Distress - Extremities Exam Additional comments: Bilateral LE focused exam: VASC: DP/PT pulses are palpable 1/4 B/L. Cap refill time: < 3 seconds to all digits. Skin temperature warm to cool from proximal to distal. no pitting or non -pitting edema noted to b/l LE DERM: wound measuring approx. 4.0 cm x 3.5 cm x <0.1 cm at posterior-plantar aspect of the right heel with sloughing superficial epidermal layer extending laterally - the sloughing epidermal layer appears macerated and hyperpigmented due to underlying DTI, mild serous drainage noted with wound base fully granular, mild jatin-wound maceration noted, no tunneling, no probe to bone, no malodor, no jatin-wound erythema, no fluctuance, no clinical suspicion of infection; Deep tissue injury noted on the medial aspect of the 1st MTPJ on the right with hyperpigmented skin layer; deep tissue injury noted on the left posterior lateral heel as well as head of the 5th metatarsal, no clinical suspicion of active infection at any site NEURO: Epicritic and protective sensation mildly diminished ORTHO: Minimal pain on palpation of the wound site - Neurological Exam Neurological Exam: Alert, Awake, Oriented x3 - Psychiatric Exam Psychiatric exam: Normal Affect, Normal Mood Assessment and Plan - Assessment and Plan (Free Text) Assessment: 77 year old female evaluated for 1) Right heel ulcer 2) multiple deep tissue injury all secondary to pressure/bed bound status Plan: Patient seen and evaluated Discussed with attending Dr. Conley Afebrile; WBC @ 8.9 No clinical signs of infection noted to right heel ulcer Continue local wound care: R foot = Silvadene, DSD/L foot = Allevyn pad Multipodus boots to be worn at all times while in bed Heel off loading shoes ordered - WBAT in the shoe during therapy IV abx as per ID Medical management as per primary team Patient is stable from podiatry standpoint - follow up with Dr. Conley in the wound care center upon discharge Podiatry will conitnue to follow
[2017-11-21] MEDS: Lidocaine 5% Patch TD SCH (09:18)
[2017-11-21] MEDS: Silver Sulfadiazine 1% Cream (20 gm) TOP SCH (09:37)
--- NOTE | 2017-11-21 12:28 | CP.PCM.PN ---
<[place] - Last Filed: 11/21/17 12:26> Subjective - Date & Time of Evaluation Date of Evaluation: 11/21/17 Time of Evaluation: 07:15 - Subjective Subjective: Patient seen and examined at bedside in the morning. No acute overnight events. States she is doing well. Pt is eating and drinking normally. Improving with PT/OT. Has Clay in place. Denies any cough, chest pain, dyspnea, abdominal pain , headache, dizziness, fever or chills. Pt agrees to go to [facility], awaiting placement. Objective - Vital Signs/Intake and Output Vital Signs (last 24 hours): Temp Pulse Resp BP Pulse Ox 98.1 F 78 20 138/73 98 11/21/17 08:52 11/21/17 08:52 11/21/17 08:52 11/21/17 08:52 11/21/17 08:52 Intake and Output: 11/21/17 11/21/17 06:59 18:59 Output Total 1250 Balance -1250 - Medications Medications: Current Medications Acetaminophen (Tylenol 325mg Tab) 650 mg PO Q4 PRN PRN Reason: Pain, Mild (1-3) Last Admin: 11/15/17 11:18 Dose: 650 mg Aspirin (Ecotrin) 81 mg PO DAILY [facility] Last Admin: 11/21/17 09:17 Dose: 81 mg Atorvastatin Calcium (Lipitor) 40 mg PO DAILY@2100 [facility] Last Admin: 11/20/17 21:17 Dose: 40 mg Dimethicone (Proshield Plus Skin Protectant) 1 applic TOP Q8 [facility] Last Admin: 11/21/17 09:38 Dose: 1 applic Ergocalciferol (Drisdol 50,000 Intl Units Cap) 1 cap PO Q7D [facility] Last Admin: 11/15/17 16:33 Dose: 1 cap Escitalopram Oxalate (Lexapro) 10 mg PO DAILY [facility] Last Admin: 11/21/17 09:17 Dose: 10 mg Heparin Sodium (Porcine) (Heparin) 5,000 units SC Q12 [facility] PRN Reason: Protocol Last Admin: 11/21/17 09:17 Dose: 5,000 units Insulin Detemir (Levemir) 8 units SC HS [facility] Last Admin: 11/20/17 21:19 Dose: 8 units Insulin Human Regular (Humulin R) 0 units SC ACHS [facility] PRN Reason: Protocol Last Admin: 11/21/17 11:47 Dose: 6 units Lidocaine (Lidoderm) 1 ea TD DAILY [facility] Last Admin: 11/21/17 09:18 Dose: 1 ea Nystatin (Mycostatin Cream) 1 applic TOP 0900,1700,2100 [facility] Last Admin: 11/21/17 09:38 Dose: 1 applic Silver Sulfadiazine (Silvadene 1% 20 Gm) 1 ea TOP DAILY [facility] Last Admin: 11/21/17 09:37 Dose: 1 each Sodium Bicarbonate (Sodium Bicarbonate Tab) 1,300 mg PO TID [facility] - Labs Labs: 11/21/17 06:40 11/21/17 06:40 - Additional Findings Additional findings: - Constitutional Appears: No Acute Distress - ENT Exam ENT Exam: Mucous Membranes Moist - Neck Exam Neck Exam: Normal Inspection - Respiratory Exam Respiratory Exam: Clear to Auscultation Bilateral, NORMAL BREATHING PATTERN. absent: Rales, Rhonchi, Wheezes - Cardiovascular Exam Cardiovascular Exam: REGULAR RHYTHM, RRR, +S1, +S2 - GI/Abdominal Exam GI & Abdominal Exam: Soft, Normal Bowel Sounds. absent: Tenderness - Extremities Exam Additional comments: Has resting tremor on B/L hands. - Neurological Exam Neurological Exam: Alert, Awake, Oriented x3 - Psychiatric Exam Psychiatric exam: Anxious, Depressed Assessment and Plan - Assessment and Plan (Free Text) Assessment: Assessment: 77 yo female with hx of depression, CKD not on HD, chronic ureteral stents, Type II DM, with recurrent admission to [facility] with recurrent sepsis admitted on 10/20/17 for septic shock now resolved and discharged to TCU for PT while awaiting for safe discharge. All the recurrent admissions to [facility] are due to pt's manifestation of depression and possible suicidal gestures. Pt was screened by [facility] twice for involuntary admission but she is not a candidate. Per psychiatry evaluation, pt has medical decision making capacity. Pt agrees to go to [facility], awaiting placement. Plan: Major Depression 1- Continue with lexapro 10 mg po daily 2- Psych recommendations appreciated 3- Pt was re-screened over the weekend for involuntary admission but has not been accepted. 4- Psychiatry evaluation states pt's has the medical decision making capacity and patient continues to refuse psychiatry admission. Weakness/Deconditioing 1- Continue physical therapy in TCU 2- pt agrees to go to [facility], awaiting placement. Multiple ulcers- Continue current management wound care and podiatry on board 1- DTI present on Sacrum, stable 2- R foot: localized erythema (DTI) in plantar aspect of great toe and right heel resolving. 3- L foot: Stage 2 pressure ulcer noted on medial aspect of heel, stable. 4- Will replace Clay every 10 days to prevent UTI- Need for chronic clay because of chronic sacral ulcers and patient being chronically bed bound 5-Podiatry consult appreciated. CKD Stage IV with ureteral stent- Chronic 1- Not on HD - Pt offered Fistula placement and Dialysis but declines at this time 2- Continue to monitor labs weekly 3- Low K+ diet 4- Nephrology and Urology recommendation appreciated Anemia of chronic disease 1- Completed I.V. venofer for 10 days recently 2- Hb is 11.0 3- Monitor CBC Hypertension- Chronic 1- Well controlled Type II DM- Chronic -Continue levemir 8 units pm -Continue SSI -Continue current management DVT prophlaxis 1- Heparin 5000 units SC BID Code status 1- DNR/DNI <Jose Juan Boswell - Last Filed: 11/22/17 07:03> Objective - Vital Signs/Intake and Output Vital Signs (last 24 hours): Temp Pulse Resp BP Pulse Ox 98.6 F 83 20 122/67 99 11/21/17 15:59 11/21/17 15:59 11/21/17 15:59 11/21/17 15:59 11/21/17 15:59 - Labs Labs: 11/21/17 06:40 11/21/17 06:40 Attending/Attestation - Attestation I have personally seen and examined this patient.: Yes I have fully participated in the care of the patient.: Yes I have reviewed all pertinent clinical information, including history, physical exam and plan: Yes
--- NOTE | 2017-11-21 13:08 | CP.PCM.DIS ---
<Sultan Jerry - Last Filed: 11/21/17 18:48> Provider - Provider Date of Admission: 11/08/17 15:12 Attending physician: Jose Juan Boswell MD Time Spent in preparation of Discharge (in minutes): 30 Diagnosis - Discharge Diagnosis (1) Depression Status: Chronic (2) Acute on chronic renal failure Status: Acute (3) Obstructive uropathy Status: Acute Priority: Medium (4) Uncontrolled diabetes mellitus Status: Chronic (5) Retained ureteral stent Status: Resolved Priority: Medium Hospital Course - Lab Results Lab Results: Micro Results 11/10/17 14:28 Urine,Clay Urine Culture - Final No Growth (<1,000 CFU/ML) Most Recent Lab Values WBC 8.9 K/uL (4.8-10.8) 11/21/17 06:40 RBC 4.45 Mil/uL (3.80-5.20) 11/21/17 06:40 Hgb 12.7 g/dL (12.0-16.0) 11/21/17 06:40 Hct 40.8 % (34.0-47.0) 11/21/17 06:40 MCV 91.6 fl (81.0-99.0) 11/21/17 06:40 MCH 28.4 pg (27.0-31.0) 11/21/17 06:40 MCHC 31.0 g/dL (33.0-37.0) L 11/21/17 06:40 RDW 16.8 % (11.5-14.5) H 11/21/17 06:40 Plt Count 355 K/uL (130-400) 11/21/17 06:40 MPV 7.6 fl (7.2-11.7) 11/14/17 06:20 Neut % (Auto) 54.7 % (50.0-75.0) 11/14/17 06:20 Lymph % (Auto) 28.9 % (20.0-40.0) 11/14/17 06:20 [place] % (Auto) 9.4 % (0.0-10.0) 11/14/17 06:20 Eos % (Auto) 4.9 % (0.0-4.0) H 11/14/17 06:20 Baso % (Auto) 2.1 % (0.0-2.0) H 11/14/17 06:20 Neut # (Auto) 4.3 K/uL (1.8-7.0) 11/14/17 06:20 Lymph # (Auto) 2.3 K/uL (1.0-4.3) 11/14/17 06:20 [place] # (Auto) 0.7 K/uL (0.0-0.8) 11/14/17 06:20 Eos # (Auto) 0.4 K/uL (0.0-0.7) 11/14/17 06:20 Baso # (Auto) 0.2 K/uL (0.0-0.2) 11/14/17 06:20 Sodium 139 mmol/l (132-148) 11/21/17 06:40 Potassium 5.0 MMOL/L (3.6-5.0) 11/21/17 06:40 Chloride 105 mmol/L (98-107) 11/21/17 06:40 Carbon Dioxide 17 mmol/L (22-30) L 11/21/17 06:40 Anion Gap 22 (10-20) H 11/21/17 06:40 BUN 91 mg/dl (7-17) H 11/21/17 06:40 Creatinine 2.9 mg/dl (0.7-1.2) H 11/21/17 06:40 Est GFR ( Amer) 19 11/21/17 06:40 Est GFR (Non-Af Amer) 16 11/21/17 06:40 POC Glucose (mg/dL) 338 mg/dL (65-110) H 11/21/17 11:17 Random Glucose 172 mg/dL (65-105) H 11/21/17 06:40 Calcium 9.1 mg/dL (8.4-10.2) 11/21/17 06:40 Albumin 3.0 g/dL (3.5-5.0) L D 11/16/17 05:30 Albumin/Globulin Ratio 0.54 11/10/17 19:30 Qfkzd-5-Rbpuuiclv 6.0 Relative % 11/10/17 19:30 Ygfug-7-Ffomikoas 16.9 Relative % 11/10/17 19:30 Beta Globulins 24.2 Relative % 11/10/17 19:30 Gamma Globulins 17.7 Relative % 11/10/17 19:30 Urine Color Yellow (YELLOW) 11/10/17 14:28 Urine Clarity Turbid (Clear) 11/10/17 14:28 Urine pH 7.0 (5.0-8.0) 11/10/17 14:28 Ur Specific [place] 1.012 (1.003-1.030) 11/10/17 14:28 Urine Protein 100 mg/dL (NEGATIVE) 11/10/17 14:28 Urine Glucose (UA) 150 mg/dL (Normal) 11/10/17 14:28 Urine Ketones Negative mg/dL (NEGATIVE) 11/10/17 14:28 Urine Blood Moderate (NEGATIVE) 11/10/17 14:28 Urine Nitrate Negative (NEGATIVE) 11/10/17 14: Urine Bilirubin Negative (NEGATIVE) 11/10/17 14: Urine Urobilinogen 0.2-1.0 mg/dL (0.2-1.0) 11/10/17 14:28 Ur Leukocyte Esterase Large Emilio/uL (Negative) 11/10/17 14:28 Urine RBC (Auto) 90 /hpf (0-3) H 11/10/17 14:28 Urine WBC Clumps (Auto) Many /hpf (NONE) H 11/10/17 14:28 Urine Microscopic WBC 1058 /hpf (0-5) H 11/10/17 14:28 Ur Renal Epithelial Cell 2 /hpf (0-3) 11/10/17 14:28 Urine Bacteria Rare (<OCC) 11/10/17 14:28 Urine Creatinine 0.46 g/L 11/10/17 19:30 Ur Creatinine 24 Hour 0.99 g/24 h (0.63-2.50) 11/10/17 19:30 Ur Total Protein 24 Hr 2434 mg/24 h (<150) H 11/10/17 19:30 Protein/Creat Ratio 24h 2466 mg/g creat (</=84) H 11/10/17 19:30 Urine Total Protein 1132 mg/L (50-240) H 11/10/17 19:30 Urine Albumin (PEP) 35.2 Relative % 11/10/17 19:30 Ur Protein Fractions See note 11/10/17 19:30 - Hospital Course Hospital Course: 77 y/o female with PMHx uncontrolled IDDM2, HTN, CKD4, Hydronephrosis s/p bilateral stenting, chronic kidney disease( no in Dialysis) who was brought to ER by EMS on 10/20/17, accompanied by her family for evaluation of altered mental status. As per patient's son. patient has had AMS for the past 2-3 days, constant and worsening, associated with a several day history of moderate to severe abdominal pain associated with NBNB emesis, and diarrheas. In ED, patient found to be tachypneic with AMS and was intubated; also with hyperkalemia and severe metabolic acidosis; Pt was intubated ED, +central line , +dialysis catheter, received 3L NS, +Pus from clay cath insertion attempt, CT abd + acute sigmoid colitis/diverticulitis, and hydroureteronephrosis. Per ID -Vanc, Merrem, Azithromycin. Pt was admitted to ICU until 10/31/17. Pt was successfully extubated on 10/31/17. Hospitalist, aircraft armament mechanic, ID, psychiatry and Urology were on board during tx. Pt received emergency HD for renal failure. Pt received 14 days of meropenem and vancomycin. Pt completed 14 days of fluconaozole for fungurea. Per psychiatry, pt was recommended to have voluntary psychiatry admission due to her depression and neglect of medical care. Pt refused. [facility] screened pt's pt did not meet the criteria for involuntary admission. Pt was then transferred to TCU for additional PT/OT on 11/08/17. While patient was in TCU, psychiatry and nephrolgist were on board. Pt's leg weakness improved with PT/OT. Pt still refusing to have AVF placement. Per psychiatry recommenation, pt was re-screened by [facility] but did not meet the criteria. Pt agrees to go to [facility] for further medical management and rehab. Pt is recommended to f/u with a nitro worker, psychiatrist and a psychologist while in [facility]. ID recommend for Clay change in every 10 days. Discharge medications: Aspirin 81 mg po daily Atorvastatin 40 mg po daily Lexapro 10 mg po daily Sodium bicarbonate 1300 mg po TID (goal of serum bicarb 22-24) Vitamin D 536324 IU 1 tab po qweekly Glipizide 10 mg po bid ( did not resume while in the hospital) Januvia 25 mg po daily (did not resume while in the hospital) insulin levemir 8 units SC HS Ferrous sulfate 325 mg po daily Discharge Exam - Eye Exam Eye Exam: Normal appearance. absent: Scleral icterus - ENT Exam ENT Exam: Mucous Membranes Moist - Neck Exam Neck exam: Normal Inspection - Respiratory Exam Respiratory Exam: Clear to PA & Lateral, NORMAL BREATHING PATTERN. absent: Rales, Rhonchi, Wheezes - Cardiovascular Exam Cardiovascular Exam: REGULAR RHYTHM, RRR, +S1, +S2 - GI/Abdominal Exam GI & Abdominal Exam: Normal Bowel Sounds, Soft. absent: Tenderness - Extremities Exam Additional comments: resting tremor on B/L hands - Neurological Exam Neurological exam: Alert, Oriented x3 - Psychiatric Exam Psychiatric exam: Depressed Discharge Plan - Follow Up Plan Condition: GOOD Disposition: REHAB FACILITY/REHAB UNIT Additional Instructions: Please follow up with nitro worker, psychiatrist and psychologist while [place] Referrals: Jose Juan Boswell MD [Family Provider] - <Jose Juan Boswell - Last Filed: 11/22/17 07:06> Provider - Provider Date of Admission: 11/08/17 15:12 Attending physician: Jose Juan Boswell MD Hospital Course - Lab Results Lab Results: Micro Results 11/10/17 14:28 Urine,Clay Urine Culture - Final No Growth (<1,000 CFU/ML) Most Recent Lab Values WBC 8.9 K/uL (4.8-10.8) 11/21/17 06:40 RBC 4.45 Mil/uL (3.80-5.20) 11/21/17 06:40 Hgb 12.7 g/dL (12.0-16.0) 11/21/17 06:40 Hct 40.8 % (34.0-47.0) 11/21/17 06:40 MCV 91.6 fl (81.0-99.0) 11/21/17 06:40 MCH 28.4 pg (27.0-31.0) 11/21/17 06:40 MCHC 31.0 g/dL (33.0-37.0) L 11/21/17 06:40 RDW 16.8 % (11.5-14.5) H 11/21/17 06:40 Plt Count 355 K/uL (130-400) 11/21/17 06:40 MPV 7.6 fl (7.2-11.7) 11/14/17 06:20 Neut % (Auto) 54.7 % (50.0-75.0) 11/14/17 06:20 Lymph % (Auto) 28.9 % (20.0-40.0) 11/14/17 06:20 [place] % (Auto) 9.4 % (0.0-10.0) 11/14/17 06:20 Eos % (Auto) 4.9 % (0.0-4.0) H 11/14/17 06:20 Baso % (Auto) 2.1 % (0.0-2.0) H 11/14/17 06:20 Neut # (Auto) 4.3 K/uL (1.8-7.0) 11/14/17 06:20 Lymph # (Auto) 2.3 K/uL (1.0-4.3) 11/14/17 06:20 [place] # (Auto) 0.7 K/uL (0.0-0.8) 11/14/17 06:20 Eos # (Auto) 0.4 K/uL (0.0-0.7) 11/14/17 06:20 Baso # (Auto) 0.2 K/uL (0.0-0.2) 11/14/17 06:20 Sodium 139 mmol/l (132-148) 11/21/17 06:40 Potassium 5.0 MMOL/L (3.6-5.0) 11/21/17 06:40 Chloride 105 mmol/L (98-107) 11/21/17 06:40 Carbon Dioxide 17 mmol/L (22-30) L 11/21/17 06:40 Anion Gap 22 (10-20) H 11/21/17 06:40 BUN 91 mg/dl (7-17) H 11/21/17 06:40 Creatinine 2.9 mg/dl (0.7-1.2) H 11/21/17 06:40 Est GFR ( Amer) 19 11/21/17 06:40 Est GFR (Non-Af Amer) 16 11/21/17 06:40 POC Glucose (mg/dL) 157 mg/dL (65-110) H 11/21/17 15:30 Random Glucose 172 mg/dL (65-105) H 11/21/17 06:40 Calcium 9.1 mg/dL (8.4-10.2) 11/21/17 06:40 Albumin 3.0 g/dL (3.5-5.0) L D 11/16/17 05:30 Albumin/Globulin Ratio 0.54 11/10/17 19:30 Dtslm-6-Bxoaledmq 6.0 Relative % 11/10/17 19:30 Fvthp-2-Nlmneugue 16.9 Relative % 11/10/17 19:30 Beta Globulins 24.2 Relative % 11/10/17 19:30 Gamma Globulins 17.7 Relative % 11/10/17 19:30 Urine Color Yellow (YELLOW) 11/10/17 14:28 Urine Clarity Turbid (Clear) 11/10/17 14:28 Urine pH 7.0 (5.0-8.0) 11/10/17 14:28 Ur Specific [place] 1.012 (1.003-1.030) 11/10/17 14:28 Urine Protein 100 mg/dL (NEGATIVE) 11/10/17 14:28 Urine Glucose (UA) 150 mg/dL (Normal) 11/10/17 14:28 Urine Ketones Negative mg/dL (NEGATIVE) 11/10/17 14:28 Urine Blood Moderate (NEGATIVE) 11/10/17 14:28 Urine Nitrate Negative (NEGATIVE) 11/10/17 14:28 Urine Bilirubin Negative (NEGATIVE) 11/10/17 14:28 Urine Urobilinogen 0.2-1.0 mg/dL (0.2-1.0) 11/10/17 14:28 Ur Leukocyte Esterase Large Emilio/uL (Negative) 11/10/17 14:28 Urine RBC (Auto) 90 /hpf (0-3) H 11/10/17 14:28 Urine WBC Clumps (Auto) Many /hpf (NONE) H 11/10/17 14:28 Urine Microscopic WBC 1058 /hpf (0-5) H 11/10/17 14:28 Ur Renal Epithelial Cell 2 /hpf (0-3) 11/10/17 14:28 Urine Bacteria Rare (<OCC) 11/10/17 14:28 Urine Creatinine 0.46 g/L 11/10/17 19:30 Ur Creatinine 24 Hour 0.99 g/24 h (0.63-2.50) 11/10/17 19:30 Ur Total Protein 24 Hr 2434 mg/24 h (<150) H 11/10/17 19:30 Protein/Creat Ratio 24h 2466 mg/g creat (</=84) H 11/10/17 19:30 Urine Total Protein 1132 mg/L (50-240) H 11/10/17 19:30 Urine Albumin (PEP) 35.2 Relative % 11/10/17 19:30 Ur Protein Fractions See note 11/10/17 19:30 Attending/Attestation - Attestation I have personally seen and examined this patient.: Yes I have fully participated in the care of the patient.: Yes I have reviewed all pertinent clinical information, including history, physical exam and plan: Yes
[2017-11-21 16:00] VITALS: BP 122/67; PULSE 83; TEMP 98.6; O2SAT 99
== END 2017-11-21 16:00 | DRG 683 ==
LOC: H.TCU 15:12
PROVIDERS: ADMIT Family Medicine; ATTEND Family Medicine
PROC: F07Z9FZ Gait Training/Functional Ambulation Treatment using Assistive, Adaptive, Supportive or Protective Equipment (ICD-10-PCS; principal; 2017-11-08)
PROC: F07Z5FZ Bed Mobility Treatment using Assistive, Adaptive, Supportive or Protective Equipment (ICD-10-PCS; 2017-11-08)
PROC: F07Z8FZ Transfer Training Treatment using Assistive, Adaptive, Supportive or Protective Equipment (ICD-10-PCS; 2017-11-08)
PROC: F08Z0FZ Bathing/Showering Techniques Treatment using Assistive, Adaptive, Supportive or Protective Equipment (ICD-10-PCS; 2017-11-08)
PROC: F07L6FZ Therapeutic Exercise Treatment of Musculoskeletal System - Lower Back / Lower Extremity using Assistive, Adaptive, Supportive or Protective Equipment (ICD-10-PCS; 2017-11-08)
DX: N17.9 Acute kidney failure, unspecified (principal); F33.9 Major depressive disorder, recurrent, unspecified; E87.2 Acidosis; E11.65 Type 2 diabetes mellitus with hyperglycemia; E11.22 Type 2 diabetes mellitus with diabetic chronic kidney disease; I12.9 Hypertensive chronic kidney disease with stage 1 through stage 4 chronic kidney disease, or unspecified chronic kidney disease; N18.4 Chronic kidney disease, stage 4 (severe); Z79.4 Long term (current) use of insulin; N13.9 Obstructive and reflux uropathy, unspecified; E11.21 Type 2 diabetes mellitus with diabetic nephropathy; N13.30 Unspecified hydronephrosis; Z66 Do not resuscitate; D63.1 Anemia in chronic kidney disease; E55.9 Vitamin D deficiency, unspecified; L89.622 Pressure ulcer of left heel, stage 2; E87.5 Hyperkalemia; J44.9 Chronic obstructive pulmonary disease, unspecified

== ENCOUNTER 2018-01-15 07:52 | Day surgery (SDC) | payer MEDICARE ==
[2018-01-15 08:05] VITALS: O2SAT 99
[2018-01-15 08:12] VITALS: BMI 25.8
[2018-01-15] MEDS ORDERED: Propofol 10 mg/ml Inj (20 ML) ONE (09:16)
[2018-01-15] MEDS ORDERED: Midazolam 2 MG/2 ML VIAL ONE (09:16)
[2018-01-15] MEDS ORDERED: Lactated Ringer's 1,000 ML IV ONE (09:20)
[2018-01-15] MEDS ORDERED: cefTRIAXone (Rocephin) 1 gm Inj ONE (09:25)
[2018-01-15] MEDS ORDERED: Lactated Ringer's 1,000 ML IV SCH (11:15)
[2018-01-15 12:48] VITALS: RESP 18
[2018-01-15 14:29] VITALS: BP 158/89; PULSE 70; TEMP 97.6
--- NOTE | 2018-01-15 16:24 | RAD ---
PROCEDURE: Intraoperative Fluoroscopy. HISTORY: CYSTO FINDINGS: Fluoroscopic assistance was provided for cystography and stent placements. Please refer to the operative report from JUAN ANTONIO Naidu.
--- NOTE | 2018-01-16 09:27 | OP ---
PROCEDURE DATE: 01/15/2018 SURGEON: Irlanda Valentine MD PREOPERATIVE DIAGNOSIS: Bilateral hydronephrosis with existing J stent. POSTOPERATIVE DIAGNOSIS: Bilateral hydronephrosis with existing J stent. PROCEDURE PERFORMED: Cystoscopy with removal and replacement of bilateral J stents. DESCRIPTION OF PROCEDURE: The patient was placed on the operating room table in dorsal lithotomy position, given general anesthesia. The area of the groin was draped and prepped in a sterile manner. Using a #21 cystoscope, I entered into the bladder atraumatically. I identified the right ureteral orifice and ureteral double-J stent. Using the grasping forceps, I removed part of it. I then through that existing stent, I inserted a sensor wire. Under fluoroscopy, I positioned it into good place into the renal pelvis. Following this, removed the old stent and replaced a new 6-[place] multi-link double-J stent in fluoroscopically good position. I did the same procedure on the opposite side on the left side, removing the old stent and replacing it with a new stent and both were physically into good position. The patient then was taken from the operating room in good condition. No significant bleeding noted. Irlanda Valentine MD
== END 2018-01-15 14:15 | disposition home or self-care (01) ==
LOC: H.OPSURG 07:52
PROVIDERS: ATTEND Urology
DX: N13.39 Other hydronephrosis (principal)

== ENCOUNTER 2018-03-23 13:42 | Emergency (ER) | payer MEDICARE ==
[2018-03-23 13:42] VITALS: BMI 25.8
[2018-03-23 13:47] VITALS: BP 123/75; PULSE 77; RESP 18; TEMP 98.9; O2SAT 98
--- NOTE | 2018-03-23 14:08 | ED PDOC ---
HPI: Female Pain Time Seen by Provider: 03/23/18 13:59 Chief Complaint (Nursing): Female Genitourinary Chief Complaint (Provider): Female Genitourinary History Per: Patient History/Exam Limitations: no limitations Onset/Duration Of Symptoms: Days (x2) Current Symptoms Are (Timing): Still Present Additional Complaint(s): 77 year old female with pmHx of chronic kidney disease and diabetes, presents to ED with complaints of persistent bloody urine and lower abdominal pain for 2 days associated with decreased appetite. Patient denies any similar symptoms in the past, recent infection, radiation of pain, painful urination, nausea, vomiting, fever, chills, chest or back pain. She reports experiencing urine frequency but states it has been an ongoing issue since having ureteral stents placed by Dr. Valentine a year ago. PMD: Dr. Jose Juan Boswell Past Medical History Reviewed: Historical Data, Nursing Documentation, Vital Signs Vital Signs: Last Vital Signs Temp 98.9 F 03/23/18 13:45 Pulse 77 03/23/18 13:45 Resp 18 03/23/18 13:45 BP 123/75 03/23/18 13:45 Pulse Ox 98 03/23/18 13:45 - Medical History PMH: Anxiety, Arthritis, COPD, Depression, Diabetes (type II), HTN, Hypercholesterolemia, Pneumonia, Chronic Kidney Disease Denies: HIV - Surgical History Surgical History: Tonsillectomy Denies: No Surg Hx Other surgeries: ureteral stents 2016 - Family History Family History: States: Unknown Family Hx - Social History Current smoker - smoking cessation education provided: No Ex-Smoker (has not smoked in the last 12 months): No Alcohol: None Drugs: Denies - Home Medications Home Medications: Ambulatory Orders Medication Instructions Recorded Aspirin [Ecotrin] 81 mg PO DAILY 09/14/17 Ferrous Sulfate [Feosol] 325 mg PO DAILY 09/14/17 Glipizide [Glipizide ER] 10 mg PO BID 09/14/17 Memantine [Namenda] 5 mg PO DAILY 09/14/17 Multivitamin [Daily Evon] 1 tab PO DAILY 09/14/17 SITagliptin [Januvia] 25 mg PO DAILY 09/14/17 Valsartan [Diovan] 80 mg PO DAILY 09/14/17 Silver Sulfadiazine 1% 50 gm 1 applic TOP DAILY jar 11/08/17 [Silvadene 1% 50 gm] Acetaminophen [Tylenol 325mg tab] 650 mg PO Q4 PRN tab 11/21/17 Atorvastatin [Lipitor] 40 mg PO DAILY@2100 tab 11/21/17 Dimethicone [Proshield Plus Skin 1 applic TOP Q8 gel 11/21/17 Protectant] Ergocalciferol [Drisdol 50,000 1 cap PO Q7D cap 11/21/17 Intl Units Cap] Escitalopram [Lexapro] 10 mg PO DAILY tab 11/21/17 Insulin Detemir [Levemir] 8 units SC HS vial 11/21/17 Lidocaine 5% [Lidoderm] 1 ea TD DAILY patch 11/21/17 Sodium Bicarbonate Tab 1,300 mg PO TID tab 11/21/17 Ciprofloxacin [Cipro] 1 tab PO BID 01/15/18 Nitrofurantoin Macrocrystals 100 mg PO BID #14 cap 03/23/18 [Macrobid] - Allergies Allergies/Adverse Reactions: Allergies Allergy/AdvReac Type Severity Reaction Status Date / Time No Known Allergies Allergy Verified 03/23/18 13:44 Review of Systems ROS Statement: Except As Marked, All Systems Reviewed And Found Negative Constitutional: Negative for: Fever, Chills Cardiovascular: Negative for: Chest Pain Gastrointestinal: Positive for: Abdominal Pain (lower), Other (decreased appetite). Negative for: Nausea, Vomiting Genitourinary Female: Positive for: Frequency (chronic), Hematuria. Negative for: Dysuria Musculoskeletal: Negative for: Back Pain Physical Exam - Reviewed Nursing Documentation Reviewed: Yes Vital Signs Reviewed: Yes - Physical Exam Appears: Positive for: Non-toxic, No Acute Distress Head Exam: Positive for: ATRAUMATIC, NORMAL INSPECTION, NORMOCEPHALIC Skin: Positive for: Normal Color Eye Exam: Positive for: Normal appearance ENT: Positive for: Normal ENT Inspection Neck: Positive for: Normal, Painless ROM, Supple Cardiovascular/Chest: Positive for: Regular Rate, Rhythm, Chest Non Tender Respiratory: Positive for: Normal Breath Sounds. Negative for: Respiratory Distress Gastrointestinal/Abdominal: Positive for: Soft, Tenderness (suprapubic mildly) Back: Positive for: Normal Inspection. Negative for: L CVA Tenderness, R CVA Tenderness Extremity: Positive for: Normal ROM (upper/lower) Neurologic/Psych: Positive for: Alert, Oriented (x3). Negative for: Motor/ Sensory Deficits - ECG O2 Sat by Pulse Oximetry: 98 (RA) Pulse Ox Interpretation: Normal Medical Decision Making Medical Decision Making: Time: 1408 Initial Plan: * Urine dipstick * Urine culture * UA Scribe Attestation: Documented by Annelise Bowman, acting as a scribe for Becky Ruiz MD. Provider Scribe Attestation: All medical record entries made by the Scribe were at my direction and personally dictated by me. I have reviewed the chart and agree that the record accurately reflects my personal performance of the history, physical exam, medical decision making, and the department course for this patient. I have also personally directed, reviewed, and agree with the discharge instructions and disposition. Disposition - Clinical Impression Clinical Impression: Cystitis - Patient ED Disposition Is Patient to be Admitted: No Doctor Will See Patient In The: Office Counseled Patient/Family Regarding: Diagnosis, Need For Followup, Rx Given - Disposition Referrals: Irlanda Valentine MD [Medical Doctor] - Disposition: Routine/Home Disposition Time: 15:02 Condition: STABLE Prescriptions: Nitrofurantoin Macrocrystals [Macrobid] 100 mg PO BID #14 cap Instructions: Urinary Tract Infections in Adults Forms: [facility] (Guyanese) - POA Present On Arrival: None
[2018-03-23 15:24] LABS: SQUAMOUS EPITHIAL 10 /hpf (0-5); URINE BACTERIA MANY (<OCC); URINE BILIRUBIN NEGATIVE (NEGATIVE); URINE BLOOD LARGE (NEGATIVE); URINE CLARITY CLOUDY (Clear); URINE COLOR RED (YELLOW); URINE GLUCOSE (UA) NEG (Normal); URINE LEUKOCYTE ESTERASE LARGE Leu/uL (Negative); URINE PROTEIN 100 mg/dL (NEGATIVE); URINE UROBILINOGEN 0.2-1.0 mg/dL (0.2-1.0); WBC CLUMPS MOD /hpf
== END 2018-03-23 15:45 | disposition home or self-care (01) ==
LOC: H.ER 13:42
DX: N30.90 Cystitis, unspecified without hematuria (principal)

== ENCOUNTER 2018-04-25 07:20 | Day surgery (SDC) | payer MEDICARE ==
[2018-04-23 13:43] VITALS: BMI 23.7
[2018-04-25] MEDS: Lactated Ringer's 1,000 ML IV ONE (08:00)
[2018-04-25 08:47] LABS: CALCIUM 9.1 mg/dL (8.4-10.2)
[2018-04-25] MEDS ORDERED: Midazolam 2 MG/2 ML VIAL ONE (09:40)
[2018-04-25] MEDS ORDERED: Etomidate 20 mg/10ml Inj IV ONE (09:40)
[2018-04-25] MEDS ORDERED: Propofol 10 mg/ml Inj (20 ML) ONE (09:40)
[2018-04-25] MEDS: cefTRIAXone (Rocephin) 1 gm Inj ONE (10:00)
[2018-04-25] MEDS ORDERED: ePHEDrine 50 mg/ml Inj ONE (10:05)
[2018-04-25] MEDS ORDERED: HYDROmorphone 0.5 mg/0.5 ml ISec IVP PRN (10:32)
[2018-04-25] MEDS ORDERED: Dexamethasone 4 mg/1 ml IVP PRN (10:32)
[2018-04-25 13:19] VITALS: TEMP 97.7
[2018-04-25 14:21] VITALS: BP 107/52; PULSE 71; RESP 15; O2SAT 95
--- NOTE | 2018-04-25 20:22 | OP ---
PROCEDURE DATE: 04/25/2018 PREOPERATIVE DIAGNOSIS: Bilateral hydronephrosis. POSTOPERATIVE DIAGNOSIS: Bilateral hydronephrosis. PROCEDURE PERFORMED: Cystoscopy with replacement of bilateral J stents. DESCRIPTION OF PROCEDURE: The patient was placed on the operating room table in dorsal lithotomy position. She was given general anesthesia. The area of the groin was draped and prepped at this time. A #21 cystoscope was inserted into the bladder. I used a flexible grasper to engage the right ureteral J stent, and I pulled it up into the visual field on the outside. I then through that stent inserted a sensor wire. Under fluoroscopy, I could see it in good position. Following that, over that sensor wire, I replaced it with a new 7-[place] multi-length double J stent. Again fluoroscopy placed it into good position. I did the same procedure on the opposite side. There was no bleeding. There was no unusual findings other than it appears chronic that every time we change the J stent, she has a lot of sediment in her urine which was cleaned out clearly at the onset of case. The patient was taken from the operating room in good condition. Irlanda Valentine MD
--- NOTE | 2018-04-27 14:47 | RAD ---
Date of service: 04/25/2018 PROCEDURE: Intraoperative Fluoroscopy. HISTORY: CYSTOSCOPY FINDINGS: Fluoroscopic assistance was provided for bilateral stent placement. Please refer to the operative report from JUAN ANTONIO Naidu. Total fluoroscopic time (continuous mode) utilized during the procedure twenty-four (seconds).
== END 2018-04-25 14:23 | disposition home or self-care (01) ==
LOC: H.OPSURG 07:20
PROVIDERS: ATTEND Urology
DX: N13.39 Other hydronephrosis (principal); M19.90 Unspecified osteoarthritis, unspecified site; E11.9 Type 2 diabetes mellitus without complications; I10 Essential (primary) hypertension; J44.9 Chronic obstructive pulmonary disease, unspecified
CPT/HCPCS: 36415; 52332; 80048; 82948; C2617; J0696; J2001; J2250; J2405; J2704; J3010; J7120